=== PATIENT | male | born 1975 | race Hispanic/Latino ===

== ENCOUNTER 2018-02-18 18:05 | Emergency (ER) | payer OTHER ==
--- OUTSIDE RECORDS SUMMARY | 2018-02-18 18:07 | XMS REPORT ---
:1975 [facility] Address [address] [place] [address] Dr. Leon [address] [place] [id number] Care Team Providers Name Role Phone Unavailable Unavailable Unavailable Problems This patient has no known problems. Allergies, Adverse Reactions, Alerts This patient has no known allergies or adverse reactions. Medications This patient has no known medications.
--- OUTSIDE RECORDS SUMMARY | 2018-02-18 18:07 | XMS REPORT | Clinical Summary ---
:1975 Author Organization [facility] Address [address] [place] [address] Care Team Providers Name Role Phone Unavailable Primary Care Provider Unavailable Allergies Active Allergy Reactions Severity Noted Date Comments Promethazine 09/12/2017 Medications Not on file Active Problems Problem Noted Date ESRD (end stage renal disease) on dialysis 10/02/2017 Pre-transplant evaluation for chronic kidney disease 10/02/2017 Type 2 diabetes mellitus 10/02/2017 Hypertensive renal disease 10/02/2017 Encounters Date Type Specialty Care Team Description 11/21/2017 Marianne Walker 11/21/2017 Abstract Marianne Peralta 10/07/2017 Office Visit Transplant ESRD (end stage renal disease) on dialysis (HCC); Pre-transplant evaluation for chronic kidney disease; Type 2 diabetes mellitus with chronic kidney disease on chronic dialysis, 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 Chacon he will be here tomorrow for his appt on 10.07.17 but he will call back to get the address and directions he just left dialysis and he per patient he has not received the packet in the mail for the appt) 09/22/2017 Marianne Walker 09/12/2017 Abstract Transplant Marianne Frazier 09/12/2017 Abstract Transplant Marianne Frazier after 02/17/2017 Social History Tobacco Use Types Packs/Day Years Used Date Never Smoker Sex Assigned at Date Recorded Not on file Job Start Date Occupation Industry Not on file Not on file Not on file Travel History Travel Start Travel End No recent travel history available. Last Filed Vital Signs Vital Sign Reading Time Taken Blood Pressure - - Pulse - - Temperature - - Respiratory Rate - - Oxygen Saturation - - Inhaled Oxygen Concentration - - Weight 104.3 kg (230 lb) 09/12/2017 11:12 AM CDT Height 167.6 cm (5' 6") 09/12/2017 11:12 AM CDT Body Mass Index 37.12 09/12/2017 11:12 AM CDT Plan of Treatment Not on file Results Not on fileafter 02/17/2017 Insurance Payer Benefit Plan / Group Subscriber ID Type Phone Address MEDICARE MEDICARE A B xxxxxxxxxx Medicare [employer] xxxxxxxxxx Maps Contracted
[2018-02-18] MEDS ORDERED: ONDANSETRON 4 MG/2 ML VIAL ONE (19:12)
[2018-02-18] MEDS ORDERED: PANTOPRAZOLE 40 MG INJ ONE (19:12)
[2018-02-18 19:40] LABS: Absolute Lymphocytes (CBC) 0.8 K/uL (0.7-4.9); Absolute Monocytes 0.6 K/uL (0.1-1.3); Absolute Neutrophil 6.1 K/uL (1.8-8.0); Basophils % 0.4 % (0-1.3); Eosinophils % 4.2 % (0-4.4); Hematocrit 30.7 % (39.6-49.0); Lymphocytes % 9.9 % (15.3-44.8); MCH 26.1 pg (27.0-35.0); MCV 80.5 fL (80-100); MPV 8.4 fL (7.6-11.3); Monocytes % 7.1 % (3.3-12.3); RBC Red Blood Cell Count 3.82 M/uL (4.33-5.43)
[2018-02-18] MEDS ORDERED: LORazepam 2 MG/ML VIAL ONE (19:52)
[2018-02-18 20:04] LABS: Albumin 3.3 g/dL (3.4-5.0); Bilirubin Direct 0.2 mg/dL (0-0.2); Bilirubin Total 0.7 mg/dL (0.2-1.0); Magnesium 2.4 mg/dL (1.8-2.4); Potassium 4.6 mmol/L (3.5-5.1); Protein, Total 7.8 g/dL (6.4-8.2)
[2018-02-18 20:13] LABS: Anisocytosis 2+; Blood Morphology Comment NOTED (NOT SEEN); Platelet Estimate DECR; Polychromasia 1+; Urine White Blood Cell Casts OK
--- NOTE | 2018-02-18 20:14 | RAD REPORT ---
EXAM DESCRIPTION: Cecilia Single View02/18/2018 7:30 pm CLINICAL HISTORY: Chest pain COMPARISON: 2009 FINDINGS: Mild bilateral pulmonary opacities suspected. The heart is borderline enlarged. IMPRESSION: Mild bilateral pulmonary opacities may represent pulmonary edema or pneumonia
[2018-02-18] MEDS ORDERED: HYDRALAZINE HCL 20 MG/ML VIAL ONE (20:22)
[2018-02-18] MEDS ORDERED: cloNIDine HCl 0.1 MG TAB ONE (21:23)
--- NOTE | 2018-02-18 22:34 | ER ---
Nurse's Notes [facility] Name: Chase Chacon Jr Age: 42 yrs Sex: Male : 1975 Arrival Date: 02/18/2018 Time: 18:08 Bed 18 Private MD: Kyler Ogden Diagnosis: Nausea and vomiting;Hypertensive heart and chronic kidney disease Presentation: 02/18 18:13 Presenting complaint: Patient states: i have been throwing up since this morning, i tw2 throw up every morning with the gastroporesis i have, but today its just all day,i missed dialysis today. Transition of care: patient was not received from another setting of care. Onset of symptoms was February 18, 2018. Risk Assessment: Do you want to hurt yourself or someone else? Patient reports no desire to harm self or others. Initial Sepsis Screen: Does the patient meet any 2 criteria? No. Patient's initial sepsis screen is negative. Does the patient have a suspected source of infection? No. Patient's initial sepsis screen is negative. Care prior to arrival: None. 18:13 Method Of Arrival: Ambulatory tw2 18:13 Acuity: LEON 3 tw2 18:21 Note pt at 97% on 2L NC. tw2 Historical: - Allergies: 18:21 Phenergan; tw2 - Home Meds: 18:21 Novolog Sub-Q 10 10 UNITS AM, 15 UNITS LUNCH AND 10 UNITS AT NIGHT [Active]; tw2 - PMHx: 18:21 Diabetes - NIDDM; ESRD; Gastroparesis; Hypertension; kidney disease; tw2 - Immunization history:: Adult Immunizations. - Social history:: Smoking status: . - Ebola Screening: : Patient denies travel to an Ebola-affected area in the 21 days before illness onset. Screenin:05 Abuse screen: Denies threats or abuse. Denies injuries from another. Nutritional aa1 screening: No deficits noted. Tuberculosis screening: No symptoms or risk factors identified. Fall Risk None identified. Assessment: 19:05 General: Appears in no apparent distress. comfortable, Behavior is calm, cooperative, aa1 appropriate for age. Pain: Denies pain. Neuro: Level of Consciousness is awake, alert, obeys commands, Oriented to person, place, time, situation, Moves all extremities. Speech is normal. Cardiovascular: Denies chest pain, palpitations, shortness of breath, Heart tones S1 S2 present Rhythm is regular. Respiratory: Reports cough that is dry, Airway is patent Respiratory effort is even, unlabored, Respiratory pattern is regular, symmetrical, Breath sounds are clear bilaterally. GI: Abdomen is non-distended, Abd is soft and non tender X 4 quads. Reports nausea, vomiting. : No signs and/or symptoms were reported regarding the genitourinary system. EENT: No signs and/or symptoms were reported regarding the EENT system. Derm: Skin is intact, is healthy with good turgor, Skin is pink, warm \T\ dry. Musculoskeletal: Circulation, motion, and sensation intact. Capillary refill < 3 seconds. 19:40 Reassessment: Pt reports he is feeling anxious and would like something to help with aa1 his anxiety. States he takes Xanax at home; provider notifed. 20:10 Reassessment: Patient appears in no apparent distress at this time. Patient and/or aa1 family updated on plan of care and expected duration. Pain level reassessed. Patient is alert, oriented x 3, equal unlabored respirations, skin warm/dry/pink. BP 205/105, pt states he has not taken his BP medication today; provider notified and pt to be medicated with hydralazine IVP. 21:30 Reassessment: Patient appears in no apparent distress at this time. Patient and/or aa1 family updated on plan of care and expected duration. Pain level reassessed. Patient is alert, oriented x 3, equal unlabored respirations, skin warm/dry/pink. Pt BP remains elevated, will continue to monitor until BP at appropriate level for d/c. 22:53 Reassessment: Patient appears in no apparent distress at this time. Patient is alert, aa1 oriented x 3, equal unlabored respirations, skin warm/dry/pink. Discussed d.c \T\ f/u instructions with pt \T\ family; denies questions or concerns at this time Patient denies pain at this time. Patient states feeling better. Vital Signs: 18:19 BP 195 / 92; Pulse 96; Resp 18; Temp 98.8(O); Pulse Ox 90% on R/A; Pain 8/10; tw2 19:15 BP 199 / 99; Pulse 84; Resp 18; Pulse Ox 98% on R/A; Pain 0/10; aa1 20:10 BP 205 / 105; Pulse 85; Resp 18; Pulse Ox 96% on R/A; Pain 0/10; aa1 20:48 BP 200 / 92; Pulse 86; Resp 18; Pulse Ox 95% on R/A; Pain 0/10; aa1 21:05 BP 189 / 102; Pulse 90; Resp 16; Pulse Ox 95% on R/A; Pain 0/10; aa1 22:00 BP 169 / 90; Pulse 87; Resp 20; Pulse Ox 93% on R/A; Pain 0/10; aa1 18:19 pt placed in w/c and on o2 at this time via 2L tw2 ED Course: 18:08 Patient arrived in ED. sb2 18:08 Kyler Ogden MD is Private Physician. sb2 18:19 Triage completed. tw2 18:20 Arm band placed on Patient placed on oxygen, on pulse oximetry, Emesis basin given. tw2 18:26 Sunny Truong PA is PHCP. cp 18:26 Michael Mackey MD is Attending Physician. cp 19:01 Lisa Rosen, JENNIE is Primary Nurse. aa1 19:05 Patient has correct armband on for positive identification. Bed in low position. Call aa1 light in reach. Pulse ox on. NIBP on. Warm blanket given. 19:15 EKG done, by ED staff, reviewed by Yves Adam MD. aa1 19:20 Initial lab(s) drawn, by nh, sent to lab. Inserted saline lock: 20 gauge in right aa1 antecubital area, using aseptic technique. Blood collected. 22:31 Kyler Ogden MD is Referral Physician. cp 22:31 Referral Physician role handed off by Kyler Ogden MD cp 22:32 Rojas Mccoy DO is Referral Physician. cp 22:53 No provider procedures requiring assistance completed. IV discontinued, intact, aa1 bleeding controlled, No redness/swelling at site. Pressure dressing applied. Administered Medications: 19:20 Drug: ProTONIX 40 mg Route: IVP; Site: right antecubital; aa1 19:22 Drug: Zofran 4 mg Route: IVP; Site: right antecubital; aa1 19:45 Drug: Ativan 0.5 mg Route: IVP; Site: right antecubital; aa1 21:06 Follow up: Response: No adverse reaction; Anxiety decreased aa1 20:18 Drug: hydrALAZINE 10 mg Route: IV; Rate: bolus; Site: right antecubital; aa1 20:20 Follow up: IV Status: Completed infusion aa1 21:17 Drug: cloNIDine 0.2 mg Route: PO; aa1 22:53 Follow up: Response: No adverse reaction; Blood pressure is lowered aa1 Outcome: 22:32 Discharge ordered by . karli 22:53 Discharged to home ambulatory, with family. aa1 22:53 Condition: good 22:53 Discharge instructions given to patient, family, Instructed on discharge instructions, follow up and referral plans. medication usage, Demonstrated understanding of instructions, follow-up care, medications, Prescriptions given X 3. 22:55 Patient left the ED. aa1 Signatures: Lisa Rosen, RN RN aa1 Sunny Truong PA PA cp Wise, Tara, RN RN tw2 Marie Ortiz sb2
--- NOTE | 2018-02-18 22:34 | EDPHYS ---
Physician Documentation [facility] Name: Chase Chacon Jr Age: 42 yrs Sex: Male : 1975 Arrival Date: 02/18/2018 Time: 18:08 Bed 18 Private MD: Kyler Ogden ED Physician Michael Mackey HPI: 02/18 18:55 This 42 yrs old Male presents to ER via Ambulatory with complaints of Vomiting.cp 18:55 The patient presents to the emergency department with nausea, that is moderate, cp vomiting, that is continuous. 18:55 Onset: The symptoms/episode began/occurred this morning. Possible causes: flare up of cp bowel problem, gastroparesis. 18:55 Associated signs and symptoms: Pertinent positives: abdominal pain, nausea, vomiting, cp Pertinent negatives: constipation, diarrhea, fever, GI bleeding. Severity of symptoms: in the emergency department the symptoms are unchanged despite home interventions. The patient has experienced similar episodes in the past, multiple times. Historical: - Allergies: 18:21 Phenergan; tw2 - Home Meds: 18:21 Novolog Sub-Q 10 10 UNITS AM, 15 UNITS LUNCH AND 10 UNITS AT NIGHT [Active]; tw2 - PMHx: 18:21 Diabetes - NIDDM; ESRD; Gastroparesis; Hypertension; kidney disease; tw2 - Immunization history:: Adult Immunizations. - Social history:: Smoking status: . - Ebola Screening: : Patient denies travel to an Ebola-affected area in the 21 days before illness onset. ROS: 19:00 Constitutional: Positive for poor PO intake, Negative for body aches, chills, fever. cp 19:00 Eyes: Negative for injury, pain, redness, and discharge. cp 19:00 ENT: Negative for drainage from ear(s), ear pain, sore throat, difficulty swallowing, difficulty handling secretions. 19:00 Cardiovascular: Negative for chest pain, edema, palpitations. 19:00 Respiratory: Negative for cough, shortness of breath, wheezing. 19:00 Abdomen/GI: Positive for abdominal pain, nausea and vomiting, Negative for diarrhea, constipation, hematemesis, black/tarry stool, rectal bleeding. 19:00 Skin: Negative for cellulitis, rash. 19:00 Neuro: Negative for altered mental status, headache, syncope, weakness. 19:00 All other systems are negative. Exam: 19:10 Constitutional: The patient appears in no acute distress, alert, awake, cp non-diaphoretic, non-toxic, well developed, well nourished. 19:10 Head/Face: Normocephalic, atraumatic. cp 19:10 Eyes: Periorbital structures: appear normal, Pupils: equal, round, and reactive to light and accomodation, Extraocular movements: intact throughout, Conjunctiva: normal, no exudate, no injection, Sclera: no appreciated abnormality, Lids and lashes: appear normal, bilaterally. 19:10 ENT: External ear(s): are unremarkable, Ear canal(s): are normal, clear, TM's: dullness, bilaterally, Nose: is normal, Mouth: Lips: moist, Oral mucosa: pink and intact, moist, Posterior pharynx: is normal, airway is patent, no erythema, no exudate, Voice: is normal. 19:10 Neck: ROM/movement: is normal, is supple, without pain, no range of motions limitations, no meningismus, no nuchal rigidity. 19:10 Chest/axilla: Inspection: normal, Palpation: is normal, no crepitus, no tenderness. 19:10 Cardiovascular: Rate: normal, Rhythm: regular. 19:10 Respiratory: the patient does not display signs of respiratory distress, Respirations: normal, no use of accessory muscles, no retractions, no splinting, no tachypnea, labored breathing, is not present, Breath sounds: stridor, is not appreciated, wheezing: is not appreciated. 19:10 Abdomen/GI: Inspection: abdomen appears normal, Bowel sounds: active, all quadrants, Palpation: abdomen is soft and non-tender, in all quadrants. 19:10 Back: pain, is absent, ROM is normal. 19:10 Skin: cellulitis, is not appreciated, no rash present. 19:10 Neuro: Orientation: to person, place \T\ time. Mentation: is normal, Cerebellar function: is grossly normal, Motor: moves all fours, strength is normal, Sensation: is normal. 19:15 ECG was reviewed by the Attending Physician. cp Vital Signs: 18:19 BP 195 / 92; Pulse 96; Resp 18; Temp 98.8(O); Pulse Ox 90% on R/A; Pain 8/10; tw2 19:15 BP 199 / 99; Pulse 84; Resp 18; Pulse Ox 98% on R/A; Pain 0/10; aa1 20:10 BP 205 / 105; Pulse 85; Resp 18; Pulse Ox 96% on R/A; Pain 0/10; aa1 20:48 BP 200 / 92; Pulse 86; Resp 18; Pulse Ox 95% on R/A; Pain 0/10; aa1 21:05 BP 189 / 102; Pulse 90; Resp 16; Pulse Ox 95% on R/A; Pain 0/10; aa1 22:00 BP 169 / 90; Pulse 87; Resp 20; Pulse Ox 93% on R/A; Pain 0/10; aa1 18:19 pt placed in w/c and on o2 at this time via 2L tw2 MDM: 18:39 Patient medically screened. cp 20:00 Differential diagnosis: gastritis, pancreatitis, viral gastroenteritis, gastroenteritis.cp 22:30 Data reviewed: vital signs, nurses notes, lab test result(s). cp 22:30 Counseling: I had a detailed discussion with the patient and/or guardian regarding: the cp historical points, exam findings, and any diagnostic results supporting the discharge/admit diagnosis, lab results, to return to the emergency department if symptoms worsen or persist or if there are any questions or concerns that arise at home. Response to treatment: the patient's symptoms have markedly improved after treatment, VSS. Blood pressure improved. Vomiting resolved and patient tolerating po fluids. Will discharge to home for continued monitoring. 02/18 18:51 Order name: Basic Metabolic Panel cp 02/18 18:51 Order name: CBC with Diff cp 02/18 18:51 Order name: Creatinine for Radiology cp 02/18 18:51 Order name: Hepatic Function cp 02/18 18:51 Order name: Lipase cp 02/18 18:51 Order name: Magnesium cp 02/18 18:52 Order name: XRAY Chest (1 view) cp 02/18 19:45 Order name: CBC with Automated Diff; Complete Time: 20:24 EDMS 02/18 20:24 Interpretation: Normal except: RBC 3.82; HGB 10.0; HCT 30.7; MCV 80.5; MCH 26.1; PLT cp 132; RDW 22.4; RADHA% 78.4; LYM% 9.9. 02/18 20:06 Order name: Basic Metabolic Panel; Complete Time: 20:24 EDMS 02/18 20:25 Interpretation: Normal except: GLUC 212; BUN 52; CRE 11.40; GFR 5. cp 02/18 20:06 Order name: Liver (Hepatic) Function; Complete Time: 20:24 EDMS 02/18 20:25 Interpretation: Normal except: AST 8; ALB 3.3; GLOB 4.5; A/G 0.7. 02/18 20:06 Order name: Magnesium; Complete Time: 20:24 EDMS 02/18 20:06 Order name: Lipase; Complete Time: 20:24 EDMS 02/18 20:26 Interpretation: LIP 193; Reviewed. 02/18 20:07 Order name: Creatinine (Radiology Only); Complete Time: 20:24 EDMS 02/18 20:14 Order name: CBC Smear Scan; Complete Time: 20:24 EDMS 02/18 18:51 Order name: IV Saline Lock; Complete Time: 19:34 02/18 18:51 Order name: Labs collected and sent; Complete Time: 19:34 02/18 18:51 Order name: EKG; Complete Time: 18:52 cp 02/18 18:51 Order name: EKG - Nurse/Tech; Complete Time: 19:33 02/18 20:15 Order name: RAD; Complete Time: 20:24 EDMS EC:15 Rate is 83 beats/min. Rhythm is regular. [place] interval is normal. QRS interval is normal. cp QT interval is normal. T waves are Flattened in lead aVL. Interpreted by me. Reviewed by me. Administered Medications: 19:20 Drug: ProTONIX 40 mg Route: IVP; Site: right antecubital; aa1 19:22 Drug: Zofran 4 mg Route: IVP; Site: right antecubital; aa1 19:45 Drug: Ativan 0.5 mg Route: IVP; Site: right antecubital; aa1 21:06 Follow up: Response: No adverse reaction; Anxiety decreased aa1 20:18 Drug: hydrALAZINE 10 mg Route: IV; Rate: bolus; Site: right antecubital; aa1 20:20 Follow up: IV Status: Completed infusion aa1 21:17 Drug: cloNIDine 0.2 mg Route: PO; aa1 22:53 Follow up: Response: No adverse reaction; Blood pressure is lowered aa1 Disposition: 02/19 07:46 Co-signature as Attending Physician, Michael Mackey MD. rn Disposition: 02/18/18 22:32 Discharged to Home. Impression: Nausea and vomiting, Hypertensive heart and chronic kidney disease. - Condition is Stable. - Discharge Instructions: Hypertension, Nausea and Vomiting, Adult. - Prescriptions for Reglan 10 mg Oral Tablet - take 1 tablet by ORAL route every 6 hours take 30 minutes before meals and at bedtime; 20 tablet. Zofran 4 mg Oral Tablet - take 1 tablet by ORAL route every 12 hours As needed; 20 tablet. Protonix 40 mg Oral Tablet, Delayed Release (E.C.) - take 1 tablet by ORAL route once daily; 15 tablet. - Medication Reconciliation Form, Thank You Letter, Antibiotic Education, Prescription Opioid Use form. - Follow up: Private Physician; When: Tomorrow; Reason: Recheck today's complaints. Follow up: Kyler Ogden MD; When: Tomorrow; Reason: Recheck today's complaints. Follow up: Rojas Mccoy DO; When: Tomorrow; Reason: dialysis. - Problem is new. - Symptoms have improved. Signatures: Dispatcher [employer] EDLisa Flores RN RN aa1 Michael Mackey MD MD rn Page, Corey, PA PA cp Hafsa Hinojosa RN RN tw2 Corrections: (The following items were deleted from the chart) 02/18 22:55 22:32 02/18/2018 22:32 Discharged to Home. Impression: Nausea and vomiting; aa1 Hypertensive heart and chronic kidney disease. Condition is Stable. Forms are Medication Reconciliation Form, Thank You Letter, Antibiotic Education, Prescription Opioid Use. Follow up: Private Physician; When: Tomorrow; Reason: Recheck today's complaints. Follow up: Rojas Mccoy; When: Tomorrow; Reason: dialysis. Problem is new. Symptoms have improved. cp
--- NOTE | 2018-02-19 11:29 | EKG ---
Test Date: 2018-02-18 Test Time: 19:11:49 Load Dispatcher: TITUS MEASUREMENT RESULTS: Intervals: Rate: 83 OK: 168 QRSD: 86 QT: 398 QTc: 467 Rice: P: 17 OK: 168 QRS: -19 T: 60 INTERPRETIVE STATEMENTS: Normal sinus rhythm Normal ECG Compared to ECG 10/28/2016 13:10:52 No significant changes Electronically Signed On 02-19-18 11:27:51 MANAGER CARDIOLOGY by Jules Yadav
== END 2018-02-18 22:55 | disposition home or self-care (01) ==
LOC: ER 18:05
DX: R11.2 Nausea with vomiting, unspecified (principal); I13.11 Hypertensive heart and chronic kidney disease without heart failure, with stage 5 chronic kidney disease, or end stage renal disease; E11.22 Type 2 diabetes mellitus with diabetic chronic kidney disease; N18.6 End stage renal disease; E11.43 Type 2 diabetes mellitus with diabetic autonomic (poly)neuropathy; K31.84 Gastroparesis; Z79.4 Long term (current) use of insulin; Z99.2 Dependence on renal dialysis
CPT/HCPCS: 36415; 71045; 80048; 80076; 83690; 83735; 85025; 93005; 96374; 96375; 99284; C9113; J0360; J2405

== ENCOUNTER 2018-02-27 09:33 | Observation (INO) | payer OTHER ==
--- OUTSIDE RECORDS SUMMARY | 2018-02-27 09:38 | XMS REPORT | Clinical Summary ---
:1975 Author Organization [facility] Address [address] [place] [address] Care Team Providers Name Role Phone Unavailable [...] kidney disease on chronic dialysis, unspecified whether skilled nursing insulin use (HCC); Hypertensive renal disease 10/06/2017 [...] Frazier 09/12/2017 Abstract Transplant Marianne Frazier after 02/26/2017 Social History Tobacco Use Types Packs/Day Years [...] Not on file Results Not on fileafter 02/26/2017 Insurance Payer Benefit Plan / Group Subscriber ID Type Phone Address MEDICARE MEDICARE A B xxxxxxxxxx Medicare [employer] xxxxxxxxxx Maps Contracted
--- OUTSIDE RECORDS SUMMARY | 2018-02-27 09:49 | XMS REPORT | Continuity of Care Document ---
:1975 Author Organization Interface Problems Problem Status Onset Classification Date Comments Source Date Reported FOLLOW UP Active [address] ESRD, Active [facility] PRE-TRANSPLANT 016 Medical WORK UP Center LAB Active [address] Center UPDATE Active [address] Center F/U Active [address] BDDC/ K59.1 Active [facility] FUNCTIONAL [facility] Medical DIARRHEA; R11.2 Center BDDC-GASTRITIS; Active [facility] COLITIS [address] [place] [address] Center H/O NAUSEA AND Active [facility] VOMITING [address] [place] [address] DDC-NUTRITION Active [facility] INTIAL VISIT [address] [place] [address] Center PER TAWNYA Active [facility] C.PEPTIDE/CLAYTON [address] [place] [address] GASTROPARESIS/ PRE Active [facility] TRANSPLANT WORK UP 015 [facility] Center ESRD/ PRE Active [facility] TRANSPLANT WORK UP 015 [facility] Center Gastroparesis Active Problem 02/24/2016 Data [facility] syndrome<sup>6</rocha 015 migrated Medical p> from [facility], Centricity OPID on 09/21/14. [place] Impotence<sup>8</s Active Problem 02/24/2016 Data [place] up> 015 migrated Medical from [facility], Centricity OPID on 09/21/14. [place] Physical Active Problem 02/24/2016 Data [facility] examination 015 migrated Medical procedure<sup>10</ from [facility], sup> Centricity OPID on 09/21/14. [place] GASTROPARESIS Active Condition 09/07/2014 Medical 015 Group ERECTILE Active Condition 09/07/2014 Medical DYSFUNCTION 015 Group PHYSICAL Active Condition 09/07/2014 Medical EXAMINATION 015 Group ESRD/PRE-TRANSPLAN Active [facility] T WORKUP 015 Medical Center Discharge 08/22/2014 The Diagnosis: [address] [place] Gastroparesis Discharge 08/22/2014 The Diagnosis: Nausea [address]15 [place],M and vomiting H [facility] VOMITING Active The 015 [place],M H [facility] PHYSICAL EXAM Inactive Condition 09/07/2014 Medical 014 Group [employer] CHIEF, Active [facility] DIETARY, SW ON 014 Medical SEPTEMBER 07 Center Mixed Active Problem 02/24/2016 Data [facility] hyperlipidemia<sup 014 migrated Medical >9</sup> from [facility] Center, Centricity OPID on 08/13/14. [place] Mixed Active Problem 08/22/2014 7Data The hyperlipidemia<sup 014 migrated [place] >7</sup> from [facility] Centricity on 08/13/14. HYPERLIPIDEMIA - Active Condition 09/07/2014 [facility] MIXED 014 Group PRE-OP CV EXAM Active Condition 09/07/2014 Medical 014 Group UPDATE VISIT Active [address] 789.06 Active The 014 [place] ABD PAIN, VOMITING Active The 014 [place] Final: Unspecified 05/29/2013 [facility] Gastritis and [address] [place] [address] Gastroduodenitis, Center without Mention of Hemorrhage NAUSEA, VOMITING Active Greater 014 [facility] [place] ABDOMINAL PAIN, Active Greater INTRACTABLE 014 [facility] VOMITING WIT Discharge 05/13/2013 Greater Diagnosis: 014 [facility] [place] Gastroparesis VOMITTING Active Greater [place]14 [place] TRANSPLANT EVAL Active The 014 [place] LABS Active [address] RENAL TRANSPLANT Active [facility] WK UP [address] [place] [address] PRE CLINIC Active [address] CARDIAC CLEARANCE/ Active [facility] KIDNEY [place]/ [address] [place] [address] ADROGUR Center 414.00 - COR ATH Active OPID UNSP VS [address] [place] [address], OPID Sp OPID [place] V72.83 Active [facility] [address] [place] RENAL/DONOT USE Active [facility] FOR CHARGES F/C 013 Medical NOTES ON Center PRE TRANSPLANT Active [facility] EVAL 013 Medical Center Anemia of chronic Active Problem 02/24/2016 Data [facility] renal 013 migrated Medical failure<sup>1</sup from [facility], > Centricity OPID on 08/13/14. [facility] Chronic renal Active Problem 02/24/2016 Data [facility] failure 013 migrated Medical syndrome<sup>2</rocha from [facility], p> Centricity OPID on 08/13/14. [facility] RENAL FAILURE, Active Condition 09/07/2014 Medical CHRONIC 013 Group ANEMIA IN CHRONIC Active Condition 09/07/2014 [facility] KIDNEY DISEASE 013 Group Cough<sup>3</sup> Active Problem 02/24/2016 Data [facility] 013 migrated Medical from [facility], Centricity OPID on 08/13/14. [facility] Diabetic renal Active Problem 02/24/2016 Data [facility] disease<sup>4</sup 013 migrated Medical > from [facility], Centricity OPID on 08/13/14. [facility] Type 2 diabetes Active Problem 02/24/2016 Data [facility] mellitus<sup>11</s 013 migrated Medical up> from [facility], Centricity OPID on 08/13/14. [place] Type 2 diabetes Active Problem 08/22/2014 8Data The mellitus<sup>8</rocha 013 migrated [place] p> from [facility] on 08/13/14. DIAB W/O COMP TYPE Active Condition 09/07/2014 Medical II/UNS NOT STATED 013 Group UNCNTRL DIAB W/RENAL Active Condition 09/07/2014 Medical MANIFESTS TYPE 013 Group II/UNS NOT UNCNTRL COUGH Active Condition 09/07/2014 Medical 013 Group Diabetic Active Problem 02/24/2016 Data [facility] retinopathy<sup>5< 012 migrated Medical /sup> from [facility], Centricity OPID on 08/13/14. [place],[facility] Hypertensive Active Problem 02/24/2016 Data [facility] disorder<sup>7</rocha 012 migrated Medical p> from [facility], Centricity OPID on 08/13/14. [place] Hypertensive Active Problem 08/22/2014 6Data The disorder<sup>6</rocha 012 migrated [place] p> from [facility] Centricity on 08/13/14. DIABETIC Active Condition 09/07/2014 Medical RETINOPATHY 012 Group HYPERTENSION Active Condition 09/07/2014 Medical 012 Group [address]47, 585.9, Active 11229 012 [place] Diabetes mellitus Resolved Problem 10/31/2012 [facility], OPID [place],M H [place],M H [place] HTN - Hypertension Resolved Problem 10/31/2012 [facility], OPID [place],M H [place],M [facility] [place] Renal failure Resolved Problem 10/31/2012 [facility], OPID [place],M H [place],M H [place] Bladder wall Active Problem 03/31/2015 [facility], [place],[facility] OPID [place] Diabetes mellitus Active Problem 02/24/2016 [facility] type II [facility], [place], H OPID [place] Diverticulitis Active Problem 02/24/2016 [facility] Gastroparesis Active Problem 02/24/2016 [facility] GERD - Active Problem 02/24/2016 [facility] Gastro-esophageal [facility], reflux disease [facility] Hypertensive Active Problem 02/24/2016 [facility] nephrosclerosis [facility], [place],[facility] OPID [place] Kidney transplant Active Problem 02/24/[address] [facility], [place],[facility] OPID [place] Diverticulitis Active Problem 08/22/2014 [facility] Gastroparesis Active Problem 08/22/2014 [facility] GERD - Active Problem 08/22/2014 [facility] Gastro-esophageal [facility], reflux disease [place] Diabetes mellitus Active Problem 07/12/2013 [facility] Dialysis regime Active Problem 09/02/2013 [facility] ESRD - End stage Active Problem 09/02/2013 [facility] renal disease [facility] HTN - Hypertension Active Problem 07/12/2013 [facility] Renal failure Active Problem 09/02/2013 [facility] End stage renal Active Problem 02/24/2016 [facility], DIPAK [place],[facility] Final: 05/29/2013 [facility] GASTROPARESIS [facility] Final: Diabetes 05/29/2013 [facility] mellitus without Medical mention of Center complication, type II or unspecified type, not stated as uncontrolled Final: 05/29/2013 [facility] Center Disease, Unspecified, with Chronic Kidney Disease Stage V or End Stage Renal Disease Final: End Stage 05/29/2013 [facility] Renal Disease [facility] Final: Renal 05/29/2013 [facility] Dialysis Status Medical Center Final: 05/29/2013 [facility] Tachycardia, Medical Unspecified Center Diabetes mellitus Active Problem 05/29/2013 [facility] Dialysis regime Active Problem 05/29/2013 [facility] ESRD - End stage Active Problem 05/29/2013 [facility] renal disease [facility] HTN - Hypertension Active Problem 05/29/2013 [facility] Renal failure Active Problem 05/29/2013 [facility] Obesity Active Problem 02/24/2016 [facility], DIPAK [place] Diverticulitis Active Problem 05/07/2015 [facility] OPID [place] Gastroparesis Active Problem 05/07/2015 [facility] OPID [place] GERD - Active Problem 05/07/2015 [facility]-esophageal [facility] reflux disease OPID [place] Bladder wall Active Problem 02/24/2016 [facility], DIPAK [place] CHRONIC KIDNEY DIS Active [facility] [place] PRE-PROCEDURE LAB Active [facility] ABDMNAL PAIN Active [facility] EPIGASTRIC [place] END STAGE RENAL Active [facility] POSS TB Active [facility] MEDICAL SERVICES Active [facility] NOT AVAILABLE IN Medical HOME Center CHRONIC KIDNEY Active [facility] DISEASE, STAGE 5 Medical [place] END STAGE RENAL Active [facility] ENCNTR FOR GENERAL Active [facility] ADULT MEDICAL EXAM Medical W/ Center ENCOUNTER FOR Active [facility] PREPROCEDURAL Medical LABORATORY E Center Medications Medication Details Route Status Patient Ordering Order Source Instructions Provider Date rifaximin 550 MG 550 mg=1 tab, Active [place] Oral Tablet PO, TID, # 42 2014 Medical [XIFAXAN] tab, 0 Center Refill(s), Pharmacy: [facility] oral 240 mL, PO, Active [place] powder for Q15Min, jug for 2015 Medical reconstitution colonoscopy, # Center 1 ea, 0 Refill(s), Pharmacy: [facility] Ondansetron 4 MG 4 mg=1 tab, PO, Active [facility] Oral Tablet Q12H, X 30 day, 2014 Medical [Zofran] # 60 tab, 1 Center Refill(s), Pharmacy: [facility] omeprazole 20 mg 20 mg=1 cap, Active [facility] oral delayed PO, BID, # 60 2014 Medical release capsule cap, 1 Center Refill(s), Pharmacy: [facility] CALCIUM ACETATE one cap tid Active Medical 667 MG CAPS with meals 2014 Group Ondansetron 4 MG 4 mg=1 tab, PO, Active The Disintegrating BID, PRN Nausea 2014 [place] Tablet [Zofran] and Vomiting, Dissolve tab under tongue, X 5 day, # 10 tab, 0 Refill(s), Pharmacy: [facility] Instructions: Dissolve tab under tongue calcium acetate 2,001 mg=3 cap, Active The 667 MG Oral PO, TID, 0 2014 [place] Capsule [Phoslo] Refill(s) BD INSULIN use as directed Active 05/19[facility] Medical SYRINGE 2013 Group HALF-UNIT 31G X 16" 0.3 ML MISC BD PEN NEEDLE use as directed Active Medical SHORT U/F 31G X 2013 Group 8 MM MISC APIDRA 100 inject 10units No Longer Medical UNIT/ML SOLN in the am, Active 2013 Group 15units at lunch,and 10 units in the evening BD PEN NEEDLE use as directed Active Medical SHORT U/F 31G X 2013 Group 8 MM MISC heparin 1,000 unit, 1 Inactive 05/14[facility] Greater mL, Route: IV, 2013 Drug form: INJ, During Dialysis, PRN Dialysis, Start date: 05/14/13 14:41:00, Duration: 30 day, Stop date: 06/13/13 15:40:00 albumin human 25 gm, 100 mL, Inactive [facility] Route: IV, Drug 2013 form: INJ, During Dialysis, PRN Dialysis, Start date: 05/14/13 14:41:00, Duration: 30 day, Stop date: 06/13/13 15:40:00Lot #: Mfg: (Same as: Plasbumin-25) "blood product derivative" Procrit 10,000 unit, 1 Inactive Greater mL, Route: IV, 2013 Drug form: INJ, PRN, PRN Dialysis, Start date: 05/14/13 14:40:00, Duration: 30 day, Stop date: 06/13/13 15:39:00(Same as: Procrit) epoetin jasmeet 10,000 unit/1 ml VL Sodium Chloride 1,000 mL, Inactive Greater 0.9% IV Route: IV, 2013 Start date: 05/14/13 14:39:00, Duration: 30 day, Stop date: 06/13/13 15:38:00, PRN Dialysis Phenergan 12.5 mg, Route: Inactive [facility] IM, ONCE, 2013 Dosing Weight 88.636, kg, Start date: 05/14/13 9:45:00, Stop date: 05/14/13 9:45:00 Lipitor 20 mg, 1 tab, Inactive Route: PO, Drug 2013 form: TAB, Daily, Dosing Weight 88.636, kg, Start date: 05/14/13 9:00:00, Duration: 30 day, Stop date: 06/12/13 9:00:00(Same As: Lipitor) Lantus 18 unit, Route: Inactive Greater SUB-Q, Bedtime, 2013 Dosing Weight 88.636, kg, Start date: 05/13/13 21:00:00, Duration: 30 day, Stop date: 06/11/13 21:00:00 Levemir FlexPen 18 unit, 0.18 No Longer Greater mL, Route: Active 2013 SUB-Q, Drug form: INJ, Bedtime, Start date: 05/13/13 21:00:00, Duration: 30 day, Stop date: 06/11/13 21:00:00Same as Levemir "single patient use only" Lisinopril 30 mg, 3 tab, No Longer Greater Route: PO, Drug Active 2013 form: TAB, BID, Dosing Weight 88.636, kg, Start date: 05/13/13 17:00:00, Duration: 30 day, Stop date: 06/12/13 9:00:00(Same as: Prinivil, Zestril) Erythromycin 250 250 mg, 6.25 Inactive Greater MG Enteric mL, Route: PO, 2013 Coated Tablet Drug form: SUSP, Q12H, Dosing Weight 88.636, kg, Start date: 05/13/13 14:00:00, Duration: 30 day, Stop date: 06/12/13 9:00:00(Same as: E.E.S.-200) Eddie-Tab 250 mg, 1 tab, No Longer Greater Route: PO, Drug Active 2013 form: ECTAB, Q12H, Start date: 05/13/13 14:00:00, Duration: 30 day, Stop date: 06/12/13 9:00:00(Same as: Eddie-Tab) Give With Food "Do Not Crush" Metoclopramide 10 mg, 1 tab, No Longer Greater 10 MG Oral Route: PO, Drug Active 2013 Tablet [Reglan] form: TAB, QID, Dosing Weight 88.636, kg, Start date: 05/13/13 13:00:00, Duration: 30 day, Stop date: 06/12/13 9:00:00(Same as: Reglan) Take 30 min before meals calcium acetate 2,001 mg, 3 No Longer Greater 667 MG Oral cap, Route: PO, Active 2013 Capsule Drug form: CAP, TID-Meals, Dosing Weight 88.636, kg, Start date: 05/13/13 12:00:00, Duration: 30 day, Stop date: 06/12/13 8:00:00Same as Phoslo Gel Cap Phenergan 25 mg, 1 supp, No Longer Greater Route: MN, Drug Active 2013 form: SUPP, Q6H, Dosing Weight 88.636, kg, PRN as needed for nausea/vomiting , Start date: 05/13/13 10:07:00, Duration: 30 day, Stop date: 06/12/13 10:06:00(Same as: Phenergan) Zofran ODT 4 mg, 1 tab, No Longer Greater Route: PO, Drug Active 2013 form: TABDIS, BID, Dosing Weight 88.636, kg, PRN as needed for nausea/vomiting , Start date: 05/13/13 10:07:00, Duration: 30 day, Stop date: 06/12/13 10:06:00(Same as: Zofran ODT) Reglan 5 mg, 0.5 tab, No Longer Greater Route: PO, Drug Active 2013 form: TAB, QID-Before Meals, Dosing Weight 88.636, kg, PRN as needed for nausea/vomiting , Start date: 05/13/13 10:07:00, Duration: 30 day, Stop date: 06/12/13 10:06:00(Same as: Reglan) Take 30 min before meals Acetaminophen 2 tab, Route: No Longer Greater 325 MG / PO, Drug Form: Active 2013 Hydrocodone TAB, Dosing Bitartrate 5 MG Weight 88.636, Oral Tablet kg, Q4H, PRN as [[place] 5/325] needed for pain, Start date: 05/13/13 10:06:00, Duration: 30 day, Stop date: 06/12/13 10:05:00(Same as: [place] 325/5) Do not exceed 4gm/day of acetaminophen. NovoLog sliding scale, Active Greater 0 Refill(s) 2013 Glucagon 1 mg, Route: No Longer Greater IM, Drug form: Active 2013 PDR/INJ, PRN, Dosing Weight 88.636, kg, PRN Blood Glucose Results, Start date: 05/13/13 9:12:00, Duration: 30 day, Stop date: 06/12/13 10:11:00 Dextrose 50% 25 gm, 50 mL, No Longer Greater Syringe Route: IVP, 2013 Drug Form: INJ, Dosing Weight 88.636, kg, PRN, PRN Blood Glucose Results, Start date: 05/13/13 9:12:00, Duration: 30 day, Stop date: 06/12/13 10:11:00 Protonix 40 mg, Route: No Longer Greater IVP, Drug form: 2013 [facility] INJ, BID-Before Meals, Dosing Weight 79.545, kg, Priority: STAT, Start date: 05/12/13 22:58:00, Duration: 30 day, Stop date: 06/11/13 16:30:00For IV push reconstitute with 10 ml 0.9% sodium chloride and push over 2 minutes. (Same as: Protonix) Phenergan 25 mg, 1 mL, No Longer Greater Route: IVPB, 2013 Q6H, Dosing Weight 79.545, kg, PRN as needed for nausea/vomiting , Priority: STAT, Start date: 05/12/13 22:58:00, Duration: 30 day, Stop date: 06/11/13 22:57:00Do not give IV push. (Same as: Phenergan) Reglan 10 mg, 2 mL, No Longer Greater Route: IVP, 2013 Drug form: INJ, Q6H, Dosing Weight 79.545, kg, PRN as needed for nausea/vomiting , Priority: STAT, Start date: 05/12/13 22:58:00, Duration: 30 day, Stop date: 06/11/13 22:57:00(Same as: Reglan) Morphine 4 mg, 1 mL, No Longer Greater Route: IVP, 2013 Drug form: INJ, Q3H, Dosing Weight 79.545, kg, PRN Pain Score 4-6, Start date: 05/12/13 22:58:00, Duration: 30 day, Stop date: 06/11/13 22:57:00(Same as:MORPhine Sulfate) Ondansetron 4 mg, 2 mL, No Longer Greater Route: IVP, Active 2013 Drug form: INJ, Q8H, Dosing Weight 79.545, kg, PRN Nausea & Vomiting, Start date: 05/12/13 22:58:00, Duration: 30 day, Stop date: 06/11/13 22:57:00(Same as: Zofran) Phenergan 25 mg, Route: Inactive Greater IM, ONCE, 2013 Dosing Weight 79.545, kg, Priority: STAT, Start date: 05/12/13 19:51:00, Stop date: 05/12/13 19:51:00 Dilaudid 1 mg, Route: Inactive Greater IV, ONCE, 2013 Dosing Weight 79.545, kg, Start date: 05/12/13 19:51:00, Stop date: 05/12/13 19:51:00 Protonix 40 mg, Route: Inactive Greater IVP, ONCE, 2013 Dosing Weight 79.545, kg, Priority: STAT, Start date: 05/12/13 19:51:00, Stop date: 05/12/13 19:51:00 Saline Flush 5 mL, Route: No Longer Greater 0.9% IVP, Drug Form: Active 2013 INJ, Dosing Weight 79.545, kg, PRN, PRN Line Flush, Start date: 05/12/13 18:20:00, Duration: 24 hr, Stop date: 05/13/13 18:19:00(Same as: BD Posiflush) Morphine 4 mg, 1 mL, Inactive Greater Route: IVP, 2013 Drug form: INJ, ONCE, Dosing Weight 79.545, kg, Priority: STAT, Start date: 05/12/13 18:20:00, Stop date: 05/12/13 18:20:00(Same as:MORPhine Sulfate) Ondansetron 4 mg, 2 mL, Inactive Route: IVP, 2013 Drug form: INJ, ONCE, Dosing Weight 79.545, kg, Priority: STAT, Start date: 05/12/13 18:20:00, Stop date: 05/12/13 18:20:00(Same as: Zofran) Metoclopramide 10 mg, 2 mL, Inactive Greater Route: IVP, 2013 Drug form: INJ, ONCE, Dosing Weight 79.545, kg, Priority: STAT, Start date: 05/12/13 18:20:00, Stop date: 05/12/13 18:20:00(Same as: Reglan) NS (Bolus) IV 500 mL, Rate: Inactive Greater 500 mL 500 ml/hr, 2013 Infuse over: 1 hr, Route: IV, Dosing Weight 79.545 kg, Total Volume: 500, Priority: STAT, Start date: 05/12/13 18:20:00, Duration: 1 doses or times, Stop date: 05/12/13 19:19:00, Bolus DoseBolus Dose Promethazine =1 supp, MN, On Hold Greater Hydrochloride 25 Q6H, Nausea & 2013 MG Rectal Vomiting, # 15 Suppository supp, 0 [Phenergan] Refill(s) Acetaminophen 2 tab, PO, Q4H, On Hold Greater 325 MG / for pain, # 30 2013 Hydrocodone tab, 0 Bitartrate 5 MG Refill(s) Oral Tablet [[place] 5/325] Omnipaque 300 100 mL, 200 Inactive Greater ml/hr, Route: 2013 IV, Drug Form: SOLMya ONCYIN, Start date: 05/11/13 17:00:00, Duration: 30 day, Stop date: 06/10/13 17:59:00(Same as:Omnipaque 300). Reglan 10 mg, Route: Inactive Greater IVP, ONCE, 2013 Dosing Weight 8.636, kg, Start date: 05/11/13 16:43:00, Stop date: 05/11/13 16:43:00 Morphine 4 mg, Route: Inactive Greater IVP, Drug form: 2013 INJ, ONCE, Dosing Weight 8.636, kg, Priority: STAT, Start date: 05/11/13 16:43:00, Stop date: 05/11/13 16:43:00 Hydralazine 20 mg, 1 mL, Inactive MH Greater Route: IVP, 2013 Drug form: INJ, ONCE, Dosing Weight 8.636, kg, Priority: STAT, Start date: 05/11/13 15:27:00, Stop date: 05/11/13 15:27:00(Same as: Apresoline) Push over 5 minutes Zofran 4 mg, 2 mL, Inactive [facility] Route: IV, Drug 2013 [facility] form: INJ, ONCE, Dosing Weight 8.636, kg, PRN Nausea, Start date: 05/11/13 15:26:00(Same as: Zofran) Morphine 4 mg, 1 mL, Inactive [facility] Route: IVP2013 [facility] Drug form: INJ, ONCE, Dosing Weight 8.636, kg, Priority: STAT, Start date: 05/11/13 15:26:00, Stop date: 05/11/13 15:26:00(Same as:MORPhine Sulfate) Metoclopramide 10 mg=1 tab, Active [place] 10 MG Oral PO, QID, # 28 2013 Medical Tablet [Reglan] tab, 0 Center Refill(s) Morphine 4 mg, 1 mL, Inactive [facility] Route: IV, Drug 2013 Medical form: INJ, Center ONCE, Dosing Weight 88.636, kg, Priority: STAT, Start date: 05/08/13 17:10:00, Stop date: 05/08/13 17:10:00(Same as:MORPhine Sulfate) Reglan 10 mg, 2 mL, Inactive [facility] Route: IVP2013 Medical Drug form: INJ, Center ONCE, Dosing Weight 88.636, kg, Priority: STAT, Start date: 05/08/13 17:09:00, Stop date: 05/08/13 17:09:00(Same as: Reglan) Promethazine 25 mg=1 tab, Active [place] Hydrochloride 25 PO, Q4H, 2014 Medical MG Oral Tablet Nausea, # 20 Center [Phenergan] tab, 0 Refill(s) Ondansetron 4 MG 4 mg=1 tab, PO, Active [place] Disintegrating BID, Nausea and 2014 Medical Tablet [Zofran] Vomiting, Center Dissolve tab under tongue, # 20 tab, 0 Refill(s)Dissol ve tab under tongue Famotidine 40 MG 20 mg, 1 tab, Inactive [facility] Oral Tablet Route: PO, Drug 2013 Medical [Pepcid] form: TAB, Center ONCE, Dosing Weight 88.636, kg, Start date: 05/08/13 15:12:00, Stop date: 05/08/13 15:12:00(Same as: Pepcid) GI cocktail 30 mL, Route: Inactive [facility] PO, Drug Form: 2013 Medical SUSP, Dosing Center Weight 88.636, kg, ONCE, STAT, Start date: 05/08/13 15:12:00, Stop date: 05/08/13 15:12:00G.I. Cocktail=antaci d with simethicone 22.5 mL - lidocaine viscous 7.5 mL Morphine 4 mg, 1 mL, Inactive [facility] Route: IVP, 2013 Medical Drug form: INJ, Center ONCE, Dosing Weight 88.636, kg, Priority: STAT, Start date: 05/08/13 15:07:00, Stop date: 05/08/13 15:07:00(Same as:MORPhine Sulfate) Zofran ODT 4 mg, 1 tab, Inactive [facility] Route: PO, Drug 2013 Medical form: TABDIS, Center ONCE, Dosing Weight 88.636, kg, Priority: STAT, Start date: 05/08/13 15:06:00, Stop date: 05/08/13 15:06:00(Same as: Zofran ODT) Reglan 10 mg, 2 mL, Inactive [facility] Route: IVP2013 Medical Drug form: INJ, Center ONCE, Dosing Weight 88.636, kg, Priority: STAT, Start date: 05/08/13 13:59:00, Stop date: 05/08/13 13:59:00(Same as: Reglan) Morphine 4 mg, 1 mL, Inactive [facility] Route: IVP2013 Medical Drug form: INJ, Center ONCE, Dosing Weight 88.636, kg, Priority: STAT, Start date: 05/08/13 13:23:00, Stop date: 05/08/13 13:23:00(Same as:MORPhine Sulfate) NS (Bolus) IV 500 mL, Rate: Inactive [facility] 500 mL 500 ml/hr, 2013 Medical Infuse over: 1 Center hr, Route: IV, Dosing Weight 88.636 kg, Total Volume: 500, Priority: STAT, Start date: 05/08/13 13:19:00, Duration: 1 doses or times, Stop date: 05/08/13 14:18:00, Bolus DoseBolus Dose Phenergan 25 mg, Route: Inactive [facility] IVPB, ONCE, 2013 Medical Dosing Weight Center 88.636, kg, Priority: STAT, Start date: 05/08/13 13:19:00, Stop date: 05/08/13 13:19:00 Ondansetron 4 mg, Route: Inactive [facility] IVP, Drug form: 2013 Medical INJ, ONCE, Center Dosing Weight 88.636, kg, Priority: STAT, Start date: 05/08/13 13:15:00, Stop date: 05/08/13 13:15:00 NOVOLOG 100 inject Active Medical UNIT/ML SOLN 10-15units tid 2012 Group with meals sc NOVOLOG 100 inject Active Medical UNIT/ML SOLN 10-15units tid 2012 Group with meals sc hydrALAZINE 10 mg, Route: IV No Longer Chelsey Bobby IV, ONCE, Active 2012 Medical Dosing Weight Center 90.909, kg, Start date: 09/02/12 19:11:00, Stop date: 09/02/12 19:11:00 Saline Flush 5 ml, Route: IVP No Longer Chelsey [place] 0.9% IVP, Drug Form: Active 2012 Medical INJ, Dosing Center Weight 90.909, kg, Q12H, Start date: 09/02/12 9:00:00, Duration: 30 day, Stop date: 10/01/12 21:00:00 Saline Flush 5 ml, Route: IVP No Longer Chelsey [place] 0.9% IVP, Drug Form: Active 2012 Medical INJ, Dosing Center Weight 90.909, kg, PRN, PRN Line Flush, Start date: 09/02/12 6:18:00, Duration: 30 day, Stop date: 10/02/12 6:17:00 Apidra SoloStar 10 units, SUB-Q Active [place] Pen 100 units/mL SUB-Q, 2012 Medical subcutaneous TID-Before Center solution Meals, 10 unit in qam, 15 unit noon, 10 unit qpm, Substitution Allowed, INJ10 unit in qam, 15 unit noon, 10 unit qpm Lipitor 20 mg 20 mg, 1 tab, PO Active [place] oral tablet PO, Daily, 90 2012 Medical tab, Center Substitution Allowed, TAB calcium acetate PO, TID, with PO Active [place] 667 mg oral meals, 2012 Medical capsule Substitution Center Allowed, CAPwith meals Phenergan 25 mg 25 mg, 1 tab, PO Active Rinkle The oral tablet PO, Q4H, PRN, 2012 [place] 15 tab, Nausea, Substitution Allowed Apidra Substitution Active The Allowed 2012 [place] Lantus Substitution Active The Allowed 2012 [place] Sodium Chloride 1,000 mL, Rate: IV No Longer Rinkle The 0.9% (Bolus) IV 1,000 ml/hr, Active 2012 [place] 1,000 mL Infuse over: 1 hr, Route: IV, kg, Total Volume: 1,000, Priority: STAT, Start date: 06/23/12 7:08:00, Duration: 1 doses or times, Stop date: 06/23/12 8:07:00 Saline Flush 5 mL, Route: IVP No Longer [place] 0.9% IVP, Drug Form: Active 2012 [place] INJ, Dosing Weight 90.909, kg, PRN, PRN Line Flush, Start date: 06/23/12 7:08:00, Duration: 24 hr, Stop date: 06/24/12 7:07:00 promethazine 12.5 mg, 50 mL, IVPB No Longer [place] The Route: IVPB, Active 2012 [place] Drug form: SOLN, ONCE, Dosing Weight 90.909, kg, Priority: STAT, Start date: 06/23/12 7:08:00, Stop date: 06/23/12 7:08:00 ondansetron 4 mg, 2 mL, IVP No Longer [place] The Route: IVP, Active 2012 [place] Drug form: INJ, ONCE, Dosing Weight 90.909, kg, Priority: STAT, Start date: 06/23/12 7:08:00, Stop date: 06/23/12 7:08:00 ZITHROMAX Z-COLLEEN Take 2 tab po No Longer Medical 250 MG TABS qd for first Active 2012 Group day then 1 tab po qd thereafter clonidine 100 microgram, IVP No Longer Lewis 1 mL, Route: Active 2011 [facility] IVP, Drug form: INJ, ONCE, Start date: 03/03/12 9:30:00, Stop date: 03/03/12 9:30:00 Sodium Chloride 250 mL, Rate: IV No Longer George 0.9% IV 250 mL 100 ml/hr, Active 2011 [facility] Infuse over: 2.5 hr, Route: IV, kg, Total Volume: 250, Start date: 03/03/12 7:50:00, Duration: 30 day, Stop date: 04/02/12 7:49:00 lidocaine 0.1 mL, Route: IV No Longer Friend IV, Drug form: Active 2011 [facility] INJ, ONCALL, Start date: 03/03/12 5:00:00, Duration: 1 doses or times Lactated Ringers 1,000 mL, Rate: IV No Longer Friend Injection IV 100 ml/hr, Active 2011 [facility] 1,000 mL Infuse over: 10 hr, Route: IV, kg, Total Volume: 1,000, Start date: 03/03/12 5:00:00, Duration: 1 doses or times, Stop date: 03/03/12 14:59:00 cefazolin + 1 gm, Route: IVPB No Longer Lewis Sodium Chloride IVPB, PRE OP, Active 2011 [facility] 0.9% IV 100 mL Start date: 03/03/12 5:00:00, Duration: 1 doses or times REGLAN 10 MG 1 po qd prn No Longer Medical TABS Active 2011 Group ACCU-CHEK FERNANDA Test 3 times a Active Medical STRP day. 2011 Group LANTUS SOLOSTAR 18 units at Active Medical 100 UNIT/ML SOLN bedtime sc 2011 Group APIDRA 100 10 -15 units No Longer 12/05/ Medical UNIT/ML SOLN tid with meals Active 2011 Group REGLAN 10 MG prn No Longer Medical TABS Active 2011 Group LIPITOR 20 MG 1 po qd No Longer Medical TABS Active 2011 Group LISINOPRIL 30 MG 1 tablet orally Active Medical TABS twice a week on 2011 Group Friday and LANTUS SOLOSTAR 18 units at Active 12/05/ Medical 100 UNIT/ML SOLN bedtime sc 2011 Group LIPITOR 20 MG 1 po qd Active Medical TABS 2011 Group LISINOPRIL 30 MG 1 po qd Active Medical TABS 2011 Group Allergies, Adverse Reactions, Alerts Substance Category Reaction Severity Reaction Status Date Comments Source type Reported Immunizations Immunization Date Site Status Last Updated Comments Source Given Hx pneumococcal completed [facility] vaccine 3 [facility] [place],[facility] Hx pneumococcal completed [facility] vaccine 3 [facility] [place],[facility] Hx pneumococcal completed [facility] vaccine 3 [facility] [place], [facility] [place] Hx influenza completed [facility] vaccine-unspecifi [address] [place] [address],[facility] Hx influenza completed [facility] vaccine-unspecifi 3 [facility] [place],[facility] Hx influenza completed [facility] vaccine-unspecifi [address] [place] [address], ed [facility] [place] Results Order Name Results Value Reference Date Interpretation Comments Source Range Abdomen/Pe Abdomen/Pelv EXAM: CT ABDOMEN AND PELVIS WITHOUT CONTRAST - [facility] wo IV is wo IV /2015 - Medical contrast contrast CT This report was dictated by a Back Up Worker /Fellow. I have personally reviewed the images as Center CT well as the Resident's interpretation and agree with the findings. 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 Axial, coronal and sagittal reconstructions. IV contrast: None. Enteric contrast: None. DLP: 897 mGy-cm FINDINGS: Lines, tubes and hardware: None. Lower thorax: Clear. Liver: Normal. Biliary tree: No intra- or extrahepatic biliary ductal dilation. Gallbladder: Normal. No CT evidence of gallstones. Pancreas: Normal. Spleen: Normal. Adrenals: Normal. Kidneys and ureters: Both kidneys are atrophic. Bladder: The bladder is decompressed. Reproductive organs: No CT abnormality. Gastrointestinal tract: Normal caliber. A small hiatal hernia is present. Scattered diverticula present in the descending and sigmoid colon without evidence of diverticulitis. Appendix: Normal. Peritoneum, mesentery and retroperitoneum: Normal. No free air, ascites or loculated fluid. Lymph nodes: Normal. Vasculature: There is atherosclerotic calcification of the abdominal aorta , celiac trunk and branches, SMA, and SANJUANITA. There is extensive circumferential calcification of bilateral external iliac arteries. Bones: No acute abnormality. Soft tissues: Normal. IMPRESSION: Moderate to severe atheromatous calcification of bilateral external iliac arteries. Chest 2 Chest 2 EXAM: XR PA AND LATERAL CHEST 01/22 - [place] views DX views DX [facility] DATE: 01/22/2017 Read by: Amberly Brooks MD Dictated Date/time: 01/23/16 08:56 Electronically Signed by: Amberly Brooks MD 01/23/16 08:58 FINAL REPORT INDICATION: Renal transplant workup., Comparison is made with 09/20/2014 FINDINGS: The heart is not enlarged. Costophrenic sulci are sharp. No pleural effusion and no pneumothorax. The lungs are clear except for some platelike atelectasis at the left lung base. Lung volumes are low IMPRESSION: 1. The heart is not enlarged. 2. platelike atelectasis at the left lung bases accentuated by low lung volumes. 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 COMPARISON: CT abdomen pelvis 05/11/2013 and CXR 09/20/2014 TECHNIQUE: Frontal views of the abdomen were obtained. FINDINGS: Lines and tubes: None. Lower thorax: Unremarkable where visualized. Bowel: Nonobstructive bowel gas pattern. Large colonic stool burden. A linear radiopaque structure measuring approximately 1.9 cm projects over the left upper quadrant. This structure was not present on 09/2014. Solid organs: No abnormal mass or organomegaly seen. Calcifications: Pelvic phleboliths. Bones: Normal. IMPRESSION: 1. Nonobstructive bowel gas pattern. Large colonic stool burden. 2. A radiopaque linear structure projecting over the left upper quadrant. Please correlate with clinical history of swallowed objects vs possible camera pill. Stomach Stomach EXAM: Gastric Emptying Study. 12/22 - [place] emptying emptying - [facility] This report was dictated by a Back Up Worker/Fellow. I have personally reviewed the images as Center well as the Resident's interpretation and agree with the findings. DATE: 12/22/2014 at 08:58 hours. Read by: Sebastian Jiménez MD Resident: Sebastian Jiménez MD Dictated Date/time: 12/22/14 14:42 Electronically Signed by: Yoli Owusu MD 12/22/14 15:29 FINAL REPORT INDICATION: Diarrhea and nausea, evaluate for gastric emptying. TECHNIQUE: After oral administration of 1.9 mCi of Tc 99m DTPA in the 100 mL of lactulose, sequential static images were obtained through approximately 120 minutes. Additional delayed static image at 3 hours was obtained. FINDINGS: Tracer is seen in the stomach with gradual progress to the small bowel during the time of the study. The tracer is visualized in the cecum at approximately 67 minutes into the study (average normal friend sit time for lactulose is \\R\\56 min +/- 20 min). IMPRESSION: Good tracer progress throughout the small bowel with approximate small bowel transit time of 67 minutes. Upper GI Upper GI EXAM: FLUOROSCOPY UPPER GI SINGLE CONTRAST 11/[address] [facility] OPID series DX series - [place] INDICATION: See Clinic Indication . Read by: Stef Albert MD Dictated Date/time: 11/08/14 12:52 Electronically Signed by: Stef Albert MD 11/08/14 12:55 FINAL REPORT COMPARISON: None. TECHNIQUE Upper GI examination was performed by giving the patient barium contrast orally using single contrast technique. Multiple spot post contrast radiographs were obtained. FLUOROSCOPY TIME: 2.6 minutes. FINDINGS: The patient swallowed oral barium contrast without difficulties and exhibited mild esophageal dysmotility as evidenced by tertiary contractions and primary contractile wave delay. Contrast passes readil y through the gastroesophageal junction. There is a small hiatal hernia. Stomach appears normal and there is normal gastric contractility with prompt passage of contrast into a normal appearing duodenal bulb and c-loop. No mucosal irregularities, filling defects, obstruction, extrinsic compression or significant gastroesophageal reflux. IMPRESSION: 1. Small hiatal hernia. 2. Mild esophageal dysmotility. Retroperit Retroperiton EXAM: US RENAL 09/27 - [facility] eal Complete /2014 - Medical Complete US This report was dictated by a Back Up Worker/Fellow. I have personally reviewed the images as Center US well as the Resident's interpretation and agree with the findings. DATE: September 27, 2014 at 0734 hour. Read by: Pia Steen MD Resident: Pia Steen MD Dictated Date/time: 09/27/14 13:07 Electronically Signed by: Fidel Stewart MD 09/27/14 16:46 FINAL REPORT INDICATION: Endstage renal disease, pretransplant workup. ADDITIONAL INFORMATION: None. COMPARISON: Retroperitoneal ultrasound dated March 2008. TECHNIQUE: Multiplanar grayscale and color Doppler ultrasound images of the kidneys and urinary bladder were obtained. FINDINGS: Kidneys are normal in shape and position without masses, hydronephrosis or cortical thinning. There is increase echogenicity of the bilateral kidneys. Right kidney is 9.3 x 5.2 x 5.0 cm and left is 10.1 x 5.5 x 5.2 cm. No renal calculi or echogenic focus noted. Urinary bladder appears normal. IMPRESSION: 1. Echogenic bilateral kidneys consistent with medical renal disease. No evidence of obstructive uropathy. REFERENCE Test Name HLA TYPING 09/20 [place] LAB /2014 Medical RESULTS Center [place]FER[place] [facility] [place] 1 09/20 Result [facility] LAB Test /2014 Comment: Medical RESULTS (09/20/14 4:37 PM) Reference lab Center results scanned in [facility]. Results displayed in [id number] LAB-Outside Lab Documents (Imaged) under date/time results were scanned. Report sent for scanning on 10/12/2014. Chest 2 Chest 2 Chest pa and lateral September 20, 201409/20 - [facility] views DX views DX /2014 - [facility] HISTORY: Renal transplant workup. Comparison is made with August 19. Read by: Amberly Brooks MD Dictated Date/time: 09/20/14 10:42 Electronically Signed by: Amberly Brooks MD 09/20/14 11:30 FINAL REPORT FINDINGS: The heart is not enlarged. There is no pleural effusion and no pneumothorax. The lungs are clear. CONCLUSION: The lungs are clear. CARDIAC Troponin-I null 0.00 - 08/19 3Interpretive Data: Clinical studies have indicated that TROPONIN I at or above The ENZYMES 0.40 0.4 ng/ml is associated with a high probability of clinical [place] significance. CHEM PANEL Lipase Lvl 125 unit/L 73 - 393 08/19 [place] CHEM PANEL B/C Ratio 4 6 - 25 08/19 [place] CHEM PANEL AGAP 12.5 meq/L 10.0 - 08/19 The 20.0 [place] CHEM PANEL A/G Ratio 0.7 0.7 - 1.6 08/19 [place] CHEM PANEL Globulin 4.6 g/dL 2.0 - 4.0 08/19 [place] CHEM PANEL eGFR 14 08/19 1Result Comment: The eGFR is calculated using the CKD-EPI formula. In most young, healthy individuals the eGFR will be >90 mL/ min/1.73m2. The eGFR declines with age. An eGFR of 60-89 may be normal in The mL/min/1.7 /2014 some populations, particularly the elderly, for whom the CKD-EPI formula has not been extensively validated. Use of the eGFR is not recommended in the following populations: [place] 3m2 Individuals with unstable creatinine concentrations, including patients and those with serious co-morbid conditions. Patients with extremes in muscle mass or diet. The data above are obtained from the National Kidney Disease Education Program (NKDEP) which additionally recommends that when the eGFR is used in patients with extremes of body mass index for purposes of drug dosing, the eGFR should be multiplied by the estimated BMI. CHEM PANEL Potassium 3.5 meq/L 3.5 - 5.1 06/05 [facility] The Lvl [place] CHEM PANEL Chloride Lvl 100 meq/L 95 - 109 06/05 The [place] CHEM PANEL CO2 30 meq/L 24 - 32 06/ The [place] CHEM PANEL Albumin Lvl 3.1 g/dL 3.5 - 5.0 06/05 The [place] CHEM PANEL Calcium Lvl 8.0 mg/dL 8.5 - 10.5 06/ The [place] CHEM PANEL Creatinine 4.9 mg/dL 0.5 - 1.4 06/05 The Lvl [place] CHEM PANEL Sodium Lvl 139 meq/L 135 - 145 06/ The [place] CHEM PANEL BUN 21 mg/dL 7 - 22 08/19 The [place] CHEM PANEL Glucose Lvl 80 mg/dL 70 - 99 06/ 2Interpretive Data: Adult reference range values reflect the clinical guidelines MH The of the [place] [employer]. [place] CHEM PANEL ALT 13 unit/L 0 - 65 06/ The [place] CHEM PANEL Total 7.7 g/dL 6.4 - 8.4 / The Protein [place] CHEM PANEL Bili Total 0.5 mg/dL 0.2 - 1.3 / The [place] CHEM PANEL AST 8 unit/L 0 - 37 06/ The [place] CHEM PANEL Alk Phos 58 unit/L 39 - 136 06/ The [place] HEMATOLOGY Monocytes # 1.1 K/CMM 0.0 - 0.8 06/05 The [place] HEMATOLOGY Eosinophils 0.1 K/CMM 0.0 - 0.5 06/05 The # [place] HEMATOLOGY Monocytes 13.6 % 2.0 - 12.0 06/05 The [place] HEMATOLOGY Segs 74.1 % 45.0 - 06/05 The 75.0 [place] HEMATOLOGY Lymphocytes 11.5 % 20.0 - 06/05 The 40.0 [place] HEMATOLOGY Lymphocytes 1.0 K/CMM 1.0 - 5.5 06/05 The # [place] HEMATOLOGY Basophils 0.2 % 0.0 - 1.0 08/19 The [place] HEMATOLOGY Segs-Bands # 6.2 K/CMM 1.5 - 8.1 08/19 The [place] HEMATOLOGY Eosinophils 0.6 % 0.0 - 4.0 08/19 The [place] HEMATOLOGY Hgb 11.4 g/dL 14.0 - 08/19 The 18.0 [place] HEMATOLOGY Hct 34.0 % 42.0 - 08/19 The 54.0 [place] HEMATOLOGY WBC 8.4 K/CMM 3.7 - 10.4 08/19 The [place] HEMATOLOGY RBC 3.62 M/CMM 4.70 - 08/19 The 6.10 [place] HEMATOLOGY Platelet 179 K/CMM 133 - 450 08/19 The [place] HEMATOLOGY MCV 94.0 fL 80.0 - 08/19 The 94.0 [place] HEMATOLOGY MCH 31.4 pg 27.0 - 08/19 The 31.0 [place] HEMATOLOGY MCHC 33.4 g/dL 32.0 - 08/19 The 36.0 [place] HEMATOLOGY MPV 7.4 fL 7.4 - 10.4 08/19 The [place] HEMATOLOGY RDW 13.9 % 11.5 - 08/19 The 14. [place] URINE AND UA Protein >=300 Negative 08/19 The STOOL mg/dL mg/dL /2014 [place] URINE AND UA Amorph Few /HPF None Seen 08/19 The STOOL Gianna /HPF /2014 [place] URINE AND UA Mucus Few /LPF None Seen 08/19 The STOOL /LPF /2014 [place] URINE AND UA Bacteria None Seen None Seen 08/19 The STOOL /2014 [place] (08/19/14 4:19 PM) URINE AND UA RBC None Seen 0 - 2 08/19 The STOOL /2014 [place] (08/19/14 4:19 PM) URINE AND UA WBC None Seen None Seen 08/19 The STOOL /2014 [place] (08/19/14 4:19 PM) URINE AND UA Sq Epi None Seen Few 08/19 The STOOL /2014 [place] (08/19/14 4:19 PM) URINE AND Micro? Yes 08/19 The STOOL [place] (08/19/14 4:19 PM) URINE AND UA Leuk Est Negative Negative 08/19 The STOOL [place] (08/19/14 4:19 PM) URINE AND UA Nitrite Negative Negative 08/19 The STOOL [place] (08/19/14 4:19 PM) URINE AND UA 0.2 EU/dL 0.1 - 1.0 08/19 The STOOL Urobilinogen /2014 [place] URINE AND UA Blood Moderate Negative 08/19 The STOOL [place] *ABN* (08/19/14 4:19 PM) URINE AND UA Bili Small Negative 08/19 The STOOL [place] *ABN* (08/19/14 4:19 PM) URINE AND UA Ketones Negative Negative 08/19 The STOOL [place] *NA* (08/19/14 4:19 PM) URINE AND UA Glucose 250 mg/dL Negative 08/19 The STOOL mg/dL [place] URINE AND UA pH 6.0 5.0 - 8.0 08/19 The STOOL [place] URINE AND UA Spec Grav >=1.030 <=1.030 08/19 The [place] *ABN* (08/19/14 4:19 PM) URINE AND UA Turbidity Clear Clear 08/19 The STOOL [place] (08/19/14 4:19 PM) URINE AND UA Color STRAW 08/19 The [place] Chest 2 Chest 2 NAME: MARTY BASS 08/[address] [facility] The views DX views DX [facility] : 1975 SEX: M Ordering Physician: Taras Wheeler Read by: Alejandro Appiah MD Dictated Date/time: 08/19/14 16:45 Chest 2 views : Aug 19, 2014 04:42:00 PM. Electronically Signed by: Alejandro Appiah MD 08/19/14 16:45 FINAL REPORT CLINICAL INDICATION: Coughing / See Clinic Indication Comparison Examination: 09/10/2013. FINDINGS: PA and lateral views of the chest were performed. Heart size is within normal limits. No confluent infiltrate or mass. No pleural effusion or pneumothorax. No acute osseous abnormality. IMPRESSION: 1. No acute process identified in the chest. SL: 24 Chest 2 Chest 2 Name: MARTY BASS 09/10 - The views views /2013 [facility] : 1975 Read by: Jostin Lew MD Dictated Date/time: 09/10/13 17:16 Ordering Physician: Otis Robertson Electronically Signed by: Jostin Lew MD 09/10/13 17:19 FINAL REPORT Chest 2 views : Sep 10, 2013 05:14:00 PM. CLINICAL INDICATION: POSITIVE TB SKIN TEST REASON FOR EXAM: 105 Comparison Examination: Chest x-ray August 02, 2013. FINDINGS: PA and lateral chest radiographs show normal lung volumes without consolidation, edema, pleural effusions or pneumothorax. The cardiomediastinal contours are normal. There are no clinically significant osseous abnormalities noted. IMPRESSION: No active disease is seen. No change is seen from the chest x-ray August 02, 2013. SL:53 Abdomen Abdomen NAME: MARTY BASS 08/[address] [facility] The complete complete US /2013 [facility] US : 1975 SEX: M Ordering Physician: Mamadou Sy Read by: Alejandro Appiah MD Dictated Date/time: 08/24/13 11:26 Abdomen complete US : Aug 24, 2013 10:11:00 AM. Electronically Signed by: Alejandro Appiah MD 08/24/13 11:28 FINAL REPORT CLINICAL INDICATION: ESRD / See Clinic Indication Comparison Examination: 06/28/2013. FINDINGS: Liver demonstrates mildly increased echogenicity suggesting fatty infiltration. No focal hepatic masses. No intrahepatic biliary ductal dilatation. Gallbladder appears normal without stones or wall thickening. Common bile duct is normal measuring 3 mm. Right kidney measures 9.3 cm in length. Left kidney measures 10.1 cm in length. Mildly increased echogenicity of both kidneys. No solid renal masses or hydronephrosis. No echogenic foci to suggest renal calculi. The pancreas is not well-seen secondary to bowel gas. The spleen measures 10.1 cm in greatest dimension. The visualized abdominal aorta and IVC appear within normal limits. IMPRESSION: 1. Mildly increased echogenicity of both kidneys suggesting medical renal disease. No solid renal masses or hydronephrosis. 2. Mild fatty infiltration of the liver. SL: 24 ANEMIA Transferrin 172 mg/dL 212 - 360 08/02 The STUDY /2014 [place] ANEMIA Iron 109 ug/dl 45 - 160 08/02 The [place] CHEM PANEL eGFR 8 08/02 1Result Comment: The eGFR is calculated using the CKD-EPI formula. In most young, healthy individuals the eGFR will be >90 mL/ min/1.73m2. The eGFR declines with age. An eGFR of 60-89 may be normal in The mL/min/1.7 some populations, particularly the elderly, for whom the CKD-EPI formula has not been extensively validated. Use of the eGFR is not recommended in the following populations: [place] 3m2 Individuals with unstable creatinine concentrations, including patients and those with serious co-morbid conditions. Patients with extremes in muscle mass or diet. The data above are obtained from the National Kidney Disease Education Program (NKDEP) which additionally recommends that when the eGFR is used in patients with extremes of body mass index for purposes of drug dosing, the eGFR should be multiplied by the estimated BMI. CHEM PANEL Albumin Lvl 3.6 g/dL 3.5 - 5.0 08/02 [place] CHEM PANEL ALT 30 unit/L 0 - 65 08/02 [place] CHEM PANEL AST 21 unit/L 0 - 37 08/02 [place] CHEM PANEL Alk Phos 60 unit/L 39 - 136 08/02 The [place] CHEM PANEL Bili Total 0.4 mg/dL 0.2 - 1.3 08/02 The [place] CHEM PANEL Total 7.5 g/dL 6.4 - 8.4 08/02 The Protein [place] CHEM PANEL Calcium Lvl 8.6 mg/dL 8.5 - 10.5 08/02 The [place] CHEM PANEL Potassium 4.8 meq/L 3.5 - 5.1 08/02 The Lvl [place] CHEM PANEL Chloride Lvl 107 meq/L 95 - 109 08/02 The [place] CHEM PANEL CO2 24 meq/L 24 - 32 08/02 The [place] CHEM PANEL Sodium Lvl 140 meq/L 135 - 145 08/02 [place] CHEM PANEL Creatinine 7.7 mg/dL 0.5 - 1.4 08/02 The Lvl [place] CHEM PANEL Glucose Lvl 67 mg/dL 70 - 99 08/02 2Interpretive Data: Adult reference range values reflect the clinical guidelines of the [place] [employer]. [place] CHEM PANEL BUN 77 mg/dL 7 - 22 08/02 [place] CHEM PANEL AGAP 13.8 meq/L 10.0 - 08/02 The 20. [place] CHEM PANEL B/C Ratio 10 6 - 25 08/02 [place] CHEM PANEL A/G Ratio 0.9 0.7 - 1.6 08/02 [place] CHEM PANEL Globulin 3.9 g/dL 2.0 - 4.0 08/02 [place] CHEM PANEL Phosphorus 5.7 mg/dL 2.5 - 4.5 08/02 [place] CHEM PANEL LDH 180 unit/L 98 - 192 08/02 [place] CHEM PANEL HSV 1 IgM NEGATIVE 08/02 [place] CHEM PANEL HSV 2 IgM NEGATIVE 08/02 3Result Comment: REFERENCE RANGE: NEGATIVE [place] The IFA procedure for measuring IgM antibodies to HSV 1 and HSV 2 detects both type-common and type- specific HSV antibodies. Thus, IgM reactivity to both HSV 1 and HSV 2 may represent crossreactive HSV antibodies rather than exposure to both HSV 1 and HSV 2. This test was developed and its performance characteristics have been determined by [facility]. Performance characteristics refer to the analytical performance of the test. Test Performed at: [facility] [address] [place] [address] Elana Neumann MD CHEM PANEL Uric Acid 7.0 mg/dL 3.8 - 8.0 08/02 [place] DRUG Cutoff See Note 5, 6 08/02 6Interpretive Data: Cutoff (lowest detectable by EIA) values for Serum Drugscreen: The SCREEN THC and PCP: 1 ng/mL [place] (08/02/13 10:30 AM) All others: 20 ng/mL Cutoff (lowest detectable by GC/MS) value for confirmation: THC and PCP: 1 ng/mL Benzodiazepines: 5 ng/ml All others: 10 ng/ml Test performed by [facility] [address] [place] [id number] DRUG Propoxyphn Negative Negative 08/02 The SCREEN Scr [place] (08/02/13 10:30 AM) DRUG PCP Scr Negative Negative 08/02 MH The SCREEN /2013 [place] (08/02/13 10:30 AM) DRUG Methadone Negative Negative 08/02 MH The SCREEN Scr [place] (08/02/13 10:30 AM) DRUG Cocaine Scr Negative Negative 08/02 MH The [place] (08/02/13 10:30 AM) DRUG Cannab Scr Negative Negative 08/02 MH The SCREEN [place] (08/02/13 10:30 AM) DRUG Benzodiaz Negative Negative 08/02 MH The SCREEN Scr [place] (08/02/13 10:30 AM) DRUG Martine Scr Negative Negative 08/02 MH The [place] (08/02/13 10:30 AM) DRUG Amph Scr Negative Negative 08/02 MH The [place] (08/02/13 10:30 AM) DRUG Opiate Scr Negative Negative 08/02 MH The [place] (08/02/13 10:30 AM) HEMATOLOGY MPV 8.1 fL 7.4 - 10.4 08/02 The [place] HEMATOLOGY Platelet 186 K/CMM 133 - 450 08/02 [place] HEMATOLOGY MCV 92.9 fL 80.0 - 08/02 The 94.0 [place] HEMATOLOGY MCHC 34.2 g/dL 32.0 - 08/02 The 36.0 [place] HEMATOLOGY MCH 31.8 pg 27.0 - 08/02 The 31. [place] HEMATOLOGY RDW 14.2 % 11.5 - 08/02 The 14. [place] HEMATOLOGY RBC 3.45 M/CMM 4.70 - 08/02 The 6.10 [place] HEMATOLOGY Hct 32.1 % 42.0 - 08/02 The 54.0 [place] HEMATOLOGY Hgb 11.0 g/dL 14.0 - 08/02 The 18. [place] HEMATOLOGY WBC 9.3 K/CMM 3.7 - 10.4 08/02 [place] HEMATOLOGY PTT 28.9 s 22.9 - 08/02 20Interpretiv The 35.8 e Data: [place] Heparin Therapeutic Range: 57 - 92 Seconds HEMATOLOGY INR 0.87 0.85 - 05/19 19Interpretive Data: RECOMMENDED RANGES FOR PROTIME INR: [facility] 04.02 2.0-3.0 for most medical and surgical thromboembolic states. [place] 2.5-3.5 for artificial heart valves and recurrent embolism. INR SHOULD BE USED ONLY FOR PATIENTS ON STABLE ANTICOAGULANT THERAPY. HEMATOLOGY PT 11.8 s 12.0 - 08/02 The 14.7 [place] HEMATOLOGY Basophils # 0.0 K/CMM 0.0 - 0.2 08/02 [place] HEMATOLOGY Monocytes # 0.6 K/CMM 0.0 - 0.8 08/02 The [place] HEMATOLOGY Eosinophils 0.2 K/CMM 0.0 - 0.5 08/02 The [place] HEMATOLOGY Lymphocytes 2.3 K/CMM 1.0 - 5.5 08/02 The [place] HEMATOLOGY Basophils 0.3 % 0.0 - 1.0 08/02 The [place] HEMATOLOGY Segs-Bands # 6.2 K/CMM 1.5 - 8.1 08/02 [place] HEMATOLOGY Lymphocytes 24.2 % 20.0 - 08/02 The 40.0 [place] HEMATOLOGY Monocytes 6.9 % 2.0 - 12.0 08/02 [place] HEMATOLOGY Eosinophils 1.9 % 0.0 - 4.0 08/02 The [place] HEMATOLOGY Segs 66.7 % 45.0 - 08/02 The 75.0 [place] IMMUNOLOGY HSV 1 IgG null <=0.8 AI 08/02 14Interpretive Data: Antibody Index (AI) Results Interpretation ------- [place] 0.0-0.8 Negative No detectable IgG Antibody. 0.9-1.0 Equivocal Repeat testing suggested in 10-14 days. >=1.10 Positive Indicates presence of detectable IgG Antibody. IMMUNOLOGY HSV 2 IgG 3.8 AI <=0.8 AI 08/02 15Interpretive Data: Antibody Index (AI) Results Interpretation ------- [place] 0.0-0.8 Negative No detectable IgG Antibody. 0.9-1.0 Equivocal Repeat testing suggested in 10-14 days. >=1.10 Positive Indicates presence of detectable IgG Antibody. IMMUNOLOGY Varicella 0.49 08/02 13Result Comment: Reference range: < or =0.90 The IgM /2013 [place] Interpretive criteria: 0.00-0.90 Negative 0.91-1.09 Equivocal > or=1.10 Positive Results from any one IgM assay should not be used as a sole determinant of a current or recent infection. Because an IgM test can yield false positive results and low levels of IgM antibody may persist for more than 12 months post infection, reliance on a single test result could be misleading. If an acute infection is suspected, consider obtaining a new specimen and submit for both IgG and IgM testing in two or more weeks. Test Performed at: [facility] [address] [place] [address] Elana Neumann MD IMMUNOLOGY Varicella 2.4 AI <=0.8 AI 08/02 12Interpretive Data: Antibody Index (AI) Results Interpretation The IgG ------- [place] 0.0-0.8 Negative No detectable IgG Antibody. 0.9-1.0 Equivocal Repeat testing suggested in 10-14 days. >=1.10 Positive Indicates presence of detectable IgG Antibody. IMMUNOLOGY Quantiferon NEGATIVE NEGATIVE 08/02 16Result Comment: Negative test result. M. tuberculosis complex The - TB Gold infection unlikely. [place] IMMUNOLOGY NIL 0.02 08/02 The [iU]/mL [place] IMMUNOLOGY Mitogen - null 08/02 The NIL /2013 [place] IMMUNOLOGY TB - NIL 0.00 08/02 17Result Comment: The Nil tube value is used to determine if the patient MH The [iU]/mL has a preexisting immune response which could cause a [place] false-positive reading on the test. In order for a test to be valid, the Nil tube must have a value of less than or equal to 8.0 IU/mL. The mitogen control tube is used to assure the patient has a healthy immune status and also serves as a control for correct blood handling and incubation. It is used to detect false-negative readings. The mitogen tube must have a gamma interferon value of greater than or equal to 0.5 IU/mL higher than the value of the Nil tube. The TB antigen tube is coated with the M. tuberculosis specific antigens. For a test to be considered positive, the TB antigen tube value minus the Nil tube value must be greater than or equal to 0.35 IU/mL. For additional information, please refer to http://education.ZPower/faq/QFT (This link is being provided for informational/ educational purposes only.) Test Performed at: [facility] [address] [address] DAGO TORRES M.D. IMMUNOLOGY Hep Bs Ab null <=7.4 08/02 18Interpretive Data: <=7.4 mIU/mL- -------Negative for Anti-HBs. Not immune to HBV infection. [facility] mIU/mL [place] 7.5-12.4 mIU/mL--Borderline for Anti-HBs and immune status should be further assessed by considering other factors such as clinical status follow-up testing, associated risk factors, and the use of additional diagnostic information. >12.4 mIU/mL-------Positive for Anti-HBs. Immune to HBV infection IMMUNOLOGY RPR Non Reactive Non 08/02 The Reactive [place] (08/02/13 10:30 AM) IMMUNOLOGY CMV IgG Reactive Non 08/02 The Reactive [place] *ABN* (08/02/13 10:30 AM) IMMUNOLOGY EBV VCA IgM null <=0.8 AI 08/02 11Interpretive Data: Antibody Index (AI) Results Interpretation ------- [place] 0.0-0.8 Negative No detectable IgM Antibody. 0.9-1.0 Equivocal Repeat testing suggested in 10-14 days. >=1.10 Positive Significant level of detectable IgM Antibody, indicative of current or recent infection. IMMUNOLOGY Hep B Core Negative Negative 08/02 The Ab [place] *NA* (08/02/13 10:30 AM) IMMUNOLOGY HIV 1/2 Ab Negative Negative 08/02 [place] *NA* (08/02/13 10:30 AM) IMMUNOLOGY Hep Bs Ag Negative Negative 08/02 [place] *NA* (08/02/13 10:30 AM) IMMUNOLOGY EBV VCA IgG null <=0.8 AI 08/02 10Interpretive Data: Antibody Index (AI) Results Interpretation ------- [place] 0.0-0.8 Negative No detectable IgG Antibody. 0.9-1.0 Equivocal Repeat testing suggested in 10-14 days. >=1.10 Positive Indicates presence of detectable IgG Antibody. IMMUNOLOGY Hep C Ab Negative Negative 08/02 [place] *NA* (08/02/13 10:30 AM) IMMUNOLOGY CMV IgM 0.3 S/CO 08/02 9Interpretive Data: Reference Ranges : Non-reactive: <0.9 S/CO Ratio [place] Indeterminate: 0.9 - 1.0 S/CO Ratio Reactive: >=1.1 S/CO Ratio LIPIDS LDL 108 mg/dL <=99 mg/dL 08/02 The (Calculated) [place] LIPIDS Chol 178 mg/dL <=199 08/02 The mg/dL [place] LIPIDS Trig 58 mg/dL <=149 08/02 The mg/dL [place] LIPIDS HDL 58 mg/dL >=61 mg/dL 08/02 [place] LIPIDS VLDL 12 08/02 [place] LIPIDS CHD Risk 3.07 4.00 - 08/02 The 7. [place] LIPIDS LDL Direct 120 mg/dL <=99 mg/dL 08/02 [place] MOLECULAR BK Virus PCR Negative Negative 08/02 The DIAGNOSTIC Qnt [place] (08/02/13 10:30 AM) MOLECULAR Source BK Plasma 08/02 The DIAGNOSTIC Virus PCR [place] Qnt MOLECULAR BK Virus PCR null 08/02 21Interpretive Data: Analytic Quantification Range: 100-400,000,000 copies/mL (2.0-8.6 log) The DIAGNOSTIC Qnt (log) [place] BK DNA detected below 100 copies/mL will be resulted as "BK DNA detected, less than 100 copies/mL." No target BK DNA detected will be reported as "BK DNA not detected. " A negative result does not rule out the possibility of the presence of the BK virus. The specimen may contain BK below the detectable limits of the assay. The BK Virus is a DNA virus belonging to the polyomaviruses. The BK Virus assay targets a 274 base pair region of the BK virus genome. This assay utilizes analyte specific (ASR) reagents for Real-Time nucleic acid amplification (PCR). Results should not be used as the sole basis for clinical diagnosis, treatment or patient management. Performance characteristics have been verified by the [facility] within [facility]. The [facility] is authorized under the Clinical Laboratory Improve ment Amendments of 1988 (CLIA-88) to perform high complexity testing. PARASITOLO Strongyloide NEGATIVE 08/02 22Result Comment: REFERENCE RANGE: NEGATIVE The GY - s Antibodies [place] SEROLOGY Strongyloides stercoralis is a parasitic nematode found in tropical and subtropical regions. Because of low larval densities in feces, stool examination is a relatively insensitive diagnostic test; antibody detection offers increased sensitivity. Patients with latent infections who are immunosuppressed or receiving immunosuppressive therapy are at risk of life-threatening hyperinfection. Significant crossreactivity may be observed in other helminth infections. Test Performed at: [facility] [address] [place] [address] Elana Neumann MD PARATHYROI PTH Intact 260.8 11.1 - 08/02 The D PROFILE pg/mL 79.5 [place] SPECIAL PSA 0.60 ng/mL 0.00 - 08/02 4Interpretive Data: 0-4 ng/ml is clinically accepted reference range from the The CHEMISTRY 4. [place] [employer] in 1997 for Total PSA. [place] A PSA value in the range of 0.1 to 0.6 ng/mL is indeterminate if being used as an indicator of recurrent or residual disease. SPECIAL Hgb A1C 6.6 % <=5.6 % 08/02 The CHEMISTRY /2013 [place] TOXICOLOGY [employer] 367 ATP 08/02 8Interpretive Data: Reference Range: [facility] ng/mL /2013 Low Immune Cell Response <=225 ATP Level ng/mL [place] Moderate Immune Cell Response 226-524 ATP Level ng/mL Strong Immune Cell Response >=525 ATP Level ng/mL Note: This is a qualitative assay. Therefore the result does not directly quantify the level of immunosuppression. These results should be used in conjunction with clinical presentation, medical history, and other clinical indicators when establishing the immune status of a patient. This test has been cleared or vira roved for diagnostic use by the U.S. Food and Drug Administration. [employer] (R) is a trademark of [employer]. Chest 2 Chest 2 Name: MARTY BASS 08/[address] [facility] The views [facility] : 1975 Read by: Bill Bhagat MD Dictated Date/time: 08/02/13 14:22 SEX: M Electronically Signed by: Bill Bhagat MD 08/02/13 14:24 FINAL REPORT Ordering Physician: Pascale Merritt Chest 2 views : August 02, 2013 02:14:00 PM. CLINICAL INDICATION: End stage renal disease. Comparison Examination: None FINDINGS: PA and lateral chest radiographs show normal lung volumes without consolidation, edema, pleural effusions or pneumothorax. The cardiomediastinal contours are normal. No acute skeletal abnormality. IMPRESSION: No acute cardiopulmonary abnormality. SL: 24 [place] Gallbladder NAME: MARTY BASS 07/[address] [facility] The r scan scan HIDA w /2013 [place] HIDA w meds [place] : 1975 SEX: M [facility] Ordering Physician: Robbi Dwyer Read by: Gabriel Barrera MD Dictated Date/time: 07/10/13 11:49 Electronically Signed by: Gabriel Barrera MD 07/10/13 11:50 FINAL REPORT Gallbladder scan HIDA with meds (NM) : Jul 10, 2013 11:12:00 AM. CLINICAL INDICATION: Abdominal pain, acute. Comparison Examination: None. FINDINGS: Hepatobiliary scan is performed using 5 mCi of Tc-99m Choletec and 1800 nanograms of Cholecystokinin used for the pharmacokinetics portion of the exam. There is prompt hepatic uptake and excretion with progression of the radiotracer through a non dilated biliary tree and into small bowel. Gallbladder filling is first noted at 15 minutes past radiotracer injection. After Cholecystokinin infusion, the patient experienced no pain. The pharmacokinetics portion of the exam shows gallbladder ejection fraction of 94.5 %. (GB ejection fraction - normal greater than 50%, indeterminate 35-50%, abnormal <35%) OPINION: 1. Normal hepatobiliary scan and gallbladder ejection fraction. SL: 23 IMMUNOLOGY Hep B Core Negative Negative 05/14 [facility] *NA* (05/14/2013 14:05:00 [facility]) IMMUNOLOGY Hep Bs Ab null <=7.4 05/14 7Interpretive Data: <=7.4 mIU/mL-- ------Negative for Anti-HBs. Not immune to HBV infection. mIU/mL [facility] 7.5-12.4 mIU/mL--Borderline for Anti-HBs and immune status should be further assessed by considering other factors such as clinical status follow-up testing, associated risk factors, and the use of additional diagnostic information. >12.4 mIU/mL-------Positive for Anti-HBs. Immune to HBV infection IMMUNOLOGY Hep Bs Ag Negative Negative 05/14 [facility] *NA* (05/14/2013 14:05:00 [facility]) CHEM PANEL BUN 39 mg/dL 7 - 05/14 [facility] CHEM PANEL Glucose Lvl 121 mg/dL 70 - 99 05/14 4Interpretive Data: Adult reference range values reflect the clinical guidelines of the [place] [employer]. [facility] CHEM PANEL AGAP 13.9 meq/L 10.0 - 05/14 20.0 [facility] CHEM PANEL Potassium 3.9 meq/L 3.5 - 5.1 05/14 Lvl [facility] CHEM PANEL Chloride Lvl 98 meq/L 95 - 109 05/14 [facility] CHEM PANEL Calcium Lvl 8.3 mg/dL 8.5 - 10.5 05/14 [facility] CHEM PANEL CO2 30 meq/L 24 - 32 05/14 [facility] CHEM PANEL Sodium Lvl 138 meq/L 135 - 145 05/14 [facility] CHEM PANEL Creatinine 8.9 mg/dL 0.5 - 1.4 05/14 MH Greater Lvl [facility] CHEM PANEL eGFR 7 05/14 1Result Comment: The eGFR is calculated using the CKD-EPI formula. In most young, healthy individuals the eGFR will be >90 mL/ min/1.73m2. The eGFR declines with age. An eGFR of 60-89 may be normal in Greater mL/min/1.7 some populations, particularly the elderly, for whom the CKD-EPI formula has not been extensively validated. Use of the eGFR is not recommended in the following populations: [place] 3m2 Individuals with unstable creatinine concentrations, including patients and those with serious co-morbid conditions. Patients with extremes in muscle mass or diet. The data above are obtained from the National Kidney Disease Education Program (NKDEP) which additionally recommends that when the eGFR is used in patients with extremes of body mass index for purposes of drug dosing, the eGFR should be multiplied by the estimated BMI. CHEM PANEL eGFR 11 05/13 2Result Comment: The eGFR is calculated using the CKD-EPI formula. In most young, healthy individuals the eGFR will be >90 mL/ min/1.73m2. The eGFR declines with age. An eGFR of 60-89 may be normal in Greater mL/min/1.7 some populations, particularly the elderly, for whom the CKD-EPI formula has not been extensively validated. Use of the eGFR is not recommended in the following populations: [facility] 3m2 Individuals with unstable creatinine concentrations, including patients and those with serious co-morbid conditions. Patients with extremes in muscle mass or diet. The data above are obtained from the National Kidney Disease Education Program (NKDEP) which additionally recommends that when the eGFR is used in patients with extremes of body mass index for purposes of drug dosing, the eGFR should be multiplied by the estimated BMI. CHEM PANEL CO2 31 meq/L 24 - 32 05/13 MH [facility] CHEM PANEL AGAP 9.6 meq/L 10.0 - 05/13 Greater .0 [facility] CHEM PANEL Chloride Lvl 99 meq/L 95 - 109 05/13 [facility] CHEM PANEL Calcium Lvl 8.3 mg/dL 8.5 - 10.5 05/13 [facility] CHEM PANEL Glucose Lvl 109 mg/dL 70 - 99 05/13 5Interpretive Data: Adult reference range values reflect the clinical guidelines of the [place] [employer]. [facility] CHEM PANEL BUN 19 mg/dL 7 - 22 05/13 CHEM PANEL Potassium 3.6 meq/L 3.5 - 5.1 05/13 [facility] CHEM PANEL Sodium Lvl 136 meq/L 135 - 145 05/13 CHEM PANEL Creatinine 6.0 mg/dL 0.5 - 1.4 05/13 HEMATOLOGY Basophils 0.5 % 0.0 - 1.0 05/13 [facility] HEMATOLOGY Segs-Bands # 6.8 K/CMM 1.5 - 8.1 05/13 HEMATOLOGY Eosinophils 1.4 % 0.0 - 4.0 05/13 HEMATOLOGY Monocytes 6.6 % 2.0 - 12.0 05/13 HEMATOLOGY Lymphocytes 3.3 K/CMM 1.0 - 5.5 05/13 [facility] HEMATOLOGY Monocytes # 0.7 K/CMM 0.0 - 0.8 05/13 [facility] HEMATOLOGY Basophils # 0.1 K/CMM 0.0 - 0.2 05/13 HEMATOLOGY Eosinophils 0.2 K/CMM 0.0 - 0.5 05/13 [facility] HEMATOLOGY Segs 61.9 % 45.0 - 05/13 75.0 [facility] HEMATOLOGY Lymphocytes 29.6 % 20.0 - 05/13 40.0 [facility] HEMATOLOGY RDW 14.3 % 11.5 - 05/13 Greater 14. [facility] HEMATOLOGY Platelet 198 K/CMM 133 - 450 05/13 [facility] HEMATOLOGY MPV 7.5 fL 7.4 - 10.4 05/13 [facility] HEMATOLOGY MCHC 33.1 g/dL 32.0 - 05/13 36.0 HEMATOLOGY MCH 30.6 pg 27.0 - 05/13 31.0 [facility] HEMATOLOGY MCV 92.7 fL 80.0 - 05/13 Greater 94.0 [facility] HEMATOLOGY WBC X 10x3 11.0 K/CMM 3.7 - 10.4 05/13 [facility] HEMATOLOGY Hct 32.9 % 42.0 - 05/13 Greater 54.0 [facility] HEMATOLOGY Hgb 10.9 g/dL 14.0 - 05/13 18.0 [facility] HEMATOLOGY RBC X 10x6 3.54 M/CMM 4.70 - 05/13 Greater 6.10 [facility] CHEM PANEL A/G Ratio 0.9 0.7 - 1.6 05/13 [facility] CHEM PANEL AGAP 12.1 meq/L 10.0 - 05/13 Greater 20.0 [facility] CHEM PANEL B/C Ratio 3 6 - 25 05/13 [facility] CHEM PANEL Globulin 4.5 g/dL 2.0 - 4.0 05/13 [facility] CHEM PANEL eGFR 16 05/13 3Result Comment: The eGFR is calculated using the CKD-EPI formula. In most young, healthy individuals the eGFR will be >90 mL/ min/1.73m2. The eGFR declines with age. An eGFR of 60-89 may be normal in mL/min/1. some populations, particularly the elderly, for whom the CKD-EPI formula has not been extensively validated. Use of the eGFR is not recommended in the following populations: [facility] 3m2 Individuals with unstable creatinine concentrations, including patients and those with serious co-morbid conditions. Patients with extremes in muscle mass or diet. The data above are obtained from the National Kidney Disease Education Program (NKDEP) which additionally recommends that when the eGFR is used in patients with extremes of body mass index for purposes of drug dosing, the eGFR should be multiplied by the estimated BMI. CHEM PANEL Bili Total 0.8 mg/dL 0.2 - 1.3 05/13 [facility] CHEM PANEL ASPARTATE 12 unit/L 0 - 37 05/13 TRANSAMINASE [facility] CHEM PANEL ALANINE 21 unit/L 0 - 65 05/13 AMINOTRANSFE [facility] RASE CHEM PANEL Alk Phos 85 unit/L 39 - 136 05/13 [facility] CHEM PANEL Calcium Lvl 9.0 mg/dL 8.5 - 10.5 05/13 [facility] CHEM PANEL CO2 30 meq/L 24 - 32 05/13 [facility] CHEM PANEL Total 8.6 g/dL 6.4 - 8.4 05/13 [facility] CHEM PANEL Albumin Lvl 4.1 g/dL 3.5 - 5.0 05/13 [facility] CHEM PANEL Chloride Lvl 96 meq/L 95 - 109 05/13 [facility] CHEM PANEL Sodium Lvl 135 meq/L 135 - 145 05/13 [facility] CHEM PANEL Potassium 3.1 meq/L 3.5 - 5.1 05/13 [facility] CHEM PANEL Creatinine 4.3 mg/dL 0.5 - 1.4 05/13 [facility] CHEM PANEL Glucose Lvl 147 mg/dL 70 - 99 05/13 6Interpretive Data: Adult reference range values reflect the clinical guidelines of the [place] [employer]. [facility] CHEM PANEL BUN 14 mg/dL 7 - 22 05/13 [facility] CHEM PANEL Lipase Lvl 125 unit/L 73 - 393 05/13 [facility] HEMATOLOGY MCHC 33.2 g/dL 32.0 - 05/13 36.0 [facility] HEMATOLOGY RDW 14.4 % 11.5 - 05/13 Greater 14. [facility] HEMATOLOGY MCH 30.6 pg 27.0 - 05/13 31.0 [facility] HEMATOLOGY MCV 92.0 fL 80.0 - 05/13 Greater 94.0 [facility] HEMATOLOGY Platelet 228 K/CMM 133 - 450 05/13 [facility] HEMATOLOGY MPV 7.5 fL 7.4 - 10.4 05/13 [facility] HEMATOLOGY Hgb 12.4 g/dL 14.0 - 05/13 18.0 [facility] HEMATOLOGY Hct 37.4 % 42.0 - 05/13 Greater 54.0 [facility] HEMATOLOGY WBC X 10x3 12.2 K/CMM 3.7 - 10.4 05/13 [facility] HEMATOLOGY RBC X 10x6 4.06 M/CMM 4.70 - 05/13 Greater 6.10 [facility] HEMATOLOGY Eosinophils 0.1 K/CMM 0.0 - 0.5 05/13 [facility] HEMATOLOGY Basophils # 0.1 K/CMM 0.0 - 0.2 05/13 [facility] HEMATOLOGY Segs 81.2 % 45.0 - 05/13 Greater 75.0 [facility] HEMATOLOGY Eosinophils 0.8 % 0.0 - 4.0 05/13 [facility] HEMATOLOGY Lymphocytes 13.4 % 20.0 - 05/13 Greater 40.0 [facility] HEMATOLOGY Monocytes 4.2 % 2.0 - 12.0 05/13 [facility] HEMATOLOGY Basophils 0.4 % 0.0 - 1.0 05/13 [facility] HEMATOLOGY Segs-Bands # 9.9 K/CMM 1.5 - 8.1 05/13 [facility] HEMATOLOGY Lymphocytes 1.6 K/CMM 1.0 - 5.5 05/13 [facility] HEMATOLOGY Monocytes # 0.5 K/CMM 0.0 - 0.8 05/13 [facility] [facility] Chest Chest 1view PROCEDURE: Chest 1view 05/12 - - [facility] REASON FOR EXAM: See Clinic Indication CLINICAL INDICATION: Abnormal chest sounds Read by: Dino Jimenez Dictated Date/time: 05/12/13 18:52 Electronically Signed by: Dino Jimneez MD 05/12/13 18:53 FINAL REPORT COMPARISON: 05/08/2013. FINDINGS: No acute process. No focal consolidation, pleural effusion, or pneumothorax. Stable cardiac silhouette and mediastinum. SL: 12 CHEM PANEL Lipase Lvl 178 unit/L 73 - 393 05/11 [facility] CHEM PANEL eGFR 10 05/11 1Result Comment: The eGFR is calculated using the CKD-EPI formula. In most young, healthy individuals the eGFR will be >90 mL/ min/1.73m2. The eGFR declines with age. An eGFR of 60-89 may be normal in mL/min/1. some populations, particularly the elderly, for whom the CKD-EPI formula has not been extensively validated. Use of the eGFR is not recommended in the following populations: [facility] 3m2 Individuals with unstable creatinine concentrations, including patients and those with serious co-morbid conditions. Patients with extremes in muscle mass or diet. The data above are obtained from the National Kidney Disease Education Program (NKDEP) which additionally recommends that when the eGFR is used in patients with extremes of body mass index for purposes of drug dosing, the eGFR should be multiplied by the estimated BMI. CHEM PANEL ASPARTATE 12 unit/L 0 - 37 05/11 [facility] CHEM PANEL Alk Phos 88 unit/L 39 - 136 05/11 [facility] CHEM PANEL ALANINE 24 unit/L 0 - 65 05/11 AMINOTRANS [facility] RASE CHEM PANEL Albumin Lvl 4.3 g/dL 3.5 - 5.0 05/11 [facility] [place] CHEM PANEL Bili Total 0.6 mg/dL 0.2 - 1.3 05/11 [facility] CHEM PANEL Total 9.1 g/dL 6.4 - 8.4 05/11 [facility] [place] CHEM PANEL Calcium Lvl 9.6 mg/dL 8.5 - 10.5 05/11 [facility] CHEM PANEL CO2 27 meq/L 24 - 32 05/11 [facility] CHEM PANEL Chloride Lvl 100 meq/L 95 - 109 05/11 [facility] CHEM PANEL Sodium Lvl 138 meq/L 135 - 145 05/11 [facility] CHEM PANEL Potassium 3.9 meq/L 3.5 - 5.1 05/11 [facility] CHEM PANEL Creatinine 6.3 mg/dL 0.5 - 1.4 05/11 [facility] CHEM PANEL BUN 25 mg/dL 7 - 22 05/11 [facility] [place] CHEM PANEL Glucose Lvl 258 mg/dL 70 - 99 05/11 2Interpretive Data: Adult reference range values reflect the clinical guidelines of the [place] [employer]. [facility] CHEM PANEL Globulin 4.8 g/dL 2.0 - 4.0 05/11 [facility] CHEM PANEL A/G Ratio 0.9 0.7 - 1.6 05/11 [facility] CHEM PANEL AGAP 14.9 meq/L 10.0 - 02 Greater 20.0 [facility] CHEM PANEL B/C Ratio 4 6 - 25 05/11 [facility] HEMATOLOGY Basophils 0.2 % 0.0 - 1.0 05/11 [facility] [place] HEMATOLOGY Monocytes # 0.2 K/CMM 0.0 - 0.8 05/11 [facility] HEMATOLOGY Eosinophils 0.0 K/CMM 0.0 - 0.5 05/11 [facility] [place] HEMATOLOGY Segs-Bands # 8.2 K/CMM 1.5 - 8.1 05/11 [facility] [place] HEMATOLOGY Lymphocytes 1.1 K/CMM 1.0 - 5.5 05/11 Greater # HEMATOLOGY Basophils # 0.0 K/CMM 0.0 - 0.2 05/11 HEMATOLOGY Segs 85.3 % 45.0 - 05/11 Greater 75.0 HEMATOLOGY RBC Morph Normal 05/11 [facility] (05/11/2013 15:31:00 [facility]) HEMATOLOGY Plt Morph Normal 05/11 [facility] (05/11/2013 15:31:00 [place]) HEMATOLOGY Monocytes 2.4 % 2.0 - 12.0 05/11 HEMATOLOGY Eosinophils 0.1 % 0.0 - 4.0 05/11 [facility] HEMATOLOGY Lymphocytes 12.0 % 20.0 - 05/11 Greater 40.0 [facility] HEMATOLOGY Hgb 13.1 g/dL 14.0 - 05/11 Greater 18.0 [facility] HEMATOLOGY RBC X 10x6 4.31 M/CMM 4.70 - 05/11 Greater 6.10 [facility] HEMATOLOGY MPV 7.3 fL 7.4 - 10.4 05/11 [facility] HEMATOLOGY RDW 14.0 % 11.5 - 05/11 Greater 14.5 HEMATOLOGY Platelet 243 K/CMM 133 - 450 05/11 [facility] HEMATOLOGY MCHC 33.0 g/dL 32.0 - 05/11 Greater 36.0 HEMATOLOGY MCH 30.4 pg 27.0 - 05/11 Greater 31.0 [facility] [place] HEMATOLOGY WBC X 10x3 9.6 K/CMM 3.7 - 10.4 05/11 [facility] [place] HEMATOLOGY MCV 91.9 fL 80.0 - 05/11 Greater 94.0 [facility] [place] HEMATOLOGY Hct 39.6 % 42.0 - 05/11 Greater 54.0 [facility] Abdomen/Pe Abdomen/Pelv CT abdomen and pelvis with IV contrast, May 11, 2013 05:09:20 PM 05/11 - [facility] lvis w IV is w IV /2013 - [facility] contrast contrast CT CT CLINICAL HISTORY: Acute abdominal pain ; See Clinic Indication Read by: Sari Zuleta Dictated Date/time: 05/11/13 17:20 Electronically Signed by: Sari Zuleta MD 05/11/13 17:23 FINAL REPORT TECHNIQUE: Routine 5 mm thick axial images of the abdomen and pelvis are obtained with oral and IV contrast. Routine 5 minute delayed images were obtained. Coronal and sagittal reformations were created. COMPARISON: Abdominopelvic CT August 2012 FINDINGS: Visualized lung bases are clear. The liver, spleen, pancreas, adrenal glands, and kidneys are normal. The ureters are unremarkable. Partially distended bladder suggests mild circumferential mural thickening. Gallbladder is present. Small hiatal hernia is present. Mild left colonic diverticulosis is present. Otherwise, the stomach, small intestine, and colon are normal. Appendix is normal. No free air or free fluid is visualized within the abdominal cavity. No mesenteric or retroperitoneal lymphadenopathy is present. Small umbilical hernia with a 1 cm mouth contains simple fat only. Bones are unremarkable. IMPRESSION: 1. Mild left colonic diverticulosis. 2. Questionable mild chronic cystitis. 3. Small hiatal hernia. SL: 14 CHEM PANEL Lipase Lvl 172 unit/L 73 - 393 05/08 [facility] CHEM PANEL A/G Ratio 1.0 0.7 - 1.6 05/08 [facility] CHEM PANEL Globulin 4.1 g/dL 2.0 - 4.0 05/08 [facility] CHEM PANEL AGAP 11.2 meq/L 10.0 - 05/08 [facility] 20.0 [facility] CHEM PANEL B/C Ratio 4 6 - 25 05/[address] CHEM PANEL Total 8.0 g/dL 6.4 - 8.4 05/08 [facility] Protein [facility] CHEM PANEL ASPARTATE 14 unit/L 0 - 37 05/08 [facility] TRANSAMINASE [facility] CHEM PANEL Bili Total 0.6 mg/dL 0.2 - 1.3 05/08 [facility] CHEM PANEL Albumin Lvl 3.9 g/dL 3.5 - 5.0 05/08 [facility] CHEM PANEL Alk Phos 81 unit/L 39 - 136 05/08 [facility]2013 [facility] CHEM PANEL ALANINE 26 unit/L 0 - 65 05/08 [facility] AMINOTRANSFE [facility] CHEM PANEL eGFR 12 05/08 1Result Comment: The eGFR is calculated using the CKD-EPI formula. In most young, healthy individuals the eGFR will be >90 mL/ min/1.73m2. The eGFR declines with age. An eGFR of 60-89 may be normal in mL/min/1. some populations, particularly the elderly, for whom the CKD-EPI formula has not been extensively validated. Use of the eGFR is not recommended in the following populations: [facility] Individuals with unstable creatinine concentrations, including patients and those with serious co-morbid conditions. Patients with extremes in muscle mass or diet. The data above are obtained from the National Kidney Disease Education Program (NKDEP) which additionally recommends that when the eGFR is used in patients with extremes of body mass index for purposes of drug dosing, the eGFR should be multiplied by the estimated BMI. CHEM PANEL Glucose Lvl 201 mg/dL 70 - 99 05/08 2Interpretive Data: Adult reference range values reflect the clinical guidelines of the [place] [employer]. [facility] CHEM PANEL Calcium Lvl 9.4 mg/dL 8.5 - 10.5 05/08 [facility] CHEM PANEL Creatinine 5.6 mg/dL 0.5 - 1.4 05/08 [facility] CHEM PANEL BUN 24 mg/dL 7 - 22 05/08 [facility] CHEM PANEL Potassium 4.2 meq/L 3.5 - 5.1 05/08 [facility] CHEM PANEL Sodium Lvl 142 meq/L 135 - 145 05/08 [facility] CHEM PANEL Chloride Lvl 102 meq/L 95 - 109 05/08 [facility] CHEM PANEL CO2 33 meq/L 24 - 32 05/08 [facility] HEMATOLOGY Basophils # 0.0 K/CMM 0.0 - 0.2 05/08 [facility] HEMATOLOGY Monocytes # 0.5 K/CMM 0.0 - 0.8 05/08 [facility] HEMATOLOGY Eosinophils 0.1 K/CMM 0.0 - 0.5 05/08 [facility] HEMATOLOGY Segs-Bands # 4.9 K/CMM 1.5 - 8.1 05/08 [facility] HEMATOLOGY Lymphocytes 1.7 K/CMM 1.0 - 5.5 05/08 [facility] HEMATOLOGY Basophils 0.2 % 0.0 - 1.0 05/08 [facility] HEMATOLOGY Lymphocytes 23.3 % 20.0 - 05/08 40.0 /2013 [facility] HEMATOLOGY Segs 67.3 % 45.0 - 05/08 75.0 /2013 [facility] HEMATOLOGY Eosinophils 1.9 % 0.0 - 4.0 05/08 [facility] HEMATOLOGY Monocytes 7.3 % 2.0 - 12.0 05/08 [facility] HEMATOLOGY Platelet 239 K/CMM 133 - 450 05/08 [facility] HEMATOLOGY MPV 8.1 fL 7.4 - 10.4 05/08 [facility] HEMATOLOGY RDW 13.2 % 11.5 - 05/08 14.5 [facility] HEMATOLOGY MCHC 33.9 g/dL 32.0 - 05/08 36.0 [facility] HEMATOLOGY Hct 38.4 % 42.0 - 05/08 54.0 [facility] HEMATOLOGY MCH 30.9 pg 27.0 - 05/08 31.0 [facility] HEMATOLOGY MCV 91.2 fL 80.0 - 05/08 94.0 [facility] HEMATOLOGY Hgb 13.0 g/dL 14.0 - 05/08 18.0 [facility] HEMATOLOGY RBC X 10x6 4.21 M/CMM 4.70 - 05/08 6.10 /2013 [facility] HEMATOLOGY WBC X 10x3 7.2 K/CMM 3.7 - 10.4 05/08 [facility] Chest 2 Chest 2 EXAM: Chest 2 views 05/08 - [facility] views - [facility] DATE: May 08, 2013 01:22:00 PM Read by: Ryland Pappas Dictated Date/time: 05/08/13 14:01 Electronically Signed by: Ryland Pappas MD 05/08/13 14:04 FINAL REPORT INDICATION: Abnormal chest sounds COMPARISON: Chest x-ray July 20, 2012 TECHNIQUE: PA and lateral chest radiographs. FINDINGS: Lungs are clear bilaterally without effusion. Heart and mediastinum are normal in size and contour. Bones and peripheral soft tissues are unremarkable. IMPRESSION: No acute abnormality. Lungs are clear. Chemistry HGBA1C 7.3 % - 5.6 10/23 [facility] CHOLESTEROL 178 mg/dl - 199 10/23 [facility] TRIGLYCERIDE 129 mg/dl - 149 10/23 [facility] HDL 40 mg/dl >=61 10/23 [facility] LDL 112 mg/dl - 99 10/23 [facility] SODIUM 141 MEQ/L 135 - 145 10/23 [facility] mmolL Group Chemistry POTASSIUM 4.5 MEQ/L 3.5 - 5.1 10/23 [facility] mmol/L Group Chemistry CREATININE 6.4 mg/dL 0.5 - 1.4 10/23 [facility] BUN 57 mg/dL 7 - 22 10/23 [facility] BUN/CREAT 9 6 - 25 10/23 [facility] ALBUMIN 3.6 g/dL 3.5 - 5.0 10/23 [facility] CALCIUM 9.0 mg/dL 8.5 - 10.5 10/23 [facility] SGPT (ALT) 21 U/L 0 - 65 10/23 [facility] SGOT (AST) 9 U/L 0 - 37 10/23 [facility] ALK PHOS 67 U/L 39 - 136 10/23 [facility] HGB 13.2 g/dL 14.0 - 10/23 [facility] 18.0 [facility] HCT 41.5 % 42.0 - 10/23 54.0 [facility] PLATELETS 217 K/CMM 133 - 450 10/23 Group CHEMISTRY C-Peptide 1.30 ng/mL 0.48 - 09/30 Normal [place] 5.05 [facility] BLOOD BANK ABO/Rh O POS 09/02 Unknown [place] RESULTS /2012 [facility] BLOOD BANK Antibody Negative 09/02 Normal [facility] RESULTS [facility] (09/02/2012 06:25:00) Center CHEMISTRY AGAP 9.8 meq/L 10.0 - 09/02 LOW [place] 20.0 [facility] CHEMISTRY eGFR 16 09/02 NA 1Result Comment: The eGFR is calculated using the CKD-EPI formula. In most young, healthy individuals the eGFR will be > 90 mL/min/1.73m2. The eGFR declines with age. An eGFR of 60-89 may be normal in [facility] mL/min/1.7 some populations, particularly the elderly, for whom the CKD-EPI formula has not been extensively validated. Use of the eGFR is not recommended in the following populations: [facility] Individuals with unstable creatinine concentrations, including patients and those with serious co-morbid conditions. Patients with extremes in muscle mass or diet. The data above are obtained from the National Kidney Disease Education Program (NKDEP) which additionally recommends that when the eGFR is used in patients with extremes of body mass index for purposes of drug dosing, the eGFR should be multiplied by the estimated BMI. CHEMISTRY Glucose Lvl 147 mg/dL 70 - 99 09/02 [place] 2Interpretive Data: Adult reference range values reflect the clinical guidelines of the [place] [employer]. [facility] CHEMISTRY Potassium 5.8 meq/L 3.5 - 5.1 09/02 [facility] CHEMISTRY Sodium Lvl 141 meq/L 135 - 145 09/02 Normal [facility] CHEMISTRY BUN 31 mg/dL 7 - 22 09/02 [facility] CHEMISTRY Creatinine 4.4 mg/dL 0.5 - 1.4 09/02 [facility] CHEMISTRY CO2 30 meq/L 24 - 32 09/02 Normal [facility] CHEMISTRY Calcium Lvl 9.0 mg/dL 8.5 - 10.5 09/02 Normal [facility] CHEMISTRY Chloride Lvl 107 meq/L 95 - 109 09/02 Normal [facility] CHEMISTRY Magnesium 2.0 mg/dL 1.8 - 2.4 09/02 Normal [facility] HEMATOLOGY Eosinophils 0.3 K/CMM 0.0 - 0.5 09/02 Normal [facility] # [facility] HEMATOLOGY Monocytes # 0.9 K/CMM 0.0 - 0.8 09/02 [facility] HEMATOLOGY Eosinophils 3.5 % 0.0 - 4.0 09/02 Normal [facility] HEMATOLOGY Basophils 0.5 % 0.0 - 1.0 09/02 [facility] HEMATOLOGY Segs-Bands # 4.3 K/CMM 1.5 - 8.1 09/02 [facility] HEMATOLOGY Lymphocytes 1.7 K/CMM 1.0 - 5.5 09/02 Normal [place] # /2012 [facility] HEMATOLOGY Monocytes 12.3 % 2.0 - 12.0 09/02 HI /2012 [facility] HEMATOLOGY Segs 59.9 % 45.0 - 09/02 Normal [place] 75.0 /2012 [facility] HEMATOLOGY Lymphocytes 23.8 % 20.0 - 09/02 Normal [facility] 40.0 /2012 [facility] HEMATOLOGY MCHC 33.2 g/dL 32.0 - 09/02 Normal [facility] 36.0 /2012 [facility] HEMATOLOGY RDW 15.4 % 11.5 - 09/02 [facility] 14.5 /2012 [facility] HEMATOLOGY MPV 8.4 fL 7.4 - 10.4 09/02 Normal /2012 [facility] HEMATOLOGY Platelet 166 K/CMM 133 - 450 09/02 Normal [facility] HEMATOLOGY Hgb 13.7 g/dL 14.0 - 09/02 LOW [facility] 18.0 [facility] HEMATOLOGY MCV 91.0 fL 80.0 - 09/02 Normal [facility] 94.0 [facility] HEMATOLOGY Hct 41.3 % 42.0 - 09/02 LOW [facility] 54.0 /2012 [facility] HEMATOLOGY MCH 30.2 pg 27.0 - 09/02 Normal [facility] 31.0 /2012 [facility] HEMATOLOGY WBC 7.2 K/CMM 3.7 - 10.4 09/02 Normal /2012 [facility] HEMATOLOGY RBC 4.54 M/CMM 4.70 - 09/02 LOW [facility] 6.10 /2012 [facility] HEMATOLOGY PTT 30.1 s 22.9 - 09/02 Normal 4Interpretive [facility] 35.8 Data: Heparin [facility] Range: 57 - 92 Seconds HEMATOLOGY PT 12.7 s 12.0 - 09/02 Normal [facility] 14.7 /2012 [facility] HEMATOLOGY INR 0.93 0.85 - 09/02 Normal 3Interpretive Data: RECOMMENDED RANGES FOR PROTIME INR: [facility] 1. 2.0-3.0 for most medical and surgical thromboembolic states. Medical 2.5-3.5 for artificial heart valves and recurrent embolism. Center INR SHOULD BE USED ONLY FOR PATIENTS ON STABLE ANTICOAGULANT THERAPY. HVI VAS HVI VAS Indications: Carotid bruit; preoperative evaluation 08/18 - [facility] Arterial - Medical Extracrani Extracranial This report was dictated by a Back Up Worker/Fellow. I have personally reviewed the images as Center al Doppler Doppler Bi well as the Resident's interpretation and agree with the findings. Bi IMPRESSION: Read by: Natalie Cruz Resident: Natalie Cruz Dictated Date/time: 08/18/12 15:15 1. Mild atherosclerotic disease of bilateral carotid bulbs and internal carotid arteries consistent with less than 50% stenosis. Electronically Signed by: Adis Wilkins MD 08/20/12 16:49 FINAL REPORT COMMENT: No prior studies are available for comparison. Bilateral grayscale, color- flow, and Doppler examination of the extracranial carotid arterial system was performed here. On the right, the internal carotid to common carotid peak systolic velocity ratio is 1.08. The peak systolic velocity in the internal carotid artery is 120 cm/sec. This is consistent with less than 50% stenosis. On the left, the internal carotid to common carotid peak systolic velocity ratio is 0.87 . The peak systolic velocity in the internal carotid artery a 94.3 cm/sec. This is consistent with less than 50% stenosis. Bilateral external carotid arteries are patent. Bilateral antegrade flow was noted in the vertebral arteries. Abdomen/Pe Abdomen/Pelv Comparison: 07/14/201008/15 - [facility]ID lvis wo is - The contrast contrast CT Patient: MARTY BASS [place] Read by: Waqar Friend Dictated Date/time: 08/16/12 14:23 Clinical Indications: HTN, DM, pretransplant workup, ESRD, PVD Electronically Signed by: Waqar Friend MD 08/16/12 14 :38 FINAL REPORT History: Bosniak criteria for cyst Procedure: Abdomen/Pelvis wo contrast CT Technique: Contiguous noncontrast CT axial images of the abdomen and pelvis were performed. Contrast: None FINDINGS: ABDOMEN: The visualized lung bases are normal. The visualized liver, kidneys, adrenals, pancreas, and spleen are normal in appearance. The renal collecting systems and ureters are normal in appearance and course . The gallbladder is normal. The biliary tree and pancreatic ducts are normal in caliber and appearance. No ascites is present. The stomach and duodenum are unremarkable in appearance. The small bowel is normal in caliber and appearance. The visualized colon in the upper abdomen is unremarkable. The visualized aorta, renal arteries, and mesenteric arteries are normal in appearance. No retroperitoneal adenopathy is seen. The omentum and mesentery are unremarkable. The visualized axial skeleton is unremarkable. IMPRESSIONS: 1. Both kidneys are unremarkable in appearance but evaluation is limited without the use of intravenous contrast. PELVIS: Mild thickening of the bladder wall is noted without interval change. The gastrointestinal tract is unremarkable. The appendix is normal. No internal or external hernias are identified. No pelvic mass o r adenopathy is present. No ascites is seen. The visualized axial and appendicular skeleton are unremarkable. IMPRESSIONS: 1. Mild bladder wall thickening is noted without interval change and may be due to chronic cystitis or bladder outlet obstruction. SL: 23 BLOOD BANK ABO/Rh O POS / Unknown The RESULTS /2012 [place] [place] BLOOD BANK ABO/Rh O POS 07/20 Unknown The RESULTS [place] CHEMISTRY PTH Intact 321.2 11.1 - 07/20 HI The pg/mL 79.5 [place] CHEMISTRY LDL Direct 92 mg/dL 0 - 129 05/ Normal The [place] CHEMISTRY Transferrin 194 mg/dL 212 - 360 05/ LOW The [place] [facility] 77 - 140 05/ Normal The [place] IMMUNOLOGY TB - NIL 0.06 05/ NA 20Result Comment: The Nil tube value is used to determine if the patient MH The [iU]/mL /2012 has a preexisting immune response which could cause a [place] false-positive reading on the test. In order for a test to be valid, the Nil tube must have a value of less than or equal to 8.0 IU/mL. The mitogen control tube is used to assure the patient has a healthy immune status and also serves as a control for correct blood handling and incubation. It is used to detect false-negative readings. The mitogen tube must have a gamma interferon value of greater than or equal to 0.5 IU/mL higher than the value of the Nil tube. The TB antigen tube is coated with the M. tuberculosis specific antigens. For a test to be considered positive, the TB antigen tube value minus the Nil tube value must be greater than or equal to 0.35 IU/mL. For additional information, please refer to http://education.Collective IP.Actimagine/faq/QFT (This link is being provided for informational/ educational purposes only.) Test Performed at: [facility] [address] [address] DAGO TORRES M.D. IMMUNOLOGY Mitogen - 9.37 07/20 NA The NIL [iU]/mL [place] IMMUNOLOGY Quantiferon NEGATIVE NEGATIVE 07/20 NA 19Result Comment: Negative test result. M. tuberculosis complex The - TB Gold infection unlikely. [place] IMMUNOLOGY NIL 0.04 07/20 NA The [iU]/mL [place] IMMUNOLOGY Cardiolipin 1 IgA 07/20 NA 14Interpretive Data: Reference Ranges for IgA: [facility] IgA 0-11 APL Negative [place] id Units 12-20 APL Inconclusive 21-80 APL Low-Med Positive > 80 APL Strong Positive IMMUNOLOGY Cardiolipin 2 IgG 07/20 NA 15Interpretive Data: Reference Ranges for IgG: [facility] IgG 0-14 GPL Negative [place] id Units 15-20 GPL Inconclusive 21-80 GPL Low-Med Positive > 80 GPL Strong Positive IMMUNOLOGY Cardiolipin 6.0 IgM 07/20 NA 16Interpretive Data: Reference Ranges for IgM: The IgM 0-12.4 MPL Negative [place] id Units 12.5-20 MPL Inconclusive 21-80 MPL Low-Med Positive > 80 MPL Strong Positive IMMUNOLOGY HSV 1 IgG null <=0.8 07/20 ND 17Interpretive Data: Antibody Index (AI) Results Interpretation ------- [place] 0.0-0.8 Negative No detectable IgG Antibody. 0.9-1.0 Equivocal Repeat testing suggested in 10-14 days. >=1.10 Positive Indicates presence of detectable IgG Antibody. IMMUNOLOGY HSV 2 IgG null <=0.8 07/20 ND 18Interpretive Data: Antibody Index (AI) Results Interpretation ------- [place] 0.0-0.8 Negative No detectable IgG Antibody. 0.9-1.0 Equivocal Repeat testing suggested in 10-14 days. >=1.10 Positive Indicates presence of detectable IgG Antibody. IMMUNOLOGY Varicella 1.8 AI <=0.8 07/20 ND 13Interpretive Data: Antibody Index (AI) Results Interpretation [facility] IgG ------- [place] 0.0-0.8 Negative No detectable IgG Antibody. 0.9-1.0 Equivocal Repeat testing suggested in 10-14 days. >=1.10 Positive Indicates presence of detectable IgG Antibody. IMMUNOLOGY Hep B Core Negative Negative 07/20 [facility] Ab [place] *NA* (07/20/2012 14:00:00) IMMUNOLOGY Homocyst Tot 14.4 3.7 - 13.9 07/20 [facility] umol/L [place] IMMUNOLOGY C4 28 mg/dL 16 - 47 05/ Normal [facility] [place] IMMUNOLOGY C3 101 mg/dL 88 - 201 05/ Normal [facility] [place] CHEMISTRY Hgb A1C 5.0 % 05 NA 4Interpretive Data: HbA1C% eAG(mg /dL) Interpretation 6.0 126 Very good control [place] 6.5 140 Very good control 7.0 154 Good Control 7.5 169 Good Control 8.0 183 Marginal Control, take action to lower 8.5 197 Marginal Control, take action to lower 9.0 212 Poor Control, take action to lower 9.5 226 Poor Control, take action to lower 10.0 240 Poor Control, take action to lower CHEMISTRY eGFR 10 07/20 NA 1Result Comment: The eGFR is calculated using the CKD-EPI formula. In most young, healthy individuals the eGFR will be > 90 mL/min/1.73m2. The eGFR declines with age. An eGFR of 60-89 may be normal in The mL/min/1.7 some populations, particularly the elderly, for whom the CKD-EPI formula has not been extensively validated. Use of the eGFR is not recommended in the following populations: [place] 3m2 Individuals with unstable creatinine concentrations, including patients and those with serious co-morbid conditions. Patients with extremes in muscle mass or diet. The data above are obtained from the National Kidney Disease Education Program (NKDEP) which additionally recommends that when the eGFR is used in patients with extremes of body mass index for purposes of drug dosing, the eGFR should be multiplied by the estimated BMI. CHEMISTRY Bili Total 0.3 mg/dL 0.2 - 1.3 05/ Normal [place] CHEMISTRY Alk Phos 81 unit/L 39 - 136 05/ Normal [place] CHEMISTRY AST 12 unit/L 0 - 37 05/06 Normal [place] CHEMISTRY ALT 19 unit/L 0 - 65 05/06 Normal [place] CHEMISTRY Albumin Lvl 3.0 g/dL 3.5 - 5.0 05/06 LOW [place] CHEMISTRY Calcium Lvl 8.1 mg/dL 8.5 - 10.5 05/06 LOW [place] CHEMISTRY Sodium Lvl 141 meq/L 135 - 145 05/06 Normal [place] CHEMISTRY Potassium 5.2 meq/L 3.5 - 5.1 05/06 HI The Lvl /2012 [place] [place] CHEMISTRY Chloride Lvl 108 meq/L 95 - 109 05/06 Normal The [place] CHEMISTRY CO2 23 meq/L 24 - 32 05/06 LOW The [place] CHEMISTRY Creatinine 6.7 mg/dL 0.5 - 1.4 05/06 HI The Lvl [place] CHEMISTRY BUN 65 mg/dL 7 - 22 05/06 HI The [place] CHEMISTRY Glucose Lvl 110 mg/dL 70 - 99 05/06 HI 2Interpretive Data: Adult reference range values reflect the clinical guidelines The of the [place] [employer]. [place] CHEMISTRY Total 6.6 g/dL 6.4 - 8.4 05/06 Normal The Protein [facility] [place] CHEMISTRY AGAP 15.2 meq/L 10.0 - 05/06 Normal The 20.0 [place] CHEMISTRY B/C Ratio 10 6 - 25 05/06 Normal The [place] CHEMISTRY Globulin 3.6 g/dL 2.0 - 4.0 05/06 Normal The [place] CHEMISTRY A/G Ratio 0.8 0.7 - 1.6 05/06 Normal The [place] CHEMISTRY CHD Risk 3.36 4.00 - 05/06 LOW The 7.30 [place] CHEMISTRY LDL 79 mg/dL 0 - 129 05/06 Normal The [place] CHEMISTRY Trig 127 mg/dL 0 - 200 05/06 Normal The [place] CHEMISTRY Chol 148 mg/dL 120 - 200 05/06 Normal The [place] CHEMISTRY HDL 44 mg/dL >=35 05/06 Normal The [place] CHEMISTRY Phosphorus 4.6 mg/dL 2.5 - 4.5 05/06 HI The [place] CHEMISTRY LDH 207 unit/L 98 - 192 05/06 HI The [place] CHEMISTRY Iron 37 ug/dl 45 - 160 05/06 LOW The [place] CHEMISTRY Vitamin D, 16 ng/mL 30 - 100 05/06 LOW 3Interpretive Data: Reference range is based on recommendations in the Endocrine The 25-OH, Total /2012 Society Clinical Practice Guideline (J Clin Endocrinol Metab [place] 2011;96:[id number]) CHEMISTRY Immune Cell 474 07/20 NA 7Result Comment: Reference Range The < mt=[id number] Low immune cell response [place] 226-524 Moderate immune cell response > zt=238 High immune cell response Test Performed at: [facility] [address] [id number] DAGO TORRES M.D. CHEMISTRY Martine Scr Negative Negative 05/06 Normal [place] (07/20/2012 13:30:00) CHEMISTRY Benzodiaz Negative Negative 05/06 Normal The [place] (07/20/2012 13:30:00) CHEMISTRY Cannab Scr Negative Negative 05/06 Normal [place] (07/20/2012 13:30:00) CHEMISTRY Amph Scr Negative Negative 05/06 Normal [facility] (07/20/2012 13:30:00) CHEMISTRY Methadone Negative Negative 05/ Normal The [place] (07/20/2012 13:30:00) CHEMISTRY Opiate Scr Negative Negative 05/06 Normal [place] (07/20/2012 13:30:00) CHEMISTRY PCP Scr Negative Negative 05/ Normal [place] (07/20/2012 13:30:00) CHEMISTRY Propoxyphn Negative Negative 05/ Normal The [place] (07/20/2012 13:30:00) CHEMISTRY Cocaine Scr Negative Negative 05/06 Normal [place] (07/20/2012 13:30:00) CHEMISTRY Cutoff See Note 5, 6 07/20 Normal 6Interpretive Data: Cutoff ( lowest detectable by EIA) values for Serum Drugscreen: THC and PCP: 1 ng/mL [place] (07/20/2012 13:30:00) All others: 20 ng/mL Cutoff (lowest detectable by GC/MS) value for confirmation: THC and PCP: 1 ng/mL Benzodiazepines: 5 ng/ml All others: 10 ng/ml Test performed by [facility] [address] [place] [address] HEMATOLOGY WBC 8.8 K/CMM 3.7 - 10.4 05 Normal [place] HEMATOLOGY RBC 3.82 M/CMM 4.70 - 05 LOW MH The 6 [place] HEMATOLOGY MCH 30.6 pg 27.0 - 05/06 Normal The 31.0 /2012 [place] HEMATOLOGY Hct 36.3 % 42.0 - 05/06 LOW The 54.0 /2012 [place] HEMATOLOGY MCV 95.1 fL 80.0 - 05/06 HI The 94.0 /2012 [place] HEMATOLOGY MCHC 32.1 g/dL 32.0 - 05/06 Normal The 36.0 /2012 [place] HEMATOLOGY Hgb 11.7 g/dL 14.0 - 05/06 LOW The 18.0 [place] HEMATOLOGY RDW 16.8 % 11.5 - 05/06 HI The 14.5 [place] HEMATOLOGY MPV 7.3 fL 7.4 - 10.4 05/06 LOW The [place] HEMATOLOGY Platelet 258 K/CMM 133 - 450 05/06 Normal The [place] HEMATOLOGY Lymphocytes 27.5 % 20.0 - 05/06 Normal The 40.0 [place] HEMATOLOGY Segs 61.7 % 45.0 - 05/06 Normal The 75.0 [place] HEMATOLOGY Monocytes 7.6 % 2.0 - 12.0 05/06 Normal The [place] HEMATOLOGY Eosinophils 2.9 % 0.0 - 4.0 05/06 Normal The [place] HEMATOLOGY Basophils 0.3 % 0.0 - 1.0 05/06 Normal The [place] HEMATOLOGY Lymphocytes 2.4 K/CMM 1.0 - 5.5 05/06 Normal The # [place] HEMATOLOGY Monocytes # 0.7 K/CMM 0.0 - 0.8 05/06 Normal The [place] HEMATOLOGY Basophils # 0.0 K/CMM 0.0 - 0.2 05/06 Normal The [place] HEMATOLOGY Eosinophils 0.3 K/CMM 0.0 - 0.5 05/06 Normal The # [place] HEMATOLOGY Segs-Bands # 5.4 K/CMM 1.5 - 8.1 05/06 Normal The [place] HEMATOLOGY PT 12.9 s 12.0 - 05/06 Normal The 14.7 [place] HEMATOLOGY INR 0.95 0.85 - 05/06 Normal 8Interpretive Data: RECOMMENDED RANGES FOR PROTIME INR: The . 2.0-3.0 for most medical and surgical thromboembolic states. [place] 2.5-3.5 for artificial heart valves and recurrent embolism. INR SHOULD BE USED ONLY FOR PATIENTS ON STABLE ANTICOAGULANT THERAPY. HEMATOLOGY PTT 30.7 s 22.9 - 07/20 Normal 9Interpretive [facility] 35 Data: Heparin [place] Therapeutic Range: 57 - 92 Seconds IMMUNOLOGY Hep Bs Ag Negative Negative 07/20 NA [place] *NA* (07/20/2012 13:30:00) IMMUNOLOGY Hep Bs Ab 1.9 mIU/mL <=7.4 07/20 Normal 21Interpretive Data: < =7.4 mIU/mL--------Negative for Anti-HBs. Not immune to HBV infection. [place] 7.5-12.4 mIU/mL--Borderline for Anti-HBs and immune status should be further assessed by considering other factors such as clinical status follow-up testing, associated risk factors, and the use of additional diagnostic information. >12.4 mIU/mL-------Positive for Anti-HBs. Immune to HBV infection IMMUNOLOGY Hep C Ab Negative Negative 07/20 [facility] [place] *NA* (07/20/2012 13:30:00) IMMUNOLOGY EBV VCA IgG null <=0.8 07/20 ND 11Interpretive Data: Antibody Index (AI) Results Interpretation ------- [place] 0.0-0.8 Negative No detectable IgG Antibody. 0.9-1.0 Equivocal Repeat testing suggested in 10-14 days. >=1.10 Positive Indicates presence of detectable IgG Antibody. IMMUNOLOGY CMV IgM 0.2 S/CO 07/20 NA 10Interpretive Data: Reference Ranges: Non-reactive: <0.9 S/CO Ratio [place] Indeterminate: 0.9 - 1.0 S/CO Ratio Reactive: >=1.1 S/CO Ratio IMMUNOLOGY CMV IgG Reactive Non 07/20 ABN The Reactive [place] *ABN* (07/20/2012 13:30:00) IMMUNOLOGY HIV 1/2 Ab Negative Negative 07/20 NA [place] *NA* (07/20/2012 13:30:00) IMMUNOLOGY RPR Non Reactive Non 07/20 Normal The Reactive [place] (07/20/2012 13:30:00) IMMUNOLOGY EBV VCA IgM null <=0.8 07/20 Normal 12Interpretive Data: Antibody Index (AI) Results Interpretation ------- [place] 0.0-0.8 Negative No detectable IgM Antibody. 0.9-1.0 Equivocal Repeat testing suggested in 10-14 days. >=1.10 Positive Significant level of detectable IgM Antibody, indicative of current or recent infection. CHEMISTRY Lipase Lvl 193 unit/L 73 - 393 06/23 Normal The [place] CHEMISTRY Chloride Lvl 99 meq/L 95 - 109 06/23 Normal The [place] CHEMISTRY Total 5.8 g/dL 6.4 - 8.4 06/23 LOW The Protein [place] CHEMISTRY Calcium Lvl 8.1 mg/dL 8.5 - 10.5 06/23 LOW The [place] CHEMISTRY CO2 34 meq/L 24 - 32 06/23 HI The [place] CHEMISTRY Potassium 3.6 meq/L 3.5 - 5.1 06/23 Normal The Lvl [place] CHEMISTRY Sodium Lvl 139 meq/L 135 - 145 06/23 Normal The [place] CHEMISTRY Albumin Lvl 2.3 g/dL 3.5 - 5.0 06/23 LOW [place] CHEMISTRY AST 27 unit/L 0 - 37 06/23 Normal [place] CHEMISTRY Bili Total 0.4 mg/dL 0.2 - 1.3 06/23 Normal The [place] CHEMISTRY eGFR 16 06/23 NA 1Result Comment: The eGFR is calculated using the CKD-EPI formula. In most young, healthy individuals the eGFR will be > 90 mL/min/1.73m2. The eGFR declines with age. An eGFR of 60-89 may be normal in The mL/min/1.7 some populations, particularly the elderly, for whom the CKD-EPI formula has not been extensively validated. Use of the eGFR is not recommended in the following populations: [place] 3m2 Individuals with unstable creatinine concentrations, including patients and those with serious co-morbid conditions. Patients with extremes in muscle mass or diet. The data above are obtained from the National Kidney Disease Education Program (NKDEP) which additionally recommends that when the eGFR is used in patients with extremes of body mass index for purposes of drug dosing, the eGFR should be multiplied by the estimated BMI. CHEMISTRY ALT 21 unit/L 0 - 65 04/09 Normal [place] CHEMISTRY Alk Phos 84 unit/L 39 - 136 04/09 Normal The [place] CHEMISTRY BUN 23 mg/dL 7 - 22 04/ HI The [place] CHEMISTRY Glucose Lvl 142 mg/dL 70 - 99 04/ HI 2Interpretive Data: Adult reference range values reflect the clinical guidelines MH of the [place] [employer]. [place] CHEMISTRY Creatinine 4.5 mg/dL 0.5 - 1.4 / HI The Lvl [place] CHEMISTRY B/C Ratio 5 6 - 25 04/ LOW The [place] CHEMISTRY AGAP 9.6 meq/L 10.0 - 04/ LOW The 20.0 [place] CHEMISTRY A/G Ratio 0.7 0.7 - 1.6 04/09 Normal The [place] CHEMISTRY Globulin 3.5 g/dL 2.0 - 4.0 04/09 Normal The [place] HEMATOLOGY Eosinophils 0.2 K/CMM 0.0 - 0.5 04/ Normal MH The # [place] HEMATOLOGY Basophils # 0.0 K/CMM 0.0 - 0.2 04/09 Normal The [place] HEMATOLOGY Monocytes 9.4 % 2.0 - 12.0 04/09 Normal The [place] HEMATOLOGY Segs 69.7 % 45.0 - 04/09 Normal MH The 75.0 [place] HEMATOLOGY Lymphocytes 18.2 % 20.0 - 04/09 LOW MH The 40.0 [place] HEMATOLOGY Eosinophils 2.5 % 0.0 - 4.0 04/09 Normal The [place] HEMATOLOGY Monocytes # 0.9 K/CMM 0.0 - 0.8 04/09 HI [place] HEMATOLOGY Basophils 0.2 % 0.0 - 1.0 04/09 Normal The [place] HEMATOLOGY Lymphocytes 1.8 K/CMM 1.0 - 5.5 04/ Normal The # [place] HEMATOLOGY Segs-Bands # 6.7 K/CMM 1.5 - 8.1 06/23 Normal The [place] HEMATOLOGY RBC 3.16 M/CMM 4.70 - 06/23 LOW The 6.10 [place] HEMATOLOGY Hgb 9.4 g/dL 14.0 - 06/23 LOW The 18.0 [place] HEMATOLOGY Hct 30.1 % 42.0 - 06/23 LOW The 54.0 [place] HEMATOLOGY MCV 95.0 fL 80.0 - 06/23 HI The 94.0 [place] HEMATOLOGY MPV 7.7 fL 7.4 - 10.4 06/23 Normal The [place] HEMATOLOGY MCH 29.7 pg 27.0 - 06/23 Normal The 31.0 [place] HEMATOLOGY MCHC 31.3 g/dL 32.0 - 06/23 LOW The 36.0 [place] HEMATOLOGY RDW 16.7 % 11.5 - 06/23 HI The 14.5 [place] HEMATOLOGY Platelet 229 K/CMM 133 - 450 06/23 Normal The [place] HEMATOLOGY WBC 9.6 K/CMM 3.7 - 10.4 06/23 Normal [place] URINALYSIS UA <=1.0 0.1 - 1.0 06/23 NA The Urobilinogen mg/dL [place]
*NA*< br/>(06/23 07:32:00) <sup> </sup> URINALYSIS UA Hyal Cast 1 /LPF 0 - 2 06/23 Normal [place] URINALYSIS UA Mucus Few /LPF None Seen 06/23 NA [place] *NA* (06/23/2012 07:32:00) URINALYSIS UA Leuk Est Negative Negative 06/23 Normal [place] (06/23/2012 07:32:00) URINALYSIS UA Sq Epi Few /LPF Few 06/23 NA [place] *NA* (06/23/2012 07:32:00) URINALYSIS UA Ketones Negative mg/dL Negative 06/23 NA [place] *NA* (06/23/2012 07:32:00) URINALYSIS UA Nitrite Negative Negative 06/23 Normal [place] (06/23/2012 07:32:00) URINALYSIS UA Turbidity Clear Clear 06/23 Normal [place] (06/23/2012 07:32:00) URINALYSIS UA Color Yellow Yellow 06/23 NA [place] *NA* (06/23/2012 07:32:00) URINALYSIS UA WBC 2 /HPF 0 - 5 06/23 Normal [place] URINALYSIS UA Bili Negative Negative 06/23 NA [place] *NA* (06/23/2012 07:32:00) URINALYSIS UA Blood Negative Negative 06/23 Normal [place] (06/23/2012 07:32:00) URINALYSIS UA Glucose 200 mg/dL Negative 06/23 ABN [place] *ABN* (06/23/2012 07:32:00) URINALYSIS UA Protein >=300 mg/dL Negative 06/23 ABN [place] *ABN* (06/23/2012 07:32:00) URINALYSIS UA pH 8.0 5.0 - 8.0 06/23 Normal [place] URINALYSIS UA Spec Grav 1.013 <=1.030 06/23 Normal [place] URINALYSIS UA RBC 1 /HPF 0 - 2 06/23 Normal [place] Chemistry HGBA1C 5.1 % 06/04 Group Chemistry CHOLESTEROL 292 mg/dl 120 - 200 06/04 Group Chemistry TRIGLYCERIDE 200 mg/dl 0 - 200 06/04 Group Chemistry HDL 37 mg/dl >=35 06/04 Group Chemistry LDL 215 mg/dl 0 - 129 06/04 Group Chemistry SODIUM 139 MEQ/L 135 - 145 06/04 Medical mmol/L Group Chemistry POTASSIUM 4.6 MEQ/L 3.5 - 5.1 06/04 mmol/L Group Chemistry CREATININE 7.4 mg/dL 0.5 - 1.4 06/04 Group Chemistry BUN 53 mg/dL 7 - 22 06/04 Group Chemistry BUN/CREAT 7 6 - 25 06/04 Group Chemistry ALBUMIN 2.2 g/dL 3.5 - 5.0 06/04 Group Chemistry CALCIUM 7.2 mg/dL 8.5 - 10.5 06/04 Group Chemistry SGPT (ALT) 24 U/L 0 - 65 06/04 Group Chemistry SGOT (AST) 27 U/L 0 - 37 06/04 Group Chemistry ALK PHOS 66 U/L 39 - 136 06/04 Group Chemistry HGBA1C 5.1 % 06/04 Group Chemistry CHOLESTEROL 292 mg/dl 120 - 200 06/04 Group Chemistry TRIGLYCERIDE 200 mg/dl 0 - 200 06/04 Group Chemistry HDL 37 mg/dl >=35 06/04 Group Chemistry LDL 215 mg/dl 0 - 129 06/04 Group Chemistry SODIUM 139 MEQ/L 135 - 145 06/04 Medical mmolL Group Chemistry POTASSIUM 4.6 MEQ/L 3.5 - 5.1 06/04 mmolL Group Chemistry CREATININE 7.4 mg/dL 0.5 - 1.4 06/04 Group Chemistry BUN 53 mg/dL 7 - 06/04 Group Chemistry BUN/CREAT 7 6 - 25 06/04 Group Chemistry ALBUMIN 2.2 g/dL 3.5 - 5.0 06/04 Group Chemistry CALCIUM 7.2 mg/dL 8.5 - 10.5 06/04 Group Chemistry SGPT (ALT) 24 U/L 0 - 65 06/04 Group Chemistry SGOT (AST) 27 U/L 0 - 37 06/04 Group Chemistry ALK PHOS 66 U/L 39 - 136 06/04 Group Hematology HGB 7.9 g/dL 14.0 - 06/04 18.0 Group Hematology HCT 23.7 % 42.0 - 06/04 54.0 Group Hematology PLATELETS 289 K/CMM 133 - 450 06/04 Medical /mm3 /2013 [facility] H[facility] HGB 7.9 g/dL 14.0 - 06/04 Medical 18.0 /2012 Group Hematology HCT 23.7 % 42.0 - 06/04 Medical 54.0 /2012 Group Hematology PLATELETS 289 K/CMM 133 - 450 06/04 Medical /mm3 /2012 Group BEDSIDE Gluc POC 167 mg/dL 70 - 99 03/03 HI 1Interpretive GLUCOSE [facility] Data: [facility] TESTING Upper Reportable Limit: 200 mg/dL. BEDSIDE Comment1 Notify RN 03/03 NA GLUCOSE [facility] TESTING CHEMISTRY eGFR 12 03/03 NA 2Result Comment: The eGFR is calculated using the CKD-EPI formula. In most young, healthy individuals the eGFR will be > 90 mL/min/1.73m2. The eGFR declines with age. An eGFR of 60-89 may be normal in mL/min/1.7 some populations, particularly the elderly, for whom the CKD-EPI formula has not been extensively validated. Use of the eGFR is not recommended in the following populations: [address] Individuals with unstable creatinine concentrations, including patients and those with serious co-morbid conditions. Patients with extremes in muscle mass or diet. The data above are obtained from the National Kidney Disease Education Program (NKDEP) which additionally recommends that when the eGFR is used in patients with extremes of body mass index for purposes of drug dosing, the eGFR should be multiplied by the estimated BMI. CHEMISTRY Sodium Lvl 143 meq/L 135 - 145 03/03 Normal [facility] CHEMISTRY CO2 20 meq/L 24 - 32 03/03 LOW [facility] CHEMISTRY Calcium Lvl 7.6 mg/dL 8.5 - 10.5 03/03 LOW [facility] CHEMISTRY Chloride Lvl 114 meq/L 95 - 109 03/03 HI [facility] CHEMISTRY Potassium 5.1 meq/L 3.5 - 5.1 03/03 Normal Lvl [facility] CHEMISTRY Creatinine 5.8 mg/dL 0.5 - 1.4 03/03 HI Lvl [facility] CHEMISTRY Glucose Lvl 203 mg/dL 70 - 99 03/03 HI 4Interpretive Data: Adult reference range values reflect the clinical guidelines of the [place] [employer]. [facility] CHEMISTRY BUN 64 mg/dL 7 - 22 03/03 HI [facility] CHEMISTRY AGAP 14.1 meq/L 10.0 - 12/18 Normal MH 20.0 /2012 [facility] HEMATOLOGY Eosinophils 0.2 K/CMM 0.0 - 0.5 12/18 Normal MH # /2012 [facility] HEMATOLOGY Monocytes # 0.4 K/CMM 0.0 - 0.8 12/18 Normal MH /2011 [facility] HEMATOLOGY Basophils # 0.0 K/CMM 0.0 - 0.2 12/18 Normal MH /2011 [facility] HEMATOLOGY Lymphocytes 1.9 K/CMM 1.0 - 5.5 12/18 Normal MH # /2011 [facility] HEMATOLOGY Basophils 0.4 % 0.0 - 1.0 12/18 Normal MH /2011 [facility] HEMATOLOGY Segs-Bands # 5.1 K/CMM 1.5 - 8.1 / Normal MH /2011 [facility] HEMATOLOGY Lymphocytes 24.9 % 20.0 - 12/18 Normal MH 40.0 /2011 [facility] HEMATOLOGY Eosinophils 3.1 % 0.0 - 4.0 / Normal MH /2011 [facility] HEMATOLOGY Monocytes 5.7 % 2.0 - 12.0 /18 Normal MH /2011 [facility] HEMATOLOGY Segs 65.9 % 45.0 - 1218 Normal MH 75.0 /2011 [facility] HEMATOLOGY RBC 2.86 M/CMM 4.70 - 03/03 LOW MH 6.10 /2011 [facility] HEMATOLOGY Platelet 234 K/CMM 133 - 450 / Normal MH /2011 [facility] HEMATOLOGY MPV 8.1 fL 7.4 - 10.4 18 Normal MH /2011 [facility] HEMATOLOGY RDW 13.3 % 11.5 - 1218 Normal MH 14.5 /2011 [facility] HEMATOLOGY MCHC 33.8 g/dL 32.0 - 1218 Normal MH 36.0 /2011 [facility] HEMATOLOGY MCH 30.0 pg 27.0 - 1218 Normal MH 31.0 /2011 [facility] HEMATOLOGY MCV 88.8 fL 80.0 - 1218 Normal MH 94.0 /2011 [facility] HEMATOLOGY Hgb 8.6 g/dL 14.0 - 1218 LOW MH 18.0 /2011 [facility] HEMATOLOGY Hct 25.4 % 42.0 - 12/18 LOW MH 54.0 /2011 [facility] HEMATOLOGY WBC 7.8 K/CMM 3.7 - 10.4 03/03 Normal MH /2011 [facility] CHEMISTRY eGFR 12 02/27 NA 3Result Comment: The eGFR is calculated using the CKD-EPI formula. In most young, healthy individuals the eGFR will be > 90 mL/min/1.73m2. The eGFR declines with age. An eGFR of 60-89 may be normal in mL/min/1.7 /2012 some populations, particularly the elderly, for whom the CKD-EPI formula has not been extensively validated. Use of the eGFR is not recommended in the following populations: [facility] 3m2 Individuals with unstable creatinine concentrations, including patients and those with serious co-morbid conditions. Patients with extremes in muscle mass or diet. The data above are obtained from the National Kidney Disease Education Program (NKDEP) which additionally recommends that when the eGFR is used in patients with extremes of body mass index for purposes of drug dosing, the eGFR should be multiplied by the estimated BMI. CHEMISTRY Chloride Lvl 113 meq/L 95 - 109 02/27 HI MH [facility] CHEMISTRY Calcium Lvl 7.3 mg/dL 8.5 - 10.5 02/27 LOW /2011 [facility] CHEMISTRY Sodium Lvl 142 meq/L 135 - 145 02/27 Normal [facility] CHEMISTRY BUN 63 mg/dL 7 - 22 02/27 HI MH /2011 [facility] CHEMISTRY Creatinine 5.7 mg/dL 0.5 - 1.4 02/27 HI Lvl /2011 [facility] CHEMISTRY Glucose Lvl 45 mg/dL 70 - 99 02/27 LOW 5Interpretive Data: Adult reference range values reflect the clinical guidelines of the [place] [employer]. [facility] CHEMISTRY CO2 21 meq/L 24 - 32 02/27 LOW MH /2011 [facility] CHEMISTRY Potassium 4.4 meq/L 3.5 - 5.1 02/27 Normal Lvl /2011 [facility] CHEMISTRY AGAP 12.4 meq/L 10.0 - 02/27 Normal MH 20.0 [facility] HEMATOLOGY Eosinophils 0.2 K/CMM 0.0 - 0.5 / Normal MH # /2012 [facility] HEMATOLOGY Monocytes # 0.5 K/CMM 0.0 - 0.8 / Normal MH /2011 [facility] HEMATOLOGY Lymphocytes 2.6 K/CMM 1.0 - 5.5 / Normal MH # /2011 [facility] HEMATOLOGY Segs-Bands # 5.1 K/CMM 1.5 - 8.1 / Normal MH /2011 [facility] HEMATOLOGY Basophils 0.5 % 0.0 - 1.0 / Normal MH /2011 [facility] HEMATOLOGY Eosinophils 2.0 % 0.0 - 4.0 / Normal MH /2011 [facility] HEMATOLOGY Basophils # 0.0 K/CMM 0.0 - 0.2 02/27 Normal MH /2011 [facility] HEMATOLOGY Monocytes 6.1 % 2.0 - 12.0 / Normal MH /2011 [facility] HEMATOLOGY Lymphocytes 30.6 % 20.0 - 12 Normal MH 40.0 /2011 [facility] HEMATOLOGY Segs 60.8 % 45.0 - 02/27 Normal MH 75.0 /2011 [facility] HEMATOLOGY INR 0.99 0.85 - 02/27 Normal 6Interpretive Data: RECOMMENDED RANGES FOR PROTIME INR: 1. 2.0-3.0 for most medical and surgical thromboembolic states. [facility] 2.5-3.5 for artificial heart valves and recurrent embolism. INR SHOULD BE USED ONLY FOR PATIENTS ON STABLE ANTICOAGULANT THERAPY. HEMATOLOGY PT 13.3 s 12.0 - 02/27 Normal MH 14.7 [facility] HEMATOLOGY PTT 33.7 s 22.9 - 02/27 Normal 7Interpretive 35.8 Data: Heparin [facility] Therapeutic Range: 57 - 92 Seconds HEMATOLOGY WBC 8.5 K/CMM 3.7 - 10.4 02/27 Normal MH /2011 [facility] HEMATOLOGY RBC 2.59 M/CMM 4.70 - 02/27 LOW MH 6.10 [facility] HEMATOLOGY Hgb 7.8 g/dL 14.0 - 02/27 LOW 18.0 [facility] HEMATOLOGY MPV 8.2 fL 7.4 - 10.4 02/27 Normal /2011 [facility] HEMATOLOGY MCHC 34.1 g/dL 32.0 - 02/27 Normal 36.0 [facility] HEMATOLOGY Platelet 229 K/CMM 133 - 450 02/27 Normal /2011 [facility] HEMATOLOGY RDW 13.2 % 11.5 - 12 Normal MH 14. [facility] HEMATOLOGY MCV 88.2 fL 80.0 - 02/27 Normal MH 94.0 /2011 [facility] HEMATOLOGY Hct 22.9 % 42.0 - 02/27 LOW MH 54.0 /2011 [facility] HEMATOLOGY MCH 30.1 pg 27.0 - 02/27 Normal MH 31.0 [facility] URINALYSIS UA Color STRAW 02/27 NA /2011 [facility] URINALYSIS UA Spec Grav 1.020 <=1.030 02/27 Normal /2011 [facility] URINALYSIS UA Turbidity Clear Clear 02/27 Normal [facility] (02/28/2012 16:20:00) URINALYSIS UA 0.2 EU/dL 0.1 - 1.0 02/27 Normal Urobilinogen [facility] URINALYSIS UA Nitrite Negative Negative 02/27 Normal [facility] (02/28/2012 16:20:00) URINALYSIS UA Blood Moderate Negative 02/27 ABN [facility] *ABN* (02/28/2012 16:20:00) URINALYSIS UA Bili Negative Negative 02/27 NA [facility] *NA* (02/28/2012 16:20:00) URINALYSIS UA Glucose 100 mg/dL Negative 02/27 ABN [facility] *ABN* (02/28/2012 16:20:00) URINALYSIS UA Ketones Negative Negative 02/27 NA [facility] *NA* (02/28/2012 16:20:00) URINALYSIS UA Protein >=300 mg/dL Negative 02/27 [facility] *ABN* (02/28/2012 16:20:00) URINALYSIS UA pH 6.5 5.0 - 8.0 02/27 Normal [facility] URINALYSIS Micro? Performed 02/27 Normal [facility] (02/28/2012 16:20:00) URINALYSIS UA RBC 3-5 /HPF 0 - 2 02/27 [facility] *ABN* (02/28/2012 16:20:00) URINALYSIS UA Bacteria Occasional /HPF None Seen 02/27 Normal [facility] (02/28/2012 16:20:00) URINALYSIS UA Sq Epi Rare /LPF Few 02/27 Normal [facility] (02/28/2012 16:20:00) URINALYSIS UA WBC None Seen None Seen 02/27 Normal [facility] (02/28/2012 16:20:00) URINALYSIS UA Leuk Est Negative Negative 02/27 Normal [facility] (02/28/2012 16:20:00) Chemistry HGBA1C 6.9 % 11/11 Group Chemistry TSH 1.420 0.360 - 11/11 Medical uIU/mL 3.740 /2011 Group Chemistry CHOLESTEROL 327 mg/dl 120 - 200 11/11 Group Chemistry TRIGLYCERIDE 155 mg/dl 0 - 200 11/11 Group Chemistry HDL 54 mg/dl >=35 11/11 Group Chemistry LDL 242 mg/dl 0 - 129 11/11 Group Chemistry SODIUM 141 MEQ/L 135 - 145 11/11 Medical mmol/L Group Chemistry POTASSIUM 4.7 MEQ/L 3.5 - 5.1 11/11 [facility] mmolL Group Chemistry CREATININE 4.9 mg/dL 0.5 - 1.4 11/11 Group Chemistry BUN 63 mg/dL 7 - 22 11/11 Group Chemistry BUN/CREAT 13 6 - 25 11/11 Group Chemistry ALBUMIN 1.8 g/dL 3.5 - 5.0 11/11 Group Chemistry CALCIUM 7.6 mg/dL 8.5 - 10.5 11/11 Group Chemistry SGPT (ALT) 17 U/L 0 - 65 11/11 Group Chemistry SGOT (AST) 14 U/L 0 - 37 11/11 Group Chemistry ALK PHOS 68 U/L 39 - 136 11/11 Group Vital Signs Vital Sign Value Date Comments Source BMI Calculated 36.42 02/01/2016 [facility] Weight 102.358 02/01/2016 [facility] Respitory Rate 16 02/01/2016 [facility] Temperature Oral (F) 98.0 F 02/01/2016 [facility] Heart Rate 92 02/01/2016 [facility] Height 167.64 cm 02/01/2016 [facility] Systolic (mm Hg) 185 01/23/2016 [facility] Diastolic (mm Hg) 114 01/23/2016 [facility] Respitory Rate 20 01/23/2016 [facility] Heart Rate 92 01/23/2016 [facility] Height 167 cm 01/23/2016 [facility] BMI Calculated 36.54 01/23/2016 [facility] Weight 101.9 01/23/2016 [facility] BMI Calculated 34.94 02/23/2015 [facility] Weight 98.182 02/23/2015 [facility] Height 167.64 cm 02/23/2015 [facility] Heart Rate 83 02/23/2015 [facility] Systolic (mm Hg) 125 02/23/2015 [facility] Diastolic (mm Hg) 86 02/23/2015 [facility] Weight 97.898 02/08/2015 [facility] BMI Calculated 34.84 02/08/2015 [facility] Height 167.64 cm 02/08/2015 [facility] Systolic (mm Hg) 135 02/08/2015 [facility] Diastolic (mm Hg) 90 02/08/2015 [facility] Heart Rate 92 02/08/2015 [facility] Temperature Oral (F) 97.4 F 02/08/2015 [facility] Weight 90.455 11/02/2014 [facility] BMI Calculated 32.19 11/02/2014 [facility] Height 167.64 cm 11/02/2014 [facility] Heart Rate 90 11/02/2014 [facility] Temperature Oral (F) 97.4 F 11/02/2014 [facility] Systolic (mm Hg) 147 11/02/2014 [facility] Diastolic (mm Hg) 96 11/02/2014 [facility] Height 167.64 cm 10/18/2014 [facility] BMI Calculated 33.08 10/18/2014 [facility] Weight 92.955 10/18/2014 [facility] Temperature Oral (F) 98.1 F 10/18/2014 [facility] Respitory Rate 18 10/18/2014 [facility] Heart Rate 94 10/18/2014 [facility] Heart Rate 82 09/20/2014 [facility] Weight 94.7 09/20/2014 [facility] BMI Calculated 32.39 09/20/2014 [facility] Height 171 cm 09/20/2014 [facility] Respitory Rate 19 09/20/2014 [facility] Systolic (mm Hg) 167 09/20/2014 [facility] Diastolic (mm Hg) 109 09/20/2014 [facility] Systolic (mm Hg) 168 09/07/2014 [facility] Diastolic (mm Hg) 99 09/07/2014 [facility] Heart Rate 82 09/07/2014 [facility] Temperature Oral (F) 98.3 F 09/07/2014 [facility] Height 66 09/07/2014 [facility] Weight 210 09/07/2014 [facility] Respitory Rate 14 09/07/2014 [facility] Heart Rate 86 08/19/2014 [facility] [place] Systolic (mm Hg) 151 08/19/2014 [place] Diastolic (mm Hg) 88 08/19/2014 [place] Respitory Rate 18 08/19/2014 [place] Weight 96.364 08/19/2014 [place] BMI Calculated 34.29 08/19/2014 [place] Height 167.64 cm 08/19/2014 [place] Systolic (mm Hg) 151 08/19/2014 [place] Diastolic (mm Hg) 83 08/19/2014 [place] Heart Rate 88 08/19/2014 [place] Respitory Rate 18 08/19/2014 [place] Weight 204 09/08/2013 [facility] Temperature Oral (F) 98.0 F 09/08/2013 [facility] Heart Rate 77 09/08/2013 [facility] Systolic (mm Hg) 170 09/08/2013 [facility] Diastolic (mm Hg) 94 09/08/2013 [facility] Weight 91.8 09/07/2013 [facility] Diastolic (mm Hg) 95 09/07/2013 [facility] Systolic (mm Hg) 137 09/07/2013 [facility] Respitory Rate 18 09/07/2013 [facility] Heart Rate 85 09/07/2013 [facility] BMI Calculated 31.95 09/07/2013 [facility] Height 169.5 cm 09/07/2013 [facility] Systolic (mm Hg) 110 08/31/2013 [facility] Diastolic (mm Hg) 74 08/31/2013 [facility] Heart Rate 84 08/31/2013 [facility] Weight 198 08/31/2013 [facility] Height 170.18 cm 08/24/2013 [place] Weight 90 08/24/2013 [place] BMI Calculated 31.08 08/24/2013 [place] Weight 88 06/23/2013 [place] BMI Calculated 31.31 06/23/2013 [place] Height 167.64 cm 06/23/2013 [place] Respitory Rate 16 06/23/2013 [place] Systolic (mm Hg) 116 06/23/2013 [place] Heart Rate 99 06/23/2013 [place] Diastolic (mm Hg) 67 06/23/2013 [place] Temperature Oral (F) 97.9 F 05/14/2013 [facility] Systolic (mm Hg) 147 05/14/2013 [facility] Diastolic (mm Hg) 88 05/14/2013 [facility] Heart Rate 81 05/14/2013 [facility] Respitory Rate 20 05/14/2013 [facility] Systolic (mm Hg) 142 05/14/2013 [facility] Diastolic (mm Hg) 80 05/14/2013 [facility] Respitory Rate 15 05/14/2013 [facility] Diastolic (mm Hg) 86 05/14/2013 [facility] Systolic (mm Hg) 148 05/14/2013 [facility] Respitory Rate 10 05/14/2013 [facility] Heart Rate 80 05/14/2013 [facility] Temperature Oral (F) 98.3 F 05/14/2013 [facility] Heart Rate 82 05/14/2013 [facility] Temperature Oral (F) 97.9 F 05/14/2013 [facility] Weight 88.636 05/13/2013 [facility] Height 167.64 cm 05/13/2013 [facility] BMI Calculated 31.54 05/13/2013 [facility] Height 170.18 cm 05/13/2013 [facility] BMI Calculated 27.47 05/13/2013 [facility] Weight 79.545 05/13/2013 [facility] Temperature Oral (F) 98.0 F 05/12/2013 [facility] Diastolic (mm Hg) 82 05/12/2013 [facility] Heart Rate 87 05/12/2013 [facility] Respitory Rate 18 05/12/2013 [facility] Systolic (mm Hg) 144 05/12/2013 [facility] Diastolic (mm Hg) 90 05/11/2013 [facility] Temperature Oral (F) 98.1 F 05/11/2013 [facility] Heart Rate 88 05/11/2013 [facility] Systolic (mm Hg) 149 05/11/2013 [facility] Respitory Rate 18 05/11/2013 [facility] Temperature Oral (F) 98.2 F 05/11/2013 [facility] Diastolic (mm Hg) 95 05/11/2013 [facility] Heart Rate 91 05/11/2013 [facility] Respitory Rate 18 05/11/2013 [facility] Systolic (mm Hg) 163 05/11/2013 [facility] Height 167.64 cm 05/11/2013 [facility] Weight 8.636 05/11/2013 [facility] BMI Calculated 3.07 05/11/2013 [facility] Respitory Rate 16 05/09/2013 [facility] Diastolic (mm Hg) 75 05/09/2013 [facility] Systolic (mm Hg) 136 05/09/2013 [facility] Heart Rate 83 05/09/2013 [facility] Heart Rate 83 05/08/2013 [facility] Respitory Rate 18 05/08/2013 [facility] Systolic (mm Hg) 143 05/08/2013 [facility] Diastolic (mm Hg) 81 05/08/2013 [facility] Diastolic (mm Hg) 70 05/08/2013 [facility] Systolic (mm Hg) 126 05/08/2013 [facility] Respitory Rate 18 05/08/2013 [facility] Heart Rate 68 05/08/2013 [facility] Weight 88.636 05/08/2013 [facility] Height 167.64 cm 05/08/2013 [facility] BMI Calculated 31.54 05/08/2013 [facility] Temperature Oral (F) 98.2 F 05/08/2013 [facility] Systolic (mm Hg) 121 09/02/2012 [facility] Diastolic (mm Hg) 71 09/02/2012 [facility] Systolic (mm Hg) 123 09/02/2012 [facility] Diastolic (mm Hg) 73 09/02/2012 [facility] Systolic (mm Hg) 122 09/02/2012 [facility] Diastolic (mm Hg) 71 09/02/2012 [facility] Respitory Rate 16 09/02/2012 [facility] Temperature Oral (F) 97.8 F 09/02/2012 [facility] Height 167.64 cm 09/02/2012 [facility] Weight 90.909 09/02/2012 [facility] Height 167.64 cm 08/18/2012 [facility] Weight 81.818 08/18/2012 [facility] Weight 90.909 06/23/2012 [facility] Height 167.64 cm 06/23/2012 [facility] Weight 202 06/02/2012 [facility] Height 66 06/02/2012 [facility] Temperature Oral (F) 98.4 F 06/02/2012 [facility] Heart Rate 100 06/02/2012 [facility] Systolic (mm Hg) 131 06/02/2012 [facility] Diastolic (mm Hg) 78 06/02/2012 [facility] Diastolic (mm Hg) 84 03/03/2012 [facility] Systolic (mm Hg) 128 03/03/2012 [facility] Respitory Rate 16 03/03/2012 [facility] Heart Rate 63 03/03/2012 [facility] Diastolic (mm Hg) 71 03/03/2012 [facility] Systolic (mm Hg) 111 03/03/2012 [facility] Respitory Rate 5 03/03/2012 [facility] Diastolic (mm Hg) 85 03/03/2012 [facility] Systolic (mm Hg) 135 03/03/2012 [facility] Respitory Rate 16 03/03/2012 [facility] Heart Rate 68 03/03/2012 [facility] Heart Rate 82 03/03/2012 [facility] Height 167.64 cm 02/28/2012 [facility] Weight 98.636 02/28/2012 [facility] Encounters Location Location Encounter Encounter Reason Attending ADM DC Status Source Details Type Number For Provider Date Date Visit Not Sent DS [id number] ALEK 03/03 03/03 Active 1 LEWIS /2011 [facility] [id number] COLETTE 06/23 06/23 Active [facility] 2 RINKLE /2012 [facility] TB [id number] PRE AMMADOU 07/20 Active [facility] 1 TRANSPLA ADROG [facility] Outpatient [id number] V72.83 MAMADOU 07/20 Active [facility] 6 ADROG [facility] Outpatient [id number] CARDIAC BISWAJIT 08/18 Active [facility] 3 CLEARANC [facility] E/ Center KIDNEY [place]/DR. ARGUELLES [facility] BYRON [id number] BISWAJIT 09/02 09/02 Active [facility] 4 CHELSEY /2012 [facility] TB [id number] LABS MAMADOU 09/30 Active [facility] 3 ADROGUE [facility] Outpatient [id number] LAB KAMLESH AMS 11/23 11/23 Active [facility] Medical [facility] Outpatient [id number] LAB KAMLESH MAS 12/16 12/16 Active [facility] Medical [facility] Outpatient [id number] LAB KAMLESH MAS 01/20 01/20 Active [facility] 0 [facility] Outpatient [id number] LAB KAMLESH MAS 02/17 02/17 Active [facility] Medical [facility] Outpatient [id number] LAB KAMLESH KAYEPASCALE 03/26 03/26 Active [facility] Medical [facility] Emergency [id number] RANDAL OVIDIO 05/08 05/08 Active [facility] EC [id number] _MAPID:E Randal Mendoza 05/08 05/09 [facility] [place] [facility] 5 [id number] NCNTRR [facility] [id number] [facility] Emergency [id number] MARTHA 05/11 05/11 Active [facility] 6 [facility] EC [id number] _MAPID:E Martha 05/11 05/12 [facility] [facility] [id number] [facility] [id number] [facility] OU [id number] ABDOMINA PANCHO SENTHIL 05/12 Active [facility] 7 L PAIN, [facility] BLE VOMITING WITH FAILED OUTPT [facility] OBS [id number] _MAPID:E Pancho Senthil 05/13 05/15 [place] [facility] 7 [id number] [facility] Patient [id number] [facility] EC [id number] Aguilar 06/23 06/23 [facility] [place] [facility] 8 Jimenez /2013 [facility] Outpatient [id number] Edward 07/10 07/11 [facility] [place] 9 Reymundo /2013 [facility] OP [id number] Non 08/02 09/01 [facility] [place] Transplant 0 Physician /2013 [facility] Office [id number] Oralia Gao, 08/31 08/31 [place] Visit 72383 /2013 [facility] [place] [facility] [address] [facility] OP [id number] Mamadou 09/07 10/07 [place] Transplant 5 Adrogue /2013 [facility] [id number] Lyric 09/08 09/08 [place] Visit 57258 MD Javier /[address] [facility] 9305 [facility] Outpatient [id number] Otis 09/10 09/11 [facility] [place] 8 Robertson /2013 [facility] Lab Report [id number] Lyric 02/23 02/23 [place] 48897 MD Javier /2013 [facility] Outpatient [id number] Clarisa 04/18 04/19 [place] 4 [facility] EC [id number] Taras 08/19 08/19 [facility] [place] Emergency 1 Wheeler II /2014 [facility] Office [id number] Elmer 09/07 09/07 [place] Visit 87337 MD Lupillo /2014 [facility] OP [id number] Clarisa 09/20 10/20 [facility] [place] Transplant 6 [facility] Ctr [facility] OP [id number] Clarisa 10/18 11/17 [place] [facility]plant 7 [facility] Outpatient [id number] Biswaflowert 10/18 10/19 [place] 4 [facility] Advanced Heart Failure [facility] Outpatient [id number] Heather 11/02 11/03 [place] [facility] [id number] Heather 11/08 11/09 [facility] 5 [place] [facility] [place] [facility] Outpatient [id number] Heather 11/08 11/09 [place] 7 Be[facility] Outpatient [id number] Heather 12/22 12/23 [place] 0 [facility] Outpatient [id number] Heather 02/08 02/09 [place] 1 Beha [facility] Outpatient [id number] Arsenio Bruce 02/23 02/24 [place] 3 [facility] Bedded [id number] Arsenio Bruce 03/28 03/28 [facility] Outpatient [facility] Outpatient [id number] Clarisa 04/17 04/18 [facility] 3 De [facility] Outpt Diag [id number] Heather 05/04 05/05 [facility] Outpatient [facility] 6 Behazin [facility] [facility] OP [id number] Kamlesh Mas 01/22 02/21 [facility] Transplant [facility] Outpatient [id number] Alex 01/31 02/01 [facility] 8 [facility] Advanced [facility] Failure [facility] [id number] PRE MAMADOU Cancel [place] [address] TRANSPLA [facility] NT EVAL Center [facility] [id number] PRE MAMADOU Active [facility] [address] [facility] Preadmit [id number] RENAL/DO KAMLESH MAS Active [place] [address] NOT USE [facility] FOR Center CHARGES F/C NOTES ONLY OD [id number] 414.00 - MAMADOU Cancel [facility] 1 COR ATH ADROGUE [place] UNSP VS ook Procedures Procedure Code Date Perfomer Comments Source Emergency department [address] [facility] visit for the [address] [place] [address] evaluation and management of a patient, which requires these 3 soto components within the constraints imposed by the urgency of the patient's clinical condition and/or mental status: A comprehensive history; A comprehensi Injection or Infusion 99.29 [facility] of Other Therapeutic [address] [place] [address] Center or Prophylactic Substance Intravenous infusion, 95269 [facility] hydration; each [address] [place] [address] Center additional hour (List separately in addition to code for primary procedure) Therapeutic, [address]28 [facility] prophylactic, or [address] [place] [address] diagnostic injection (specify substance or drug); each additional sequential intravenous push of a new substance/drug (List separately in addition to code for primary procedure) Therapeutic, 77646 [facility] prophylactic, or [address] [place] [address] Center diagnostic injection (specify substance or drug); each additional sequential intravenous push of the same substance/drug provided in a facility (List separately in addition to code for primary procedure) Therapeutic, 93175 [facility] prophylactic, or [address] [place] [address] Center diagnostic injection (specify substance or drug); intravenous push, single or initial substance/drug Hemodialysis [id number] [address] Hemodialysis [id number] [address] Hemodialysis [id number] [facility] 3 [place] Cataract surgery [id number] [facility] Arteriovenous shunt [id number] [facility] renal dialysis [facility] Cardiac [id number] [facility] Cataract surgery [id number] [facility] Cardiac [id number] [facility] Arteriovenous [id number] 1left upper [facility] fistulization<sup>1</ [facility] [place] sup> Arteriovenous shunt [id number] [facility] for renal dialysis [place] [facility] [id number] [facility] catheterization [place] Cataract surgery [id number] [facility] [place] Arteriovenous shunt [id number] The for renal dialysis [place] Cataract surgery [id number] [facility]
--- OUTSIDE RECORDS SUMMARY | 2018-02-27 09:51 | XMS REPORT | CCD ---
:1975 Author Organization [facility] Care Team Providers Name Role Phone Kasi Wheat Referring Provider Allergies, Adverse Reactions, Alerts Substance Reaction Status NKDA Active Problem List Condition Effective Dates Status Diabetes mellitus Resolved HTN - Hypertension Resolved Renal failure syndrome Resolved Medications Medication Instructions Start Date End Date Status hydrALAZINE 10 mg, Route: IV, ONCE, 09/02/2012 09/02/2012 Completed Dosing Weight 90.909, kg, Start date: 09/02/12 19:11:00, Stop date: 09/02/12 19:11:00 Apidra SoloStar Pen 100 10 units, SUB-Q, TID-Before Meals, 10 unit in qam, 15 unit noon, 10 unit qpm, Substitution Allowed, INJ 09/02/2012 Ordered units/mL subcutaneous 10 unit in qam, 15 unit noon, 10 unit qpm solution Lipitor 20 mg oral tablet 20 mg, 1 tab, PO, Daily, 09/02/2012 Ordered 90 tab, Substitution Allowed, TAB calcium acetate 667 mg PO, TID, with meals, Substitution Allowed, CAP 2012 Ordered oral capsule with meals Saline Flush 0.9% 5 ml, Route: IVP, Drug 09/02/2012 09/03/2012 Discontinued Form: INJ, Dosing Weight 90.909, kg, Q12H, Start date: 09/02/12 9:00:00, Duration: 30 day, Stop date: 10/01/12 21:00:00 Saline Flush 0.9% 5 ml, Route: IVP, Drug 09/02/2012 09/03/2012 Discontinued Form: INJ, Dosing Weight 90.909, kg, PRN, PRN Line Flush, Start date: 09/02/12 6:18:00, Duration: 30 day, Stop date: 10/02/12 6:17:00 Vital Signs Most recent to oldest 1 2 3 [Reference Range]: Height 167.64 cm (09/02/2012 06:09:00) Temperature Oral [96.4-99.1 97.8 DegF DegF] (09/02/2012 06:36:00) Systolic Blood Pressure 121 mmHg 123 mmHg 122 mmHg [90-140 mmHg] (09/02/2012 14:06:00) (09/02/2012 13:45:00) (09/02/2012 13:30: 00) Diastolic Blood Pressure 71 mmHg 73 mmHg 71 mmHg [60-90 mmHg] (09/02/2012 14:06:00) (09/02/2012 13:45:00) (09/02/2012 13:30: 00) Respiratory Rate [14-20 16 BRMIN BRMIN] (09/02/2012 06:36:00) Weight 90.909 kg (09/02/2012 06:09:00) Results BLOOD BANK RESULTS Most recent to oldest [Reference Range]: 1 ABO/Rh O POS *Unknown* (09/02/2012 06:25:00) Antibody Scrn Negative (09/02/2012 06:25:00) CHEMISTRY Most recent to oldest [Reference Range]: 1 Sodium Lvl [135-145 mEq/L] 141 mEq/L (09/02/2012 06:20:00) Potassium Lvl [3.5-5.1 mEq/L] 5.8 mEq/L *HI* (09/02/2012 06:20:00) Chloride Lvl [95-109 mEq/L] 107 mEq/L (09/02/2012 06:20:00) CO2 [24-32 mEq/L] 30 mEq/L (09/02/2012 06:20:00) AGAP [10.0-20.0 mEq/L] 9.8 mEq/L *LOW* (09/02/2012 06:20:00) Creatinine Lvl [0.5-1.4 mg/dL] 4.4 mg/dL *HI* (09/02/2012 06:20:00) eGFR 16 mL/min/1.73m2 1 *NA* (09/02/2012 06:20:00) BUN [7-22 mg/dL] 31 mg/dL *HI* (09/02/2012 06:20:00) Glucose Lvl [70-99 mg/dL] 147 mg/dL 2 *HI* (09/02/2012 06:20:00) Calcium Lvl [8.5-10.5 mg/dL] 9.0 mg/dL (09/02/2012 06:20:00) Magnesium Lvl [1.8-2.4 mg/dL] 2.0 mg/dL (09/02/2012 06:20:00) 1Result Comment: The eGFR is calculated using the CKD-EPI formula. In most young , healthy individualsthe eGFR will be >90 mL/min/1.73m2. The eGFR declines with age. An eGFR of 60-89 may be normal in some populations, particularly the elderly, for whom the CKD-EPI formula has not been extensively validated. Use of the eGFR is not recommended in the following populations: Individuals with unstable creatinine concentrations, including patients and those with serious co-morbid conditions. Patients with extremes in muscle mass or diet. The data above are obtained from the National Kidney Disease Education Program ( NKDEP) which additionally recommends that when the eGFR is used in patients with extremes of body mass index for purposesof drug dosing, the eGFR should be multiplied by the estimated BMI.2Interpretive Data: Adult reference range values reflect the clinical guidelines of the [place] [employer].HEMATOLOGY Most recent to oldest [Reference Range]: 1 WBC [3.7-10.4 K/CMM] 7.2 K/CMM (09/02/2012 06:20:00) RBC [4.70-6.10 M/CMM] 4.54 M/CMM *LOW* (09/02/2012 06:20:00) Hgb [14.0-18.0 g/dL] 13.7 g/dL *LOW* (09/02/2012 06:20:00) Hct [42.0-54.0 %] 41.3 % *LOW* (09/02/2012 06:20:00) MCV [80.0-94.0 fL] 91.0 fL (09/02/2012 06:20:00) MCH [27.0-31.0 pg] 30.2 pg (09/02/2012 06:20:00) MCHC [32.0-36.0 g/dL] 33.2 g/dL (09/02/2012 06:20:00) RDW [11.5-14.5 %] 15.4 % *HI* (09/02/2012 06:20:00) Platelet [133-450 K/CMM] 166 K/CMM (09/02/2012 06:20:00) MPV [7.4-10.4 fL] 8.4 fL (09/02/2012 06:20:00) Segs [45.0-75.0 %] 59.9 % (09/02/2012 06:20:00) Lymphocytes [20.0-40.0 %] 23.8 % (09/02/2012 06:20:00) Monocytes [2.0-12.0 %] 12.3 % *HI* (09/02/2012 06:20:00) Eosinophils [0.0-4.0 %] 3.5 % (09/02/2012 06:20:00) Basophils [0.0-1.0 %] 0.5 % (09/02/2012 06:20:00) Segs-Bands # [1.5-8.1 K/CMM] 4.3 K/CMM (09/02/2012 06:20:00) Lymphocytes # [1.0-5.5 K/CMM] 1.7 K/CMM (09/02/2012 06:20:00) Monocytes # [0.0-0.8 K/CMM] 0.9 K/CMM *HI* (09/02/2012 06:20:00) Eosinophils # [0.0-0.5 K/CMM] 0.3 K/CMM (09/02/2012 06:20:00) PT [12.0-14.7 seconds] 12.7 seconds (09/02/2012 06:20:00) INR [0.85-1.17] 0.93 3 (09/02/2012 06:20:00) PTT [22.9-35.8 seconds] 30.1 seconds 4 (09/02/2012 06:20:00) 3Interpretive Data: RECOMMENDED RANGES FOR PROTIME INR: 2.0-3.0 for most medical and surgical thromboembolic states. 2.5-3.5 for artificial heart valves and recurrent embolism. INR SHOULD BE USED ONLY FOR PATIENTS ON STABLE ANTICOAGULANT THERAPY.4Interpretive Data: Heparin Therapeutic Range: 57 - 92 Seconds
--- OUTSIDE RECORDS SUMMARY | 2018-02-27 09:51 | XMS REPORT | CCD ---
:1975 Author Organization [facility] Care Team Providers Name Role Phone Mamadou Sy Referring Provider Allergies, Adverse Reactions, Alerts Substance Reaction Status NKDA Active Problem List Condition Effective Dates Status Diabetes mellitus Resolved HTN - Hypertension Resolved Renal failure syndrome Resolved Results CHEMISTRY Most recent to oldest [Reference Range]: 1 C-Peptide [0.48-5.05 ng/mL] 1.30 ng/mL (09/30/2012 08:10:00)
--- OUTSIDE RECORDS SUMMARY | 2018-02-27 09:51 | XMS REPORT | CCD ---
:1975 Author Organization [facility] Care Team Providers Name Role Phone Kasi Wheat Referring Provider Allergies, Adverse Reactions, Alerts Substance Reaction Status NKDA Active Problem List Condition Effective Dates Status Diabetes mellitus Resolved HTN - Hypertension Resolved Renal failure syndrome Resolved
--- OUTSIDE RECORDS SUMMARY | 2018-02-27 09:51 | XMS REPORT | CCD ---
:[address] [facility] [place] [place] Care Team Providers Name Role Phone Mamadou Sy Consulting Provider Allergies, Adverse Reactions, Alerts Substance Reaction Status NKDA Active Problem List Condition Effective Dates Status Diabetes mellitus Resolved HTN - Hypertension Resolved Renal failure syndrome Resolved Results BLOOD BANK RESULTS Most recent to oldest [Reference 1 2 Range]: ABO/Rh O POS O POS *Unknown* *Unknown* (07/20/2012 14:01:00) (07/20/2012 14:00:00) CHEMISTRY Most recent to oldest [Reference Range]: 1 2 Sodium Lvl [135-145 mEq/L] 141 mEq/L (07/20/2012 13:30:00) Potassium Lvl [3.5-5.1 mEq/L] 5.2 mEq/L *HI* (07/20/2012 13:30:00) Chloride Lvl [95-109 mEq/L] 108 mEq/L (07/20/2012 13:30:00) CO2 [24-32 mEq/L] 23 mEq/L *LOW* (07/20/2012 13:30:00) AGAP [10.0-20.0 mEq/L] 15.2 mEq/L (07/20/2012 13:30:00) Creatinine Lvl [0.5-1.4 mg/dL] 6.7 mg/dL *HI* (07/20/2012 13:30:00) eGFR 10 mL/min/1.73m2 1 *NA* (07/20/2012 13:30:00) BUN [7-22 mg/dL] 65 mg/dL *HI* (07/20/2012 13:30:00) B/C Ratio [6-25] 10 (07/20/2012 13:30:00) Glucose Lvl [70-99 mg/dL] 110 mg/dL 2 *HI* (07/20/2012:30:00) Total Protein [6.4-8.4 g/dL] 6.6 g/dL (07/20/2012:30:00) Albumin Lvl [3.5-5.0 g/dL] 3.0 g/dL *LOW* (07/20/2012:30:00) Globulin [2.0-4.0 g/dL] 3.6 g/dL (07/20/2012:00) A/G Ratio [0.7-1.6] 0.8 (07/20/2012:30:00) Calcium Lvl [8.5-10.5 mg/dL] 8.1 mg/dL *LOW* (07/20/2012) Phosphorus [2.5-4.5 mg/dL] 4.6 mg/dL *HI* (07/20/2012:30:00) ALT [0-65 unit/L] 19 unit/L (07/20/2012::00) AST [0-37 unit/L] 12 unit/L (07/20/2012:30:00) Alk Phos [39-136 unit/L] 81 unit/L (07/20/2012:30:00) LDH [98-192 unit/L] 207 unit/L *HI* (07/20/2012:30:00) Bili Total [0.2-1.3 mg/dL] 0.3 mg/dL (07/20/2012:30:00) Vitamin D, 25-OH, Total [30-100 ng/mL] 16 ng/mL 3 *LOW* (07/20/2012) CHD Risk [4.00-7.30] 3.36 *LOW* (07/20/2012:30:00) Chol [120-200 mg/dL] 148 mg/dL (07/20/2012:30:00) Trig [0-200 mg/dL] 127 mg/dL (07/20/2012:30:00) HDL [>=35 mg/dL] 44 mg/dL (07/20/2012:30:00) LDL [0-129 mg/dL] 79 mg/dL (07/20/2012 13:30:00) LDL Direct [0-129 mg/dL] 92 mg/dL (07/20/2012 14:00:00) Hgb A1C 5.0 % 4 *NA* (07/20/2012 13:30:00) Iron [45-160 ug/dl] 37 ug/dl *LOW* (07/20/2012 13:30:00) Transferrin [212-360 mg/dL] 194 mg/dL *LOW* (07/20/2012 14:00:00) PTH Intact [11.1-79.5 pg/mL] 321.2 pg/mL *HI* (07/20/2012 14:00:00) Opiate Scr [Negative] Negative (07/20/2012 13:30:00) Cannab Scr [Negative] Negative (07/20/2012 13:30:00) Amph Scr [Negative] Negative (07/20/2012 13:30:00) Cocaine Scr [Negative] Negative (07/20/2012 13:30:00) PCP Scr [Negative] Negative (07/20/2012 13:30:00) Martine Scr [Negative] Negative (07/20/2012 13:30:00) Benzodiaz Scr [Negative] Negative (07/20/2012 13:30:00) Propoxyphn Scr [Negative] Negative (07/20/2012 13:30:00) Methadone Scr [Negative] Negative (07/20/2012 13:30:00) Cutoff Values See Note 5, 6 (07/20/2012 13:30:00) Immune Cell Func 474 7 *NA* (07/20/2012 13:30:00) 1Result Comment: The eGFR is calculated using [...] values reflect the clinical guidelines of the [place] [employer].3Interpretive Data: Reference range is based on recommendations in the Endocrine Society Clinical Practice Guideline (J Clin Endocrinol Metab 2011;96:2423-1469)4Interpretive Data: HbA1C% eAG(mg/dL) Interpretation 6.0 126 Very good control 6.5 140 Very good control 7.0 154 Good Control 7.5 169 Good Control 8.0 183 Marginal Control, take action to lower 8.5 197 Marginal Control, take action to lower 9.0 212 Poor Control, take action to lower 9.5 226 Poor Control, take action to lower 10.0 240 Poor Control, take action to [id number] Comment: Testing perform by [id number] Data: Cutoff (lowest detectable by EIA ) values for Serum Drugscreen: THC and PCP: 1 ng/mL All others: 20 ng/mL Cutoff (lowest detectable by GC/MS) value for confirmation: THC and PCP: 1 ng/mL Benzodiazepines: 5 ng/ml All others: 10 ng/ml Test performed by [facility] [address] [place], [place] [id number] Comment: Reference Range < bf=610 Low immune cell response 226-524 Moderate immune cell response > gx=098 High immune cell response Test Performed at: [email or web address] [address] [id number] DAGO TORRES M.D.HEMATOLOGY Most recent to oldest [Reference Range]: 1 2 WBC [3.7-10.4 K/CMM] 8.8 K/CMM (07/20/2012 13:30:00) RBC [4.70-6.10 M/CMM] 3.82 M/CMM *LOW* (07/20/2012 13:30:00) Hgb [14.0-18.0 g/dL] 11.7 g/dL *LOW* (07/20/2012 13:30:00) Hct [42.0-54.0 %] 36.3 % *LOW* (07/20/2012 13:30:00) MCV [80.0-94.0 fL] 95.1 fL *HI* (07/20/2012) MCH [27.0-31.0 pg] 30.6 pg (07/20/20123000) MCHC [32.0-36.0 g/dL] 32.1 g/dL (07/20/201200) RDW [11.5-14.5 %] 16.8 % *HI* (07/20/2012) Platelet [133-450 K/CMM] 258 K/CMM (07/20/2012) MPV [7.4-10.4 fL] 7.3 fL *LOW* (07/20/2012) Segs [45.0-75.0 %] 61.7 % (07/20/2012) Lymphocytes [20.0-40.0 %] 27.5 % (07/20/2012) Monocytes [2.0-12.0 %] 7.6 % (07/20/2012) Eosinophils [0.0-4.0 %] 2.9 % (07/20/2012) Basophils [0.0-1.0 %] 0.3 % (07/20/2012) Segs-Bands # [1.5-8.1 K/CMM] 5.4 K/CMM (07/20/2012) Lymphocytes # [1.0-5.5 K/CMM] 2.4 K/CMM (07/20/2012) Monocytes # [0.0-0.8 K/CMM] 0.7 K/CMM (07/20/2012) Eosinophils # [0.0-0.5 K/CMM] 0.3 K/CMM (07/20/2012) Basophils # [0.0-0.2 K/CMM] 0.0 K/CMM (07/20/20123000) PT [12.0-14.7 seconds] 12.9 seconds (07/20/2012) INR [0.85-1.17] 0.95 8 (07/20/2012 13:30:00) AT III Func [77-140 %] 100 % (07/20/2012 14:00:00) PTT [22.9-35.8 seconds] 30.7 seconds 9 (07/20/2012 13:30:00) 8Interpretive Data: RECOMMENDED RANGES FOR PROTIME INR: 2.0-3.0 for most medical and surgical thromboembolic states. 2.5-3.5 for artificial heart valves and recurrent embolism. INR SHOULD BE USED ONLY FOR PATIENTS ON STABLE ANTICOAGULANT THERAPY.9Interpretive Data: Heparin Therapeutic Range: 57 - 92 SecondsIMMUNOLOGY Most recent to oldest [Reference Range]: 1 2 RPR [Non Reactive] Non Reactive (07/20/2012 13:30:00) C3 Complement [88-201 mg/dL] 101 mg/dL (07/20/2012 14:00:00) C4 Complement [16-47 mg/dL] 28 mg/dL (07/20/2012 14:00:00) CMV IgG [Non Reactive] Reactive *ABN* (07/20/2012 13:30:00) CMV IgM 0.2 S/CO Ratio 10 *NA* (07/20/2012 13:30:00) EBV VCA IgG [<=0.8 AI] >8.0 AI 11 *HI* (07/20/2012 13:30:00) EBV VCA IgM [<=0.8 AI] <0.2 AI 12 (07/20/2012 13:30:00) Varicella IgG [<=0.8 AI] 1.8 AI 13 *HI* (07/20/2012 14:00:00) HIV 1/2 Ab [Negative] Negative *NA* (07/20/2012 13:30:00) Cardiolipin IgA 1 IgA Phospholipid Units 14 *NA* (07/20/2012 14:00:00) Cardiolipin IgG 2 IgG Phospholipid Units 15 *NA* (07/20/2012 14:00:00) Cardiolipin IgM 6.0 IgM Phospholipid Units 16 *NA* (07/20/2012 14:00:00) HSV 1 IgG [<=0.8 AI] >8.0 AI 17 *HI* (07/20/2012 14:00:00) HSV 2 IgG [<=0.8 AI] >8.0 AI 18 *HI* (07/20/2012 14:00:00) Homocyst Tot [3.7-13.9 uMol/L] 14.4 uMol/L *HI* (07/20/2012 14:00:00) Quantiferon - TB Gold [NEGATIVE] NEGATIVE 19 *NA* (07/20/2012 14:00:00) NIL 0.04 IU/mL *NA* (07/20/2012 14:00:00) Mitogen - NIL 9.37 IU/mL *NA* (07/20/2012 14:00:00) TB - NIL 0.06 IU/mL 20 *NA* (07/20/2012 14:00:00) Hep Bs Ag [Negative] Negative *NA* (07/20/2012 13:30:00) Hep Bs Ab [<=7.4 mIU/mL] 1.9 mIU/mL 21 (07/20/2012 13:30:00) Hep B Core Ab [Negative] Negative *NA* (07/20/2012 14:00:00) Hep C Ab [Negative] Negative *NA* (07/20/2012 13:30:00) 10Interpretive Data: Reference Ranges: Non-reactive: <0.9 S/CO Ratio Indeterminate: 0.9 - 1.0 S/CO Ratio Reactive: >=1.1 S/CO [id number] Data: Antibody Index (AI) Results Interpretation ------- 0.0-0.8 Negative No detectable IgG Antibody. 0.9-1.0 Equivocal Repeat testing suggested in 10-14 days. >=1.10 Positive Indicates presence of detectable IgG Antibody.12Interpretive Data: Antibody Index (AI) Results Interpretation ------- 0.0-0.8 Negative No detectable IgM Antibody. 0.9-1.0 Equivocal Repeat testing suggested in 10-14 days. >=1.10 Positive Significant level of detectable IgM Antibody, indicative of current or recent infection.13Interpretive Data: Antibody Index (AI) Results Interpretation ------- 0.0-0.8 Negative No detectable IgG Antibody. 0.9-1.0 Equivocal Repeat testing suggested in 10-14 days. >=1.10 Positive Indicates presence of detectable IgG Antibody.14Interpretive Data: Reference Ranges for IgA: 0-11 APL Negative 12-20 APL Inconclusive 21-80 APL Low-Med Positive > 80 APL Strong [id number] Data: Reference Ranges for Ig-14 GPL Negative 15-20 GPL Inconclusive 21-80 GPL Low-Med Positive > 80 GPL Strong [id number] Data: Reference Ranges for IgM: 0-12.4 MPL Negative 12.5-20 MPL Inconclusive 21-80 MPL Low-Med Positive > 80 MPL Strong [id number] Data: Antibody Index (AI) Results Interpretation ------- 0.0-0.8 Negative No detectable IgG Antibody. 0.9-1.0 Equivocal Repeat testing suggested in 10-14 days. >=1.10 Positive Indicates presence of detectable IgG Antibody.18Interpretive Data: Antibody Index (AI) Results Interpretation ------- 0.0-0.8 Negative No detectable IgG Antibody. 0.9-1.0 Equivocal Repeat testing suggested in 10-14 days. >=1.10 Positive Indicates presence of detectable IgG Antibody.19Result Comment: Negative test result. M. tuberculosis complex infection unlikely.20Result Comment: The Nil tube value is used to determine if the patient has a preexisting immune response which could cause a false-positive reading on the test. In order [...] IU/mL. For additional information, please refer to [email or web address] (This link is being provided for informational/ educational purposes only.) Test Performed at: [facility] [address] [id number] DAGO TORRES M.D.21Interpretive Data: <=7.4 mIU/ mL--------Negative for Anti-HBs. Not immune to HBV infection. 7.5-12.4 mIU/mL--Borderline for Anti-HBs and immune status should be further assessed by considering other factors such as clinical status follow-up testing, associated risk factors, and the use of additional diagnostic information. >12.4 mIU/mL-------Positive for Anti-HBs. Immune to HBV infection
--- OUTSIDE RECORDS SUMMARY | 2018-02-27 09:51 | XMS REPORT | CCD ---
:1975 Author Organization [facility] Care Team Providers Name Role Phone Evelyn, Mikaela Antony Referring Provider Allergies, Adverse Reactions, Alerts Substance Reaction Status NKDA Active Problem List Condition Effective Dates Status Diabetes mellitus Resolved HTN - Hypertension Resolved Renal failure syndrome Resolved Medications Medication Instructions Start Date End Date Status Sodium Chloride 0.9% IV 250 mL, Rate: 100 ml/hr, 03/03/2012 03/04/2012 Discontinued 250 mL Infuse over: 2.5 hr, Route: IV, kg, Total Volume: 250, Start date: 03/03/12 7:50:00, Duration: 30 day, Stop date: 04/02/12 7:49:00 lidocaine 0.1 mL, Route: IV, Drug 03/03/2012 03/03/2012 Completed form: INJ, ONCALL, Start date: 03/03/12 5:00:00, Duration: 1 doses or times Lactated Ringers 1,000 mL, Rate: 100 ml/hr, 03/03/2012 03/03/2012 Completed Injection IV 1,000 mL Infuse over: 10 hr, Route: IV, kg, Total Volume: 1,000, Start date: 03/03/12 5:00:00, Duration: 1 doses or times, Stop date: 03/03/12 14:59:00 cefazolin + Sodium 1 gm, Route: IVPB, PRE OP, 03/03/2012 03/03/2012 Completed Chloride 0.9% IV 100 mL Start date: 03/03/12 5:00:00, Duration: 1 doses or times cefazolin + Sodium 1 gm, Route: IVPB, PRE OP, 03/03/2012 03/03/2012 Completed Chloride 0.9% IV 100 mL Start date: 03/03/12 5:00:00, Duration: 1 doses or times clonidine 100 microgram, 1 mL, 03/03/2012 03/03/2012 Completed Route: IVP, Drug form: INJ, ONCE, Start date: 03/03/12 9:30:00, Stop date: 03/03/12 9:30:00 Vital Signs Most recent to oldest 1 2 3 [Reference Range]: Height 167.64 cm (02/28/2012 17:04:00) Systolic Blood Pressure 128 mmHg 111 mmHg 135 mmHg [90-140 mmHg] (03/03/2012 12:30:00) (03/03/2012 12:18:00) (03/03/2012 12:05: 00) Diastolic Blood Pressure 84 mmHg 71 mmHg 85 mmHg [60-90 mmHg] (03/03/2012 12:30:00) (03/03/2012 12:18:00) (03/03/2012 12:05: 00) Respiratory Rate [14-20 16 BRMIN 5 BRMIN 16 BRMIN BRMIN] (03/03/2012 12:30:00) *LOW* (03/03/2012 12:05:00) (03/03/2012 12:18:00) Peripheral Pulse Rate 63 bpm 68 bpm 82 bpm [60-100 bpm] (03/03/2012 12:30:00) (03/03/2012 08:52:00) (03/03/2012 07:45: 00) Weight 98.636 kg (02/28/2012 17:04:00) Results BEDSIDE GLUCOSE TESTING Most recent to oldest [Reference Range]: 1 2 Gluc POC Lifscn [70-99 mg/dL] 167 mg/dL 1 *HI* (03/03/2012 11:47:00) Comment1 Notify RN *NA* (03/03/2012 11:47:00) 1Interpretive Data: Upper Reportable Limit: 200 mg/dL.URINALYSIS Most recent to oldest [Reference Range]: 1 2 UA Turbidity [Clear] Clear (02/28/2012 16:20:00) UA Color STRAW *NA* (02/28/2012 16:20:00) UA pH [5.0-8.0] 6.5 (02/28/2012 16:20:00) UA Spec Grav [<=1.030] 1.020 (02/28/2012 16:20:00) UA Glucose [Negative mg/dL] 100 mg/dL *ABN* (02/28/2012 16:20:00) UA Blood [Negative] Moderate *ABN* (02/28/2012 16:20:00) UA Ketones [Negative] Negative *NA* (02/28/2012 16:20:00) UA Protein [Negative mg/dL] >=300 mg/dL *ABN* (02/28/2012 16:20:00) UA Urobilinogen [0.1-1.0 EU/dL] 0.2 EU/dL (02/28/2012 16:20:00) UA Bili [Negative] Negative *NA* (02/28/2012 16:20:00) UA Leuk Est [Negative] Negative (02/28/2012 16:20:00) UA Nitrite [Negative] Negative (02/28/2012 16:20:00) UA WBC [None Seen] None Seen (02/28/2012 16:20:00) UA RBC [0-2 /HPF] 3-5 /HPF *ABN* (02/28/2012 16:20:00) UA Bacteria [None Seen /HPF] Occasional /HPF (02/28/2012 16:20:00) UA Sq Epi [Few /LPF] Rare /LPF (02/28/2012 16:20:00) Micro? Performed (02/28/2012 16:20:00) CHEMISTRY Most recent to oldest [Reference 1 2 Range]: Sodium Lvl [135-145 mEq/L] 143 mEq/L 142 mEq/L (03/03/2012 07:40:00) (02/28/2012 16:20:00) Potassium Lvl [3.5-5.1 mEq/L] 5.1 mEq/L 4.4 mEq/L (03/03/2012 07:40:00) (02/28/2012 16:20:00) Chloride Lvl [95-109 mEq/L] 114 mEq/L 113 mEq/L *HI* *HI* (03/03/2012 07:40:00) (02/28/2012 16:20:00) CO2 [24-32 mEq/L] 20 mEq/L 21 mEq/L *LOW* *LOW* (03/03/2012 07:40:00) (02/28/2012 16:20:00) AGAP [10.0-20.0 mEq/L] 14.1 mEq/L 12.4 mEq/L (03/03/2012 07:40:00) (02/28/2012 16:20:00) Creatinine Lvl [0.5-1.4 mg/dL] 5.8 mg/dL 5.7 mg/dL *HI* *HI* (03/03/2012 07:40:00) (02/28/2012 16:20:00) eGFR 12 mL/min/1.73m2 2 12 mL/min/1.73m2 3 *NA* *NA* (03/03/2012 07:40:00) (02/28/2012 16:20:00) BUN [7-22 mg/dL] 64 mg/dL 63 mg/dL *HI* *HI* (03/03/2012 07:40:00) (02/28/2012 16:20:00) Glucose Lvl [70-99 mg/dL] 203 mg/dL 4 45 mg/dL 5 *HI* *LOW* (03/03/2012 07:40:00) (02/28/2012 16:20:00) Calcium Lvl [8.5-10.5 mg/dL] 7.6 mg/dL 7.3 mg/dL *LOW* *LOW* (03/03/2012 07:40:00) (02/28/2012 16:20:00) 2Result Comment: The eGFR is calculated using [...] eGFR should be multiplied by the estimated BMI.3Result Comment: The eGFR is calculated using the CKD-EPI formula. In most young, healthy individualsthe eGFR will be >90 mL/ min/1.73m2. The [...] eGFR should be multiplied by the estimated BMI.4Interpretive Data: Adult reference range values reflect the clinical guidelines of the [place] [employer].5Interpretive Data: Adult reference range values reflect the clinical guidelines of the [place] [employer].HEMATOLOGY Most recent to oldest [Reference 1 2 Range]: WBC [3.7-10.4 K/CMM] 7.8 K/CMM 8.5 K/CMM (03/03/2012 07:40:00) (02/28/2012 16:20:00) RBC [4.70-6.10 M/CMM] 2.86 M/CMM 2.59 M/CMM *LOW* *LOW* (03/03/2012 07:40:00) (02/28/2012 16:20:00) Hgb [14.0-18.0 g/dL] 8.6 g/dL 7.8 g/dL *LOW* *LOW* (03/03/2012 07:40:00) (02/28/2012 16:20:00) Hct [42.0-54.0 %] 25.4 % 22.9 % *LOW* *LOW* (03/03/2012 07:40:00) (02/28/2012 16:20:00) MCV [80.0-94.0 fL] 88.8 fL 88.2 fL (03/03/2012 07:40:00) (02/28/2012 16:20:00) MCH [27.0-31.0 pg] 30.0 pg 30.1 pg (03/03/2012 07:40:00) (02/28/2012 16:20:00) MCHC [32.0-36.0 g/dL] 33.8 g/dL 34.1 g/dL (03/03/2012 07:40:00) (02/28/2012 16:20:00) RDW [11.5-14.5 %] 13.3 % 13.2 % (03/03/2012 07:40:00) (02/28/2012 16:20:00) Platelet [133-450 K/CMM] 234 K/CMM 229 K/CMM (03/03/2012 07:40:00) (02/28/2012 16:20:00) MPV [7.4-10.4 fL] 8.1 fL 8.2 fL (03/03/2012 07:40:00) (02/28/2012 16:20:00) Segs [45.0-75.0 %] 65.9 % 60.8 % (03/03/2012 07:40:00) (02/28/2012 16:20:00) Lymphocytes [20.0-40.0 %] 24.9 % 30.6 % (03/03/2012 07:40:00) (02/28/2012 16:20:00) Monocytes [2.0-12.0 %] 5.7 % 6.1 % (03/03/2012 07:40:00) (02/28/2012 16:20:00) Eosinophils [0.0-4.0 %] 3.1 % 2.0 % (03/03/2012 07:40:00) (02/28/2012 16:20:00) Basophils [0.0-1.0 %] 0.4 % 0.5 % (03/03/2012 07:40:00) (02/28/2012 16:20:00) Segs-Bands # [1.5-8.1 K/CMM] 5.1 K/CMM 5.1 K/CMM (03/03/2012 07:40:00) (02/28/2012 16:20:00) Lymphocytes # [1.0-5.5 K/CMM] 1.9 K/CMM 2.6 K/CMM (03/03/2012 07:40:00) (02/28/2012 16:20:00) Monocytes # [0.0-0.8 K/CMM] 0.4 K/CMM 0.5 K/CMM (03/03/2012 07:40:00) (02/28/2012 16:20:00) Eosinophils # [0.0-0.5 K/CMM] 0.2 K/CMM 0.2 K/CMM (03/03/2012 07:40:00) (02/28/2012 16:20:00) Basophils # [0.0-0.2 K/CMM] 0.0 K/CMM 0.0 K/CMM (03/03/2012 07:40:00) (02/28/2012 16:20:00) PT [12.0-14.7 seconds] 13.3 seconds (02/28/2012 16:20:00) INR [0.85-1.17] 0.99 6 (02/28/2012 16:20:00) PTT [22.9-35.8 seconds] 33.7 seconds 7 (02/28/2012 16:20:00) 6Interpretive Data: RECOMMENDED RANGES FOR PROTIME INR: 2.0-3.0 for most medical and surgical thromboembolic states. 2.5-3.5 for artificial heart valves and recurrent embolism. INR SHOULD BE USED ONLY FOR PATIENTS ON STABLE ANTICOAGULANT THERAPY.7Interpretive Data: Heparin Therapeutic Range: 57 - 92 Seconds Procedures Procedures Date Related Diagnosis Cataract surgery
--- OUTSIDE RECORDS SUMMARY | 2018-02-27 09:51 | XMS REPORT | CCD ---
:1975 Author Organization [facility] Outpatient Imaging [facility] Team Providers Name Role Phone Mamadou Sy Consulting Provider Allergies, Adverse Reactions, Alerts Substance Reaction Status NKDA Active Problem List Condition Effective Dates Status Diabetes mellitus Resolved HTN - Hypertension Resolved Renal failure syndrome Resolved
--- OUTSIDE RECORDS SUMMARY | 2018-02-27 09:51 | XMS REPORT | CCD ---
:[address] [facility] Care Team Providers Name Role Phone Jimmy Vasquez Miguelito Consulting Provider Allergies, Adverse Reactions, Alerts Substance Reaction Status NKDA Active Problem List Condition Effective Dates Status Diabetes mellitus Resolved HTN - Hypertension Resolved Renal failure syndrome Resolved Medications Medication Instructions Start Date End Date Status Apidra Substitution Allowed 06/23/2012 Ordered Phenergan 25 mg oral 25 mg, 1 tab, PO, Q4H, 06/23/2012 Ordered tablet PRN, 15 tab, Nausea, Substitution Allowed Lantus Substitution Allowed 06/23/2012 Ordered Sodium Chloride 0.9% 1,000 mL, Rate: 1,000 06/23/2012 06/23/2012 Completed (Bolus) IV 1,000 mL ml/hr, Infuse over: 1 hr, Route: IV, kg, Total Volume: 1,000, Priority: STAT, Start date: 06/23/12 7:08:00, Duration: 1 doses or times, Stop date: 06/23/12 8:07:00 Saline Flush 0.9% 5 mL, Route: IVP, Drug 06/23/2012 06/23/2012 Discontinued Form: INJ, Dosing Weight 90.909, kg, PRN, PRN Line Flush, Start date: 06/23/12 7:08:00, Duration: 24 hr, Stop date: 06/24/12 7:07:00 promethazine 12.5 mg, 50 mL, Route: 06/23/2012 06/23/2012 Completed IVPB, Drug form: SOLN, ONCE, Dosing Weight 90.909, kg, Priority: STAT, Start date: 06/23/12 7:08:00, Stop date: 06/23/12 7:08:00 ondansetron 4 mg, 2 mL, Route: IVP, 06/23/2012 06/23/2012 Completed Drug form: INJ, ONCE, Dosing Weight 90.909, kg, Priority: STAT, Start date: 06/23/12 7:08:00, Stop date: 06/23/12 7:08:00 Vital Signs Most recent to oldest [Reference Range]: 1 Height 167.64 cm (06/23/2012 06:58:00) Weight 90.909 kg (06/23/2012 06:58:00) Results URINALYSIS Most recent to oldest [Reference Range]: 1 UA Turbidity [Clear] Clear (06/23/2012 07:32:00) UA Color [Yellow] Yellow *NA* (06/23/2012 07:32:00) UA pH [5.0-8.0] 8.0 (06/23/2012 07:32:00) UA Spec Grav [<=1.030] 1.013 (06/23/2012 07:32:00) UA Glucose [Negative mg/dL] 200 mg/dL *ABN* (06/23/2012 07:32:00) UA Blood [Negative] Negative (06/23/2012 07:32:00) UA Ketones [Negative mg/dL] Negative mg/dL *NA* (06/23/2012 07:32:00) UA Protein [Negative mg/dL] >=300 mg/dL *ABN* (06/23/2012 07:32:00) UA Urobilinogen [0.1-1.0 mg/dL] <=1.0 mg/dL *NA* (06/23/2012 07:32:00) UA Bili [Negative] Negative *NA* (06/23/2012 07:32:00) UA Leuk Est [Negative] Negative (06/23/2012 07:32:00) UA Nitrite [Negative] Negative (06/23/2012 07:32:00) UA WBC [0-5 /HPF] 2 /HPF (06/23/2012 07:32:00) UA RBC [0-2 /HPF] 1 /HPF (06/23/2012 07:32:00) UA Sq Epi [Few /LPF] Few /LPF *NA* (06/23/2012 07:32:00) UA Hyal Cast [0-2 /LPF] 1 /LPF (06/23/2012 07:32:00) UA Mucus [None Seen /LPF] Few /LPF *NA* (06/23/2012 07:32:00) CHEMISTRY Most recent to oldest [Reference Range]: 1 Sodium Lvl [135-145 mEq/L] 139 mEq/L (06/23/2012 07:32:00) Potassium Lvl [3.5-5.1 mEq/L] 3.6 mEq/L (06/23/2012 07:32:00) Chloride Lvl [95-109 mEq/L] 99 mEq/L (06/23/2012 07:32:00) CO2 [24-32 mEq/L] 34 mEq/L *HI* (06/23/2012 07:32:00) AGAP [10.0-20.0 mEq/L] 9.6 mEq/L *LOW* (06/23/2012 07:32:00) Creatinine Lvl [0.5-1.4 mg/dL] 4.5 mg/dL *HI* (06/23/2012 07:32:00) eGFR 16 mL/min/1.73m2 1 *NA* (06/23/2012 07:32:00) BUN [7-22 mg/dL] 23 mg/dL *HI* (06/23/2012 07:32:00) B/C Ratio [6-25] 5 *LOW* (06/23/2012 07:32:00) Glucose Lvl [70-99 mg/dL] 142 mg/dL 2 *HI* (06/23/2012 07:32:00) Total Protein [6.4-8.4 g/dL] 5.8 g/dL *LOW* (06/23/2012 07:32:00) Albumin Lvl [3.5-5.0 g/dL] 2.3 g/dL *LOW* (06/23/2012 07:32:00) Globulin [2.0-4.0 g/dL] 3.5 g/dL (06/23/2012 07:32:00) A/G Ratio [0.7-1.6] 0.7 (06/23/2012 07:32:00) Calcium Lvl [8.5-10.5 mg/dL] 8.1 mg/dL *LOW* (06/23/2012 07:32:00) ALT [0-65 unit/L] 21 unit/L (06/23/2012:32:00) AST [0-37 unit/L] 27 unit/L (06/23/2012::00) Alk Phos [39-136 unit/L] 84 unit/L (06/23/2012:32:00) Bili Total [0.2-1.3 mg/dL] 0.4 mg/dL (06/23/2012:32:00) Lipase Lvl [73-393 unit/L] 193 unit/L (06/23/2012::00) 1Result Comment: The eGFR is calculated using [...] values reflect the clinical guidelines of the [place] [employer].HEMATOLOGY Most recent to oldest [Reference Range]: 1 WBC [3.7-10.4 K/CMM] 9.6 K/CMM (06/23/2012:32:) RBC [4.70-6.10 M/CMM] 3.16 M/CMM *LOW* (06/23/2012::) Hgb [14.0-18.0 g/dL] 9.4 g/dL *LOW* (06/23/2012:) Hct [42.0-54.0 %] 30.1 % *LOW* (06/23/2012::) MCV [80.0-94.0 fL] 95.0 fL *HI* (06/23/2012:) MCH [27.0-31.0 pg] 29.7 pg (06/23/2012 07:32:00) MCHC [32.0-36.0 g/dL] 31.3 g/dL *LOW* (06/23/2012:32:00) RDW [11.5-14.5 %] 16.7 % *HI* (06/23/2012 07:32:00) Platelet [133-450 K/CMM] 229 K/CMM (06/23/2012:32:00) MPV [7.4-10.4 fL] 7.7 fL (06/23/2012 07:32:00) Segs [45.0-75.0 %] 69.7 % (06/23/2012:32:00) Lymphocytes [20.0-40.0 %] 18.2 % *LOW* (06/23/2012:32:00) Monocytes [2.0-12.0 %] 9.4 % (06/23/2012:32:00) Eosinophils [0.0-4.0 %] 2.5 % (06/23/2012:32:00) Basophils [0.0-1.0 %] 0.2 % (06/23/2012:32:00) Segs-Bands # [1.5-8.1 K/CMM] 6.7 K/CMM (06/23/2012:32:00) Lymphocytes # [1.0-5.5 K/CMM] 1.8 K/CMM (06/23/2012 07:32:00) Monocytes # [0.0-0.8 K/CMM] 0.9 K/CMM *HI* (06/23/2012:32:00) Eosinophils # [0.0-0.5 K/CMM] 0.2 K/CMM (06/23/2012:32:00) Basophils # [0.0-0.2 K/CMM] 0.0 K/CMM (06/23/2012:32:00)
--- OUTSIDE RECORDS SUMMARY | 2018-02-27 09:51 | XMS REPORT | CCD ---
:1975 Author Organization [facility] Care Team Providers Name Role Phone Tal Ramos Referring Provider Mamadou Sy Consulting Provider Allergies, Adverse Reactions, Alerts Substance Reaction Status NKDA Active Problem List Condition Effective Dates Status Diabetes mellitus Resolved HTN - Hypertension Resolved Renal failure syndrome Resolved Vital Signs Most recent to oldest [Reference Range]: 1 Height 167.64 cm (08/18/2012 10:52:00) Weight 81.818 kg (08/18/2012 10:52:00)
--- OUTSIDE RECORDS SUMMARY | 2018-02-27 09:53 | XMS REPORT | Continuity of Care Document ---
:1975 Author Organization [facility] [employer] [facility] Care Team Providers Name Role Phone MD Javier, Lyric Unavailable Unavailable Insurance Providers Payer name Policy type / Policy ID Covered libertarian ID Policy Laws Coverage type MHEALTH - [facility]GE [employer] - [facility] MEDICARE B-[place]: [email or web address] - [facility]G [employer] - [facility] [employer] - [facility] [employer] - [facility] [employer] - [facility] [employer] - [facility] [employer] - [facility] [employer] - [facility] [employer] - [facility] [employer] - [facility] [employer] - [facility] [employer] - MHEALTH [employer] - [facility] [employer] - [facility] [employer] - [facility] [employer] - [facility] [employer] - [facility] Encounters Encounter Performer Location Date Office Visit Lyric Herrera MD [facility] Sep 08, 2013 [id number] Problems Problem Effective Dates Problem Status DIABETIC RETINOPATHY Mar 11, 2012 Active HYPERTENSION Mar 11, 2012 Active DIAB W/O COMP TYPE II/UNS NOT STATED UNCNTRL Jun 02, 2012 Active DIAB W/RENAL MANIFESTS TYPE II/UNS NOT UNCNTRL Jun 02, 2012 Active COUGH Jun 02, 2012 Active RENAL FAILURE, CHRONIC Jun 05, 2012 Active ANEMIA IN CHRONIC KIDNEY DISEASE Jun 05, 2012 Active HYPERLIPIDEMIA - MIXED Aug 31, 2013 Active PRE-OP CV EXAM Aug 31, 2013 Active PHYSICAL EXAM Sep 08, 2013 Active Procedures Date Description Comments Jun 02, 2012 smoking status never smoker Aug 31, 2013 smoking status Never smoker Sep 08, 2013 smoking status Never smoker Medications Medication Instructions Start Date Status LANTUS SOLOSTAR 100 UNIT/ML 18 units at bedtime ms Dec 06, 2011 Active SOLN LIPITOR 20 MG TABS 1 po qd Dec 06, 2011 Active ACCU-CHEK FERNANDA STRP Test 3 times a day. Dec 10, 2011 Active APIDRA 100 UNIT/ML SOLN 10 -15 units tid with meals Dec 06, 2011 Inactive NOVOLOG 100 UNIT/ML SOLN inject 10-15units tid with meals Feb 02, 2013 Active sc ZITHROMAX Z-COLLEEN 250 MG TABS Take 2 tab po qd for first day Jun 02, 2012 Inactive then 1 tab po qd thereafter BD PEN NEEDLE SHORT U/F 31G X 8 use as directed May 18, 2013 Active MM MISC BD INSULIN SYRINGE HALF-UNIT use as directed May 19, 2013 Active 31G X 5/16" 0.3 ML MISC REGLAN 10 MG TABS prn Dec 06, 2011 Inactive REGLAN 10 MG TABS 1 po qd prn Dec 13, 2011 Inactive APIDRA 100 UNIT/ML SOLN inject 10units in the am, May 18, 2013 Inactive 15units at lunch,and 10 units in the evening LISINOPRIL 30 MG TABS 1 po qd Dec 06, 2011 Active Vital Signs Date Description Test Result Jun 02, 2012 weight E&M WEIGHT 202 lb Jun 02, 2012 height E&M HEIGHT 66 in Jun 02, 2012 temperature E&M TEMPERATURE 98.4 deg f Jun 02, 2012 pulse rate E&M PULSE RATE 100 /min Jun 02, 2012 blood pressure, systolic BP SYSTOLIC 131 mm Hg Jun 02, 2012 blood pressure, diastolic BP DIASTOLIC 78 mm Hg Aug 31, 2013 blood pressure, systolic, sitting, right arm BP SYS SIT R 110 null Aug 31, 2013 blood pressure, diastolic, sitting, right arm BP MARIJA SIT R 74 mmHg Aug 31, 2013 pulse rate, sitting, right PULSE SIT R 84 /min Aug 31, 2013 weight E&M WEIGHT 198 lb Aug 31, 2013 blood pressure, systolic BP SYSTOLIC 110 mm Hg Aug 31, 2013 pulse rate E&M PULSE RATE 84 /min Aug 31, 2013 blood pressure, diastolic BP DIASTOLIC 74 mm Hg Sep 08, 2013 weight E&M WEIGHT 204 lb Sep 08, 2013 temperature E&M TEMPERATURE 98.0 deg f Sep 08, 2013 pulse rate E&M PULSE RATE 77 /min Sep 08, 2013 blood pressure, systolic BP SYSTOLIC 170 mm Hg Sep 08, 2013 blood pressure, diastolic BP DIASTOLIC 94 mm Hg Results Date Description Test Name Value Reference Interpretation Status Jun 04, hemoglobin, blood HGB 7.9 g/dL 14.0-18.0 Low 2012Jun 04, hematocrit, blood HCT 23.7 % 42.0-54.0 Low 2012Jun 04, platelet count PLATELETS 289 K/CMM 113-066 7791 /mm3 Jun 04, hemoglobin, blood HGB 7.9 g/dL 14.0-18.0 Low 2012Jun 04, hematocrit, blood HCT 23.7 % 42.0-54.0 Low 2012Jun 04, platelet count PLATELETS 289 K/CMM 356-048 2954 /mm3 Oct 23, hemoglobin, blood HGB 13.2 g/dL 14.0-18.0 Low 2012Oct 23, hematocrit, blood HCT 41.5 % 42.0-54.0 Low 2012Oct 23, platelet count PLATELETS 217 K/CMM 030-743 4066 /mm3 Jun 04, hemoglobin A1C, HGBA1C 5.1 % 2012 blood, as % of total hemoglobin Jun 04, cholesterol, serum CHOLESTEROL 292 mg/dl 120-200 High 2012Jun 04, triglyceride, serum, TRIGLYCERIDE 200 mg/dl 0-200 2012 fasting Jun 04, HDL cholesterol, HDL 37 mg/dl >=35 2012Jun 04, LDL cholesterol, LDL 215 mg/dl 0-129 High 2012Jun 04, sodium, serum SODIUM 139 MEQ/L 764-519 6428 mmol/L Jun 04, potassium, serum POTASSIUM 4.6 MEQ/L 3.5-5.1 2012 mmol/L Jun 04, creatinine, serum CREATININE 7.4 mg/dL 0.5-1.4 High 2012Jun 04, urea nitrogen, blood BUN 53 mg/dL 7-22 High 2012Jun 04, urea BUN/CREAT 7 null 6-25 2013 nitrogen/creatinine ratio, serum Jun 04, albumin, serum ALBUMIN 2.2 g/dL 3.5-5.0 Low 2012Jun 04, calcium, serum CALCIUM 7.2 mg/dL 8.5-10.5 Low 2012Jun 04, alanine SGPT (ALT) 24 U/L 0-65 2012 aminotransferase (SGPT), serum Jun 04, aspartate SGOT (AST) 27 U/L 0-37 2012 aminotransferase (SGOT), serum Jun 04, alkaline ALK PHOS 66 U/L 39-136 2012 phosphatase, serum Nov 11, hemoglobin A1C, HGBA1C 6.9 % 2011 blood, as % of total hemoglobin Nov 11, thyroid stimulating TSH 1.420 0.360-3.740 2011 hormone, serum uIU/mL Nov 11, cholesterol, serum CHOLESTEROL 327 mg/dl 120-200 High 2011Nov 11, triglyceride, serum, TRIGLYCERIDE 155 mg/dl 0-200 2011 fasting Nov 11, HDL cholesterol, HDL 54 mg/dl >=35 2011Nov 11, LDL cholesterol, LDL 242 mg/dl 0-129 High 2011Nov 11, sodium, serum SODIUM 141 MEQ/L 243-533 1488 mmol/L Nov 11, potassium, serum POTASSIUM 4.7 MEQ/L 3.5-5.1 2011 mmol/L Nov 11, creatinine, serum CREATININE 4.9 mg/dL 0.5-1.4 High 2011Nov 11, urea nitrogen, blood BUN 63 mg/dL 7-22 High 2011Nov 11, urea BUN/CREAT 13 null 6-25 2011 nitrogen/creatinine ratio, serum Nov 11, albumin, serum ALBUMIN 1.8 g/dL 3.5-5.0 Low 2011Nov 11, calcium, serum CALCIUM 7.6 mg/dL 8.5-10.5 Low 2011Nov 11, alanine SGPT (ALT) 17 U/L 0-65 2011 aminotransferase (SGPT), serum Nov 11, aspartate SGOT (AST) 14 U/L 0-37 2011 aminotransferase (SGOT), serum Nov 11, alkaline ALK PHOS 68 U/L 39-136 2011 phosphatase, serum Jun 04, hemoglobin A1C, HGBA1C 5.1 % 2012 blood, as % of total hemoglobin Jun 04, cholesterol, serum CHOLESTEROL 292 mg/dl 120-200 High 2012Jun 04, triglyceride, serum, TRIGLYCERIDE 200 mg/dl 0-200 2012 fasting Jun 04, HDL cholesterol, HDL 37 mg/dl >=35 2012 serum Jun 04, LDL cholesterol, LDL 215 mg/dl 0-129 High 2012Jun 04, sodium, serum SODIUM 139 MEQ/L 123-314 1180 mmol/L Jun 04, potassium, serum POTASSIUM 4.6 MEQ/L 3.5-5.1 2012 mmol/L Jun 04, creatinine, serum CREATININE 7.4 mg/dL 0.5-1.4 High 2012Jun 04, urea nitrogen, blood BUN 53 mg/dL 7-22 High 2012Jun 04, urea BUN/CREAT 7 null 6-25 2012 nitrogen/creatinine ratio, serum Jun 04, albumin, serum ALBUMIN 2.2 g/dL 3.5-5.0 Low 2012Jun 04, calcium, serum CALCIUM 7.2 mg/dL 8.5-10.5 Low 2012Jun 04, alanine SGPT (ALT) 24 U/L 0-65 2012 aminotransferase (SGPT), serum Jun 04, aspartate SGOT (AST) 27 U/L 0-37 2012 aminotransferase (SGOT), serum Jun 04, alkaline ALK PHOS 66 U/L 39-136 2012 phosphatase, serum Oct 23, hemoglobin A1C, HGBA1C 7.3 % <=5.6 High 2012 blood, as % of total hemoglobin Oct 23, cholesterol, serum CHOLESTEROL 178 mg/dl <=199 2012Oct 23, triglyceride, serum, TRIGLYCERIDE 129 mg/dl <=149 2012 fasting Oct 23, HDL cholesterol, HDL 40 mg/dl >=61 Low 2012Oct 23, LDL cholesterol, LDL 112 mg/dl <=99 High 2012 serum Oct 23, sodium, serum SODIUM 141 MEQ/L 945-052 0813 mmol/L Oct 23, potassium, serum POTASSIUM 4.5 MEQ/L 3.5-5.1 2012 mmol/L Oct 23, creatinine, serum CREATININE 6.4 mg/dL 0.5-1.4 High 2012Oct 23, urea nitrogen, blood BUN 57 mg/dL 7-22 High 2012Oct 23, urea BUN/CREAT 9 null 6-25 2013 nitrogen/creatinine ratio, serum Oct 23, albumin, serum ALBUMIN 3.6 g/dL 3.5-5.0 2012Oct 23, calcium, serum CALCIUM 9.0 mg/dL 8.5-10.5 2012Oct 23, alanine SGPT (ALT) 21 U/L 0-65 2012 aminotransferase (SGPT), serum Oct 23, aspartate SGOT (AST) 9 U/L 0-37 2012 aminotransferase (SGOT), serum Oct 23, alkaline ALK PHOS 67 U/L 39-136 2012 phosphatase, serum
--- OUTSIDE RECORDS SUMMARY | 2018-02-27 09:54 | XMS REPORT ---
:1975 Author Organization [facility] Address [address] [place] [address] Dr. Leon [address] [place] [id number] Care Team Providers Name Role Phone Unavailable Unavailable Unavailable Problems This patient has no known problems. Allergies, Adverse Reactions, Alerts This patient has no known allergies or adverse reactions. Medications This patient has no known medications.
--- OUTSIDE RECORDS SUMMARY | 2018-02-27 09:54 | XMS REPORT | Continuity of Care Document ---
:1975 Author Organization [facility] [employer] [facility] Care Team Providers Name Role Phone MD Murray, Oralia Unavailable Unavailable Insurance Providers Payer name Policy type / Policy ID Covered libertarian ID Policy Laws Coverage type MHEALTH - [facility] EDGE [employer] - [facility] EDG MEDICARE B-[place]: [employer] - KG FundingHS EDG itBit - KG FundingHS EDG itBit - KG FundingHS EDG itBit - HS EDG itBit - HS EDG itBit - HS EDG itBit - HS EDG [employer] - HS EDG Encounters Encounter Performer Location Date Office Visit Oralia Gao MD [facility] Aug 31, 2013 [address] Problems Problem Effective Dates Problem Status DIABETIC [...] PRE-OP CV EXAM Aug 31, 2013 Active Procedures Date Description Comments Jun 02, 2012 smoking status never smoker Aug 31, 2013 smoking status Never smoker Medications Medication Instructions Start Date Status LANTUS SOLOSTAR 100 UNIT/ML 18 units at bedtime sc Dec 06, 2011 Active SOLN LIPITOR 20 MG TABS 1 po qd Dec 06, 2011 Active LISINOPRIL 30 MG TABS 1 po bid Dec 06, 2011 Active ACCU-CHEK FERNANDA STRP [...] at lunch,and 10 units in the evening Vital Signs Date Description Test Result Jun [...] pressure, diastolic BP DIASTOLIC 74 mm Hg Results Date Description Test Name Value Reference Interpretation Status Jun 04, hemoglobin, blood HGB 7.9 g/dL 14.0-18.0 Low 2012Jun 04, hematocrit, blood HCT 23.7 % 42.0-54.0 Low 2012Jun 04, platelet count PLATELETS 289 K/CMM 601-175 6434 /mm3 Jun 04, hemoglobin, blood HGB 7.9 g/dL 14.0-18.0 Low 2012Jun 04, hematocrit, blood HCT 23.7 % 42.0-54.0 Low 2012Jun 04, platelet count PLATELETS 289 K/CMM 365-118 3602 /mm3 Oct 23, hemoglobin, blood HGB 13.2 g/dL 14.0-18.0 Low 2012Oct 23, hematocrit, blood HCT 41.5 % 42.0-54.0 Low 2012Oct 23, platelet count PLATELETS 217 K/CMM 505-185 5009 /mm3 Jun 04, hemoglobin A1C, HGBA1C 5.1 % 2012 blood, as % of total hemoglobin Jun 04, cholesterol, serum CHOLESTEROL 292 mg/dl 120-200 High 2012Jun 04, triglyceride, serum, TRIGLYCERIDE 200 mg/dl 0-200 2012 fasting Jun 04, HDL cholesterol, HDL 37 mg/dl >=35 2012Jun 04, LDL cholesterol, LDL 215 mg/dl 0-129 High 2012Jun 04, sodium, serum SODIUM 139 MEQ/L 789-003 6841 mmol/L Jun 04, potassium, serum POTASSIUM 4.6 MEQ/L 3.5-5.1 2012 mmol/L Jun 04, creatinine, serum CREATININE 7.4 mg/dL 0.5-1.4 High 2012Jun 04, urea nitrogen, blood BUN 53 mg/dL 7- High 2012Jun 04, urea BUN/CREAT 7 null [...] 11, HDL cholesterol, HDL 54 mg/dl >=35 2011 serum Nov 11, LDL cholesterol, LDL 242 mg/dl 0-129 High 2011Nov 11, sodium, serum SODIUM 141 MEQ/L 597-261 3612 mmol/L Nov 11, potassium, serum POTASSIUM 4.7 [...] 2012Jun 04, sodium, serum SODIUM 139 MEQ/L 576-151 2457 mmol/L Jun 04, potassium, serum POTASSIUM 4.6 [...] HDL cholesterol, HDL 40 mg/dl >=61 Low 2012 serum Oct 23, LDL cholesterol, LDL 112 mg/dl <=99 High 2012 serum Oct 23, sodium, serum SODIUM 141 MEQ/L 947-120 1698 mmol/L Oct 23, potassium, serum POTASSIUM 4.5 MEQ/L 3.5-5.1 2012 mmol/L Oct 23, creatinine, serum CREATININE 6.4 mg/dL 0.5-1.4 High 2012Oct 23, urea nitrogen, blood BUN 57 mg/dL 7-22 High 2012Oct 23, urea BUN/CREAT 9 null 6-25 2012 nitrogen/creatinine ratio, serum Oct 23, albumin, serum ALBUMIN 3.6 g/dL 3.5-5.0 2012Oct 23, calcium, serum CALCIUM 9.0 mg/dL 8.5-10.5 2012Oct 23, alanine SGPT (ALT) 21 U/L 0-65 2012 aminotransferase (SGPT), serum Oct 23, aspartate SGOT (AST) 9 U/L 0-37 2012 aminotransferase (SGOT), serum Oct 23, alkaline ALK PHOS 67 U/L 39-136 2012 phosphatase, serum
--- OUTSIDE RECORDS SUMMARY | 2018-02-27 09:54 | XMS REPORT | Continuity of Care Document ---
:1975 Author Organization [facility] [employer] [facility] Care Team Providers Name Role Phone MD Lupillo, Elmer Unavailable Unavailable Insurance Providers Payer name Policy type / Policy ID Covered green party ID Policy Laws Coverage type MHEALTH - [facility] EDGE [employer] - [facility] EDG MEDICARE B-[place]: NOVITAS for[MD] - [facility] EDG [employer] - [facility] EDG [employer] - [facility] EDG [employer] - [facility] EDG [employer] - [facility] EDG [employer] - [facility] EDG [employer] - [facility] EDG [employer] - [facility] EDG [employer] - [facility] EDG [employer] - [facility] EDG [employer] - [facility] EDG [employer] - MHEALTH [employer] - [facility] EDG A[employer] - [facility] EDG [employer] - [facility] EDG [employer] - [facility] EDG [employer] - [facility] EDG [employer] - MHEALTH [employer] - [facility] EDG [employer] - [facility] EDG [employer] - [facility]G Encounters Encounter Performer Location Date Office Visit Elmer Wesley MD [facility] [employer] [facility] Sep 07, 2014 Problems Problem Effective Dates Problem Status DIABETIC [...] 2013 Active PHYSICAL EXAM Sep 08, 2013 Inactive GASTROPARESIS Sep 07, 2014 Active ERECTILE DYSFUNCTION Sep 07, 2014 Active PHYSICAL EXAMINATION Sep 07, 2014 Active Procedures Date Description Comments Jun 02, 2012 smoking status never smoker Aug 31, 2013 smoking status Never smoker Sep 08, 2013 smoking status Never smoker Sep 07, 2014 smoking status Never smoker Medications Medication Instructions Start Date Status LANTUS SOLOSTAR 100 UNIT/ML 18 units at bedtime ok Dec 06, 2011 Active SOLN ACCU-CHEK FERNANDA STRP Test 3 times a [...] at lunch,and 10 units in the evening LIPITOR 20 MG TABS 1 po qd Dec 06, 2011 Inactive LISINOPRIL 30 MG TABS 1 tablet orally twice a week on Dec 06, 2011 Active Friday and CALCIUM ACETATE 667 MG CAPS one cap tid with meals Sep 07, 2014 Active Vital Signs Date Description Test Result Jun 02, 2012 weight E&M - 3141-9 WEIGHT 202 lb Jun 02, 2012 height E&M - 8302-2 HEIGHT 66 in Jun 02, 2012 temperature E&M TEMPERATURE 98.4 deg f Jun 02, 2012 pulse rate E&M - 8867-4 PULSE RATE 100 /min Jun 02, 2012 blood pressure, systolic - 8480-6 BP SYSTOLIC 131 mm Hg Jun 02, 2012 blood pressure, diastolic - 8462-4 BP DIASTOLIC 78 mm Hg Aug 31, 2013 blood pressure, systolic, sitting, right arm BP SYS SIT R 110 null Aug 31, 2013 blood pressure, diastolic, sitting, right arm BP MARIJA SIT R 74 mmHg Aug 31, 2013 pulse rate, sitting, right PULSE SIT R 84 /min Aug 31, 2013 weight E&M - 3141-9 WEIGHT 198 lb Aug 31, 2013 blood pressure, systolic - 8480-6 BP SYSTOLIC 110 mm Hg Aug 31, 2013 pulse rate E&M - 8867-4 PULSE RATE 84 /min Aug 31, 2013 blood pressure, diastolic - 8462-4 BP DIASTOLIC 74 mm Hg Sep 08, 2013 weight E&M - 3141-9 WEIGHT 204 lb Sep 08, 2013 temperature E&M TEMPERATURE 98.0 deg f Sep 08, 2013 pulse rate E&M - 8867-4 PULSE RATE 77 /min Sep 08, 2013 blood pressure, systolic - 8480-6 BP SYSTOLIC 170 mm Hg Sep 08, 2013 blood pressure, diastolic - 8462-4 BP DIASTOLIC 94 mm Hg Sep 07, 2014 blood pressure, systolic - 8480-6 BP SYSTOLIC 168 mm Hg Sep 07, 2014 blood pressure, diastolic - 8462-4 BP DIASTOLIC 99 mm Hg Sep 07, 2014 pulse rate E&M - 8867-4 PULSE RATE 82 /min Sep 07, 2014 temperature E&M TEMPERATURE 98.3 deg f Sep 07, 2014 height E&M - 8302-2 HEIGHT 66 in Sep 07, 2014 weight E&M - 3141-9 WEIGHT 210 lb Sep 07, 2014 respiratory rate E&M - 9279-1 RESP RATE 14 /min Results Date Description Test Name Value Reference Interpretation Status Jun 04, hemoglobin, blood HGB 7.9 g/dL 14.0-18.0 Low 2012Jun 04, hematocrit, blood HCT 23.7 % 42.0-54.0 Low 2012Jun 04, platelet count PLATELETS 289 K/CMM 954-816 3765 /mm3 Jun 04, hemoglobin, blood HGB 7.9 g/dL 14.0-18.0 Low 2012Jun 04, hematocrit, blood HCT 23.7 % 42.0-54.0 Low 2012Jun 04, platelet count PLATELETS 289 K/CMM 566-961 6330 /mm3 Oct 23, hemoglobin, blood HGB 13.2 g/dL 14.0-18.0 Low 2012Oct 23, hematocrit, blood HCT 41.5 % 42.0-54.0 Low 2012Oct 23, platelet count PLATELETS 217 K/CMM 146-315 3514 /mm3 Jun 04, hemoglobin A1C, HGBA1C 5.1 % 2012 blood, as % of total hemoglobin Jun 04, cholesterol, serum CHOLESTEROL 292 mg/dl 120-200 High 2012Jun 04, triglyceride, serum, TRIGLYCERIDE 200 mg/dl 0-200 2012 fasting Jun 04, HDL cholesterol, HDL 37 mg/dl >=35 2012 serum Jun 04, LDL cholesterol, LDL 215 mg/dl 0-129 High 2012 serum Jun 04, sodium, serum SODIUM 139 MEQ/L 044-267 7459 mmol/L Jun 04, potassium, serum POTASSIUM 4.6 [...] 2011Nov 11, sodium, serum SODIUM 141 MEQ/L 587-444 4718 mmol/L Nov 11, potassium, serum POTASSIUM 4.7 [...] 2012Jun 04, sodium, serum SODIUM 139 MEQ/L 798-837 5906 mmol/L Jun 04, potassium, serum POTASSIUM 4.6 [...] Oct 23, sodium, serum SODIUM 141 MEQ/L 839-486 1482 mmol/L Oct 23, potassium, serum POTASSIUM 4.5 [...]
--- OUTSIDE RECORDS SUMMARY | 2018-02-27 09:54 | XMS REPORT | Continuity of Care Document ---
:1975 [facility] Providers Name Role Phone MD Javier, Lyric Unavailable Unavailable Insurance Providers Payer name Policy type / Policy ID Covered republican ID Policy Laws Coverage type MHEALTH - [facility] EDGE [employer] - [facility] EDG MEDICARE B-[place]: NOVITAS [employer] - [facility] EDG [employer] - [facility] EDG [employer] - [facility] EDG [employer] - [facility] EDG [employer] - [facility] EDG [employer] - [facility] EDG [employer] - MHHS EDG [employer] - MHHS EDG [employer] - MHHS EDG [employer] - MHHS EDG [employer] - MHHS EDG [employer] - MHEALTH [employer] - MH[facility] EDG [employer] - [facility] EDG [employer] - [facility] EDG [employer] - [facility] EDG [employer] - [facility] EDG Encounters Encounter Performer Location Date Lab Report Lyric Herrera MD [facility] Feb 23, 2014 Problems Problem Effective Dates Problem Status [...] Active PHYSICAL EXAM Sep 08, 2013 Inactive Procedures Date Description Comments Jun 02, 2012 [...] - 8462-4 BP DIASTOLIC 94 mm Hg Results Date Description Test Name Value Reference Interpretation Status Jun 04, hemoglobin, blood HGB 7.9 g/dL 14.0-18.0 Low 2012Jun 04, hematocrit, blood HCT 23.7 % 42.0-54.0 Low 2012Jun 04, platelet count PLATELETS 289 K/CMM 561-373 4674 /mm3 Jun 04, hemoglobin, blood HGB 7.9 g/dL 14.0-18.0 Low 2012Jun 04, hematocrit, blood HCT 23.7 % 42.0-54.0 Low 2012Jun 04, platelet count PLATELETS 289 K/CMM 319-730 9289 /mm3 Oct 23, hemoglobin, blood HGB 13.2 g/dL 14.0-18.0 Low 2012Oct 23, hematocrit, blood HCT 41.5 % 42.0-54.0 Low 2012Oct 23, platelet count PLATELETS 217 K/CMM 002-115 8662 /mm3 Jun 04, hemoglobin A1C, HGBA1C 5.1 % 2012 blood, as % of total hemoglobin Jun 04, cholesterol, serum CHOLESTEROL 292 mg/dl 120-200 High 2012Jun 04, triglyceride, serum, TRIGLYCERIDE 200 mg/dl 0-200 2012 fasting Jun 04, HDL cholesterol, HDL 37 mg/dl >=35 2012 serum Jun 04, LDL cholesterol, LDL 215 mg/dl 0-129 High 2012 serum Jun 04, sodium, serum SODIUM 139 MEQ/L 675-161 8839 mmol/L Jun 04, potassium, serum POTASSIUM 4.6 [...] 04, alanine SGPT (ALT) 24 U/L 0-65 2013 aminotransferase (SGPT), serum Jun 04, aspartate SGOT [...] 2011Nov 11, sodium, serum SODIUM 141 MEQ/L 685-197 8489 mmol/L Nov 11, potassium, serum POTASSIUM 4.7 [...] Jun 04, sodium, serum SODIUM 139 MEQ/L 330-519 0091 mmol/L Jun 04, potassium, serum POTASSIUM 4.6 [...] Oct 23, sodium, serum SODIUM 141 MEQ/L 375-984 7101 mmol/L Oct 23, potassium, serum POTASSIUM 4.5 [...]
[2018-02-27] MEDS ORDERED: METOCLOPRAMIDE 10 MG/2mL INJ ONE (10:37)
[2018-02-27] MEDS ORDERED: ONDANSETRON 4 MG/2 ML VIAL ONE ×2 (10:37→13:00)
[2018-02-27] MEDS ORDERED: NA CHLORIDE 0.9% 1,000 ML ONE (10:37)
[2018-02-27 10:54] LABS: Absolute Lymphocytes (CBC) 0.7 K/uL (0.7-4.9); Absolute Monocytes 0.5 K/uL (0.1-1.3); Basophils % 0.6 % (0-1.3); Hematocrit 27.9 % (39.6-49.0); Lymphocytes % 6.6 % (15.3-44.8); MCH 26.4 pg (27.0-35.0); MCV 80.5 fL (80-100); MPV 6.9 fL (7.6-11.3); Monocytes % 4.6 % (3.3-12.3); RBC Red Blood Cell Count 3.47 M/uL (4.33-5.43)
[2018-02-27 10:59] LABS: Protime INR 1.03
--- NOTE | 2018-02-27 11:11 | RAD REPORT ---
EXAM DESCRIPTION: RAD - Abdomen Acute Series - 02/27/2018 11:00 am CLINICAL HISTORY: Abdominal pain, history of gastro paresis COMPARISON: Chest exam February 18, CT imaging September 2016, chest examination October 2016 FINDINGS: No peripheral mass or consolidation identifiable. Interstitial markings are prominent. Pat tern is less pronounced than seen on the February 18 comparison study. Pattern is similar to slightly worse than seen October 2016. Heart size and pulmonary vasculature are normal. No pleural effusion, pn eumothorax or other acute cardiopulmonary process seen. Bowel gas pattern is nonspecific. No bowel obstruction, free air or other acute findings. No suspicio us calcifications. Vascular calcifications are present. No other suspicious for significant findings. IMPRESSION: Lung parenchymal opacification has improved since February 18 imaging. Lung markings are slightly more pronounced than an October 2016 study that is baseline. A mild interst itial edema or infiltrate is suspected.
[2018-02-27 11:25] LABS: Albumin 3.3 g/dL (3.4-5.0); Bilirubin Direct 0.2 mg/dL (0-0.2); Bilirubin Total 0.5 mg/dL (0.2-1.0); Magnesium 2.4 mg/dL (1.8-2.4); Potassium 4.3 mmol/L (3.5-5.1); Protein, Total 7.9 g/dL (6.4-8.2); Troponin (Emerg Dept Use Only) 0.02 ng/mL (0.0-0.045)
--- NOTE | 2018-02-27 12:48 | EKG ---
Test Date: 2018-02-27 Test Time: 10:41:29 Press Tender Star Signal: KERRI MEASUREMENT RESULTS: Intervals: Rate: 96 OK: 168 QRSD: 80 QT: 374 QTc: 472 Blount: P: 60 OK: 168 QRS: -12 T: 58 INTERPRETIVE STATEMENTS: Normal sinus rhythm Normal ECG Compared to ECG 02/18/2018 19:11:49 No significant changes Electronically Signed On 02-27-18 12:47:31 RN SECURITY by Alonso Lopez
--- NOTE | 2018-02-27 12:57 | ER ---
Nurse's Notes [facility] Name: Chase Chacon Jr Age: 42 yrs Sex: Male : 1975 Arrival Date: 02/27/2018 Time: 09:38 Bed 18 Private MD: Kyler Ogden Diagnosis: Vomiting;End stage renal disease;Gastroparesis;Type 2 diabetes mellitus;Essential (primary) hypertension;Anemia, unspecified Presentation: 02/27 09:45 Presenting complaint: N/V/D and upper abdominal pain since last night. Not tolerating hb liquids. Actively vomiting in triage. Pt missed HD this morning, last HD was Friday. Transition of care: patient was not received from another setting of care. Onset of symptoms was February 26, 2018. Risk Assessment: Do you want to hurt yourself or someone else? Patient reports no desire to harm self or others. Initial Sepsis Screen: Does the patient meet any 2 criteria? No. Patient's initial sepsis screen is negative. Does the patient have a suspected source of infection? No. Patient's initial sepsis screen is negative. Care prior to arrival: None. 09:45 Method Of Arrival: Ambulatory hb 09:45 Acuity: LEON 3 hb Historical: - Allergies: 09:47 Phenergan; hb - Home Meds: 09:47 Novolog Sub-Q 10 10 UNITS AM, 15 UNITS LUNCH AND 10 UNITS AT NIGHT [Active]; hb - PMHx: 09:47 ESRD; Diabetes - NIDDM; Gastroparesis; Hypertension; kidney disease; hb - Immunization history:: Adult Immunizations up to date. - Social history:: Smoking status: Patient/guardian denies using tobacco. - Ebola Screening: : No symptoms or risks identified at this time. - Family history:: not pertinent. Screenin:48 Abuse screen: Denies threats or abuse. Denies injuries from another. Nutritional hb screening: No deficits noted. Tuberculosis screening: No symptoms or risk factors identified. Fall Risk None identified. Assessment: 09:55 General: Appears in no apparent distress. uncomfortable, Behavior is calm, cooperative, ca1 appropriate for age. Pain: Complains of pain in abdomen Pain does not radiate. Pain currently is 8 out of 10 on a pain scale. Quality of pain is described as crampy, Pain began last night. Is intermittent. Neuro: Level of Consciousness is awake, alert, obeys commands, Oriented to person, place, time, situation. Cardiovascular: Heart tones S1 S2 Capillary refill < 3 seconds. Respiratory: Airway is patent Trachea midline Respiratory effort is even, unlabored, Respiratory pattern is regular, symmetrical, Breath sounds are clear bilaterally. GI: Abdomen is round non-distended, Bowel sounds present X 4 quads. Abd is soft and non tender X 4 quads. Reports diarrhea, nausea, vomiting. : No signs and/or symptoms were reported regarding the genitourinary system. EENT: No signs and/or symptoms were reported regarding the EENT system. Derm: Skin is pink, warm \T\ dry. Musculoskeletal: No signs and/or symptoms reported regarding the musculoskeletal system. 10:45 Reassessment: Patient appears in no apparent distress at this time. Patient and/or hb family updated on plan of care and expected duration. Pain level reassessed. Patient is alert, oriented x 3, equal unlabored respirations, skin warm/dry/pink. 11:55 Reassessment: Patient appears in no apparent distress at this time. Patient and/or ca1 family updated on plan of care and expected duration. Pain level reassessed. Patient is alert, oriented x 3, equal unlabored respirations, skin warm/dry/pink. Patient asleep with family. . 13:01 Reassessment: Patient appears in no apparent distress at this time. Patient is alert, ca1 oriented x 3, equal unlabored respirations, skin warm/dry/pink. . Reassessment:. GI: Reports nausea. 13:58 Reassessment: Patient appears in no apparent distress at this time. Patient reports of ca1 diarrhea since in ED 2x. Informed Dr. Lake. Informed patient of hosipitalization. . 14:45 Reassessment: Patient appears in no apparent distress at this time. Patient and/or hb family updated on plan of care and expected duration. Pain level reassessed. Patient is alert, oriented x 3, equal unlabored respirations, skin warm/dry/pink. Vital Signs: 09:46 BP 172 / 93; Pulse 106; Resp 16; Temp 98.4; Pulse Ox 100% on R/A; Pain 4/10; hb 10:45 BP 194 / 100; Pulse 98; Resp 18; Pulse Ox 95% ; ca1 11:26 BP 176 / 95; Pulse 89; Resp 19; Pulse Ox 84% on R/A; hb 11:29 Pulse Ox 95% 2 lpm ; hb 12:00 BP 194 / 100; Pulse 86; Resp 17; Pulse Ox 91% on 2 lpm NC; ca1 13:00 BP 205 / 106; Pulse 86; Resp 21; Pulse Ox 96% on 4 lpm NC; hb 14:15 BP 185 / 93; Pulse 86; Resp 17; Pulse Ox 94% on 4 lpm NC; ca1 ED Course: 09:38 Patient arrived in ED. sb2 09:38 Kyler Ogden MD is Private Physician. sb2 09:45 Ilana Benjamin, JENNIE is Primary Nurse. hb 09:46 Triage completed. hb 09:48 Arm band placed on right wrist. hb 10:14 Sunny Lake MD is Attending Physician. ralph 10:43 Patient taken to ultrasound. via wheelchair. ca1 10:45 Initial lab(s) drawn, by me, sent to lab. Inserted saline lock: 20 gauge in right mh5 forearm, using aseptic technique. Blood collected. 10:46 Patient has correct armband on for positive identification. Placed in gown. Bed in low mh5 position. Call light in reach. Side rails up X 1. Adult w/ patient. Warm blanket given. Pulse ox on. NIBP on. 10:47 Basic Metabolic Panel Sent. mh5 10:47 CBC with Diff Sent. 5 10:47 LFT's Sent. 5 10:47 Magnesium Sent. 5 10:47 NT PRO-BNP Sent. 5 10:47 PT-INR Sent. 5 10:47 Troponin (emerg Dept Use Only) Sent. 5 10:49 Lipase Sent. 5 10:56 X-ray completed. Patient tolerated procedure well. ls3 11:03 Abdomen Acute Series XRAY In Process Unspecified. EDMS 11:35 Notified ED physician of a critical lab result(s). Crea 9.5. ca1 12:53 Cody Giles DO is Hospitalizing Provider. ralph 15:03 No provider procedures requiring assistance completed. Patient admitted, IV remains in ca1 place. Administered Medications: 10:27 Drug: NS 0.9% 1000 ml Route: IV; Rate: 75 ml/hr; Site: right antecubital; ca1 15:22 Follow up: IV Status: Infusion continued upon admission ca1 10:28 Drug: Zofran 4 mg Route: IVP; Site: right antecubital; ca1 11:10 Follow up: Response: No adverse reaction ca1 10:28 Drug: Reglan 10 mg Route: IVP; Site: right antecubital; ca1 11:09 Follow up: Response: No adverse reaction ca1 12:56 Drug: Zofran 4 mg Route: IVP; Site: right antecubital; ca1 14:00 Follow up: Response: No adverse reaction ca1 12:59 Drug: Trandate 20 mg Route: IVP; Site: right antecubital; ca1 14:00 Follow up: Response: No adverse reaction ca1 Outcome: 12:56 Decision to Hospitalize by Provider. ralph 14:55 Admitted to Tele accompanied by tech, via wheelchair, with oxygen, Report called to ca1 Chelle Gao RN 14:55 Condition: stable ca1 14:55 Instructed on the need for admit, Demonstrated understanding of instructions. 15:03 Patient left the ED. Signatures: Dispatcher [employer] EDSunny Stanford MD MD cha Baxter, Heather, RN RN Natalie Swan 5 Marie Ortiz 2 Romy Rivera 3 Vilma Gomez RN RN ca1 Corrections: (The following items were deleted from the chart) 13:03 13:01 Reassessment: ca1 ca1
--- NOTE | 2018-02-27 12:57 | EDPHYS ---
Physician Documentation [facility] Name: Chase Chacon Jr Age: 42 yrs Sex: Male : 1975 Arrival Date: 02/27/2018 Time: 09:38 Bed 18 Private MD: Kyler Ogden ED Physician Sunny Lake HPI: 02/27 10:19 This 42 yrs old Male presents to ER via Ambulatory with complaints of Vomiting.ralph 10:19 The patient presents to the emergency department with nausea, vomiting, that is ralph continuous. Onset: The symptoms/episode began/occurred 3 day(s) ago. Possible causes: unknown. The symptoms are aggravated by nothing. food , The symptoms are alleviated by remaining still. Associated signs and symptoms: The patient has no apparent associated signs or symptoms. Severity of symptoms: At their worst the symptoms were moderate in the emergency department the symptoms are unchanged. The patient has not experienced similar symptoms in the past. Historical: - Allergies: 09:47 Phenergan; hb - Home Meds: :47 Novolog Sub-Q 10 10 UNITS AM, 15 UNITS LUNCH AND 10 UNITS AT NIGHT [Active]; hb - PMHx: 09:47 ESRD; Diabetes - NIDDM; Gastroparesis; Hypertension; kidney disease; hb - Immunization history:: Adult Immunizations up to date. - Social history:: Smoking status: Patient/guardian denies using tobacco. - Ebola Screening: : No symptoms or risks identified at this time. - Family history:: not pertinent. ROS: 10:19 Constitutional: Negative for fever, chills, and weight loss, Eyes: Negative for injury, ralph pain, redness, and discharge, ENT: Negative for injury, pain, and discharge, Neck: Negative for injury, pain, and swelling, Cardiovascular: Negative for chest pain, palpitations, and edema, Respiratory: Negative for shortness of breath, cough, wheezing, and pleuritic chest pain, Back: Negative for injury and pain, : Negative for injury, bleeding, discharge, and swelling, MS/Extremity: Negative for injury and deformity, Skin: Negative for injury, rash, and discoloration, Neuro: Negative for headache, weakness, numbness, tingling, and seizure, Psych: Negative for depression, anxiety, suicide ideation, homicidal ideation, and hallucinations, Allergy/Immunology: Negative for hives, rash, and allergies, Endocrine: Negative for neck swelling, polydipsia, polyuria, polyphagia, and marked weight changes, Hematologic/Lymphatic: Negative for swollen nodes, abnormal bleeding, and unusual bruising. 10:19 Abdomen/GI: Positive for abdominal pain, nausea and vomiting. Exam: 10:19 Constitutional: This is a well developed, well nourished patient who is awake, alert, ralph and in no acute distress. Head/Face: Normocephalic, atraumatic. Eyes: Pupils equal round and reactive to light, extra-ocular motions intact. Lids and lashes normal. Conjunctiva and sclera are non-icteric and not injected. Cornea within normal limits. Periorbital areas with no swelling, redness, or edema. ENT: Nares patent. No nasal discharge, no septal abnormalities noted. Tympanic membranes are normal and external auditory canals are clear. Oropharynx with no redness, swelling, or masses, exudates, or evidence of obstruction, uvula midline. Mucous membranes moist. Neck: Trachea midline, no thyromegaly or masses palpated, and no cervical lymphadenopathy. Supple, full range of motion without nuchal rigidity, or vertebral point tenderness. No Meningismus. Chest/axilla: Normal chest wall appearance and motion. Nontender with no deformity. No lesions are appreciated. Respiratory: Lungs have equal breath sounds bilaterally, clear to auscultation and percussion. No rales, rhonchi or wheezes noted. No increased work of breathing, no retractions or nasal flaring. Abdomen/GI: Soft, non-tender, with normal bowel sounds. No distension or tympany. No guarding or rebound. No evidence of tenderness throughout. Back: No spinal tenderness. No costovertebral tenderness. Full range of motion. Male : Normal genitalia with no discharge or lesions. Skin: Warm, dry with normal turgor. Normal color with no rashes, no lesions, and no evidence of cellulitis. MS/ Extremity: Pulses equal, no cyanosis. Neurovascular intact. Full, normal range of motion. Neuro: Awake and alert, GCS 15, oriented to person, place, time, and situation. Cranial nerves II-XII grossly intact. Motor strength 5/5 in all extremities. Sensory grossly intact. Cerebellar exam normal. Normal gait. Psych: Awake, alert, with orientation to person, place and time. Behavior, mood, and affect are within normal limits. 10:19 Cardiovascular: Rate: tachycardic, Rhythm: regular, Pulses: no pulse deficits are appreciated, Edema: is not appreciated, JVD: is not appreciated. Vital Signs: 09:46 BP 172 / 93; Pulse 106; Resp 16; Temp 98.4; Pulse Ox 100% on R/A; Pain 4/10; hb 10:45 BP 194 / 100; Pulse 98; Resp 18; Pulse Ox 95% ; ca1 11:26 BP 176 / 95; Pulse 89; Resp 19; Pulse Ox 84% on R/A; hb 11:29 Pulse Ox 95% 2 lpm ; hb 12:00 BP 194 / 100; Pulse 86; Resp 17; Pulse Ox 91% on 2 lpm NC; ca1 13:00 BP 205 / 106; Pulse 86; Resp 21; Pulse Ox 96% on 4 lpm NC; hb 14:15 BP 185 / 93; Pulse 86; Resp 17; Pulse Ox 94% on 4 lpm NC; ca1 MDM: 10:14 Patient medically screened. [facility] 10:21 Data reviewed: vital signs, nurses notes, lab test result(s), EKG, radiologic studies, ralph plain films. 02/27 10:18 Order name: Basic Metabolic Panel; Complete Time: 11:35 [facility] 02/27 10:18 Order name: CBC with Diff [facility] 02/27 10:18 Order name: LFT's; Complete Time: 11:35 [facility] 02/27 10:18 Order name: Magnesium; Complete Time: 11:35 [facility] 02/27 10:18 Order name: NT PRO-BNP; Complete Time: 11:35 [facility] 02/27 10:18 Order name: PT-INR; Complete Time: 11:06 [facility] 02/27 10:18 Order name: Troponin (emerg Dept Use Only); Complete Time: 11:35 [facility] 02/27 10:18 Order name: Abdomen Acute Series XRAY; Complete Time: 11:35 [facility] 02/27 10:18 Order name: Lipase; Complete Time: 11:35 [facility] 02/27 13:21 Order name: Urine Dipstick--Ancillary (enter results); Complete Time: 14:21 02/27 10:18 Order name: EKG; Complete Time: 10:19 [facility] 02/27 10:18 Order name: Cardiac monitoring; Complete Time: 10:47 [facility] 02/27 10:18 Order name: EKG - Nurse/Tech; Complete Time: 10:47 [facility] 02/27 10:18 Order name: IV Saline Lock; Complete Time: 10:47 [facility] 02/27 10:18 Order name: Labs collected and sent; Complete Time: 10:47 [facility] 02/27 10:18 Order name: O2 Per Protocol; Complete Time: 10:47 [facility] 02/27 10:18 Order name: O2 Sat Monitoring; Complete Time: 10:47 [facility] 02/27 10:18 Order name: Urine Dipstick-Ancillary (obtain specimen); Complete Time: 13:25 [facility] Administered Medications: 10:27 Drug: NS 0.9% 1000 ml Route: IV; Rate: 75 ml/hr; Site: right antecubital; ca1 15:22 Follow up: IV Status: Infusion continued upon admission ca1 10:28 Drug: Zofran 4 mg Route: IVP; Site: right antecubital; ca1 11:10 Follow up: Response: No adverse reaction ca1 10:28 Drug: Reglan 10 mg Route: IVP; Site: right antecubital; ca1 11:09 Follow up: Response: No adverse reaction ca1 12:56 Drug: Zofran 4 mg Route: IVP; Site: right antecubital; ca1 14:00 Follow up: Response: No adverse reaction ca1 12:59 Drug: Trandate 20 mg Route: IVP; Site: right antecubital; ca1 14:00 Follow up: Response: No adverse reaction ca1 Disposition: 02/27/18 12:56 Hospitalization ordered by Cody Giles for Observation. Preliminary diagnosis are Vomiting, End stage renal disease, Gastroparesis, Type 2 diabetes mellitus, Essential (primary) hypertension, Anemia, unspecified. - Bed requested for Telemetry/MedSurg (observation). - Status is Observation. hb - Condition is Fair. - Problem is new. - Symptoms have improved. UTI on Admission? No Signatures: Dispatcher [employer] EDSravani Timmons Corey, MD MD cha Baxter, Heather, RN RN hb Vilma Gomez RN RN ca1 Corrections: (The following items were deleted from the chart) 14:03 12:56 Hospitalization Ordered by Cody Giles DO for Observation. Preliminary bd diagnosis is Vomiting; End stage renal disease; Gastroparesis; Type 2 diabetes mellitus; Essential (primary) hypertension. Bed requested for Telemetry/MedSurg (observation). Status is Observation. Condition is Fair. Problem is new. Symptoms have improved. UTI on Admission? No. ralph 14:22 14:03 02/27/2018 12:56 Hospitalization Ordered by Cody Giles DO for Observation. ralph Preliminary diagnosis is Vomiting; End stage renal disease; Gastroparesis; Type 2 diabetes mellitus; Essential (primary) hypertension. Bed requested for Telemetry/MedSurg (observation). Status is Observation. Condition is Fair. Problem is new. Symptoms have improved. UTI on Admission? No. bd 15:03 14:22 02/27/2018 12:56 Hospitalization Ordered by Cody Giles DO for Observation. hb Preliminary diagnosis is Vomiting; End stage renal disease; Gastroparesis; Type 2 diabetes mellitus; Essential (primary) hypertension; Anemia, unspecified. Bed requested for Telemetry/MedSurg (observation). Status is Observation. Condition is Fair. Problem is new. Symptoms have improved. UTI on Admission? No. rlaph
[2018-02-27] MEDS ORDERED: LABETALOL HCL 100 MG/20 ML ONE (13:00)
[2018-02-27 13:29] LABS: Urine Blood TRACE (NEG); Urine Glucose 1+ (NEG); Urine Protein 3+ (NEG); Urine pH 8.5 (5.0-7.0)
--- NOTE | 2018-02-27 13:53 | P.HP ---
Certification for Inpatient Patient admitted to: Observation With expected LOS: <2 Midnights Patient will require the following post-hospital care: None Practitioner: I am a practitioner with admitting privileges, knowledge of patient current condition, hospital course, and medical plan of care. Services: Services provided to patient in accordance with Admission requirements found in Title 42 Section 412.3 of the Code of Federal Regulations Patient History Date of Service: 02/27/18 Primary Care Provider: Dr. Murrieta; Nephrology-Dr. Mccoy; GI-Dr. Pérez/Dr. Bailey Reason for admission: Nausea, vomiting History of Present Illness: 42-year-old male presented to the emergency room with increasing nausea and vomiting. Patient reports increased nausea and vomiting since yesterday. He also reports some diarrhea. Patient has history of increased nausea and vomiting with suspected diabetic gastroparesis. Patient reports that he had any EGD and colonoscopy last year and this year with local GI. He was told that both endoscopies were within normal range. No medication has been prescribed for him. He has been told in the past that he has gastroparesis but that there was no specific medication for this. He came to the ER with increasing nausea. He has not been able to go to dialysis today due to increased nausea. He was not able to take his blood pressure medication as well. His last hemodialysis was on Friday. In the ER patient evaluated. Patient required multiple medications for nausea. White count 10.1, hemoglobin 9.1. Sodium 137, potassium 4.3, BUN of 42, creatinine 9.5 with a GFR 6 glucose 153. Lipase unremarkable. Abdominal series unremarkable. BNP elevated. Blood pressure elevated as well patient stabilize in the emergency room and admitted for further evaluation. When I saw the patient in the ER nausea was improved. Patient appears stable. at bedside. Patient with history of diabetes insulin dependent, end-stage renal disease on dialysis, hypertension, diabetic gastroparesis. Allergies promethazine [From Phenergan] Allergy (Intermediate, Unverified 10/28/16 12:44) "makes me antsy" Home medications list reviewed: Yes Home Medications: Calcium Acetate [Phoslo] 1 cap PO TIDWM 10/28/16 Insulin Aspart [Novolog] 10 unit SQ DAILY AT SUPPER 10/28/16 Insulin Aspart [Novolog] 10 unit SQ DAILY WITH BREAKFAST 10/28/16 Insulin Aspart [Novolog] 15 unit SQ LUNCH 10/28/16 Ciprofloxacin HCl [Cipro 500 MG Tablet] 500 mg PO BID #12 tab 10/29/16 Codeine/APAP [Tylenol W/Codeine #3 tab] 1 tab PO Q4HP PRN #30 tab 10/29/16 - Past Medical/Surgical History Diabetic: Yes -: Diabetes mellitus type 2, insulin dependent -: Hypertension -: GERD -: Diabetic gastroparesis -: End stage renal disease on hemodialysis -: Cataract surgery Psychosocial/ Personal History: Patient is . He has no children. - Family History Father -: Diabetes, Kidney disease - Social History Smoking Status: Never smoker Alcohol use: No CD- Drugs: No Caffeine use: Yes Place of Residence: Home Review of Systems General: As per HPI Eyes: Unremarkable ENT: Unremarkable Respiratory: Unremarkable Cardiovascular: Unremarkable Gastrointestinal: Nausea, Vomiting, Diarrhea, As per HPI Genitourinary: Unremarkable Musculoskeletal: Unremarkable Integumentary: Unremarkable Neurological: Unremarkable Lymphatics: Unremarkable Physical Examination - Physical Exam General: Alert, In no apparent distress, Oriented x3, Cooperative HEENT: Atraumatic, Normocephalic, PERRLA, Mucous membr. moist/pink Neck: Supple, No Thyromegaly Respiratory: Clear to auscultation bilaterally, Normal air movement Cardiovascular: Normal pulses, Regular rate/rhythm Gastrointestinal: Normal bowel sounds, Soft and benign, Non-distended, No ascites, No tenderness, No masses, No rebound, No guarding Musculoskeletal: No erythema, No tenderness, No warmth Integumentary: No tenderness/swelling, No erythema, No warmth, No cyanosis Neurological: Normal speech, Normal strength at 5/5 x4 extr, Normal tone, Normal affect Lymphatics: No axilla or inguinal lymphadenopathy - Studies Laboratory Data (last 24 hrs) 02/27/18 10:30: PT 12.2, INR 1.03 02/27/18 10:30: WBC 10.1 D, Hgb 9.1 L, Hct 27.9 L, Plt Count 212 D 02/27/18 10:30: Sodium 137, Potassium 4.3, BUN 42 H, Creatinine 9.50 H* D, Glucose 153 H, Magnesium 2.4, Total Bilirubin 0.5, AST 10 L, ALT 20, Alkaline Phosphatase 69, Lipase 137 Assessment and Plan - Plan Impression: Intractable nausea and vomiting suspicious for diabetic gastroparesis End-stage renal disease on hemodialysis Diabetes mellitus type 2, insulin-dependent Hypertension GERD Plan: Intractable nausea and vomiting suspicious for diabetic gastroparesis: Patient will be admitted for further evaluation. Will continue to provide medication for nausea. Will try to obtain records from GI locally as the patient had a recent EGD and colonoscopy. Will check A1c to determine if diabetes well controlled. Will provide Reglan IV. Will continue to monitor and adjust appropriately. Will advance diet as tolerated. Anticipate discharge in the next 24 hr. Patient will receive dialysis. End-stage renal disease on hemodialysis: Nephrology consulted. Patient will require dialysis today. Diabetes mellitus type 2, insulin-dependent: Will check A1c. Will start basal insulin. Will continue with sliding scale. Hypertension: Will provide medication IV for elevated blood pressure. Patient will require dialysis. Will obtain and restart home medication. GERD: Will start PPI. Will obtain information from GI. Discharge Plan: Home Plan to discharge in: 24 Hours - Advance Directives Does patient have a Living Will: No Does patient have a Durable POA for Healthcare: No - Code Status/Comfort Care Code Status Assessed: Yes (Patient full code ) Time Spent Managing Pts Care (In Minutes): 55
[2018-02-27] MEDS ORDERED: ACETAMINOPHEN 500 MG TAB PO PRN (14:58)
[2018-02-27] MEDS ORDERED: SODIUM CHLORIDE 0.9% 10ML INJ IV PRN (14:58)
[2018-02-27] MEDS ORDERED: D50W 25 GM/50 ML SYRINGE IV PRN (14:58)
[2018-02-27] MEDS ORDERED: GLUCAGON 1 MG/VIAL IM PRN (14:58)
[2018-02-27] MEDS: HYDRALAZINE HCL 20 MG/ML VIAL IV PRN ×2 (16:02→23:30)
[2018-02-27 16:28] LABS: Thyroid Stimulating Hormone 1.1 uIU/mL (0.360-3.740)
[2018-02-27] MEDS: INSULIN -REGULAR HUMAN 50 UNIT/0.5 ML ML SQ SCH ×2 (16:30→21:46)
[2018-02-27] MEDS: CA ACETATE 667 MG CAP PO SCH (18:00)
[2018-02-27] MEDS: LOSARTAN POTASSIUM 50 MG TABLET PO SCH (18:51)
[2018-02-27] MEDS: ONDANSETRON 4 MG/2 ML VIAL IV PRN (20:34)
[2018-02-27] MEDS ORDERED: EPOETIN ALFA 10,000 UNIT/ML VIAL SQ ONE (20:50)
[2018-02-27] MEDS ORDERED: NA CHLORIDE 0.9% 1,000 ML IV PRN (20:51)
[2018-02-27] MEDS ORDERED: MANNITOL 25% 12.5 GM/50 ML VIAL IV PRN (20:51)
[2018-02-27] MEDS: NIFEDIPINE 90 MG PO SCH (21:00)
[2018-02-27] MEDS ORDERED: EPOETIN ALFA 10,000 UNIT/ML VIAL IV SCH (21:00)
[2018-02-27] MEDS ORDERED: ALBUMIN HUMAN 25% 50 ML IV SCH (21:00)
[2018-02-27] MEDS: ATORVASTATIN 20 MG TAB PO SCH (21:47)
[2018-02-27] MEDS: INSULIN GLARGINE 100 UNITS/ML SQ SCH (21:47)
[2018-02-27] MEDS: ROPINIROLE HCL 1 MG TAB PO SCH (21:48)
[2018-02-27] MEDS: TRAZODONE 50 MG TABLET PO PRN (21:52)
[2018-02-28] MEDS: ONDANSETRON 4 MG/2 ML VIAL IV PRN ×3 (01:39→18:17)
[2018-02-28 06:12] LABS: Absolute Monocytes 0.6 K/uL (0.1-1.3); Absolute Neutrophil 8.2 K/uL (1.8-8.0); Basophils % 1.3 % (0-1.3); Eosinophils % 9.6 % (0-4.4); Hematocrit 27.6 % (39.6-49.0); Lymphocytes % 8.7 % (15.3-44.8); MCH 26.1 pg (27.0-35.0); MCV 80.5 fL (80-100); MPV 7.7 fL (7.6-11.3); Monocytes % 5.5 % (3.3-12.3); RBC Red Blood Cell Count 3.43 M/uL (4.33-5.43)
[2018-02-28 06:44] LABS: Magnesium 2.4 mg/dL (1.8-2.4); Potassium 5.1 mmol/L (3.5-5.1)
[2018-02-28] MEDS: INSULIN -REGULAR HUMAN 50 UNIT/0.5 ML ML SQ SCH ×4 (08:14→20:26)
[2018-02-28] MEDS: ENOXAPARIN 30 MG/0.3 ML SQ SCH (08:15)
[2018-02-28] MEDS: CA ACETATE 667 MG CAP PO SCH ×3 (08:15→17:12)
[2018-02-28] MEDS: PANTOPRAZOLE 40 MG INJ IVP SCH (08:16)
[2018-02-28] MEDS: VITAMIN D 5,000 UNIT CAP PO SCH (08:16)
[2018-02-28] MEDS: LOSARTAN POTASSIUM 50 MG TABLET PO SCH ×2 (08:16→21:35)
[2018-02-28] MEDS: NIFEDIPINE 90 MG PO SCH (08:16)
--- NOTE | 2018-02-28 11:16 | P.PN ---
Date of Service: 02/28/18 patient seen/examined on dialysis. bp on higher side: uf about 2.5 litres. patient on hydralazine and as per RN got nifidipine just this am. continue to monitor bp on dialysis. seen on dialysis treatment. reviewed with shoe turner. changed k to 2 k bath as patient has k level of 5.1 today. clinically looks well. alert. denies pain. breathing ok. answers questions appropriately.
--- NOTE | 2018-02-28 11:31 | P.PN ---
Subjective Date of Service: 02/28/18 Primary Care Provider: Dr. Murrieta; Nephrology-Dr. Mccoy; GI-Dr. Pérez/Dr. Bailey Chief Complaint: Nausea, vomiting Subjective: Improving (No nausea this morning. Blood pressure is elevated. Patient to have dialysis.) Physical Examination - Vital Signs Temperature: 99.4 F Blood Pressure: 197/98 Pulse: 91 Respirations: 18 Pulse Ox (%): 95 - Physical Exam General: Alert, In no apparent distress, Oriented x3, Cooperative HEENT: Atraumatic Neck: Supple Respiratory: Clear to auscultation bilaterally, Normal air movement Cardiovascular: Normal pulses, Regular rate/rhythm Gastrointestinal: Normal bowel sounds, Soft and benign, Non-distended, No tenderness, No masses, No rebound, No guarding Musculoskeletal: No erythema, No tenderness, No warmth Integumentary: No tenderness/swelling, No erythema, No warmth, No cyanosis Neurological: Normal speech, Normal strength at 5/5 x4 extr, Normal tone, Normal affect - Studies Laboratory Data (last 24 hrs) 02/27/18 10:30: Sodium 137, Potassium 4.3, BUN 42 H, Creatinine 9.50 H* D, Glucose 153 H, Magnesium 2.4, Total Bilirubin 0.5, AST 10 L, ALT 20, Alkaline Phosphatase 69, Lipase 137 Medications List Reviewed: Yes Assessment & Plan Discharge Plan: Home Plan to discharge in: 24 Hours Physician Review Additional Text: Impression: Intractable nausea and vomiting complicated with history of chronic diabetic gastroparesis End-stage renal disease on hemodialysis Diabetes mellitus type 2, insulin-dependent Hypertension GERD Plan: Intractable nausea and vomiting complicated with history of chronic diabetic gastroparesis: Patient doing better today. Will advance diet as tolerated. Patient seen by GI locally. Will try to obtain records from his GI specialist. Nausea may be related to need for dialysis. Will reassess this afternoon and discuss with nephrology. If stable will consider discharge later today. End-stage renal disease on hemodialysis: Nephrology consulted. Patient to have dialysis. Diabetes mellitus type 2, insulin-dependent: A1c 6.5. Will continue with basal insulin. Will continue to adjust appropriately.. Hypertension: Medication added for better blood pressure control. I have asked the patient to have his family member to bring all medications from home to review and adjust appropriately. GERD: Will continue with PPI. Will obtain information from GI. Time Spent Managing Pts Care (In Minutes): 55
[2018-02-28] MEDS: HYDRALAZINE HCL 20 MG/ML VIAL IV PRN ×2 (11:46→17:10)
[2018-02-28] MEDS: ATORVASTATIN 20 MG TAB PO SCH (21:34)
[2018-02-28] MEDS: DOXAZOSIN 2 MG TAB PO SCH (21:34)
[2018-02-28] MEDS: METOCLOPRAMIDE 10 MG/2mL INJ IV PRN (21:34)
[2018-02-28] MEDS: ROPINIROLE HCL 1 MG TAB PO SCH (21:34)
[2018-02-28] MEDS: INSULIN GLARGINE 100 UNITS/ML SQ SCH (21:35)
[2018-02-28] MEDS: TRAZODONE 50 MG TABLET PO PRN (21:45)
[2018-03-01] MEDS: HYDRALAZINE HCL 20 MG/ML VIAL IV PRN ×2 (00:22→07:55)
[2018-03-01] MEDS: INSULIN -REGULAR HUMAN 50 UNIT/0.5 ML ML SQ SCH ×2 (07:30→12:06)
[2018-03-01] MEDS: METOCLOPRAMIDE 10 MG/2mL INJ IV PRN (07:54)
[2018-03-01] MEDS: CA ACETATE 667 MG CAP PO SCH ×2 (07:55→12:02)
[2018-03-01] MEDS: VITAMIN D 5,000 UNIT CAP PO SCH (07:55)
[2018-03-01] MEDS: DOXAZOSIN 2 MG TAB PO SCH (07:56)
[2018-03-01] MEDS: ENOXAPARIN 30 MG/0.3 ML SQ SCH (07:56)
[2018-03-01] MEDS: LOSARTAN POTASSIUM 50 MG TABLET PO SCH (07:56)
[2018-03-01] MEDS: PANTOPRAZOLE 40 MG INJ IVP SCH (07:57)
--- NOTE | 2018-03-01 10:34 | P.DS ---
Admission Date: 02/27/18 Discharge Date: 03/01/18 Primary Care Provider: Dr. Murrieta; Nephrology-Dr. Mccoy; GI-Dr. Pérez/Dr. Bailey Disposition: ROUTINE DISCHARGE Discharge Condition: GOOD Reason for Admission: Nausea, vomiting Consultations: Nephrology-Dr. Mccoy/Dr. Roper Procedures: Dialysis done. Medical problem list: Intractable nausea and vomiting complicated with history of chronic diabetic gastroparesis End-stage renal disease on hemodialysis Diabetes mellitus type 2, insulin-dependent Hypertension GERD Depression with anxiety Restless leg syndrome Hyperlipidemia Obesity, BMI 31.6 Brief History of Present Illness: 42-year-old male presented to the emergency room with increasing nausea and vomiting. Patient reports increased nausea and vomiting since yesterday. He also reports some diarrhea. Patient has history of increased nausea and vomiting with suspected diabetic gastroparesis. Patient reports that he had any EGD and colonoscopy last year and this year with local GI. He was told that both endoscopies were within normal range. No medication has been prescribed for him. He has been told in the past that he has gastroparesis but that there was no specific medication for this. He came to the ER with increasing nausea. He has not been able to go to dialysis today due to increased nausea. He was not able to take his blood pressure medication as well. His last hemodialysis was on Friday. In the ER patient evaluated. Patient required multiple medications for nausea. White count 10.1, hemoglobin 9.1. Sodium 137, potassium 4.3, BUN of 42, creatinine 9.5 with a GFR 6 glucose 153. Lipase unremarkable. Abdominal series unremarkable. BNP elevated. Blood pressure elevated as well patient stabilize in the emergency room and admitted for further evaluation. When I saw the patient in the ER nausea was improved. Patient appears stable. at bedside. Patient with history of diabetes insulin dependent, end-stage renal disease on dialysis, hypertension, diabetic gastroparesis. Hospital Course: Patient presented with intractable nausea and vomiting secondary to chronic diabetic gastroparesis. Patient received medication during his stay. This may have been exacerbated by elevated blood pressure and patient missing dialysis. This improved. Patient has seen GI specialty it in the area. Patient has had workup in the past. Patient will continue with GI soft diet. At discharge patient will continue with Reglan 10 mg 3 times a day as needed. Recommendation is for the patient follow up with GI to further monitor and address. Patient has end-stage renal disease on hemodialysis. Prior to admission patient had missed dialysis due to nausea. Patient received dialysis during his stay. At discharge he will continue with dialysis as directed. At discharge patient will continue with his medication PhosLo 667 mg 1 pill twice daily along with vitamin-D. Patient has diabetes mellitus type 2. He is insulin-dependent. A1c 6.5. Patient will continue with his insulin regimen of Humalog sliding scale. Recommendation is to maintain blood sugars less than 140 fasting and less than 200 after meals. Further adjustment can be done by his PCP. Patient would benefit with endocrinology evaluation as an outpatient. Patient has hypertension. This is not well controlled. Medication adjusted and added during his stay. At discharge carvedilol and ramipril discontinued. At discharge patient will continue with Doxazosin 2 mg 1 pill twice daily, Losartan 50 mg 1 pill twice daily, and Nifedipine ER 90 mg twice daily. Recommendation is to maintain blood pressures less 150/80. Further adjustment can be done by nephrology or his PCP. Patient has GERD. Prilosec has been discontinued. Patient will continue with Protonix 40 mg 1 pill once daily. Further evaluation can be done by GI as an outpatient. Patient has depression with anxiety. Patient will continue with trazodone 100 mg at bedtime as needed for insomnia and Xanax 0.25 mg 1 pill twice daily as needed for anxiety. Patient with restless leg syndrome. Patient will continue with Requip 1 mg at bedtime. Patient with hyperlipidemia. Patient will continue with Lipitor 20 mg daily. Patient with obesity, BMI 31.6. Lifestyle modification education provided. Vital Signs/Physical Exam: Temp Pulse Resp BP Pulse Ox 97.3 F 93 H 18 177/73 H 95 03/01/18 08:00 03/01/18 09:56 03/01/18 08:00 03/01/18 09:56 03/01/18 08:00 General: Alert, In no apparent distress, Oriented x3, Cooperative HEENT: Atraumatic Neck: Supple Respiratory: Clear to auscultation bilaterally, Normal air movement Cardiovascular: Normal pulses, Regular rate/rhythm Gastrointestinal: Normal bowel sounds, Soft and benign, Non-distended, No tenderness, No masses, No rebound, No guarding Musculoskeletal: No erythema, No tenderness, No warmth Integumentary: No tenderness/swelling, No erythema, No warmth, No cyanosis Neurological: Normal speech, Normal strength at 5/5 x4 extr, Normal tone, Normal affect Lymphatics: No axilla or inguinal lymphadenopathy Laboratory Data at Discharge: WBC 10.9 K/uL (4.3-10.9) 02/28/18 05:56 Hgb 8.9 g/dL (13.6-17.9) L 02/28/18 05:56 Hct 27.6 % (39.6-49.0) L 02/28/18 05:56 Plt Count 182 K/uL (152-406) 02/28/18 05:56 PT 12.2 SECONDS (9.5-12.5) 02/27/18 10:30 INR 1.03 02/27/18 10:30 Sodium 139 mmol/L (136-145) 02/28/18 05:56 Potassium 5.1 mmol/L (3.5-5.1) 02/28/18 05:56 BUN 50 mg/dL (7-18) H 02/28/18 05:56 Creatinine 11.40 mg/dL (0.55-1.3) H* D 02/28/18 05:56 Glucose 206 mg/dL (74-106) H 02/28/18 05:56 Magnesium 2.4 mg/dL (1.8-2.4) 02/28/18 05:56 Total Bilirubin 0.5 mg/dL (0.2-1.0) 02/27/18 10:30 AST 10 U/L (15-37) L 02/27/18 10:30 ALT 20 U/L (12-78) 02/27/18 10:30 Alkaline Phosphatase 69 U/L (45-117) 02/27/18 10:30 Lipase 137 U/L (73-393) 02/27/18 10:30 Home Medications: Calcium Acetate [Phoslo*] 1 cap PO TIDWM 10/28/16 Atorvastatin Calcium [Lipitor*] 20 mg PO BEDTIME 02/27/18 Insulin Lispro [Humalog*] 1 unit SQ AC 02/27/18 Nifedipine [Nifedipine ER] 90 mg PO BID 02/27/18 Ropinirole HCl [Requip*] 1 mg PO BEDTIME 02/27/18 Trazodone HCl 100 mg PO BEDTIME PRN PRN 02/27/18 ALPRAZolam [Xanax*] 0.25 mg PO BID PRN 02/28/18 Calcium Acetate [Phoslo] 667 mg PO BID 02/28/18 Doxazosin [Cardura*] 2 mg PO BID #60 tab 03/01/18 Losartan Potassium [Cozaar*] 50 mg PO BID #60 tablet 03/01/18 Metoclopramide HCl [Reglan] 10 mg PO TID PRN #15 tablet 03/01/18 Pantoprazole [Protonix Tab] 40 mg PO DAILY #30 tab 03/01/18 New Medications: Doxazosin [Cardura*] 2 mg PO BID #60 tab Losartan Potassium [Cozaar*] 50 mg PO BID #60 tablet Metoclopramide HCl [Reglan] 10 mg PO TID PRN #15 tablet PRN Reason: Nausea Pantoprazole [Protonix Tab] 40 mg PO DAILY #30 tab Patient Discharge Instructions: 1. Patient will follow up with his PCP in 1 week to follow up this hospitalization. 2. Patient presented with intractable nausea and vomiting secondary to chronic diabetic gastroparesis. Patient received medication during his stay. This may have been exacerbated by elevated blood pressure and patient missing dialysis. This improved. Patient has seen GI specialty it in the area. Patient has had workup in the past. Patient will continue with GI soft diet. At discharge patient will continue with Reglan 10 mg 3 times a day as needed. Recommendation is for the patient follow up with GI to further monitor and address. 3. Patient has end-stage renal disease on hemodialysis. Prior to admission patient had missed dialysis due to nausea. Patient received dialysis during his stay. At discharge he will continue with dialysis as directed. At discharge patient will continue with his medication PhosLo 667 mg 1 pill twice daily along with vitamin-D. 4. Patient has diabetes mellitus type 2. He is insulin-dependent. A1c 6.5. Patient will continue with his insulin regimen of Humalog sliding scale. Recommendation is to maintain blood sugars less than 140 fasting and less than 200 after meals. Further adjustment can be done by his PCP. Patient would benefit with endocrinology evaluation as an outpatient. 5. Patient has hypertension. This is not well controlled. Medication adjusted and added during his stay. At discharge carvedilol and ramipril discontinued. At discharge patient will continue with Doxazosin 2 mg 1 pill twice daily, Losartan 50 mg 1 pill twice daily, and Nifedipine ER 90 mg twice daily. Recommendation is to maintain blood pressures less 150/80. Further adjustment can be done by nephrology or his PCP. 6. Patient has GERD. Prilosec has been discontinued. Patient will continue with Protonix 40 mg 1 pill once daily. Further evaluation can be done by GI as an outpatient. 7. Patient has depression with anxiety. Patient will continue with trazodone 100 mg at bedtime as needed for insomnia and Xanax 0.25 mg 1 pill twice daily as needed for anxiety. 8. Patient with restless leg syndrome. Patient will continue with Requip 1 mg at bedtime. 9. Patient with hyperlipidemia. Patient will continue with Lipitor 20 mg daily. 10. Patient with obesity, BMI 31.6. Lifestyle modification education provided. Diet: GI soft diet Activity: Ad chandrika Time spent managing pt's care (in minutes): 55
[2018-03-01] MEDS: NIFEDIPINE 90 MG PO SCH (10:42)
[2018-03-01] MEDS ORDERED: METOCLOPRAMIDE 5 MG TAB PO SCH (11:30)
[2018-03-01] MEDS ORDERED: DOXAZOSIN 2 MG TAB PO SCH (21:00)
== END 2018-03-01 14:08 | disposition home or self-care (01) ==
LOC: ER 09:33 → ERHOLD 13:40 → 4TH 14:52
PROVIDERS: ADMIT Family Medicine; ATTEND Family Medicine
DX: E11.43 Type 2 diabetes mellitus with diabetic autonomic (poly)neuropathy (principal); K31.84 Gastroparesis; I12.0 Hypertensive chronic kidney disease with stage 5 chronic kidney disease or end stage renal disease; E11.22 Type 2 diabetes mellitus with diabetic chronic kidney disease; N18.6 End stage renal disease; K21.9 Gastro-esophageal reflux disease without esophagitis; E66.9 Obesity, unspecified; Z68.31 Body mass index [BMI] 31.0-31.9, adult; F41.8 Other specified anxiety disorders; G25.81 Restless legs syndrome; Z99.2 Dependence on renal dialysis
CPT/HCPCS: 36415; 74022; 80048 ×2; 80076; 81003; 82962 ×8; 83036; 83690; 83735 ×2; 83880; 84439; 84443; 84484; 85025 ×2; 85610; 87045; 87046; 87177; 87209; 87493; 90935; 93005; 96361; 96374; 96375; 99285; C9113 ×2; G0257; G0378 ×2; J0360 ×6; J1650 ×2; J2405 ×6; J2765 ×3; J7030; Q4081

== ENCOUNTER 2018-04-14 11:38 | Emergency (ER) | payer OTHER ==
--- OUTSIDE RECORDS SUMMARY | 2018-04-14 11:43 | XMS REPORT | Clinical Summary ---
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
--- OUTSIDE RECORDS SUMMARY | 2018-04-14 11:54 | XMS REPORT | Continuity of Care Document ---
:1975 Author Organization Interface Problems Problem Status Onset Classification Date Comments Source Date Reported FOLLOW UP Active [address] ESRD, Active [facility] PRE-TRANSPLANT 016 Medical WORK UP Center LAB Active [address] Center UPDATE Active [address] Center F/U Active [address] BDDC/ K59.1 Active [facility] FUNCTIONAL [facility] Medical DIARRHEA; R11.2 Center BDDC-GASTRITIS; Active [facility] COLITIS [address] [place] [address] Center H/O NAUSEA AND Active [facility] VOMITING [address] [place] [address] DDC-NUTRITION Active [facility] INTIAL VISIT [address] [place] [address] Center PER TAWNYA Active [facility] C.PEPTIDE/CLAYTON [address] [place] [address] GASTROPARESIS/ PRE Active [facility] TRANSPLANT WORK UP 015 [facility] Center ESRD/ PRE Active [facility] TRANSPLANT WORK UP 015 [facility] Center Gastroparesis Active Problem 02/24/2016 Data [facility] syndrome<sup>6</rocha 015 migrated Medical p> from [facility], Centricity OPID on 09/21/14. [place] Impotence<sup>8</s Active Problem 02/24/2016 Data [place] up> 015 migrated Medical from [facility], Centricity OPID on 09/21/14. [place] Physical Active Problem 02/24/2016 Data [facility] examination 015 migrated Medical procedure<sup>10</ from [facility], sup> Centricity OPID on 09/21/14. 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 [place] Mixed Active Problem 08/22/2014 7Data The hyperlipidemia<sup 014 migrated [place] >7</sup> from [facility] Centricity on 08/13/14. HYPERLIPIDEMIA - Active Condition 09/07/2014 [facility] MIXED 014 Group PRE-OP CV EXAM Active Condition 09/07/2014 Medical 014 Group UPDATE VISIT Active [address] 789.06 Active The 014 [place] ABD PAIN, VOMITING Active The 014 [place] Final: Unspecified 05/29/2013 [facility] Gastritis and [address] [place] [address] Gastroduodenitis, Center without Mention of Hemorrhage NAUSEA, VOMITING Active Greater 014 [facility] ABDOMINAL PAIN, Active Greater INTRACTABLE 014 [facility] VOMITING WIT Discharge 05/13/2013 Greater Diagnosis: 014 [facility] Gastroparesis VOMITTING Active Greater [place]14 [place] TRANSPLANT EVAL Active The 014 [place] LABS Active [address] RENAL TRANSPLANT Active [facility] WK UP [address] [place] [address] PRE CLINIC Active [address] CARDIAC CLEARANCE/ Active [facility] KIDNEY TX/ [address] [place] [address] ADROGUR Center 414.00 - COR ATH Active [place] UNSP VS [address] [place] [address], OPID Sp OPID [place] V72.83 Active [facility] 013 [place] RENAL/DONOT USE Active [facility] FOR CHARGES F/C 013 Medical NOTES ON Center PRE TRANSPLANT Active [facility] EVAL 013 Medical Center Anemia of chronic Active Problem 02/24/2016 Data [facility] renal 013 migrated Medical failure<sup>1</sup from [facility], > Centricity OPID on 08/13/14. [facility] renal Active Problem 02/24/2016 Data [facility] failure 013 migrated Medical syndrome<sup>2</rocha from [facility], p> Centricity OPID on 08/13/14. [facility] RENAL FAILURE, Active Condition 09/07/2014 Medical CHRONIC 013 Group ANEMIA IN CHRONIC Active Condition 09/07/2014 [facility] KIDNEY DISEASE 013 Group Cough<sup>3</sup> Active Problem 02/24/2016 Data [facility] 013 migrated Medical from [facility], Centricity OPID on 08/13/14. [facility] Diabetic renal Active Problem 02/24/2016 Data [facility] disease<sup>4</sup 013 migrated Medical > from [facility], Centricity OPID on 08/13/14. [facility] Type 2 diabetes Active Problem 02/24/2016 Data [facility] mellitus<sup>11</s 013 migrated Medical up> from [facility], Centricity OPID on 08/13/14. [place] Type 2 diabetes Active Problem 08/22/2014 8Data The mellitus<sup>8</rocha 013 migrated [place] p> from [facility] on 08/13/14. DIAB W/O COMP TYPE Active Condition 09/07/2014 Medical II/UNS NOT STATED 013 Group UNCNTRL DIAB W/RENAL Active Condition 09/07/2014 Medical MANIFESTS TYPE 013 Group II/UNS NOT UNCNTRL COUGH Active Condition 09/07/2014 Medical 013 Group Diabetic Active Problem 02/24/2016 Data [facility] retinopathy<sup>5< 012 migrated Medical /sup> from [facility], Centricity OPID on 08/13/14. [place], [place] Hypertensive Active Problem 02/24/2016 Data [facility] disorder<sup>7</rocha 012 migrated Medical p> from [facility], Centricity OPID on 08/13/14. [place] Hypertensive Active Problem 08/22/2014 6Data The disorder<sup>6</rocha 012 migrated [place] p> from Centricity on 08/13/14. DIABETIC Active Condition 09/07/2014 Medical RETINOPATHY 012 Group HYPERTENSION Active Condition 09/07/2014 Medical 012 Group [id number], 585.9, Active [address] 012 [place] Diabetes mellitus Resolved Problem 10/31/2012 [facility], OPID [place],M [facility] [place],[facility] [place] HTN - Hypertension Resolved Problem 10/31/2012 [facility], OPID [place], H [place],[facility] [place] Renal failure Resolved Problem 10/31/2012 [facility], OPID [place], H [place],[facility] [place] Diabetes mellitus Active Problem 07/12/2013 [facility], [place] Dialysis regime Active Problem 09/02/2013 [place], [place] Diverticulitis Active Problem 08/22/2014 [facility] ESRD - End stage Active Problem 09/02/2013 Greater renal disease [place], [place] Gastroparesis Active Problem 08/22/2014 [place], [place] GERD - Active Problem 08/22/2014 [facility] Gastro-esophageal [place], reflux disease [place] HTN - Hypertension Active Problem 07/12/2013 [facility] [place], [place] Renal failure Active Problem 09/02/2013 Greater syndrome [facility], [place] Bladder wall Active Problem 03/31/2015 The thickening [place],[facility] Diabetes mellitus Active Problem 02/24/2016 The type II [place], [facility] Diverticulitis Active Problem 02/24/2016 [place] [facility] Gastroparesis Active Problem 02/24/2016 [place],[facility] GERD - Active Problem 02/24/2016 [facility] Gastro-esophageal [facility] reflux disease [facility] Hypertensive Active Problem 02/24/[address] [facility] Kidney transplant Active Problem 02/24/[address] [facility] End stage renal Active Problem 02/24/2016 [facility], DIPAK [place], [place] Final: 05/29/2013 [facility] GASTROPARESIS [facility] Final: Diabetes 05/29/2013 [facility] mellitus without Medical mention of Center complication, type II or unspecified type, not stated as uncontrolled Final: 05/29/2013 [facility] Chronic Kidney Center Disease, Unspecified, with Chronic Kidney Disease Stage V or End Stage Renal Disease Final: End Stage 05/29/2013 [facility] Renal Disease [facility] Center Final: Renal 05/29/2013 [facility] Dialysis Status [facility] Center Final: 05/29/2013 [facility] Tachycardia, Medical Unspecified Center Diabetes mellitus Active Problem 05/29/2013 [facility] Dialysis regime Active Problem 05/29/2013 [facility] ESRD - End stage Active Problem 05/29/2013 [facility] renal disease [facility] HTN - Hypertension Active Problem 05/29/2013 [facility] Renal failure Active Problem 05/29/2013 [facility] Obesity Active Problem 02/24/2016 [facility] OPID [place] Bladder wall Active Problem 11/11/2014 The thickening [place],[facility] OPID [place] Diabetes mellitus Active Problem 05/07/2015 [facility] type [facility] [place] Diverticulitis Active Problem 05/07/2015 [facility] OPID [place] Gastroparesis Active Problem 05/07/2015 [facility] OPID [place] GERD - Active Problem 05/07/2015 [facility] Gastro-esophageal [facility] reflux disease OP[place] Hypertensive Active Problem 05/07/2015 [facility]ros[facility] [place] Kidney transplant Active Problem 05/07/2015 [facility] [place] Bladder wall Active Problem 02/24/2016 [facility], OPID [place] CHRONIC KIDNEY DIS Active [facility] [place] PRE-PROCEDURE LAB Active [facility] ABDMNAL PAIN Active The EPIGASTRIC [place] END STAGE RENAL Active [facility] POSS TB Active [facility] MEDICAL SERVICES Active [facility] NOT AVAILABLE IN Medical HOME Center CHRONIC KIDNEY Active [facility] DISEASE, STAGE 5 Medical [place] END STAGE RENAL Active [facility] ENCNTR FOR GENERAL Active [facility] ADULT MEDICAL EXAM Medical W/ Center ENCOUNTER FOR Active [facility] PREPROCEDURAL Medical LABORATORY E Center Medications Medication Details Route Status Patient Ordering Order Source Instructions Provider Date rifaximin 550 MG 550 mg=1 tab, Active [place] Oral Tablet PO, TID, # 42 2014 Medical [XIFAXAN] tab, 0 Center Refill(s), Pharmacy: [facility] oral 240 mL, PO, Active [facility] powder for Q15Min, jug for 2015 Medical reconstitution colonoscopy, # Center 1 ea, 0 Refill(s), Pharmacy: [facility] Ondansetron 4 MG 4 mg=1 tab, PO, Active [facility] Oral Tablet Q12H, X 30 day, 2014 Medical [Zofran] # 60 tab, 1 Center Refill(s), Pharmacy: [facility] omeprazole 20 mg 20 mg=1 cap, Active [facility] oral delayed PO, BID, # 60 2014 Medical release capsule cap, 1 Center Refill(s), Pharmacy: [facility] CALCIUM ACETATE one cap tid Active Medical 667 MG CAPS with meals 2015 Group Ondansetron 4 MG 4 mg=1 tab, PO, Active The Disintegrating BID, PRN Nausea 2014 [place] Tablet [Zofran] and Vomiting, Dissolve tab under tongue, X 5 day, # 10 tab, 0 Refill(s), Pharmacy: [facility] Instructions: Dissolve tab under tongue calcium acetate 2,001 mg=3 cap, Active The 667 MG Oral PO, TID, 0 2014 [place] Capsule [Phoslo] Refill(s) BD INSULIN use as directed Active 05/19[facility] Medical SYRINGE 2013 Group HALF-UNIT 31G X 5/16" 0.3 ML MISC BD PEN NEEDLE use as directed Active 05/18[facility] Medical SHORT U/F 31G X 2013 Group 8 MM MISC APIDRA 100 inject 10units No Longer 05/18[facility] Medical UNIT/ML SOLN in the am, Active 2013 Group 15units at lunch,and 10 units in the evening BD PEN NEEDLE use as directed Active Medical SHORT U/F 31G X 2013 Group 8 MM MISC heparin 1,000 unit, 1 Inactive Greater mL, Route: IV, 2013 Drug form: INJ, During Dialysis, PRN Dialysis, Start date: 05/14/13 14:41:00, Duration: 30 day, Stop date: 06/13/13 15:40:00 albumin human 25 gm, 100 mL, Inactive Route: IV, Drug 2013 form: INJ, During [...] PRN Dialysis Phenergan 12.5 mg, Route: Inactive IM, ONCE, 2013 Dosing Weight 88.636, kg, [...] mg, 1 supp, No Longer [place] Route: [place], Drug Active 2013 form: SUPP, Q6H, Dosing [...] Longer Greater Route: PO, Drug Active 2013 [facility] form: TAB, QID-Before Meals, Dosing Weight 88.636, kg, PRN as needed for nausea/vomiting , Start date: 05/13/13 10:07:00, Duration: 30 day, Stop date: 06/12/13 10:06:00(Same as: Reglan) Take 30 min before meals Acetaminophen 2 tab, Route: No Longer Greater 325 MG / PO, Drug Form: Active 2013 [facility] Hydrocodone TAB, Dosing Bitartrate 5 MG Weight 88.636, Oral Tablet kg, Q4H, PRN as [Rewey 5/325] needed for pain, Start date: 05/13/13 10:06:00, Duration: 30 day, Stop date: 06/12/13 10:05:00(Same as: Rewey 325/5) Do not exceed 4gm/day of acetaminophen. NovoLog sliding scale, Active Greater 0 Refill(s) 2013 Glucagon 1 mg, Route: No Longer Greater IM, Drug form: Active 2013 PDR/INJ, PRN, Dosing Weight 88.636, kg, PRN Blood Glucose Results, Start date: 05/13/13 9:12:00, Duration: 30 day, Stop date: 06/12/13 10:11:00 Dextrose 50% 25 gm, 50 mL, No Longer Greater Syringe Route: IVP, Active 2013 Drug Form: INJ, Dosing Weight 88.636, kg, PRN, PRN Blood Glucose Results, Start date: 05/13/13 9:12:00, Duration: 30 day, Stop date: 06/12/13 10:11:00 Protonix 40 mg, Route: No Longer Greater IVP, Drug form: Active 2013 INJ, BID-Before Meals, Dosing Weight 79.545, kg, [...] Route: IVP, Active 2013 Drug form: INJ, Q6H, Dosing Weight 79.545, kg, PRN as needed for nausea/vomiting , Priority: STAT, Start date: 05/12/13 22:58:00, Duration: 30 day, Stop date: 06/11/13 22:57:00(Same as: Reglan) Morphine 4 mg, 1 mL, No Longer Greater Route: IVP, Active 2013 Drug form: INJ, Q3H, Dosing Weight [...] Greater 0.9% IVP, Drug Form: Active 2013 [facility] INJ, Dosing Weight 79.545, kg, PRN, PRN Line Flush, Start date: 05/12/13 18:20:00, Duration: 24 hr, Stop date: 05/13/13 18:19:00(Same as: BD Posiflush) Morphine 4 mg, 1 mL, Inactive Route: IVP, 2013 Drug form: INJ, ONCE, Dosing Weight 79.545, kg, Priority: STAT, Start date: 05/12/13 18:20:00, Stop date: 05/12/13 18:20:00(Same as:MORPhine Sulfate) Ondansetron 4 mg, 2 mL, Inactive [facility] Route: IVP, [...] 19:19:00, Bolus DoseBolus Dose Promethazine =1 supp, [place], On Hold [place] Hydrochloride 25 Q6H, Nausea & 2013 MG Rectal Vomiting, # 15 Suppository supp, 0 [Phenergan] Refill(s) Acetaminophen 2 tab, PO, Q4H, On Hold Greater 325 MG / for pain, # 30 2013 Hydrocodone tab, 0 Bitartrate 5 MG Refill(s) Oral Tablet [Rewey 5/325] Omnipaque 300 100 mL, 200 Inactive Greater ml/hr, Route: 2013 IV, Drug Form: SOLMya ONCALL, Start date: 05/11/13 17:00:00, Duration: 30 day, [...] 16:43:00 Hydralazine 20 mg, 1 mL, Inactive [facility] Route: IVP2013 [facility] Drug form: INJ, ONCE, Dosing Weight 8.636, kg, Priority: STAT, Start date: 05/11/13 15:27:00, Stop date: 05/11/13 15:27:00(Same as: Apresoline) Push over 5 minutes Zofran 4 mg, 2 mL, Inactive [facility] Route: IV, Drug 2013 [facility] form: INJ, ONCE, Dosing Weight 8.636, kg, PRN Nausea, Start date: 05/11/13 15:26:00(Same as: Zofran) Morphine 4 mg, 1 mL, Inactive [facility] Route: IVP2013 [facility] Drug form: INJ, ONCE, Dosing Weight 8.636, kg, Priority: STAT, Start date: 05/11/13 15:26:00, Stop date: 05/11/13 15:26:00(Same as:MORPhine Sulfate) Metoclopramide 10 mg=1 tab, Active [place] 10 MG Oral PO, QID, # 28 2013 Medical Tablet [Reglan] tab, 0 Center Refill(s) Morphine 4 mg, 1 mL, Inactive [facility] Route: IV, Drug 2013 Medical form: INJ, Center ONCE, Dosing Weight 88.636, kg, Priority: STAT, Start date: 05/08/13 17:10:00, Stop date: 05/08/13 17:10:00(Same as:MORPhine Sulfate) Reglan 10 mg, 2 mL, Inactive [facility] Route: IVP2013 Medical Drug form: INJ, Center ONCE, Dosing Weight 88.636, kg, Priority: STAT, Start date: 05/08/13 17:09:00, Stop date: 05/08/13 17:09:00(Same as: Reglan) Promethazine 25 mg=1 tab, Active [place] Hydrochloride 25 PO, Q4H, 2014 Medical MG Oral Tablet Nausea, # 20 Center [Phenergan] tab, 0 Refill(s) Ondansetron 4 MG 4 mg=1 tab, PO, Active [place] Disintegrating BID, Nausea and 2013 Medical Tablet [Zofran] Vomiting, Center Dissolve tab under tongue, # 20 tab, 0 Refill(s)Dissol ve tab under tongue Famotidine 40 MG 20 mg, 1 tab, Inactive [facility] Oral Tablet Route: PO, Drug 2013 Medical [Pepcid] form: TAB, Center ONCE, Dosing Weight 88.636, kg, Start date: 05/08/13 15:12:00, Stop date: 05/08/13 15:12:00(Same as: Pepcid) GI cocktail 30 mL, Route: Inactive [facility] PO, Drug Form: 2013 Medical SUSP, Dosing Center Weight 88.636, kg, ONCE, STAT, Start date: 05/08/13 15:12:00, Stop date: 05/08/13 15:12:00G.I. Cocktail=antaci d with simethicone 22.5 mL - lidocaine viscous 7.5 mL Morphine 4 mg, 1 mL, Inactive [facility] Route: IVP2013 Medical Drug form: INJ, Center ONCE, Dosing Weight 88.636, kg, Priority: STAT, Start date: 05/08/13 15:07:00, Stop date: 05/08/13 15:07:00(Same as:MORPhine Sulfate) Zofran ODT 4 mg, 1 tab, Inactive [facility] Route: PO, Drug 2013 Medical form: TABDIS, Center ONCE, Dosing Weight 88.636, kg, Priority: STAT, Start date: 05/08/13 15:06:00, Stop date: 05/08/13 15:06:00(Same as: Zofran ODT) Reglan 10 mg, 2 mL, Inactive [facility] Route: IVP2013 Medical Drug form: INJ, Center ONCE, Dosing Weight 88.636, kg, Priority: STAT, Start date: 05/08/13 13:59:00, Stop date: 05/08/13 13:59:00(Same as: Reglan) Morphine 4 mg, 1 mL, Inactive [facility] Route: IVP2013 Medical Drug form: INJ, Center ONCE, Dosing Weight 88.636, kg, Priority: STAT, Start date: 05/08/13 13:23:00, Stop date: 05/08/13 13:23:00(Same as:MORPhine Sulfate) NS (Bolus) IV 500 mL, Rate: Inactive [facility] 500 mL 500 ml/hr, 2013 Medical Infuse over: 1 Center hr, Route: IV, Dosing Weight 88.636 kg, Total Volume: 500, Priority: STAT, Start date: 05/08/13 13:19:00, Duration: 1 doses or times, Stop date: 05/08/13 14:18:00, Bolus DoseBolus Dose Phenergan 25 mg, Route: Inactive [facility] IVPB, ONCE, 2013 Medical Dosing Weight Center 88.636, kg, Priority: STAT, Start date: 05/08/13 13:19:00, Stop date: 05/08/13 13:19:00 Ondansetron 4 mg, Route: Inactive [facility] IVP, Drug form: 2013 Medical INJ, ONCE, Center Dosing Weight 88.636, kg, Priority: STAT, Start date: 05/08/13 13:15:00, Stop date: 05/08/13 13:15:00 NOVOLOG 100 inject Active Medical UNIT/ML SOLN 10-15units tid 2012 Group with meals sc NOVOLOG 100 inject Active Medical UNIT/ML SOLN 10-15units tid 2012 Group with meals sc hydrALAZINE 10 mg, Route: IV No Longer [place]sey 09/03/ Bobby IV, ONCE, Active 2012 Medical Dosing Weight Center 90.909, kg, Start date: 09/02/12 19:11:00, Stop date: 09/02/12 19:11:00 Saline Flush 5 ml, Route: IVP No Longer [place] 09/02/ [place] 0.9% IVP, Drug Form: Active 2012 [...] mg 25 mg, 1 tab, PO Active [facility] The oral tablet PO, Q4H, PRN, 2012 [place] 15 tab, Nausea, Substitution Allowed Apidra Substitution Active The Allowed 2012 [place] Lantus Substitution Active The Allowed 2012 [place] Sodium Chloride 1,000 mL, Rate: IV No Longer Rinkle The 0.9% (Bolus) IV 1,000 ml/hr, Active 2012 [place] 1,000 mL Infuse over: 1 hr, Route: IV, kg, Total Volume: 1,000, Priority: STAT, Start date: 06/23/12 7:08:00, Duration: 1 doses or times, Stop date: 06/23/12 8:07:00 Saline Flush 5 mL, Route: IVP No Longer Rinkle The 0.9% IVP, Drug Form: Active 2012 [place] INJ, Dosing Weight 90.909, kg, PRN, PRN Line Flush, Start date: 06/23/12 7:08:00, Duration: 24 hr, Stop date: 06/24/12 7:07:00 promethazine 12.5 mg, 50 mL, IVPB No Longer Rinkle The Route: IVPB, Active 2012 [place] Drug form: SOLN, ONCE, Dosing Weight 90.909, kg, Priority: STAT, Start date: 06/23/12 7:08:00, Stop date: 06/23/12 7:08:00 ondansetron 4 mg, 2 mL, IVP No Longer [place]inkle The Route: IVP, Active 2012 [place] Drug form: INJ, ONCE, Dosing Weight 90.909, kg, Priority: STAT, Start date: 06/23/12 7:08:00, Stop date: 06/23/12 7:08:00 ZITHROMAX Z-COLLEEN Take 2 tab po No Longer Medical 250 MG TABS qd for first Active 2012 day then 1 tab po qd thereafter clonidine 100 microgram, IVP No Longer [place] 1 mL, Route: Active 2011 [facility] IVP, Drug form: INJ, ONCE, Start date: 03/03/12 9:30:00, Stop date: 03/03/12 9:30:00 Sodium Chloride 250 mL, Rate: IV No Longer [place] 0.9% IV 250 mL 100 ml/hr, Active 2011 [place] Infuse over: 2.5 hr, Route: IV, kg, Total Volume: 250, Start date: 03/03/12 7:50:00, Duration: 30 day, Stop date: 04/02/12 7:49:00 lidocaine 0.1 mL, Route: IV No Longer Friend IV, Drug form: Active 2011 [place] INJ, ONCALL, Start date: 03/03/12 5:00:00, Duration: 1 doses or times Lactated Ringers 1,000 mL, Rate: IV No Longer Friend Injection IV 100 ml/hr, Active 2011 [facility] 1,000 mL Infuse over: 10 hr, Route: IV, kg, Total Volume: 1,000, Start date: 03/03/12 5:00:00, Duration: 1 doses or times, Stop date: 03/03/12 14:59:00 cefazolin + 1 gm, Route: IVPB No Longer [place] Sodium Chloride IVPB, PRE OP, Active 2011 [facility] 0.9% IV 100 mL Start date: 03/03/12 5:00:00, Duration: 1 doses or times REGLAN 10 MG 1 po qd prn No Longer 12/12/ Medical TABS Active 2011 Group ACCU-CHEK FERNANDA Test 3 times a Active 12/09/ Medical STRP . 2011 Group LANTUS SOLOSTAR 18 units at Active 12/05/ [...] LISINOPRIL 30 MG 1 po qd Active 12/05[facility] Medical TABS 2011 Group Allergies, Adverse Reactions, Alerts Substance Category Reaction Severity Reaction Status Date Comments Source type Reported Immunizations Immunization Date Site Status Last Updated Comments Source Given Hx pneumococcal completed [facility] vaccine [address] [place] [address] Hx pneumococcal completed [facility] vaccine [address] [place] [address],[facility] Hx pneumococcal completed [facility] vaccine [address] [place] [address] OPID [place] Hx influenza completed [facility] vaccine-unspecifi [address] [place] [address] Hx influenza completed [facility] vaccine-unspecifi [address] [place] [address] ed [facility] Hx influenza completed [facility] vaccine-unspecifi [address] [place] [address] ed OPID [place] Results Order Name Results Value Reference Date Interpretation Comments Source Range Abdomen/Pe Abdomen/Pelv EXAM: CT ABDOMEN AND PELVIS WITHOUT CONTRAST - [facility] wo IV is wo IV /2015 - Medical contrast contrast CT This report was dictated by a Optimization Analyst /Fellow. I have personally reviewed the images as Center CT well as the Resident's interpretation and agree with the findings. DATE: 02/01/2016 12:45 PM RADIOLOGY ADMINISTRATOR Read by: Chance Maki MD Resident: Chance [...] EXAM: XR PA AND LATERAL CHEST 01/22 [facility] views DX views DX /2016 [facility] DATE: 01/22/2017 Read by: Amberly Brooks MD [...] EXAM: XR ABDOMEN 3 FRONTAL VIEWS 05/04 [facility] OPID DX DX /2015 - [place] DATE: 05/04/2015 7:55 AM RADIOLOGY ADMINISTRATOR Read by: Houston Bonner MD Dictated Date/time: [...] Emptying Study. 12/22 - [place] emptying emptying [place] /2014 - [facility] This report was dictated by a Optimization Analyst/Fellow. I have personally reviewed the images as [...] EXAM: FLUOROSCOPY UPPER GI SINGLE CONTRAST 11/08 [facility] OPID series DX series - [place] INDICATION: See Clinic Indication . Read by: [...] Retroperit Retroperiton EXAM: US RENAL 09/27 - [facility] Complete /2014 - Medical Complete US This report was dictated by a Optimization Analyst/Fellow. I have personally reviewed the images as [...] LAB /2014 Medical RESULTS Center REFERENCE HLA Misc See Report 1 09/20 Result [facility] LAB Test /2014 Comment: Medical RESULTS (09/20/14 4:37 PM) Reference lab Center results scanned in Care[employer]. Results displayed in [id number]-Outside Lab Documents (Imaged) under date/time results were scanned. Report sent for scanning on 10/12/2014. Chest 2 Chest 2 Chest pa and lateral September 20, 201409/20 - [facility] views DX views DX /2014 - [facility] Center HISTORY: Renal transplant workup. Comparison is [...] I at or above The ENZYMES 0.40 /2014 0.4 ng/ml is associated with a high probability of clinical [facility] significance. CHEM PANEL Lipase Lvl 125 unit/L 73 - 393 08/19 [facility] CHEM PANEL B/C Ratio 4 6 - 25 08/19 [facility] CHEM PANEL AGAP 12.5 meq/L 10.0 - 06/ The 20.0 [facility] [place] CHEM PANEL A/G Ratio 0.7 0.7 - 1.6 08/19 [facility] CHEM PANEL Globulin 4.6 g/dL 2.0 - 4.0 08/19 [facility] CHEM PANEL eGFR 14 08/19 1Result Comment: [...] is not recommended in the following populations: [place] 3m2 Individuals with unstable creatinine concentrations, including [...] PANEL Potassium 3.5 meq/L 3.5 - 5.1 / The Lvl [facility] CHEM PANEL Chloride Lvl 100 meq/L 95 - 109 06/05 The [place] CHEM PANEL CO2 30 meq/L 24 - 32 06/ The [place] CHEM PANEL Albumin Lvl 3.1 g/dL 3.5 - 5.0 / The [place] CHEM PANEL Calcium Lvl 8.0 mg/dL 8.5 - 10.5 / The [place] CHEM PANEL Creatinine 4.9 mg/dL 0.5 - 1.4 08/19 The Lvl [place] CHEM PANEL Sodium Lvl 139 meq/L 135 - 145 / The [place] CHEM PANEL BUN 21 mg/dL 7 - 22 / The [place] CHEM PANEL Glucose Lvl 80 mg/dL 70 - 99 06/ 2Interpretive Data: Adult reference range values reflect the clinical guidelines MH of the [place] [employer]. [place] CHEM PANEL ALT 13 unit/L 0 - 65 / The [place] CHEM PANEL Total 7.7 g/dL 6.4 - 8.4 08/19 The Protein [place] CHEM PANEL Bili Total 0.5 mg/dL 0.2 - 1.3 /05 The [place] CHEM PANEL AST 8 unit/L 0 - 37 06/05 The [place] CHEM PANEL Alk Phos 58 unit/L 39 - 136 06/05 The [facility] HEMATOLOGY Monocytes # 1.1 K/CMM 0.0 - 0.8 06/05 The [place] HEMATOLOGY Eosinophils 0.1 K/CMM 0.0 - 0.5 06/05 The # [place] HEMATOLOGY Monocytes 13.6 % 2.0 - 12.0 06/05 The [place] HEMATOLOGY Segs 74.1 % 45.0 - 08/19 The 75.0 /2014 [place] HEMATOLOGY Lymphocytes 11.5 % 20.0 - 08/19 The 40.0 /2014 [place] HEMATOLOGY Lymphocytes 1.0 K/CMM 1.0 - 5.5 06/ The # /2014 [place] [facility] HEMATOLOGY Basophils 0.2 % 0.0 - 1.0 06/ The [place] HEMATOLOGY Segs-Bands # 6.2 K/CMM 1.5 - 8.1 08/19 The [place] HEMATOLOGY Eosinophils 0.6 % 0.0 - 4.0 06/ The [place] HEMATOLOGY Hgb 11.4 g/dL 14.0 - 08/19 The 18.0 [place] HEMATOLOGY Hct 34.0 % 42.0 - 08/19 The 54.0 [place] HEMATOLOGY WBC 8.4 K/CMM 3.7 - 10.4 08/19 The [place] HEMATOLOGY RBC 3.62 M/CMM 4.70 - 08/19 The 6.10 [place] HEMATOLOGY Platelet 179 K/CMM 133 - 450 08/19 The [place] HEMATOLOGY MCV 94.0 fL 80.0 - 08/19 The 94.0 [place] HEMATOLOGY MCH 31.4 pg 27.0 - 08/19 The 31.0 [place] HEMATOLOGY MCHC 33.4 g/dL 32.0 - 08/19 The 36.0 [place] HEMATOLOGY MPV 7.4 fL 7.4 - 10.4 08/19 The [place] HEMATOLOGY RDW 13.9 % 11.5 - 08/19 The 14.5 [place] URINE AND UA Protein >=300 Negative 08/19 The STOOL mg/dL mg/dL /2014 [place] URINE AND UA Amorph Few /HPF None Seen 08/19 The STOOL Gianna /HPF /2014 [place] URINE AND UA Mucus Few /LPF None Seen 08/19 The STOOL /LPF /2014 [place] URINE AND UA Bacteria None Seen None Seen 08/19 The STOOL /2014 [place] (08/19/14 4:19 PM) URINE AND UA RBC None Seen 0 - 2 08/19 The STOOL /2014 [place] [facility] (08/19/14 4:19 PM) URINE AND UA WBC None Seen None Seen 08/19 The STOOL [place] (08/19/14 4:19 PM) URINE AND UA Sq Epi None Seen Few 08/19 The [place] (08/19/14 4:19 PM) URINE AND Micro? Yes 08/19 The STOOL [place] (08/19/14 4:19 PM) URINE AND UA Leuk Est Negative Negative 08/19 The STOOL [place] (08/19/14 4:19 PM) URINE AND UA Nitrite Negative Negative 08/19 The STOOL [place] (08/19/14 4:19 PM) URINE AND UA 0.2 EU/dL 0.1 - 1.0 08/19 The [facility] Urobilinogen [place] URINE AND UA Blood Moderate Negative 08/19 The [facility] *ABN* (08/19/14 4:19 PM) URINE AND UA Bili Small Negative 08/19 The [place] *ABN* (08/19/14 4:19 PM) URINE AND UA Ketones Negative Negative 08/19 The [place] *NA* (08/19/14 4:19 PM) URINE AND UA Glucose 250 mg/dL Negative 08/19 The [facility] mg/dL [place] URINE AND UA pH 6.0 5.0 - 8.0 08/19 The [place] URINE AND UA Spec Grav >=1.030 <=1.030 08/19 The [place] [facility] *ABN* (08/19/14 4:19 PM) URINE AND UA Turbidity Clear Clear 08/19 The [place] (08/19/14 4:19 PM) URINE AND UA Color STRAW 08/19 The [place] [facility] Chest 2 Chest 2 NAME: MARTY BASS 08/19 [facility] The views DX views DX [facility] : 1975 SEX: M Ordering Physician: Taras [...] 2 Chest 2 Name: MARTY BASS 09/10 [facility] The views views /2013 [facility] : 1975 Read by: Jostin Lew MD [...] SL:[id number] Abdomen Abdomen NAME: MARTY BASS 08/24 [facility] The complete complete US /2013 [facility] US : 1975 SEX: M Ordering Physician: [...] 172 mg/dL 212 - 360 08/02 The [facility] ANEMIA Iron 109 ug/dl 45 - 160 08/02 The [place] CHEM PANEL eGFR 8 08/02 1Result Comment: [...] is not recommended in the following populations: [place] 3m2 Individuals with unstable creatinine concentrations, including [...] Lvl 3.6 g/dL 3.5 - 5.0 08/02 [facility] CHEM PANEL ALT 30 unit/L 0 - 65 08/02 [facility] CHEM PANEL AST 21 unit/L 0 - 37 08/02 The [place] CHEM PANEL Alk Phos 60 unit/L 39 - 136 08/02 The [place] CHEM PANEL Bili Total 0.4 mg/dL 0.2 - 1.3 08/02 [facility] CHEM PANEL Total 7.5 g/dL 6.4 - 8.4 08/02 The Protein [place] CHEM PANEL Calcium Lvl 8.6 mg/dL 8.5 - 10.5 08/02 [facility] CHEM PANEL Potassium 4.8 meq/L 3.5 - 5.1 08/02 The Lvl [place] CHEM PANEL Chloride Lvl 107 meq/L 95 - 109 08/02 [facility] CHEM PANEL CO2 24 meq/L 24 - 32 08/02 [facility] CHEM PANEL Sodium Lvl 140 meq/L 135 - 145 08/02 The [place] CHEM PANEL Creatinine 7.7 mg/dL 0.5 - 1.4 08/02 The Lvl [place] CHEM PANEL Glucose Lvl 67 mg/dL 70 - 99 08/02 2Interpretive Data: Adult reference range values reflect the clinical guidelines of the [place] [employer]. [place] CHEM PANEL BUN 77 mg/dL 7 - 22 08/02 [facility] CHEM PANEL AGAP 13.8 meq/L 10.0 - 08/02 The 20.0 [place] CHEM PANEL B/C Ratio 10 6 - 25 08/02 [facility] CHEM PANEL A/G Ratio 0.9 0.7 - 1.6 08/02 [facility] CHEM PANEL Globulin 3.9 g/dL 2.0 - 4.0 08/02 The [place] CHEM PANEL Phosphorus 5.7 mg/dL 2.5 - 4.5 08/02 The [place] CHEM PANEL LDH 180 unit/L 98 - 192 08/02 The [place] CHEM PANEL HSV 1 IgM NEGATIVE 08/02 The [place] CHEM PANEL HSV 2 IgM NEGATIVE 08/02 3Result Comment: REFERENCE RANGE: NEGATIVE [place] The IFA procedure for measuring IgM antibodies to HSV 1 and HSV 2 detects both type-common and type- specific HSV antibodies. Thus, IgM reactivity to both HSV 1 and HSV 2 may represent crossreactive HSV antibodies rather than exposure to both HSV 1 and HSV 2. This test was developed and its performance characteristics have been determined by [facility]. Performance characteristics refer to the analytical performance of the test. Test Performed at: [facility] [employer] [address] [place] [address] Elana Neumann MD CHEM PANEL Uric Acid 7.0 mg/dL 3.8 - 8.0 08/02 [facility] DRUG Cutoff See Note 5, 6 08/02 6Interpretive Data: Cutoff (lowest detectable by EIA) values for Serum Drugscreen: The THC and PCP: 1 ng/mL [place] [facility] (08/02/13 10:30 AM) All others: 20 ng/mL Cutoff (lowest detectable by GC/MS) value for confirmation: THC and PCP: 1 ng/mL Benzodiazepines: 5 ng/ml All others: 10 ng/ml Test performed by [facility] [address] [place] [address] DRUG Propoxyphn Negative Negative 08/02 MH The SCREEN Scr [place] (08/02/13 10:30 AM) DRUG PCP Scr Negative Negative 08/02 MH The [place] [facility] (08/02/13 10:30 AM) DRUG Methadone Negative Negative 08/02 MH The SCREEN Scr [place] (08/02/13 10:30 AM) DRUG Cocaine Scr Negative Negative 08/02 MH The [place] [facility] (08/02/13 10:30 AM) DRUG Cannab Scr Negative Negative 08/02 MH The [place] (08/02/13 10:30 AM) DRUG Benzodiaz Negative Negative 08/02 MH The SCREEN Scr [place] (08/02/13 10:30 AM) DRUG Martine Scr Negative Negative 08/02 MH The [place] (08/02/13 10:30 AM) DRUG Amph Scr Negative Negative 08/02 MH The [place] (08/02/13 10:30 AM) DRUG Opiate Scr Negative Negative 08/02 MH The [place] [facility] (08/02/13 10:30 AM) HEMATOLOGY MPV 8.1 fL 7.4 - 10.4 08/02 [facility] HEMATOLOGY Platelet 186 K/CMM 133 - 450 08/02 [facility] HEMATOLOGY MCV 92.9 fL 80.0 - 08/02 The 94. [place] HEMATOLOGY MCHC 34.2 g/dL 32.0 - 08/02 The 36.0 [place] HEMATOLOGY MCH 31.8 pg 27.0 - 08/02 The 31. [place] HEMATOLOGY RDW 14.2 % 11.5 - 08/02 The 14. [place] HEMATOLOGY RBC 3.45 M/CMM 4.70 - 08/02 The 6. [place] HEMATOLOGY Hct 32.1 % 42.0 - 08/02 The 54.0 [place] HEMATOLOGY Hgb 11.0 g/dL 14.0 - 08/02 The 18. [place] HEMATOLOGY WBC 9.3 K/CMM 3.7 - 10.4 08/02 The [place] HEMATOLOGY PTT 28.9 s 22.9 - 08/02 20Interpretiv The 35.8 e Data: [place] [facility] Heparin Therapeutic Range: 57 - 92 Seconds HEMATOLOGY INR 0.87 0.85 - 08/02 18Interpretive Data: RECOMMENDED RANGES FOR PROTIME INR: [facility] 04.02 2.0-3.0 for most medical and surgical thromboembolic states. [place] 2.5-3.5 for artificial heart valves and recurrent embolism. INR SHOULD BE USED ONLY FOR PATIENTS ON STABLE ANTICOAGULANT THERAPY. HEMATOLOGY PT 11.8 s 12.0 - 08/02 The 14.7 [place] HEMATOLOGY Basophils # 0.0 K/CMM 0.0 - 0.2 08/02 [place] [facility] HEMATOLOGY Monocytes # 0.6 K/CMM 0.0 - 0.8 08/02 The [place] HEMATOLOGY Eosinophils 0.2 K/CMM 0.0 - 0.5 08/02 The [place] HEMATOLOGY Lymphocytes 2.3 K/CMM 1.0 - 5.5 08/02 The [place] HEMATOLOGY Basophils 0.3 % 0.0 - 1.0 08/02 The [place] HEMATOLOGY Segs-Bands # 6.2 K/CMM 1.5 - 8.1 08/02 The [place] HEMATOLOGY Lymphocytes 24.2 % 20.0 - 08/02 The 40.0 [place] HEMATOLOGY Monocytes 6.9 % 2.0 - 12.0 08/02 [facility] HEMATOLOGY Eosinophils 1.9 % 0.0 - 4.0 08/02 The [place] HEMATOLOGY Segs 66.7 % 45.0 - 08/02 The 75.0 [place] IMMUNOLOGY HSV 1 IgG null <=0.8 AI 08/02 13Interpretive Data: Antibody Index (AI) Results Interpretation ------- [place] 0.0-0.8 Negative No detectable IgG Antibody. 0.9-1.0 Equivocal Repeat testing suggested in 10-14 days. >=1.10 Positive Indicates presence of detectable IgG Antibody. IMMUNOLOGY HSV 2 IgG 3.8 AI <=0.8 AI 08/02 15Interpretive Data: Antibody Index (AI) Results Interpretation ------- [place] 0.0-0.8 Negative No detectable IgG Antibody. 0.9-1.0 Equivocal Repeat testing suggested in 10-14 days. >=1.10 Positive Indicates presence of detectable IgG Antibody. IMMUNOLOGY Varicella 0.49 08/02 13Result Comment: Reference range: < or =0.90 The IgM [place] Interpretive criteria: 0.00-0.90 Negative 0.91-1.09 Equivocal > [...] two or more weeks. Test Performed at: [facility] [address] [place] [address] Elana Neumann MD IMMUNOLOGY Varicella 2.4 AI <=0.8 AI 08/02 12Interpretive Data: Antibody Index (AI) Results Interpretation The ------- [place] 0.0-0.8 Negative No detectable IgG Antibody. 0.9-1.0 Equivocal Repeat testing suggested in 10-14 days. >=1.10 Positive Indicates presence of detectable IgG Antibody. IMMUNOLOGY Quantiferon NEGATIVE NEGATIVE 08/02 16Result Comment: Negative test result. M. tuberculosis complex The - TB Gold infection unlikely. [facility] IMMUNOLOGY NIL 0.02 08/02 The [iU]/mL [place] IMMUNOLOGY Mitogen - null 08/02 The NIL [place] IMMUNOLOGY TB - NIL 0.00 08/02 17Result Comment: The Nil tube value is used to determine if the patient The [iU]/mL has a preexisting immune response which could cause a [place] [facility] false-positive reading on the test. In order [...] IU/mL. For additional information, please refer to http://education.Dinetouch/faq/QFT (This link is being provided for informational/ educational purposes only.) Test Performed at: [facility] [address] [address] DAGO TORRES M.D. IMMUNOLOGY Hep Bs Ab null <=7.4 08/02 18Interpretive Data: <=7.4 mIU/mL- -------Negative for Anti-HBs. Not immune to HBV infection. The mIU/mL [place] 7.5-12.4 mIU/mL--Borderline for Anti-HBs and immune status should be further assessed by considering other factors such as clinical status follow-up testing, associated risk factors, and the use of additional diagnostic information. >12.4 mIU/mL-------Positive for Anti-HBs. Immune to HBV infection IMMUNOLOGY RPR Non Reactive Non 08/02 The Reactive [place] (08/02/13 10:30 AM) IMMUNOLOGY CMV IgG Reactive Non 08/02 The Reactive [place] *ABN* (08/02/13 10:30 AM) IMMUNOLOGY EBV VCA IgM null <=0.8 AI 08/02 11Interpretive Data: Antibody Index (AI) Results Interpretation ------- [place] 0.0-0.8 Negative No detectable IgM Antibody. 0.9-1.0 Equivocal Repeat testing suggested in 10-14 days. >=1.10 Positive Significant level of detectable IgM Antibody, indicative of current or recent infection. IMMUNOLOGY Hep B Core Negative Negative 08/02 The Ab [place] *NA* (08/02/13 10:30 AM) IMMUNOLOGY HIV 1/2 Ab Negative Negative 08/02 [facility] *NA* (08/02/13 10:30 AM) IMMUNOLOGY Hep Bs Ag Negative Negative 08/02 [facility] *NA* (08/02/13 10:30 AM) IMMUNOLOGY EBV VCA IgG null <=0.8 AI 08/02 10Interpretive Data: Antibody Index (AI) Results Interpretation ------- [place] 0.0-0.8 Negative No detectable IgG Antibody. 0.9-1.0 Equivocal Repeat testing suggested in 10-14 days. >=1.10 Positive Indicates presence of detectable IgG Antibody. IMMUNOLOGY Hep C Ab Negative Negative 08/02 [facility] *NA* (08/02/13 10:30 AM) IMMUNOLOGY CMV IgM 0.3 S/CO 08/02 9Interpretive Data: Reference Ranges : Non-reactive: <0.9 S/CO Ratio [place] Indeterminate: 0.9 - 1.0 S/CO Ratio Reactive: >=1.1 S/CO Ratio LIPIDS LDL 108 mg/dL <=99 mg/dL 08/02 The (Calculated) [place] LIPIDS Chol 178 mg/dL <=199 08/02 The mg/dL [place] LIPIDS Trig 58 mg/dL <=149 08/02 The mg/dL [place] LIPIDS HDL 58 mg/dL >=61 mg/dL 08/02 [facility] LIPIDS VLDL 12 08/02 [facility] LIPIDS CHD Risk 3.07 4.00 - 08/02 The 7. [place] LIPIDS LDL Direct 120 mg/dL <=99 mg/dL 08/02 [facility] MOLECULAR BK Virus PCR Negative Negative 08/02 The DIAGNOSTIC Qnt /2013 [facility] (08/02/13 10:30 AM) MOLECULAR Source BK Plasma 08/02 The DIAGNOSTIC Virus PCR /2013 [place] Qnt MOLECULAR BK Virus PCR null 08/02 21Interpretive Data: Analytic Quantification Range: 100-400,000,000 copies/mL (2.0-8.6 log) The DIAGNOSTIC Qnt (log) [place] BK DNA detected below 100 copies/mL will [...] verified by the Molecular Diagnostic Laboratory within [facility]. The Molecular Diagnostic Laboratory is authorized under the Clinical Laboratory Improve ment Amendments of 1988 (CLIA-88) to perform high complexity testing. PARASITOLO Strongyloide NEGATIVE 08/02 21Result Comment: REFERENCE RANGE: NEGATIVE The GY - s Antibodies [place] SEROLOGY Strongyloides stercoralis is a parasitic nematode found in tropical and subtropical regions. Because of low larval densities in feces, stool examination is a relatively insensitive diagnostic test; antibody detection offers increased sensitivity. Patients with latent infections who are immunosuppressed or receiving immunosuppressive therapy are at risk of life-threatening hyperinfection. Significant crossreactivity may be observed in other helminth infections. Test Performed at: [facility] [employer] [address] [place] [address] Elana Neumann MD PARATHYROI PTH Intact 260.8 11.1 - 08/02 The D PROFILE pg/mL 79.5 [facility] [place] SPECIAL PSA 0.60 ng/mL 0.00 - 08/02 4Interpretive Data: 0-4 ng/ml is clinically accepted reference range from the The CHEMISTRY 4. [place] [employer] in 1997 for Total PSA. [place] A PSA value in the range of 0.1 to 0.6 ng/mL is indeterminate if being used as an indicator of recurrent or residual disease. SPECIAL Hgb A1C 6.6 % <=5.6 % 08/02 The CHEMISTRY /2013 [place] TOXICOLOGY [employer] 367 ATP 08/02 8Interpretive Data: Reference Range: [facility] ng/mL Low Immune Cell Response <=225 ATP Level ng/mL [place] Moderate Immune Cell Response 226-524 ATP Level [...] Administration. [employer] (R) is a trademark of [employer]. Chest 2 Chest 2 Name: MARTY BASS 08/02 [facility] The views views [facility] : 1975 Read by: Bill Bhagat MD [...] 24 [place] Gallbladder NAME: MARTY BASS 07/10 [facility] The r scan scan HIDA w /2013 [facility] HIDA w meds [place] : 1975 SEX: M meds NM Ordering Physician: Robbi Dwyer Read by: Gabriel [...] IMMUNOLOGY Hep B Core Negative Negative 05/14 [facility] *NA* (05/14/2013 14:05:00 [facility]) IMMUNOLOGY Hep Bs Ab null <=7.4 05/14 7Interpretive Data: <=7.4 mIU/mL-- ------Negative for Anti-HBs. Not immune to HBV infection. mIU/mL [facility] 7.5-12.4 mIU/mL--Borderline for Anti-HBs and immune status should be further assessed by considering other factors such as clinical status follow-up testing, associated risk factors, and the use of additional diagnostic information. >12.4 mIU/mL-------Positive for Anti-HBs. Immune to HBV infection IMMUNOLOGY Hep Bs Ag Negative Negative 05/14 [facility] *NA* (05/14/2013 14:05:00 [facility]) CHEM PANEL BUN 39 mg/dL 7 - 05/14 [facility] CHEM PANEL Glucose Lvl 121 mg/dL 70 - 99 05/14 4Interpretive Data: Adult reference range values reflect the clinical guidelines of the [place] [employer]. [facility] CHEM PANEL AGAP 13.9 meq/L 10.0 - 05/14 20.0 [facility] CHEM PANEL Potassium 3.9 meq/L 3.5 - 5.1 05/14 Lvl [facility] CHEM PANEL Chloride Lvl 98 meq/L 95 - 109 05/14 [facility] CHEM PANEL Calcium Lvl 8.3 mg/dL 8.5 - 10.5 05/14 [facility] CHEM PANEL CO2 30 meq/L - 05/14 [facility] CHEM PANEL Sodium Lvl 138 meq/L 135 - 145 05/14 [facility] CHEM PANEL Creatinine 8.9 mg/dL 0.5 - 1.4 05/14 Greater Lvl [facility] CHEM PANEL eGFR 7 05/14 1Result Comment: The eGFR is calculated using the CKD-EPI formula. In most young, healthy individuals the eGFR will be >90 mL/ min/1.73m2. The eGFR declines with age. An eGFR of 60-89 may be normal in Greater mL/min/1. some populations, particularly the elderly, for whom the CKD-EPI formula has not been extensively validated. Use of the eGFR is not recommended in the following populations: [facility] 3m2 Individuals with unstable creatinine concentrations, including [...] of 60-89 may be normal in [facility] mL/min/1. some populations, particularly the elderly, for whom the CKD-EPI formula has not been extensively validated. Use of the eGFR is not recommended in the following populations: [facility] 3m2 Individuals with unstable creatinine concentrations, including [...] estimated BMI. CHEM PANEL CO2 31 meq/L - 05/13 [facility] CHEM PANEL AGAP 9.6 meq/L 10.0 - 05/13 Greater 20.0 [facility] CHEM PANEL Chloride Lvl 99 meq/L 95 - 109 05/13 [facility] CHEM PANEL Calcium Lvl 8.3 mg/dL 8.5 - 10.5 05/13 [facility] CHEM PANEL Glucose Lvl 109 mg/dL 70 - 99 05/13 5Interpretive Data: Adult reference range values reflect the clinical guidelines of the [place] [employer]. [facility] CHEM PANEL BUN 19 mg/dL 7 - 22 05/13 [facility] CHEM PANEL Potassium 3.6 meq/L 3.5 - 5.1 05/13 [facility] CHEM PANEL Sodium Lvl 136 meq/L 135 - 145 05/13 [facility] CHEM PANEL Creatinine 6.0 mg/dL 0.5 - 1.4 05/13 [facility] HEMATOLOGY Basophils 0.5 % 0.0 - 1.0 05/13 [facility] HEMATOLOGY Segs-Bands # 6.8 K/CMM 1.5 - 8.1 05/13 [facility] HEMATOLOGY Eosinophils 1.4 % 0.0 - 4.0 05/13 [facility] HEMATOLOGY Monocytes 6.6 % 2.0 - 12.0 05/13 [facility] HEMATOLOGY Lymphocytes 3.3 K/CMM 1.0 - 5.5 05/13 [facility] HEMATOLOGY Monocytes # 0.7 K/CMM 0.0 - 0.8 05/13 [facility] HEMATOLOGY Basophils # 0.1 K/CMM 0.0 - 0.2 05/13 [facility] HEMATOLOGY Eosinophils 0.2 K/CMM 0.0 - 0.5 05/13 [facility] HEMATOLOGY Segs 61.9 % 45.0 - 05/13 75.0 [facility] HEMATOLOGY Lymphocytes 29.6 % 20.0 - 05/13 40.0 [facility] HEMATOLOGY RDW 14.3 % 11.5 - 05/13 14. [facility] HEMATOLOGY Platelet 198 K/CMM 133 - 450 05/13 [facility] HEMATOLOGY MPV 7.5 fL 7.4 - 10.4 05/13 [facility] HEMATOLOGY MCHC 33.1 g/dL 32.0 - 05/13 36.0 [facility] HEMATOLOGY MCH 30.6 pg 27.0 - 05/13 Greater 31.0 [facility] HEMATOLOGY MCV 92.7 fL 80.0 - 05/13 Greater 94.0 [facility] HEMATOLOGY WBC X 10x3 11.0 K/CMM 3.7 - 10.4 05/13 [facility] HEMATOLOGY Hct 32.9 % 42.0 - 05/13 Greater 54.0 [facility] HEMATOLOGY Hgb 10.9 g/dL 14.0 - 05/13 Greater 18.0 [facility] HEMATOLOGY RBC X 10x6 3.54 M/CMM 4.70 - 05/13 Greater 6.10 [facility] CHEM PANEL A/G Ratio 0.9 0.7 - 1.6 05/13 [facility] CHEM PANEL AGAP 12.1 meq/L 10.0 - 05/13 Greater 20. [facility] CHEM PANEL B/C Ratio 3 6 - 25 05/13 [facility] CHEM PANEL Globulin 4.5 g/dL 2.0 - 4.0 05/13 [facility] CHEM PANEL eGFR 16 05/13 3Result Comment: [...] is not recommended in the following populations: [facility] 3m2 Individuals with unstable creatinine concentrations, including [...] Total 0.8 mg/dL 0.2 - 1.3 05/13 [facility] CHEM PANEL ASPARTATE 12 unit/L 0 - 37 05/13 Greater TRANSAMINASE [facility] CHEM PANEL ALANINE 21 unit/L 0 - 65 05/13 Greater AMINOTRANS [facility] RASE CHEM PANEL Alk Phos 85 unit/L 39 - 136 05/13 [facility] CHEM PANEL Calcium Lvl 9.0 mg/dL 8.5 - 10.5 05/13 [facility] CHEM PANEL CO2 30 meq/L 24 - 32 05/13 [facility] CHEM PANEL Total 8.6 g/dL 6.4 - 8.4 05/13 [facility] CHEM PANEL Albumin Lvl 4.1 g/dL 3.5 - 5.0 05/13 [facility] CHEM PANEL Chloride Lvl 96 meq/L 95 - 109 05/13 [facility] CHEM PANEL Sodium Lvl 135 meq/L 135 - 145 05/13 [facility] CHEM PANEL Potassium 3.1 meq/L 3.5 - 5.1 05/13 [facility] CHEM PANEL Creatinine 4.3 mg/dL 0.5 - 1.4 05/13 [facility] CHEM PANEL Glucose Lvl 147 mg/dL 70 - 99 05/13 6Interpretive Data: Adult reference range values reflect the clinical guidelines of the [place] [employer]. [facility] CHEM PANEL BUN 14 mg/dL 7 - 22 05/13 [facility] CHEM PANEL Lipase Lvl 125 unit/L 73 - 393 05/13 [facility] HEMATOLOGY MCHC 33.2 g/dL 32.0 - 05/13 36.0 [facility] HEMATOLOGY RDW 14.4 % 11.5 - 05/13 Greater 14. [facility] HEMATOLOGY MCH 30.6 pg 27.0 - 05/13 31.0 [facility] HEMATOLOGY MCV 92.0 fL 80.0 - 05/13 94.0 [facility] HEMATOLOGY Platelet 228 K/CMM 133 - 450 05/13 [facility] HEMATOLOGY MPV 7.5 fL 7.4 - 10.4 05/13 [facility] HEMATOLOGY Hgb 12.4 g/dL 14.0 - 05/13 18.0 [facility] HEMATOLOGY Hct 37.4 % 42.0 - 05/13 Greater 54.0 [facility] HEMATOLOGY WBC X 10x3 12.2 K/CMM 3.7 - 10.4 05/13 [facility] HEMATOLOGY RBC X 10x6 4.06 M/CMM 4.70 - 05/13 Greater 6.10 [facility] HEMATOLOGY Eosinophils 0.1 K/CMM 0.0 - 0.5 05/13 HEMATOLOGY Basophils # 0.1 K/CMM 0.0 - 0.2 05/13 HEMATOLOGY Segs 81.2 % 45.0 - 05/13 Greater 75.0 HEMATOLOGY Eosinophils 0.8 % 0.0 - 4.0 05/13 HEMATOLOGY Lymphocytes 13.4 % 20.0 - 05/13 Greater 40.0 HEMATOLOGY Monocytes 4.2 % 2.0 - 12.0 05/13 HEMATOLOGY Basophils 0.4 % 0.0 - 1.0 05/13 HEMATOLOGY Segs-Bands # 9.9 K/CMM 1.5 - 8.1 05/13 HEMATOLOGY Lymphocytes 1.6 K/CMM 1.0 - 5.5 05/13 HEMATOLOGY Monocytes # 0.5 K/CMM 0.0 - 0.8 05/13 [facility] Chest Chest 1view PROCEDURE: Chest 1view 05/12 - - [facility] REASON FOR EXAM: See Clinic Indication CLINICAL INDICATION: Abnormal chest sounds Read by: Dino Jimenez Dictated Date/time: 05/12/13 18:52 Electronically Signed by: Dino Jimenez MD 05/12/13 18:53 FINAL REPORT COMPARISON: 05/08/2013. FINDINGS: No acute process. No focal consolidation, pleural effusion, or pneumothorax. Stable cardiac silhouette and mediastinum. SL: 12 CHEM PANEL Lipase Lvl 178 unit/L 73 - 393 05/11 [facility] CHEM PANEL eGFR 10 05/11 1Result Comment: [...] is not recommended in the following populations: [facility] 3m2 Individuals with unstable creatinine concentrations, including [...] PANEL ASPARTATE 12 unit/L 0 - 37 02 [facility] CHEM PANEL Alk Phos 88 unit/L 39 - 136 05/11 [facility] CHEM PANEL ALANINE 24 unit/L 0 - 65 05/11 AMINOTRANS [facility] RASE CHEM PANEL Albumin Lvl 4.3 g/dL 3.5 - 5.0 05/11 [facility] CHEM PANEL Bili Total 0.6 mg/dL 0.2 - 1.3 05/11 [facility] CHEM PANEL Total 9.1 g/dL 6.4 - 8.4 05/11 Protein [facility] CHEM PANEL Calcium Lvl 9.6 mg/dL 8.5 - 10.5 05/11 [facility] CHEM PANEL CO2 27 meq/L 24 - 32 05/11 [facility] CHEM PANEL Chloride Lvl 100 meq/L 95 - 109 05/11 [facility] CHEM PANEL Sodium Lvl 138 meq/L 135 - 145 05/11 [facility] CHEM PANEL Potassium 3.9 meq/L 3.5 - 5.1 05/11 [facility] CHEM PANEL Creatinine 6.3 mg/dL 0.5 - 1.4 05/11 [facility] CHEM PANEL BUN 25 mg/dL 7 - 22 05/11 [facility] CHEM PANEL Glucose Lvl 258 mg/dL 70 - 99 05/11 2Interpretive Data: Adult reference range values reflect the clinical guidelines of the [place] [employer]. [facility] CHEM PANEL Globulin 4.8 g/dL 2.0 - 4.0 05/11 [facility] CHEM PANEL A/G Ratio 0.9 0.7 - 1.6 05/11 [facility] CHEM PANEL AGAP 14.9 meq/L 10.0 - 02 20. [facility] CHEM PANEL B/C Ratio 4 6 - 25 02 [facility] HEMATOLOGY Basophils 0.2 % 0.0 - 1.0 05/11 [facility] HEMATOLOGY Monocytes # 0.2 K/CMM 0.0 - 0.8 05/11 HEMATOLOGY Eosinophils 0.0 K/CMM 0.0 - 0.5 05/11 Greater HEMATOLOGY Segs-Bands # 8.2 K/CMM 1.5 - 8.1 05/11 HEMATOLOGY Lymphocytes 1.1 K/CMM 1.0 - 5.5 05/11 HEMATOLOGY Basophils # 0.0 K/CMM 0.0 - 0.2 05/11 HEMATOLOGY Segs 85.3 % 45.0 - 05/11 Greater 75.0 HEMATOLOGY RBC Morph Normal 05/11 (05/11/2013 15:31:00 [facility]) HEMATOLOGY Plt Morph Normal 05/11 (05/11/2013 15:31:00 [facility] HEMATOLOGY Monocytes 2.4 % 2.0 - 12.0 05/11 HEMATOLOGY Eosinophils 0.1 % 0.0 - 4.0 05/11 HEMATOLOGY Lymphocytes 12.0 % 20.0 - 05/11 Greater 40.0 HEMATOLOGY Hgb 13.1 g/dL 14.0 - 05/11 Greater 18.0 HEMATOLOGY RBC X 10x6 4.31 M/CMM 4.70 - 05/11 Greater 6.10 [facility] HEMATOLOGY MPV 7.3 fL 7.4 - 10.4 05/11 HEMATOLOGY RDW 14.0 % 11.5 - 05/11 Greater 14.5 HEMATOLOGY Platelet 243 K/CMM 133 - 450 05/11 HEMATOLOGY MCHC 33.0 g/dL 32.0 - 05/11 Greater 36.0 HEMATOLOGY MCH 30.4 pg 27.0 - 05/11 Greater 31.0 HEMATOLOGY WBC X 10x3 9.6 K/CMM 3.7 - 10.4 05/11 HEMATOLOGY MCV 91.9 fL 80.0 - 05/11 Greater 94.0 HEMATOLOGY Hct 39.6 % 42.0 - 05/11 Greater 54.0 [facility] Abdomen/Pe Abdomen/Pelv CT abdomen and pelvis with IV contrast, May 11, 2013 05:09:20 PM 02/25 - Greater lvis w IV is w IV /2013 - [facility] contrast contrast CT CT CLINICAL HISTORY: Acute [...] Lvl 172 unit/L 73 - 393 05/08 [facility] CHEM PANEL A/G Ratio 1.0 0.7 - 1.6 05/08 [facility] CHEM PANEL Globulin 4.1 g/dL 2.0 - 4.0 05/08 [facility] CHEM PANEL AGAP 11.2 meq/L 10.0 - 05/08 20.0 [facility] CHEM PANEL B/C Ratio 4 6 - 25 05/08 [facility] CHEM PANEL Total 8.0 g/dL 6.4 - 8.4 05/08 Protein [facility] CHEM PANEL ASPARTATE 14 unit/L 0 - 37 05/08 TRANSAMINASE [facility] CHEM PANEL Bili Total 0.6 mg/dL 0.2 - 1.3 05/08 [facility] CHEM PANEL Albumin Lvl 3.9 g/dL 3.5 - 5.0 05/08 [facility] CHEM PANEL Alk Phos 81 unit/L 39 - 136 05/08 [facility] CHEM PANEL ALANINE 26 unit/L 0 - 65 05/08 [facility] AMINOTRANS [facility] CHEM PANEL eGFR 12 05/08 1Result Comment: The eGFR is calculated using the CKD-EPI formula. In most young, healthy individuals the eGFR will be >90 mL/ min/1.73m2. The eGFR declines with age. An eGFR of 60-89 may be normal in [facility] mL/min/1.7 some populations, particularly the elderly, for whom the CKD-EPI formula has not been extensively validated. Use of the eGFR is not recommended in the following populations: [address] Individuals with unstable creatinine concentrations, including patients [...] values reflect the clinical guidelines of the [place] [employer]. [facility] CHEM PANEL Calcium Lvl 9.4 mg/dL 8.5 - 10.5 05/08 [facility] CHEM PANEL Creatinine 5.6 mg/dL 0.5 - 1.4 05/08 [facility] CHEM PANEL BUN 24 mg/dL 7 - 22 05/08 [facility] CHEM PANEL Potassium 4.2 meq/L 3.5 - 5.1 05/08 [facility] CHEM PANEL Sodium Lvl 142 meq/L 135 - 145 05/08 [facility] CHEM PANEL Chloride Lvl 102 meq/L 95 - 109 05/08 [facility] CHEM PANEL CO2 33 meq/L 24 - 32 05/08 [facility] HEMATOLOGY Basophils # 0.0 K/CMM 0.0 - 0.2 05/08 [facility] HEMATOLOGY Monocytes # 0.5 K/CMM 0.0 - 0.8 05/08 [facility] HEMATOLOGY Eosinophils 0.1 K/CMM 0.0 - 0.5 05/08 [facility] HEMATOLOGY Segs-Bands # 4.9 K/CMM 1.5 - 8.1 05/08 [facility] HEMATOLOGY Lymphocytes 1.7 K/CMM 1.0 - 5.5 05/08 /2013 [facility] HEMATOLOGY Basophils 0.2 % 0.0 - 1.0 05/08 [facility] HEMATOLOGY Lymphocytes 23.3 % 20.0 - 05/08 40.0 /2013 [facility] HEMATOLOGY Segs 67.3 % 45.0 - 05/08 75.0 [facility] HEMATOLOGY Eosinophils 1.9 % 0.0 - 4.0 05/08 [facility] HEMATOLOGY Monocytes 7.3 % 2.0 - 12.0 05/08 [facility] HEMATOLOGY Platelet 239 K/CMM 133 - 450 05/08 [facility] HEMATOLOGY MPV 8.1 fL 7.4 - 10.4 05/08 [facility] HEMATOLOGY RDW 13.2 % 11.5 - 05/08 14.5 [facility] HEMATOLOGY MCHC 33.9 g/dL 32.0 - 05/08 36.0 [facility] HEMATOLOGY Hct 38.4 % 42.0 - 05/08 54.0 [facility] HEMATOLOGY MCH 30.9 pg 27.0 - 05/08 31.0 [facility] HEMATOLOGY MCV 91.2 fL 80.0 - 05/08 94.0 [facility] HEMATOLOGY Hgb 13.0 g/dL 14.0 - 05/08 18.0 [facility] HEMATOLOGY RBC X 10x6 4.21 M/CMM 4.70 - 05/08 6.10 [facility] HEMATOLOGY WBC X 10x3 7.2 K/CMM 3.7 - 10.4 05/08 [facility] Chest 2 Chest 2 EXAM: Chest 2 views 05/08 - [facility] views - [facility] DATE: May 08, 2013 01:22:00 PM Read [...] SODIUM 141 MEQ/L 135 - 145 10/23 [facility] mmol/L Group Chemistry POTASSIUM 4.5 MEQ/L 3.5 - 5.1 10/23 [facility] mmolL Group Chemistry CREATININE 6.4 mg/dL 0.5 - [...] Hematology HGB 13.2 g/dL 14.0 - 10/23 Medical 18.0 Group Hematology HCT 41.5 % 42.0 - 10/23 54.0 /2012 Group Hematology PLATELETS 217 K/CMM 133 - 450 10/23 Group CHEMISTRY C-Peptide 1.30 ng/mL 0.48 - 09/30 Normal [place] 5.05 [facility] BLOOD BANK ABO/Rh O POS 09/02 Unknown [place] RESULTS /2012 [facility] BLOOD BANK Antibody Negative 09/02 Normal [place] RESULTS [facility] (09/02/2012 06:25:00) Center CHEMISTRY AGAP 9.8 meq/L 10.0 - 09/02 LOW [facility] [place] 20.0 [facility] CHEMISTRY eGFR 16 09/02 NA 1Result Comment: The eGFR is calculated using the CKD-EPI formula. In most young, healthy individuals the eGFR will be > 90 mL/min/1.73m2. The eGFR declines with age. An eGFR of 60-89 may be normal in [facility] mL/min/1.7 some populations, particularly the elderly, for whom the CKD-EPI formula has not been extensively validated. Use of the eGFR is not recommended in the following populations: Medical [facility] Individuals with unstable creatinine concentrations, including [...] Lvl 147 mg/dL 70 - 99 09/02 [place] 2Interpretive Data: Adult reference range values reflect the clinical guidelines of the [place] [employer]. [facility] CHEMISTRY Potassium 5.8 meq/L 3.5 - 5.1 09/02 [facility] CHEMISTRY Sodium Lvl 141 meq/L 135 - 145 09/02 Normal [facility] CHEMISTRY BUN 31 mg/dL 7 - 22 09/02 [facility] CHEMISTRY Creatinine 4.4 mg/dL 0.5 - 1.4 09/02 [facility] CHEMISTRY CO2 30 meq/L 24 - 32 09/02 Normal [facility] CHEMISTRY Calcium Lvl 9.0 mg/dL 8.5 - 10.5 09/02 Normal [facility] CHEMISTRY Chloride Lvl 107 meq/L 95 - 109 09/02 Normal [facility] CHEMISTRY Magnesium 2.0 mg/dL 1.8 - 2.4 09/02 Normal [facility] HEMATOLOGY Eosinophils 0.3 K/CMM 0.0 - 0.5 09/02 Normal [facility] # [facility] HEMATOLOGY Monocytes # 0.9 K/CMM 0.0 - 0.8 09/02 [facility] HEMATOLOGY Eosinophils 3.5 % 0.0 - 4.0 09/02 [facility] HEMATOLOGY Basophils 0.5 % 0.0 - 1.0 09/02 Normal /2012 [facility] HEMATOLOGY Segs-Bands # 4.3 K/CMM 1.5 - 8.1 09/02 Normal /2012 [facility] HEMATOLOGY Lymphocytes 1.7 K/CMM 1.0 - 5.5 09/02 Normal [place] # /2012 [facility] HEMATOLOGY Monocytes 12.3 % 2.0 - 12.0 09/02 [place] /2012 [facility] HEMATOLOGY Segs 59.9 % 45.0 - 09/02 Normal [place] 75.0 /2012 [facility] HEMATOLOGY Lymphocytes 23.8 % 20.0 - 09/02 Normal [place] 40.0 /2012 [facility] [place] HEMATOLOGY MCHC 33.2 g/dL 32.0 - 09/02 Normal [place] 36.0 /2012 [facility] HEMATOLOGY RDW 15.4 % 11.5 - 06 HI [place] 14.5 /2012 [facility] HEMATOLOGY MPV 8.4 fL 7.4 - 10.4 09/02 Normal /2012 [facility] HEMATOLOGY Platelet 166 K/CMM 133 - 450 09/02 Normal /2012 [facility] HEMATOLOGY Hgb 13.7 g/dL 14.0 - 09/02 LOW [facility] 18.0 /2012 [facility] HEMATOLOGY MCV 91.0 fL 80.0 - 09/02 Normal [facility] 94.0 /2012 [facility] HEMATOLOGY Hct 41.3 % 42.0 - 09/02 LOW [place] 54.0 /2012 [facility] HEMATOLOGY MCH 30.2 pg 27.0 - 09/02 Normal [facility] 31.0 /2012 [facility] HEMATOLOGY WBC 7.2 K/CMM 3.7 - 10.4 09/02 Normal /2012 [facility] HEMATOLOGY RBC 4.54 M/CMM 4.70 - 09/02 LOW [facility] 6.10 /2012 [facility] [place] HEMATOLOGY PTT 30.1 s 22.9 - 09/02 Normal 4Interpretive [facility] 35.8 /2012 Data: [facility] Range: 57 - 92 Second[facility] HEMATOLOGY PT 12.7 s 12.0 - 09/02 Normal [facility] 14.7 /2012 [facility] HEMATOLOGY INR 0.93 0.85 - 09/02 Normal 3Interpretive Data: RECOMMENDED RANGES FOR PROTIME INR: [facility] 1.17 2.0-3.0 for most medical and surgical thromboembolic states. Medical 2.5-3.5 for artificial heart valves and recurrent embolism. Center INR SHOULD BE USED ONLY FOR PATIENTS ON STABLE ANTICOAGULANT THERAPY. HVI VAS HVI VAS Indications: Carotid bruit; preoperative evaluation 08/18 - [facility] Arterial Arterial /2012 - Medical [facility]rani Extracranial This report was dictated by a Optimization Analyst/Fellow. I have personally reviewed the images as [...] vertebral arteries. Abdomen/Pe Abdomen/Pelv Comparison: 07/14/201008/15 - OPID lvis wo is - The contrast contrast CT Patient: MARTY BASS [facility] Read by: Waqar Friend Dictated Date/time: [...] SL: 23 BLOOD BANK ABO/Rh O POS 07/20 Unknown The RESULTS /2012 [facility] BLOOD BANK ABO/Rh O POS 07/20 Unknown The RESULTS [facility] CHEMISTRY PTH Intact 321.2 11.1 - 07/20 HI The pg/mL 79.5 [facility] CHEMISTRY LDL Direct 92 mg/dL 0 - 129 05/ Normal The [facility] CHEMISTRY Transferrin 194 mg/dL 212 - 360 05/ LOW The [facility]ATOLOGY [facility] % 77 - 140 05 Normal The [place] [facility] IMMUNOLOGY TB - NIL 0.06 05 NA 20Result Comment: The Nil tube value is used to determine if the patient MH The [iU]/mL /2012 has a preexisting immune response which could cause a [facility] false-positive reading on the test. In order [...] IU/mL. For additional information, please refer to http://education.Dinetouch/faq/QFT (This link is being provided for informational/ educational purposes only.) Test Performed at: [facility] [address] [address] DAGO TORRES M.D. IMMUNOLOGY Mitogen - 9.37 07/20 NA The NIL [iU]/mL [facility] IMMUNOLOGY Quantiferon NEGATIVE NEGATIVE 07/20 NA 19Result Comment: Negative test result. M. tuberculosis complex The - TB Gold infection unlikely. [facility] IMMUNOLOGY NIL 0.04 07/20 NA The [iU]/mL [facility] IMMUNOLOGY Cardiolipin 1 IgA 07/20 NA 14Interpretive Data: Reference Ranges for IgA: [facility] IgA 0-11 APL Negative [facility] id Units 12-20 APL Inconclusive 21-80 APL Low-Med Positive > 80 APL Strong Positive IMMUNOLOGY Cardiolipin 2 IgG 07/20 NA 15Interpretive Data: Reference Ranges for IgG: [facility] IgG 0-14 GPL Negative [facility] id Units 15-20 GPL Inconclusive 21-80 GPL Low-Med Positive > 80 GPL Strong Positive IMMUNOLOGY Cardiolipin 6.0 IgM 07/20 NA 16Interpretive Data: Reference Ranges for IgM: [facility] IgM [facility] 0-12.4 MPL Negative [facility] id Units 12.5-20 MPL Inconclusive 21-80 MPL Low-Med Positive > 80 MPL Strong Positive IMMUNOLOGY HSV 1 IgG null <=0.8 07/20 [place] 17Interpretive Data: Antibody Index (AI) Results Interpretation ------- [facility] 0.0-0.8 Negative No detectable IgG Antibody. 0.9-1.0 Equivocal Repeat testing suggested in 10-14 days. >=1.10 Positive Indicates presence of detectable IgG Antibody. IMMUNOLOGY HSV 2 IgG null <=0.8 07/20 [place] 18Interpretive Data: Antibody Index (AI) Results Interpretation ------- [facility] 0.0-0.8 Negative No detectable IgG Antibody. 0.9-1.0 Equivocal Repeat testing suggested in 10-14 days. >=1.10 Positive Indicates presence of detectable IgG Antibody. IMMUNOLOGY Varicella 1.8 AI <=0.8 07/20 [place] 13Interpretive Data: Antibody Index (AI) Results Interpretation The IgG ------- [facility] 0.0-0.8 Negative No detectable IgG Antibody. 0.9-1.0 Equivocal Repeat testing suggested in 10-14 days. >=1.10 Positive Indicates presence of detectable IgG Antibody. IMMUNOLOGY Hep B Core Negative Negative 07/20 NA The Ab [facility] *NA* (07/20/2012 14:00:00) IMMUNOLOGY Homocyst Tot 14.4 3.7 - 13.9 07/20 HI The umol/L [facility] IMMUNOLOGY C4 28 mg/dL 16 - 47 05 Normal The Complement [facility] IMMUNOLOGY C3 101 mg/dL 88 - 201 05 Normal The [facility] CHEMISTRY Hgb A1C 5.0 % 07/20 NA 4Interpretive Data: HbA1C% eAG(mg /dL) Interpretation 6.0 126 Very good control [facility] 6.5 140 Very good control 7.0 154 [...] is not recommended in the following populations: [facility] 3m2 Individuals with unstable creatinine concentrations, including [...] 0.3 mg/dL 0.2 - 1.3 05/ Normal [facility] CHEMISTRY Alk Phos 81 unit/L 39 - 136 05/06 Normal [facility] CHEMISTRY AST 12 unit/L 0 - 37 05/06 Normal [facility] CHEMISTRY ALT 19 unit/L 0 - 65 05/06 Normal [facility] CHEMISTRY Albumin Lvl 3.0 g/dL 3.5 - 5.0 05/06 LOW The [facility] CHEMISTRY Calcium Lvl 8.1 mg/dL 8.5 - 10.5 05/06 LOW The [facility] CHEMISTRY Sodium Lvl 141 meq/L 135 - 145 05/06 Normal The [facility] CHEMISTRY Potassium 5.2 meq/L 3.5 - 5.1 05/06 HI The Lvl /2012 [facility] CHEMISTRY Chloride Lvl 108 meq/L 95 - 109 05/06 Normal The [facility] CHEMISTRY CO2 23 meq/L 24 - 32 05/06 LOW The [facility] CHEMISTRY Creatinine 6.7 mg/dL 0.5 - 1.4 05/06 HI The Lvl /2012 [facility] CHEMISTRY BUN 65 mg/dL 7 - 22 05/06 HI The [facility] CHEMISTRY Glucose Lvl 110 mg/dL 70 - 99 05/06 HI 2Interpretive Data: Adult reference range values reflect the clinical guidelines The of the [place] [employer]. [facility] CHEMISTRY Total 6.6 g/dL 6.4 - 8.4 05/06 Normal The Protein [facility] CHEMISTRY AGAP 15.2 meq/L 10.0 - 05/06 Normal The 20.0 [facility] CHEMISTRY B/C Ratio 10 6 - 25 05/06 Normal The [facility] CHEMISTRY Globulin 3.6 g/dL 2.0 - 4.0 05/06 Normal The [facility] CHEMISTRY A/G Ratio 0.8 0.7 - 1.6 05/06 Normal The [facility] CHEMISTRY CHD Risk 3.36 4.00 - 05/06 LOW The 7.30 [facility] CHEMISTRY LDL 79 mg/dL 0 - 129 05/06 Normal The [facility] CHEMISTRY Trig 127 mg/dL 0 - 200 05/06 Normal The [facility] CHEMISTRY Chol 148 mg/dL 120 - 200 05/06 Normal The [facility] CHEMISTRY HDL 44 mg/dL >=35 05/06 Normal The [facility] CHEMISTRY Phosphorus 4.6 mg/dL 2.5 - 4.5 05/06 HI The [facility] CHEMISTRY LDH 207 unit/L 98 - 192 05/06 HI The [facility] CHEMISTRY Iron 37 ug/dl 45 - 160 05/06 LOW [facility] CHEMISTRY Vitamin D, 16 ng/mL 30 - 100 05/ LOW 3Interpretive Data: Reference range is based on recommendations in the Endocrine The 25-OH, Total Society Clinical Practice Guideline (J Clin Endocrinol Metab [facility] 2011;96:0502-4096) CHEMISTRY Immune Cell 474 05 NA 7Result Comment: Reference Range The < kt=313 Low immune cell response [facility] 226-524 Moderate immune cell response > vl=381 High immune cell response Test Performed at: [facility] [address] [address] DAGO TORRES M.D. CHEMISTRY Martine Scr Negative Negative 05/06 Normal [facility] (07/20/2012 13:30:00) CHEMISTRY Benzodiaz Negative Negative 05/ Normal The [facility] (07/20/2012 13:30:00) CHEMISTRY Cannab Scr Negative Negative 05/06 Normal [facility] (07/20/2012 13:30:00) CHEMISTRY Amph Scr Negative Negative 05/06 Normal [facility] (07/20/2012 13:30:00) CHEMISTRY Methadone Negative Negative 05/06 Normal The [facility] (07/20/2012 13:30:00) CHEMISTRY Opiate Scr Negative Negative 05/06 Normal [facility] (07/20/2012 13:30:00) CHEMISTRY PCP Scr Negative Negative 05/06 Normal [facility] (07/20/2012 13:30:00) CHEMISTRY Propoxyphn Negative Negative 05/06 Normal The [facility] (07/20/2012 13:30:00) CHEMISTRY Cocaine Scr Negative Negative 05/06 Normal [facility] (07/20/2012 13:30:00) CHEMISTRY Cutoff See Note 5, 6 05 Normal 6Interpretive Data: Cutoff ( lowest detectable by EIA) values for Serum Drugscreen: THC and PCP: 1 ng/mL [facility] (07/20/2012 13:30:00) All others: 20 ng/mL Cutoff (lowest detectable by GC/MS) value for confirmation: THC and PCP: 1 ng/mL Benzodiazepines: 5 ng/ml All others: 10 ng/ml Test performed by [id number] [address] [place] [address] HEMATOLOGY WBC 8.8 K/CMM 3.7 - 10.4 05/06 Normal The [facility] HEMATOLOGY RBC 3.82 M/CMM 4.70 - 05/06 LOW The 6.10 [facility] HEMATOLOGY MCH 30.6 pg 27.0 - 05/06 Normal The 31.0 [facility] HEMATOLOGY Hct 36.3 % 42.0 - 05/06 LOW The 54.0 [facility] HEMATOLOGY MCV 95.1 fL 80.0 - 05/06 HI The 94.0 [facility] HEMATOLOGY MCHC 32.1 g/dL 32.0 - 05/06 Normal The 36.0 [facility] HEMATOLOGY Hgb 11.7 g/dL 14.0 - 05/06 LOW The 18.0 [facility] HEMATOLOGY RDW 16.8 % 11.5 - 05/06 HI The 14.5 [facility] HEMATOLOGY MPV 7.3 fL 7.4 - 10.4 05/06 LOW The [facility] HEMATOLOGY Platelet 258 K/CMM 133 - 450 05/06 Normal The [facility] HEMATOLOGY Lymphocytes 27.5 % 20.0 - 05/06 Normal The 40.0 [facility] HEMATOLOGY Segs 61.7 % 45.0 - 05/06 Normal The 75.0 [facility] HEMATOLOGY Monocytes 7.6 % 2.0 - 12.0 05/06 Normal The [facility] HEMATOLOGY Eosinophils 2.9 % 0.0 - 4.0 05/06 Normal The [facility] HEMATOLOGY Basophils 0.3 % 0.0 - 1.0 05/06 Normal MH The [facility] HEMATOLOGY Lymphocytes 2.4 K/CMM 1.0 - 5.5 05/06 Normal MH The # [facility] HEMATOLOGY Monocytes # 0.7 K/CMM 0.0 - 0.8 05/06 Normal MH The [facility] HEMATOLOGY Basophils # 0.0 K/CMM 0.0 - 0.2 05/06 Normal MH The [facility] HEMATOLOGY Eosinophils 0.3 K/CMM 0.0 - 0.5 05/06 Normal MH The # [facility] HEMATOLOGY Segs-Bands # 5.4 K/CMM 1.5 - 8.1 05/06 Normal [facility] HEMATOLOGY PT 12.9 s 12.0 - 07/20 Normal [facility] 14 [facility] HEMATOLOGY INR 0.95 0.85 - 07/20 Normal 8Interpretive Data: RECOMMENDED RANGES FOR PROTIME INR: [facility] 04.02 2.0-3.0 for most medical and surgical thromboembolic states. [facility] 2.5-3.5 for artificial heart valves and recurrent embolism. INR SHOULD BE USED ONLY FOR PATIENTS ON STABLE ANTICOAGULANT THERAPY. HEMATOLOGY PTT 30.7 s 22.9 - 07/20 Normal 9Interpretive [facility] 35 Data: Heparin [facility] Therapeutic Range: 57 - 92 Seconds IMMUNOLOGY Hep Bs Ag Negative Negative 07/20 NA [facility] *NA* (07/20/2012 13:30:00) IMMUNOLOGY Hep Bs Ab 1.9 mIU/mL <=7.4 07/20 Normal 21Interpretive Data: < =7.4 mIU/mL--------Negative for Anti-HBs. Not immune to HBV infection. [facility] 7.5-12.4 mIU/mL--Borderline for Anti-HBs and immune status should be further assessed by considering other factors such as clinical status follow-up testing, associated risk factors, and the use of additional diagnostic information. >12.4 mIU/mL-------Positive for Anti-HBs. Immune to HBV infection IMMUNOLOGY Hep C Ab Negative Negative 07/20 [facility] *NA* (07/20/2012 13:30:00) IMMUNOLOGY EBV VCA IgG null <=0.8 07/20 [place] 11Interpretive Data: Antibody Index (AI) Results Interpretation ------- [facility] 0.0-0.8 Negative No detectable IgG Antibody. 0.9-1.0 Equivocal Repeat testing suggested in 10-14 days. >=1.10 Positive Indicates presence of detectable IgG Antibody. IMMUNOLOGY CMV IgM 0.2 S/CO 07/20 NA 10Interpretive Data: Reference Ranges: Non-reactive: <0.9 S/CO Ratio [facility] Indeterminate: 0.9 - 1.0 S/CO Ratio Reactive: >=1.1 S/CO Ratio IMMUNOLOGY CMV IgG Reactive Non 07/20 ABN The Reactive [place] *ABN* (07/20/2012 13:30:00) IMMUNOLOGY HIV 1/2 Ab Negative Negative 07/20 NA The [place] *NA* (07/20/2012 13:30:00) IMMUNOLOGY RPR Non Reactive Non 07/20 Normal The Reactive [place] (07/20/2012 13:30:00) IMMUNOLOGY EBV VCA IgM null <=0.8 07/20 Normal 12Interpretive Data: Antibody Index (AI) Results Interpretation ------- [place] 0.0-0.8 Negative No detectable IgM Antibody. 0.9-1.0 Equivocal Repeat testing suggested in 10-14 days. >=1.10 Positive Significant level of detectable IgM Antibody, indicative of current or recent infection. CHEMISTRY Lipase Lvl 193 unit/L 73 - 393 06/23 Normal [facility] CHEMISTRY Chloride Lvl 99 meq/L 95 - 109 06/23 Normal The [facility] CHEMISTRY Total 5.8 g/dL 6.4 - 8.4 06/23 LOW The Protein [facility] CHEMISTRY Calcium Lvl 8.1 mg/dL 8.5 - 10.5 06/23 LOW The [facility] CHEMISTRY CO2 34 meq/L 24 - 32 06/23 HI The [facility] CHEMISTRY Potassium 3.6 meq/L 3.5 - 5.1 06/23 Normal The Lvl [facility] CHEMISTRY Sodium Lvl 139 meq/L 135 - 145 / Normal The [facility] CHEMISTRY Albumin Lvl 2.3 g/dL 3.5 - 5.0 06/23 LOW [facility] CHEMI[facility] AST 27 unit/L 0 - 37 06/23 Normal The [facility] CHEMISTRY Bili Total 0.4 mg/dL 0.2 - 1.3 06/23 Normal The [facility] CHEMISTRY eGFR 16 06/23 NA 1Result Comment: The eGFR is calculated using the CKD-EPI formula. In most young, healthy individuals the eGFR will be > 90 mL/min/1.73m2. The eGFR declines with age. An eGFR of 60-89 may be normal in The mL/min/1.7 /2012 some populations, particularly the elderly, for whom the CKD-EPI formula has not been extensively validated. Use of the eGFR is not recommended in the following populations: [facility] 3m2 Individuals with unstable creatinine concentrations, including [...] CHEMISTRY ALT 21 unit/L 0 - 65 04 Normal [facility] CHEMISTRY Alk Phos 84 unit/L 39 - 136 04 Normal [facility] CHEMI[facility] BUN 23 mg/dL 7 - 22 06/23 HI [facility] CHEMISTRY Glucose Lvl 142 mg/dL 70 - 99 06/23 [place] 2Interpretive Data: Adult reference range values reflect the clinical guidelines of the [place] [employer]. [facility] CHEMI[facility]Y Creatinine 4.5 mg/dL 0.5 - 1.4 06/23 [facility] The Lvl [facility] CHEMISTRY B/C Ratio 5 6 - 25 06/23 LOW [facility] CHEMISTRY AGAP 9.6 meq/L 10.0 - 04 LOW The 20.0 [facility] CHEMI[facility] A/G Ratio 0.7 0.7 - 1.6 04 Normal [facility] CHEMISTRY Globulin 3.5 g/dL 2.0 - 4.0 04 Normal [facility] HEMATOLOGY Eosinophils 0.2 K/CMM 0.0 - 0.5 04 Normal The # [facility] HEMATOLOGY Basophils # 0.0 K/CMM 0.0 - 0.2 06/23 Normal [facility] HEMATOLOGY Monocytes 9.4 % 2.0 - 12.0 04 Normal [facility] HEMATOLOGY Segs 69.7 % 45.0 - 04/09 Normal The 75.0 [facility] HEMATOLOGY Lymphocytes 18.2 % 20.0 - 04/ LOW The 40.0 [facility] HEMATOLOG[facility] Eosinophils 2.5 % 0.0 - 4.0 04/ Normal The [facility] HEMATOLOGY Monocytes # 0.9 K/CMM 0.0 - 0.8 04/ HI The [facility] HEMATOLOGY Basophils 0.2 % 0.0 - 1.0 / Normal The [facility] HEMATOLOGY Lymphocytes 1.8 K/CMM 1.0 - 5.5 04/ Normal The # /2012 [facility] HEMATOLOGY Segs-Bands # 6.7 K/CMM 1.5 - 8.1 04/ Normal The [facility] HEMATOLOGY RBC 3.16 M/CMM 4.70 - 06/23 LOW The 6.10 [facility] HEMATOLOG[facility] Hgb 9.4 g/dL 14.0 - 06/23 LOW The 18.0 [facility] HEMATOLOGY Hct 30.1 % 42.0 - 06/23 LOW The 54.0 [facility] HEMATOLOGY MCV 95.0 fL 80.0 - 06/23 HI The 94.0 [facility] HEMATOLOGY MPV 7.7 fL 7.4 - 10.4 06/23 Normal The [facility] HEMATOLOGY MCH 29.7 pg 27.0 - 06/23 Normal The 31.0 [facility] HEMATOLOG[facility] MCHC 31.3 g/dL 32.0 - 06/23 LOW The 36.0 [facility] HEMATOLOGY RDW 16.7 % 11.5 - 06/23 HI The 14.5 [facility] HEMATOLOGY Platelet 229 K/CMM 133 - 450 06/23 Normal The [facility] HEMATOLOGY WBC 9.6 K/CMM 3.7 - 10.4 06/23 Normal The [facility] URINALYSIS UA <=1.0 0.1 - 1.0 06/23 NA The Urobilinogen mg/dL [facility]
*NA*< br/>(06/23 07:32:00) <sup> </sup> URINALYSIS UA Hyal Cast 1 /LPF 0 - 2 06/23 Normal [facility] URINALYSIS UA Mucus Few /LPF None Seen 06/23 NA [facility] *NA* (06/23/2012 07:32:00) URINALYSIS UA Leuk Est Negative Negative 06/23 Normal [facility] (06/23/2012 07:32:00) URINALYSIS UA Sq Epi Few /LPF Few 06/23 NA [facility] *NA* (06/23/2012 07:32:00) URINALYSIS UA Ketones Negative mg/dL Negative 06/23 NA [facility] *NA* (06/23/2012 07:32:00) URINALYSIS UA Nitrite Negative Negative 06/23 Normal [facility] (06/23/2012 07:32:00) URINALYSIS UA Turbidity Clear Clear 06/23 Normal [facility] (06/23/2012 07:32:00) URINALYSIS UA Color Yellow Yellow 06/23 NA [facility] *NA* (06/23/2012 07:32:00) URINALYSIS UA WBC 2 /HPF 0 - 5 06/23 Normal [facility] URINALYSIS UA Bili Negative Negative 06/23 NA [facility] *NA* (06/23/2012 07:32:00) URINALYSIS UA Blood Negative Negative 06/23 Normal [facility] (06/23/2012 07:32:00) URINALYSIS UA Glucose 200 mg/dL Negative 06/23 ABN [facility] *ABN* (06/23/2012 07:32:00) URINALYSIS UA Protein >=300 mg/dL Negative 06/23 ABN [facility] *ABN* (06/23/2012 07:32:00) URINALYSIS UA pH 8.0 5.0 - 8.0 06/23 Normal [facility] URINALYSIS UA Spec Grav 1.013 <=1.030 06/23 Normal [facility] URINALYSIS UA RBC 1 /HPF 0 - 2 06/23 Normal [facility] Chemistry HGBA1C 5.1 % 06/04 [facility] CHOLESTEROL 292 mg/dl 120 - 200 06/04 [facility] TRIGLYCERIDE 200 mg/dl 0 - 200 06/04 [facility] HDL 37 mg/dl >=35 06/04 [facility] LDL 215 mg/dl 0 - 129 06/04 [facility] SODIUM 139 MEQ/L 135 - 145 06/04 Medical mmol/L [facility] Chemistry POTASSIUM 4.6 MEQ/L 3.5 - 5.1 06/04 [facility] mmol/L [facility] CREATININE 7.4 mg/dL 0.5 [...] PHOS 66 U/L 39 - 136 06/04 Medical /2013 [facility] HGB 7.9 g/dL 14.0 [...] 200 mg/dL. BEDSIDE Comment1 Notify RN 03/03 [facility] GLUCOSE [facility] TESTING CHEMISTRY eGFR 12 03/03 NA 2Result [...] is not recommended in the following populations: [facility] 3m2 Individuals with unstable creatinine concentrations, including [...] 143 meq/L 135 - 145 03/03 Normal [facility] CHEMISTRY CO2 20 meq/L 24 - 32 03/03 LOW [facility] CHEMISTRY Calcium Lvl 7.6 mg/dL 8.5 - 10.5 03/03 LOW [facility] CHEMISTRY Chloride Lvl 114 meq/L 95 - 109 03/03 HI [facility] CHEMISTRY Potassium 5.1 meq/L 3.5 - 5.1 03/03 Normal Lvl [facility] CHEMISTRY Creatinine 5.8 mg/dL 0.5 - 1.4 03/03 HI Lvl /2012 [facility] CHEMISTRY Glucose Lvl 203 mg/dL 70 - 99 12/ HI 4Interpretive Data: Adult reference range values reflect the clinical guidelines /2011 of the [place] [employer]. [facility] CHEMISTRY BUN 64 mg/dL 7 - 22 /18 HI MH /2011 [facility] CHEMISTRY AGAP 14.1 meq/L 10.0 - 12/18 Normal MH 20.0 /2011 [facility] HEMATOLOGY Eosinophils 0.2 K/CMM 0.0 - 0.5 12/18 Normal MH # /2012 [facility] HEMATOLOG[facility] Monocytes # 0.4 K/CMM 0.0 - 0.8 12/18 Normal [facility] /2011 [facility] HEMATOLOGY Basophils # 0.0 K/CMM 0.0 - 0.2 12/ Normal MH /2011 [facility] HEMATOLOGY Lymphocytes 1.9 K/CMM 1.0 - 5.5 12/ Normal MH # /2011 [facility] HEMATOLOGY Basophils 0.4 % 0.0 - 1.0 / Normal MH /2011 [facility] HEMATOLOGY Segs-Bands # 5.1 K/CMM 1.5 - 8.1 / Normal MH /2011 [facility] HEMATOLOGY Lymphocytes 24.9 % 20.0 - 1218 Normal MH 40.0 /2011 [facility] HEMATOLOGY Eosinophils 3.1 % 0.0 - 4.0 /18 Normal MH /2011 [facility] HEMATOLOGY Monocytes 5.7 % 2.0 - 12.0 /18 Normal MH /2011 [facility] HEMATOLOGY Segs 65.9 % 45.0 - 12/18 Normal MH 75.0 /2011 [facility] HEMATOLOGY RBC 2.86 M/CMM 4.70 - 12/18 LOW MH 6.10 /2011 [facility] HEMATOLOGY Platelet 234 K/CMM 133 - 450 /18 Normal MH /2011 [facility] HEMATOLOGY MPV 8.1 fL 7.4 - 10.4 12/18 Normal MH /2011 [facility] HEMATOLOGY RDW 13.3 % 11.5 - 12/18 Normal MH 14.5 /2011 [facility] HEMATOLOGY MCHC 33.8 g/dL 32.0 - 12/18 Normal MH 36.0 /2011 [facility] HEMATOLOGY MCH 30.0 pg 27.0 - 12/18 Normal MH 31.0 /2011 [facility] HEMATOLOGY MCV 88.8 fL 80.0 - 12/18 Normal MH 94.0 /2011 [facility] HEMATOLOGY Hgb 8.6 g/dL 14.0 - 12/18 LOW MH 18.0 /2011 [facility] HEMATOLOGY Hct 25.4 % 42.0 - 12/18 LOW MH 54.0 [facility] HEMATOLOGY WBC 7.8 K/CMM 3.7 - 10.4 03/03 Normal [facility] CHEMISTRY eGFR 12 02/27 NA 3Result Comment: The eGFR is calculated using the CKD-EPI formula. In most young, healthy individuals the eGFR will be > 90 mL/min/1.73m2. The eGFR declines with age. An eGFR of 60-89 may be normal in mL/min/1.7 /2011 some populations, particularly the elderly, for whom the CKD-EPI formula has not been extensively validated. Use of the eGFR is not recommended in the following populations: [facility] 3m2 Individuals with unstable creatinine concentrations, including [...] 113 meq/L 95 - 109 02/27 HI [facility] CHEMISTRY Calcium Lvl 7.3 mg/dL 8.5 - 10.5 02/27 LOW [facility] CHEMISTRY Sodium Lvl 142 meq/L 135 - 145 02/27 Normal [facility] CHEMISTRY BUN 63 mg/dL 7 - 22 02/27 NH [facility] CHEMISTRY Creatinine 5.7 mg/dL 0.5 - 1.4 02/27 [facility] Lvl [facility] CHEMISTRY Glucose Lvl 45 mg/dL 70 - 99 02/27 LOW 5Interpretive Data: Adult reference range values reflect the clinical guidelines of the [place] [employer]. [facility] CHEMISTRY CO2 21 meq/L 24 - 32 02/27 LOW MH /2011 [facility] CHEMISTRY Potassium 4.4 meq/L 3.5 - 5.1 02/27 Normal Lvl /2011 [facility] CHEMISTRY AGAP 12.4 meq/L 10.0 - 02/27 Normal 20.0 [facility] HEMATOLOGY Eosinophils 0.2 K/CMM 0.0 - 0.5 02/27 Normal MH # /2011 [facility] HEMATOLOGY Monocytes # 0.5 K/CMM 0.0 - 0.8 02/27 Normal /2011 [facility] HEMATOLOGY Lymphocytes 2.6 K/CMM 1.0 - 5.5 12/14 Normal MH # /2012 [facility] HEMATOLOGY Segs-Bands # 5.1 K/CMM 1.5 - 8.1 02/27 Normal MH /2011 [facility] HEMATOLOGY Basophils 0.5 % 0.0 - 1.0 02/27 Normal MH /2011 [facility] HEMATOLOGY Eosinophils 2.0 % 0.0 - 4.0 02/27 Normal MH /2011 [facility] HEMATOLOGY Basophils # 0.0 K/CMM 0.0 - 0.2 02/27 Normal [facility] HEMATOLOGY Monocytes 6.1 % 2.0 - 12.0 02/27 Normal MH /2011 [facility] HEMATOLOGY Lymphocytes 30.6 % 20.0 - 02/27 Normal MH 40.0 /2011 [facility] HEMATOLOGY Segs 60.8 % 45.0 - 02/27 Normal MH 75.0 [facility] HEMATOLOGY INR 0.99 0.85 - 02/27 Normal 6Interpretive Data: RECOMMENDED RANGES FOR PROTIME INR: . 2.0-3.0 for most medical and surgical thromboembolic states. [facility] 2.5-3.5 for artificial heart valves and recurrent embolism. INR SHOULD BE USED ONLY FOR PATIENTS ON STABLE ANTICOAGULANT THERAPY. HEMATOLOGY PT 13.3 s 12.0 - 02/27 Normal 14. [facility] HEMATOLOGY PTT 33.7 s 22.9 - 02/27 Normal 7Interpretive MH 35.8 Data: Heparin [facility] Therapeutic Range: 57 - 92 [facility] HEMATOLOGY WBC 8.5 K/CMM 3.7 - 10.4 02/27 Normal /2011 [facility] HEMATOLOGY RBC 2.59 M/CMM 4.70 - 02/27 LOW MH 6.10 [facility] HEMATOLOGY Hgb 7.8 g/dL 14.0 - 02/27 LOW 18.0 [facility] HEMATOLOGY MPV 8.2 fL 7.4 - 10.4 / Normal /2011 [facility] HEMATOLOGY MCHC 34.1 g/dL 32.0 - 02/27 Normal MH 36.0 [facility] HEMATOLOGY Platelet 229 K/CMM 133 - 450 02/27 Normal MH /2011 [facility] HEMATOLOGY RDW 13.2 % 11.5 - 1214 Normal MH 14. [facility] HEMATOLOGY MCV 88.2 fL 80.0 - 02/27 Normal MH 94.0 [facility] HEMATOLOGY Hct 22.9 % 42.0 - 12 LOW 54.0 [facility] HEMATOLOGY MCH 30.1 pg 27.0 - 12/ Normal MH 31.0 [facility] URINALYSIS UA Color STRAW 02/27 NA [facility] URINALYSIS UA Spec Grav 1.020 <=1.030 02/27 Normal [facility] URINALYSIS UA Turbidity Clear Clear 02/27 Normal [facility] (02/28/2012 16:20:00) URINALYSIS UA 0.2 EU/dL 0.1 - 1.0 02/27 Normal Urobilinogen [facility] URINALYSIS UA Nitrite Negative Negative 02/27 Normal [facility] (02/28/2012 16:20:00) URINALYSIS UA Blood Moderate Negative 02/27 [facility] *ABN* (02/28/2012 16:20:00) URINALYSIS UA Bili Negative Negative 02/27 [facility] *NA* (02/28/2012 16:20:00) URINALYSIS UA Glucose 100 mg/dL Negative 02/27 [facility] *ABN* (02/28/2012 16:20:00) URINALYSIS UA Ketones Negative Negative 02/27 NA [facility] *NA* (02/28/2012 16:20:00) URINALYSIS UA Protein >=300 mg/dL Negative 02/27 ABN [facility] *ABN* (02/28/2012 16:20:00) URINALYSIS UA pH 6.5 5.0 - 8.0 02/27 Normal [facility] URINALYSIS Micro? Performed 02/27 Normal [facility] (02/28/2012 16:20:00) URINALYSIS UA RBC 3-5 /HPF 0 - 2 02/27 ABN [facility] *ABN* (02/28/2012 16:20:00) URINALYSIS UA Bacteria Occasional /HPF None Seen 02/27 Normal [facility] (02/28/2012 16:20:00) URINALYSIS UA Sq Epi Rare /LPF Few 02/27 Normal [facility] (02/28/2012 16:20:00) URINALYSIS UA WBC None Seen None Seen 02/27 Normal [facility] (02/28/2012 16:20:00) URINALYSIS UA Leuk Est Negative Negative 02/27 Normal [facility] (02/28/2012 16:20:00) Chemistry HGBA1C 6.9 % 11/11 [facility] TSH 1.420 0.360 - 11/11 [facility] uIU/mL 3.740 /2011 [facility] Chemistry CHOLESTEROL 327 mg/dl 120 - 200 11/11 [facility] TRIGLYCERIDE 155 mg/dl 0 - 200 11/11 [facility] HDL 54 mg/dl >=35 11/11 [facility] LDL 242 mg/dl 0 - 129 11/11 [facility] SODIUM 141 MEQ/L 135 - 145 11/11 [facility] mmol/L Group Chemistry POTASSIUM 4.7 MEQ/L 3.5 - 5.1 11/11 [facility] mmol/L Group Chemistry CREATININE 4.9 mg/dL 0.5 - [...] Date Comments Source BMI Calculated 36.42 02/01/2016 [facility] Weight 102.358 02/01/2016 [facility] Respitory Rate 16 02/01/2016 [facility] Temperature Oral (F) 98.0 F 02/01/2016 [facility] Heart Rate 92 02/01/2016 [facility] Height 167.64 cm 02/01/2016 [facility] Systolic (mm Hg) 185 01/23/2016 [facility] Diastolic (mm Hg) 114 01/23/2016 [facility] Respitory Rate 20 01/23/2016 [facility] Heart Rate 92 01/23/2016 [facility] Height 167 cm 01/23/2016 [facility] BMI Calculated 36.54 01/23/2016 [facility] Weight 101.9 01/23/2016 [facility] BMI Calculated 34.94 02/23/2015 [facility] Weight 98.182 02/23/2015 [facility] Height 167.64 cm 02/23/2015 [facility] Heart Rate 83 02/23/2015 [facility] Systolic (mm Hg) 125 02/23/2015 [facility] Diastolic (mm Hg) 86 02/23/2015 [facility] Weight 97.898 02/08/2015 [facility] BMI Calculated 34.84 02/08/2015 [facility] Height 167.64 cm 02/08/2015 [facility] Systolic (mm Hg) 135 02/08/2015 [facility] Diastolic (mm Hg) 90 02/08/2015 [facility] Heart Rate 92 02/08/2015 [facility] Temperature Oral (F) 97.4 F 02/08/2015 [facility] Weight 90.455 11/02/2014 [facility] BMI Calculated 32.19 11/02/2014 [facility] Height 167.64 cm 11/02/2014 [facility] Heart Rate 90 11/02/2014 [facility] Temperature Oral (F) 97.4 F 11/02/2014 [facility] Systolic (mm Hg) 147 11/02/2014 [facility] Diastolic (mm Hg) 96 11/02/2014 [facility] Height 167.64 cm 10/18/2014 [facility] BMI Calculated 33.08 10/18/2014 [facility] Weight 92.955 10/18/2014 [facility] Temperature Oral (F) 98.1 F 10/18/2014 [facility] Respitory Rate 18 10/18/2014 [facility] Heart Rate 94 10/18/2014 [facility] Heart Rate 82 09/20/2014 [facility] Weight 94.7 09/20/2014 [facility] BMI Calculated 32.39 09/20/2014 [facility] Height 171 cm 09/20/2014 [facility] Respitory Rate 19 09/20/2014 [facility] Systolic (mm Hg) 167 09/20/2014 [facility] Diastolic (mm Hg) 109 09/20/2014 [facility] Systolic (mm Hg) 168 09/07/2014 [facility] Diastolic (mm Hg) 99 09/07/2014 [facility] Heart Rate 82 09/07/2014 [facility] Temperature Oral (F) 98.3 F 09/07/2014 [facility] Height 66 09/07/2014 [facility] Weight 210 09/07/2014 [facility] Respitory Rate 14 09/07/2014 [facility] Heart Rate 86 08/19/2014 [place] Systolic (mm Hg) 151 08/19/2014 [place] Diastolic (mm Hg) 88 08/19/2014 [facility] [place] Respitory Rate 18 08/19/2014 [facility] [place] Weight 96.364 08/19/2014 [place] BMI Calculated 34.29 08/19/2014 [facility] [place] Height 167.64 cm 08/19/2014 [place] Systolic (mm Hg) 151 08/19/2014 [place] Diastolic (mm Hg) 83 08/19/2014 [place] Heart Rate 88 08/19/2014 [place] Respitory Rate 18 08/19/2014 [place] Weight 204 09/08/2013 [facility] Temperature Oral (F) 98.0 F 09/08/2013 [facility] Heart Rate 77 09/08/2013 [facility] Systolic (mm Hg) 170 09/08/2013 [facility] Diastolic (mm Hg) 94 09/08/2013 [facility] Weight 91.8 09/07/2013 [facility] Diastolic (mm Hg) 95 09/07/2013 [facility] Systolic (mm Hg) 137 09/07/2013 [facility] Respitory Rate 18 09/07/2013 [facility] Heart Rate 85 09/07/2013 [facility] BMI Calculated 31.95 09/07/2013 [facility] Height 169.5 cm 09/07/2013 [facility] Systolic (mm Hg) 110 08/31/2013 [facility] Diastolic (mm Hg) 74 08/31/2013 [facility] Heart Rate 84 08/31/2013 [facility] Weight 198 08/31/2013 [facility] Height 170.18 cm 08/24/2013 [place] Weight 90 08/24/2013 [place] BMI Calculated 31.08 08/24/2013 [facility] [place] Weight 88 06/23/2013 [place] BMI Calculated 31.31 06/23/2013 [place] Height 167.64 cm 06/23/2013 [place] Respitory Rate 16 06/23/2013 [facility] [place] Systolic (mm Hg) 116 06/23/2013 [facility] Heart Rate 99 06/23/2013 [facility] Diastolic (mm Hg) 67 06/23/2013 [facility] Temperature Oral (F) 97.9 F 05/14/2013 [place] Systolic (mm Hg) 147 05/14/2013 [...] 05/11/2013 [place] Heart Rate 91 05/11/2013 [facility] Respitory Rate 18 05/11/2013 [facility] Systolic (mm Hg) 163 05/11/2013 [facility] Height 167.64 cm 05/11/2013 [facility] Weight 8.636 05/11/2013 [facility] BMI Calculated 3.07 05/11/2013 [facility] Respitory Rate 16 05/09/2013 [facility] Diastolic (mm Hg) 75 05/09/2013 [facility] Systolic (mm Hg) 136 05/09/2013 [facility] Heart Rate 83 05/09/2013 [facility] Heart Rate 83 05/08/2013 [facility] Respitory Rate 18 05/08/2013 [facility] Systolic (mm Hg) 143 05/08/2013 [facility] Diastolic (mm Hg) 81 05/08/2013 [facility] Diastolic (mm Hg) 70 05/08/2013 [facility] Systolic (mm Hg) 126 05/08/2013 [facility] Respitory Rate 18 05/08/2013 [facility] Heart Rate 68 05/08/2013 [facility] Weight 88.636 05/08/2013 [facility] Height 167.64 cm 05/08/2013 [facility] BMI Calculated 31.54 05/08/2013 [facility] Temperature Oral (F) 98.2 F 05/08/2013 [facility] Systolic (mm Hg) 121 09/02/2012 [facility] Diastolic (mm Hg) 71 09/02/2012 [facility] Systolic (mm Hg) 123 09/02/2012 [facility] Diastolic (mm Hg) 73 09/02/2012 [facility] Systolic (mm Hg) 122 09/02/2012 [facility] Diastolic (mm Hg) 71 09/02/2012 [facility] Respitory Rate 16 09/02/2012 [facility] Temperature Oral (F) 97.8 F 09/02/2012 [facility] Height 167.64 cm 09/02/2012 [facility] Weight 90.909 09/02/2012 [facility] Height 167.64 cm 08/18/2012 [facility] Weight 81.818 08/18/2012 [facility] Weight 90.909 06/23/2012 [facility] Height 167.64 cm 06/23/2012 [facility] Weight 202 06/02/2012 [facility] Height 66 06/02/2012 [facility] Temperature Oral (F) 98.4 F 06/02/2012 [facility] Heart Rate 100 06/02/2012 [facility] Systolic (mm Hg) 131 06/02/2012 [facility] Diastolic (mm Hg) 78 06/02/2012 [facility] Diastolic (mm Hg) 84 03/03/2012 [facility] Systolic (mm Hg) 128 03/03/2012 [facility] Respitory Rate 16 03/03/2012 [facility] Heart Rate 63 03/03/2012 [facility] Diastolic (mm Hg) 71 03/03/2012 [facility] Systolic (mm Hg) 111 03/03/2012 [facility] Respitory Rate 5 03/03/2012 [facility] Diastolic (mm Hg) 85 03/03/2012 [facility] Systolic (mm Hg) 135 03/03/2012 [facility] Respitory Rate 16 03/03/2012 [facility] Heart Rate 68 03/03/2012 [facility] Heart Rate 82 03/03/2012 [facility] Height 167.64 cm 02/28/2012 [facility] Weight 98.636 02/28/2012 [facility] Encounters Location Location Encounter Encounter Reason Attending ADM DC Status Source Details Type Number For Provider Date Date Visit Not Sent DS [id number] ALEK 03/03 03/03 Active 1 LEWIS /2011 [facility] [id number] COLETTE 06/23 06/23 Active [facility] 2 RINKLE /2012 [facility] TB [id number] PRE MAMADOU 07/20 Active [facility] 1 TRANSPLA ADROGUE [facility] [id number] [id number] M[facility] 07/20 [place] [facility] 6 ADROGUE [facility] Outpatient [id number] CARDIAC BISWAJIT 08/18 Active [facility] 3 [facility] E/ Center KIDNEY [place]/DR. ARGUELLES [facility] BYRON [id number] BISWAJIT 09/02 09/02 Active [facility] 4 CHELSEY /2012 [facility] TB [id number] LABS MAMADOU 09/30 Active [facility] 3 ADROGUE [facility] Outpatient [id number] LAB KAMLESH MAS 11/23 11/23 Active [facility] Outpatient [id number] LAB KAMLESH TG 12/16 12/16 Active [facility] Medical [facility] Outpatient [id number] LAB KAMLESH TG 01/20 01/20 Active [facility] Medical [facility] Outpatient [id number] LAB KAMLESH TG 02/17 02/17 Active [facility] Medical [facility] Outpatient [id number] LAB KAMLESH TG 03/26 03/26 Active [facility] Medical [facility] Emergency [id number] RANDAL NOLAN 05/08 05/08 Active [facility] EC [id number] _MAPID:E Randal Nolan 05/08 05/09 [facility] [place] [facility] 5 [id number] NCNTRR [facility] [id number] [facility] Emergency [id number] MARTHA 05/11 05/11 Active [facility] 6 [facility] EC [id number] _MAPID:E Martha 05/11 05/12 [place] [facility] 6 [id number] NCNTRRFV [facility] [id number] [facility] OU [id number] [facility]/12 Active [facility] 7 L PAIN [facility] BLE VOMITING WITH FAILED OUTPT [facility] OBS [id number] _MAPID:E Pancho Rose 05/13 05/15 [place] [facility] 7 [id number] NCNTRRFV [facility] Patient [id number] [facility] EC [id number] Aguilar 06/23 06/23 [facility] [place] [facility] 8 Jimenez /2013 [facility] Outpatient [id number] Edward 07/10 07/11 [facility] [place] 9 Reymundo /2013 [facility] OP [id number] Non 08/02 09/01 [facility] [place] Transplant 0 Physician /2013 [facility] Office [id number] Oralia Gao, 08/31 08/31 [place] 28965 /2013 [facility] [address] [facility] OP [id number] Mamadou 09/07 10/07 [place] Transplant 5 Adrogue /2013 [facility] Office [id number] Lyric 09/08 09/08 [place] Visit 49438 MD Javier /2013 [facility] 9305 [facility] Outpatient [id number] Otis 09/10 09/11 [facility] [place] 8 Robertson /2013 [facility] Lab Report [id number] Lyric 02/23 02/23 [place] [address]52 MD Javier /2013 [facility] Outpatient [id number] Clarisa 04/18 04/19 [place] 4 De [facility] EC [id number] Taras 08/19 08/19 [facility] [place] [facility] 1 Wheeler II /2014 [facility] Office [id number] Elmer 09/07 09/07 [place] Visit 99411 MD Lupillo /2014 [facility] OP [id number] Clarisa 09/20 10/20 [place] Transplant 6 De [facility] C[facility] OP [id number] Clarisa 10/18 11/17 [place] Transplant 7 De [facility] Outpatient [id number] Kasi 10/18 10/19 [place] 4 Chelsey /2014 [facility] Advanced Heart Failure [facility] Outpatient [id number] Heather 11/02 11/03 [place] [facility] [id number] Heather 11/08 11/09 [facility] [place] [facility] [id number] Heather 11/08 11/09 [place] 7 Beha [facility] Outpatient [id number] Heather 12/22 12/23 [place] 0 Behazi [facility] Outpatient [id number] Heather 02/08 02/09 [facility] [place] 1 Behazin [facility] Outpatient [id number] Hani Zamil 02/23 02/24 [facility] Bedded [id number] Jourdani Zamil 03/28 03/28 [facility] Outpatient [facility] Outpatient [id number] Clarisa 04/17 04/18 [facility] 3 De Golovi [facility] Outpt Diag [id number] Heather 05/04 05/05 [facility] Outpatient Services 6 [place] [facility] OP [id number] Kamlesh Mas 01/22 02/21 [facility] Transplant [facility] Pre [facility] Outpatient [id number] Alex 01/31 02/01 [facility] 8 [facility] Advanced Heart Failure [facility] [id number] PRE MAMADOU Cancel [place] [address] TRANSPLA [facility] EVAL Center [facility] [id number] PRE MAMADOU Active [facility] 2 CLINIC [facility] Preadmit [id number] RENAL/DO KAMLESH MAS Active [place] [address] NOT USE [facility] FOR Center CHARGES F/C NOTES ONLY OD [id number] 414.00 - MAMADOU Cancel [facility] 1 COR ATH ADROGUE [place] UNSP VS ook Procedures Procedure Code Date Perfomer Comments Source Emergency department [address] [facility] visit for the [address] [place] [address] evaluation and management of a patient, which requires these 3 soto components within the constraints imposed by the urgency of the patient's clinical condition and/or mental status: A comprehensive history; A comprehensi Injection or Infusion 99.29 [facility] of Other Therapeutic [address] [place] [address] Center or Prophylactic Substance Intravenous infusion, 60406 [facility] hydration; each [address] [place] [address] Center additional hour (List separately in addition to code for primary procedure) Therapeutic, [address]12[address] [facility] prophylactic, or [address] [place] [address] diagnostic injection (specify substance or drug); each additional sequential intravenous push of a new substance/drug (List separately in addition to code for primary procedure) Therapeutic, 37137 [facility] prophylactic, or [address] [place] [address] Center diagnostic injection (specify substance or drug); each additional sequential intravenous push of the same substance/drug provided in a facility (List separately in addition to code for primary procedure) Therapeutic, 07602 [facility] prophylactic, or [address] [place] [address] Center diagnostic injection (specify substance or drug); intravenous push, single or initial substance/drug Hemodialysis [id number] [address] Hemodialysis [id number] [address] Hemodialysis [id number] [facility] 3 [place] Cataract surgery [id number] [facility] Arteriovenous shunt [id number] [facility] renal dialysis [facility] Cardiac [id number] [facility] Cataract surgery [id number] [facility] Arteriovenous [id number] 1left upper Greater fistulization<sup>1</ arm [place] sup> Cardiac [id number] [facility] Arteriovenous shunt [id number] [facility] for renal dialysis [place] [facility] [id number] [facility] catheterization [place] Cataract surgery [id number] [facility] [place] Arteriovenous shunt [id number] The for renal dialysis [place] Cataract surgery [id number] [facility]
--- OUTSIDE RECORDS SUMMARY | 2018-04-14 11:56 | XMS REPORT | CCD ---
:1975 Author Organization [facility] Care Team Providers Name Role Phone Evelyn, [...] values reflect the clinical guidelines of the [place] [employer].5Interpretive Data: Adult reference range values reflect the clinical guidelines of the [place] [employer].HEMATOLOGY Most recent to oldest [Reference [...]
--- OUTSIDE RECORDS SUMMARY | 2018-04-14 11:56 | XMS REPORT | CCD ---
:1975 Author Organization [facility] Care Team Providers Name Role Phone Jimmy [...] values reflect the clinical guidelines of the [place] Diabetes Association.HEMATOLOGY Most recent to oldest [Reference [...]
--- OUTSIDE RECORDS SUMMARY | 2018-04-14 11:56 | XMS REPORT | CCD ---
:1975 Author Organization [facility] Outpatient Imaging [facility] Team Providers Name Role Phone Mamadou Sy Consulting Provider Allergies, Adverse Reactions, Alerts Substance Reaction Status NKDA Active Problem List Condition Effective Dates Status Diabetes mellitus Resolved HTN - Hypertension Resolved Renal failure syndrome Resolved
--- OUTSIDE RECORDS SUMMARY | 2018-04-14 11:56 | XMS REPORT | CCD ---
:1975 Author Organization [facility] Care Team Providers Name Role Phone Tal [...]
--- OUTSIDE RECORDS SUMMARY | 2018-04-14 11:56 | XMS REPORT | CCD ---
:1975 Author Organization [facility] Care Team Providers Name Role Phone Kasi [...] values reflect the clinical guidelines of the [place] Diabetes Association.HEMATOLOGY Most recent to oldest [Reference [...]
--- OUTSIDE RECORDS SUMMARY | 2018-04-14 11:56 | XMS REPORT | CCD ---
:1975 Author Organization [facility] Care Team Providers Name Role [...] values reflect the clinical guidelines of the [place] Diabetes Association.3Interpretive Data: Reference range is based on recommendations in the Endocrine Society Clinical Practice Guideline (J Clin Endocrinol Metab 2011;96:8796-4432)4Interpretive Data: HbA1C% eAG(mg/dL) Interpretation 6.0 126 Very good control 6.5 140 Very good control 7.0 154 Good Control 7.5 169 Good Control 8.0 183 Marginal Control, take action to lower 8.5 197 Marginal Control, take action to lower 9.0 212 Poor Control, take action to lower 9.5 226 Poor Control, take action to lower 10.0 240 Poor Control, take action to [id number] Comment: Testing perform by Pvx[facility]qwe0Amulnrnbvhcg Data: Cutoff (lowest detectable by EIA ) values for Serum Drugscreen: THC and PCP: 1 ng/mL All others: 20 ng/mL Cutoff (lowest detectable by GC/MS) value for confirmation: THC and PCP: 1 ng/mL Benzodiazepines: 5 ng/ml All others: 10 ng/ml Test performed by [facility] [address] [place], [place] [address]Lrsucl Comment: Reference Range < xs=800 Low immune cell response 226-524 Moderate immune cell response > tm=071 High immune cell response Test Performed at: [facility] [address] [address] DAGO TORRES M.D.HEMATOLOGY Most recent to oldest [...] - 1.0 S/CO Ratio Reactive: >=1.1 S/CO [id number] Data: Antibody Index (AI) Results Interpretation ------- [...] APL Low-Med Positive > 80 APL Strong Abjybolr01Paskoqrkxfvd Data: Reference Ranges for Ig-14 GPL Negative 15-20 GPL Inconclusive 21-80 GPL Low-Med Positive > 80 GPL Strong [id number] Data: Reference Ranges for IgM: 0-12.4 MPL Negative 12.5-20 MPL Inconclusive 21-80 MPL Low-Med Positive > 80 MPL Strong Htljtvju35Rainyurnxees Data: Antibody Index (AI) Results Interpretation ------- [...] IU/mL. For additional information, please refer to [email or web address] (This link is being provided for informational/ educational purposes only.) Test Performed at: [facility] [address] [address] DAGO TORRES M.D.21Interpretive Data: <=7.4 mIU/ mL--------Negative for Anti-HBs. Not immune to HBV infection. 7.5-12.4 mIU/mL--Borderline for Anti-HBs and immune status should be further assessed by considering other factors such as clinical status follow-up testing, associated risk factors, and the use of additional diagnostic information. >12.4 mIU/mL-------Positive for Anti-HBs. Immune to HBV infection
--- OUTSIDE RECORDS SUMMARY | 2018-04-14 11:56 | XMS REPORT | CCD ---
:1975 Author Organization [facility] Care Team Providers Name Role Phone Mamadou Sy Referring Provider Allergies, Adverse Reactions, Alerts Substance Reaction Status NKDA Active Problem List Condition Effective Dates Status Diabetes mellitus Resolved HTN - Hypertension Resolved Renal failure syndrome Resolved Results CHEMISTRY Most recent to oldest [Reference Range]: 1 C-Peptide [0.48-5.05 ng/mL] 1.30 ng/mL (09/30/2012 08:10:00)
--- OUTSIDE RECORDS SUMMARY | 2018-04-14 11:56 | XMS REPORT | CCD ---
:1975 Author Organization [facility] Care Team Providers Name Role Phone Kasi Wheat Referring Provider Allergies, Adverse Reactions, Alerts Substance Reaction Status NKDA Active Problem List Condition Effective Dates Status Diabetes mellitus Resolved HTN - Hypertension Resolved Renal failure syndrome Resolved
--- OUTSIDE RECORDS SUMMARY | 2018-04-14 11:58 | XMS REPORT | Continuity of Care Document ---
:1975 Author Organization [facility] Care Team Providers Name Role Phone MD Javier, Lyric Unavailable Unavailable Insurance Providers Payer name Policy type / Policy ID Covered democrat ID Policy Laws Coverage type MHEALTH - [facility] EDGE [employer] - [facility] MEDICARE [place]: [employer] - [facility] EDG [employer] - [facility] EDG [employer] - MH[facility] EDG [employer]haus - MHHS EDG [employer]haus - MHHS EDG [employer] - MHHS EDG [employer] - MHHS EDG [employer] - MHHS EDG [employer] - [facility] EDG [employer] - [facility] EDG [employer] - [facility] EDG [employer] - MHEALTH [employer] - [facility] EDG [employer] - [facility] EDG [employer] - [facility] EDG [employer] - [facility] EDG [employer] - [facility] Encounters Encounter Performer Location Date Office Visit Lyric Herrera MD [facility] Sep 08, 2013 9305 Problems Problem [...] SOLOSTAR 100 UNIT/ML 18 units at bedtime nc Dec 06, 2011 Active SOLN LIPITOR 20 [...] 2012Jun 04, platelet count PLATELETS 289 K/CMM 481-437 4052 /mm3 Jun 04, hemoglobin, blood HGB 7.9 g/dL 14.0-18.0 Low 2012Jun 04, hematocrit, blood HCT 23.7 % 42.0-54.0 Low 2012Jun 04, platelet count PLATELETS 289 K/CMM 512-176 6021 /mm3 Oct 23, hemoglobin, blood HGB 13.2 g/dL 14.0-18.0 Low 2012Oct 23, hematocrit, blood HCT 41.5 % 42.0-54.0 Low 2012Oct 23, platelet count PLATELETS 217 K/CMM 753-374 6575 /mm3 Jun 04, hemoglobin A1C, HGBA1C 5.1 % 2012 blood, as % of total hemoglobin Jun 04, cholesterol, serum CHOLESTEROL 292 mg/dl 120-200 High 2012Jun 04, triglyceride, serum, TRIGLYCERIDE 200 mg/dl 0-200 2012 fasting Jun 04, HDL cholesterol, HDL 37 mg/dl >=35 2012Jun 04, LDL cholesterol, LDL 215 mg/dl 0-129 High 2012Jun 04, sodium, serum SODIUM 139 MEQ/L [phone] mmol/L Jun 04, potassium, serum POTASSIUM 4.6 [...] 2011Nov 11, sodium, serum SODIUM 141 MEQ/L [phone] mmol/L Nov 11, potassium, serum POTASSIUM 4.7 [...] 2012Jun 04, sodium, serum SODIUM 139 MEQ/L [phone] mmol/L Jun 04, potassium, serum POTASSIUM 4.6 [...] Oct 23, sodium, serum SODIUM 141 MEQ/L 477-519 1186 mmol/L Oct 23, potassium, serum POTASSIUM 4.5 [...]
--- OUTSIDE RECORDS SUMMARY | 2018-04-14 11:59 | XMS REPORT | Continuity of Care Document ---
:1975 Author Organization [facility] Care Team Providers Name Role Phone MD Murray, Oralia Unavailable Unavailable Insurance Providers Payer name Policy type / Policy ID Covered republican ID Policy Laws Coverage type MHEALTH - [facility] EDGE [employer] - [facility] EDG MEDICARE B-[place]: [employer] - [employer] EDG [employer] - [employer] EDG [employer] - [employer] EDG You[employer] - HS EDG YouT[employer] - HS EDG YouTern - HS EDG YouTern - HS EDG [employer] - HS EDG Encounters Encounter Performer Location Date Office Visit Oralia Gao MD [facility] Aug 31, 2013 [address]iology [address] Problems [...] 2012Jun 04, platelet count PLATELETS 289 K/CMM 434-102 1867 /mm3 Jun 04, hemoglobin, blood HGB 7.9 g/dL 14.0-18.0 Low 2012Jun 04, hematocrit, blood HCT 23.7 % 42.0-54.0 Low 2012Jun 04, platelet count PLATELETS 289 K/CMM 572-610 1984 /mm3 Oct 23, hemoglobin, blood HGB 13.2 g/dL 14.0-18.0 Low 2012Oct 23, hematocrit, blood HCT 41.5 % 42.0-54.0 Low 2012Oct 23, platelet count PLATELETS 217 K/CMM 070-604 6458 /mm3 Jun 04, hemoglobin A1C, HGBA1C 5.1 % 2012 blood, as % of total hemoglobin Jun 04, cholesterol, serum CHOLESTEROL 292 mg/dl 120-200 High 2012Jun 04, triglyceride, serum, TRIGLYCERIDE 200 mg/dl 0-200 2012 fasting Jun 04, HDL cholesterol, HDL 37 mg/dl >=35 2012Jun 04, LDL cholesterol, LDL 215 mg/dl 0-129 High 2012Jun 04, sodium, serum SODIUM 139 MEQ/L 859-954 1210 mmol/L Jun 04, potassium, serum POTASSIUM 4.6 [...] 2011Nov 11, sodium, serum SODIUM 141 MEQ/L 352-759 4647 mmol/L Nov 11, potassium, serum POTASSIUM 4.7 [...] 2012Jun 04, sodium, serum SODIUM 139 MEQ/L 582-538 1976 mmol/L Jun 04, potassium, serum POTASSIUM 4.6 [...] Oct 23, sodium, serum SODIUM 141 MEQ/L [phone] mmol/L Oct 23, potassium, serum POTASSIUM 4.5 [...]
--- OUTSIDE RECORDS SUMMARY | 2018-04-14 11:59 | XMS REPORT | Continuity of Care Document ---
:1975 [facility] Team Providers Name Role Phone MD Javier, Lyric Unavailable Unavailable Insurance Providers Payer name Policy type / Policy ID Covered republican ID Policy Laws Coverage type MHEALTH - [facility] EDGE [employer] - [facility] MEDICARE [place]: NOVITAS [employer] - [facility] [employer] - [facility] [employer] - [facility] EDG [employer] - [facility] EDG [employer] - [facility] EDG [employer] - [facility] EDG [employer] - [facility] EDG [employer] - MHHS EDG [employer] - MHHS EDG [employer] - [facility] EDG [employer] - [facility] EDG [employer] - MHEALTH [employer] - [facility] EDG [employer] - [facility] EDG [employer] - [facility] EDG [employer] - [facility] EDG [employer] - [facility]G Encounters Encounter Performer Location Date Lab Report Lyric Herrera MD [facility] [place] Feb 23, 2014 Problems Problem Effective Dates [...] 2012Jun 04, platelet count PLATELETS 289 K/CMM 575-269 9297 /mm3 Jun 04, hemoglobin, blood HGB 7.9 g/dL 14.0-18.0 Low 2012Jun 04, hematocrit, blood HCT 23.7 % 42.0-54.0 Low 2012Jun 04, platelet count PLATELETS 289 K/CMM 341-256 8027 /mm3 Oct 23, hemoglobin, blood HGB 13.2 g/dL 14.0-18.0 Low 2012Oct 23, hematocrit, blood HCT 41.5 % 42.0-54.0 Low 2012Oct 23, platelet count PLATELETS 217 K/CMM 232-355 0819 /mm3 Jun 04, hemoglobin A1C, HGBA1C 5.1 % 2012 blood, as % of total hemoglobin Jun 04, cholesterol, serum CHOLESTEROL 292 mg/dl 120-200 High 2012Jun 04, triglyceride, serum, TRIGLYCERIDE 200 mg/dl 0-200 2012 fasting Jun 04, HDL cholesterol, HDL 37 mg/dl >=35 2012 serum Jun 04, LDL cholesterol, LDL 215 mg/dl 0-129 High 2012 serum Jun 04, sodium, serum SODIUM 139 MEQ/L 212-308 8244 mmol/L Jun 04, potassium, serum POTASSIUM 4.6 [...] 2011Nov 11, sodium, serum SODIUM 141 MEQ/L 462-980 5657 mmol/L Nov 11, potassium, serum POTASSIUM 4.7 [...] Jun 04, sodium, serum SODIUM 139 MEQ/L 061-498 0909 mmol/L Jun 04, potassium, serum POTASSIUM 4.6 [...] Oct 23, sodium, serum SODIUM 141 MEQ/L 146-697 8322 mmol/L Oct 23, potassium, serum POTASSIUM 4.5 [...]
--- OUTSIDE RECORDS SUMMARY | 2018-04-14 11:59 | XMS REPORT | Continuity of Care Document ---
:1975 Author Organization [facility] Care Team Providers Name Role Phone MD Lupillo, Elmer Unavailable Unavailable Insurance Providers Payer name Policy type / Policy ID Covered alliance party ID Policy Laws Coverage type MHEALTH - [facility] EDGE [employer] - [facility] EDG MEDICARE B-[place]: NOVITAS [employer] - [facility] EDG [employer] - [facility] EDG [employer] - [facility] EDG [employer] - [facility] EDG [employer] - [facility] EDG [employer] - [facility] EDG [employer] - MHHS EDG [employer] - MHHS EDG [employer] - MHHS EDG [employer] - MHHS EDG [employer] - MHHS EDG [employer] - MHEALTH [employer] - MHHS EDG [employer] - MHHS EDG [employer] - MHHS EDG [employer] - [facility] EDG [employer] - [facility] EDG [employer] - MHEALTH [employer] - [facility] EDG [employer] - [facility] EDG [employer] - [facility]G Encounters Encounter Performer Location Date Office Visit Elmer Wesley MD [facility] Sep 07, 2014 Problems Problem Effective Dates [...] SOLOSTAR 100 UNIT/ML 18 units at bedtime me Dec 06, 2011 Active SOLN ACCU-CHEK FERNANDA [...] 2012Jun 04, platelet count PLATELETS 289 K/CMM 668-239 0708 /mm3 Jun 04, hemoglobin, blood HGB 7.9 g/dL 14.0-18.0 Low 2012Jun 04, hematocrit, blood HCT 23.7 % 42.0-54.0 Low 2012Jun 04, platelet count PLATELETS 289 K/CMM 387-615 5456 /mm3 Oct 23, hemoglobin, blood HGB 13.2 g/dL 14.0-18.0 Low 2012Oct 23, hematocrit, blood HCT 41.5 % 42.0-54.0 Low 2012Oct 23, platelet count PLATELETS 217 K/CMM 624-289 4473 /mm3 Jun 04, hemoglobin A1C, HGBA1C 5.1 % 2012 blood, as % of total hemoglobin Jun 04, cholesterol, serum CHOLESTEROL 292 mg/dl 120-200 High 2012Jun 04, triglyceride, serum, TRIGLYCERIDE 200 mg/dl 0-200 2012 fasting Jun 04, HDL cholesterol, HDL 37 mg/dl >=35 2012 serum Jun 04, LDL cholesterol, LDL 215 mg/dl 0-129 High 2012 serum Jun 04, sodium, serum SODIUM 139 MEQ/L 874-037 8527 mmol/L Jun 04, potassium, serum POTASSIUM 4.6 [...] 2011Nov 11, sodium, serum SODIUM 141 MEQ/L [phone] mmol/L Nov 11, potassium, serum POTASSIUM 4.7 [...] 2012Jun 04, sodium, serum SODIUM 139 MEQ/L 361-708 8254 mmol/L Jun 04, potassium, serum POTASSIUM 4.6 [...] Oct 23, sodium, serum SODIUM 141 MEQ/L 349-621 5356 mmol/L Oct 23, potassium, serum POTASSIUM 4.5 [...]
--- OUTSIDE RECORDS SUMMARY | 2018-04-14 11:59 | XMS REPORT ---
:1975 [facility] [address] [place] [address] Dr. Leon [address] [place] [address] Care Team Providers Name Role Phone Unavailable Unavailable Unavailable Problems This patient has no known problems. Allergies, Adverse Reactions, Alerts This patient has no known allergies or adverse reactions. Medications This patient has no known medications.
[2018-04-14] MEDS ORDERED: MAGNE/ALUM HYDROXD 30 ML UCUP ONE (12:26)
[2018-04-14] MEDS ORDERED: NA CHLORIDE 0.9% 1,000 ML ONE (12:27)
[2018-04-14] MEDS ORDERED: MORPHINE 4 MG/ML SYR ONE (12:27)
[2018-04-14] MEDS ORDERED: ONDANSETRON 4 MG/2 ML VIAL ONE (12:27)
[2018-04-14] MEDS ORDERED: LIDOCAINE VISCOUS 2% SOLN 15 ML UDC ONE (12:27)
[2018-04-14] MEDS ORDERED: FAMOTIDINE 20 MG/2 ML VIAL IV ONE (12:27)
[2018-04-14 12:28] LABS: Absolute Lymphocytes (CBC) 0.5 K/uL (0.7-4.9); Absolute Monocytes 0.5 K/uL (0.1-1.3); Absolute Neutrophil 6.3 K/uL (1.8-8.0); Basophils % 0.6 % (0-1.3); Eosinophils % 3.3 % (0-4.4); Hematocrit 28.2 % (39.6-49.0); Lymphocytes % 6.8 % (15.3-44.8); MPV 6.8 fL (7.6-11.3); RBC Red Blood Cell Count 3.35 M/uL (4.33-5.43)
[2018-04-14 13:06] LABS: Albumin 3.1 g/dL (3.4-5.0); Bilirubin Direct 0.3 mg/dL (0-0.2); Bilirubin Total 0.7 mg/dL (0.2-1.0); Potassium 4.1 mmol/L (3.5-5.1)
--- NOTE | 2018-04-14 13:33 | EDPHYS ---
Physician Documentation [facility] Name: Chase Chacon Jr Age: 42 yrs Sex: Male : 1975 Arrival Date: 04/14/2018 Time: 11:39 Bed 7 Private MD: Kyler Ogden ED Physician Yue Cortes HPI: 04/14 12:09 This 42 yrs old Male presents to ER via Ambulatory with complaints of ma2 Abdominal Pain, Vomiting. 12:09 The patient presents to the emergency department with nausea, abdominal pain, of the ma2 epigastric area. Onset: The symptoms/episode began/occurred gradually, 2 day(s) ago. Possible causes: unknown. Associated signs and symptoms: Pertinent positives: abdominal pain, Pertinent negatives: constipation, fever, flatulence, hematuria, nausea. Severity of symptoms: At their worst the symptoms were moderate in the emergency department the symptoms are unchanged. The patient has experienced similar episodes in the past. Historical: - Allergies: 11:50 No Known Allergies; ss - PMHx: 11:50 Diabetes - NIDDM; ESRD; Gastroparesis; Hypertension; kidney disease; ss - PSHx: 11:50 cataracts; ss - Immunization history:: Adult Immunizations up to date. - Social history:: Smoking status: Patient/guardian denies using tobacco, Patient/guardian denies using alcohol, street drugs, The patient lives with family. - Ebola Screening: : Patient denies exposure to infectious person Patient denies travel to an Ebola-affected area in the 21 days before illness onset. - Family history:: not pertinent. - Hospitalizations: : No recent hospitalization is reported. ROS: 12:09 Constitutional: Negative for fever, chills, and weight loss, Eyes: Negative for injury, ma2 pain, redness, and discharge, Cardiovascular: Negative for chest pain, palpitations, and edema, Respiratory: Negative for shortness of breath, cough, wheezing, and pleuritic chest pain, Abdomen/GI: Negative for abdominal pain, nausea, diarrhea, and constipation. 12:09 Abdomen/GI: Positive for abdominal pain, nausea, vomiting, Negative for diarrhea, abdominal cramps, abdominal distension, anorexia, black/tarry stool, rectal pain. 12:09 All other systems are negative. Exam: 12:09 Constitutional: This is a well developed, well nourished patient who is awake, alert, ma2 and in no acute distress. Chest/axilla: Normal chest wall appearance and motion. Nontender with no deformity. No lesions are appreciated. Cardiovascular: Regular rate and rhythm with a normal S1 and S2. No gallops, murmurs, or rubs. Normal PMI, no JVD. No pulse deficits. Respiratory: Lungs have equal breath sounds bilaterally, clear to auscultation and percussion. No rales, rhonchi or wheezes noted. No increased work of breathing, no retractions or nasal flaring. Abdomen/GI: Soft, non-tender, with normal bowel sounds. No distension or tympany. No guarding or rebound. No evidence of tenderness throughout. MS/ Extremity: Pulses equal, no cyanosis. Neurovascular intact. Full, normal range of motion. Vital Signs: 11:50 BP 204 / 103; Pulse 94; Resp 18; Temp 98.0(TE); Pulse Ox 74% on R/A; Weight 92.99 kg; ss Height 5 ft. 6 in. (167.64 cm); Pain 8/10; 12:01 BP 214 / 104; Pulse 92; Resp 29; Pulse Ox 100% on 15% Non-rebreather mask; aj 12:52 BP 205 / 104; Pulse 78; Resp 20; Pulse Ox 100% on 15% Non-rebreather mask; aj 13:46 BP 202 / 105; Pulse 91; Resp 27; Pulse Ox 85% on R/A; aj 11:50 Body Mass Index 33.09 (92.99 kg, 167.64 cm) MDM: 11:53 Patient medically screened. ma2 12:09 Differential diagnosis: gastritis, pancreatitis, viral gastroenteritis, gastroenteritis.ma2 13:26 Data reviewed: vital signs, nurses notes, lab test result(s), EKG, radiologic studies. ma2 Counseling: I had a detailed discussion with the patient and/or guardian regarding: the historical points, exam findings, and any diagnostic results supporting the discharge/admit diagnosis, the presence of at least one elevated blood pressure reading (>120/80) during this emergency department visit, the need for outpatient follow up. Response to treatment: the patient's symptoms have resolved after treatment. 04/14 12:00 Order name: Basic Metabolic Panel; Complete Time: 13:21 ma2 04/14 12:00 Order name: CBC with Diff [facility] 04/14 12:00 Order name: Creatinine for Radiology; Complete Time: 13:21 [facility] 04/14 12:00 Order name: Hepatic Function; Complete Time: 13:21 [facility] 04/14 12:00 Order name: Lipase; Complete Time: 13:21 [facility] 04/14 12:40 Order name: CBC Smear Scan [facility] 04/14 12:00 Order name: IV Saline Lock; Complete Time: 12:27 [facility] 04/14 12:00 Order name: Labs collected and sent; Complete Time: 12: ri2 Administered Medications: 12:24 Drug: GI Cocktail without - (Maalox Suspension 30 ml, Lidocaine Liquid 2 % 15 aj ml) Route: PO; 12:57 Follow up: Response: Pain is decreased aj 12:25 Drug: Pepcid 20 mg Route: IVP; Site: right wrist; aj 12:58 Follow up: Response: Pain is decreased aj 12:25 Drug: morphine 4 mg Route: IVP; Site: right wrist; aj 12:57 Follow up: Response: Pain is decreased aj 12:26 Drug: Zofran 4 mg Route: IVP; Site: right wrist; aj 12:58 Follow up: Response: Pain is decreased aj 12:26 Drug: NS 0.9% 1000 ml Route: IV; Rate: 1 bolus; Site: right wrist; aj Disposition: 04/14/18 13:32 Discharged to Home. Impression: Generalized abdominal pain. - Condition is Stable. - Discharge Instructions: Abdominal Pain, Adult. - Prescriptions for Zofran 4 mg Oral Tablet - take 1 tablet by ORAL route every 12 hours As needed; 20 tablet. Zofran 4 mg/5 mL Oral Solution - take 2.5 milliliter by ORAL route every 6 hours As needed; 40 milliliter. Pepcid 20 mg Oral Tablet - take 1 tablet by ORAL route once daily for 10 days; 10 tablet. - Medication Reconciliation Form, Thank You Letter, Antibiotic Education, Prescription Opioid Use form. - Follow up: Private Physician; When: Tomorrow; Reason: Continuance of care. Signatures: Dispatcher [employer] Alicia Liao RN RN aj Smirch, Shelby, RN RN ss Alzahri, Mohammad, MD MD ri2 Corrections: (The following items were deleted from the chart) 13:48 13:32 04/14/2018 13:32 Discharged to Home. Impression: Generalized abdominal pain. aj Condition is Stable. Forms are Medication Reconciliation Form, Thank You Letter, Antibiotic Education, Prescription Opioid Use. Follow up: Private Physician; When: Tomorrow; Reason: Continuance of care. ma2
--- NOTE | 2018-04-14 13:33 | ER ---
Nurse's Notes [facility] Name: Chase Chacon Jr Age: 42 yrs Sex: Male : 1975 Arrival Date: 04/14/2018 Time: 11:39 Bed 7 Private MD: Kyler Ogden Diagnosis: Generalized abdominal pain Presentation: 04/14 11:48 Presenting complaint: Patient states: N/V/D and abd pain that began 2 weeks ago. Pt is ss unable to hold down daily medications. Transition of care: patient was not received from another setting of care. Onset of symptoms was March 31, 2018. Risk Assessment: Do you want to hurt yourself or someone else? Patient reports no desire to harm self or others. Initial Sepsis Screen: Does the patient meet any 2 criteria? HR > 90 bpm. Does the patient have a suspected source of infection? No. Patient's initial sepsis screen is negative. Care prior to arrival: None. 11:48 Method Of Arrival: Ambulatory ss 11:48 Acuity: LEON 2 ss Historical: - Allergies: 11:50 No Known Allergies; ss - PMHx: 11:50 Diabetes - NIDDM; ESRD; Gastroparesis; Hypertension; kidney disease; ss - PSHx: 11:50 cataracts; ss - Immunization history:: Adult Immunizations up to date. - Social history:: Smoking status: Patient/guardian denies using tobacco, Patient/guardian denies using alcohol, street drugs, The patient lives with family. - Ebola Screening: : Patient denies exposure to infectious person Patient denies travel to an Ebola-affected area in the 21 days before illness onset. - Family history:: not pertinent. - Hospitalizations: : No recent hospitalization is reported. Screenin:01 Abuse screen: Denies threats or abuse. Denies injuries from another. Nutritional aj screening: No deficits noted. Tuberculosis screening: No symptoms or risk factors identified. Fall Risk None identified. Assessment: 12:01 General: Appears distressed, uncomfortable, Behavior is cooperative, anxious. Pain: aj Complains of pain in abdomen. Cardiovascular: Reports nausea, shortness of breath, Capillary refill < 3 seconds in bilateral fingers Patient's skin is warm and dry. Cardiovascular: Dialysis shunt: in the left bicep. Respiratory: Airway is patent Respiratory effort is even, labored, Respiratory pattern is tachypnea. GI: Abdomen is non-distended, obese, Bowel sounds present X 4 quads. Abd is soft and non tender X 4 quads. Reports upper abdominal pain, nausea, vomiting. Derm: Skin is intact, is healthy with good turgor, Skin is pink, warm \T\ dry. normal. Vital Signs: 11:50 BP 204 / 103; Pulse 94; Resp 18; Temp 98.0(TE); Pulse Ox 74% on R/A; Weight 92.99 kg; ss Height 5 ft. 6 in. (167.64 cm); Pain 8/10; 12:01 BP 214 / 104; Pulse 92; Resp 29; Pulse Ox 100% on 15% Non-rebreather mask; aj 12:52 BP 205 / 104; Pulse 78; Resp 20; Pulse Ox 100% on 15% Non-rebreather mask; aj 13:46 BP 202 / 105; Pulse 91; Resp 27; Pulse Ox 85% on R/A; aj 11:50 Body Mass Index 33.09 (92.99 kg, 167.64 cm) ED Course: 11:39 Patient arrived in ED. rg4 11:39 Kyler Ogden MD is Private Physician. rg4 11:48 Triage completed. ss 11:50 Arm band placed on right wrist. ss 11:54 Yue Cortes MD is Attending Physician. ma2 12:00 Alicia Win, JENNIE is Primary Nurse. aj 12:01 Patient has correct armband on for positive identification. floral department specialist on. Pulse aj ox on. NIBP on. 12:01 Oxygen administration via non-rebreather mask \T\ 15L/min. aj 12:13 Missed attempt(s): 20 gauge in right forearm. 22 gauge in right forearm. Bleeding aj controlled, band aid applied, catheter tip intact. 12:26 Initial lab(s) drawn, by ms, sent to lab. Inserted saline lock: 22 gauge in right jl7 wrist, using aseptic technique. Blood collected. 13:30 Notified ED physician of vital signs. aj 13:40 Notified ED physician of other concerns regarding discharging patient with low SP02 sat.aj 13:46 No provider procedures requiring assistance completed. IV discontinued, intact, aj bleeding controlled, No redness/swelling at site. Pressure dressing applied. Administered Medications: 12:24 Drug: GI Cocktail without - (Maalox Suspension 30 ml, Lidocaine Liquid 2 % 15 aj ml) Route: PO; 12:57 Follow up: Response: Pain is decreased aj 12: Drug: Pepcid 20 mg Route: IVP; Site: right wrist; aj 12:58 Follow up: Response: Pain is decreased aj 12: Drug: morphine 4 mg Route: IVP; Site: right wrist; aj 12:57 Follow up: Response: Pain is decreased aj 12: Drug: Zofran 4 mg Route: IVP; Site: right wrist; aj 12:58 Follow up: Response: Pain is decreased aj 12: Drug: NS 0.9% 1000 ml Route: IV; Rate: 1 bolus; Site: right wrist; aj Outcome: 13:32 Discharge ordered by MD. boogie 13:46 Discharged to home ambulatory, with family. aj 13:46 Condition: good 13:46 Discharge instructions given to patient, family, Instructed on discharge instructions, follow up and referral plans. medication usage, Demonstrated understanding of instructions, follow-up care, medications, Prescriptions given X 3. 13:48 Patient left the ED. aj Signatures: Alicia Win RN RN Leanne Cotter, RN RN Lizzie Zuniga rg4 Jj Saba RN RN jl7 Yue Cortes MD MD ma2 Corrections: (The following items were deleted from the chart) 12: 12:25 NS 0.9% 1000 ml IV at 1 bolus in right hand aj aj 12:27 12:01 BP 214 / 104; Pulse 92bpm; Resp 15bpm; Pulse Ox 100% 02 15% Non-rebreather mask; aj aj 12:54 12:52 BP 205 / 104; Pulse 78bpm; Resp 20bpm; Pulse Ox 100% RA; aj aj
[2018-04-14 14:34] LABS: Anisocytosis 3+; Blood Morphology Comment NOTED (NOT SEEN); Hypochromasia 2+; Platelet Estimate ADEQ; Poikilocytosis 1+; Polychromasia 1+; Urine White Blood Cell Casts OK
== END 2018-04-14 13:48 | disposition home or self-care (01) ==
LOC: ER 11:38
DX: R10.13 Epigastric pain (principal); R11.0 Nausea; E11.9 Type 2 diabetes mellitus without complications; I10 Essential (primary) hypertension; N28.9 Disorder of kidney and ureter, unspecified
CPT/HCPCS: 36415; 80048; 80076; 83690; 85025; 96374; 96375; 99285; J2405; J7030

== ENCOUNTER 2018-06-25 13:42 | Emergency (ER) | payer OTHER ==
--- OUTSIDE RECORDS SUMMARY | 2018-06-25 13:46 | XMS REPORT | Clinical Summary ---
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
--- OUTSIDE RECORDS SUMMARY | 2018-06-25 13:47 | XMS REPORT | Continuity of Care Document ---
:1975 Author Organization [facility] Care Team Providers Name Role Phone MD Javier, Lyric Unavailable Unavailable Insurance Providers Payer name Policy type / Policy ID Covered democrat ID Policy Laws Coverage type [employer] - [facility] [employer] - [facility] MEDICARE B-[place]: [id number] - [facility] [employer] - [facility] [employer] - [facility] [employer] - [facility] [employer] - [facility] [employer] [facility] [employer] [facility] [employer] [facility] [employer] [facility] [employer] [facility] [employer] [facility] [employer] - [facility] [employer] - [facility] [employer] - [facility] [employer] - [facility] [employer] - [facility] [employer] - [facility] Encounters Encounter Performer Location Date Office Visit Lyric Herrera MD [facility] Sep 08, 2013 9305 Problems Problem Effective [...] SOLOSTAR 100 UNIT/ML 18 units at bedtime ne Dec 06, 2011 Active SOLN LIPITOR 20 [...] 2012Jun 04, platelet count PLATELETS 289 K/CMM [phone] /mm3 Jun 04, hemoglobin, blood HGB 7.9 g/dL 14.0-18.0 Low 2012Jun 04, hematocrit, blood HCT 23.7 % 42.0-54.0 Low 2012Jun 04, platelet count PLATELETS 289 K/CMM 231-415 5312 /mm3 Oct 23, hemoglobin, blood HGB 13.2 g/dL 14.0-18.0 Low 2012Oct 23, hematocrit, blood HCT 41.5 % 42.0-54.0 Low 2012Oct 23, platelet count PLATELETS 217 K/CMM [phone] /mm3 Jun 04, hemoglobin A1C, HGBA1C 5.1 % 2012 blood, as % of total hemoglobin Jun 04, cholesterol, serum CHOLESTEROL 292 mg/dl 120-200 High 2012Jun 04, triglyceride, serum, TRIGLYCERIDE 200 mg/dl 0-200 2012 fasting Jun 04, HDL cholesterol, HDL 37 mg/dl >=35 2012Jun 04, LDL cholesterol, LDL 215 mg/dl 0-129 High 2012Jun 04, sodium, serum SODIUM 139 MEQ/L [phone] mmol/L Jun 04, potassium, serum POTASSIUM 4.6 [...] 2011Nov 11, sodium, serum SODIUM 141 MEQ/L [phone] mmol/L Nov 11, potassium, serum POTASSIUM 4.7 [...] 2012Jun 04, sodium, serum SODIUM 139 MEQ/L 111-614 1716 mmol/L Jun 04, potassium, serum POTASSIUM 4.6 [...] Oct 23, sodium, serum SODIUM 141 MEQ/L 418-032 5791 mmol/L Oct 23, potassium, serum POTASSIUM 4.5 [...]
--- OUTSIDE RECORDS SUMMARY | 2018-06-25 13:47 | XMS REPORT | Continuity of Care Document ---
:1975 Author Organization Interface Problems Problem Status Onset Classification Date Comments Source Date Reported GASTROPARESIS Active 09/08/19 Condition 09/07/2014 Medical 15 Group ERECTILE Active 09/08/19 Condition 09/07/2014 Medical DYSFUNCTION 15 Group PHYSICAL Active 09/08/19 Condition 09/07/2014 Medical EXAMINATION 15 Group PHYSICAL EXAM Inactive 09/09/19 Condition 09/07/2014 Medical 14 Group HYPERLIPIDEMIA - Active 09/01/19 Condition 09/07/2014 Medical MIXED 14 Group PRE-OP CV EXAM Active 09/01/19 Condition 09/07/2014 Medical 14 Group RENAL FAILURE, Active 06/06/19 Condition 09/07/2014 Medical CHRONIC 13 Group ANEMIA IN CHRONIC Active 06/06/19 Condition 09/07/2014 Medical KIDNEY DISEASE 13 Group DIAB W/O COMP Active 06/03/19 Condition 09/07/2014 Medical TYPE II/UNS NOT 13 Group 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 06/03/19 Condition 09/07/2014 Medical MANIFESTS TYPE 13 Group II/UNS NOT UNCNTRL COUGH Active 06/03/19 Condition 09/07/2014 Medical 13 Group DIABETIC Active 03/11/20 Condition 09/07/2014 Medical RETINOPATHY 12 Group HYPERTENSION Active 03/11/20 Condition 09/07/2014 Medical 12 Group Medications Medication Details Route Status Patient Ordering Order Source Instructions Provider Date CALCIUM one cap tid Active ACETATE 667 with meals 015 Medical MG CAPS Group BD INSULIN use as Active SYRINGE directed 014 Medical HALF-UNIT 31G Group X 5/16" 0.3 ML MISC BD PEN NEEDLE use as Active SHORT U/F 31G directed 014 Medical X 8 MM MISC Group APIDRA 100 inject No Longer UNIT/ML SOLN 10units in Active 014 Medical the am, Group 15units at lunch,and 10 units in the evening BD PEN NEEDLE use as Active MH SHORT U/F 31G directed 014 Medical X 8 MM MISC Group NOVOLOG 100 inject Active MH UNIT/ML SOLN 10-15units 013 Medical tid with Group meals sc NOVOLOG 100 inject Active MH UNIT/ML SOLN 10-15units 013 Medical tid with Group meals sc ZITHROMAX Take 2 tab po No Longer MH Z-COLLEEN 250 MG qd for first Active 013 Medical TABS day then 1 Group tab po qd thereafter REGLAN 10 MG 1 po qd prn No Longer MH TABS Active 012 Medical Group ACCU-CHEK Test 3 times Active MH FERNANDA STRP a day. 012 Medical Group LANTUS 18 units at Active MH SOLOSTAR 100 bedtime sc 012 Medical UNIT/ML SOLN Group APIDRA 100 10 -15 units No Longer MH UNIT/ML SOLN tid with Active 012 Medical meals Group REGLAN 10 MG prn No Longer MH TABS Active 012 Medical Group LIPITOR 20 MG 1 po qd No Longer MH TABS Active 012 Medical Group LISINOPRIL 30 1 tablet Active MH MG TABS orally twice 012 Medical a week on Group Friday and LANTUS 18 units at Active SOLOSTAR 100 bedtime sc 012 Medical UNIT/ML SOLN Group LIPITOR 20 MG 1 po qd Active MH TABS 012 Medical Group LISINOPRIL 30 1 po qd Active MH MG TABS 012 Medical Group Allergies, Adverse Reactions, Alerts Substance Category Reaction Severity Reaction Status Date Comments Source type Reported Immunizations Immunization Date Given Site Status Last Updated Comments Source Results Order Name Results Value Reference Date Interpretation Comments Source Range Chemistry HGBA1C 7.3 % - 5.6 2012 Medical Group Chemistry CHOLESTEROL 178 - 199 mg/dl 2012 Medical Group Chemistry TRIGLYCERIDE 129 - 149 mg/dl 2012 Medical Group Chemistry HDL 40 >=61 mg/dl 2012 Medical Group Chemistry LDL 112 - 99 mg/dl 2012 Medical Group Chemistry SODIUM 141 135 - 145 MEQ/L 2013 Medical mmol/L Group Chemistry POTASSIUM 4.5 3.5 - 5.1 MEQ/L 2012 Medical mmol/L Group Chemistry CREATININE 6.4 0.5 - 1.4 mg/dL 2012 Medical Group Chemistry BUN 57 7 - 22 mg/dL 2012 Medical Group Chemistry BUN/CREAT 9 6 - 25 2012 Medical Group Chemistry ALBUMIN 3.6 3.5 - 5.0 g/dL 2012 Medical Group Chemistry CALCIUM 9.0 8.5 - 10.5 mg/dL 2012 Medical Group Chemistry SGPT (ALT) 21 U/L 0 - 65 2012 Medical Group Chemistry SGOT (AST) 9 U/L 0 - 37 2012 Medical Group Chemistry ALK PHOS 67 U/L 39 - 136 2012 Medical Group Hematology HGB 13.2 14.0 - 18.0 g/dL 2012 Medical Group Hematology HCT 41.5 % 42.0 - 54.0 2012 Medical Group Hematology PLATELETS 217 133 - 450 K/CMM 2012 Medical /mm3 Group Chemistry HGBA1C 5.1 % 2012 Medical Group Chemistry CHOLESTEROL 292 120 - 200 mg/dl 2012 Medical Group Chemistry TRIGLYCERIDE 200 0 - 200 mg/dl 2012 Medical Group Chemistry HDL 37 >=35 mg/dl 2012 Medical Group Chemistry LDL 215 0 - 129 mg/dl 2012 Medical Group Chemistry SODIUM 139 135 - 145 MEQ/L 2012 Medical mmol/L Group Chemistry POTASSIUM 4.6 3.5 - 5.1 MEQ/L 2012 Medical mmol/L Group Chemistry CREATININE 7.4 0.5 - 1.4 mg/dL 2012 Medical Group Chemistry BUN 53 7 - 22 mg/dL 2012 Medical Group Chemistry BUN/CREAT 7 6 - 25 2012 Medical Group Chemistry ALBUMIN 2.2 3.5 - 5.0 g/dL 2012 Medical Group Chemistry CALCIUM 7.2 8.5 - 10.5 mg/dL 2012 Medical Group Chemistry SGPT (ALT) 24 U/L 0 - 65 2012 Medical Group Chemistry SGOT (AST) 27 U/L 0 - 37 2012 Medical Group Chemistry ALK PHOS 66 U/L 39 - 136 2012 Medical Group Chemistry HGBA1C 5.1 % 2012 Medical Group Chemistry CHOLESTEROL 292 120 - 200 mg/dl 2012 Medical Group Chemistry TRIGLYCERIDE 200 0 - 200 mg/dl 2012 Medical Group Chemistry HDL 37 >=35 mg/dl 2012 Medical Group Chemistry LDL 215 0 - 129 mg/dl 2012 Medical Group Chemistry SODIUM 139 135 - 145 MEQ/L 2012 Medical mmol/L Group Chemistry POTASSIUM 4.6 3.5 - 5.1 MEQ/L 2012 Medical mmol/L Group Chemistry CREATININE 7.4 0.5 - 1.4 mg/dL 2012 Medical Group Chemistry BUN 53 7 - 22 mg/dL 2012 Medical Group Chemistry BUN/CREAT 7 6 - 25 2012 Medical Group Chemistry ALBUMIN 2.2 3.5 - 5.0 g/dL 2012 Medical Group Chemistry CALCIUM 7.2 8.5 - 10.5 mg/dL 2012 Medical Group Chemistry SGPT (ALT) 24 U/L 0 - 65 2012 Medical Group Chemistry SGOT (AST) 27 U/L 0 - 37 2012 Medical Group Chemistry ALK PHOS 66 U/L 39 - 136 2012 Medical Group Hematology HGB 7.9 14.0 - 18.0 g/dL 2012 Medical Group Hematology HCT 23.7 % 42.0 - 54.0 2012 Medical Group Hematology PLATELETS 289 133 - 450 K/CMM 2012 Medical /mm3 Group Hematology HGB 7.9 14.0 - 18.0 g/dL 2012 Medical Group Hematology HCT 23.7 % 42.0 - 54.0 2012 Medical Group Hematology PLATELETS 289 133 - 450 K/CMM 2012 Medical /mm3 Group Chemistry HGBA1C 6.9 % 2012 Medical Group Chemistry TSH 1.420 0.360 - uIU/mL 3.740 2011 Medical Group Chemistry CHOLESTEROL 327 120 - 200 mg/dl 2011 Medical Group Chemistry TRIGLYCERIDE 155 0 - 200 mg/dl 2011 Medical Group Chemistry HDL 54 >=35 mg/dl 2011 Medical Group Chemistry LDL 242 0 - 129 mg/dl 2011 Medical Group Chemistry SODIUM 141 135 - 145 MEQ/L 2011 Medical mmol/L Group Chemistry POTASSIUM 4.7 3.5 - 5.1 MEQ/L 2011 Medical mmol/L Group Chemistry CREATININE 4.9 0.5 - 1.4 mg/dL 2011 Medical Group Chemistry BUN 63 7 - 22 mg/dL 2011 Medical Group Chemistry BUN/CREAT 13 6 - 25 2011 Medical Group Chemistry ALBUMIN 1.8 3.5 - 5.0 g/dL 2011 Medical Group Chemistry CALCIUM 7.6 8.5 - 10.5 mg/dL 2011 Medical Group Chemistry SGPT (ALT) 17 U/L 0 - 65 2011 Medical Group Chemistry SGOT (AST) 14 U/L 0 - 37 2011 Medical Group Chemistry ALK PHOS 68 U/L 39 - 136 2011 Medical Group Vital Signs Vital Sign Value Date Comments Source Systolic (mm Hg) 168 09/07/2014 Medical Group Diastolic (mm Hg) 99 09/07/2014 Medical Group Heart Rate 82 09/07/2014 Medical Group Temperature Oral (F) 98.3 F 09/07/2014 Medical Group Height 66 09/07/2014 Medical Group Weight 210 09/07/2014 Medical Group Respitory Rate 14 09/07/2014 Medical Group Weight 204 09/08/2013 Medical Group Temperature Oral (F) 98.0 F 09/08/2013 Medical Group Heart Rate 77 09/08/2013 Medical Group Systolic (mm Hg) 170 09/08/2013 Medical Group Diastolic (mm Hg) 94 09/08/2013 Medical Group Systolic (mm Hg) 110 08/31/2013 Medical Group Diastolic (mm Hg) 74 08/31/2013 Medical Group Heart Rate 84 08/31/2013 Medical Group Weight 198 08/31/2013 Medical Group Weight 202 06/02/2012 Medical [facility] Height 66 06/02/2012 Medical Group Temperature Oral (F) 98.4 F 06/02/2012 Medical [facility] Heart Rate 100 06/02/2012 Medical Group Systolic (mm Hg) 131 06/02/2012 Medical [facility] Diastolic (mm Hg) 78 06/02/2012 Medical [facility] Encounters Location Location Encounter Encounter Reason Attending ADM DC Status Source Details Type Number For Provider Date Date Visit [facility] Office [id number] Oralia Gao, 08/31 08/31 [place] Visit 320 /2013 [facility] [address] [facility] Office [id number] Lyric 09/08 09/08 [place] Visit 420 MD Javier /2013 [facility] 9305 [facility] Lab Report [id number] Lyric 02/23 02/23 JACKIE Peoples 570 MD Javier [facility] Office [id number] Elmer 09/07 09/07 [place] Visit 320 MD Lupillo /2014 [facility] Procedures Procedure Code Date Perfomer Comments Source
--- OUTSIDE RECORDS SUMMARY | 2018-06-25 13:48 | XMS REPORT | Continuity of Care Document ---
:1975 Author Organization [facility] Care Team Providers Name Role Phone MD Lupillo, Elmer Unavailable Unavailable Insurance Providers Payer name Policy type / Policy ID Covered green party ID Policy Laws Coverage type MHEALTH - [facility] [employer] - [facility] MEDICARE B-[place]: NOVITAS [employer] - [facility] [employer] - [facility] [employer] - [facility] Event[employer] - [facility] Event[employer] - [facility] [employer] - [facility] [employer] - [facility] [employer] - [facility] [employer] - [facility] [employer] - [facility] Event[employer] - [facility] Eventup - MHEALTH Event[employer] - [facility] [employer] - [facility] [employer] - [facility] [employer] - [facility] Event[employer] - [facility] Eventup - MHEALTH Event[employer] - [facility] Eventup - [facility] Eventup - [facility] Encounters Encounter Performer Location Date Office Visit Elmer Wesley MD [facility] Sep 07, 2014 Problems Problem Effective [...] SOLOSTAR 100 UNIT/ML 18 units at bedtime [place] Dec 06, 2011 Active SOLN ACCU-CHEK FERNANDA [...] 2012Jun 04, platelet count PLATELETS 289 K/CMM 834-017 4245 /mm3 Jun 04, hemoglobin, blood HGB 7.9 g/dL 14.0-18.0 Low 2012Jun 04, hematocrit, blood HCT 23.7 % 42.0-54.0 Low 2012Jun 04, platelet count PLATELETS 289 K/CMM 842-529 4876 /mm3 Oct 23, hemoglobin, blood HGB 13.2 g/dL 14.0-18.0 Low 2012Oct 23, hematocrit, blood HCT 41.5 % 42.0-54.0 Low 2012Oct 23, platelet count PLATELETS 217 K/CMM 176-673 6930 /mm3 Jun 04, hemoglobin A1C, HGBA1C 5.1 % 2012 blood, as % of total hemoglobin Jun 04, cholesterol, serum CHOLESTEROL 292 mg/dl 120-200 High 2012Jun 04, triglyceride, serum, TRIGLYCERIDE 200 mg/dl 0-200 2012 fasting Jun 04, HDL cholesterol, HDL 37 mg/dl >=35 2012 serum Jun 04, LDL cholesterol, LDL 215 mg/dl 0-129 High 2012 serum Jun 04, sodium, serum SODIUM 139 MEQ/L [phone] mmol/L Jun 04, potassium, serum POTASSIUM 4.6 [...] 2011Nov 11, sodium, serum SODIUM 141 MEQ/L 033-357 9511 mmol/L Nov 11, potassium, serum POTASSIUM 4.7 [...] 2012Jun 04, sodium, serum SODIUM 139 MEQ/L 783-218 8176 mmol/L Jun 04, potassium, serum POTASSIUM 4.6 [...] Oct 23, sodium, serum SODIUM 141 MEQ/L 393-279 3682 mmol/L Oct 23, potassium, serum POTASSIUM 4.5 [...]
--- OUTSIDE RECORDS SUMMARY | 2018-06-25 13:48 | XMS REPORT | Continuity of Care Document ---
:1975 [facility] Team Providers Name Role Phone MD Javier, Lyric Unavailable Unavailable Insurance Providers Payer name Policy type / Policy ID Covered alliance party ID Policy Laws Coverage type MHEALTH - [facility]GE [employer] - [facility] MEDICARE B-[place]: NOVITAS [employer] - [facility] World [employer] - [facility] [employer] - [facility] World [employer] - [facility] World [employer] - [facility] World [employer] - [facility] World [employer] - [facility] World [employer] - [facility] EDG World Blender - [facility]G World Blender - [facility] World Blender - [facility] World Blender - MHEALTH World [employer]ender - [facility] World [employer]ender - [facility] World [employer]ender - [facility] World [employer]ender - [facility] World [employer] - [facility] Encounters Encounter Performer Location Date Lab Report Lyric Herrera MD [facility] Feb 23, 2014 Problems Problem Effective Dates [...] 2012Jun 04, platelet count PLATELETS 289 K/CMM 825-876 8369 /mm3 Jun 04, hemoglobin, blood HGB 7.9 g/dL 14.0-18.0 Low 2012Jun 04, hematocrit, blood HCT 23.7 % 42.0-54.0 Low 2012Jun 04, platelet count PLATELETS 289 K/CMM 348-213 9181 /mm3 Oct 23, hemoglobin, blood HGB 13.2 g/dL 14.0-18.0 Low 2012Oct 23, hematocrit, blood HCT 41.5 % 42.0-54.0 Low 2012Oct 23, platelet count PLATELETS 217 K/CMM 346-335 2588 /mm3 Jun 04, hemoglobin A1C, HGBA1C 5.1 % 2012 blood, as % of total hemoglobin Jun 04, cholesterol, serum CHOLESTEROL 292 mg/dl 120-200 High 2012Jun 04, triglyceride, serum, TRIGLYCERIDE 200 mg/dl 0-200 2012 fasting Jun 04, HDL cholesterol, HDL 37 mg/dl >=35 2012 serum Jun 04, LDL cholesterol, LDL 215 mg/dl 0-129 High 2012 serum Jun 04, sodium, serum SODIUM 139 MEQ/L 881-987 0878 mmol/L Jun 04, potassium, serum POTASSIUM 4.6 [...] 2011Nov 11, sodium, serum SODIUM 141 MEQ/L 375-184 5861 mmol/L Nov 11, potassium, serum POTASSIUM 4.7 [...] Jun 04, sodium, serum SODIUM 139 MEQ/L 054-106 2058 mmol/L Jun 04, potassium, serum POTASSIUM 4.6 [...] Oct 23, sodium, serum SODIUM 141 MEQ/L 304-507 3096 mmol/L Oct 23, potassium, serum POTASSIUM 4.5 [...]
--- OUTSIDE RECORDS SUMMARY | 2018-06-25 13:48 | XMS REPORT ---
:1975 [facility] [address] [place] [address] Dr. Leon [address] [place] [address] Care Team Providers Name Role Phone Unavailable Unavailable Unavailable Problems This patient has no known problems. Allergies, Adverse Reactions, Alerts This patient has no known allergies or adverse reactions. Medications This patient has no known medications. Encounters Start End Encounter Admission Attending Care Care Encounter Date/Time Date/Time Type Type Clinicians Facility Department ID 2018-06-22 Inpatient [facility] [id number] 07:53:49 2018-06-22 Outpatient [facility] [id number] 07:53:48
--- OUTSIDE RECORDS SUMMARY | 2018-06-25 13:48 | XMS REPORT | Continuity of Care Document ---
:1975 Author Organization [facility] [facility] Care Team Providers Name Role Phone MD Murray, Oralia Unavailable Unavailable Insurance Providers Payer name Policy type / Policy ID Covered democrat ID Policy Laws Coverage type MHEALTH - [facility] EDGE [employer] - [facility] EDG MEDICARE B-[place]: [employer] - In[facility]ative[facility] EDG [employer] - [facility] EDG [employer] - [facility] EDG [facility] - HS EDG [employer] - HS EDG [employer] - HS EDG [employer] - HS EDG [facility] - HS EDG Encounters Encounter Performer Location Date Office Visit Oralia Gao MD [facility] Aug 31, 2013 Cardiology [address] [...] 2012Jun 04, platelet count PLATELETS 289 K/CMM 880-217 1529 /mm3 Jun 04, hemoglobin, blood HGB 7.9 g/dL 14.0-18.0 Low 2012Jun 04, hematocrit, blood HCT 23.7 % 42.0-54.0 Low 2012Jun 04, platelet count PLATELETS 289 K/CMM 133-549 3018 /mm3 Oct 23, hemoglobin, blood HGB 13.2 g/dL 14.0-18.0 Low 2012Oct 23, hematocrit, blood HCT 41.5 % 42.0-54.0 Low 2012Oct 23, platelet count PLATELETS 217 K/CMM 116-031 5707 /mm3 Jun 04, hemoglobin A1C, HGBA1C 5.1 % 2012 blood, as % of total hemoglobin Jun 04, cholesterol, serum CHOLESTEROL 292 mg/dl 120-200 High 2012Jun 04, triglyceride, serum, TRIGLYCERIDE 200 mg/dl 0-200 2012 fasting Jun 04, HDL cholesterol, HDL 37 mg/dl >=35 2012Jun 04, LDL cholesterol, LDL 215 mg/dl 0-129 High 2012Jun 04, sodium, serum SODIUM 139 MEQ/L 008-165 4629 mmol/L Jun 04, potassium, serum POTASSIUM 4.6 [...] 2011Nov 11, sodium, serum SODIUM 141 MEQ/L 841-203 9582 mmol/L Nov 11, potassium, serum POTASSIUM 4.7 [...] 2012Jun 04, sodium, serum SODIUM 139 MEQ/L 445-893 7690 mmol/L Jun 04, potassium, serum POTASSIUM 4.6 [...] Oct 23, sodium, serum SODIUM 141 MEQ/L 681-425 9713 mmol/L Oct 23, potassium, serum POTASSIUM 4.5 [...]
--- NOTE | 2018-06-25 14:52 | RAD REPORT ---
EXAM DESCRIPTION: RAD - Chest Single View - 06/25/2018 2:45 pm CLINICAL HISTORY: ESRD, hypoxemia Chest pain. COMPARISON: Abdomen Acute Series dated 02/27/2018; Chest Single View dated 02/18/2018; CHEST PA AND L AT 2 VIEW dated 04/20/2009 FINDINGS: Portable technique limits examination quality. Mild to moderate bilateral pulmonary opacities are present likely representing pulmonary edema. The h eart is mildly enlarged in size. No displaced fractures. IMPRESSION: Mild to moderate CHF versus volume overload pattern.
--- NOTE | 2018-06-25 15:40 | ER ---
Nurse's Notes [facility] Name: Chase Chacon Jr Age: 43 yrs Sex: Male : 1975 Arrival Date: 06/25/2018 Time: 13:43 Bed 8 Private MD: Diagnosis: End stage renal disease Presentation: 06/25 13:54 Presenting complaint: Patient states: Went to get an EGD done and they sent him here sv because his O2 sat was 86% on RA. Denies SOB. Transition of care: patient was not received from another setting of care. Onset of symptoms was June 25, 2018. Care prior to arrival: None. 13:54 Method Of Arrival: Ambulatory sv 13:54 Acuity: LEON 3 sv 14:00 Risk Assessment: Do you want to hurt yourself or someone else? Patient reports no iw desire to harm self or others. Initial Sepsis Screen: Does the patient meet any 2 criteria? No. Patient's initial sepsis screen is negative. Does the patient have a suspected source of infection? No. Patient's initial sepsis screen is negative. Historical: - Allergies: 13:55 No Known Allergies; sv - Home Meds: 14:05 Nifedipine Oral once daily [Active]; ropinirole oral oral once daily [Active]; iw 14:06 Novolog Sub-Q 10 10 UNITS AM, 15 UNITS LUNCH AND 10 UNITS AT NIGHT [Active]; iw - PMHx: 13:55 Diabetes - NIDDM; ESRD; Gastroparesis; Hypertension; kidney disease; sv - PSHx: 13:55 cataracts; sv - Immunization history:: Adult Immunizations unknown. - Social history:: Smoking status: unknown. - Family history:: not pertinent. - Ebola Screening: : Patient negative for fever greater than or equal to 101.5 degrees Fahrenheit, and additional compatible Ebola Virus Disease symptoms Patient denies exposure to infectious person Patient denies travel to an Ebola-affected area in the 21 days before illness onset No symptoms or risks identified at this time. - Hospitalizations: : No recent hospitalization is reported. Screenin:25 Abuse screen: Denies threats or abuse. Denies injuries from another. Nutritional iw screening: No deficits noted. Tuberculosis screening: No symptoms or risk factors identified. Fall Risk None identified. Assessment: 14:24 General: Appears in no apparent distress. Behavior is calm, cooperative. Pain: Denies iw pain. Neuro: Level of Consciousness is awake, alert, obeys commands, Moves all extremities. Cardiovascular: Patient's skin is warm and dry. 14:31 Reassessment: Patient appears in no apparent distress at this time. Patient and/or iw family updated on plan of care and expected duration. Pain level reassessed. Patient is alert, oriented x 3, equal unlabored respirations, skin warm/dry/pink. pt 95% on RA, denies chest pain or SOB. Vital Signs: 13:53 BP 155 / 78; Pulse 91; Resp 18; Pulse Ox 90% on R/A; Weight 90.72 kg; Height 5 ft. 6 sv in. (167.64 cm); 14:11 BP 158 / 82; Pulse 89; Resp 17 S; Pulse Ox 94% on R/A; sg 14:31 BP 158 / 82; Pulse 68; Resp 16 S; Pulse Ox 95% on R/A; Pain 0/10; iw 14:46 Resp 18 S; Pulse Ox 98% on R/A; iw 13:53 Body Mass Index 32.28 (90.72 kg, 167.64 cm) sv 13:53 Placed on O2 \T\ 1L per NC. O2 sat up to 97%. sv ED Course: 13:43 Patient arrived in ED. tw3 13:54 Triage completed. sv 13:55 Arm band placed on. sv 13:56 Keiry Olea, RN is Primary Nurse. iw 13:56 Michael Mackey MD is Attending Physician. rn 14:00 Patient has correct armband on for positive identification. iw 14:45 XRAY Chest (1 view) In Process Unspecified. EDMS 14:47 No provider procedures requiring assistance completed. Patient did not have IV access iw during this emergency room visit. Administered Medications: No medications were administered Outcome: 15:40 Discharge ordered by MD. rn 15:48 Discharged to home ambulatory, with family. iw 15:48 Condition: good 15:48 Discharge instructions given to patient, family, Instructed on discharge instructions, follow up and referral plans. Demonstrated understanding of instructions, follow-up care. 15:49 Patient left the ED. iw Signatures: Dispatcher [employer] EDMS Lexi Zhou RN RN Houston Gill RN RN Keiry Olea RN RN Michael Mackey MD MD rn Wade, Monica tw3
--- NOTE | 2018-06-25 15:40 | EDPHYS ---
Physician Documentation [facility] Name: Chase Chacon Jr Age: 43 yrs Sex: Male : 1975 Arrival Date: 06/25/2018 Time: 13:43 Bed 8 Private MD: ED Physician Michael Mackey HPI: 06/25 15:35 This 43 yrs old Male presents to ER via Ambulatory with complaints of LOW O2. rn 15:35 REports was at center for EGD, when doing his vitals noticed his oxygen was low, he rn tried to tell them that he is not short of breath and that he has had low oxygen several times in past, hasn't missed dialysis, no cough, no fever, and no pain, sent him here for eval and did not perform EGD. Onset: The symptoms/episode began/occurred just prior to arrival. Severity of symptoms: At their worst the symptoms were moderate in the emergency department the symptoms have improved. The patient has experienced similar episodes in the past. Historical: - Allergies: 13:55 No Known Allergies; sv - Home Meds: 14:05 Nifedipine Oral once daily [Active]; ropinirole oral oral once daily [Active]; iw 14:06 Novolog Sub-Q 10 10 UNITS AM, 15 UNITS LUNCH AND 10 UNITS AT NIGHT [Active]; iw - PMHx: 13:55 Diabetes - NIDDM; ESRD; Gastroparesis; Hypertension; kidney disease; sv - PSHx: 13:55 cataracts; sv - Immunization history:: Adult Immunizations unknown. - Social history:: Smoking status: unknown. - Family history:: not pertinent. - Ebola Screening: : Patient negative for fever greater than or equal to 101.5 degrees Fahrenheit, and additional compatible Ebola Virus Disease symptoms Patient denies exposure to infectious person Patient denies travel to an Ebola-affected area in the 21 days before illness onset No symptoms or risks identified at this time. - Hospitalizations: : No recent hospitalization is reported. ROS: 15:35 Constitutional: Negative for fever, chills, and weight loss, Eyes: Negative for injury, rn pain, redness, and discharge, Neck: Negative for injury, pain, and swelling, Cardiovascular: Negative for chest pain, palpitations, and edema, Respiratory: Negative for shortness of breath, cough, wheezing, and pleuritic chest pain, Abdomen/GI: + nausea and vomiting (ongoing from gastroparesis) MS/Extremity: Negative for injury and deformity, Skin: Negative for injury, rash, and discoloration, Neuro: Negative for headache, weakness, numbness, tingling, and seizure. Exam: 15:35 Constitutional: This is a well developed, well nourished patient who is awake, alert, rn and in no acute distress. Ambulatory to room without difficulty or dyspnea. Head/Face: Normocephalic, atraumatic. Cardiovascular: Regular rate and rhythm. No pulse deficits. Respiratory: Lungs have equal breath sounds bilaterally, clear to auscultation and percussion. No rales, rhonchi or wheezes noted. No increased work of breathing, no retractions or nasal flaring. Abdomen/GI: soft, non-tender Vital Signs: 13:53 BP 155 / 78; Pulse 91; Resp 18; Pulse Ox 90% on R/A; Weight 90.72 kg; Height 5 ft. 6 sv in. (167.64 cm); 14:11 BP 158 / 82; Pulse 89; Resp 17 S; Pulse Ox 94% on R/A; sg 14:31 BP 158 / 82; Pulse 68; Resp 16 S; Pulse Ox 95% on R/A; Pain 0/10; iw 14:46 Resp 18 S; Pulse Ox 98% on R/A; iw 13:53 Body Mass Index 32.28 (90.72 kg, 167.64 cm) sv 13:53 Placed on O2 \T\ 1L per NC. O2 sat up to 97%. sv MDM: 13:56 Patient medically screened. rn 15:35 Differential Diagnosis pulmonary edema, ESRD. Data reviewed: vital signs, nurses notes, rn radiologic studies, plain films, and as a result, I will discharge patient. Counseling: I had a detailed discussion with the patient and/or guardian regarding: the historical points, exam findings, and any diagnostic results supporting the discharge/admit diagnosis, radiology results, the need for outpatient follow up, to return to the emergency department if symptoms worsen or persist or if there are any questions or concerns that arise at home. Special discussion: I discussed with the patient/guardian in detail that at this point there is no indication for admission to the hospital. It is understood, however, that if the symptoms persist or worsen the patient needs to return immediately for re-evaluation. ED course: Pt with chronic pulmonary edema from ESRD, asymptomatic, taken off of oxygen here and 96%, will dc home as no acute findings and feels fine.. 06/25 14:12 Order name: XRAY Chest (1 view); Complete Time: 14:56 rn Administered Medications: No medications were administered Disposition: 06/25/18 15:40 Discharged to Home. Impression: End stage renal disease. - Condition is Stable. - Discharge Instructions: Pulmonary Edema, End-Stage Kidney Disease. - Medication Reconciliation Form, Thank You Letter, Antibiotic Education, Prescription Opioid Use form. - Follow up: Private Physician; When: As needed; Reason: Recheck today's complaints, Re-evaluation by your physician. - Problem is an ongoing problem. - Symptoms are unchanged. Signatures: Dispatcher [employer] EDLexi Degroot RN RN sv Williams, Irene, RN RN iw Michael Mackey MD MD rn Corrections: (The following items were deleted from the chart) 15:38 15:35 Constitutional: Negative for fever, chills, and weight loss, Eyes: Negative for rn injury, pain, redness, and discharge, Neck: Negative for injury, pain, and swelling, Cardiovascular: Negative for chest pain, palpitations, and edema, Respiratory: Negative for shortness of breath, cough, wheezing, and pleuritic chest pain, Abdomen/GI: Negative for abdominal pain, nausea, vomiting, diarrhea, and constipation, MS/Extremity: Negative for injury and deformity, Skin: Negative for injury, rash, and discoloration, Neuro: Negative for headache, weakness, numbness, tingling, and seizure, rn 15:49 15:40 06/25/2018 15:40 Discharged to Home. Impression: End stage renal disease. iw Condition is Stable. Forms are Medication Reconciliation Form, Thank You Letter, Antibiotic Education, Prescription Opioid Use. Follow up: Private Physician; When: As needed; Reason: Recheck today's complaints, Re-evaluation by your physician. Problem is an ongoing problem. Symptoms are unchanged. rn
== END 2018-06-25 15:49 | disposition home or self-care (01) ==
LOC: ER 13:42
DX: N18.6 End stage renal disease (principal); E11.22 Type 2 diabetes mellitus with diabetic chronic kidney disease; I12.0 Hypertensive chronic kidney disease with stage 5 chronic kidney disease or end stage renal disease; K31.84 Gastroparesis; Z79.4 Long term (current) use of insulin; Z99.2 Dependence on renal dialysis
CPT/HCPCS: 71045; 99283

== ENCOUNTER 2018-07-02 14:20 | Emergency (ER) | payer OTHER ==
--- OUTSIDE RECORDS SUMMARY | 2018-07-02 14:22 | XMS REPORT | Clinical Summary ---
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
--- OUTSIDE RECORDS SUMMARY | 2018-07-02 14:23 | XMS REPORT | Continuity of Care Document ---
:1975 Author Organization [facility] [employer] [facility] Care Team Providers Name Role Phone MD Javier, Lyric Unavailable Unavailable Insurance Providers Payer name Policy type / Policy ID Covered republican ID Policy Laws Coverage type MHEALTH - [facility] EDGE [employer] - [facility]G MEDICARE B-[place]: NOVIT[email or web address] - [facility] EDG ethology - [facility] ethology - [facility] EDG ethology - [facility] EDG ethology - [facility] EDG ethology - [facility] EDG ethology - [facility] EDG ethology - [facility] EDG ethology - [facility] ethology - [facility] ethology - [facility] EDG ethology - MHEALTH ethology - [facility] EDG ethology - [facility] EDG ethology - [facility] EDG ethology - [facility] EDG ethology - [facility]G Encounters Encounter Performer Location Date Office Visit Lyric Herrera MD [facility] Sep 08, 2013 9305 Problems Problem Effective [...] SOLOSTAR 100 UNIT/ML 18 units at bedtime [place]n Dec 06, 2011 Active SOLN LIPITOR 20 [...] 2012Jun 04, platelet count PLATELETS 289 K/CMM 888-254 5419 /mm3 Jun 04, hemoglobin, blood HGB 7.9 g/dL 14.0-18.0 Low 2012Jun 04, hematocrit, blood HCT 23.7 % 42.0-54.0 Low 2012Jun 04, platelet count PLATELETS 289 K/CMM 428-371 4557 /mm3 Oct 23, hemoglobin, blood HGB 13.2 g/dL 14.0-18.0 Low 2012Oct 23, hematocrit, blood HCT 41.5 % 42.0-54.0 Low 2012Oct 23, platelet count PLATELETS 217 K/CMM 688-339 2205 /mm3 Jun 04, hemoglobin A1C, HGBA1C 5.1 % 2012 blood, as % of total hemoglobin Jun 04, cholesterol, serum CHOLESTEROL 292 mg/dl 120-200 High 2012Jun 04, triglyceride, serum, TRIGLYCERIDE 200 mg/dl 0-200 2012 fasting Jun 04, HDL cholesterol, HDL 37 mg/dl >=35 2012Jun 04, LDL cholesterol, LDL 215 mg/dl 0-129 High 2012Jun 04, sodium, serum SODIUM 139 MEQ/L 992-163 0474 mmol/L Jun 04, potassium, serum POTASSIUM 4.6 [...] 2011Nov 11, sodium, serum SODIUM 141 MEQ/L 122-487 4856 mmol/L Nov 11, potassium, serum POTASSIUM 4.7 [...] 2012Jun 04, sodium, serum SODIUM 139 MEQ/L 419-458 1684 mmol/L Jun 04, potassium, serum POTASSIUM 4.6 [...] Oct 23, sodium, serum SODIUM 141 MEQ/L 507-529 8739 mmol/L Oct 23, potassium, serum POTASSIUM 4.5 [...]
--- OUTSIDE RECORDS SUMMARY | 2018-07-02 14:23 | XMS REPORT | Continuity of Care Document ---
[...] 08/31/2013 [facility] Weight 202 06/02/2012 [facility] Height 66 06/02/2012 [facility] Temperature Oral (F) 98.4 F 06/02/2012 [facility] Heart Rate 100 06/02/2012 [facility] Systolic (mm Hg) 131 06/02/2012 [facility] Diastolic (mm Hg) 78 06/02/2012 [facility] Encounters Location Location Encounter Encounter Reason Attending ADM DC Status Source Details Type Number For Provider Date Date Visit [facility] [id number] Oralia Gao, 08/31 08/31 [place] Visit 320 /2013 [facility] Cardiology [address] [facility] [id number] Lyric 09/08 09/08 [place] Visit 420 MD Javier /2013 [facility] 9305 [facility] Lab Report [id number] Lyric 02/23 02/23 JACKIE Peoples 570 MD [facility] [id number] Elmer 09/07 09/07 [place] Visit 320 MD Lupillo /2014 [facility] Procedures Procedure Code Date Perfomer Comments Source
--- OUTSIDE RECORDS SUMMARY | 2018-07-02 14:24 | XMS REPORT ---
:1975 [facility] Address [address] [place] [address] Dr. Leon [address] [place] [address] Care Team Providers Name Role Phone Unavailable Unavailable Unavailable Problems This patient has no known problems. Allergies, Adverse Reactions, Alerts This patient has no known allergies or adverse reactions. Medications This patient has no known medications. Encounters Start End Encounter Admission Attending Care Care Encounter Date/Time Date/Time Type Type Clinicians Facility Department ID 2018-06-22 Inpatient [facility] [id number] 07:53:49 2018-06-22 Outpatient [facility] [id number] 07:53:48
--- OUTSIDE RECORDS SUMMARY | 2018-07-02 14:24 | XMS REPORT | Continuity of Care Document ---
:1975 Author Organization [facility] [employer] [facility] Care Team Providers Name Role Phone MD Murray, Oralia Unavailable Unavailable Insurance Providers Payer name Policy type / Policy ID Covered democrat ID Policy Laws Coverage type MHEALTH - MHHS EDGE [employer] - [facility] EDG MEDICARE B-[place]: [employer] - [place] [employer] [employer] - [place] [employer] [employer] - [employer] [employer] [employer] - HS EDG [employer] - HS EDG [employer] - HS EDG [employer] - HS EDG [employer] - HS EDG Encounters Encounter Performer Location Date Office Visit Oralia Gao MD [facility] Aug 31, 2013 Cardiology [address] Problems [...] 2012Jun 04, platelet count PLATELETS 289 K/CMM [phone] /mm3 Jun 04, hemoglobin, blood HGB 7.9 g/dL 14.0-18.0 Low 2012Jun 04, hematocrit, blood HCT 23.7 % 42.0-54.0 Low 2012Jun 04, platelet count PLATELETS 289 K/CMM 907-157 7142 /mm3 Oct 23, hemoglobin, blood HGB 13.2 g/dL 14.0-18.0 Low 2012Oct 23, hematocrit, blood HCT 41.5 % 42.0-54.0 Low 2012Oct 23, platelet count PLATELETS 217 K/CMM [phone] /mm3 Jun 04, hemoglobin A1C, HGBA1C 5.1 % 2012 blood, as % of total hemoglobin Jun 04, cholesterol, serum CHOLESTEROL 292 mg/dl 120-200 High 2012Jun 04, triglyceride, serum, TRIGLYCERIDE 200 mg/dl 0-200 2012 fasting Jun 04, HDL cholesterol, HDL 37 mg/dl >=35 2012Jun 04, LDL cholesterol, LDL 215 mg/dl 0-129 High 2012Jun 04, sodium, serum SODIUM 139 MEQ/L [phone] mmol/L Jun 04, potassium, serum POTASSIUM 4.6 [...] 2011Nov 11, sodium, serum SODIUM 141 MEQ/L 277-606 5793 mmol/L Nov 11, potassium, serum POTASSIUM 4.7 [...] 2012Jun 04, sodium, serum SODIUM 139 MEQ/L [phone] mmol/L Jun 04, potassium, serum POTASSIUM 4.6 [...] Oct 23, sodium, serum SODIUM 141 MEQ/L [phone] mmol/L Oct 23, potassium, serum POTASSIUM 4.5 [...]
--- OUTSIDE RECORDS SUMMARY | 2018-07-02 14:24 | XMS REPORT | Continuity of Care Document ---
:1975 [facility] Team Providers Name Role Phone MD Javier, Lyric Unavailable Unavailable Insurance Providers Payer name Policy type / Policy ID Covered republican ID Policy Laws Coverage type MHEALTH - MHHS EDGE [employer] - MHHS EDG MEDICARE B-[place]: [employer] - MHHS EDG [employer] - MHHS EDG [employer] - MHHS EDG [employer] - MHHS EDG [employer] - MHHS EDG [employer] - MHHS EDG [employer] - MHHS EDG [employer] - MHHS EDG [employer] - MHHS EDG [employer] - MHHS EDG [employer] - MHHS EDG [employer] - [facility] [employer] - MHHS EDG [employer] - MHHS EDG [employer] - MHHS EDG [employer] - MHHS EDG [employer] - MHHS EDG Encounters Encounter Performer Location Date Lab Report Lyric Herrera MD [facility] Feb 23, 2014 Problems Problem Effective Dates [...] 2012Jun 04, platelet count PLATELETS 289 K/CMM [phone] /mm3 Jun 04, hemoglobin, blood HGB 7.9 g/dL 14.0-18.0 Low 2012Jun 04, hematocrit, blood HCT 23.7 % 42.0-54.0 Low 2012Jun 04, platelet count PLATELETS 289 K/CMM 059-917 2603 /mm3 Oct 23, hemoglobin, blood HGB 13.2 g/dL 14.0-18.0 Low 2012Oct 23, hematocrit, blood HCT 41.5 % 42.0-54.0 Low 2012Oct 23, platelet count PLATELETS 217 K/CMM 485-852 7332 /mm3 Jun 04, hemoglobin A1C, HGBA1C 5.1 % 2012 blood, as % of total hemoglobin Jun 04, cholesterol, serum CHOLESTEROL 292 mg/dl 120-200 High 2012Jun 04, triglyceride, serum, TRIGLYCERIDE 200 mg/dl 0-200 2012 fasting Jun 04, HDL cholesterol, HDL 37 mg/dl >=35 2012 serum Jun 04, LDL cholesterol, LDL 215 mg/dl 0-129 High 2012 serum Jun 04, sodium, serum SODIUM 139 MEQ/L 247-549 4311 mmol/L Jun 04, potassium, serum POTASSIUM 4.6 [...] 2011Nov 11, sodium, serum SODIUM 141 MEQ/L 655-373 8129 mmol/L Nov 11, potassium, serum POTASSIUM 4.7 [...] Jun 04, sodium, serum SODIUM 139 MEQ/L 950-364 0510 mmol/L Jun 04, potassium, serum POTASSIUM 4.6 [...] Oct 23, sodium, serum SODIUM 141 MEQ/L [phone] mmol/L Oct 23, potassium, serum POTASSIUM 4.5 [...]
--- OUTSIDE RECORDS SUMMARY | 2018-07-02 14:24 | XMS REPORT | Continuity of Care Document ---
:1975 Author Organization [facility] [employer] [facility] Care Team Providers Name Role Phone MD Lupillo, Elmer Unavailable Unavailable Insurance Providers Payer name Policy type / Policy ID Covered alliance party ID Policy Laws Coverage type MHEALTH - MHHS EDGE [employer] - MHHS EDG MEDICARE B-[place]: NOVITAS [employer] - MHHS EDG [employer] - MHHS EDG [employer] - MHHS EDG [employer] - MHHS EDG [employer] - MHHS EDG [employer] - MHHS EDG [employer] - MHHS EDG [employer] - MHHS EDG [employer] - MHHS EDG [employer] - MHHS EDG [employer] - MHHS EDG [employer] - [facility] [employer] - MHHS EDG [employer] - MHHS EDG [employer] - MHHS EDG [employer] - MHHS EDG [employer] - MHHS EDG [employer] - [facility]ALTH [employer] - MHHS EDG [employer] - MHHS EDG [employer] - MHHS EDG Encounters Encounter Performer Location Date Office Visit Elmer Wesley MD [facility] [employer] [facility] Sep 07, 2014 Problems Problem Effective [...] SOLOSTAR 100 UNIT/ML 18 units at bedtime md Dec 06, 2011 Active SOLN ACCU-CHEK FERNANDA [...] 2012Jun 04, platelet count PLATELETS 289 K/CMM 714-135 3085 /mm3 Jun 04, hemoglobin, blood HGB 7.9 g/dL 14.0-18.0 Low 2012Jun 04, hematocrit, blood HCT 23.7 % 42.0-54.0 Low 2012Jun 04, platelet count PLATELETS 289 K/CMM 268-873 2221 /mm3 Oct 23, hemoglobin, blood HGB 13.2 g/dL 14.0-18.0 Low 2012Oct 23, hematocrit, blood HCT 41.5 % 42.0-54.0 Low 2012Oct 23, platelet count PLATELETS 217 K/CMM 585-976 2048 /mm3 Jun 04, hemoglobin A1C, HGBA1C 5.1 % 2012 blood, as % of total hemoglobin Jun 04, cholesterol, serum CHOLESTEROL 292 mg/dl 120-200 High 2012Jun 04, triglyceride, serum, TRIGLYCERIDE 200 mg/dl 0-200 2012 fasting Jun 04, HDL cholesterol, HDL 37 mg/dl >=35 2012 serum Jun 04, LDL cholesterol, LDL 215 mg/dl 0-129 High 2012 serum Jun 04, sodium, serum SODIUM 139 MEQ/L [phone] mmol/L Jun 04, potassium, serum POTASSIUM 4.6 [...] 2011Nov 11, sodium, serum SODIUM 141 MEQ/L 595-139 1781 mmol/L Nov 11, potassium, serum POTASSIUM 4.7 [...] 2012Jun 04, sodium, serum SODIUM 139 MEQ/L [phone] mmol/L Jun 04, potassium, serum POTASSIUM 4.6 [...] Oct 23, sodium, serum SODIUM 141 MEQ/L 780-714 6450 mmol/L Oct 23, potassium, serum POTASSIUM 4.5 [...]
[2018-07-02] MEDS ORDERED: DIPHENHYDRAMINE 50 MG/ML VIAL ONE (15:30)
[2018-07-02] MEDS ORDERED: METOCLOPRAMIDE 10 MG/2mL INJ ONE (15:30)
[2018-07-02] MEDS ORDERED: NA CHLORIDE 0.9% 50 ML IV ONE (15:30)
[2018-07-02 16:04] LABS: Absolute Monocytes 0.5 K/uL (0.1-1.3); Absolute Neutrophil 5.9 K/uL (1.8-8.0); Eosinophils % 1.2 % (0-4.4); Hematocrit 28.9 % (39.6-49.0); Lymphocytes % 12.9 % (15.3-44.8); Monocytes % 7.1 % (3.3-12.3); RBC Red Blood Cell Count 3.45 M/uL (4.33-5.43)
[2018-07-02 16:28] LABS: Albumin 3.3 g/dL (3.4-5.0); Anisocytosis 1+; Bilirubin Direct 0.3 mg/dL (0-0.2); Bilirubin Total 0.7 mg/dL (0.2-1.0); Blood Morphology Comment NOTED (NOT SEEN); Platelet Estimate ADEQ; Polychromasia 1+; Protein, Total 7.9 g/dL (6.4-8.2); Urine White Blood Cell Casts OK
--- NOTE | 2018-07-02 16:42 | ER ---
Nurse's Notes [facility] Name: Chase Chacon Jr Age: 43 yrs Sex: Male : 1975 Arrival Date: 07/02/2018 Time: 14:24 Bed 26 Private MD: Diagnosis: Vomiting, unspecified;Abdominal and pelvic pain;Diarrhea, unspecified Presentation: 07/02 14:31 Presenting complaint: Patient states: N/V since yesterday during dialysis, denies pain sg but reports abdominal muscles are sore from vomiting, denies Fever. Transition of care: patient was not received from another setting of care. Onset of symptoms was July 02, 2018. Risk Assessment: Do you want to hurt yourself or someone else? Patient reports no desire to harm self or others. Initial Sepsis Screen: Does the patient meet any 2 criteria? No. Patient's initial sepsis screen is negative. Does the patient have a suspected source of infection? No. Patient's initial sepsis screen is negative. Care prior to arrival: None. 14:31 Method Of Arrival: Ambulatory sg 14:31 Acuity: LEON 3 sg Historical: - Allergies: 14:30 Promethazine; sg 14:34 promethazine; tw2 - Home Meds: 14:34 Nifedipine Oral once daily [Active]; Novolog Sub-Q 10 10 UNITS AM, 15 UNITS LUNCH AND tw2 10 UNITS AT NIGHT [Active]; ropinirole Oral once daily [Active]; - PMHx: 14:30 Diabetes - NIDDM; ESRD; Gastroparesis; Hypertension; kidney disease; sg 14:34 Diabetes - NIDDM; ESRD; Gastroparesis; Hypertension; kidney disease; tw2 - PSHx: 14:30 cataracts; sg 14:34 cataracts; tw2 - Immunization history:: Adult Immunizations up to date, Adult Immunizations. - Social history:: Smoking status: Patient/guardian denies using tobacco, Smoking status: . - Ebola Screening: : Patient negative for fever greater than or equal to 101.5 degrees Fahrenheit, and additional compatible Ebola Virus Disease symptoms Patient denies exposure to infectious person Patient denies travel to an Ebola-affected area in the 21 days before illness onset No symptoms or risks identified at this time Patient denies travel to an Ebola-affected area in the 21 days before illness onset. Screenin:28 Abuse screen: Denies threats or abuse. Nutritional screening: No deficits noted. tw2 Tuberculosis screening: No symptoms or risk factors identified. Fall Risk None identified. Assessment: 14:35 General: Appears in no apparent distress. Behavior is calm, cooperative, appropriate tw2 for age. Pain: Complains of pain in abdomen. Neuro: Level of Consciousness is awake, alert, obeys commands, Oriented to person, place, time, situation. Cardiovascular: Heart tones S1 S2 Capillary refill < 3 seconds Patient's skin is warm and dry. Respiratory: Airway is patent Respiratory effort is even, unlabored, Respiratory pattern is regular, symmetrical, Breath sounds are clear bilaterally. GI: Bowel sounds present X 4 quads. Reports nausea, vomiting. : No signs and/or symptoms were reported regarding the genitourinary system. EENT: No signs and/or symptoms were reported regarding the EENT system. Derm: No signs and/or symptoms reported regarding the dermatologic system. Musculoskeletal: Range of motion: intact in all extremities. 17:02 Reassessment: Patient appears in no apparent distress at this time. Patient denies pain mg2 at this time. Patient states feeling better. Vital Signs: 14:24 Temp 98.7; sg 14:30 BP 98 / 52; Pulse 87; Resp 16; Pulse Ox 92% on R/A; sg 15:50 BP 194 / 101; Pulse 85; Resp 18; Pulse Ox 95% on 3 lpm NC; mg2 16:22 BP 186 / 99; Pulse 79; Resp 18; Pulse Ox 96% on 3 lpm NC; mg2 17:02 BP 177 / 99; Pulse 85; Resp 18; Pulse Ox 100% on R/A; Pain 0/10; mg2 ED Course: 14:24 Patient arrived in ED. mr 14:25 Bed in low position. Call light in reach. Pulse ox on. NIBP on. tw2 14:28 Hafsa Hinojosa RN is Primary Nurse. tw2 14:29 Nils South PA is PHCP. jr8 14:29 Yves Aadm MD is Attending Physician. jr8 14:31 Arm band placed on. sg 14:32 Triage completed. sg 15:00 Report given to JENNIE Umanzor. tw2 15:50 No provider procedures requiring assistance completed. Inserted saline lock: 20 gauge mg2 in right forearm, using aseptic technique. Blood collected. 17:02 IV discontinued, intact, bleeding controlled, No redness/swelling at site. Pressure mg2 dressing applied. Administered Medications: 15:47 Drug: Reglan 10 mg Route: IVP; Site: right forearm; mg2 17:04 Follow up: Response: No adverse reaction; Marked relief of symptoms mg2 15:47 Drug: Benadryl 25 mg Route: IVP; Site: right forearm; mg2 17:04 Follow up: Response: No adverse reaction; Marked relief of symptoms mg2 Outcome: 16:41 Discharge ordered by MD. ngo 17:02 Discharged to home ambulatory, with family. mg2 17:02 Condition: stable 17:02 Discharge instructions given to patient, family, Instructed on discharge instructions, follow up and referral plans. Demonstrated understanding of instructions, follow-up care. 17:03 Patient left the ED. mg2 Signatures: Houston Gill, RN RN Rachel Dailey mr ChristinaNils perez, PA BELINDA jr8 Hafsa Hinojosa RN RN tw2 Noé Gurrola RN RN mg2 Corrections: (The following items were deleted from the chart) 16:50 16:22 BP 186 / 99; Pulse 79bpm; Resp 18bpm; Pulse Ox 96% RA; mg2 mg2
--- NOTE | 2018-07-02 16:42 | EDPHYS ---
Physician Documentation [facility] Name: Chase Chacon Jr Age: 43 yrs Sex: Male : 1975 Arrival Date: 07/02/2018 Time: 14:24 Bed 26 Private MD: ED Physician Yves Adam HPI: 07/02 14:45 This 43 yrs old Male presents to ER via Ambulatory with complaints of jr8 Vomiting, Nausea. 14:45 The patient presents to the emergency department with nausea, that is moderate, jr8 vomiting, that is intermittent, described as undigested food, diarrhea, that is intermittent, abdominal pain, of the epigastric area, described as crampy, and does not radiate. Onset: The symptoms/episode began/occurred gradually, 4 day(s) ago. Possible causes: flare up of bowel problem, gastroparesis. The symptoms are alleviated by prescription meds. Associated signs and symptoms: Pertinent positives: abdominal pain, diarrhea, nausea, vomiting, Pertinent negatives: anorexia, dysuria, GI bleeding, hematuria. Severity of symptoms: Pain is currently a 5 / 10. The patient has experienced similar episodes in the past. The patient has been recently seen by a physician: the patient's primary care provider, with similar presenting complaints, was given a prescription for an antiemetic. Patient reports a hx of gastroparesis. He reports he has had similar symptoms since Friday, with nausea and vomiting. Also reports intermittent diarrhea. States he has been given a Phenergan shot twice since Friday, which helped, but this morning he woke up with increased vomiting. Historical: - Allergies: 14:30 Promethazine; sg 14:34 promethazine; tw2 - Home Meds: 14:34 Nifedipine Oral once daily [Active]; Novolog Sub-Q 10 10 UNITS AM, 15 UNITS LUNCH AND tw2 10 UNITS AT NIGHT [Active]; ropinirole Oral once daily [Active]; - PMHx: 14:30 Diabetes - NIDDM; ESRD; Gastroparesis; Hypertension; kidney disease; sg 14:34 Diabetes - NIDDM; ESRD; Gastroparesis; Hypertension; kidney disease; tw2 - PSHx: 14:30 cataracts; sg 14:34 cataracts; tw2 - Immunization history:: Adult Immunizations up to date, Adult Immunizations. - Social history:: Smoking status: Patient/guardian denies using tobacco, Smoking status: . - Ebola Screening: : Patient negative for fever greater than or equal to 101.5 degrees Fahrenheit, and additional compatible Ebola Virus Disease symptoms Patient denies exposure to infectious person Patient denies travel to an Ebola-affected area in the 21 days before illness onset No symptoms or risks identified at this time Patient denies travel to an Ebola-affected area in the 21 days before illness onset. ROS: 14:45 Constitutional: Negative for fever, chills, and weight loss, Cardiovascular: Negative jr8 for chest pain, palpitations, and edema, Respiratory: Negative for shortness of breath, cough, wheezing, and pleuritic chest pain, MS/Extremity: Negative for injury and deformity, Skin: Negative for injury, rash, and discoloration, Neuro: Negative for headache, weakness, numbness, tingling, and seizure. 14:45 Abdomen/GI: Positive for abdominal pain, nausea, vomiting, and diarrhea, abdominal cramps, Negative for constipation, abdominal distension, anorexia, black/tarry stool. Exam: 15:22 Constitutional: This is a well developed, well nourished patient who is awake, alert, jr8 and in no acute distress. ENT: Nares patent. No nasal discharge, no septal abnormalities noted. Tympanic membranes are normal and external auditory canals are clear. Oropharynx with no redness, swelling, or masses, exudates, or evidence of obstruction, uvula midline. Mucous membranes moist. Cardiovascular: Regular rate and rhythm with a normal S1 and S2. No gallops, murmurs, or rubs. Normal PMI, no JVD. No pulse deficits. Respiratory: Lungs have equal breath sounds bilaterally, clear to auscultation and percussion. No rales, rhonchi or wheezes noted. No increased work of breathing, no retractions or nasal flaring. Abdomen/GI: Soft, non-tender, with normal bowel sounds. No distension or tympany. No guarding or rebound. No evidence of tenderness throughout. Skin: Warm, dry with normal turgor. Normal color with no rashes, no lesions, and no evidence of cellulitis. MS/ Extremity: Pulses equal, no cyanosis. Neurovascular intact. Full, normal range of motion. Neuro: Awake and alert, GCS 15, oriented to person, place, time, and situation. Cranial nerves II-XII grossly intact. Motor strength 5/5 in all extremities. Sensory grossly intact. Cerebellar exam normal. Normal gait. Vital Signs: 14:24 Temp 98.7; sg 14:30 BP 98 / 52; Pulse 87; Resp 16; Pulse Ox 92% on R/A; sg 15:50 BP 194 / 101; Pulse 85; Resp 18; Pulse Ox 95% on 3 lpm NC; mg2 16:22 BP 186 / 99; Pulse 79; Resp 18; Pulse Ox 96% on 3 lpm NC; mg2 17:02 BP 177 / 99; Pulse 85; Resp 18; Pulse Ox 100% on R/A; Pain 0/10; mg2 MDM: 14:29 Patient medically screened. jr8 16:33 Awaiting: labs results, Patient resting comfortably in room. jr8 16:37 Differential diagnosis: gastritis, viral gastroenteritis, Gastroparesis. Data reviewed: [facility] vital signs, nurses notes, lab test result(s), CBC, electrolytes. Counseling: I had a detailed discussion with the patient and/or guardian regarding: the historical points, exam findings, and any diagnostic results supporting the discharge/admit diagnosis, lab results, the need for outpatient follow up, a family practitioner, to return to the emergency department if symptoms worsen or persist or if there are any questions or concerns that arise at home. Medication response: Reglan; patient reports improved pain and nausea. Response to treatment: the patient's symptoms have markedly improved after treatment. ED course: Patient is resting comfortably and reports improvement in his nausea. Patient has had no episodes of vomiting while in the ED. Informed patient that his lab work does not show any indication that patient needs further evaluation and that patient can be discharged home if he feels comfortable. Patient agrees to plan of care to be discharged home. 07/02 15:12 Order name: Basic Metabolic Panel; Complete Time: 16:35 8 07/02 15:12 Order name: CBC with Diff; Complete Time: 16:35 8 07/02 15:12 Order name: Hepatic Function; Complete Time: 16:35 jr8 07/02 15:12 Order name: Lipase; Complete Time: 16:35 8 07/02 16:05 Order name: CBC Smear Scan; Complete Time: 16:35 EDMS 07/02 15:12 Order name: IV Saline Lock; Complete Time: 15:46 jr8 07/02 15:12 Order name: Labs collected and sent; Complete Time: 15:46 jr8 07/02 15:41 Order name: Labs - recollect needed; Complete Time: 15:47 eb Administered Medications: 15:47 Drug: Reglan 10 mg Route: IVP; Site: right forearm; mg2 17:04 Follow up: Response: No adverse reaction; Marked relief of symptoms mg2 15:47 Drug: Benadryl 25 mg Route: IVP; Site: right forearm; mg2 17:04 Follow up: Response: No adverse reaction; Marked relief of symptoms mg2 Disposition: 07/02/18 16:41 Discharged to Home. Impression: Vomiting, unspecified, Abdominal and pelvic pain, Diarrhea, unspecified. - Condition is Stable. - Discharge Instructions: Abdominal Pain, Adult, Nausea and Vomiting, Adult, [id number], Gastroparesis. - Medication Reconciliation Form, Thank You Letter, Antibiotic Education, Prescription Opioid Use form. - Follow up: Private Physician; When: 2 - 3 days; Reason: If symptoms return, Recheck today's complaints, Re-evaluation by your physician. - Problem is an acute exacerbation. - Symptoms have improved. Addendum: 07/05/2018 00:13 Co-signature as Attending Physician, Yves Adam MD. g s Signatures: Dispatcher [employer] EDMS Houston Gill, RN RN Nils South PA PA jr8 Hafsa Hinojosa RN RN tw2 Yves Adam MD MD gs Botello, Elizabeth eb Gardose, Michele RN RN mg2 Corrections: (The following items were deleted from the chart) 07/02 17:03 16:41 07/02/2018 16:41 Discharged to Home. Impression: Vomiting, unspecified; Abdominal mg2 and pelvic pain; Diarrhea, unspecified. Condition is Stable. Forms are Medication Reconciliation Form, Thank You Letter, Antibiotic Education, Prescription Opioid Use. Follow up: Private Physician; When: 2 - 3 days; Reason: If symptoms return, Recheck today's complaints, Re-evaluation by your physician. Problem is an acute exacerbation. Symptoms have improved. jr8
== END 2018-07-02 17:03 | disposition home or self-care (01) ==
LOC: ER 14:20
DX: R10.2 Pelvic and perineal pain (principal); R19.7 Diarrhea, unspecified; I12.0 Hypertensive chronic kidney disease with stage 5 chronic kidney disease or end stage renal disease; E11.22 Type 2 diabetes mellitus with diabetic chronic kidney disease; N18.6 End stage renal disease; Z79.4 Long term (current) use of insulin; Z88.8 Allergy status to other drugs, medicaments and biological substances
CPT/HCPCS: 85025; 80048; 36415; 80076; 83690; 96375; 96374; 99284; J2765

== ENCOUNTER 2018-07-24 08:51 | Emergency (ER) | payer OTHER ==
--- OUTSIDE RECORDS SUMMARY | 2018-07-24 08:53 | XMS REPORT | Clinical Summary ---
:1975 Author Organization [facility] Address [address] [place] [address] Care Team Providers Name Role Phone Unavailable [...] kidney disease on chronic dialysis, unspecified whether long term care phlebotomist insulin use (HCC); Hypertensive renal disease 10/06/2017 [...] Frazier 09/12/2017 Abstract Transplant Marianne Frazier after 07/23/2017 Social History Tobacco Use Types Packs/Day Years [...] Not on file Results Not on fileafter 07/23/2017 Insurance Payer Benefit Plan / Group Subscriber ID Type Phone Address MEDICARE MEDICARE A B xxxxxxxxxx Medicare [employer] ALL xxxxxxxxxx [facility] Contracted
--- OUTSIDE RECORDS SUMMARY | 2018-07-24 08:54 | XMS REPORT | Continuity of Care Document ---
[...] 08/31/2013 [facility] Weight 202 06/02/2012 [facility] Height 66 06/02/2012 [facility] Temperature Oral (F) 98.4 F 06/02/2012 [facility] Heart Rate 100 06/02/2012 [facility] Systolic (mm Hg) 131 06/02/2012 [facility] Diastolic (mm Hg) 78 06/02/2012 [facility] Encounters Location Location Encounter Encounter Reason Attending ADM DC Status Source Details Type Number For Provider Date Date [facility] [id number] Oralia Gao, 08/31 08/31 [place] Visit 320 /2013 [facility] Cardiology [address] [facility] [id number] Lyric 09/08 09/08 [place] Visit 420 MD Javier /2013 [facility] Report [id number] Lyric 02/23 02/23 JACKIE Peoples 570 [facility] [id number] Elmer 09/07 09/07 [place] Visit 320 MD Lupillo /2014 [facility] Procedures Procedure Code Date Perfomer Comments Source
--- OUTSIDE RECORDS SUMMARY | 2018-07-24 08:55 | XMS REPORT | Continuity of Care Document ---
:1975 Author Organization [facility] Care Team Providers Name Role Phone MD Murray, Oralia Unavailable Unavailable Insurance Providers Payer name Policy type / Policy ID Covered constitution party ID Policy Laws Coverage type MHEALTH - MHHS EDGE [employer] - [facility] EDG MEDICARE B-[place]: [employer] - [employer] - [employer] EDG [employer] - [employer] EDG [employer] - HS EDG [employer] creations - HS EDG [employer]3 creations - HS EDG c3 creations - HS EDG [employer]3 creations - HS EDG Encounters Encounter Performer Location Date Office Visit Oralia Gao MD [facility] Aug 31, 2013 [address]iology [address] Problems [...] 2012Jun 04, platelet count PLATELETS 289 K/CMM 007-009 2407 /mm3 Jun 04, hemoglobin, blood HGB 7.9 g/dL 14.0-18.0 Low 2012Jun 04, hematocrit, blood HCT 23.7 % 42.0-54.0 Low 2012Jun 04, platelet count PLATELETS 289 K/CMM 807-602 3906 /mm3 Oct 23, hemoglobin, blood HGB 13.2 g/dL 14.0-18.0 Low 2012Oct 23, hematocrit, blood HCT 41.5 % 42.0-54.0 Low 2012Oct 23, platelet count PLATELETS 217 K/CMM 249-951 6793 /mm3 Jun 04, hemoglobin A1C, HGBA1C 5.1 % 2012 blood, as % of total hemoglobin Jun 04, cholesterol, serum CHOLESTEROL 292 mg/dl 120-200 High 2012Jun 04, triglyceride, serum, TRIGLYCERIDE 200 mg/dl 0-200 2012 fasting Jun 04, HDL cholesterol, HDL 37 mg/dl >=35 2012Jun 04, LDL cholesterol, LDL 215 mg/dl 0-129 High 2012Jun 04, sodium, serum SODIUM 139 MEQ/L [phone] mmol/L Jun 04, potassium, serum POTASSIUM 4.6 [...] 2011Nov 11, sodium, serum SODIUM 141 MEQ/L 173-281 1814 mmol/L Nov 11, potassium, serum POTASSIUM 4.7 [...] 2012Jun 04, sodium, serum SODIUM 139 MEQ/L 516-871 5828 mmol/L Jun 04, potassium, serum POTASSIUM 4.6 [...] Oct 23, sodium, serum SODIUM 141 MEQ/L 201-041 5942 mmol/L Oct 23, potassium, serum POTASSIUM 4.5 [...]
--- OUTSIDE RECORDS SUMMARY | 2018-07-24 08:55 | XMS REPORT | Continuity of Care Document ---
:1975 Author Organization [facility] [employer] [facility] Care Team Providers Name Role Phone MD Lupillo, Elmer Unavailable Unavailable Insurance Providers Payer name Policy type / Policy ID Covered democrat ID Policy Laws Coverage type [facility]HEALTH - [facility] [employer] - [facility] MEDICARE [place]: NOVIT[employer] - [facility] [employer] - [facility] [employer] - [facility] [employer] - [facility] [employer] - [facility] [employer] - [facility] [employer] - [facility] [employer] - [facility] [employer] - [facility] [employer] - [facility] [employer] - [facility] [employer] [facility] [employer] - [facility] [employer] - [facility] [employer] - [facility] [employer] - [facility] [employer] - [facility] [employer] - [facility] [employer] - [facility] [employer] - [facility] [employer] - [facility] Encounters Encounter Performer Location Date Office Visit Elmer Wesley MD [facility] [employer] [facility] Sep 07, 2014 Problems Problem Effective [...] SOLOSTAR 100 UNIT/ML 18 units at bedtime nm Dec 06, 2011 Active SOLN ACCU-CHEK FERNANDA [...] 2012Jun 04, platelet count PLATELETS 289 K/CMM 602-718 0536 /mm3 Jun 04, hemoglobin, blood HGB 7.9 g/dL 14.0-18.0 Low 2012Jun 04, hematocrit, blood HCT 23.7 % 42.0-54.0 Low 2012Jun 04, platelet count PLATELETS 289 K/CMM 621-875 8708 /mm3 Oct 23, hemoglobin, blood HGB 13.2 g/dL 14.0-18.0 Low 2012Oct 23, hematocrit, blood HCT 41.5 % 42.0-54.0 Low 2012Oct 23, platelet count PLATELETS 217 K/CMM 117-169 1816 /mm3 Jun 04, hemoglobin A1C, HGBA1C 5.1 % 2012 blood, as % of total hemoglobin Jun 04, cholesterol, serum CHOLESTEROL 292 mg/dl 120-200 High 2012Jun 04, triglyceride, serum, TRIGLYCERIDE 200 mg/dl 0-200 2012 fasting Jun 04, HDL cholesterol, HDL 37 mg/dl >=35 2012 serum Jun 04, LDL cholesterol, LDL 215 mg/dl 0-129 High 2012 serum Jun 04, sodium, serum SODIUM 139 MEQ/L 847-357 7703 mmol/L Jun 04, potassium, serum POTASSIUM 4.6 [...] 2011Nov 11, sodium, serum SODIUM 141 MEQ/L 147-115 2948 mmol/L Nov 11, potassium, serum POTASSIUM 4.7 [...] 2012Jun 04, sodium, serum SODIUM 139 MEQ/L 478-565 7252 mmol/L Jun 04, potassium, serum POTASSIUM 4.6 [...] Oct 23, sodium, serum SODIUM 141 MEQ/L 999-383 7776 mmol/L Oct 23, potassium, serum POTASSIUM 4.5 [...]
--- OUTSIDE RECORDS SUMMARY | 2018-07-24 08:55 | XMS REPORT | Continuity of Care Document ---
:1975 Author Organization [facility] [employer] Care Team Providers Name Role Phone MD Javier, Lyric Unavailable Unavailable Insurance Providers Payer name Policy type / Policy ID Covered republican ID Policy Laws Coverage type MHEALTH - [facility] - [facility] MEDICARE B-[place]: [employer] - [facility] [employer] - [facility] [employer] - [facility] [employer] - [facility] [employer] - [facility] [employer] - [facility] [employer] - [facility] [employer] - [facility] - [facility] [employer] - [facility] [employer] [facility] [employer] - [facility] [employer] - [facility] [employer] [facility] [employer] - [facility] [employer] - [facility] [employer] - [facility] [employer] [facility] [employer] - [facility] Encounters Encounter Performer Location Date Office Visit Lyric Herrera MD [facility] Sep 08, 2013 [id number] Problems Problem [...] SOLOSTAR 100 UNIT/ML 18 units at bedtime mo Dec 06, 2011 Active SOLN LIPITOR 20 [...] 2012Jun 04, platelet count PLATELETS 289 K/CMM 640-086 1442 /mm3 Jun 04, hemoglobin, blood HGB 7.9 g/dL 14.0-18.0 Low 2012Jun 04, hematocrit, blood HCT 23.7 % 42.0-54.0 Low 2012Jun 04, platelet count PLATELETS 289 K/CMM 023-099 8572 /mm3 Oct 23, hemoglobin, blood HGB 13.2 g/dL 14.0-18.0 Low 2012Oct 23, hematocrit, blood HCT 41.5 % 42.0-54.0 Low 2012Oct 23, platelet count PLATELETS 217 K/CMM 718-156 8002 /mm3 Jun 04, hemoglobin A1C, HGBA1C 5.1 % 2012 blood, as % of total hemoglobin Jun 04, cholesterol, serum CHOLESTEROL 292 mg/dl 120-200 High 2012Jun 04, triglyceride, serum, TRIGLYCERIDE 200 mg/dl 0-200 2012 fasting Jun 04, HDL cholesterol, HDL 37 mg/dl >=35 2012Jun 04, LDL cholesterol, LDL 215 mg/dl 0-129 High 2012Jun 04, sodium, serum SODIUM 139 MEQ/L 030-134 3823 mmol/L Jun 04, potassium, serum POTASSIUM 4.6 [...] 2011Nov 11, sodium, serum SODIUM 141 MEQ/L 398-008 3552 mmol/L Nov 11, potassium, serum POTASSIUM 4.7 [...] 2012Jun 04, sodium, serum SODIUM 139 MEQ/L 497-502 3210 mmol/L Jun 04, potassium, serum POTASSIUM 4.6 [...] Oct 23, sodium, serum SODIUM 141 MEQ/L 190-222 1239 mmol/L Oct 23, potassium, serum POTASSIUM 4.5 [...]
--- OUTSIDE RECORDS SUMMARY | 2018-07-24 08:56 | XMS REPORT ---
:1975 [facility] [address] [place] [address] Dr. Leon [address] [place] [id number] Care Team Providers Name Role Phone Unavailable Unavailable Unavailable Problems This patient has no known problems. Allergies, Adverse Reactions, Alerts This patient has no known allergies or adverse reactions. Medications This patient has no known medications. Encounters Start End Encounter Admission Attending Care Care Encounter Date/Time Date/Time Type Type Clinicians Facility Department ID 2018-06-22 Inpatient [facility] [id number] 07:53:49 2018-06-22 Outpatient [facility] [id number] 07:53:48
--- OUTSIDE RECORDS SUMMARY | 2018-07-24 08:56 | XMS REPORT | Continuity of Care Document ---
:1975 [facility] Providers Name Role Phone MD Javier, Lyric Unavailable Unavailable Insurance Providers Payer name Policy type / Policy ID Covered libertarian ID Policy Laws Coverage type MHEALTH - [facility] [employer] - [facility] MEDICARE B-[place]: NOVITAS [employer] - [facility] [employer] - [facility] [employer] - [facility] [employer] - [facility] [employer] - [facility] [employer] - [facility] [employer] - [facility] [employer] - [facility] [employer] [facility] [employer] - [facility] [employer] - [facility] [employer] [facility] [employer] - [facility] [employer] - [facility] [employer] - [facility] [employer] - [facility] [employer] [facility] Encounters Encounter Performer Location Date Lab Report Lyric Herrera MD [facility] Feb 23, 2014 Problems Problem Effective Dates [...] 2012Jun 04, platelet count PLATELETS 289 K/CMM 751-364 7391 /mm3 Jun 04, hemoglobin, blood HGB 7.9 g/dL 14.0-18.0 Low 2012Jun 04, hematocrit, blood HCT 23.7 % 42.0-54.0 Low 2012Jun 04, platelet count PLATELETS 289 K/CMM 534-402 2945 /mm3 Oct 23, hemoglobin, blood HGB 13.2 g/dL 14.0-18.0 Low 2012Oct 23, hematocrit, blood HCT 41.5 % 42.0-54.0 Low 2012Oct 23, platelet count PLATELETS 217 K/CMM 965-285 7092 /mm3 Jun 04, hemoglobin A1C, HGBA1C 5.1 % 2012 blood, as % of total hemoglobin Jun 04, cholesterol, serum CHOLESTEROL 292 mg/dl 120-200 High 2012Jun 04, triglyceride, serum, TRIGLYCERIDE 200 mg/dl 0-200 2012 fasting Jun 04, HDL cholesterol, HDL 37 mg/dl >=35 2012 serum Jun 04, LDL cholesterol, LDL 215 mg/dl 0-129 High 2012 serum Jun 04, sodium, serum SODIUM 139 MEQ/L 353-486 5700 mmol/L Jun 04, potassium, serum POTASSIUM 4.6 [...] 2011Nov 11, sodium, serum SODIUM 141 MEQ/L 587-037 0621 mmol/L Nov 11, potassium, serum POTASSIUM 4.7 [...] Jun 04, sodium, serum SODIUM 139 MEQ/L 155-423 6740 mmol/L Jun 04, potassium, serum POTASSIUM 4.6 [...] Oct 23, sodium, serum SODIUM 141 MEQ/L 033-058 1380 mmol/L Oct 23, potassium, serum POTASSIUM 4.5 [...]
--- NOTE | 2018-07-24 10:58 | RAD REPORT ---
EXAM DESCRIPTION: CT - Abdomen Pelvis Wo Contrast - 07/24/2018 10:44 am CLINICAL HISTORY: Abdominal pain, vomiting, recent cardiac catheterization, patient pending renal tr ansplant COMPARISON: Chest film June 25, CT chest September 2016 TECHNIQUE: Axial [address] imaging of the abdomen and pelvis was performed without IV contrast. No IV contrast was given because of allergy, abnormal renal function, patient refusal or physician re quest. No oral contrast was given. All CT scans are performed using dose optimization technique as appropriate and may include automated exposure control or mA/KV adjustment according to patient size. FINDINGS: Mild right-sided moderate left-side airspace opacification present. Cardiomegaly is presen t without pericardial effusion. The liver, spleen and pancreas show no suspicious findings on non-contrast imaging. Contrast is prese nt within the lumen of the gallbladder from prior catheterization. No biliary tree dilatation. No hydronephrosis or suspicious renal mass. Multiple renal cysts are present. Dense renal vascular ca lcifications are present. Mild perinephric stranding present. No significant adrenal finding. Isodens e renal masses and pyelonephritis cannot be excluded in the absence of IV contrast. Urinary bladder i s fully contracted. Fluid is present in the stomach. No gastric dilatation or abnormal wall thickening. No small bowel di latation. There is moderate stool volume in the colon. Moderate diverticulosis of the left-side: Pres ent. No free air or pneumatosis. No focal inflammatory stranding. Trace amounts of free fluid are pre sent in the peritoneal cavity. No mass or bulky lymphadenopathy. No omental thickening. A small 2.5 c entimeter umbilical hernia is present. There is small amount of fluid present but no bowel involvemen t. Dense arterial tree calcifications are present. Iliac stenting is evident. Fluid retention is present in the subcutaneous fatty tissues. Bony degenerative changes are present. No pathologic bone process seen. IMPRESSION: No bowel obstruction, free air or surgically emergent finding. Left-sided diverticulosis is present without diverticulitis or acute GI process identifiable. Small right pleural effusion is present. Airspace opacities are present in each lung base. Fluid rete ntion is present in the subcutaneous fatty tissues. These findings are believed to be related to fail ure/ volume overload. Lung base pneumonia is not excluded but lesser in likelihood. Full assessment is limited is the absence of IV contrast.
[2018-07-24] MEDS ORDERED: MORPHINE 2 MG/ML SYR ONE (11:02)
[2018-07-24] MEDS ORDERED: ONDANSETRON 4 MG/2 ML VIAL ONE (11:03)
[2018-07-24 11:13] LABS: Absolute Lymphocytes (CBC) 0.7 K/uL (0.7-4.9); Absolute Monocytes 0.5 K/uL (0.1-1.3); Basophils % 0.7 % (0-1.3); Eosinophils % 1.6 % (0-4.4); Hematocrit 28.1 % (39.6-49.0); Lymphocytes % 11.1 % (15.3-44.8); MPV 7.1 fL (7.6-11.3); Monocytes % 7.1 % (3.3-12.3); RBC Red Blood Cell Count 3.31 M/uL (4.33-5.43)
[2018-07-24 11:31] LABS: Albumin 3.3 g/dL (3.4-5.0); Bilirubin Direct 0.2 mg/dL (0-0.2); Bilirubin Total 0.6 mg/dL (0.2-1.0); Potassium 4.5 mmol/L (3.5-5.1); Protein, Total 7.9 g/dL (6.4-8.2)
[2018-07-24 13:04] LABS: Anisocytosis 2+; Blood Morphology Comment NOTED (NOT SEEN); Platelet Estimate DECR; Urine White Blood Cell Casts OK
--- NOTE | 2018-07-24 13:46 | ER ---
Nurse's Notes [facility] Name: Chase Chacon Jr Age: 43 yrs Sex: Male : 1975 Arrival Date: 07/24/2018 Time: 09:00 Bed 7 Private MD: Kyler Ogden Diagnosis: Nausea and vomiting;Hypoxemia Presentation: 07/24 09:13 Presenting complaint: Patient states: yesterday was at [facility], had a heart cath iw because he's on list for kidney transplant, was d/c in evening, around midnight started vomiting, has had multiple episodes of vomiting, can;t tolerate water. Transition of care: patient was not received from another setting of care. Onset of symptoms was July 24, 2018. Risk Assessment: Do you want to hurt yourself or someone else? Patient reports no desire to harm self or others. Initial Sepsis Screen: Does the patient meet any 2 criteria? No. Patient's initial sepsis screen is negative. Does the patient have a suspected source of infection? No. Patient's initial sepsis screen is negative. Care prior to arrival: None. 09:13 Method Of Arrival: Ambulatory iw 09:13 Acuity: LEON 2 iw Historical: - Allergies: 09:18 Promethazine; iw - Home Meds: 09:18 tizanidine 2 mg oral tab twice a day [Active]; ropinirole 1 mg oral tab nightly iw [Active]; trazodone 100 mg Oral tab nightly [Active]; ramipril 10 mg Oral cap nightly [Active]; alprazolam 0.5 mg Oral Tb24 1 tab once daily [Active]; nifedipine 90 mg oral tr24 twice a day [Active]; - PMHx: 09:18 Diabetes - NIDDM; ESRD; Gastroparesis; Hypertension; kidney disease; Dialysis; iw - PSHx: 09:18 cataracts; iw - Immunization history:: Adult Immunizations up to date. - Social history:: Smoking status: Patient/guardian denies using tobacco. - Ebola Screening: : Patient negative for fever greater than or equal to 101.5 degrees Fahrenheit, and additional compatible Ebola Virus Disease symptoms Patient denies exposure to infectious person Patient denies travel to an Ebola-affected area in the 21 days before illness onset No symptoms or risks identified at this time. Screenin:30 Abuse screen: Denies threats or abuse. Nutritional screening: No deficits noted. [facility] Tuberculosis screening: No symptoms or risk factors identified. Fall Risk None identified. Assessment: 10:30 General: Appears comfortable, Behavior is calm, cooperative. Pain: Complains of pain in [facility] epigastric area Pain does not radiate. Pain currently is 4 out of 10 on a pain scale. Quality of pain is described as pt states "It's just discomfort" Is intermittent. Neuro: Level of Consciousness is awake, alert, obeys commands, Oriented to person, place, time, situation. Cardiovascular: Heart tones S1 S2 present Rhythm is regular Dialysis shunt: in the left forearm, with palpable thrill, with auscultated bruit, with no erythema, with no edema, no bleeding noted. Respiratory: Airway is patent Respiratory effort is even, unlabored, Respiratory pattern is regular, symmetrical, Breath sounds are clear bilaterally. GI: Abdomen is round non-distended, Bowel sounds present X 4 quads. Abd is soft and non tender X 4 quads. Reports nausea, vomiting, Patient currently denies diarrhea. : Reports only makes a small amount of urine. EENT: No signs and/or symptoms were reported regarding the EENT system. Derm: Skin is pink, warm \\T\\ dry. Musculoskeletal: Range of motion: intact in all extremities. 10:30 General: Reports last dialysis was Friday. Pt denies SOB. Pt states "Yesterday in [address] told me that my oxygen was low but I don't feel short of breath or have trouble breathing" . 11:05 Reassessment: Patient is alert, oriented x 3, equal unlabored respirations, skin aa5 warm/dry/pink. Pt refused morphine at this time. . Pain: Pain currently is 4 out of 10 on a pain scale. 12:00 Reassessment: Patient is alert, oriented x 3, equal unlabored respirations, skin aa5 warm/dry/pink. Patient denies pain at this time. 13:25 Reassessment: Patient is alert, oriented x 3, equal unlabored respirations, skin aa5 warm/dry/pink. Pt given cup of water for PO challenge per MD . 13:25 GI: Patient currently denies nausea. [facility] 13:55 Reassessment: Patient is alert, oriented x 3, equal unlabored respirations, skin aa5 warm/dry/pink. Patient denies pain at this time. Patient states feeling better. Denies nausea, pt tolerated PO challenge well, denies vomiting. Awaiting chest x-ray results, pt notified of wait time. . 15:45 Reassessment: Patient is alert, oriented x 3, equal unlabored respirations, skin aa5 warm/dry/pink. Patient denies pain at this time. Patient states feeling better. Vital Signs: 09:18 BP 150 / 81; Pulse 85; Resp 16; Temp 98.5(TE); Pulse Ox 94% on R/A; Weight 90.72 kg; iw Height 5 ft. 6 in. (167.64 cm); Pain 0/10; 11:05 aa5 11:05 BP 167 / 90; Pulse 81; Resp 18 S; Pulse Ox 91% on R/A; Pain 4/10; aa5 12:00 BP 170 / 90; Pulse 83; Resp 18 S; Pulse Ox 92% on R/A; Pain 0/10; aa5 13:00 BP 168 / 87; Pulse 83; Resp 16 S; Pulse Ox 92% on R/A; aa5 14:00 BP 178 / 86; Pulse 79; Resp 16 S; Pulse Ox 91% on R/A; aa5 15:00 BP 170 / 88; Pulse 84; Resp 18 S; Temp 98.2(O); Pulse Ox 93% on R/A; Pain 0/10; aa5 09:18 Body Mass Index 32.28 (90.72 kg, 167.64 cm) iw 11:05 Pt's O2 sat fluctuating between 83% to 93% RA, currently 91%. aa5 ED Course: 09:00 Patient arrived in ED. mr 09:00 Kyler Ogden MD is Private Physician. mr 09:16 Triage completed. iw 09:18 Arm band placed on. iw 10:07 Babak Henriquez MD is Attending Physician. kdr 10:28 Gwendolyn Foster, JENNIE is Primary Nurse. aa5 10:30 Patient has correct armband on for positive identification. Placed in gown. Bed in low aa5 position. Call light in reach. Side rails up X2. 10:43 CT completed. Patient tolerated procedure well. Patient moved to CT via stretcher. sj Patient moved back from CT. 10:44 CT Abd/Pelvis - Without Cont In Process Unspecified. EDMS 10:56 Initial lab(s) drawn, by me, sent to lab. Inserted saline lock: 22 gauge in right jb1 forearm, using aseptic technique. Blood collected. 11:14 No provider procedures requiring assistance completed. aa5 13:42 Kyler Ogden MD is Referral Physician. kdr 14:03 X-ray completed. Portable x-ray completed in exam room. Patient tolerated procedure mh1 well. 14:04 CXR XRAY In Process Unspecified. EDMS 15:45 IV discontinued, intact, bleeding controlled, No redness/swelling at site. Pressure aa5 dressing applied. Administered Medications: 11:05 Drug: Zofran 4 mg Route: IVP; Site: right femoral; aa5 11:15 Follow up: Response: No adverse reaction aa5 14:52 Not Given (Patient Refused): morphine 2 mg IVP once aa5 Outcome: 13:45 Discharge ordered by MD. kdr 15:48 Discharged to home ambulatory, with family. aa5 15:48 Condition: improved 15:48 Discharge instructions given to patient, Instructed on discharge instructions, follow up and referral plans. medication usage, Demonstrated understanding of instructions, follow-up care, medications, Prescriptions given X 2. 15:52 Patient left the ED. aa5 Signatures: Dispatcher [employer] EDMS Tal Velasquez jb1 Babak Henriquez MD MD [facility] Dailey, Rachel Powell, Blanca 1 Donny, Ching Keiry Olea RN RN iw Calderon, Audri, RN RN aa5 Corrections: (The following items were deleted from the chart) 19:34 15:45 Reassessment: Patient is alert, oriented x 3, equal unlabored respirations, skin aa5 warm/dry/pink. Patient denies pain at this time. Denies nausea, awaiting X-ray results. . aa5
--- NOTE | 2018-07-24 13:46 | EDPHYS ---
Physician Documentation [facility] Name: Chase Chacon Jr Age: 43 yrs Sex: Male : 1975 Arrival Date: 07/24/2018 Time: 09:00 Bed 7 Private MD: Kyler Ogden ED Physician Babak Henriquez HPI: 07/24 10:34 This 43 yrs old Male presents to ER via Ambulatory with complaints of kdr Nausea/Vomiting. 10:34 The patient presents to the emergency department with nausea, that is mild, vomiting, kdr that is intermittent, abdominal pain, of the epigastric area. Onset: The symptoms/episode began/occurred gradually, last night. Possible causes: unknown. The symptoms are aggravated by nothing. The symptoms are alleviated by nothing. Associated signs and symptoms: Pertinent positives: abdominal pain. Severity of symptoms: At their worst the symptoms were mild in the emergency department the symptoms are unchanged. The patient has experienced similar episodes in the past, a few times. The patient has not recently seen a physician. Historical: - Allergies: 09:18 Promethazine; iw - Home Meds: 09:18 tizanidine 2 mg oral tab twice a day [Active]; ropinirole 1 mg oral tab nightly iw [Active]; trazodone 100 mg Oral tab nightly [Active]; ramipril 10 mg Oral cap nightly [Active]; alprazolam 0.5 mg Oral Tb24 1 tab once daily [Active]; nifedipine 90 mg oral tr24 twice a day [Active]; - PMHx: 09:18 Diabetes - NIDDM; ESRD; Gastroparesis; Hypertension; kidney disease; Dialysis; iw - PSHx: 09:18 cataracts; iw - Immunization history:: Adult Immunizations up to date. - Social history:: Smoking status: Patient/guardian denies using tobacco. - Ebola Screening: : Patient negative for fever greater than or equal to 101.5 degrees Fahrenheit, and additional compatible Ebola Virus Disease symptoms Patient denies exposure to infectious person Patient denies travel to an Ebola-affected area in the 21 days before illness onset No symptoms or risks identified at this time. ROS: 10:34 Constitutional: Negative for fever, chills, and weight loss, Eyes: Negative for injury, kdr pain, redness, and discharge, Neck: Negative for injury, pain, and swelling, Cardiovascular: Negative for chest pain, palpitations, and edema, Respiratory: Negative for shortness of breath, cough, wheezing, and pleuritic chest pain, Back: Negative for injury and pain, : Negative for injury, bleeding, discharge, and swelling, MS/Extremity: Negative for injury and deformity, Skin: Negative for injury, rash, and discoloration, Neuro: Negative for headache, weakness, numbness, tingling, and seizure activity. Psych: Negative for depression, anxiety, suicide ideation, homicidal ideation, and hallucinations, Allergy/Immunology: Negative for hives, rash, and allergies, Endocrine: Negative for neck swelling, polydipsia, polyuria, polyphagia, and marked weight changes, Hematologic/Lymphatic: Negative for swollen nodes, abnormal bleeding, and unusual bruising. 10:34 Abdomen/GI: Positive for abdominal pain, nausea and vomiting, Negative for constipation, abdominal cramps, abdominal distension, anorexia, dysphagia, hematemesis, black/tarry stool, rectal pain, rectal bleeding, bowel incontinence. Exam: 10:34 Constitutional: This is a well developed, well nourished patient who is awake, alert, kdr and in no acute distress. Head/Face: Normocephalic, atraumatic. Eyes: Pupils equal round and reactive to light, extra-ocular motions intact. Lids and lashes normal. Conjunctiva and sclera are non-icteric and not injected. Cornea within normal limits. Periorbital areas with no swelling, redness, or edema. Neck: Trachea midline, no thyromegaly or masses palpated, and no cervical lymphadenopathy. Supple, full range of motion without nuchal rigidity, or vertebral point tenderness. No Meningismus. Chest/axilla: Normal chest wall appearance and motion. Nontender with no deformity. No lesions are appreciated. Cardiovascular: Regular rate and rhythm with a normal S1 and S2. No gallops, murmurs, or rubs. Normal PMI, no JVD. No pulse deficits. Respiratory: Lungs have equal breath sounds bilaterally, clear to auscultation and percussion. No rales, rhonchi or wheezes noted. No increased work of breathing, no retractions or nasal flaring. Back: No spinal tenderness. No costovertebral tenderness. Full range of motion. Skin: Warm, dry with normal turgor. Normal color with no rashes, no lesions, and no evidence of cellulitis. MS/ Extremity: Pulses equal, no cyanosis. Neurovascular intact. Full, normal range of motion. Neuro: Awake and alert, GCS 15, oriented to person, place, time, and situation. Cranial nerves II-XII grossly intact. Motor strength 5/5 in all extremities. Sensory grossly intact. Cerebellar exam normal. Normal gait. Psych: Awake, alert, with orientation to person, place and time. Behavior, mood, and affect are within normal limits. 10:34 Abdomen/GI: Inspection: abdomen appears normal, Bowel sounds: diminished, Palpation: soft, mild abdominal tenderness, in the epigastric area, rebound tenderness, is not appreciated, voluntary guarding, is not appreciated. Vital Signs: 09:18 BP 150 / 81; Pulse 85; Resp 16; Temp 98.5(TE); Pulse Ox 94% on R/A; Weight 90.72 kg; iw Height 5 ft. 6 in. (167.64 cm); Pain 0/10; 11:05 aa5 11:05 BP 167 / 90; Pulse 81; Resp 18 S; Pulse Ox 91% on R/A; Pain 4/10; aa5 12:00 BP 170 / 90; Pulse 83; Resp 18 S; Pulse Ox 92% on R/A; Pain 0/10; aa5 13:00 BP 168 / 87; Pulse 83; Resp 16 S; Pulse Ox 92% on R/A; aa5 14:00 BP 178 / 86; Pulse 79; Resp 16 S; Pulse Ox 91% on R/A; aa5 15:00 BP 170 / 88; Pulse 84; Resp 18 S; Temp 98.2(O); Pulse Ox 93% on R/A; Pain 0/10; aa5 09:18 Body Mass Index 32.28 (90.72 kg, 167.64 cm) iw 11:05 Pt's O2 sat fluctuating between 83% to 93% RA, currently 91%. aa5 MDM: 10:34 Data reviewed: vital signs, nurses notes, lab test result(s). Counseling: I had a kdr detailed discussion with the patient and/or guardian regarding: the historical points, exam findings, and any diagnostic results supporting the discharge/admit diagnosis, lab results, radiology results, the need for outpatient follow up. 13:39 ED course: The patient continues to have oxygen saturation around 90% +/- 2 - 3%. He is kdr standing at bedside completely asymptomatic. He is feeling better and taking PO without problem now. He has no other c/o and feels that he is at his baseline. 13:45 Patient medically screened. [facility] 07/24 10:28 Order name: Basic Metabolic Panel; Complete Time: 12:58 kdr 07/24 10:28 Order name: CBC with Diff; Complete Time: 13:13 kdr 07/24 10:28 Order name: Creatinine for Radiology; Complete Time: 12:58 kdr 07/24 10:28 Order name: Hepatic Function; Complete Time: 12:58 kdr 07/24 10:28 Order name: Lipase; Complete Time: 12:58 [facility] 07/24 13:04 Order name: CBC Smear Scan; Complete Time: 13:13 EDMS 07/24 10:28 Order name: IV Saline Lock; Complete Time: 10:57 [facility] 07/24 10:28 Order name: Labs collected and sent; Complete Time: 10:57 [facility] 07/24 10:28 Order name: CT Abd/Pelvis - Without Cont; Complete Time: 12:58 [facility] 07/24 13:29 Order name: PO challenge; Complete Time: 13:56 aa5 07/24 13:33 Order name: CXR XRAY; Complete Time: 15:23 kdr Administered Medications: 11:05 Drug: Zofran 4 mg Route: IVP; Site: right femoral; aa5 11:15 Follow up: Response: No adverse reaction aa5 14:52 Not Given (Patient Refused): morphine 2 mg IVP once aa5 Disposition: 07/24/18 13:45 Discharged to Home. Impression: Nausea and vomiting, Hypoxemia. - Condition is Stable. - Discharge Instructions: Nausea and Vomiting, Adult, Bodv-or-Wvpe, Hypoxemia. - Prescriptions for Zofran 4 mg Oral Tablet - take 1 tablet by ORAL route every 4-6 hours As needed; 10 tablet. Pepcid 20 mg Oral Tablet - take 1 tablet by ORAL route every 12 hours for 5 days; 10 tablet. - Medication Reconciliation Form, Thank You Letter form. - Follow up: Kyler Ogden MD; When: 2 - 3 days; Reason: If symptoms return, Further diagnostic work-up, Recheck today's complaints, Continuance of care, Re-evaluation by your physician. - Problem is new. - Symptoms have improved. - Notes: Follow-up with Dr. Ogden at your earliest convenience Signatures: Dispatcher [employer] EDBabak Mederos MD MD kdr Keiry Olea RN RN iw Gwendolyn Foster RN RN aa5 Corrections: (The following items were deleted from the chart) 13:45 13:45 07/24/2018 13:45 Discharged to Home. Impression: Nausea and vomiting; Hypoxemia. kdr Condition is Stable. Forms are Medication Reconciliation Form, Thank You Letter, Antibiotic Education, Prescription Opioid Use. Follow up: Kyler Ogden; When: 2 - 3 days; Reason: If symptoms return, Further diagnostic work-up, Recheck today's complaints, Continuance of care, Re-evaluation by your physician. kdr 15:52 13:45 07/24/2018 13:45 Discharged to Home. Impression: Nausea and vomiting; Hypoxemia. aa5 Condition is Stable. Forms are Medication Reconciliation Form, Thank You Letter, Antibiotic Education, Prescription Opioid Use. Follow up: Kyler Ogden; When: 2 - 3 days; Reason: If symptoms return, Further diagnostic work-up, Recheck today's complaints, Continuance of care, Re-evaluation by your physician. Problem is new. Symptoms have improved. kdr
--- NOTE | 2018-07-24 14:19 | RAD REPORT ---
EXAM DESCRIPTION: RAD - Chest Single View - 07/24/2018 2:04 pm CLINICAL HISTORY: Hypoxia, history of heart catheterization recently performed, vomiting, shortness of breath COMPARISON: June 25 TECHNIQUE: AP portable chest image was obtained 1355 hours . FINDINGS: No dense consolidation or mass. Heart size is upper normal, similar to comparison. Vascula r engorgement is present. Interstitial markings are prominent. Trachea is midline. No measurable pleu ral effusion and no pneumothorax. No acute bony abnormality seen. No acute aortic findings suspected. IMPRESSION: Mild CHF/volume overload pattern is present slightly less severe than seen June 25.
== END 2018-07-24 15:52 | disposition home or self-care (01) ==
LOC: ER 08:51
DX: R11.2 Nausea with vomiting, unspecified (principal); R09.02 Hypoxemia; E11.22 Type 2 diabetes mellitus with diabetic chronic kidney disease; I12.0 Hypertensive chronic kidney disease with stage 5 chronic kidney disease or end stage renal disease; N18.6 End stage renal disease; Z99.2 Dependence on renal dialysis; Z88.8 Allergy status to other drugs, medicaments and biological substances
CPT/HCPCS: 85025; 80048; 36415; 80076; 83690; 74176; 71045; 96374; 99284; J2405; J2270

== ENCOUNTER 2018-08-02 18:41 | Inpatient (IN) | payer OTHER ==
--- OUTSIDE RECORDS SUMMARY | 2018-08-02 18:43 | XMS REPORT | Clinical Summary ---
:1975 Author Organization [facility] Address [address] [place] [address] Care Team Providers Name Role Phone Unavailable [...] kidney disease on chronic dialysis, unspecified whether roasterman insulin use (HCC); Hypertensive renal disease 10/06/2017 [...] Frazier 09/12/2017 Abstract Transplant Marianne Frazier after 08/01/2017 Social History Tobacco Use Types Packs/Day Years [...] Not on file Results Not on fileafter 08/01/2017 Insurance Payer Benefit Plan / Group Subscriber ID Type Phone Address MEDICARE MEDICARE A B xxxxxxxxxx Medicare [employer] C[employer] ALL xxxxxxxxxx [facility] Contracted
--- OUTSIDE RECORDS SUMMARY | 2018-08-02 18:44 | XMS REPORT | Continuity of Care Document ---
[...] 08/31/2013 Medical Group Weight 202 06/02/2012 Medical [facility] Height 66 06/02/2012 [facility] Temperature Oral (F) 98.4 F 06/02/2012 Medical [facility] Heart Rate 100 06/02/2012 [facility] Systolic (mm Hg) 131 06/02/2012 Medical [facility] Diastolic (mm Hg) 78 06/02/2012 Medical [facility] Encounters Location Location Encounter Encounter Reason Attending ADM DC Status Source Details Type Number For Provider Date Date Visit [facility] Office [id number] Oralia Gao, 08/31 08/31 [place] Visit 320 /2013 [facility] Cardiology [address] [facility] Office [id number] Lyric 09/08 09/08 [place] Visit 420 MD Javier /2013 [facility] 9305 [facility] Lab Report [id number] Lyric 02/23 02/23 JACKIE Peoples 570 [facility] Office [id number] Elmer 09/07 09/07 [place] Visit 320 MD Lupillo /2014 [facility] Procedures Procedure Code Date Perfomer Comments Source
--- OUTSIDE RECORDS SUMMARY | 2018-08-02 18:45 | XMS REPORT | Continuity of Care Document ---
:1975 Author Organization [facility] Care Team Providers Name Role Phone MD Javier, Lyric Unavailable Unavailable Insurance Providers Payer name Policy type / Policy ID Covered libertarian ID Policy Laws Coverage type MHEALTH - [facility] EDGE [employer] - [facility] MEDICARE [place]: [email or web address] - [facility] EDG [employer] - [facility] EDG Phybridge - MHHS EDG Phybridge - MHHS EDG Phybridge - MHHS EDG Phybridge - MHHS EDG Phybridge - MHHS EDG Phybridge - MHHS EDG Phybridge - MHHS EDG Ph[employer] - [facility] EDG [employer] - [facility] EDG [employer] - MHEALTH [employer] - [facility] EDG [employer] - [facility] EDG [employer] - [facility] EDG [employer] - [facility] EDG [employer] - [facility] EDG Encounters Encounter Performer Location Date Office Visit Lyric Herrera MD [facility] Sep 08, 2013 9305 Problems Problem Effective [...] 2012Jun 04, platelet count PLATELETS 289 K/CMM 801-446 1739 /mm3 Jun 04, hemoglobin, blood HGB 7.9 g/dL 14.0-18.0 Low 2012Jun 04, hematocrit, blood HCT 23.7 % 42.0-54.0 Low 2012Jun 04, platelet count PLATELETS 289 K/CMM 123-629 5726 /mm3 Oct 23, hemoglobin, blood HGB 13.2 g/dL 14.0-18.0 Low 2012Oct 23, hematocrit, blood HCT 41.5 % 42.0-54.0 Low 2012Oct 23, platelet count PLATELETS 217 K/CMM 318-545 2205 /mm3 Jun 04, hemoglobin A1C, HGBA1C 5.1 % 2012 blood, as % of total hemoglobin Jun 04, cholesterol, serum CHOLESTEROL 292 mg/dl 120-200 High 2012Jun 04, triglyceride, serum, TRIGLYCERIDE 200 mg/dl 0-200 2012 fasting Jun 04, HDL cholesterol, HDL 37 mg/dl >=35 2012Jun 04, LDL cholesterol, LDL 215 mg/dl 0-129 High 2012Jun 04, sodium, serum SODIUM 139 MEQ/L 975-175 5302 mmol/L Jun 04, potassium, serum POTASSIUM 4.6 [...] 2011Nov 11, sodium, serum SODIUM 141 MEQ/L 994-205 3676 mmol/L Nov 11, potassium, serum POTASSIUM 4.7 [...] 2012Jun 04, sodium, serum SODIUM 139 MEQ/L 766-370 3014 mmol/L Jun 04, potassium, serum POTASSIUM 4.6 [...] Oct 23, sodium, serum SODIUM 141 MEQ/L 312-695 0533 mmol/L Oct 23, potassium, serum POTASSIUM 4.5 [...]
--- OUTSIDE RECORDS SUMMARY | 2018-08-02 18:45 | XMS REPORT | Continuity of Care Document ---
:1975 Author Organization [facility] [employer] [facility] Care Team Providers Name Role Phone MD Murray, Oralia Unavailable Unavailable Insurance Providers Payer name Policy type / Policy ID Covered constitution party ID Policy Laws Coverage type MHEALTH - [facility] EDGE [employer] - [facility] MEDICARE [place]: [employer] - [employer] EDG Xeros - [employer]HS EDG Xeros - [employer]HS EDG Xeros - HS EDG Xeros - HS EDG Xeros - HS EDG Xeros - HS EDG Xeros - HS EDG Encounters Encounter Performer Location Date Office Visit Oralia Gao MD [facility] Aug 31, 2013 Cardiology [...] 2012Jun 04, platelet count PLATELETS 289 K/CMM 628-883 5019 /mm3 Jun 04, hemoglobin, blood HGB 7.9 g/dL 14.0-18.0 Low 2012Jun 04, hematocrit, blood HCT 23.7 % 42.0-54.0 Low 2012Jun 04, platelet count PLATELETS 289 K/CMM 064-393 5948 /mm3 Oct 23, hemoglobin, blood HGB 13.2 g/dL 14.0-18.0 Low 2012Oct 23, hematocrit, blood HCT 41.5 % 42.0-54.0 Low 2012Oct 23, platelet count PLATELETS 217 K/CMM 630-849 4605 /mm3 Jun 04, hemoglobin A1C, HGBA1C 5.1 % 2012 blood, as % of total hemoglobin Jun 04, cholesterol, serum CHOLESTEROL 292 mg/dl 120-200 High 2012Jun 04, triglyceride, serum, TRIGLYCERIDE 200 mg/dl 0-200 2012 fasting Jun 04, HDL cholesterol, HDL 37 mg/dl >=35 2012Jun 04, LDL cholesterol, LDL 215 mg/dl 0-129 High 2012Jun 04, sodium, serum SODIUM 139 MEQ/L 513-729 9633 mmol/L Jun 04, potassium, serum POTASSIUM 4.6 [...] 2011Nov 11, sodium, serum SODIUM 141 MEQ/L 706-350 3297 mmol/L Nov 11, potassium, serum POTASSIUM 4.7 [...] 2012Jun 04, sodium, serum SODIUM 139 MEQ/L 693-085 4508 mmol/L Jun 04, potassium, serum POTASSIUM 4.6 [...] Oct 23, sodium, serum SODIUM 141 MEQ/L 969-763 3297 mmol/L Oct 23, potassium, serum POTASSIUM 4.5 [...]
--- OUTSIDE RECORDS SUMMARY | 2018-08-02 18:45 | XMS REPORT | Continuity of Care Document ---
:1975 Author Organization [facility] [employer] [facility] Care Team Providers Name Role Phone MD Lupillo, Elmer Unavailable Unavailable Insurance Providers Payer name Policy type / Policy ID Covered green party ID Policy Laws Coverage type MHEALTH - [facility] EDGE [employer] - [facility] EDG MEDICARE [place]: [employer]OV[employer] - [facility] EDG Treatful - [facility] EDG Treatful - [facility] EDG Treatful - MH[facility] EDG Treatful - MHHS EDG Treatful - MHHS EDG Treatful - MHHS EDG Treatful - MHHS EDG Treatful - MHHS EDG Treatful - MHHS EDG Treatful - MHHS EDG Treatful - MHEALTH Treatful - [facility] EDG Treatful - [facility] EDG Treatful - [facility] EDG Treat[employer] - [facility] EDG Treatful - [facility] EDG Treatful - MHEALTH [employer] - [facility] EDG Treatful - [facility] EDG Treatful - [facility] EDG Encounters Encounter Performer Location Date Office Visit Elmer Wesley MD [facility] [employer] [facility] Sep 07, 2014 Problems Problem Effective [...] SOLOSTAR 100 UNIT/ML 18 units at bedtime oh Dec 06, 2011 Active SOLN ACCU-CHEK FERNANDA [...] 2012Jun 04, platelet count PLATELETS 289 K/CMM 429-430 0411 /mm3 Jun 04, hemoglobin, blood HGB 7.9 g/dL 14.0-18.0 Low 2012Jun 04, hematocrit, blood HCT 23.7 % 42.0-54.0 Low 2012Jun 04, platelet count PLATELETS 289 K/CMM 398-069 3165 /mm3 Oct 23, hemoglobin, blood HGB 13.2 g/dL 14.0-18.0 Low 2012Oct 23, hematocrit, blood HCT 41.5 % 42.0-54.0 Low 2012Oct 23, platelet count PLATELETS 217 K/CMM 547-604 7284 /mm3 Jun 04, hemoglobin A1C, HGBA1C 5.1 % 2012 blood, as % of total hemoglobin Jun 04, cholesterol, serum CHOLESTEROL 292 mg/dl 120-200 High 2012Jun 04, triglyceride, serum, TRIGLYCERIDE 200 mg/dl 0-200 2012 fasting Jun 04, HDL cholesterol, HDL 37 mg/dl >=35 2012 serum Jun 04, LDL cholesterol, LDL 215 mg/dl 0-129 High 2012 serum Jun 04, sodium, serum SODIUM 139 MEQ/L 274-397 4898 mmol/L Jun 04, potassium, serum POTASSIUM 4.6 [...] 2011Nov 11, sodium, serum SODIUM 141 MEQ/L 948-247 0250 mmol/L Nov 11, potassium, serum POTASSIUM 4.7 [...] 2012Jun 04, sodium, serum SODIUM 139 MEQ/L 062-251 4125 mmol/L Jun 04, potassium, serum POTASSIUM 4.6 [...] Oct 23, sodium, serum SODIUM 141 MEQ/L 699-158 1019 mmol/L Oct 23, potassium, serum POTASSIUM 4.5 [...]
--- OUTSIDE RECORDS SUMMARY | 2018-08-02 18:46 | XMS REPORT ---
:1975 [facility] [address] [place] [address] Dr. Leon [address] [place] [id number] Care Team Providers Name Role Phone Unavailable Unavailable Unavailable Problems This patient has no known problems. Allergies, Adverse Reactions, Alerts This patient has no known allergies or adverse reactions. Medications This patient has no known medications. Encounters Start End Encounter Admission Attending Care Care Encounter Date/Time Date/Time Type Type Clinicians Facility Department ID 2018-06-22 Inpatient [facility] 3214 07:53:49 2018-06-22 Outpatient [facility] [id number] 07:53:48
--- OUTSIDE RECORDS SUMMARY | 2018-08-02 18:46 | XMS REPORT | Continuity of Care Document ---
:1975 [facility] Team Providers Name Role Phone MD Javier, Lyric Unavailable Unavailable Insurance Providers Payer name Policy type / Policy ID Covered republican ID Policy Laws Coverage type MHEALTH - [facility] EDGE [place] - [facility]G MEDICARE [place]: NOVITAS [employer] - [facility] EDG [place] - [facility] EDG [place] - [facility] EDG [place] - [facility] EDG [place] - [facility] EDG [place] - [facility] EDG [place] - MH[facility] EDG [place] - MHHS EDG [place] - MHHS EDG [place] - MHHS EDG [place] - [facility] EDG [place] - [facility]ALTH [place] - [facility] EDG [place] - [facility] EDG [place] - [facility] EDG [place] - [facility] EDG [place] - [facility]G Encounters Encounter Performer Location Date Lab Report Lyric Herrera MD [facility] Feb 23, 2014 Problems Problem Effective Dates [...] 2012Jun 04, platelet count PLATELETS 289 K/CMM [phone] /mm3 Jun 04, hemoglobin, blood HGB 7.9 g/dL 14.0-18.0 Low 2012Jun 04, hematocrit, blood HCT 23.7 % 42.0-54.0 Low 2012Jun 04, platelet count PLATELETS 289 K/CMM 074-235 2966 /mm3 Oct 23, hemoglobin, blood HGB 13.2 g/dL 14.0-18.0 Low 2012Oct 23, hematocrit, blood HCT 41.5 % 42.0-54.0 Low 2012Oct 23, platelet count PLATELETS 217 K/CMM 455-278 3560 /mm3 Jun 04, hemoglobin A1C, HGBA1C 5.1 % 2012 blood, as % of total hemoglobin Jun 04, cholesterol, serum CHOLESTEROL 292 mg/dl 120-200 High 2012Jun 04, triglyceride, serum, TRIGLYCERIDE 200 mg/dl 0-200 2012 fasting Jun 04, HDL cholesterol, HDL 37 mg/dl >=35 2012 serum Jun 04, LDL cholesterol, LDL 215 mg/dl 0-129 High 2012 serum Jun 04, sodium, serum SODIUM 139 MEQ/L 597-015 1010 mmol/L Jun 04, potassium, serum POTASSIUM 4.6 [...] 2011Nov 11, sodium, serum SODIUM 141 MEQ/L 242-264 2600 mmol/L Nov 11, potassium, serum POTASSIUM 4.7 [...] Jun 04, sodium, serum SODIUM 139 MEQ/L 426-686 1050 mmol/L Jun 04, potassium, serum POTASSIUM 4.6 [...] Oct 23, sodium, serum SODIUM 141 MEQ/L 534-150 9477 mmol/L Oct 23, potassium, serum POTASSIUM 4.5 [...]
--- NOTE | 2018-08-02 19:59 | RAD REPORT ---
EXAM DESCRIPTION: RAD - Chest Single View - 08/02/2018 7:48 pm CLINICAL HISTORY: SOB Chest pain. COMPARISON: Chest Single View dated 07/24/2018; Chest Single View dated 06/25/2018; Abdomen Acute Seri es dated 02/27/2018; Chest Single View dated 02/18/2018 FINDINGS: Portable technique limits examination quality. Moderate bilateral pulmonary opacities are noted, greater on the left, which may represent pulmonary edema or pneumonia. The heart is mildly to moderately enlarged in size. No displaced fractures.
[2018-08-02 20:04] LABS: Absolute Lymphocytes (CBC) 0.5 K/uL (0.7-4.9); RBC Red Blood Cell Count 3.27 M/uL (4.33-5.43)
[2018-08-02 20:09] LABS: Absolute Monocytes 0.5 K/uL (0.1-1.3); Absolute Neutrophil 7.2 K/uL (1.8-8.0); Basophils % 0.6 % (0-1.3); Eosinophils % 2.5 % (0-4.4); Lymphocytes % 5.8 % (15.3-44.8); MPV 7.6 fL (7.6-11.3); Monocytes % 6.4 % (3.3-12.3)
[2018-08-02 20:11] LABS: Protime INR 1.11
[2018-08-02] MEDS ORDERED: HYDRALAZINE HCL 20 MG/ML VIAL ONE (20:40)
[2018-08-02 20:41] LABS: ALT/SGPT 30 U/L (12-78); AST/SGOT 10 U/L (15-37); Albumin 3.4 g/dL (3.4-5.0); Alkaline Phosphatase 126 U/L (45-117); BUN Blood Urea Nitrogen 55 mg/dL (7-18); Bicarbonate 26 mmol/L (21-32); Bilirubin Direct 0.3 mg/dL (0-0.2); Bilirubin Total 0.7 mg/dL (0.2-1.0); CKMB Creatine Kinase MB 1.5 ng/mL (0.3-3.6); Creatine Phosphokinase 72 U/L (39-308); Glucose Level 104 mg/dL (74-106); Lipase 207 U/L (73-393); Magnesium 2.4 mg/dL (1.8-2.4); NT PRO-BNP 29082 pg/mL (<125); Platelet Estimate ADEQ; Potassium 4.6 mmol/L (3.5-5.1); Protein, Total 8.3 g/dL (6.4-8.2); Sodium Level 140 mmol/L (136-145); Troponin (Emerg Dept Use Only) < 0.02 ng/mL (0.0-0.045); Urine White Blood Cell Casts OK
[2018-08-02 20:42] LABS: Anisocytosis 1+; Blood Morphology Comment NOTED (NOT SEEN)
[2018-08-02] MEDS ORDERED: ONDANSETRON 4 MG/2 ML VIAL ONE (20:51)
[2018-08-02] MEDS ORDERED: BENZONATATE 100 MG CAP PO ONE (20:51)
--- NOTE | 2018-08-02 21:12 | ER ---
Nurse's Notes [facility] Name: Chase Chacon Jr Age: 43 yrs Sex: Male : 1975 Arrival Date: 08/02/2018 Time: 18:43 Bed 19 [facility] MD: Diagnosis: Acute pulmonary edema;Hypertensive heart and chronic kidney disease Presentation: 08/02 19:02 Presenting complaint: Patient states: Persistent cough since Fri, also reports N/V ph after coughing spells and 1 episode of diarrhea. Transition of care: patient was not received from another setting of care. Onset of symptoms was August 02, 2018. Risk Assessment: Do you want to hurt yourself or someone else? Patient reports no desire to harm self or others. Initial Sepsis Screen: Does the patient meet any 2 criteria? No. Patient's initial sepsis screen is negative. Does the patient have a suspected source of infection? Yes: Productive cough/pneumonia. Care prior to arrival: None. 19:02 Method Of Arrival: Ambulatory 19:02 Acuity: LEON 3 ph Historical: - Allergies: 19:05 Promethazine; ph - Home Meds: 22:36 alprazolam 0.5 mg Oral Tb24 1 tab once daily [Active]; nifedipine 90 mg Oral tr24 twice lp1 a day [Active]; Novolog Sub-Q 10 10 UNITS AM, 15 UNITS LUNCH AND 10 UNITS AT NIGHT [Active]; ramipril 10 mg Oral cap nightly [Active]; ropinirole Oral once daily [Active]; ropinirole 1 mg Oral tab nightly [Active]; tizanidine 2 mg Oral tab twice a day [Active]; trazodone 100 mg Oral tab nightly [Active]; - PMHx: 19:05 Diabetes - NIDDM; Dialysis; ESRD; Gastroparesis; Hypertension; kidney disease; ph - PSHx: 19:05 cataracts; ph - Immunization history:: Adult Immunizations up to date. - Ebola Screening: : No symptoms or risks identified at this time. - Social history:: Smoking status: Patient/guardian denies using tobacco. Screenin:31 Abuse screen: Denies threats or abuse. Denies injuries from another. Nutritional lp1 screening: No deficits noted. Tuberculosis screening: No symptoms or risk factors identified. Fall Risk None identified. Assessment: 19:28 General: Appears uncomfortable, Behavior is calm, cooperative, appropriate for age. lp1 Pain: Denies pain. Neuro: Level of Consciousness is awake, alert, obeys commands, Oriented to person, place, time, situation. Cardiovascular: Patient's skin is warm and dry. Dialysis shunt: in the dorsal aspect of left forearm. Respiratory: Reports cough that is non-productive, Airway is patent Respiratory effort is even, labored, Breath sounds are clear bilaterally. Onset: The symptoms/episode began/occurred gradually, the patient has mild shortness of breath. GI: Abdomen is non-distended, Reports Vomiting after coughing episodes. : No signs and/or symptoms were reported regarding the genitourinary system. EENT: No signs and/or symptoms were reported regarding the EENT system. Derm: Skin is intact, Skin is dry, Skin is normal. Musculoskeletal: No deficits noted. 20:16 Reassessment: Patient appears in no apparent distress at this time. CRITICAL LAB ca1 RESULT: D-DIMER 903, call received by JENNIE Swift. Provider notified. 20:30 Reassessment: Patient appears in no apparent distress at this time. Patient is alert, ca1 oriented x 3, equal unlabored respirations, skin warm/dry/pink. 20:38 Reassessment: Pt coughing and vomiting. Notified provider. Orders given. Medications ca1 administered. 20:41 Reassessment: Wheeled pt to restroom via wheelchair with O2 on. Pt defecated and ca1 reported scant loose stool. 21:34 Reassessment: Patient appears in no apparent distress at this time. Patient and/or ca1 family updated on plan of care and expected duration. Pain level reassessed. Patient is alert, oriented x 3, equal unlabored respirations, skin warm/dry/pink. at bedside. 22:35 Reassessment: Patient appears in no apparent distress at this time. Patient and/or ca1 family updated on plan of care and expected duration. Pain level reassessed. Patient is alert, oriented x 3, equal unlabored respirations, skin warm/dry/pink. Vital Signs: 19:04 BP 135 / 119; Pulse 113; Resp 22; Temp 98.0; Pulse Ox 98% on R/A; Weight 88.2 kg; ph 19:20 Pulse Ox 90% on R/A; lp1 19:30 BP 209 / 101; Pulse 93; Resp 22; Temp 99.7(O); Pulse Ox 96% on 2 lpm NC; lp1 20:30 BP 194 / 94; Pulse 100; Resp 24; Pulse Ox 94% on 2 lpm NC; lp1 21:00 BP 189 / 88; Pulse 99; Resp 19; Pulse Ox 92% on 2 lpm NC; lp1 22:00 BP 189 / 92; Pulse 97; Resp 21; Pulse Ox 92% on 2 lpm NC; lp1 22:30 BP 180 / 89; Pulse 96; Resp 21; Pulse Ox 96% on 3 lpm NC; lp1 ED Course: 18:43 Patient arrived in ED. tw3 19:04 Triage completed. ph 19:05 Arm band placed on Patient placed in an exam room, on pulse oximetry. ph 19:07 Sahara Mondragon RN is Primary Nurse. lp1 19:13 Missed attempt(s): 20 gauge wrist. 5 19:17 Chandan Becerril MD is Attending Physician. tw4 19:20 Inserted saline lock: 22 gauge in right forearm, using aseptic technique. Blood lp1 collected. 19:31 Patient has correct armband on for positive identification. Placed in gown. Bed in low lp1 position. Call light in reach. 19:48 XRAY CXR (1 view) In Process Unspecified. EDMS 20:05 Notified ED physician of a critical lab result(s). D-Dimer 903 Notified primary nurse jb4 of Critical lab D-dimer 903. 20:30 Report given to JENNIE Esparza. lp1 21:08 Laura Purdy MD is Hospitalizing Provider. tw4 22:35 No provider procedures requiring assistance completed. Patient admitted, IV remains in lp1 place. Administered Medications: 20:26 Drug: hydrALAZINE 20 mg Route: IV; Rate: bolus; Site: right forearm; ca1 22:44 Follow up: Response: Blood pressure is lowered lp1 22:51 Follow up: Response: No adverse reaction; Blood pressure is lowered; IV Status: ca1 Completed infusion 20:38 Drug: Zofran 4 mg Route: IVP; Site: right forearm; ca1 22:46 Follow up: Response: Marked relief of symptoms lp1 20:55 Drug: Tessalon Perle 200 mg Route: PO; ca1 22:45 Follow up: Response: Marked relief of symptoms lp1 Outcome: 21:11 Decision to Hospitalize by Provider. tw4 22:35 Condition: stable lp1 22:35 Instructed on the need for admit. 22:52 Admitted to Tele accompanied by tech, room 426, with oxygen, with chart, Report called lp1 to JENNIE Dorado 22:54 Patient left the ED. lp1 Signatures: Dispatcher [employer] EDSahara Leo RN RN lp1 Essie Canales RN RN Jimmy Martinez, JENNIE RN jb4 Natalie Swan 5 Monica Travis tw3 Chandan Becerril MD MD tw4 Vilma Gomez RN RN ca1 Corrections: (The following items were deleted from the chart) 22:36 22:35 Social history: Smoking status: lp1 lp1 22:42 22:30 BP 180 / 89; Pulse 96bpm; Resp 21bpm; Pulse Ox 93% 2 lpm Nasal Cannula; lp1 lp1 23:03 21:34 Reassessment: Patient appears in no apparent distress at this time. Patient ca1 and/or family updated on plan of care and expected duration. Pain level reassessed. Patient is alert, oriented x 3, equal unlabored respirations, skin warm/dry/pink. ca1
--- NOTE | 2018-08-02 21:12 | EDPHYS ---
Physician Documentation [facility] Name: Chase Chacon Jr Age: 43 yrs Sex: Male : 1975 Arrival Date: 08/02/2018 Time: 18:43 Bed 19 Private MD: ED Physician Chandan Becerril HPI: 08/03 06:18 This 43 yrs old Male presents to ER via Ambulatory with complaints of tw4 Breathing Difficulty. 06:18 The patient has shortness of breath at rest. Onset: The symptoms/episode began/occurred tw4 1 week(s) ago. Duration: The symptoms are continuous, and are unchanged since they started. The patient's shortness of breath has no apparent modifying factors. Severity of symptoms: At their worst the symptoms were moderate in the emergency department the symptoms are unchanged. Historical: - Allergies: 08/02 19:05 Promethazine; ph - Home Meds: 22:36 alprazolam 0.5 mg Oral Tb24 1 tab once daily [Active]; nifedipine 90 mg Oral tr24 twice lp1 a day [Active]; Novolog Sub-Q 10 10 UNITS AM, 15 UNITS LUNCH AND 10 UNITS AT NIGHT [Active]; ramipril 10 mg Oral cap nightly [Active]; ropinirole Oral once daily [Active]; ropinirole 1 mg Oral tab nightly [Active]; tizanidine 2 mg Oral tab twice a day [Active]; trazodone 100 mg Oral tab nightly [Active]; - PMHx: 19:05 Diabetes - NIDDM; Dialysis; ESRD; Gastroparesis; Hypertension; kidney disease; ph - PSHx: 19:05 cataracts; ph - Immunization history:: Adult Immunizations up to date. - Ebola Screening: : No symptoms or risks identified at this time. - Social history:: Smoking status: Patient/guardian denies using tobacco. ROS: 08/03 06:18 Constitutional: Negative for fever, chills, and weight loss, Eyes: Negative for injury, tw4 pain, redness, and discharge, Cardiovascular: Negative for chest pain, palpitations, and edema. Abdomen/GI: Negative for abdominal pain, nausea, vomiting, diarrhea, and constipation, Back: Negative for injury and pain, MS/Extremity: Negative for injury and deformity, Skin: Negative for injury, rash, and discoloration. Respiratory: Positive for cough, shortness of breath, Negative for dyspnea on exertion, hemoptysis, orthopnea, pleurisy. Exam: 06:18 Constitutional: This is a well developed, well nourished patient who is awake, alert, tw4 and in no acute distress. Head/Face: Normocephalic, atraumatic. Chest/axilla: Normal chest wall appearance and motion. Nontender with no deformity. No lesions are appreciated. Cardiovascular: Regular rate and rhythm with a normal S1 and S2. No gallops, murmurs, or rubs. Normal PMI, no JVD. No pulse deficits. 06:18 Respiratory: mild respiratory distress is noted, Respirations: no acute changes, Breath sounds: rales, that are moderate, are heard in the left posterior lower lobe and right posterior lower lobe. Vital Signs: 08/02 19:04 BP 135 / 119; Pulse 113; Resp 22; Temp 98.0; Pulse Ox 98% on R/A; Weight 88.2 kg; ph 19:20 Pulse Ox 90% on R/A; lp1 19:30 BP 209 / 101; Pulse 93; Resp 22; Temp 99.7(O); Pulse Ox 96% on 2 lpm NC; lp1 20:30 BP 194 / 94; Pulse 100; Resp 24; Pulse Ox 94% on 2 lpm NC; lp1 21:00 BP 189 / 88; Pulse 99; Resp 19; Pulse Ox 92% on 2 lpm NC; lp1 22:00 BP 189 / 92; Pulse 97; Resp 21; Pulse Ox 92% on 2 lpm NC; lp1 22:30 BP 180 / 89; Pulse 96; Resp 21; Pulse Ox 96% on 3 lpm NC; lp1 MDM: 19:17 Patient medically screened. tw4 08/03 06:20 Differential diagnosis: pneumonia, Pneumothorax reactive airway disease, Sepsis. tw4 Antibiotic administration: Not indicated. Data reviewed: vital signs, nurses notes. Data interpreted: Pulse oximetry: Interpretation: normal. Counseling: I had a detailed discussion with the patient and/or guardian regarding: the historical points, exam findings, and any diagnostic results supporting the discharge/admit diagnosis. Physician consultation: Laura Purdy MD regarding admission, patient's condition, need to come to ED to see patient, and will see patient in ED, would like consultation with Nephrology consulted for emergent dialysis . 08/02 19:38 Order name: Blood Culture Adult (2) tw 08/02 19:38 Order name: BMP tw 08/02 19:38 Order name: CBC with Diff tw 08/02 19:38 Order name: Ckmb [facility] 08/02 19:38 Order name: CPK [facility] 08/02 19:38 Order name: D-Dimer [facility] 08/02 19:38 Order name: Hepatic Function [facility] 08/02 19:38 Order name: Lipase [facility] 08/02 19:38 Order name: Magnesium [facility] 08/02 19:38 Order name: NT PRO-BNP [facility] 08/02 19:38 Order name: PT-INR [facility] 08/02 19:38 Order name: Ptt, Activated 08/02 19:38 Order name: Troponin (emerg Dept Use Only) [facility] 08/02 19:39 Order name: Blood Culture [facility] 08/02 19:38 Order name: XRAY CXR (1 view); Complete Time: 20:22 [facility] 08/02 19:38 Order name: EKG; Complete Time: 19:40 08/02 19:38 Order name: Cardiac monitoring; Complete Time: 20:15 [facility] 08/02 19:38 Order name: EKG - Nurse/Tech; Complete Time: 20:16 08/02 19:38 Order name: IV Saline Lock; Complete Time: 19:47 [facility] 08/02 19:38 Order name: Labs collected and sent; Complete Time: 19:47 [facility] 08/02 19:38 Order name: O2 Per Protocol; Complete Time: 19:47 [facility] 08/02 19:38 Order name: O2 Sat Monitoring; Complete Time: 19:47 [facility] 08/02 19:39 Order name: Basic Metabolic Panel [facility] 08/02 20:12 Order name: CBC Smear Scan [facility] 08/02 21:15 Order name: Lactate [facility] 08/02 21:15 Order name: Procalcitonin [facility] Administered Medications: 08/02 20:26 Drug: hydrALAZINE 20 mg Route: IV; Rate: bolus; Site: right forearm; ca1 22:44 Follow up: Response: Blood pressure is lowered lp1 22:51 Follow up: Response: No adverse reaction; Blood pressure is lowered; IV Status: ca1 Completed infusion 20:38 Drug: Zofran 4 mg Route: IVP; Site: right forearm; ca1 22:46 Follow up: Response: Marked relief of symptoms lp1 20:55 Drug: Tessalon Perle 200 mg Route: PO; ca1 22:45 Follow up: Response: Marked relief of symptoms lp1 Disposition: 08/02/18 21:11 Hospitalization ordered by Laura Purdy for Inpatient Admission. Preliminary diagnosis are Acute pulmonary edema, Hypertensive heart and chronic kidney disease. - Bed requested for Telemetry/MedSurg (Inpatient). - Status is Inpatient Admission. lp1 - Condition is Fair. - Problem is new. - Symptoms are unchanged. UTI on Admission? No Signatures: Dispatcher [employer] EDMS Sahara Mondragon RN RN lp1 Essie Canales RN RN Lina Lawrence RN RN Chandan Becerril MD MD tw4 Vilma Gomez RN RN ca1 Corrections: (The following items were deleted from the chart) 21:42 21:11 Hospitalization Ordered by Laura Purdy MD for Inpatient Admission. Preliminary cg diagnosis is Acute pulmonary edema; Hypertensive heart and chronic kidney disease. Bed requested for Telemetry/MedSurg (Inpatient). Status is Inpatient Admission. Condition is Fair. Problem is new. Symptoms are unchanged. UTI on Admission? No. tw4 22:36 22:35 Social history: Smoking status: lp1 lp1 22:54 21:42 08/02/2018 21:11 Hospitalization Ordered by Laura Purdy MD for Inpatient lp1 Admission. Preliminary diagnosis is Acute pulmonary edema; Hypertensive heart and chronic kidney disease. Bed requested for Telemetry/MedSurg (Inpatient). Status is Inpatient Admission. Condition is Fair. Problem is new. Symptoms are unchanged. UTI on Admission? No. cg
[2018-08-02] MEDS ORDERED: MANNITOL 25% 12.5 GM/50 ML VIAL IV PRN (21:39)
[2018-08-02] MEDS ORDERED: NA CHLORIDE 0.9% 1,000 ML IV PRN (21:39)
[2018-08-02] MEDS ORDERED: EPOETIN ALFA 10,000 UNIT/ML VIAL IV SCH (21:45)
[2018-08-02] MEDS ORDERED: ALBUMIN HUMAN 25% 50 ML IV SCH (22:00)
[2018-08-02] MEDS ORDERED: ONDANSETRON 4 MG/2 ML VIAL IV PRN (23:10)
[2018-08-03] MEDS: PROMETHAZINE 25 MG/ML VIAL IV PRN ×2 (00:20→13:52)
[2018-08-03] MEDS ORDERED: LORazepam 2 MG/ML VIAL IV ONE (01:39)
--- NOTE | 2018-08-03 04:33 | P.HP ---
Certification for Inpatient Patient admitted to: Inpatient With expected LOS: >2 Midnights Practitioner: I am a practitioner with admitting privileges, knowledge of patient current condition, hospital course, and medical plan of care. Services: Services provided to patient in accordance with Admission requirements found in Title 42 Section 412.3 of the Code of Federal Regulations Patient History Date of Service: 08/02/18 Reason for admission: acute on chronic CHF History of Present Illness: Mr Chacon is a 43 years old male with history of HTN, DM II, ESRD on HD, last time he dialyzed was 4 days ago. Since so, he has had dry cough, which was progressively worse. Today, the patient start with SOB. He denied fever or chills. His cough lead with nausea and vomiting. Lab work shows normal WBC count , normal lactate and procalcitonin. CXR remarkable for bilateral infiltrate, consistent with CHF. BP 189/100, HR 105 bpm. Allergies No Known Allergies Allergy (Unverified 08/02/18 23:57) Home medications list reviewed: Yes Home Medications: Atorvastatin Calcium [Lipitor*] 20 mg PO BEDTIME 02/27/18 Nifedipine [Nifedipine ER] 90 mg PO BID 02/27/18 Ropinirole HCl [Requip*] 1 mg PO BEDTIME 02/27/18 Trazodone HCl 100 mg PO BEDTIME PRN PRN 02/27/18 ALPRAZolam [Xanax*] 0.25 mg PO BID PRN 02/28/18 Doxazosin [Cardura*] 2 mg PO BID #60 tab 03/01/18 Losartan Potassium [Cozaar*] 50 mg PO BID #60 tablet 03/01/18 Pantoprazole [Protonix Tab] 40 mg PO DAILY #30 tab 03/01/18 Insulin Aspart [Novolog] 10 unit SQ BIDWM 08/03/18 Insulin Aspart [Novolog] 15 units SQ LUNCH 08/03/18 - Past Medical/Surgical History Has patient received pneumonia vaccine in the past: Yes Diabetic: Yes -: Diabetes mellitus type 2, insulin dependent -: Hypertension -: GERD -: Diabetic gastroparesis -: End stage renal disease on hemodialysis -: Cataract surgery -: Laser for Retinal Detachment Psychosocial/ Personal History: Patient is . He has no children. - Family History Father -: Diabetes, Kidney disease - Social History Smoking Status: Never smoker Alcohol use: No CD- Drugs: No Caffeine use: Yes Place of Residence: Home Review of Systems 10-point ROS is otherwise unremarkable Physical Examination - Vital Signs Temperature: 99.2 F Blood Pressure: 189/88 Pulse: 99 Respirations: 19 Pulse Ox (%): 93 - Physical Exam General: Alert, In no apparent distress HEENT: Atraumatic, PERRLA, Mucous membr. moist/pink, EOMI, Sclerae nonicteric Neck: Supple, 2+ carotid pulse no bruit, No LAD, Without JVD or thyroid abnormality Respiratory: Diminished, Crackles/rales (bibasilar rales) Cardiovascular: Regular rate/rhythm, Normal S1 S2 Gastrointestinal: Normal bowel sounds, No tenderness Musculoskeletal: No tenderness Integumentary: No rashes Neurological: Normal speech, Normal strength at 5/5 x4 extr, Normal tone, Normal affect Lymphatics: No axilla or inguinal lymphadenopathy - Studies Laboratory Data (last 24 hrs) 08/02/18 19:20: PT 13.1 H, INR 1.11, APTT 34.0 08/02/18 19:20: WBC 8.5 D, Hgb 8.9 L, Hct 28.0 L, Plt Count 197 D 08/02/18 19:20: Sodium 140, Potassium 4.6, BUN 55 H, Creatinine 8.89 H*, Glucose 104, Magnesium 2.4, Total Bilirubin 0.7, AST 10 L, ALT 30, Alkaline Phosphatase 126 H, Lipase 207 Assessment and Plan - Problems (Diagnosis) (1) ESRD (end stage renal disease) on dialysis Current Visit: Yes Status: Acute (2) Diabetes mellitus Current Visit: Yes Status: Acute Qualifiers: Diabetes mellitus type: type 2 Diabetes mellitus longterm insulin use: with longterm use Diabetes mellitus complication status: with kidney complications Diabetes mellitus complication detail: with chronic kidney disease Chronic kidney disease stage: on chronic dialysis Qualified Code(s) : E11.22 - Type 2 diabetes mellitus with diabetic chronic kidney disease; N18.6 - End stage renal disease; Z79.4 - team guide (current) use of insulin; Z99.2 - Dependence on renal dialysis (3) HTN (hypertension) Current Visit: Yes Status: Acute Qualifiers: Hypertension type: essential hypertension Qualified Code(s): I10 - Essential (primary) hypertension (4) CHF (congestive heart failure) Current Visit: Yes Status: Acute Qualifiers: Heart failure type: unspecified Heart failure chronicity: acute on chronic Qualified Code(s): I50.9 - Heart failure, unspecified - Plan Will admit the patient due to CHF exacerbation. Dr Mccoy was already contacted , and he will do HD in AM. Will order ECHO to evaluate cardiac function. SSI for BS control. - Advance Directives Does patient have a Living Will: No Does patient have a Durable POA for Healthcare: No - Code Status/Comfort Care Code Status Assessed: Yes Code Status: Full Code
[2018-08-03] MEDS: HYDRALAZINE HCL 20 MG/ML VIAL IV PRN ×3 (04:54→23:57)
[2018-08-03 06:57] LABS: Absolute Lymphocytes (CBC) 0.6 K/uL (0.7-4.9); Absolute Monocytes 0.6 K/uL (0.1-1.3); Absolute Neutrophil 9.6 K/uL (1.8-8.0); Basophils % 0.8 % (0-1.3); Eosinophils % 0.8 % (0-4.4); Lymphocytes % 5.1 % (15.3-44.8); MPV 7.9 fL (7.6-11.3); Monocytes % 5.5 % (3.3-12.3); RBC Red Blood Cell Count 3.25 M/uL (4.33-5.43)
[2018-08-03 07:29] LABS: Potassium 5.3 mmol/L (3.5-5.1)
[2018-08-03] MEDS: INSULIN -REGULAR HUMAN 50 UNIT/0.5 ML ML SQ SCH ×4 (07:30→21:00)
[2018-08-03 09:28] LABS: Anisocytosis 2+; Blood Morphology Comment NOTED (NOT SEEN); Platelet Estimate ADEQ; Urine White Blood Cell Casts OK
[2018-08-03] MEDS ORDERED: TRAZODONE 50 MG TABLET PO PRN (10:25)
--- NOTE | 2018-08-03 10:46 | P.PN ---
Subjective Date of Service: 08/03/18 Chief Complaint: acute on chronic CHF Patient seen and examined at bedside with RN. Chart reviewed. Case discussed with nephrology at this time. Patient scheduled for dialysis right now. Denies having any shortness of breath or chest pain at this time Review of Systems 10-point ROS is otherwise unremarkable Physical Examination - Vital Signs Temperature: 99.2 F Blood Pressure: 193/88 Pulse: 100 Respirations: 20 Pulse Ox (%): 91 - Physical Exam General: Alert, Oriented x3, Mild distress Neck: JVD distended Respiratory: Normal air movement, Crackles/rales Cardiovascular: Regular rate/rhythm, Normal S1 S2 Gastrointestinal: Normal bowel sounds, No tenderness Musculoskeletal: No tenderness, Swelling (2+ bilateral lower extremity edema) Integumentary: No rashes Neurological: Normal speech, Normal tone, Normal affect Lymphatics: No axilla or inguinal lymphadenopathy - Studies Laboratory Data (last 24 hrs) 08/02/18 19:20: PT 13.1 H, INR 1.11, APTT 34.0 08/02/18 19:20: WBC 8.5 D, Hgb 8.9 L, Hct 28.0 L, Plt Count 197 D 08/02/18 19:20: Sodium 140, Potassium 4.6, BUN 55 H, Creatinine 8.89 H*, Glucose 104, Magnesium 2.4, Total Bilirubin 0.7, AST 10 L, ALT 30, Alkaline Phosphatase 126 H, Lipase 207 Medications List Reviewed: Yes Assessment And Plan - Current Problems (Diagnosis) (1) Fluid overload Current Visit: Yes Status: Acute Plan: Fluid overload most likely secondary to missed hemodialysis -patient scheduled for hemodialysis today. -nephrology consulted. Appreciated recommendations at this time -patient currently with bilateral 2+ pedal edema -will monitor patient closely -strict I&O's along with low-sodium diet Qualifiers: Hypervolemia type: other Qualified Code(s): E87.79 - Other fluid overload (2) CHF (congestive heart failure) Current Visit: Yes Status: Acute Plan: Acute exacerbation of chronic CHF secondary to fluid overload secondary to missed hemodialysis -patient receiving hemodialysis today for volume overload -will restart patient also on home medication of losartan and nifedipine -daily weights along with low-sodium diet Qualifiers: Heart failure type: combined systolic and diastolic Heart failure chronicity: acute on chronic Qualified Code(s): I50.43 - Acute on chronic combined systolic (congestive) and diastolic (congestive) heart failure (3) ESRD (end stage renal disease) on dialysis Current Visit: Yes Status: Chronic Plan: End-stage renal disease now with missed hemodialysis -nephrology consulted. Appreciated recommendations at this time -patient so far schedule for hemodialysis today. Will followup post hemodialysis (4) Diabetes mellitus Current Visit: Yes Status: Chronic Plan: Insulin sliding scale and Accu-Cheks Qualifiers: Diabetes mellitus type: type 2 Diabetes mellitus shelter insulin use: with intermodal customer service use Diabetes mellitus complication status: with kidney complications Diabetes mellitus complication detail: with chronic kidney disease Chronic kidney disease stage: on chronic dialysis Qualified Code(s) : E11.22 - Type 2 diabetes mellitus with diabetic chronic kidney disease; N18.6 - End stage renal disease; Z79.4 - MCC (current) use of insulin; Z99.2 - Dependence on renal dialysis (5) HTN (hypertension) Current Visit: Yes Status: Chronic Qualifiers: Hypertension type: essential hypertension Qualified Code(s): I10 - Essential (primary) hypertension - Plan Pending clinical improvement at this time. Will follow up patient post hemodialysis today. Will monitor for next 24-48 hr here in the hospital. Discharge Plan: Home Plan to discharge in: 48 Hours - Code Status/Comfort Care Code Status Assessed: Yes Critical Care: No
--- NOTE | 2018-08-03 12:52 | EKG ---
Test Date: 2018-08-02 Test Time: 20:12:48 Sexual Assault Counselor: JAVY MEASUREMENT RESULTS: Intervals: Rate: 88 CO: 180 QRSD: 80 QT: 368 QTc: 445 [place]: P: 47 CO: 180 QRS: -1 T: 51 INTERPRETIVE STATEMENTS: Normal sinus rhythm Normal ECG Compared to ECG 02/27/2018 10:41:29 No significant changes Electronically Signed On 08-03-18 12:50:34 CDT by Alonso Lopez
[2018-08-03] MEDS: BENZONATATE 100 MG CAP PO PRN (13:52)
--- NOTE | 2018-08-03 15:38 | ECHO ---
HEIGHT: 5 ft 10 in WEIGHT: 201 lb 1.6 oz DATE OF STUDY: 08/03/[address]: Laura Silva MD 2-DIMENSIONAL: YES M.MODE: YES DOPPLER: YES COLOR FLOW: YES TDS: PORTABLE: DEFINITY: BUBBLE STUDY: DIAGNOSIS: CONGESTIVE HEART FAILURE CARDIAC HISTORY: CATHERIZATION: NO SURGERY: NO PROSTHETIC VALVE: NO PACEMAKER: NO MEASUREMENTS (cm) DIASTOLIC (NORMALS) SYSTOLIC (NORMALS) IVSd 1.3 (0.6-1.2) LA Diam 4.6 (1.9-4.0) LVEF 61% LVIDd 4.9 (3.5-5.7) LVIDs 3.3 (2.0-3.5) %FS 32% LVPWd 1.5 (0.6-1.2) Ao Diam 2.4 (2.0-3.7) 2 DIMENSIONAL ASSESSMENT: RIGHT ATRIUM: NORMAL LEFT ATRIUM: DILATED RIGHT VENTRICLE: NORMAL LEFT VENTRICLE: LEFT VENTRICULAR HYPERTROPHY TRICUSPID VALVE: NORMAL MITRAL VALVE: NORMAL PULMONIC VALVE: NORMAL AORTIC VALVE: NORMAL PERICARDIAL EFFUSION: NONE AORTIC ROOT: NORMAL LEFT VENTRICULAR WALL MOTION: NORMAL DOPPLER/COLOR FLOW: MILD TRICUSPID REGURGITATION. TRACE MITRAL REGURGITATION. MODERATE TO SEVERE PULMONARY HYPERTENSION. ESTIMATED RIGHT VENTRICULAR SYSTOLIC PRESSURE 60 mmHg. COMMENTS: NORMAL LEFT VENTRICULAR EJECTION FRACTION. LEFT VENTRICULAR HYPERTROPHY. DILATED LEFT ATRIUM. MILD TRICUSPID REGURGITATION. TRACE MITRAL REGURGITATION. MODERATE TO SEVERE PULMONARY HYPERTENSION. TECHNOLOGIST: JUDIE WAGGONER
--- NOTE | 2018-08-03 16:11 | P.CNS ---
Date of Consult: 08/03/18 Reason for Consult: ESRD Requesting Physician: Cecilia Chavez Chief Complaint: acute on chronic CHF History of Present Illness: 43 yo HM DM, HTN presented to the ER with moderate, progressive cough with associated N/V complicated by fatigue, weakness and malaise. No alleviating fx. Seen and examined on HD. Mr Chacon is a 43 years old male with history of HTN, DM II, ESRD on HD, last time he dialyzed was 4 days ago. Since so, he has had dry cough, which was progressively worse. Today, the patient start with SOB. He denied fever or chills. His cough lead with nausea and vomiting. Lab work shows normal WBC count , normal lactate and procalcitonin. CXR remarkable for bilateral infiltrate, consistent with CHF. BP 189/100, HR 105 bpm. Allergies No Known Allergies Allergy (Unverified 08/02/18 23:57) Home medications list reviewed: Yes Home Medications: Atorvastatin Calcium [Lipitor*] 20 mg PO BEDTIME 02/27/18 Nifedipine [Nifedipine ER] 90 mg PO BID 02/27/18 Ropinirole HCl [Requip*] 1 mg PO BEDTIME 02/27/18 Trazodone HCl 100 mg PO BEDTIME PRN PRN 02/27/18 ALPRAZolam [Xanax*] 0.25 mg PO BID PRN 02/28/18 Doxazosin [Cardura*] 2 mg PO BID #60 tab 03/01/18 Losartan Potassium [Cozaar*] 50 mg PO BID #60 tablet 03/01/18 Pantoprazole [Protonix Tab] 40 mg PO DAILY #30 tab 03/01/18 Insulin Aspart [Novolog] 10 unit SQ BIDWM 08/03/18 Insulin Aspart [Novolog] 15 units SQ LUNCH 08/03/18 - Past Medical/Surgical History Diabetic: Yes -: Diabetes mellitus type 2, insulin dependent -: Hypertension -: GERD -: Diabetic gastroparesis -: End stage renal disease on hemodialysis -: Cataract surgery -: Laser for Retinal Detachment Psychosocial/ Personal History: Patient is . He has no children. - Family History Father Medical History: Diabetes, Kidney disease - Social History Smoking Status: Unknown if ever smoked Alcohol use: No CD- Drugs: No Caffeine use: Yes Place of Residence: Home Review of Systems 10-point ROS is otherwise unremarkable General: Weakness, Malaise Respiratory: SOB with Excertion Cardiovascular: Edema Gastrointestinal: Nausea Neurological: Weakness Physical Examination Temp Pulse Resp BP Pulse Ox 99.7 F 100 H 22 H 204/92 H 97 08/03/18 12:30 08/03/18 12:30 08/03/18 12:30 08/03/18 12:30 08/03/18 12:30 General: Alert, Oriented x3, Cooperative, Mild distress HEENT: Atraumatic, Mucous membr. moist/pink Neck: Supple Respiratory: Clear to auscultation bilaterally Cardiovascular: Regular rate/rhythm, No rubs, Edema Gastrointestinal: Soft and benign, Non-distended, No guarding Musculoskeletal: No clubbing, No contractures Integumentary: No rashes, No cyanosis Neurological: Normal speech Laboratory Data (last 24 hrs) 08/02/18 19:20: PT 13.1 H, INR 1.11, APTT 34.0 08/02/18 19:20: WBC 8.5 D, Hgb 8.9 L, Hct 28.0 L, Plt Count 197 D 08/02/18 19:20: Sodium 140, Potassium 4.6, BUN 55 H, Creatinine 8.89 H*, Glucose 104, Magnesium 2.4, Total Bilirubin 0.7, AST 10 L, ALT 30, Alkaline Phosphatase 126 H, Lipase 207 Imagings Data: EXAM DESCRIPTION: RAD - Chest Single View - 08/02/2018 7:48 pm CLINICAL HISTORY: SOB Chest pain. COMPARISON: Chest Single View dated 07/24/2018; Chest Single View dated 2018; Abdomen Acute Series dated 02/27/2018; Chest Single View dated 02/18/2018 FINDINGS: Portable technique limits examination quality. Moderate bilateral pulmonary opacities are noted, greater on the left, which may represent pulmonary edema or pneumonia. The heart is mildly to moderately enlarged in size. No displaced fractures. Conclusions/Impression: A/ ESRD on HD. Hyperkalemia. HTN with CKD/ CHF. Diastolic CHF, A/C. Anemia in CKD. DM II with CKD & Gastroparesis. KEVIN/ Secondary HyperPTH. Acute bronchitis. P/ Continue current POC and Medications. Acute HD as ordered. UF as tolerated. Restart home medications as indicated. Give Epo. Add Tussionex for cough prn. Restart Alprazolam prn for anxiety. No NSAIDs. AM labs. Daily weight. Thank you kindly for the consultation.
[2018-08-03] MEDS ORDERED: ALPRAZOLAM 0.25 MG TABLET PO PRN (16:18)
[2018-08-03] MEDS: HYDROCODONE/CHLORPHEN 5 ML/OSYR PO PRN (17:34)
[2018-08-03] MEDS: SEVELAMER CARBONATE 800 MG TABLET PO SCH (17:34)
[2018-08-03] MEDS ORDERED: ATORVASTATIN 20 MG TAB PO SCH (21:00)
[2018-08-03] MEDS ORDERED: ROPINIROLE HCL 1 MG TAB PO SCH (21:00)
[2018-08-03] MEDS: LOSARTAN POTASSIUM 50 MG TABLET PO SCH (22:05)
[2018-08-03] MEDS: DOXAZOSIN 2 MG TAB PO SCH (22:05)
[2018-08-03] MEDS: NIFEDIPINE XL 90 MG TABLET PO SCH (22:06)
[2018-08-04] MEDS: BENZONATATE 100 MG CAP PO PRN (00:16)
[2018-08-04 06:27] VITALS: BMI 27.9
[2018-08-04] MEDS: INSULIN -REGULAR HUMAN 50 UNIT/0.5 ML ML SQ SCH ×2 (08:49→11:31)
[2018-08-04] MEDS: DOXAZOSIN 2 MG TAB PO SCH (08:49)
[2018-08-04] MEDS: NIFEDIPINE XL 90 MG TABLET PO SCH (08:49)
[2018-08-04] MEDS: SEVELAMER CARBONATE 800 MG TABLET PO SCH ×2 (08:50→11:31)
[2018-08-04] MEDS: LOSARTAN POTASSIUM 50 MG TABLET PO SCH (08:50)
[2018-08-04] MEDS ORDERED: CALCITROL 0.25 MCG CAP PO SCH (09:00)
[2018-08-04] MEDS ORDERED: VITAMIN D 5,000 UNIT CAP PO SCH (09:00)
[2018-08-04] MEDS ORDERED: PANTOPRAZOLE 40MG TABLET PO SCH (09:00)
[2018-08-04] MEDS: HYDROCODONE/CHLORPHEN 5 ML/OSYR PO PRN (09:25)
--- NOTE | 2018-08-04 10:22 | RAD REPORT ---
EXAM DESCRIPTION: RAD - Chest Pa And Lat (2 Views) - 08/04/2018 10:11 am CLINICAL HISTORY: Fluid Overload Chest pain. COMPARISON: Chest Single View dated 08/02/2018; Chest Single View dated 07/24/2018; Chest Single View dated 06/25/2018; Abdomen Acute Series dated 02/27/2018 FINDINGS: Mild improvement in lung aeration is seen since the comparative study. The heart is upper limit of normal in size. No displaced fractures. IMPRESSION: Mild improvement in lung aeration noted since comparative study.
[2018-08-04 10:26] LABS: Potassium 4.8 mmol/L (3.5-5.1)
--- NOTE | 2018-08-04 11:36 | P.DS ---
Admission Date: 08/02/18 Discharge Date: 08/04/18 Disposition: ROUTINE DISCHARGE Discharge Condition: FAIR Reason for Admission: acute on chronic CHF Consultations: Nephrology - Problems (1) Fluid overload Current Visit: Yes Status: Acute Qualifiers: Hypervolemia type: other Qualified Code(s): E87.79 - Other fluid overload (2) CHF (congestive heart failure) Current Visit: Yes Status: Acute Qualifiers: Heart failure type: combined systolic and diastolic Heart failure chronicity: acute on chronic Qualified Code(s): I50.43 - Acute on chronic combined systolic (congestive) and diastolic (congestive) heart failure (3) ESRD (end stage renal disease) on dialysis Current Visit: Yes Status: Chronic (4) Diabetes mellitus Current Visit: Yes Status: Chronic Qualifiers: Diabetes mellitus type: type 2 Diabetes mellitus transformation coach insulin use: with retirement use Diabetes mellitus complication status: with kidney complications Diabetes mellitus complication detail: with chronic kidney disease Chronic kidney disease stage: on chronic dialysis Qualified Code(s) : E11.22 - Type 2 diabetes mellitus with diabetic chronic kidney disease; N18.6 - End stage renal disease; Z79.4 - manufacturing supervisor (current) use of insulin; Z99.2 - Dependence on renal dialysis (5) HTN (hypertension) Current Visit: Yes Status: Chronic Qualifiers: Hypertension type: essential hypertension Qualified Code(s): I10 - Essential (primary) hypertension Brief History of Present Illness: Mr Chacon is a 43 years old male with history of HTN, DM II, ESRD on HD, last time he dialyzed was 4 days ago. Since so, he has had dry cough, which was progressively worse. Today, the patient start with SOB. He denied fever or chills. His cough lead with nausea and vomiting. Lab work shows normal WBC count , normal lactate and procalcitonin. CXR remarkable for bilateral infiltrate, consistent with CHF. BP 189/100, HR 105 bpm. Hospital Course: Overall during the hospital stay patient remained stable Patient was initially admitted to the hospital for volume overload most likely secondary to missed hemodialysis. Patient had nephrology consulted who started patient on hemodialysis for fluid overload and electrolyte abnormality. Patient had marked improvement in his symptoms. Was successfully weaned off of oxygen and was diuresed adequately. At that time patient was restarted back on his original dialysis schedule. Patient had marked improvement in his symptoms and at that time was discharged home under stable condition. While the hospital and also had an echocardiogram to assess for congestive heart failure. Patient was found to have severe pulmonary hypertension along with normal ejection fraction. Patient's volume overload could back injury to multifactorial reasons secondary to severe pulmonary hypertension, cardiorenal syndrome as well. Patient was asked to follow up with cardiology to address this further. Patient was also asked to follow up with pulmonology to address severe pulmonary hypertension. Patient demonstrate understanding and thus was discharged home under stable condition. No new medications were prescribed. Patient was educated on continuing with hemodialysis and monitoring his symptoms closely. Patient demonstrate understanding Vital Signs/Physical Exam: Temp Pulse Resp BP Pulse Ox 98.9 F 95 H 20 132/67 97 08/04/18 08:00 08/04/18 08:49 08/04/18 08:00 08/04/18 08:49 08/04/18 08:00 General: Alert, In no apparent distress HEENT: Atraumatic, PERRLA, EOMI Neck: Supple, JVD not distended Respiratory: Clear to auscultation bilaterally, Normal air movement Cardiovascular: Regular rate/rhythm, Normal S1 S2 Gastrointestinal: Normal bowel sounds, No tenderness Musculoskeletal: No tenderness Integumentary: No rashes Neurological: Normal speech, Normal tone, Normal affect Lymphatics: No axilla or inguinal lymphadenopathy Laboratory Data at Discharge: WBC 11.0 K/uL (4.3-10.9) H D 08/03/18 06:37 Hgb 9.3 g/dL (13.6-17.9) L 08/03/18 06:37 Hct 28.0 % (39.6-49.0) L 08/03/18 06:37 Plt Count 196 K/uL (152-406) 08/03/18 06:37 PT 13.1 SECONDS (9.5-12.5) H 08/02/18 19:20 INR 1.11 08/02/18 19:20 APTT 34.0 SECONDS (24.3-36.9) 08/02/18 19:20 Sodium 137 mmol/L (136-145) 08/04/18 09:32 Potassium 4.8 mmol/L (3.5-5.1) 08/04/18 09:32 BUN 55 mg/dL (7-18) H 08/04/18 09:32 Creatinine 8.44 mg/dL (0.55-1.3) H* D 08/04/18 09:32 Glucose 222 mg/dL (74-106) H 08/04/18 09:32 Magnesium 2.4 mg/dL (1.8-2.4) 08/02/18 19:20 Total Bilirubin 0.7 mg/dL (0.2-1.0) 08/02/18 19:20 AST 10 U/L (15-37) L 08/02/18 19:20 ALT 30 U/L (12-78) 08/02/18 19:20 Alkaline Phosphatase 126 U/L (45-117) H 08/02/18 19:20 Lipase 207 U/L (73-393) 08/02/18 19:20 Home Medications: Atorvastatin Calcium [Lipitor*] 20 mg PO BEDTIME 02/27/18 Nifedipine [Nifedipine ER] 90 mg PO BID 02/27/18 Ropinirole HCl [Requip*] 1 mg PO BEDTIME 02/27/18 Trazodone HCl 100 mg PO BEDTIME PRN PRN 02/27/18 ALPRAZolam [Xanax*] 0.25 mg PO BID PRN 02/28/18 Doxazosin [Cardura*] 2 mg PO BID #60 tab 03/01/18 Losartan Potassium [Cozaar*] 50 mg PO BID #60 tablet 03/01/18 Pantoprazole [Protonix Tab*] 40 mg PO DAILY #30 tab 03/01/18 Insulin Aspart [Novolog] 10 unit SQ BIDWM 08/03/18 Insulin Aspart [Novolog] 15 units SQ LUNCH 08/03/18 Patient Discharge Instructions: Please followup with PCP and per nephrology in about 1-2 weeks discharge. No new medication Diet: Regular Activity: Ad chandrika Followup: Rojas Mccoy DO [ACTIVE - CAN ADMIT] -
[2018-08-04 12:39] VITALS: BP 86/41; TEMP 98.4
[2018-08-04 13:10] VITALS: O2SAT 92
--- NOTE | 2018-08-04 21:56 | P.PN ---
Date of Service: 08/04/18 Vital Signs Temp Pulse Resp BP Pulse Ox 98.4 F 64 24 H 86/41 L 91 08/04/18 12:00 08/04/18 12:00 08/04/18 12:00 08/04/18 12:00 08/04/18 12:00 Microbiology Results 08/02/18 20:22 Blood - Blood Aerobic Blood Culture - Preliminary No growth in 24 hours. 08/02/18 20:22 Blood - Blood Anaerobic Blood Culture - Preliminary No growth in 24 hours. 08/02/18 19:20 Blood - Blood Aerobic Blood Culture - Preliminary No growth in 24 hours. 08/02/18 19:20 Blood - Blood Anaerobic Blood Culture - Preliminary No growth in 24 hours. Assessment/ Plan: Nephrology. Feeling better but with a persistent cough. CPS improved without CP or SOB. +SHORT No acute events overnight. Vitals, medications, blood work and imaging reviewed in the chart. General: Alert, Oriented x3, Cooperative, Mild distress HEENT: Atraumatic, Mucous membr. moist/pink Neck: Supple Respiratory: Clear to auscultation bilaterally Cardiovascular: Regular rate/rhythm, No rubs, Edema Gastrointestinal: Soft and benign, Non-distended, No guarding Musculoskeletal: No clubbing, No contractures Integumentary: No rashes, No cyanosis Neurological: Normal speech Laboratory Data (last 24 hrs) 08/02/18 19:20: PT 13.1 H, INR 1.11, APTT 34.0 08/02/18 19:20: WBC 8.5 D, Hgb 8.9 L, Hct 28.0 L, Plt Count 197 D 08/02/18 19:20: Sodium 140, Potassium 4.6, BUN 55 H, Creatinine 8.89 H*, Glucose 104, Magnesium 2.4, Total Bilirubin 0.7, AST 10 L, ALT 30, Alkaline Phosphatase 126 H, Lipase 207 Imagings Data: EXAM DESCRIPTION: RAD - Chest Single View - 08/02/2018 7:48 pm CLINICAL HISTORY: SOB Chest pain. COMPARISON: Chest Single View dated 07/24/2018; Chest Single View dated 2018; Abdomen Acute Series dated 02/27/2018; Chest Single View dated 02/18/2018 FINDINGS: Portable technique limits examination quality. Moderate bilateral pulmonary opacities are noted, greater on the left, which may represent pulmonary edema or pneumonia. The heart is mildly to moderately enlarged in size. No displaced fractures. Conclusions/Impression: A/ ESRD on HD. Hyperkalemia. HTN with CKD/ CHF. Diastolic CHF, A/C. Anemia in CKD. DM II with CKD & Gastroparesis. KEVIN/ Secondary HyperPTH. Acute bronchitis. P/ Continue current POC and Medications. Next HD tomorrow. Counseled regarding acute bronchitis. No NSAIDs. AM labs. Daily weight. Case discussed with Dr. Chavez
== END 2018-08-04 14:34 | disposition home or self-care (01) | DRG 291 ==
LOC: ER 18:41 → ERHOLD 21:27 → 4TH 22:48
PROVIDERS: ADMIT Internal Medicine; ATTEND Internal Medicine
PROC: 5A1D70Z Performance of Urinary Filtration, Intermittent, Less than 6 Hours Per Day (ICD-10-PCS; principal; 2018-08-03)
DX: I13.2 Hypertensive heart and chronic kidney disease with heart failure and with stage 5 chronic kidney disease, or end stage renal disease (principal); I50.43 Acute on chronic combined systolic (congestive) and diastolic (congestive) heart failure; N18.6 End stage renal disease; E11.22 Type 2 diabetes mellitus with diabetic chronic kidney disease; Z99.2 Dependence on renal dialysis; Z79.4 Long term (current) use of insulin; I27.20 Pulmonary hypertension, unspecified; E87.5 Hyperkalemia; E11.43 Type 2 diabetes mellitus with diabetic autonomic (poly)neuropathy; K31.84 Gastroparesis; J20.9 Acute bronchitis, unspecified
CPT/HCPCS: 36415; 71045; 71046; 80048; 80076; 82550; 82553; 82962; 83605; 83690; 83735; 83880; 84145; 84484; 85025; 85379; 85610; 85730; 87040; 90935; 93005; 93306; 96365; 96366; 96375; 99285; J0360; J2405; J2550

== ENCOUNTER 2018-09-17 10:12 | Emergency (ER) | payer OTHER ==
--- OUTSIDE RECORDS SUMMARY | 2018-09-17 10:14 | XMS REPORT | Clinical Summary ---
:1975 Author Organization [facility] Address [address] [place] [address] Care Team Providers Name Role Phone Unavailable Primary Care Provider Unavailable Allergies Active Allergy Reactions Severity Noted Date Comments Promethazine 09/12/2017 Medications Not on file Active Problems Problem Noted Date ESRD (end stage renal disease) on dialysis 10/02/2017 Pre-transplant evaluation for chronic kidney disease 10/02/2017 Type 2 diabetes mellitus 10/02/2017 Hypertensive renal disease 10/02/2017 Encounters Date Type Specialty Care Team Description 11/21/2017 Abstract Marianne Peralta 11/21/2017 Abstract Marianne Peralta 10/07/2017 Office Visit Transplant ESRD (end stage renal disease) on dialysis ([facility]); Pre-transplant evaluation for chronic kidney disease; Type 2 diabetes mellitus with chronic kidney disease on chronic dialysis, unspecified whether ecological risk assessor insulin use ([facility]); Hypertensive renal disease 10/06/2017 Telephone Transplant Kristina Ya Appointment (Per Mr. Chacon he will be here tomorrow for his appt on 10.07.17 but he will call back to get the address and directions he just left dialysis and he per patient he has not received the packet in the mail for the appt) 09/22/2017 Abstract Transplant Marianne Frazier after 09/16/2017 Social History Tobacco Use Types Packs/Day Years Used Date Never Smoker Sex Assigned at Date Recorded Not on file Job Start Date Occupation Industry Not on file Not on file Not on file Travel History Travel Start Travel End No recent travel history available. Last Filed Vital Signs Not on file Plan of Treatment Not on file Results Not on fileafter 09/16/2017 Insurance Payer Benefit Plan / Group Subscriber ID Type Phone Address MEDICARE MEDICARE A B xxxxxxxxxx Medicare [employer] ALL xxxxxxxxxx Maps Contracted
--- OUTSIDE RECORDS SUMMARY | 2018-09-17 10:15 | XMS REPORT | Continuity of Care Document ---
:1975 Author Organization [facility] Care Team Providers Name Role Phone [facility] Unavailable Unavailable Problems Problem Status Onset Classification Date Comments [...] Friday and LANTUS 18 units at Active MH SOLOSTAR 100 bedtime sc 012 Medical UNIT/ML [facility] LIPITOR 20 MG 1 po qd Active MH TABS 012 [facility] LISINOPRIL 30 1 po qd Active MH MG TABS 012 [facility] Allergies, Adverse Reactions, Alerts No Known Medication Allergies Immunizations No Data Provided for This Section Results Order Name Results Value Reference Date Interpretation Comments Source Range Chemistry HGBA1C 7.3 - 5.6 2012 [facility] Chemistry CHOLESTEROL 178 - 199 2012 [facility] Chemistry TRIGLYCERIDE 129 - 149 2012 [facility] Chemistry HDL 40 >=61 2012 [facility] Chemistry LDL 112 - 99 2012 [facility] Chemistry SODIUM 141 135 - 145 MEQ/L 2012 [facility] Chemistry POTASSIUM 4.5 3.5 - 5.1 MEQ/L 2012 [facility] Chemistry CREATININE 6.4 0.5 - 1.4 2012 [facility] Chemistry BUN 57 7 - 22 2012 [facility] Chemistry BUN/CREAT 9 6 - 25 2012 [facility] Chemistry ALBUMIN 3.6 3.5 - 5.0 2012 [facility] Chemistry CALCIUM 9.0 8.5 - 10.5 2012 [facility] Chemistry SGPT (ALT) 21 0 - 65 2012 [facility] Chemistry SGOT (AST) 9 0 - 37 2012 [facility] Chemistry ALK PHOS 67 39 - 136 2012 [facility] Hematology HGB 13.2 14.0 - 18.0 2012 [facility] Hematology HCT 41.5 42.0 - 54.0 2012 [facility] Hematology PLATELETS 217 133 - 450 K/CMM 2012 [facility] Chemistry HGBA1C 5.1 2012 [facility] Chemistry CHOLESTEROL 292 120 - 200 2012 [facility] Chemistry TRIGLYCERIDE 200 0 - 200 2012 [facility] Chemistry HDL 37 >=35 2012 [facility] Chemistry LDL 215 0 - 129 2012 [facility] Chemistry SODIUM 139 135 - 145 MEQ/L 2012 [facility] Chemistry POTASSIUM 4.6 3.5 - 5.1 MEQ/L 2012 [facility] Chemistry CREATININE 7.4 0.5 - 1.4 2012 [facility] Chemistry BUN 53 7 - 22 2012 [facility] Chemistry BUN/CREAT 7 6 - 25 2012 [facility] Chemistry ALBUMIN 2.2 3.5 - 5.0 2012 [facility] Chemistry CALCIUM 7.2 8.5 - 10.5 2012 [facility] Chemistry SGPT (ALT) 24 0 - 65 2012 [facility] Chemistry SGOT (AST) 27 0 - 37 2012 [facility] Chemistry ALK PHOS 66 39 - 136 2012 [facility] Chemistry HGBA1C 5.1 2012 [facility] Chemistry CHOLESTEROL 292 120 - 200 2012 [facility] Chemistry TRIGLYCERIDE 200 0 - 200 2012 [facility] Chemistry HDL 37 >=35 2012 [facility] Chemistry LDL 215 0 - 129 2012 [facility] Chemistry SODIUM 139 135 - 145 MEQ/L 2012 [facility] Chemistry POTASSIUM 4.6 3.5 - 5.1 MEQ/L 2012 [facility] Chemistry CREATININE 7.4 0.5 - 1.4 2012 [facility] Chemistry BUN 53 7 - 22 2012 [facility] Chemistry BUN/CREAT 7 6 - 25 2012 [facility] Chemistry ALBUMIN 2.2 3.5 - 5.0 2012 [facility] Chemistry CALCIUM 7.2 8.5 - 10.5 2012 [facility] Chemistry SGPT (ALT) 24 0 - 65 2012 [facility] Chemistry SGOT (AST) 27 0 - 37 2012 [facility] Chemistry ALK PHOS 66 39 - 136 2012 [facility] Hematology HGB 7.9 14.0 - 18.0 2012 [facility] Hematology HCT 23.7 42.0 - 54.0 2012 [facility] Hematology PLATELETS 289 133 - 450 K/CM 2012 [facility] Hematology HGB 7.9 14.0 - 18.0 2012 [facility] Hematology HCT 23.7 42.0 - 54.0 2012 [facility] Hematology PLATELETS 289 133 - 450 K/CMM 2012 [facility] Chemistry HGBA1C 6.9 2011 [facility] Chemistry TSH 1.420 0.360 - 3.740 2011 [facility] Chemistry CHOLESTEROL 327 120 - 200 2011 [facility] Chemistry TRIGLYCERIDE 155 0 - 200 2011 [facility] Chemistry HDL 54 >=35 2011 [facility] Chemistry LDL 242 0 - 129 2011 [facility] Chemistry SODIUM 141 135 - 145 MEQ/L 2011 [facility] Chemistry POTASSIUM 4.7 3.5 - 5.1 MEQ/L 2011 [facility] Chemistry CREATININE 4.9 0.5 - 1.4 2011 [facility] Chemistry BUN 63 7 - 22 2011 [facility] Chemistry BUN/CREAT 13 6 - 25 2011 [facility] Chemistry ALBUMIN 1.8 3.5 - 5.0 2011 [facility] Chemistry CALCIUM 7.6 8.5 - 10.5 2011 [facility] Chemistry SGPT (ALT) 17 0 - 65 2011 [facility] Chemistry SGOT (AST) 14 0 - 37 2011 [facility] Chemistry ALK PHOS 68 39 - 136 2011 [facility] Pathology Reports No Data Provided for This Section Diagnostic Reports No Data Provided for This Section Consultation Notes No Data Provided for This Section Discharge Summaries No Data Provided for This Section History and Physicals No Data Provided for This Section Vital Signs Vital Sign Value Date Comments [...] 08/31/2013 [facility] Group Weight 202 06/02/2012 [facility] Height 66 06/02/2012 [facility] Temperature Oral (F) 98.4 F 06/02/2012 [facility] Group Heart Rate 100 06/02/2012 [facility] Group Systolic (mm Hg) 131 06/02/2012 Medical Group Diastolic (mm Hg) 78 06/02/2012 [facility] Encounters Location Location Encounter Encounter Reason Attending ADM DC Status Source Details Type Number For Provider Date Date Visit [facility] Office [id number] Oralia Gao, 08/31 08/31 [place] [facility] [address] [facility] Office [id number] Lyric 09/08 09/08 [place] Visit 420 MD Javier /2013 [facility] [address] [facility] Lab Report [id number] Lyric 02/23 02/23 [place] 570 MD Javier /2013 [facility] Office [id number] Elmer 09/07 [facility] Lup[facility] [place] Procedures No Data Provided for This Section Assessment and Plan No Data Provided for This Section Plan of Care No Data Provided for This Section Social History No Data Provided for This Section Family History No Data Provided for This Section Advance Directives No Data Provided for This Section Functional Status No Data Provided for This Section
--- OUTSIDE RECORDS SUMMARY | 2018-09-17 10:16 | XMS REPORT | Continuity of Care Document ---
:1975 Author Organization [facility] [employer] [facility] Care Team Providers Name Role Phone MD Lupillo, Elmer Unavailable Unavailable Insurance Providers Payer name Policy type / Policy ID Covered constitution party ID Policy Laws Coverage type MHEALTH - [facility] ED[facility] [employer] - [facility] MEDICARE [place]: NOVITAS [employer] - [facility] EDG [employer] - [facility] EDG [employer] - [facility] EDG [employer] - [facility] EDG [employer] - [facility] EDG [employer] - [facility] EDG [employer] - [facility] EDG [employer] - [facility] EDG [employer] - [facility] EDG [employer] - [facility] EDG [employer] - [facility] EDG [employer] - [facility] [employer] - [facility] EDG [employer] - [facility] EDG [employer] - [facility] EDG [employer] - [facility] EDG [employer] - [facility] EDG [employer] - [facility] [employer] - [facility] EDG [employer] - [facility] EDG [employer] - [facility]G Encounters Encounter Performer Location Date Office Visit Elmer Wesley MD [facility] [facility] Sep 07, 2014 Problems Problem Effective [...] SOLOSTAR 100 UNIT/ML 18 units at bedtime ca Dec 06, 2011 Active SOLN ACCU-CHEK FERNANDA [...] 2012Jun 04, platelet count PLATELETS 289 K/CMM 702-122 2200 /mm3 Jun 04, hemoglobin, blood HGB 7.9 g/dL 14.0-18.0 Low 2012Jun 04, hematocrit, blood HCT 23.7 % 42.0-54.0 Low 2012Jun 04, platelet count PLATELETS 289 K/CMM [phone] /mm3 Oct 23, hemoglobin, blood HGB 13.2 g/dL 14.0-18.0 Low 2012Oct 23, hematocrit, blood HCT 41.5 % 42.0-54.0 Low 2012Oct 23, platelet count PLATELETS 217 K/CMM [phone] /mm3 Jun 04, hemoglobin A1C, HGBA1C 5.1 % 2012 blood, as % of total hemoglobin Jun 04, cholesterol, serum CHOLESTEROL 292 mg/dl 120-200 High 2012Jun 04, triglyceride, serum, TRIGLYCERIDE 200 mg/dl 0-200 2012 fasting Jun 04, HDL cholesterol, HDL 37 mg/dl >=35 2012 serum Jun 04, LDL cholesterol, LDL 215 mg/dl 0-129 High 2012 serum Jun 04, sodium, serum SODIUM 139 MEQ/L [phone] mmol/L Jun 04, potassium, serum POTASSIUM 4.6 [...] 2011Nov 11, sodium, serum SODIUM 141 MEQ/L 234-335 7881 mmol/L Nov 11, potassium, serum POTASSIUM 4.7 [...] 2012Jun 04, sodium, serum SODIUM 139 MEQ/L 654-275 7445 mmol/L Jun 04, potassium, serum POTASSIUM 4.6 [...] Oct 23, sodium, serum SODIUM 141 MEQ/L 100-330 3652 mmol/L Oct 23, potassium, serum POTASSIUM 4.5 [...]
--- OUTSIDE RECORDS SUMMARY | 2018-09-17 10:16 | XMS REPORT | Continuity of Care Document ---
:1975 Author Organization [facility] [employer] [facility] Care Team Providers Name Role Phone MD Murray, Oralia Unavailable Unavailable Insurance Providers Payer name Policy type / Policy ID Covered constitution party ID Policy Laws Coverage type MHEALTH - [facility] EDGE [facility] EDG MEDICARE B-[place]: [facility] HS EDG [facility] - HS EDG [facility] - HS EDG [facility] - HS EDG [facility] - HS [facility]G Encounters Encounter Performer Location Date Office Visit Oralia Gao MD [facility] Aug 31, 2013 [address]iology [address] Problems [...] 2012Jun 04, platelet count PLATELETS 289 K/CMM [phone] /mm3 Jun 04, hemoglobin, blood HGB 7.9 g/dL 14.0-18.0 Low 2012Jun 04, hematocrit, blood HCT 23.7 % 42.0-54.0 Low 2012Jun 04, platelet count PLATELETS 289 K/CMM 137-256 2037 /mm3 Oct 23, hemoglobin, blood HGB 13.2 g/dL 14.0-18.0 Low 2012Oct 23, hematocrit, blood HCT 41.5 % 42.0-54.0 Low 2012Oct 23, platelet count PLATELETS 217 K/CMM 582-681 8911 /mm3 Jun 04, hemoglobin A1C, HGBA1C 5.1 % 2012 blood, as % of total hemoglobin Jun 04, cholesterol, serum CHOLESTEROL 292 mg/dl 120-200 High 2012Jun 04, triglyceride, serum, TRIGLYCERIDE 200 mg/dl 0-200 2012 fasting Jun 04, HDL cholesterol, HDL 37 mg/dl >=35 2012Jun 04, LDL cholesterol, LDL 215 mg/dl 0-129 High 2012Jun 04, sodium, serum SODIUM 139 MEQ/L 268-754 1178 mmol/L Jun 04, potassium, serum POTASSIUM 4.6 [...] 2011Nov 11, sodium, serum SODIUM 141 MEQ/L 601-912 6100 mmol/L Nov 11, potassium, serum POTASSIUM 4.7 [...] 2012Jun 04, sodium, serum SODIUM 139 MEQ/L 569-189 1605 mmol/L Jun 04, potassium, serum POTASSIUM 4.6 [...] Oct 23, sodium, serum SODIUM 141 MEQ/L 301-179 9699 mmol/L Oct 23, potassium, serum POTASSIUM 4.5 [...]
--- OUTSIDE RECORDS SUMMARY | 2018-09-17 10:16 | XMS REPORT | Continuity of Care Document ---
:[address] [facility] [employer] [facility] Care Team Providers Name Role Phone MD Javier, Lyric Unavailable Unavailable Insurance Providers Payer name Policy type / Policy ID Covered libertarian ID Policy Laws Coverage type MHEALTH - [facility] EDGE [employer] - [facility] EDG MEDICARE B-[place]: [employer] - [facility] EDG [employer] - [facility] EDG [employer] - [facility] EDG [employer] - [facility] EDG [employer] - [facility] EDG [employer] - [facility]G [employer] - [facility]G [employer] - [facility] [employer] - [facility] [employer] - [facility] [employer] - [facility]G [employer] - [facility] [employer] - [facility]G [employer] - [facility] [employer] - [facility] [employer] - [facility] [employer] - [facility] Encounters Encounter Performer Location Date Office Visit Lyric Herrera MD [facility] Sep 08, 2013 9305 Problems Problem [...] 2012Jun 04, platelet count PLATELETS 289 K/CMM [phone] /mm3 Jun 04, hemoglobin, blood HGB 7.9 g/dL 14.0-18.0 Low 2012Jun 04, hematocrit, blood HCT 23.7 % 42.0-54.0 Low 2012Jun 04, platelet count PLATELETS 289 K/CMM [phone] /mm3 Oct 23, hemoglobin, blood HGB 13.2 g/dL 14.0-18.0 Low 2012Oct 23, hematocrit, blood HCT 41.5 % 42.0-54.0 Low 2012Oct 23, platelet count PLATELETS 217 K/CMM 659-026 0272 /mm3 Jun 04, hemoglobin A1C, HGBA1C 5.1 % 2012 blood, as % of total hemoglobin Jun 04, cholesterol, serum CHOLESTEROL 292 mg/dl 120-200 High 2012Jun 04, triglyceride, serum, TRIGLYCERIDE 200 mg/dl 0-200 2012 fasting Jun 04, HDL cholesterol, HDL 37 mg/dl >=35 2012Jun 04, LDL cholesterol, LDL 215 mg/dl 0-129 High 2012Jun 04, sodium, serum SODIUM 139 MEQ/L 522-023 8129 mmol/L Jun 04, potassium, serum POTASSIUM 4.6 [...] 2011Nov 11, sodium, serum SODIUM 141 MEQ/L 369-143 0083 mmol/L Nov 11, potassium, serum POTASSIUM 4.7 [...] 2012Jun 04, sodium, serum SODIUM 139 MEQ/L 640-662 4183 mmol/L Jun 04, potassium, serum POTASSIUM 4.6 [...] Oct 23, sodium, serum SODIUM 141 MEQ/L 958-646 2151 mmol/L Oct 23, potassium, serum POTASSIUM 4.5 [...]
--- OUTSIDE RECORDS SUMMARY | 2018-09-17 10:17 | XMS REPORT ---
:1975 [facility] [address] [place] [address] Dr. Leon [address] [place] [id number] Care Team Providers Name Role Phone Unavailable [...]
--- OUTSIDE RECORDS SUMMARY | 2018-09-17 10:17 | XMS REPORT | Continuity of Care Document ---
:1975 [facility] Team Providers Name Role Phone MD Javier, Lyric Unavailable Unavailable Insurance Providers Payer name Policy type / Policy ID Covered constitution party ID Policy Laws Coverage type MHEALTH - [facility] EDGE [employer] - [facility] MEDICARE B-[place]: [employer] - [facility]G [employer] - [facility] [employer] - [facility] [employer] - [facility] [employer] - [facility] [employer] - [facility] [employer] - [facility] [employer] - [facility] [employer] - [facility] [employer] - [facility] [employer] - [facility] [employer] - [facility] [employer] - [facility] [employer] - [facility] [employer] - [facility] [employer] - [facility] [employer] - [facility] Encounters Encounter Performer Location Date Lab Report Lyric Herrera MD [facility] Feb 23, 2014 Problems Problem Effective Dates [...] 2012Jun 04, platelet count PLATELETS 289 K/CMM [phone] /mm3 Jun 04, hemoglobin, blood HGB 7.9 g/dL 14.0-18.0 Low 2012Jun 04, hematocrit, blood HCT 23.7 % 42.0-54.0 Low 2012Jun 04, platelet count PLATELETS 289 K/CMM 510-419 0690 /mm3 Oct 23, hemoglobin, blood HGB 13.2 g/dL 14.0-18.0 Low 2012Oct 23, hematocrit, blood HCT 41.5 % 42.0-54.0 Low 2012Oct 23, platelet count PLATELETS 217 K/CMM [phone] /mm3 Jun 04, hemoglobin A1C, HGBA1C 5.1 % 2012 blood, as % of total hemoglobin Jun 04, cholesterol, serum CHOLESTEROL 292 mg/dl 120-200 High 2012Jun 04, triglyceride, serum, TRIGLYCERIDE 200 mg/dl 0-200 2012 fasting Jun 04, HDL cholesterol, HDL 37 mg/dl >=35 2012 serum Jun 04, LDL cholesterol, LDL 215 mg/dl 0-129 High 2012 serum Jun 04, sodium, serum SODIUM 139 MEQ/L 345-554 1375 mmol/L Jun 04, potassium, serum POTASSIUM 4.6 [...] 2011Nov 11, sodium, serum SODIUM 141 MEQ/L 767-997 6916 mmol/L Nov 11, potassium, serum POTASSIUM 4.7 [...] Jun 04, sodium, serum SODIUM 139 MEQ/L 779-737 8396 mmol/L Jun 04, potassium, serum POTASSIUM 4.6 [...] Oct 23, sodium, serum SODIUM 141 MEQ/L [phone] mmol/L Oct 23, potassium, serum POTASSIUM 4.5 [...]
[2018-09-17 10:52] LABS: Absolute Lymphocytes (CBC) 0.6 K/uL (0.7-4.9); Basophils % 0.2 % (0-1.3); Eosinophils % 2.2 % (0-4.4); Hematocrit 29.1 % (39.6-49.0); Lymphocytes % 9.1 % (15.3-44.8); MPV 7.2 fL (7.6-11.3); Monocytes % 6.3 % (3.3-12.3); RBC Red Blood Cell Count 3.35 M/uL (4.33-5.43)
[2018-09-17] MEDS ORDERED: ONDANSETRON 4 MG/2 ML VIAL ONE ×2 (10:55→11:16)
[2018-09-17 11:04] LABS: Albumin 3.4 g/dL (3.4-5.0); Bilirubin Direct 0.3 mg/dL (0-0.2); Bilirubin Total 0.8 mg/dL (0.2-1.0); Potassium 5.1 mmol/L (3.5-5.1); Protein, Total 7.9 g/dL (6.4-8.2)
[2018-09-17 11:36] LABS: Anisocytosis 1+; Blood Morphology Comment NOTED (NOT SEEN); Platelet Estimate ADEQ
--- NOTE | 2018-09-17 11:44 | RAD REPORT ---
EXAM DESCRIPTION: CT - Abdomen Pelvis Wo Contrast - 09/17/2018 11:10 am CLINICAL HISTORY: Abdominal pain vomiting COMPARISON: July 2018 TECHNIQUE: Computed axial tomography of the abdomen and pelvis was obtained. IV and oral contrast we re not requested. All CT scans are performed using dose optimization technique as appropriate and may include automated exposure control or mA/KV adjustment according to patient size. FINDINGS: The evaluation of solid organs, vessels and bowel is limited secondary to the lack of con trast administration. The liver, spleen, pancreas, and adrenals appear grossly normal. Small bilateral renal cysts. Atherosclerosis. Edema within the subcutaneous tissues The appendix is normal. There is no evidence of diverticulitis. Small umbilical hernia contains fat Very small right pleural effusion decreased in size from prior exam IMPRESSION: No acute abnormality is displayed.
[2018-09-17] MEDS ORDERED: PROMETHAZINE 25 MG/ML VIAL ONE (12:14)
[2018-09-17] MEDS ORDERED: cloNIDine HCl 0.1 MG TAB ONE (12:14)
--- NOTE | 2018-09-17 12:15 | EDPHYS ---
Physician Documentation [facility] Name: Chase Chacon Jr Age: 43 yrs Sex: Male : 1975 Arrival Date: 09/17/2018 Time: 10:18 Bed 19 [facility] MD: Kyler Ogden ED Physician [place] HPI: 09/17 11:50 This 43 yrs old Male presents to ER via Ambulatory with complaints of Vomiting.kb 11:50 The patient presents to the emergency department with nausea, vomiting. Onset: The kb symptoms/episode began/occurred yesterday. Possible causes: unknown. The symptoms are aggravated by nothing. The symptoms are alleviated by nothing. Associated signs and symptoms: Pertinent positives: nausea, vomiting, Pertinent negatives: abdominal pain, anorexia, belching, constipation, diarrhea, dysuria, fever, flatulence, GI bleeding, hematuria. Severity of symptoms: At their worst the symptoms were moderate in the emergency department the symptoms are unchanged. The patient has not experienced similar symptoms in the past. The patient has not recently seen a physician. Historical: - Allergies: 10:21 No Known Allergies; aa5 - Home Meds: 11:50 calcium acetate 667 mg oral cap 3 caps 3 times per day [Active]; alprazolam 0.5 mg Oral aa5 Tb24 1 tab once daily [Active]; ropinirole 1 mg oral tab at bedtime as needed for Restless Legs Syndrome [Active]; tizanidine 2 mg oral tab twice a day [Active]; ramipril 10 mg Oral cap at bedtime [Active]; trazodone 100 mg Oral tab nightly [Active]; nifedipine 90 mg Oral tr24 twice a day [Active]; Novolog Sub-Q 10 10 UNITS AM, 15 UNITS LUNCH AND 10 UNITS AT NIGHT [Active]; - PMHx: 10:21 Diabetes - NIDDM; Dialysis; ESRD; Gastroparesis; Hypertension; kidney disease; aa5 - PSHx: 10:21 cataracts; Dialysis fistula to left arm; aa5 - Immunization history:: Adult Immunizations up to date. - Ebola Screening: : No symptoms or risks identified at this time. - Social history:: Smoking status: Patient/guardian denies using tobacco. ROS: 11:49 Constitutional: Negative for fever, chills, and weight loss, ENT: Negative for injury, kb pain, and discharge, Neck: Negative for injury, pain, and swelling, Cardiovascular: Negative for chest pain, palpitations, and edema, Respiratory: Negative for shortness of breath, cough, wheezing, and pleuritic chest pain, Back: Negative for injury and pain, : Negative for injury, bleeding, discharge, and swelling, MS/Extremity: Negative for injury and deformity, Skin: Negative for injury, rash, and discoloration, Neuro: Negative for headache, weakness, numbness, tingling, and seizure. 11:49 Abdomen/GI: Positive for nausea and vomiting, Negative for abdominal pain, diarrhea, constipation, abdominal cramps, abdominal distension, anorexia. Exam: 11:49 Constitutional: This is a well developed, well nourished patient who is awake, alert, kb and in no acute distress. Head/Face: Normocephalic, atraumatic. Chest/axilla: Normal chest wall appearance and motion. Nontender with no deformity. No lesions are appreciated. Cardiovascular: Regular rate and rhythm with a normal S1 and S2. No gallops, murmurs, or rubs. Normal PMI, no JVD. No pulse deficits. Respiratory: Lungs have equal breath sounds bilaterally, clear to auscultation and percussion. No rales, rhonchi or wheezes noted. No increased work of breathing, no retractions or nasal flaring. Back: No spinal tenderness. No costovertebral tenderness. Full range of motion. Skin: Warm, dry with normal turgor. Normal color with no rashes, no lesions, and no evidence of cellulitis. MS/ Extremity: Pulses equal, no cyanosis. Neurovascular intact. Full, normal range of motion. Neuro: Awake and alert, GCS 15, oriented to person, place, time, and situation. Cranial nerves II-XII grossly intact. Motor strength 5/5 in all extremities. Sensory grossly intact. Cerebellar exam normal. Normal gait. 11:49 Abdomen/GI: Inspection: abdomen appears normal, Bowel sounds: normal, in all quadrants, Palpation: soft, in all quadrants, mild abdominal tenderness, in the right upper quadrant, left upper quadrant and left lower quadrant. Vital Signs: 10:21 BP 205 / 101; Pulse 91; Resp 16 S; Temp 98.5(TE); Pulse Ox 96% on R/A; Weight 86.18 kg aa5 (R); Height 5 ft. 6 in. (167.64 cm) (R); Pain 6/10; 11:00 BP 215 / 104; Pulse 100; Resp 18 S; Pulse Ox 97% on R/A; aa5 12:00 BP 193 / 95; Pulse 90; Resp 16 S; Pulse Ox 97% on R/A; aa5 10:21 Body Mass Index 30.67 (86.18 kg, 167.64 cm) aa5 MDM: 10:23 Patient medically screened. kb 11:49 Data reviewed: vital signs, nurses notes. Data interpreted: Pulse oximetry: on room air kb is 96 %. Interpretation: normal. 12:14 Counseling: I had a detailed discussion with the patient and/or guardian regarding: the kb historical points, exam findings, and any diagnostic results supporting the discharge/admit diagnosis, lab results, radiology results, the need for outpatient follow up, a family practitioner, to return to the emergency department if symptoms worsen or persist or if there are any questions or concerns that arise at home. 09/17 10:27 Order name: Basic Metabolic Panel; Complete Time: 11:13 kb 09/17 10:27 Order name: CBC with Diff; Complete Time: 11:38 kb 09/17 10:27 Order name: Hepatic Function; Complete Time: 11:13 kb 09/17 10:27 Order name: Lipase; Complete Time: 11:13 kb 09/17 11:00 Order name: CT Abd/Pelvis - Without Contrast; Complete Time: 11:48 kb 09/17 11:36 Order name: Manual Differential; Complete Time: 11:38 EDMS 09/17 10:27 Order name: IV Saline Lock; Complete Time: 10:36 kb 09/17 10:27 Order name: Labs collected and sent; Complete Time: 10:36 kb Administered Medications: 10:40 Drug: Zofran 4 mg Route: IVP; Site: right forearm; aa5 10:50 Follow up: Response: No adverse reaction aa5 11:00 Drug: Zofran 4 mg Route: IVP; Site: right forearm; aa5 12:22 Follow up: Response: Nausea is decreased bp 12:00 Drug: Phenergan 12.5 mg Route: IVP; Site: right antecubital; bp 12:23 Follow up: Response: Nausea is decreased bp 12:00 Drug: cloNIDine 0.1 mg Route: PO; bp 12:23 Follow up: Response: Marked relief of symptoms bp Disposition: 09/17/18 12:15 Discharged to Home. Impression: Nausea and vomiting. - Condition is Stable. - Discharge Instructions: Nausea and Vomiting, Adult, [id number]. - Prescriptions for promethazine 25 mg Oral Tablet - take 1 tablet by ORAL route every 8 hours As needed; 20 tablet. - Medication Reconciliation Form, Thank You Letter, Antibiotic Education, Prescription Opioid Use form. - Follow up: Emergency Department; When: As needed; Reason: Worsening of condition. Follow up: Private Physician; When: 2 - 3 days; Reason: Recheck today's complaints, Continuance of care, Re-evaluation by your physician. Addendum: 09/23/2018 16:41 Co-signature as Attending Physician, [place] MD I agree with the assessment and c andrade plan of care. Signatures: Dispatcher [employer] EDSD Meghna Ferrer, BAGGAGE AGENT SUPERVISOR-C BAGGAGE AGENT SUPERVISOR-Ckb [place] MD MD cha Calderon, Audri, RN RN Surinder Moulton, RN RN bp Corrections: (The following items were deleted from the chart) 09/17 11:20 10:21 Allergies: Promethazine; yohan almanzar 12:30 12:15 09/17/2018 12:15 Discharged to Home. Impression: Nausea and vomiting. Condition bp is Stable. Forms are Medication Reconciliation Form, Thank You Letter, Antibiotic Education, Prescription Opioid Use. Follow up: Emergency Department; When: As needed; Reason: Worsening of condition. Follow up: Private Physician; When: 2 - 3 days; Reason: Recheck today's complaints, Continuance of care, Re-evaluation by your physician. kb
--- NOTE | 2018-09-17 12:15 | ER ---
Nurse's Notes [facility] Name: Chase Chacon Jr Age: 43 yrs Sex: Male : 1975 Arrival Date: 09/17/2018 Time: 10:18 Bed 19 [facility] MD: Kyler Ogden Diagnosis: Nausea and vomiting Presentation: 09/17 10:21 Presenting complaint: Presenting complaint: Patient states: nausea and vomiting since aa5 yesterday. Pt reports last dialysis was yesterday. 10:21 Transition of care: patient was not received from another setting of care. Onset of aa5 symptoms was September 2018. Risk Assessment: Do you want to hurt yourself or someone else? Patient reports no desire to harm self or others. Care prior to arrival: None. 10:21 Acuity: LEON 2 aa5 10:21 Method Of Arrival: Ambulatory aa5 10:21 Initial Sepsis Screen: Does the patient meet any 2 criteria? No. Patient's initial aa5 sepsis screen is negative. Does the patient have a suspected source of infection? No. Patient's initial sepsis screen is negative. Historical: - Allergies: 10:21 No Known Allergies; aa5 - Home Meds: 11:50 calcium acetate 667 mg oral cap 3 caps 3 times per day [Active]; alprazolam 0.5 mg Oral aa5 Tb24 1 tab once daily [Active]; ropinirole 1 mg oral tab at bedtime as needed for Restless Legs Syndrome [Active]; tizanidine 2 mg oral tab twice a day [Active]; ramipril 10 mg Oral cap at bedtime [Active]; trazodone 100 mg Oral tab nightly [Active]; nifedipine 90 mg Oral tr24 twice a day [Active]; Novolog Sub-Q 10 10 UNITS AM, 15 UNITS LUNCH AND 10 UNITS AT NIGHT [Active]; - PMHx: 10:21 Diabetes - NIDDM; Dialysis; ESRD; Gastroparesis; Hypertension; kidney disease; aa5 - PSHx: 10:21 cataracts; Dialysis fistula to left arm; aa5 - Immunization history:: Adult Immunizations up to date. - Ebola Screening: : No symptoms or risks identified at this time. - Social history:: Smoking status: Patient/guardian denies using tobacco. Screenin:30 Abuse screen: Denies threats or abuse. Nutritional screening: No deficits noted. aa5 Tuberculosis screening: No symptoms or risk factors identified. Fall Risk None identified. Assessment: 10:25 General: Appears comfortable, Behavior is calm, cooperative. Pain: Complains of pain in aa5 right upper quadrant, left upper quadrant, right lower quadrant and left lower quadrant Pain does not radiate. Pain currently is 6 out of 10 on a pain scale. Quality of pain is described as Pt states "It just feels sore all over" Pain began this morning Is continuous. Neuro: Level of Consciousness is awake, alert, obeys commands, Oriented to person, place, time, situation. Cardiovascular: Heart tones S1 S2 present Rhythm is regular Dialysis shunt: in the left arm, with palpable thrill, with auscultated bruit, with no erythema, with no edema, no bleeding noted. Respiratory: Airway is patent Respiratory effort is even, unlabored, Respiratory pattern is regular, symmetrical. GI: Abdomen is round Bowel sounds present X 4 quads. Abd is soft and non tender X 4 quads. Reports nausea, vomiting, Patient currently denies diarrhea. : No signs and/or symptoms were reported regarding the genitourinary system. EENT: No signs and/or symptoms were reported regarding the EENT system. Derm: Skin is pink, warm \\T\\ dry. Musculoskeletal: Range of motion: intact in all extremities. 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 aa5 11:00 Reassessment: Patient is alert, oriented x 3, equal unlabored respirations, skin aa5 warm/dry/pink. 11:10 Reassessment: Pt taken to CT via wheelchair . aa5 11:50 Reassessment: Patient is alert, oriented x 3, equal unlabored respirations, skin aa5 warm/dry/pink. Pt states "I took my nifedipine this morning but I threw it back up that's why my blood pressure is so high". Pt reports nausea has improved. . 12:28 Reassessment: PT D/C HOME AMBULATORY WITH FAMILY, DX WITH NAUSEA AND VOMITING. bp Vital Signs: 10:21 BP 205 / 101; Pulse 91; Resp 16 S; Temp 98.5(TE); Pulse Ox 96% on R/A; Weight 86.18 kg aa5 (R); Height 5 ft. 6 in. (167.64 cm) (R); Pain 6/10; 11:00 BP 215 / 104; Pulse 100; Resp 18 S; Pulse Ox 97% on R/A; aa5 12:00 BP 193 / 95; Pulse 90; Resp 16 S; Pulse Ox 97% on R/A; aa5 10:21 Body Mass Index 30.67 (86.18 kg, 167.64 cm) aa5 ED Course: 10:18 Patient arrived in ED. as 10:18 Kyler Ogden MD is Private Physician. as 10:21 Arm band placed on Patient placed in an exam room, on a stretcher. aa5 10:21 Patient has correct armband on for positive identification. Bed in low position. Call aa5 light in reach. Side rails up X 1. 10:22 Meghna Ferrer FNP-C is [facility]. kb 10:22 Sunny Lake MD is Attending Physician. kb 10:26 Gwendolyn Foster, RN is Primary Nurse. aa5 10:27 Triage completed. aa5 10:34 Initial lab(s) drawn, by ca, sent to lab. Inserted saline lock: 20 gauge in right aa5 forearm, using aseptic technique. Blood collected. 11:10 CT Abd/Pelvis - Without Contrast In Process Unspecified. EDMS 12:10 Primary Nurse role handed off by Gwendolyn Foster, JENNIE bp 12:10 Surinder Gagnon, JENNIE is Primary Nurse. bp 12:29 No provider procedures requiring assistance completed. IV discontinued, intact, bp bleeding controlled, No redness/swelling at site. Pressure dressing applied. Administered Medications: 10:40 Drug: Zofran 4 mg Route: IVP; Site: right forearm; aa5 10:50 Follow up: Response: No adverse reaction aa5 11:00 Drug: Zofran 4 mg Route: IVP; Site: right forearm; aa5 12:22 Follow up: Response: Nausea is decreased bp 12:00 Drug: Phenergan 12.5 mg Route: IVP; Site: right antecubital; bp 12:23 Follow up: Response: Nausea is decreased bp 12:00 Drug: cloNIDine 0.1 mg Route: PO; bp 12:23 Follow up: Response: Marked relief of symptoms bp Outcome: 12:15 Discharge ordered by . kb 12:29 Discharged to home ambulatory, with family. bp 12:29 Condition: stable 12:29 Discharge instructions given to patient, Instructed on discharge instructions, follow up and referral plans. medication usage, Demonstrated understanding of instructions, follow-up care, medications, Prescriptions given X 1. 12:30 Patient left the ED. bp Signatures: Dispatcher [employer] EDMS Meghna Ferrer, SCUHYLER RAMÍREZ-Enedina Jaimes Audri RN RN aa5 Surinder Gagnon RN RN bp Corrections: (The following items were deleted from the chart) 11:20 10:21 Allergies: Promethazine; aa5 aa5 12:15 11:30 BP 215 / 104; Pulse 100bpm; Resp 18bpm; Spontaneous; Pulse Ox 97% RA; aa5 aa5 12:16 11:50 Reassessment: Patient is alert, oriented x 3, equal unlabored respirations, skin aa5 warm/dry/pink. Pt states "I took my nifedipine this morning but I threw it back up that's why my blood pressure is so high" . aa5
[2018-09-17 12:35] VITALS: TEMP 98.5
[2018-09-17 12:37] VITALS: O2SAT 97
[2018-09-17 12:38] VITALS: BP 193/95
== END 2018-09-17 12:30 | disposition home or self-care (01) ==
LOC: ER 10:12
DX: R11.2 Nausea with vomiting, unspecified (principal); E11.22 Type 2 diabetes mellitus with diabetic chronic kidney disease; I12.0 Hypertensive chronic kidney disease with stage 5 chronic kidney disease or end stage renal disease; N18.6 End stage renal disease; Z79.4 Long term (current) use of insulin; Z99.2 Dependence on renal dialysis
CPT/HCPCS: 85025; 80048; 36415; 80076; 83690; 74176; 99284; J2550; J2405 ×2

== ENCOUNTER 2019-01-22 18:02 | Emergency (ER) | payer OTHER ==
[2019-01-22 19:52] LABS: Absolute Lymphocytes (CBC) 0.6 K/uL (0.7-4.9); Basophils % 0.5 % (0-1.3); Hematocrit 39.3 % (39.6-49.0); Lymphocytes % 12.7 % (15.3-44.8); MPV 7.2 fL (7.6-11.3); RBC Red Blood Cell Count 4.45 M/uL (4.33-5.43)
[2019-01-22 19:53] LABS: Protime INR 1.1
[2019-01-22 20:02] LABS: ALT/SGPT 25 U/L (12-78); AST/SGOT 15 U/L (15-37); Albumin 3.4 g/dL (3.4-5.0); Alkaline Phosphatase 119 U/L (45-117); BUN Blood Urea Nitrogen 33 mg/dL (7-18); Bicarbonate 31 mmol/L (21-32); Bilirubin Direct 0.2 mg/dL (0-0.2); Bilirubin Total 0.6 mg/dL (0.2-1.0); Glucose Level 170 mg/dL (74-106); Magnesium 2.2 mg/dL (1.8-2.4); NT PRO-BNP 16845 pg/mL (<125); Potassium 4.5 mmol/L (3.5-5.1); Protein, Total 8.3 g/dL (6.4-8.2); Sodium Level 139 mmol/L (136-145); Troponin (Emerg Dept Use Only) < 0.02 ng/mL (0.0-0.045)
--- NOTE | 2019-01-22 20:07 | RAD REPORT ---
EXAM DESCRIPTION: RAD - Chest Single View - 01/22/2019 7:53 pm CLINICAL HISTORY: CHEST PAIN Chest pain. COMPARISON: Chest Pa And Lat (2 Views) dated 08/04/2018; Chest Single View dated 08/02/2018; Chest Sin gle View dated 07/24/2018; Chest Single View dated 06/25/2018 FINDINGS: Portable technique limits examination quality. The lungs are grossly clear. The heart is upper limit normal in size. No displaced fractures. IMPRESSION: No acute intrathoracic process suspected.
[2019-01-22] MEDS ORDERED: cloNIDine HCl 0.1 MG TAB ONE (22:54)
[2019-01-22] MEDS ORDERED: ASPIRIN 81 MG CHEWABLE TABLET ONE (22:54)
--- NOTE | 2019-01-23 00:16 | ER ---
Nurse's Notes [facility] Name: Chase Chacon Jr Age: 43 yrs Sex: Male : 1975 Arrival Date: 01/22/2019 Time: 18:04 Bed 17 Private MD: Diagnosis: Chest pain, unspecified;Hypertensive heart and chronic kidney disease Presentation: 01/22 18:45 Presenting complaint: Patient states: Left sided chest pain that has been intermittent aj1 since 1500 today. Denies palpitations, shortness of breath. Denies cough, congestion, fever. Transition of care: patient was not received from another setting of care. Onset of symptoms was January 22, 2019 at 15:00. Risk Assessment: Do you want to hurt yourself or someone else? Patient reports no desire to harm self or others. Initial Sepsis Screen: Does the patient meet any 2 criteria? No. Patient's initial sepsis screen is negative. Does the patient have a suspected source of infection? No. Patient's initial sepsis screen is negative. Care prior to arrival: None. 18:45 Method Of Arrival: Ambulatory aj1 18:45 Acuity: LEON 3 aj1 Triage Assessment: 18:48 General: Appears in no apparent distress. comfortable, Behavior is calm, cooperative, aj1 appropriate for age. Pain: Complains of pain in left breast Pain currently is 2 out of 10 on a pain scale. Neuro: Level of Consciousness is awake, alert, obeys commands. Cardiovascular: Patient's skin is warm and dry. Respiratory: Airway is patent Respiratory effort is even, unlabored, Respiratory pattern is regular, symmetrical. Historical: - Allergies: 18:48 No Known Allergies; aj1 - Home Meds: 18:48 alprazolam 0.5 mg Oral Tb24 1 tab once daily [Active]; calcium acetate 667 mg Oral cap aj1 3 caps 3 times per day [Active]; nifedipine 90 mg Oral tr24 twice a day [Active]; Novolog Sub-Q 10 10 UNITS AM, 15 UNITS LUNCH AND 10 UNITS AT NIGHT [Active]; ramipril 10 mg Oral cap at bedtime [Active]; ropinirole 1 mg Oral tab at bedtime as needed for Restless Legs Syndrome [Active]; ropinirole 1 mg Oral tab nightly [Active]; tizanidine 2 mg Oral tab twice a day [Active]; tizanidine 2 mg Oral tab twice a day [Active]; trazodone 100 mg Oral tab nightly [Active]; - PMHx: 18:48 Diabetes - NIDDM; Dialysis; ESRD; Gastroparesis; Hypertension; kidney disease; aj1 - Immunization history:: Flu vaccine is up to date. - Social history:: Smoking status: Patient/guardian denies using tobacco. - Ebola Screening: : Patient denies travel to an Ebola-affected area in the 21 days before illness onset. Screenin:15 Abuse screen: Denies threats or abuse. Denies injuries from another. Nutritional cc3 screening: No deficits noted. Tuberculosis screening: No symptoms or risk factors identified. Fall Risk Ambulatory Aid- None/Bed Rest/Nurse Assist (0 pts). Gait- Normal/Bed Rest/Wheelchair (0 pts) Mental Status- Oriented to own ability (0 pts). Assessment: 19:15 Pain: Pain does not radiate. Pain radiates to intermittent left sided chest pain Pain cc3 began at 1500H today afternoon. 19:30 Reassessment: Patient appears in no apparent distress at this time. Patient and/or cc3 family updated on plan of care and expected duration. Pain level reassessed. Patient is alert, oriented x 3, equal unlabored respirations, skin warm/dry/pink. Received this male patient from morning shift [facility] as a case of chest tightness but currently patient denies chest pain. Patient denies pain at this time. General: Appears in no apparent distress. comfortable, Behavior is calm, cooperative, appropriate for age. Pain: Denies pain. Neuro: Level of Consciousness is awake, alert, obeys commands, Oriented to person, place, time, situation, Appropriate for age. Cardiovascular: Denies chest pain, Heart tones S1 S2 present Capillary refill < 3 seconds in bilateral fingers Patient's skin is warm and dry. Dialysis shunt: in the left arm fistula, with palpable thrill, with auscultated bruit, with no erythema, with no edema, no bleeding noted. Respiratory: Airway is patent Respiratory effort is even, unlabored, Respiratory pattern is regular, symmetrical, Breath sounds are clear bilaterally. GI: Abdomen is round non-distended, Bowel sounds present X 4 quads. Abd is soft and non tender X 4 quads. : No signs and/or symptoms were reported regarding the genitourinary system. EENT: No signs and/or symptoms were reported regarding the EENT system. Derm: Skin is intact, is healthy with good turgor, Skin is pink, warm \T\ dry. normal. Musculoskeletal: Circulation, motion, and sensation intact. Range of motion: intact in all extremities. 20:18 Reassessment: Patient appears in no apparent distress at this time. Patient and/or cc3 family updated on plan of care and expected duration. Pain level reassessed. Patient is alert, oriented x 3, equal unlabored respirations, skin warm/dry/pink. Patient denies pain at this time. 21:25 Reassessment: Patient appears in no apparent distress at this time. Patient and/or cc3 family updated on plan of care and expected duration. Pain level reassessed. Patient is alert, oriented x 3, equal unlabored respirations, skin warm/dry/pink. Patient denies pain at this time. 22:05 Reassessment: Patient appears in no apparent distress at this time. Patient and/or cc3 family updated on plan of care and expected duration. Pain level reassessed. Patient is alert, oriented x 3, equal unlabored respirations, skin warm/dry/pink. Patient denies pain at this time. 23:19 Reassessment: Patient appears in no apparent distress at this time. Patient and/or cc3 family updated on plan of care and expected duration. Pain level reassessed. Patient is alert, oriented x 3, equal unlabored respirations, skin warm/dry/pink. Patient denies pain at this time. 01/23 00:30 Reassessment: Patient appears in no apparent distress at this time. Patient and/or cc3 family updated on plan of care and expected duration. Pain level reassessed. Patient is alert, oriented x 3, equal unlabored respirations, skin warm/dry/pink. PA Page informed of the latest blood pressure as charted and discharged the patient home, no prescription given. IV cannula removed and patient left ER vitally stable and ambulatory with his family, denies chest pain nor headache nor dizziness. No valuables left in the patient's room. Patient denies pain at this time. Patient states feeling better. Patient states symptoms have improved. Vital Signs: 01/22 18:48 BP 141 / 87; Pulse 68; Resp 16; Temp 97.9; Pulse Ox 97% on R/A; Weight 90.72 kg (R); aj1 Height 5 ft. 6 in. (167.64 cm) (R); Pain 2/10; 19:29 BP 170 / 86; Pulse 69; Resp 15 S; Temp 98.3(O); Pulse Ox 98% on R/A; Pain 0/10; cc3 20:15 BP 168 / 82; Pulse 67; Resp 18 S; Pulse Ox 97% on R/A; cc3 21:30 BP 182 / 91; Pulse 67; Resp 21 S; Pulse Ox 98% on R/A; cc3 22:00 BP 193 / 82; Pulse 74; Resp 21 S; Pulse Ox 98% on R/A; cc3 22:15 BP 203 / 98; Pulse 68; Resp 20 S; Pulse Ox 98% on R/A; Pain 0/10; cc3 22:30 BP 192 / 91; Pulse 65; Resp 18 S; Pulse Ox 95% on R/A; cc3 22:45 BP 178 / 90; Pulse 64; Resp 15 S; Pulse Ox 96% on R/A; cc3 23:20 BP 182 / 89; Pulse 66; Resp 18 S; Pulse Ox 98% on R/A; cc3 01/23 00:23 BP 186 / 99; Pulse 69; Resp 19 S; Pulse Ox 100% on R/A; Pain 0/10; cc3 01/22 18:48 Body Mass Index 32.28 (90.72 kg, 167.64 cm) aj ED Course: 01/22 18:04 Patient arrived in ED. cf2 18:47 Triage completed. aj1 18:48 Arm band placed on Patient placed in an exam room. aj1 18:52 Sunny Truong PA is PHCP. cp 18:52 Sunny Lake MD is Attending Physician. cp 18:56 Leland West LVN is Primary Nurse. em 19:15 Patient has correct armband on for positive identification. Placed in gown. Bed in low cc3 position. Call light in reach. Side rails up X2. library monitor on. Pulse ox on. NIBP on. 19:15 Patient maintains SpO2 saturation greater than 95% on room air. cc3 19:26 Initial lab(s) drawn, by me, sent to lab. Inserted saline lock: 22 gauge in right lt1 wrist, using aseptic technique. 19:54 XRAY Chest (1 view) In Process Unspecified. EDMS 20:07 Notified Nurse Practitioner and/or Physician Supervisor [employer] of a critical lab result(s), an[place] Creatinine 6.61. Sunny TREVINO notified. 01/23 00:30 No provider procedures requiring assistance completed. IV discontinued, intact, cc3 bleeding controlled, No redness/swelling at site. Pressure dressing applied. Administered Medications: 01/22 22:50 Drug: cloNIDine 0.2 mg Route: PO; cc3 23:15 Follow up: Response: No adverse reaction; Blood pressure is lowered cc3 22:50 Drug: Aspirin Chewable Tablet 324 mg Route: PO; cc3 23:36 Follow up: Response: No adverse reaction cc3 Outcome: 01/23 00:14 Discharge ordered by MD. cp 00:30 Discharged to home ambulatory, with family. cc3 00:30 Condition: stable 00:30 Discharge instructions given to patient, family, Instructed on discharge instructions, follow up and referral plans. Demonstrated understanding of instructions, follow-up care. 00:31 Patient left the ED. cc3 Signatures: Dispatcher [employer] EDMS Terra Jiménez RN RN aj1 Leland West, FELLER SEAM OPERATOR FELLER SEAM OPERATOR Marce Parikh RN RN Sunny Glynn PA PA cp Cordel, Charlene cc3 Nurys Friend lt1 Damaso Lechuga cf2 Corrections: (The following items were deleted from the chart) 01/22 22:06 22:05 Reassessment: Patient appears in no apparent distress at this time. Patient cc3 and/or family updated on plan of care and expected duration. Pain level reassessed. Patient is alert, oriented x 3, equal unlabored respirations, skin warm/dry/pink. cc3
--- NOTE | 2019-01-23 00:17 | EDPHYS ---
Physician Documentation [facility] Name: Chase Chacon Jr Age: 43 yrs Sex: Male : 1975 Arrival Date: 01/22/2019 Time: 18:04 Bed 17 Private MD: ED Physician Sunny Lake HPI: 01/22 19:05 This 43 yrs old Male presents to ER via Ambulatory with complaints of Chest cp Tightness. 19:05 The patient or guardian reports chest pain that is located primarily in the anterior cp chest wall, left. 19:05 Onset: today. cp 19:05 The pain does not radiate. The chest pain is described as sharp. Duration: The patient cp or guardian reports multiple episodes, that are intermittent, with no pattern. Modifying factors: the symptoms are aggravated by nothing. Severity of pain: in the emergency department the pain has resolved and did so just prior to arrival. Patient reports having cardiac cath that was normal in July or August of 2018. 19:05 Associated signs and symptoms: Pertinent negatives: abdominal pain, cough, diaphoresis, cp headache, lower extremity pain, lower extremity swelling, lightheadedness, shortness of breath, syncope. Historical: - Allergies: 18:48 No Known Allergies; aj1 - Home Meds: 18:48 alprazolam 0.5 mg Oral Tb24 1 tab once daily [Active]; calcium acetate 667 mg Oral cap aj1 3 caps 3 times per day [Active]; nifedipine 90 mg Oral tr24 twice a day [Active]; Novolog Sub-Q 10 10 UNITS AM, 15 UNITS LUNCH AND 10 UNITS AT NIGHT [Active]; ramipril 10 mg Oral cap at bedtime [Active]; ropinirole 1 mg Oral tab at bedtime as needed for Restless Legs Syndrome [Active]; ropinirole 1 mg Oral tab nightly [Active]; tizanidine 2 mg Oral tab twice a day [Active]; tizanidine 2 mg Oral tab twice a day [Active]; trazodone 100 mg Oral tab nightly [Active]; - PMHx: 18:48 Diabetes - NIDDM; Dialysis; ESRD; Gastroparesis; Hypertension; kidney disease; aj1 - Immunization history:: Flu vaccine is up to date. - Social history:: Smoking status: Patient/guardian denies using tobacco. - Ebola Screening: : Patient denies travel to an Ebola-affected area in the 21 days before illness onset. ROS: 19:12 Constitutional: Negative for body aches, chills, fever, poor PO intake. cp 19:12 Eyes: Negative for injury, pain, redness, and discharge. cp 19:12 ENT: Negative for drainage from ear(s), ear pain, sore throat, difficulty swallowing, difficulty handling secretions. 19:12 Cardiovascular: Positive for chest pain, Negative for edema, palpitations. 19:12 Respiratory: Negative for cough, shortness of breath, wheezing. 19:12 Abdomen/GI: Negative for abdominal pain, nausea, vomiting, and diarrhea. 19:12 Back: Negative for pain at rest, pain with movement, radiated pain. 19:12 Neuro: Negative for altered mental status, headache, syncope, weakness. 19:12 All other systems are negative. Exam: 19:10 ECG was reviewed by the Attending Physician. cp 19:17 Constitutional: The patient appears in no acute distress, alert, awake, cp non-diaphoretic, non-toxic, well developed, well nourished. 19:17 Head/Face: Normocephalic, atraumatic. cp 19:17 Eyes: Periorbital structures: appear normal, Pupils: equal, round, and reactive to light and accomodation, Extraocular movements: intact throughout, Conjunctiva: normal, no exudate, no injection, Sclera: no appreciated abnormality, Lids and lashes: appear normal, bilaterally. 19:17 ENT: External ear(s): are unremarkable, Nose: is normal, Mouth: Lips: moist, Oral mucosa: pink and intact, moist, Posterior pharynx: is normal, airway is patent, no erythema, no exudate. 19:17 Neck: ROM/movement: is normal, is supple, without pain, no range of motions limitations, no nuchal rigidity. 19:17 Chest/axilla: Inspection: normal, Palpation: is normal, no crepitus, no tenderness. 19:17 Cardiovascular: Rate: normal, Rhythm: regular, Pulses: Pulses are 2+ in right radial artery and left radial artery. Edema: is not appreciated, JVD: is not appreciated. 19:17 Respiratory: the patient does not display signs of respiratory distress, Respirations: labored breathing, is not present, intercostal retractions, are absent, shallow respirations, are not present, tachypnea, is not appreciated, Breath sounds: are clear throughout, no decreased breath sounds, no stridor, no wheezing. 19:17 Abdomen/GI: Inspection: abdomen appears normal, Palpation: abdomen is soft and non-tender, in all quadrants. 19:17 Back: pain, is absent, ROM is normal. 19:17 Skin: cellulitis, is not appreciated, no rash present. 19:17 Neuro: Orientation: to person, place \T\ time. Mentation: is normal, Cerebellar function: is grossly normal, Motor: moves all fours, strength is normal, Sensation: no obvious gross deficits. 23:35 ECG was reviewed by the Attending Physician. cp Vital Signs: 18:48 BP 141 / 87; Pulse 68; Resp 16; Temp 97.9; Pulse Ox 97% on R/A; Weight 90.72 kg (R); aj1 Height 5 ft. 6 in. (167.64 cm) (R); Pain 2/10; 19:29 BP 170 / 86; Pulse 69; Resp 15 S; Temp 98.3(O); Pulse Ox 98% on R/A; Pain 0/10; cc3 20:15 BP 168 / 82; Pulse 67; Resp 18 S; Pulse Ox 97% on R/A; cc3 21:30 BP 182 / 91; Pulse 67; Resp 21 S; Pulse Ox 98% on R/A; cc3 22:00 BP 193 / 82; Pulse 74; Resp 21 S; Pulse Ox 98% on R/A; cc3 22:15 BP 203 / 98; Pulse 68; Resp 20 S; Pulse Ox 98% on R/A; Pain 0/10; cc3 22:30 BP 192 / 91; Pulse 65; Resp 18 S; Pulse Ox 95% on R/A; cc3 22:45 BP 178 / 90; Pulse 64; Resp 15 S; Pulse Ox 96% on R/A; cc3 23:20 BP 182 / 89; Pulse 66; Resp 18 S; Pulse Ox 98% on R/A; cc3 01/23 00:23 BP 186 / 99; Pulse 69; Resp 19 S; Pulse Ox 100% on R/A; Pain 0/10; cc3 01/22 18:48 Body Mass Index 32.28 (90.72 kg, 167.64 cm) aj1 MDM: 01/22 18:53 Patient medically screened. ralph 01/23 00:13 The patient was given aspirin in the Emergency Department. cp 00:13 Differential diagnosis: abnormal EKG, acute myocardial infarction, chest wall pain, cp costochondritis, pleurisy, pneumonia, pneumothorax, pulmonary embolus, stable angina, unstable angina. Data reviewed: vital signs, nurses notes, lab test result(s), EKG, radiologic studies, plain films. Test interpretation: by ED physician or midlevel provider: ECG, plain radiologic studies. 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 Special discussion: Based on the patient's history, exam, and Dx evaluation, there is no indication for emergent intervention or inpatient Tx. It is understood by the patient/guardian that if the Sx's persist or worsen they need to return immediately for re-evaluation. 01/22 18:55 Order name: Basic Metabolic Panel; Complete Time: 20:51 cp 01/22 20:51 Interpretation: Normal except: GLUC 170; BUN 33; CRE 6.61; GFR 9. cp 01/22 18:55 Order name: CBC with Diff; Complete Time: 20:51 cp 01/22 20:51 Interpretation: Normal except: HGB 12.6; HCT 39.3; PLT 107; RDW 22.9; MPV 7.2; LYM% cp 12.7; LYMA 0.6. 01/22 18:55 Order name: LFT's; Complete Time: 20:51 cp 01/22 18:55 Order name: Magnesium; Complete Time: 20:51 cp 01/22 18:55 Order name: NT PRO-BNP; Complete Time: 20:51 cp 01/22 18:55 Order name: PT-INR; Complete Time: 20:51 cp 01/22 18:55 Order name: Troponin (emerg Dept Use Only); Complete Time: 20:51 cp 01/22 20:51 Interpretation: Within normal limits: TROPED < 0.02. cp 01/22 18:55 Order name: XRAY Chest (1 view); Complete Time: 20:51 01/22 18:55 Order name: EKG; Complete Time: 18:56 01/22 18:55 Order name: Cardiac monitoring; Complete Time: 19:13 cp 01/22 23:17 Order name: EKG; Complete Time: 23:17 cp 01/22 23:17 Order name: Troponin I 01/22 18:55 Order name: EKG - Nurse/Tech; Complete Time: 19:13 01/22 18:55 Order name: IV Saline Lock; Complete Time: 19:27 cp 01/22 18:55 Order name: Labs collected and sent; Complete Time: 19:27 01/22 18:55 Order name: O2 Per Protocol; Complete Time: 19:14 01/22 18:55 Order name: O2 Sat Monitoring; Complete Time: 19:14 01/22 23:17 Order name: EKG - Nurse/Tech; Complete Time: 23:36 cp EC/08 19:10 Rate is 69 beats/min. Rhythm is regular. VT interval is normal. QRS interval is normal. cp QT interval is normal. T waves are Flattened in lead aVL. Interpreted by me. Reviewed by me. 23:35 Rate is 66 beats/min. Rhythm is regular. VT interval is normal. QRS interval is normal. cp QT interval is normal. T waves are Flattened in lead aVL. Interpreted by me. Reviewed by me. Administered Medications: 22:50 Drug: cloNIDine 0.2 mg Route: PO; cc3 23:15 Follow up: Response: No adverse reaction; Blood pressure is lowered cc3 22:50 Drug: Aspirin Chewable Tablet 324 mg Route: PO; cc3 23:36 Follow up: Response: No adverse reaction cc3 Disposition: 01/23/19 00:14 Discharged to Home. Impression: Chest pain, unspecified, Hypertensive heart and chronic kidney disease. - Condition is Stable. - Discharge Instructions: Nonspecific Chest Pain, Aspirin and Your Heart, Managing Your Hypertension. - Medication Reconciliation Form, Thank You Letter, Antibiotic Education, Prescription Opioid Use form. - Follow up: Private Physician; When: 2 - 3 days; Reason: Recheck today's complaints. - Problem is new. - Symptoms have improved. Addendum: 01/24/2019 13:20 Co-signature as Attending Physician, Sunny Lake MD I agree with the assessment and c andrade plan of care. Signatures: Dispatcher [employer] EDMS Terra Jiménez, RN RN aj1 Sunny Lake MD MD cha Page, Corey, PA PA Judi Orellana cc3 Corrections: (The following items were deleted from the chart) 01/23 00:31 00:14 01/23/2019 00:14 Discharged to Home. Impression: Chest pain, unspecified; cc3 Hypertensive heart and chronic kidney disease. Condition is Stable. Forms are Medication Reconciliation Form, Thank You Letter, Antibiotic Education, Prescription Opioid Use. Follow up: Private Physician; When: 2 - 3 days; Reason: Recheck today's complaints. Problem is new. Symptoms have improved. cp :01/22 00:13 The patient was given aspirin in the Emergency Department. [facility] 01/23 22:01/22 00:13 Data reviewed: vital signs, nurses notes, lab test result(s), EKG, cp radiologic studies, plain films, and as a result, I will discharge patient, 01/23 22:01/22 00:13 Test interpretation: by ED physician or midlevel provider: ECG, plain cp radiologic studies, cp
[2019-01-23 00:50] VITALS: TEMP 98.3
[2019-01-23 01:02] VITALS: BP 186/99; O2SAT 100
--- NOTE | 2019-01-24 12:48 | EKG ---
Test Date: 2019-01-22 Test Time: 23:28:09 Trim Line Worker: MARION MEASUREMENT RESULTS: Intervals: Rate: 66 NH: 182 QRSD: 80 QT: 454 QTc: 475 [place]: P: 22 NH: 182 QRS: -22 T: 76 INTERPRETIVE STATEMENTS: Normal sinus rhythm Normal ECG Compared to ECG 01/22/2019 19:04:40 Prolonged QT interval no longer present Electronically Signed On 01-24-19 12:45:23 [place] by Jules Yadav
--- NOTE | 2019-01-24 12:49 | EKG ---
Test Date: 2019-01-22 Test Time: 19:04:40 Merchandise Coordinator: KAREN MEASUREMENT RESULTS: Intervals: Rate: 69 IN: 166 QRSD: 84 QT: 452 QTc: 484 [place]: P: 21 IN: 166 QRS: -1 T: 82 INTERPRETIVE STATEMENTS: Normal sinus rhythm Prolonged QT Abnormal ECG Compared to ECG 08/02/2018 20:12:48 Prolonged QT interval now present Electronically Signed On 01-24-19 12:45:30 DRIER BELT CONVEYOR by Jules Yadav
--- OUTSIDE RECORDS SUMMARY | 2019-01-25 06:00 | XMS REPORT ---
:1975 [facility] Address [address] [place] [address] Dr. Leon [address] [place] [id number] Care Team Providers Name Role Phone Unavailable Unavailable Unavailable Problems This patient has no known problems. Allergies, Adverse Reactions, Alerts This patient has no known allergies or adverse reactions. Medications This patient has no known medications. Encounters Start End Encounter Admission Attending Care Care Encounter Date/Time Date/Time Type Type Clinicians Facility Department ID 2018-06-22 Inpatient [facility] 3214 07:53:49 2018-06-22 Outpatient [facility] 9609 07:53:48
== END 2019-01-23 00:31 | disposition home or self-care (01) ==
LOC: ER 18:02
DX: I13.11 Hypertensive heart and chronic kidney disease without heart failure, with stage 5 chronic kidney disease, or end stage renal disease (principal); E11.22 Type 2 diabetes mellitus with diabetic chronic kidney disease; N18.6 End stage renal disease; Z99.2 Dependence on renal dialysis; Z79.4 Long term (current) use of insulin
CPT/HCPCS: 36415; 71045; 80048; 80076; 83735; 83880; 84484; 85025; 85610; 93005; 99285

== ENCOUNTER 2019-03-07 12:34 | Emergency (ER) | payer OTHER ==
--- OUTSIDE RECORDS SUMMARY | 2019-03-07 12:36 | XMS REPORT ---
:1975 [facility] Address [address] [place] [address] Dr. Leon [address] [place] [id number] Care Team Providers Name Role Phone Unavailable Unavailable Unavailable Problems This patient has no known problems. Allergies, Adverse Reactions, Alerts This patient has no known allergies or adverse reactions. Medications This patient has no known medications. Encounters Start End Encounter Admission Attending Care Care Encounter Date/Time Date/Time Type Type Clinicians Facility Department ID 2018-06-22 Inpatient [facility] [id number] 07:53:49 2018-06-22 Outpatient [facility] [id number] 07:53:48
[2019-03-07] MEDS ORDERED: ONDANSETRON 4 MG/2 ML VIAL ONE ×2 (13:32→15:17)
[2019-03-07] MEDS ORDERED: D5 0.45 NS 0 ML IV ONE (13:32)
[2019-03-07 13:39] LABS: Absolute Lymphocytes (CBC) 0.7 K/uL (0.7-4.9); Basophils % 0.3 % (0-1.3); Hematocrit 37.3 % (39.6-49.0); RBC Red Blood Cell Count 4.29 M/uL (4.33-5.43)
[2019-03-07] MEDS ORDERED: FAMOTIDINE 20 MG/2 ML VIAL IV ONE ×2 (13:39→15:17)
[2019-03-07] MEDS ORDERED: D5 0.45 NS 1,000 ML IV ONE (13:39)
[2019-03-07 14:06] LABS: Albumin 3.4 g/dL (3.4-5.0); Bilirubin Direct 0.2 mg/dL (0-0.2); Bilirubin Total 0.5 mg/dL (0.2-1.0); Protein, Total 7.9 g/dL (6.4-8.2)
[2019-03-07] MEDS ORDERED: METOCLOPRAMIDE 10 MG/2mL INJ ONE (16:33)
[2019-03-07] MEDS ORDERED: PROMETHAZINE 25 MG/ML VIAL ONE (16:34)
--- NOTE | 2019-03-07 17:30 | ER ---
Nurse's Notes [facility] Name: Chase Chacon Jr Age: 43 yrs Sex: Male : 1975 Arrival Date: 03/07/2019 Time: 12:38 Bed 14 Private MD: Diagnosis: Vomiting;Hypoglycemia, unspecified Presentation: 03/07 12:52 Presenting complaint: Patient states: Throwing up every hour since 0200 this morning. ca1 After throwing up I feel better but I also feel tired and sleepy. Pt on Dialysis MWF. Last Dialysis was Friday. C/O epigastric pain from vomiting. Denies fever. Transition of care: patient was not received from another setting of care. Onset of symptoms was March 07, 2019. Risk Assessment: Do you want to hurt yourself or someone else? Patient reports no desire to harm self or others. Initial Sepsis Screen: Does the patient meet any 2 criteria? No. Patient's initial sepsis screen is negative. Does the patient have a suspected source of infection? No. Patient's initial sepsis screen is negative. Care prior to arrival: None. 12:52 Method Of Arrival: Ambulatory ca1 12:52 Acuity: LEON 3 ca1 Historical: - Allergies: 12:56 Phenergan; ca1 - PMHx: 12:56 Diabetes - NIDDM; Dialysis; ESRD; Gastroparesis; Hypertension; kidney disease; ca1 - Immunization history:: Adult Immunizations up to date, Pneumococcal vaccine is up to date, Flu vaccine is up to date. - Social history:: Smoking status: Patient/guardian denies using tobacco. - Ebola Screening: : Patient negative for fever greater than or equal to 101.5 degrees Fahrenheit, and additional compatible Ebola Virus Disease symptoms Patient denies exposure to infectious person Patient denies travel to an Ebola-affected area in the 21 days before illness onset No symptoms or risks identified at this time. Screenin:02 Abuse screen: Denies threats or abuse. Denies injuries from another. Nutritional jl7 screening: No deficits noted. Tuberculosis screening: No symptoms or risk factors identified. Fall Risk IV access (20 points). Assessment: 13:10 General: Appears in no apparent distress. uncomfortable, ill, Behavior is calm, jl7 cooperative, appropriate for age. Pain: Complains of pain in epigastric area Pain currently is 5 out of 10 on a pain scale. Quality of pain is described as "Sore from throwing up so much.". Neuro: Level of Consciousness is awake, alert, obeys commands, Oriented to person, place, time, situation. Cardiovascular: Patient's skin is warm and dry. Respiratory: Airway is patent Respiratory effort is even, unlabored, Respiratory pattern is regular, symmetrical. GI: Abdomen is non-distended, Reports nausea, vomiting. Derm: Skin is dry, Skin is pale, Skin temperature is warm. 14:10 Reassessment: Patient appears in no apparent distress at this time. Patient and/or jl7 family updated on plan of care and expected duration. Pain level reassessed. Patient is alert, oriented x 3, equal unlabored respirations, skin warm/dry/pink. 14:53 Reassessment: Pt provided with water at this time. jl7 14:57 Reassessment: FSBS 118. jl7 16:30 Reassessment: Pt actively vomiting, ERD notified, see MAR for orders. jl7 17:26 Reassessment: Pt able to keep water down at this time, ERD notified. jl7 Vital Signs: 12:56 BP 176 / 93; Pulse 89; Resp 17 S; Temp 97.6(TE); Pulse Ox 97% on R/A; Weight 86.18 kg ca1 (R); Height 5 ft. 6 in. (167.64 cm) (R); Pain 5/10; 14:02 BP 186 / 91; Pulse 79; Resp 16 S; Pulse Ox 95% on R/A; jl7 16:30 BP 173 / 89; Pulse 89; Resp 19 S; Pulse Ox 93% on R/A; jl7 17:30 BP 174 / 85; Pulse 84; Resp 16 S; Pulse Ox 95% on R/A; jl7 12:56 Body Mass Index 30.67 (86.18 kg, 167.64 cm) ca1 ED Course: 12:38 Patient arrived in ED. mr 12:55 Triage completed. ca1 12:56 Arm band placed on right wrist. ca1 13:02 Babak Henriquez MD is Attending Physician. kdr 13:08 Jj Saba RN is Primary Nurse. jl7 13:30 Initial lab(s) drawn, by me, sent to lab. Inserted saline lock: 22 gauge in right hand, jl7 using aseptic technique. Blood collected. 14:02 Patient has correct armband on for positive identification. Placed in gown. Bed in low jl7 position. Call light in reach. Side rails up X 1. substation supervisor on. Pulse ox on. NIBP on. 17:36 No provider procedures requiring assistance completed. IV discontinued, intact, jl7 bleeding controlled, No redness/swelling at site. Pressure dressing applied. Administered Medications: 13:45 Drug: D5-1/2 NS 500 ml Route: IV; Rate: bolus; Site: right hand; jl7 14:15 Follow up: IV Intake: 500ml jl7 17:38 Follow up: Response: No adverse reaction; IV Status: Completed infusion; IV Intake: jl7 250ml 13:45 Drug: Zofran 4 mg Route: IVP; Site: right hand; jl7 14:15 Follow up: Response: No adverse reaction; Nausea is decreased jl7 13:45 Drug: Pepcid 20 mg Route: IVP; Site: right hand; jl7 14:52 Follow up: Response: No adverse reaction jl7 15:20 Drug: Zofran 4 mg Route: IVP; Site: right hand; jl7 16:30 Follow up: Response: No adverse reaction; Nausea unchanged jl7 15:20 Drug: Pepcid 20 mg Route: IVP; Site: right hand; jl7 16:30 Follow up: Response: No adverse reaction; Nausea unchanged jl7 16:38 Not Given (Other Intervention Used): Reglan 10 mg IVP once; over 1 to 2 minutes jl7 16:39 Not Given (Duplicate Order): Phenergan 12.5 mg IVP once jl7 16:39 Drug: Phenergan 12.5 mg Route: IVP; Site: right hand; jl7 17:30 Follow up: Response: No adverse reaction; Nausea is decreased jl7 Point of Care Testing: Blood Glucose: 13:15 Blood Glucose: 52 mg/dL; jl7 Ranges: Intake: 14:15 IV: 500ml; Total: 500ml. jl7 17:38 IV: 250ml; Total: 750ml. jl7 Outcome: 17:29 Discharge ordered by . kdr 17:36 Discharged to home ambulatory. jl7 17:36 Condition: stable 17:36 Discharge instructions given to patient, family, Instructed on discharge instructions, follow up and referral plans. medication usage, Demonstrated understanding of instructions, follow-up care, medications, Prescriptions given X 2. 17:39 Patient left the ED. jl7 Signatures: Babak Henriquez MD MD kdr Rivera, Mary mr Leal, Jahala, RN RN jl7 Vilma Gomez RN RN ca1
--- NOTE | 2019-03-07 17:30 | EDPHYS ---
Physician Documentation [facility] Name: Chase Chacon Jr Age: 43 yrs Sex: Male : 1975 Arrival Date: 03/07/2019 Time: 12:38 Bed 14 Private MD: ED Physician Babak Henriquez HPI: 03/07 16:05 This 43 yrs old Male presents to ER via Ambulatory with complaints of Nausea. kdr 16:05 Onset: The symptoms/episode began/occurred acutely, this morning, at 02:00. Possible kdr causes: unknown. The symptoms are aggravated by nothing. The symptoms are alleviated by food . Associated signs and symptoms: Pertinent positives: abdominal pain, nausea, vomiting. Severity of symptoms: At their worst the symptoms were mild moderate just prior to arrival, in the emergency department the symptoms have improved mildly. The patient has not experienced similar symptoms in the past. The patient has not recently seen a physician. The patient has dialysis MWF and starting to feel poorly at 02:00 AM today. Historical: - Allergies: 12:56 Phenergan; ca1 - PMHx: 12:56 Diabetes - NIDDM; Dialysis; ESRD; Gastroparesis; Hypertension; kidney disease; ca1 - Immunization history:: Adult Immunizations up to date, Pneumococcal vaccine is up to date, Flu vaccine is up to date. - Social history:: Smoking status: Patient/guardian denies using tobacco. - Ebola Screening: : Patient negative for fever greater than or equal to 101.5 degrees Fahrenheit, and additional compatible Ebola Virus Disease symptoms Patient denies exposure to infectious person Patient denies travel to an Ebola-affected area in the 21 days before illness onset No symptoms or risks identified at this time. ROS: 16:05 Constitutional: Negative for fever, chills, and weight loss, Eyes: Negative for injury, kdr pain, redness, and discharge, ENT: Negative for injury, pain, and discharge, Neck: Negative for injury, pain, and swelling, Cardiovascular: Negative for chest pain, palpitations, and edema, Respiratory: Negative for shortness of breath, cough, wheezing, and pleuritic chest pain, Back: Negative for injury and pain, : Negative for injury, bleeding, discharge, and swelling, MS/Extremity: Negative for injury and deformity, Skin: Negative for injury, rash, and discoloration, Neuro: Negative for headache, weakness, numbness, tingling, and seizure activity. Psych: Negative for depression, anxiety, suicide ideation, homicidal ideation, and hallucinations, Allergy/Immunology: Negative for hives, rash, and allergies, Endocrine: Negative for neck swelling, polydipsia, polyuria, polyphagia, and marked weight changes, Hematologic/Lymphatic: Negative for swollen nodes, abnormal bleeding, and unusual bruising. 16:05 Abdomen/GI: Positive for nausea and vomiting, Negative for diarrhea, constipation, abdominal cramps, abdominal distension, anorexia, dysphagia, hematemesis, black/tarry stool, rectal pain, rectal bleeding, bowel incontinence. Exam: 16:05 Constitutional: This is a well developed, well nourished patient who is awake, alert, kdr and in no acute distress. Head/Face: Normocephalic, atraumatic. Eyes: Pupils equal round and reactive to light, extra-ocular motions intact. Lids and lashes normal. Conjunctiva and sclera are non-icteric and not injected. Cornea within normal limits. Periorbital areas with no swelling, redness, or edema. Neck: Trachea midline, no thyromegaly or masses palpated, and no cervical lymphadenopathy. Supple, full range of motion without nuchal rigidity, or vertebral point tenderness. No Meningismus. Chest/axilla: Normal chest wall appearance and motion. Nontender with no deformity. No lesions are appreciated. Cardiovascular: Regular rate and rhythm with a normal S1 and S2. No gallops, murmurs, or rubs. Normal PMI, no JVD. No pulse deficits. Respiratory: Lungs have equal breath sounds bilaterally, clear to auscultation and percussion. No rales, rhonchi or wheezes noted. No increased work of breathing, no retractions or nasal flaring. Abdomen/GI: Soft, non-tender, with normal bowel sounds. No distension or tympany. No guarding or rebound. No evidence of tenderness throughout. Back: No spinal tenderness. No costovertebral tenderness. Full range of motion. Skin: Warm, dry with normal turgor. Normal color with no rashes, no lesions, and no evidence of cellulitis. MS/ Extremity: Pulses equal, no cyanosis. Neurovascular intact. Full, normal range of motion. Neuro: Awake and alert, GCS 15, oriented to person, place, time, and situation. Cranial nerves II-XII grossly intact. Motor strength 5/5 in all extremities. Sensory grossly intact. Cerebellar exam normal. Normal gait. Psych: Awake, alert, with orientation to person, place and time. Behavior, mood, and affect are within normal limits. 16:05 Abdomen/GI: Very minor epigastric pain/discomfort. kdr Vital Signs: 12:56 BP 176 / 93; Pulse 89; Resp 17 S; Temp 97.6(TE); Pulse Ox 97% on R/A; Weight 86.18 kg ca1 (R); Height 5 ft. 6 in. (167.64 cm) (R); Pain 5/10; 14:02 BP 186 / 91; Pulse 79; Resp 16 S; Pulse Ox 95% on R/A; jl7 16:30 BP 173 / 89; Pulse 89; Resp 19 S; Pulse Ox 93% on R/A; jl7 17:30 BP 174 / 85; Pulse 84; Resp 16 S; Pulse Ox 95% on R/A; jl7 12:56 Body Mass Index 30.67 (86.18 kg, 167.64 cm) ca1 MDM: 16:05 Data reviewed: vital signs, nurses notes, lab test result(s), radiologic studies. kdr Counseling: I had a detailed discussion with the patient and/or guardian regarding: the historical points, exam findings, and any diagnostic results supporting the discharge/admit diagnosis, lab results, radiology results. 17:29 Patient medically screened. [facility] 03/07 13:20 Order name: Basic Metabolic Panel; Complete Time: 14:36 [facility] 03/07 13:20 Order name: CBC with Diff; Complete Time: 14:36 [facility] 03/07 13:20 Order name: Creatinine for Radiology; Complete Time: 14:36 [facility] 03/07 13:20 Order name: Hepatic Function; Complete Time: 14:36 [facility] 03/07 13:20 Order name: Lipase; Complete Time: 14:36 [facility] 03/07 13:36 Order name: Glucose, Ancillary Testing; Complete Time: 14:36 EDMS 03/07 15:02 Order name: Glucose, Ancillary Testing; Complete Time: 15:40 EDIN 03/07 13:20 Order name: IV Saline Lock; Complete Time: 13:28 [facility] 03/07 13:20 Order name: Labs collected and sent; Complete Time: 13:28 [facility] 03/07 14:36 Order name: FSBS; Complete Time: 14:51 kdr 03/07 14:36 Order name: PO challenge; Complete Time: 14:51 kdr Administered Medications: 13:45 Drug: D5-1/2 NS 500 ml Route: IV; Rate: bolus; Site: right hand; jl7 14:15 Follow up: IV Intake: 500ml jl7 17:38 Follow up: Response: No adverse reaction; IV Status: Completed infusion; IV Intake: jl7 250ml 13:45 Drug: Zofran 4 mg Route: IVP; Site: right hand; jl7 14:15 Follow up: Response: No adverse reaction; Nausea is decreased jl7 13:45 Drug: Pepcid 20 mg Route: IVP; Site: right hand; jl7 14:52 Follow up: Response: No adverse reaction jl7 15:20 Drug: Zofran 4 mg Route: IVP; Site: right hand; jl7 16:30 Follow up: Response: No adverse reaction; Nausea unchanged jl7 15:20 Drug: Pepcid 20 mg Route: IVP; Site: right hand; jl7 16:30 Follow up: Response: No adverse reaction; Nausea unchanged jl7 16:38 Not Given (Other Intervention Used): Reglan 10 mg IVP once; over 1 to 2 minutes jl7 16:39 Not Given (Duplicate Order): Phenergan 12.5 mg IVP once jl7 16:39 Drug: Phenergan 12.5 mg Route: IVP; Site: right hand; jl7 17:30 Follow up: Response: No adverse reaction; Nausea is decreased jl7 Point of Care Testing: Blood Glucose: 13:15 Blood Glucose: 52 mg/dL; jl7 Ranges: Critical Glucose Levels:Adult <50 mg/dl or >400 mg/dl <40 mg/dl or >180 mg/dl Disposition: 03/07/19 17:29 Discharged to Home. Impression: Vomiting, Hypoglycemia, unspecified. - Condition is Stable. - Discharge Instructions: Nausea and Vomiting, Adult, [id number], Hypoglycemia, [id number]. - Prescriptions for promethazine 25 mg Oral Tablet - take 1 tablet by ORAL route every 6 hours As needed; 20 tablet. Pepcid 20 mg Oral Tablet - take 1 tablet by ORAL route once daily; 20 tablet. - Medication Reconciliation Form, Thank You Letter form. - Follow up: Private Physician; When: 2 - 3 days; Reason: If symptoms return, Further diagnostic work-up, Recheck today's complaints, Continuance of care, Re-evaluation by your physician. - Problem is new. - Symptoms have improved. Signatures: Dispatcher [employer] EDMS Babak Henriquez MD MD kdr Jj Saba RN RN jl7 Vilma Gomez RN RN ca1 Corrections: (The following items were deleted from the chart) 17:39 17:29 03/07/2019 17:29 Discharged to Home. Impression: Vomiting; Hypoglycemia, jl7 unspecified. Condition is Stable. Forms are Medication Reconciliation Form, Thank You Letter, Antibiotic Education, Prescription Opioid Use. Follow up: Private Physician; When: 2 - 3 days; Reason: If symptoms return, Further diagnostic work-up, Recheck today's complaints, Continuance of care, Re-evaluation by your physician. Problem is new. Symptoms have improved. kdr
[2019-03-07 17:52] VITALS: TEMP 97.6
[2019-03-07 17:54] VITALS: BP 173/89; O2SAT 93
== END 2019-03-07 17:39 | disposition home or self-care (01) ==
LOC: ER 12:34
DX: E11.22 Type 2 diabetes mellitus with diabetic chronic kidney disease (principal); I12.0 Hypertensive chronic kidney disease with stage 5 chronic kidney disease or end stage renal disease; N18.6 End stage renal disease; Z88.8 Allergy status to other drugs, medicaments and biological substances; Z99.2 Dependence on renal dialysis
CPT/HCPCS: 96361; 85025; 80048; 36415; 82947 ×2; 80076; 83690; 96375; 96374; 99284; J2550; J7799; J2405 ×2; J2765

== ENCOUNTER 2019-03-24 13:33 | Inpatient (IN) | payer OTHER ==
--- OUTSIDE RECORDS SUMMARY | 2019-03-24 13:35 | XMS REPORT ---
:1975 [facility] Address [address] [place] [address] Dr. Leon [address] [place] [id number] Care Team Providers Name Role Phone Unavailable Unavailable Unavailable Problems This patient has no known problems. Allergies, Adverse Reactions, Alerts This patient has no known allergies or adverse reactions. Medications This patient has no known medications. Encounters Start End Encounter Admission Attending Care Care Encounter Date/Time Date/Time Type Type Clinicians Facility Department ID 2018-06-22 Inpatient [facility] [id number] 07:53:49 2018-06-22 Outpatient [facility] [id number] 07:53:48
[2019-03-24 14:21] LABS: Basophils % 0.5 % (0-1.3); Hematocrit 31.8 % (39.6-49.0); Lymphocytes % 14.1 % (15.3-44.8); MPV 7.7 fL (7.6-11.3); RBC Red Blood Cell Count 3.69 M/uL (4.33-5.43)
[2019-03-24] MEDS ORDERED: MORPHINE 2 MG/ML SYR ONE (14:30)
[2019-03-24] MEDS ORDERED: ONDANSETRON 4 MG/2 ML VIAL ONE (14:30)
[2019-03-24 14:47] LABS: Albumin 3.5 g/dL (3.4-5.0); Bilirubin Direct 0.2 mg/dL (0-0.2); Bilirubin Total 0.7 mg/dL (0.2-1.0); Protein, Total 7.6 g/dL (6.4-8.2)
[2019-03-24 14:49] LABS: Potassium 6.7 mmol/L (3.5-5.1)
--- NOTE | 2019-03-24 14:53 | RAD REPORT ---
EXAM DESCRIPTION: CT - Abdomen Pelvis Wo Contrast - 03/24/2019 2:43 pm CLINICAL HISTORY: Abdominal pain. LUQ abdomen pain COMPARISON: Abdomen Pelvis W Contrast dated 12/31/2018 TECHNIQUE: CT imaging of the abdomen and pelvis was performed without contrast. Solid organ, bowel a nd vascular assessment is limited due to lack of IV and oral contrast. All CT scans are performed using dose optimization technique as appropriate and may include automated exposure control or mA/KV adjustment according to patient size. FINDINGS: The lower lung lynch are clear. The liver, spleen, pancreas, adrenal glands are within normal limits for a limited non-contrast exami nation.Multiple bilateral renal cysts are present without hydronephrosis. Moderate atherosclerosis no mannie. No bowel obstruction, free air, free fluid or abscess. Colonic diverticulosis is seen without diverti culitis. The appendix is normal. The osseous structures are within normal limits. IMPRESSION: Prominent colonic diverticulosis without diverticulitis. Bilateral benign-appearing renal cysts without hydronephrosis. A limited non-contrast examination was performed as detailed.
[2019-03-24] MEDS ORDERED: INSULIN -REGULAR HUMAN 50 UNIT/0.5 ML ML ONE (15:19)
[2019-03-24] MEDS ORDERED: ALBUTEROL 2.5 MG/3 ML NEB SOL ONE (15:19)
[2019-03-24] MEDS ORDERED: SOD POLYSTYREN SUL 15 GM/60 ML UCUP ONE (15:20)
[2019-03-24] MEDS ORDERED: D50W 25 GM/50 ML SYRINGE/VIAL IV ONE (15:20)
[2019-03-24 15:47] LABS: Potassium 6.8 mmol/L (3.5-5.1)
--- NOTE | 2019-03-24 16:22 | ER ---
Nurse's Notes [facility] Name: Chase Chacon Jr Age: 43 yrs Sex: Male : 1975 Arrival Date: 03/24/2019 Time: 13:35 Bed 6 Private MD: Diagnosis: Hyperkalemia;Upper abdominal pain, unspecified Presentation: 03/24 13:45 Presenting complaint: Patient states: LUQ abdominal pain started at 1300 this morning, jl7 was suppose to have dialysis today but the pain is too bad. Report N/V, denies diarrhea. Transition of care: patient was not received from another setting of care. Onset of symptoms was March 24, 2019 at 01:00. Risk Assessment: Do you want to hurt yourself or someone else? Patient reports no desire to harm self or others. Initial Sepsis Screen: Does the patient meet any 2 criteria? No. Patient's initial sepsis screen is negative. Does the patient have a suspected source of infection? No. Patient's initial sepsis screen is negative. Care prior to arrival: None. 13:45 Method Of Arrival: Ambulatory [facility] 13:45 Acuity: LEON 3 jl7 Triage Assessment: 13:48 General: Appears in no apparent distress. uncomfortable, Behavior is cooperative. Pain: jl7 Complains of pain in left upper quadrant Pain currently is 8 out of 10 on a pain scale. GI: Abdomen is non-distended, Reports nausea, vomiting, Patient currently denies diarrhea. Historical: - Allergies: 13:48 Phenergan; jl7 - Home Meds: 13:48 alprazolam 0.5 mg Oral Tb24 1 tab once daily [Active]; calcium acetate 667 mg Oral cap jl7 3 caps 3 times per day [Active]; nifedipine 90 mg Oral tr24 twice a day [Active]; Novolog Sub-Q 10 10 UNITS AM, 15 UNITS LUNCH AND 10 UNITS AT NIGHT [Active]; ramipril 10 mg Oral cap at bedtime [Active]; ropinirole 1 mg Oral tab at bedtime as needed for Restless Legs Syndrome [Active]; ropinirole 1 mg Oral tab nightly [Active]; tizanidine 2 mg Oral tab twice a day [Active]; tizanidine 2 mg Oral tab twice a day [Active]; trazodone 100 mg Oral tab nightly [Active]; - PMHx: 13:48 Diabetes - NIDDM; ESRD; Gastroparesis; Hypertension; kidney disease; Dialysis; jl7 - PSHx: 13:48 left lower arm fistula; jl7 - Immunization history:: Adult Immunizations up to date. - Social history:: Smoking status: Patient/guardian denies using tobacco. - Ebola Screening: : No symptoms or risks identified at this time. Screenin:16 Abuse screen: Denies threats or abuse. Denies injuries from another. Nutritional bp screening: No deficits noted. Tuberculosis screening: No symptoms or risk factors identified. Fall Risk None identified. Assessment: 13:50 General: SEE TRIAGE NOTE. bp 14:00 GI: Bowel sounds present X 4 quads. Abd is soft X 4 quads. bp 15:00 Reassessment: PT RETURNED FROM CT. bp 16:30 Reassessment: ALL CURRENT ORDERS COMPLETED. ADMIT IN PROCESS. bp 17:57 Reassessment: ADMIT COMPLETE. PT VERONICA. bp Vital Signs: 13:48 BP 185 / 93; Pulse 90; Resp 16 S; Temp 98.1(O); Pulse Ox 92% on R/A; Weight 88.45 kg jl7 (R); Height 5 ft. 6 in. (167.64 cm) (R); Pain 8/10; 15:43 BP 189 / 89; Pulse 85; Resp 16; Temp 98.5; Pulse Ox 100% ; bp 16:00 BP 177 / 88; Pulse 96; Resp 16; Pulse Ox 100% ; bp 16:30 BP 162 / 89; Pulse 97; Resp 16; Pulse Ox 95% ; bp 16:59 BP 162 / 89; Pulse 100; Resp 15; Pulse Ox 96% ; bp 17:56 BP 147 / 80; Pulse 93; Resp 16; Temp 98; Pulse Ox 95% ; bp 13:48 Body Mass Index 31.47 (88.45 kg, 167.64 cm) jl7 ED Course: 13:35 Patient arrived in ED. rg4 13:47 Triage completed. jl7 13:48 Arm band placed on right wrist. jl7 13:55 Sunny Truong PA is PHCP. cp 13:55 Babak Henriquez MD is Attending Physician. cp 14:00 Surinder Gagnon, JENNIE is Primary Nurse. bp 14:15 Inserted saline lock: 22 gauge in right antecubital area, using aseptic technique. bp Blood collected. 14:16 Patient has correct armband on for positive identification. Bed in low position. Call bp light in reach. Side rails up X2. Adult w/ patient. 14:25 Hepatic Function Sent. bp 14:25 Basic Metabolic Panel Sent. bp 14:43 CT Abd/Pelvis - Without Contrast In Process Unspecified. EDMS 15:14 EKG done, by robotic technician. reviewed by Sunny TREVINO. at1 16:21 Dyana Pittman MD is Hospitalizing Provider. cp 17:57 No provider procedures requiring assistance completed. Patient admitted, IV remains in bp place. Administered Medications: 14:30 Drug: Zofran 4 mg Route: IVP; Site: right antecubital; bp 14:54 Follow up: Response: Nausea is decreased bp 14:30 Drug: morphine 2 mg Route: IVP; Site: right antecubital; bp 14:54 Follow up: Response: Pain is decreased bp 15:00 Drug: Albuterol 2.5 mg Route: Inhalation; bp 15:15 Drug: D50W 50 ml Route: IVP; Site: right antecubital; bp 16:09 Follow up: Response: No adverse reaction bp 15:20 Drug: Albuterol 2.5 mg Route: Inhalation; bp 15:20 Drug: Insulin Regular Human 5 units {Co-Signature: ph (Essie Canales RN).} Route: IVP; bp Site: right antecubital; 16:09 Follow up: Response: No adverse reaction bp 15:33 Drug: Kayexalate 30 grams Route: PO; bp 16:10 Follow up: Response: No adverse reaction bp 15:40 Drug: Albuterol 2.5 mg Route: Inhalation; bp 16:10 Follow up: Response: No adverse reaction bp 16:10 Drug: Lasix 40 mg Route: IVP; Site: right antecubital; bp 16:38 Follow up: Response: No adverse reaction bp 16:10 Drug: hydrALAZINE 10 mg Route: IV; Rate: calculated rate; Site: right forearm; bp 16:39 Follow up: IV Status: Completed infusion bp Outcome: 16:21 Decision to Hospitalize by Provider. cp 17:57 Admitted to Tele accompanied by tech, family with patient, via wheelchair, room 427, bp with chart, Report called to JOSTIN SCHNEIDER 17:57 Condition: stable 17:57 Instructed on the need for admit. 18:13 Patient left the ED. bp Signatures: Dispatcher [employer] EDAlicia Almaraz, hosiery looper EKG Tat1 Sunny Truong PA PA cp Garcia, Rubi rg4 Jj Saba, RN RN jl7 Surinder Gagnon RN RN bp Essie Canales RN ph Corrections: (The following items were deleted from the chart) 17:58 17:56 BP 178 / 0; Pulse 93bpm; Resp 16bpm; Pulse Ox 95%; Temp 98F; bp bp
--- NOTE | 2019-03-24 16:22 | EDPHYS ---
Physician Documentation [facility] Name: Chase Chacon Jr Age: 43 yrs Sex: Male : 1975 Arrival Date: 03/24/2019 Time: 13:35 Bed 6 Private MD: ED Physician Babak Henriquez HPI: 03/24 14:13 This 43 yrs old Male presents to ER via Ambulatory with complaints of cp Abdominal Pain. 14:13 The patient presents with abdominal pain in the left upper quadrant. Onset: The cp symptoms/episode began/occurred this morning, at 01:00, started after getting out of bed to use restroom. The symptoms do not radiate. Associated signs and symptoms: Pertinent negatives: nausea and vomiting, chest pain, constipation, diarrhea, fever, shortness of breath. The symptoms are described as sharp, stabbing. Modifying factors: The symptoms are alleviated by lying on back. the symptoms are aggravated by walking. 14:14 Severity of pain: in the emergency department the pain is a 8 / 10. cp Historical: - Allergies: 13:48 Phenergan; jl7 - Home Meds: 13:48 alprazolam 0.5 mg Oral Tb24 1 tab once daily [Active]; calcium acetate 667 mg Oral cap jl7 3 caps 3 times per day [Active]; nifedipine 90 mg Oral tr24 twice a day [Active]; Novolog Sub-Q 10 10 UNITS AM, 15 UNITS LUNCH AND 10 UNITS AT NIGHT [Active]; ramipril 10 mg Oral cap at bedtime [Active]; ropinirole 1 mg Oral tab at bedtime as needed for Restless Legs Syndrome [Active]; ropinirole 1 mg Oral tab nightly [Active]; tizanidine 2 mg Oral tab twice a day [Active]; tizanidine 2 mg Oral tab twice a day [Active]; trazodone 100 mg Oral tab nightly [Active]; - PMHx: 13:48 Diabetes - NIDDM; ESRD; Gastroparesis; Hypertension; kidney disease; Dialysis; jl7 - PSHx: 13:48 left lower arm fistula; jl7 - Immunization history:: Adult Immunizations up to date. - Social history:: Smoking status: Patient/guardian denies using tobacco. - Ebola Screening: : No symptoms or risks identified at this time. ROS: 14:15 Eyes: Negative for injury, pain, redness, and discharge. cp 14:15 Constitutional: Negative for body aches, chills, fever, poor PO intake. 14:15 ENT: Negative for drainage from ear(s), ear pain, sore throat, difficulty swallowing, difficulty handling secretions. 14:15 Cardiovascular: Negative for chest pain. 14:15 Respiratory: Negative for cough, shortness of breath, wheezing. 14:15 Abdomen/GI: Positive for abdominal pain, Negative for vomiting, diarrhea, constipation. 14:15 Back: Negative for pain at rest, pain with movement, radiated pain. 14:15 Skin: Negative for rash. 14:15 Neuro: Negative for altered mental status, headache, weakness. 14:15 All other systems are negative. Exam: 14:16 Head/Face: Normocephalic, atraumatic. cp 14:16 Constitutional: The patient appears in no acute distress, alert, awake, non-diaphoretic, non-toxic, well developed, well nourished. 14:16 Eyes: Periorbital structures: appear normal, Conjunctiva: normal, no exudate, no injection, Sclera: no appreciated abnormality, Lids and lashes: appear normal, bilaterally. 14:16 ENT: External ear(s): are unremarkable, Nose: is normal, Mouth: Lips: moist, Oral mucosa: moist, Posterior pharynx: is normal, airway is patent, no erythema, no exudate. 14:16 Chest/axilla: Inspection: normal, Palpation: is normal, no crepitus, no tenderness. 14:16 Cardiovascular: Rate: normal, Rhythm: regular. 14:16 Respiratory: the patient does not display signs of respiratory distress, Respirations: normal, no use of accessory muscles, no retractions, labored breathing, is not present, Breath sounds: are clear throughout, no decreased breath sounds, no stridor, no wheezing. 14:16 Abdomen/GI: Inspection: abdomen appears normal, Bowel sounds: active, all quadrants, Palpation: soft, in all quadrants, moderate abdominal tenderness, in the left upper quadrant, rebound tenderness, is not appreciated, voluntary guarding, is not appreciated, involuntary guarding, is not appreciated. 14:16 Back: pain, is absent, ROM is normal. 14:16 Skin: no rash present. 15:25 ECG was reviewed by the Attending Physician. Vital Signs: 13:48 BP 185 / 93; Pulse 90; Resp 16 S; Temp 98.1(O); Pulse Ox 92% on R/A; Weight 88.45 kg jl7 (R); Height 5 ft. 6 in. (167.64 cm) (R); Pain 8/10; 15:43 BP 189 / 89; Pulse 85; Resp 16; Temp 98.5; Pulse Ox 100% ; bp 16:00 BP 177 / 88; Pulse 96; Resp 16; Pulse Ox 100% ; bp 16:30 BP 162 / 89; Pulse 97; Resp 16; Pulse Ox 95% ; bp 16:59 BP 162 / 89; Pulse 100; Resp 15; Pulse Ox 96% ; bp 17:56 BP 147 / 80; Pulse 93; Resp 16; Temp 98; Pulse Ox 95% ; bp 13:48 Body Mass Index 31.47 (88.45 kg, 167.64 cm) jl7 MDM: 13:56 Patient medically screened. 16:08 Physician consultation: Rojas Mccoy DO was called at 16:08, was contacted at 16:08, regarding patient's condition, would like admission per Dr. Dyana Pittman MD. 16:20 Data reviewed: vital signs, nurses notes, lab test result(s), radiologic studies, CT cp scan. 16:20 Counseling: I had a detailed discussion with the patient and/or guardian regarding: the historical points, exam findings, and any diagnostic results supporting the discharge/admit diagnosis, lab results, radiology results, the need for further work-up and treatment in the hospital. 03/24 13:57 Order name: Basic Metabolic Panel 03/24 13:57 Order name: CBC with Diff; Complete Time: 14:50 03/24 14:58 Interpretation: Normal except: RBC 3.69; HGB 10.6; HCT 31.8; PLT 137; RDW 17.9; RADHA% cp 74.6; LYM% 14.1. 03/24 13:57 Order name: Creatinine for Radiology; Complete Time: 14:50 03/24 13:57 Order name: Hepatic Function 03/24 13:57 Order name: Lipase; Complete Time: 14:54 03/24 13:58 Order name: Basic Metabolic Panel; Complete Time: 14:54 EDMS 03/24 14:54 Interpretation: Normal except: K 6.7; GLUC 140; BUN 87; CRE 12.20; GFR 5. cp 03/24 13:58 Order name: Liver (Hepatic) Function; Complete Time: 14:54 EDMS 03/24 15:42 Interpretation: Normal except: ALK 134; GLOB 4.1; A/G 0.9. cp 03/24 14:22 Order name: CT Abd/Pelvis - Without Contrast; Complete Time: 14:57 cp 03/24 14:54 Order name: BMP; Complete Time: 16:00 bp 03/24 13:57 Order name: IV Saline Lock; Complete Time: 14:15 cp 03/24 13:57 Order name: Labs collected and sent; Complete Time: 14:15 cp 03/24 14:50 Order name: EKG; Complete Time: 14:51 cp 03/24 14:50 Order name: EKG - Nurse/Tech; Complete Time: 15:34 cp EC:25 Rate is 86 beats/min. Rhythm is regular. NM interval is normal. QRS interval is cp prolonged at 102 msec. QT interval is normal. Interpreted by me. Reviewed by me. Administered Medications: 14:30 Drug: Zofran 4 mg Route: IVP; Site: right antecubital; bp 14:54 Follow up: Response: Nausea is decreased bp 14:30 Drug: morphine 2 mg Route: IVP; Site: right antecubital; bp 14:54 Follow up: Response: Pain is decreased bp 15:00 Drug: Albuterol 2.5 mg Route: Inhalation; bp 15:15 Drug: D50W 50 ml Route: IVP; Site: right antecubital; bp 16:09 Follow up: Response: No adverse reaction bp 15:20 Drug: Albuterol 2.5 mg Route: Inhalation; bp 15:20 Drug: Insulin Regular Human 5 units {Co-Signature: ph (Essie Canales RN).} Route: IVP; bp Site: right antecubital; 16:09 Follow up: Response: No adverse reaction bp 15:33 Drug: Kayexalate 30 grams Route: PO; bp 16:10 Follow up: Response: No adverse reaction bp 15:40 Drug: Albuterol 2.5 mg Route: Inhalation; bp 16:10 Follow up: Response: No adverse reaction bp 16:10 Drug: Lasix 40 mg Route: IVP; Site: right antecubital; bp 16:38 Follow up: Response: No adverse reaction bp 16:10 Drug: hydrALAZINE 10 mg Route: IV; Rate: calculated rate; Site: right forearm; bp 16:39 Follow up: IV Status: Completed infusion bp Disposition: 19:17 Co-signature as Attending Physician, Babak Henriquez MD I agree with the assessment and kdr plan of care. Disposition: 03/24/19 16:21 Hospitalization ordered by Dyana Pittman for Observation. Preliminary diagnosis are Hyperkalemia, Upper abdominal pain, unspecified. - Bed requested for Telemetry/MedSurg (observation). - Status is Observation. bp - Condition is Stable. - Problem is new. - Symptoms have improved. UTI on Admission? No Signatures: Dispatcher [employer] EDMS Sravani Galaviz Kevin, MD MD [facility] Sunny Truong PA PA cp Leal, Jahala RN RN jl7 Surinder Gagnon RN RN bp Essie Canales RN ph Corrections: (The following items were deleted from the chart) 16:57 16:21 Hospitalization Ordered by Dyana Pittman MD for Observation. Preliminary diagnosis bd is Hyperkalemia; Upper abdominal pain, unspecified. Bed requested for Telemetry/MedSurg (observation). Status is Observation. Condition is Stable. Problem is new. Symptoms have improved. UTI on Admission? No. cp 18:13 16:57 03/24/2019 16:21 Hospitalization Ordered by Dyana Pittman MD for Observation. bp Preliminary diagnosis is Hyperkalemia; Upper abdominal pain, unspecified. Bed requested for Telemetry/MedSurg (observation). Status is Observation. Condition is Stable. Problem is new. Symptoms have improved. UTI on Admission? No. bd
[2019-03-24] MEDS ORDERED: HYDRALAZINE HCL 20 MG/ML VIAL ONE (16:31)
[2019-03-24] MEDS ORDERED: FUROSEMIDE 40 MG/4 ML VIAL ONE (16:32)
[2019-03-24] MEDS ORDERED: ACETAMINOPHEN 500 MG TAB PO PRN (19:34)
[2019-03-24] MEDS ORDERED: MORPHINE 2 MG/ML SYR IV PRN (19:34)
[2019-03-24] MEDS ORDERED: ONDANSETRON 4 MG/2 ML VIAL IV PRN (19:34)
[2019-03-24] MEDS: INSULIN -REGULAR HUMAN 50 UNIT/0.5 ML ML SQ SCH (21:00)
[2019-03-24] MEDS: HEPARIN 5000 UNIT/ML 1 ML VIAL SQ SCH (22:28)
[2019-03-24 23:11] VITALS: BMI 31.4
[2019-03-24] MEDS: HYDRALAZINE HCL 20 MG/ML VIAL IV PRN (23:41)
[2019-03-24] MEDS: PROMETHAZINE 25 MG TABLET PO PRN (23:41)
--- NOTE | 2019-03-25 01:05 | HP ---
Date of Admission: 03/24/2019 Consultants: Rojas Mccoy D.O. Primary Care Physician: Kyler Ogden M.D. Chief Complaint: Abdominal pain, nausea, vomiting. History Of Present Illness: Patient is a 43-year-old male with past medical history of diabetes, end -stage renal disease on hemodialysis Friday, Friday, Friday, last dialysis was on Friday, jazmine marrero, who was in his usual state of health until the day prior to admission when the patient had sudd en onset of abdominal pain, which is in the left upper quadrant. Patient also reports some associate d nausea and vomiting. No fever, chills. Does report some loose stools, but not outright diarrhea. Denies any ill contacts. No travel outside the country or unusual foods. The patient's symptoms ar e constant, moderate, progressively worsening. He took some tkeu-juj-[id number] medications for pain, d id not have any improvement. Patient was unable to make it to his dialysis session today due to the abdominal pain. He was told to go to the ER for further evaluation. When the patient came in, his v ital signs were stable. He was afebrile. His workup revealed a potassium level of 6.8, white blood cell count was normal. CT scan of the abdomen showed prominent colonic diverticulosis without divert iculitis, renal cysts, but no surgically emergent finding. No free air, fluid, or abscess. Patient was then referred for admission. He was given cocktail for hyperkalemia including D50, albuterol, in sulin, Lasix, and Kayexalate. When seen in the ER, he was awake, alert, and oriented x3, in some mil d distress. Past Medical History: End-stage renal disease, on dialysis Friday, Friday, Friday; diabetes lorenzo penaloza type 2, insulin requiring; hypertension; GERD; diabetic gastroparesis. Surgical History: Cataract surgery and laser for retinal detachment. Allergies: NO KNOWN DRUG ALLERGIES. Medications: List reviewed. Social History: Patient denies any tobacco use or alcohol use. No illicit drug use. Family History: Father has diabetes and kidney disease. Review of Systems: Ten-point system reviewed, negative except as per HPI. Physical Examination: Vital Signs: Blood pressure 185/93, pulse 90, respirations 16, temperature 98.1, O2 92% on room air. BMI 31. General: Awake, alert, and oriented x3, in some mild distress, ill-appearing male. HEENT: Normocephalic, atraumatic. PERRLA. EOMI. Moist mucous membranes. Oropharynx is clear. Po or dentition. Conjunctivae anicteric. Neck: Supple. No JVD. Trachea midline. CV: S1, S2. Regular rate and rhythm. Peripheral pulses present. Respiratory: Diminished breath sounds. No wheezing or stridor. No use of accessory muscles. Gastrointestinal: Abdomen is soft, nondistended, tenderness to palpation in the left upper quadrant. Bowel sounds are positive. No guarding or rigidity. Extremities: No clubbing, cyanosis, or peripheral edema. Neuro: Cranial nerves 2 through 12 intact grossly. No focal neurological deficit. Speech is normal . Skin: No rashes, normal skin turgor. Psych: Mood is somewhat anxious. Affect is congruent with mood. Insight and judgment are fair. Laboratory Data: WBC 6.9, H and H 10.6 and 31.8, platelets 137, neutrophils 74%. Sodium 139, potass ium 6.8, chloride 102, CO2 of 26, BUN 84, creatinine 12.1, glucose 152, calcium 9.3, lipase 285, dire ct bilirubin 0.2, total bilirubin 0.7, AST 15, ALT 33. Imaging Studies: CT scan of the abdomen shows prominent colonic diverticulosis without diverticuliti s, bilateral benign-appearing renal cysts without hydronephrosis. Assessment: A 43-year-old male with, 1.Acute left upper quadrant abdominal pain, unclear etiology. CT scan does not show any acute dia es, has significant diverticulosis with no diverticulitis and multiple renal cysts. Patient does hav e some nausea, vomiting, may be a viral gastroenteritis. We will keep on clear liquid diet for now a nd advance as tolerated. IV analgesia with morphine, antiemetics, may also be related to diabetic ga stroparesis. 2.Hyperkalemia. Patient has received multiple agents to lower the potassium. Is also going to be d ialyzed today per Dr. Mccoy. He missed his dialysis today due to his illness. We will monitor yarely eduard. 3.End-stage renal disease, on hemodialysis Friday, Friday, Friday. Hopefully will get dialyzed i n next couple of hours in the hospital. We will continue to monitor electrolytes and kidney function . 4.Essential hypertension. We will resume home medications as appropriate. 5.Mixed hyperlipidemia. Continue statin. 6.Diabetes mellitus type 2, on insulin with end-stage renal disease. Continue with sliding scale in sulin. Monitor blood glucose levels. Resume home dose of insulin once medications have been reconci led. 7.Gastroesophageal reflux disease without esophagitis. We will continue PPI. 8.Diabetic gastroparesis. Patient is not on Reglan. May need to give trial of Reglan if not improv ing. 9.Non-intractable nausea, vomiting likely related to abdominal pain, possible viral gastroenteritis versus bacterial gastroenteritis. Continue with antiemetics. 10.Deep vein thrombosis prophylaxis, heparin. Plan: Admit patient to Med-Surg, place as inpatient. Length of stay greater than [address] w ill place on cardiac telemetry. REBECCA Voice ID: [id number]
[2019-03-25 04:32] LABS: Absolute Lymphocytes (CBC) 0.3 K/uL (0.7-4.9); Basophils % 0.2 % (0-1.3); Hematocrit 30.3 % (39.6-49.0); Lymphocytes % 2.3 % (15.3-44.8); MPV 8.7 fL (7.6-11.3); RBC Red Blood Cell Count 3.51 M/uL (4.33-5.43)
[2019-03-25 05:04] LABS: Albumin 3.3 g/dL (3.4-5.0); Bilirubin Total 0.6 mg/dL (0.2-1.0); Potassium 5.3 mmol/L (3.5-5.1); Protein, Total 7.4 g/dL (6.4-8.2)
--- NOTE | 2019-03-25 06:47 | EKG ---
Test Date: 2019-03-24 Test Time: 15:09:57 [employer]: KERRI MEASUREMENT RESULTS: Intervals: Rate: 86 ID: [id number] QRSD: 102 QT: 396 QTc: 473 [place]: P: 15 ID: [id number] QRS: -34 T: 54 INTERPRETIVE STATEMENTS: Normal sinus rhythm Left axis deviation Abnormal ECG Compared to ECG 01/22/2019 23:28:09 Left-axis deviation now present Electronically Signed On 03-25-19 06:45:10 HOME ADMINISTRATOR by Jules Yadav
[2019-03-25] MEDS ORDERED: HYDRALAZINE HCL 20 MG/ML VIAL ONE (08:14)
[2019-03-25] MEDS ORDERED: HEPARIN 5000 UNIT/ML 1 ML VIAL ONE (08:14)
[2019-03-25] MEDS ORDERED: INSULIN -REGULAR HUMAN 50 UNIT/0.5 ML ML ONE (08:15)
[2019-03-25] MEDS ORDERED: PROMETHAZINE 25 MG TABLET ONE (08:22)
[2019-03-25] MEDS: HYDRALAZINE HCL 20 MG/ML VIAL IV PRN (08:23)
[2019-03-25] MEDS: INSULIN -REGULAR HUMAN 50 UNIT/0.5 ML ML SQ SCH ×5 (08:23→23:08)
[2019-03-25] MEDS: HEPARIN 5000 UNIT/ML 1 ML VIAL SQ SCH ×2 (08:24→22:46)
[2019-03-25] MEDS: PROMETHAZINE 25 MG TABLET PO PRN (08:28)
[2019-03-25 09:37] LABS: Blood Morphology Comment NOT SEEN (NOT SEEN); Platelet Estimate DECR
[2019-03-25] MEDS ORDERED: TIZANIDINE HCL PO PRN (14:34)
[2019-03-25] MEDS ORDERED: TIZANIDINE 4 MG TABLET PO PRN (14:51)
[2019-03-25] MEDS: METOCLOPRAMIDE 5 MG TAB PO SCH ×2 (17:01→22:46)
--- NOTE | 2019-03-25 18:47 | PN ---
Date of Progress Note: 03/25/2019 Subjective: Patient seen and examined. Chart reviewed and case discussed with RN and Dr. Braun. P fiorella continues to complain of nausea and vomiting, was given Phenergan. Medications: List reviewed. Physical Examination: Vital Signs: Temperature 98.2, heart rate 94, blood pressure 199/88, respirations 18, O2 of 93% on r oom air. General: Awake, alert, oriented x3, in some mild distress. CV: S1, S2. Regular rate and rhythm. Peripheral pulses present. Respiratory: Moving air well bilaterally. No wheezing or stridor. No use of accessory muscles. Gastrointestinal: Abdomen is soft. Mild tenderness to palpation. No guarding or rigidity. Positiv e bowel sounds. Nondistended. Extremities: No clubbing, cyanosis, or edema. Neurologic: Cranial nerves 2 through 12 intact grossly. No focal neurological deficit. Laboratory Data: Sodium 137, potassium 5.3, chloride 102, CO2 of 26, BUN 42, creatinine 7.94, glucos e 243, calcium 8.9. AST 12, ALT 28, albumin 3.3. WBC 13.7, hemoglobin and hematocrit 10.1/30.3, carrie telets 100, neutrophils 90.4%. Assessment And Plan: A 43-year-old male with: 1.Acute left upper quadrant abdominal pain and now with epigastric pain likely due to diabetic gastr oparesis. We will start on Reglan. Appreciate Dr. Braun's input. May need to be started on erythr omycin if fails treatment with Reglan. 2.Hyperkalemia, improved, now 5.3 after dialysis. We will continue to monitor. 3.End-stage renal disease, on hemodialysis Friday, Friday, Friday. Appreciate Dr. Mccoy's inpu t. We will continue to monitor electrolytes and kidney function. Avoid NSAIDs. 4.Essential hypertension, not well controlled. Continue with p.r.n. medications. Resume home medic ations as appropriate. 5.Mixed hyperlipidemia. Continue statin. 6.Non-intractable nausea and vomiting, likely related to diabetic gastroparesis. Doubt any infectio us etiology. 7.Diabetes mellitus type 2, on insulin with end-stage renal disease. Continue sliding scale insulin . I have asked the nurse to reconcile his home dose of insulin. 8.Gastroesophageal reflux disease without esophagitis. We will continue PPI. 9.Diabetic gastroparesis. Patient will be added on Reglan and may need erythromycin. 10.Deep venous thrombosis prophylaxis with heparin. Disposition: Likely discharge in the next 24 to 48 hours depending on clinical response. /KYLE Voice ID: [id number] Report ID: [id number]
--- NOTE | 2019-03-25 20:51 | P.CNS ---
Date of Consult: 03/25/19 Reason for Consult: Hyperkalemia Requesting Physician: Dyana Pittman Chief Complaint: Abdominal Pain History of Present Illness: Patient is a 43-year-old male with past medical history of diabetes, end-stage renal disease on hemodialysis Friday, Friday, Friday, last dialysis was on Friday, hypertension, who was in his usual state of health until the day prior to admission when the patient had sudden onset of abdominal pain, which is in the left upper quadrant. Patient also reports some associated nausea and vomiting. No fever, chills. Does report some loose stools, but not outright diarrhea. Denies any ill contacts. No travel outside the country or unusual foods. The patient's symptoms are constant, moderate, progressively worsening. He took some [id number] medications for pain, did not have any improvement. Patient was unable to make it to his dialysis session today due to the abdominal pain. He was told to go to the ER for further evaluation. When the patient came in, his vital signs were stable. He was afebrile. His workup revealed a potassium level of 6.8, white blood cell count was normal. CT scan of the abdomen showed prominent colonic diverticulosis without diverticulitis, renal cysts, but no surgically emergent finding. No free air, fluid, or abscess. Patient was then referred for admission. He was given cocktail for hyperkalemia including D50, albuterol, insulin, Lasix, and Kayexalate. This 43 yrs old Male presents to ER via Ambulatory with complaints of Abdominal Pain. 14:13 The patient presents with abdominal pain in the left upper quadrant. Onset : The symptoms/episode began/occurred this morning, at 01:00, started after getting out of bed to use restroom. The symptoms do not radiate. Associated signs and symptoms: Pertinent negatives: nausea and vomiting, chest pain, constipation, diarrhea, fever, shortness of breath. The symptoms are described as sharp, stabbing. Modifying factors: The symptoms are alleviated by lying on back. the symptoms are aggravated by walking. Severity of pain: in the emergency department the pain is a 8 / 10. Allergies No Known Allergies Allergy (Unverified 08/02/18 23:57) Home medications list reviewed: Yes Home Medications: Doxazosin [Cardura*] 2 mg PO BID #60 tab 03/01/18 ALPRAZolam [Xanax*] 1 tab PO DAILY 03/25/19 Amitriptyline [Elavil*] 1 tab PO BEDTIME 03/25/19 Amlodipine [Norvasc*] 1 tab PO DAILY 03/25/19 Atorvastatin Calcium 1 tab PO BEDTIME 03/25/19 Omeprazole [Prilosec] 1 cap PO DAILY 03/25/19 Promethazine HCl 1 tab PO Q6H PRN 03/25/19 Sertraline [Zoloft*] 1 tab PO DAILY 03/25/19 Tizanidine HCl 1 tab PO BID PRN 03/25/19 - Past Medical/Surgical History Diabetic: Yes -: Diabetes mellitus type 2, insulin dependent -: Hypertension -: GERD -: Diabetic gastroparesis -: End stage renal disease on hemodialysis -: Cataract surgery -: Laser for Retinal Detachment -: HD fistula surgery Psychosocial/ Personal History: Patient is . He has no children. - Family History Father Medical History: Diabetes, Kidney disease - Social History Smoking Status: Unknown if ever smoked Alcohol use: No CD- Drugs: No Caffeine use: Yes Place of Residence: Home Review of Systems 10-point ROS is otherwise unremarkable General: Malaise Respiratory: SOB with Excertion Gastrointestinal: Abdominal Pain Physical Examination Temp Pulse Resp BP Pulse Ox 98.1 F 104 H 18 170/84 H 96 03/25/19 16:00 03/25/19 16:00 03/25/19 16:00 03/25/19 16:00 03/25/19 16:00 General: Alert, Oriented x3, Cooperative HEENT: Atraumatic Neck: Supple Respiratory: Clear to auscultation bilaterally Cardiovascular: No edema, Regular rate/rhythm Gastrointestinal: Soft and benign, Non-distended, Tenderness Musculoskeletal: No clubbing, No contractures Integumentary: No rashes, No cyanosis Neurological: Normal speech Blood work reviewed in the chart. Hyperkalemia. Imagings Data: EXAM DESCRIPTION: CT - Abdomen Pelvis Wo Contrast - 03/24/2019 2:43 pm CLINICAL HISTORY: Abdominal pain. LUQ abdomen pain COMPARISON: Abdomen Pelvis W Contrast dated 12/31/2018 TECHNIQUE: CT imaging of the abdomen and pelvis was performed without contrast. Solid organ, bowel and vascular assessment is limited due to lack of IV and oral contrast. All CT scans are performed using dose optimization technique as appropriate and may include automated exposure control or mA/KV adjustment according to patient size. FINDINGS: The lower lung lynch are clear. The liver, spleen, pancreas, adrenal glands are within normal limits for a limited non-contrast examination.Multiple bilateral renal cysts are present without hydronephrosis. Moderate atherosclerosis noted. No bowel obstruction, free air, free fluid or abscess. Colonic diverticulosis is seen without diverticulitis. The appendix is normal. The osseous structures are within normal limits. IMPRESSION: Prominent colonic diverticulosis without diverticulitis. Bilateral benign-appearing renal cysts without hydronephrosis. A limited non-contrast examination was performed as detailed. Conclusions/Impression: A/ ESRD on HD. Hyperkalemia. DM II with CKD. DM II with Polyneuropathy and Gastroparesis. HTN with CKD/ CHF. Diastolic CHF, chronic. Anemia in CKD. Thrombocytopenia. KEVIN/ Secondary HyperPTH. P/ Continue current POC and Medications. Acute HD for hyperkalemia. Restart home medications as indicated. Give Retacrit. No NSAIDs. AM labs. Daily weight. Thank you kindly for the consultation. Case reviewed with Dr. Pittman.
[2019-03-25] MEDS ORDERED: ATORVASTATIN 40 MG TAB PO SCH (21:00)
[2019-03-25] MEDS ORDERED: AMITRIPTYLINE 50 MG TAB PO SCH (21:00)
[2019-03-25] MEDS ORDERED: EPOETIN ALFA-EPBX 10,000 UNIT/ML VIAL SQ SCH (21:00)
[2019-03-25] MEDS: DOXAZOSIN 2 MG TAB PO SCH (22:46)
[2019-03-25] MEDS: EPOETIN ALFA 10,000 UNIT/ML VIAL SQ ONE (23:00)
[2019-03-25] MEDS ORDERED: EPOETIN ALFA 10,000 UNIT/ML VIAL ONE (23:45)
[2019-03-26 06:00] LABS: Absolute Lymphocytes (CBC) 0.6 K/uL (0.7-4.9); Basophils % 0.5 % (0-1.3); Hematocrit 31.7 % (39.6-49.0); Lymphocytes % 11.3 % (15.3-44.8); MPV 8.7 fL (7.6-11.3); RBC Red Blood Cell Count 3.67 M/uL (4.33-5.43)
[2019-03-26 06:22] LABS: Albumin 3.1 g/dL (3.4-5.0); Bilirubin Total 0.8 mg/dL (0.2-1.0); Potassium 4.6 mmol/L (3.5-5.1); Protein, Total 7.6 g/dL (6.4-8.2)
[2019-03-26] MEDS: INSULIN -REGULAR HUMAN 50 UNIT/0.5 ML ML SQ SCH ×4 (07:30→18:22)
[2019-03-26] MEDS ORDERED: PANTOPRAZOLE 40MG TABLET PO SCH (07:30)
[2019-03-26] MEDS: [UNRECOGNIZED DRUG - OTHER] PO SCH ×3 (08:10→18:22)
[2019-03-26] MEDS: METOCLOPRAMIDE 5 MG TAB PO SCH ×4 (08:10→18:22)
[2019-03-26] MEDS: DOXAZOSIN 2 MG TAB PO SCH (08:10)
[2019-03-26] MEDS: HEPARIN 5000 UNIT/ML 1 ML VIAL SQ SCH (08:11)
[2019-03-26] MEDS ORDERED: HOME MED 1 EA UNK (Omeprazole [Prilosec] 1 CAP) PO SCH (09:00)
[2019-03-26] MEDS ORDERED: NEPRO SHAKE 237 ML CAN PO SCH (09:00)
[2019-03-26] MEDS ORDERED: SERTRALINE HCL 50 MG TAB PO SCH (09:00)
[2019-03-26] MEDS ORDERED: ALPRAZOLAM 1 MG TABLET PO SCH (09:00)
[2019-03-26] MEDS ORDERED: AMLODIPINE 10 MG TAB PO SCH (09:00)
[2019-03-26] MEDS: EPOETIN ALFA 10,000 UNIT/ML VIAL SQ ONE (09:47)
--- NOTE | 2019-03-26 10:02 | P.PN ---
Date of Service: 03/26/19 Vital Signs Temp Pulse Resp BP Pulse Ox 98.3 F 91 H 16 168/72 H 95 03/26/19 04:00 03/26/19 08:11 03/26/19 04:00 03/26/19 08:11 03/26/19 04:00 Medications Acetaminophen (Tylenol -Extra Strength) 500 mg PO Q4HP PRN PRN Reason: Pain scale 2-4 (Mild) Stop: 04/23/19 19:35 Alprazolam (Xanax) 1 mg PO DAILY [place] Stop: 04/25/19 09:01 Last Admin: 03/26/19 08:11 Dose: 1 mg Amitriptyline HCl (Elavil) 50 mg PO BEDTIME [place] Stop: 04/24/19 21:01 Last Admin: 03/25/19 22:47 Dose: 50 mg Amlodipine Besylate (Norvasc) 10 mg PO DAILY [place] Stop: 04/25/19 09:01 Last Admin: 03/26/19 08:11 Dose: 10 mg Atorvastatin Calcium (Lipitor) 40 mg PO BEDTIME [place] Stop: 04/24/19 21:01 Last Admin: 03/25/19 22:47 Dose: 40 mg Doxazosin Mesylate (Cardura) 2 mg PO BID [place] Stop: 04/24/19 21:01 Last Admin: 03/26/19 08:10 Dose: 2 mg Enteral Nutritional Formula (Nepro Shake) 237 ml PO DAILY [place] Stop: 04/25/19 09:01 Last Admin: 03/26/19 08:12 Dose: 237 ml Heparin Sodium (Porcine) (Heparin 5,000 Units/Ml) 5,000 unit SQ Q12HR [place] Stop: 04/23/19 21:01 Last Admin: 03/26/19 08:11 Dose: 5,000 unit Heparin Sodium (Porcine) (Heparin 1,000 Units/Ml) 2,000 unit IV EVERY HD [place] Stop: 03/29/19 20:01 Hydralazine HCl (Apresoline) 20 mg IV Q6HP PRN PRN Reason: sbp > 180 Stop: 04/23/19 23:33 Last Admin: 03/25/19 08:23 Dose: 20 mg Insulin Human Regular (Novolin -R) 0 unit SQ ACHS [place]; Protocol Stop: 04/24/19 21:01 Last Admin: 03/26/19 07:30 Dose: Not Given Metoclopramide HCl (Reglan) 5 mg PO ACHS [facility] Stop: 04/24/19 16:31 Last Admin: 03/26/19 08:10 Dose: 5 mg Special Order Med [ Erythromycin 250 Mg Tabs] 1 ea PO BIDAC [place] Stop: 04/25/19 07:31 Last Admin: 03/26/19 08:10 Dose: 1 ea Ondansetron HCl (Zofran) 4 mg IV Q4H PRN PRN Reason: NAUSEA / VOMITING Stop: 04/23/19 19:35 Last Admin: 03/24/19 23:21 Dose: 4 mg Pantoprazole Sodium (Protonix Tab) 40 mg PO ACB [facility] Stop: 04/25/19 07:31 Last Admin: 03/26/19 08:10 Dose: 40 mg Promethazine HCl (Phenergan) 25 mg PO Q6H PRN PRN Reason: NAUSEA / VOMITING Stop: 04/23/19 23:32 Last Admin: 03/25/19 08:28 Dose: 25 mg Sertraline HCl (Zoloft) 50 mg PO DAILY [place] Stop: 04/25/19 09:01 Last Admin: 03/26/19 08:10 Dose: 50 mg Sodium Chloride (Normal Saline Flush) 10 ml IV BID [place] Stop: 04/23/19 21:01 Last Admin: 03/26/19 08:12 Dose: 10 ml Tizanidine HCl (Zanaflex) 2 mg PO BIDP PRN PRN Reason: MUSCLE SPASMS Stop: 04/24/19 14:52 Assessment/ Plan: Nephrology Feeling better. +PO intake CPS stable without CP or SOB. No acute events overnight. Vitals, medications, blood work and imaging reviewed in the chart. General: Alert, Oriented x3, Cooperative HEENT: Atraumatic Neck: Supple Respiratory: Clear to auscultation bilaterally Cardiovascular: No edema, Regular rate/rhythm Gastrointestinal: Soft and benign, Non-distended, Tenderness Musculoskeletal: No clubbing, No contractures Integumentary: No rashes, No cyanosis Neurological: Normal speech Blood work reviewed in the chart. Hyperkalemia. Imagings Data: EXAM DESCRIPTION: CT - Abdomen Pelvis Wo Contrast - 03/24/2019 2:43 pm CLINICAL HISTORY: Abdominal pain. LUQ abdomen pain COMPARISON: Abdomen Pelvis W Contrast dated 12/31/2018 TECHNIQUE: CT imaging of the abdomen and pelvis was performed without contrast. Solid organ, bowel and vascular assessment is limited due to lack of IV and oral contrast. All CT scans are performed using dose optimization technique as appropriate and may include automated exposure control or mA/KV adjustment according to patient size. FINDINGS: The lower lung lynch are clear. The liver, spleen, pancreas, adrenal glands are within normal limits for a limited non-contrast examination.Multiple bilateral renal cysts are present without hydronephrosis. Moderate atherosclerosis noted. No bowel obstruction, free air, free fluid or abscess. Colonic diverticulosis is seen without diverticulitis. The appendix is normal. The osseous structures are within normal limits. IMPRESSION: Prominent colonic diverticulosis without diverticulitis. Bilateral benign-appearing renal cysts without hydronephrosis. A limited non-contrast examination was performed as detailed. Conclusions/Impression: A/ ESRD on HD. Hyperkalemia. DM II with CKD. DM II with Polyneuropathy and Gastroparesis. HTN with CKD/ CHF. Diastolic CHF, chronic. Anemia in CKD. Thrombocytopenia. KEVIN/ Secondary HyperPTH. P/ Continue current POC and Medications. Acute HD today. Advance diet as tolerated. No NSAIDs. AM labs. Daily weight.
[2019-03-26 12:57] VITALS: O2SAT 93
[2019-03-26 19:35] VITALS: BP 135/64; TEMP 97.5
--- NOTE | 2019-03-27 02:17 | DS ---
Date of Discharge: 03/26/2019 Consultants: 1.Dr. Mccoy with Nephrology. 2.Dr. Braun with GI. Admitting Diagnoses: 1.Acute left upper quadrant abdominal pain. 2.Hyperkalemia. 3.End-stage renal disease, on hemodialysis. 4.Essential hypertension. 5.Non-intractable nausea, vomiting. 6.Diabetes mellitus type 2, on insulin with end-stage renal disease. 7.Gastroesophageal reflux disease without esophagitis. 8.Diabetic gastroparesis. Discharge Diagnoses: 1.Acute left upper quadrant abdominal pain, improved, likely secondary to gastroparesis. 2.Hyperkalemia, corrected. 3.End-stage renal disease, on hemodialysis. We will continue with dialysis as scheduled. 4.Non-intractable nausea, vomiting, related to gastroparesis, improving with antiemetics and erythro mycin. 5.Essential hypertension, not well controlled. 6.Mixed hyperlipidemia, continue with statin. 7.Diabetes mellitus type 2 insulin-requiring with end-stage renal disease and hyperglycemia, stable. 8.Gastroesophageal reflux disease without esophagitis, continue PPI. 9.Diabetic gastroparesis, started on Reglan and erythromycin. Hospital Course: Patient is a 43-year-old male with past medical history of diabetes, end-stage alex l disease, on dialysis, hypertension, comes in with abdominal pain, nausea, vomiting, thought to be i nitially possible gastroenteritis; however, with noninfectious etiology considered was likely seconda ry to his diabetic gastroparesis. Patient did not have any diarrhea. No elevated white blood cell c ount. He did have multiple electrolyte abnormalities from missing his dialysis. He was dialyzed marina rgently on the night of admission. His potassium improved, however still elevated. He was then dial yzed for second time on the day of discharge. He was seen by his skidder runner, Dr. Mccoy. Due to his nausea and vomiting, thought to be due to gastroparesis, he was started on Reglan, did not have any improvement. Dr. Braun with GI was consulted. He recommended erythromycin for the patien t. Patient did have improvement in his condition and he was able to tolerate his diet. He was then cleared for discharge and was sent home in a stable condition. He was counseled extensively regardin g his uncontrolled diabetes. He needs to have better hyperglycemic control and should follow up with Endocrinology to help manage his diabetes. Patient also encouraged to follow up with diabetes educa tion. Medications: As per medication reconciliation list. Diet: Renal. Activity: As tolerated. Followup: Follow up with PCP in 2-3 days. Follow up with skidder runner, Dr. Mccoy, in 2 weeks. Fo llow up with GI, Dr. Braun, in 2 weeks. Return to ER for worsening condition. Physical Examination: General: Awake, alert, and oriented x3, not in any acute distress. CV: S1, S2. No murmurs. Respiratory: Moving air well bilaterally. Abdomen: Abdomen is soft, nontender, nondistended. Positive bowel sounds. Extremities: No clubbing, cyanosis, or edema. Neurologic: Nonfocal. Total time spent discharging the patient was 35 minutes. SA/MODL Voice ID: [id number] Report ID: [id number]
== END 2019-03-26 19:55 | disposition home or self-care (01) | DRG 73 ==
LOC: ER 13:33 → ERHOLD 16:29 → 4TH 17:57
PROVIDERS: ADMIT Family Medicine; ATTEND Family Medicine
DX: E11.43 Type 2 diabetes mellitus with diabetic autonomic (poly)neuropathy (principal); N18.6 End stage renal disease; I12.0 Hypertensive chronic kidney disease with stage 5 chronic kidney disease or end stage renal disease; N25.81 Secondary hyperparathyroidism of renal origin; K31.84 Gastroparesis; E87.5 Hyperkalemia; E11.22 Type 2 diabetes mellitus with diabetic chronic kidney disease; K57.30 Diverticulosis of large intestine without perforation or abscess without bleeding; K21.9 Gastro-esophageal reflux disease without esophagitis; D63.1 Anemia in chronic kidney disease; A08.4 Viral intestinal infection, unspecified; E78.2 Mixed hyperlipidemia; D69.6 Thrombocytopenia, unspecified; Z99.2 Dependence on renal dialysis; Z79.4 Long term (current) use of insulin
CPT/HCPCS: 36415; 74176; 80048; 80053; 80076; 82947; 83036; 83690; 85025; 90935; 93005; 94760; 96365; 96375; 99285; J0360; J0583; J1644; J1940; J2250; J2270; J2405; Q0169

== ENCOUNTER 2019-04-21 10:14 | Emergency (ER) | payer OTHER ==
--- OUTSIDE RECORDS SUMMARY | 2019-04-21 10:21 | XMS REPORT ---
:1975 Author Organization [facility] Address [address] [place] [address] Dr. Leon [address] [place] [id number] Care Team Providers Name Role Phone Unavailable Unavailable Unavailable Problems This patient has no known problems. Allergies, Adverse Reactions, Alerts This patient has no known allergies or adverse reactions. Medications This patient has no known medications. Encounters Start End Encounter Admission Attending Care Care Encounter Date/Time Date/Time Type Type Clinicians Facility Department ID 2018-06-22 Inpatient [facility] [id number] 07:53:49 2018-06-22 Outpatient [facility] [id number] 07:53:48
--- NOTE | 2019-04-21 13:22 | EDPHYS ---
Physician Documentation [facility] Name: Chase Chacon Jr Age: 43 yrs Sex: Male : 1975 Arrival Date: 04/21/2019 Time: 10:20 Bed 3 Private MD: ED Physician Michael Mackey HPI: 04/21 11:42 This 43 yrs old Male presents to ER via EMS with complaints of Low Blood Sugar.rn 11:42 The patient or guardian reports hypoglycemia. Onset: The symptoms/episode rn began/occurred this morning. Associated signs and symptoms:. Current symptoms: In the emergency department the patient's symptoms have improved. The patient has experienced similar episodes in the past. Pt reports low blood sugar today, gave himself 20u novolog insulin this AM, like normally does, but then didn't eat anything, felt like blood sugar was low. Otherwise felt ok. Reports has trouble with low blood sugar often. 911 called, glucose in 30s, given sugar and now > 100. Patient feels fine now. Has not had anything to eat yet. Scheduled for dialysis today and has not missed dialysis recently. . Historical: - Allergies: 10:24 Phenergan; tw2 - Home Meds: 10:24 alprazolam 0.5 mg Oral Tb24 1 tab once daily [Active]; calcium acetate 667 mg Oral cap tw2 3 caps 3 times per day [Active]; nifedipine 90 mg Oral tr24 twice a day [Active]; Novolog Sub-Q 10 10 UNITS AM, 15 UNITS LUNCH AND 10 UNITS AT NIGHT [Active]; ramipril 10 mg Oral cap at bedtime [Active]; ropinirole 1 mg Oral tab at bedtime as needed for Restless Legs Syndrome [Active]; ropinirole 1 mg Oral tab nightly [Active]; tizanidine 2 mg Oral tab twice a day [Active]; tizanidine 2 mg Oral tab twice a day [Active]; trazodone 100 mg Oral tab nightly [Active]; - PMHx: 10:24 kidney disease; Hypertension; Gastroparesis; ESRD; Dialysis; Diabetes - NIDDM; tw2 - PSHx: 10:24 left lower arm fistula; tw2 - Immunization history:: Adult Immunizations. - Coronavirus screen:: The patient has NOT traveled to [place], [place], or [place] in the past 14 days. - Social history:: Smoking status: . - Family history:: not pertinent. - Ebola Screening: : Patient denies travel to an Ebola-affected area in the 21 days before illness onset. - Hospitalizations: : No recent hospitalization is reported. ROS: 11:42 Constitutional: Negative for fever, chills, and weight loss, Eyes: Negative for injury, rn pain, redness, and discharge, Neck: Negative for injury, pain, and swelling, Cardiovascular: Negative for chest pain, palpitations, and edema, Respiratory: Negative for shortness of breath, cough, wheezing, and pleuritic chest pain, Abdomen/GI: Negative for abdominal pain, nausea, vomiting, diarrhea, and constipation, MS/Extremity: Negative for injury and deformity, Skin: Negative for injury, rash, and discoloration, Neuro: Negative for headache, weakness, numbness, tingling, and seizure. Exam: 11:42 Constitutional: This is a well developed, well nourished patient who is awake, alert, rn and in no acute distress. Head/Face: Normocephalic, atraumatic. ENT: MMM Cardiovascular: Regular rate and rhythm. No pulse deficits. Respiratory: No increased work of breathing, no retractions or nasal flaring. Abdomen/GI: Soft, non-tender MS/ Extremity: Pulses equal, no cyanosis. Neurovascular intact. Full, normal range of motion. Equal circumference. Neuro: Awake and alert, GCS 15, oriented to person, place, time, and situation. Vital Signs: 10:19 BP 169 / 88; Pulse 65; Resp 14; Pulse Ox 100% on R/A; Weight 65.77 kg (R); Height 5 ft. tw2 6 in. (167.64 cm); Pain 0/10; 10:22 Temp 97.2(TE); tw2 11:11 BP 140 / 72; Pulse 61; Resp 17; Pulse Ox 96% on R/A; tw2 12:00 BP 147 / 78; Pulse 63; Resp 17; Pulse Ox 96% on R/A; tw2 12:46 BP 151 / 82; Pulse 67; Resp 17; Pulse Ox 98% on R/A; tw2 13:30 BP 135 / 62; Pulse 68; Resp 19 S; Pulse Ox 98% on R/A; jl7 10:19 Body Mass Index 23.40 (65.77 kg, 167.64 cm) tw2 MDM: 10:23 Patient medically screened. rn 12:49 ED course: Pt awake, sitting upright, ate, glucose remaining steady, talked to him rn about dialysis/renal function and insulin, likely taking too much given his report of frequent hypoglycemic episodes. . 13:14 Differential diagnosis: hypoglycemic episode. Data reviewed: vital signs, nurses notes, churn driller test result(s), finger stick glucose, and as a result, I will discharge patient. Counseling: I had a detailed discussion with the patient and/or guardian regarding: the historical points, exam findings, and any diagnostic results supporting the discharge/admit diagnosis, lab results, the need for outpatient follow up, to return to the emergency department if symptoms worsen or persist or if there are any questions or concerns that arise at home. Response to treatment: the patient's symptoms have markedly improved after treatment, the patient's condition has returned to base line, the patient is now symptom free, and as a result, I will discharge patient. Special discussion: I discussed with the patient/guardian in detail that at this point there is no indication for admission to the hospital. It is understood, however, that if the symptoms persist or worsen the patient needs to return immediately for re-evaluation. ED course: Glucose steady and slowly increasing, had long talk about dosing of insulin and renal failure, will talk to his doctor, and will be more careful not to skip meals in future.. 04/21 10:32 Order name: Glucose, Ancillary Testing; Complete Time: 10:33 EDMS 04/21 11:19 Order name: Glucose, Ancillary Testing; Complete Time: 11:42 EDMS 04/21 10:31 Order name: Diet Renal; Complete Time: 10:31 tw2 04/21 12:16 Order name: Glucose, Ancillary Testing; Complete Time: 12:24 EDMS 04/21 12:57 Order name: Glucose, Ancillary Testing EDMS 04/21 13:29 Order name: Glucose, Ancillary Testing EDMS Administered Medications: No medications were administered Point of Care Testing: Blood Glucose: 10:19 Blood Glucose: 116 mg/dL; tw2 11:07 Blood Glucose: 115 mg/dL; tw2 12:02 Blood Glucose: 91 mg/dL; tw2 12:43 Blood Glucose: 83 mg/dL; tw2 13:14 Blood Glucose: 145 mg/dL; tw2 12:43 provider notified. tw2 Ranges: Critical Glucose Levels:Adult <50 mg/dl or >400 mg/dl <40 mg/dl or >180 mg/dl Disposition: 04/21/19 13:19 Discharged to Home. Impression: Hypoglycemia, unspecified. - Condition is Stable. - Discharge Instructions: Hypoglycemia, Blood Glucose Monitoring, Adult. - Medication Reconciliation Form, Thank You Letter, Antibiotic Education, Prescription Opioid Use form. - Follow up: Private Physician; When: As needed; Reason: Recheck today's complaints, Re-evaluation by your physician. - Problem is new. - Symptoms have improved. Signatures: Michael Mackey MD MD rn Wise, Tara, RN RN tw2 Jj Saba RN RN jl7 Corrections: (The following items were deleted from the chart) 13:34 13:19 04/21/2019 13:19 Discharged to Home. Impression: Hypoglycemia, unspecified. jl7 Condition is Stable. Forms are Medication Reconciliation Form, Thank You Letter, Antibiotic Education, Prescription Opioid Use. Follow up: Private Physician; When: As needed; Reason: Recheck today's complaints, Re-evaluation by your physician. Problem is new. Symptoms have improved. rn
--- NOTE | 2019-04-21 13:22 | ER ---
Nurse's Notes [facility] Name: Chase Chacon Jr Age: 43 yrs Sex: Male : 1975 Arrival Date: 04/21/2019 Time: 10:20 Bed 3 Private MD: Diagnosis: Hypoglycemia, unspecified Presentation: 04/21 10:15 Method Of Arrival: EMS: [facility] tw2 10:15 Presenting complaint: EMS states: pt was found unconscious by family, BGL was 23 when tw2 we arrived, he is a diabetic and dialysis pt, last dialysis on Friday, we gave 250 ml of Dextrose 10% iv, pt was 130 bgl in ambulance bay upon arrival. Transition of care: patient was not received from another setting of care. Onset of symptoms was April 21, 2019. Risk Assessment: Do you want to hurt yourself or someone else? Patient reports no desire to harm self or others. Initial Sepsis Screen: Does the patient meet any 2 criteria? No. Patient's initial sepsis screen is negative. Does the patient have a suspected source of infection? No. Patient's initial sepsis screen is negative. Care prior to arrival: None. 10:15 Acuity: LEON 2 tw2 Triage Assessment: 10:24 General: Appears in no apparent distress. Behavior is cooperative, appropriate for age. tw2 Pain: Denies pain. Historical: - Allergies: 10:24 Phenergan; tw2 - Home Meds: 10:24 alprazolam 0.5 mg Oral Tb24 1 tab once daily [Active]; calcium acetate 667 mg Oral cap tw2 3 caps 3 times per day [Active]; nifedipine 90 mg Oral tr24 twice a day [Active]; Novolog Sub-Q 10 10 UNITS AM, 15 UNITS LUNCH AND 10 UNITS AT NIGHT [Active]; ramipril 10 mg Oral cap at bedtime [Active]; ropinirole 1 mg Oral tab at bedtime as needed for Restless Legs Syndrome [Active]; ropinirole 1 mg Oral tab nightly [Active]; tizanidine 2 mg Oral tab twice a day [Active]; tizanidine 2 mg Oral tab twice a day [Active]; trazodone 100 mg Oral tab nightly [Active]; - PMHx: 10:24 kidney disease; Hypertension; Gastroparesis; ESRD; Dialysis; Diabetes - NIDDM; tw2 - PSHx: 10:24 left lower arm fistula; tw2 - Immunization history:: Adult Immunizations. - Coronavirus screen:: The patient has NOT traveled to [place], [place], or [place] in the past 14 days. - Social history:: Smoking status: . - Family history:: not pertinent. - Ebola Screening: : Patient denies travel to an Ebola-affected area in the 21 days before illness onset. - Hospitalizations: : No recent hospitalization is reported. Screenin:26 Abuse screen: Denies threats or abuse. Nutritional screening: No deficits noted. tw2 Tuberculosis screening: No symptoms or risk factors identified. Fall Risk None identified. Assessment: 10:20 General: Appears in no apparent distress. Behavior is calm, cooperative, appropriate tw2 for age. Pain: Denies pain. Neuro: Level of Consciousness is alert, obeys commands, pt is drowsy and chooses to keep eyes closed. can keep them open. Oriented to person, place, situation. Cardiovascular: Cardiovascular: Heart tones S1 S2 Capillary refill < 3 seconds. Respiratory: Airway is patent Respiratory effort is even, unlabored, Respiratory pattern is regular, symmetrical. GI: No signs and/or symptoms were reported involving the gastrointestinal system. Abdomen is flat, Bowel sounds present X 4 quads. : No signs and/or symptoms were reported regarding the genitourinary system. EENT: No signs and/or symptoms were reported regarding the EENT system. Derm: Skin is clammy, Skin is normal, Skin temperature is cool. Musculoskeletal: Range of motion: intact in all extremities. 10:22 Reassessment: pt given orange juice at this time. tw2 11:09 Reassessment: No changes from previously documented assessment. Patient and/or family tw2 updated on plan of care and expected duration. Pain level reassessed. Patient is alert, oriented x 3, equal unlabored respirations, skin warm/dry/pink. pt states "i need to go to the restroom at this time, number 2", w/c provided and Tiffany Bautista escorted pt to restroom at this time. 11:21 Reassessment: no renal tray available or delivered, per Dr. Mackey give sandwich and tw2 baked chips at this time, pt sitting upright eating sandwich at this time. pt requested ice chips, ice chips given. 11:25 Reassessment: renal tray given at this time. tw2 12:02 Reassessment: pt ate half of meat and some vegetables and about half of turkey sandwich tw2 at this time. 12:03 Reassessment: Patient appears in no apparent distress at this time. Patient and/or tw2 family updated on plan of care and expected duration. Pain level reassessed. Patient is alert, oriented x 3, equal unlabored respirations, skin warm/dry/pink. pt alert sitting upright upon entry into exam room, pt requesting to go to restroom at this time, pt steady on his feet ambulates to restroom. provider notified. 12:29 Reassessment: pt back from restroom at this time, pt encouraged to eat a little more of tw2 his lunch, pt agreeable at this time, nad. 12:45 Reassessment: provider at bedside at this time, pt sitting upright talking with family, tw2 states "i just at some of that peach cobbler on the tray". Vital Signs: 10:19 BP 169 / 88; Pulse 65; Resp 14; Pulse Ox 100% on R/A; Weight 65.77 kg (R); Height 5 ft. tw2 6 in. (167.64 cm); Pain 0/10; 10:22 Temp 97.2(TE); tw2 11:11 BP 140 / 72; Pulse 61; Resp 17; Pulse Ox 96% on R/A; tw2 12:00 BP 147 / 78; Pulse 63; Resp 17; Pulse Ox 96% on R/A; tw2 12:46 BP 151 / 82; Pulse 67; Resp 17; Pulse Ox 98% on R/A; tw2 13:30 BP 135 / 62; Pulse 68; Resp 19 S; Pulse Ox 98% on R/A; jl7 10:19 Body Mass Index 23.40 (65.77 kg, 167.64 cm) tw2 ED Course: 10:15 Bed in low position. Call light in reach. Side rails up X2. color television console monitor on. Pulse tw2 ox on. NIBP on. Warm blanket given. 10:20 Patient arrived in ED. tw2 10:20 Maintain EMS IV. Dressing intact. Good blood return noted. Site clean \\T\\ dry. Gauge \\T\\ jl 7 site: 20 right wrist. 10:21 EKG done, by vehicle operator technician. reviewed by Michael Mackey MD. at1 10:23 Triage completed. tw2 10:23 Michael Mackey MD is Attending Physician. rn 10:24 Arm band placed on. tw2 11:06 Hafsa Hinojosa, RN is Primary Nurse. tw2 13:32 No provider procedures requiring assistance completed. IV discontinued, intact, jl7 bleeding controlled, No redness/swelling at site. Pressure dressing applied. Administered Medications: No medications were administered Point of Care Testing: Blood Glucose: 10:19 Blood Glucose: 116 mg/dL; tw2 11:07 Blood Glucose: 115 mg/dL; tw2 12:02 Blood Glucose: 91 mg/dL; tw2 12:43 Blood Glucose: 83 mg/dL; tw2 13:14 Blood Glucose: 145 mg/dL; tw2 12:43 provider notified. tw2 Ranges: Outcome: 13:19 Discharge ordered by MD. rn 13:33 Discharged to home ambulatory, with family. jl7 13:33 Condition: stable 13:33 Discharge instructions given to patient, family, Instructed on discharge instructions, follow up and referral plans. Demonstrated understanding of instructions, follow-up care. 13:34 Patient left the ED. jl7 Signatures: Michael Mackey MD MD rn Alicia Conteh, last putter away EKG Tat1 Hafsa Hinojosa, RN RN tw2 Jj Saba RN RN jl7 Corrections: (The following items were deleted from the chart) 08:15 Presenting complaint: EMS states: pt was found unconscious by family, BGL was 23 tw2 when we arrived, he is a diabetic and dialysis pt, last dialysis on Friday, we gave 250 ml of Dextrose 10% iv, pt was 130 bgl in ambulance bay upon arrival. tw2 08:15 Transition of care: patient was not received from another setting of care. tw2 tw2 08:15 Onset of symptoms was April 21, 2019 tw2 tw2 08:15 Risk Assessment: Do you want to hurt yourself or someone else? Patient reports no tw2 desire to harm self or others. tw2 08:15 Initial Sepsis Screen: Does the patient meet any 2 criteria? No. Patient's tw2 initial sepsis screen is negative. Does the patient have a suspected source of infection? No. Patient's initial sepsis screen is negative. tw2 08:15 Care prior to arrival: None. tw2 08:15 Method Of Arrival: EMS: [facility] 08:15 Acuity: LEON 2 12: 12:03 Reassessment: Patient appears in no apparent distress at this time. Patient tw2 and/or family updated on plan of care and expected duration. Pain level reassessed. Patient is alert, oriented x 3, equal unlabored respirations, skin warm/dry/pink. pt requesting to go to restroom at this time, pt steady on his feet ambulates to restroom. provider notified.
[2019-04-21 13:57] VITALS: TEMP 97.2
[2019-04-21 14:01] VITALS: O2SAT 98
[2019-04-21 14:02] VITALS: BP 135/62
--- NOTE | 2019-04-22 10:26 | EKG ---
Test Date: 2019-04-21 Test Time: 10:17:56 Corporate Accountant: KERRI MEASUREMENT RESULTS: Intervals: Rate: 66 MO: 164 QRSD: 88 QT: 456 QTc: 478 [place]: P: 33 MO: 164 QRS: 3 T: 69 INTERPRETIVE STATEMENTS: Normal sinus rhythm Normal ECG Compared to ECG 03/24/2019 15:09:57 Left-axis deviation no longer present Electronically Signed On 04-22-19 10:25:33 RETURNS SUPERVISOR by Alosno Lopez
== END 2019-04-21 13:34 | disposition home or self-care (01) ==
LOC: ER 10:14
DX: E11.649 Type 2 diabetes mellitus with hypoglycemia without coma (principal); E11.22 Type 2 diabetes mellitus with diabetic chronic kidney disease; I12.0 Hypertensive chronic kidney disease with stage 5 chronic kidney disease or end stage renal disease; N18.6 End stage renal disease; Z99.2 Dependence on renal dialysis; Z88.8 Allergy status to other drugs, medicaments and biological substances
CPT/HCPCS: 82947; 93005; 99284

== ENCOUNTER 2019-06-14 03:33 | Emergency (ER) | payer OTHER ==
--- OUTSIDE RECORDS SUMMARY | 2019-06-14 03:35 | XMS REPORT ---
:1975 [facility] Address [address] [place] [address] Dr. Leon [address] [place] [address] Care Team Providers Name Role Phone Unavailable Unavailable Unavailable Problems This patient has no known problems. Allergies, Adverse Reactions, Alerts This patient has no known allergies or adverse reactions. Medications This patient has no known medications. Encounters Start End Encounter Admission Attending Care Care Encounter Date/Time Date/Time Type Type Clinicians Facility Department ID 2018-06-22 Inpatient [facility] [id number] 07:53:49 2018-06-22 Outpatient [facility] [id number] 07:53:48
--- OUTSIDE RECORDS SUMMARY | 2019-06-14 03:37 | XMS REPORT | Summary of Care ---
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 ALPRAZolam (XANAX) 0.25 Take 0.25 mg by 0 Active mg tablet mouth 2 (two) times daily. Insulin Lispro, Human, inject under the 0 Active (HUMALOG) 100 unit/mL skin. 10 units in cartridge am and 15 units in pm NIFEdipine CC 90 mg SR Take 90 mg by 0 Active tablet mouth 2 (two) times daily. Insulin Glargine inject 24 Units 0 Active (BASAGLAR KWIKPEN U-100 under the skin. INSULIN) 100 unit/mL (3 mL) injection tiZANidine 2 mg tablet 1 07/10/2018 Active carvedilol 25 mg tablet Take 25 mg by 0 Active mouth 2 (two) times daily with meals. ramipril 10 mg capsule Take 10 mg by 0 Active mouth daily. amLODIPine 10 mg tablet Take 10 mg by 0 Active mouth daily. aspirin 81 mg EC tablet Take 81 mg by 0 Active mouth daily. atorvastatin 40 mg Take 1 tablet by 90 tablet 3 02/02/2019 Active tabletIndications: mouth at bedtime. Essential hypertension documented as of this encounter (statuses as of 06/01/2019) Active Problems Problem Noted Date Obesity (BMI 30-39.9) 07/23/2018 documented as of this encounter (statuses as of 06/01/2019) Immunizations Name Administration Dates Next Due Hep B, Adol or Pedi Dosage 12/28/2012, 08/26/2012, 07/27/2012, 06/19/2012 Influenza Virus Vaccine 11/27/2016, 12/05/2014, 11/15/2013, 11/20/2012, 07/08/2012 PPD (TB) 04/03/2015, 04/13/2014, 09/08/2013, 05/30/2012 Pneumococcal 13 Conjugate, PCV13 05/12/2015, 06/19/2012 (Prevnar 13) documented as of this encounter Social History Tobacco Use Types Packs/Day Years Used Date Never Smoker Smokeless Tobacco: Never Used Alcohol Use Drinks/Week oz/Week Comments Yes quit 4-5 years ago Sex Assigned at Date Recorded Not on file Job Start Date Occupation Industry Not on file Not on file Not on file Travel History Travel Start Travel End No recent travel history available. documented as of this encounter Last Filed Vital Signs Not on filedocumented in this encounter Plan of Treatment Date Type Specialty Care Team Description 12/30/2019 Laboratory Only Cardiology 1, [facility], [facility] Echo Room 1 - 01/14/2020 Office Visit Cardiology Mariposa Crawford MD [address] [address] Health Maintenance Due Date Last Done Comments DTaP,Tdap,and Td Vaccines 1987 (1 - Tdap) INFLUENZA VACCINE (#1) 2018 11/27/2016, 12/05/2014, 11/15/2013, Additional history exists PNEUMOCOCCAL 0-64 YEARS Aged Out 05/12/2015, 06/19/2012 No longer eligible COMBINED SERIES based on patient's age to complete this topic documented as of this encounter Results Not on filedocumented in this encounter Insurance Payer Benefit Plan / Subscriber ID Effective Phone Address Type Group Dates MEDICARE MEDICARE PART xxxxxxxxxxx 2012-Pres [phone] Medicare A & B ent [id number] [place] [address] COMMERCIAL COMMERCIAL [id number] 2016-Pre HMO/PPO/POS NON-CONTRACT NON-CONTRACT sent GENERIC GENERIC documented as of this encounter
--- NOTE | 2019-06-14 04:23 | ER ---
Nurse's Notes [facility] Name: Chase Chacon Jr Age: 44 yrs Sex: Male : 1975 Arrival Date: 06/14/2019 Time: 03:34 Bed 5 Private MD: Diagnosis: Hypoglycemia, unspecified Presentation: 06/13 03:36 Chief complaint: EMS states: they were called out because patients blood glucose was ah 20. Family gave him 2 oral glucose tabs and some juice and it came up to 58 but went back down to 30. EMS checked it enroute and it was 58. They gave 2 more glucose tabs. Coronavirus screen: Patient denies fever greater than 100.4F, cough, shortness of breath, or difficulty breathing. Proceed with normal triage process. Ebola Screen: No symptoms or risks identified at this time. Initial Sepsis Screen: Does the patient meet any 2 criteria? No. Patient's initial sepsis screen is negative. Does the patient have a suspected source of infection? No. Patient's initial sepsis screen is negative. Risk Assessment: Do you want to hurt yourself or someone else? Patient reports no desire to harm self or others. 03:36 Method Of Arrival: EMS: [facility] 03:36 Acuity: LEON 3 04:30 Onset of symptoms was June 14, 2019. Triage Assessment: 03:36 General: Appears in no apparent distress. Behavior is cooperative, drowsy, Reports low blood sugar. Neuro: Level of Consciousness is awake, obeys commands, Oriented to person, place, time. Historical: - Allergies: 03:42 Phenergan; - Home Meds: 03:42 alprazolam 0.5 mg Oral Tb24 1 tab once daily [Active]; calcium acetate 667 mg Oral cap ah 3 caps 3 times per day [Active]; nifedipine 90 mg Oral tr24 twice a day [Active]; Novolog Sub-Q 10 10 UNITS AM, 15 UNITS LUNCH AND 10 UNITS AT NIGHT [Active]; ramipril 10 mg Oral cap at bedtime [Active]; ropinirole 1 mg Oral tab at bedtime as needed for Restless Legs Syndrome [Active]; tizanidine 2 mg Oral tab twice a day [Active]; trazodone 100 mg Oral tab nightly [Active]; - PMHx: 03:43 Diabetes - NIDDM; Dialysis; ESRD; Gastroparesis; Hypertension; kidney disease; ah Cataracts; - Immunization history:: Adult Immunizations up to date, Flu vaccine is up to date. - Social history:: Smoking status: Patient denies any tobacco usage or history of. Patient uses alcohol, occasionally. - Family history:: not pertinent. - Hospitalizations: : No recent hospitalization is reported. Screenin:41 Abuse screen: Denies threats or abuse. Nutritional screening: No deficits noted. jd3 Tuberculosis screening: No symptoms or risk factors identified. Fall Risk Ambulatory Aid- None/Bed Rest/Nurse Assist (0 pts). Gait- Normal/Bed Rest/Wheelchair (0 pts) Mental Status- Oriented to own ability (0 pts). Total Cerda Fall Scale indicates No Risk (0-24 pts). Assessment: 03:40 General: Appears in no apparent distress. comfortable, Behavior is calm, cooperative, jd3 appropriate for age, drowsy. Pain: Denies pain. Neuro: Level of Consciousness is awake, alert, obeys commands, Oriented to person, place, time, situation. Cardiovascular: Denies chest pain, Capillary refill < 3 seconds Patient's skin is warm and dry. Respiratory: Airway is patent Respiratory effort is even, unlabored, Respiratory pattern is regular, Denies cough, shortness of breath. GI: No signs and/or symptoms were reported involving the gastrointestinal system. Patient currently denies constipation, diarrhea, nausea, vomiting. : No signs and/or symptoms were reported regarding the genitourinary system. EENT:. Derm: Skin is intact, Skin is dry, Skin is normal, Skin temperature is warm. Musculoskeletal: Circulation, motion, and sensation intact. Range of motion: intact in all extremities. 03:46 Reassessment: Blood sugar rechecked, 77. Pt is alert and oriented x3 and eating a ah sandwich at this time. Vital Signs: 03:36 BP 187 / 86; Pulse 74; Resp 15; Temp 96.9; Pulse Ox 98% on R/A; Weight 90.72 kg; Height ah 5 ft. 6 in. (167.64 cm); 04:04 BP 161 / 83; Pulse 62; Resp 17; Pulse Ox 95% ; ah 03:36 Body Mass Index 32.28 (90.72 kg, 167.64 cm) ED Course: 03:34 Patient arrived in ED. rn 03:34 Michael Mackey MD is Attending Physician. rn 03:36 Grace Lopez, RN is Primary Nurse. 03:39 Triage completed. 03:41 Patient has correct armband on for positive identification. Placed in gown. Bed in low jd3 position. Call light in reach. Side rails up X2. Pulse ox on. NIBP on. 03:41 Arm band placed on. jd3 04:30 No provider procedures requiring assistance completed. Patient did not have IV access during this emergency room visit. Administered Medications: No medications were administered Outcome: 04:22 Discharge ordered by . rn 04:37 Discharged to home via wheelchair. 04:37 Condition: stable 04:37 Discharge instructions given to patient, Instructed on discharge instructions, follow up and referral plans. Demonstrated understanding of instructions, follow-up care. 04:39 Patient left the ED. Signatures: Michael Mackey MD MD rn Davies, Jonathon, RN RN [facility] Grace Lopez RN RN
--- NOTE | 2019-06-14 04:24 | EDPHYS ---
Physician Documentation [facility] Name: Chase Chacon Jr Age: 44 yrs Sex: Male : 1975 Arrival Date: 06/14/2019 Time: 03:34 Bed 5 Private MD: ED Physician Michael Mackey HPI: 06/13 03:35 This 44 yrs old Male presents to ER via Unassigned with complaints of low rn glucose. 03:35 The patient or guardian reports hypoglycemia. Onset: The symptoms/episode rn began/occurred just prior to arrival. Associated signs and symptoms: Pertinent negatives: seizure activity, Current symptoms: In the emergency department the patient's symptoms have improved. The patient has experienced similar episodes in the past. Patient with episode of low blood glucose, family gave 2 oral glucose doses with some improvement, given more oral glucose by EMS, per report initial blood glucose 20, now awake and talking, no seizure activity, "happens a lot", and usually at nighttime. Otherwise denies any other symptoms, no recent illness or pain. Took his insulin last night, is not sure what time. . Historical: - Allergies: 03:42 Phenergan; ah - Home Meds: 03:42 alprazolam 0.5 mg Oral Tb24 1 tab once daily [Active]; calcium acetate 667 mg Oral cap ah 3 caps 3 times per day [Active]; nifedipine 90 mg Oral tr24 twice a day [Active]; Novolog Sub-Q 10 10 UNITS AM, 15 UNITS LUNCH AND 10 UNITS AT NIGHT [Active]; ramipril 10 mg Oral cap at bedtime [Active]; ropinirole 1 mg Oral tab at bedtime as needed for Restless Legs Syndrome [Active]; tizanidine 2 mg Oral tab twice a day [Active]; trazodone 100 mg Oral tab nightly [Active]; - PMHx: 03:43 Diabetes - NIDDM; Dialysis; ESRD; Gastroparesis; Hypertension; kidney disease; Cataracts; - Immunization history:: Adult Immunizations up to date, Flu vaccine is up to date. - Social history:: Smoking status: Patient denies any tobacco usage or history of. Patient uses alcohol, occasionally. - Family history:: not pertinent. - Hospitalizations: : No recent hospitalization is reported. ROS: 03:35 Constitutional: Negative for fever, chills, and weight loss, Eyes: Negative for injury, rn pain, redness, and discharge, Neck: Negative for injury, pain, and swelling, Cardiovascular: Negative for chest pain, palpitations, and edema, Respiratory: Negative for shortness of breath, cough, wheezing, and pleuritic chest pain, Abdomen/GI: Negative for abdominal pain, nausea, vomiting, diarrhea, and constipation, MS/Extremity: Negative for injury and deformity, Skin: Negative for injury, rash, and discoloration, Neuro: Negative for headache, weakness, numbness, tingling, and seizure. Exam: 03:35 Constitutional: This is a well developed, well nourished patient who is awake, alert, rn and in no acute distress. Head/Face: Normocephalic, atraumatic. ENT: MMM Cardiovascular: Regular rate and rhythm. No pulse deficits. Respiratory: No increased work of breathing, no retractions or nasal flaring. Abdomen/GI: soft, non-tender Skin: Warm, dry MS/ Extremity: Pulses equal, no cyanosis. Neuro: Awake and alert, GCS 15, oriented to person, place, time, and situation. Vital Signs: 03:36 BP 187 / 86; Pulse 74; Resp 15; Temp 96.9; Pulse Ox 98% on R/A; Weight 90.72 kg; Height ah 5 ft. 6 in. (167.64 cm); 04:04 BP 161 / 83; Pulse 62; Resp 17; Pulse Ox 95% ; ah 03:36 Body Mass Index 32.28 (90.72 kg, 167.64 cm) MDM: 03:34 Patient medically screened. rn 03:39 Differential diagnosis: hypoglycemic episode. Data reviewed: vital signs, nurses notes. rn Counseling: I had a detailed discussion with the patient and/or guardian regarding: the historical points, exam findings, and any diagnostic results supporting the discharge/admit diagnosis. ED course: Pt awake and at baseline, will get glucose level, PO challenge, repeat blood glucose, and if stable and continues to deny symptoms, will discharge in care of family. . 04:23 ED course: Pt back to baseline, glucose normal, family here to pick him up, ate entire rn tray. . 06/13 03:52 Order name: Glucose, Ancillary Testing EDMS 06/13 04:33 Order name: Glucose, Ancillary Testing EDMS 06/13 03:35 Order name: Glucose Level; Complete Time: 03:40 rn 06/13 03:35 Order name: PO challenge; Complete Time: 03:44 rn 06/13 04:23 Order name: Glucose Level rn Administered Medications: No medications were administered Disposition: 06/14/19 04:22 Discharged to Home. Impression: Hypoglycemia, unspecified. - Condition is Stable. - Discharge Instructions: Hypoglycemia, Blood Glucose Monitoring, Adult. - Medication Reconciliation Form, Thank You Letter, Antibiotic Education, Prescription Opioid Use form. - Family Work Release (06/14/19 05:04). sg - Follow up: Private Physician; When: As needed; Reason: Recheck today's complaints, Re-evaluation by your physician. - Problem is new. - Symptoms have improved. Signatures: Dispatcher [employer] [facility] Michael Mackey MD MD rn Harris, Amy, RN RN ah Gay, Steven RN sg Corrections: (The following items were deleted from the chart) 04:39 04:22 06/14/2019 04:22 Discharged to Home. Impression: Hypoglycemia, unspecified. Condition is Stable. Discharge Instructions: Hypoglycemia, Blood Glucose Monitoring, Adult. Forms are Medication Reconciliation Form, Thank You Letter, Antibiotic Education, Prescription Opioid Use. Follow up: Private Physician; When: As needed; Reason: Recheck today's complaints, Re-evaluation by your physician. Problem is new. Symptoms have improved. rn
[2019-06-14 04:48] VITALS: TEMP 96.9
[2019-06-14 04:50] VITALS: BP 161/83; O2SAT 95
== END 2019-06-14 04:39 | disposition home or self-care (01) ==
LOC: ER 03:33
DX: E11.649 Type 2 diabetes mellitus with hypoglycemia without coma (principal); E11.22 Type 2 diabetes mellitus with diabetic chronic kidney disease; I12.0 Hypertensive chronic kidney disease with stage 5 chronic kidney disease or end stage renal disease; N18.6 End stage renal disease; Z99.2 Dependence on renal dialysis; Z79.4 Long term (current) use of insulin; Z88.8 Allergy status to other drugs, medicaments and biological substances
CPT/HCPCS: 82947; 99283

== ENCOUNTER 2019-09-03 19:09 | Emergency (ER) | payer OTHER ==
--- OUTSIDE RECORDS SUMMARY | 2019-09-03 19:11 | XMS REPORT | Clinical Summary ---
:1975 Author Organization [facility] Address [address] [place] [id number] Care Team Providers Name Role Phone Unavailable Primary Care Provider Unavailable Allergies Active Allergy Reactions Severity Noted Date Comments Promethazine 09/12/2017 Medications Not on file Active Problems Problem Noted Date ESRD (end stage renal disease) on dialysis 10/02/2017 Pre-transplant evaluation for chronic kidney disease 0 10/02/2017 Type 2 diabetes mellitus 10/02/2017 Hypertensive renal disease 10/02/2017 Social History Tobacco Use Types Packs/Day Years Used Date Never Smoker Sex Assigned at Date Recorded Not on file Job Start Date Occupation Industry Not on file Not on file Not on file Travel History Travel Start Travel End No recent travel history available. Last Filed Vital Signs Not on file Plan of Treatment Not on file Results Not on fileafter 09/02/2018 Insurance Payer Benefit Plan / Group Subscriber ID Type Phone A ddress MEDICARE MEDICARE A B xxxxxxxxxx Medicare [employer] ALL xxxxxxxxxx Maps Contracted
--- OUTSIDE RECORDS SUMMARY | 2019-09-03 19:13 | XMS REPORT | Continuity of Care Document ---
:1975 Author Organization [employer] Care Team Providers Name Role Phone [employer] Unavailable Un available Problems Problem Status Onset Classification Date Comments Sourc e Date Reported Obesity (BMI Active 07/24/19 11/11/2018 [facility] ealth 30-39.9) 19 GASTROPARESIS Active 09/08/19 Condition 09/07/2014 [facility] dical 15 Group ERECTILE Active 09/08/19 Condition 09/07/2014 [facility] DYSFUNCTION 15 Group PHYSICAL Active 09/08/19 Condition 09/07/2014 Medica l EXAMINATION 15 Group PHYSICAL EXAM Inactive 09/09/19 Condition 09/07/2014 [facility] dical 14 Group HYPERLIPIDEMIA - Active 09/01/19 Condition 09/07/2014 Medical MIXED 14 Group PRE-OP CV EXAM Active 09/01/19 Condition 09/07/2014 [facility] edical 14 Group RENAL FAILURE, Active 06/06/19 Condition 09/07/2014 [facility] edical CHRONIC 13 Group ANEMIA IN CHRONIC Active 06/06/19 Condition 09/07/2014 [facility] Medical KIDNEY DISEASE 13 Group DIAB W/O COMP Active 06/03/19 Condition 09/07/2014 [facility] dical TYPE II/UNS NOT 13 Grou p 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 06/03/19 Condition 09/07/2014 Med ical MANIFESTS TYPE 13 Group II/UNS NOT UNCNTRL COUGH Active 06/03/19 Condition 09/07/2014 Medica l 13 Group DIABETIC Active 03/11/20 Condition 09/07/2014 Medica l RETINOPATHY 12 Group HYPERTENSION Active 03/11/20 Condition 09/07/2014 Med ical 12 Group Chronic Kidney Active 04/07/2012 [facility] Disease, Stage 4 Phy sicians End Stage Renal Active 04/07/2012 [place] Disease Physicians End stage renal Active 11/11/2018 [facility] B Health disease Pre-transplant Active 11/11/2018 [facility] Health evaluation for kidney transplant Medications Medication Details Route Status Patient Ordering Order Source Instructions Provider Date tiZALauradine 2 Active 07/10/ [facility] Health mg tablet 2019 CALCIUM one cap tid Active Medical ACETATE 667 MG with meals 2014 Group CAPS BD INSULIN use as Active Medical SYRINGE directed 2013 Group HALF-UNIT 31G X 5/16" 0.3 ML MISC BD PEN NEEDLE use as Active Medical SHORT U/F 31G directed 2013 Group X 8 MM MISC APIDRA 100 inject No Medical UNIT/ML SOLN 10units in Longer 2013 Group the am, Active 15units at lunch,and 10 units in the evening BD PEN NEEDLE use as Active Medical SHORT U/F 31G directed 2013 Group X 8 MM MISC NOVOLOG 100 inject Active Medical UNIT/ML SOLN 10-15units 2012 Group tid with meals sc NOVOLOG 100 inject Active Medical UNIT/ML SOLN 10-15units 2012 Group tid with meals sc ZITHROMAX Take 2 tab No Medical Z-COLLEEN 250 MG po qd for Longer 2012 Group TABS first day Active then 1 tab po qd thereafter REGLAN 10 MG 1 po qd prn No 12/12/ Medi siva TABS Longer 2011 Group Active ACCU-CHEK Test 3 times Active Medica l FERNANDA STRP a day. 2011 Group LANTUS 18 units at Active Medical SOLOSTAR 100 bedtime fl 2011 Group UNIT/ML SOLN LIPITOR 20 MG 1 po qd Active 12/05/ Medical TABS 2011 Group APIDRA 100 10 -15 units No Medic al UNIT/ML SOLN tid with Longer 2011 Group meals Active REGLAN 10 MG prn No Medical TABS Longer 2011 Group Active LISINOPRIL 30 1 po qd Active 12/05/ Medical MG TABS 2011 Group LANTUS 18 units at Active Medical SOLOSTAR 100 bedtime fl 2011 Group UNIT/ML SOLN LIPITOR 20 MG 1 po qd No Medical TABS Longer 2011 Group Active LISINOPRIL 30 1 tablet Active 12/05/ Medica l MG TABS orally twice 2011 Group a week on Friday and Thursday Lipitor 10 MG (Active) Active [facility] Oral Tablet Physicians Lisinopril 30 (Active) Active [facility] MG Oral Tablet Physician s Apidra 100 (Active) Active [facility] UNIT/ML Physicians Injection Solution Lantus 100 (Active) Active [facility] UNIT/ML Physicians Subcutaneous Solution Lasix 20 MG (Active) Active [facility] Oral Tablet Physicians Reglan 10 MG (Active) Active [facility] Oral Tablet Physicians No Active No Active Active [facility] Medications Medications Physicia ns calcium Take 667 mg Oral Active [facility] Health acetate 667 mg by mouth 3 Tab (three) times daily with meals. ALPRAZolam Take 0.25 mg Oral Active [facility] Hea lth (XANAX) 0.25 by mouth 2 mg tablet (two) times daily. Insulin inject Subcutaneous Active [facility] Health Lispro, Human, under the (HUMALOG) 100 skin. 10 unit/mL units in am cartridge and 15 units in pm NIFEdipine CC Take 90 mg Oral Active [facility] He alth 90 mg SR by mouth 2 tablet (two) times daily. Insulin inject 24 Subcutaneous Active [facility] Heal th Glargine Units under (BASAGLAR the skin. KWIKPEN U-100 INSULIN) 100 unit/mL (3 mL) injection Allergies, Adverse Reactions, Alerts Substance Category Reaction Severity Reaction Status Date Comments S ource type Reported Promethazine Anxiety Propensity Active [facility] Hcl to adverse 7 Healt h reactions No Known Drug drug drug Active [facility] Allergies allergy allergy Physic shay s Not Known [facility] Physicia n s Immunizations Immunization Date Given Site Status Last Updated Comments Ashwini rce Influenza Virus 11/27/2016 completed [facility] B Vaccine Health Pneumococcal 13 05/12/2015 completed [facility] B Conjugate, PCV13 a lt (Prevnar 13) PPD (TB) 04/03/2015 completed [facility] Health Influenza Virus 12/05/2014 completed [facility] B Vaccine Health PPD (TB) 04/13/2014 completed [facility] Health Influenza Virus 11/15/2013 completed [facility] B Vaccine Health PPD (TB) 09/08/2013 completed [facility] Health Hep B, Adol or 12/28/2012 completed [facility] Pedi Dosage Health Influenza Virus 11/20/2012 completed [facility] B Vaccine Health Hep B, Adol or 08/26/2012 completed [facility] Pedi Dosage Health Hep B, Adol or 07/27/2012 completed [facility] Pedi Dosage Health Influenza Virus 07/08/2012 completed [facility] B Vaccine Health Hep B, Adol or 06/19/2012 completed [facility] Pedi Dosage Health Pneumococcal 13 06/19/2012 completed [facility] B Conjugate, PCV13 Hea lth (Prevnar 13) PPD (TB) 05/30/2012 completed [facility] Health Results Order Name Results Value Reference Date Interpretation Comments Ashwini rce Range CHEST 2 <p> Upper normal 11/10 [facility] VIEWS </p><p>Upper cardiac size /2018 Health normal cardiac with minimal size with congestion in minimal the central congestion in and the central lowerlungs, and slightly less lower</p><p>santiago than in ngs, slightly 12/04/2017 less than in study. I, 12/04/2017 Chris study.</p><p> MD Enio., </p><p>I, have reviewed ChrisD this study MD adam., and agree [facility] and report. agree with the</p><p>abov e report.</p> CHEST 2 <p> </p><p>XR XR CHEST 2 11/10 [facility] VIEWS CHEST 2 VW HISTORY: Health VW</p><p> 43 years-old; </p><p>HISTORY Male; : 43 transplant years-old; evaluation Male; COMPARISON: transplant Chest x-ray evaluation 12/04/2017 </p><p> FINDINGS: </p><p>COMPARI The lungs are SON: Chest minimally x-ray congested in 12/04/2017</p&a the central mp;gt;<p> lower regions </p><p>FINDING without S:</p><p> anyfocal </p><p> The consolidation lungs are . There is no minimally pleural congested in effusion or the central pneumothorax. lower regions Cardiac size without is upper any</p><p>foca normal. No l acute osseous consolidation. structure There is no abnormality. pleural Old fracture effusion or deformity in pneumothorax.< theposterior /p><p> axillary </p><p>Cardiac segment of size is upper the right normal.</p><p> ninth rib </p><p>No noted. acute osseous structure abnormality. Old fracture deformity in the</p><p>post erior axillary segment of the right ninth rib noted.</p><p> </p><p> </p> CHEST 2 <p [facility], Radiant Results Inft User - 11/10/2018 10:01 AM CD T 11/10 [facility] VIEWS styleCode="hea XR CHEST 2 VW /2018 [facility]">[facility], HISTORY: 43 years-old; Male; transplant evaluation Radiant COMPARISON: Chest x-ray 12/04/2017 Results Inft FINDINGS: User - The lungs are minim ally congested in the central lower regions without any 11/10/2018 focal consolidation. There is no pleural effusion or pneumothorax. 10:01 AM Cardiac size is upper normal. CDT</p><p><br/ No acute osseous str ucture abnormality. Old fracture deformity in the ><span>XR posterior axillary segment of the right ninth rib note d. CHEST 2 VW</spa IMPRESSION n>

<s Upper normal cardiac size with minimal congestion in the central and lower hawkins>HISTORY: lungs, slightly less than in 12/04/2017 study. 43 years-old; I, Chris Lomeli MD., have reviewed this study and agree with the Male; above report. transplant evaluation </span>
<b r/><span>CO MPARISON: Chest x-ray 12/04/2017</spa n>

&l t;span>FINDING S:</span>

<span> The lungs are minimally congested in the central lower regions without </span><spa n>any</span><b r/><span>focal consolidation. There is no pleural effusion or pneumothorax.< /span>

<span >Cardiac size is upper normal.</span>
<br/& gt;<span>No acute osseous structure abnormality. Old fracture deformity in the</span>< br/><span>post erior axillary segment of the right ninth rib noted.</span>< br/>

<span>I MPRESSION</spa n>

<s hawkins>Upper normal cardiac size with minimal congestion in the central and </span><span&g t;lower</span>
<span>concepcion gs, slightly less than in 12/04/2017 study.</span>< br/>
<span >IChris MD., have reviewed this study and agree with </span><span>t he</span>
<span>above report.</span> </p> Chemistry HGBA1C 7.3 - 5.6 10/23 [facility] Group Chemistry CHOLESTEROL 178 - 199 10/23 Medical Group Chemistry TRIGLYCERIDE 129 - 149 10/23 Medical Group Chemistry HDL 40 >=61 10/23 [facility] Group Chemistry LDL 112 - 99 10/23 Medical Group Chemistry SODIUM 141 MEQ/L 135 - 145 10/23 Medical Group Chemistry POTASSIUM 4.5 MEQ/L 3.5 - 5.1 10/23 [facility] Group Chemistry CREATININE 6.4 0.5 - 1.4 10/23 [facility] Group Chemistry BUN 57 7 - 22 10/23 Medical Group Chemistry BUN/CREAT 9 6 - 25 10/23 [facility] Group Chemistry ALBUMIN 3.6 3.5 - 5.0 10/23 [facility] Group Chemistry CALCIUM 9.0 8.5 - 10.5 10/23 Medical Group Chemistry SGPT (ALT) 21 0 - 65 10/23 [facility] Group Chemistry SGOT (AST) 9 0 - 37 10/23 [facility] Group Chemistry ALK PHOS 67 39 - 136 10/23 Medical Group Hematology HGB 13.2 14.0 - 10/23 18.0 Medical Group Hematology HCT 41.5 42.0 - 10/23 54.0 Medical Group Hematology PLATELETS 217 K/CMM 133 - 450 10/23 Medical Group Chemistry HGBA1C 5.1 06/04 Medical Group Chemistry CHOLESTEROL 292 120 - 200 06/04 [facility] Group Chemistry TRIGLYCERIDE 200 0 - 200 06/04 Medical Group Chemistry HDL 37 >=35 06/04 Medical Group Chemistry LDL 215 0 - 129 06/04 Medical Group Chemistry SODIUM 139 MEQ/L 135 - 145 06/04 Medical Group Chemistry POTASSIUM 4.6 MEQ/L 3.5 - 5.1 06/04 Medical Group Chemistry CREATININE 7.4 0.5 - 1.4 06/04 Medical Group Chemistry BUN 53 7 - 22 06/04 Medical Group Chemistry BUN/CREAT 7 6 - 25 06/04 Medical Group Chemistry ALBUMIN 2.2 3.5 - 5.0 06/04 Medical Group Chemistry CALCIUM 7.2 8.5 - 10.5 06/04 Medical Group Chemistry SGPT (ALT) 24 0 - 65 06/04 Medical Group Chemistry SGOT (AST) 27 0 - 37 06/04 Medical Group Chemistry ALK PHOS 66 39 - 136 06/04 Medical Group Chemistry HGBA1C 5.1 06/04 Medical Group Chemistry CHOLESTEROL 292 120 - 200 06/04 Medical Group Chemistry TRIGLYCERIDE 200 0 - 200 06/04 Medical Group Chemistry HDL 37 >=35 06/04 Medical Group Chemistry LDL 215 0 - 129 06/04 Medical Group Chemistry SODIUM 139 MEQ/L 135 - 145 06/04 Medical Group Chemistry POTASSIUM 4.6 MEQ/L 3.5 - 5.1 06/04 Medical Group Chemistry CREATININE 7.4 0.5 - 1.4 06/04 Medical Group Chemistry BUN 53 7 - 22 06/04 Medical Group Chemistry BUN/CREAT 7 6 - 25 06/04 Medical Group Chemistry ALBUMIN 2.2 3.5 - 5.0 06/04 Medical Group Chemistry CALCIUM 7.2 8.5 - 10.5 06/04 Medical Group Chemistry SGPT (ALT) 24 0 - 65 06/04 Medical Group Chemistry SGOT (AST) 27 0 - 37 06/04 Medical Group Chemistry ALK PHOS 66 39 - 136 06/04 Medical Group Hematology HGB 7.9 14.0 - 06/04 MH 18.0 Medical Group Hematology HCT 23.7 42.0 - 06/04 MH 54.0 Medical Group Hematology PLATELETS 289 K/CMM 133 - 450 06/04 Medical Group Hematology HGB 7.9 14.0 - 06/04 MH 18.0 Medical Group Hematology HCT 23.7 42.0 - 06/04 MH 54.0 /2012 Medical Group Hematology PLATELETS 289 K/CMM 133 - 450 06/04 Medical Group Chemistry HGBA1C 6.9 11/11 Medical Group Chemistry TSH 1.420 0.360 - 11/11 3.740 /2011 Medical Group Chemistry CHOLESTEROL 327 120 - 200 11/11 Medical Group Chemistry TRIGLYCERIDE 155 0 - 200 11/11 Medical Group Chemistry HDL 54 >=35 11/11 Medical Group Chemistry LDL 242 0 - 129 11/11 Medical Group Chemistry SODIUM 141 MEQ/L 135 - 145 11/11 Medical Group Chemistry POTASSIUM 4.7 MEQ/L 3.5 - 5.1 11/11 Medical Group Chemistry CREATININE 4.9 0.5 - 1.4 11/11 Medical Group Chemistry BUN 63 7 - 22 11/11 Medical Group Chemistry BUN/CREAT 13 6 - 25 11/11 Medical Group Chemistry ALBUMIN 1.8 3.5 - 5.0 11/11 Medical Group Chemistry CALCIUM 7.6 8.5 - 10.5 11/11 Medical Group Chemistry SGPT (ALT) 17 0 - 65 11/11 Medical Group Chemistry SGOT (AST) 14 0 - 37 11/11 Medical Group Chemistry ALK PHOS 68 39 - 136 11/11 Medical Group Pathology Reports No Data Provided [...] Medical Group Heart Rate 82 09/07/2014 Medical Gr[facility] p Temperature Oral (F) 98.3 F 09/07/2014 [facility] Group Height 66 09/07/2014 Medical Grou p Weight 210 09/07/2014 Medical Grou p Respitory Rate 14 09/07/2014 Medical Gr oup Weight 204 09/08/2013 Medical Grou p Temperature Oral (F) 98.0 F 09/08/2013 Medi siva Group Heart Rate 77 09/08/2013 Medical Grou p Systolic (mm Hg) 170 09/08/2013 Medical Group Diastolic (mm Hg) 94 09/08/2013 Medical Group Systolic (mm Hg) 110 08/31/2013 Medical Group Diastolic (mm Hg) 74 08/31/2013 Medical Group Heart Rate 84 08/31/2013 Medical Grou p Weight 198 08/31/2013 Medical Grou p Weight 202 06/02/2012 Medical Grou p Height 66 06/02/2012 Medical Grou p Temperature Oral (F) 98.4 F 06/02/2012 Medi siva Group Heart Rate 100 06/02/2012 Medical Grou p Systolic (mm Hg) 131 06/02/2012 Medical Group Diastolic (mm Hg) 78 06/02/2012 Medical Group Encounters Location Location Encounter Encounter Reason Attending ADM DC Stat us Source Details Type Number For Provider Date Date Visit AUDIT [id number] 01/30 Physicia ns AUDIT [id number] 01/30 Physicia ns AUDIT [id number] 01/30 Physicia ns AUDIT [id number] 02/03 Physicia ns AUDIT [id number] 03/08 Physicia ns AUDIT [id number] 04/07 [facility] [id number] Oralia Murray, 08/31 08/[facility] [address] [facility] [id number] Lyric 09/08 09/08 [place] Visit [id number] MD Javier /2013 [facility] [address] [facility] Lab Report [id number] Lyric 02/23 02/23 [place] [id number] MD Javier /2013 [facility] [id number] Elmer 09/07 09/07 [facility] Visit [id number] MD Lupillo /2014 [facility] [place] [facility] Health Telephone [id number] Aguilar 10/28 [facility] Transplant- Oscar SAINI /2018 [facility] Health Telephone [id number] Aguilar 10/28 [facility] Oscar SAINI /2018 Health Transplant Center [facility] Health Abstract [id number] Aguilar 11/02 [facility] Oscar SAINI /2018 Health Transplant Center [facility] Health Committee [id number] Aguilar 11/02 [facility] Transplant- Review Oscar SAINI [facility] Health Abstract [id number] Aguilar 11/02 [facility] Oscar SAINI /2018 Health Transplant Center [facility] Health Case [id number] Aguilar 11/02 [facility] Management Oscar SAINI [facility] Transplant Center [facility] Health Telephone [id number] Aguilar 11/03 [facility] Oscar SAINI /2018 Health Transplant Center [facility] Orders Only [id number] No Doctor 11/10 [facility] Unassigned Health [facility] [id number] Aguilar 11/10 11/11 [facility] [place] Encounter Oscar SAINI /2018 [facility] Procedures Procedure Code Date Perfomer Comments Source XR CHEST 2 VW [id number] 11/10/2018 Oscar [facility] [place] [id number] 11/10/2018 Doctor Unassigned [facility] Health BENEFITS Assessment and Plan No Data Provided for This Section Plan of Care Plan of Care Date Source Glycosylated Henoglobin (A1C) 2019 [facility] Healt h LAB AKIL End stage renal diseasePre-transplant evaluation for kidney transplant 1 Occurrences starting 11/02/2018 until 2019 Hepatitis B Surface Antigen 2019 [facility] Health LAB AKIL End stage renal diseasePre-transplant evaluation for kidney transplant 1 Occurrences starting 11/02/2018 until 2019 Hepatitis B Surface Antibody 2019 [facility] Health LAB AKIL End stage renal diseasePre-transplant evaluation for kidney transplant 1 Occurrences starting 11/02/2018 until 2019 HBC Antibody (IGM and IGG) [facility] End stage renal diseasePre-transplant evaluation for kidney transplant 1 Occurrences starting 11/02/2018 until 2019 HCV Antibody 2019 [facility] End stage renal diseasePre-transplant evaluation for kidney transplant 1 Occurrences starting 11/02/2018 until 2019 HAV Antibody (IGG and IGM) 2019 [facility] End stage renal diseasePre-transplant evaluation for kidney transplant 1 Occurrences starting 11/02/2018 until 2019 HIV 1/2 AG-AB WITH REFLEX 2019 [facility] End stage renal diseasePre-transplant evaluation for kidney transplant 1 Occurrences starting 11/02/2018 until 2019 Toxoplasma IGG Antibody 2019 [facility] End stage renal diseasePre-transplant evaluation for kidney transplant 1 Occurrences starting 11/02/2018 until 2019 GALV ONLY - SYPHILIS IGG/IGM 2019 [facility] End stage renal diseasePre-transplant evaluation for kidney transplant 1 Occurrences starting 11/02/2018 until 2019 EKG-12 LEAD ROUTINE 2019 [facility] STATION [facility] End stage renal diseasePre-transplant evaluation for kidney transplant 1 Occurrences starting 11/02/2018 until 2019 INFLUENZA VACCINE (#1) 2018 [facility] Upcoming EncountersDateTypeSpecialtyCare TeamDescription [facility] 12/01/2018 Appointment Echocardiograph Sarah Lewis MD[address] [place] [address] [place] [address] [phone] (Fax) Tech, [facility] 12/01/2018 Appointment Radiology Lauren Moore MD[address], [place] [phone] (Fax) 12/01/2018 Appointment Radiology Lauren Moore MD[address], [place] [phone] (Fax) 12/01/2018 Appointment Radiology Lauren Moore MD[address], [place] [phone] (Fax) 12/01/2018 Appointment Radiology Lauren Moore MD[address], [place] [phone] (Fax) 12/24/2018 Office Visit Cardiology Mariposa Crawford MD[address] [phone] (Fax) Health MaintenanceDue DateLast DoneComments DTaP,Tdap,and Td Vaccines (1 - Tdap) 1995 INFLUENZA VACCINE (#1) 2018 11/27/2016, 12/05/2014, 11/15/2013, Additional history exist s PNEUMOCOCCAL 0-64 YEARS COMBINED SERIES Aged Out 05/12/2015, 06/19/2012 No longer eligible based on patient's age to complete this t opic documented as of this encounter Upcoming EncountersDateTypeSpecialtyCare TeamDescription [facility] 11/10/2018 Appointment Radiology Lauren Moore MD[address] [place] [address] [phone] (Fax) 12/01/2018 Appointment Echocardiograph Sarah Lewis MD[address] [facility] [address] [place] [address] [phone] (Fax) Tech, [facility] 12/01/2018 Appointment Radiology Lauren Moore MD[address], [place] [phone] (Fax) 12/01/2018 Appointment Radiology Lauren Moore MD[address], [place] [phone] (Fax) 12/01/2018 Appointment Radiology Lauren Moore MD[address], [place] [phone] (Fax) 12/01/2018 Appointment Radiology Lauren Moore MD[address], [place] [phone] (Fax) 12/24/2018 [facility] [facility] [address] [phone] (Fax) Health MaintenanceDue DateLast DoneComments DTaP,Tdap,and Td Vaccines (1 - Tdap) 1995 INFLUENZA VACCINE (#1) 2018 11/27/2016, 12/05/2014, 11/15/2013, Additional history exist s PNEUMOCOCCAL 0-64 YEARS COMBINED SERIES Aged Out 05/12/2015, 06/19/2012 No longer eligible based on patient's age to complete this t opic documented as of this encounter Upcoming EncountersDateTypeSpecialtyCare TeamDescription [facility] 12/24/2018 Office Visit Cardiology Mariposa Crawford [facility] [facility] [address] [place] [phone] (Fax) Health MaintenanceDue DateLast DoneComments DTaP,Tdap,and Td Vaccines (1 - Tdap) 1995 INFLUENZA VACCINE (#1) 2018 11/27/2016, 12/05/2014, 11/15/2013, Additional history exist s PNEUMOCOCCAL 0-64 YEARS COMBINED SERIES Aged Out 05/12/2015, 06/19/2012 No longer eligible based on patient's age to complete this t opic documented as of this encounter Upcoming EncountersDateTypeSpecialtyCare TeamDescription [facility] 12/24/2018 Office Visit Cardiology Mariposa Crawford MD[address] [place] [phone] (Fax) Health MaintenanceDue DateLast DoneComments DTaP,Tdap,and Td Vaccines (1 - Tdap) 1995 INFLUENZA VACCINE (#1) 2018 11/27/2016, 12/05/2014, 11/15/2013, Additional history exist s PNEUMOCOCCAL 0-64 YEARS COMBINED SERIES Aged Out 05/12/2015, 06/19/2012 No longer eligible based on patient's age to complete this t opic documented as of this encounter Upcoming EncountersDateTypeSpecialtyCare TeamDescription [facility] 12/24/2018 Office Visit Cardiology Mariposa Crawford MD[address] [place] [phone] (Fax) Health MaintenanceDue DateLast DoneComments DTaP,Tdap,and Td Vaccines (1 - Tdap) 1995 INFLUENZA VACCINE (#1) 2018 11/27/2016, 12/05/2014, 11/15/2013, Additional history exist s PNEUMOCOCCAL 0-64 YEARS COMBINED SERIES Aged Out 05/12/2015, 06/19/2012 No longer eligible based on patient's age to complete this t opic documented as of this encounter Upcoming EncountersDateTypeSpecialtyCare TeamDescription [facility] 12/24/2018 Office Visit Cardiology Mariposa Crawford MD[address] [place] [phone] (Fax) Scheduled OrdersNameTypePriorityAssociated DiagnosesOrder Sc hedule Glycosylated Henoglobin (A1C) LAB AKIL End stage renal diseasePre-transplant evaluation for kidney transplant 1 Occurrences starting 11/02/2018 until 2019 Hepatitis B Surface Antigen LAB AKIL End stage renal diseasePre-transplant evaluation for kidney transplant 1 Occurrences starting 11/02/2018 until 2019 Hepatitis B Surface Antibody LAB AIKL End stage renal diseasePre-transplant evaluation for kidney transplant 1 Occurrences starting 11/02/2018 until 2019 HBC Antibody (IGM and IGG) LAB AKIL End stage renal diseasePre-transplant evaluation for kidney transplant 1 Occurrences starting 11/02/2018 until 2019 HCV Antibody LAB AKIL End stage renal diseasePre-transplant evaluation for kidney transplant 1 Occurrences starting 11/02/2018 until 2019 HAV Antibody (IGG and IGM) LAB AKIL End stage renal diseasePre-transplant evaluation for kidney transplant 1 Occurrences starting 11/02/2018 until 2019 HIV 1/2 AG-AB WITH REFLEX LAB AKIL End stage renal diseasePre-transplant evaluation for kidney transplant 1 Occurrences starting 11/02/2018 until 2019 Toxoplasma IGG Antibody LAB AKIL End stage renal diseasePre-transplant evaluation for kidney transplant 1 Occurrences starting 11/02/2018 until 2019 GALV ONLY - SYPHILIS IGG/IGM LAB AKIL End stage renal diseasePre-transplant evaluation for kidney transplant 1 Occurrences starting 11/02/2018 until 2019 CHEST 2 VIEWS IMAGING AKIL End stage renal diseasePre-transplant evaluation for kidney transplant Expected: 11/02/2018, Expires: 2019 EKG-12 LEAD ROUTINE HEART STATION AKIL End stage renal diseasePre-transplant evaluation for kidney transplant 1 Occurrences starting 11/02/2018 until 2019 NM MYOCARDIUM PERFUSION STRESS AND REST IMAGING AKIL End stage renal diseasePre-transplant evaluation for kidney transplant Expected: 11/02/2018, Expires: 2019 Health MaintenanceDue DateLast DoneComments DTaP,Tdap,and Td Vaccines (1 - Tdap) 1995 INFLUENZA VACCINE (#1) 2018 11/27/2016, 12/05/2014, 11/15/2013, Additional history exist s PNEUMOCOCCAL 0-64 YEARS COMBINED SERIES Aged Out 05/12/2015, 06/19/2012 No longer eligible based on patient's age to complete this t opic documented as of this encounter Upcoming EncountersDateTypeSpecialtyCare TeamDescription [facility] 12/[facility]/2018 Office Visit Cardiology Mariposa Crawford MD[address] [phone] (Fax) Health MaintenanceDue DateLast DoneComments DTaP,Tdap,and Td Vaccines (1 - Tdap) 1995 INFLUENZA VACCINE (#1) 2018 11/27/2016, 12/05/2014, 11/15/2013, Additional history exist s PNEUMOCOCCAL 0-64 YEARS COMBINED SERIES Aged Out 05/12/2015, 06/19/2012 No longer eligible based on patient's age to complete this t opic documented as of this encounter CHEST 2 VIEWS 11/02/2018 [facility] End stage renal diseasePre-transplant evaluation for kidney transplant Expected: 11/02/2018, Expires: 2019 NM MYOCARDIUM PERFUSION STRESS AND REST 11/02/2018 [facility] End stage renal diseasePre-transplant evaluation for kidney transplant Expected: 11/02/2018, Expires: 2019 Upcoming EncountersDateTypeSpecialtyCare TeamDescription [facility] 12/24/2018 Office Visit Cardiology Mariposa Crawford MD[address], [place] [phone] (Fax) Health MaintenanceDue DateLast DoneComments DTaP,Tdap,and Td Vaccines (1 - Tdap) 1995 INFLUENZA VACCINE 11/15/2018 11/27/2016, 12/05/2014, 11/15/2013, Additional history exist s PNEUMOCOCCAL 0-64 YEARS COMBINED SERIES Aged Out 05/12/2015, 06/19/2012 No longer eligible based on patient's age to complete this t opic documented as of this encounter Upcoming EncountersDateTypeSpecialtyCare TeamDescription [facility] 12/24/2018 Office Visit Cardiology Mariposa Crawford [address] [place] [address], [place] [phone] (Fax) Health MaintenanceDue DateLast DoneComments DTaP,Tdap,and Td Vaccines (1 - Tdap) 1995 INFLUENZA VACCINE 11/15/2018 11/27/2016, 12/05/2014, 11/15/2013, Additional history exist s PNEUMOCOCCAL 0-64 YEARS COMBINED SERIES Aged Out 05/12/2015, 06/19/2012 No longer eligible based on patient's age to complete this t opic documented as of this encounter DTaP,Tdap,and Td Vaccines (1 - Tdap) 1995 [facility] Social History Social History Date Source Tobacco UseTypesPacks/DayYears UsedDate 08/20/2018 [facility] Health Never Smoker Smokeless Tobacco: Never Used Alcohol UseDrinks/Weekoz/WeekComments Yes quit 4-5 years ago Sex Assigned at BirthDate Recorded Not on file Job Start DateOccupationIndustry Not on file Not on file Not on file Travel HistoryTravel StartTravel End No recent travel history available. documented as of this encounter Never A Smoker (Active) 04/07/2012 [facility] Never Drank Alcohol (Active) Family History No Data Provided for This Section Advance Directives Order Name Results Value Date Source Advance Directives Advance Directives No Advance 04/07/2012 [facility] Directives available. Advance Directives Advance Directives No Advance 03/08/2012 [facility] Directives available. Advance Directives Advance Directives No Advance 02/04/2012 [facility] Directives available. Advance Directives Advance Directives No Advance 02/01/2012 [facility] Directives available. Advance Directives Advance Directives No Advance 01/31/2012 [facility] Directives available. Advance Directives Advance Directives No Advance 01/31/2012 [facility] Directives available. Functional Status No Data Provided for This Section
--- OUTSIDE RECORDS SUMMARY | 2019-09-03 19:14 | XMS REPORT | Continuity of Care Document ---
:1975 Author Organization [facility] t Address [address] [place] [address] Care Team Providers Name Role Phone Oscar SAINI, Lauren Bobo Attending Clinician Doctor Unassigned, Name Attending Clinician Unavailable Problems Condition Condition Condition Status Onset Resolution Last Treating Co mments Source Name Details Category Date Date Treatment Clinician Date Obesity Condition Active 2018-11-11 Me moria (BMI 5-09 07:05:30 l 30-39.9) Obesity 00:00: [place] chan (BMI 00 30-39.9) Active 07/23/2018 11/11/2018 [facility] (end ESRD (end Disease [facility] renal 00:00: Medical disease) disease) 00 Center on on dialysis dialysis Pre-transp Pre-transp Disease Active [facility] evaluation evaluation 00:00: Me dical for for 00 Center chronic chronic kidney kidney disease disease Type 2 Type [address] [facility] diabetes diabetes 10-02 [facility] mellitus mellitus 00:00: Medica l 00 Center Hypertensi Hypertensi Disease Active [facility] renal [facility] disease disease 00:00: Medical 00 Center GASTROPARE Condition Active 2014-09-07 Memoria SIS 09-07 10:20:15 l 00:00: [place] GASTROPARE 00 SIS Active 09/07/2014 [facility] ERECTILE Condition Active 2014-09-07 M emoria DYSFUNCTIO 09-07 10:20:15 l N ERECTILE 00:00: Simon n DYSFUNCTIO 00 N Active 09/07/2014 [facility] PHYSICAL Condition Active 2014-09-07 M emoria EXAMINATIO 09-07 10:20:15 l N PHYSICAL 00:00: Simon n EXAMINATIO 00 N Active 09/07/2014 [facility] HYPERLIPID [facility] - - 10:20:15 l MIXED 00:00: [place] HYPERLIPID 00 EMIA - MIXED Active 08/31/2013 [facility] PRE-OP CV Condition Active 2014-09-07 Memoria EXAM - 10:20:15 l PRE-OP 00:00: [place] CV EXAM 00 Active 08/31/2013 [facility] RENAL Condition Active 2014-09-07 Mem oria FAILURE, 06-05 10:20:15 l CHRONIC RENAL 00:00: [place] FAILURE, 00 CHRONIC Active 06/05/2012 [facility] ANEMIA IN Condition Active 2014-09-07 Memoria CHRONIC 06-05 10:20:15 l KIDNEY ANEMIA 00:00: [place] DISEASE IN CHRONIC 00 KIDNEY DISEASE Active 06/05/2012 [facility] DIAB W/O Condition Active 2014-09-07 M emoria COMP TYPE 06-02 10:20:15 l II/UNS NOT DIAB W/O 00:00: Kimani key STATED COMP TYPE 00 UNCNTRL II/UNS NOT STATED UNCNTRL Active 06/02/2012 [facility] DIAB Condition Active 2014-09-07 Mem oria W/RENAL - 10:20:15 l MANIFESTS DIAB 00:00: [place] TYPE W/RENAL 00 II/UNS NOT MANIFESTS UNCNTRL TYPE II/UNS NOT UNCNTRL Active 06/02/2012 [facility] COUGH Condition Active 2014-09-07 Mem oria 3- 10:20:15 l COUGH 00:00: [place] 00 Active 06/02/2012 [facility] DIABETIC Condition Active 2011-032014-09-07 M emoria RETINOPATH 05-12 10:20:15 l Y DIABETIC 00:00: Simon chapman RETINOPAT 00 HY Active 2 Condition 09/07/2014 [facility] Group HYPERTENSI Condition Active 2011-032014-09-07 Memoria ON 05-12 10:20:15 l 00:00: [place] HYPERTENSI 00 ON Active 2 Condition 09/07/2014 [facility] Chronic Problem Active 2012-04-07 Mariano steven Kidney 21:40:14 l Disease, Chronic [place] nn Stage 4 Kidney Disease, Stage 4 Active [facility] End Stage Problem Active 2012-04-07 Me moria Renal 21:40:14 l Disease End [place] Stage Renal Disease Active 3 [facility] End stage Diagnosis Active 2018-11-11 Memoria renal 07:05:30 l disease End [place] stage renal disease Active 9 [facility] Pre-transp Diagnosis Active 2018-11-11 Memoria lant 07:05:30 l evaluation Simon n for kidney Pre-transp transplant lant evaluation for kidney transplant Active 11/11/2018 [facility] Allergies, Adverse Reactions, Alerts Allergy Allergy Status Severity Reaction(s) Onset Inactive Treating Comm ents Source Name Type Date Date Clinician Klaus Juarez Active [facility] adverse 00:[facility]: Medical reaction 00 Center s Promsunitha Prometha Active Anxiety Memor ia zine Hcl zine Hcl 7-25 l 00:00: [place] 00 No Known No Known Active Memori a Drug Drug l Allergie Allergie Simon n s s Not Not Active Memoria Known Known l [place] Social History Social Habit Start Date Stop Date Quantity Comments Source Sex Assigned At [facility] Social History 2012-04-07 2012-04-07 Fermin knightarnol 21:40:14 21:40:14 Smoking Status Start Date Stop Date Source Tobacco smoking status NHIS Mariano Peoples Medications Ordered Filled Start Stop Current Ordering Indication Dosage Frequency Signature Comments Components Source Medication Medication Date Date Medication? Clinician (SIG) Name Name calcium Yes Take 667 Memori a acetate 667 8-28 mg by l mg Tab 07:05: mouth 3 [place] 30 (three) times daily with meals. ALPRAZolam Yes Take 0.25 Me moria (XANAX) 8-28 mg by l 0.25 mg 07:05: mouth 2 [place] tablet 30 (two) times daily. Insulin Yes inject Memoria Lispro, 8-28 under the l Human, 07:05: skin. 10 [place] (HUMALOG) 30 units in 100 unit/mL am and 15 cartridge units in pm NIFEdipine Yes Take 90 mg M emoria CC 90 mg SR 8-28 by mouth 2 l tablet 07:05: (two) [place] 30 times daily. Insulin Yes inject 24 Memor ia Glargine 8-28 Units l (BASAGLAR 07:05: under the Her laurent KWIKPEN 30 skin. U-100 INSULIN) 100 unit/mL (3 mL) injection tiZANidine Yes Memoria 2 mg tablet 4-26 l 00:00: [place] 00 CALCIUM Yes one cap Memoria ACETATE 667 6-24 tid with l MG CAPS 00:00: meals [place] 00 BD INSULIN Yes use as Memor ia SYRINGE 3-05 directed l HALF-UNIT 00:00: [place] 31G X 5/16" 00 0.3 ML MISC BD PEN Yes use as Memoria NEEDLE 3-04 directed l SHORT U/F 00:00: [place] 31G X 8 MM 00 MISC APIDRA 100 No inject Memor ia UNIT/ML 3-04 10units in l SOLN 00:00: the am, [place] 00 15units at lunch,and 10 units in the evening BD PEN Yes use as Memoria NEEDLE 3-04 directed l SHORT U/F 00:00: [place] 31G X 8 MM 00 MISC NOVOLOG 100 2012-03 Yes inject Mariano steven UNIT/ML -19 10-15units l SOLN 00:00: tid with [place] 00 meals pr NOVOLOG 100 2012-03 Yes inject Mariano steven UNIT/ML -19 10-15units l SOLN 00:00: tid with [place] 00 meals pr ZITHROMAX No Take 2 tab Me moria Z-COLLEEN 250 3-19 po qd for l MG TABS 00:00: first day [place] nn 00 then 1 tab po qd thereafter Lipitor 10 Yes (Active) Me moria MG Oral 1-22 l Tablet 21:40: [place] 14 Lisinopril Yes (Active) Me moria 30 MG Oral 1-22 l Tablet 21:40: [place] 14 Apidra 100 Yes (Active) Me moria UNIT/ML 1-22 l Injection 21:40: [place] Edward 14 Lantus 100 Yes (Active) Me moria UNIT/ML 1-22 l Subcutaneou 21:40: Simon lima Solution 14 Lasix 20 MG Yes (Active) M emoria Oral Tablet 1-22 l 21:40: [place] 14 Reglan 10 Yes (Active) Mem oria MG Oral 1-22 l Tablet 21:40: [place] P[place] No Active 2011-03 Yes No Active Mem oria Medications 1-17 Medication l 01:30: s [place] 26 REGLAN 10 No 1 po qd Memor ia MG TABS 9-28 prn l 00:00: ACCU-CHEK Yes Test 3 Memori a FERNANDA STRP 9-25 times a l 00:00: day. LANTUS Yes 18 units Memoria SOLOSTAR 9-21 at bedtime l 100 UNIT/ML 00:00: sc Simon n SOLN 00 LIPITOR 20 Yes 1 po qd Mariano steven MG TABS 9-21 l 00:00: APIDRA 100 No 10 -15 Memor ia UNIT/ML 9-21 units tid l SOLN 00:00: with meals REGLAN 10 No prn Memoria MG TABS 9-21 l 00:00: [place] LISINOPRIL Yes 1 po qd Mariano steven 30 MG TABS 9-21 l 00:00: [place] LANTUS Yes 18 units Memoria SOLOSTAR 9-21 at bedtime l 100 UNIT/ML 00:00: sc Simon n SOLN 00 LIPITOR 20 No 1 po qd Mariano steven MG TABS 9-21 l 00:00: [place] LISINOPRIL Yes 1 tablet Mem oria 30 MG TABS 9-21 orally l 00:00: twice a [place] week on Friday and Vital Signs Vital Name Observation Time Observation Value Comments Source Systolic (mm Hg) 2014-09-07 15:20:15 Mariano rial [place] Diastolic (mm Hg) 2014-09-07 15:20:15 Mem orial [place] Heart Rate 2014-09-07 15:20:15 [facility] [place] Temperature Oral (F) 2014-09-07 15:20:15 98.3 F [facility] [place] Height 2014-09-07 15:20:15 [facility] [place] Weight 2014-09-07 15:20:15 [facility] [place] Respitory Rate 2014-09-07 15:20:15 Memori al [place] Weight 2013-09-08 14:22:12 [facility] [place] Temperature Oral (F) 2013-09-08 14:22:12 98.0 F [facility] [place] Heart Rate 2013-09-08 14:22:12 [facility] [place] Systolic (mm Hg) 2013-09-08 14:22:12 Mariano rial [place] Diastolic (mm Hg) 2013-09-08 14:22:12 Mem orial [place] Systolic (mm Hg) 2013-08-31 15:43:31 Mariano rial [place] Diastolic (mm Hg) 2013-08-31 15:43:31 Mem orial [place] Heart Rate 2013-08-31 15:43:31 [facility] [place] Weight 2013-08-31 15:43:31 [facility] [place] Weight 2012-06-02 15:36:10 [facility] [place] Height 2012-06-02 15:36:10 [facility] [place] Temperature Oral (F) 2012-06-02 15:36:10 98.4 F [facility] [place] Heart Rate 2012-06-02 15:36:10 [facility] [place] Systolic (mm Hg) 2012-06-02 15:36:10 Mariano rial [place] Diastolic (mm Hg) 2012-06-02 15:36:10 Mem orial [place] Procedures Procedure Date / Time Performed Performing Clinician Blayne e XR CHEST 2 VW 2018-11-10 19:48:46 Lauren Moore [facility] [place] ASSIGNMENT OF BENEFITS 2018-11-10 19:28:38 Doctor Unassigned, No [facility] [place] Name Plan of Care Planned Activity Planned Date Details Comments Source Future Scheduled 2019 Glycosylated [facility] Test 00:00:00 Henoglobin (A1C) [code = 89890-5] Future Scheduled 2019 Hepatitis B Surface Mariano rial [place] Test 00:00:00 Antigen [code = 01688-9] Future Scheduled 2019 Hepatitis B Surface Mariano rial [place] Test 00:00:00 Antibody [code = 92824-7] Future Scheduled 2019 HBC Antibody (IGM & Mariano rial [place] Test 00:00:00 IGG) [code = 2939] Future Scheduled 2019 HCV Antibody [code = Mem orial [place] Test 00:00:00 79743-9] Future Scheduled 2019 HAV Antibody (IGG & Mariano rial [place] Test 00:00:00 IGM) [code = 84797] Future Scheduled 2019 HIV 1/2 AG-AB WITH Memor ial [place] Test 00:00:00 REFLEX [code = 44951-2] Future Scheduled 2019 Toxoplasma IGG [facility] [place] Test 00:00:00 Antibody [code = 2897] Future Scheduled 2019 GALV ONLY - SYPHILIS Mem orial [place] Test 00:00:00 IGG/IGM [code = 33539-6] Future Scheduled 2019 EKG-12 LEAD ROUTINE Mariano rial [place] Test 00:00:00 [code = 4135] Future Scheduled 2018-11-15 Plan of Care [code = Mem orial [place] Test 00:00:00 16950-1] Future Scheduled 2018-11-11 Plan of Care [code = Mem orial [place] Test 04:59:00 41791-5] Future Scheduled 2018-11-10 Plan of Care [code = Mem orial [place] Test 14:28:41 51337-3] Future Scheduled 2018-11-03 Plan of Care [code = Mem orial [place] Test 18:28:06 25524-2] Future Scheduled 2018-11-03 Plan of Care [code = Mem orial [place] Test 18:21:37 05866-5] Future Scheduled 2018-11-02 Plan of Care [code = Mem orial [place] Test 20:35:38 68378-8] Future Scheduled 2018-11-02 Plan of Care [code = Mem orial [place] Test 18:19:05 92842-3] Future Scheduled 2018-11-02 Plan of Care [code = Mem orial [place] Test 15:45:09 39947-6] Future Scheduled 2018-11-02 CHEST 2 VIEWS [code = Me morial [place] Test 00:00:00 237] Future Scheduled 2018-11-02 NM MYOCARDIUM [facility] Test 00:00:00 PERFUSION STRESS AND REST [code = 75619] Future Scheduled 2018-10-28 Plan of Care [code = Mem orial [place] Test 17:28:34 68041-9] Future Scheduled 2018-10-28 Plan of Care [code = Mem orial [place] Test 15:15:15 85099-1] Future Scheduled 1995 Plan of Care [code = Mem orial [place] Test 00:00:00 86239-6] Encounters Start End Encounter Admission Attending Care Care Encounter Source Date/Time Date/Time Type Type Clinicians Facility Department ID 2018-06-22 Inpatient [id number] [facility] 07:53:49 2018-06-22 Outpatient [id number] 07:53:48 2019-08-20 2019-08-20 Telephone LEELA Moore [id number] 00:00:00 00:00:00 Lauren Bobo MULTISPEC 350.1.13.10 IALTY 4.2.7.2.686 [place] [id number] [facility] 2019-06-01 2019-06-01 Letter LEELA Moore [id number] 00:00:00 00:00:00 (Out) Lauren Bobo MULTISPEC 350.1.13.10 IALTY 4.2.7.2.686 [place] [id number] [facility] 2018-11-10 2018-11-10 [facility] [id number] 09:30:00 23:59:00 Encounter Aguilar A [place] 350.1.13.10 [place] 4.2.7.2.686 [place] [id number] 2018-11-10 2018-11-10 [facility] [id number] 09:30:00 23:59:00 Encounter Aguilar A [place] 350.1.13.10 [place] 4.2.7.2.686 [place] [id number] 2018-11-10 2018-11-10 Orders Doctor KAMLESH [id number] 00:00:00 00:00:00 Only Unassigned, JACQUE 350.1.13.10 [place] [facility] 4.2.7.2.686 [id number] 2018-11-10 2018-11-10 Orders Doctor KAMLESH 1.2.840.114 [id number] 00:00:00 00:00:00 Only Unassigned, JACQUE 350.1.13.10 [place] [facility] 4.2.7.2.686 [id number] 009 2018-11-03 2018-11-03 Telephone [facility] 1.2.840.114 [id number] 00:00:00 00:00:00 Aguilar A [facility] 350.1.13.10 [place] 4.2.7.2.686 [facility] [id number] t [place] 189 2018-11-03 2018-11-03 Telephone [facility] 1.2.840.114 [id number] 00:00:00 00:00:00 [facility]ilar A [facility] 350.1.13.10 [place] 4.2.7.2.686 [facility] [id number] t [place] 189 2018-11-02 2018-11-02 Abstract [facility] [id number] 00:00:00 00:00:00 Aguilar A [facility] 350.1.13.10 [place] 4.2.7.2.686 [facility] [id number] t [place] 189 2018-11-02 2018-11-02 Case [facility] 1.2.840.114 [id number] 00:00:00 00:00:00 Management [facility] 350.1.13.10 [place] 4.2.7.2.686 [facility] [id number] t [place] 189 2018-11-02 2018-11-02 Committee [facility] 1.2.840.114 [id number] 00:00:00 00:00:00 Review Aguilar A MULTISPEC 350.1.13.10 [place] 4.2.7.2.686 CENTER [id number] [facility] 2018-11-02 2018-11-02 Abstract [facility] [id number] 00:00:00 00:00:00 Aguilar A [facility] 350.1.13.10 [place] 4.2.7.2.686 [facility] [id number] t [place] 189 2018-11-02 2018-11-02 Committee [facility] 1.2.840.114 [id number] 00:00:00 00:00:00 Review Aguilar A MULTISPEC 350.1.13.10 IAL[place] 4.2.7.2.686 CENTER [id number] [facility] 2018-11-02 2018-11-02 Abstract [facility] [id number] 00:00:00 00:00:00 Aguilar A Health 350.1.13.10 [place] 4.2.7.2.686 [facility] [id number] t [place] 189 2018-11-02 2018-11-02 Abstract [facility] [id number] 00:00:00 00:00:00 Aguilar A Health 350.1.13.10 [place] 4.2.7.2.686 [facility] [id number] [facility] 189 2018-11-02 2018-11-02 Case [facility] 1.2.840.114 [id number] 00:00:00 00:00:00 Management Agu[facility] A [facility] 350.1.13.10 [place] 4.2.7.2.686 [facility] [id number] [facility] 189 2018-10-28 2018-10-28 Telephone [facility] 1.2.840.114 [id number] 00:00:00 00:00:00 Aguilar A Health 350.1.13.10 [place] 4.2.7.2.686 [facility] [id number] [facility] 189 2018-10-28 2018-10-28 [facility] 1.2.840.114 [id number] 00:00:00 00:00:00 Aguilar A MULTISPEC 350.1.13.10 [place] 4.2.7.2.686 [place] [id number] [facility] [place] [facility] 2018-10-28 2018-10-28 Telephone [facility] 1.2.840.114 [id number] 00:00:00 00:00:00 Aguilar A Health 350.1.13.10 [place] 4.2.7.2.686 [facility] [id number] [facility] 189 2018-10-28 2018-10-28 [facility] 1.2.840.114 [id number] 00:00:00 00:00:00 Aguilar A MULTISPEC 350.1.13.10 IAL[place] 4.2.7.2.686 [place] [id number] [facility] [place] [facility] 2012-04-07 2012-04-07 Outpatient [facility]IE MHIE [id number] 15:40:31 15:40:14 2012-03-08 2012-03-08 Outpatient [facility] [id number] 13:29:27 13:29:12 2012-02-04 2012-02-04 Outpatient MHIE MHIE [id number] 11:20:09 11:19:53 2012-01-31 2012-01-31 Outpatient MHIE MHIE [id number] 19:30:42 19:30:26 2012-01-31 2012-01-31 Outpatient IE IE [id number] 16:34:08 16:33:53 2012-01-31 2012-01-31 Outpatient IE IE [id number] 14:49:27 14:49:11 Results Test Description Test Time Test Comments Results Result Comments Source Chemistry 2012-10-23 7.3 [facility] [place] nn 14:45:00 Chemistry 2012-10-23 178 [facility] [place] nn 14:45:00 Chemistry 2012-10-23 129 [facility] [place] nn 14:45:00 Chemistry 2012-10-23 40 [facility] [place] nn 14:45:00 Chemistry 2012-10-23 112 [facility] [place] nn 14:45:00 Chemistry 2012-10-23 141 MEQ/L [facility] [place] nn 14:45:00 Chemistry 2012-10-23 4.5 MEQ/L [facility] [place] nn 14:45:00 Chemistry 2012-10-23 6.4 [facility] [place] nn 14:45:00 Chemistry 2012-10-23 57 [facility] [place] nn 14:45:00 Chemistry 2012-10-23 14:45:00 Test Item Value Reference Range Interpretation Comme nts BUN/CREAT (test code = BUN/CREAT) 9 1 6-25 [facility] XgedtrdQdfflrbug7287-49-86 14:45:003.6[facility] 2012-10-23 14:45:009.0[facility] YixwknrVyykrczms0010-96-68 14:45:0021[facility] PgycdybDmmhpklsh2294-65-49 14:45:009[facility] InboznoLiqmulpmr9961-61-40 14:45:00 67[facility] FjxrojcLpsjorqomc5221-50-76 14:45:0013.2[facility]ann[facility] 2012-10-23 14:45:0041.5[facility] XqwyloqVzzxfjmfmm4011-33-61 14:45:42583 K/CMM Memorial KzmocgcIjsuqpigy5511-86-00 21:12:005.1[facility] 2012-06-04 21:12:95310Yaqedqlp CjcucucIwxaluuut1293-36-38 21:12:19186Judzbbax FpbgexuWvuylthbj2528-04-15 21:12:0037[facility] DwxhyehDjbdapjde7695-67-13 21:12:50251Epzqvtds QoynvknJgeqqtcln5749-95-81 21:12:40571 MEQ/LMemorial [place] Ltpiwstzv9819-61-28 21:12:004.6 MEQ/LMemorial AlbodmqSnclwgcqs8655-14-73 21:12:007.4[facility] SdohejtCcwwqcuiw1867-26-22 21:12:0053[facility] [place] Iabzvhklq7475-99-12 21:12:00 Test Item Value Reference Range Interpretation Comments BUN/CREAT (test code = BUN/CREAT) 7 09-08 Memorial WjfksmlCzdkqvkrx3985-69-98 21:12:002.2[facility] 2012-06-04 21:12:007.2[facility] QibdfchQlqpbhbjl6999-11-32 21:12:0024[facility] MzxwmzsZgvapvnfc2894-21-15 21:12:0027[facility] QasmtpkRskacwgyf8831-61-28 21:12:0066[facility] AtxyxngRlureszoc0229-78-51 21:12:005.1[facility] [place] Ybaronunu1141-10-70 21:12:03258Plpmnyue DyodwjdVdlrqoidc1106-56-57 21:12:52578 [facility] QwokilvThklbpivn9141-71-81 21:12:0037[facility] 2012-06-04 21:12:51027Dlpqhhjq AhyrfqoFcxbfumob2757-99-64 21:12:81011 MEQ/L Memorial ApizvckIhgorejpd1595-18-69 21:12:004.6 MEQ/L[facility] HermannChemistry 2012-06-04 21:12:007.4[facility] MteqiqtLxngovbqd2392-81-72 21:12:0053[facility] PbsjraxVdtkhhufd9244-59-17 21:12:00 Test Item Value Reference Range Interpretation Comments BUN/CREAT (test code = BUN/CREAT) 7 09-08 Memorial AovcikjBkautamar4301-29-75 21:12:002.2[facility] 2012-06-04 21:12:007.2[facility] SmusstkCxiujkpzu1926-04-99 21:12:0024[facility] SchahrmEjyuzommv6082-06-42 21:12:0027[facility] UninclpSflauiknm9505-47-57 21:12:0066[facility] MbwwzfdUmjkkubwyb5860-43-34 21:12:007.9[facility] [place] Aakfsqewvr2698-76-35 21:12:0023.7[facility] VkfzuopEqpodldcpy0088-12-46 21:12:00 289 K/CMMMemorial UaszuboWzqptmgcoa7862-21-23 21:12:007.9[facility] [place] Hpgrpzvrso9550-75-40 21:12:0023.7[facility]orial CwqqxttXxkwjdkcjt5081-59-63 21:12:00 289 K/CMMMemorial MdienyhAdnnrcdpd2350-65-61 20:28:006.9[facility] [place] Ffeztzapq8377-15-26 20:28:001.420[facility] OubvtutGenidsijo3007-57-90 20:28:07092 Memorial XagapmyJwquojuqm9821-59-43 20:28:39353Iywgadcw HermannChemistry 2011-11-12 20:28:0054[facility] XhggmngCklfvdmye0053-10-91 20:28:60647Bgbbonzt HwpqssvVawmmhhtb3829-95-43 20:28:63411 MEQ/LMemorial AopkeqeBjghwyrts6470-34-90 20:28:004.7 MEQ/LMemorial PncwbgfIissrdihj8696-79-78 20:28:004.9[facility] [place] Wpniwtywp4394-91-82 20:28:0063Memorial XticucgHwvjzemgq1410-57-53 20:28:00 Test Item Value Reference Range Interpretation Comments BUN/CREAT (test code = BUN/CREAT) 13 09-08 [facility] DwionjlVnnuvypft2118-15-54 20:28:001.8[facility]ann[facility] 2011-11-12 20:28:007.6[facility] ShjmadiQftvnfqpl3992-48-63 20:28:0017[facility] MxyfbktWloczagek4478-45-33 20:28:0014Mejasbir PeoplesHrbdkwiInatmvkty8595-20-96 20:28:0068Fermin Peoples
--- OUTSIDE RECORDS SUMMARY | 2019-09-03 19:14 | XMS REPORT | Summary of Care ---
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 Reason for Visit Reason Comments Evaluation Encounter Details Date Type Department Care Team Description 08/20/2019 Telephone [facility] Transplant- Lauren Moore MD Evaluation [facility] [address] [place], [place] [phone] [facility], [phone] Entr[place], [place] [phone] Allergies Active Allergy Reactions Severity Noted Date Comments Promethazine Hcl Anxiety 10/08/2016 "jumpy" documented as of this encounter (statuses as of 08/20/2019) Medications Medication Sig Dispensed Refills Start Date [...] as of this encounter (statuses as of 08/20/2019) Active Problems Problem Noted Date Obesity (BMI 30-39.9) 07/23/2018 documented as of this encounter (statuses as of 08/20/2019) Immunizations Name Administration Dates Next Due Hep B, Adol or Pedi Dosage 12/28/2012, 08/26/2012, 3, 06/19/2012 Influenza Virus Vaccine 11/27/2016, 12/05/2014, 11/15/2013, 11/20/2012, 07/08/2012 PPD (TB) 04/03/2015, 04/13/2014, 09/08/2013, 05/30/2012 Pneumococcal 13 Conjugate, PCV13 05/12/2015, 06/19/2012 (Prevnar 13) documented as of this encounter Social History Tobacco Use Types Packs/Day Years Used Date Never Smoker Smokeless Tobacco: Never Used Alcohol Use Drinks/Week oz/Week Comments Yes quit 4-5 years a go Sex Assigned at Date Recorded Not on [...] Cardiology Mariposa Crawford MD [address] [place] [phone] Health Maintenance Due Date Last Done Comments DTaP,Tdap,and Td Vaccines 1987 (1 - Tdap) INFLUENZA VACCINE (Season 11/16/2019 11/27/2016, 12/05/2014 , Ended) 11/15/2013, Additional history exists Depression Screening 02/03/2020 02/02/2019 PNEUMOCOCCAL 0-64 YEARS Aged Out 05/12/2015, 06/19/2012 N o longer eligible COMBINED SERIES based on patient 's age to complete this topic documented as of this encounter Results Not on filedocumented in this encounter Insurance Payer Benefit Plan / Subscriber ID Effective Phone Address T ype Group Dates MEDICARE MEDICARE PART xxxxxxxxxxx 2012-Pres [phone] Medicare A & B ent [id number] [place]DA SELF [phone] COMMERCIAL COMMERCIAL [id number] 2016-Pre HMO /PPO/POS NON-CONTRACT NON-CONTRACT sent GENERIC GENERIC documented as of this encounter
[2019-09-03] MEDS ORDERED: NA CHLORIDE 0.9% 500 ML ONE (20:45)
[2019-09-03 20:50] LABS: Absolute Lymphocytes (CBC) 1.4 K/uL (0.7-4.9); Basophils % 0.6 % (0-1.3); Hematocrit 42.1 % (39.6-49.0); MPV 8.2 fL (7.6-11.3); RBC Red Blood Cell Count 4.42 M/uL (4.33-5.43)
[2019-09-03 21:11] LABS: Potassium 4.6 mmol/L (3.5-5.1)
[2019-09-03] MEDS ORDERED: NA CHLORIDE 0.9% 250 ML ONE (21:27)
--- NOTE | 2019-09-03 22:24 | EDPHYS ---
Physician Documentation [facility] Name: Chase Chacon Jr Age: 44 yrs Sex: Male : 1975 Arrival Date: 09/03/2019 Time: 19:12 Bed 5 Private MD: ED Physician Chandan Becerril HPI: 09/03 06:32 This 44 yrs old Male presents to ER via Wheelchair with complaints of tw4 Dizziness. 06:32 The patient presents with generalized weakness, lightheadedness. Onset: The tw4 symptoms/episode began/occurred today. Context: occurred dialysis " I think they took too much fluid off". Modifying factors: The symptoms are alleviated by lying down, the symptoms are aggravated by movement of head, standing up. Associated signs and symptoms: The patient has no apparent associated signs or symptoms. Severity of symptoms: At their worst the symptoms were moderate in the emergency department the symptoms are unchanged. The patient has experienced a previous episode. Historical: - Allergies: 09/02 19:23 Phenergan; ll1 - PMHx: 19:23 Diabetes - NIDDM; Gastroparesis; Hypertension; Cataracts; Dialysis; ESRD; kidney ll1 disease; - Social history:: Patient/guardian denies using alcohol, street drugs, tobacco products. ROS: 09/03 06:32 Constitutional: Negative for fever, chills, and weight loss, Eyes: Negative for injury, tw4 pain, redness, and discharge, Cardiovascular: Negative for chest pain, palpitations, and edema, Respiratory: Negative for shortness of breath, cough, wheezing, and pleuritic chest pain, Abdomen/GI: Negative for abdominal pain, nausea, vomiting, diarrhea, and constipation, Back: Negative for injury and pain, MS/Extremity: Negative for injury and deformity, Skin: Negative for injury, rash, and discoloration. Neuro: Positive for dizziness, weakness, Negative for altered mental status, gait disturbance, headache, hearing loss, loss of consciousness, numbness, seizure activity, syncope, near syncope. Exam: 06:32 Constitutional: This is a well developed, well nourished patient who is awake, alert, tw4 and in no acute distress. Head/Face: Normocephalic, atraumatic. Chest/axilla: Normal chest wall appearance and motion. Nontender with no deformity. No lesions are appreciated. Cardiovascular: Regular rate and rhythm with a normal S1 and S2. No gallops, murmurs, or rubs. Normal PMI, no JVD. No pulse deficits. Respiratory: Lungs have equal breath sounds bilaterally, clear to auscultation and percussion. No rales, rhonchi or wheezes noted. No increased work of breathing, no retractions or nasal flaring. Abdomen/GI: Soft, non-tender, with normal bowel sounds. No distension or tympany. No guarding or rebound. No evidence of tenderness throughout. Back: No spinal tenderness. No costovertebral tenderness. Full range of motion. Skin: Warm, dry with normal turgor. Normal color with no rashes, no lesions, and no evidence of cellulitis. MS/ Extremity: Pulses equal, no cyanosis. Neurovascular intact. Full, normal range of motion. Neuro: Awake and alert, GCS 15, oriented to person, place, time, and situation. Cranial nerves II-XII grossly intact. Motor strength 5/5 in all extremities. Sensory grossly intact. Cerebellar exam normal. Normal gait. Vital Signs: 09/02 19:21 BP 75 / 42; Pulse 74; Resp 17; Temp 97.5; Pulse Ox 94% ; Pain 5/10; ll1 20:00 BP 100 / 75; Pulse 75; Resp 19; Temp 99(O); Pulse Ox 99% ; rr5 20:11 BP 110 / 73 RA Supine; Pulse 92; oe 20:13 BP 90 / 69 RA Sitting; Pulse 94; oe 20:15 BP 82 / 58 RA Standing; Pulse 108; oe 21:30 BP 130 / 81 Supine; Pulse 82; Resp 17; Pulse Ox 100% ; rr5 21:31 BP 111 / 76 RA Sitting; Pulse 81; Resp 17; Pulse Ox 98% ; rr5 21:32 BP 91 / 61 Standing; Pulse 87; Resp 15; Pulse Ox 99% ; rr5 22:20 BP 117 / 79; Pulse 85; Resp 19; Pulse Ox 99% ; rr5 22:40 BP 115 / 85; Pulse 80; Resp 17; Temp 98.7; Pulse Ox 99% ; rr5 MDM: 20:10 Patient medically screened. tw4 09/03 06:32 Differential diagnosis: cardiac arrhythmia, CVA, generalized weakness, hypovolemia, tw4 idiopathic dizziness, vertigo. Data reviewed: vital signs, nurses notes. Data reviewed: lab test result(s), CBC, electrolytes. Data interpreted: Pulse oximetry: Interpretation:. Test interpretation: by ED physician or midlevel provider: not applicable. Counseling: I had a detailed discussion with the patient and/or guardian regarding: the historical points, exam findings, and any diagnostic results supporting the discharge/admit diagnosis, lab results. Special discussion: I discussed with the patient/guardian in detail that at this point there is no indication for admission to the hospital. It is understood, however, that if the symptoms persist or worsen the patient needs to return immediately for re-evaluation. 09/02 20:33 Order name: CBC with Diff; Complete Time: 21:25 rv 09/02 21:25 Interpretation: Normal except: MCV 95.4; MN% 12.4; RDW 15.3. tw4 09/02 20:33 Order name: BMP; Complete Time: 21:25 rv 09/02 21:25 Interpretation: Normal except: GLUC 68; BUN 38; CRE 8.43; GFR 7. tw4 09/02 20:33 Order name: IV Saline Lock; Complete Time: 20:33 rv 09/02 20:47 Order name: Orthostatics; Complete Time: 20:47 rr5 Administered Medications: 09/02 20:46 Drug: NS 0.9% 500 ml Route: IV; Rate: bolus; Site: right forearm; rr5 21:15 Follow up: Response: No adverse reaction; IV Status: Completed infusion; IV Intake: rr5 500ml 21:36 Drug: NS 0.9% 250 ml Route: IV; Rate: bolus; Site: right forearm; rr5 22:23 Follow up: Response: No adverse reaction; IV Status: Completed infusion; IV Intake: rr5 250ml Disposition: 09/03/19 22:24 Discharged to Home. Impression: Orthostatic hypotension, Dehydration. - Condition is Stable. - Discharge Instructions: Dehydration, Adult, Hypotension, Orthostatic Hypotension. - Medication Reconciliation Form, Thank You Letter, Antibiotic Education, Prescription Opioid Use form. - Follow up: Private Physician; When: Upon discharge from the Emergency Department; Reason: Recheck today's complaints, Continuance of care, Re-evaluation by your physician. - Problem is new. - Symptoms have improved. Signatures: Dispatcher [employer] Chandan Cade MD MD tw4 Cullen Cagle RN RN rv Gregory Andrade RN RN rr5 Jacquelyn Milton RN RN ll1 Corrections: (The following items were deleted from the chart) 22:41 22:24 09/03/2019 22:24 Discharged to Home. Impression: Orthostatic hypotension; rr5 Dehydration. Condition is Stable. Forms are Medication Reconciliation Form, Thank You Letter, Antibiotic Education, Prescription Opioid Use. Follow up: Private Physician; When: Upon discharge from the Emergency Department; Reason: Recheck today's complaints, Continuance of care, Re-evaluation by your physician. Problem is new. Symptoms have improved. tw4
--- NOTE | 2019-09-03 22:24 | ER ---
Nurse's Notes [facility] Name: Chase Chacon Jr Age: 44 yrs Sex: Male : 1975 Arrival Date: 09/03/2019 Time: 19:12 Bed 5 Private MD: Diagnosis: Orthostatic hypotension;Dehydration Presentation: 09/02 19:21 Chief complaint: Patient states: Low BP past two weeks after dialysis. Near syncope ll1 events. States dialysis doctor is aware, but no adjustments have been made. Patient stated he stopped taking his BP meds due to this. Coronavirus screen: Proceed with normal triage. Patient denies a cough. Patient denies shortness of breath or difficulty breathing. Patient denies measured and/or subjective temperature greater than 100.4F prior to today's visit. Patient denies travel on a cruise ship or to a country the [facility] currently lists as an affected area. Patient denies contact with known and/or suspected case of COVID-19. Ebola Screen: Patient denies travel to an Ebola-affected area in the 21 days before illness onset. Initial Sepsis Screen: Does the patient meet any 2 criteria? Systolic BP < 90 mmHg. Risk Assessment: Do you want to hurt yourself or someone else? Patient reports no desire to harm self or others. Onset of symptoms was August 20, 2019. 19:21 Method Of Arrival: Wheelchair ll1 19:21 Acuity: LEON 2 ll1 Historical: - Allergies: 19:23 Phenergan; ll1 - PMHx: 19:23 Diabetes - NIDDM; Gastroparesis; Hypertension; Cataracts; Dialysis; ESRD; kidney ll1 disease; - Social history:: Patient/guardian denies using alcohol, street drugs, tobacco products. Screenin:59 Abuse screen: Denies threats or abuse. Denies injuries from another. Nutritional rr5 screening: No deficits noted. Tuberculosis screening: No symptoms or risk factors identified. Fall Risk Secondary diagnosis (15 points) dizziness. Total Cerda Fall Scale indicates No Risk (0-24 pts). Assessment: 20:01 General: Appears in no apparent distress. comfortable, Behavior is calm, cooperative, rr5 appropriate for age. Pain: Denies pain. Neuro: Level of Consciousness is awake, alert, obeys commands, Oriented to person, place, time, situation, Reports dizziness. Cardiovascular: Capillary refill < 3 seconds Patient's skin is warm and dry. Dialysis shunt: in the left arm, with palpable thrill, with auscultated bruit, with no erythema, with no edema, no bleeding noted. Respiratory: Airway is patent Respiratory effort is even, unlabored, Respiratory pattern is regular, symmetrical. GI: No signs and/or symptoms were reported involving the gastrointestinal system. : No signs and/or symptoms were reported regarding the genitourinary system. EENT: No signs and/or symptoms were reported regarding the EENT system. Derm: Skin is intact, is healthy with good turgor, Skin temperature is warm. Musculoskeletal: Circulation, motion, and sensation intact. Capillary refill < 3 seconds. 20:30 Reassessment: Patient appears in no apparent distress at this time. positive for rr5 orthostatic hypotension. ED provider aware with order made and carried out. 21:30 Reassessment: ED provider aware for the latest orthostatic V/S with order made and rr5 carried out. 22:22 Reassessment: Patient appears in no apparent distress at this time. Patient is alert, rr5 oriented x 3, equal unlabored respirations, skin warm/dry/pink. patient reported no dizziness when he stand up for 5 minutes. Patient states feeling better. Patient states symptoms have improved. 22:40 Reassessment: discharge instruction given and explained without complaints made. rr5 Vital Signs: 19:21 BP 75 / 42; Pulse 74; Resp 17; Temp 97.5; Pulse Ox 94% ; Pain 5/10; ll1 20:00 BP 100 / 75; Pulse 75; Resp 19; Temp 99(O); Pulse Ox 99% ; rr5 20:11 BP 110 / 73 RA Supine; Pulse 92; oe 20:13 BP 90 / 69 RA Sitting; Pulse 94; oe 20:15 BP 82 / 58 RA Standing; Pulse 108; oe 21:30 BP 130 / 81 Supine; Pulse 82; Resp 17; Pulse Ox 100% ; rr5 21:31 BP 111 / 76 RA Sitting; Pulse 81; Resp 17; Pulse Ox 98% ; rr5 21:32 BP 91 / 61 Standing; Pulse 87; Resp 15; Pulse Ox 99% ; rr5 22:20 BP 117 / 79; Pulse 85; Resp 19; Pulse Ox 99% ; rr5 22:40 BP 115 / 85; Pulse 80; Resp 17; Temp 98.7; Pulse Ox 99% ; rr5 ED Course: 19:12 Patient arrived in ED. es 19:23 Triage completed. ll1 19:23 Arm band placed on Patient placed in an exam room, on a stretcher. ll1 19:26 Chandan Becerril MD is Attending Physician. tw4 19:44 Gregory Andrade, RN is Primary Nurse. rr5 20:00 Patient has correct armband on for positive identification. Bed in low position. Call rr5 light in reach. Side rails up X2. Pulse ox on. NIBP on. 20:33 Inserted saline lock: 20 gauge in right forearm, using aseptic technique. Blood rv collected. 22:40 No provider procedures requiring assistance completed. IV discontinued, intact, rr5 bleeding controlled, No redness/swelling at site. Pressure dressing applied. Administered Medications: 20:46 Drug: NS 0.9% 500 ml Route: IV; Rate: bolus; Site: right forearm; rr5 21:15 Follow up: Response: No adverse reaction; IV Status: Completed infusion; IV Intake: rr5 500ml 21:36 Drug: NS 0.9% 250 ml Route: IV; Rate: bolus; Site: right forearm; rr5 22:23 Follow up: Response: No adverse reaction; IV Status: Completed infusion; IV Intake: rr5 250ml Intake: 21:15 IV: 500ml; Total: 500ml. rr5 22:23 IV: 250ml; Total: 750ml. rr5 Outcome: 22:24 Discharge ordered by MD. tw4 22:40 Discharged to home ambulatory. rr5 22:40 Condition: stable 22:40 Discharge instructions given to patient, Instructed on discharge instructions, follow up and referral plans. Demonstrated understanding of instructions, follow-up care. 22:41 Patient left the ED. rr5 Signatures: Lydia Ochoa Orlando oe Wadley, Terrence, MD MD tw4 Cullen Cagle RN RN rv Gregory Andrade, RN RN rr5 Jacquelyn Milton, JENNIE RN ll1 Corrections: (The following items were deleted from the chart) 19:33 19:21 Chief complaint: Patient states: Low BP past two weeks after dialysis. Near ll1 syncope events. ll1 20:23 20:11 BP 110 / 73 Supine; Pulse 92bpm; oe oe
[2019-09-03 23:11] VITALS: O2SAT 99
[2019-09-03 23:15] VITALS: BP 115/85; TEMP 98.7
== END 2019-09-03 22:41 | disposition home or self-care (01) ==
LOC: ER 19:09
DX: I95.1 Orthostatic hypotension (principal); E86.0 Dehydration; Z88.8 Allergy status to other drugs, medicaments and biological substances
CPT/HCPCS: 96365; 85025; 80048; 36415; 99284; J7030; J7040

== ENCOUNTER 2019-09-29 00:26 | Observation (INO) | payer OTHER ==
--- OUTSIDE RECORDS SUMMARY | 2019-09-29 00:29 | XMS REPORT | Clinical Summary ---
:1975 Author Organization [facility] Address [address] [place] [id number] Care Team Providers Name Role Phone Unavailable [...] Not on file Results Not on fileafter 09/28/2018 Insurance Payer Benefit Plan / Group Subscriber ID Type Phone A ddress MEDICARE MEDICARE A B xxxxxxxxxx Medicare [employer] xxxxxxxxxx Maps Contracted
--- OUTSIDE RECORDS SUMMARY | 2019-09-29 00:31 | XMS REPORT | Continuity of Care Document ---
:1975 Author Organization [employer] Care Team Providers Name Role Phone [employer] Unavailable Un available Problems Problem Status Onset Classification Date Comments Sourc e Date Reported GASTROPARESIS Active 09/08/19 Condition 09/07/2014 [facility] dical 15 Group ERECTILE Active 09/08/19 Condition 09/07/2014 [facility] D[facility]FUNCTION 15 Group PHYSICAL Active 09/08/19 Condition 09/07/2014 [facility] EXAMINATION 15 Group PHYSICAL EXAM Inactive 09/09/19 Condition 09/07/2014 [facility] dical 14 Group HYPERLIPIDEMIA - Active 09/01/19 Condition 09/07/2014 [facility] MIXED 14 Group PRE-OP CV EXAM Active 09/01/19 Condition 09/07/2014 [facility] [address] edical 14 Group RENAL FAILURE, Active 06/06/19 Condition 09/07/2014 [facility] [address] edical CHRONIC 13 Group ANEMIA IN CHRONIC Active 06/06/19 Condition 09/07/2014 [facility] KIDNEY DISEASE 13 Group DIAB W/O COMP Active 06/03/19 Condition 09/07/2014 [facility] dical TYPE II/UNS NOT 13 Grou p [...] Phy sicians End Stage Renal Active 04/07/2012 [facility] Medications Medication Details Route Status Patient Ordering Order Source Instructions Provider Date CALCIUM one cap tid Active Medical ACETATE 667 MG with meals 015 Group CAPS BD INSULIN use as Active [facility] SYRINGE directed 014 Group HALF-UNIT 31G X 5/16" 0.3 ML MISC BD PEN NEEDLE use as Active [facility] SHORT U/F 31G directed 014 Group X 8 MM MISC APIDRA 100 inject No [facility] UNIT/ML SOLN 10units in Longer 014 Group the am, Active 15units at lunch,and 10 units in the evening BD PEN NEEDLE use as Active [facility] SHORT U/F 31G directed 014 Group X 8 MM MISC NOVOLOG 100 inject Active [facility] UNIT/ML SOLN 10-15units 013 Group tid with meals sc NOVOLOG 100 inject Active [facility] UNIT/ML SOLN 10-15units 013 Group tid with meals sc ZITHROMAX Take 2 tab po No [facility] al Z-COLLEEN 250 MG qd for first Longer 013 Group TABS day then 1 Active tab po qd thereafter REGLAN 10 MG 1 po qd prn No [facility] siva TABS Longer 012 Group Active ACCU-CHEK Test 3 times Active [facility] FERNANDA STRP a day. 012 Group LANTUS 18 units at Active Medical SOLOSTAR 100 bedtime sc 012 Group UNIT/ML SOLN LIPITOR 20 MG 1 po qd Active Medical TABS 012 Group APIDRA 100 10 -15 units No [facility] UNIT/ML SOLN tid with Longer 012 Group meals Active REGLAN 10 MG prn No Medical TABS Longer 012 Group Active LISINOPRIL 30 1 po qd Active Medical MG TABS 012 Group LANTUS 18 units at Active Medical SOLOSTAR 100 bedtime sc 012 Group UNIT/ML SOLN LIPITOR 20 MG 1 po qd No Medical TABS Longer 012 Group Active LISINOPRIL 30 1 tablet Active [facility] l MG TABS orally twice 012 Group a week on Friday and Lipitor 10 MG (Active) Active [facility] Oral [...] Active Active [facility] Medications Medications Physicia ns Allergies, Adverse Reactions, Alerts Substance Category Reaction Severity Reaction Status Date Comments S ource type Reported No Known drug drug Active [facility] Drug allergy allergy Physicia ns Allergies Not Known [facility] Immunizations No Data Provided for This Section Results Order Name Results Value Reference Date Interpretation Comments Ashwini rce Range Chemistry HGBA1C 7.3 - 5.6 2012 [...] 133 - 450 K/CMM 2012 [facility] Hematology HGB 7.9 14.0 [...] p Temperature Oral (F) 98.3 F 09/07/2014 [facility] Height 66 09/07/2014 [facility] Gr[facility] p Weight 210 09/07/2014 [facility] p Respitory Rate 14 09/07/2014 [facility] Gr oup Weight 204 09/08/2013 [facility] Temperature Oral (F) 98.0 F 09/08/2013 [facility] Heart Rate 77 09/08/2013 Medical [...] Location Location Encounter Encounter Reason Attending ADM [facility] Stat us Source Details Type Number For Provider Date Date Visit AUDIT [id number] 01/30 Physician s AUDIT [id number] 01/30 Physician s AUDIT [id number] 01/30 Physician s AUDIT [id number] 02/03 Physician s AUDIT [id number] 03/08 Physician s AUDIT [id number] 04/07 [facility] [id number] Oralia Murray, 08/31 08/31 [facility] Visit [facility] [facility] [address] [facility] Office [id number] Lyric 09/08 09/08 [facility] [place] Visit 0420 MD Javier /2013 [facility] [address] [facility] Lab Report [id number] [facility] 02/23 02/23 [place] 0570 MD Javier /2013 [facility] [place] [facility] Office [id number] [place] 09/07 09/07 [facility] [place] Visit 1320 MD Lupillo /2014 [facility] [place] Procedures No Data Provided for This Section Assessment and Plan No Data Provided for This Section Plan of Care No Data Provided for This Section Social History Social History Date Source Never A Smoker 04/07/2012 [facility] (Active) Never Drank Alcohol (Active) Family History No Data Provided for This Section Advance Directives Order Name Results Value Date Source Advance Directives Advance Directives No Advance 04/07/2012 [facility] Directives available. Advance Directives Advance Directives No Advance 03/08/2012 [facility] Directives available. Advance Directives Advance Directives No Advance 02/04/2012 [facility] Directives available. Advance Directives Advance Directives No Advance 02/01/2012 [facility] Directives available. Advance Directives Advance Directives No Advance 01/31/2012 [facility] Directives available. Advance Directives Advance Directives No Advance 01/31/2012 [facility] Directives available. Functional Status No Data Provided for This Section
--- OUTSIDE RECORDS SUMMARY | 2019-09-29 00:33 | XMS REPORT | Continuity of Care Document ---
:1975 Author Organization [facility] t Address [address] [place] [address] Care Team Providers Name Role Phone Oscar SAINI, Lauren Bobo Attending Clinician Doctor Unassigned, Name Attending Clinician Unavailable Problems Condition Condition Condition Status Onset Resolution Last Treating Co mments Source Name Details Category Date Date Treatment Clinician Date ESRD (end ESRD (end Disease Active [facility] [...] 2014-09-07 Memoria SIS 09-07 10:20:15 l 00:00: [place] GASTROPARE 00 SIS Active 09/07/2014 [facility] ERECTILE Condition Active 2014-09-07 M emoria DYSFUNCTIO 09-07 10:20:15 l N ERECTILE 00:00: Simon n DYSFUNCTIO 00 N Active 09/07/2014 [facility] PHYSICAL Condition Active 2014-09-07 M emoria EXAMINATIO 09-07 10:20:15 l N PHYSICAL 00:00: Simon n EXAMINATIO 00 N Active 09/07/2014 [facility] HYPERLIPID Condition Active 2014-09-07 Memoria EMIA - 08-31 10:20:15 l MIXED 00:00: [place] HYPERLIPID 00 EMIA - MIXED Active 08/31/2013 [facility] PRE-OP CV Condition Active 2014-09-07 Memoria EXAM 08-31 10:20:15 l PRE-OP 00:00: [place] CV EXAM 00 Active 08/31/2013 [facility] RENAL Condition Active 2014-09-07 Mem oria FAILURE, 06-05 10:20:15 l CHRONIC RENAL 00:00: [place] FAILURE, 00 CHRONIC Active 06/05/2012 [facility] ANEMIA IN Condition Active 2014-09-07 Memoria CHRONIC 06-05 10:20:15 l KIDNEY ANEMIA 00:00: [place] DISEASE IN CHRONIC 00 KIDNEY DISEASE Active 06/05/2012 [facility] DIAB W/O Condition Active 2014-09-07 M emoria COMP TYPE 06-02 10:20:15 l II/UNS NOT DIAB W/O 00:00: Kimani key STATED COMP TYPE 00 UNCNTRL II/UNS NOT STATED UNCNTRL Active 06/02/2012 [facility] DIAB Condition Active 2014-09-07 Mem oria W/RENAL 06-02 10:20:15 l MANIFESTS DIAB 00:00: [place] TYPE W/RENAL 00 II/UNS NOT MANIFESTS UNCNTRL TYPE II/UNS NOT UNCNTRL Active 06/02/2012 [facility] COUGH Condition Active 2014-09-07 Mem oria 3- 10:20:15 l COUGH 00:00: [place] 00 Active 06/02/2012 [facility] [...] 4 Kidney Disease, Stage 4 Active 3 [facility] End Stage Problem Active 2012-04-07 Me moria Renal 21:40:14 l Disease End [place] Stage Renal Disease Active 3 [facility] History of Past Illness Condition Condition Condition Status Onset Resolution Last Treating Co mments Source Name Details Category Date Date Treatment Clinician Date PHYSICAL Condition Inactiv 2014-09-07 2014-09-07 Memoria EXAM e 09-08 10:20:15 10:20:15 l PHYSICAL 00:00: Simon n EXAM 00 Inactive 09/08/2013 [facility] Allergies, Adverse Reactions, Alerts Allergy Allergy Status Severity Reaction(s) Onset Inactive Treating Comm ents Source Name Type Date Date Clinician Klaus Juarez Active [facility] ty to 09-12 [facility] - adverse 00:00: Medical reaction 00 Center s No Known No Known Active Memori a Drug Drug l Allergie Allergie Simon n s s Not Not Active Memoria Known Known l [place] Social History Social Habit Start Date Stop Date Quantity Comments Source Sex Assigned At [facility] Social History 2012-04-07 2012-04-07 [facility] Shamika ayala 21:40:14 21:40:14 Smoking Status Start Date Stop Date Source Never smoker [facility] Medications Ordered Filled Start Stop Current Ordering Indication Dosage Frequency Signature Comments Components Source Medication Medication Date Date Medication? Clinician (SIG) Name Name CALCIUM Yes one cap Memoria ACETATE 667 6-24 tid with l MG CAPS 00:00: meals [place] 00 BD INSULIN Yes use as Memor ia SYRINGE 3-05 directed l HALF-UNIT 00:00: [place] 31G X 5/16" 00 0.3 ML MISC BD PEN Yes use as Memoria NEEDLE 3-04 directed l SHORT U/F 00:00: [place] 31G X 8 MM 00 MISC APIDRA 100 No inject Memor ia UNIT/ML 3-04 10units in l SOLN 00:00: the am, [place] 00 15units at lunch,and 10 units in the evening BD PEN Yes use as Memoria NEEDLE 3-04 directed l SHORT U/F 00:00: [place] 31G X 8 MM 00 MISC NOVOLOG 100 2012-03 Yes inject Mariano steven UNIT/ML 1-19 10-15units l SOLN 00:00: tid with [place] 00 meals sc NOVOLOG 100 2012-03 Yes inject Mariano steven UNIT/ML 1-19 10-15units l SOLN 00:00: tid with [place] 00 meals sc ZITHROMAX No Take 2 tab Me moria Z-COLLEEN 250 3-19 po qd for l MG TABS 00:00: first day [place] nn 00 then 1 tab po qd thereafter Lipitor 10 Yes (Active) Me moria MG Oral 1-22 l Tablet 21:40: [place] Lisinopril Yes (Active) Me moria 30 MG Oral 1-22 l Tablet 21:40: [place] Apidra 100 Yes (Active) Me moria UNIT/ML 1-22 l Injection 21:40: [place] Edward 14 Lantus 100 Yes (Active) Me moria UNIT/ML 1-22 l Subcutaneou 21:40: Simon lima Solution 14 Lasix 20 MG Yes (Active) M emoria Oral Tablet 1-22 l 21:40: She[place] Pinto Reglan 10 Yes (Active) Mem oria MG Oral 1-22 l Tablet 21:40: [place] No Active 2011-03 Yes No Active Mem oria Medications 1-17 Medication l 01:30: s [place] 26 REGLAN 10 No 1 po qd [...] prn Memoria MG TABS 9-21 l 00:00: LISINOPRIL Yes 1 po qd Mariano steven 30 MG TABS 9-21 l 00:00: LANTUS Yes 18 units Memoria SOLOSTAR 9-21 at bedtime l 100 UNIT/ML 00:00: sc Simon n SOLN 00 LIPITOR 20 No 1 po qd Mariano steven MG TABS 9-21 l 00:00: LISINOPRIL Yes 1 tablet Mem oria 30 [...] F [facility] [place] Height 2014-09-07 15:20:15 [facility] [place] Weight 2014-09-07 15:20:15 [facility] [place] Respitory Rate 2014-09-07 15:20:15 Memori al [place] Weight 2013-09-08 14:22:12 [facility] [place] Temperature Oral (F) 2013-09-08 14:22:12 98.0 F [facility] [place] Heart Rate 2013-09-08 14:22:12 [facility] [place] Systolic (mm Hg) 2013-09-08 14:22:12 Mariano rial [place] Diastolic (mm Hg) 2013-09-08 14:22:12 Mem orial [place] Systolic (mm Hg) 2013-08-31 15:43:31 Mariano rial [place] Diastolic (mm Hg) 2013-08-31 15:43:31 Mem orial [place] Heart Rate 2013-08-31 15:43:31 [facility] [place] Weight 2013-08-31 15:43:31 [facility] [place] Weight 2012-06-02 15:36:10 [facility] [place] Height 2012-06-02 15:36:10 [facility] [place] Temperature Oral (F) 2012-06-02 15:36:10 98.4 F [facility] [place] Heart Rate 2012-06-02 15:36:10 [facility] [place] Systolic (mm Hg) 2012-06-02 15:36:10 Mariano rial [place] Diastolic (mm Hg) 2012-06-02 15:36:10 Mem orial [place] Procedures This patient has no known procedures. Encounters Start End Encounter Admission Attending Care Care Encounter Source Date/Time Date/Time Type Type Clinicians Facility Department ID 2018-06-22 Inpatient [facility] [address] [facility] 07:53:49 2018-06-22 Outpatient [facility] [id number] [facility] 07:53:48 2019-08-20 2019-08-20 [address]2.840.114 [id number] 00:00:00 00:00:00 Lauren A MULTISPEC 350.1.13.10 [place]AL[place] 4.2.7.2.686 [place] [id number] [facility] 2019-06-01 2019-06-01 Letter [address].840.114 [id number] 00:00:00 00:00:00 (Out) Aguilar A MULTISPEC [id number] IAL[place] 4.2.7.2.686 [place] [id number] [facility] 2018-11-10 2018-11-[address]210.905 [id number] 09:30:00 23:59:00 Encounter Lauren Bobo [place] [id number] [place] 4.2.7.2.686 [place] [id number] 2018-11-10 2018-11-10 Orders Doctor KAMLESH [id number] 00:00:00 00:00:00 Only Unassigned, JACQUE 350.1.13.10 Juana Diaz [facility] 4.2.7.2.686 [id number] 2018-11-03 2018-11-03 Telephone [facility] 1.2.840.114 [id number] 00:00:00 00:00:00 Aguilar A Health [id number] [place] 4.2.7.2.686 [facility] [id number] t [place] 189 2018-11-02 2018-11-02 Abstract [facility] [id number] 00:00:00 00:00:00 Aguilar A Health 350.1.13.10 [place] 4.2.7.2.686 [facility] [id number] [facility] 189 2018-11-02 2018-11-02 Case [facility] 1.2.840.114 [id number] 00:00:00 00:00:00 Management Aguilar A [facility] 350.1.13.10 [place] 4.2.7.2.686 [employer] [id number] [facility] 189 2018-11-02 2018-11-02 Committee [facility] 1.2.840.114 [id number] 00:00:00 00:00:00 Review Aguilar A MULTISPEC 350.1.13.10 [place]AL[place] 4.2.7.2.686 [place] [id number] AND DIAZ [facility] 2018-11-02 2018-11-02 Abstract [facility] [id number] 00:00:00 00:00:00 Aguilar A Health 350.1.13.10 [place] 4.2.7.2.686 [employer] [id number] t [place] 189 2018-10-28 2018-10-28 Telephone [facility] 1.2.840.114 [id number] 00:00:00 00:00:00 Lauren Bobo Health 350.1.13.10 [place] [address].2.7.2.686 [facility] [phone] t Center 189 2018-10-28 2018-10-28 Telephone [facility] 1.2.840.114 [id number] 00:00:00 00:00:00 Lauren A MULTISPEC 350.1.13.10 [place]AL[place] 4.2.7.2.686 [place] [id number] [facility] 2012-04-07 2012-04-07 Outpatient [facility] [id number] 15:40:31 15:40:14 2012-03-08 2012-03-08 Outpatient [facility]IE [facility] [id number] 13:29:27 13:29:12 2012-02-04 2012-02-04 Outpatient [facility]IE [facility]IE [id number] 11:20:09 11:19:53 2012-01-31 2012-01-31 Outpatient MHIE MHIE [id number] 19:30:42 19:30:26 2012-01-31 2012-01-31 Outpatient MHIE MHIE [id number] 16:34:08 16:33:53 2012-01-31 2012-01-31 Outpatient MHIE MHIE [id number] 14:49:27 14:49:11 Results Test Description Test Time [...] code = BUN/CREAT) 9 1 6-25 [facility] PaypzdkXuypictad5646-52-21 14:45:003.6[facility] 2012-10-23 14:45:009.0[facility] DgvrbnzAvxqsvdbh1056-48-97 14:45:0021[facility] UeiraopNvibukgvg4533-23-24 14:45:009[facility] QqawrroYrnwywrtw7844-80-74 14:45:00 67[facility] LobakgpRpostzzbfv0868-66-99 14:45:0013.2[facility] 2012-10-23 14:45:0041.5[facility] JicmcyoFlaxloeftt7343-50-40 14:45:75990 /[facility] Memorial ZpslczqXegmfughy8139-48-93 21:12:005.1[facility] 2012-06-04 21:12:63843Wqiikapm PbxncoxYisbcetvy9930-03-27 21:12:78212Teztbdjt JorjffcNiqgsghum8907-34-62 21:12:0037[facility] TldiaiqVhoxnbeka4986-72-99 21:12:61406Wgiqcclk WnjjtprZpdwfbcfv1209-51-70 21:12:67992 MEQ/L[facility] [place] Qjbrhksll6525-12-69 21:12:004.6 MEQ/LMemorial HwzuaegSrodwkupg5566-19-94 21:12:007.4[facility] YjkcdghPjcyhornr4674-12-51 21:12:0053[facility] [place] Arbtmadgs0762-30-87 21:12:00 Test Item Value Reference Range Interpretation Comments BUN/CREAT (test code = BUN/CREAT) 7 1 - [facility] UaftflwHcvgcnnpq1510-02-88 21:12:002.2[facility] 2012-06-04 21:12:007.2[facility] YwudxfxUoyfhmeof6209-75-69 21:12:0024[facility] UpwvwfdDiyjokssf0077-01-44 21:12:0027[facility] XvlfwjbVqgqursxw6902-23-55 21:12:0066[facility] UstinyaOzfyjagab6971-34-89 21:12:005.1[facility] [place] Zkcqauvls2581-77-02 21:12:58367Qtwghejc UxapudsMxsgkyxnw3103-49-29 21:12:82021 [facility] FipnfseRcoihfsny5979-62-31 21:12:0037[facility] 2012-06-04 21:12:50804Jtethyrd FdpbkacTklrfgiaa9628-53-92 21:12:04645 MEQ/L Memorial TmpennuRvzkfihll2070-15-88 21:12:004.6 ME[facility]/L[facility] 2012-06-04 21:12:007.4[facility] LzoslozXdetdnxnv7682-31-88 21:12:0053[facility] ErhtagfXylwabegk1465-99-10 21:12:00 Test Item Value Reference Range Interpretation Comments BUN/CREAT (test code = BUN/CREAT) 7 1 09-08 Memorial JlxnedcKmihvofbe3916-46-07 21:12:002.2[facility] 2012-06-04 21:12:007.2[facility] EtlpujxFcarwsphw1725-23-27 21:12:0024[facility] VnlngbgVecpnzsnf4963-25-23 21:12:0027[facility] TeuserqYewbvffqk0113-87-98 21:12:0066[facility] EteeuwbAyzhbepejp6503-13-59 21:12:007.9[facility] [place] Zattqtmaap4276-94-64 21:12:0023.7[facility] MysraiyFlvpgiillb9787-09-14 21:12:00 289 K/CMMMemorial FqtuwpyEwwapvhppa7735-71-23 21:12:007.9[facility] [place] Jnhalitlpz4265-26-89 21:12:0023.7[facility] XjwxlfmFchrhhhwhe1703-62-06 21:12:00 289 K/CMMMemorial LazzhyqXxcvtdvnk6419-16-54 20:28:006.9[facility] [place] Kireqymoc6212-24-86 20:28:001.420[facility] HshmwnsGqpyxodbo6189-08-12 20:28:10780 Memorial FmrbpklWcanmsjnd6458-17-34 20:28:60499Fqqcwezi [facility]Chem[facility] 2011-11-12 20:28:0054[facility] AkvbxcoHpvsbyoxk6247-72-61 20:28:94963Hsufwrmh VnaqjhhQqxzgtebi7208-77-15 20:28:46006 MEQ/LMemorial YvtunjbEcolxsmxb1052-80-88 20:28:004.7 MEQ/LMemorial GqikhibAsqvkngzw0013-27-07 20:28:004.9[facility] [place] Reveiwzur3668-46-70 20:28:0063[facility] GmvuugmGcnnoygrt6930-19-61 20:28:00 Test Item Value Reference Range Interpretation Comments BUN/CREAT (test code = BUN/CREAT) 13 1 09-08 [facility] WthyrhtPwubizvrj0305-82-71 20:28:001.8[facility] 2011-11-12 20:28:007.6[facility] SwauymsYrcdevprn8304-36-77 20:28:0017[facility] KmclrmmSiwjqdwzv5126-82-75 20:28:0014Mem[facility] QxrcvgcTxtqcggdv7305-66-57 20:28:0068[facility] [place]
[2019-09-29] MEDS ORDERED: MORPHINE 4 MG/ML SYR ONE (00:52)
[2019-09-29] MEDS ORDERED: ONDANSETRON 4 MG/2 ML VIAL ONE ×2 (00:52→01:15)
[2019-09-29 00:59] LABS: Protime INR 0.97
[2019-09-29 01:00] LABS: Basophils % 0.5 % (0-1.3); Hematocrit 32.1 % (39.6-49.0); Lymphocytes % 15.9 % (15.3-44.8); MPV 8.7 fL (7.6-11.3); RBC Red Blood Cell Count 3.48 M/uL (4.33-5.43)
[2019-09-29] MEDS ORDERED: ASPIRIN 81 MG CHEWABLE TABLET ONE (01:01)
[2019-09-29 01:34] LABS: ALT/SGPT 23 U/L (12-78); AST/SGOT 14 U/L (15-37); Albumin 3.3 g/dL (3.4-5.0); Alkaline Phosphatase 113 U/L (45-117); BUN Blood Urea Nitrogen 81 mg/dL (7-18); Bicarbonate 27 mmol/L (21-32); Bilirubin Direct 0.1 mg/dL (0-0.2); Bilirubin Total 0.4 mg/dL (0.2-1.0); Glucose Level 193 mg/dL (74-106); Magnesium 2.1 mg/dL (1.8-2.4); NT PRO-BNP 14271 pg/mL (<125); Potassium 4.7 mmol/L (3.5-5.1); Sodium Level 140 mmol/L (136-145); Troponin (Emerg Dept Use Only) < 0.02 ng/mL (0.0-0.045)
[2019-09-29] MEDS ORDERED: ACETAMINOPHEN 500 MG TAB PO PRN (02:20)
--- NOTE | 2019-09-29 02:22 | ER ---
Nurse's Notes [facility] Name: Chase Chacon Jr Age: 44 yrs Sex: Male : 1975 Arrival Date: 09/29/2019 Time: 00:27 Bed 14 Private MD: Diagnosis: Chest pain, unspecified Presentation: 09/28 00:30 Chief complaint: Patient states: Chest pain that began an hour ago; holding mid lp1 anterior left upper chest; patient grunting in pain during triage. 00:30 Coronavirus screen: Patient denies a cough. Patient denies shortness of breath or lp1 difficulty breathing. Patient denies measured and/or subjective temperature greater than 100.4F prior to today's visit. Patient denies travel on a cruise ship or to a country the [facility] currently lists as an affected area. Patient denies contact with known and/or suspected case of COVID-19. Ebola Screen: No symptoms or risks identified at this time. Initial Sepsis Screen: Does the patient meet any 2 criteria? No. Patient's initial sepsis screen is negative. Does the patient have a suspected source of infection? No. Patient's initial sepsis screen is negative. Risk Assessment: Do you want to hurt yourself or someone else? Patient reports no desire to harm self or others. Onset of symptoms was September 28, 2019 at 23:30. 00:30 Method Of Arrival: Wheelchair lp1 00:30 Acuity: LEON 3 lp1 Historical: - Allergies: 00:53 Phenergan; lp1 - Home Meds: 00:53 alprazolam 0.5 mg Oral Tb24 1 tab once daily [Active]; calcium acetate 667 mg Oral cap lp1 3 caps 3 times per day [Active]; nifedipine 90 mg Oral tr24 twice a day [Active]; Novolog Sub-Q 10 10 UNITS AM, 15 UNITS LUNCH AND 10 UNITS AT NIGHT [Active]; ramipril 10 mg Oral cap at bedtime [Active]; ropinirole 1 mg Oral tab at bedtime as needed for Restless Legs Syndrome [Active]; ropinirole 1 mg Oral tab nightly [Active]; tizanidine 2 mg Oral tab twice a day [Active]; tizanidine 2 mg Oral tab twice a day [Active]; trazodone 100 mg Oral tab nightly [Active]; - PMHx: 00:53 Cataracts; Diabetes - NIDDM; Dialysis; M/W/F; ESRD; Gastroparesis; Hypertension; kidney lp1 disease; - PSHx: 00:53 Left arm fistula; lp1 - Immunization history:: Adult Immunizations up to date. - Social history:: Smoking status: Patient denies any tobacco usage or history of. Screenin:30 Fall Risk None identified. jb4 00:53 Abuse screen: Denies threats or abuse. Denies injuries from another. Nutritional lp1 screening: No deficits noted. Tuberculosis screening: No symptoms or risk factors identified. Assessment: 00:30 General: Appears in no apparent distress. uncomfortable, Behavior is calm, cooperative, jb4 appropriate for age. Pain: Complains of pain in anterior aspect of left upper chest Pain does not radiate. Pain currently is 10 out of 10 on a pain scale. Quality of pain is described as crushing, pressure, Pain began 1 hour ago. Is continuous. Neuro: Level of Consciousness is awake, alert, obeys commands, Oriented to person, place, time, situation. Cardiovascular: Patient's skin is warm and dry. Rhythm is sinus rhythm. Respiratory: Airway is patent Respiratory effort is even, unlabored, Respiratory pattern is regular, symmetrical. GI: Reports nausea. : No signs and/or symptoms were reported regarding the genitourinary system. EENT: No signs and/or symptoms were reported regarding the EENT system. Derm: Skin is intact, Skin is pink, warm \T\ dry. Musculoskeletal: Circulation, motion, and sensation intact. Range of motion: intact in all extremities. 01:15 Reassessment: Patient appears in no apparent distress at this time. Patient and/or jb4 family updated on plan of care and expected duration. Pain level reassessed. Patient is alert, oriented x 3, equal unlabored respirations, skin warm/dry/pink. PT vomited, provider notified, see MAR for orders. PT reports pain is now at 3/10 reports that the pain was more of a throbbing sensation that would come and go. Patient states feeling better. Patient states symptoms have improved. 02:44 Reassessment: Patient appears in no apparent distress at this time. Patient and/or jb4 family updated on plan of care and expected duration. Pain level reassessed. Patient is alert, oriented x 3, equal unlabored respirations, skin warm/dry/pink. Patient states feeling better. 03:03 Reassessment: PT transferred to ICU bed 2. jb4 Vital Signs: 00:30 BP 204 / 91; Pulse 93; Resp 18; Pulse Ox 96% on R/A; Weight 90.72 kg; Height 5 ft. 6 lp1 in. (167.64 cm); Pain 8/10; 00:30 Temp 99.1(TE); jb4 01:30 BP 183 / 97; Pulse 89; Resp 16; Pulse Ox 95% on R/A; Pain 3/10; jb4 02:30 BP 178 / 94; Pulse 81; Resp 16; Pulse Ox 92% on R/A; jb4 00:30 Body Mass Index 32.28 (90.72 kg, 167.64 cm) lp1 ED Course: 00:27 Patient arrived in ED. cf2 00:32 Refugio Bobby NP is PHCP. pm1 00:32 Nader Aponte MD is Attending Physician. pm1 00:45 Inserted saline lock: 20 gauge in right forearm, using aseptic technique. Blood lp1 collected. 00:50 Jimmy Guzman, JENNIE is Primary Nurse. jb4 00:51 Triage completed. lp1 00:51 Arm band placed on. lp1 00:53 Patient maintains SpO2 saturation greater than 95% on room air. lp1 00:53 Patient has correct armband on for positive identification. surveillance monitor on. Pulse lp1 ox on. NIBP on. 01:29 XRAY Chest (1 view) In Process Unspecified. EDMS 02:21 Yue Barrera MD is Hospitalizing Provider. pm1 03:04 No provider procedures requiring assistance completed. Patient admitted, IV remains in jb4 place. Administered Medications: 00:45 Drug: Zofran (Ondansetron) 4 mg Route: IVP; Site: right antecubital; jb4 01:15 Follow up: Response: No adverse reaction; Nausea unchanged jb4 00:48 Drug: morphine 4 mg {Note: Rass score 0.} Route: IVP; Site: right antecubital; jb4 01:20 Follow up: Response: No adverse reaction; Pain is decreased; RASS: Alert and Calm (0) jb4 00:56 Drug: Aspirin Chewable Tablet 324 mg Route: PO; jb4 01:37 Follow up: Response: No adverse reaction jb4 01:20 Drug: Zofran (Ondansetron) 4 mg Route: IVP; Site: right antecubital; jb4 01:37 Follow up: Response: No adverse reaction; Nausea is decreased; Vomiting decreased jb4 Outcome: 02:22 Decision to Hospitalize by Provider. pm1 03:04 Admitted to ICU accompanied by nurse, via wheelchair, room ICU 2, with chart, Report jb4 called to JENNIE Padilla 03:04 Condition: stable 03:04 Discharge instructions given to patient, Instructed on the need for admit, Demonstrated understanding of instructions. 03:04 Patient left the ED. jb4 Signatures: Dispatcher [employer] EDMS Sahara Mondragon RN RN lp1 Refugio Bobby, [employer] MANAG[employer]OCIATE pm1 Jimmy Guzman RN RN jb4 Damaso Lechuga cf2
--- NOTE | 2019-09-29 02:22 | EDPHYS ---
Physician Documentation [facility] Name: Chase Chacon Jr Age: 44 yrs Sex: Male : 1975 Arrival Date: 09/29/2019 Time: 00:27 Bed 14 Private MD: ED Physician Naedr Aponte HPI: 09/28 00:39 This 44 yrs old Male presents to ER via Unassigned with complaints of Chest pm1 Pain. 00:39 The patient or guardian reports chest pain that is located primarily in the mid-sternal pm1 area. Onset: at 23:00. The pain does not radiate. Associated signs and symptoms: Pertinent positives: nausea, vomiting, Pertinent negatives: abdominal pain, cough, diaphoresis, dizziness, headache, shortness of breath. The chest pain is described as burning. Duration: The patient or guardian reports a single episode, that is still ongoing. Modifying factors: The symptoms are alleviated by nothing. the symptoms are aggravated by nothing. Severity of pain: in the emergency department the pain is unchanged. The patient has not experienced similar symptoms in the past. Historical: - Allergies: 00:53 Phenergan; lp1 - Home Meds: 00:53 alprazolam 0.5 mg Oral Tb24 1 tab once daily [Active]; calcium acetate 667 mg Oral cap lp1 3 caps 3 times per day [Active]; nifedipine 90 mg Oral tr24 twice a day [Active]; Novolog Sub-Q 10 10 UNITS AM, 15 UNITS LUNCH AND 10 UNITS AT NIGHT [Active]; ramipril 10 mg Oral cap at bedtime [Active]; ropinirole 1 mg Oral tab at bedtime as needed for Restless Legs Syndrome [Active]; ropinirole 1 mg Oral tab nightly [Active]; tizanidine 2 mg Oral tab twice a day [Active]; tizanidine 2 mg Oral tab twice a day [Active]; trazodone 100 mg Oral tab nightly [Active]; - PMHx: 00:53 Cataracts; Diabetes - NIDDM; Dialysis; M/W/F; ESRD; Gastroparesis; Hypertension; kidney lp1 disease; - PSHx: 00:53 Left arm fistula; lp1 - Immunization history:: Adult Immunizations up to date. - Social history:: Smoking status: Patient denies any tobacco usage or history of. ROS: 00:41 Constitutional: Negative for fever, chills, and weight loss, Eyes: Negative for injury, pm1 pain, redness, and discharge, ENT: Negative for injury, pain, and discharge, Neck: Negative for injury, pain, and swelling. 00:41 Respiratory: Negative for shortness of breath, cough, wheezing, and pleuritic chest pain. 00:41 Back: Negative for injury and pain, : Negative for injury, bleeding, discharge, and swelling, MS/Extremity: Negative for injury and deformity, Skin: Negative for injury, rash, and discoloration, Neuro: Negative for headache, weakness, numbness, tingling, and seizure. 00:41 Cardiovascular: Positive for chest pain, Negative for edema, palpitations. 00:41 Abdomen/GI: Positive for nausea and vomiting, Negative for abdominal pain, diarrhea, constipation. Exam: 00:45 Constitutional: This is a well developed, well nourished patient who is awake, alert, pm1 and in no acute distress. Head/Face: Normocephalic, atraumatic. Chest/axilla: Normal chest wall appearance and motion. Nontender with no deformity. No lesions are appreciated. 00:45 Back: No spinal tenderness. No costovertebral tenderness. Full range of motion. Skin: Warm, dry with normal turgor. Normal color with no rashes, no lesions, and no evidence of cellulitis. MS/ Extremity: Pulses equal, no cyanosis. Neurovascular intact. Full, normal range of motion. 00:45 Cardiovascular: Exam negative for acute changes, Rate: normal, Rhythm: regular, Pulses: no pulse deficits are appreciated. 00:45 Respiratory: Exam negative for acute changes, respiratory distress, shortness of breath. 00:45 Abdomen/GI: Exam negative for acute changes, Inspection: abdomen appears normal, Palpation: abdomen is soft and non-tender, in all quadrants, mass, is not appreciated, rebound tenderness, is not appreciated. 00:45 Neuro: Exam negative for acute changes, Orientation: is normal, Mentation: is normal, Motor: is normal, moves all fours, Sensation: is normal, no obvious gross deficits. Vital Signs: 00:30 BP 204 / 91; Pulse 93; Resp 18; Pulse Ox 96% on R/A; Weight 90.72 kg; Height 5 ft. 6 lp1 in. (167.64 cm); Pain 8/10; 00:30 Temp 99.1(TE); jb4 01:30 BP 183 / 97; Pulse 89; Resp 16; Pulse Ox 95% on R/A; Pain 3/10; jb4 02:30 BP 178 / 94; Pulse 81; Resp 16; Pulse Ox 92% on R/A; jb4 00:30 Body Mass Index 32.28 (90.72 kg, 167.64 cm) lp1 MDM: 00:32 Patient medically screened. pm1 02:21 Data reviewed: vital signs. pm1 02:21 Physician consultation: Yue Barrera MD was called at 02:21, was contacted at 02:21, pm1 regarding admission, patient's condition, and will see patient. 09/28 00:34 Order name: Basic Metabolic Panel pm1 09/28 00:34 Order name: CBC with Diff; Complete Time: 01:06 pm1 09/28 00:34 Order name: LFT's; Complete Time: 01:53 pm09/28 00:34 Order name: Magnesium; Complete Time: 01:53 pm09/28 00:34 Order name: NT PRO-BNP; Complete Time: 01:53 pm09/28 00:34 Order name: PT-INR; Complete Time: 01:06 pm09/28 00:34 Order name: Troponin (emerg Dept Use Only); Complete Time: 01:53 pm1 09/28 00:34 Order name: XRAY Chest (1 view) pm1 09/28 00:35 Order name: Basic Metabolic Panel; Complete Time: 01:53 EDMS 09/28 02:24 Order name: Lipid Profile EDUT 09/28 02:24 Order name: Lipid Profile EDUT 09/28 02:24 Order name: Troponin I EDUT 09/28 02:24 Order name: Troponin I EDUT 09/28 02:24 Order name: Troponin I EDUT 09/28 00:34 Order name: EKG; Complete Time: 00:36 pm09/28 00:34 Order name: Cardiac monitoring; Complete Time: 00:54 pm1 09/28 00:34 Order name: EKG - Nurse/Tech; Complete Time: 00:53 pm09/28 00:34 Order name: IV Saline Lock; Complete Time: 00:53 pm1 09/28 00:34 Order name: Labs collected and sent; Complete Time: 00:53 pm1 09/28 00:34 Order name: O2 Per Protocol; Complete Time: 00:53 pm1 09/28 00:34 Order name: O2 Sat Monitoring; Complete Time: 00:53 pm1 09/28 02:24 Order name: CONS Physician Consult EDMS 09/28 02:24 Order name: CONS Physician Consult EDMS 09/28 02:24 Order name: Renal EDMS 09/28 02:24 Order name: Echo with Doppler EDMS 09/28 02:24 Order name: EKG Electrocardiogram EDMS Administered Medications: 00:45 Drug: Zofran (Ondansetron) 4 mg Route: IVP; Site: right antecubital; jb4 01:15 Follow up: Response: No adverse reaction; Nausea unchanged jb4 00:48 Drug: morphine 4 mg {Note: Rass score 0.} Route: IVP; Site: right antecubital; jb4 01:20 Follow up: Response: No adverse reaction; Pain is decreased; RASS: Alert and Calm (0) jb4 00:56 Drug: Aspirin Chewable Tablet 324 mg Route: PO; jb4 01:37 Follow up: Response: No adverse reaction jb4 01:20 Drug: Zofran (Ondansetron) 4 mg Route: IVP; Site: right antecubital; jb4 01:37 Follow up: Response: No adverse reaction; Nausea is decreased; Vomiting decreased jb4 Disposition: 07:01 Co-signature as Attending Physician, Nader Aponte MD. [email or web address] Disposition: 09/29/19 02:22 Hospitalization ordered by Yue Barrera for Observation. Preliminary diagnosis is Chest pain, unspecified. - Bed requested for Intensive Care Unit. - Status is Observation. jb4 - Condition is Stable. - Problem is new. - Symptoms have improved. Signatures: Dispatcher [employer] EDUT Sahara Mondragon RN RN lp1 Lina Lawrence RN RN cg Marinas, Patrick, MAYE ORGAN BUILDER pm1 Jimmy Guzman RN RN jb4 Nader Aponte MD MD [email or web address] Corrections: (The following items were deleted from the chart) 00:54 00:39 Onset: 1 hour(s) ago, pm1 pm1 02:45 02:22 Hospitalization Ordered by Yue Barrera MD for Observation. Preliminary cg diagnosis is Chest pain, unspecified. Bed requested for Telemetry/MedSurg (observation). Status is Observation. Condition is Stable. Problem is new. Symptoms have improved. pm1 03:04 02:45 09/29/2019 02:22 Hospitalization Ordered by Yue Barrera MD for Observation. jb4 Preliminary diagnosis is Chest pain, unspecified. Bed requested for Intensive Care Unit. Status is Observation. Condition is Stable. Problem is new. Symptoms have improved. cg
[2019-09-29] MEDS: METOPROLOL TAR 50 MG TAB PO SCH ×3 (03:26→21:00)
[2019-09-29 04:35] VITALS: BMI 32.9
[2019-09-29] MEDS: MORPHINE 4 MG/ML SYR IV PRN ×2 (06:32→07:55)
[2019-09-29 06:55] LABS: HDL Cholesterol 46 mg/dL (40-60); LDL Cholesterol, Calculated 78 (<130); Troponin I < 0.02 ng/mL (0.0-0.045)
--- NOTE | 2019-09-29 07:45 | EKG ---
Test Date: 2019-09-29 Test Time: 00:39:52 Senior Project Controls Specialist: HARRIETT MEASUREMENT RESULTS: Intervals: Rate: 93 ID: [id number] QRSD: 80 QT: 398 QTc: 494 [place]: P: 24 ID: [id number] QRS: -11 T: 67 INTERPRETIVE STATEMENTS: Normal sinus rhythm Prolonged QT Abnormal ECG Compared to ECG 04/21/2019 10:17:56 Prolonged QT interval now present Electronically Signed On 09-29-19 07:44:22 CDT by Jules Yadav
--- NOTE | 2019-09-29 08:11 | P.HP ---
Certification for Inpatient Patient admitted to: Observation With expected LOS: <2 Midnights Patient will require the following post-hospital care: None Practitioner: I am a practitioner with admitting privileges, knowledge of patient current condition, hospital course, and medical plan of care. Services: Services provided to patient in accordance with Admission requirements found in Title 42 Section 412.3 of the Code of Federal Regulations Patient History Date of Service: 09/29/19 Reason for admission: Chest pain rule out acute coronary syndrome History of Present Illness: Patient is a 44-year-old gentleman who came to the hospital with chest discomfort. Pain was mainly in the sternal region. Patient says is deepened not reproducible. He has seen a rubber block layer-Dr. Crawford-in the past and he states he thinks he has had a stress test. He came to the hospital because his chest pain was not improving. He has a history of end-stage renal disease and is on hemodialysis. He has been compliant with his dialysis. He came into the emergency room for further evaluation and in the ER his troponins and EKG were unremarkable. At this time, he will be admitted to the hospital for observation. Will do serial troponins, and we will also do EKGs. Will admit the patient for observation at this time with Cardiology and Nephrology consultation. Allergies No Known Allergies Allergy (Verified 09/29/19 04:11) Home Medications: ALPRAZolam [Alprazolam] 1 mg PO DAILY 09/29/19 Amitriptyline [Elavil] 50 mg PO BEDTIME 09/29/19 Amlodipine Besylate [Norvasc] 10 mg PO DAILY 09/29/19 Atorvastatin Calcium 40 mg PO BEDTIME 09/29/19 Doxazosin [Cardura] 4 mg PO BID 09/29/19 Erythromycin Base [Erythromycin] 250 mg PO BID 09/29/19 Insulin Aspart [Novolog] 20 unit SQ TID 09/29/19 Insulin Glargine,Hum.rec.anlog [Basaglar Kwikpen U-100] 20 unit SQ BEDTIME 09/29/19 Ondansetron HCl [Zofran] 4 mg PO Q8H PRN 09/29/19 Sevelamer Carbonate [Renvela] 3 tab PO TIDWM 09/29/19 Sildenafil Citrate 50 mg PO PRN PRN 09/29/19 - Past Medical/Surgical History Has patient received pneumonia vaccine in the past: Yes Diabetic: Yes -: Diabetes mellitus type 2, insulin dependent -: Hypertension -: GERD -: Diabetic gastroparesis -: End stage renal disease on hemodialysis -: Cataract surgery -: Laser for Retinal Detachment -: HD fistula surgery Psychosocial/ Personal History: Patient is . He has no children. - Family History Father Medical History: Diabetes, Kidney disease - Social History Smoking Status: Never smoker Alcohol use: Yes CD- Drugs: No Caffeine use: No Place of Residence: Home Review of Systems 10-point ROS is otherwise unremarkable Physical Examination - Vital Signs Temperature: 97.8 F Blood Pressure: 189/89 Pulse: 83 Respirations: 16 Pulse Ox (%): 96 - Physical Exam General: Alert, In no apparent distress, Oriented x3 HEENT: Atraumatic, PERRLA, Mucous membr. moist/pink, EOMI, Sclerae nonicteric Neck: Supple, 2+ carotid pulse no bruit, No LAD, Without JVD or thyroid abnormality Respiratory: Clear to auscultation bilaterally, Normal air movement Cardiovascular: Regular rate/rhythm, Normal S1 S2, Systolic murmur Gastrointestinal: Normal bowel sounds, Soft and benign, Non-distended, No tenderness Musculoskeletal: No clubbing, No swelling, No tenderness Integumentary: No rashes Neurological: Normal gait, Normal speech, Normal strength at 5/5 x4 extr, Normal tone, Sensation intact, Cranial nerves 3-12 intact, Normal affect Lymphatics: No axilla or inguinal lymphadenopathy - Studies Laboratory Data (last 24 hrs) 09/29/19 00:45: PT 11.4, INR 0.97 09/29/19 00:45: WBC 6.4, Hgb 11.1 L, Hct 32.1 L, Plt Count 163 09/29/19 00:45: Sodium 140, Potassium 4.7, BUN 81 H, Creatinine 12.80 H*, Glucose 193 H, Magnesium 2.1, Total Bilirubin 0.4, AST 14 L, ALT 23, Alkaline Phosphatase 113 Assessment & Plan - Problems (Diagnosis) (1) Chest pain, rule out acute myocardial infarction Current Visit: Yes Status: Acute (2) CHF (congestive heart failure) Current Visit: No Status: Acute Qualifiers: (3) Diabetes mellitus Current Visit: No Status: Chronic Qualifiers: (4) ESRD (end stage renal disease) on dialysis Current Visit: No Status: Chronic (5) HTN (hypertension) Current Visit: No Status: Chronic Qualifiers: - Plan 1. Serial troponins and EKG 2. Cardiology consultation 3. Echocardiogram and stress test if cardiology is agreeable 4. Anti-platelet therapy, anti coagulation, beta-christian, statin, and O2 as needed 5. IV morphine for pain 6. Nitro p.r.n. 7. Nephrology consultation for hemodialysis 8. GI and DVT prophylaxis - Advance Directives Does patient have a Living Will: No Does patient have a Durable POA for Healthcare: No - Code Status/Comfort Care Code Status Assessed: Yes Code Status: Full Code Critical Care: No Time Spent Managing PTS Care (In Minutes): 45
--- NOTE | 2019-09-29 08:31 | RAD REPORT ---
EXAM DESCRIPTION: Cecilia Single View09/29/2019 1:29 am CLINICAL HISTORY: Chest pain COMPARISON: 2019 FINDINGS: The lungs appear clear of acute infiltrate. The heart is normal size IMPRESSION: No acute abnormalities displayed
[2019-09-29] MEDS ORDERED: REGADENOSON 0.4 MG/5 ML SYR IV ONE (08:55)
[2019-09-29] MEDS ORDERED: AMLODIPINE 10 MG TAB PO SCH (09:00)
[2019-09-29] MEDS: DOXAZOSIN 4 MG TAB PO SCH ×2 (09:00→21:00)
[2019-09-29] MEDS: ERYTHROMYCIN BASE 250 MG PO SCH ×2 (09:00→21:00)
[2019-09-29] MEDS ORDERED: ASPIRIN EC 81 MG TAB PO SCH (09:00)
[2019-09-29] MEDS ORDERED: CLOPIDOGREL 75 MG TABLET PO SCH (09:00)
[2019-09-29] MEDS ORDERED: ALPRAZOLAM 1 MG TABLET PO SCH (09:00)
[2019-09-29] MEDS: INSULIN LISPRO 100 UNIT/1 ML SQ SCH ×3 (09:00→21:00)
[2019-09-29] MEDS: ONDANSETRON 4 MG (ODT) TAB PO PRN ×2 (09:43→16:31)
[2019-09-29] MEDS: HEPARIN 5000 UNIT/ML 1 ML VIAL SQ SCH ×2 (09:43→23:18)
--- NOTE | 2019-09-29 10:56 | P.PN ---
Subjective Date of Service: 09/29/19 Chief Complaint: Chest pain rule out acute coronary syndrome Subjective: Improving, Doing well Review of Systems General: Other (Hungry), Unremarkable Eyes: Unremarkable ENT: Unremarkable Respiratory: Unremarkable Cardiovascular: Unremarkable Gastrointestinal: Unremarkable Genitourinary: Dysuria Musculoskeletal: Unremarkable Integumentary: Unremarkable Neurological: Unremarkable Physical Examination - Vital Signs Temperature: 97.8 F Blood Pressure: 108/91 Pulse: 78 Respirations: 16 Pulse Ox (%): 96 - Physical Exam General: Alert, In no apparent distress, Oriented x3 HEENT: Atraumatic, Normocephalic, PERRLA Neck: Supple, Other (Trachea midline) Respiratory: Clear to auscultation bilaterally, Normal air movement Cardiovascular: No edema, Normal pulses, Regular rate/rhythm Capillary refill: <2 Seconds Gastrointestinal: Normal bowel sounds, Soft and benign, Non-distended Musculoskeletal: No swelling, No erythema, No tenderness Integumentary: No rashes, No breakdown, No significant lesion Neurological: Normal speech, Normal strength at 5/5 x4 extr, Normal tone - Studies Laboratory Data (last 24 hrs) 09/29/19 00:45: PT 11.4, INR 0.97 09/29/19 00:45: WBC 6.4, Hgb 11.1 L, Hct 32.1 L, Plt Count 163 09/29/19 00:45: Sodium 140, Potassium 4.7, BUN 81 H, Creatinine 12.80 H*, Glucose 193 H, Magnesium 2.1, Total Bilirubin 0.4, AST 14 L, ALT 23, Alkaline Phosphatase 113 Assessment And Plan Discharge Plan: Residential Plan to discharge in: 48 Hours - Code Status/Comfort Care Code Status Assessed: Yes (Full code)
[2019-09-29] MEDS: SEVELAMER CARBONATE 800 MG TABLET PO SCH ×2 (12:18→17:00)
--- NOTE | 2019-09-29 12:42 | RAD REPORT ---
EXAM DESCRIPTION: NM - Rest Stress Cardiac Imaging - 09/29/2019 11:43 am CLINICAL HISTORY: Chest pain COMPARISON: None. TECHNIQUE: The patient was administered 10.9 mCi of Tc 99m Sestamibi prior to resting SPECT imaging of the heart. The patient was then administered 30.4 mCi of Tc 99m Sestamibi following exercise or ph armacologic stress. Multiplanar SPECT images were reviewed. FINDINGS: The end diastolic volume is 171 ml, the end systolic volume is 75 ml, and the ejection fra ction is 56 %. Physiologic distribution of the radiopharmaceutical through the myocardium is noted. No stress induce d ischemic defect is seen to suggest stress induced ischemia. No fixed defect is seen to suggest hibe rnating myocardium or scarred myocardium. Slight decrease in activity along the inferior wall does n ot change between stress and rest imaging. This is believed to be diaphragm attenuation artifact. IMPRESSION: No stress induced ischemia or other suspicious findings. End-diastolic volume is enlarged at 171 milliliters. Ejection fraction is normal range at 56%.
--- NOTE | 2019-09-29 12:43 | ECHO ---
HEIGHT: 5 ft 6 in WEIGHT: 204 lb 0 oz DATE OF STUDY: 09/29/[address]: Yue Barrera MD 2-DIMENSIONAL: YES M.MODE: YES DOPPLER: YES COLOR FLOW: YES TDS: NO PORTABLE: YES DEFINITY: NO BUBBLE STUDY: NO DIAGNOSIS: CHEST PAIN CARDIAC HISTORY: CATHERIZATION: NO SURGERY: NO PROSTHETIC VALVE: NO PACEMAKER: NO MEASUREMENTS (cm) DIASTOLIC (NORMALS) SYSTOLIC (NORMALS) IVSd 1.5 (0.6-1.2) LA Diam 4.5 (1.9-4.0) LVEF 64% LVIDd 3.9 (3.5-5.7) LVIDs 2.6 (2.0-3.5) %FS 35% LVPWd 1.4 (0.6-1.2) Ao Diam 2.9 (2.0-3.7) 2 DIMENSIONAL ASSESSMENT: RIGHT ATRIUM: NORMAL LEFT ATRIUM: DILATED RIGHT VENTRICLE: NORMAL LEFT VENTRICLE: LEFT VENTRICULAR HYPERTROPHY TRICUSPID VALVE: NORMAL MITRAL VALVE: MITRAL ANNULAR CALCIFICATION PULMONIC VALVE: NORMAL AORTIC VALVE: NORMAL PERICARDIAL EFFUSION: NONE AORTIC ROOT: NORMAL LEFT VENTRICULAR WALL MOTION: NORMAL. DOPPLER/COLOR FLOW: MILD TRICUSPID REGURGITATION - NORMAL RIGHT VENTRICULAR SYSTOLIC PRESSURE. COMMENTS: MILD TRICUSPID REGURGITATION - NORMAL RIGHT VENTRICULAR SYSTOLIC PRESSURE. LEFT VENTRICULAR HYPERTROPHY. LEFT ATRIAL ENLARGEMENT. NORMAL WALL MOTION. MITRAL ANNULAR CALCIFICATION. TECHNOLOGIST: JUDIE CALVO
--- NOTE | 2019-09-29 13:12 | TREADPHA ---
DX: CHEST PAIN Date of Study: 09/29/2019 Ht: 5' 6 " Wt: 204 lb 0 oz Consulting Physician: GOOD MEDICATIONS: TYLENOL, ASPIRIN, PLAVIX, LOPRESSOR, HEPARIN HISTORY: 44 YEAR OLD MALE WITH HISTORY OF HYPERTENSION, INSULIN DEPENDENT DIABETES MELLITUS AND END STAGE RENAL DISEASE. ADMITTED FOR CHEST PAIN. PHYSICIAL EXAMINATION: RESTING B.P.: 194/93 RESTING H.R.: 66 RESTING EKG: NORMAL PROTOCOL: LEXISCAN EXERCISE TIME: 3:30 B.P. AT [place] STRESS: 134/81 IMPRESSION: LEXISCAN STRESS TEST PERFORMED. CARDIOLITE INJECTED PER PROTOCOL. NO SUPRAVENTRICULAR TACHYCARDIA, VENTRICULAR TACHYCARDIA OR ARRYTHMIAS NOTED. PATIENT DENIED CHEST PAIN. PATIENT DID HAVE NAUSEA AND VOMITING, SYMPTOMS SYBSIDED. RESPIRATORY EVEN AND NON LABORED. SEE NUCLEAR MEDICINE REPORT.
[2019-09-29] MEDS ORDERED: MANNITOL 25% 12.5 GM/50 ML VIAL IV PRN (13:25)
[2019-09-29] MEDS ORDERED: NA CHLORIDE 0.9% 1,000 ML IV PRN (13:25)
[2019-09-29] MEDS ORDERED: ALBUMIN HUMAN 25% 50 ML IV SCH (14:00)
[2019-09-29] MEDS ORDERED: PROMETHAZINE INJ 25 MG/ML AMP IV PRN (17:39)
[2019-09-29] MEDS ORDERED: ATORVASTATIN 20 MG TAB PO SCH (21:00)
[2019-09-29] MEDS ORDERED: AMITRIPTYLINE 50 MG TAB PO SCH (21:00)
[2019-09-29] MEDS ORDERED: ATORVASTATIN 40 MG TAB PO SCH (21:00)
[2019-09-29] MEDS ORDERED: INSULIN GLARGINE 100 UNITS/ML SQ SCH (21:00)
--- NOTE | 2019-09-29 23:31 | P.PN ---
Date of Service: 09/29/19 Patient's stress test and echocardiogram were unremarkable. At this time, patient is stable for discharge home. Patient just finished dialysis around 11:30 p.m.. He does not have a ride to get home. Will go ahead and make him a hold and discharge in the morning.
[2019-09-30 00:42] VITALS: O2SAT 98
--- NOTE | 2019-09-30 02:34 | CON ---
Date of Consultation: 09/29/2019 Reason For Consultation: Admitted to the ICU on 09/29/[address] Garcia for chest pain. I saw the patient on 09/29/2019. History Of Present Illness: The patient is a 44-year-old male. He has a history of end-stage renal disease. He is on the transplant list. He has diabetes, hypertension, dyslipidemia. He came in wit h left-sided to mid-epigastric chest pain that is sharp, stabbing, radiating to the back without any nausea, vomiting, diaphoresis, PND, orthopnea, pedal edema, palpitations, or syncope. His creatinine was 12.8. His BNP is 14,000 and he was hypertensive at 189/89. He is pain-free now. Allergies: NONE. Review of Systems: Negative. Social History: Negative. Family History: Noncontributory. Medications: At home include insulin, Norvasc, Lipitor, Cardura, and Renvela. Physical Examination: General: He appeared his stated age. He was in no acute distress. Vital Signs: Stable. He was afebrile. He was in a sinus rhythm. HEENT: Negative. Neck: Supple with no bruit. Chest: Clear to auscultation and percussion. cardiac Exam: Revealed a regular rhythm and rate with an S4 gallop. No murmurs or rubs. Abdomen: Benign. Extremities: Revealed no clubbing, cyanosis, or edema. Diagnostic Data: As stated earlier. EKG showed LVH. Impression And Plan: Atypical chest pain. The patient has many risk factors for heart disease inclu ding diabetes, hypertension, dyslipidemia. He did have a normal heart catheterization about a year a go as part of his cardiac workup for kidney transplant. The catheterization was done at [facility] on by Dr. Crawford. Echocardiogram and Lexiscan have been ordered for today and we will see what these show. His diabetes and dyslipidemia are well controlled. His blood pressure is poorly controlled. We may have to go up on the dose of the Norvasc or the Cardura. We will see how he does with his pr esent regimen. We will make a decision regarding his discharge after the echocardiogram and Lexiscan are done. NB/MODL Voice ID: [id number] Report ID: [id number]
--- NOTE | 2019-09-30 07:26 | EKG ---
Test Date: 2019-09-29 Test Time: 09:03:39 Social Service Director: ILSA MEASUREMENT RESULTS: Intervals: Rate: 80 VT: 182 QRSD: 82 QT: 430 QTc: 495 [place]: P: 39 VT: 182 QRS: 22 T: 78 INTERPRETIVE STATEMENTS: Normal sinus rhythm Prolonged QT Abnormal ECG Compared to ECG 09/29/2019 00:39:52 No significant changes Electronically Signed On 09-30-19 07:23:36 CDT by Jules Yadav
[2019-09-30 08:17] VITALS: BP 181/91; TEMP 98.5
--- NOTE | 2019-09-30 13:17 | P.DS ---
Discharge Date: 09/30/19 Disposition: ROUTINE DISCHARGE Discharge Condition: GOOD Reason for Admission: Chest pain rule out acute coronary syndrome Consultations: NEPHROLOGY;CARDIOLOGY - Problems (1) Chest pain, rule out acute myocardial infarction Status: Acute (2) CHF (congestive heart failure) Status: Acute Qualifiers: (3) Diabetes mellitus Status: Chronic Qualifiers: (4) ESRD (end stage renal disease) on dialysis Status: Chronic (5) HTN (hypertension) Status: Chronic Qualifiers: Brief History of Present Illness: Patient is a 44-year-old gentleman who came to the hospital with chest discomfort. Pain was mainly in the sternal region. Patient says is deepened not reproducible. He has seen a public address announcer-Dr. Crawford-in the past and he states he thinks he has had a stress test. He came to the hospital because his chest pain was not improving. He has a history of end-stage renal disease and is on hemodialysis. He has been compliant with his dialysis. He came into the emergency room for further evaluation and in the ER his troponins and EKG were unremarkable. At this time, he will be admitted to the hospital for observation. Will do serial troponins, and we will also do EKGs. Will admit the patient for observation at this time with Cardiology and Nephrology consultation. Hospital Course: Patient was worked up for his chest pain. Troponins were negative. Echocardiogram and stress test were negative. Patient was dialyzed & decision was made to discharge home. Patient will follow with Nephrology and PCP as an outpatient. Vital Signs/Physical Exam: Temp Pulse Resp BP Pulse Ox 98.5 F 79 15 181/91 H 100 09/30/19 07:00 09/30/19 07:00 09/30/19 07:00 09/30/19 07:00 09/30/19 04:00 General: Alert, In no apparent distress, Oriented x3 Laboratory Data at Discharge: WBC 6.4 K/uL (4.3-10.9) 09/29/19 00:45 Hgb 11.1 g/dL (13.6-17.9) L 09/29/19 00:45 Hct 32.1 % (39.6-49.0) L 09/29/19 00:45 Plt Count 163 K/uL (152-406) 09/29/19 00:45 PT 11.4 SECONDS (9.5-12.5) 09/29/19 00:45 INR 0.97 09/29/19 00:45 Sodium 140 mmol/L (136-145) 09/29/19 00:45 Potassium 4.7 mmol/L (3.5-5.1) 09/29/19 00:45 BUN 81 mg/dL (7-18) H 09/29/19 00:45 Creatinine 12.80 mg/dL (0.55-1.3) H* 09/29/19 00:45 Glucose 193 mg/dL (74-106) H 09/29/19 00:45 Magnesium 2.1 mg/dL (1.8-2.4) 09/29/19 00:45 Total Bilirubin 0.4 mg/dL (0.2-1.0) 09/29/19 00:45 AST 14 U/L (15-37) L 09/29/19 00:45 ALT 23 U/L (12-78) 09/29/19 00:45 Alkaline Phosphatase 113 U/L (45-117) 09/29/19 00:45 Troponin I < 0.02 ng/mL (0.0-0.045) 09/29/19 13:58 Triglycerides 142 mg/dL (<150) 09/29/19 06:20 Cholesterol 152 mg/dL (<200) 09/29/19 06:20 HDL Cholesterol 46 mg/dL (40-60) 09/29/19 06:20 Cholesterol/HDL Ratio 3.30 09/29/19 06:20 Home Medications: ALPRAZolam [Alprazolam] 1 mg PO DAILY 09/29/19 Amitriptyline [Elavil*] 50 mg PO BEDTIME 09/29/19 Amlodipine Besylate [Norvasc] 10 mg PO DAILY 09/29/19 Atorvastatin Calcium 40 mg PO BEDTIME 09/29/19 Doxazosin [Cardura*] 4 mg PO BID 09/29/19 Erythromycin Base [Erythromycin] 250 mg PO BID 09/29/19 Insulin Aspart [Novolog] 20 unit SQ TID 09/29/19 Insulin Glargine,Hum.rec.anlog [Basaglar Kwikpen U-100] 20 unit SQ BEDTIME 09/29/19 Metoprolol Tartrate [Lopressor*] 25 mg PO BID #30 tab 09/29/19 Ondansetron HCl [Zofran] 4 mg PO Q8H PRN 09/29/19 Sevelamer Carbonate [Renvela*] 3 tab PO TIDWM 09/29/19 Sildenafil Citrate 50 mg PO PRN PRN 09/29/19 New Medications: Metoprolol Tartrate [Lopressor*] 25 mg PO BID #30 tab Patient Discharge Instructions: OK TO DC IV AND DC HOME. FOLLOW-UP WITH PRIMARY CARE PROVIDER IN 1-2 WEEKS. FOLLOW-UP WITH CARDIOLOGY IN 1-2 WEEKS. RETURN TO THE ER IF symptoms worsen. CALL or TEXT DR. PAYAN AT [phone] IF ANY QUESTIONS REGARDING HOSPITAL STAY. PLEASE CALL THE FLOOR AT [phone] IF ANY MEDICATION OR NURSING QUESTIONS. Diet: Renal Activity: Fall precautions Time spent managing pt's care (in minutes): 25
--- NOTE | 2019-09-30 15:49 | PN ---
Date of Progress Note: 09/30/2019 Subjective: Mr. Chacon came in yesterday with chest pain that is atypical. He has had a normal heart catheterization about a year ago. He is an end-stage renal dialysis patient. He is on the transpla nt list for a kidney. Echocardiogram which was done yesterday showed left ventricular hypertrophy wi th normal ejection fraction and no wall motion abnormalities. Lexiscan was normal without any eviden ce of ischemia. He will be going home today. He will follow up with Dr. Crawford and his hydraulic technician in the near future. DONG/KYLE Voice ID: [id number] Report ID: [id number]
== END 2019-09-30 07:35 | disposition home or self-care (01) ==
LOC: ER 00:26 → ERHOLD 02:26 → 3RD-ICU 02:55
PROVIDERS: ADMIT Hospitalist; ATTEND Hospitalist
DX: R07.89 Other chest pain (principal); I13.2 Hypertensive heart and chronic kidney disease with heart failure and with stage 5 chronic kidney disease, or end stage renal disease; E11.22 Type 2 diabetes mellitus with diabetic chronic kidney disease; N18.6 End stage renal disease; I50.9 Heart failure, unspecified; Z99.2 Dependence on renal dialysis; I07.1 Rheumatic tricuspid insufficiency; R94.31 Abnormal electrocardiogram [ECG] [EKG]; Z11.59 Encounter for screening for other viral diseases; K21.9 Gastro-esophageal reflux disease without esophagitis; E11.43 Type 2 diabetes mellitus with diabetic autonomic (poly)neuropathy; K31.84 Gastroparesis; E78.5 Hyperlipidemia, unspecified; Z79.4 Long term (current) use of insulin; Z79.899 Other long term (current) drug therapy; Z76.82 Awaiting organ transplant status
CPT/HCPCS: 93005 ×2; 93017; 93306; 85025; 80048; 36415; 83735; 85610; 80061; 82947 ×4; 80076; 84484 ×3; 83880; 71045; 90935; 78452; 96375; 96374; 99285; U0002; J2550; J1644 ×3; J2785; J2405 ×2; A9500; G0378 ×3; J1815

== ENCOUNTER 2020-02-27 14:11 | Emergency (ER) | payer OTHER ==
--- OUTSIDE RECORDS SUMMARY | 2020-02-27 14:13 | XMS REPORT | Clinical Summary ---
:1975 Author Organization [facility] Address [address] [place] [address] Care Team Providers Name Role Phone Unavailable [...] Assigned at Date Recorded Not on file Last Filed Vital Signs Not on file Plan of Treatment Not on file Results Not on fileafter 02/26/2019 Insurance Payer Benefit Plan / Subscriber ID Effective Phone Address T ype Group Dates MEDICARE MEDICARE A B [id number] 2012-Pre Med icare sent CIGNA CIGNA [id number] 2017-Pre [facility] sent Contracted
--- OUTSIDE RECORDS SUMMARY | 2020-02-27 14:14 | XMS REPORT | Continuity of Care Document ---
:1975 Author Organization [facility] Care Team Providers Name Role Phone [facility] Unavailable Un available Problems Problem Status Onset Classification Date Comments Sourc e Date Reported GASTROPARESIS Active 09/08/19 Condition 09/07/2014 [facility] dical 15 Group ERECTILE Active 09/08/19 Condition 09/07/2014 [facility] DYSFUNCTION 15 Group PHYSICAL Active 09/08/19 Condition 09/07/2014 [facility] EXAMINATION 15 Group PHYSICAL EXAM Inactive 09/09/19 Condition 09/07/2014 [facility] dical 14 Group HYPERLIPIDEMIA - Active 09/01/19 Condition 09/07/2014 Medical MIXED 14 Group PRE-OP CV EXAM Active 09/01/19 Condition 09/07/2014 [facility] edical 14 Group RENAL FAILURE, Active 06/06/19 Condition 09/07/2014 [facility] edical CHRONIC 13 Group ANEMIA IN CHRONIC Active 06/06/19 Condition 09/07/2014 [facility] Medical KIDNEY DISEASE 13 Group DIAB W/O COMP Active 06/03/19 Condition 09/07/2014 [facility] dical TYPE II/UNS NOT 13 Grou p [...] Group CAPS BD INSULIN use as Active [facility] SYRINGE directed 014 Group HALF-UNIT 31G X [...] p Temperature Oral (F) 98.3 F 09/07/2014 [facility]iva Group Height 66 09/07/2014 [facility] p Weight 210 09/07/2014 [facility] Gr[facility] p Respitory Rate 14 09/07/2014 Medical Gr oup Weight 204 09/08/2013 [facility] Temperature Oral (F) 98.0 F 09/08/2013 [facility] Heart Rate 77 09/08/2013 Medical [...] Location Location Encounter Encounter Reason Attending ADM MD Stat us Source Details Type Number For Provider Date Date Visit AUDIT [id number] 01/30 Physician s AUDIT [id number] 01/30 Physician s AUDIT [id number] 01/30 Physician s AUDIT [id number] 02/03 Physician s AUDIT [id number] 03/08 Physician s AUDIT [id number] 04/07 [facility] [id number] Oralia Murray, 08/31 08/31 [facility] Visit [address] [facility] [place] [facility] [address] [facility] Office [id number] Lyric 09/08 09/08 [facility] [place] Visit 0420 MD Javier /2013 [facility] [address] [facility] Lab Report [id number] [facility] 02/23 02/23 [place] 0570 MD Javier /2013 [facility] [place] [facility] Office [id number] El[place] 09/07 09/07 [facility] [place] Visit 1320 MD Lupillo /2014 [facility] [place] Procedures No Data Provided for This Section Assessment and Plan No Data Provided for This Section Plan of Care No Data Provided for This Section Social History Social History Date Source Never A Smoker 04/07/2012 [facility] (Active) Never Drank Alcohol (Active) Family History No Data Provided for This Section Advance Directives Order Name Results Value Date Source Advance Directives Advance Directives No Advance 04/07/2012 [facility] Directives available. Advance Directives Advance Directives No Advance 03/08/2012 [facility] Directives available. Advance Directives Advance Directives No Advance 02/04/2012 [facility] Directives available. Advance Directives Advance Directives No Advance 02/01/2012 [facility] Directives available. Advance Directives Advance Directives No Advance 01/31/2012 [facility] Directives available. Advance Directives Advance Directives No Advance 01/31/2012 [facility] Directives available. Functional Status No Data Provided for This Section
--- OUTSIDE RECORDS SUMMARY | 2020-02-27 14:15 | XMS REPORT | Summary of Care ---
:1975 Author Organization [facility] Address [address] [place] [address] Care Team Providers Name Role Phone Kyler Ogden Primary Care Provider Awilda Mccoy DO Paper Coating Supervisor Reason for Referral (AKIL) Status Reason Specialty Diagnoses / Referred By Referred To Procedures Contact Contact New Request Cardiology Diagnoses Pre-transplant evaluation for kidney transplant Izzy Mcelroy Procedures DOBUTAMINE STRESS ECHO Alex Roque MD [address] [address] MRI/CAT Scan (AKIL) Status Reason Specialty Diagnoses / Referred By Referred To Procedures Contact Contact Authorized Diagnostic Diagnoses Pre-transplant evaluation for kidney transplant Navi Radiology Procedures CT ABDOMEN PELVIS W WO CONTRAST Izzy Roque MD 301 [facility] [id number] [place] [address] Reason for Visit Reason Comments Pre-Transplant Follow-up Encounter Details Date Type Department Care Team Description 11/16/2019 Office Visit [facility] Luan Moore MD [address] [place] [address] Pre-transplant Transplant-[place] Izzy Mcelroy MD [id number] [facility] [place] [id number] evaluation for [facility] C[facility] kidney transplant 2660 [facility], (Pr imary Dx) [place] [address] Allergies Active Allergy Reactions Severity Noted Date Comments Promethazine Hcl Anxiety Low 10/08/2016 "jumpy" documented as of this encounter (statuses as of 12/09/2019) Medications Medication Sig Dispensed Refills Start Date End Date Status calcium acetate 667 mg Take 667 mg by 0 Active Tab mouth 3 (three) times daily with meals. ALPRAZolam (XANAX) 0.25 Take 0.25 mg by 0 Active mg tablet mouth 2 (two) times daily. Insulin Lispro, Human, inject 20 Units 0 Active (HUMALOG) 100 unit/mL under the skin 2 cartridge (two) times daily. NIFEdipine CC 90 mg SR Take 90 mg by 0 Active tablet mouth 2 (two) times daily. Insulin Glargine inject 25 Units 0 Active (BASAGLAR KWIKPEN U-100 under [...] Active tabletIndications: mouth at bedtime. Essential hypertension sevelamer 800 mg tablet Take 2,400 mg by 0 Active mouth 3 (three) times daily with meals. documented as of this encounter (statuses as of 12/09/2019) Active Problems Problem Noted Date Obesity (BMI 30-39.9) 07/23/2018 Hypertension 03/17/2014 Cataract 03/17/2010 Overview: fixed bilaterally DM (diabetes mellitus) 03/17/1992 Nephropathy IBS (irritable bowel syndrome) Gastroparesis ESRD (end stage renal disease) on dialysis Secondary hyperparathyroidism of renal origin Retinopathy documented as of this encounter (statuses as of 12/09/2019) Immunizations Name Administration Dates Next Due Hep B, Adol or Pedi Dosage 12/28/2012, 08/26/2012, 3, 06/19/2012 Influenza Virus Vaccine 11/27/2016, 12/05/2014, 11/15/2013, 11/20/2012, 07/08/2012 PPD (TB) 04/03/2015, 04/13/2014, 09/08/2013, 05/30/2012 Pneumococcal 13 Conjugate, PCV13 05/12/2015, 06/19/2012 (Prevnar 13) documented as of this encounter Social History Tobacco Use Types Packs/Day Years Used Date Never Smoker Smokeless Tobacco: Never Used Alcohol Use Drinks/Week oz/Week Comments Not Currently quit 4-5 years a go Sex Assigned at Date Recorded Not on file COVID-19 Exposure Response Date Recorded In the last month, have you been in contact with No / Unsure 11/16/2019 11:35 AM CDT someone who was confirmed or suspected to have Coronavirus / COVID-19? documented as of this encounter Last Filed Vital Signs Vital Sign Reading Time Taken Comments Blood Pressure 170/92 11/16/2019 11:10 AM CDT Pulse 76 11/16/2019 11:10 AM CDT Temperature 36.4 C (97.6 F) 11/16/2019 11:09 AM CDT Respiratory Rate - - Oxygen Saturation 97% 11/16/2019 11:10 AM CDT Inhaled Oxygen Concentration - - Weight 91.2 kg (201 lb 1.6 oz) 11/16/2019 11:09 AM CDT no shoes Height 168.1 cm (5' 6.18") 11/16/2019 11:09 AM CDT no s hoes Body Mass Index 32.28 11/16/2019 11:09 AM CDT documented in this encounter Patient Instructions Patient InstructionsSofía Penn RN - 11/16/2019 11:00 AM CDTThank you for participating in clinic today to talk to our transplant team. You are currently inactive on the Kidney transplant wait list with 7+ years of accumulated time. In order to get you active again on the list we will need to update your cardiac stress test and get a CT abdomen and pelvis forreview. Please contact our office if you have any testing done elsewhere. Remember, our calls are usually blocked, so you either need to make sure your phone will accept blocked calls or check your voice mail immediately after getting a call that is blocked. You could be getting a call for a kidney offer. If not transplanted first, we will see you again next year in our transplant clinic with the following required testing: -cardiac stress test -chest xray -lab work -EKG -other testing per physician orders Please contact me for any changes in your health status, i.e. Infections,hospitalizations. Sofía Penn RN campaign coordinator ---OR--- campaign coordinator costumer assistant [phone] In an effort to improve communication with our patients, we asking all transplant candidates to signup for [employer]'s online patient portal. By doing so, you will have safe direct communication access to your transplant team. This portal will be used throughout your transplant experience to improve our communication with you for such things as appointment scheduling and treatment recommendations. [employer] gives you direct and confidential online access to portions of your electronic medical record (EMR) where your doctor stores your health information. Connect to your care by sending secure, non-urgent electronic messages to your provider and clinical care team from the convenience of your computer or mobile device. Your lab results, appointment information, medications, immunizations and more are all securely stored for quick retrieval. And, prescription refill requests can be completed with a click of a button! Participation is free and completely optional. We encourage you to activate your account and begin taking advantage of the many benefits [employer] has to offer. Steps for [employer] Account Activation 1. Connect to [email or web address] in your web browser 2. Click the Get [employer] Access Here button and follow the instructions under the I want access to [employer] section *This access code is for the sole use of the patient and should not be activated and / or used by any other individual on behalf of the patient. Please visit [email or web address] for information on [employer] proxy access. We hope you will connect to your care! documented in this encounter Progress Notes Izzy Mcelroy MD - 11/16/2019 11:00 AM CDT Transplant Clinic Visit Type: OTEC (Outpatient Transplant Evaluation Clinic) Note / History and Physical PCP: UNKNOWN Referring Physician: Rojas Figueroa Date of Service: 11/16/2019 Chief Complaint: Transplant Evaluation Kidney (Annual) History of Present Illness: Chase Chacon Jr. is a 44 year old male who presents ESRD secondary to DM, is here for his yearly evaluation to remain active on the list. The patient is listed with [facility]. Patient has been on Hemodialysis since 2013, per patient had an angiogram at the time of listing. He is compliant with dialysis. He makes little urine. His body mass index is 32.28 kg/m..No history of stroke, seizure, DVT, PE, per patient he was worked up for pancreas and found not to be a candidate. He had a recent cath in 2019 which showed mild proximal LAD disease but negative by FFR. He had moderate to severe pulmonary venous HTN with elevated right and left filling pressures but preserved CO. Recommendation was aggressive UF. No UOP. Review of Systems: I agree with the nurse coordinator's ROS with the following changes: none Karnofsky score: 80% The medications have been reviewed and entered into the EMR. I have reviewed the list. Allergies: reviewed No Known Allergies Past Medical History: Diagnosis Date Anemia Anxiety Cataract 2010 fixed bilaterally Dialysis patient DM (diabetes mellitus) 1992 ESRD (end stage renal disease) on dialysis Gastroparesis GERD (gastroesophageal reflux disease) Hypertension 2014 IBS (irritable bowel syndrome) Nephropathy Retinopathy Secondary hyperparathyroidism of renal origin Past Surgical History: Procedure Laterality Date ARTERIOVENOUS FISTULA CREATION 2012 EYE SURGERY Family History Problem Relation Age of Onset Diabetes Mother Hypertension Mother Diabetes Father Hypertension Father dialysis Diabetes Sister No Significant Medical Problems Brother No Significant Medical Problems Brother Social History Socioeconomic History Marital status: Single Spouse name: Not on file Number of children: Not on file Years of education: Not on file Highest education level: Not on file Occupational History Not on file Social Needs Financial resource strain: Not on file Food insecurity Worry: Not on file Inability: Not on file Transportation needs Medical: Not on file Non-medical: Not on file Tobacco Use Smoking status: Never Smoker Smokeless tobacco: Never Used Substance and Sexual Activity Alcohol use: Not Currently Comment: quit 4-5 years ago Drug use: No Sexual activity: Not Currently Lifestyle Physical activity Days per week: Not on file Minutes per session: Not on file Stress: Not on file Relationships Social connections Talks on phone: Not on file Gets together: Not on file Attends jehovah's witness service: Not on file Active member of club or organization: Not on file Attends meetings of clubs or organizations: Not on file Relationship status: Not on file Intimate partner violence Fear of current or ex partner: Not on file Emotionally abused: Not on file Physically abused: Not on file Forced sexual activity: Not on file Other Topics Concern Not on file Social History Narrative Not on file Immunization History Administered Date(s) Administered Hep B, Adol or Pedi Dosage 06/19/2012, 07/27/2012, 08/26/2012, 12/28/2012 Influenza Virus Vaccine 07/08/2012, 11/20/2012, 11/15/2013, 12/05/2014, 11/27/2016 PPD (TB) 05/30/2012, 09/08/2013, 04/13/2014, 04/03/2015 Pneumococcal 13 Conjugate, PCV13 (Prevnar 13) 06/19/2012, 05/12/2015 Other Topics Concern Not on file The patient's history has been reviewed by me.. I have not needed to update the information. Physical Exam: BP (!) 170/92 (BP Location: Right arm, Patient Position: Standing, BP CUFF SIZE: Adult Medium) | Pulse 76 | Temp 36.4 C (97.6 F) (Tympanic) | Ht 5' 6.18" (1.681 m) | Wt 201 lb 1.6 oz (91.2 kg)| SpO2 97% | BMI 32.28 kg/m Constitutional: alert, healthy, no acute distress, well nourished; pain score is 0/10 Eyes: no icterus, redness or discharge ENT: moist mucous membranes, no discharge from nose Neck: full range of motion without pain Cardiovasular : Heart with regular rate and rhythm, blood pressure wnl Pulmonary: breathing is clear and easy, no wheezing; Abdomen/GI: soft, non distended, not tender; incisions - protuberant MS/Extremities: no clubbing, cyanosis; -edema Dialysis access: Left arm AVF Pulses: Femoral: Right++ Left++ Skin: no rashes, ecchymosis or infections Neurologic: alert and oriented x 3, no focal defects Psychiatric: stable, no concerns Heme/lymph/Immune: no lymphadenopathy Laboratory/Radiology/ Pathology Will obtain the current results from the LMD or transplant unit ESRD DM-II Obesity Plan Transplant Eligibility: Inactive for now. He will need an updated stress test and other routine cardiac testing. He will also need CT A/P to assess vasculature. Needs continued UF challenge with HD. BMI a problem? Patient has lost weight and is now acceptable. Cardiac work up: as per protocol Vascular work up: None Bladder work up: N/A Routine labs testing: as per protocol Diagnostic studies: We should be able to obtain reports from work-ups completed by other health care facilities if the work ups have been completed within the last year. After reviewing these results, we will decide on any other testing that may be needed. The results of the labs and other reports will be discussed with the multidisciplinary transplant team, and the plan will be formulated and implemented for the patient's continued evaluation. I had the opportunity to talk to Chase Chacon Jr. about the followin. Reasons to perform a kidney and/or pancreas transplant including longevity of life and improved quality of life. 2. Allocations of organs > related to life-years outcomes and the age of the donor and the recipient 3. Types of donors including living and . >Types of donors including: Standard donor criteria - KDPI < 85 Expanded Criteria - KDPI > 85 Donation after Cardiac CDC high risk Donors with previous exposure to Hepatitis B (if vaccinated for HBV) 4. The average wait times to receive each type of kidney and the importance of ABO and blood transfusions 5. The average time of survival of each organ according to type of donor 6. The operative procedure and the inpatient hospitalization including the discussion of possible complications 7. The care of the patient after the hospitalization for the transplant 8. The complications of immunosuppression that includes but is not limited to infections, cancers, post transplant diabetes and or worsening of preexisting diabetes mellitus. 9. Living donation discussed and encouraged. 10. As always I appreciate the opportunity to participate in the care of your patient. I discussed the results of the labs and other reports with the multidisciplinary transplant team, and formulated and implemented the plans for the patient's care. This visit involved counseling and coordination of care that comprised more than 50% of the visit time. TOTAL TIME SPENT WITH PATIENT: 70 MINS HISTORY AND PHYSICAL EXAM: 30 MINS COUNSELIN MINS risks and benefits of medical treatment options of ESRD risks and benefits of surgical and medical treatment options of transplantation risks and benefits of immunosuppression treatment options and prevention of rejection Risks and benefits of treatment of other medical conditions Need to keep healthy, exercise, and maintain weight below BMI of, at most, 35 and preferably <30. COORDINATION OF CARE AND MEDICAL DECISION MAKIN MINS with the transcription coordinator and the career advisor with review of the medical records and medical documentationavailable under the External Providedtab of the Chart Review.. FUTURE LABS: Per delegation orders Izzy Mcelroy MD Fili, Sofía Ogden RN - 11/16/2019 11:00 AM CDTSummary: he rosanne Chacon Jr. is a 44 year old male, with a h/o ESKD 2/2 DM/HTN, alert/oriented x 3, ambulatory,on HD dialysis since 05/30/2012 on MWF schedule @ [facility] under the care of Dr. Mccoy. Patient is accompanied by his brother. The following is a summary of the topics discussed: ? The pre-transplant evaluation process: o Test and procedures required o Presentation to the Multidisciplinary Selection Committee o Listing ? The indications and selection criteria for Kidney and/or Pancreas transplant ? The benefits and potential risks/complications of kidney and/or pancreas transplantation ? Kidney Allocation, Types of Donors and donor related risk factors ? Living donation ? Multi-listing including wait time transfer. ? How to stay healthy while on the list and waiting for the transplant. ? The organ offer: Procedure and Expectations ? How to obtain more transplant related information on-line at www.unos.org or at www.srtr.org and other sites. Patient was given opportunities to ask questions. He showed interest to learn. He demonstrated acceptable knowledge and comprehension about the evaluation and transplant processes. A consent to receive or not receive a donor with Kidney Donor Profile Index (KDPI) >85% was alsoobtained. Hep C positive donor consent was discussed and he will consider it. He was seen in transplant clinic today by the Transplant Team for annual review Medical history, allergies, medications and ROS were updated and reviewed. Patient has no potential living donors. Patient appears to be an acceptable candidate Review of Systems General:insomnia Skin: within normal limits Eyes: retinopathy- Dr. Jiménez/ Dr. Hayward Ears/Nose/Throat: hearing loss in left ear Cardiovascular: chest pain a month ago Respiratory: within normal limits Upper Gastrointestinal: nausea and gastroporesis Lower Gastrointestinal: diarrhea and colonoscopy 2015 Genitourinary: urinary output: 0 cc/day (estimate) no prostate problems Musculoskeletal: right knee pain on/off Extremities: within normal limits and LUE AVF Neuro: within normal limits Dental:left lower molar pain Blood transfusions:0 Karnofsky Performance Status 80% Normal activity with effort; some signs and symptoms of disease Grace Graham MA - 11/16/2019 11:00 AM Julio Cesar Chacon Jr. came into clinic with no complaints and no distress noted. documented in this encounter Plan of Treatment Date Type Specialty Care Team Description 12/30/2019 Appointment Radiology Jihan Mcelroy MD [address] [place], [place] [address] 12/30/2019 Laboratory Only Cardiology 1, Adc Cardio Fac Room Pc, Adc Echo Room 1 - 01/14/2020 Office Visit Cardiology Mariposa Crawford MD [address] [place], [place] [address] Name Type Priority Associated Diagnoses Order S chedule CT ABDOMEN PELVIS W WO IMAGING AKIL Pre-transplant Exp ected: 11/16/2019, CONTRAST evaluation for kidney s: 11/15/2020 transplant Health Maintenance Due Date Last Done Comments EYE EXAM 1986 FOOT EXAM 1994 DTaP,Tdap,and Td Vaccines 1995 (1 - Tdap) LDL-C 10/08/2017 10/08/2016 CREATININE (SERUM) 07/22/2019 07/21/2018, 10/08/2016 INFLUENZA VACCINE (#1) 2019 11/27/2016, 12/05/2014, 11/15/2013, Additional history exists Depression Screening 02/03/2020 02/02/2019 HgA1C 05/15/2020 11/16/2019, 12/04/2017, 10/08/2016 PNEUMOCOCCAL 0-64 YEARS Aged Out 05/12/2015, 06/19/2012 N o longer eligible COMBINED SERIES based on patient 's age to complete this topic documented as of this encounter Results Not on filedocumented in this encounter Visit Diagnoses Diagnosis Pre-transplant evaluation for kidney tra nsplant - Primary documented in this encounter Insurance Payer Benefit Plan / Subscriber ID Effective Phone Address T ype Group Dates MEDICARE MEDICARE PART [id number] 2012-Pres [phone] Medicare A & B ent [phone] [place] [phone] COMMERCIAL COMMERCIAL [id number] 2016-Pre HMO /PPO/POS NON-CONTRACT NON-CONTRACT sent GENERIC GENERIC documented as of this encounter
--- OUTSIDE RECORDS SUMMARY | 2020-02-27 14:15 | XMS REPORT | Summary of Care ---
:1975 Author Organization [facility] Address [address] [place] [address] Care Team Providers Name Role Phone Kyler Ogden Primary Care Provider Awilda Mccoy DO Hand Etcher Reason for Referral (AKIL) Status Reason Specialty Diagnoses / Referred By Referred To Procedures Contact Contact New Request Cardiology Diagnoses Pre-transplant evaluation for kidney transplant Izzy Mcelroy Procedures DOBUTAMINE STRESS ECHO Alex Roque MD [address] [address] MRI/CAT Scan (AKIL) Status Reason Specialty Diagnoses / Referred By Referred To Procedures Contact Contact Authorized Diagnostic Diagnoses Pre-transplant evaluation for kidney transplant Navi Radiology Procedures CT ABDOMEN PELVIS W WO CONTRAST Izzy Roque MD 301 [facility] [id number] [place] [address] Reason for Visit Reason Comments Pre-Transplant Follow-up Encounter Details Date Type Department Care Team Description 11/16/2019 Office Visit [facility] Luan Moore MD [address] [place] [address] Pre-transplant Transplant-[place] Izzy Mcelroy MD [id number] [facility] [place] [address] evaluation for Mult[facility]ialty Ctr kidney transplant 2660 [facility], (Pr imary Dx) [place] [address] Allergies Active Allergy Reactions Severity Noted [...] health status, i.e. Infections,hospitalizations. Sofía Penn RN ocean export coordinator ---OR--- ocean export coordinator hair assistant [phone] In an effort to improve communication with our patients, we asking all transplant candidates to signup for [employer]'s online patient portal. By doing so, you will have safe direct communication access to your transplant team. This portal will be used throughout your transplant experience to improve our communication with you for such things as appointment scheduling and treatment recommendations. [employer] gives you direct and confidential online access [...] begin taking advantage of the many benefits [employer] has to offer. Steps for [employer] Account Activation 1. Connect to [email or web address] in your web browser 2. Click the Get [employer] Access Here button and follow the instructions under the I want access to [employer] section *This access code is for the sole use of the patient and should not be activated and / or used by any other individual on behalf of the patient. Please visit [email or web address] for information on [employer] proxy access. We hope you will connect [...] the list. The patient is listed with [facility]. Patient has been on Hemodialysis since 2013, [...] file Gets together: Not on file Attends episcopal service: Not on file Active member of [...] AND MEDICAL DECISION MAKIN MINS with the talent coordinator and the hearing care professional with review of the medical records and medical documentationavailable under the External Providedtab of the Chart Review.. FUTURE LABS: Per delegation orders Izzy Mcelroy MD Fili, Sofía Ogden RN - 11/16/2019 11:00 AM CDTSummary: he rosanne Chacon Jr. is a 44 year old male, with a h/o ESKD 2/2 DM/HTN, alert/oriented x 3, ambulatory,on HD dialysis since 05/30/2012 on MWF schedule @ [facility] under the care of Dr. Mccoy. Patient [...] Mcelroy MD [address] [place], [place] [address] 12/30/2019 Laboratory Only Cardiology 1, Adc Cardio Fac Room Pc, Adc Echo Room 1 - 01/14/2020 Office Visit Cardiology Mariposa Crawford MD [address] [place], [place] [address] Name Type Priority Associated [...] T ype Group Dates MEDICARE MEDICARE PART [id number] 2012-Pres [phone] Medicare A & B ent [id number] [place] [phone] COMMERCIAL COMMERCIAL [id number] 2016-Pre HMO /PPO/POS NON-CONTRACT NON-CONTRACT sent GENERIC GENERIC documented as of this encounter
--- OUTSIDE RECORDS SUMMARY | 2020-02-27 14:15 | XMS REPORT | Continuity of Care Document ---
:1975 Author Organization [facility] t Address [address] [place] [address] Care Team Providers Name Role Phone Navi SAINI, Izzy Roque Attending Clinician [phone], Cardio Fac Room Attending Clinician Unavailable Pc, Echo Room 1 - Attending Clinician Unavailable Problems Condition Condition Condition Status Onset Resolution Last Treating Co mments Source Name Details Category Date Date Treatment Clinician Date ESRD (end ESRD (end Disease Active [facility] 10-02 [facility] - renal renal 00:00: Medical disease) disease) 00 Center on on dialysis dialysis Pre-transp Pre-transp Disease Active [facility] 10-02 [facility] - evaluation evaluation 00:00: Me dical for [...] 2014-09-07 Memoria SIS 09-07 10:20:15 l 00:00: [place] GASTROPARE 00 SIS Active 09/07/2014 Condition 5 [...] EMIA - 08-31 10:20:15 l MIXED 00:00: [place] HYPERLIPID 00 EMIA - MIXED Active 08/31/2013 Condition [facility] PRE-OP CV Condition Active 2014-09-07 Memoria EXAM 08-31 10:20:15 l PRE-OP 00:00: [place] CV EXAM 00 Active 08/31/2013 Condition [facility] RENAL Condition Active 2014-09-07 Mem oria FAILURE, 06-05 10:20:15 l CHRONIC RENAL 00:00: [place] FAILURE, 00 CHRONIC Active 06/05/2012 Condition [facility] 10:20:15 l KIDNEY ANEMIA 00:00: [place] DISEASE IN CHRONIC 00 KIDNEY DISEASE Active 06/05/2012 Condition [facility] DIAB W/O Condition Active 2014-09-07 M emoria COMP TYPE 06-02 10:20:15 l II/UNS NOT DIAB W/O 00:00: Kimani key STATED COMP TYPE 00 UNCNTRL II/UNS NOT STATED UNCNTRL Active 06/02/2012 Condition [facility] DIAB Condition Active 2014-09-07 Mem oria W/RENAL 06-02 10:20:15 l MANIFESTS DIAB 00:00: [place] TYPE W/RENAL 00 II/UNS NOT MANIFESTS UNCNTRL TYPE II/UNS NOT UNCNTRL Active 06/02/2012 Condition [facility] COUGH Condition Active 2014-09-07 Mem oria 06-02 10:20:15 l COUGH 00:00: [place] 00 Active 06/02/2012 Condition [facility] DIABETIC Condition Active 2011-032014-09-07 M emoria RETINOPATH 05-12 10:20:15 l Y DIABETIC 00:00: Simon n RETINOPAT 00 HY Active 2 Condition 09/07/2014 [facility] Group HYPERTENSI Condition Active 2011-032014-09-07 Memoria ON 05-12 10:20:15 l 00:00: [place] HYPERTENSI 00 ON Active 2 Condition 09/07/2014 [facility] Chronic Problem Active 2012-04-07 Mariano steven Kidney 21:40:14 l Disease, Chronic [place] nn Stage 4 Kidney Disease, Stage 4 Active [facility] End Stage Problem Active 2012-04-07 Me moria Renal 21:40:14 l Disease End [place] Stage Renal Disease Active [facility] History of Past Illness Condition Condition Condition Status Onset Resolution Last Treating Co mments Source Name Details Category Date Date Treatment Clinician Date PHYSICAL Condition Inactiv 2014-09-07 2014-09-07 Memoria EXAM e 09-08 10:20:15 10:20:15 l PHYSICAL 00:00: Simon n EXAM 00 Inactive 09/08/2013 Condition 5 [facility] Allergies, Adverse Reactions, Alerts Allergy Allergy Status Severity Reaction(s) Onset Inactive Treating Comm ents Source Name Type Date Date Clinician [facility] - adverse 00:00: Medical reaction 00 Center s No Known No Known Active Memori a Drug Drug l Allergie Allergie Simon n s s Not Not Active Memoria Known Known l [place] Social History Social Habit Start Date Stop Date Quantity Comments Source Sex Assigned At [facility] Social History 2012-04-07 2012-04-07 [facility] lucy 21:40:14 21:40:14 Smoking Status Start Date Stop Date Source Never smoker [facility] Medications Ordered Filled Start Stop Current Ordering Indication Dosage Frequency Signature Comments Components Source Medication Medication Date Date Medication? Clinician (SIG) Name Name CALCIUM Yes one cap Memoria ACETATE 667 6-24 tid with l MG CAPS 00:00: meals [place] 00 BD INSULIN Yes use as Memor ia SYRINGE 3-05 directed l HALF-UNIT 00:00: [place] 31G X 5/16" 00 0.3 ML MISC [...] 1-19 10-15units l SOLN 00:00: tid with [place] 00 meals sc ZITHROMAX No Take 2 [...] emoria Oral Tablet 1-22 l 21:40: [place] Pinto Reglan 10 Yes (Active) Mem oria MG Oral 1-22 l Tablet 21:40: [place] 14 No Active 2011-03 Yes No Active Mem oria Medications 1-17 Medication l 01:30: s [place] 26 REGLAN 10 No 1 po qd [...] TABS 9-21 orally l 00:00: twice a [place] week on Friday and Vital Signs Vital Name Observation Time Observation Value Comments Source Systolic (mm Hg) 2014-09-07 15:20:15 Mariano rial [place] Diastolic (mm Hg) 2014-09-07 15:20:15 Mem orial [place] Heart Rate 2014-09-07 15:20:15 [facility] [place] Temperature Oral (F) 2014-09-07 15:20:15 98.3 F [facility] [place] Height 2014-09-07 15:20:15 [facility] [place] Weight 2014-09-07 15:20:15 [facility] [place] Respitory Rate 2014-09-07 15:20:15 Memori al [place] Weight 2013-09-08 14:22:12 [facility] [place] Temperature Oral (F) 2013-09-08 14:22:12 98.0 F [facility] [place] Heart Rate 2013-09-08 14:22:12 [facility] [place] Systolic (mm Hg) 2013-09-08 14:22:12 Mariano rial [place] Diastolic (mm Hg) 2013-09-08 14:22:12 Mem orial [place] Systolic (mm Hg) 2013-08-31 15:43:31 Mariano rial [place] Diastolic (mm Hg) 2013-08-31 15:43:31 Mem orial [place] Heart Rate 2013-08-31 15:43:31 [facility] [place] Weight 2013-08-31 15:43:31 [facility] [place] Weight 2012-06-02 15:36:10 [facility] [place] Height 2012-06-02 15:36:10 [facility] [place] Temperature Oral (F) 2012-06-02 15:36:10 98.4 F [facility] [place] Heart Rate 2012-06-02 15:36:10 [facility] [place] Systolic (mm Hg) 2012-06-02 15:36:10 Mariano rial [place] Diastolic (mm Hg) 2012-06-02 15:36:10 Mem orial [place] Procedures This patient has no known procedures. Encounters Start End Encounter Admission Attending Care Care Encounter Source Date/Time Date/Time Type Type Clinicians Facility Department ID 2018-06-22 Inpatient [facility] [id number] [facility] 07:53:49 2018-06-22 Outpatient [facility] [id number] [facility] 07:53:48 2019-12-30 2019-12-30 [facility] [place] [id number] 08:00:00 23:59:00 Encounter Izzy santana [id number] [place] [id number] [place] [id number] 2019-12-30 2019-12-30 Laboratory 1, Adc Cardio Fac Room [facility] [id number] 08:46:43 09:34:19 Only Pc, Adc Echo Room 1 - [place] 350.1.1 3.10 [place] [id number] [facility] [id number] [facility] 2019-11-16 2019-11-16 Office [facility] [id number] 10:48:20 11:08:20 Visit Izzy [facility] [id number] [facility] [id number] [place] [id number] [facility] 2012-04-07 2012-04-07 Outpatient [facility] IE [id number] 15:40:31 15:40:14 2012-03-08 2012-03-08 Outpatient [facility] MHIE [id number] 13:29:27 13:29:12 2012-02-04 2012-02-04 Outpatient [facility]IE MHIE [id number] 11:20:09 11:19:53 2012-01-31 2012-01-31 Outpatient [facility]IE MHIE [id number] 19:30:42 19:30:26 2012-01-31 2012-01-31 Outpatient [facility] MHIE [id number] 16:34:08 16:33:53 2012-01-31 2012-01-31 Outpatient [facility]IE MHIE [id number] 14:49:27 14:49:11 Results Test Description Test Time [...] code = BUN/CREAT) 9 1 6-25 [facility] PisahrwOwhcpynll9346-56-36 14:45:003.6[facility] 2012-10-23 14:45:009.0[facility] LxumeszTfgeqeizx9649-82-73 14:45:0021[facility] TgjegcdOnpgobpdb4768-23-53 14:45:009[facility] OzvpbsfXwukcpqok4728-56-02 14:45:00 67[facility] NaeetinKzczrthmdd5614-63-49 14:45:0013.2[facility] 2012-10-23 14:45:0041.5[facility] ItwajnpIesdabgycz1637-15-95 14:45:40973 K/CMM [facility] QbhnqnbVhwlvuqst1777-83-87 21:12:005.1[facility] 2012-06-04 21:12:35053Kcfzxhoa NmpigwbUpjranuin4090-09-18 21:12:78036Xvlhdzkt NmuyhirLlrdbbfbg7088-42-23 21:12:0037[facility] ZklupsmKwxmchafu8460-85-41 21:12:58110Eaehxgin SuaggorMhlcgttsj0003-57-53 21:12:59286 MEQ/L[facility] [place] Krihrjmhm7733-31-26 21:12:004.6 MEQ/LMemorial DpxatjiNxtcktdte8670-42-00 21:12:007.4[facility] XyhwbptSlvnhojbu5199-26-18 21:12:0053[facility] [place] Xpddtmzhd0132-82-56 21:12:00 Test Item Value Reference Range Interpretation Comments BUN/CREAT (test code = BUN/CREAT) 7 1 6-25 [facility] HsjcqlsXmdnhjyxe7839-16-20 21:12:002.2[facility] 2012-06-04 21:12:007.2[facility] NjhukliWuqjamdaz2921-64-68 21:12:0024[facility] DdauvddXggzgcvci9507-90-94 21:12:0027[facility] CczqzinOoqornvhb8224-83-54 21:12:0066[facility] ZpkpcahGxtknoacq5588-59-65 21:12:005.1[facility] [place] Cvzlbrxal5943-85-76 21:12:56069Mapfwpay PblrlwvIjztegnse2900-77-87 21:12:49338 [facility] YbawsmoZrevlbwls7418-37-18 21:12:0037[facility] 2012-06-04 21:12:48408Auhvkhtt BtdkddxVpuzxfoip3437-84-00 21:12:02638 MEQ/L Memorial TijwsqeZefcmgtyd4676-01-70 21:12:004.6 [facility] 2012-06-04 21:12:007.4[facility] RaoijvxMpjirbexa8479-97-79 21:12:0053[facility] ByzguxjNiiqiosfc3626-99-52 21:12:00 Test Item Value Reference Range Interpretation Comments BUN/CREAT (test code = BUN/CREAT) 7 1 09-08 [facility] SjbuqwqGhrxyhqtg9487-60-56 21:12:002.2[facility] 2012-06-04 21:12:007.2[facility] GymytspWpcrfimpx2528-29-50 21:12:0024[facility] GigadcvLunlyyraq2069-70-92 21:12:0027[facility] ZoxrrgoEbrniywac2976-38-24 21:12:0066[facility] EhyurafHsdbpglapr2431-52-52 21:12:007.9[facility] [place] Turxtyiavw3426-86-14 21:12:0023.7[facility] KntoqcnSjdintarvh7987-88-38 21:12:00 289 K/CMMMemorial YkycrrhKbhisvekel4419-12-46 21:12:007.9[facility] [place] Eqizysqnae6736-07-24 21:12:0023.7[facility] BsiztkgFinsyukkqh1697-94-86 21:12:00 289 K/CMMMemorial LpzxehmDojgeyquf9528-11-58 20:28:006.9[facility] [place] Hxxlpzraf2665-42-74 20:28:001.420[facility] UacoamzCvupcmagp5115-54-23 20:28:61254 Memorial AbwyzjwIqphqnpvn1457-48-16 20:28:79081Umslbqko HermannChemistry 2011-11-12 20:28:0054Mem[facility] LyxwafnVbvjrzner2973-01-35 20:28:88339Ymkzialu IwxrsjuSsspngmvq9945-73-47 20:28:95175 MEQ/LMemorial TnuuspaYytzyfxbr8459-47-99 20:28:004.7 MEQ/LMemorial GaebvrlFtinvgjxe2717-95-25 20:28:004.9[facility] [place] Qeiufxvmy7147-15-84 20:28:0063[facility] OharbbtDdubkvpjn4043-35-78 20:28:00 Test Item Value Reference Range Interpretation Comments BUN/CREAT (test code = BUN/CREAT) 13 1 09-08 Memorial VzrmledCdiirwiiy3365-75-92 20:28:001.8[facility] 2011-11-12 20:28:007.6[facility] TdfipgkSjccxdzfy9707-33-30 20:28:0017[facility] FudwyupXghvfgial1318-14-33 20:28:0014Mem[facility] FqeybceHjjhuzhkz0568-82-22 20:28:0068[facility] [place]
--- OUTSIDE RECORDS SUMMARY | 2020-02-27 14:16 | XMS REPORT | Summary of Care ---
:1975 Author Organization [facility] Address [address] [place] [id number] Care Team Providers Name Role Phone Rojas Mccoy DO Hall Clerk Erika Primary Care Provider Reason for Referral MRI/CAT Scan (AKIL) Status Reason Specialty Diagnoses / Referred By Referred To Procedures Contact Contact Closed Diagnostic Diagnoses Pre-transplant evaluation for kidney transplant Hakeem-Hong, Radiology Procedures CT ABDOMEN PELVIS W WO CONTRAST Izzy Roque MD [address] [address] Reason for Visit MRI/CAT Scan (AKIL) Status Reason Specialty Diagnoses / Referred By Referred To Procedures Contact Contact Closed Diagnostic Diagnoses Pre-transplant evaluation for kidney transplant Hakeem-Kevino, Radiology Procedures CT ABDOMEN PELVIS W WO CONTRAST Izzy Roque MD 301 [facility] [id number] [place] [address] Encounter Details Date Type Department Care Team Description 12/30/2019 Hospital Encounter [facility]ly [facility] Izzy Mcelroy MD Tomography [address] carmona [id number] [place] [address] [place], [place] [phone] [address] [phone] Allergies Active Allergy Reactions Severity Noted Date Comments Promethazine Hcl Anxiety Low 10/08/2016 "jumpy" documented as of this encounter (statuses as of 12/31/2019) Medications Medication Sig Dispensed Refills Start Date [...] as of this encounter (statuses as of 12/31/2019) Active Problems Problem Noted Date Obesity (BMI 30-39.9) 07/23/2018 Hypertension 03/17/2014 Cataract 03/17/2010 Overview: fixed bilaterally DM (diabetes mellitus) 03/17/1992 Nephropathy IBS (irritable bowel syndrome) Gastroparesis ESRD (end stage renal disease) on dialysis Secondary hyperparathyroidism of renal origin Retinopathy documented as of this encounter (statuses as of 12/31/2019) Immunizations Name Administration Dates Next Due Hep [...] Assigned at Date Recorded Not on file documented as of this encounter Last Filed Vital Signs Not on filedocumented in this encounter Plan of Treatment Date Type Specialty Care Team Description 01/14/2020 Office Visit Cardiology Mariposa Crawford MD [address] [place] [phone] Health Maintenance Due Date Last Done Comments EYE EXAM 1986 FOOT EXAM 1994 DTaP,Tdap,and Td Vaccines (1 - 1995 Tdap) PNEUMOCOCCAL 0-64 YEARS COMBINED 07/07/2015 05/12/2015, 07/2012 SERIES (2 of 3 - PPSV23) LDL-C 10/08/2017 10/08/2016 CREATININE (SERUM) 07/22/2019 07/21/2018, 10/08/2016 INFLUENZA VACCINE (#1) 2019 11/27/2016, 12/05/2014, 11/15/2013, Additional history exists Depression Screening 02/03/2020 02/02/2019 HgA1C 05/15/2020 11/16/2019, 12/04/2017, 10/08/2016 documented as of this encounter Procedures Procedure Name Priority Date/Time Associated Comments Diagnosis CT ABDOMEN PELVIS W AKIL 12/30/2019 8:41 AM Pre-transplant Results for this WO CONTRAST CDT evaluation for procedure are in kidney transplant the result s section. HB CREATININE BLOOD Routine 12/30/2019 8:23 AM R esults for this CDT procedure are i n the results section. CONSENT/REFUSAL FOR Routine 12/30/2019 8:02 AM DIAGNOSIS AND CDT TREATMENT ASSIGNMENT OF Routine 12/30/2019 8:02 AM BENEFITS CDT documented in this encounter Results CT ABDOMEN PELVIS W WO CONTRAST (12/30/2019 8:41 AM CDT) Specimen Narrative Performed At HISTORY: Pretransplant evaluation PACS/VR/DOSE TECHNIQUE: Initially noncontrast enhance d CT scan of the abdomen, pelvis and upper legs up to the knees were obta ined. Subsequently Contrast-enhanced 64-Multidetector CT an giogram studies of abdomen/pelvis/lower extremities up to t he knees were performed. Subsequently multiple 3-D reformations using MIP proce ssing technique have been generated from the 3-D volume data set. FINDINGS: ABDOMINAL ARTERIOGRAM: Extensive arteriosclerosis is n oted throughout the aorta, renal arteries and its branches a nd other major intra-abdominal arteries. No high-grade strictures detected at the marcelina gin of celiac, SMA or SANJUANITA arteries. Diffuse moderate disease noted in the le ft renal artery, less in the right renal artery. Multiple cyst ic lesions are seen in both kidneys. No gross pathology in the liver , spleen, pancreas. Bilateral adrenal gland hypertrophy and short slid ing hiatal hernia noted. Mild cardiomegaly, dense mitral annular calcification and faint calcification in the visualized coronary arteries note d. Normal appendix is visualized. Moderate diverticulosis of t he sigmoid and descending colon noted without any acute changes of diver ticulitis. Irregular shaped 4 cm size umbilical hernia noted cont aining fat and some additional fibrosis nonspecific tissue w ithout any complications. PELVIC ARTERIOGRAM: Metallic stents noted in both exte rnal iliac arteries. Moderate atherosclerosis noted in international guest coordinator al iliac arteries and their branches, mild diffuse atherosclerosis i s noted in the common iliac arteries.. RIGHT UPPER LEG ARTERIOGRAM: Extensive atherosclerosis noted with multiple calcified plaques in the common femoral, superficial f emoral, deep femoral, or small and visualized medium arteries in the thigh, popliteal artery and proximal runoff arteries. Multiple stric tures are seen in the distal superficial femoral arteries, none appea r to be high-grade. LEFT UPPER LEG ARTERIOGRAM: Stented atherosclerosis is noted with calcified common femoral, superficial femoral, norbert p femoral, popliteal, major arterial branches in the thigh and runoff circulation. Several strictures of moderate severity are detected in mid dle and distal SFA. Incidental note made of prominent Schmor l's nodes in the vertebral endplates of L3, L4, L2, L1 and shallow Schmorl's nodes in some of the other vertebral bodies with mild diffuse sclerosis of the bones, likely secondary to renal osteodystrophy. CONCLUSIONS: 1. Extensive arteriosclerosis in the abdominal aorta, pelvic and bilateral upper leg arteries with calcifications in the large, m edium and small size arteries. 2. Moderate grade strictures are seen in the middle segment of left SFA, slightly less severe strictures are seen in the distal right and left SFA arteries. Procedure Note [facility], Radiant Results Inft User - 2019 8:58 AM CDT HISTORY: Pretransplant evaluation TECHNIQUE: Initially noncontrast enhance d CT scan of the abdomen, pelvis and upper legs up to the knees were obta ined. Subsequently Contrast-enhanced 64-Multidetector CT an giogram studies of abdomen/pelvis/lower extremities up to t he knees were performed. Subsequently multiple 3-D reformations u sing MIP processing technique have been generated from the 3-D volume data set. FINDINGS: ABDOMINAL ARTERIOGRAM: Extensive arterio sclerosis is noted throughout the aorta, renal arteries and its branches a nd other major intra-abdominal arteries. No high-grade strictures detec mannie at the origin of celiac, SMA or SANJUANITA arteries. Diffuse moderate disease n oted in the left renal artery, less in the right renal artery. Multiple cyst ic lesions are seen in both kidneys. No gross pathology in the liver , spleen, pancreas. Bilateral adrenal gland hypertrophy and short slid ing hiatal hernia noted. Mild cardiomegaly, dense mitral annular calcification and faint calcification in the visualized coronary arteries noted. Normal appendix is visualized. Moderate diverticulosis of t he sigmoid and descending colon noted without any acute changes of diver ticulitis. Irregular shaped 4 cm size umbilical her lisy noted containing fat and some additional fibrosis nonspecific tissue w ithout any complications. PELVIC ARTERIOGRAM: Metallic stents note d in both external iliac arteries. Moderate atherosclerosis noted in international guest coordinator al iliac arteries and their branches, mild diffuse atherosclerosis i s noted in the common iliac arteries.. RIGHT UPPER LEG ARTERIOGRAM: Extensive a therosclerosis noted with multiple calcified plaques in the common femoral, superficial femoral, deep femoral, or small and visualized medium arteries in the thigh, popliteal artery and proximal runoff arteries. Multiple stric tures are seen in the distal superficial femoral arteries, none appea r to be high-grade. LEFT UPPER LEG ARTERIOGRAM: Stented athe rosclerosis is noted with calcified common femoral, superficial femoral, norbert p femoral, popliteal, major arterial branches in the thigh and runof f circulation. Several strictures of moderate severity are detected in mid dle and distal SFA. Incidental note made of prominent Schmor l's nodes in the vertebral endplates of L3, L4, L2, L1 and shallow Schmorl's nodes in some of the other vertebral bodies with mild diffuse sclerosis of the bones, likely secondary to renal osteodystrophy. CONCLUSIONS: 1. Extensive arteriosclerosis in the abd ominal aorta, pelvic and bilateral upper leg arteries with calcifications i n the large, medium and small size arteries. 2. Moderate grade strictures are seen in the middle segment of left SFA, slightly less severe strictures are seen in the distal right and left SFA arteries. Performing Organization Address City/State/Zipcode Phone Number PACS/VR/DOSE POCT CREATININE (12/30/2019 8:23 AM CDT) [facility] POCT Creatinine 8.4 (H) 0.6 - 1.3 mg/dL [facility] Specimen Blood - VENOUS Performing Organization Address City/State/Zipcode Phone Number [facility] CLIA: [id number] [place] [address] documented in this encounter Visit Diagnoses Diagnosis Pre-transplant evaluation for kidney tra nsplant documented in this encounter Administered Medications Medication Order MAR Action Action Date Dose Rate Site iohexol (OMNIPAQUE 350 BULK-150 Given 12/30/2019 8:31 AM CDT 15 0 mL mL) injection 150 mL 150 mL, Intravenous, ONCE, 1 dose, Cora 12/30/19 at 0845, Routine documented in this encounter Insurance Payer Benefit Plan / Subscriber ID Effective Phone Address T ype Group Dates MEDICARE MEDICARE PART [id number] 2012-Pres [phone] Medicare A & B ent [phone] [place] [id number] COMMERCIAL COMMERCIAL [id number] 2016-Pre HMO /PPO/POS NON-CONTRACT NON-CONTRACT sent GENERIC GENERIC documented as of this encounter
--- OUTSIDE RECORDS SUMMARY | 2020-02-27 14:16 | XMS REPORT | Summary of Care ---
:1975 Author Organization [facility] Address [address] [place] [id number] Care Team Providers Name Role Phone Rojas Mccoy DO Heating Fixture Tender Erika Primary Care Provider Reason for Visit (Routine) Status Reason Specialty Diagnoses / Procedures Referred By Elana suherred To Contact Contact Closed Cardiology Diagnoses Essential hypertension Pulmonary hypertension Nonobstructive atherosclerosis of coronary artery ESRD (end stage renal disease) on dialysis Atypical chest pain Crawford, Sendil Procedures ECHO ROUTINE W/DOPPLER COLOR Preferred Location: [facility] MD Ene [address] [place] [address] Encounter Details Date Type Department Care Team Description 12/30/2019 Laboratory Only [facility] Sarah Lewis M D [address] [place] [address] Essential hypertension; Cardiology- 1, Adc Cardio Fac Room Pulmonary hypertension; [facility], Adc Echo Room 1 - Nonobstructive atherosclerosis of rodrigues ry artery; [facility]D (end st age renal disease) on dialysis; Drive, [address] [place] [address] Allergies Active Allergy Reactions Severity Noted Date Comments Promethazine Hcl Anxiety Low 10/08/2016 "jumpy" documented as of this encounter (statuses as of 12/30/2019) Medications Medication Sig Dispensed Refills Start Date [...] as of this encounter (statuses as of 12/30/2019) Active Problems Problem Noted Date Obesity (BMI 30-39.9) 07/23/2018 Hypertension 03/17/2014 Cataract 03/17/2010 Overview: fixed bilaterally DM (diabetes mellitus) 03/17/1992 Nephropathy IBS (irritable bowel syndrome) Gastroparesis ESRD (end stage renal disease) on dialysis Secondary hyperparathyroidism of renal origin Retinopathy documented as of this encounter (statuses as of 12/30/2019) Immunizations Name Administration Dates Next Due Hep [...] Sign Reading Time Taken Comments Blood Pressure 179/94 12/30/2019 8:59 AM CDT Pulse 58 12/30/2019 8:59 AM CDT Temperature - - Respiratory Rate - - Oxygen Saturation - - Inhaled Oxygen Concentration - - Weight 93 kg (205 lb) 12/30/2019 8:59 AM CDT Height 167.6 cm (5' 6") 12/30/2019 8:59 AM CDT Body Mass Index 33.09 12/30/2019 8:59 AM CDT documented in this encounter Plan of Treatment Date Type Specialty Care Team Description 01/14/2020 Office Visit Cardiology Mariposa Crawford MD [address] [place] [address] [place] [phone] Health Maintenance Due Date Last Done [...] 12/04/2017, 10/08/2016 documented as of this encounter Results Not on filedocumented in this encounter Visit Diagnoses Diagnosis Essential hypertension Unspecified essential hypertension Pulmonary hypertension Other chronic pulmonary heart diseases Nonobstructive atherosclerosis of rodrigues ry artery ESRD (end stage renal disease) on dialys is End stage renal disease Atypical chest pain Other chest pain documented in this encounter Insurance Payer Benefit Plan / Subscriber ID Effective Phone Address T ype Group Dates MEDICARE MEDICARE PART [id number] 2012-Pres [phone] Medicare A & B ent [id number] [place] [id number] COMMERCIAL COMMERCIAL [id number] 2016-Pre HMO /PPO/POS NON-CONTRACT NON-CONTRACT sent GENERIC GENERIC documented as of this encounter
[2020-02-27 15:19] LABS: Absolute Lymphocytes (CBC) 1.4 K/uL (0.7-4.9); Basophils % 0.7 % (0-1.3); Hematocrit 28.6 % (39.6-49.0); Lymphocytes % 17.8 % (15.3-44.8); MPV 8.3 fL (7.6-11.3); RBC Red Blood Cell Count 3.18 M/uL (4.33-5.43)
[2020-02-27] MEDS ORDERED: FAMOTIDINE 20 MG/2 ML VIAL IV ONE (15:26)
[2020-02-27 15:47] LABS: Albumin 2.9 g/dL (3.4-5.0); Bilirubin Direct 0.2 mg/dL (0-0.2); Bilirubin Total 0.4 mg/dL (0.2-1.0); Magnesium 2.5 mg/dL (1.8-2.4); Protein, Total 7.7 g/dL (6.4-8.2)
[2020-02-27 15:50] LABS: Potassium 5.7 mmol/L (3.5-5.1)
[2020-02-27] MEDS ORDERED: D50W 50 ML IV ONE (16:26)
[2020-02-27] MEDS ORDERED: SOD POLYSTYREN SUL 15 GM/60 ML UCUP ONE (16:26)
[2020-02-27] MEDS ORDERED: INSULIN -REGULAR HUMAN 50 UNIT/0.5 ML ML ONE (16:26)
[2020-02-27] MEDS ORDERED: NA CHLORIDE 0.9% 250 ML ONE (16:27)
[2020-02-27 18:03] LABS: Potassium 5.1 mmol/L (3.5-5.1)
--- NOTE | 2020-02-27 18:13 | ER ---
Nurse's Notes [facility] Name: Chase Chacon Jr Age: 44 yrs Sex: Male : 1975 Arrival Date: 02/27/2020 Time: 14:12 Bed 7 Private MD: Diagnosis: Hyperkalemia;Chronic kidney disease (CKD);Nausea and vomiting Presentation: 02/26 14:25 Chief complaint: Patient states: N/V x 2 weeks. I told my PCP, was prescribed meds for ca1 my restless leg, but was not prescribed Phenergan. Had 6 episodes yesterday and 4 - 5 episodes of vomiting today. Denies pain at this time. Coronavirus screen: Client denies travel out of the [place] in the last 14 days. nausea, vomiting. Client presents with at least one sign or symptom that may indicate coronavirus-19. Standard/surgical mask placed on the client. Provider contacted for isolation considerations. The client reports previous COVID testing was negative. Date of collection: January 2020. Ebola Screen: Patient negative for fever greater than or equal to 101.5 degrees Fahrenheit, and additional compatible Ebola Virus Disease symptoms Patient denies exposure to infectious person. Patient denies travel to an Ebola-affected area in the 21 days before illness onset. No symptoms or risks identified at this time. Initial Sepsis Screen: Does the patient meet any 2 criteria? No. Patient's initial sepsis screen is negative. Does the patient have a suspected source of infection? No. Patient's initial sepsis screen is negative. Risk Assessment: Do you want to hurt yourself or someone else? Patient reports no desire to harm self or others. Onset of symptoms was February 27, 2020. 14:25 Method Of Arrival: Ambulatory ca1 14:25 Acuity: LEON 3 ca1 Historical: - Allergies: 14:28 Phenergan; ca1 - PMHx: 14:28 Cataracts; Diabetes - NIDDM; Dialysis; M/W/F; ESRD; Gastroparesis; Hypertension; kidney ca1 disease; - PSHx: 14:28 Left arm fistula; ca1 - Immunization history:: Adult Immunizations up to date, Flu vaccine is up to date. - Social history:: Smoking status: Patient denies any tobacco usage or history of. Screenin:16 Abuse screen: Denies threats or abuse. Denies injuries from another. Nutritional jl7 screening: No deficits noted. Tuberculosis screening: No symptoms or risk factors identified. Fall Risk IV access (20 points). Mental Status- Oriented to own ability (0 pts). Total Cerda Fall Scale indicates No Risk (0-24 pts). Assessment: 15:00 General: Appears in no apparent distress. uncomfortable, Behavior is cooperative, jl7 appropriate for age, anxious. Pain: Denies pain. Neuro: Level of Consciousness is awake, alert, obeys commands, Oriented to person, place, time, situation. Cardiovascular: Patient's skin is warm and dry. Respiratory: Airway is patent Respiratory effort is even, unlabored, Respiratory pattern is regular, symmetrical. GI: Abdomen is non-distended, Reports intermittent nausea/vomiting since yesterday. Derm: Skin is pink, warm \T\ dry. Vital Signs: 14:25 BP 186 / 74; Pulse 82; Resp 16 S; Temp 97.2(TE); Pulse Ox 96% on R/A; Weight 90.72 kg ca1 (R); Height 5 ft. 6 in. (167.64 cm) (R); Pain 0/10; 14:30 BP 170 / 87; Pulse 75; Resp 17; Pulse Ox 99% ; Pain 0/10; jl7 15:31 BP 152 / 88; Pulse 78; Resp 17; Pulse Ox 97% ; jl7 17:35 BP 168 / 76; Pulse 72; Resp 17; Pulse Ox 99% ; jl7 14:25 Body Mass Index 32.28 (90.72 kg, 167.64 cm) ca1 ED Course: 14:12 Patient arrived in ED. ag5 14:20 Sunny Truong PA is PHCP. cp 14:20 Sunny Lake MD is Attending Physician. cp 14:27 Triage completed. ca1 14:28 Arm band placed on right wrist. ca1 14:56 Jj Saba, JENNIE is Primary Nurse. jl7 15:00 Initial lab(s) drawn, by me, sent to lab. Inserted saline lock: 20 gauge in right jl7 wrist, using aseptic technique. Blood collected. 15:16 Patient has correct armband on for positive identification. Bed in low position. Call jl7 light in reach. Side rails up X 1. Pulse ox on. NIBP on. Administered Medications: 15:14 Not Given (Patient Refused): Zofran (Ondansetron) 4 mg IVP once; over 2 minutes jl7 15:14 Drug: Pepcid 20 mg Route: IVP; Site: right wrist; jl7 17:30 Follow up: Response: No adverse reaction jl7 16:17 Drug: NS 0.9% 250 ml Route: IV; Rate: calculated rate; Site: right wrist; jl7 17:00 Follow up: Response: No adverse reaction; IV Status: Completed infusion; IV Intake: jl7 250ml 16:18 Drug: D50W 50 ml Route: IVP; Site: right wrist; jl7 17:29 Follow up: Response: No adverse reaction jl7 16:20 Drug: Insulin Regular Human 5 units {Co-Signature: iw (Keiry Olea RN).} Route: IVP; jl7 Site: right wrist; 17:29 Follow up: Response: No adverse reaction jl7 16:24 Drug: Kayexalate 45 grams Route: PO; jl7 17:29 Follow up: Response: No adverse reaction jl7 Intake: 17:00 IV: 250ml; Total: 250ml. jl7 Outcome: 18:12 Discharge ordered by MD. calvillo 18:35 Patient left the ED. em1 Signatures: Michele Swan em1 Sunny Truong PA PA cp Leal, Jahala, RN RN jl7 Vilma Gomez RN RN ca1 Ramy Lugo 5 Keiry juarez
--- NOTE | 2020-02-27 18:13 | EDPHYS ---
Physician Documentation [facility] Name: Chase Chacon Jr Age: 44 yrs Sex: Male : 1975 Arrival Date: 02/27/2020 Time: 14:12 Bed 7 Private MD: ED Physician Sunny Lake HPI: 02/26 14:42 This 44 yrs old Male presents to ER via Ambulatory with complaints of cp Nausea/Vomiting. 14:42 The patient presents to the emergency department with vomiting, that is intermittent. cp 14:42 Onset: The symptoms/episode began/occurred 2 week(s) ago. cp 14:42 Possible causes: unknown. Associated signs and symptoms: Pertinent positives: nausea, cp Pertinent negatives: abdominal pain, constipation, diarrhea, fever, GI bleeding, active vomiting. Historical: - Allergies: 14:28 Phenergan; ca1 - PMHx: 14:28 Cataracts; Diabetes - NIDDM; Dialysis; M/W/F; ESRD; Gastroparesis; Hypertension; kidney ca1 disease; - PSHx: 14:28 Left arm fistula; ca1 - Immunization history:: Adult Immunizations up to date, Flu vaccine is up to date. - Social history:: Smoking status: Patient denies any tobacco usage or history of. ROS: 14:50 Constitutional: Negative for body aches, chills, fever, poor PO intake. cp 14:50 Eyes: Negative for injury, pain, redness, and discharge. cp 14:50 ENT: Negative for ear pain, sore throat, difficulty swallowing, difficulty handling secretions. 14:50 Cardiovascular: Negative for chest pain. 14:50 Respiratory: Negative for cough, shortness of breath, wheezing. 14:50 Abdomen/GI: Positive for nausea and vomiting, Negative for abdominal pain, constipation. 14:50 Back: Negative for radiated pain. 14:50 Neuro: Negative for altered mental status, headache, weakness. 14:50 All other systems are negative. Exam: 14:55 Constitutional: The patient appears in no acute distress, alert, awake, comfortable, cp non-diaphoretic, non-toxic, well developed, well nourished. 14:55 Head/Face: Normocephalic, atraumatic. cp 14:55 Eyes: Periorbital structures: appear normal, Conjunctiva: normal, no exudate, no injection, Sclera: no appreciated abnormality, Lids and lashes: appear normal, bilaterally. 14:55 ENT: External ear(s): are unremarkable, Nose: is normal, Posterior pharynx: Airway: no evidence of obstruction, patent. 14:55 Chest/axilla: Inspection: normal, Palpation: is normal, no crepitus, no tenderness. 14:55 Cardiovascular: Rate: normal. 14:55 Respiratory: the patient does not display signs of respiratory distress, Respirations: normal, no use of accessory muscles, labored breathing, is not present, Breath sounds: are clear throughout, no decreased breath sounds. 14:55 Abdomen/GI: Inspection: abdomen appears normal, Bowel sounds: active, all quadrants, Palpation: abdomen is soft and non-tender, in all quadrants. 14:55 Back: pain, is absent, ROM is normal. 14:55 Neuro: Orientation: to person, place \T\ time. Mentation: is normal. Vital Signs: 14:25 BP 186 / 74; Pulse 82; Resp 16 S; Temp 97.2(TE); Pulse Ox 96% on R/A; Weight 90.72 kg ca1 (R); Height 5 ft. 6 in. (167.64 cm) (R); Pain 0/10; 14:30 BP 170 / 87; Pulse 75; Resp 17; Pulse Ox 99% ; Pain 0/10; jl7 15:31 BP 152 / 88; Pulse 78; Resp 17; Pulse Ox 97% ; jl7 17:35 BP 168 / 76; Pulse 72; Resp 17; Pulse Ox 99% ; jl7 14:25 Body Mass Index 32.28 (90.72 kg, 167.64 cm) ca1 MDM: 14:22 Patient medically screened. cp 18:11 Data reviewed: vital signs, nurses notes, lab test result(s), and as a result, I will cp discharge patient. 18:11 Counseling: I had a detailed discussion with the patient and/or guardian regarding: the cp historical points, exam findings, and any diagnostic results supporting the discharge/admit diagnosis, lab results, to return to the emergency department if symptoms worsen or persist or if there are any questions or concerns that arise at home. Response to treatment: the patient's symptoms have markedly improved after treatment, Nausea improved. No vomiting observed while monitoring patient in ED. 02/26 14:36 Order name: Basic Metabolic Panel; Complete Time: 15:51 cp 02/26 15:51 Interpretation: Normal except: CL 97; GLUC 154; BUN 73; K 5.7; CRE 11.20; GFR 5. cp 02/26 14:36 Order name: CBC with Diff; Complete Time: 15:50 cp 02/26 15:50 Interpretation: Normal except: RBC 3.18; HGB 9.9; HCT 28.6. cp 02/26 14:36 Order name: Hepatic Function; Complete Time: 15:51 cp 02/26 14:36 Order name: Lipase; Complete Time: 15:51 cp 02/26 14:36 Order name: Magnesium; Complete Time: 15:51 cp 02/26 17:34 Order name: Basic Metabolic Panel; Complete Time: 18:10 jl7 02/26 14:36 Order name: IV Saline Lock; Complete Time: 15:09 cp 02/26 14:36 Order name: Labs collected and sent; Complete Time: 15:09 cp Administered Medications: 15:14 Not Given (Patient Refused): Zofran (Ondansetron) 4 mg IVP once; over 2 minutes jl7 15:14 Drug: Pepcid 20 mg Route: IVP; Site: right wrist; jl7 17:30 Follow up: Response: No adverse reaction jl7 16:17 Drug: NS 0.9% 250 ml Route: IV; Rate: calculated rate; Site: right wrist; jl7 17:00 Follow up: Response: No adverse reaction; IV Status: Completed infusion; IV Intake: jl7 250ml 16:18 Drug: D50W 50 ml Route: IVP; Site: right wrist; jl7 17:29 Follow up: Response: No adverse reaction jl7 16:20 Drug: Insulin Regular Human 5 units {Co-Signature: iw (Keiry Olea RN).} Route: IVP; jl7 Site: right wrist; 17:29 Follow up: Response: No adverse reaction jl7 16:24 Drug: Kayexalate 45 grams Route: PO; jl7 17:29 Follow up: Response: No adverse reaction jl7 Disposition: 02/27 10:53 Co-signature as Attending Physician, Sunny Lake MD I agree with the assessment and ralph plan of care. Disposition: 02/27/20 18:12 Discharged to Home. Impression: Hyperkalemia, Chronic kidney disease (CKD), Nausea and vomiting. - Condition is Stable. - Discharge Instructions: Hyperkalemia, Nausea and Vomiting, Adult, Dialysis Diet. - Prescriptions for promethazine 25 mg Oral Tablet - take 1 tablet by ORAL route every 6 hours As needed; 20 tablet. - Medication Reconciliation Form, Thank You Letter, Antibiotic Education, Prescription Opioid Use form. - Follow up: Private Physician; When: 1 - 2 days; Reason: Recheck today's complaints. - Problem is new. - Symptoms have improved. Signatures: Dispatcher [employer] EDSunny Stanford MD MD cha Martinez, Michele em1 Sunny Truong PA PA cp Leal, Jahala, RN RN jl7 Vilma Gomez RN RN ca1 Irene Williams RN iw Corrections: (The following items were deleted from the chart) 02/26 18:35 18:12 02/27/2020 18:12 Discharged to Home. Impression: Hyperkalemia; Chronic kidney em1 disease (CKD); Nausea and vomiting. Condition is Stable. Forms are Medication Reconciliation Form, Thank You Letter, Antibiotic Education, Prescription Opioid Use. Follow up: Private Physician; When: 1 - 2 days; Reason: Recheck today's complaints. Problem is new. Symptoms have improved. cp
[2020-03-02 02:18] VITALS: TEMP 97.2
[2020-03-02 02:22] VITALS: BP 168/76; O2SAT 99
== END 2020-02-27 18:35 | disposition home or self-care (01) ==
LOC: ER 14:11
DX: E87.5 Hyperkalemia (principal); E11.22 Type 2 diabetes mellitus with diabetic chronic kidney disease; I12.0 Hypertensive chronic kidney disease with stage 5 chronic kidney disease or end stage renal disease; N18.6 End stage renal disease; Z99.2 Dependence on renal dialysis; Z88.8 Allergy status to other drugs, medicaments and biological substances
CPT/HCPCS: 85025; 80048 ×2; 36415; 83735; 80076; 83690; J7050; 96365; 96375; 99284

== ENCOUNTER 2020-03-29 03:56 | Observation (INO) | payer OTHER ==
--- NOTE | 2020-03-29 05:33 | ER ---
Nurse's Notes [facility] Name: Chase Chacon Jr Age: 44 yrs Sex: Male : 1975 Arrival Date: 03/29/2020 Time: 04:14 Bed 2 Private MD: Diagnosis: Altered mental status. Hypoglycemia. Chronic renal disease. Volume overload. On dialysis Presentation: 03/29 04:18 Chief complaint: EMS states: Toned out for low blood glucose, EMS noted pt to be cold ea clammy and unresponsive. Coronavirus screen: At this time, the client does not indicate any symptoms associated with coronavirus-19. Ebola Screen: No symptoms or risks identified at this time. Initial Sepsis Screen: Does the patient meet any 2 criteria? Temp <36.0*C (96.8*F)) or > 38.3*C (100.9*F). Does the patient have a suspected source of infection? No. Patient's initial sepsis screen is negative. Risk Assessment: Do you want to hurt yourself or someone else? Patient reports no desire to harm self or others. Onset of symptoms was March 29, 2020. 04:18 Acuity: LEON 3 ea 04:18 Method Of Arrival: EMS: [facility] ea Historical: - Allergies: 04:23 No Known Allergies; ea - PSHx: 04:23 Left arm fistula; ea - Immunization history:: Adult Immunizations unknown. - Social history:: Smoking status: unknown. Screenin:17 Abuse screen: Denies threats or abuse. Nutritional screening: No deficits noted. ea Tuberculosis screening: No symptoms or risk factors identified. Fall Risk IV access (20 points). Assessment: 04:20 General: Appears obese, Behavior is unresponsive. Pain: Unable to use pain scale. FLACC ea scale score is 0 out of 10. Neuro: Level of Consciousness is lethargic, pt responds to painful stimulus is unable to follow commands . Oriented to none. Cardiovascular: Patient's skin is warm and dry. Respiratory: Airway is patent Respiratory effort is even, unlabored, Respiratory pattern is regular, symmetrical. Derm: Skin is clammy, Skin is pale, Skin temperature is cool. 11:39 Reassessment: PT D/C HOME FROM [facility]. bp Vital Signs: 04:16 BP 158 / 132; Pulse 69; Resp 22; Temp 96.7; Pulse Ox 92% on R/A; ea 05:51 BP 138 / 66; Pulse 70; Resp 18; Pulse Ox 99% ; ea 05:51 Temp 97.4; ea 04:16 placed on O2 at 2L ea ED Course: 04:14 Patient arrived in ED. sg 04:16 Karuna Malik, RN is Primary Nurse. ea 04:17 Akhil Coleman MD is Attending Physician. pkl 04:17 Patient has correct armband on for positive identification. Placed in gown. Bed in low ea position. Call light in reach. Side rails up X2. cook italian style food on. Pulse ox on. NIBP on. 04:20 Triage completed. ea 04:20 Arm band placed on right wrist. Patient placed in an exam room, on a stretcher, on ea lpn, on pulse oximetry. EKG completed in triage. Results shown to MD. 05:02 Larry Bolivar MD is Hospitalizing Provider. pkl 05:49 No provider procedures requiring assistance completed. Patient admitted, IV remains in ea place. 07:17 Primary Nurse role handed off by Karuna Malik RN 07:26 Surinder Gagnon, JENNIE is Primary Nurse. bp Administered Medications: 04:00 Drug: D50W 50 ml Route: IVP; Site: right forearm; sg 05:02 Follow up: Response: No adverse reaction ea 04:10 Drug: D5W 250 ml Route: IVPB; Site: right forearm; rr5 05:32 Drug: D50W 50 ml Route: IVP; Site: right antecubital; ea 05:40 Drug: D50W 50 ml Route: IVP; Site: right antecubital; ea 05:40 Drug: D10 in Water [2 mL/kg] 50 ml Route: IVP; Site: right forearm; ea 05:48 CANCELLED (Other Intervention Used): D10 in Water [2 mL/kg] 50 ml IVP See ea Administration Instructions; 50 mls/hr Outcome: 05:05 Decision to Hospitalize by Provider. pkl 05:49 Admitted to ER Hold. Please see [employer] for further documentation. ea 05:49 Condition: stable 05:49 Instructed on the need for admit, Demonstrated understanding of instructions. 11:40 Patient left the ED. bp Signatures: Sravani Galaviz Steven, RN RN sg Akhil Coleman MD MD pkKaruna Jack, RN RN Surinder Argueta, RN RN Gregory Ortiz RN RN [id number]
--- NOTE | 2020-03-29 05:33 | EDPHYS ---
Physician Documentation [facility] Name: Chase Chacon Jr Age: 44 yrs Sex: Male : 1975 Arrival Date: 03/29/2020 Time: 04:14 Bed 2 Private MD: ED Physician Akhil Coleman HPI: 03/29 04:28 This 44 yrs old Male presents to ER via EMS with complaints of Low Blood Sugar.pkl 04:28 The patient presents with decreased mental status. Onset: The symptoms/episode pkl began/occurred just prior to arrival. Possible causes: low blood sugar. H/O ESRD. Has appt. for dialysis at 0530 this morning. Historical: - Allergies: 04:23 No Known Allergies; ea - PSHx: 04:23 Left arm fistula; ea - Immunization history:: Adult Immunizations unknown. - Social history:: Smoking status: unknown. ROS: 04:28 Eyes: Negative for injury, pain, redness, and discharge, ENT: Negative for injury, pkl pain, and discharge, Neck: Negative for injury, pain, and swelling, Cardiovascular: Negative for chest pain, palpitations, and edema. 04:28 Respiratory: Positive for shortness of breath. 04:28 Abdomen/GI: Negative for abdominal pain, nausea, vomiting, and diarrhea. 04:28 Back: Negative for pain at rest. 04:28 : Negative for urinary symptoms. 04:28 MS/extremity: Negative for acute changes. 04:28 Skin: Negative for rash. 04:28 Neuro: Positive for altered mental status. Exam: 04:28 Head/Face: Normocephalic, atraumatic. Eyes: Pupils equal round and reactive to light, pkl extra-ocular motions intact. Lids and lashes normal. Conjunctiva and sclera are non-icteric and not injected. Cornea within normal limits. Periorbital areas with no swelling, redness, or edema. ENT: Nares patent. No nasal discharge, no septal abnormalities noted. Tympanic membranes are normal and external auditory canals are clear. Oropharynx with no redness, swelling, or masses, exudates, or evidence of obstruction, uvula midline. Mucous membranes moist. Neck: Trachea midline, no thyromegaly or masses palpated, and no cervical lymphadenopathy. Supple, full range of motion without nuchal rigidity, or vertebral point tenderness. No Meningismus. Chest/axilla: Normal chest wall appearance and motion. Nontender with no deformity. No lesions are appreciated. Cardiovascular: Regular rate and rhythm with a normal S1 and S2. No gallops, murmurs, or rubs. Normal PMI, no JVD. No pulse deficits. 04:28 Respiratory: mild respiratory distress is noted, Respirations: labored breathing, that is mild, Breath sounds: rales, that are mild, are scattered. 04:28 Abdomen/GI: Bowel sounds: normal, Palpation: abdomen is soft and non-tender, in all quadrants. 04:28 Back: Exam negative for acute changes. 04:28 : Exam negative for acute changes. 04:28 Musculoskeletal/extremity: Exam is negative for acute changes. 04:28 Skin: Exam negative for rash. 04:28 Neuro: Orientation: unable to test, the patient is comatose, Mentation: unable to follow commands, unable to test, the patient is comatose. Vital Signs: 04:16 BP 158 / 132; Pulse 69; Resp 22; Temp 96.7; Pulse Ox 92% on R/A; ea 05:51 BP 138 / 66; Pulse 70; Resp 18; Pulse Ox 99% ; ea 05:51 Temp 97.4; ea 04:16 placed on O2 at 2L ea MDM: 04:17 Patient medically screened. pkl 05:00 Data reviewed: vital signs, nurses notes, lab test result(s), EKG, radiologic studies, pkl plain films. ED course: Talked to Dr. Bolivar, admit. 03/29 04:15 Order name: FSBG - FOR PT WITH NO ID sg 03/29 04:15 Order name: Glucose sg 03/29 04:20 Order name: Basic Metabolic Panel pkl 03/29 04:20 Order name: CBC with Diff pkl 03/29 04:20 Order name: LFT's pkl 03/29 04:20 Order name: Magnesium pkl 03/29 04:20 Order name: NT PRO-BNP pkl 03/29 04:20 Order name: PT-INR pk 03/29 04:20 Order name: Troponin (emerg Dept Use Only) pk 03/29 04:20 Order name: Hemoglobin A1c pk 03/29 04:20 Order name: ABG pkl 03/29 04:20 Order name: COVID-19 pkl 03/29 04:20 Order name: Flu pkl 03/29 04:20 Order name: Blood Culture Adult (2) pkl 03/29 04:20 Order name: Procalcitonin pkl 03/29 04:20 Order name: Lactate pkl 03/29 05:39 Order name: Lactate; Complete Time: 05:39 EDMS 03/29 05:40 Order name: CBC with Automated Diff; Complete Time: 05:40 EDMS 03/29 05:56 Order name: glucometer results - FOR PT WITH NO ID: [id number] ea 03/29 05:56 Order name: glucometer results - FOR PT WITH NO ID: 0433 ea 03/29 05:56 Order name: glucometer results - FOR PT WITH NO ID: [id number] 03/29 06:00 Order name: Basic Metabolic Panel; Complete Time: 06:01 EDMS 03/29 06:00 Order name: Liver (Hepatic) Function; Complete Time: 06:01 EDMS 03/29 06:00 Order name: Troponin (Emerg Dept Use Only); Complete Time: 06:01 EDMS 03/29 06:00 Order name: NT PRO-BNP; Complete Time: 06:01 EDMS 03/29 06:00 Order name: Magnesium; Complete Time: 06:01 EDMS 03/29 06:18 Order name: Protime (+INR); Complete Time: 06:31 EDMS 03/29 06:36 Order name: Procalcitonin EDMS 03/29 06:42 Order name: ABG Arterial Blood Gas EDMS 03/29 06:59 Order name: COVID-19/FLU A+B EDMS 03/29 04:20 Order name: XRAY Chest (1 view) pk 03/29 04:20 Order name: EKG; Complete Time: 06:12 pkl 03/29 04:20 Order name: Cardiac monitoring; Complete Time: 04:28 pk 03/29 04:20 Order name: EKG - Nurse/Tech; Complete Time: 04:28 pkl 03/29 04:20 Order name: IV Saline Lock; Complete Time: 04:28 pkl 03/29 04:20 Order name: Labs collected and sent; Complete Time: 04:28 pk 03/29 04:20 Order name: O2 Per Protocol; Complete Time: 04:28 pk 03/29 04:20 Order name: O2 Sat Monitoring; Complete Time: 04:29 pkl 03/29 04:22 Order name: Accucheck: q hourly; Complete Time: 05:01 pk 03/29 07:03 Order name: Glucose, Ancillary(No Armband) EDMS 03/29 07:27 Order name: Blood Culture EDMS 03/29 07:38 Order name: Glucose, Ancillary Testing EDMS 03/29 08:55 Order name: RAD EDMS 03/29 08:58 Order name: Glucose, Ancillary Testing EDMS 03/29 10:24 Order name: Glucose, Ancillary Testing EDMS 03/29 11:12 Order name: Glucose, Ancillary Testing EDMS Administered Medications: 04:00 Drug: D50W 50 ml Route: IVP; Site: right forearm; sg 05:02 Follow up: Response: No adverse reaction ea 04:10 Drug: D5W 250 ml Route: IVPB; Site: right forearm; rr5 05:32 Drug: D50W 50 ml Route: IVP; Site: right antecubital; ea 05:40 Drug: D50W 50 ml Route: IVP; Site: right antecubital; ea 05:40 Drug: D10 in Water [2 mL/kg] 50 ml Route: IVP; Site: right forearm; ea 05:48 CANCELLED (Other Intervention Used): D10 in Water [2 mL/kg] 50 ml IVP See ea Administration Instructions; 50 mls/hr Disposition: 03/29/20 05:05 Hospitalization ordered by Larry Bolivar for Inpatient Admission. Preliminary diagnosis is Altered mental status. Hypoglycemia. Chronic renal disease. Volume overload. On dialysis. - Bed requested for [facility] ER HOLD. - Status is Inpatient Admission. bp - Condition is Stable. - Problem is new. - Symptoms have improved. Signatures: Dispatcher [employer] EDIA [place] Gill, RN Akhil Salas MD MD pkl Lasagna, Tonya RN RN tl1 Karuna Malik RN Surinder Daniels ea RN RN Gregory Ortiz RN RN rr5 Corrections: (The following items were deleted from the chart) 05:42 05:05 Hospitalization Ordered by Larry Bolivar MD for Inpatient Admission. Preliminary tl1 diagnosis is Altered mental status. Hypoglycemia. Chronic renal disease. Volume overload. On dialysis. Bed requested for Telemetry/MedSurg (Inpatient). Status is Inpatient Admission. Condition is Stable. Problem is new. Symptoms have improved. pkl 05:48 05:47 D10 in Water [2 mL/kg] 50 ml IVP See Administration Instructions; 50 mls/hr ea ordered. ea 11:40 05:42 03/29/2020 05:05 Hospitalization Ordered by Larry Boliavr MD for Inpatient bp Admission. Preliminary diagnosis is Altered mental status. Hypoglycemia. Chronic renal disease. Volume overload. On dialysis. Bed requested for [facility] ER HOLD. Status is Inpatient Admission. Condition is Stable. Problem is new. Symptoms have improved. tl1
--- OUTSIDE RECORDS SUMMARY | 2020-03-29 05:34 | XMS REPORT | Clinical Summary ---
:1975 Author Organization [facility] Address [address] [place] [address] Care Team Providers Name Role Phone Unavailable [...] Not on file Results Not on fileafter 03/29/2019 Insurance Payer Benefit Plan / Subscriber ID Effective Phone Address T ype Group Dates MEDICARE MEDICARE A B [id number] 2012-Pre Med icare sent CIGNA CIGNA [id number] 2017-Pre [facility] sent Contracted
--- OUTSIDE RECORDS SUMMARY | 2020-03-29 05:35 | XMS REPORT | Continuity of Care Document ---
:1975 Author Organization [facility] Care Team Providers Name Role Phone [facility] Unavailable Un available Problems Problem Status Onset Classification Date Comments Sourc e Date Reported GASTROPARESIS Active 09/08/19 Condition 09/07/2014 [facility] dical 15 Group ERECTILE Active 09/08/19 Condition 09/07/2014 [facility] l DYSFUNCTION 15 Group PHYSICAL Active 09/08/19 Condition 09/07/2014 Medica l EXAMINATION 15 Group PHYSICAL EXAM Inactive 09/09/19 Condition 09/07/2014 [facility] dical 14 Group HYPERLIPIDEMIA - Active 09/01/19 Condition 09/07/2014 Medical MIXED 14 Group PRE-OP CV EXAM Active 09/01/19 Condition 09/07/2014 [facility] edical 14 Group RENAL FAILURE, Active 06/06/19 Condition 09/07/2014 [facility] edical CHRONIC 13 Group ANEMIA IN CHRONIC Active 06/06/19 Condition 09/07/2014 [facility] Medical KIDNEY DISEASE 13 Group DIAB W/O COMP Active 06/03/19 Condition 09/07/2014 [facility] dical TYPE II/UNS NOT 13 Grou [...] INSULIN use as Active Medical SYRINGE directed 014 Group HALF-UNIT 31G X [...] 10 MG 1 po qd prn No Medi siva TABS Longer 012 Group Active ACCU-CHEK Test 3 times Active Medica l FERNANDA STRP a day. 012 [...] p Temperature Oral (F) 98.3 F 09/07/2014 [facility] Group Height 66 09/07/2014 Medical Grou p Weight 210 09/07/2014 Medical Grou p Respitory Rate 14 09/07/2014 Medical Gr oup Weight 204 09/08/2013 Medical Grou p Temperature Oral (F) 98.0 F 09/08/2013 [facility] Group Heart Rate 77 09/08/2013 Medical Grou [...] Number For Provider Date Date Visit AUDIT [id number] 01/30 Physician s AUDIT [id number] 01/30 Physician s AUDIT [id number] 01/30 Physician s AUDIT [id number] 02/03 Physician s AUDIT [id number] 03/08 Physician s AUDIT [id number] 04/07 [facility] [phone] Oralia Gao, 08/31 08/31 [facility] Visit [facility] [address] [facility] Office [phone] Lyric 09/08 09/08 [facility] Visit 0420 MD Javier /2013 [facility] [address] [facility] Lab Report [id number] [place] 02/23 02/23 [place] 0570 MD Javier /2013 [facility] [place] [facility] Office [phone] [place] 09/07 09/07 [facility] [place] Visit 1320 MD Lupillo /2014 [facility] [place] Procedures No Data Provided for This Section Assessment and Plan No Data Provided for This Section Plan of Care No Data Provided for This Section Social History Social History Date Source Never A Smoker 04/07/2012 [facility] (Active) Never Drank Alcohol (Active) Family History No Data Provided for This Section Advance Directives Order Name Results Value Date Source Advance Directives Advance Directives No Advance 04/07/2012 [facility] Directives available. Advance Directives Advance Directives No Advance 03/08/2012 [facility] Directives available. Advance Directives Advance Directives No Advance 02/04/2012 [facility] Directives available. Advance Directives Advance Directives No Advance 02/01/2012 [facility] Directives available. Advance Directives Advance Directives No Advance 01/31/2012 [facility] Directives available. Advance Directives Advance Directives No Advance 01/31/2012 [facility] Directives available. Functional Status No Data Provided for This Section
[2020-03-29] MEDS ORDERED: ONDANSETRON 4 MG/2 ML VIAL IV PRN (05:36)
[2020-03-29] MEDS ORDERED: MORPHINE 2 MG/ML SYR IV PRN (05:36)
--- OUTSIDE RECORDS SUMMARY | 2020-03-29 05:36 | XMS REPORT | Continuity of Care Document ---
:1975 Author Organization [facility] t Address [address] [place] [address] Care Team Providers Name Role Phone Oscar SAINI, Lauren Bobo Attending Clinician Ty SAINI, K.H. Attending Clinician Problems Condition Condition Condition Status Onset Resolution [...] Medical Group PRE-OP CV Condition [facility] 08-31 10:20:15 l PRE-OP 00:00: [place] CV EXAM 00 Active 08/31/2013 Condition 5 Medical Group RENAL Condition Active 2014-09-07 Mem oria FAILURE, 06-05 10:20:15 l CHRONIC RENAL 00:00: [place] FAILURE, 00 CHRONIC Active 06/05/2012 Condition 5 Medical Group ANEMIA IN Condition Active 2014-09-07 Memoria CHRONIC 06-05 10:20:15 l KIDNEY ANEMIA 00:00: [place] DISEASE IN CHRONIC 00 KIDNEY DISEASE Active [...] Mem oria 06-02 10:20:15 l COUGH 00:00: [place] 00 Active 06/02/2012 Condition 5 Medical Group DIABETIC Condition Active 2011-032014-09-07 M emoria RETINOPATH 05-12 10:20:15 l Y DIABETIC 00:00: Simon n RETINOPAT 00 HY Active 2 Condition 09/07/2014 Medical Group HYPERTENSI Condition Active 2011-032014-09-07 Memoria ON 05-12 10:20:15 l 00:00: [place] HYPERTENSI 00 ON Active 2 Condition 09/07/2014 Medical Group Chronic Problem Active 2012-04-07 Mariano steven Kidney 21:40:14 l Disease, Chronic [place] nn Stage 4 Kidney Disease, Stage 4 Active 3 [facility] End Stage Problem Active 2012-04-07 Me moria Renal 21:40:14 l Disease End [place] Stage Renal Disease Active 3 [facility] History of Past Illness Condition Condition Condition Status Onset Resolution Last Treating Co mments Source Name Details Category Date Date Treatment Clinician Date PHYSICAL Condition Inactiv 2014-09-07 2014-09-07 Memoria EXAM e 09-08 10:20:15 10:20:15 l PHYSICAL 00:00: Simon n EXAM 00 Inactive 09/08/2013 Condition 5 [facility] Allergies, Adverse Reactions, Alerts Allergy Allergy Status Severity Reaction(s) Onset Inactive Treating Comm ents Source Name Type Date Date Clinician [facility] Medical reaction 00 Center s No Known No Known Active Memori a Drug Drug l Allergie Allergie Simon n s s Not Not Active Memoria Known Known l [place] Social History Social Habit Start Date Stop Date Quantity Comments Source Sex Assigned At [facility] Social History 2012-04-07 2012-04-07 [facility] lucy 21:40:14 21:40:14 Smoking Status Start Date Stop Date Source Never smoker [facility] Medications Ordered Filled Start Stop Current Ordering Indication Dosage Frequency Signature Comments Components Source Medication Medication Date Date Medication? Clinician (SIG) Name Name CALCIUM Yes one cap Memoria ACETATE 667 6-24 tid with l MG CAPS 00:00: meals [place] 00 BD INSULIN Yes use as Memor ia SYRINGE 3-05 directed l HALF-UNIT 00:00: [place] 31G X 5/16" 00 0.3 ML MISC BD PEN Yes use as Memoria NEEDLE 3-04 directed l SHORT U/F 00:00: [place] 31G X 8 MM 00 MISC APIDRA 100 No inject Memor ia UNIT/ML 3-04 10units in l SOLN 00:00: the am, [place] 00 15units at lunch,and 10 units in the evening BD PEN Yes use as Memoria NEEDLE 3-04 directed l SHORT U/F 00:00: [place] 31G X 8 MM 00 MISC NOVOLOG 100 2012-03 Yes inject Mariano steven UNIT/ML 1-19 10-15units l SOLN 00:00: tid with [place] 00 meals sc NOVOLOG 100 2012-03 Yes inject Mariano steven UNIT/ML 1-19 10-15units l SOLN 00:00: tid with [place] 00 meals sc ZITHROMAX No Take 2 [...] moria UNIT/ML 1-22 l Injection 21:40: [place] Solution 14 Lantus 100 Yes (Active) Me moria UNIT/ML 1-22 l Subcutaneou 21:40: Simon chapman s Solution 14 Lasix 20 MG Yes (Active) M emoria Oral Tablet 1-22 l 21:40: [place] Reglan 10 Yes (Active) Mem oria MG Oral 1-22 l Tablet 21:40: [place] No Active 2011-03 Yes No Active Mem oria Medications 1-17 Medication l 01:30: s [place] 26 REGLAN 10 No 1 po qd Memor ia MG TABS 9-28 prn l 00:00: [place] 00 ACCU-CHEK Yes Test 3 Memori a FERNANDA [...] steven 30 MG TABS 9-21 l 00:00: [place] LANTUS Yes 18 units Memoria SOLOSTAR 9-21 at bedtime l 100 UNIT/ML 00:00: sc Simon n SOLN 00 LIPITOR 20 No 1 po qd Mariano steven MG TABS 9-21 l 00:00: LISINOPRIL Yes 1 tablet Mem oria 30 MG TABS 9-21 orally l 00:00: twice a [place] week on Friday and Vital Signs Vital Name Observation Time Observation Value Comments Source Systolic (mm Hg) 2014-09-07 15:20:15 Mariano rial [place] Diastolic (mm Hg) 2014-09-07 15:20:15 Mem orial [place] Heart Rate 2014-09-07 15:20:15 [facility] Temperature Oral (F) 2014-09-07 15:20:15 98.3 F [facility] [place] Height 2014-09-07 15:20:15 [facility] [place] Weight 2014-09-07 15:20:15 [facility] [place] Respitory Rate 2014-09-07 15:20:15 Memori al [place] Weight 2013-09-08 14:22:12 [facility] Temperature Oral (F) 2013-09-08 14:22:12 98.0 F [facility] [place] Heart Rate 2013-09-08 14:22:12 [facility] [place] Systolic (mm Hg) 2013-09-08 14:22:12 Mariano rial [place] Diastolic (mm Hg) 2013-09-08 14:22:12 Mem orial [place] Systolic (mm Hg) 2013-08-31 15:43:31 Mariano rial [place] Diastolic (mm Hg) 2013-08-31 15:43:31 Mem orial [place] Heart Rate 2013-08-31 15:43:31 [facility] [place] Weight 2013-08-31 15:43:31 [facility] [place] Weight 2012-06-02 15:36:10 [facility] [place] Height 2012-06-02 15:36:10 [facility] [place] Temperature Oral (F) 2012-06-02 15:36:10 98.4 F [facility] [place] Heart Rate 2012-06-02 15:36:10 [facility] [place] Systolic (mm Hg) 2012-06-02 15:36:10 Mariano rial [place] Diastolic (mm Hg) 2012-06-02 15:36:10 Mem orial [place] Procedures This patient has no known procedures. Encounters Start End Encounter Admission Attending Care Care Encounter Source Date/Time Date/Time Type Type Clinicians Facility Department ID 2018-06-22 Inpatient [facility] [id number] [facility] 07:53:49 2018-06-22 Outpatient [facility] [id number] [facility] 07:53:48 2020-03-28 2020-03-28 [facility] [id number] 00:00:00 00:00:00 Lauren Bobo [facility] [id number] [facility] [id number] [place] [id number] [facility] 2020-03-14 2020-03-14 [facility] [id number] 09:14:33 23:59:00 Encounter Mariposa Crespo [id number] [place] 4.2.7.2.686 [place] [id number] 2020-03-14 2020-03-14 [facility] [id number] 09:14:13 23:59:00 Encounter Mariposa Crespo [id number] [place] 4.2.7.2.686 [place] [id number] 2020-03-14 2020-03-14 [facility] [id number] 09:13:41 09:13:41 Encounter Mariposa Crespo [id number] [place] 4.2.7.2.686 [place] [id number] 2020-03-14 2020-03-14 [facility] [id number] 09:12:26 09:12:26 Encounter Mariposa Crespo [id number] [place] 4.2.7.2.686 [place] [id number] 2020-02-28 2020-02-28 [facility] [id number] 12:46:09 13:47:51 Visit Mariposa Crespo [id number] [place] 4.2.7.2.686 [facility] [id number] nal 059 [facility] 2012-04-07 2012-04-07 Outpatient [facility] MH[facility] [id number] 15:40:31 15:40:14 2012-03-08 2012-03-08 Outpatient [facility] [id number] 13:29:27 13:29:12 2012-02-04 2012-02-04 Outpatient [facility]IE [facility]IE [id number] 11:20:09 11:19:53 2012-01-31 2012-01-31 Outpatient [facility]IE [facility]IE [id number] 19:30:42 19:30:26 2012-01-31 2012-01-31 Outpatient [facility]IE MHIE [id number] 16:34:08 16:33:53 2012-01-31 2012-01-31 Outpatient MHIE MHIE [id number] 14:49:27 14:49:11 Results Test Description Test Time Test Comments Results Result Comments Source Chemistry 2012-10-23 7.3 [facility] nn 14:45:00 Chemistry 2012-10-23 178 [facility] nn 14:45:00 Chemistry 2012-10-23 129 [facility] [place] [...] BUN/CREAT (test code = BUN/CREAT) 9 1 625 [facility] VbjykafJzfmpzmir5655-43-73 14:45:003.6[facility] 2012-10-23 14:45:009.0[facility] EfwozwfSzajuswdc0582-97-31 14:45:0021[facility] BeauoifHgvzjqdnv2396-93-66 14:45:009[facility] ShpinucQzfhizibi3622-91-65 14:45:00 67[facility] XohpuvbFqgztadvlv5357-75-73 14:45:0013.2[facility]ann[facility] 2012-10-23 14:45:0041.5[facility] JniharqBcxmlwcoto6787-51-30 14:45:40456 K/CMM [facility] KsvsrkkYwfqsexvn0810-46-53 21:12:005.1[facility] 2012-06-04 21:12:41020Dstablmi QbacokzZezquymmb1036-34-39 21:12:18924Cuufvwou QybnaqwPtbbazpoz8451-79-98 21:12:0037[facility] ZbgnspsSppkrldtg1940-11-52 21:12:60758Znsduiuq KcbjyyaEkrdlzfiv7470-23-76 21:12:15954 MEQ/LMemorial [place] Kaxixujmy0597-06-45 21:12:004.6 MEQ/LMemorial DblbymrYyersyjmg6607-11-56 21:12:007.4[facility] NglachqWlqqoroaj7356-78-18 21:12:0053[facility] [place] Oksstwcic4436-22-87 21:12:00 Test Item Value Reference Range Interpretation Comments BUN/CREAT (test code = BUN/CREAT) 7 09-08 [facility] SudrypnMyllqwukp0434-53-51 21:12:002.2[facility] 2012-06-04 21:12:007.2[facility] XsevrkyLozqxvnej8051-30-17 21:12:0024[facility] NbezrsfEnhvdzosn4113-40-46 21:12:0027[facility] JixgwwePcivlcozo6961-44-77 21:12:0066[facility] EdnttxzJxzxtrmtu3864-42-86 21:12:005.1[facility] [place] Ptbsleszl0473-81-50 21:12:30135Eejycjyj QlhdhxuHmzvqkqqr9302-44-10 21:12:09156 [facility] EggedubTehopuecw1861-47-45 21:12:0037[facility] 2012-06-04 21:12:44714Lobvunpw MwwlliuSsujjzyak9152-62-14 21:12:26757 MEQ/L Memorial ZnidumlUpxetrwxd3113-86-62 21:12:004.6 MEQ/L[facility] HermannChemistry 2012-06-04 21:12:007.4[facility] MjuszubQhzjpehlf3326-81-20 21:12:0053[facility] ZqmeetmNutronnqc3425-71-46 21:12:00 Test Item Value Reference Range Interpretation Comments BUN/CREAT (test code = BUN/CREAT) 7 09-08 [facility] UciubvsZeznetxen9020-79-45 21:12:002.2[facility]ann[facility] 2012-06-04 21:12:007.2[facility] HjqwuvdMuwspygpi0786-35-56 21:12:0024[facility] ZohfartUihdvqtst2236-99-11 21:12:0027[facility] UhnwyrhLwaxwhxkv0058-79-77 21:12:0066[facility] DgyaqsgMsfobskzjk1970-97-35 21:12:007.9[facility] [place] Dykbtqvafc2114-96-75 21:12:0023.7[facility] OkrntouOkmspyixkr0265-38-25 21:12:00 289 K/CMMMemorial HefinwfGodgwtipfh0718-68-39 21:12:007.9[facility] [place] Jzyboikjkh0166-92-32 21:12:0023.7[facility] VxsuhgnOyszpxhjfe3990-56-81 21:12:00 289 K/CMMMemorial EgwqjfuQvmlahsog8773-52-24 20:28:006.9[facility] [place] Azyogpcxg1925-97-41 20:28:001.420[facility] FfcajceXqirhnphf2001-29-49 20:28:37176 [facility] MwfdkxzJaldpngbu0600-60-78 20:28:85696Lulhrnuf HermannChemistry 2011-11-12 20:28:0054[facility] ZlxgihuFcslvdhbn3182-82-37 20:28:52644Tycodiju MusopcmBwrallxpb7076-17-58 20:28:39113 MEQ/LMemorial RgufkofGvvncinfj6280-07-66 20:28:004.7 MEQ/LMemorial LlovcqdOolaoqsbr1296-04-98 20:28:004.9[facility] [place] Taqttttfk3949-21-92 20:28:0063[facility] MotqdkmTjncsmckd3671-78-61 20:28:00 Test Item Value Reference Range Interpretation Comments BUN/CREAT (test code = BUN/CREAT) 13 1 6- Memorial GueqqxqYzikhddae9911-60-01 20:28:001.8[facility]ann[facility] 2011-11-12 20:28:007.6[facility] DbbhahyMhuevvzny8066-54-32 20:28:0017[facility] PjpfmboQnphnqmuk8767-56-37 20:28:0014Mem[facility] ZfbxracHnbqavfvu4641-35-89 20:28:0068[facility] [place]
--- OUTSIDE RECORDS SUMMARY | 2020-03-29 05:36 | XMS REPORT | Summary of Care ---
:1975 Author Organization [facility] Address [address] [place] [id number] Care Team Providers Name Role Phone Rojas Mccoy DO Contract Negotiation Specialist Erika Primary Care Provider Reason for Referral (Routine) Status Reason Specialty Diagnoses / Procedures Referred By Elana suherred To Contact Contact New Request Cardiology Diagnoses SHORT (dyspnea on exertion) Essential hypertension Pulmonary hypertension Nonobstructive atherosclerosis of coronary artery ESRD (end stage renal disease) on dialysis Atypical chest pain Uncontrolled hypertension Crawford, Sendil Encounter for pre-operative cardiovascular clearance MD Ene Procedures ECHO ROUTINE W/DOPPLER COLOR Preferred Location: [facility] [address] [place] [id number] Radiology Services (Routine) Status Reason Specialty Diagnoses / Referred By Referred To Procedures Contact Contact New Request Diagnostic Diagnoses SHORT (dyspnea on exertion) Essential hypertension Pulmonary hypertension Nonobstructive atherosclerosis of coronary artery ESRD (end stage renal disease) on dialysis Atypical chest pain Uncontrolled hypertension Crawford, Sendil Radiology Encounter for pre-operative cardiovascular clearance MD Ene Procedures NM MYOCARDIUM PERFUSION STRESS AND REST [address] [place] [address] Reason for Visit Reason Comments Follow-up Ekg Encounter Details Date Type Department Care Team Description 02/28/2020 Office Visit [facility] [place] Mariposa Crawford (dyspnea on exertion) (Primary Dx); Cardiology- Cherie Luque MD Essential hypertension; [address] Nonobstructive atherosclerosis of [address]drigues ry artery; [place] ESRD (end stage renal disease) on dialysis; [id number] Atypical chest pain; [phone] Uncontrolled hypertension; [phone] Encounter for p re-operative cardiovascular clearance (Fax) Allergies Active Allergy Reactions Severity Noted Date Comments Promethazine Hcl Anxiety Low 10/08/2016 "jumpy" documented as of this encounter (statuses as of 03/01/2020) Medications Medication Sig Dispensed Refills Start Date End Date Status ALPRAZolam (XANAX) Take 0.25 mg 0 Active 0.25 mg tablet by mouth 2 (two) times daily. Insulin Lispro, inject 20 0 Acti ve Human, (HUMALOG) Units under 100 unit/mL the skin 2 cartridge (two) times daily. NIFEdipine CC 90 Take 90 mg 0 Ac tive mg SR tablet by mouth 2 (two) times daily. Insulin Glargine inject 25 0 Act rkistine (BASAGLAR KWIKPEN Units under U-100 INSULIN) 100 the skin. unit/mL (3 mL) injection tiZANidine 2 mg 1 07/10/2018 Act kristine tablet amLODIPine 10 mg Take 10 mg 0 Ac tive tablet by mouth daily. aspirin 81 mg EC Take 81 mg 0 Ac tive tablet by mouth daily. atorvastatin 40 mg Take 1 90 tablet 3 02/02/2019 Active tabletIndications: tablet by Essential mouth at hypertension bedtime. sevelamer 800 mg Take 2,400 0 Ac tive tablet mg by mouth 3 (three) times daily with meals. sevelamer Take 800 mg 0 Active (RENVELA) 800 mg by mouth 3 tablet (three) times daily with meals. calcium acetate Take 667 mg 0 Di scontinued 667 mg Tab by mouth 3 0 (Alterna te (three) therapy) times daily with meals. carvedilol 25 mg Take 25 mg 0 Di scontinued tablet by mouth 2 0 (Therapy (two) times complete d) daily with meals. ramipril 10 mg Take 10 mg 0 Disc ontinued capsule by mouth 0 (Therapy daily. completed) documented as of this encounter (statuses as of 03/01/2020) Active Problems Problem Noted Date Obesity (BMI 30-39.9) 07/23/2018 Hypertension 03/17/2014 Cataract 03/17/2010 Overview: fixed bilaterally DM (diabetes mellitus) 03/17/1992 Nephropathy IBS (irritable bowel syndrome) Gastroparesis ESRD (end stage renal disease) on dialysis Secondary hyperparathyroidism of renal origin Retinopathy documented as of this encounter (statuses as of 03/01/2020) Immunizations Name Administration Dates Next Due Hep B, Adol or Pedi Dosage 12/28/2012, 08/26/2012, 3, 06/19/2012 Influenza Virus Vaccine 01/16/2020, 11/27/2016, 12/05/2014, 11/15/2013, 11/20/2012, 07/08/2012 PPD (TB) [...] been in contact with No / Unsure 02/28/2020 12:45 PM PARAMEDIC INSTRUCTOR someone who was confirmed or suspected to have Coronavirus / COVID-19? documented as of this encounter Last Filed Vital Signs Vital Sign Reading Time Taken Comments Blood Pressure 162/95 02/28/2020 1:18 PM PARAMEDIC INSTRUCTOR Pulse 72 02/28/2020 1:18 PM PARAMEDIC INSTRUCTOR Temperature - - Respiratory Rate 18 02/28/2020 1:06 PM PARAMEDIC INSTRUCTOR Oxygen Saturation 98% 02/28/2020 1:06 PM PARAMEDIC INSTRUCTOR Inhaled Oxygen Concentration - - Weight 91.7 kg (202 lb 1.6 oz) 02/28/2020 1:06 PM PARAMEDIC INSTRUCTOR Height 167.6 cm (5' 6") 02/28/2020 1:06 PM PARAMEDIC INSTRUCTOR Body Mass Index 32.62 02/28/2020 1:06 PM PARAMEDIC INSTRUCTOR documented in this encounter Progress Notes Mariposa Crawford MD - 02/28/2020 1:00 PM CST [facility] Cardiology Consult Note Patient: Chase Chacon Jr. Date of : 1975 Primary Care Physician: Jennifer James CHIEF COMPLAINT: Chief Complaint Patient presents with Follow-up Ekg History of Present Illness: Chase Chacon Jr. is a 44 year old male presents to clinic for follow up for CV stratification for undergoing renal transplant. History was obtained talking to patient. Since the last office visit, patient reported having chest discomfort going to the [facility] last month. He was seen in the ER overnight his work-up and EKG/CT/labs were all unremarkable and he was discharged home. Still having occasional atypical chest pain that happens at random with no specific aggravating or relieving factors. No typical exertional chest discomfort noted. SHORT NYHA Class II stable. No history of exertional chest pain. No PND or orthopnea. No pedal edema. No exertional palpitationsor palpitations at rest. No syncopal attacks. Risk factors: Long terms DM and HTN, ESRD on HD for last 4-5 yrs. Previous Cardiac Studies: IMAGING - I personally reviewed, pertinent results as below: Echo 08/2017 Interpretation Summary The study was technically limited. There is no comparison study available. There is mild concentric left ventricular hypertrophy. Left ventricular systolic function is normal. Ejection Fraction = 55-60%. The left ventricular wall motion is normal. Diastolic function is pseudonormal. Left ventricular filling presure is elevated. The left atrium is mildly dilated. Estimated RA pressure is 0-5 mmHg. RVSP is at least 40-45 mmHg. Therer is a trivial pericardial effusion. NM Stress 10/2017 IMPRESSION Impression: Normal myocardial perfusion scan with preserved ejection fraction and normal wall thickening. ECG 12/23/2017 SR with narrow QRS complex. Nonspecific ST changes. Echo 02/2018 Interpretation Summary The study was technically limited. Compared to prior study, there is no significant change. There ismild concentric left ventricular hypertrophy. Left ventricular systolic function is normal. Ejection Fraction = 55-60%. The left ventricular wall motion is normal. Diastolic function is pseudonormal. Left ventricular filling presure is elevated. Therer is a trivial pericardial effusion. The left atrium is moderately dilated. Estimated RA pressure is 5-10 mmHg. Right ventricular systolic pressure is elevated at 45-50 mmHg. Addendum 08/09/2018 Cath 07/2018 LEFT CORONARYARTERY: Left Main Artery: large, long, distal 10% disease LAD: large, wraps around apex, ostial to proximal long calcified 40-50% disease, followed by a small aneurysmal proximal segment, then mid to distal diffuse mild LI. D1: medium size, has 2 branches at proxima level with diffuse mild LI. D2: small, LI S1: 1 mm with LI Ramus: medium size, 2 ostial branches with diffuse mild LI. Circumflex: large, proximal LI, mid LI, distal diffuse 10-30% disease OM1: 1 mm with mild proximal disease OM2: large, minimal LI OM3: 2 mm with diffuse mild disease RIGHT CORONARYARTERY: RCA: large, dominant, proximal to mid minimal LI, distal 10-20% disease. RPDA: 2 mm vessel with diffuse minimal disease RPL: large, proximal LI RPL: large, proximal LI LV FINDINGS: LVElevated EDP : 24 mmHg AIR REST ECG 08:27:47 AO 147/76 (103) SA 09:38:51 LV 140/-14, 24 09:48:51 LVp 140/-10, 28 09:49:03 AOp 139/63 (91) 09:49:11 RA 26/23 (17) SV 10:00:18 RV 61/1, 22 10:01:08 RV 63/1, 19 10:01:26 PW 32/52 (31) PV 10:05:39 PA 59/22 (40) PA DIAGNOSTIC IMPRESSION: - Borderline ostial-proximal LAD, FFR done and was negative - Moderate to severe pulmonary venous HTN, elevated R and L filling pressure, preserved CO. PLANS: l - FFR LAD (Done and was negative). l - HD with removal of extra fluid since patient is overloaded with O2 desaturation requiring O2 supplement. INTERVENTION IMPRESSION: Mild proximal LAD disease, negative by FFR. Echo 12/2019 Interpretation Summary The study was technically limited. A two-dimensional transthoracic echocardiogram with M-mode and Doppler was performed. There is mild concentric left ventricular hypertrophy. Left ventricular systolic function is normal.Ejection Fraction = 55-60%. The left ventricular wall motion is normal. Diastolic function is pseudonormal. The left atrium is mildly dilated. Estimated RA pressure is 0-5 mmHg. Insufficient Tricuspid regurgitation jet to estimate RVSP. RVSP is at least 30- 35 mmHg. ECG 02/28/2020 SR with narrow QRS complex. Nonspecific ST changes. PAST MEDICAL HISTORY Past Medical History: Diagnosis Date Anemia Anxiety [...] Problems Brother No Significant Medical Problems Brother SOCIAL HISTORY Social History Socioeconomic History Marital status: Single [...] file Gets together: Not on file Attends latter-day service: Not on file Active member of [...] file Social History Narrative Not on file ALLERGIES Allergies Allergen Reactions Phenergan [Promethazine Hcl] Anxiety "jumpy" MEDICATIONS Patient's Medications START taking these medications No medications on file CONTINUE taking these medications which have NOT CHANGED ALPRAZOLAM (XANAX) 0.25 MG TABLET Take 0.25 mg by mouth 2 (two) times daily. AMLODIPINE 10 MG TABLET Take 10 mg by mouth daily. ASPIRIN 81 MG EC TABLET Take 81 mg by mouth daily. ATORVASTATIN 40 MG TABLET Take 1 tablet by mouth at bedtime. INSULIN GLARGINE (BASAGLAR KWIKPEN U-100 INSULIN) 100 UNIT/ML (3 ML) INJECTION inject 25 Units under the skin. INSULIN LISPRO, HUMAN, (HUMALOG) 100 UNIT/ML CARTRIDGE inject 20 Units under the skin 2 (two) times daily. NIFEDIPINE CC 90 MG SR TABLET Take 90 mg by mouth 2 (two) times daily. SEVELAMER (RENVELA) 800 MG TABLET Take 800 mg by mouth 3 (three) times daily with meals. SEVELAMER 800 MG TABLET Take 2,400 mg by mouth 3 (three) times daily with meals. TIZANIDINE 2 MG TABLET START taking Modified Medications as Prescribed No medications on file STOP taking these medications CALCIUM ACETATE 667 MG TAB Take 667 mg by mouth 3 (three) times daily with meals. CARVEDILOL 25 MG TABLET Take 25 mg by mouth 2 (two) times daily with meals. RAMIPRIL 10 MG CAPSULE Take 10 mg by mouth daily. REVIEW OF SYSTEMS: Comprehensive 10-system review was conducted and were negative except for what's noted in the HPI. The following systems were reviewed: Constitutional, cardiovascular, respiratory, gastrointestinal, genitourinary, musculoskeletal, neurologic, psychiatric, endocrinological, and hematological. PHYSICAL EXAMINATION: Vitals: 02/28/20 1306 02/28/20 1318 BP: (!) 155/87 (!) 162/95 BP Location: Right arm Right arm Patient Position: Sitting Sitting BP CUFF SIZE: Adult Large Adult Large Pulse: 69 72 Resp: 18 SpO2: 98% Weight: 202 lb 1.6 oz (91.7 kg) Height: 5' 6" (1.676 m) General: no apparent distress HEENT: normocephalic atraumatic Neck: supple, no lymphadenopathy, no bruits, no JVD Lungs: clear to auscultation bilaterally. No wheezes or rhonchi. No increased work of breathing. Cardio: Regular rate and rhythm, S1&S2 normal, no murmurs, rubs or gallops Abdomen: soft; non-tender; non-distended; normoactive bowel sounds. : not examined Rectal: not examined Extremities: no clubbing, cyanosis, or edema. Skin: no rashes, no visible lesions. Neuro: no gross focal deficits LABS - Reviewed pertinent labs as below: CBC BMP PT/INR WBC (10*3/L) Date Value 07/21/2018 6.16 NA (mmol/L) Date Value 07/21/2018 145 No results found for: PT PLT (10*3/L) Date Value 07/21/2018 169 K (mmol/L) Date Value 07/21/2018 4.4 INR (no units) Date Value 07/21/2018 1.2 HGB (g/dL) Date Value 07/21/2018 8.8 (L) BUN (mg/dL) Date Value 07/21/2018 40 (H) HCT (%) Date Value 07/21/2018 29.2 (L) CREATININE (mg/dL) Date Value 07/21/2018 7.90 (H) LIPID PROFILE GLUCOSE (mg/dL) Date Value 07/21/2018 90 CHOL (mg/dL) Date Value 10/08/2016 189 TSH LDL CHOL (mg/dL) Date Value 10/08/2016 102 TSH (mIU/L) Date Value 10/08/2016 0.90 CARDIAC ENZYMES HDL (mg/dL) Date Value 10/08/2016 40 (L) No results found for: CK TRIG (mg/dL) Date Value 10/08/2016 237 (H) LFTs No results found for: CKMB AST(SGOT) (U/L) Date Value 07/21/2018 18 No results found for: TROPNI ALT(SGPT) (U/L) Date Value 07/21/2018 24 No results found for: BNP LDL CHOL (mg/dL) Date Value 10/08/2016 102 There are no current results on file for these tests and/or test for 1 year. There are no current results on file for these tests and/or test for 1 year. Labs 11/2018 CMP Normal Cr: elevated LDL 59 TG 37 HDL 42 ASSESSMENT/PLAN 1. SHORT (dyspnea on exertion) NM MYOCARDIUM PERFUSION STRESS AND REST EKG-12 LEAD ROUTINE ECHO ROUTINE W/DOPPLER COLOR Preferred Location: [facility] 2. Essential hypertension NM MYOCARDIUM PERFUSION STRESS AND REST EKG-12 LEAD ROUTINE ECHO ROUTINE W/DOPPLER COLOR Preferred Location: [facility] 3. Pulmonary hypertension NM MYOCARDIUM PERFUSION STRESS AND REST EKG-12 LEAD ROUTINE ECHO ROUTINE W/DOPPLER COLOR Preferred Location: [facility] 4. Nonobstructive atherosclerosis of coronary artery NM MYOCARDIUM PERFUSION STRESS AND REST EKG-12 LEAD ROUTINE ECHO ROUTINE W/DOPPLER COLOR Preferred Location: [facility] 5. ESRD (end stage renal disease) on dialysis NM MYOCARDIUM PERFUSION STRESS AND REST EKG-12 LEAD ROUTINE ECHO ROUTINE W/DOPPLER COLOR Preferred Location: [facility] 6. Atypical chest pain NM MYOCARDIUM PERFUSION STRESS AND REST EKG-12 LEAD ROUTINE ECHO ROUTINE W/DOPPLER COLOR Preferred Location: [facility] 7. Uncontrolled hypertension NM MYOCARDIUM PERFUSION STRESS AND REST EKG-12 LEAD ROUTINE ECHO ROUTINE W/DOPPLER COLOR Preferred Location: [facility] 8. Encounter for pre-operative cardiovascular clearance NM MYOCARDIUM PERFUSION STRESS AND REST EKG-12 LEAD ROUTINE ECHO ROUTINE W/DOPPLER COLOR Preferred Location: [facility] Atypical chest pain: EKG done in the office today was reviewed with him. No significant changes noted. Since he keeps on having atypical chest pain/planning to undergo renal transplant status. Recommended yearly NM stress test Lexiscan for further assessment/echocardiogram. The recent echocardiogram done on 12/2019 was reviewed with him. Copies given. Pulmonary hypertension: Resolved by echo 12/2019: Elevated PA pressures likely secondary to diastolic dysfunction/increased fluid. Will monitor. Plan for echo prior to the next office visit. Non obs CAD: Recommended ASA 81 mg daily. Recommended lipitor 40 mg daily. Recommended goal LDL << 70. Uncontrolled HTN: Follows [facility]. Currently on Norvasc 10 mg daily, Coreg 25 BiD and Rampril 10 mg daily and Procardiac XL 90 mg daily. T2DM: Follows PCP. Follow up in 12 months. Orders Placed This Encounter Procedures NM MYOCARDIUM PERFUSION STRESS AND REST ECHO ROUTINE W/DOPPLER COLOR Preferred Location: [facility] Requested Prescriptions No prescriptions requested or ordered in this encounter Recommended goal BP < 130/80 consistently, LDL << 70, HbA1c < 6.5. Recommended, explained and stressed the importance of healthy eating habits and exercises and lifestyle modifications Patient's diease process and its evaluation and treatment were discussed. We discussed each of for cardio vascular-related problems and discussed long-term goals and expectations for the each problem.I reviewed each of the cardiac medications in detail. Reviewed the medication with patient in detail recommended to continue taking the current medications without further changes. Follow up as planned is predicated on symptoms stability and/or acceptable test results. Patient is urged to call in sooner should problems arise or if there is no improvement in cardiac symptoms. ER warning signs and symptoms explained and patient verbalized understanding. My diagnostic impression and treatment plans were discussed at length with the patient. All side effects as well as drug-drug interactions and risks discussed at length. Ample opportunity was offered and encouraged to ask questions during this visit and patient verbzalised statisfcation in the answersgiven. Thank you for allowing us to participate in the care of Chase Chacon Jr.. If you have any questions or concerns please feel free to call our office at [phone]. I would be happy to be of further assistance for Chase Chacon JrMena wellbeing. Bill Crawford MD Surgery Tech, Division of Cardiology [facility] MEDIC INSTRUCTOR documented in this encounter Plan of Treatment Date Type Specialty Care Team Description 02/22/2021 Laboratory Only Cardiology Pc, Adc Echo Room 1 - 03/01/2021 Office Visit Cardiology Mariposa Crawford MD [address] [place] [address] [phone] Name Type Priority Associated Diagnoses Order S chedule NM MYOCARDIUM IMAGING Routine SHORT (dyspnea on Expected: PERFUSION STRESS exertion) 03/02/2020 AND REST Essential hypert ension (Approximate), Pulmonary hypert ension Expires: 02/27/2021 Nonobstructive atherosclerosis of coronary artery ESRD (end stage renal disease) on dial ysis Atypical chest p ain Uncontrolled hypertension Encounter for pre-operative cardiovascular clearance EKG-12 LEAD ROUTINE HEART STATION Routine SHORT (dyspnea on 1 Oc currences exertion) starting 03/01/2020 Essential hypert ension until 02/28/2021 Pulmonary hypert ension Nonobstructive atherosclerosis of coronary artery ESRD (end stage renal disease) on dial ysis Atypical chest p ain Uncontrolled hypertension Encounter for pre-operative cardiovascular clearance Health Maintenance Due Date Last Done Comments EYE EXAM 1986 Depression Screening 1988 FOOT EXAM 1994 DTaP,Tdap,and Td Vaccines (1 - 1995 Tdap) PNEUMOCOCCAL 0-64 YEARS COMBINED 07/07/2015 05/12/2015, 07/2012 SERIES (2 of 3 - PPSV23) LDL-C 10/08/2017 10/08/2016 CREATININE (SERUM) 07/22/2019 07/21/2018, 10/08/2016 HgA1C 05/15/2020 11/16/2019, 12/04/2017, 10/08/2016 INFLUENZA VACCINE Completed 01/16/2020, 11/27/2016, 12/05/2014, Additional history exists documented as of this encounter Procedures Procedure Name Priority Date/Time Associated Diagnosis Comme nts EKG-12 LEAD Routine 02/28/2020 1:27 PM PARAMEDIC INSTRUCTOR documented in this encounter Results Not on filedocumented in this encounter Visit Diagnoses Diagnosis SHORT (dyspnea on exertion) - Primary Other dyspnea and respiratory abnormalit y Essential hypertension Unspecified essential hypertension Pulmonary hypertension Other chronic pulmonary heart diseases Nonobstructive atherosclerosis of rodrigues ry artery ESRD (end stage renal disease) on dialys is End stage renal disease Atypical chest pain Other chest pain Uncontrolled hypertension Unspecified essential hypertension Encounter for pre-operative cardiovascul ar clearance Pre-operative cardiovascular examination documented in this encounter Insurance Payer Benefit Plan / Subscriber ID Effective Phone Address T ype Group Dates MEDICARE MEDICARE PART [id number] 2012-Pres [phone] Medicare A & B ent [id number] [place] [id number] COMMERCIAL COMMERCIAL [id number] 2016-Pre HMO /PPO/POS NON-CONTRACT NON-CONTRACT sent GENERIC GENERIC documented as of this encounter
--- OUTSIDE RECORDS SUMMARY | 2020-03-29 05:36 | XMS REPORT | Summary of Care ---
:1975 Author Organization [facility] Address [address] [place] [address] Care Team Providers Name Role Phone Rojas Mccoy DO Film Casting Operator Erika Primary Care Provider Reason for Referral [...] Procedures ECHO ROUTINE W/DOPPLER COLOR Preferred Location: [facility] [address] RAVI [address] [place] [phone] Radiology Services (Routine) Status Reason Specialty Diagnoses [...] REST [address] [place] [address] Reason for Visit Reason Comments Follow-up Ekg Encounter Details Date Type Department Care Team Description 02/28/2020 Office Visit [facility] Mariposa Crawford (dyspnea on exertion) (Primary Dx); Cardiology- Cherie Luque MD Essential hypertension; [address] Pulmonary hypertension; Drive[address] Nonobstructive atherosclerosis of rodrigues ry artery; [place] ESRD (end stage renal disease) on dialysis; [phone] Atypical chest pain; [phone] Uncontrolled hypertension; [phone] Encounter for p re-operative cardiovascular clearance (Fax) [...] daily. Insulin Glargine inject 25 0 Act kristine (BASAGLAR KWIKPEN Units under U-100 INSULIN) 100 [...] with No / Unsure 02/28/2020 12:45 PM MARKETING ANALYTICS MANAGER someone who was confirmed or suspected to have Coronavirus / COVID-19? documented as of this encounter Last Filed Vital Signs Vital Sign Reading Time Taken Comments Blood Pressure 162/95 02/28/2020 1:18 PM MARKETING ANALYTICS MANAGER Pulse 72 02/28/2020 1:18 PM MARKETING ANALYTICS MANAGER Temperature - - Respiratory Rate 18 02/28/2020 1:06 PM MARKETING ANALYTICS MANAGER Oxygen Saturation 98% 02/28/2020 1:06 PM MARKETING ANALYTICS MANAGER Inhaled Oxygen Concentration - - Weight 91.7 kg (202 lb 1.6 oz) 02/28/2020 1:06 PM MARKETING ANALYTICS MANAGER Height 167.6 cm (5' 6") 02/28/2020 1:06 PM MARKETING ANALYTICS MANAGER Body Mass Index 32.62 02/28/2020 1:06 PM MARKETING ANALYTICS MANAGER documented in this encounter Progress Notes Mariposa Crawford MD - 02/28/2020 1:00 PM CST [facility] Cardiology Consult Note Patient: Chase Chacon Jr. [...] reported having chest discomfort going to the [facility] last month. He was seen in the [...] file Gets together: Not on file Attends sikh service: Not on file Active member of [...] ROUTINE ECHO ROUTINE W/DOPPLER COLOR Preferred Location: [facility] 2. Essential hypertension NM MYOCARDIUM PERFUSION STRESS AND REST EKG-12 LEAD ROUTINE ECHO ROUTINE W/DOPPLER COLOR Preferred Location: [facility] 3. Pulmonary hypertension NM MYOCARDIUM PERFUSION STRESS AND REST EKG-12 LEAD ROUTINE ECHO ROUTINE W/DOPPLER COLOR Preferred Location: [facility] 4. Nonobstructive atherosclerosis of coronary artery NM MYOCARDIUM PERFUSION STRESS AND REST EKG-12 LEAD ROUTINE ECHO ROUTINE W/DOPPLER COLOR Preferred Location: [facility] 5. ESRD (end stage renal disease) on dialysis NM MYOCARDIUM PERFUSION STRESS AND REST EKG-12 LEAD ROUTINE ECHO ROUTINE W/DOPPLER COLOR Preferred Location: [facility] 6. Atypical chest pain NM MYOCARDIUM PERFUSION STRESS AND REST EKG-12 LEAD ROUTINE ECHO ROUTINE W/DOPPLER COLOR Preferred Location: [facility] 7. Uncontrolled hypertension NM MYOCARDIUM PERFUSION STRESS AND REST EKG-12 LEAD ROUTINE ECHO ROUTINE W/DOPPLER COLOR Preferred Location: [facility] 8. Encounter for pre-operative cardiovascular clearance NM MYOCARDIUM PERFUSION STRESS AND REST EKG-12 LEAD ROUTINE ECHO ROUTINE W/DOPPLER COLOR Preferred Location: [facility] Atypical chest pain: EKG done in [...] REST ECHO ROUTINE W/DOPPLER COLOR Preferred Location: [facility] Requested Prescriptions No prescriptions requested or [...] feel free to call our office at [phone]. I would be happy to be of further assistance for Chase Chacon JrMena wellbeing. Bill Crawford MD Video Production Coordinator, Division of Cardiology [facility] ETING ANALYTICS MANAGER documented in this encounter Plan of Treatment Date Type Specialty Care Team Description 02/22/2021 Laboratory Only Cardiology Pc, Adc Echo Room 1 - 03/01/2021 Office Visit Cardiology Mariposa Crawford MD [address] RAVI [address] [place] [phone] Name Type Priority Associated Diagnoses Order [...] nts EKG-12 LEAD Routine 02/28/2020 1:27 PM MARKETING ANALYTICS MANAGER documented in this encounter Results Not on [...] T ype Group Dates MEDICARE MEDICARE PART [id number] 2012-Pres [phone] Medicare A & B ent [phone] [id number] [place] SELF [id number] COMMERCIAL COMMERCIAL [id number] 2016-Pre HMO /PPO/POS NON-CONTRACT NON-CONTRACT sent GENERIC GENERIC documented as of this encounter
--- OUTSIDE RECORDS SUMMARY | 2020-03-29 05:37 | XMS REPORT | Summary of Care ---
:1975 Author Organization [facility] Address [address] [place] [address] Care Team Providers Name Role Phone Rojas Mccoy DO Physical Damage Appraiser Erika Primary Care Provider Reason for Visit Auth/Cert Status Reason Specialty Diagnoses / Procedures Referred By C ontact Referred To Contact Radiology Procedures Adc Nuclear [place] CV STRS TST Medicine XERS&/OR RX CONT ECG [address] [place] [address] W/O [address]R [address] [place] CARDIAC STRESS [place], [place] TST,TRACING ONLY [phone] [place] CARDIAC STRESS TST,INTERP/REPT ONLY Encounter Details Date Type Department Care Team Description 03/14/2020 Hospital Encounter [facility] Mariposa Schmidt, Devin Saleh Nuclear Medicine [address] [facility] [address] kristine [address] [place] [address] [place], [place] [phone] Allergies Active Allergy Reactions Severity Noted Date Comments Promethazine Hcl Anxiety Low 10/08/2016 "jumpy" documented as of this encounter (statuses as of 03/15/2020) Medications Medication Sig Dispensed Refills Start Date End Date Status ALPRAZolam (XANAX) 0.25 Take 0.25 mg by [...] tiZANidine 2 mg tablet 1 07/10/2018 Active amLODIPine 10 mg tablet Take 10 mg by 0 Active mouth daily. aspirin 81 mg EC tablet Take 81 mg by 0 Active mouth daily. atorvastatin 40 mg Take 1 tablet by 90 tablet 3 02/02/2019 Active tabletIndications: mouth at bedtime. Essential hypertension sevelamer 800 mg tablet Take 2,400 mg by 0 Active mouth 3 (three) times daily with meals. sevelamer (RENVELA) 800 Take 800 mg by 0 Active mg tablet mouth 3 (three) times daily with meals. documented as of this encounter (statuses as of 03/15/2020) Active Problems Problem Noted Date Obesity (BMI 30-39.9) 07/23/2018 Hypertension 03/17/2014 Cataract 03/17/2010 Overview: fixed bilaterally DM (diabetes mellitus) 03/17/1992 Nephropathy IBS (irritable bowel syndrome) Gastroparesis ESRD (end stage renal disease) on dialysis Secondary hyperparathyroidism of renal origin Retinopathy documented as of this encounter (statuses as of 03/15/2020) Immunizations Name Administration Dates Next Due Hep [...] been in contact with No / Unsure 03/14/2020 9:12 AM SPECIMEN COLLECTOR someone who was confirmed or suspected to have Coronavirus / COVID-19? documented as of this encounter Last Filed Vital Signs Not on filedocumented in this encounter Plan of Treatment Date Type Specialty Care Team Description 02/22/2021 Laboratory Only Cardiology Pc, Adc Echo Room 1 - 03/01/2021 Office Visit Cardiology Mariposa Crawford MD [address]AVI [address] [place] [address] [phone] Health Maintenance Due Date Last Done [...] Name Priority Date/Time Associated Diagnosis Comme nts NM MYOCARDIUM Routine 03/14/2020 1:09 SHORT (dyspnea on Results for this PERFUSION STRESS PM SPECIMEN COLLECTOR exertion) procedure are in AND REST Essential hypert ension the results Pulmonary hypert ension section. Nonobstructive atherosclerosis of coronary artery ESRD (end stage renal disease) on dial ysis Atypical chest p ain Uncontrolled hypertension Encounter for pre-operative cardiovascular clearance documented in this encounter Results NM MYOCARDIUM PERFUSION STRESS AND REST (03/14/2020 1:09 PM SPECIMEN COLLECTOR) Specimen Impressions Performed At Impression: PACS/VR/DOSE No reversible perfusion defect. Preserved ejection fra ction and normal wall thickening. I was present for the stress procedure. Narrative Performed At This result has an attachment that is no t available. Pharmacological stress myocardial perfusion imaging report PACS/VR/DOSE Type: Technetium 99 labeled Myoview rest/stress single isotope SPECT imaging with Ragadenoson pharmacological stress and ga mannie SPECT imaging. Indication: dyspnea Clinical history: hypertension, ESRD on dialysis Procedure: Pharmacological stress test was performed with a bolus dose of 0.4 mg of Ragadenoson. Gated myocardial perfusion imaging was pe rformed at rest following the injection of 14.9 millicuries of technet ium labeled Myoview and post stress following the injection of 41.2 millic uries of technetium labeled tetrofosmin. Findings: The overall quality of the study was good. Stress EKG revealed no inducible ischemia, reported se parately. SPECT images demonstrate a small and mild basal infero lateral segment fixed perfusion defect. Gated SPECT images demonstrate normal wall motion and myocardial thickening. Stress Values: EDV = 133 mL; ESV = 53 mL; EF = 60%. Rest Values: EDV = 144 mL; ESV = 65 mL; EF = 55%. Procedure Note [facility], Radiant Results Inft User - 2019 5:18 PM SPECIMEN COLLECTOR Pharmacological stress myocardial perfusion imaging report Type: Technetium 99 labeled Myoview rest /stress single isotope SPECT imaging with Ragadenoson pharmacological stress and gated SPECT imaging. Indication: dyspnea Clinical history: hypertension, ESRD on dialysis Procedure: Pharmacological stress test was performe d with a bolus dose of 0.4 mg of Ragadenoson. Gated myocardial perfusion imaging was performed at rest following the injection of 14.9 millicur ies of technetium labeled Myoview and post stress following the injection of 41.2 millicuries of technetium labeled tetrofosmin. Findings: The overall quality of the study was goo d. Stress EKG revealed no inducible ischemi a, reported separately. SPECT images demonstrate a small and mil d basal inferolateral segment fixed perfusion defect. Gated SPECT images demonstrate normal wa ll motion and myocardial thickening. Stress Values: EDV = 133 mL; ESV = 53 m L; EF = 60%. Rest Values: EDV = 144 mL; ESV = 65 mL; EF = 55%. IMPRESSION Impression: No reversible perfusion defect. Preserve d ejection fraction and normal wall thickening. I was present for the stress procedure. Performing Organization Address City/State/Zipcode Phone Number PACS/VR/DOSE documented in this encounter Insurance Payer Benefit Plan / Subscriber ID Effective Phone Address T ype Group Dates MEDICARE MEDICARE PART [id number] 2012-Pres [phone] Medicare A & B ent [phone] [id number] [place] [phone] COMMERCIAL Tipzu [id number] 2016-Pre HMO /PPO/POS NON-CONTRACT NON-CONTRACT sent GENERIC GENERIC documented as of this encounter
--- OUTSIDE RECORDS SUMMARY | 2020-03-29 05:37 | XMS REPORT | Summary of Care ---
:1975 Author Organization [facility] Address [address] [place] [address] Care Team Providers Name Role Phone Rojas Mccoy DO Transmission System Operator Erika Primary Care Provider Reason for Visit Auth/Cert Status Reason Specialty Diagnoses / Procedures Referred By C ontact Referred To Contact Radiology Procedures Adc Nuclear [place] CV STRS TST Medicine XERS&/OR RX CONT ECG [address] [place] [address] [address]R [address] [place] CARD[place], [place] TST,TRACING ONLY [phone] [place] CARDIAC STRESS TST,INTERP/REPT ONLY Encounter Details Date Type Department Care Team Description 03/14/2020 Hospital Encounter [facility] Mariposa Schmidt, Devin Saleh Nuclear Medicine [address] [employer] [facility] [employer] [facility] [address] kristine [address] [place] [address] [place], [place] [phone] Allergies Active Allergy Reactions Severity Noted [...] with No / Unsure 03/14/2020 9:12 AM SKEIN STRAIGHTENER someone who was confirmed or suspected to have Coronavirus / COVID-19? documented as of this encounter Last Filed Vital Signs Not on filedocumented in this encounter Plan of Treatment Date Type Specialty Care Team Description 02/22/2021 Laboratory Only Cardiology Pc, Adc Echo Room 1 - 03/01/2021 Office Visit Cardiology Mariposa Crawford MD [address]AVI [address] [place] [phone] Health Maintenance Due Date Last Done [...] on Results for this PERFUSION STRESS PM SKEIN STRAIGHTENER exertion) procedure are in AND REST Essential hypert ension the results Pulmonary hypert ension section. Nonobstructive atherosclerosis of coronary artery ESRD (end stage renal disease) on dial ysis Atypical chest p ain Uncontrolled hypertension Encounter for pre-operative cardiovascular clearance documented in this encounter Results NM MYOCARDIUM PERFUSION STRESS AND REST (03/14/2020 1:09 PM SKEIN STRAIGHTENER) Specimen Impressions Performed At Impression: PACS/VR/DOSE No [...] Results Inft User - 2019 5:18 PM SKEIN STRAIGHTENER Pharmacological stress myocardial perfusion imaging report Type: [...] T ype Group Dates MEDICARE MEDICARE PART [id number] 2012-Pres [phone] [address] Medicare A & B ent [id number] [place] SELF [phone] COMMERCIAL [id number] 2016-Pre HMO /PPO/POS NON-CONTRACT NON-CONTRACT sent GENERIC GENERIC documented as of this encounter
--- OUTSIDE RECORDS SUMMARY | 2020-03-29 05:37 | XMS REPORT | Summary of Care ---
:1975 Author Organization [facility] Address [address] [place] [address] Care Team Providers Name Role Phone Rojas Mccoy DO Electricians Top Helper Erika Primary Care Provider Reason for Visit Auth/Cert Status Reason Specialty Diagnoses / Procedures Referred By C ontact Referred To Contact Radiology Procedures Adc Nuclear [place] CV STRS TST Medicine XERS&/OR RX CONT ECG [address] [place] [address] W/O [address]R [address] [place] CARDIAC [place], [place] TST,TRACING ONLY [phone] [place] CARDIAC STRESS TST,INTERP/REPT ONLY Encounter Details Date Type Department Care Team Description 03/14/2020 Hospital Encounter [facility] Mariposa Schmidt, Devin Saleh Nuclear Medicine [address] [facility] [address] kristine [address]AV[address] [place] [address] [place], [place] [phone] Allergies Active Allergy Reactions Severity Noted [...] with No / Unsure 03/14/2020 9:12 AM NURSE LIAISON someone who was confirmed or suspected to have Coronavirus / COVID-19? documented as of this encounter Last Filed Vital Signs Not on filedocumented in this encounter Plan of Treatment Date Type Specialty Care Team Description 02/22/2021 Laboratory Only Cardiology Pc, Adc Echo Room 1 - 03/01/2021 Office Visit Cardiology Mariposa Crawford MD [address] [place] [phone] Health Maintenance Due Date Last Done [...] on Results for this PERFUSION STRESS PM NURSE LIAISON exertion) procedure are in AND REST Essential hypert ension the results Pulmonary hypert ension section. Nonobstructive atherosclerosis of coronary artery ESRD (end stage renal disease) on dial ysis Atypical chest p ain Uncontrolled hypertension Encounter for pre-operative cardiovascular clearance documented in this encounter Results Not on filedocumented in this encounter Administered Medications Medication Order MAR Action Action Date Dose Rate Site tc 99m-tetrofosmin Given 03/14/2020 9:45 AM 14.9 millicuries (MYOVIEW) injection 14.9 NURSE LIAISON millicurie 14.9 millicurie, Intravenous, ONCE, 1 dose, 03/14/20 at 0945, Routine documented in this encounter Insurance Payer Benefit Plan / Subscriber ID Effective Phone Address T ype Group Dates MEDICARE MEDICARE PART [id number] 2012-Pres [phone] [address] Medicare A & B ent [phone] [id number] [place] SEL[place] [phone] COMMERCIAL COMMERCIAL [id number] 2016-Pre HMO /PPO/POS NON-CONTRACT NON-CONTRACT sent GENERIC GENERIC documented as of this encounter
[2020-03-29] MEDS ORDERED: HYDRALAZINE HCL 20 MG/ML VIAL IV PRN (05:38)
--- OUTSIDE RECORDS SUMMARY | 2020-03-29 05:38 | XMS REPORT | Summary of Care ---
:1975 Author Organization [facility] [[email or web address] Address [address] [place] [address] Care Team Providers Name Role Phone Rojas Mccoy DO Mirror Framer Erika Primary Care Provider Reason for Visit Reason Comments Evaluation Encounter Details Date Type Department Care Team Description 03/28/2020 Telephone [facility] Transplant- Lauren Moore MD Evaluation [facility] [address] [place], [place] [phone] [facility], Entr[place], [place] [phone] Allergies Active Allergy Reactions Severity Noted Date Comments Promethazine Hcl Anxiety Low 10/08/2016 "jumpy" documented as of this encounter (statuses as of 03/28/2020) Medications Medication Sig Dispensed Refills Start Date [...] as of this encounter (statuses as of 03/28/2020) Active Problems Problem Noted Date Obesity (BMI 30-39.9) 07/23/2018 Hypertension 03/17/2014 Cataract 03/17/2010 Overview: fixed bilaterally DM (diabetes mellitus) 03/17/1992 Nephropathy IBS (irritable bowel syndrome) Gastroparesis ESRD (end stage renal disease) on dialysis Secondary hyperparathyroidism of renal origin Retinopathy documented as of this encounter (statuses as of 03/28/2020) Immunizations Name Administration Dates Next Due Hep [...] with No / Unsure 03/14/2020 9:12 AM TRANSLITERATOR someone who was confirmed or suspected to have Coronavirus / COVID-19? documented as of this encounter Last Filed Vital Signs Not on filedocumented in this encounter Miscellaneous Notes Telephone Encounter - Sofía Penn RN - 03/28/2020 2:53 PM CSTLeft message for call back documented in this encounter Plan of Treatment Date Type Specialty Care Team Description 02/22/2021 Laboratory Only Cardiology Pc, Adc Echo Room 1 - 03/01/2021 Office Visit Cardiology Mariposa Crawford MD [address] [place] [phone] Health Maintenance Due Date Last Done [...] history exists documented as of this encounter Results Not on filedocumented in this encounter Insurance Payer Benefit Plan / Subscriber ID Effective Phone Address T ype Group Dates MEDICARE MEDICARE PART [id number] 2012-Pres [phone] [address] Medicare A & B ent [id number] [place]EL[place] [phone] COMMERCIAL COMMERCIAL [id number] 2016-Pre HMO /PPO/POS NON-CONTRACT NON-CONTRACT sent GENERIC GENERIC documented as of this encounter
--- OUTSIDE RECORDS SUMMARY | 2020-03-29 05:38 | XMS REPORT | Summary of Care ---
:1975 Author Organization [facility] Address [address] [place] [address] Care Team Providers Name Role Phone Rojas Mccoy DO Chief Jailer Erika Primary Care Provider Reason for Referral Radiology Services (Routine) Status Reason Specialty Diagnoses / Procedures Referred By Elana eferred To Contact Contact Closed Diagnostic Diagnoses SHORT (dyspnea on exertion) Essential hypertension Pulmonary hypertension Nonobstructive atherosclerosis of coronary artery ESRD (end stage renal disease) on dialysis Atypical chest pain Uncontrolled hypertension Mariposa Crawford Radiology Encounter for pre-operative cardiovascular clearance MD Ene Procedures NM MYOCARDIUM PERFUSION STRESS AND REST [address] [place] [address] Reason for Visit Auth/Cert Status Reason Specialty Diagnoses / Procedures Referred By C ontact Referred To Contact Radiology Procedures Adc Nuclear [place] CV STRS TST Medicine XERS&/OR RX CONT ECG [address] [place] [address] W/O [address]&R [address] [place] CARDIAC STRESS [facility] CORBIN chapman TST,TRACING ONLY [phone] [place] CARDIAC STRESS TST,INTERP/REPT ONLY Encounter Details Date Type Department Care Team Description 03/14/2020 Hospital Encounter [facility] Mariposa Crawford Arrived [place] Nuclear MD Medicine [address] [facility] [address] kristine [address] [place] [address] [place], [place] [phone] Allergies Active Allergy Reactions Severity Noted Date [...] with No / Unsure 03/14/2020 9:12 AM AGRONOMY LOCATION MANAGER someone who was confirmed or suspected to have Coronavirus / COVID-19? documented as of this encounter Last Filed Vital Signs Not on filedocumented in this encounter Nursing Notes Roz Heard RN - 03/14/2020 10:47 AM CSTAndnba Chacon Jr. is a 44 year old male received to Nuclear Medicine for Stress Test. Pt is AAOx4 andis in NAD. Pt identified using Name & . Pt endorses being NPO since 03/13/2020. Indication for this Stress Test is preop. Last caffeine intake @ 03/13/2020 NM Tech monitoring is ADCampus Supervising physician Joshua obtained consent at 1103 Time out completed 1105 Lexiscan 0.4mg/5mL injected at 1105, followed by 5mL NS flush. Pre Stress Test vitals are: BP 168/62 HR 60 Resp 18 O2 sat 95 Injection vitals are: BP 115/67 HR 73 Resp O2 sat 100 Recovery vitals are: BP 115/67 HR 73 Resp O2 sat 93 documented in this encounter Miscellaneous Notes Result QuickNote - Mariposa Crawford MD - 03/14/2020 9:30 AM CSTNegative stress test NM Stress 02/2020 Impression: No reversible perfusion defect. Preserved ejection fraction and normal wall thickening. documented in this encounter Plan of Treatment Date Type Specialty Care Team Description 02/22/2021 Laboratory Only Cardiology Pc, Adc Echo Room 1 - 03/01/2021 Office Visit Cardiology Mariposa Crawford MD [address] RAVI [address] [place] [address], [place] [phone] Health Maintenance Due Date Last Done [...] on Results for this PERFUSION STRESS PM AGRONOMY LOCATION MANAGER exertion) procedure are in AND REST Essential hypert ension the results Pulmonary hypert ension section. Nonobstructive atherosclerosis of coronary artery ESRD (end stage renal disease) on dial ysis Atypical chest p ain Uncontrolled hypertension Encounter for pre-operative cardiovascular clearance documented in this encounter Results NM MYOCARDIUM PERFUSION STRESS AND REST (03/14/2020 1:09 PM AGRONOMY LOCATION MANAGER) Specimen Impressions Performed At Impression: PACS/VR/DOSE No [...] Results Inft User - 2019 5:18 PM AGRONOMY LOCATION MANAGER Pharmacological stress myocardial perfusion imaging report Type: [...] Phone Number PACS/VR/DOSE documented in this encounter Visit Diagnoses Diagnosis SHORT (dyspnea on exertion) Other dyspnea and respiratory abnormalit y Essential hypertension Unspecified essential hypertension Pulmonary hypertension Other chronic pulmonary heart diseases Nonobstructive atherosclerosis of rodrigues ry artery ESRD (end stage renal disease) on dialys is End stage renal disease Atypical chest pain Other chest pain Uncontrolled hypertension Unspecified essential hypertension Encounter for pre-operative cardiovascul ar clearance Pre-operative cardiovascular examination documented in this encounter Administered Medications Medication Order MAR Action Action Date Dose Rate Site Regadenoson (LEXISCAN) injection Given 03/14/2020 11:05 AM AGRONOMY LOCATION MANAGER 0.4 mg PRN, Starting 03/14/20 at 1105, Until Tu03/14/20 at 1105, Routine tc 99m-tetrofosmin (MYOVIEW) Given 03/14/2020 11:00 AM AGRONOMY LOCATION MANAGER 41.2 millicuries injection 41.2 millicurie 41.2 millicurie, Intravenous, ONCE, 1 dose, 03/14/20 at 1115, Routine documented in this encounter Insurance Payer Benefit Plan / Subscriber ID Effective Phone Address T ype Group Dates MEDICARE MEDICARE PART [id number] 2012-Pres [phone] [address] Medicare A & B ent [phone] [id number] [place] [id number] COMMERCIAL COMMERCIAL [id number] 2016-Pre HMO /PPO/POS NON-CONTRACT NON-CONTRACT sent GENERIC GENERIC documented as of this encounter
[2020-03-29 05:40] LABS: Absolute Lymphocytes (CBC) 2.6 K/uL (0.7-4.9); Basophils % 0.3 % (0-1.3); Hematocrit 27.5 % (39.6-49.0); Lymphocytes % 21.8 % (15.3-44.8); MPV 8.8 fL (7.6-11.3); RBC Red Blood Cell Count 2.99 M/uL (4.33-5.43)
[2020-03-29 05:44] LABS: Protime INR 0.92
[2020-03-29] MEDS: DEXTROSE 10%-WATER 500 ML IV SCH ×2 (05:45→10:45)
--- NOTE | 2020-03-29 05:46 | P.HP ---
Certification for Inpatient Patient admitted to: Inpatient With expected LOS: >2 Midnights Patient will require the following post-hospital care: None Practitioner: I am a practitioner with admitting privileges, knowledge of patient current condition, hospital course, and medical plan of care. Services: Services provided to patient in accordance with Admission requirements found in Title 42 Section 412.3 of the Code of Federal Regulations Patient History Date of Service: 03/29/20 Reason for admission: ams History of Present Illness: 44 YR OLD MALE WITH htn , esrd ON hd mwf -admitted after being tyshawn by brother for AMS - noted with low glucose to 17 -s/p D50 and glucose improved to 66 with arousal of patient - at time of interview , patient drowsy but able to hold conversation , report taking lantus by himself but think he may have taken too much dose -states transient diarrhea but unable to describe further, repeat glucose down to 23 Allergies No Known Allergies Allergy (Verified 09/29/19 04:11) Home Medications: ALPRAZolam [Alprazolam] 1 mg PO DAILY 09/29/19 Amitriptyline [Elavil*] 50 mg PO BEDTIME 09/29/19 Amlodipine Besylate [Norvasc] 10 mg PO DAILY 09/29/19 Atorvastatin Calcium 40 mg PO BEDTIME 09/29/19 Doxazosin [Cardura*] 4 mg PO BID 09/29/19 Erythromycin Base [Erythromycin] 250 mg PO BID 09/29/19 Insulin Aspart [Novolog] 20 unit SQ TID 09/29/19 Insulin Glargine,Hum.rec.anlog [Basaglar Kwikpen U-100] 20 unit SQ BEDTIME 09/29/19 Metoprolol Tartrate [Lopressor*] 25 mg PO BID #30 tab 09/29/19 Ondansetron HCl [Zofran] 4 mg PO Q8H PRN 09/29/19 Sevelamer Carbonate [Renvela*] 3 tab PO TIDWM 09/29/19 Sildenafil Citrate 50 mg PO PRN PRN 09/29/19 - Past Medical/Surgical History Diabetic: Yes -: Diabetes mellitus type 2, insulin dependent -: Hypertension -: GERD -: Diabetic gastroparesis -: End stage renal disease on hemodialysis -: Cataract surgery -: Laser for Retinal Detachment -: HD fistula surgery Psychosocial/ Personal History: Patient is . He has no children. - Family History Father -: Diabetes, Kidney disease - Social History Alcohol use: Yes CD- Drugs: No Caffeine use: No Review of Systems is unable to be obtained Physical Examination - Physical Exam General: Oriented x2, Delirious, Obese HEENT: Atraumatic, Normocephalic, PERRLA Neck: Supple, 2+ carotid pulse no bruit, JVD not distended Respiratory: Diminished, Crackles/rales Cardiovascular: No edema, Normal pulses, Regular rate/rhythm, Normal S1 S2, Other (left AVF in situ ) Gastrointestinal: Normal bowel sounds, Soft and benign, Non-distended, No tenderness Musculoskeletal: No clubbing, No swelling Neurological: Normal gait, Normal speech, Normal strength at 5/5 x4 extr, Normal tone - Studies labs reveiwed and pending Imagings Data: CXR -mild pul edema Assessment and Plan - Problems (Diagnosis) (1) Hypoglycemic coma Current Visit: Yes Status: Acute (2) Fluid overload Current Visit: No Status: Acute Qualifiers: (3) Diabetes mellitus Current Visit: No Status: Chronic Qualifiers: (4) ESRD (end stage renal disease) on dialysis Current Visit: No Status: Chronic (5) HTN (hypertension) Current Visit: No Status: Chronic Qualifiers: - Advance Directives Does patient have a Living Will: No Does patient have a Durable POA for Healthcare: No Physician Review: Patient Assessed, Agree with Above Assessment and Plan Physician Review Additional Text: Hypoglycemic Coma - switch from D5W to D50 - will bolus 2 amp of D50 again now -increase IVF rate to 100 cc/hr - follow glucose q1hr - admit to ICU for now - will rule out sepsis - Hold DM meds and insulin for now # ESRD- will consult renal for cont of dialysis today # HTN - resume home emds # DVT - heparin sc
[2020-03-29] MEDS ORDERED: D50W 25 GM/50 ML SYRINGE IV ONE (05:52)
[2020-03-29] MEDS ORDERED: D10W 250 ML IV ONE (05:53)
[2020-03-29 05:59] LABS: ALT/SGPT 12 U/L (12-78); AST/SGOT 13 U/L (15-37); Albumin 3.3 g/dL (3.4-5.0); Alkaline Phosphatase 75 U/L (45-117); BUN Blood Urea Nitrogen 68 mg/dL (7-18); Bicarbonate 25 mmol/L (21-32); Bilirubin Direct 0.1 mg/dL (0-0.2); Bilirubin Total 0.3 mg/dL (0.2-1.0); Glucose Level 16 mg/dL (74-106); Magnesium 2.8 mg/dL (1.8-2.4); NT PRO-BNP 20489 pg/mL (<125); Potassium 3.7 mmol/L (3.5-5.1); Protein, Total 8.3 g/dL (6.4-8.2); Sodium Level 143 mmol/L (136-145); Troponin (Emerg Dept Use Only) < 0.02 ng/mL (0.0-0.045)
[2020-03-29 06:41] LABS: Arterial Blood Carboxyhemoglob 1.5 % (0-1.5); Blood Gas Oxyhemoglobin 92.4 % (94-97)
[2020-03-29 06:59] LABS: SARS-COV-2 RT PCR NEGATIVE (NEGATIVE)
[2020-03-29 07:28] VITALS: BMI 30.7
--- NOTE | 2020-03-29 08:54 | RAD REPORT ---
EXAM DESCRIPTION: RAD - Chest Single View - 03/29/2020 6:43 am CLINICAL HISTORY: DYSPNEA Chest pain. COMPARISON: Chest Single View dated 09/29/2019; Chest Single View dated 01/22/2019; Chest Pa And Lat ( 2 Views) dated 08/04/2018; Chest Single View dated 08/02/2018 FINDINGS: Portable technique limits examination quality. The lungs are grossly clear. The heart is normal in size. No displaced fractures. IMPRESSION: No acute intrathoracic process suspected.
[2020-03-29 08:56] VITALS: BP 208/116
[2020-03-29] MEDS ORDERED: HEPARIN 5000 UNIT/ML 1 ML VIAL SQ SCH (09:00)
--- NOTE | 2020-03-29 09:54 | P.DS ---
Admission Date: 03/29/20 Discharge Date: 03/29/20 Disposition: DC HOME/HOME HEALTH CARE Discharge Condition: FAIR Reason for Admission: ams - Problems (1) Hypoglycemic coma Status: Acute (2) Diabetes mellitus Status: Chronic Qualifiers: (3) ESRD (end stage renal disease) on dialysis Status: Chronic (4) HTN (hypertension) Status: Chronic Qualifiers: Brief History of Present Illness: 44-year-old gentleman with a history of end-stage renal disease on hemodialysis and insulin-dependent diabetes was brought to the emergency department with mental status. Per report his blood sugar was down to 17. Patient was given D50 which brought it up to 66. His blood sugar dropped again to 23. Patient was started on D10 infusion and admitted for further management. Hospital Course: Patient admitted to the medical floor and continued on D10 IV infusion and frequent glucose monitoring. Patient became more awake, ate breakfast. He apparently disconnected the D10 infusion from his IV line. His blood sugar remained stable without the D10 Infusion over a period of 3 hrs. Patient requested to go home and to outpatient dialysis. Patient was told he could have dialysis as inpatient and wait for monitoring but he declined and wanted to go home as soon as possible. His blood sugar has stabilized over a period of 3 hrs. He is eating well. Patient has been instructed not to administer himself any insulin until his blood sugar is greater than 250 which he voiced understanding. Patient is discharged per his request. Vital Signs/Physical Exam: Temp Pulse Resp BP Pulse Ox 97.6 F 58 16 208/116 H 98 03/29/20 05:39 03/29/20 08:00 03/29/20 08:00 03/29/20 08:00 03/29/20 08:00 General: Alert, In no apparent distress, Oriented x3 Respiratory: Clear to auscultation bilaterally, Normal air movement Cardiovascular: No edema, Regular rate/rhythm, Normal S1 S2 Gastrointestinal: Soft and benign, Non-distended, No tenderness Musculoskeletal: No swelling Integumentary: No rashes Neurological: Normal strength at 5/5 x4 extr Laboratory Data at Discharge: WBC 12.1 K/uL (4.3-10.9) H 03/29/20 Unknown Hgb 9.1 g/dL (13.6-17.9) L 03/29/20 Unknown Hct 27.5 % (39.6-49.0) L 03/29/20 Unknown Plt Count 217 K/uL (152-406) 03/29/20 Unknown PT 10.9 SECONDS (9.5-12.5) 03/29/20 Unknown INR 0.92 03/29/20 Unknown Sodium 143 mmol/L (136-145) 03/29/20 Unknown Potassium 3.7 mmol/L (3.5-5.1) 03/29/20 Unknown BUN 68 mg/dL (7-18) H 03/29/20 Unknown Creatinine 9.96 mg/dL (0.55-1.3) H* 03/29/20 Unknown Glucose 16 mg/dL (74-106) L* 03/29/20 Unknown Magnesium 2.8 mg/dL (1.8-2.4) H 03/29/20 Unknown Total Bilirubin 0.3 mg/dL (0.2-1.0) 03/29/20 Unknown AST 13 U/L (15-37) L 03/29/20 Unknown ALT 12 U/L (12-78) 03/29/20 Unknown Alkaline Phosphatase 75 U/L (45-117) 03/29/20 Unknown Home Medications: ALPRAZolam [Alprazolam] 1 mg PO DAILY 09/29/19 Amitriptyline [Elavil*] 50 mg PO BEDTIME 09/29/19 Amlodipine Besylate [Norvasc] 10 mg PO DAILY 09/29/19 Atorvastatin Calcium 40 mg PO BEDTIME 09/29/19 Doxazosin [Cardura*] 4 mg PO BID 09/29/19 Erythromycin Base [Erythromycin] 250 mg PO BID 09/29/19 Insulin Aspart [Novolog] 20 unit SQ TID 09/29/19 Metoprolol Tartrate [Lopressor*] 25 mg PO BID #30 tab 09/29/19 Ondansetron HCl [Zofran] 4 mg PO Q8H PRN 09/29/19 Sevelamer Carbonate [Renvela*] 3 tab PO TIDWM 09/29/19 Sildenafil Citrate 50 mg PO PRN PRN 09/29/19 Dextrose [Glucose] 4 gm PO PRN PRN #30 tab.chew 03/29/20 Insulin Glargine,Hum.rec.anlog [Basaglar Kwikpen U-100] 10 unit SQ BEDTIME #10 ml 03/29/20 New Medications: Insulin Glargine,Hum.rec.anlog [Basaglar Kwikpen U-100] 10 unit SQ BEDTIME #10 ml Dextrose [Glucose] 4 gm PO PRN PRN #30 tab.chew PRN Reason: Low blood sugar Patient Discharge Instructions: Continue routine dialysis. Diet: ADA Activity: Ad chandrika Followup: Rojas Mccoy DO [ACTIVE - CAN ADMIT] - 1-2 Weeks Unknown,U [Primary Care Provider] - 1-2 Weeks
[2020-03-29 11:47] VITALS: TEMP 97.4; O2SAT 99
--- NOTE | 2020-03-29 16:10 | EKG ---
Test Date: 2020-03-29 Test Time: 04:00:48 Longwall Shearer Operator: RR MEASUREMENT RESULTS: Intervals: Rate: 87 FL: 186 QRSD: 94 QT: 406 QTc: 488 [place]: P: 43 FL: 186 QRS: -12 T: 83 INTERPRETIVE STATEMENTS: Normal sinus rhythm Nonspecific ST and T wave abnormality Prolonged QT Abnormal ECG Compared to ECG 09/29/2019 09:03:39 ST (T wave) deviation now present Electronically Signed On 03-29-20 16:08:36 [employer] by Jules Yadav
== END 2020-03-29 11:39 | disposition home health service (06) ==
LOC: ER 03:56 → ERHOLD 05:43 → INTOOBSV 05:43
PROVIDERS: ADMIT Internal Medicine; ATTEND Internal Medicine
DX: E11.641 Type 2 diabetes mellitus with hypoglycemia with coma (principal); E11.22 Type 2 diabetes mellitus with diabetic chronic kidney disease; I12.0 Hypertensive chronic kidney disease with stage 5 chronic kidney disease or end stage renal disease; N18.6 End stage renal disease; Z99.2 Dependence on renal dialysis; E87.70 Fluid overload, unspecified; Z20.822 Contact with and (suspected) exposure to COVID-19; Z79.4 Long term (current) use of insulin; R94.31 Abnormal electrocardiogram [ECG] [EKG]; E11.43 Type 2 diabetes mellitus with diabetic autonomic (poly)neuropathy; K31.84 Gastroparesis; K21.9 Gastro-esophageal reflux disease without esophagitis
CPT/HCPCS: 0240U; 36415; 71045; 80048; 80076; 82805; 82947; 83036; 83605; 83735; 83880; 84145; 84484; 85025; 85610; 87040; 93005; 99285; G0378

== ENCOUNTER 2020-04-10 05:08 | Emergency (ER) | payer OTHER ==
--- OUTSIDE RECORDS SUMMARY | 2020-04-10 05:10 | XMS REPORT | Clinical Summary ---
:1975 Author Organization [facility] Address [address] [place] [address] Care Team Providers Name Role Phone Unavailable [...] Not on file Results Not on fileafter 04/10/2019 Insurance Payer Benefit Plan / Subscriber ID Effective Phone Address T ype Group Dates MEDICARE MEDICARE A B [id number] 2012-Pre Med icare sent CIGNA CIGNA [id number] 2017-Pre [facility] sent Contracted
--- OUTSIDE RECORDS SUMMARY | 2020-04-10 05:11 | XMS REPORT | Continuity of Care Document ---
:1975 Author Organization [facility] Care Team Providers Name Role Phone [facility] Unavailable Un available Problems Problem Status Onset Classification Date Comments Sourc e Date Reported GASTROPARESIS Active 09/08/19 Condition 09/07/2014 [facility] dical 15 Group ERECTILE Active 09/08/19 Condition 09/07/2014 Medica l DYSFUNCTION 15 Group PHYSICAL Active 09/08/19 Condition 09/07/2014 Medica l EXAMINATION 15 Group PHYSICAL EXAM Inactive 09/09/19 Condition 09/07/2014 [facility] dical 14 Group HYPERLIPIDEMIA - Active 09/01/19 Condition 09/07/2014 Medical MIXED 14 Group PRE-OP CV EXAM Active 09/01/19 Condition 09/07/2014 [facility] edical 14 Group RENAL FAILURE, Active 06/06/19 Condition 09/07/2014 [facility] edical CHRONIC 13 Group ANEMIA IN CHRONIC Active 06/06/19 Condition 09/07/2014 [facility] Medical KIDNEY DISEASE 13 Group DIAB W/O COMP Active 06/03/19 Condition 09/07/2014 [facility] dical TYPE II/UNS NOT 13 [...] p Temperature Oral (F) 98.3 F 09/07/2014 [facility] Group Height 66 09/07/2014 Medical Grou p Weight 210 09/07/2014 Medical Grou p Respitory Rate 14 09/07/2014 Medical Gr oup Weight 204 09/08/2013 Medical Grou p Temperature Oral (F) 98.0 F 09/08/2013 [facility] Group Heart Rate 77 09/08/2013 Medical [...] Number For Provider Date Date Visit AUDIT [id number] 01/30 Physician s AUDIT [id number] 01/30 Physician s AUDIT [id number] 01/30 Physician s AUDIT [id number] 02/03 Physician s AUDIT [id number] 03/08 Physician s AUDIT [id number] 04/07 [facility] [phone] Oralia Gao, 08/31 08/31 [facility] Visit [facility] [place] [facility] [address] [facility] Office [phone] Lyric 09/08 09/08 M [facility] Visit 0420 MD Javier /2013 [facility] 9305 [facility] Lab Report [phone] [facility] 02/23 02/23 [place] 0570 MD Javier /2013 [facility] [place] [facility] Office [phone] Elmer 09/07 09/07 M [facility] [place] Visit 1320 MD Lupillo /2014 [facility] [place] Procedures No Data Provided for This Section Assessment and Plan No Data Provided for This Section Plan of Care No Data Provided for This Section Social History Social History Date Source Never A Smoker 04/07/2012 [facility] (Active) Never Drank Alcohol (Active) Family History No Data Provided for This Section Advance Directives Order Name Results Value Date Source Advance Directives Advance Directives No Advance 04/07/2012 [facility] Directives available. Advance Directives Advance Directives No Advance 03/08/2012 [facility] Directives available. Advance Directives Advance Directives No Advance 02/04/2012 [facility] Directives available. Advance Directives Advance Directives No Advance 02/01/2012 [facility] Directives available. Advance Directives Advance Directives No Advance 01/31/2012 [facility] Directives available. Advance Directives Advance Directives No Advance 01/31/2012 [facility] Directives available. Functional Status No Data Provided for This Section
--- OUTSIDE RECORDS SUMMARY | 2020-04-10 05:12 | XMS REPORT | Continuity of Care Document ---
:1975 Author Organization [facility] t Address [address] [place] [address] [address] [place] [address] Care Team Providers Name Role Phone Oscar [...] Medical Group [facility] 10:20:15 l PRE-OP 00:00: [place] CV EXAM 00 Active 08/31/2013 Condition 5 Medical Group RENAL Condition Active 2014-09-07 Mem oria FAILURE, 06-05 10:20:15 l CHRONIC RENAL 00:00: [place] FAILURE, 00 CHRONIC Active 06/05/2012 Condition 5 [...] Mem oria 06-02 10:20:15 l COUGH 00:00: [place] 00 Active 06/02/2012 Condition 5 Medical Group DIABETIC Condition Active 2011-032014-09-07 M emoria RETINOPATH 05-12 10:20:15 l Y DIABETIC 00:00: Simon n RETINOPAT 00 HY Active 2 Condition 09/07/2014 Medical Group HYPERTENSI Condition Active 2011-032014-09-07 Memoria ON 05-12 10:20:15 l 00:00: [place] HYPERTENSI 00 ON Active 2 Condition 09/07/2014 Medical Group Chronic Problem Active 2012-04-07 Mariano steven Kidney 21:40:14 l Disease, Chronic [place] nn Stage 4 Kidney Disease, Stage 4 Active 3 [facility] End Stage Problem Active 2012-04-07 Me moria Renal 21:40:14 l Disease End [place] Stage Renal Disease Active 3 [facility] History of Past Illness Condition Condition Condition Status Onset Resolution Last Treating Co mments Source Name Details Category Date Date Treatment Clinician Date PHYSICAL Condition Inactiv 2014-09-07 2014-09-07 Memoria EXAM e 09-08 10:20:15 10:20:15 l PHYSICAL 00:00: Simon n EXAM 00 Inactive 09/08/2013 Condition 5 [facility] Allergies, Adverse Reactions, Alerts Allergy Allergy Status Severity Reaction(s) Onset Inactive Treating Comm ents Source Name Type Date Date Clinician Prom[facility]itha [facility]: Medical reaction 00 Center s No Known No Known Active Memori a Drug Drug l Allergie Allergie Simon n s s Not Not Active Memoria Known Known l [place] Social History Social Habit Start Date Stop Date Quantity Comments Source Sex Assigned At [facility] Social History 2012-04-07 2012-04-07 [facility] lucy 21:40:14 21:40:14 Smoking Status Start Date Stop Date Source Never smoker [facility] Medications Ordered Filled Start Stop Current Ordering Indication Dosage Frequency Signature Comments Components Source Medication Medication Date Date Medication? Clinician (SIG) Name Name CALCIUM Yes one cap Memoria ACETATE 667 6-24 tid with l MG CAPS 00:00: meals [place] 00 BD INSULIN Yes use as Memor ia SYRINGE 3-05 directed l HALF-UNIT 00:00: [place] 31G X 5/16" 00 0.3 ML MISC BD PEN Yes use as Memoria NEEDLE 3-04 directed l SHORT U/F 00:00: [place] 31G X 8 MM 00 MISC APIDRA 100 No inject Memor ia UNIT/ML 3-04 10units in l SOLN 00:00: the am, [place] 00 15units at lunch,and 10 units in the evening BD PEN Yes use as Memoria NEEDLE 3-04 directed l SHORT U/F 00:00: [place] 31G X 8 MM 00 MISC NOVOLOG 100 2012-03 Yes inject Mariano steven UNIT/ML 1-19 10-15units l SOLN 00:00: tid with [place] 00 meals sc NOVOLOG 100 2012-03 Yes inject Mariano steven UNIT/ML 1-19 10-15units l SOLN 00:00: tid with [place] 00 meals sc ZITHROMAX No Take 2 [...] oria Medications 1-17 Medication l 01:30: s [place] 26 REGLAN 10 No 1 po qd Memor ia MG TABS 9-28 prn l 00:00: [place] 00 ACCU-CHEK Yes Test 3 Memori a [...] steven 30 MG TABS 9-21 l 00:00: [place] LANTUS Yes 18 units Memoria SOLOSTAR 9-21 at bedtime l 100 UNIT/ML 00:00: sc Simon n SOLN 00 LIPITOR 20 No 1 po qd Mariano steven MG TABS 9-21 l 00:00: LISINOPRIL Yes 1 tablet Mem oria 30 MG TABS 9-21 orally l 00:00: twice a [place] week on Friday and Vital Signs Vital Name Observation Time Observation Value Comments Source Systolic (mm Hg) 2014-09-07 15:20:15 Mariano rial [place] Diastolic (mm Hg) 2014-09-07 15:20:15 Mem orial [place] Heart Rate 2014-09-07 [facility] Oral (F) 2014-09-07 15:20:15 98.3 F [facility] [place] Height 2014-09-07 15:20:15 [facility] [place] Weight 2014-09-07 15:20:15 [facility] [place] Respitory Rate 2014-09-07 15:20:15 Memori al [place] Weight 2013-09-08 14:22:12 [facility] Temperature Oral (F) 2013-09-08 14:22:12 98.0 F [facility] [place] Heart Rate 2013-09-08 14:22:12 [facility] [place] Systolic (mm Hg) 2013-09-08 14:22:12 Mariano rial [place] Diastolic (mm Hg) 2013-09-08 14:22:12 Mem orial [place] Systolic (mm Hg) 2013-08-31 15:43:31 Mariano rial [place] Diastolic (mm Hg) 2013-08-31 15:43:31 Mem orial [place] Heart Rate 2013-08-31 15:43:31 [facility] [place] Weight 2013-08-31 15:43:31 [facility] [place] Weight 2012-06-02 15:36:10 [facility] [place] Height 2012-06-02 15:36:10 [facility] [place] Temperature Oral (F) 2012-06-02 15:36:10 98.4 F [facility] [place] Heart Rate 2012-06-02 15:36:10 [facility] [place] Systolic (mm Hg) 2012-06-02 15:36:10 Mariano rial [place] Diastolic (mm Hg) 2012-06-02 15:36:10 Mem orial [place] Procedures This patient has no known procedures. Encounters Start End Encounter Admission Attending Care Care Encounter Source Date/Time Date/Time Type Type Clinicians Facility Department ID 2018-06-22 Inpatient [facility] [id number] [facility] 07:53:49 2018-06-22 Outpatient [facility] [id number] [facility] 07:53:48 2020-03-28 2020-03-28 [facility] [id number] 00:00:00 00:00:00 Lauren Bobo [place] [id number] [facility] [id number] [place] [id number] AND [facility] 2020-03-14 2020-03-14 [facility] [id number] 09:14:33 23:59:00 Encounter Mariposa Crespo [id number] [place] 4.2.7.2.686 [place] [id number] 2020-03-14 2020-03-14 [facility] [id number] 09:14:13 23:59:00 Encounter Mariposa Crespo [id number] [place] 4.2.7.2.686 [place] [id number] 2020-03-14 2020-03-14 [facility] [id number] 09:13:41 09:13:41 Encounter Mariposa Crespo [id number] [place] 4.2.7.2.686 [place] [id number] 2020-03-14 2020-03-14 [facility] [id number] 09:12:26 09:12:26 Encounter Mariposa Crespo [id number] [place] 4.2.7.2.686 [place] [id number] 2020-02-28 2020-02-28 [facility] [id number] 12:46:09 13:47:51 Visit Mariposa Crespo [id number] [place] 4.2.7.2.686 [facility] [id number] nal 059 [facility] 2012-04-07 2012-04-07 Outpatient [facility] [id number] 15:40:31 15:40:14 2012-03-08 2012-03-08 Outpatient [facility] [id number] 13:29:27 13:29:12 2012-02-04 2012-02-04 Outpatient [facility]IE [id number] 11:20:09 11:19:53 2012-01-31 2012-01-31 Outpatient MHIE MHIE [id number] 19:30:42 19:30:26 2012-01-31 2012-01-31 Outpatient [facility]IE MHIE [id number] 16:34:08 16:33:53 2012-01-31 2012-01-31 Outpatient MHIE MHIE [id number] 14:49:27 14:49:11 Results Test Description Test Time Test Comments Results Result Comments Source Chemistry 2012-10-[address] [facility] nn 14:45:00 Chemistry 2012-10-[address] [facility] nn 14:45:00 Chemistry 2012-10-23 129 [facility] [place] [...] code = BUN/CREAT) 9 1 625 [facility] FjgaiwkJyrohqftv7036-84-08 14:45:003.6[facility] 2012-10-23 14:45:009.0[facility] FsnwddxIkzusjens6118-00-37 14:45:0021[facility] LnknmxtMblkxrnil5698-66-87 14:45:009[facility] EzabqrbYhehqicgb5122-89-26 14:45:00 67[facility] ZautmllSvhqbstdmq8251-40-69 14:45:0013.2[facility] 2012-10-23 14:45:0041.5[facility] SvmlnmwLdjamxqgbi0309-58-62 14:45:11553 K/CMM [facility] XxekhyrXebapxpsf8120-93-17 21:12:005.1[facility] 2012-06-04 21:12:85720Lqocwtii LkzunjhHnxtmkzlz9563-78-22 21:12:59874Vwcjogbp ImcsllkCqhkfalbh4249-08-66 21:12:0037[facility] RtmbqsuVrctabvgq1718-23-58 21:12:01412Eudgbezs OxaymlrBzfffxdfe3754-17-66 21:12:36008 MEQ/LMemorial [place] Ytoksgifm1598-72-62 21:12:004.6 MEQ/LMemorial FgrznruMgzuogxnl4746-55-34 21:12:007.4[facility] RkdjkahQentosqcj0298-79-38 21:12:0053[facility] [place] Smqjuxlxz6059-29-51 21:12:00 Test Item Value Reference Range Interpretation Comments BUN/CREAT (test code = BUN/CREAT) 7 09-08 Memorial BbrjxwvEmuinbcsc4576-25-31 21:12:002.2[facility] 2012-06-04 21:12:007.2[facility] CwisphaDoimjztdy2990-60-43 21:12:0024[facility] OdxyfvtKrusylpmi2907-01-20 21:12:0027[facility] OlbtppdFyviwenbe7856-32-67 21:12:0066[facility] RkxcrmyXiqxejjkf6743-18-47 21:12:005.1[facility] [place] Zfxbazabp8707-32-53 21:12:47540Vfbecqdf GqjzzzzEztajlwrn5059-28-15 21:12:69152 [facility] DsygiwkPwmwjkvcu6246-62-47 21:12:0037[facility] 2012-06-04 21:12:33634Xniezhlh PaoozaaEgrjmxmyd4494-96-43 21:12:22569 MEQ/L Memorial NrojqpaDlsrvcpiw2454-05-50 21:12:004.6 MEQ/LMemorial HermannChemistry 2012-06-04 21:12:007.4[facility] DnhwlfwSgjteergk4121-49-60 21:12:0053[facility]orial EeocfvvLotexpfqz1253-24-25 21:12:00 Test Item Value Reference Range Interpretation Comments BUN/CREAT (test code = BUN/CREAT) 7 09-08 Memorial HydyhtlHeqiudbyl3983-69-32 21:12:002.2[facility] 2012-06-04 21:12:007.2[facility] RkgdqivSlwtdzpfm4783-15-05 21:12:0024Mem[facility] LfuduieXvbgfpztj5110-28-37 21:12:0027[facility] FgcnqfkBctnogyvh2419-26-26 21:12:0066[facility] RhgjwkvPsnhopyqzg4044-17-98 21:12:007.9[facility] [place] Vftkszyikq3506-72-70 21:12:0023.7[facility] KzsschiPrdssyyshd3225-05-21 21:12:00 289 K/CMMMemorial MzfsbykAbkziixush1120-79-22 21:12:007.9[facility] [place] Okxpuyojsp6818-63-79 21:12:0023.7[facility] LwqbrmtNdnfkttqae9974-25-59 21:12:00 289 K/CMMMemorial SlhunqpOtudjsqav9619-06-10 20:28:006.9[facility] [place] Caiqwxvhe1463-45-11 20:28:001.420[facility] LcufjpjEarvguddg1022-63-99 20:28:35913 Memorial HrzowkbIjcfxxfos3920-39-00 20:28:58910Zmypcgdt HermannChemistry 2011-11-12 20:28:0054Mem[facility] VntswebMixqlaurx7810-07-81 20:28:96757Nvfzwxql QmaaplzGswizkyca3084-25-22 20:28:17228 MEQ/LMemorial DyhfilmHghnvtenu8051-58-30 20:28:004.7 MEQ/LMemorial HjuyawjUdnyulkfb5135-43-43 20:28:004.9[facility] [place] Ledfuaxie7098-46-82 20:28:0063Mem[facility] OhrgajiNjdzdqdvg5982-61-63 20:28:00 Test Item Value Reference Range Interpretation Comments BUN/CREAT (test code = BUN/CREAT) 13 1 6- Memorial RerqnifUspsgtkwo3626-52-14 20:28:001.8[facility] 2011-11-12 20:28:007.6[facility] PuhopjcCfuevkcsf0260-54-53 20:28:0017[facility] GknjdxgAmkwizjep6048-58-61 20:28:0014Memorial GxflfxvQslhguark5816-68-85 20:28:0068[facility] [place]
[2020-04-10 06:37] LABS: SARS-COV-2 RT PCR NEGATIVE (NEGATIVE)
--- NOTE | 2020-04-10 06:45 | ER ---
Nurse's Notes [facility] Name: Chase Chacon Jr Age: 44 yrs Sex: Male : 1975 Arrival Date: 04/10/2020 Time: 05:09 Bed 8 Private MD: RANDI MILLARD Diagnosis: Vomiting-Resolved;Diarrhea-Resolved Presentation: 04/10 05:21 Chief complaint: Patient states: Reports being at dialysis this morning for chair time lp1 and reported to staff intermittent vomiting and sob while laying flat; Patient states dialysis clinic recommended to rule out COVID prior to being dialyzed; patient denies any abdominal pain, fever; states "I have gastroparesis so I throw up sometimes". Coronavirus screen: Client denies travel out of the [place] in the last 14 days. vomiting. Ebola Screen: No symptoms or risks identified at this time. Initial Sepsis Screen: Does the patient meet any 2 criteria? No. Patient's initial sepsis screen is negative. Does the patient have a suspected source of infection? No. Patient's initial sepsis screen is negative. Risk Assessment: Do you want to hurt yourself or someone else? Patient reports no desire to harm self or others. Onset of symptoms was April 10, 2020. 05:21 Method Of Arrival: Ambulatory lp1 05:21 Acuity: LEON 3 lp1 Historical: - Allergies: 05:25 Phenergan; lp1 - Home Meds: 05:25 alprazolam 0.5 mg Oral Tb24 1 tab once daily [Active]; calcium acetate 667 mg Oral cap lp1 3 caps 3 times per day [Active]; nifedipine 90 mg Oral tr24 twice a day [Active]; Novolog Sub-Q 10 10 UNITS AM, 15 UNITS LUNCH AND 10 UNITS AT NIGHT [Active]; ramipril 10 mg Oral cap at bedtime [Active]; ropinirole 1 mg Oral tab at bedtime as needed for Restless Legs Syndrome [Active]; ropinirole 1 mg Oral tab nightly [Active]; tizanidine 2 mg Oral tab twice a day [Active]; tizanidine 2 mg Oral tab twice a day [Active]; trazodone 100 mg Oral tab nightly [Active]; - PMHx: 05:25 Cataracts; Diabetes - NIDDM; Dialysis; M/W/F; ESRD; Gastroparesis; Hypertension; kidney lp1 disease; - PSHx: 05:25 Catarcts; lp1 - Immunization history:: Adult Immunizations up to date. - Social history:: Smoking status: Patient denies any tobacco usage or history of. Screenin:25 Abuse screen: Denies threats or abuse. Denies injuries from another. Nutritional lp1 screening: No deficits noted. Tuberculosis screening: No symptoms or risk factors identified. Fall Risk None identified. Assessment: 05:40 General: Appears in no apparent distress. comfortable, Behavior is calm, cooperative, rr5 appropriate for age. Pain: Denies pain. Neuro: Level of Consciousness is awake, alert, obeys commands, Oriented to person, place, time, situation. Cardiovascular: Capillary refill < 3 seconds Patient's skin is warm and dry. Dialysis shunt: in the left arm, with palpable thrill, with no erythema, with no edema, no bleeding noted. Respiratory: Reports shortness of breath Airway is patent Respiratory effort is even, unlabored, Respiratory pattern is regular, symmetrical. GI: Abdomen is round Reports nausea. : No signs and/or symptoms were reported regarding the genitourinary system. EENT: No signs and/or symptoms were reported regarding the EENT system. Derm: Skin is intact, is healthy with good turgor, Skin temperature is warm. Musculoskeletal: Capillary refill < 3 seconds. 05:51 Reassessment: patient opted to do only the covid test, refused for the work up. rr5 06:40 Reassessment: Patient appears in no apparent distress at this time. Patient is alert, rr5 oriented x 3, equal unlabored respirations, skin warm/dry/pink. discharge instruction given and explained without complaints made. Vital Signs: 05:21 BP 154 / 94; Pulse 77; Resp 18; Temp 99.6(O); Pulse Ox 98% on R/A; Weight 95.25 kg; lp1 Height 5 ft. 6 in. (167.64 cm); Pain 0/10; 06:40 BP 159 / 65; Pulse 75; Resp 17; Pulse Ox 98% ; rr5 05:21 Body Mass Index 33.89 (95.25 kg, 167.64 cm) lp1 ED Course: 05:09 Patient arrived in ED. am2 05:09 RANDI MILLARD is Private Physician. am2 05:12 Nader Aponte MD is Attending Physician. mh7 05:16 Gregory Andrade, RN is Primary Nurse. rr5 05:24 Triage completed. lp1 05:24 Arm band placed on. lp1 05:51 Patient has correct armband on for positive identification. Bed in low position. Call rr5 light in reach. 05:51 No provider procedures requiring assistance completed. COVID swab sent to lab. Flu rr5 and/or RSV swab sent to lab. Patient did not have IV access during this emergency room visit. Administered Medications: No medications were administered Outcome: 06:44 Discharge ordered by . [facility] 06:49 Discharged to home ambulatory. rv 06:49 Condition: good 06:49 Discharge instructions given to patient, Instructed on discharge instructions, follow up and referral plans. Demonstrated understanding of instructions, follow-up care. 06:49 Patient left the ED. rv Signatures: Sahara Mondragon RN RN lp1 Alicia Daniel am2 Cullen Cagle RN RN rv Gregory Andrade, RN RN rr5 Nader Aponte MD MD [facility]
--- NOTE | 2020-04-10 06:45 | EDPHYS ---
Physician Documentation [facility] Name: Chase Chacon Jr Age: 44 yrs Sex: Male : 1975 Arrival Date: 04/10/2020 Time: 05:09 Bed 8 Private MD: RANDI MILLARD ED Physician Nader Aponte HPI: 04/10 06:12 This 44 yrs old Male presents to ER via Ambulatory with complaints of Vomiting.mh7 06:13 The patient presents to the emergency department with vomiting, that is intermittent, 1 mh7 times since the onset of symptoms, diarrhea, that is intermittent, 3 times since the onset of symptoms. Onset: The symptoms/episode began/occurred yesterday. Possible causes: bad food exposure, enchiladas. The symptoms are aggravated by nothing. The symptoms are alleviated by nothing. Associated signs and symptoms: Pertinent negatives: abdominal pain, anorexia, belching, constipation, dysuria, fever, flatulence, GI bleeding, hematuria. Severity of symptoms: At their worst the symptoms were mild yesterday, in the emergency department the symptoms have resolved and did so earlier today. Patient states that he was sent to ED by dialysis center to get COVID test due to having an episode of vomiting and diarrhea yesterday. He also reported having some SOB when laying flat last night which he states is usual when he is due for dialysis.. Historical: - Allergies: 05:25 Phenergan; lp1 - Home Meds: 05:25 alprazolam 0.5 mg Oral Tb24 1 tab once daily [Active]; calcium acetate 667 mg Oral cap lp1 3 caps 3 times per day [Active]; nifedipine 90 mg Oral tr24 twice a day [Active]; Novolog Sub-Q 10 10 UNITS AM, 15 UNITS LUNCH AND 10 UNITS AT NIGHT [Active]; ramipril 10 mg Oral cap at bedtime [Active]; ropinirole 1 mg Oral tab at bedtime as needed for Restless Legs Syndrome [Active]; ropinirole 1 mg Oral tab nightly [Active]; tizanidine 2 mg Oral tab twice a day [Active]; tizanidine 2 mg Oral tab twice a day [Active]; trazodone 100 mg Oral tab nightly [Active]; - PMHx: 05:25 Cataracts; Diabetes - NIDDM; Dialysis; M/W/F; ESRD; Gastroparesis; Hypertension; kidney lp1 disease; - PSHx: 05:25 Catarcts; lp1 - Immunization history:: Adult Immunizations up to date. - Social history:: Smoking status: Patient denies any tobacco usage or history of. ROS: 06:13 Constitutional: Negative for fever, chills, and weight loss, Eyes: Negative for injury, mh7 pain, redness, and discharge, ENT: Negative for injury, pain, and discharge, Neck: Negative for injury, pain, and swelling, Cardiovascular: Negative for chest pain, palpitations, and edema. 06:13 Back: Negative for injury and pain, : Negative for injury, bleeding, discharge, and swelling, MS/Extremity: Negative for injury and deformity, Skin: Negative for injury, rash, and discoloration, Neuro: Negative for headache, weakness, numbness, tingling, and seizure, Psych: Negative for depression, anxiety, suicide ideation, homicidal ideation, and hallucinations, Allergy/Immunology: Negative for hives, rash, and allergies, Endocrine: Negative for neck swelling, polydipsia, polyuria, polyphagia, and marked weight changes, Hematologic/Lymphatic: Negative for swollen nodes, abnormal bleeding, and unusual bruising. 06:13 Abdomen/GI: Negative for abdominal pain, constipation, abdominal cramps, abdominal distension, anorexia, dysphagia, hematemesis. Exam: 06:13 Constitutional: This is a well developed, well nourished patient who is awake, alert, mh7 and in no acute distress. Head/Face: Normocephalic, atraumatic. Eyes: Pupils equal round and reactive to light, extra-ocular motions intact. Lids and lashes normal. Conjunctiva and sclera are non-icteric and not injected. Cornea within normal limits. Periorbital areas with no swelling, redness, or edema. Neck: Trachea midline, no thyromegaly or masses palpated, and no cervical lymphadenopathy. Supple, full range of motion without nuchal rigidity, or vertebral point tenderness. No Meningismus. Chest/axilla: Normal chest wall appearance and motion. Nontender with no deformity. No lesions are appreciated. Cardiovascular: Regular rate and rhythm with a normal S1 and S2. No gallops, murmurs, or rubs. Normal PMI, no JVD. No pulse deficits. Respiratory: Lungs have equal breath sounds bilaterally, clear to auscultation and percussion. No rales, rhonchi or wheezes noted. No increased work of breathing, no retractions or nasal flaring. Abdomen/GI: Soft, non-tender, with normal bowel sounds. No distension or tympany. No guarding or rebound. No evidence of tenderness throughout. Back: No spinal tenderness. No costovertebral tenderness. Full range of motion. Skin: Warm, dry with normal turgor. Normal color with no rashes, no lesions, and no evidence of cellulitis. MS/ Extremity: Pulses equal, no cyanosis. Neurovascular intact. Full, normal range of motion. Neuro: Awake and alert, GCS 15, oriented to person, place, time, and situation. Cranial nerves II-XII grossly intact. Motor strength 5/5 in all extremities. Sensory grossly intact. Cerebellar exam normal. Normal gait. Psych: Awake, alert, with orientation to person, place and time. Behavior, mood, and affect are within normal limits. Vital Signs: 05:21 BP 154 / 94; Pulse 77; Resp 18; Temp 99.6(O); Pulse Ox 98% on R/A; Weight 95.25 kg; lp1 Height 5 ft. 6 in. (167.64 cm); Pain 0/10; 06:40 BP 159 / 65; Pulse 75; Resp 17; Pulse Ox 98% ; rr5 05:21 Body Mass Index 33.89 (95.25 kg, 167.64 cm) lp1 MDM: 06:41 Differential diagnosis: gastritis, viral gastroenteritis, gastroenteritis. Data [facility] reviewed: vital signs, nurses notes, lab test result(s), COVID. Data interpreted: Pulse oximetry: on room air is 98 %. Interpretation: normal. Counseling: I had a detailed discussion with the patient and/or guardian regarding: the historical points, exam findings, and any diagnostic results supporting the discharge/admit diagnosis, the presence of at least one elevated blood pressure reading (>120/80) during this emergency department visit, lab results, to return to the emergency department if symptoms worsen or persist or if there are any questions or concerns that arise at home. Response to treatment: the patient's symptoms have resolved after treatment, the patient's blood pressure is in an acceptable range, mental status has returned to baseline, the patient no longer shows bradycardia, the patient is not short of breath, the patient is not tachycardic, the patient's pain is gone, the patient's temperature has normalized. Refusal of service: The patient/guardian displays adequate decision making capability and despite a detailed discussion of alternatives, benefits, risks, and consequences refuses: all lab tests, all X-rays. 06:44 Patient medically screened. [facility] 04/10 05:36 Order name: Flu rr5 04/10 05:36 Order name: COVID-19 rr5 04/10 05:48 Order name: Influenza Screen (A EDDE 04/10 05:48 Order name: CORONAVIRUS EDDE 04/10 06:37 Order name: COVID-19/FLU A+B; Complete Time: 06:40 EDMS Administered Medications: No medications were administered Disposition: 04/10/20 06:44 Discharged to Home. Impression: Vomiting-Resolved, Diarrhea-Resolved. - Condition is Stable. - Discharge Instructions: Nausea and Vomiting, Adult, [id number], Diarrhea, Adult, [id number]. - Medication Reconciliation Form, Thank You Letter, Antibiotic Education, Prescription Opioid Use form. - Follow up: Private Physician; When: 1 - 2 days; Reason: Worsening of condition, Recheck today's complaints, Continuance of care, Re-evaluation by your physician. - Problem is new. - Symptoms are resolved. Signatures: Dispatcher [employer] [facility] Sahara Mondragon RN RN lp1 Cullen Cagle RN RN rv Nader Aponte MD MD mh7 Corrections: (The following items were deleted from the chart) 06:49 06:44 04/10/2020 06:44 Discharged to Home. Impression: Vomiting-Resolved; rv Diarrhea-Resolved. Condition is Stable. Forms are Medication Reconciliation Form, Thank You Letter, Antibiotic Education, Prescription Opioid Use. Follow up: Private Physician; When: 1 - 2 days; Reason: Worsening of condition, Recheck today's complaints, Continuance of care, Re-evaluation by your physician. Problem is new. Symptoms are resolved. mh7
[2020-04-10 07:05] VITALS: BP 154/94; TEMP 99.6; O2SAT 98
== END 2020-04-10 06:49 | disposition home or self-care (01) ==
LOC: ER 05:08
DX: R11.10 Vomiting, unspecified (principal); R19.7 Diarrhea, unspecified; Z20.822 Contact with and (suspected) exposure to COVID-19; E11.22 Type 2 diabetes mellitus with diabetic chronic kidney disease; I12.0 Hypertensive chronic kidney disease with stage 5 chronic kidney disease or end stage renal disease; N18.6 End stage renal disease; Z99.2 Dependence on renal dialysis; E11.43 Type 2 diabetes mellitus with diabetic autonomic (poly)neuropathy; K31.84 Gastroparesis; Z79.4 Long term (current) use of insulin
CPT/HCPCS: 0240U; 99283

== ENCOUNTER 2020-04-13 22:27 | Emergency (ER) | payer OTHER ==
--- OUTSIDE RECORDS SUMMARY | 2020-04-13 22:29 | XMS REPORT | Clinical Summary ---
:1975 [address] [facility] Address [address] [place] [address] Care Team Providers Name Role Phone Unavailable [...] Not on file Results Not on fileafter 04/13/2019 Insurance Payer Benefit Plan / Subscriber ID Effective Phone Address T ype Group Dates MEDICARE MEDICARE A B [id number] 2012-Pre Med icare sent CIGNA CIGNA [id number] 2017-Pre [facility] [employer] [employer] sent Contracted
--- OUTSIDE RECORDS SUMMARY | 2020-04-13 22:30 | XMS REPORT | Continuity of Care Document ---
:1975 Author Organization [employer] Care Team Providers Name Role Phone [employer] Unavailable Un available Problems Problem Status Onset Classification Date Comments Sourc e Date Reported GASTROPARESIS Active 09/08/19 Condition 09/07/2014 [facility] dical 15 Group ERECTILE Active 09/08/19 Condition 09/07/2014 [facility] DYSFUNCTION 15 Group PHYSICAL Active 09/08/19 Condition 09/07/2014 [facility] EXAMINATION 15 Group PHYSICAL EXAM Inactive 09/09/19 Condition 09/07/2014 [facility] dical 14 Group HYPERLIPIDEMIA - Active 09/01/19 Condition 09/07/2014 [facility] MIXED 14 Group PRE-OP CV EXAM Active 09/01/19 Condition 09/07/2014 [facility] edical 14 Group RENAL FAILURE, Active 06/06/19 Condition 09/07/2014 [facility] edical CHRONIC 13 Group ANEMIA IN CHRONIC Active 06/06/19 Condition 09/07/2014 [facility] Medical KIDNEY DISEASE 13 Group DIAB W/O COMP Active 06/03/19 Condition 09/07/2014 [facility] dical TYPE II/UNS NOT 13 Grou [...] p Temperature Oral (F) 98.3 F 09/07/2014 [facility] Height 66 09/07/2014 [facility] Gr[facility] p Weight 210 09/07/2014 [facility] Respitory Rate 14 09/07/2014 [facility] Gr oup Weight 204 09/08/2013 [facility] Temperature Oral (F) 98.0 F 09/08/2013 [facility] Heart Rate 77 09/08/2013 [...] Number For Provider Date Date Visit AUDIT [id number] 01/30 Physician s AUDIT [id number] 01/30 Physician s AUDIT [id number] 01/30 Physician s AUDIT [id number] 02/03 Physician s AUDIT [id number] 03/08 Physician s AUDIT [id number] 04/07 [facility] [phone] Oralia Gao, 08/31 08/31 [facility] Visit [facility] [address] [facility] Office [phone] Lyric 09/08 09/08 [facility] Visit 0420 MD Javier /2013 [facility] [address] [facility] Lab Report [id number] [facility] 02/23 02/23 Nunnelly 0570 MD Javier /2013 [facility] [place] [facility] Office [phone] Elmer 09/07 09/07 [facility] Visit 1320 MD Lupillo /2014 [facility] Alexis Procedures No Data Provided for This Section Assessment and Plan No Data Provided for This Section Plan of Care No Data Provided for This Section Social History Social History Date Source Never A Smoker 04/07/2012 [facility] (Active) Never Drank Alcohol (Active) Family History No Data Provided for This Section Advance Directives Order Name Results Value Date Source Advance Directives Advance Directives No Advance 04/07/2012 [facility] Directives available. Advance Directives Advance Directives No Advance 03/08/2012 [facility] Directives available. Advance Directives Advance Directives No Advance 02/04/2012 [facility] Directives available. Advance Directives Advance Directives No Advance 02/01/2012 [facility] Directives available. Advance Directives Advance Directives No Advance 01/31/2012 [facility] Directives available. Advance Directives Advance Directives No Advance 01/31/2012 [facility] Directives available. Functional Status No Data Provided for This Section
--- OUTSIDE RECORDS SUMMARY | 2020-04-13 22:31 | XMS REPORT | Continuity of Care Document ---
:1975 Author Organization [facility] t Address [address] [place] [address] Dr. [address]. [address] [place] [address] Care Team Providers Name Role Phone Oscar [...] [facility] 10:20:15 l PRE-OP 00:00: [place] CV EXAM 00 Active 08/31/2013 Condition 5 [facility] Group RENAL Condition Active 2014-09-07 Mem oria FAILURE, 06-05 10:20:15 l CHRONIC RENAL 00:00: [place] FAILURE, 00 CHRONIC Active 06/05/2012 Condition 5 [...] Mem oria 06-02 10:20:15 l COUGH 00:00: [place] 00 Active 06/02/2012 Condition 5 [facility] Group DIABETIC Condition Active 2011-032014-09-07 M emoria RETINOPATH 05-12 10:20:15 l Y DIABETIC 00:00: Simon n RETINOPAT 00 HY Active 2 Condition 09/07/2014 Medical Group HYPERTENSI Condition Active 2011-032014-09-07 Memoria ON 05-12 10:20:15 l 00:00: [place] HYPERTENSI 00 ON Active 2 Condition 09/07/2014 Medical Group Chronic Problem Active 2012-04-07 Mariano steven Kidney 21:40:14 l Disease, Chronic [place] nn Stage 4 Kidney Disease, Stage 4 Active 3 [place] [facility] End Stage Problem Active 2012-04-07 Me moria Renal 21:40:14 l Disease End [place] Stage Renal Disease Active 3 [place] [facility] History of Past Illness Condition Condition Condition Status Onset Resolution Last Treating Co mments Source Name Details Category Date Date Treatment Clinician Date PHYSICAL Condition Inactiv 2014-09-07 2014-09-07 Memoria EXAM e 09-08 10:20:15 10:20:15 l PHYSICAL 00:00: Siomn n EXAM 00 Inactive 09/08/2013 Condition 5 [facility] Allergies, Adverse Reactions, Alerts Allergy Allergy Status Severity Reaction(s) Onset Inactive Treating Comm ents Source Name Type Date Date Clinician [facility]: Medical reaction 00 Center s No Known No Known Active Memori a Drug Drug l Allergie Allergie Simon n s s Not Not Active Memoria Known Known l [place] Social History Social Habit Start Date Stop Date Quantity Comments Source Sex Assigned At [facility] Social History 2012-04-07 2012-04-07 [facility] lucy 21:40:14 21:40:14 Smoking Status Start Date Stop Date Source Never smoker [facility] Medications Ordered Filled Start Stop Current Ordering Indication Dosage Frequency Signature Comments Components Source Medication Medication Date Date Medication? Clinician (SIG) Name Name CALCIUM Yes one cap Memoria ACETATE 667 6-24 tid with l MG CAPS 00:00: meals [place] 00 BD INSULIN Yes use as Memor ia SYRINGE 3-05 directed l HALF-UNIT 00:00: [place] 31G X 5/16" 00 0.3 ML MISC BD PEN Yes use as Memoria NEEDLE 3-04 directed l SHORT U/F 00:00: [place] 31G X 8 MM 00 MISC APIDRA 100 No inject Memor ia UNIT/ML 3-04 10units in l SOLN 00:00: the am, [place] 00 15units at lunch,and 10 units in the evening BD PEN Yes use as Memoria NEEDLE 3-04 directed l SHORT U/F 00:00: [place] 31G X 8 MM 00 MISC NOVOLOG 100 2012-03 Yes inject Mariano steven UNIT/ML 1-19 10-15units l SOLN 00:00: tid with [place] 00 meals sc NOVOLOG 100 2012-03 Yes inject Mariano steven UNIT/ML 1-19 10-15units l SOLN 00:00: tid with [place] 00 meals sc ZITHROMAX No Take 2 [...] oria Medications 1-17 Medication l 01:30: s [place] 26 REGLAN 10 No 1 po qd Memor ia MG TABS 9-28 prn l 00:00: [place] 00 ACCU-CHEK Yes Test 3 Memori a [...] steven 30 MG TABS 9-21 l 00:00: [place] LANTUS Yes 18 units Memoria SOLOSTAR 9-21 at bedtime l 100 UNIT/ML 00:00: sc Simon n SOLN 00 LIPITOR 20 No 1 po qd Mariano steven MG TABS 9-21 l 00:00: LISINOPRIL Yes 1 tablet Mem oria 30 MG TABS 9-21 orally l 00:00: twice a [place] week on Friday and Vital Signs Vital Name Observation Time Observation Value Comments Source Systolic (mm Hg) 2014-09-07 15:20:15 Mraiano rial [place] Diastolic (mm Hg) 2014-09-07 15:20:15 Mem orial [place] Heart Rate 2014-09-07 [facility] Temperature Oral (F) 2014-09-07 15:20:15 98.3 F [facility] [place] Height 2014-09-07 15:20:15 [facility] [place] Weight 2014-09-07 15:20:15 [facility] [place] Respitory Rate 2014-09-07 15:20:15 Memori al [place] Weight 2013-09-08 14:22:12 [facility] Temperature Oral (F) 2013-09-08 14:22:12 98.0 F [facility] [place] Heart Rate 2013-09-08 14:22:12 [facility] [place] Systolic (mm Hg) 2013-09-08 14:22:12 Mariano rial [place] Diastolic (mm Hg) 2013-09-08 14:22:12 Mem orial [place] Systolic (mm Hg) 2013-08-31 15:43:31 Mariano rial [place] Diastolic (mm Hg) 2013-08-31 15:43:31 Mem orial [place] Heart Rate 2013-08-31 15:43:31 [facility] [place] Weight 2013-08-31 15:43:31 [facility] [place] Weight 2012-06-02 15:36:10 [facility] [place] Height 2012-06-02 15:36:10 [facility] [place] Temperature Oral (F) 2012-06-02 15:36:10 98.4 F [facility] [place] Heart Rate 2012-06-02 15:36:10 [facility] [place] Systolic (mm Hg) 2012-06-02 15:36:10 Mariano rial [place] Diastolic (mm Hg) 2012-06-02 15:36:10 Mem orial [place] Procedures This patient has no known procedures. Encounters Start End Encounter Admission Attending Care Care Encounter Source Date/Time Date/Time Type Type Clinicians Facility Department ID 2018-06-22 Inpatient [facility] [id number] [facility] 07:53:49 2018-06-22 Outpatient [facility] [address] [facility] 07:53:48 2020-03-28 2020-03-28 [id number] 00:00:00 00:00:00 Lauren Bobo [place] [id number] [facility] [id number] [place] [id number] [facility] 2020-03-14 2020-03-[address] [facility] [id number] 09:14:33 23:59:00 Encounter Mariposa Crespo [id number] [place] 4.2.7.2.686 [facility] [id number] 2020-03-14 2020-03-[address] [facility] [id number] 09:14:13 23:59:00 Encounter Mariposa Crespo [id number] [place] 4.2.7.2.686 [facility] [id number] 2020-03-14 2020-03-[address] [facility] [id number] 09:13:41 09:13:41 Encounter Mariposa Crespo [id number] [place] 4.2.7.2.686 [facility] [id number] 2020-03-14 2020-03-[address] [facility] [id number] 09:12:26 09:12:26 Encounter Mariposa Crespo 350.1.13.10 [place] 4.2.7.2.686 [facility] [id number] 2020-02-28 2020-02-28 [facility] [id number] 12:46:09 13:47:51 Visit Mariposa Crespo 350.1.13.10 [place] 4.2.7.2.686 [facility] [id number] nal 059 [facility] 2012-04-07 2012-04-07 Outpatient [facility] [id number] 15:40:31 15:40:14 2012-03-08 2012-03-08 Outpatient [facility] [id number] 13:29:27 13:29:12 2012-02-04 2012-02-04 Outpatient [facility]IE [facility]IE [id number] 11:20:09 11:19:53 2012-01-31 2012-01-31 Outpatient MHIE MHIE [id number] 19:30:42 19:30:26 2012-01-31 2012-01-31 Outpatient MHIE MHIE [id number] 16:34:08 16:33:53 2012-01-31 2012-01-31 Outpatient MHIE MHIE [id number] 14:49:27 14:49:11 Results Test Description Test Time Test Comments Results Result Comments Source Chemistry 2012-10-23 7.3 [facility] nn 14:45:00 Chemistry 2012-10-23 178 [facility] nn 14:45:00 Chemistry 2012-10-23 129 [facility] [place] [...] code = BUN/CREAT) 9 1 625 [facility] GhlvpfoGryvbrfvm4375-87-76 14:45:003.6[facility]ann[facility] 2012-10-23 14:45:009.0[facility] ZoajlubDdnywwsxx2875-13-36 14:45:0021[facility] CpsuwhfNlhrgppxn3784-77-72 14:45:009[facility] HkeeegsQksottute1660-59-53 14:45:00 67[facility] MeaxtmhWieseynerl3693-63-65 14:45:0013.2[facility] HermannHematology 2012-10-23 14:45:0041.5[facility] AmmarhsNjwsimqcnp1963-47-76 14:45:78097 K/CMM [facility] SnjnhgyCczwtxrpn3473-81-68 21:12:005.1[facility]ann[facility] 2012-06-04 21:12:89003Yuzomaef TuemeldWyrviajtt1219-30-14 21:12:35300Peoiftlc HyjehfrGdwgnzjie3925-36-97 21:12:0037[facility] MurtfnjUtwsibxdd4805-75-90 21:12:52254Rslmelyz OfohkqsDlgzanoyn6287-17-13 21:12:11540 MEQ/LMemorial [place] Eurmtyrhz3095-05-76 21:12:004.6 MEQ/LMemorial NyvtjwrIlicvhgtb8216-78-99 21:12:007.4[facility] WhmboelNyzqnswst8681-17-96 21:12:0053[facility] [place] Jgljamkby3196-89-92 21:12:00 Test Item Value Reference Range Interpretation Comments BUN/CREAT (test code = BUN/CREAT) 7 09-08 [facility] EybotffDgqdswpfa2903-65-32 21:12:002.2[facility]ann[facility] 2012-06-04 21:12:007.2[facility] ImwlnurIgpqkizdm4456-88-25 21:12:0024[facility] HouyqqmRaiqqliwh5991-65-05 21:12:0027[facility] HumglxmJbqanfzvt5018-05-08 21:12:0066[facility] RxxljycZbhhlferz9622-15-76 21:12:005.1[facility] [place] Twwceoivx4422-27-41 21:12:35594Wmeevtjq RyrydkvVfeaimllh4062-38-00 21:12:01884 [facility] TmbmhelJzthnfylu0155-15-92 21:12:0037[facility]ann[facility] 2012-06-04 21:12:93769Wxajcbqy JwsaytlDkpnlntzi6047-61-66 21:12:06928 MEQ/L Memorial JwoextdLxomqbsxj5941-50-23 21:12:004.6 MEQ/LMem[facility] HermannChemistry 2012-06-04 21:12:007.4[facility] JvfbvrzYoceehfvc5469-73-20 21:12:0053[facility] MegogybLefigggtx5629-63-94 21:12:00 Test Item Value Reference Range Interpretation Comments BUN/CREAT (test code = BUN/CREAT) 7 09-08 [facility] CnweojxBumijwcnw7966-88-22 21:12:002.2[facility]ann[facility] 2012-06-04 21:12:007.2[facility] WlrhkboUeghivhzi1744-50-49 21:12:0024[facility] YljebucDvburtbin0492-69-00 21:12:0027[facility] QowfxfzEpubgdhlz3549-97-58 21:12:0066[facility] YbiyrhoVmzwpwbazy3765-79-67 21:12:007.9[facility] [place] Pgasyjinyo7732-88-01 21:12:0023.7[facility] WeorowgKnuwkhhkfy6027-90-28 21:12:00 289 K/CMMMemorial QzzmfblAcjjcanqze4942-82-68 21:12:007.9[facility] [place] Hykymcnxrg5337-66-50 21:12:0023.7[facility] UuwkfimGarrqvljad7752-17-55 21:12:00 289 K/CMMMemorial XhhdrcnEddptfupt8486-19-25 20:28:006.9[facility] [place] Kehsfbkvh5580-75-29 20:28:001.420[facility] OviskenTawuzgufv2212-57-76 20:28:80661 [facility] KgdjrqnPyfxcgllb5151-07-28 20:28:84399Pvjlggia HermannChemistry 2011-11-12 20:28:0054Memorial WswqscgKggfwvzbl1508-89-11 20:28:06340Eesubjia TmcdmrwWtdkgezjp0574-82-44 20:28:99154 MEQ/LMemorial AhojsqnKvgbglkkw9602-83-08 20:28:004.7 MEQ/LMemorial YppjfiyLvmzqxixl9538-85-40 20:28:004.9[facility] [place] Vcabnjdil2625-87-83 20:28:0063[facility] MddqildXdojchysu9468-97-39 20:28:00 Test Item Value Reference Range Interpretation Comments BUN/CREAT (test code = BUN/CREAT) 13 1 6- Memorial TrcsqyuAtpfvfeib7407-40-00 20:28:001.8[facility] HermannChemistry 2011-11-12 20:28:007.6[facility] VgujygyVmmsmvyce3937-93-71 20:28:0017Mem[facility] UrqgtrgDtkkcynjc6894-35-39 20:28:0014Memorial VhmurgcRjwanpdjs0761-13-61 20:28:0068[facility] [place]
[2020-04-14] MEDS ORDERED: LORazepam 2 MG/ML VIAL ONE (00:16)
[2020-04-14] MEDS ORDERED: METOCLOPRAMIDE 10 MG/2mL INJ ONE (00:16)
[2020-04-14 00:17] LABS: Absolute Lymphocytes (CBC) 1.2 K/uL (0.7-4.9); Basophils % 0.6 % (0-1.3); Lymphocytes % 16.9 % (15.3-44.8); MPV 8.3 fL (7.6-11.3); RBC Red Blood Cell Count 2.68 M/uL (4.33-5.43)
[2020-04-14] MEDS ORDERED: DIPHENHYDRAMINE 50 MG/ML VIAL ONE (00:17)
[2020-04-14 00:41] LABS: Albumin 3.4 g/dL (3.4-5.0); Bilirubin Direct 0.1 mg/dL (0-0.2); Bilirubin Total 0.5 mg/dL (0.2-1.0); Potassium 4.2 mmol/L (3.5-5.1); Protein, Total 8.4 g/dL (6.4-8.2)
--- NOTE | 2020-04-14 01:48 | EDPHYS ---
Physician Documentation [facility] Name: Chase Chacon Jr Age: 44 yrs Sex: Male : 1975 Arrival Date: 04/13/2020 Time: 22:36 Bed 7 Private MD: Beverly James ED Physician Michael Mackey HPI: 04/13 23:53 This 44 yrs old Male presents to ER via Ambulatory with complaints of jmm Nausea/Vomiting. 23:53 The patient presents to the emergency department with nausea, vomiting, diarrhea, jmm abdominal pain. Onset: The symptoms/episode began/occurred gradually, 4 day(s) ago. Possible causes: flare up of bowel problem, gastroparesis. The symptoms are aggravated by nothing. The symptoms are alleviated by nothing. Associated signs and symptoms: Pertinent positives: diarrhea, nausea, vomiting. The patient has experienced similar episodes in the past, several times. The patient has been recently seen by a physician: The patient has been recently seen at the [facility] Emergency Department. Historical: - Allergies: 23:02 Phenergan; dm5 - PMHx: 23:35 Cataracts; Diabetes - NIDDM; Dialysis; M/W/F; ESRD; Gastroparesis; Hypertension; kidney rr5 disease; - Immunization history:: Adult Immunizations up to date. - Social history:: Smoking status: unknown. ROS: 23:53 Constitutional: Negative for fever, chills, and weight loss, Cardiovascular: Negative jmm for chest pain, palpitations, and edema, Respiratory: Negative for shortness of breath, cough, wheezing, and pleuritic chest pain. 23:53 Abdomen/GI: Positive for abdominal pain, nausea and vomiting, diarrhea. 23:53 All other systems are negative. Exam: 23:53 Head/Face: atraumatic. Eyes: EOMI, no conjunctival erythema appreciated ENT: Moist jmm Mucus Membranes Neck: Trachea midline, Supple Chest/axilla: Normal chest wall appearance and motion. Cardiovascular: Regular rate and rhythm. No edema appreciated Respiratory: Normal respirations, no respiratory distress appreciated 23:53 Back: Normal ROM Skin: General appearance color normal MS/ Extremity: Moves all extremities, no obvious deformities appreciated, no edema noted to the lower extremities Neuro: Awake and alert, normal gait Psych: Behavior is normal, Mood is normal, Patient is cooperative and pleasant 23:53 Constitutional: The patient appears alert, awake, uncomfortable. 23:53 Abdomen/GI: Inspection: abdomen appears normal, Bowel sounds: normal, Palpation: soft, mild abdominal tenderness, in all quadrants. Vital Signs: 22:59 BP 214 / 92; Pulse 85; Resp 22; Temp 98.3; Pulse Ox 98% on R/A; Weight 90.72 kg (R); dm5 Height 5 ft. 6 in. (167.64 cm); Pain 9/10; 04/14 01:25 BP 202 / 95; Pulse 80; Resp 20; Pulse Ox 98% ; rr5 01:35 BP 190 / 85; Pulse 85; Resp 19; Pulse Ox 97% ; rr5 04/13 22:59 Body Mass Index 32.28 (90.72 kg, 167.64 cm) dm5 MDM: 04/13 23:50 Patient medically screened. [facility] 04/14 00:35 Transition of care: After a detail discussion of the patient's case, care is [facility] transferred to Michael Mackey MD. 01:20 Differential diagnosis: Nonspecific abd pain, gastritis, viral gastroenteritis, rn gastroenteritis, gastroparesis. Data reviewed: vital signs, nurses notes. Counseling: I had a detailed discussion with the patient and/or guardian regarding: the historical points, exam findings, and any diagnostic results supporting the discharge/admit diagnosis, lab results, radiology results, the need for outpatient follow up, to return to the emergency department if symptoms worsen or persist or if there are any questions or concerns that arise at home. Response to treatment: the patient's symptoms have markedly improved after treatment, the patient's condition has returned to base line, the patient is now symptom free, sleeping comfortably, no further emesis since arrival. . Special discussion: Based on the patient's Hx, exam, and Dx evaluation, there is no indication for emergent surgery or inpatient Tx. It is understood by the patient/guardian that if the Sx's persist or worsen they need to return immediately for re-evaluation. I discussed with the patient/guardian in detail that at this point there is no indication for admission to the hospital. It is understood, however, that if the symptoms persist or worsen the patient needs to return immediately for re-evaluation. Based on the history and exam findings, there is no indication for further emergent testing or inpatient evaluation. I discussed with the patient/guardian the need to see the oceanographer assistant for further evaluation of the symptoms. ED course: Improved, ct abdomen no acute findings, nonspecific skin thickening from subcutaneous shots he gives himself, no sign of infectious cellulitis. Will dc home as feels much better. . 04/13 23:47 Order name: Basic Metabolic Panel rn 04/13 23:47 Order name: CBC with Diff rn 04/13 23:47 Order name: Hepatic Function rn 04/13 23:47 Order name: Lipase rn 04/13 23:47 Order name: CT Abd/Pelvis - Without Contrast rn 04/13 23:48 Order name: Basic Metabolic Panel EDMS 04/13 23:47 Order name: IV Saline Lock; Complete Time: 00:05 rn 04/13 23:47 Order name: Labs collected and sent; Complete Time: 00:05 rn Administered Medications: 00:02 Drug: Reglan 10 mg Route: IVP; Site: right forearm; rr5 01:00 Follow up: Response: No adverse reaction; Marked relief of symptoms rr5 01:50 Follow up: Response: No adverse reaction ea 00:05 Drug: diphenhydrAMINE 12.5 mg Route: IVP; Site: right forearm; rr5 01:00 Follow up: Response: No adverse reaction; Pain is decreased rr5 01:50 Follow up: Response: No adverse reaction ea 00:08 Drug: Ativan 1 mg Route: IVP; Site: right forearm; rr5 01:00 Follow up: Response: No adverse reaction; Pain is decreased rr5 01:50 Follow up: Response: No adverse reaction ea Disposition: 02:42 Co-signature as Attending Physician, Michael Mackey MD. rn Disposition: 04/14/20 01:47 Discharged to Home. Impression: Gastroparesis. - Condition is Stable. - Discharge Instructions: Gastroparesis. - Medication Reconciliation Form, Thank You Letter, Antibiotic Education, Prescription Opioid Use form. - Follow up: Private Physician; When: As needed; Reason: Recheck today's complaints, Re-evaluation by your physician. - Problem is an acute exacerbation. - Symptoms have improved. Signatures: Dispatcher [employer] EDAL Brandee Pepper, JENNIE RN Adolfo Gross PA PA jmm Nieto, Roman, MD MD rn Antunez, Elena, RN Gregory Juarez ea RN RN rr5 Corrections: (The following items were deleted from the chart) 01:59 01:47 04/14/2020 01:47 Discharged to Home. Impression: Gastroparesis. Condition is ea Stable. Forms are Medication Reconciliation Form, Thank You Letter, Antibiotic Education, Prescription Opioid Use. Follow up: Private Physician; When: As needed; Reason: Recheck today's complaints, Re-evaluation by your physician. Problem is an acute exacerbation. Symptoms have improved. rn
--- NOTE | 2020-04-14 01:48 | ER ---
Nurse's Notes [facility] Name: Chase Chacon Jr Age: 44 yrs Sex: Male : 1975 Arrival Date: 04/13/2020 Time: 22:36 Bed 7 Private MD: Beverly James Diagnosis: Gastroparesis Presentation: 04/13 22:59 Chief complaint: Patient states: vomiting since Friday. Pt was seen here on Friday and dm5 D/C. pt states it is worse today that he cannot keep anything down. Pt did not take his medication this evening because he cannot keep anything down. Coronavirus screen: Client denies travel out of the [place] in the last 14 days. nausea, vomiting. The client reports previous COVID testing was negative. results are located within the EHR/EMR. Ebola Screen: Patient negative for fever greater than or equal to 101.5 degrees Fahrenheit, and additional compatible Ebola Virus Disease symptoms Patient denies exposure to infectious person. Patient denies travel to an Ebola-affected area in the 21 days before illness onset. No symptoms or risks identified at this time. Initial Sepsis Screen: Does the patient meet any 2 criteria? RR > 20 per min. No. Patient's initial sepsis screen is negative. Does the patient have a suspected source of infection? Yes: Acute abdominal pain. Risk Assessment: Do you want to hurt yourself or someone else? Patient reports no desire to harm self or others. Onset of symptoms was April 07, 2020. 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 - Social history:: Smoking status: unknown. Screenin:37 Abuse screen: Denies threats or abuse. Nutritional screening: No deficits noted. ea Tuberculosis screening: No symptoms or risk factors identified. Fall Risk None identified. Assessment: 23:47 General: Appears uncomfortable, Behavior is appropriate for age. Pain: Complains of ea pain in epigastric area. Neuro: Level of Consciousness is awake, alert, obeys commands, Oriented to person, place, time. Cardiovascular: Patient's skin is warm and dry. Respiratory: Airway is patent Respiratory effort is even, unlabored, Respiratory pattern is regular, symmetrical. GI: Abdomen is round Reports nausea, vomiting. Derm: Skin is dry, Skin is pale, Skin temperature is warm. 04/14 00:40 Reassessment: Patient appears in no apparent distress at this time. Patient is alert, rr5 oriented x 3, equal unlabored respirations, skin warm/dry/pink. awaiting for results. resting eyes closed arouse easily to verbal stimuli. 00:43 Reassessment: creatinine 9.27 candy from laboratory department called, ED provider rr5 aware. 01:35 Reassessment: Patient appears in no apparent distress at this time. Patient is alert, rr5 oriented x 3, equal unlabored respirations, skin warm/dry/pink. Patient states symptoms have improved. 01:57 Reassessment: Patient and/or family updated on plan of care and expected duration. Pain ea level reassessed. Patient is alert, oriented x 3, equal unlabored respirations, skin warm/dry/pink. Discharge instruction given to patient verbalized the understanding of instruction. Pt left ED via wheelchair, family in parking lot for transport home Patient states feeling better. Vital Signs: 04/13 22:59 BP 214 / 92; Pulse 85; Resp 22; Temp 98.3; Pulse Ox 98% on R/A; Weight 90.72 kg (R); dm5 Height 5 ft. 6 in. (167.64 cm); Pain 9/10; 04/14 01:25 BP 202 / 95; Pulse 80; Resp 20; Pulse Ox 98% ; rr5 01:35 BP 190 / 85; Pulse 85; Resp 19; Pulse Ox 97% ; rr5 04/13 22:59 Body Mass Index 32.28 (90.72 kg, 167.64 cm) dm5 ED Course: 04/13 22:36 Patient arrived in ED. am2 22:36 Beverly James is Private Physician. am2 23:02 Triage completed. dm5 23:35 Adolfo Savage PA is PHCP. jmm 23:35 Michael Mackey MD is Attending Physician. jmm 23:37 Karuna Malik RN is Primary Nurse. ea 23:37 Patient has correct armband on for positive identification. Bed in low position. Call ea light in reach. Side rails up X2. 23:37 Arm band placed on right wrist. Patient placed in an exam room, on a stretcher, on ea pulse oximetry. 04/14 00:04 Inserted saline lock: 20 gauge in right forearm, using aseptic technique. ea 00:40 CT Abd/Pelvis - Without Contrast In Process Unspecified. EDMS 01:36 No provider procedures requiring assistance completed. rr5 01:40 IV discontinued, intact, bleeding controlled, No redness/swelling at site. Pressure ea dressing applied. Administered Medications: 00:02 Drug: Reglan 10 mg Route: IVP; Site: right forearm; rr5 01:00 Follow up: Response: No adverse reaction; Marked relief of symptoms rr5 01:50 Follow up: Response: No adverse reaction ea 00:05 Drug: diphenhydrAMINE 12.5 mg Route: IVP; Site: right forearm; rr5 01:00 Follow up: Response: No adverse reaction; Pain is decreased rr5 01:50 Follow up: Response: No adverse reaction ea 00:08 Drug: Ativan 1 mg Route: IVP; Site: right forearm; rr5 01:00 Follow up: Response: No adverse reaction; Pain is decreased rr5 01:50 Follow up: Response: No adverse reaction ea Outcome: 01:47 Discharge ordered by . rn 01:59 Discharged to home ambulatory, with family. ea 01:59 Condition: stable 01:59 Discharge instructions given to patient, Instructed on discharge instructions, follow up and referral plans. Demonstrated understanding of instructions, follow-up care. 01:59 Patient left the ED. ea Signatures: Dispatcher [employer] Brandee Lewis RN RN dm5 Adolfo Savage PA PA jmm Nieto, Roman, MD MD rn Moreno, Amanda am2 Antunez, Elena, RN RN ea Roque, Raymond RN RN rr5
[2020-04-14 02:06] VITALS: TEMP 98.3
[2020-04-14 02:09] VITALS: BP 190/85; O2SAT 97
--- NOTE | 2020-04-14 11:05 | RAD REPORT ---
EXAM DESCRIPTION: CT - Abdomen Pelvis Wo Contrast - 04/14/2020 6:50 am CLINICAL HISTORY: The patient is 44 years old and is Male; NAUSEA / VOMITING TECHNIQUE: Axial computed tomography images of the abdomen and pelvis without intravenous contrast. Sagittal and coronal reformatted images were created and reviewed. This CT exam was performed usi ng one or more of the following dose reduction techniques: automated exposure control, adjustment o f the mA and/or kV according to patient size, and/or use of iterative reconstruction technique. COMPARISON: CT of the abdomen and pelvis March 24, 2019 FINDINGS: LUNG BASES: Unremarkable. No mass. No consolidation. ABDOMEN: LIVER: Homogeneous without focal mass. GALLBLADDER AND BILE DUCTS: No calcified stones. No ductal dilation. PANCREAS: Unremarkable. No ductal dilation. SPLEEN: Unremarkable. ADRENALS: Unremarkable. No mass. KIDNEYS AND URETERS: Innumerable bilateral renal cysts are present. The kidneys are atrophic. Th ere is no hydronephrosis or hydroureter of either kidney. STOMACH AND BOWEL: The stomach is decompressed. The small bowel is normal in caliber. Stool is p resent throughout the colon. No evidence of bowel obstruction. No significant bowel wall thickening. Colonic diverticulosis is noted, without associated inflammatory changes to suggest diverticulitis. PELVIS: APPENDIX: The appendix is normal in caliber without surrounding inflammation. BLADDER: The bladder is nearly empty. No stones. REPRODUCTIVE: Unremarkable as visualized. ABDOMEN and PELVIS: INTRAPERITONEAL SPACE: Unremarkable. No free air. No significant fluid collection. BONES/JOINTS: Degenerative change of the spine is present. The bones are slightly sclerotic whic h can be seen with renal osteodystrophy. Schmorl's nodes are noted at several levels. SOFT TISSUES: A small fat and fluid containing umbilical hernia is present. Focal skin thicken ing with underlying inflammatory stranding along the left lower anterior abdominal wall is present. VASCULATURE: Extensive atherosclerosis of the vasculature is present. Multiple calcified phleb oliths are present within the pelvis. No abdominal aortic aneurysm. LYMPH NODES: Unremarkable. No enlarged lymph nodes. IMPRESSION: 1. Colonic diverticulosis without evidence of diverticulitis. 2. Focal skin thickening and inflammatory stranding at the left lower abdominal wall. Findings may be related to an infectious process. Electronically signed by: Suzi Monge MD 04/14/2020 12:56 AM ROLLER PRINTER Due to temporary technical issues with the PACS/Fluency reporting system, reports are being signed by the in house radiologist without review as a courtesy to ensure prompt reporting. The interpreting r adiologist is fully responsible for the content of the report.
== END 2020-04-14 01:59 | disposition home or self-care (01) ==
LOC: ER 22:27
DX: E11.43 Type 2 diabetes mellitus with diabetic autonomic (poly)neuropathy (principal); K31.84 Gastroparesis; E11.22 Type 2 diabetes mellitus with diabetic chronic kidney disease; I12.0 Hypertensive chronic kidney disease with stage 5 chronic kidney disease or end stage renal disease; N18.6 End stage renal disease; Z99.2 Dependence on renal dialysis
CPT/HCPCS: 85025; 80048; 36415; 80076; 83690; 74176; 96375; 96374; 99284; J1200

== ENCOUNTER 2020-06-09 13:02 | Emergency (ER) | payer OTHER ==
--- OUTSIDE RECORDS SUMMARY | 2020-06-09 13:06 | XMS REPORT | Continuity of Care Document ---
:1975 Author Organization [facility] t Address [address] [place] [address] [place] [address] Care Team Providers Name Role Phone Lauren Moore MD Attending Clinician Navi SAINI, K N Attending Clinician Doctor Unassigned, Name Attending Clinician Unavailable Ty SAINI, K.H. Attending Clinician Problems Condition [...] 09-07 10:20:15 l N ERECTILE 00:00: Simon chapman DYSFUNCTIO 00 N Active 09/07/2014 [facility] PHYSICAL Condition Active 2014-09-07 M emoria EXAMINATIO 09-07 10:20:15 l N PHYSICAL 00:00: Simon chapman EXAMINATIO 00 N Active 09/07/2014 [facility] HYPERLIPID Condition Active 2014-09-07 Memoria EMIA - 08-31 10:20:15 l MIXED 00:00: [place] HYPERLIPID 00 EMIA - MIXED Active 08/31/2013 [facility] PRE-OP CV Condition Active 2014-09-07 Memoria EXAM 08-31 10:20:15 l PRE-OP 00:00: [place] CV EXAM 00 Active 08/31/2013 [facility] RENAL Condition Active 2014-09-07 Mem oria FAILURE, 06-05 10:20:15 l CHRONIC RENAL 00:00: [place] FAILURE, 00 CHRONIC Active 06/05/2012 [facility] ANEMIA IN Condition Active 2014-09-07 Memoria CHRONIC 06-05 10:20:15 l KIDNEY ANEMIA 00:00: [place] DISEASE IN CHRONIC 00 KIDNEY DISEASE Active [...] Mem oria 3- 10:20:15 l COUGH 00:00: [place] 00 Active 06/02/2012 [facility] DIABETIC Condition Active 2011-032014-09-07 M emoria RETINOPATH 05-12 10:20:15 l Y DIABETIC 00:00: Simon n RETINOPAT 00 HY Active 2 Condition 09/07/2014 [facility] HYPERTENSI Condition Active 2011-032014-09-07 Memoria ON 05-12 10:20:15 l 00:00: [place] HYPERTENSI 00 ON Active 2 Condition 09/07/2014 [facility] Chronic Problem Active 2012-04-07 Mariano steven Kidney 21:40:14 l Disease, Chronic [place] nn Stage 4 Kidney Disease, Stage 4 Active 3 [facility] End Stage Problem Active 2012-04-07 Me moria Renal 21:40:14 l Disease End [place] Stage Renal Disease Active 3 [facility] History of Past Illness Condition Condition [...] Date Quantity Comments Source Sex Assigned At [facility] Social History 2012-04-07 2012-04-07 [facility]cy 21:40:14 21:40:14 Smoking Status Start Date Stop Date Source Never smoker [facility] Medications Ordered Filled Start Stop Current Ordering Indication Dosage Frequency Signature Comments Components Source Medication Medication Date Date Medication? Clinician (SIG) Name Name CALCIUM Yes one cap Memoria ACETATE 667 6-24 tid with l MG CAPS 00:00: meals [place] 00 BD INSULIN Yes use as Memor ia SYRINGE 3-05 directed l HALF-UNIT 00:00: [place] 31G X 5/16" 00 0.3 ML MISC BD PEN Yes use as Memoria NEEDLE 3-04 directed l SHORT U/F 00:00: [place] 31G X 8 MM 00 MISC APIDRA 100 No inject Memor ia UNIT/ML 3-04 10units in l SOLN 00:00: the am, [place] 00 15units at lunch,and 10 units in the evening BD PEN Yes use as Memoria NEEDLE 3-04 directed l SHORT U/F 00:00: [place] 31G X 8 MM 00 MISC NOVOLOG 100 2012-03 Yes inject Mariano steven UNIT/ML 1-19 10-15units l SOLN 00:00: tid with [place] 00 meals sc NOVOLOG 100 2012-03 Yes inject Mariano steven UNIT/ML 1-19 10-15units l SOLN 00:00: tid with [place] 00 meals sc ZITHROMAX No Take 2 [...] oria Medications 1-17 Medication l 01:30: s [place] 26 REGLAN 10 No 1 po qd [...] TABS 9-21 orally l 00:00: twice a [place] week on Friday and Vital Signs Vital Name Observation Time Observation Value Comments Source Systolic (mm Hg) 2014-09-07 15:20:15 Mariano rial [place] Diastolic (mm Hg) 2014-09-07 15:20:15 Mem orial [place] Heart Rate 2014-09-07 15:20:15 [facility] [place] Temperature Oral (F) 2014-09-07 15:20:15 98.3 F [facility] [place] Height 2014-09-07 15:20:15 [facility] [place] Weight 2014-09-07 15:20:15 [facility] [place] Respitory Rate 2014-09-07 15:20:15 Memori al [place] Weight 2013-09-08 14:22:12 [facility] [place] Temperature Oral (F) 2013-09-08 14:22:12 98.0 F [facility] [place] Heart Rate 2013-09-08 14:22:12 [facility] [place] Systolic (mm Hg) 2013-09-08 14:22:12 Mariano rial [place] Diastolic (mm Hg) 2013-09-08 14:22:12 Mem orial [place] Systolic (mm Hg) 2013-08-31 15:43:31 Mariano rial [place] Diastolic (mm Hg) 2013-08-31 15:43:31 Mem orial [place] Heart Rate 2013-08-31 15:43:31 [facility] [place] Weight 2013-08-31 15:43:31 [facility] [place] Weight 2012-06-02 15:36:10 [facility] [place] Height 2012-06-02 15:36:10 [facility] [place] Temperature Oral (F) 2012-06-02 15:36:10 98.4 F [facility] [place] Heart Rate 2012-06-02 15:36:10 [facility] [place] Systolic (mm Hg) 2012-06-02 15:36:10 Mariano rial [place] Diastolic (mm Hg) 2012-06-02 15:36:10 Mem orial [place] Procedures This patient has no known procedures. Encounters Start End Encounter Admission Attending Care Care Encounter Source Date/Time Date/Time Type Type Clinicians Facility Department ID 2018-06-22 Inpatient [facility] [address] [facility] 07:53:49 2018-06-22 Outpatient [facility] [id number] [facility] 07:53:48 2020-05-16 2020-05-16 [facility] [id number] 00:00:00 00:00:00 Aguilar A MULTISPEC 350.1.13.10 [place]AL[place] [id number] [place] [id number] [facility] 2020-05-16 2020-05-16 Telephone [facility] [id number] 00:00:00 00:00:00 Aguilar A MULTISPEC 350.1.13.10 IAL[place] 4.2.7.2.686 [place] [id number] [facility] 2020-05-15 2020-05-15 Telephone Perla [facility] [id number] 00:00:00 00:00:00 Izzy santana MULTISPEC 350.1.13.10 IALTY 4.2.7.2.686 [place] [id number] [facility] 2020-05-15 2020-05-15 Abstract Perla [facility] [id number] 00:00:00 00:00:00 Izzy santana MULTISPEC 350.1.13.10 IAL[place] 4.2.7.2.686 [place] [id number] [facility] 2020-05-12 2020-05-12 Abstract [facility] [id number] 00:00:00 00:00:00 Lauren Bobo MULTISPEC 350.1.13.10 IAL[place] 4.2.7.2.686 [place] [id number] [facility] 2020-05-12 2020-05-12 Committee [facility] [id number] 00:00:00 00:00:00 Review Aguilar A MULTISPEC 350.1.13.10 IAL[place] 4.2.7.2.686 [place] [id number] [facility] 2020-04-18 2020-04-18 Orders Doctor WHITLOCK [id number] 00:00:00 00:00:00 Only Unassigned, JACQUE 350.1.13.10 [employer] [facility] 4.2.7.2.686 [id number] 2020-02-28 2020-02-28 Office [facility] [id number] 12:46:09 13:47:51 Visit Mariposa Crespo 350.1.13.10 Therese 4.2.7.2.686 Christin [id number] nal 059 [facility] 2012-04-07 2012-04-07 Outpatient 3 3 [id number] 15:40:31 15:40:14 2012-03-08 2012-03-08 Outpatient 3 3 [id number] 13:29:27 13:29:12 2012-02-04 2012-02-04 Outpatient 3 3 [id number] 11:20:09 11:19:53 2012-01-31 2012-01-31 Outpatient 3 3 [id number] 19:30:42 19:30:26 2012-01-31 2012-01-31 Outpatient 3 3 [id number] 16:34:08 16:33:53 2012-01-31 2012-01-31 Outpatient 3 3 [id number] 14:49:27 14:49:11 Results Test Description Test Time [...] code = BUN/CREAT) 9 1 6-25 [facility] YwjeoxnEkjorbgjw6725-07-24 14[facility]45[facility] 2012-10-23 14:45:009.0[facility] XkftltrVtkeqjlcm7254-97-93 14:45:0021[facility] XpzdlobKxbbjgjtc2726-11-85 14:45:009[facility] XntyhqtWqbxnumhm3256-71-81 14:45:00 67[facility] VzonfkqAoyalspbjk3063-22-06 14:45:0013.2[facility] 2012-10-23 14:45:0041.5[facility] VdkvcmxNjkbjkccgy2725-75-90 14:45:02964 K/CMM [facility] FoyqtcvGeviibnps5070-66-23 21:12:004.6 MEQ/L[facility] 2012-06-04 21:12:007.4[facility] YeemfsgLpowktasj3977-95-90 21:12:0053[facility] EehcpweJedmdtzub6858-91-81 21:12:00 Test Item Value Reference Range Interpretation Comments BUN/CREAT (test code = BUN/CREAT) 7 09-08 [facility] UhcsjmqOvpcopyaz3020-52-93 21:12:002.2[facility] 2012-06-04 21:12:007.2[facility] BvwqxkyDgjvnvpjy4255-46-82 21:12:0024[facility] VzdqsdcTcyovmltg8349-90-24 21:12:0027[facility] SkcaefbRkmenhykk5199-15-10 21:12:0066[facility] EwxskyrLgjsrmrqbf9740-69-70 21:12:007.9[facility] [place] Caahrysjry8864-34-00 21:12:0023.7[facility] WbxrvejAehtwsblzm9926-90-84 21:12:00 289 K/CMMMemorial MpqnyysYfdbzywong5793-61-58 21:12:007.9[facility] [place] Iemgbmqssx8941-63-76 21:12:0023.7[facility] WrwrrzoLxntgukghw6794-54-87 21:12:00 289 K/CMMMemorial JhrhyvgRrtlxjexp8082-44-49 21:12:005.1[facility] [place] Hfyvlwrib0647-76-42 21:12:86677Amidntut QtepnriKnwnxdhmc5810-88-52 21:12:22183 [facility] NhhaapjRzmagdzhx1008-98-97 21:12:0037[facility] 2012-06-04 21:12:10492Bhvarouz IqyfsezMywlakvwg3869-59-37 21:12:36409 MEQ/L [facility] NbdqrheSwzqnsfah2664-68-56 21:12:004.6 [facility] 2012-06-04 21:12:007.4[facility] XuksgmlLcdhxpnmz5353-96-86 21:12:0053[facility] WcmchsdOtnsywhje4063-54-60 21:12:00 Test Item Value Reference Range Interpretation Comments BUN/CREAT (test code = BUN/CREAT) 7 09-08 [facility] WmczorkTkqmgiugk3566-88-91 21:12:002.2[facility] 2012-06-04 21:12:007.2[facility] RrxhntvJysguslrn5723-22-26 21:12:0024[facility] NvxmyalZxqytzsnr5124-56-46 21:12:0027[facility] LluemkbSegmfvlhq0082-05-85 21:12:0066[facility] EkloujeRnvlkuvvb7019-22-91 21:12:005.1[facility] [place] Ckifyuost0743-22-75 21:12:17253Jqltpwdg LsozsidQbnligexm5304-50-81 21:12:48745 [facility] BpeaucdRkovrtvsu0734-93-83 21:12:0037[facility] 2012-06-04 21:12:41680Idgwctpv XlidoksYuqiseegm0219-08-66 21:12:37703 MEQ/L [facility] YylobcwVjhrfzxzx8504-03-97 20:28:006.9[facility] 2011-11-12 20:28:001.420[facility] ThjlstqQfrliwdfm3947-23-54 20:28:68098Qrgkbjnb YazyavwPlwhwjnlb9022-89-68 20:28:00013Jqcpztls RzbykuyAduzavihq2823-78-98 20:28:0054[facility] SrtzfhuNyejvjtks5445-46-42 20:28:44253Qqsczpiz [place] Gtvpohizx6083-87-84 20:28:65446 MEQ/LMemorial YfitdkwRbwlqustl0718-95-31 20:28:004.7 MEQ/LMemorial MuprvczKiziseyvh6941-52-22 20:28:004.9[facility] [place] Pafmkzgdw1400-61-15 20:28:0063[facility] CfhtliwMysuzwogp2295-27-34 20:28:00 Test Item Value Reference Range Interpretation Comments BUN/CREAT (test code = BUN/CREAT) 13 09-08 [facility] JvjxkuhXmkefwlxh7929-46-58 20:28:001.8[facility] 2011-11-12 20:28:007.6[facility] IwrnkmuMgwuyrjpj4801-33-17 20:28:0017[facility] AzoorwuObkruvctl3096-31-48 20:28:0014[facility] RddqpzsOxanpntwe4399-52-95 20:28:0068[facility] [place]
[2020-06-09 14:47] LABS: Absolute Lymphocytes (CBC) 0.9 K/uL (0.7-4.9); Basophils % 0.6 % (0-1.3); Hematocrit 26.9 % (39.6-49.0); Lymphocytes % 14.8 % (15.3-44.8); MPV 8.2 fL (7.6-11.3)
[2020-06-09 14:49] LABS: Protime INR 1.06
[2020-06-09] MEDS ORDERED: METOCLOPRAMIDE 10 MG/2mL INJ ONE (14:59)
[2020-06-09] MEDS ORDERED: PANTOPRAZOLE 40 MG INJ ONE (15:00)
[2020-06-09 15:15] LABS: ALT/SGPT 13 U/L (12-78); AST/SGOT 6 U/L (15-37); Albumin 3.2 g/dL (3.4-5.0); Alkaline Phosphatase 70 U/L (45-117); BUN Blood Urea Nitrogen 45 mg/dL (7-18); Bicarbonate 30 mmol/L (21-32); Bilirubin Direct 0.1 mg/dL (0-0.2); Bilirubin Total 0.4 mg/dL (0.2-1.0); Glucose Level 163 mg/dL (74-106); Lipase 105 U/L (73-393); Magnesium 2.1 mg/dL (1.8-2.4); Protein, Total 8.6 g/dL (6.4-8.2); Sodium Level 138 mmol/L (136-145); Troponin I < 0.02 ng/mL (0.0-0.045)
--- NOTE | 2020-06-09 15:48 | RAD REPORT ---
EXAM DESCRIPTION: CT - Abdomen Pelvis Wo Contrast - 06/09/2020 3:37 pm CLINICAL HISTORY: Abdominal pain COMPARISON: March 2020 TECHNIQUE: Computed axial tomography of the abdomen and pelvis was obtained. IV and oral contrast we re not requested. All CT scans are performed using dose optimization technique as appropriate and may include automated exposure control or mA/KV adjustment according to patient size. FINDINGS: The evaluation of solid organs, vessels and bowel is limited secondary to the lack of con trast administration. The liver, spleen, pancreas, and adrenals appear grossly normal. Multiple, bilateral cysts are without change. No evidence of hemorrhage within the cyst. No hydroneph rosis. Diverticula stem from the colon without evidence of diverticulitis. A small to moderate umbilical hernia is present. The neck measures 1 centimeter. IMPRESSION: No acute abnormality is displayed.
[2020-06-09] MEDS ORDERED: HYDRALAZINE HCL 20 MG/ML VIAL ONE (16:36)
[2020-06-09] MEDS ORDERED: cloNIDine HCL 0.1 MG TAB ONE (17:17)
--- NOTE | 2020-06-09 17:34 | ER ---
Nurse's Notes [facility] Name: Chase Chacon Jr Age: 45 yrs Sex: Male : 1975 Arrival Date: 06/09/2020 Time: 13:04 Bed 20 Private MD: Diagnosis: Nausea and vomiting Presentation: 06/09 13:19 Chief complaint: Patient states: N/V/D for 2 days with abdominal pain. Noticed his L ll1 chest felt tight yesterday and today. Coronavirus screen: Client denies travel out of the [place] in the last 14 days. diarrhea, nausea, vomiting. Client presents with at least one sign or symptom that may indicate coronavirus-19. Standard/surgical mask placed on the client. Ebola Screen: Patient denies travel to an Ebola-affected area in the 21 days before illness onset. Initial Sepsis Screen: Does the patient meet any 2 criteria? No. Patient's initial sepsis screen is negative. Does the patient have a suspected source of infection? Yes: Acute abdominal pain. Risk Assessment: Do you want to hurt yourself or someone else? Patient reports no desire to harm self or others. Onset of symptoms was June 08, 2020. 13:19 Method Of Arrival: Ambulatory ll1 13:19 Acuity: LEON 3 ll1 Triage Assessment: 17:57 General: Appears Behavior is calm, cooperative, appropriate for age. GI: Reports bw nausea, vomiting. Historical: - Allergies: 13:23 Phenergan; ll1 - PMHx: 13:23 Cataracts; Diabetes - NIDDM; Dialysis; M/W/F; ESRD; Gastroparesis; Hypertension; kidney ll1 disease; - PSHx: 13:23 dialysis ports; ll1 - Immunization history:: Flu vaccine is not up to date. - Social history:: Smoking status: Patient denies any tobacco usage or history of. Screenin:30 Abuse screen: Denies threats or abuse. Nutritional screening: No deficits noted. bw Tuberculosis screening: No symptoms or risk factors identified. Fall Risk None identified. Assessment: 14:00 Pain: Complains of pain in abdomen. Neuro: No deficits noted. Cardiovascular: No bw deficits noted. Respiratory: No deficits noted. GI: Abdomen is non-distended, Bowel sounds present X 4 quads. Abd is soft Abdomen is tender to palpation. : No signs and/or symptoms were reported regarding the genitourinary system. 15:00 Reassessment: Patient appears in no apparent distress at this time. Patient and/or bw family updated on plan of care and expected duration. Pain level reassessed. Patient is alert, oriented x 3, equal unlabored respirations, skin warm/dry/pink. 16:00 Reassessment: pt hypertensive at this time. MD aware. Will continue to monitor. Orders bw received. 17:00 Reassessment: pt continues to be hypertensive at this time. MD aware. Orders received bw for clonidine 0.2 mg PO. Will continue to monitor. 17:55 Reassessment: Patient appears in no apparent distress at this time. Patient and/or bw family updated on plan of care and expected duration. Pain level reassessed. Patient is alert, oriented x 3, equal unlabored respirations, skin warm/dry/pink. Pt blood pressure has lowered. MD aware. PT to be DC. Vital Signs: 13:19 BP 189 / 99; Pulse 84; Resp 18; Temp 98.4; Pulse Ox 97% on R/A; Weight 90.72 kg; Height ll1 5 ft. 6 in. (167.64 cm); Pain 6/10; 14:00 BP 184 / 90; Pulse 81; Resp 18; Pulse Ox 97% on R/A; bw 15:30 BP 188 / 97; Pulse 82; Resp 18; Pulse Ox 97% on R/A; bw 16:55 BP 204 / 98; Pulse 90; Pulse Ox 100% ; bw 17:56 BP 175 / 87; Pulse 84; Resp 18; Pulse Ox 97% on R/A; bw 13:19 Body Mass Index 32.28 (90.72 kg, 167.64 cm) ll1 ED Course: 13:04 Patient arrived in ED. mr 13:22 Triage completed. ll1 13:22 Arm band placed on. ll1 13:34 EKG completed in triage. Results shown to MD. ss 13:52 Sunny Truong PA is PHCP. cp 13:52 Babak Henriquez MD is Attending Physician. cp 14:20 Nan Galicia, JENNIE is Primary Nurse. bw 14:47 Basic Metabolic Panel Sent. bw 15:30 Patient has correct armband on for positive identification. Call light in reach. Side bw rails up X2. Pulse ox on. NIBP on. Warm blanket given. 15:30 No provider procedures requiring assistance completed. Inserted saline lock: 20 gauge bw in right hand, using aseptic technique. Blood collected. 15:37 CT Abd/Pelvis - Without Contrast In Process Unspecified. EDMS 17:56 IV discontinued, intact, No redness/swelling at site. Pressure dressing applied. bw Administered Medications: 14:47 Drug: ProTONIX 40 mg Route: IVP; Site: right hand; bw 16:03 Follow up: Response: No adverse reaction bw 14:47 Drug: Reglan 10 mg Route: IVP; Site: right hand; bw 16:02 Follow up: Response: No adverse reaction bw 16:23 Drug: hydrALAZINE 10 mg Route: IV; Rate: per protocol; Site: right hand; bw 17:58 Follow up: Response: No adverse reaction; IV Status: Completed infusion bw 17:06 Drug: cloNIDine 0.2 mg Route: PO; bw 17:54 Follow up: Response: No adverse reaction; Blood pressure is lowered bw Outcome: 17:33 Discharge ordered by . karli 17:56 Discharged to home ambulatory. 17:56 Condition: stable 17:56 Discharge instructions given to patient, Instructed on discharge instructions, follow up and referral plans. medication usage, Demonstrated understanding of instructions, medications, Prescriptions given X 2. 18:02 Patient left the ED. Signatures: Dispatcher [employer] [facility] AsimRachel mr ClementLeanne, RN RN Sunny Dominguez PA PA cp Lewis, Lynsay, RN RN llNan Landry RN RN
--- NOTE | 2020-06-09 17:34 | EDPHYS ---
Physician Documentation [facility] Name: Chase Chacon Jr Age: 45 yrs Sex: Male : 1975 Arrival Date: 06/09/2020 Time: 13:04 Bed 20 Private MD: ED Physician Babak Henriquez HPI: 06/09 14:08 This 45 yrs old Male presents to ER via Ambulatory with complaints of cp Nausea/Vomiting. 14:08 The patient presents to the emergency department with nausea, that is moderate, cp vomiting, that is intermittent, diarrhea, that is continuous. Onset: The symptoms/episode began/occurred 2 day(s) ago. Possible causes: flare up of bowel problem, gastroparesis. Associated signs and symptoms: Pertinent positives: abdominal pain, Pertinent negatives: constipation, fever, GI bleeding. Severity of symptoms: in the emergency department the symptoms are unchanged despite home interventions. Historical: - Allergies: 13:23 Phenergan; ll1 - PMHx: 13:23 Cataracts; Diabetes - NIDDM; Dialysis; M/W/F; ESRD; Gastroparesis; Hypertension; kidney ll1 disease; - PSHx: 13:23 dialysis ports; ll1 - Immunization history:: Flu vaccine is not up to date. - Social history:: Smoking status: Patient denies any tobacco usage or history of. ROS: 14:12 Constitutional: Negative for body aches, chills, fever. cp 14:12 Cardiovascular: Positive for chest pain yesterday. 14:12 Abdomen/GI: Positive for nausea and vomiting, diarrhea, Negative for constipation, hematemesis, black/tarry stool, rectal bleeding. 14:12 Eyes: Negative for injury, pain, redness, and discharge. cp 14:12 Respiratory: Negative for cough, shortness of breath, wheezing. 14:12 Neuro: Negative for altered mental status, dizziness, headache, weakness. 14:12 All other systems are negative. cp Exam: 14:15 Constitutional: The patient appears in no acute distress, alert, awake, cp non-diaphoretic, non-toxic, well developed, well nourished, obese. 14:15 Head/Face: Normocephalic, atraumatic. cp 14:15 Eyes: Periorbital structures: appear normal, Conjunctiva: normal, no exudate, no injection, Sclera: no appreciated abnormality, Lids and lashes: appear normal, bilaterally. 14:15 ENT: External ear(s): are unremarkable, Nose: is normal, Mouth: Lips: moist, Oral mucosa: moist, Posterior pharynx: Airway: no evidence of obstruction, patent. 14:15 Chest/axilla: Inspection: normal, Palpation: is normal, no crepitus, no tenderness. 14:15 Cardiovascular: Rate: normal, Rhythm: regular. 14:15 Respiratory: the patient does not display signs of respiratory distress, Respirations: normal, no use of accessory muscles, no retractions, labored breathing, is not present, Breath sounds: are clear throughout, no decreased breath sounds. 14:15 Abdomen/GI: Inspection: abdomen appears normal, Bowel sounds: active, all quadrants, Palpation: soft, in all quadrants, mild abdominal tenderness, in the epigastric area, rebound tenderness, is not appreciated, voluntary guarding, is not appreciated, involuntary guarding, is not appreciated. 14:15 Back: CVA tenderness, is absent. 14:15 Neuro: Orientation: to person, place \T\ time. Mentation: is normal, Motor: moves all fours, strength is normal. 14:20 ECG was reviewed by the Attending Physician. Vital Signs: 13:19 BP 189 / 99; Pulse 84; Resp 18; Temp 98.4; Pulse Ox 97% on R/A; Weight 90.72 kg; Height ll1 5 ft. 6 in. (167.64 cm); Pain 6/10; 14:00 BP 184 / 90; Pulse 81; Resp 18; Pulse Ox 97% on R/A; bw 15:30 BP 188 / 97; Pulse 82; Resp 18; Pulse Ox 97% on R/A; bw 16:55 BP 204 / 98; Pulse 90; Pulse Ox 100% ; bw 17:56 BP 175 / 87; Pulse 84; Resp 18; Pulse Ox 97% on R/A; bw 13:19 Body Mass Index 32.28 (90.72 kg, 167.64 cm) ll1 MDM: 13:59 Patient medically screened. cp 17:32 Data reviewed: vital signs, nurses notes, lab test result(s), EKG, radiologic studies, cp CT scan. 17:32 Test interpretation: by ED physician or midlevel provider: ECG. Counseling: I had a cp detailed discussion with the patient and/or guardian regarding: the historical points, exam findings, and any diagnostic results supporting the discharge/admit diagnosis, lab results, radiology results, to return to the emergency department if symptoms worsen or persist or if there are any questions or concerns that arise at home. Response to treatment: the patient's symptoms have markedly improved after treatment, VSS. Nausea markedly improved and vomiting resolved, and as a result, I will discharge patient. 06/09 14:11 Order name: Basic Metabolic Panel 06/09 14:11 Order name: CBC with Diff; Complete Time: 15:00 06/09 15:00 Interpretation: Normal except: RBC 2.90; HGB 9.2; HCT 26.9; RDW 15.3; LYM% 14.8. 06/09 14:11 Order name: Hepatic Function; Complete Time: 15:18 06/09 15:18 Interpretation: Normal except: AST 6; TP 8.6; ALB 3.2; GLOB 5.4; A/G 0.6. 06/09 14:11 Order name: Lipase; Complete Time: 15:18 06/09 14:11 Order name: Magnesium; Complete Time: 15:18 06/09 14:12 Order name: Basic Metabolic Panel; Complete Time: 15:18 EDMS 06/09 15:18 Interpretation: Normal except: CL 97; GLUC 163; BUN 45; CRE 11.30; GFR 5. 06/09 13:34 Order name: EKG; Complete Time: 13:35 ss 06/09 14:12 Order name: Troponin I; Complete Time: 15:18 06/09 14:12 Order name: PT-INR; Complete Time: 15:00 06/09 15:20 Order name: CT Abd/Pelvis - Without Contrast; Complete Time: 15:50 06/09 14:11 Order name: IV Saline Lock; Complete Time: 14:47 06/09 14:11 Order name: Labs collected and sent; Complete Time: 14:47 06/09 15:51 Order name: PO challenge; Complete Time: 16:11 cp EC:20 Rate is 81 beats/min. Rhythm is regular. SC interval is normal. QRS interval is normal. cp QT interval is prolonged at 420 msec. T waves are Inverted in lead aVR. Interpreted by me. Reviewed by me. Administered Medications: 14:47 Drug: ProTONIX 40 mg Route: IVP; Site: right hand; bw 16:03 Follow up: Response: No adverse reaction bw 14:47 Drug: Reglan 10 mg Route: IVP; Site: right hand; bw 16:02 Follow up: Response: No adverse reaction bw 16:23 Drug: hydrALAZINE 10 mg Route: IV; Rate: per protocol; Site: right hand; bw 17:58 Follow up: Response: No adverse reaction; IV Status: Completed infusion bw 17:06 Drug: cloNIDine 0.2 mg Route: PO; bw 17:54 Follow up: Response: No adverse reaction; Blood pressure is lowered bw Disposition: 18:05 Chart complete. cp 18:19 Co-signature as Attending Physician, Babak Henriquez MD I agree with the assessment and kdr plan of care. Disposition: 06/09/20 17:33 Discharged to Home. Impression: Nausea and vomiting. - Condition is Stable. - Discharge Instructions: Nausea and Vomiting, Adult. - Prescriptions for Reglan 10 mg Oral Tablet - take 1 tablet by ORAL route every 6 hours take 30 minutes before meals and at bedtime; 30 tablet. Protonix 40 mg Oral Tablet - take 1 tablet by ORAL route once daily; 30 tablet. - Medication Reconciliation Form, Thank You Letter, Antibiotic Education, Prescription Opioid Use form. - Follow up: Private Physician; When: 1 - 2 days; Reason: Recheck today's complaints. - Problem is an ongoing problem. - Symptoms have improved. Signatures: Dispatcher [employer] EDMS Babak Henriquez MD MD [facility] Sunny Truong PA PA cp Jacquelyn Milton RN RN [facility] Nan Galicia RN RN Corrections: (The following items were deleted from the chart) 18:02 17:33 06/09/2020 17:33 Discharged to Home. Impression: Nausea and vomiting. Condition bw is Stable. Discharge Instructions: Nausea and Vomiting, Adult. Prescriptions for Reglan 10 mg Oral Tablet - take 1 tablet by ORAL route every 6 hours take 30 minutes before meals and at bedtime; 30 tablet. and Forms are Medication Reconciliation Form, Thank You Letter, Antibiotic Education, Prescription Opioid Use. Follow up: Private Physician; When: 1 - 2 days; Reason: Recheck today's complaints. Problem is an ongoing problem. Symptoms have improved. cp
--- NOTE | 2020-06-10 11:14 | EKG ---
Test Date: 2020-06-09 Test Time: 13:31:22 Cafeteria Helper: [place] MEASUREMENT RESULTS: Intervals: Rate: 81 MN: 160 QRSD: 84 QT: 420 QTc: 487 [place]: P: 16 MN: 160 QRS: -50 T: 38 INTERPRETIVE STATEMENTS: Normal sinus rhythm Left axis deviation Prolonged QT Abnormal ECG Compared to ECG 03/29/2020 04:00:48 Left-axis deviation now present ST (T wave) deviation no longer present Electronically Signed On 06-10-20 11:11:24 CDT by Juels Yadav
[2020-06-10 13:34] VITALS: TEMP 98.4
[2020-06-10 13:40] VITALS: BP 175/87; O2SAT 97
== END 2020-06-09 18:02 | disposition home or self-care (01) ==
LOC: ER 13:02
DX: R11.2 Nausea with vomiting, unspecified (principal); R19.7 Diarrhea, unspecified; E11.43 Type 2 diabetes mellitus with diabetic autonomic (poly)neuropathy; K31.84 Gastroparesis; E11.22 Type 2 diabetes mellitus with diabetic chronic kidney disease; I12.0 Hypertensive chronic kidney disease with stage 5 chronic kidney disease or end stage renal disease; N18.6 End stage renal disease; Z99.2 Dependence on renal dialysis
CPT/HCPCS: 96365; 93005; 85025; 80048; 36415; 83735; 85610; 80076; 84484; 83690; 74176; 96375; 99284; 96366; J0360; J2765; C9113

== ENCOUNTER 2020-09-03 14:47 | Emergency (ER) | payer OTHER ==
--- OUTSIDE RECORDS SUMMARY | 2020-09-03 14:50 | XMS REPORT | Continuity of Care Document ---
:1975 Author Organization [facility] t Address [address] [place] [place] [address] Care Team Providers Name Role Phone Lauren Moore MD Attending Clinician Navi SAINI, K N Attending Clinician Doctor Unassigned, Name Attending Clinician Unavailable Ty ASINI, K.H. Attending Clinician Problems Condition Condition Condition [...] 2014-09-07 Memoria SIS 09-07 10:20:15 l 00:00: [place] GASTROPARE 00 SIS Active 09/07/2014 Condition 5 [...] EMIA - 08-31 10:20:15 l MIXED 00:00: [place] HYPERLIPID 00 EMIA - MIXED Active 08/31/2013 [facility] PRE-OP CV Condition Active 2014-09-07 Memoria EXAM 08-31 10:20:15 l PRE-OP 00:00: [place] CV EXAM 00 Active 08/31/2013 [facility] RENAL Condition Active 2014-09-07 Mem oria FAILURE, 06-05 10:20:15 l CHRONIC RENAL 00:00: [place] FAILURE, 00 CHRONIC Active 06/05/2012 Condition [facility] ANEMIA IN Condition Active 2014-09-07 Memoria CHRONIC 06-05 10:20:15 l KIDNEY ANEMIA 00:00: [place] DISEASE IN CHRONIC 00 KIDNEY DISEASE Active 06/05/2012 [facility] DIAB W/O Condition Active 2014-09-07 M emoria COMP TYPE 06-02 10:20:15 l II/UNS NOT DIAB W/O 00:00: Kimani key STATED COMP TYPE 00 UNCNTRL II/UNS NOT STATED UNCNTRL Active 06/02/2012 Condition [facility] DIAB Condition Active 2014-09-07 Mem oria W/RENAL 06-02 10:20:15 l MANIFESTS DIAB 00:00: [place] TYPE W/RENAL 00 II/UNS NOT MANIFESTS UNCNTRL [...] 2011-032014-09-07 Memoria ON 05-12 10:20:15 l 00:00: [place] HYPERTENSI 00 ON Active 2 Condition 09/07/2014 [facility] Chronic Problem Active 2012-04-07 Mariano steven Kidney 21:40:14 l Disease, Chronic [place] nn Stage 4 Kidney Disease, Stage 4 Active 3 [facility] End Stage Problem Active 2012-04-07 Me moria Renal 21:40:14 l Disease End [place] Stage Renal Disease Active 3 [facility] [facility] History of Past Illness Condition Condition [...] Type Date Date Clinician Klaus Juarez Active [facility] ty to 09-12 [facility] - adverse 00:00: [facility] reaction 00 Center s Not Not Active Memoria Known Known l [place] No Known No Known Active Memori a Drug Drug l Allergie Allergie Simon lima Social History Social Habit Start Date Stop Date Quantity Comments Source Sex Assigned At [facility] Social History 2012-04-07 2012-04-07 [facility] lucy 21:40:14 21:40:14 Smoking Status Start Date Stop Date Source Never smoker [facility] Medications Ordered Filled Start Stop [...] 1-19 10-15units l SOLN 00:00: tid with [place] 00 meals sc ZITHROMAX No Take 2 [...] STRP 9-25 times a l 00:00: day. TUS Yes 18 units Memoria SOLOSTAR 9-21 at [...] steven 30 MG TABS 9-21 l 00:00: LISINOPRIL Yes 1 tablet Mem oria 30 MG TABS 9-21 orally l 00:00: twice a [place] week on Friday and Yes 18 units Memoria SOLOSTAR 9-21 at bedtime l 100 UNIT/ML 00:00: sc Simon n SOLN 00 LIPITOR 20 No 1 po qd Mariano steven MG TABS 9-21 l 00:00: Vital Signs Vital Name Observation Time Observation Value Comments Source Systolic (mm Hg) 2014-09-07 15:20:15 Mariano rial [place] Diastolic (mm Hg) 2014-09-07 15:20:15 Mem orial [place] Heart Rate 2014-09-07 15:20:15 [facility] [place] Temperature Oral (F) 2014-09-07 15:20:15 98.3 F [facility] [place] Height 2014-09-07 15:20:15 [facility] [place] Weight 2014-09-07 15:20:15 [facility] [place] Respitory Rate 2014-09-07 15:20:15 Memori al [place] Weight 2013-09-08 14:22:12 [facility] [place] Temperature Oral (F) 2013-09-08 14:22:12 98.0 F [facility] [place] Heart Rate 2013-09-08 14:22:12 [facility] [place] Systolic (mm Hg) 2013-09-08 14:22:12 Mariano rial [place] Diastolic (mm Hg) 2013-09-08 14:22:12 Mem orial [place] Systolic (mm Hg) 2013-08-31 15:43:31 Mariano rial [place] Diastolic (mm Hg) 2013-08-31 15:43:31 Mem orial [place] Heart Rate 2013-08-31 15:43:31 [facility] [place] Weight 2013-08-31 15:43:31 [facility] [place] Weight 2012-06-02 15:36:10 [facility] [place] Height 2012-06-02 15:36:10 [facility] [place] Temperature Oral (F) 2012-06-02 15:36:10 98.4 F [facility] [place] Heart Rate 2012-06-02 15:36:10 [facility] [place] Systolic (mm Hg) 2012-06-02 15:36:10 Mariano rial [place] Diastolic (mm Hg) 2012-06-02 15:36:10 Mem orial [place] Procedures This patient has no known procedures. Encounters Start End Encounter Admission Attending Care Care Encounter Source Date/Time Date/Time Type Type Clinicians Facility Department ID 2018-06-22 Inpatient [facility] [id number] [facility] 07:53:49 2018-06-22 Outpatient [facility] [id number] [facility] 07:53:48 2020-05-16 2020-05-16 [facility] [id number] 00:00:00 00:00:00 Aguilar A MULTISPEC 350.1.13.10 IALTY 4.2.7.2.686 [place] [id number] [facility] 2020-05-16 2020-05-16 Telephone [facility] [id number] 00:00:00 00:00:00 Aguilar A MULTISPEC 350.1.13.10 IALTY 4.2.7.2.686 [place] [id number] [facility] 2020-05-15 2020-05-15 Telephone Perla [facility] [id number] 00:00:00 00:00:00 Izzy santana MULTISPEC 350.1.13.10 IALTY 4.2.7.2.686 [place] [id number] [facility] 2020-05-15 2020-05-15 Abstract Perla [facility] [id number] 00:00:00 00:00:00 Izzy santana MULTISPEC 350.1.13.10 IALTY 4.2.7.2.686 [place] [id number] [facility] 2020-05-12 2020-05-12 Abstract [facility] [id number] 00:00:00 00:00:00 Lauren Bobo MULTISPEC 350.1.13.10 IALTY 4.2.7.2.686 [place] [id number] [facility] 2020-05-12 2020-05-12 Committee [facility] 1.2.840.114 [id number] 00:00:00 00:00:00 Review Aguilar A MULTISPEC 350.1.13.10 IALTY 4.2.7.2.686 [place] [id number] [facility] 2020-04-18 2020-04-18 Orders Doctor WH[place]LOCK 1.2.840.114 [id number] 00:00:00 00:00:00 Only Unassigned, JACQUE 350.1.13.10 La Sal [facility] 4.2.7.2.686 [id number] 2020-02-28 2020-02-28 Office [facility] 1.2.840.114 [id number] 12:46:09 13:47:51 Visit Mariposa Crespo 350.1.13.10 Therese 4.2.7.2.686 Christin [id number] nal 059 [facility] 2012-04-07 2012-04-07 Outpatient 3 3 [id number] 15:40:31 15:40:14 2012-03-08 2012-03-08 Outpatient 3 3 [id number] 13:29:27 13:29:12 2012-02-04 2012-02-04 Outpatient 3 3 [id number] 11:20:09 11:19:53 2012-01-31 2012-01-31 Outpatient 3 3 [id number] 19:30:42 19:30:26 2012-01-31 2012-01-31 Outpatient 3 3 [id number] 16:34:08 16:33:53 2012-01-31 2012-01-31 Outpatient 3 3 [id number] 14:49:27 14:49:11 Results Test Description Test Time [...] code = BUN/CREAT) 9 1 6-25 [facility] QupeaqeKxvvfuwrr1231-22-16 14:45:[facility] 2012-10-23 14:45:009.0[facility] RdxjtqwBindnvxpr5401-00-50 14:45:0021[facility] SiuldnqVzcewzieu4586-36-65 14:45:009[facility] AefusegFmjslilhc5863-45-79 14:45:00 67[facility] MzmyxbeEkqwjoqfpv8745-23-94 14:45:0013.2[facility] 2012-10-23 14:45:0041.5[facility] RiekqohDfwupeigll1285-17-07 14:45:75720 K/CMM [facility] IbapcbzYxplkpzpd1175-77-15 21:12:004.6 MEQ/L[facility] 2012-06-04 21:12:007.4[facility] RhunrglXwibfuwlk6492-37-03 21:12:0053[facility] XqhpbqtGubfpxbib2342-40-45 21:12:00 Test Item Value Reference Range Interpretation Comments BUN/CREAT (test code = BUN/CREAT) 7 09-08 [facility] HqavmuaDqehqadtj7530-53-05 21:12:002.2[facility] 2012-06-04 21:12:007.2[facility] BcpufwjDquiwjmyn6482-93-27 21:12:0024[facility] PwcfluiQymmtqtxh7882-00-34 21:12:0027[facility] MtgsiezQhrmvnpws5011-86-98 21:12:0066[facility] MwjplsxIyxyxvrxqn2723-08-05 21:12:007.9[facility] [place] Lqlavtzgbl9977-14-01 21:12:0023.7[facility] EmwdqsaXphjlrsive1561-08-88 21:12:00 289 K/CMMMemorial TldiwzuDzdlvnxeop5953-03-41 21:12:007.9[facility] [place] Laadkwevug5916-72-97 21:12:0023.7[facility] NomrgohAdayckbuux2852-97-97 21:12:00 289 K/CMMMemorial OfqbwysWwzneprwb5060-69-89 21:12:005.1[facility] [place] Gdvgbbbcf4240-75-77 21:12:70944Dtllecsn NrdtjdlVpqxjcqwb1571-44-91 21:12:98819 [facility] JgwwwdlYiqddhnae8413-69-62 21:12:0037[facility] 2012-06-04 21:12:20300Dwixerva EfjmlfiPqrncdrns0850-05-37 21:12:61801 MEQ/L [facility] IpegwvvVjhxlqdmo3174-70-21 21:12:004.6 ME[facility]/L[facility] 2012-06-04 21:12:007.4[facility] HxqmygpWwgcbnexy0117-78-10 21:12:0053[facility] VrnmbdrRzlypqnav1025-73-44 21:12:00 Test Item Value Reference Range Interpretation Comments BUN/CREAT (test code = BUN/CREAT) 7 09-08 [facility] LvkjjuoOeabbhtbr3267-63-32 21:12:002.2[facility] 2012-06-04 21:12:007.2[facility] IabtlhyEnptspqyg9586-32-01 21:12:0024[facility] VcrwyxdEmyxcvbjw7837-14-84 21:12:0027[facility] ToddchcPywegtxkc7815-23-34 21:12:0066[facility] WeckkfbUaqdnqcyk2904-39-75 21:12:005.1[facility] [place] Jvmmlngvo0670-55-17 21:12:47441Xyfdmirc InwojbmMsdcebmcf3722-44-64 21:12:69337 [facility] EprubwjHyamrdlih6534-74-50 21:12:0037[facility] 2012-06-04 21:12:49097Ezxkfnca ErqlkggVirzudrkf0291-38-31 21:12:85266 MEQ/L [facility] QkbawoyNehiszncm0668-54-41 20:28:006.9[facility] 2011-11-12 20:28:001.420[facility] QopwfwkAgapkczss5558-39-06 20:28:07919Tfiwebcz NaswohmXoxnomtbv7976-68-83 20:28:84255Xqxvtmcd ObqzludFguiixkjq9936-54-21 20:28:0054[facility] TujraepTvursqzfl4143-72-29 20:28:40409Wepfplot [place] Zrgftzvhp5980-62-03 20:28:25989 MEQ/LMemorial KqkygdnFicpbfwvz4752-05-40 20:28:004.7 MEQ/LMemorial GegmzwoFwcagyuga2298-81-18 20:28:004.9[facility] [place] Uxzsfhake8278-79-36 20:28:0063[facility] UyqhprmLosfnjuxh0599-39-31 20:28:00 Test Item Value Reference Range Interpretation Comments BUN/CREAT (test code = BUN/CREAT) 13 09-08 [facility] OgqsgcwYlzqcdsjr5767-25-24 20:28:001.8[facility] 2011-11-12 20:28:007.6[facility] AcbealbVplpakpet5316-55-73 20:28:0017[facility] RjpacwdErvqdyyhq4412-76-44 20:28:0014[facility] VbdsoasUeomcxxcf7836-49-78 20:28:0068[facility] [place]
[2020-09-03 15:56] LABS: Absolute Lymphocytes (CBC) 0.9 K/uL (0.7-4.9); Basophils % 0.5 % (0-1.3); Hematocrit 33.9 % (39.6-49.0); Lymphocytes % 13.9 % (15.3-44.8); MPV 7.9 fL (7.6-11.3); RBC Red Blood Cell Count 3.78 M/uL (4.33-5.43)
[2020-09-03] MEDS ORDERED: ONDANSETRON 4 MG/2 ML VIAL ONE (16:12)
[2020-09-03] MEDS ORDERED: NA CHLORIDE 0.9% 500 ML ONE (16:12)
[2020-09-03 16:18] LABS: Albumin 3.7 g/dL (3.4-5.0); Bilirubin Direct 0.2 mg/dL (0-0.2); Bilirubin Total 0.7 mg/dL (0.2-1.0); Potassium 5.2 mmol/L (3.5-5.1); Protein, Total 8.4 g/dL (6.4-8.2)
[2020-09-03] MEDS ORDERED: PROMETHAZINE INJ 25 MG/ML AMP ONE (17:05)
[2020-09-03] MEDS ORDERED: HYDRALAZINE HCL 20 MG/ML VIAL ONE (18:25)
[2020-09-03] MEDS ORDERED: METOPROLOL TARTRATE 5 MG/5 ML INJ IV ONE (19:27)
[2020-09-03] MEDS ORDERED: DIAZEPAM 5 MG TABLET ONE (20:18)
[2020-09-03] MEDS ORDERED: cloNIDine HCL 0.1 MG TAB ONE (21:16)
--- NOTE | 2020-09-03 21:35 | EDPHYS ---
Physician Documentation [facility] Name: Chase Chacon Jr Age: 45 yrs Sex: Male : 1975 Arrival Date: 09/03/2020 Time: 14:50 Bed 17 Private MD: ED Physician Yue Cortes HPI: 09/03 15:42 This 45 yrs old Male presents to ER via Ambulatory with complaints of Vomiting.ma2 15:42 The patient presents to the emergency department with nausea, vomiting. Onset: The ma2 symptoms/episode began/occurred gradually, 2 day(s) ago. Associated signs and symptoms: Pertinent negatives: belching, diarrhea, fever. Severity of symptoms: At their worst the symptoms were mild in the emergency department the symptoms are unchanged. The patient has not experienced similar symptoms in the past. Historical: - Allergies: 14:55 Phenergan; jd3 - Home Meds: 14:55 alprazolam 0.5 mg Oral Tb24 1 tab once daily [Active]; calcium acetate 667 mg Oral cap jd3 3 caps 3 times per day [Active]; nifedipine 90 mg Oral tr24 twice a day [Active]; Novolog Sub-Q 10 10 UNITS AM, 15 UNITS LUNCH AND 10 UNITS AT NIGHT [Active]; ramipril 10 mg Oral cap at bedtime [Active]; ropinirole 1 mg Oral tab at bedtime as needed for Restless Legs Syndrome [Active]; ropinirole 1 mg Oral tab nightly [Active]; tizanidine 2 mg Oral tab twice a day [Active]; trazodone 100 mg Oral tab nightly [Active]; - PMHx: 14:55 Gastroparesis; Hypertension; kidney disease; Dialysis; M/W/F; Diabetes - NIDDM; ESRD; jd3 Cataracts; - PSHx: 14:55 dialysis ports; jd3 - Immunization history:: Adult Immunizations up to date. - Social history:: Smoking status: Patient denies any tobacco usage or history of. ROS: 15:42 Constitutional: Negative for fever, chills, and weight loss. ma2 15:42 All other systems are negative. Exam: 15:42 Constitutional: This is a well developed, well nourished patient who is awake, alert, ma2 and in no acute distress. Chest/axilla: Normal chest wall appearance and motion. Nontender with no deformity. No lesions are appreciated. Cardiovascular: Regular rate and rhythm with a normal S1 and S2. No gallops, murmurs, or rubs. Normal PMI, no JVD. No pulse deficits. Respiratory: Lungs have equal breath sounds bilaterally, clear to auscultation and percussion. No rales, rhonchi or wheezes noted. No increased work of breathing, no retractions or nasal flaring. Abdomen/GI: Soft, non-tender, with normal bowel sounds. No distension or tympany. No guarding or rebound. No evidence of tenderness throughout. MS/ Extremity: Pulses equal, no cyanosis. Neurovascular intact. Full, normal range of motion. Neuro: Awake and alert, GCS 15, oriented to person, place, time, and situation. Cranial nerves II-XII grossly intact. Motor strength 5/5 in all extremities. Sensory grossly intact. Cerebellar exam normal. Normal gait. Vital Signs: 14:55 BP 215 / 122; Pulse 90; Resp 17 S; Temp 97.4(TE); Pulse Ox 95% on R/A; Weight 90.72 kg jd3 (R); Height 5 ft. 6 in. (167.64 cm) (R); Pain 8/10; 16:00 BP 211 / 102; Pulse 75; Resp 16; Pulse Ox 91% on R/A; zb 18:00 BP 220 / 100; Pulse 81; Resp 18; Pulse Ox 92% on R/A; zb 18:06 BP 209 / 97; Pulse 87; Resp 18; Pulse Ox 95% on R/A; zb 19:28 BP 222 / 98; Pulse 70; Resp 16; Pulse Ox 93% on R/A; zb 20:10 BP 203 / 104; Pulse 74; Resp 18; Pulse Ox 94% on R/A; zb 21:26 BP 202 / 103; Pulse 68; Resp 18; Pulse Ox 95% on R/A; zb 21:59 BP 195 / 106; Pulse 81; Resp 18; Pulse Ox 94% ; zb 14:55 Body Mass Index 32.28 (90.72 kg, 167.64 cm) jd3 MDM: 15:31 Patient medically screened. ma2 15:42 Differential diagnosis: Nonspecific abd pain, gastritis, pancreatitis, viral ma2 gastroenteritis, gastroenteritis. Data reviewed: vital signs, nurses notes. Counseling: I had a detailed discussion with the patient and/or guardian regarding: the historical points, exam findings, and any diagnostic results supporting the discharge/admit diagnosis, the presence of at least one elevated blood pressure reading (>120/80) during this emergency department visit, the need for outpatient follow up. 21:32 ED course: Blood pressure with slight improvement with medications given in the ER. pm1 Patient's prior ER visit with blood pressures ranging from 175/87 to 204/98. Patient is at his baseline hypertension. Will discharge the patient to follow up with his PCP for further hypertension management. 09/03 15:42 Order name: Basic Metabolic Panel; Complete Time: 17:49 ma2 09/03 15:42 Order name: CBC with Diff; Complete Time: 17:49 ma2 09/03 15:42 Order name: Hepatic Function; Complete Time: 17:49 ma2 09/03 15:42 Order name: Lipase; Complete Time: 17:49 ma2 09/03 15:42 Order name: IV Saline Lock; Complete Time: 15:49 ma2 09/03 15:42 Order name: Labs collected and sent; Complete Time: 15:49 ma2 Administered Medications: 15:57 Drug: NS 0.9% 500 ml Volume: 500 ml; Route: IV; Rate: 1 bolus; Site: right forearm; zb 16:38 Follow up: Response: No adverse reaction; Marked relief of symptoms; IV Status: zb Completed infusion; IV Intake: 1000ml 15:57 Drug: Zofran (Ondansetron) 4 mg Route: IVP; Site: right forearm; zb 16:46 Follow up: Response: No change in condition; Nausea unchanged zb 16:59 Drug: Phenergan (promethazine) 25 mg {Note: Given 25 per nursing discetion, okay with zb ECP .} Route: IVP; Site: right forearm; 18:06 Follow up: Response: No adverse reaction; Marked relief of symptoms; Nausea is decreasedzb 18:06 Drug: hydrALAZINE 10 mg Route: IVP; Site: right forearm; zb 18:54 Follow up: Response: No adverse reaction; Blood pressure is unchanged zb 19:09 Drug: Metoprolol 5 mg Route: IVP; Site: right forearm; zb 19:28 Follow up: Response: No adverse reaction; Blood pressure is unchanged zb 20:00 Drug: Valium (diazepam) 5 mg Route: PO; zb 20:42 Follow up: Response: No adverse reaction zb 20:50 Drug: cloNIDine 0.2 mg Route: PO; zb 21:58 Follow up: Response: No adverse reaction; Marked relief of symptoms zb Disposition: 09/03/20 21:34 Discharged to Home. Impression: Gastroparesis. - Condition is Stable. - Discharge Instructions: Gastroparesis. - Prescriptions for promethazine 25 mg Oral Tablet - take 1 tablet by ORAL route every 6 hours As needed; 20 tablet. - Medication Reconciliation Form, Thank You Letter, Antibiotic Education, Prescription Opioid Use form. - Follow up: Private Physician; When: Tomorrow; Reason: If symptoms return, Continuance of care. - Problem is new. - Symptoms have improved. Signatures: Dispatcher [employer] Refugio Bobby NP PATIENT PARTNER pm1 Bart Saha RN RN jd3 Yue Cortes MD MD ma2 Erika Mosley RN RN zb Corrections: (The following items were deleted from the chart) 21:59 21:34 09/03/2020 21:34 Discharged to Home. Impression: Gastroparesis. Condition is zb Stable. Discharge Instructions: Gastroparesis. Prescriptions for promethazine 25 mg Oral Tablet - take 1 tablet by ORAL route every 6 hours As needed; 20 tablet. and Forms are Medication Reconciliation Form, Thank You Letter, Antibiotic Education, Prescription Opioid Use. Follow up: Private Physician; When: Tomorrow; Reason: If symptoms return, Continuance of care. Problem is new. Symptoms have improved. pm1
--- NOTE | 2020-09-03 21:35 | ER ---
Nurse's Notes [facility] Name: Chase Chacon Jr Age: 45 yrs Sex: Male : 1975 Arrival Date: 09/03/2020 Time: 14:50 Bed 17 [facility] MD: Diagnosis: Gastroparesis Presentation: 09/03 14:53 Chief complaint: Patient states: "I am having vomiting for 2 days now.". Coronavirus jd3 screen: At this time, the client does not indicate any symptoms associated with coronavirus-19. Ebola Screen: Patient negative for fever greater than or equal to 101.5 degrees Fahrenheit, and additional compatible Ebola Virus Disease symptoms. Initial Sepsis Screen: Does the patient meet any 2 criteria? No. Patient's initial sepsis screen is negative. Does the patient have a suspected source of infection? No. Patient's initial sepsis screen is negative. Risk Assessment: Do you want to hurt yourself or someone else? Patient reports no desire to harm self or others. Onset of symptoms was September 01, 2020. 14:53 Method Of Arrival: Ambulatory jd3 14:53 Acuity: LEON 2 jd3 Triage Assessment: 16:33 General: Behavior is calm. zb Historical: - Allergies: 14:55 Phenergan; jd3 - Home Meds: 14:55 alprazolam 0.5 mg Oral Tb24 1 tab once daily [Active]; calcium acetate 667 mg Oral cap jd3 3 caps 3 times per day [Active]; nifedipine 90 mg Oral tr24 twice a day [Active]; Novolog Sub-Q 10 10 UNITS AM, 15 UNITS LUNCH AND 10 UNITS AT NIGHT [Active]; ramipril 10 mg Oral cap at bedtime [Active]; ropinirole 1 mg Oral tab at bedtime as needed for Restless Legs Syndrome [Active]; ropinirole 1 mg Oral tab nightly [Active]; tizanidine 2 mg Oral tab twice a day [Active]; trazodone 100 mg Oral tab nightly [Active]; - PMHx: 14:55 Gastroparesis; Hypertension; kidney disease; Dialysis; M/W/F; Diabetes - NIDDM; ESRD; jd3 Cataracts; - PSHx: 14:55 dialysis ports; jd3 - Immunization history:: Adult Immunizations up to date. - Social history:: Smoking status: Patient denies any tobacco usage or history of. Screenin:00 Abuse screen: Denies threats or abuse. Denies injuries from another. Nutritional zb screening: No deficits noted. Tuberculosis screening: No symptoms or risk factors identified. Fall Risk None identified. Assessment: 15:00 General: Appears in no apparent distress. Pain: Denies pain. Neuro: Level of zb Consciousness is awake, alert, obeys commands, Oriented to person, place, time, situation. Cardiovascular: Heart tones S1 S2 present Capillary refill < 3 seconds Patient's skin is warm and dry. Respiratory: Airway is patent Respiratory effort is even, unlabored, Respiratory pattern is regular, symmetrical. GI: Abdomen is round Bowel sounds present X 4 quads. Abd is soft and non tender X 4 quads. Reports diarrhea, nausea, vomiting. Derm: Skin is intact, is healthy with good turgor, Skin is dry, Skin is normal, Skin temperature is warm. Musculoskeletal: Range of motion: intact in all extremities. 16:00 Reassessment: Patient appears in no apparent distress at this time. Patient and/or zb family updated on plan of care and expected duration. Pain level reassessed. Patient is alert, oriented x 3, equal unlabored respirations, skin warm/dry/pink. 16:32 Reassessment: Patient appears in no apparent distress at this time. Patient and/or zb family updated on plan of care and expected duration. Pain level reassessed. Patient is alert, oriented x 3, equal unlabored respirations, skin warm/dry/pink. 16:39 Reassessment: pt states that zofran isn't working. nausea remains the same. notified zb ECP. 18:07 Reassessment: notified ecp of blood pressure. medication ordered. zb 19:29 Reassessment: Patient appears in no apparent distress at this time. Patient and/or zb family updated on plan of care and expected duration. Pain level reassessed. Patient is alert, oriented x 3, equal unlabored respirations, skin warm/dry/pink. nausea absent. blood pressure remains high. notified ecp. 20:10 Reassessment: Patient appears in no apparent distress at this time. No changes from zb previously documented assessment. Patient and/or family updated on plan of care and expected duration. Pain level reassessed. Patient is alert, oriented x 3, equal unlabored respirations, skin warm/dry/pink. 21:26 Reassessment: Patient appears in no apparent distress at this time. Patient and/or zb family updated on plan of care and expected duration. Pain level reassessed. Patient is alert, oriented x 3, equal unlabored respirations, skin warm/dry/pink. pt resting at bedside. remains asymptomatic. blood pressure remains high. notified ECP. Vital Signs: 14:55 BP 215 / 122; Pulse 90; Resp 17 S; Temp 97.4(TE); Pulse Ox 95% on R/A; Weight 90.72 kg jd3 (R); Height 5 ft. 6 in. (167.64 cm) (R); Pain 8/10; 16:00 BP 211 / 102; Pulse 75; Resp 16; Pulse Ox 91% on R/A; zb 18:00 BP 220 / 100; Pulse 81; Resp 18; Pulse Ox 92% on R/A; zb 18:06 BP 209 / 97; Pulse 87; Resp 18; Pulse Ox 95% on R/A; zb 19:28 BP 222 / 98; Pulse 70; Resp 16; Pulse Ox 93% on R/A; zb 20:10 BP 203 / 104; Pulse 74; Resp 18; Pulse Ox 94% on R/A; zb 21:26 BP 202 / 103; Pulse 68; Resp 18; Pulse Ox 95% on R/A; zb 21:59 BP 195 / 106; Pulse 81; Resp 18; Pulse Ox 94% ; zb 14:55 Body Mass Index 32.28 (90.72 kg, 167.64 cm) jd3 ED Course: 14:50 Patient arrived in ED. ds1 14:53 Triage completed. jd3 14:56 Arm band placed on. jd3 15:10 Inserted saline lock: 20 gauge in right forearm, using aseptic technique. Blood zb collected. 15:26 Erika Mosley RN is Primary Nurse. zb 15:31 Yue Cortes MD is Attending Physician. ma2 16:33 Patient has correct armband on for positive identification. bus driver/monitor on. Pulse zb ox on. NIBP on. Door closed. Noise minimized. 18:59 Refugio Bobby NP is PHCP. pm1 21:59 No provider procedures requiring assistance completed. IV discontinued, intact, zb bleeding controlled, No redness/swelling at site. Pressure dressing applied. Administered Medications: 15:57 Drug: NS 0.9% 500 ml Volume: 500 ml; Route: IV; Rate: 1 bolus; Site: right forearm; zb 16:38 Follow up: Response: No adverse reaction; Marked relief of symptoms; IV Status: zb Completed infusion; IV Intake: 1000ml 15:57 Drug: Zofran (Ondansetron) 4 mg Route: IVP; Site: right forearm; zb 16:46 Follow up: Response: No change in condition; Nausea unchanged zb 16:59 Drug: Phenergan (promethazine) 25 mg {Note: Given 25 per nursing discetion, okay with zb ECP .} Route: IVP; Site: right forearm; 18:06 Follow up: Response: No adverse reaction; Marked relief of symptoms; Nausea is decreasedzb 18:06 Drug: hydrALAZINE 10 mg Route: IVP; Site: right forearm; zb 18:54 Follow up: Response: No adverse reaction; Blood pressure is unchanged zb 19:09 Drug: Metoprolol 5 mg Route: IVP; Site: right forearm; zb 19:28 Follow up: Response: No adverse reaction; Blood pressure is unchanged zb 20:00 Drug: Valium (diazepam) 5 mg Route: PO; zb 20:42 Follow up: Response: No adverse reaction zb 20:50 Drug: cloNIDine 0.2 mg Route: PO; zb 21:58 Follow up: Response: No adverse reaction; Marked relief of symptoms zb Intake: 16:38 IV: 1000ml; Total: 1000ml. zb Outcome: 21:34 Discharge ordered by . pm1 21:59 Discharged to home ambulatory. zb 21:59 Condition: stable 21:59 Discharge instructions given to patient, Instructed on discharge instructions, follow up and referral plans. medication usage, Demonstrated understanding of instructions, follow-up care, medications, Prescriptions given X 1. 21:59 Patient left the ED. zb Signatures: Blanca Jackson ds1 Refugio Bobby NP RESIDENTIAL PEST CONTROL TECHNICIAN pm1 Bart Saha RN RN jd3 Yue Cortes MD MD ma2 Brown, Erika, RN RN zb
[2020-09-03 22:30] VITALS: TEMP 97.4
[2020-09-03 22:44] VITALS: BP 195/106; O2SAT 94
== END 2020-09-03 21:59 | disposition home or self-care (01) ==
LOC: ER 14:47
DX: K31.84 Gastroparesis (principal); E11.22 Type 2 diabetes mellitus with diabetic chronic kidney disease; I12.0 Hypertensive chronic kidney disease with stage 5 chronic kidney disease or end stage renal disease; N18.6 End stage renal disease; Z99.2 Dependence on renal dialysis; Z79.4 Long term (current) use of insulin; Z88.8 Allergy status to other drugs, medicaments and biological substances
CPT/HCPCS: 85025; 80048; 36415; 80076; 83690; J0360; J2550; J7040; J2405; 96361; 96374; 96375; 99284

== ENCOUNTER 2020-12-17 17:52 | Emergency (ER) | payer OTHER ==
[2020-12-17 19:27] LABS: Absolute Lymphocytes (CBC) 0.7 K/uL (0.7-4.9); Basophils % 0.6 % (0-1.3); Hematocrit 31.3 % (39.6-49.0); Lymphocytes % 11.4 % (15.3-44.8); MPV 7.8 fL (7.6-11.3); RBC Red Blood Cell Count 3.49 M/uL (4.33-5.43)
[2020-12-17 19:41] LABS: Protime INR 1.08
[2020-12-17 20:06] LABS: Albumin 3.5 g/dL (3.4-5.0); Bilirubin Direct 0.3 mg/dL (0-0.2); Bilirubin Total 0.8 mg/dL (0.2-1.0); Magnesium 2.5 mg/dL (1.8-2.4); Potassium 4.8 mmol/L (3.5-5.1); Troponin (Emerg Dept Use Only) 0.02 ng/mL (0.0-0.045)
--- NOTE | 2020-12-17 20:18 | RAD REPORT ---
EXAM DESCRIPTION: [facility] Protocol - 12/17/2020 7:55 pm CLINICAL HISTORY: . Flank pain;Hematuria COMPARISON: Abdomen Pelvis Wo Contrast dated 06/09/2020; Abdomen Pelvis Wo Contrast dated 04/14/19 21; Abdomen Pelvis Wo Contrast dated 03/24/2019; Abdomen Pelvis W Contrast dated 12/31/2018 TECHNIQUE: Biphasic CT imaging of the abdomen and pelvis was performed with 100 ml non-ionic IV cont rast. All CT scans are performed using dose optimization technique as appropriate and may include automated exposure control or mA/KV adjustment according to patient size. FINDINGS: Lower chest: Cardiomegaly. Mitral annular calcifications. Coronary artery calcifications. Mild circumferential thickened distal esophagus. Mild interlobular septal thickening in lung bases . Liver: No acute abnormality or suspicious lesions. Biliary: Gallbladder wall thickening noted. Stomach: No significant focal abnormality. Duodenum: No significant focal abnormality. Pancreas: No significant abnormality. Spleen: No significant abnormality. Adrenal: No suspicious lesions. Kidney/ureter: No hydronephrosis. No renal calculi. Numerous bilateral renal lesions which are incomp letely characterize without contrast and/or too small to characterize. Statistically these are benign . Retroperitoneum: No retroperitoneal adenopathy. Vascular: Severe atherosclerosis. Bowel: No significant focal abnormality. Diverticulosis. Normal appendix . Peritoneum: Small volume of ascites. Small fat and fluid containing umbilical hernia. Bladder: The bladder wall appears thickened though under distended. Reproductive: No adnexal masses. Bones: No acute fracture. Multiple Schmorl's nodes. Remote left-sided rib fractures . Other: n/a IMPRESSION: No acute intra-abdominal or pelvic finding. Specifically, no hydronephrosis or ureteral calculi. Anasarca. Gallbladder wall thickening which is nonspecific and may be related underlying flu id status/liver disease.
[2020-12-17 20:24] LABS: Platelet Estimate ADEQ; White Blood Cell Scan OK (OK)
[2020-12-17 20:26] LABS: Blood Morphology Comment NOT SEEN (NOT SEEN)
--- NOTE | 2020-12-17 20:32 | RAD REPORT ---
EXAM DESCRIPTION: RAD - Chest Single View - 12/17/2020 7:33 pm CLINICAL HISTORY: blood in stool, dialysis pt COMPARISON: Chest Single View dated 03/29/2020; Chest Single View dated 09/29/2019; Chest Single View dated 01/22/2019; Chest Pa And Lat (2 Views) dated 08/04/2018 FINDINGS: Lines: None. Lungs: Mild diffuse prominence of the pulmonary interstitium. Pleural: No significant pleural effusions or pneumothorax. Cardiac: Cardiomegaly . Bones: No acute fractures. Other: IMPRESSION: Mild edema suspected. No consolidative airspace disease.
[2020-12-17 21:25] LABS: Arterial Blood Carboxyhemoglob 2.1 % (0-1.5); Blood Gas Oxyhemoglobin 92.3 % (94-97); Blood O2 Saturation 95.2 % (92-98.5)
[2020-12-17 22:25] LABS: Urine Amorphous Sediment 2+ /HPF (NONE SEEN); Urine Bacteria >50 /HPF (NONE SEEN); Urine Mucus 2+ /HPF (NONE SEEN); Urine RBC TNTC /HPF (NONE SEEN)
[2020-12-17] MEDS ORDERED: INSULIN -REGULAR HUMAN 50 UNIT/0.5 ML ML ONE (22:32)
--- NOTE | 2020-12-17 23:26 | EDPHYS ---
Physician Documentation [facility] Name: Chase Chacon Jr Age: 45 yrs Sex: Male : 1975 Arrival Date: 12/17/2020 Time: 17:59 Bed 30 Private MD: ED Physician Nader Aponte HPI: 12/17 19:05 This 45 yrs old Male presents to ER via Ambulatory with complaints of mh7 transfusion. 19:05 The patient presents with flank pain, described as intermittent, sharp, waxing/waning, mh7 of the left flank, that does not radiate, urinary symptoms, Blood in urine. 19:05 Onset: The symptoms/episode began/occurred today. Modifying factors: The symptoms are mh7 alleviated by nothing, the symptoms are aggravated by nothing. Associated signs and symptoms: Pertinent positives: dysuria, hematuria, Pertinent negatives: abdominal pain, constipation, diarrhea, fever, nausea, vomiting. Severity of symptoms: At their worst the symptoms were moderate, earlier today, in the emergency department the symptoms have resolved, and did so just prior to arrival. Patient states that he had blood in his urine today for 3 episodes. He initially was not sure if it was blood in his stool but actually saw blood in his urine. He only makes a small amount of urine. He reports having left flank area pain that started 1 week ago and was intermittent and resolved 3 days ago. He denies any fever, chest pain, abdominal pain, shortness of breath, nausea, vomiting, diarrhea, dizziness, numbness/tingling, or weakness.. Historical: - Immunization history:: Adult Immunizations up to date. - Social history:: Smoking status: Patient denies any tobacco usage or history of. ROS: 19:05 Constitutional: Negative for fever, chills, and weight loss, Eyes: Negative for injury, mh7 pain, redness, and discharge, ENT: Negative for injury, pain, and discharge, Neck: Negative for injury, pain, and swelling, Cardiovascular: Negative for chest pain, palpitations, and edema, Respiratory: Negative for shortness of breath, cough, wheezing, and pleuritic chest pain, Abdomen/GI: Negative for abdominal pain, nausea, vomiting, diarrhea, and constipation, MS/Extremity: Negative for injury and deformity, Skin: Negative for injury, rash, and discoloration, Neuro: Negative for headache, weakness, numbness, tingling, and seizure, Psych: Negative for depression, anxiety, suicide ideation, homicidal ideation, and hallucinations, Allergy/Immunology: Negative for hives, rash, and allergies, Endocrine: Negative for neck swelling, polydipsia, polyuria, polyphagia, and marked weight changes, Hematologic/Lymphatic: Negative for swollen nodes, abnormal bleeding, and unusual bruising. Exam: 19:05 Constitutional: This is a well developed, well nourished patient who is awake, alert, mh7 and in no acute distress. Head/Face: Normocephalic, atraumatic. Eyes: Pupils equal round and reactive to light, extra-ocular motions intact. Lids and lashes normal. Conjunctiva and sclera are non-icteric and not injected. Cornea within normal limits. Periorbital areas with no swelling, redness, or edema. Neck: Trachea midline, no thyromegaly or masses palpated, and no cervical lymphadenopathy. Supple, full range of motion without nuchal rigidity, or vertebral point tenderness. No Meningismus. Chest/axilla: Normal chest wall appearance and motion. Nontender with no deformity. No lesions are appreciated. Cardiovascular: Regular rate and rhythm with a normal S1 and S2. No gallops, murmurs, or rubs. Normal PMI, no JVD. No pulse deficits. Respiratory: Lungs have equal breath sounds bilaterally, clear to auscultation and percussion. No rales, rhonchi or wheezes noted. No increased work of breathing, no retractions or nasal flaring. Abdomen/GI: Soft, non-tender, with normal bowel sounds. No distension or tympany. No guarding or rebound. No evidence of tenderness throughout. Back: No spinal tenderness. No costovertebral tenderness. Full range of motion. Skin: Warm, dry with normal turgor. Normal color with no rashes, no lesions, and no evidence of cellulitis. MS/ Extremity: Pulses equal, no cyanosis. Neurovascular intact. Full, normal range of motion. Neuro: Awake and alert, GCS 15, oriented to person, place, time, and situation. Cranial nerves II-XII grossly intact. Motor strength 5/5 in all extremities. Sensory grossly intact. Cerebellar exam normal. Normal gait. Psych: Awake, alert, with orientation to person, place and time. Behavior, mood, and affect are within normal limits. 19:05 Abdomen/GI: Rectal exam: is unremarkable, Prostate: normal, rectal tone normal, Stool: mh7 brown, guaiac negative, hemorrhoid(s), are not appreciated, mass, is not appreciated, swelling, is not appreciated, tenderness, is not appreciated, fecal impaction, is not appreciated, the exam is chaperoned by the nurse. Vital Signs: 18:02 BP 220 / 106; Pulse 85; Resp 20; Temp 98.7(TE); Pulse Ox 97% ; Weight 90.72 kg; Height ch5 5 ft. 6 in. (167.64 cm); Pain 0/10; 19:30 BP 208 / 105; Pulse 77; Resp 20; Temp 98.5(O); Pulse Ox 97% on R/A; cc4 20:00 BP 209 / 108; Pulse 82; Resp 20; Pulse Ox 97% on R/A; cc4 20:30 BP 199 / 105; Pulse 77; Resp 18; Pulse Ox 97% on R/A; cc4 21:00 BP 197 / 97; Pulse 76; Resp 18; Pulse Ox 96% on R/A; cc4 21:46 BP 199 / 102; Pulse 75; Resp 22; Pulse Ox 97% on R/A; cc4 22:00 BP 190 / 100; Pulse 73; Resp 20; Pulse Ox 97% on R/A; cc4 22:30 BP 200 / 102; Pulse 76; Resp 18; Pulse Ox 98% on R/A; cc4 23:00 BP 176 / 93; Pulse 72; Resp 18; Pulse Ox 97% on R/A; cc4 23:38 BP 189 / 97; Pulse 74; Resp 20; Temp 98.5; Pulse Ox 97% on R/A; cc4 12/18 00:10 BP 162 / 88; Pulse 75; Resp 20; Temp 98.5(O); Pulse Ox 97% on R/A; cc4 12/17 18:02 Body Mass Index 32.28 (90.72 kg, 167.64 cm) 5 MDM: 12/17 23:24 Differential diagnosis: UTI, urethritis, Ureterolithiasis, hematuria. Data reviewed: [facility] vital signs, nurses notes, lab test result(s), cardiac enzymes, CBC, electrolytes, urinalysis, EKG, radiologic studies, CT scan, plain films. Data interpreted: Pulse oximetry: on room air is 97 %. Interpretation: normal. Counseling: I had a detailed discussion with the patient and/or guardian regarding: the historical points, exam findings, and any diagnostic results supporting the discharge/admit diagnosis, the presence of at least one elevated blood pressure reading (>120/80) during this emergency department visit, lab results, radiology results, to return to the emergency department if symptoms worsen or persist or if there are any questions or concerns that arise at home. Response to treatment: the patient's symptoms have markedly improved after treatment. 23:26 Patient medically screened. [facility] 12/17 18:55 Order name: Basic Metabolic Panel; Complete Time: 20:27 12/17 18:55 Order name: CBC with Diff; Complete Time: 20:27 12/17 18:55 Order name: LFT's; Complete Time: 20:27 12/17 18:55 Order name: Magnesium; Complete Time: 20:27 12/17 18:55 Order name: NT PRO-BNP; Complete Time: 20:27 12/17 18:55 Order name: PT-INR; Complete Time: 20:09 12/17 18:55 Order name: Troponin (emerg Dept Use Only); Complete Time: 20:27 12/17 20:12 Order name: Type And Screen [facility] 12/17 20:13 Order name: Type and Screen [facility] 12/17 20:24 Order name: CBC Smear Scan; Complete Time: 20:27 [facility] 12/17 20:25 Order name: Ketone, Serum; Complete Time: 23:03 [facility] 12/17 20:25 Order name: Arterial Blood Gas; Complete Time: 21:28 [facility] 12/17 22:02 Order name: Urine Microscopic Only [facility] 12/17 22:03 Order name: Urine Microscopic Only; Complete Time: 22:32 [facility] 12/17 18:55 Order name: XRAY Chest (1 view); Complete Time: 20:38 12/17 18:55 Order name: EKG; Complete Time: 18:56 12/17 18:55 Order name: Cardiac monitoring; Complete Time: 20:33 12/17 18:55 Order name: EKG - Nurse/Tech; Complete Time: 20:33 12/17 18:55 Order name: IV Saline Lock; Complete Time: 19:05 iw 12/17 18:55 Order name: Labs collected and sent; Complete Time: 20:33 iw 12/17 18:55 Order name: O2 Per Protocol; Complete Time: 20:33 iw 12/17 18:55 Order name: O2 Sat Monitoring; Complete Time: 23:44 iw 12/17 19:20 Order name: CT Stone Protocol; Complete Time: 20:23 mh7 12/17 22:25 Order name: Urine Culture EDMS 12/17 23:25 Order name: Glucose, Ancillary Testing EDMS 12/18 00:32 Order name: Glucose, Ancillary Testing EDMS Administered Medications: 22:10 Drug: Insulin Regular Human 5 units {Co-Signature: lh3 (Marsha Avilez RN).} Route: cc4 IVP; Site: right forearm; 12/18 00:10 Follow up: Response: Blood sugar is lowered 4 12/17 23:20 Drug: Rocephin (cefTRIAXone) 1 grams Route: IV; Rate: per protocol; Site: right forearm;4 12/18 00:10 Follow up: Response: No adverse reaction 4 12/17 23:20 Drug: hydrALAZINE 10 mg Route: IVP; Site: right forearm; 4 12/18 00:10 Follow up: Response: No adverse reaction; Blood pressure is lowered cc4 Disposition Summary: 12/17/20 23:26 Discharge Ordered Location: Home 7 Problem: new 7 Symptoms: have improved 7 Condition: Stable 7 Diagnosis - UTI/ Urinary tract infection, site not specified mh7 - Hematuria, unspecified mh7 - Other specified diabetes mellitus with hyperglycemia mh7 - Essential (primary) hypertension 7 Followup: 7 - With: Private Physician - When: 1 - 2 days - Reason: Worsening of condition, Recheck today's complaints, Continuance of care, Re-evaluation by your physician Followup: 7 - With: Norman Worley MD - When: 1 - 2 days - Reason: Worsening of condition, Recheck today's complaints Discharge Instructions: - Discharge Summary Sheet 7 - Hyperglycemia mh7 - Urinary Tract Infection, Adult, [id number] mh7 - Hypertension, Adult 7 Forms: - Medication Reconciliation Form 7 - Thank You Letter 7 - Antibiotic Education mh7 - Prescription Opioid Use mh7 Prescriptions: - Cephalexin 500 mg Oral Capsule - take 1 capsule by ORAL route every 24 hours for 7 days; 7 capsule; Refills: 0, mh7 Product Selection Permitted Signatures: Dispatcher [employer] Keiry Gu, RN RN iw Karthik Bruner, CUSTOMER ENGINEER-C CUSTOMER ENGINEER-Cla1 Nader Aponte MD MD 7 Star Velasco RN RN ch5 Estela Lynne RN RN cc4 Marsha Avilez RN 3 Corrections: (The following items were deleted from the chart) 12/17 18:08 18:08 PMHx: ESRD; ch5 ch5 18:08 18:08 PMHx: Diabetes - NIDDM; ch5 ch5 18:08 18:08 PMHx: Hypertension; ch5 ch5 18:08 18:08 PMHx: Gastroparesis; ch5 ch5 18:08 18:08 PMHx: kidney disease; ch5 ch5 18:08 18:08 PMHx: Dialysis; M/W/F; ch5 ch5 18:08 18:08 PMHx: Cataracts; ch5 ch5
--- NOTE | 2020-12-17 23:26 | ER ---
Nurse's Notes [facility] Name: Chase Chacon Jr Age: 45 yrs Sex: Male : 1975 Arrival Date: 12/17/2020 Time: 17:59 Bed 30 Private MD: Diagnosis: UTI/ Urinary tract infection, site not specified;Hematuria, unspecified;Other specified diabetes mellitus with hyperglycemia;Essential (primary) hypertension Presentation: 12/17 18:02 Chief complaint: Patient states: This AM pt thought he saw blood in stool. He waited to [facility] check again. Pt on dialysis, produces little urine, but today was blood in urine. Coronavirus screen: Vaccine status: Patient reports being unvaccinated. Ebola Screen: Patient negative for fever greater than or equal to 101.5 degrees Fahrenheit, and additional compatible Ebola Virus Disease symptoms Patient denies exposure to infectious person. Patient denies travel to an Ebola-affected area in the 21 days before illness onset. Initial Sepsis Screen: Does the patient meet any 2 criteria? No. Patient's initial sepsis screen is negative. Does the patient have a suspected source of infection? No. Patient's initial sepsis screen is negative. Risk Assessment: Do you want to hurt yourself or someone else? Patient reports no desire to harm self or others. 18:02 Method Of Arrival: Ambulatory [facility] 18:02 Acuity: LEON 3 5 19:30 Onset of symptoms was December 17, 2020. cc4 Historical: - Immunization history:: Adult Immunizations up to date. - Social history:: Smoking status: Patient denies any tobacco usage or history of. Screenin:08 Abuse screen: Denies threats or abuse. Denies injuries from another. Nutritional 5 screening: No deficits noted. Tuberculosis screening: No symptoms or risk factors identified. Fall Risk None identified. Assessment: 18:08 General: Appears uncomfortable. Pain: Complains of pain in Slight pain with urination. 5 19:30 Reassessment: Patient appears in no apparent distress at this time. Reports passing cc4 blood from penis when urinating; reports h/o hypertension \T\ IDDM. General: Appears in no apparent distress. Hypertensive; Dr. Aponte in to see with rectal exam done, marianne. well.. Behavior is calm, cooperative. 22:10 Reassessment: Patient appears in no apparent distress at this time. Awake/alert; cc4 smiling; standing \T\ bedside \T\ watching TV; denies any discomfort; glucose 448 mg/dl of prior lab draw; Humulin regular insulin 5 units given IVP as ordered. 23:11 Reassessment: Patient appears in no apparent distress at this time. Accucheck glucose cc4 70 mg/dl; Dr. Aponte notified with no new order rec'd; no orange juice available; gatoraide offered \T\ drinking freely with no n/v; denies any complaints; NADN. 23:30 Reassessment: Vomiting approx 100ml bile colored emesis; Dr. Aponte notified with new cc4 order rec'd; Zofran 4 mg given IVP. 12/18 00:10 Reassessment: Patient appears in no apparent distress at this time. Accucheck glucose cc4 77mg/dl; BP decreased to 162/88; denies any nausea; NADN. Vital Signs: 12/17 18:02 BP 220 / 106; Pulse 85; Resp 20; Temp 98.7(TE); Pulse Ox 97% ; Weight 90.72 kg; Height ch5 5 ft. 6 in. (167.64 cm); Pain 0/10; 19:30 BP 208 / 105; Pulse 77; Resp 20; Temp 98.5(O); Pulse Ox 97% on R/A; cc4 20:00 BP 209 / 108; Pulse 82; Resp 20; Pulse Ox 97% on R/A; cc4 20:30 BP 199 / 105; Pulse 77; Resp 18; Pulse Ox 97% on R/A; cc4 21:00 BP 197 / 97; Pulse 76; Resp 18; Pulse Ox 96% on R/A; cc4 21:46 BP 199 / 102; Pulse 75; Resp 22; Pulse Ox 97% on R/A; cc4 22:00 BP 190 / 100; Pulse 73; Resp 20; Pulse Ox 97% on R/A; cc4 22:30 BP 200 / 102; Pulse 76; Resp 18; Pulse Ox 98% on R/A; cc4 23:00 BP 176 / 93; Pulse 72; Resp 18; Pulse Ox 97% on R/A; cc4 23:38 BP 189 / 97; Pulse 74; Resp 20; Temp 98.5; Pulse Ox 97% on R/A; cc4 12/18 00:10 BP 162 / 88; Pulse 75; Resp 20; Temp 98.5(O); Pulse Ox 97% on R/A; cc4 12/17 18:02 Body Mass Index 32.28 (90.72 kg, 167.64 cm) [facility] ED Course: 12/17 17:59 Patient arrived in ED. am2 18:08 Triage completed. [facility] 18:08 Patient has correct armband on for positive identification. Bed in low position. Call [facility] light in reach. 19:01 Nader Aponte MD is Attending Physician. [facility] 19:05 Inserted saline lock: 20 gauge in right forearm, using aseptic technique. Blood es2 collected. 19:30 EKG completed in triage. Results shown to MD. EKG done per protocol. Performed by ED cc4 Staff. Urine obtained. Labs ordered per protocol. Drawn by ED staff. X-ray ordered. 19:30 Served as a growth media mixer mushroom during rectal exam. [facility] 19:34 XRAY Chest (1 view) In Process Unspecified. EDMS 19:42 Estela Lynne, JENNIE is Primary Nurse. cc4 19:55 CT Stone Protocol In Process Unspecified. EDAK 23:26 Norman Worley MD is Referral Physician. [facility] 23:43 Type And Screen Sent. cc4 12/18 00:10 IV discontinued, intact, bleeding controlled, No redness/swelling at site. Pressure cc4 dressing applied. Administered Medications: 12/17 22:10 Drug: Insulin Regular Human 5 units {Co-Signature: lh3 (Marsha Avilez RN).} Route: cc4 IVP; Site: right forearm; 12/18 00:10 Follow up: Response: Blood sugar is lowered cc4 12/17 23:20 Drug: Rocephin (cefTRIAXone) 1 grams Route: IV; Rate: per protocol; Site: right forearm;cc4 12/18 00:10 Follow up: Response: No adverse reaction cc4 12/17 23:20 Drug: hydrALAZINE 10 mg Route: IVP; Site: right forearm; cc4 12/18 00:10 Follow up: Response: No adverse reaction; Blood pressure is lowered [facility] Outcome: 12/17 23:26 Discharge ordered by . [facility] 12/18 00:10 Discharged to home ambulatory. cc4 Condition: improved Discharge instructions given to patient, Instructed on discharge instructions, follow up and referral plans. medication usage, Demonstrated understanding of instructions, follow-up care, medications, Prescriptions given X 1. 00:39 Patient left the ED. cc4 Signatures: Dispatcher [employer] EDMS Alicia Daniel am2 Nader Aponte MD MD 7 Star Velasco RN RN ch5 Estela Lynne RN RN cc4 Joanna Frazier RN RN es2 Marsha Avilez RN lh3 Corrections: (The following items were deleted from the chart) 12/17 18:08 18:08 PMHx: ESRD; ch5 ch5 18:08 18:08 PMHx: Diabetes - NIDDM; ch5 ch5 18:08 18:08 PMHx: Hypertension; ch5 ch5 18:08 18:08 PMHx: Gastroparesis; ch5 ch5 18:08 18:08 PMHx: kidney disease; ch5 ch5 18:08 18:08 PMHx: Dialysis; M/W/F; ch5 ch5 18:08 18:08 PMHx: Cataracts; ch5 ch5
[2020-12-17] MEDS ORDERED: HYDRALAZINE HCL 20 MG/ML VIAL ONE (23:51)
[2020-12-17] MEDS ORDERED: CEFTRIAXONE 1000 MG/VIAL ONE (23:52)
[2020-12-18] MEDS ORDERED: ONDANSETRON 4 MG/2 ML VIAL ONE (00:01)
[2020-12-18 00:48] VITALS: TEMP 98.5
[2020-12-18 00:57] VITALS: O2SAT 97
[2020-12-18 01:01] VITALS: BP 162/88
--- NOTE | 2020-12-19 18:14 | EKG ---
Test Date: 2020-12-17 Test Time: 20:16:36 Claim Examiner: MEASUREMENT RESULTS: Intervals: Rate: 76 AR: 190 QRSD: 88 QT: 430 QTc: 483 [place]: P: 17 AR: 190 QRS: -22 T: 62 INTERPRETIVE STATEMENTS: Normal sinus rhythm Prolonged QT Abnormal ECG Compared to ECG 06/09/2020 13:31:22 Left-axis deviation no longer present Electronically Signed On 12-19-20 18:06:24 CDT by Jules Yadav
== END 2020-12-18 00:39 | disposition home or self-care (01) ==
LOC: ER 17:52
DX: N39.0 Urinary tract infection, site not specified (principal); E13.65 Other specified diabetes mellitus with hyperglycemia; I10 Essential (primary) hypertension
CPT/HCPCS: 93005; 87088; 85025; 87086; 80048; 36415; 82010; 86900; 83735; 86850; 85610; 86901; 82947 ×2; 80076; 87077; 87186; 81015; 84484; 83880; 76377; 74176; 71045; 82805; 96375; 96374; 99284; J0360

== ENCOUNTER 2021-01-17 06:29 | Day surgery (SDC) | payer OTHER ==
[2021-01-17] MEDS ORDERED: NA CHLORIDE 0.9% 1,000 ML ONE (06:50)
[2021-01-17] MEDS ORDERED: propofoL 200 MG/20 ML VIAL IV ONE ×4 (07:45)
[2021-01-17] MEDS ORDERED: LIDOCAINE 1% MPF 2 ML AMPULE ONE (07:46)
[2021-01-17] MEDS ORDERED: GLYCOPYRROLATE 0.2 MG/ML SYR ONE (07:46)
[2021-01-17] MEDS ORDERED: EPHEDRINE SULF 50 MG/ML VIAL ONE (07:46)
--- NOTE | 2021-01-17 08:24 | ENDO RPT ---
[address], [address] EGD PROCEDURE REPORT EXAM DATE: 01/17/2021 PATIENT NAME: Chase Chacon MR#: [id number] BIRTHDATE: 1975 ATTENDING: Adal Braun Dr STATUS: outpatient POWER STATION OPERATOR: Sharon Montaño RN and Alla Fernandez CST INDICATIONS: The patient is a 45 yr old Male here for an EGD due to mid epigastric abdominal pain, nausea, GERD, heartburn, and chronic unexplained diarrhea PROCEDURE PERFORMED: EGD with biopsy MEDICATIONS: Per Anesthesia. TOPICAL ANESTHETIC: none CONSENT: The patient understands the risks and benefits of the procedure and understands that these risks include, but are not limited to: sedation, allergic reaction, infection, perforation and/or bleeding. Alternative means of evaluation and treatment include, among others: physical exam, x-rays, and/or surgical intervention. The patient elects to proceed with this endoscopic procedure. DESCRIPTION OF PROCEDURE: During intra-op preparation period all mechanical medical equipment was checked for proper function. Hand hygiene and appropriate measures for infection prevention was taken. Procedure, possible complications, and alternatives including but not limited to the possibility of bleeding, perforation, tear, infection, sepsis, need for surgery, need for blood transfusion, and anesthesia related complications were explained to the patient. After the risks, benefits and alternatives of the procedure were thoroughly explained, Informed consent was verified, confirmed and timeout was successfully executed by the treatment team. The patient was placed in the left lateral position. The patient was anesthetized with topical anesthesia. Through the anesthetized oropharyngeal area, the scope was passed without any difficulty. The EC-3890Li ([id number]) and [id number] ([id number]) endoscope was introduced through the mouth and advanced to the second portion of the duodenum. Retroflexed views revealed varices. The gastroscope was then slowly withdrawn and removed. A pedunculated polyp was found in the mid esophagus. With jumbo forceps, a biopsy was obtained and sent to pathology. Grade I varices were found in the cardia. Retained food was present in the body of the stomach. Moderate gastritis was found in the total stomach. Multiple biopsies were obtained and sent to pathology. A sessile polyp was found in the body of the stomach. With jumbo forceps, a biopsy was obtained and sent to pathology. ADVERSE EVENTS: There were no complications. IMPRESSIONS: 1. 7 mm pedunculated polyp in the mid esophagus, s/p biopsy 2. Possible Grade I gastric varices at the cardia 3. Moderate amount of retained bile fluid >> food in the body of the stomach - most suctioned out with endoscope 4. Moderate gastritis in the total stomach, s/p biopsies 5. Multiple ( 7) 2-9 mm sessile polyps in the body of the stomach, s/p biopsy 6. Small bowel biopsies obtained with history of chronic unexplained diarrhea RECOMMENDATIONS: 1. await biopsy results 2. acid suppression therapy REPEAT EXAM: Return in 1 month(s) for EGD. Adal Braun Dr eSigned: Adal Braun Dr 01/17/2021 8:24 AM cc: CPT CODES: ICD9 CODES: PATIENT NAME: Chase Chacon MR#: [id number]
--- NOTE | 2021-01-17 08:51 | ENDO RPT ---
[address], [address] COLONOSCOPY PROCEDURE REPORT EXAM DATE: 01/17/2021 PATIENT NAME: Chase hCacon MR #: [id number] BIRTHDATE: 1975 ATTENDING: Adal Braun Dr STATUS: outpatient GRADER PATROL: Sharon Montaño RN and Alla Fernandez CST INDICATIONS: The patient is a 45 yr old Male here for a colonoscopy due to anemia and change in bowel habits PROCEDURE PERFORMED: Colonoscopy MEDICATIONS: Per Anesthesia. ESTIMATED BLOOD LOSS: None CONSENT: The patient understands the risks and benefits of the procedure and understands that these risks include, but are not limited to: sedation, allergic reaction, infection, perforation and/or bleeding. Alternative means of evaluation and treatment include, among others: physical exam, x-rays, and/or surgical intervention. The patient elects to proceed with this endoscopic procedure. DESCRIPTION OF PROCEDURE: During intra-op preparation period all mechanical medical equipment was checked for proper function. Hand hygiene and appropriate measures for infection prevention was taken. Procedure, possible complications, alternatives including, but not limited to possibility of bleeding, perforation, tear, infection, sepsis, need for surgery, need for blood transfusion, were explained to the patient. After the risks, benefits and alternatives of the procedure were thoroughly explained, Informed consent was verified, confirmed and timeout was successfully executed by the treatment team. The patient was placed in the left lateral position. A digital rectal exam was performed and revealed an enlarged prostate. After appropriate level of anesthesia, the scope was passed. The EC-3890Li ([id number]) endoscope was introduced through the anus and advanced to the terminal ileum which was intubated for a short distance. The quality of the prep was good. The instrument was then slowly withdrawn as the colon was fully examined. Scope withdrawal time was 8 minutes. COLON FINDINGS: Mild diverticulosis was noted throughout the entire examined colon. No bleeding was noted from the diverticulosis. Moderate sized internal hemorrhoids were found. Retroflexed views revealed medium hemorrhoids. The scope was then completely withdrawn from the patient and the procedure terminated. ADVERSE EVENTS: There were no complications. IMPRESSIONS: 1. Mild diverticulosis throughout the entire examined colon 2. Moderate sized internal hemorrhoids 3. Intubation to terminal ileum RECOMMENDATIONS: 1. yearly hemoccult starting in 4 years 2. fiber rich diet 3. hemorrhoidal hygiene RECALL: Return in 10 year(s) for Colonoscopy. Adal Braun Dr eSigned: Adal Braun Dr 01/17/2021 8:50 AM cc: CPT CODES: ICD9 CODES: 600.0 Hypertrophy (benign) of prostate PATIENT NAME: Chase Chacon MR#: [id number]
--- NOTE | 2021-01-17 09:04 | ENDO RPT ---
[address], [address] EGD PROCEDURE REPORT EXAM DATE: 01/17/2021 PATIENT NAME: Chase Chacon MR#: [id number] BIRTHDATE: 1975 ATTENDING: Adal Braun Dr STATUS: outpatient FINANCIAL PROJECT MANAGER: Sharon Montaño RN and Alla Fernandez CST INDICATIONS: The patient is a 45 yr old Male here for an EGD due to mid epigastric abdominal pain, anemia, hematemesis, nausea / vomiting, GERD, heartburn, and chronic unexplained diarrhea PROCEDURE PERFORMED: EGD with biopsy MEDICATIONS: Per Anesthesia. TOPICAL ANESTHETIC: none CONSENT: The patient understands the risks and benefits of the procedure and understands that these risks include, but are not limited to: sedation, allergic reaction, infection, perforation and/or bleeding. Alternative means of evaluation and treatment include, among others: physical exam, x-rays, and/or surgical intervention. The patient elects to proceed with this endoscopic procedure. DESCRIPTION OF PROCEDURE: During intra-op preparation period all mechanical medical equipment was checked for proper function. Hand hygiene and appropriate measures for infection prevention was taken. Procedure, possible complications, and alternatives including but not limited to the possibility of bleeding, perforation, tear, infection, sepsis, need for surgery, need for blood transfusion, and anesthesia related complications were explained to the patient. After the risks, benefits and alternatives of the procedure were thoroughly explained, Informed consent was verified, confirmed and timeout was successfully executed by the treatment team. The patient was placed in the left lateral position. The patient was anesthetized with topical anesthesia. Through the anesthetized oropharyngeal area, the scope was passed without any difficulty. The EC-[id number] ([id number]) and [id number] ([id number]) endoscope was introduced through the mouth and advanced to the second portion of the duodenum. Retroflexed views revealed varices. The gastroscope was then slowly withdrawn and removed. A 7 mm pedunculated polyp was found in the mid esophagus. With jumbo forceps, a biopsy was obtained and sent to pathology. Possible Grade I gastric varices were found in the cardia. Retained bile fluid >> food was present in the body of the stomach - suctioned out with endoscope. Moderate gastritis was found in the total stomach. Multiple biopsies were obtained and sent to pathology. Multiple ( 7) 2-9 mm sessile polyps were found in the body of the stomach. With jumbo forceps, a biopsy was obtained and sent to pathology. Small bowel biopsies obtained with history of chronic unexplained diarrhea. ADVERSE EVENTS: There were no complications. IMPRESSIONS: 1. 7 mm pedunculated polyp in the mid esophagus, s/p biopsy 2. Possible Grade I gastric varices at the cardia 3. Moderate amount of retained bile fluid >> food in the body of the stomach - most suctioned out with endoscope 4. Moderate gastritis in the total stomach, s/p biopsies 5. Multiple ( 7) 2-9 mm sessile polyps in the body of the stomach, s/p biopsy 6. Small bowel biopsies obtained with history of chronic unexplained diarrhea RECOMMENDATIONS: 1. await biopsy results 2. acid suppression therapy REPEAT EXAM: Return in 1 month(s) for EGD. Adal Braun Dr eSigned: Adal Braun Dr 01/17/2021 9:04 AM Revised: 01/17/2021 9:04 AM cc: CPT CODES: ICD9 CODES: PATIENT NAME: Chase Chacon MR#: [id number]
[2021-01-17 09:25] VITALS: O2SAT 100
[2021-01-17 09:26] VITALS: TEMP 97.6
[2021-01-17 09:27] VITALS: BP 157/71
== END 2021-01-17 09:34 | disposition home or self-care (01) ==
LOC: OR 06:29
PROVIDERS: ATTEND Internal Medicine Gastroenterology
PROC: 0DJD8ZZ Inspection of Lower Intestinal Tract, Via Natural or Artificial Opening Endoscopic (ICD-10-PCS; 2021-01-17)
PROC: 0DB58ZX Excision of Esophagus, Via Natural or Artificial Opening Endoscopic, Diagnostic (ICD-10-PCS; principal; 2021-01-17 07:30)
PROC: 0DB68ZX Excision of Stomach, Via Natural or Artificial Opening Endoscopic, Diagnostic (ICD-10-PCS; 2021-01-17 07:30)
DX: R19.4 Change in bowel habit (principal); R19.7 Diarrhea, unspecified; K92.0 Hematemesis; K21.9 Gastro-esophageal reflux disease without esophagitis; R10.13 Epigastric pain; D64.9 Anemia, unspecified; E11.9 Type 2 diabetes mellitus without complications; N40.0 Benign prostatic hyperplasia without lower urinary tract symptoms; K57.30 Diverticulosis of large intestine without perforation or abscess without bleeding; K64.8 Other hemorrhoids; K31.7 Polyp of stomach and duodenum; K22.81 Esophageal polyp; K29.50 Unspecified chronic gastritis without bleeding; K21.00 Gastro-esophageal reflux disease with esophagitis, without bleeding; Z20.822 Contact with and (suspected) exposure to COVID-19
CPT/HCPCS: 88312; 82947; 88305; 43239; 45378; U0003; J2704 ×3; J7030

== ENCOUNTER 2021-02-27 19:59 | Emergency (ER) | payer OTHER ==
--- OUTSIDE RECORDS SUMMARY | 2021-02-27 20:08 | XMS REPORT | Continuity of Care Document ---
:1975 Author Organization [facility] t Address [address] [place] [address] Dr. Leon [address] [place] [address] Care Team Providers Name Role Phone FREEMAN TORI Primary Care Physician Unavailable GUS TEAGUE.HMena Attending Clinician Unavailable Jihan Zelaya MD Attending Clinician Navi SAINI, Alex N Attending Clinician Doctor Unassigned, Name Attending Clinician Unavailable Ho SAINI, K.H. Attending Clinician 1, Cardio Fac Room Attending Clinician Unavailable Pc, Echo Room 1 - Attending Clinician Unavailable Joshua SAINI Attending Clinician Alex FUNEZ N Attending Clinician Unavailable Vtc-Lab Attending Clinician Unavailable Jihan ZELAYA Attending Clinician Unavailable Payers Payer Name Policy Type Policy Number Effective Date Expiration Date S [facility] MEDICARE PART A \\T\\ [id number] 2012 B 00:00:00 COMMERCIAL [id number] 2016 NON-CONTRACT 00:00:00 GENERIC Problems Condition Condition Condition Status Onset Resolution Last Treating Co mments Source Name Details Category Date Date Treatment Clinician Date Obesity Obesity Disease Active Univers (BMI (BMI 5-09 ity of 30-39.9) 30-39.9) 00:00: [address] Hypertensi Hypertensi Disease Active U nivers on on 03-17 ity of 00:00: [place] 00 Medical Branch Cataract Cataract Disease Active Overview: Un gregg - fixed ity of 00:00: bilateral [place] ly Medical Branch DM DM Disease Active Univers (diabetes (diabetes 03-17 [place]y of mellitus[place] mellitus[place] Nephropath Nephropath Disease Active U nivers y y ity of [facility] IBS IBS Disease Active Univers (irritable (irritable it y of bowel bowel [place] syndrome) syndrome) Medi siva Branch 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 ity of [facility] ESRD (end ESRD (end Disease Active Uni vers stage stage ity of renal renal [place] disease) disease) Medica l on on Branch dialysis dialysis 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 hy[place] renal of renal Medica l origin origin Branch Retinopath Retinopath Disease Active U nivers y y ity of [facility] Allergies, Adverse Reactions, Alerts Allergy Allergy Status Severity Reaction(s) Onset Inactive Treating Comm ents Source Name Type Date Date Clinician PROMETHA DRUG Active Low Anxiety Univers ZINE HCL INGREDI 7-25 ity of 00:00: [place] 00 [facility] Branch Prometha Propensi Active Anxiety "jumpy" Univ ers zine Hcl ty to 7-25 ity of adverse 00:00: [place] reaction 00 Medical s Branch Social History Social Habit Start Date Stop Date Quantity Comments Source Exposure to Not sure [facility] SARS-CoV-2 [facility] (event) Branch Sex Assigned At [facility]it y of [facility] Tobacco use and 2020-02-28 2020-02-28 Never used Universit y of exposure 00:00:00 00:00:00 [facility] Alcohol intake 2020-02-28 2020-02-28 Ex-drinker University 00:00:00 00:00:00 (finding) [facility] Alcohol Comment 2016-10-08 2016-10-08 quit 4-5 years Unive rsity of 00:00:00 00:00:00 ago [facility] Smoking Status Start Date Stop Date Source Never smoker [facility] Medications Ordered Filled Start Stop Current Ordering Indication Dosage Frequency Signature Comments Components Source Medication Medication Date Date Medication? Clinician (SIG) Name Name Regadenoson 2019-03 2020- No PRN, Unive rs (LEXISCAN) 03-14 Starting ity of injection 17:05: 17:05 [facility] 00 :00 03/14/20 Medical at 1105, Branch Until Fri03/14/20 at 1105, Routine tc 2019-03 2020- No 41.2mCi 41.2 Univers 99m-tetrofo 03-14 [facility] 17:00: 17:00 , [place] ([facility]) 00 :00 Intravenou Medi siva injection s, ONCE, 1 Bran ch 41.2 dose, [facility] 03/14/20 at 1115, Routine tc 2019-03 2020- No 14.9mCi 14.9 Univers 99m-tetrofo 03-14 [facility] 15:45: 15:45 , [place] ([facility]) 00 :00 Intravenou Medi svia injection s, ONCE, 1 Bran ch 14.9 dose, [facility] 03/14/20 at 0945, Routine sevelamer 2019-03 Yes 800mg Take 800 Uni vers (RENVELA) 2-14 mg by ity of 800 mg 19:11: mouth 3 [place] tablet 09 (three) Medical times Branch daily with meals. sevelamer 2019-03 Yes 800mg Take 800 Uni vers (RENVELA) 2-14 mg by ity of 800 mg 19:11: mouth 3 [place] tablet 09 (three) Medical times Branch daily with meals. sevelamer 2019-03 Yes 800mg Take 800 Uni vers (RENVELA) 2-14 mg by ity of 800 mg 19:11: mouth 3 [place] tablet 09 (three) Medical times Branch daily with meals. sevelamer 2019- Yes 800mg Take 800 Uni vers (RENVELA) 2-14 mg by ity of 800 mg 19:11: mouth 3 [place] tablet 09 (three) Medical times Branch daily with meals. sevelamer 2019- Yes 800mg Take 800 Uni vers (RENVELA) 2-14 mg by ity of 800 mg 19:11: mouth 3 [place] tablet 09 (three) Medical times Branch daily with meals. sevelamer 2019- Yes 800mg Take 800 Uni vers (RENVELA) 2-14 mg by ity of 800 mg 19:11: mouth 3 [place] tablet 09 (three) Medical times Branch daily with meals. sevelamer 2020-1 Yes 800mg Take 800 Uni vers (RENVELA) 2-14 mg by ity of 800 mg 19:11: mouth 3 [place] tablet 09 (three) Medical times Branch daily with meals. sevelamer 2020-1 Yes 800mg Take 800 Uni vers (RENVELA) 2-14 mg by ity of 800 mg 19:11: mouth 3 [place] tablet 09 (three) Medical times Branch daily with meals. sevelamer 2020-1 Yes 800mg Take 800 Uni vers (RENVELA) 2-14 mg by ity of 800 mg 19:11: mouth 3 [place] tablet 09 (three) Medical times Branch daily with meals. sevelamer 2020-1 Yes 800mg Take 800 Uni vers (RENVELA) 2-14 mg by ity of 800 mg 19:11: mouth 3 [place] tablet 09 (three) Medical times Branch daily with meals. sevelamer 2020- Yes 800mg Take 800 Uni vers (RENVELA) 2-14 mg by ity of 800 mg 19:11: mouth 3 [place] tablet 09 (three) Medical times Branch daily with meals. sevelamer 2019-1 Yes 800mg Take 800 Uni vers (RENVELA) 2-14 mg by ity of 800 mg 19:11: mouth 3 [place] tablet 09 (three) Medical times Branch daily with meals. sevelamer 2020-1 Yes 800mg Take 800 Uni vers (RENVELA) 2-14 mg by ity of 800 mg 19:11: mouth 3 [place] tablet 09 (three) Medical times Branch daily with meals. sevelamer 2020-1 Yes 800mg Take 800 Uni vers (RENVELA) 2-14 mg by ity of 800 mg 19:11: mouth 3 [place] tablet 09 (three) Medical times Branch daily with meals. sevelamer 2020-1 Yes 800mg Take 800 Uni vers (RENVELA) 2-14 mg by ity of 800 mg 19:11: mouth 3 [place] tablet 09 (three) Medical times Branch daily with meals. sevelamer 2020-1 Yes 800mg Take 800 Uni vers (RENVELA) 2-14 mg by ity of 800 mg 19:11: mouth 3 [place] tablet 09 (three) Medical times Branch daily with meals. sevelamer 2020-1 Yes 800mg Take 800 Uni vers (RENVELA) 2-14 mg by ity of 800 mg 19:11: mouth 3 [place] tablet 09 (three) Medical times Branch daily with meals. sevelamer 2019- Yes 800mg Take 800 Uni vers (RENVELA) 2-14 mg by ity of 800 mg 19:11: mouth 3 [place] tablet 09 (three) Medical times Branch daily with meals. sevelamer 2019- Yes 800mg Take 800 Uni vers (RENVELA) 2-14 mg by ity of 800 mg 19:11: mouth 3 [place] tablet 09 (three) Medical times Branch daily with meals. carvedilol 2019-03 2020- No 25mg Take 25 mg Univers 25 mg 2-14 12-14 by mouth 2 ity of tablet 19:11: 00:00 (two) [place] 09 :00 times Medical daily with Branch meals. carvedilol 2019- 2020- No 25mg Take 25 mg Univers 25 mg 2-14 12-14 by mouth 2 ity of tablet 19:11: 00:00 (two) [place] 09 :00 times Medical daily with Branch meals. carvedilol 2019-03- No 25mg Take 25 mg Univers 25 mg 2-14 12-14 by mouth 2 ity of tablet 19:11: 00:00 (two) [place] 09 :00 times Medical daily with Branch meals. ALPRAZolam 2019- Yes .25mg Take 0.25 U nivers (XANAX) 2-14 mg by ity of 0.25 mg 19:11: mouth 2 [place] tablet 02 (two) Medical times Branch daily. ALPRAZolam 2019- Yes .25mg Take 0.25 U nivers (XANAX) 2-14 mg by ity of 0.25 mg 19:11: mouth 2 [place] tablet 02 (two) Medical times Branch daily. ALPRAZolam 2019- Yes .25mg Take 0.25 U nivers (XANAX) 2-14 mg by ity of 0.25 mg 19:11: mouth 2 [place] tablet 02 (two) Medical times Branch daily. ALPRAZolam 2019- Yes .25mg Take 0.25 U nivers (XANAX) 2-14 mg by ity of 0.25 mg 19:11: mouth 2 [place] tablet 02 (two) Medical times Branch daily. ALPRAZolam 2019- Yes .25mg Take 0.25 U nivers (XANAX) 2-14 mg by ity of 0.25 mg 19:11: mouth 2 [place] tablet 02 (two) Medical times Branch daily. ALPRAZolam 2019- Yes .25mg Take 0.25 U nivers (XANAX) 2-14 mg by ity of 0.25 mg 19:11: mouth 2 [place] tablet 02 (two) Medical times Branch daily. ALPRAZolam 2019- Yes .25mg Take 0.25 U nivers (XANAX) 2-14 mg by ity of 0.25 mg 19:11: mouth 2 [place] tablet 02 (two) Medical times Branch daily. ALPRAZolam 2019- Yes .25mg Take 0.25 U nivers (XANAX) 2-14 mg by ity of 0.25 mg 19:11: mouth 2 [place] tablet 02 (two) Medical times Branch daily. ALPRAZolam 2019- Yes .25mg Take 0.25 U nivers (XANAX) 2-14 mg by ity of 0.25 mg 19:11: mouth 2 [place] tablet 02 (two) Medical times Branch daily. ALPRAZolam 2019- Yes .25mg Take 0.25 U nivers (XANAX) 2-14 mg by ity of 0.25 mg 19:11: mouth 2 [place] tablet 02 (two) Medical times Branch daily. ALPRAZolam 2019- Yes .25mg Take 0.25 U nivers (XANAX) 2-14 mg by ity of 0.25 mg 19:11: mouth 2 [place] tablet 02 (two) Medical times Branch daily. ALPRAZolam 2019- Yes .25mg Take 0.25 U nivers (XANAX) 2-14 mg by ity of 0.25 mg 19:11: mouth 2 [place] tablet 02 (two) Medical times Branch daily. ALPRAZolam 2019- Yes .25mg Take 0.25 U nivers (XANAX) 2-14 mg by ity of 0.25 mg 19:11: mouth 2 [place] tablet 02 (two) Medical times Branch daily. ALPRAZolam 2019- Yes .25mg Take 0.25 U nivers (XANAX) 2-14 mg by ity of 0.25 mg 19:11: mouth 2 [place] tablet 02 (two) Medical times Branch daily. ALPRAZolam 2019- Yes .25mg Take 0.25 U nivers (XANAX) 2-14 mg by ity of 0.25 mg 19:11: mouth 2 [place] tablet 02 (two) Medical times Branch daily. ALPRAZolam 2019- Yes .25mg Take 0.25 U nivers (XANAX) 2-14 mg by ity of 0.25 mg 19:11: mouth 2 [place] tablet 02 (two) Medical times Branch daily. ALPRAZolam 2019-03 Yes .25mg Take 0.25 U nivers (XANAX) 2-14 mg by ity of 0.25 mg 19:11: mouth 2 [place] tablet 02 (two) Medical times Branch daily. ALPRAZolam 2019- Yes .25mg Take 0.25 U nivers (XANAX) 2-14 mg by ity of 0.25 mg 19:11: mouth 2 [place] tablet 02 (two) Medical times Branch daily. ALPRAZolam 2019-03 Yes .25mg Take 0.25 U nivers (XANAX) 2-14 mg by ity of 0.25 mg 19:11: mouth 2 [place] tablet 02 (two) Medical times Branch daily. ramipril 10 2019-03 2020- No 10mg Take 10 mg Univers mg capsule 2-14 12-14 by mouth ity of 19:10: 00:00 daily. [place] 26 :00 [facility] Branch ramipril 10 2019-03 2020- No 10mg Take 10 mg Univers mg capsule 2-14 12-14 by mouth ity of 19:10: 00:00 daily. [place] 26 :00 [facility] Branch ramipril 10 2019-03 2020- No 10mg Take 10 mg Univers mg capsule 2-14 12-14 by mouth ity of 19:10: 00:00 daily. [place] 26 :00 [facility] Branch calcium 2019-03 2020- No 667mg Take 667 Univ ers acetate 667 2-14 12-14 mg by ity of mg Tab 19:09: 00:00 mouth 3 [place] 21 :00 (three) Medical times Branch daily with meals. calcium 2019-03 2020- No 667mg Take 667 Univ ers acetate 667 2-14 12-14 mg by ity of mg Tab 19:09: 00:00 mouth 3 [place] 21 :00 (three) Medical times Branch daily with meals. calcium 2019-03 2020- No 667mg Take 667 Univ ers acetate 667 2-14 12-14 mg by ity of mg Tab 19:09: 00:00 mouth 3 [place] 21 :00 (three) Medical times Branch daily with meals. iohexol 2019-1 2020- No 150mL 150 mL, Unive rs (OMNIPAQUE 0-15 10-15 Intravenou it y of 350 13:31: 13:31 s, ONCE, 1 [place] BULK-150 00 :00 dose, [place] [facility] l mL) 12/30/19 Branch injection at 0845, 150 mL Routine Insulin 2020-0 Yes 20U inject 20 Unive rs Lispro, 9-01 Units ity of Human, 16:40: under the [place] (HUMALOG) 27 skin 2 Medical 100 unit/mL (two) Branch cartridge times daily. NIFEdipine 2020-0 Yes 90mg Take 90 mg U nivers CC 90 mg SR 9-01 by mouth 2 it y of tablet 16:40: (two) [place] [address] times Medical daily. Branch Insulin 2020-0 Yes 25U inject 25 Unive rs Glargine 9-01 Units ity of (BASAGLAR 16:40: under the [place] as [place] 27 skin. Medical U-100 Branch INSULIN) 100 unit/mL (3 mL) injection amLODIPine 2020-0 Yes 10mg Take 10 mg U nivers 10 mg 9-01 by mouth ity of tablet 16:40: daily. [address] Branch aspirin 81 2020-0 Yes 81mg Take 81 mg U nivers mg EC 9-01 by mouth ity of tablet 16:40: daily. [address] Branch sevelamer 2020-0 Yes 2400mg Take 2,400 Univers 800 mg 9-01 mg by ity of tablet 16:40: mouth 3 [place] [address] (three) Medical times [place] daily with meals. Insulin 2020-0 Yes 20U inject 20 Unive rs Lispro, 9-01 Units ity of Human, 16:40: under the [place] (HUMALOG) 27 skin 2 Medical 100 unit/mL (two) Branch cartridge times daily. NIFEdipine 2020-0 Yes 90mg Take 90 mg U nivers CC 90 mg SR 9-01 by mouth 2 it y of tablet 16:40: (two) [place] [address] times Medical daily. Branch Insulin 2020-0 Yes 25U inject 25 Unive rs Glargine 9-01 Units ity of (BASAGLAR 16:40: under the [place] as [place] 27 skin. Medical U-100 Branch INSULIN) 100 unit/mL (3 mL) injection amLODIPine 2020-0 Yes 10mg Take 10 mg U nivers 10 mg 9-01 by mouth ity of tablet 16:40: daily. [address] Branch aspirin 81 2020-0 Yes 81mg Take 81 mg U nivers mg EC 9-01 by mouth ity of tablet 16:40: daily. [address] Branch sevelamer 2020-0 Yes 2400mg Take 2,400 Univers 800 mg 9-01 mg by ity of tablet 16:40: mouth 3 [place] [address] (three) Medical times Branch daily with meals. Insulin 2020-0 Yes 20U inject 20 Unive rs Lispro, 9-01 Units ity of Human, 16:40: under the [place] (HUMALOG) 27 skin 2 Medical 100 unit/mL (two) Branch cartridge times daily. NIFEdipine 2020-0 Yes 90mg Take 90 mg U nivers CC 90 mg SR 9-01 by mouth 2 it y of tablet 16:40: (two) [place] [address] times Medical daily. Branch Insulin 2020-0 Yes 25U inject 25 Unive rs Glargine 9-01 Units ity of (BASAGLAR 16:40: under the [place] as [place] 27 skin. Medical U-100 Branch INSULIN) 100 unit/mL (3 mL) injection amLODIPine 2020-0 Yes 10mg Take 10 mg U nivers 10 mg 9-01 by mouth ity of tablet 16:40: daily. [address] aspirin 81 2020-0 Yes 81mg Take 81 mg U nivers mg EC 9-01 by mouth ity of tablet 16:40: daily. [address] Branch sevelamer 2020-0 Yes 2400mg Take 2,400 Univers 800 mg 9-01 mg by ity of tablet 16:40: mouth 3 [place] [address] (three) Medical times Branch daily with meals. calcium 2020-0 Yes 667mg Take 667 Unive rs acetate 667 9-01 mg by ity of mg Tab 16:40: mouth 3 [place] [address] (three) Medical times Branch daily with meals. ALPRAZolam 2020-0 Yes .25mg Take 0.25 U nivers (XANAX) 9-01 mg by ity of 0.25 mg 16:40: mouth 2 [place] tablet 27 (two) Medical times Branch daily. Insulin 2020-0 Yes 20U inject 20 Unive rs Lispro, 9-01 Units ity of Human, 16:40: under the [place] (HUMALOG) 27 skin 2 Medical 100 unit/mL (two) Branch cartridge times daily. NIFEdipine 2020-0 Yes 90mg Take 90 mg U nivers CC 90 mg SR 9- by mouth 2 it y of tablet 16:40: (two) [place] [address] times Medical daily. Branch Insulin 2020-0 Yes 25U inject 25 Unive rs Glargine 9-01 Units ity of (BASAGLAR 16:40: under the [place] as [place] 27 skin. Medical U-100 Branch INSULIN) 100 unit/mL (3 mL) injection carvedilol 2020-0 Yes 25mg Take 25 mg U nivers 25 mg 9-01 by mouth 2 ity of tablet 16:40: (two) [place] [address] times Medical daily with Branch meals. ramipril 10 2020-0 Yes 10mg Take 10 mg Univers mg capsule 9- by mouth ity o f 16:40: daily. [address] Branch amLODIPine 2020-0 Yes 10mg Take 10 mg U nivers 10 mg 9-01 by mouth ity of tablet 16:40: daily. [address] Branch aspirin 81 2020-0 Yes 81mg Take 81 mg U nivers mg EC 9- by mouth ity of tablet 16:40: daily. [address] Branch sevelamer 2020-0 Yes 2400mg Take 2,400 Univers 800 mg 9-01 mg by ity of tablet 16:40: mouth 3 [place] [address] (three) Medical times Branch daily with meals. calcium 2020-0 Yes 667mg Take 667 Unive rs acetate 667 9-01 mg by ity of mg Tab 16:40: mouth 3 [place] [address] (three) Medical times Branch daily with meals. ALPRAZolam 2020-0 Yes .25mg Take 0.25 U nivers (XANAX) 9-01 mg by ity of 0.25 mg 16:40: mouth 2 [place] tablet 27 (two) Medical times Branch daily. Insulin 2020-0 Yes 20U inject 20 Unive rs Lispro, 9-01 Units ity of Human, 16:40: under the [place] (HUMALOG) 27 skin 2 Medical 100 unit/mL (two) Branch cartridge times daily. NIFEdipine 2020-0 Yes 90mg Take 90 mg U nivers CC 90 mg SR 9- by mouth 2 it y of tablet 16:40: (two) [place] [address] times Medical daily. Branch Insulin 2020-0 Yes 25U inject 25 Unive rs Glargine 9-01 Units ity of (BASAGLAR 16:40: under the [place] as [place] 27 skin. Medical U-100 Branch INSULIN) 100 unit/mL (3 mL) injection carvedilol 2020-0 Yes 25mg Take 25 mg U nivers 25 mg 9-01 by mouth 2 ity of tablet 16:40: (two) [place] [address] times Medical daily with Branch meals. ramipril 10 2020-0 Yes 10mg Take 10 mg Univers mg capsule 9-01 by mouth ity o f 16:40: daily. [address] Branch amLODIPine 2020-0 Yes 10mg Take 10 mg U nivers 10 mg - by mouth ity of tablet 16:40: daily. [address] Branch aspirin 81 2020-0 Yes 81mg Take 81 mg U nivers mg EC 9- by mouth ity of tablet 16:40: daily. [address] Branch sevelamer 2020-0 Yes 2400mg Take 2,400 Univers 800 mg 9-01 mg by ity of tablet 16:40: mouth 3 [place] [address] (three) Medical times [place] daily with meals. calcium 2020-0 Yes 667mg Take 667 Unive rs acetate 667 9-01 mg by ity of mg Tab 16:40: mouth 3 [place] [address] (three) Medical times [place] daily with meals. ALPRAZolam 2020-0 Yes .25mg Take 0.25 U nivers (XANAX) 9-01 mg by ity of 0.25 mg 16:40: mouth 2 [place] tablet 27 (two) Medical times Branch daily. Insulin 2020-0 Yes 20U inject 20 Unive rs Lispro, 9-01 Units ity of Human, 16:40: under the [place] (HUMALOG) 27 skin 2 Medical 100 unit/mL (two) Branch cartridge times daily. NIFEdipine 2020-0 Yes 90mg Take 90 mg U nivers CC 90 mg SR 9- by mouth 2 it y of tablet 16:40: (two) [place] [address] times Medical daily. Branch Insulin 2020-0 Yes 25U inject 25 Unive rs Glargine 9-01 Units ity of (BASAGLAR 16:40: under the [place] as [place] 27 skin. Medical U-100 Branch INSULIN) 100 unit/mL (3 mL) injection carvedilol 2020-0 Yes 25mg Take 25 mg U nivers 25 mg 9-01 by mouth 2 ity of tablet 16:40: (two) [place] [address] times Medical daily with Branch meals. ramipril 10 2020-0 Yes 10mg Take 10 mg Univers mg capsule 9-01 by mouth ity o f 16:40: daily. [place] [address] Medical Branch amLODIPine 2020-0 Yes 10mg Take 10 mg U nivers 10 mg 9-01 by mouth ity of tablet 16:40: daily. [address] Branch aspirin 81 2020-0 Yes 81mg Take 81 mg U nivers mg EC 9- by mouth ity of tablet 16:40: daily. [address] Branch sevelamer 2020-0 Yes 2400mg Take 2,400 Univers 800 mg 9-01 mg by ity of tablet 16:40: mouth 3 [place] [address] (three) Medical times Branch daily with meals. calcium 2020-0 Yes 667mg Take 667 Unive rs acetate 667 9-01 mg by ity of mg Tab 16:40: mouth 3 [place] [address] (three) Medical times [place] daily with meals. ALPRAZolam 2020-0 Yes .25mg Take 0.25 U nivers (XANAX) 9-01 mg by ity of 0.25 mg 16:40: mouth 2 [place] tablet 27 (two) Medical times Branch daily. Insulin 2020-0 Yes 20U inject 20 Unive rs Lispro, 9-01 Units ity of Human, 16:40: under the [place] (HUMALOG) 27 skin 2 Medical 100 unit/mL (two) Branch cartridge times daily. NIFEdipine 2020-0 Yes 90mg Take 90 mg U nivers CC 90 mg SR 9- by mouth 2 it y of tablet 16:40: (two) [place] [address] times Medical daily. Branch Insulin 2020-0 Yes 25U inject 25 Unive rs Glargine 9-01 Units ity of (BASAGLAR 16:40: under the [place] as [place] 27 skin. Medical U-100 Branch INSULIN) 100 unit/mL (3 mL) injection carvedilol 2020-0 Yes 25mg Take 25 mg U nivers 25 mg 9-01 by mouth 2 ity of tablet 16:40: (two) [place] [address] times Medical daily with Branch meals. ramipril 10 2020-0 Yes 10mg Take 10 mg Univers mg capsule 9-01 by mouth ity o f 16:40: daily. [address] Branch amLODIPine 2020-0 Yes 10mg Take 10 mg U nivers 10 mg 9-01 by mouth ity of tablet 16:40: daily. [address] Branch aspirin 81 2020-0 Yes 81mg Take 81 mg U nivers mg EC 9-01 by mouth ity of tablet 16:40: daily. [address] Branch sevelamer 2020-0 Yes 2400mg Take 2,400 Univers 800 mg 9-01 mg by ity of tablet 16:40: mouth 3 [place] [address] (three) Medical times Branch daily with meals. calcium 2020-0 Yes 667mg Take 667 Unive rs acetate 667 9-01 mg by ity of mg Tab 16:40: mouth 3 [place] [address] (three) Medical times [place] daily with meals. ALPRAZolam 2020-0 Yes .25mg Take 0.25 U nivers (XANAX) 9-01 mg by ity of 0.25 mg 16:40: mouth 2 [place] tablet 27 (two) Medical times Branch daily. Insulin 2020-0 Yes 20U inject 20 Unive rs Lispro, 9-01 Units ity of Human, 16:40: under the [place] (HUMALOG) 27 skin 2 Medical 100 unit/mL (two) Branch cartridge times daily. NIFEdipine 2020-0 Yes 90mg Take 90 mg U nivers CC 90 mg SR 11-15 by mouth 2 it y of tablet 16:40: (two) [place] [address] times Medical daily. Branch Insulin 2020-0 Yes 25U inject 25 Unive rs Glargine 9- Units ity of (BASAGLAR 16:40: under the [facility] as [place] 27 skin. Medical U-100 Branch INSULIN) 100 unit/mL (3 mL) injection carvedilol 2020-0 Yes 25mg Take 25 mg U nivers 25 mg - by mouth 2 ity of tablet 16:40: (two) [place] [address] times Medical daily with Branch meals. ramipril 10 2020-0 Yes 10mg Take 10 mg Univers mg capsule - by mouth ity o f 16:40: daily. [place] 27 Medical Branch amLODIPine 2020-0 Yes 10mg Take 10 mg U nivers 10 mg 9-01 by mouth ity of tablet 16:40: daily. [address] Branch aspirin 81 2020-0 Yes 81mg Take 81 mg U nivers mg EC 9-01 by mouth ity of tablet 16:40: daily. [address] Branch sevelamer 2020-0 Yes 2400mg Take 2,400 Univers 800 mg 9-01 mg by ity of tablet 16:40: mouth 3 [place] [address] (three) Medical times Branch daily with meals. calcium 2020-0 Yes 667mg Take 667 Unive rs acetate 667 9-01 mg by ity of mg Tab 16:40: mouth 3 [place] [address] (three) Medical times [place] daily with meals. ALPRAZolam 2020-0 Yes .25mg Take 0.25 U nivers (XANAX) 9-01 mg by ity of 0.25 mg 16:40: mouth 2 [place] tablet 27 (two) Medical times Branch daily. Insulin 2020-0 Yes 20U inject 20 Unive rs Lispro, 9- Units ity of Human, 16:40: under the [place] (HUMALOG) 27 skin 2 Medical 100 unit/mL (two) Branch cartridge times daily. NIFEdipine 2020-0 Yes 90mg Take 90 mg U nivers CC 90 mg SR 9 by mouth 2 it y of tablet 16:40: (two) [place] [address] times Medical daily. Branch Insulin 2020-0 Yes 25U inject 25 Unive rs Glargine 9- Units ity of (BASAGLAR 16:40: under the [facility] as KWIKPEN 27 skin. Medical U-100 Branch INSULIN) 100 unit/mL (3 mL) injection carvedilol 2020-0 Yes 25mg Take 25 mg U nivers 25 mg 9-01 by mouth 2 ity of tablet 16:40: (two) [place] [address] times Medical daily with Branch meals. ramipril 10 2020-0 Yes 10mg Take 10 mg Univers mg capsule 9-01 by mouth ity o f 16:40: daily. [address] amLODIPine 2020-0 Yes 10mg Take 10 mg U nivers 10 mg 9-01 by mouth ity of tablet 16:40: daily. [address] aspirin 81 2020-0 Yes 81mg Take 81 mg U nivers mg EC 9-01 by mouth ity of tablet 16:40: daily. [address] sevelamer 2020-0 Yes 2400mg Take 2,400 Univers 800 mg 9-01 mg by ity of tablet 16:40: mouth 3 [place] [address] (three) Medical times [place] daily with meals. Insulin 2020-0 Yes 20U inject 20 Unive rs Lispro, 9-01 Units ity of Human, 16:40: under the [place] (HUMALOG) 27 skin 2 Medical 100 unit/mL (two) Branch cartridge times daily. NIFEdipine 2020-0 Yes 90mg Take 90 mg U nivers CC 90 mg SR 9-01 by mouth 2 it y of tablet 16:40: (two) [place] [address] times Medical daily. Branch Insulin 2020-0 Yes 25U inject 25 Unive rs Glargine 9-01 Units ity of ([place]AR 16:40: under the [place] as [place] 27 skin. Medical U-100 Branch INSULIN) 100 unit/mL (3 mL) injection amLODIPine 2020-0 Yes 10mg Take 10 mg U nivers 10 mg 9-01 by mouth ity of tablet 16:40: daily. [address] aspirin 81 2020-0 Yes 81mg Take 81 mg U nivers mg EC 9-01 by mouth ity of tablet 16:40: daily. [address] sevelamer 2020-0 Yes 2400mg Take 2,400 [facility] 800 mg 9-01 mg by ity of tablet 16:40: mouth 3 [place] [address] (three) Medical times [place] daily with meals. Insulin 2020-0 Yes 20U inject 20 Unive rs Lispro, 9-01 Units ity of Human, 16:40: under the [place] (HUMALOG) 27 skin 2 Medical 100 unit/mL (two) Branch cartridge times daily. NIFEdipine 2020-0 Yes 90mg Take 90 mg U nivers CC 90 mg SR 9-01 by mouth 2 it y of tablet 16:40: (two) [place] [address] times [facility] daily. Branch Insulin 2020-0 Yes 25U inject 25 Unive rs Glargine 9-01 Units ity of ([place] 16:40: under the [place] 27 skin. Medical U-100 Branch INSULIN) 100 unit/mL (3 mL) injection amLODIPine 2020-0 Yes 10mg Take 10 mg U nivers 10 mg 9-01 by mouth ity of tablet 16:40: daily. [address] aspirin 81 2020-0 Yes 81mg Take 81 mg U nivers mg EC 9-01 by mouth ity of tablet 16:40: daily. [address] Branch sevelamer 2020-0 Yes 2400mg Take 2,400 [facility] 800 mg 9-01 mg by ity of tablet 16:40: mouth 3 [place] [address] (three) Medical times [place] daily with meals. Insulin 2020-0 Yes 20U inject 20 Unive rs Lispro, 9-01 Units ity of Human, 16:40: under the [place] (HUMALOG) 27 skin 2 Medical 100 unit/mL (two) Branch cartridge times daily. NIFEdipine 2020-0 Yes 90mg Take 90 mg U nivers CC 90 mg SR 9-01 by mouth 2 it y of tablet 16:40: (two) [place] [address] times [facility] daily. Branch Insulin 2020-0 Yes 25U inject 25 Unive rs Glargine 9-01 Units ity of ([place] 16:40: under the [place] 27 skin. Medical U-100 Branch INSULIN) 100 unit/mL (3 mL) injection amLODIPine 2020-0 Yes 10mg Take 10 mg U nivers 10 mg 9-01 by mouth ity of tablet 16:40: daily. [address] aspirin 81 2020-0 Yes 81mg Take 81 mg U nivers mg EC 9-01 by mouth ity of tablet 16:40: daily. [address] sevelamer 2020-0 Yes 2400mg Take 2,400 [facility] 800 mg 9-01 mg by ity of tablet 16:40: mouth 3 [place] [address] (three) Medical times [place] daily with meals. Insulin 2020-0 Yes 20U inject 20 Unive rs Lispro, 9-01 Units ity of Human, 16:40: under the [place] (HUMALOG) 27 skin 2 Medical 100 unit/mL (two) Branch cartridge times daily. NIFEdipine 2020-0 Yes 90mg Take 90 mg U nivers CC 90 mg SR 9-01 by mouth 2 it y of tablet 16:40: (two) [place] [address] times Medical daily. Branch Insulin 2020-0 Yes 25U inject 25 Unive rs Glargine 9-01 Units ity of ([place] 16:40: under the [place] 27 skin. Medical U-100 Branch INSULIN) 100 unit/mL (3 mL) injection amLODIPine 2020-0 Yes 10mg Take 10 mg U nivers 10 mg 9-01 by mouth ity of tablet 16:40: daily. [address] Branch aspirin 81 2020-0 Yes 81mg Take 81 mg U nivers mg EC 9-01 by mouth ity of tablet 16:40: daily. [address] Branch sevelamer 2020-0 Yes 2400mg Take 2,400 [facility] 800 mg 9-01 mg by ity of tablet 16:40: mouth 3 [place] [address] (three) Medical times [place] daily with meals. Insulin 2020-0 Yes 20U inject 20 Unive rs Lispro, 9-01 Units ity of Human, 16:40: under the [place] (HUMALOG) 27 skin 2 Medical 100 unit/mL (two) Branch cartridge times daily. NIFEdipine 2020-0 Yes 90mg Take 90 mg U nivers CC 90 mg SR 9-01 by mouth 2 it y of tablet 16:40: (two) [place] [address] times Medical daily. Branch Insulin 2020-0 Yes 25U inject 25 Unive rs Glargine 9-01 Units ity of ([place] 16:40: under the [place] 27 skin. Medical U-100 Branch INSULIN) 100 unit/mL (3 mL) injection amLODIPine 2020-0 Yes 10mg Take 10 mg U nivers 10 mg 9-01 by mouth ity of tablet 16:40: daily. [address] aspirin 81 2020-0 Yes 81mg Take 81 mg U nivers mg EC 9-01 by mouth ity of tablet 16:40: daily. [address] Branch sevelamer 2020-0 Yes 2400mg Take 2,400 [facility] 800 mg 9-01 mg by ity of tablet 16:40: mouth 3 [place] [address] (three) Medical times [place] daily with meals. Insulin 2020-0 Yes 20U inject 20 Unive rs Lispro, 9-01 Units ity of Human, 16:40: under the [place] (HUMALOG) 27 skin 2 Medical 100 unit/mL (two) Branch cartridge times daily. NIFEdipine 2020-0 Yes 90mg Take 90 mg U nivers CC 90 mg SR 9-01 by mouth 2 it y of tablet 16:40: (two) [place] [address] times Medical daily. Branch Insulin 2020-0 Yes 25U inject 25 Unive rs Glargine 9-01 Units ity of ([place] 16:40: under the [place] 27 skin. Medical U-100 Branch INSULIN) 100 unit/mL (3 mL) injection amLODIPine 2020-0 Yes 10mg Take 10 mg U nivers 10 mg 9-01 by mouth ity of tablet 16:40: daily. [address] aspirin 81 2020-0 Yes 81mg Take 81 mg U nivers mg EC 9-01 by mouth ity of tablet 16:40: daily. [address] sevelamer 2020-0 Yes 2400mg Take 2,400 [facility] 800 mg 9-01 mg by ity of tablet 16:40: mouth 3 [place] [address] (three) Medical times [place] daily with meals. Insulin 2020-0 Yes 20U inject 20 Unive rs Lispro, 9-01 Units ity of Human, 16:40: under the [place] (HUMALOG) 27 skin 2 Medical 100 unit/mL (two) Branch cartridge times daily. NIFEdipine 2020-0 Yes 90mg Take 90 mg U nivers CC 90 mg SR 9-01 by mouth 2 it y of tablet 16:40: (two) [place] [address] times [facility] daily. Branch Insulin 2020-0 Yes 25U inject 25 Unive rs Glargine 9-01 Units ity of ([place] 16:40: under the [place] 27 skin. Medical U-100 Branch INSULIN) 100 unit/mL (3 mL) injection amLODIPine 2020-0 Yes 10mg Take 10 mg U nivers 10 mg 9-01 by mouth ity of tablet 16:40: daily. [address] aspirin 81 2020-0 Yes 81mg Take 81 mg U nivers mg EC 9-01 by mouth ity of tablet 16:40: daily. [address] sevelamer 2020-0 Yes 2400mg Take 2,400 [facility] 800 mg 9-01 mg by ity of tablet 16:40: mouth 3 [place] [address] (three) Medical times [place] daily with meals. Insulin 2020-0 Yes 20U inject 20 Unive rs Lispro, 9-01 Units ity of Human, 16:40: under the [place] (HUMALOG) 27 skin 2 Medical 100 unit/mL (two) Branch cartridge times daily. NIFEdipine 2020-0 Yes 90mg Take 90 mg U nivers CC 90 mg SR 9-01 by mouth 2 it y of tablet 16:40: (two) [place] [address] times [facility] daily. Branch Insulin 2020-0 Yes 25U inject 25 Unive rs Glargine 9-01 Units ity of ([place] 16:40: under the [place] 27 skin. Medical U-100 Branch INSULIN) 100 unit/mL (3 mL) injection amLODIPine 2020-0 Yes 10mg Take 10 mg U nivers 10 mg 9-01 by mouth ity of tablet 16:40: daily. [address] Branch aspirin 81 2020-0 Yes 81mg Take 81 mg U nivers mg EC 9-01 by mouth ity of tablet 16:40: daily. [address] Branch sevelamer 2020-0 Yes 2400mg Take 2,400 [facility] 800 mg 9-01 mg by ity of tablet 16:40: mouth 3 [place] [address] (three) Medical times [place] daily with meals. Insulin 2020-0 Yes 20U inject 20 Unive rs Lispro, 9-01 Units ity of Human, 16:40: under the [place] (HUMALOG) skin 2 Medical 100 unit/mL (two) Branch cartridge times daily. NIFEdipine 2020-0 Yes 90mg Take 90 mg U nivers CC 90 mg SR 9-01 by mouth 2 it y of tablet 16:40: (two) [place] [address] times Medical daily. Branch Insulin 2020-0 Yes 25U inject 25 Unive rs Glargine 9-01 Units ity of ([place] 16:40: under the [place] 27 skin. Medical U-100 Branch INSULIN) 100 unit/mL (3 mL) injection amLODIPine 2020-0 Yes 10mg Take 10 mg U nivers 10 mg 9-01 by mouth ity of tablet 16:40: daily. [address] aspirin 81 2020-0 Yes 81mg Take 81 mg U nivers mg EC 9-01 by mouth ity of tablet 16:40: daily. [address] Branch sevelamer 2020-0 Yes 2400mg Take 2,400 [facility] 800 mg 9-01 mg by ity of tablet 16:40: mouth 3 [place] [address] (three) Medical times [place] daily with meals. Insulin 2020-0 Yes 20U inject 20 Unive rs Lispro, 9-01 Units ity of Human, 16:40: under the [place] (HUMALOG) 27 skin 2 Medical 100 unit/mL (two) Branch cartridge times daily. NIFEdipine 2020-0 Yes 90mg Take 90 mg U nivers CC 90 mg SR 9-01 by mouth 2 it y of tablet 16:40: (two) [place] [address] times Medical daily. Branch Insulin 2020-0 Yes 25U inject 25 Unive rs Glargine 9-01 Units ity of ([place] 16:40: under the [place] 27 skin. Medical U-100 Branch INSULIN) 100 unit/mL (3 mL) injection amLODIPine 2020-0 Yes 10mg Take 10 mg U nivers 10 mg 9-01 by mouth ity of tablet 16:40: daily. [address] Branch aspirin 81 2020-0 Yes 81mg Take 81 mg U nivers mg EC 9-01 by mouth ity of tablet 16:40: daily. [address] Branch sevelamer 2020-0 Yes 2400mg Take 2,400 [facility] 800 mg 9-01 mg by ity of tablet 16:40: mouth 3 [place] [address] (three) Medical times [place] daily with meals. Insulin 2020-0 Yes 20U inject 20 Unive rs Lispro, 9-01 Units ity of Human, 16:40: under the [place] (HUMALOG) 27 skin 2 Medical 100 unit/mL (two) Branch cartridge times daily. NIFEdipine 2020-0 Yes 90mg Take 90 mg U nivers CC 90 mg SR 9-01 by mouth 2 it y of tablet 16:40: (two) [place] [address] times [facility] daily. Branch Insulin 2020-0 Yes 25U inject 25 Unive rs Glargine 9-01 Units ity of ([place] 16:40: under the [place] 27 skin. Medical U-100 Branch INSULIN) 100 unit/mL (3 mL) injection amLODIPine 2020-0 Yes 10mg Take 10 mg U nivers 10 mg 9-01 by mouth ity of tablet 16:40: daily. [address] aspirin 81 2020-0 Yes 81mg Take 81 mg U nivers mg EC 9-01 by mouth ity of tablet 16:40: daily. [address] Branch sevelamer 2020-0 Yes 2400mg Take 2,400 [facility] 800 mg 9-01 mg by ity of tablet 16:40: mouth 3 [place] [address] (three) Medical times Branch daily with meals. Insulin 2020-0 Yes 20U inject 20 Unive rs Lispro, 9-01 Units ity of Human, 16:40: under the [place] (HUMALOG) 27 skin 2 Medical 100 unit/mL (two) Branch cartridge times daily. NIFEdipine 2020-0 Yes 90mg Take 90 mg U nivers CC 90 mg SR 9-01 by mouth 2 it y of tablet 16:40: (two) [place] [address] times Medical daily. Branch Insulin 2020-0 Yes 25U inject 25 Unive rs Glargine 9-01 Units ity of ([place] 16:40: under the [place] 27 skin. Medical U-100 Branch INSULIN) 100 unit/mL (3 mL) injection amLODIPine 2020-0 Yes 10mg Take 10 mg U nivers 10 mg 9-01 by mouth ity of tablet 16:40: daily. [address] Branch aspirin 81 2020-0 Yes 81mg Take 81 mg U nivers mg EC 9-01 by mouth ity of tablet 16:40: daily. [address] Branch sevelamer 2020-0 Yes 2400mg Take 2,400 [facility] 800 mg 9-01 mg by ity of tablet 16:40: mouth 3 [place] [address] (three) Medical times [place] daily with meals. Insulin 2020-0 Yes 20U inject 20 Unive rs Lispro, 9-01 Units ity of Human, 16:40: under the [place] (HUMALOG) 27 skin 2 Medical 100 unit/mL (two) Branch cartridge times daily. NIFEdipine 2020-0 Yes 90mg Take 90 mg U nivers CC 90 mg SR 9-01 by mouth 2 it y of tablet 16:40: (two) [place] [address] times Medical daily. Branch Insulin 2020-0 Yes 25U inject 25 Unive rs Glargine 9-01 Units ity of ([place] 16:40: under the [place] 27 skin. Medical U-100 Branch INSULIN) 100 unit/mL (3 mL) injection amLODIPine 2020-0 Yes 10mg Take 10 mg U nivers 10 mg 9-01 by mouth ity of tablet 16:40: daily. [address] aspirin 81 2020-0 Yes 81mg Take 81 mg U nivers mg EC 9-01 by mouth ity of tablet 16:40: daily. [address] sevelamer 2020-0 Yes 2400mg Take 2,400 [facility] 800 mg 9-01 mg by ity of tablet 16:40: mouth 3 [place] [address] (three) Medical times [place] daily with meals. Insulin 2020-0 Yes 20U inject 20 Unive rs Lispro, 9-01 Units ity of Human, 16:40: under the [place] (HUMALOG) 27 skin 2 Medical 100 unit/mL (two) Branch cartridge times daily. NIFEdipine 2020-0 Yes 90mg Take 90 mg U nivers CC 90 mg SR 9-01 by mouth 2 it y of tablet 16:40: (two) [place] [address] times Medical daily. Branch Insulin 2020-0 Yes 25U inject 25 Unive rs Glargine 9-01 Units ity of ([place] 16:40: under the [place] 27 skin. Medical U-100 Branch INSULIN) 100 unit/mL (3 mL) injection amLODIPine 2020-0 Yes 10mg Take 10 mg U nivers 10 mg 9-01 by mouth ity of tablet 16:40: daily. [address] Branch aspirin 81 2020-0 Yes 81mg Take 81 mg U nivers mg EC 9-01 by mouth ity of tablet 16:40: daily. [address] Branch sevelamer 2020-0 Yes 2400mg Take 2,400 [facility] 800 mg 9-01 mg by ity of tablet 16:40: mouth 3 [place] [address] (three) Medical times [place] daily with meals. Insulin 2020-0 Yes 20U inject 20 Unive rs Lispro, 9-01 Units ity of Human, 16:40: under the [place] (HUMALOG) 27 skin 2 Medical 100 unit/mL (two) Branch cartridge times daily. NIFEdipine 2020-0 Yes 90mg Take 90 mg U nivers CC 90 mg SR 9-01 by mouth 2 it y of tablet 16:40: (two) [place] [address] times Medical daily. Branch Insulin 2020-0 Yes 25U inject 25 Unive rs Glargine 9-01 Units ity of ([place] 16:40: under the [place] 27 skin. Medical U-100 Branch INSULIN) 100 unit/mL (3 mL) injection amLODIPine 2020-0 Yes 10mg Take 10 mg U nivers 10 mg 9-01 by mouth ity of tablet 16:40: daily. [address] Branch aspirin 81 2020-0 Yes 81mg Take 81 mg U nivers mg EC 9-01 by mouth ity of tablet 16:40: daily. [address] Branch sevelamer 2020-0 Yes 2400mg Take 2,400 [facility] 800 mg 9-01 mg by ity of tablet 16:40: mouth 3 [place] [address] (three) Medical times [place] daily with meals. Insulin 2020-0 Yes 20U inject 20 Unive rs Lispro, 9- Units ity of Human, 16:40: under the [place] (HUMALOG) 27 skin 2 Medical 100 unit/mL (two) Branch cartridge times daily. NIFEdipine 2020-0 Yes 90mg Take 90 mg U nivers CC 90 mg SR 11-15 by mouth 2 it y of tablet 16:40: (two) [place] 27 times Medical daily. Branch Insulin 2020-0 Yes 25U inject 25 Unive rs Glargine - Units ity of ([place] 16:40: under the [place] as [place] 27 skin. Medical U-100 Branch INSULIN) 100 unit/mL (3 mL) injection amLODIPine 2020-0 Yes 10mg Take 10 mg U nivers 10 mg 9-01 by mouth ity of tablet 16:40: daily. [address] Branch aspirin 81 2020-0 Yes 81mg Take 81 mg U nivers mg EC 9-01 by mouth ity of tablet 16:40: daily. [address] Branch sevelamer 2020-0 Yes 2400mg Take 2,400 [facility] 800 mg 9- mg by ity of tablet 16:40: mouth 3 [place] [address] (three) Medical times Branch daily with meals. aspirin 81 2018-03 Yes 81mg Take 81 mg U nivers mg EC 1-19 by mouth ity of tablet 20:34: daily. [address] aspirin 81 2018-03 Yes 81mg Take 81 mg U nivers mg EC 1-19 by mouth ity of tablet 20:34: daily. [address] aspirin 81 2018-03 Yes 81mg Take 81 mg U nivers mg EC 1-19 by mouth ity of tablet 20:34: daily. [address] Branch atorvastati 2018-03 Yes [id number] 40mg Take 1 Univers n 40 mg 1-19 tablet by ity of tablet 00:00: mouth at [place] [address] bedtime. [facility] Branch atorvastati 2018-03 Yes [id number] 40mg Take 1 Univers n 40 mg 1-19 tablet by ity of tablet 00:00: mouth at [place] [address] bedtime. [facility] Branch atorvastati 2018-03 Yes [id number] 40mg Take 1 Univers n 40 mg 1-19 tablet by ity of tablet 00:00: mouth at [place] [address] bedtime. Medical Branch atorvastati 2018-03 Yes [id number] 40mg Take 1 Univers n 40 mg 1-19 tablet by ity of tablet 00:00: mouth at [place] 00 bedtime. Medical Branch atorvasta 2018-03 Yes [id number] 40mg Take 1 Univers n 40 mg 1-19 tablet by ity of tablet 00:00: mouth at [place] 00 bedtime. Medical Branch atorvasta 2018-03 Yes [id number] 40mg Take 1 Univers n 40 mg 1-19 tablet by ity of tablet 00:00: mouth at [place] 00 bedtime. Medical Branch atorvasta 2018-03 Yes [id number] 40mg Take 1 Univers n 40 mg 1-19 tablet by ity of tablet 00:00: mouth at [place] 00 bedtime. Medical Branch atorvasta 2018-03 Yes [id number] 40mg Take 1 Univers n 40 mg 1-19 tablet by ity of tablet 00:00: mouth at [place] bedtime. Medical Branch atorvasta 2018-03 Yes [id number] 40mg Take 1 Univers n 40 mg 1-19 tablet by ity of tablet 00:00: mouth at [place] bedtime. Medical Branch atorvasta 2018-03 Yes [id number] 40mg Take 1 Univers n 40 mg 1-19 tablet by ity of tablet 00:00: mouth at [place] bedtime. Medical Branch atorvasta 2018-03 Yes [id number] 40mg Take 1 Univers n 40 mg 1-19 tablet by ity of tablet 00:00: mouth at [place] [address] bedtime. Medical Branch atorvasta 2018-03 Yes [id number] 40mg Take 1 Univers n 40 mg 1-19 tablet by ity of tablet 00:00: mouth at [place] [address] bedtime. Medical Branch atorvasta 2018-03 Yes [id number] 40mg Take 1 Univers n 40 mg 1-19 tablet by ity of tablet 00:00: mouth at [place] 00 bedtime. Medical Branch atorvasta 2018-03 Yes [id number] 40mg Take 1 Univers n 40 mg 1-19 tablet by ity of tablet 00:00: mouth at [place] 00 bedtime. Medical Branch atorvasta 2018-03 Yes [id number] 40mg Take 1 Univers n 40 mg 1-19 tablet by ity of tablet 00:00: mouth at [place] 00 bedtime. Medical Branch atorvasta 2018-03 Yes [id number] 40mg Take 1 Univers n 40 mg 1-19 tablet by ity of tablet 00:00: mouth at [place] [address] bedtime. Medical Branch atorvasta 2018-03 Yes [id number] 40mg Take 1 Univers n 40 mg 1-19 tablet by ity of tablet 00:00: mouth at [place] [address] bedtime. Medical Branch atorvasta 2018-03 Yes [id number] 40mg Take 1 Univers n 40 mg 1-19 tablet by ity of tablet 00:00: mouth at [place] [address] bedtime. Medical Branch atorvasta 2018-03 Yes [id number] 40mg Take 1 Univers n 40 mg 1-19 tablet by ity of tablet 00:00: mouth at [place] [address] bedtime. Medical Branch atorvasta 2018-03 Yes [id number] 40mg Take 1 Univers n 40 mg 1-19 tablet by ity of tablet 00:00: mouth at [place] [address] bedtime. Medical Branch atorvasta 2018-03 Yes [id number] 40mg Take 1 Univers n 40 mg 1-19 tablet by ity of tablet 00:00: mouth at [place] [address] bedtime. Medical Branch atorvasta 2018-03 Yes [id number] 40mg Take 1 Univers n 40 mg 1-19 tablet by ity of tablet 00:00: mouth at [place] [address] bedtime. Medical Branch atorvasta 2018-03 Yes [id number] 40mg Take 1 Univers n 40 mg 1-19 tablet by ity of tablet 00:00: mouth at [place] [address] bedtime. Medical Branch atorvasta 2018-03 Yes [id number] 40mg Take 1 Univers n 40 mg 1-19 tablet by ity of tablet 00:00: mouth at [place] [address] bedtime. Medical Branch atorvasta 2018-03 Yes [id number] 40mg Take 1 Univers n 40 mg 1-19 tablet by ity of tablet 00:00: mouth at [place] [address] bedtime. Medical Branch atorvasta 2018-03 Yes [id number] 40mg Take 1 Univers n 40 mg 1-19 tablet by ity of tablet 00:00: mouth at [place] [address] bedtime. Medical Branch atorvasta 2018-03 Yes [id number] 40mg Take 1 Univers n 40 mg 1-19 tablet by ity of tablet 00:00: mouth at [place] [address] bedtime. Medical Branch atorvasta 2018-03 Yes [id number] 40mg Take 1 Univers n 40 mg 1-19 tablet by ity of tablet 00:00: mouth at [place] 00 bedtime. [facility] amLODIPine 2018-03 Yes 10mg Take 10 mg U nivers 10 mg 0-31 by mouth ity of tablet 18:16: daily. [address] amLODIPine 2018-03 Yes 10mg Take 10 mg U nivers 10 mg 0-31 by mouth ity of tablet 18:16: daily. [address] amLODIPine 2018-03 Yes 10mg Take 10 mg U nivers 10 mg 0-31 by mouth ity of tablet 18:16: daily. [address] ramipril 10 2018-03 Yes 10mg Take 10 mg Univers mg capsule 0-31 by mouth ity o f 18:16: daily. [address] ramipril 10 2018-03 Yes 10mg Take 10 mg Univers mg capsule 0-31 by mouth ity o f 18:16: daily. [address] ramipril 10 2018-03 Yes 10mg Take 10 mg Univers mg capsule 0-31 by mouth ity o f 18:16: daily. [address] carvedilol 2018-03 Yes 25mg Take 25 mg U nivers 25 mg 0-31 by mouth 2 ity of tablet 18:15: (two) [place] 43 times Medical daily with Branch meals. carvedilol 2018-03 Yes 25mg Take 25 mg U nivers 25 mg 0-31 by mouth 2 ity of tablet 18:15: (two) [place] 43 times Medical daily with Branch meals. carvedilol 2018-03 Yes 25mg Take 25 mg U nivers 25 mg 0-31 by mouth 2 ity of tablet 18:15: (two) [place] 43 times Medical daily with Branch meals. NIFEdipine 2018-03 Yes 90mg Take 90 mg U nivers CC 90 mg SR 0-29 by mouth 2 it y of tablet 16:08: (two) [place] 21 times Medical daily. Branch NIFEdipine 2018-03 Yes 90mg Take 90 mg U nivers CC 90 mg SR 0-29 by mouth 2 it y of tablet 16:08: (two) [place] 21 times Medical daily. Branch NIFEdipine 2018-03 Yes 90mg Take 90 mg U nivers CC 90 mg SR 0-29 by mouth 2 it y of tablet 16:08: (two) [place] 21 times Medical daily. Branch calcium 2018-03 Yes 667mg Take 667 Unive rs acetate 667 0-29 mg by ity of mg Tab 15:48: mouth 3 [place] 17 (three) Medical times Branch daily with meals. ALPRAZolam 2018-03 Yes .25mg Take 0.25 U nivers (XANAX) 0-29 mg by ity of 0.25 mg 15:48: mouth 2 [place] tablet 17 (two) Medical times Branch daily. Insulin 2018-03 Yes inject Univers Lispro, 0-29 under the ity of Human, 15:48: skin. 10 [place] (HUMALOG) 17 units in Medica l 100 unit/mL am and 15 Bra nch cartridge units in pm Insulin 2018-03 Yes 24U inject 24 Unive rs Glargine 0-29 Units ity of ([place] 15:48: under the [place] 17 skin. Medical U-100 Branch INSULIN) 100 unit/mL (3 mL) injection calcium 2018-03 Yes 667mg Take 667 Unive rs acetate 667 0-29 mg by ity of mg Tab 15:48: mouth 3 [place] 17 (three) Medical times Branch daily with meals. ALPRAZolam 2018-03 Yes .25mg Take 0.25 U nivers (XANAX) 0-29 mg by ity of 0.25 mg 15:48: mouth 2 [place] tablet 17 (two) Medical times Branch daily. Insulin 2018-03 Yes inject Univers Lispro, 0-29 under the ity of Human, 15:48: skin. 10 [place] (HUMALOG) 17 units in Medica l 100 unit/mL am and 15 Bra nch cartridge units in pm Insulin 2018-03 Yes 24U inject 24 Unive rs Glargine 0-29 Units ity of ([place] 15:48: under the [place] 17 skin. Medical U-100 Branch INSULIN) 100 unit/mL (3 mL) injection calcium 2018-03 Yes 667mg Take 667 Unive rs acetate 667 0-29 mg by ity of mg Tab 15:48: mouth 3 [place] 17 (three) Medical times Branch daily with meals. ALPRAZolam 2018-03 Yes .25mg Take 0.25 U nivers (XANAX) 0-29 mg by ity of 0.25 mg 15:48: mouth 2 [place] tablet 17 (two) Medical times Branch daily. Insulin 2018-03 Yes inject Univers Lispro, 0-29 under the ity of Human, 15:48: skin. 10 [place] (HUMALOG) 17 units in Medica l 100 unit/mL am and 15 Bra nch cartridge units in pm Insulin 2019- Yes 24U inject 24 Unive rs Glargine 0-29 Units ity of ([place] 15:48: under the [place] 17 skin. Medical U-100 Branch INSULIN) 100 unit/mL (3 mL) injection tiZANidine Yes Univers 2 mg tablet 4-26 ity of 00:00: [place] [facility] tiZANidine 0 Yes Univers 2 mg tablet 4-26 ity of 00:00: [place] [facility] tiZANidine 0 Yes Univers 2 mg tablet 4-26 ity of 00:00: [place] [facility] tiZANidine 0 Yes Univers 2 mg tablet 4-26 ity of 00:00: [address] tiZANidine 0 Yes Univers 2 mg tablet 4-26 ity of 00:00: [address] tiZANidine 0 Yes Univers 2 mg tablet 4-26 ity of 00:00: [address] tiZANidine 0 Yes Univers 2 mg tablet 4-26 ity of 00:00: [address] tiZANidine 0 Yes Univers 2 mg tablet 4-26 ity of 00:00: [address] tiZANidine 0 Yes Univers 2 mg tablet 4-26 ity of 00:00: [address] tiZANidine 0 Yes Univers 2 mg tablet 4-26 ity of 00:00: [place] [facility] tiZANidine 0 Yes Univers 2 mg tablet 4-26 ity of 00:00: [address] tiZANidine 0 Yes Univers 2 mg tablet 4-26 ity of 00:00: [address] tiZANidine 0 Yes Univers 2 mg tablet 4-26 ity of 00:00: [address] tiZANidine 0 Yes Univers 2 mg tablet 4-26 ity of 00:00: [address] tiZANidine 0 Yes Univers 2 mg tablet 4-26 ity of 00:00: [address] tiZANidine 0 Yes Univers 2 mg tablet 4-26 ity of 00:00: [place] [address] Medical Branch tiZANidine 2019-0 Yes Univers 2 mg tablet 4-26 ity of 00:00: [place] [address] Medical Branch tiZANidine 2019-0 Yes Univers 2 mg tablet 4-26 ity of 00:00: [place] [address] Medical Branch tiZANidine 2019-0 Yes Univers 2 mg tablet 4-26 ity of 00:00: [place] [address] Medical Branch tiZANidine 2019-0 Yes Univers 2 mg tablet 4-26 ity of 00:00: [place] [address] Medical Branch tiZANidine 2019-0 Yes Univers 2 mg tablet 4-26 ity of 00:00: [place] [address] [facility] tiZANidine 2019-0 Yes [facility] 2 mg tablet 4-26 ity of 00:00: [place] [address] [facility] tiZANidine 2019-0 Yes Univers 2 mg tablet 4-26 ity of 00:00: [place] [address] [facility] tiZANidine 2019-0 Yes [facility] 2 mg tablet 4-26 ity of 00:00: [place] [address] [facility] tiZANidine 2019-0 Yes Univers 2 mg tablet 4-26 ity of 00:00: [place] [address] [facility] tiZANidine 2019-0 Yes Univers 2 mg tablet 4-26 ity of 00:00: [place] [address] [facility] tiZANidine 2019-0 Yes [facility] 2 mg tablet 4-26 ity of 00:00: [place] [address] [facility] tiZANidine 2019-0 Yes [facility] 2 mg tablet 4-26 ity of 00:00: [place] [address] [facility] tiZANidine 2019-0 Yes [facility] 2 mg tablet 4-26 ity of 00:00: [place] [address] [facility] tiZANidine 2019-0 Yes [facility] 2 mg tablet 4-26 ity of 00:00: [place] [address] [facility] tiZANidine 2019-0 Yes [facility] 2 mg tablet 4-26 ity of 00:00: [place] [address] [facility] tiZANidine 2019-0 Yes [facility] 2 mg tablet 4-26 ity of 00:00: [place] [address] [facility] tiZANidine 2019-0 Yes [facility] 2 mg tablet 4-26 ity of 00:00: [place] [address] [facility] tiZANidine 2019-0 Yes [facility] 2 mg tablet 4-26 ity of 00:00: [place] [address] [facility] tiZANidine 2019-0 Yes [facility] 2 mg tablet 4-26 ity of 00:00: [place] [facility] tiZANidine 2019-0 Yes [facility] 2 mg tablet 4-26 ity of 00:00: [place] [facility] tiZANidine 2019-0 Yes [facility] 2 mg tablet 4-26 ity of 00:00: [place] [facility] Insulin 2017-03 Yes 24U inject 24 Unive rs Glargine 0-10 Units ity of (BASAGLAR 02:35: under the [place] as KWIKPEN 48 skin. Medical U-100 Branch INSULIN) 100 unit/mL (3 mL) injection Insulin 2017-03 Yes 24U inject 24 Unive rs Glargine 0-10 Units ity of (BASAGLAR 02:35: under the [place] KWIKPEN 48 skin. Medical U-100 Branch INSULIN) 100 unit/mL (3 mL) injection Insulin 2017-03 Yes 24U inject 24 Unive rs Glargine 0-10 Units ity of (BASAGLAR 02:35: under the [place] as KWIKPEN 48 skin. Medical U-100 Branch INSULIN) 100 unit/mL (3 mL) injection Insulin 2017-03 Yes 24U inject 24 Unive rs Glargine 0-10 Units ity of (BASAGLAR 02:35: under the [place] as KWIKPEN 48 skin. Medical U-100 Branch INSULIN) 100 unit/mL (3 mL) injection Insulin 2017-03 Yes 24U inject 24 Unive rs Glargine 0-10 Units ity of (BASAGLAR 02:35: under the [place] as KWIKPEN 48 skin. Medical U-100 Branch INSULIN) 100 unit/mL (3 mL) injection Insulin 2017-03 Yes 24U inject 24 Unive rs Glargine 0-10 Units ity of (BASAGLAR 02:35: under the [place] as KWIKPEN 48 skin. Medical U-100 Branch INSULIN) 100 unit/mL (3 mL) injection Insulin 2017-03 Yes 24U inject 24 Unive rs Glargine 0-10 Units ity of (BASAGLAR 02:35: under the [place] as KWIKPEN 48 skin. Medical U-100 Branch INSULIN) 100 unit/mL (3 mL) injection Insulin 2017-03 Yes 24U inject 24 Unive rs Glargine 0-10 Units ity of (BASAGLAR 02:35: under the [place] as KWIKPEN 48 skin. Medical U-100 Branch INSULIN) 100 unit/mL (3 mL) injection Insulin 2017-03 Yes 24U inject 24 Unive rs Glargine 0-10 Units ity of (BASAGLAR 02:35: under the [place] as KWIKPEN 48 skin. Medical U-100 Branch INSULIN) 100 unit/mL (3 mL) injection calcium 2017-03 Yes 667mg Take 667 Unive rs acetate 667 0-09 mg by ity of mg Tab 20:45: mouth 3 [place] 13 (three) Medical times Branch daily with meals. ALPRAZolam 2017-03 Yes .25mg Take 0.25 U nivers (XANAX) 0-09 mg by ity of 0.25 mg 20:45: mouth 2 [place] tablet 13 (two) Medical times Branch daily. Insulin 2017-03 Yes inject Univers Lispro, 0-09 under the ity of Human, 20:45: skin. 10 [place] (HUMALOG) 13 units in Medica l 100 unit/mL am and 15 Bra nch cartridge units in pm NIFEdipine 2017-03 Yes 90mg Take 90 mg U nivers CC 90 mg SR 0-09 by mouth 2 it y of tablet 20:45: (two) [place] 13 times Medical daily. Branch calcium 2017-03 Yes 667mg Take 667 Unive rs acetate 667 0-09 mg by ity of mg Tab 20:45: mouth 3 [place] 13 (three) Medical times Branch daily with meals. ALPRAZolam 2017-03 Yes .25mg Take 0.25 U nivers (XANAX) 0-09 mg by ity of 0.25 mg 20:45: mouth 2 [place] tablet 13 (two) Medical times Branch daily. calcium 2017-03 Yes 667mg Take 667 Unive rs acetate 667 0-09 mg by ity of mg Tab 20:45: mouth 3 [place] 13 (three) Medical times Branch daily with meals. ALPRAZolam 2017-03 Yes .25mg Take 0.25 U nivers (XANAX) 0-09 mg by ity of 0.25 mg 20:45: mouth 2 [place] tablet 13 (two) Medical times Branch daily. Insulin 2017-03 Yes inject Univers Lispro, 0-09 under the ity of Human, 20:45: skin. 10 [place] (HUMALOG) 13 units in Medica l 100 unit/mL am and 15 Bra nch cartridge units in pm Insulin 2017-03 Yes inject Univers Lispro, 0-09 under the ity of Human, 20:45: skin. 10 [place] (HUMALOG) 13 units in Medica l 100 unit/mL am and 15 Bra nch cartridge units in pm NIFEdipine 2017-03 Yes 90mg Take 90 mg U nivers CC 90 mg SR 0-09 by mouth 2 it y of tablet 20:45: (two) [place] 13 times Medical daily. Branch NIFEdipine 2017-03 Yes 90mg Take 90 mg U nivers CC 90 mg SR 0-09 by mouth 2 it y of tablet 20:45: (two) [place] 13 times Medical daily. Branch calcium 2017-03 Yes 667mg Take 667 Unive rs acetate 667 0-09 mg by ity of mg Tab 20:45: mouth 3 [place] 13 (three) Medical times Branch daily with meals. ALPRAZolam 2017-03 Yes .25mg Take 0.25 U nivers (XANAX) 0-09 mg by ity of 0.25 mg 20:45: mouth 2 [place] tablet 13 (two) Medical times Branch daily. Insulin 2017-03 Yes inject Univers Lispro, 0-09 under the ity of Human, 20:45: skin. 10 [place] (HUMALOG) 13 units in Medica l 100 unit/mL am and 15 Bra nch cartridge units in pm NIFEdipine 2017-03 Yes 90mg Take 90 mg U nivers CC 90 mg SR 0-09 by mouth 2 it y of tablet 20:45: (two) [place] 13 times Medical daily. Branch calcium 2017-03 Yes 667mg Take 667 Unive rs acetate 667 0-09 mg by ity of mg Tab 20:45: mouth 3 [place] 13 (three) Medical times Branch daily with meals. ALPRAZolam 2017-03 Yes .25mg Take 0.25 U nivers (XANAX) 0-09 mg by ity of 0.25 mg 20:45: mouth 2 [place] tablet 13 (two) Medical times Branch daily. Insulin 2017-03 Yes inject Univers Lispro, 0-09 under the ity of Human, 20:45: skin. 10 [place] (HUMALOG) 13 units in Medica l 100 unit/mL am and 15 Bra nch cartridge units in pm NIFEdipine 2017-03 Yes 90mg Take 90 mg U nivers CC 90 mg SR 0-09 by mouth 2 it y of tablet 20:45: (two) [place] 13 times Medical daily. Branch calcium 2017-03 Yes 667mg Take 667 Unive rs acetate 667 0-09 mg by ity of mg Tab 20:45: mouth 3 [place] 13 (three) Medical times Branch daily with meals. ALPRAZolam 2017-03 Yes .25mg Take 0.25 U nivers (XANAX) 0-09 mg by ity of 0.25 mg 20:45: mouth 2 [place] tablet 13 (two) Medical times Branch daily. Insulin 2017-03 Yes inject Univers Lispro, 0-09 under the ity of Human, 20:45: skin. 10 [place] (HUMALOG) 13 units in Medica l 100 unit/mL am and 15 Bra nch cartridge units in pm NIFEdipine 2017-03 Yes 90mg Take 90 mg U nivers CC 90 mg SR 0-09 by mouth 2 it y of tablet 20:45: (two) [place] 13 times Medical daily. Branch calcium 2017-03 Yes 667mg Take 667 Unive rs acetate 667 0-09 mg by ity of mg Tab 20:45: mouth 3 [place] [address] (three) Medical times Branch daily with meals. ALPRAZolam 2017-03 Yes .25mg Take 0.25 U nivers (XANAX) 0-09 mg by ity of 0.25 mg 20:45: mouth 2 [place] tablet 13 (two) Medical times Branch daily. Insulin 2017-03 Yes inject Univers Lispro, 0-09 under the ity of Human, 20:45: skin. 10 [place] (HUMALOG) 13 units in Medica l 100 unit/mL am and 15 Bra nch cartridge units in pm NIFEdipine 2017-03 Yes 90mg Take 90 mg U nivers CC 90 mg SR 0-09 by mouth 2 it y of tablet 20:45: (two) [place] 13 times Medical daily. Branch calcium 2017-03 Yes 667mg Take 667 Unive rs acetate 667 0-09 mg by ity of mg Tab 20:45: mouth 3 [place] 13 (three) Medical times Branch daily with meals. ALPRAZolam 2017-03 Yes .25mg Take 0.25 U nivers (XANAX) 0-09 mg by ity of 0.25 mg 20:45: mouth 2 [place] tablet 13 (two) Medical times Branch daily. Insulin 2017-03 Yes inject Univers Lispro, 0-09 under the ity of Human, 20:45: skin. 10 [place] (HUMALOG) 13 units in Medica l 100 unit/mL am and 15 Bra nch cartridge units in pm NIFEdipine 2017-03 Yes 90mg Take 90 mg U nivers CC 90 mg SR 0-09 by mouth 2 it y of tablet 20:45: (two) [place] 13 times Medical daily. Branch calcium 2017-03 Yes 667mg Take 667 Unive rs acetate 667 0-09 mg by ity of mg Tab 20:45: mouth 3 [place] 13 (three) Medical times Branch daily with meals. ALPRAZolam 2017-03 Yes .25mg Take 0.25 U nivers (XANAX) 0-09 mg by ity of 0.25 mg 20:45: mouth 2 [place] tablet 13 (two) Medical times Branch daily. Insulin 2017-03 Yes inject Univers Lispro, 0-09 under the ity of Human, 20:45: skin. 10 [place] (HUMALOG) 13 units in Medica l 100 unit/mL am and 15 Bra nch cartridge units in pm NIFEdipine 2017-03 Yes 90mg Take 90 mg U nivers CC 90 mg SR 0-09 by mouth 2 it y of tablet 20:45: (two) [place] 13 times Medical daily. [place] Immunizations Ordered Filled Immunization Date Status Comments [facility] e Immunization Name Name Influenza Virus 2020-01-16 Completed Universit y of Vaccine 00:00:00 [facility] Influenza Virus 2020-01-16 Completed Universit y of Vaccine 00:00:00 [facility] Influenza Virus 2020-01-16 Completed Universit y of Vaccine 00:00:00 [facility] Influenza Virus 2020-01-16 Completed Universit y of Vaccine 00:00:00 [facility] Influenza Virus 2020-01-16 Completed Universit y of Vaccine 00:00:00 [facility] Influenza Virus 2020-01-16 Completed Universit y of Vaccine 00:00:00 [facility] Influenza Virus 2020-01-16 Completed Universit y of Vaccine 00:00:00 [facility] Influenza Virus 2020-01-16 Completed Universit y of Vaccine 00:00:00 [facility] Influenza Virus 2020-01-16 Completed Universit y of Vaccine 00:00:00 [facility] Influenza Virus 2020-01-16 Completed Universit y of Vaccine 00:00:00 [facility] Influenza Virus 2020-01-16 Completed Universit y of Vaccine 00:00:00 [facility] Influenza Virus 2020-01-16 Completed Universit y of Vaccine 00:00:00 [facility] Influenza Virus 2020-01-16 Completed Universit y of Vaccine 00:00:00 [facility] Influenza Virus 2020-01-16 Completed Universit y of Vaccine 00:00:00 [facility] Influenza Virus 2020-01-16 Completed Universit y of Vaccine 00:00:00 [facility] Influenza Virus 2020-01-16 Completed Universit y of Vaccine 00:00:00 [facility] Influenza Virus 2020-01-16 Completed Universit y of Vaccine 00:00:00 [facility] Influenza Virus 2020-01-16 Completed Universit y of Vaccine 00:00:00 [facility] Influenza Virus 2020-01-16 Completed Universit y of Vaccine 00:00:00 [facility] Influenza Virus 2016-11-27 Completed Universit y of Vaccine 00:00:00 [facility] Influenza Virus 2016-11-27 Completed Universit y of Vaccine 00:00:00 [facility] Influenza Virus 2016-11-27 Completed Universit y of Vaccine 00:00:00 [facility] Influenza Virus 2016-11-27 Completed Universit y of Vaccine 00:00:00 [facility] Influenza Virus 2016-11-27 Completed Universit y of Vaccine 00:00:00 [facility] Influenza Virus 2016-11-27 Completed Universit y of Vaccine 00:00:00 [facility] Influenza Virus 2016-11-27 Completed Universit y of Vaccine 00:00:00 [facility] Influenza Virus 2016-11-27 Completed Universit y of Vaccine 00:00:00 [facility] Influenza Virus 2016-11-27 Completed Universit y of Vaccine 00:00:00 [facility] Influenza Virus 2016-11-27 Completed Universit y of Vaccine 00:00:00 [facility] Influenza Virus 2016-11-27 Completed Universit y of Vaccine 00:00:00 [facility] Influenza Virus 2016-11-27 Completed Universit y of Vaccine 00:00:00 [facility] Influenza Virus 2016-11-27 Completed Universit y of Vaccine 00:00:00 [facility] Influenza Virus 2016-11-27 Completed Universit y of Vaccine 00:00:00 [facility] Influenza Virus 2016-11-27 Completed Universit y of Vaccine 00:00:00 [facility] Influenza Virus 2016-11-27 Completed Universit y of Vaccine 00:00:00 [facility] Influenza Virus 2016-11-27 Completed Universit y of Vaccine 00:00:00 [facility] Influenza Virus 2016-11-27 Completed Universit y of Vaccine 00:00:00 [facility] Influenza Virus 2016-11-27 Completed Universit y of Vaccine 00:00:00 [facility] Influenza Virus 2016-11-27 Completed Universit y of Vaccine 00:00:00 [facility] Influenza Virus 2016-11-27 Completed Universit y of Vaccine 00:00:00 [facility] Influenza Virus 2016-11-27 Completed Universit y of Vaccine 00:00:00 [facility] Influenza Virus 2016-11-27 Completed Universit y of Vaccine 00:00:00 [facility] Influenza Virus 2016-11-27 Completed Universit y of Vaccine 00:00:00 [facility] Influenza Virus 2016-11-27 Completed Universit y of Vaccine 00:00:00 [facility] Influenza Virus 2016-11-27 Completed Universit y of Vaccine 00:00:00 [facility] Influenza Virus 2016-11-27 Completed Universit y of Vaccine 00:00:00 [facility] Influenza Virus 2016-11-27 Completed Universit y of Vaccine 00:00:00 [facility] Influenza Virus 2016-11-27 Completed Universit y of Vaccine 00:00:00 [facility] Influenza Virus 2016-11-27 Completed Universit y of Vaccine 00:00:00 [facility] Influenza Virus 2016-11-27 Completed Universit y of Vaccine 00:00:00 [facility] Influenza Virus 2016-11-27 Completed Universit y of Vaccine 00:00:00 [facility] Influenza Virus 2016-11-27 Completed Universit y of Vaccine 00:00:00 [facility] Influenza Virus 2016-11-27 Completed Universit y of Vaccine 00:00:00 [facility] Influenza Virus 2016-11-27 Completed Universit y of Vaccine 00:00:00 [facility] Influenza Virus 2016-11-27 Completed Universit y of Vaccine 00:00:00 [facility] Influenza Virus 2016-11-27 Completed Universit y of Vaccine 00:00:00 [facility] Pneumococcal 13 2015-05-12 Completed Universit y of Conjugate, PCV13 00:00:00 [place] [facility] (Prevnar 13) Branch Pneumococcal 13 2015-05-12 Completed Universit y of Conjugate, PCV13 00:00:00 [place] [facility] (Prevnar 13) Branch Pneumococcal 13 2015-05-12 Completed Universit y of Conjugate, PCV13 00:00:00 [place] [facility] (Prevnar 13) Branch Pneumococcal 13 2015-05-12 Completed Universit y of Conjugate, PCV13 00:00:00 [place] [facility] (Prevnar 13) Branch Pneumococcal 13 2015-05-12 Completed Universit y of Conjugate, PCV13 00:00:00 [place] [facility] (Prevnar 13) Branch Pneumococcal 13 2015-05-12 Completed Universit y of Conjugate, PCV13 00:00:00 [place] [facility] (Prevnar 13) Branch Pneumococcal 13 2015-05-12 Completed Universit y of Conjugate, PCV13 00:00:00 [place] [facility] (Prevnar 13) Branch Pneumococcal 13 2015-05-12 Completed Universit y of Conjugate, PCV13 00:00:00 [place] [facility] (Prevnar 13) Branch Pneumococcal 13 2015-05-12 Completed Universit y of Conjugate, PCV13 00:00:00 [place] [facility] (Prevnar 13) Branch Pneumococcal 13 2015-05-12 Completed Universit y of Conjugate, PCV13 00:00:00 [place] [facility] (Prevnar 13) Branch Pneumococcal 13 2015-05-12 Completed Universit y of Conjugate, PCV13 00:00:00 [place] [facility] (Prevnar 13) Branch Pneumococcal 13 2015-05-12 Completed Universit y of Conjugate, PCV13 00:00:00 [place] [facility] (Prevnar 13) Branch Pneumococcal 13 2015-05-12 Completed Universit y of Conjugate, PCV13 00:00:00 [place] [facility] (Prevnar 13) Branch Pneumococcal 13 2015-05-12 Completed Universit y of Conjugate, PCV13 00:00:00 [place] [facility] (Prevnar 13) Branch Pneumococcal 13 2015-05-12 Completed Universit y of Conjugate, PCV13 00:00:00 [place] [facility] (Prevnar 13) Branch Pneumococcal 13 2015-05-12 Completed Universit y of Conjugate, PCV13 00:00:00 [place] [facility] (Prevnar 13) Branch Pneumococcal 13 2015-05-12 Completed Universit y of Conjugate, PCV13 00:00:00 [place] [facility] (Prevnar 13) Branch Pneumococcal 13 2015-05-12 Completed Universit y of Conjugate, PCV13 00:00:00 [place] [facility] (Prevnar 13) Branch Pneumococcal 13 2015-05-12 Completed Universit y of Conjugate, PCV13 00:00:00 [place] [facility] (Prevnar 13) Branch Pneumococcal 13 2015-05-12 Completed Universit y of Conjugate, PCV13 00:00:00 [place] [facility] (Prevnar 13) Branch Pneumococcal 13 2015-05-12 Completed Universit y of Conjugate, PCV13 00:00:00 [place] [facility] (Prevnar 13) Branch Pneumococcal 13 2015-05-12 Completed Universit y of Conjugate, PCV13 00:00:00 [place] [facility] (Prevnar 13) Branch Pneumococcal 13 2015-05-12 Completed Universit y of Conjugate, PCV13 00:00:00 [place] [facility] (Prevnar 13) Branch Pneumococcal 13 2015-05-12 Completed Universit y of Conjugate, PCV13 00:00:00 [place] [facility] (Prevnar 13) Branch Pneumococcal 13 2015-05-12 Completed Universit y of Conjugate, PCV13 00:00:00 [place] [facility] (Prevnar 13) Branch Pneumococcal 13 2015-05-12 Completed Universit y of Conjugate, PCV13 00:00:00 [place] [facility] (Prevnar 13) Branch Pneumococcal 13 2015-05-12 Completed Universit y of Conjugate, PCV13 00:00:00 [place] [facility] (Prevnar 13) Branch Pneumococcal 13 2015-05-12 Completed Universit y of Conjugate, PCV13 00:00:00 [place] [facility] (Prevnar 13) Branch Pneumococcal 13 2015-05-12 Completed Universit y of Conjugate, PCV13 00:00:00 [place] [facility] (Prevnar 13) Branch Pneumococcal 13 2015-05-12 Completed Universit y of Conjugate, PCV13 00:00:00 [place] [facility] (Prevnar 13) Branch Pneumococcal 13 2015-05-12 Completed Universit y of Conjugate, PCV13 00:00:00 [place] [facility] (Prevnar 13) Branch Pneumococcal 13 2015-05-12 Completed Universit y of Conjugate, PCV13 00:00:00 [place] [facility] (Prevnar 13) Branch Pneumococcal 13 2015-05-12 Completed Universit y of Conjugate, PCV13 00:00:00 [place] [facility] (Prevnar 13) Branch Pneumococcal 13 2015-05-12 Completed Universit y of Conjugate, PCV13 00:00:00 [place] [facility] (Prevnar 13) Branch Pneumococcal 13 2015-05-12 Completed Universit y of Conjugate, PCV13 00:00:00 [place] [facility] (Prevnar 13) Branch Pneumococcal 13 2015-05-12 Completed Universit y of Conjugate, PCV13 00:00:00 [facility] dical (Prevnar 13) Branch Pneumococcal 13 2015-05-12 Completed Universit y of Conjugate, PCV13 00:00:00 [facility] dical (Prevnar 13) Branch PPD (TB) 2015-04-03 Completed University of 00:00:00 [facility] PPD (TB) 2015-04-03 Completed University of 00:00:00 [facility] PPD (TB) 2015-04-03 Completed University of 00:00:00 [facility] PPD (TB) 2015-04-03 Completed University of 00:00:00 [facility] PPD (TB) 2015-04-03 Completed University of 00:00:00 [facility] PPD (TB) 2015-04-03 Completed University of 00:00:00 [facility] PPD (TB) 2015-04-03 Completed University of 00:00:00 [facility] PPD (TB) 2015-04-03 Completed University of 00:00:00 [facility] PPD (TB) 2015-04-03 Completed University of 00:00:00 [facility] PPD (TB) 2015-04-03 Completed University of 00:00:00 [facility] PPD (TB) 2015-04-03 Completed University of 00:00:00 [facility] PPD (TB) 2015-04-03 Completed University of 00:00:00 [facility] PPD (TB) 2015-04-03 Completed University of 00:00:00 [facility] PPD (TB) 2015-04-03 Completed University of 00:00:00 [facility] PPD (TB) 2015-04-03 Completed University of 00:00:00 [facility] PPD (TB) 2015-04-03 Completed University of 00:00:00 [facility] PPD (TB) 2015-04-03 Completed University of 00:00:00 [facility] PPD (TB) 2015-04-03 Completed University of 00:00:00 [facility] PPD (TB) 2015-04-03 Completed University of 00:00:00 [facility] PPD (TB) 2015-04-03 Completed University of 00:00:00 [facility] PPD (TB) 2015-04-03 Completed University of 00:00:00 [facility] PPD (TB) 2015-04-03 Completed University of 00:00:00 [facility] PPD (TB) 2015-04-03 Completed University of 00:00:00 [facility] PPD (TB) 2015-04-03 Completed University of 00:00:00 [facility] [place] PPD (TB) 2015-04-03 Completed University of 00:00:00 [facility] [place] PPD (TB) 2015-04-03 Completed University of 00:00:00 [facility] [place] PPD (TB) 2015-04-03 Completed University of 00:00:00 [facility] PPD (TB) 2015-04-03 Completed University of 00:00:00 [facility] PPD (TB) 2015-04-03 Completed University of 00:00:00 [facility] PPD (TB) 2015-04-03 Completed University of 00:00:00 [facility] PPD (TB) 2015-04-03 Completed University of 00:00:00 [facility] PPD (TB) 2015-04-03 Completed University of 00:00:00 [facility] PPD (TB) 2015-04-03 Completed University of 00:00:00 [facility] PPD (TB) 2015-04-03 Completed University of 00:00:00 [facility] PPD (TB) 2015-04-03 Completed University of 00:00:00 [facility] PPD (TB) 2015-04-03 Completed University of 00:00:00 [facility] PPD (TB) 2015-04-03 Completed University of 00:00:00 [facility] Influenza Virus 2014-12-05 Completed Universit y of Vaccine 00:00:00 [facility] Influenza Virus 2014-12-05 Completed Universit y of Vaccine 00:00:00 [facility] Influenza Virus 2014-12-05 Completed Universit y of Vaccine 00:00:00 [facility] Influenza Virus 2014-12-05 Completed Universit y of Vaccine 00:00:00 [facility] Influenza Virus 2014-12-05 Completed Universit y of Vaccine 00:00:00 [facility] Influenza Virus 2014-12-05 Completed Universit y of Vaccine 00:00:00 [facility] Influenza Virus 2014-12-05 Completed Universit y of Vaccine 00:00:00 [facility] Influenza Virus 2014-12-05 Completed Universit y of Vaccine 00:00:00 [facility] Influenza Virus 2014-12-05 Completed Universit y of Vaccine 00:00:00 [facility] Influenza Virus 2014-12-05 Completed Universit y of Vaccine 00:00:00 [facility] Influenza Virus 2014-12-05 Completed Universit y of Vaccine 00:00:00 [facility] Influenza Virus 2014-12-05 Completed Universit y of Vaccine 00:00:00 [facility] Influenza Virus 2014-12-05 Completed Universit y of Vaccine 00:00:00 [facility] Influenza Virus 2014-12-05 Completed Universit y of Vaccine 00:00:00 [facility] Influenza Virus 2014-12-05 Completed Universit y of Vaccine 00:00:00 [facility] Influenza Virus 2014-12-05 Completed Universit y of Vaccine 00:00:00 [facility] Influenza Virus 2014-12-05 Completed Universit y of Vaccine 00:00:00 [facility] Influenza Virus 2014-12-05 Completed Universit y of Vaccine 00:00:00 [facility] Influenza Virus 2014-12-05 Completed Universit y of Vaccine 00:00:00 [facility] Influenza Virus 2014-12-05 Completed Universit y of Vaccine 00:00:00 [facility] Influenza Virus 2014-12-05 Completed Universit y of Vaccine 00:00:00 [facility] Influenza Virus 2014-12-05 Completed Universit y of Vaccine 00:00:00 [facility] Influenza Virus 2014-12-05 Completed Universit y of Vaccine 00:00:00 [facility] Influenza Virus 2014-12-05 Completed Universit y of Vaccine 00:00:00 [facility] Influenza Virus 2014-12-05 Completed Universit y of Vaccine 00:00:00 [facility] Influenza Virus 2014-12-05 Completed Universit y of Vaccine 00:00:00 [facility] Influenza Virus 2014-12-05 Completed Universit y of Vaccine 00:00:00 [facility] Influenza Virus 2014-12-05 Completed Universit y of Vaccine 00:00:00 [facility] Influenza Virus 2014-12-05 Completed Universit y of Vaccine 00:00:00 [facility] Influenza Virus 2014-12-05 Completed Universit y of Vaccine 00:00:00 [facility] Influenza Virus 2014-12-05 Completed Universit y of Vaccine 00:00:00 [facility] Influenza Virus 2014-12-05 Com[facility]00 [facility] Influenza Virus 2014-12-05 Completed [facility] 00:00:00 [facility] Influenza Virus 2014-12-05 Completed [facility] 00:00:00 [facility] Influenza Virus 2014-12-05 Completed [facility] Vaccine 00:00:00 [facility] Influenza Virus 2014-12-05 Completed [facility] Vaccine 00:00:00 [facility] Influenza Virus 2014-12-05 Completed [facility]ine 00:00:00 [facility] PPD (TB) 2014-04-13 Completed [facility] 00:00:00 [facility] PPD (TB) 2014-04-13 Completed [facility] 00:00:00 [facility] PPD (TB) 2014-04-13 Completed [facility] 00:00:00 [facility] PPD (TB) 2014-04-13 Completed [facility] 00:00:00 [facility] PPD (TB) 2014-04-13 Completed [facility] 00:00:00 [facility] PPD (TB) 2014-04-13 Completed [facility] 00:00:00 [facility] PPD (TB) 2014-04-13 Completed [facility] 00:00:00 [facility] PPD (TB) 2014-04-13 Completed [facility] 00:00:00 [facility] PPD (TB) 2014-04-13 Completed [facility] 00:00:00 [facility] PPD (TB) 2014-04-13 Completed [facility] 00:00:00 [facility] PPD (TB) 2014-04-13 Completed [facility] 00:00:00 [facility] PPD (TB) 2014-04-13 Completed [facility] 00:00:00 [facility] PPD (TB) 2014-04-13 Completed [facility] 00:00:00 [facility] PPD (TB) 2014-04-13 Completed [facility] 00:00:00 [facility] PPD (TB) 2014-04-13 Completed [facility] 00:00:00 [facility] PPD (TB) 2014-04-13 Completed [facility] 00:00:00 [facility] PPD (TB) 2014-04-13 Completed [facility] 00:00:00 [facility] PPD (TB) 2014-04-13 Completed [facility] 00:00:00 [facility] PPD (TB) 2014-04-13 Completed [facility] 00:00:00 [facility] PPD (TB) 2014-04-13 Completed [facility] 00:00:00 [facility] PPD (TB) 2014-04-13 Completed [facility] 00:00:00 [facility] PPD (TB) 2014-04-13 Completed [facility] 00:00:00 [facility] PPD (TB) 2014-04-13 Completed [facility] 00:00:00 [facility] PPD (TB) 2014-04-13 Completed [facility] 00:00:00 [facility] PPD (TB) 2014-04-13 Completed [facility] 00:00:00 [facility] PPD (TB) 2014-04-13 Completed [facility] 00:00:00 [facility] PPD (TB) 2014-04-13 Completed [facility] 00:00:00 [facility] PPD (TB) 2014-04-13 Completed [facility] 00:00:00 [facility] PPD (TB) 2014-04-13 Completed [facility] 00:00:00 [facility] PPD (TB) 2014-04-13 Completed [facility] 00:00:00 [facility] PPD (TB) 2014-04-13 Completed [facility] 00:00:00 [facility] PPD (TB) 2014-04-13 Completed [facility] 00:00:00 [facility] PPD (TB) 2014-04-13 Completed [facility] 00:00:00 [facility] PPD (TB) 2014-04-13 Completed [facility] 00:00:00 [facility] PPD (TB) 2014-04-13 Completed [facility] 00:00:00 [facility] PPD (TB) 2014-04-13 Completed [facility] 00:00:00 [facility] PPD (TB) 2014-04-13 Completed [facility] 00:00:00 [facility] Influenza Virus 2013-11-15 Completed [facility] Vaccine 00:00:00 [facility] Influenza Virus 2013-11-15 Completed [facility] Vaccine 00:00:00 [facility] Influenza Virus 2013-11-15 Completed [facility] Vaccine 00:00:00 [facility] Influenza Virus 2013-11-15 Completed [facility] Vaccine 00:00:00 [facility] Influenza Virus 2013-11-15 Completed [facility] Vaccine 00:00:00 [facility] Influenza Virus 2013-11-15 Completed [facility] Vaccine 00:00:00 [facility] Influenza Virus 2013-11-15 Completed [facility] Vaccine 00:00:00 [facility] Influenza Virus 2013-11-15 Completed [facility] Vaccine 00:00:00 [facility] Influenza Virus 2013-11-15 Completed [facility] Vaccine 00:00:00 [facility] Influenza Virus 2013-11-15 Completed [facility] Vaccine 00:00:00 [facility] Influenza Virus 2013-11-15 Completed [facility] Vaccine 00:00:00 [facility] Influenza Virus 2013-11-15 Completed [facility] Vaccine 00:00:00 [facility] Influenza Virus 2013-11-15 Completed [facility] Vaccine 00:00:00 [facility] Influenza Virus 2013-11-15 Completed [facility] Vaccine 00:00:00 [facility] Influenza Virus 2013-11-15 Completed [facility] Vaccine 00:00:00 [facility] Influenza Virus 2013-11-15 Completed [facility] Vaccine 00:00:00 [facility] Influenza Virus 2013-11-15 Completed [facility] Vaccine 00:00:00 [facility] Influenza Virus 2013-11-15 Completed [facility] Vaccine 00:00:00 [facility] Influenza Virus 2013-11-15 Completed [facility] Vaccine 00:00:00 [facility] Influenza Virus 2013-11-15 Completed [facility] Vaccine 00:00:00 [facility] Influenza Virus 2013-11-15 Completed [facility] Vaccine 00:00:00 [facility] Influenza Virus 2013-11-15 Completed [facility] Vaccine 00:00:00 [facility] Influenza Virus 2013-11-15 Completed [facility] Vaccine 00:00:00 [facility] Influenza Virus 2013-11-15 Completed [facility] Vaccine 00:00:00 [facility] Influenza Virus 2013-11-15 Completed [facility] Vaccine 00:00:00 [facility] Influenza Virus 2013-11-15 Completed [facility] Vaccine 00:00:00 [facility] Influenza Virus 2013-11-15 Completed [facility] Vaccine 00:00:00 [facility] Influenza Virus 2013-11-15 Completed [facility] Vaccine 00:00:00 [facility] Influenza Virus 2013-11-15 Completed [facility] Vaccine 00:00:00 [facility] Influenza Virus 2013-11-15 Completed [facility] Vaccine 00:00:00 [facility] Influenza Virus 2013-11-15 Completed [facility] Vaccine 00:00:00 [facility] Influenza Virus 2013-11-15 Completed [facility] Vaccine 00:00:00 [facility] Influenza Virus 2013-11-15 Completed [facility] Vaccine 00:00:00 [facility] Influenza Virus 2013-11-15 Completed [facility] Vaccine 00:00:00 [facility] Influenza Virus 2013-11-15 Completed [facility] Vaccine 00:00:00 [facility] Influenza Virus 2013-11-15 Completed [facility] Vaccine 00:00:00 [facility] Influenza Virus 2013-11-15 Completed [facility]ine 00:00:00 [facility] PPD (TB) 2013-09-08 Completed [facility] 00:00:00 [facility] PPD (TB) 2013-09-08 Completed [facility] 00:00:00 [facility] PPD (TB) 2013-09-08 Completed [facility] 00:00:00 [facility] PPD (TB) 2013-09-08 Completed [facility] 00:00:00 [facility] PPD (TB) 2013-09-08 Completed [facility] 00:00:00 [facility] PPD (TB) 2013-09-08 Completed [facility] 00:00:00 [facility] PPD (TB) 2013-09-08 Completed [facility] 00:00:00 [facility] PPD (TB) 2013-09-08 Completed [facility] 00:00:00 [facility] PPD (TB) 2013-09-08 Completed [facility] 00:00:00 [facility] PPD (TB) 2013-09-08 Completed [facility] 00:00:00 [facility] PPD (TB) 2013-09-08 Completed [facility] 00:00:00 [facility] PPD (TB) 2013-09-08 Completed [facility] 00:00:00 [facility] PPD (TB) 2013-09-08 Completed [facility] 00:00:00 [facility] PPD (TB) 2013-09-08 Completed [facility] 00:00:00 [facility] PPD (TB) 2013-09-08 Completed [facility] 00:00:00 [facility] PPD (TB) 2013-09-08 Completed [facility] 00:00:00 [facility] PPD (TB) 2013-09-08 Completed [facility] 00:00:00 [facility] PPD (TB) 2013-09-08 Completed [facility] 00:00:00 [facility] PPD (TB) 2013-09-08 Completed [facility] 00:00:00 [facility] PPD (TB) 2013-09-08 Completed [facility] 00:00:00 [facility] PPD (TB) 2013-09-08 Completed [facility] 00:00:00 [facility] PPD (TB) 2013-09-08 Completed [facility] 00:00:00 [facility] PPD (TB) 2013-09-08 Completed [facility] 00:00:00 [facility] PPD (TB) 2013-09-08 Completed [facility] 00:00:00 [facility] PPD (TB) 2013-09-08 Completed [facility] 00:00:00 [facility] PPD (TB) 2013-09-08 Completed [facility] 00:00:00 [facility] PPD (TB) 2013-09-08 Completed [facility] 00:00:00 [facility] PPD (TB) 2013-09-08 Completed [facility] 00:00:00 [facility] PPD (TB) 2013-09-08 Completed [facility] 00:00:00 [facility] PPD (TB) 2013-09-08 Completed [facility] 00:00:00 [facility] PPD (TB) 2013-09-08 Completed [facility] 00:00:00 [facility] PPD (TB) 2013-09-08 Completed [facility] 00:00:00 [facility] PPD (TB) 2013-09-08 Completed [facility] 00:00:00 [facility] PPD (TB) 2013-09-08 Completed [facility] 00:00:00 [facility] PPD (TB) 2013-09-08 Completed [facility] 00:00:00 [facility] PPD (TB) 2013-09-08 Completed [facility] 00:00:00 [facility] PPD (TB) 2013-09-08 Completed [facility] 00:00:00 [facility] Hep B, Adol or Pedi 2012-12-28 Completed [facility] Dosage 00:00:00 [facility] Hep B, Adol or Pedi 2012-12-28 Completed [facility] Dosage 00:00:00 [facility] Hep B, Adol or Pedi 2012-12-28 Completed [facility] Dosage 00:00:00 [facility] Hep B, Adol or Pedi 2012-12-28 Completed [facility] Dosage 00:00:00 [facility] Hep B, Adol or Pedi 2012-12-28 Completed [facility] Dosage 00:00:00 [facility] Hep B, Adol or Pedi 2012-12-28 Completed [facility] Dosage 00:00:00 [facility] Hep B, Adol or Pedi 2012-12-28 Completed [facility] Dosage 00:00:00 [facility] Hep B, Adol or Pedi 2012-12-28 Completed [facility] Dosage 00:00:00 [facility] Hep B, Adol or Pedi 2012-12-28 Completed [facility] Dosage 00:00:00 [facility] Hep B, Adol or Pedi 2012-12-28 Completed [facility] Dosage 00:00:00 [facility] Hep B, Adol or Pedi 2012-12-28 Completed [facility] Dosage 00:00:00 [facility] Hep B, Adol or Pedi 2012-12-28 Completed [facility] Dosage 00:00:00 [facility] Hep B, Adol or Pedi 2012-12-28 Completed [facility] Dosage 00:00:00 [facility] Hep B, Adol or Pedi 2012-12-28 Completed [facility] Dosage 00:00:00 [facility] Hep B, Adol or Pedi 2012-12-28 Completed [facility] Dosage 00:00:00 [facility] Hep B, Adol or Pedi 2012-12-28 Completed [facility] Dosage 00:00:00 [facility] Hep B, Adol or Pedi 2012-12-28 Completed [facility] of Dosage 00:00:00 [facility] Hep B, Adol or Pedi 2012-12-28 Completed [facility] Dosage 00:00:00 [facility] Hep B, Adol or Pedi 2012-12-28 Completed [facility] of Dosage 00:00:00 [facility] Hep B, Adol or Pedi 2012-12-28 Completed [facility] of Dosage 00:00:00 [facility] Hep B, Adol or Pedi 2012-12-28 Completed [facility] of Dosage 00:00:00 [facility] Hep B, Adol or Pedi 2012-12-28 Completed [facility] Dosage 00:00:00 [facility] Hep B, Adol or Pedi 2012-12-28 Completed [facility] Dosage 00:00:00 [facility] Hep B, Adol or Pedi 2012-12-28 Completed [facility] Dosage 00:00:00 [facility] Hep B, Adol or Pedi 2012-12-28 Completed [facility] of Dosage 00:00:00 [facility] Hep B, Adol or Pedi 2012-12-28 Completed [facility] Dosage 00:00:00 [facility] Hep B, Adol or Pedi 2012-12-28 Completed [facility] Dosage 00:00:00 [facility] Hep B, Adol or Pedi 2012-12-28 Completed [facility] of Dosage 00:00:00 [facility] Hep B, Adol or Pedi 2012-12-28 Completed [facility] Dosage 00:00:00 [facility] Hep B, Adol or Pedi 2012-12-28 Completed [facility] of Dosage 00:00:00 [facility] Hep B, Adol or Pedi 2012-12-28 Completed [facility] Dosage 00:00:00 [facility] Hep B, Adol or Pedi 2012-12-28 Completed [facility] Dosage 00:00:00 [facility] Hep B, Adol or Pedi 2012-12-28 Completed [facility] of Dosage 00:00:00 [facility] Hep B, Adol or Pedi 2012-12-28 Completed [facility] Dosage 00:00:00 [facility] Hep B, Adol or Pedi 2012-12-28 Completed [facility] Dosage 00:00:00 [facility] Hep B, Adol or Pedi 2012-12-28 Completed [facility] of Dosage 00:00:00 [facility] Hep B, Adol or Pedi 2012-12-28 Completed [facility] Dosage 00:00:00 [facility] Influenza Virus 2012-11-20 Completed [facility]ine 00:00:00 [facility] Influenza Virus 2012-11-20 Completed [facility] Vaccine 00:00:00 [facility] Influenza Virus 2012-11-20 Completed [facility] Vaccine 00:00:00 [facility] Influenza Virus 2012-11-20 Completed [facility] Vaccine 00:00:00 [facility] Influenza Virus 2012-11-20 Completed [facility]ine 00:00:00 [facility] Influenza Virus 2012-11-20 Completed [facility] Vaccine 00:00:00 [facility] Influenza Virus 2012-11-20 Completed [facility] Vaccine 00:00:00 [facility] Influenza Virus 2012-11-20 Completed [facility] Vaccine 00:00:00 [facility] Influenza Virus 2012-11-20 Completed [facility] Vaccine 00:00:00 [facility] Influenza Virus 2012-11-20 Completed [facility] Vaccine 00:00:00 [facility] Influenza Virus 2012-11-20 Completed [facility] Vaccine 00:00:00 [facility] Influenza Virus 2012-11-20 Completed [facility] Vaccine 00:00:00 [facility] Influenza Virus 2012-11-20 Completed [facility] Vaccine 00:00:00 [facility] Influenza Virus 2012-11-20 Completed [facility] Vaccine 00:00:00 [facility] Influenza Virus 2012-11-20 Completed [facility] Vaccine 00:00:00 [facility] Influenza Virus 2012-11-20 Completed [facility] Vaccine 00:00:00 [facility] Influenza Virus 2012-11-20 Completed [facility] Vaccine 00:00:00 [facility] Influenza Virus 2012-11-20 Completed [facility] Vaccine 00:00:00 [facility] Influenza Virus 2012-11-20 Completed [facility] Vaccine 00:00:00 [facility] Influenza Virus 2012-11-20 Completed [facility] Vaccine 00:00:00 [facility] Influenza Virus 2012-11-20 Completed [facility] Vaccine 00:00:00 [facility] Influenza Virus 2012-11-20 Completed [facility] Vaccine 00:00:00 [facility] Influenza Virus 2012-11-20 Completed [facility] Vaccine 00:00:00 [facility] Influenza Virus 2012-11-20 Completed [facility] Vaccine 00:00:00 [facility] Influenza Virus 2012-11-20 Completed [facility] Vaccine 00:00:00 [facility] Influenza Virus 2012-11-20 Completed [facility] Vaccine 00:00:00 [facility] Influenza Virus 2012-11-20 Completed [facility] Vaccine 00:00:00 [facility] Influenza Virus 2012-11-20 Completed [facility] Vaccine 00:00:00 [facility] Influenza Virus 2012-11-20 Completed [facility] Vaccine 00:00:00 [facility] Influenza Virus 2012-11-20 Completed [facility] Vaccine 00:00:00 [facility] Influenza Virus 2012-11-20 Completed [facility] Vaccine 00:00:00 [facility] Influenza Virus 2012-11-20 Completed [facility] Vaccine 00:00:00 [facility] Influenza Virus 2012-11-20 Completed [facility] Vaccine 00:00:00 [facility] Influenza Virus 2012-11-20 Completed [facility] Vaccine 00:00:00 [facility] Influenza Virus 2012-11-20 Completed [facility] Vaccine 00:00:00 [facility] Influenza Virus 2012-11-20 Completed [facility] Vaccine 00:00:00 [facility] Influenza Virus 2012-11-20 Completed [facility] Vaccine 00:00:00 [facility] Hep B, Adol or Pedi 2012-08-26 Completed [facility] of Dosage 00:00:00 [facility] Hep B, Adol or Pedi 2012-08-26 Completed [facility] of Dosage 00:00:00 [facility] Hep B, Adol or Pedi 2012-08-26 Completed [facility] of Dosage 00:00:00 [facility] Hep B, Adol or Pedi 2012-08-26 Completed [facility] of Dosage 00:00:00 [facility] Hep B, Adol or Pedi 2012-08-26 Completed [facility] Dosage 00:00:00 [facility] Hep B, Adol or Pedi 2012-08-26 Completed [facility] of Dosage 00:00:00 [facility] Hep B, Adol or Pedi 2012-08-26 Completed [facility] Dosage 00:00:00 [facility] Hep B, Adol or Pedi 2012-08-26 Completed [facility] of Dosage 00:00:00 [facility] Hep B, Adol or Pedi 2012-08-26 Completed [facility] of Dosage 00:00:00 [facility] Hep B, Adol or Pedi 2012-08-26 Completed [facility] of Dosage 00:00:00 [facility] Hep B, Adol or Pedi 2012-08-26 Completed [facility] Dosage 00:00:00 [facility] Hep B, Adol or Pedi 2012-08-26 Completed [facility] of Dosage 00:00:00 [facility] Hep B, Adol or Pedi 2012-08-26 Completed [facility] Dosage 00:00:00 [facility] Hep B, Adol or Pedi 2012-08-26 Completed [facility] of Dosage 00:00:00 [facility] Hep B, Adol or Pedi 2012-08-26 Completed [facility] Dosage 00:00:00 [facility] Hep B, Adol or Pedi 2012-08-26 Completed [facility] Dosage 00:00:00 [facility] Hep B, Adol or Pedi 2012-08-26 Completed [facility] of Dosage 00:00:00 [facility] Hep B, Adol or Pedi 2012-08-26 Completed [facility] Dosage 00:00:00 [facility] Hep B, Adol or Pedi 2012-08-26 Completed [facility] Dosage 00:00:00 [facility] Hep B, Adol or Pedi 2012-08-26 Completed [facility] Dosage 00:00:00 [facility] Hep B, Adol or Pedi 2012-08-26 Completed [facility] Dosage 00:00:00 [facility] Hep B, Adol or Pedi 2012-08-26 Completed [facility] Dosage 00:00:00 [facility] Hep B, Adol or Pedi 2012-08-26 Completed [facility] Dosage 00:00:00 [facility] Hep B, Adol or Pedi 2012-08-26 Completed [facility] Dosage 00:00:00 [facility] Hep B, Adol or Pedi 2012-08-26 Completed [facility] Dosage 00:00:00 [facility] Hep B, Adol or Pedi 2012-08-26 Completed [facility] Dosage 00:00:00 [facility] Hep B, Adol or Pedi 2012-08-26 Completed [facility] Dosage 00:00:00 [facility] Hep B, Adol or Pedi 2012-08-26 Completed [facility] Dosage 00:00:00 [facility] Hep B, Adol or Pedi 2012-08-26 Completed [facility] of Dosage 00:00:00 [facility] Hep B, Adol or Pedi 2012-08-26 Completed [facility] Dosage 00:00:00 [facility] Hep B, Adol or Pedi 2012-08-26 Completed [facility] Dosage 00:00:00 [facility] Hep B, Adol or Pedi 2012-08-26 Completed [facility] Dosage 00:00:00 [facility] Hep B, Adol or Pedi 2012-08-26 Completed [facility] Dosage 00:00:00 [facility] Hep B, Adol or Pedi 2012-08-26 Completed [facility] Dosage 00:00:00 [facility] Hep B, Adol or Pedi 2012-08-26 Completed [facility] Dosage 00:00:00 [facility] Hep B, Adol or Pedi 2012-08-26 Completed [facility] Dosage 00:00:00 [facility] Hep B, Adol or Pedi 2012-08-26 Completed [facility] Dosage 00:00:00 [facility] Hep B, Adol or Pedi 2012-07-27 Completed [facility] Dosage 00:00:00 [facility] Hep B, Adol or Pedi 2012-07-27 Completed [facility] Dosage 00:00:00 [facility] Hep B, Adol or Pedi 2012-07-27 Completed [facility] Dosage 00:00:00 [facility] Hep B, Adol or Pedi 2012-07-27 Completed [facility] Dosage 00:00:00 [facility] Hep B, Adol or Pedi 2012-07-27 Completed [facility] Dosage 00:00:00 [facility] Hep B, Adol or Pedi 2012-07-27 Completed [facility] Dosage 00:00:00 [facility] Hep B, Adol or Pedi 2012-07-27 Completed [facility] Dosage 00:00:00 [facility] Hep B, Adol or Pedi 2012-07-27 Completed [facility] Dosage 00:00:00 [facility] Hep B, Adol or Pedi 2012-07-27 Completed [facility] Dosage 00:00:00 [facility] Hep B, Adol or Pedi 2012-07-27 Completed [facility] Dosage 00:00:00 [facility] Hep B, Adol or Pedi 2012-07-27 Completed [facility] Dosage 00:00:00 [facility] Hep B, Adol or Pedi 2012-07-27 Completed [facility] Dosage 00:00:00 [facility] Hep B, Adol or Pedi 2012-07-27 Completed [facility] Dosage 00:00:00 [facility] Hep B, Adol or Pedi 2012-07-27 Completed [facility] Dosage 00:00:00 [facility] Hep B, Adol or Pedi 2012-07-27 Completed [facility] Dosage 00:00:00 [facility] Hep B, Adol or Pedi 2012-07-27 Completed [facility] Dosage 00:00:00 [facility] Hep B, Adol or Pedi 2012-07-27 Completed [facility] Dosage 00:00:00 [facility] Hep B, Adol or Pedi 2012-07-27 Completed [facility] Dosage 00:00:00 [facility] Hep B, Adol or Pedi 2012-07-27 Completed [facility] Dosage 00:00:00 [facility] Hep B, Adol or Pedi 2012-07-27 Completed [facility] Dosage 00:00:00 [facility] Hep B, Adol or Pedi 2012-07-27 Completed [facility] Dosage 00:00:00 [facility] Hep B, Adol or Pedi 2012-07-27 Completed [facility] Dosage 00:00:00 [facility] Hep B, Adol or Pedi 2012-07-27 Completed [facility] Dosage 00:00:00 [facility] Hep B, Adol or Pedi 2012-07-27 Completed [facility] Dosage 00:00:00 [facility] Hep B, Adol or Pedi 2012-07-27 Completed [facility] Dosage 00:00:00 [facility] Hep B, Adol or Pedi 2012-07-27 Completed [facility] Dosage 00:00:00 [facility] Hep B, Adol or Pedi 2012-07-27 Completed [facility] Dosage 00:00:00 [facility] Hep B, Adol or Pedi 2012-07-27 Completed [facility] Dosage 00:00:00 [facility] Hep B, Adol or Pedi 2012-07-27 Completed [facility] Dosage 00:00:00 [facility] Hep B, Adol or Pedi 2012-07-27 Completed [facility] Dosage 00:00:00 [facility] Hep B, Adol or Pedi 2012-07-27 Completed [facility] Dosage 00:00:00 [facility] Hep B, Adol or Pedi 2012-07-27 Completed [facility] Dosage 00:00:00 [facility] Hep B, Adol or Pedi 2012-07-27 Completed [facility] Dosage 00:00:00 [facility] Hep B, Adol or Pedi 2012-07-27 Completed [facility] Dosage 00:00:00 [facility] Hep B, Adol or Pedi 2012-07-27 Completed [facility] Dosage 00:00:00 [facility] Hep B, Adol or Pedi 2012-07-27 Completed [facility] Dosage 00:00:00 [facility] Hep B, Adol or Pedi 2012-07-27 Completed [facility]00 [facility] [facility] Influenza Virus 2012-07-08 Completed Universit y of Vaccine 00:00:00 [facility] Influenza Virus 2012-07-08 Completed Universit y of Vaccine 00:00:00 [facility] Influenza Virus 2012-07-08 Completed Universit y of Vaccine 00:00:00 [facility] Influenza Virus 2012-07-08 Completed Universit y of Vaccine 00:00:00 [facility] Influenza Virus 2012-07-08 Completed Universit y of Vaccine 00:00:00 [facility] Influenza Virus 2012-07-08 Completed Universit y of Vaccine 00:00:00 [facility] Influenza Virus 2012-07-08 Completed Universit y of Vaccine 00:00:00 [facility] Influenza Virus 2012-07-08 Completed Universit y of Vaccine 00:00:00 [facility] Influenza Virus 2012-07-08 Completed Universit y of Vaccine 00:00:00 [facility] Influenza Virus 2012-07-08 Completed Universit y of Vaccine 00:00:00 [facility] Influenza Virus 2012-07-08 Completed Universit y of Vaccine 00:00:00 [facility] Influenza Virus 2012-07-08 Completed Universit y of Vaccine 00:00:00 [facility] Influenza Virus 2012-07-08 Completed Universit y of Vaccine 00:00:00 [facility] Influenza Virus 2012-07-08 Completed Universit y of Vaccine 00:00:00 [facility] Influenza Virus 2012-07-08 Completed Universit y of Vaccine 00:00:00 [facility] Influenza Virus 2012-07-08 Completed Universit y of Vaccine 00:00:00 [facility] Influenza Virus 2012-07-08 Completed Universit y of Vaccine 00:00:00 [facility] Influenza Virus 2012-07-08 Completed Universit y of Vaccine 00:00:00 [facility] Influenza Virus 2012-07-08 Completed Universit y of Vaccine 00:00:00 [facility] Influenza Virus 2012-07-08 Completed Universit y of Vaccine 00:00:00 [facility] Influenza Virus 2012-07-08 Completed Universit y of Vaccine 00:00:00 [facility] Influenza Virus 2012-07-08 Completed Universit y of Vaccine 00:00:00 [facility] Influenza Virus 2012-07-08 Completed Universit y of Vaccine 00:00:00 [facility] Influenza Virus 2012-07-08 Completed Universit y of Vaccine 00:00:00 [facility] Influenza Virus 2012-07-08 Completed Universit y of Vaccine 00:00:00 [facility] Influenza Virus 2012-07-08 Completed Universit y of Vaccine 00:00:00 [facility] Influenza Virus 2012-07-08 Completed Universit y of Vaccine 00:00:00 [facility] Influenza Virus 2012-07-08 Completed Universit y of Vaccine 00:00:00 [facility] Influenza Virus 2012-07-08 Completed Universit y of Vaccine 00:00:00 [facility] Influenza Virus 2012-07-08 Completed Universit y of Vaccine 00:00:00 [facility] Influenza Virus 2012-07-08 Completed Universit y of Vaccine 00:00:00 [facility] Influenza Virus 2012-07-08 Completed [facility]it y of Vaccine 00:00:00 [facility] Influenza Virus 2012-07-08 Completed Universit y of Vaccine 00:00:00 [facility] Influenza Virus 2012-07-08 Completed Universit y of Vaccine 00:00:00 [facility] Influenza Virus 2012-07-08 Completed Universit y of Vaccine 00:00:00 [facility] Influenza Virus 2012-07-08 Completed Universit y of Vaccine 00:00:00 [facility] Influenza Virus 2012-07-08 Completed Universit y of Vaccine 00:00:00 [facility] Pneumococcal 13 2012-06-19 Completed Universit y of Conjugate, PCV13 00:00:00 [facility] dical (Prevnar 13) Branch Hep B, Adol or Pedi 2012-06-19 Completed Unive rsity of Dosage 00:00:00 [facility] Pneumococcal 13 2012-06-19 Completed Universit y of Conjugate, PCV13 00:00:00 [place] [facility] (Prevnar 13) Branch Hep B, Adol or Pedi 2012-06-19 Completed Unive rsity of Dosage 00:00:00 [facility] Pneumococcal 13 2012-06-19 Completed Universit y of Conjugate, PCV13 00:00:00 [facility] dical (Prevnar 13) Branch Hep B, Adol or Pedi 2012-06-19 Completed Unive rsity of Dosage 00:00:00 [facility] Pneumococcal 13 2012-06-19 Completed Universit y of Conjugate, PCV13 00:00:00 [facility] dical (Prevnar 13) Branch Hep B, Adol or Pedi 2012-06-19 Completed Unive rsity of Dosage 00:00:00 [facility] Pneumococcal 13 2012-06-19 Completed Universit y of Conjugate, PCV13 00:00:00 [facility] dical (Prevnar 13) Branch Hep B, Adol or Pedi 2012-06-19 Completed Unive rsity of Dosage 00:00:00 [facility] Pneumococcal 13 2012-06-19 Completed Universit y of Conjugate, PCV13 00:00:00 [place] [facility] (Prevnar 13) Branch Hep B, Adol or Pedi 2012-06-19 Completed Unive rsity of Dosage 00:00:00 [facility] Pneumococcal 13 2012-06-19 Completed Universit y of Conjugate, PCV13 00:00:00 [place] [facility] (Prevnar 13) Branch Hep B, Adol or Pedi 2012-06-19 Completed Unive rsity of Dosage 00:00:00 [facility] Hep B, Adol or Pedi 2012-06-19 Completed Unive rsity of Dosage 00:00:00 [facility] Pneumococcal 13 2012-06-19 Completed Universit y of Conjugate, PCV13 00:00:00 [place] [facility] (Prevnar 13) Branch Hep B, Adol or Pedi 2012-06-19 Completed Unive rsity of Dosage 00:00:00 [facility] Pneumococcal 13 2012-06-19 Completed Universit y of Conjugate, PCV13 00:00:00 [place] [facility] (Prevnar 13) Branch Hep B, Adol or Pedi 2012-06-19 Completed Unive rsity of Dosage 00:00:00 [facility] Pneumococcal 13 2012-06-19 Completed Universit y of Conjugate, PCV13 00:00:00 [place] [facility] (Prevnar 13) Branch Pneumococcal 13 2012-06-19 Completed Universit y of Conjugate, PCV13 00:00:00 [place] [facility] (Prevnar 13) Branch Hep B, Adol or Pedi 2012-06-19 Completed Unive rsity of Dosage 00:00:00 [facility] Pneumococcal 13 2012-06-19 Completed Universit y of Conjugate, PCV13 00:00:00 [facility] dical (Prevnar 13) Branch Hep B, Adol or Pedi 2012-06-19 Completed Unive rsity of Dosage 00:00:00 [facility] Pneumococcal 13 2012-06-19 Completed Universit y of Conjugate, PCV13 00:00:00 [facility] dical (Prevnar 13) Branch Hep B, Adol or Pedi 2012-06-19 Completed Unive rsity of Dosage 00:00:00 [facility] Pneumococcal 13 2012-06-19 Completed Universit y of Conjugate, PCV13 00:00:00 [place] [facility] (Prevnar 13) Branch Hep B, Adol or Pedi 2012-06-19 Completed Unive rsity of Dosage 00:00:00 [facility] Pneumococcal 13 2012-06-19 Completed Universit y of Conjugate, PCV13 00:00:00 [place] [facility] (Prevnar 13) Branch Hep B, Adol or Pedi 2012-06-19 Completed Unive rsity of Dosage 00:00:00 [facility] Hep B, Adol or Pedi 2012-06-19 Completed Unive rsity of Dosage 00:00:00 [facility] Pneumococcal 13 2012-06-19 Completed Universit y of Conjugate, PCV13 00:00:00 [place] [facility] (Prevnar 13) Branch Hep B, Adol or Pedi 2012-06-19 Completed Unive rsity of Dosage 00:00:00 [facility] Pneumococcal 13 2012-06-19 Completed Universit y of Conjugate, PCV13 00:00:00 [place] [facility] (Prevnar 13) Branch Hep B, Adol or Pedi 2012-06-19 Completed Unive rsity of Dosage 00:00:00 [facility] Pneumococcal 13 2012-06-19 Completed Universit y of Conjugate, PCV13 00:00:00 [place] [facility] (Prevnar 13) Branch Pneumococcal 13 2012-06-19 Completed Universit y of Conjugate, PCV13 00:00:00 [place] [facility] (Prevnar 13) Branch Hep B, Adol or Pedi 2012-06-19 Completed Unive rsity of Dosage 00:00:00 [facility] Pneumococcal 13 2012-06-19 Completed Universit y of Conjugate, PCV13 00:00:00 [place] [facility] (Prevnar 13) Branch Hep B, Adol or Pedi 2012-06-19 Completed Unive rsity of Dosage 00:00:00 [facility] Pneumococcal 13 2012-06-19 Completed Universit y of Conjugate, PCV13 00:00:00 [facility] dical (Prevnar 13) Branch Hep B, Adol or Pedi 2012-06-19 Completed Unive rsity of Dosage 00:00:00 [facility] Pneumococcal 13 2012-06-19 Completed Universit y of Conjugate, PCV13 00:00:00 [facility] dical (Prevnar 13) Branch Hep B, Adol or Pedi 2012-06-19 Completed Unive rsity of Dosage 00:00:00 [facility] Pneumococcal 13 2012-06-19 Completed Universit y of Conjugate, PCV13 00:00:00 [place] [facility] (Prevnar 13) Branch Hep B, Adol or Pedi 2012-06-19 Completed Unive rsity of Dosage 00:00:00 [facility] Hep B, Adol or Pedi 2012-06-19 Completed Unive rsity of Dosage 00:00:00 [facility] Pneumococcal 13 2012-06-19 Completed Universit y of Conjugate, PCV13 00:00:00 [place] [facility] (Prevnar 13) Branch Hep B, Adol or Pedi 2012-06-19 Completed Unive rsity of Dosage 00:00:00 [facility] Pneumococcal 13 2012-06-19 Completed Universit y of Conjugate, PCV13 00:00:00 [place] [facility] (Prevnar 13) Branch Pneumococcal 13 2012-06-19 Completed Universit y of Conjugate, PCV13 00:00:00 [facility] dical (Prevnar 13) Branch Hep B, Adol or Pedi 2012-06-19 Completed Unive rsity of Dosage 00:00:00 [facility] Pneumococcal 13 2012-06-19 Completed Universit y of Conjugate, PCV13 00:00:00 [facility] dical (Prevnar 13) Branch Hep B, Adol or Pedi 2012-06-19 Completed Unive rsity of Dosage 00:00:00 [facility] Pneumococcal 13 2012-06-19 Completed Universit y of Conjugate, PCV13 00:00:00 [facility] dical (Prevnar 13) Branch Hep B, Adol or Pedi 2012-06-19 Completed Unive rsity of Dosage 00:00:00 [facility] Pneumococcal 13 2012-06-19 Completed Universit y of Conjugate, PCV13 00:00:00 [facility] dical (Prevnar 13) Branch Hep B, Adol or Pedi 2012-06-19 Completed Unive rsity of Dosage 00:00:00 [facility] Pneumococcal 13 2012-06-19 Completed Universit y of Conjugate, PCV13 00:00:00 [facility] dical (Prevnar 13) Branch Hep B, Adol or Pedi 2012-06-19 Completed Unive rsity of Dosage 00:00:00 [facility] Pneumococcal 13 2012-06-19 Completed Universit y of Conjugate, PCV13 00:00:00 [facility] dical (Prevnar 13) Branch Hep B, Adol or Pedi 2012-06-19 Completed Unive rsity of Dosage 00:00:00 [facility] Pneumococcal 13 2012-06-19 Completed Universit y of Conjugate, PCV13 00:00:00 [facility] dical (Prevnar 13) Branch Hep B, Adol or Pedi 2012-06-19 Completed Unive rsity of Dosage 00:00:00 [facility] Hep B, Adol or Pedi 2012-06-19 Completed Unive rsity of Dosage 00:00:00 [facility] Pneumococcal 13 2012-06-19 Completed Universit y of Conjugate, PCV13 00:00:00 [facility] dical (Prevnar 13) Branch Hep B, Adol or Pedi 2012-06-19 Completed Unive rsity of Dosage 00:00:00 [facility] Pneumococcal 13 2012-06-19 Completed Universit y of Conjugate, PCV13 00:00:00 [place] [facility] (Prevnar 13) Branch Hep B, Adol or Pedi 2012-06-19 Completed Unive rsity of Dosage 00:00:00 [facility] Pneumococcal 13 2012-06-19 Completed Universit y of Conjugate, PCV13 00:00:00 [place] [facility] (Prevnar 13) Branch Pneumococcal 13 2012-06-19 Completed Universit y of Conjugate, PCV13 00:00:00 [facility] dical (Prevnar 13) Branch Hep B, Adol or Pedi 2012-06-19 Completed Unive rsity of Dosage 00:00:00 [facility] Pneumococcal 13 2012-06-19 Completed Universit y of Conjugate, PCV13 00:00:00 [facility] dical (Prevnar 13) Branch Hep B, Adol or Pedi 2012-06-19 Completed Unive rsity of Dosage 00:00:00 [facility] PPD (TB) 2012-05-30 Completed University of 00:00:00 [facility] PPD (TB) 2012-05-30 Completed University of 00:00:00 [facility] PPD (TB) 2012-05-30 Completed University of 00:00:00 [facility] PPD (TB) 2012-05-30 Completed University of 00:00:00 [facility] PPD (TB) 2012-05-30 Completed University of 00:00:00 [facility] PPD (TB) 2012-05-30 Completed University of 00:00:00 [facility] PPD (TB) 2012-05-30 Completed University of 00:00:00 [facility] PPD (TB) 2012-05-30 Completed University of 00:00:00 [facility] PPD (TB) 2012-05-30 Completed University of 00:00:00 [facility] PPD (TB) 2012-05-30 Completed University of 00:00:00 [facility] PPD (TB) 2012-05-30 Completed University of 00:00:00 [facility] PPD (TB) 2012-05-30 Completed University of 00:00:00 [facility] PPD (TB) 2012-05-30 Completed University of 00:00:00 [facility] PPD (TB) 2012-05-30 Completed University of 00:00:00 [facility] PPD (TB) 2012-05-30 Completed University of 00:00:00 [facility] PPD (TB) 2012-05-30 Completed University of 00:00:00 [facility] PPD (TB) 2012-05-30 Completed University of 00:00:00 [facility] PPD (TB) 2012-05-30 Completed University of 00:00:00 [facility] PPD (TB) 2012-05-30 Completed University of 00:00:00 [facility] PPD (TB) 2012-05-30 Completed University of 00:00:00 [facility] PPD (TB) 2012-05-30 Completed University of 00:00:00 [facility] PPD (TB) 2012-05-30 Completed University of 00:00:00 [facility] PPD (TB) 2012-05-30 Completed University of 00:00:00 [facility] PPD (TB) 2012-05-30 Completed University of 00:00:00 [facility] PPD (TB) 2012-05-30 Completed University of 00:00:00 [facility] PPD (TB) 2012-05-30 Completed University of 00:00:00 [facility] PPD (TB) 2012-05-30 Completed University of 00:00:00 [facility] PPD (TB) 2012-05-30 Completed University of 00:00:00 [facility] PPD (TB) 2012-05-30 Completed University of 00:00:00 [facility] PPD (TB) 2012-05-30 Completed University of 00:00:00 [facility] PPD (TB) 2012-05-30 Completed University of 00:00:00 [facility] PPD (TB) 2012-05-30 Completed University of 00:00:00 [facility] PPD (TB) 2012-05-30 Completed University of 00:00:00 [facility] PPD (TB) 2012-05-30 Completed University of 00:00:00 [facility] PPD (TB) 2012-05-30 Completed University of 00:00:00 [facility] PPD (TB) 2012-05-30 Completed University of 00:00:00 [facility] PPD (TB) 2012-05-30 Completed University of 00:00:00 [facility] Vital Signs Vital Name Observation Time Observation Value Comments Source Systolic blood 2020-02-28 19:18:00 162 mm[Hg] Univer sity of pressure [facility] Diastolic blood 2020-02-28 19:18:00 95 mm[Hg] Unive rsity of pressure [facility] Heart rate 2020-02-28 19:18:00 72 /min [facility] Respiratory rate 2020-02-28 19:06:00 18 /min Univ ersity of [facility] Body height 2020-02-28 19:06:00 167.6 cm [facility] Body weight 2020-02-28 19:06:00 91.672 kg [facility] BMI 2020-02-28 19:06:00 32.62 kg/m2 [facility] Oxygen saturation in 2020-02-28 19:06:00 98 /min University of Arterial blood by [facility] siva Pulse oximetry Branch Systolic blood 2020-02-28 19:18:00 162 mm[Hg] Univer sity of pressure [facility] Diastolic blood 2020-02-28 19:18:00 95 mm[Hg] Unive rsity of pressure [facility] Heart rate 2020-02-28 19:18:00 72 /min [facility] Respiratory rate 2020-02-28 19:06:00 18 /min Univ ersity [facility] Body height 2020-02-28 19:06:00 167.6 cm [facility] Body weight 2020-02-28 19:06:00 91.672 kg [facility] BMI 2020-02-28 19:06:00 32.62 kg/m2 [facility] Oxygen saturation in 2020-02-28 19:06:00 98 /min University of Arterial blood by [facility] siva Pulse oximetry Branch Systolic blood 2019-12-30 13:59:00 179 mm[Hg] Univer sity of pressure [facility] Diastolic blood 2019-12-30 13:59:00 94 mm[Hg] Unive rsity of pressure [facility] Heart rate 2019-12-30 13:59:00 58 /min [facility] Body height 2019-12-30 13:59:00 167.6 cm [facility] Body weight 2019-12-30 13:59:00 92.987 kg [facility] BMI 2019-12-30 13:59:00 33.09 kg/m2 Universi ty [facility] Systolic blood 2019-11-16 16:10:00 170 mm[Hg] Univer sity of pressure [facility] Diastolic blood 2019-11-16 16:10:00 92 mm[Hg] Unive rsity of pressure [facility] Heart rate 2019-11-16 16:10:00 76 /[facility] 2019-11-16 16:10:00 97 /min [facility] Arterial blood by [facility] Pulse oximetry Branch Body temperature 2019-11-16 16:09:00 36.44 Radha [facility] 2019-11-16 16:09:00 168.1 cm no shoes [facility] Body weight 2019-11-16 16:09:00 91.218 kg no shoes [facility] BMI 2019-11-16 16:09:00 32.28 kg/m2 [facility] Procedures Procedure Date / Time Performed Performing Clinician Thomas amira MEDICAL 2020-04-18 06:01:00 Doctor Unassigned, No [facility] RELEASE/CLEARANCE Name Medical Branch FORMS NM MYOCARDIUM 2020-03-14 19:09:00 Gus Teague [facility] PERFUSION STRESS AND Medical Bra nch REST NM MYOCARDIUM 2020-03-14 19:09:00 Gus Teague [facility] PERFUSION STRESS AND Medical Bra nch REST NM MYOCARDIUM 2020-03-14 19:09:00 Gus Teague [facility] PERFUSION STRESS AND Medical Bra nch REST NM MYOCARDIUM 2020-03-14 19:09:00 Gus Teague [facility] PERFUSION STRESS AND Medical Bra nch REST EKG-12 LEAD 2020-02-28 19:27:26 Gus Teague [facility] CT ABDOMEN PELVIS W WO 2019-12-30 13:41:01 Eduardo Funez [facility] CONTRAST [facility] HB CREATININE BLOOD 2019-12-30 13:23:00 Eduardo Funez [facility] CONSENT/REFUSAL FOR 2019-12-30 13:02:51 Doctor Unassigned, No Un [facility] DIAGNOSIS AND Name Medical Branch TREATMENT ASSIGNMENT OF BENEFITS 2019-12-30 13:02:30 Doctor Unassigned, No [facility] CONSENT FOR TRANSPLANT 2019-11-16 05:01:00 Doctor Unassigned, No [facility] EVALUATION [facility] XR CHEST 2 VW 2018-11-10 14:48:46 Lauren Zelaya [facility] ASSIGNMENT OF BENEFITS 2018-11-10 14:28:38 Doctor Unassigned, No [facility] Encounters Start End Encounter Admission Attending Care Care Encounter Source Date/Time Date/Time Type Type Clinicians Facility Department ID 2018-06-22 Inpatient [facility] [id number] [facility] H 07:53:49 2018-06-22 Outpatient [facility] [id number] MH HH 07:53:48 2021-03-01 2021-03-01 [id number] Univers 13:00:00 13:00:00 SENDIL [id number] ity [facility] 2021-03-01 2021-03-01 [facility] [id number] Univers 13:00:00 [facility]00[facility] 2021-02-22 Outpatient [facility] [id number] Univers 13:00:00 13:00:00 [id number] ity [facility] 2020-05-16 2020-05-16 Telephone [facility] 1..840.114 [id number] Univers 00:00:00 00:00:00 Lauren Bobo MULTISPEC 350.1.13.10 ity of IALTY [id number] [facility] s CENTER [id number] [place] [address] DI[facility] 2020-05-16 2020-05-16 Telephone [facility] 12.840.114 [id number] Univers 00:00:00 00:00:00 Lauren Bobo MULTISPEC 350.1.13.10 ity of IALTY [id number] [facility] Districta s CENTER [id number] [facility] AND [address] DIABETES [facility] 2020-05-16 2020-05-16 Telephone Garcia, [facility] 1.2.840.114 [id number] 00:00:00 00:00:00 Aguilar A MULTISPEC 350.1.13.10 IALTY [id number] CENTER [id number] [place] [address] [facility] 2020-05-16 2020-05-16 Telephone [facility] [id number] 00:00:00 00:00:00 Aguilar A MULTISPEC 350.1.13.10 IALTY [id number] CENTER [id number] [place] [address] [facility] 2020-05-15 2020-05-15 Telephone Gamilla-Cru [facility] [id number] [facility] 00:00:00 00:00:00 Eduardo santana MULTISPEC 350.1.13.10 ity of IALTY [id number] [facility] Dist[facility]ta s CENTER [id number] [facility] AND [address] DIABETES [facility]IC 2020-05-15 2020-05-15 Abstract Gamilla-Cru [facility] [id number] [facility] 00:00:00 00:00:00 Eduardo santana MULTISPEC 350.1.13.10 ity of IALTY 4.2.7.2.686 [facility] s [place] [id number] [facility] AND [address] [facility] 2020-05-15 2020-05-15 Telephone Gamilla-Cru [facility] 1.2.840.114 [id number] 00:00:00 00:00:00 doEduardo MULTISPEC 350.1.13.10 IALTY [id number] CENTER [id number] [place] [address] [facility] 2020-05-15 2020-05-15 Abstract Gamilla-Cru [facility] 1.2.840.114 [id number] 00:00:00 00:00:00 Eduardo santana MULTISPEC 350.1.13.10 IALTY 4.2.7.2.686 [place] [id number] [place] [address] [facility] 2020-05-12 2020-05-12 Committee [facility] 1.2.840.114 [id number] Univers 00:00:00 00:00:00 Review Aguilar A MULTISPEC 350.1.13.10 ity of IALTY 4.2.7.2.686 [facility] [id number] [address] DIABETES CLINIC 2020-05-12 2020-05-12 Abstract [facility] [id number] Univers 00:00:00 00:00:00 Aguilar A MULTISPEC 350.1.13.10 ity of IALTY 4.2.7.2.686 [facility] [id number] [address] DI[facility]ES [facility]IC 2020-05-12 2020-05-12 Abstract [facility] [id number] 00:00:00 00:00:00 Aguilar A MULTISPEC 350.1.13.10 IALTY 4.2.7.2.686 [place] [id number] [place] [address] [facility] 2020-05-12 2020-05-12 Committee [facility] 1.2.840.114 [id number] 00:00:00 00:00:00 Review Aguilar A MULTISPEC 350.1.13.10 IALTY 4.2.7.2.686 [place] [id number] [place] [address] [facility] 2020-04-18 2020-04-18 Orders Doctor WHITLOCK 1.2.840.114 [id number] 00:00:00 00:00:00 Only Unassigned, JACQUE 350.1.13.10 [place] [facility] 4.2.7.2.686 [id number] 009 2020-04-18 2020-04-18 Telephone [facility] 1.2.840.114 [id number] Univers 00:00:00 00:00:00 Aguilar A MULTISPEC 350.1.13.10 [place] [id number] [facility] AND [address] [facility] 2020-04-18 2020-04-18 Committee [facility] 1.2.840.114 [id number] Univers 00:00:00 00:00:00 Review Aguilar A MULTISPEC 350.1.13.10 [place]2.7.2.686 [place] [id number] [facility] AND [address] [facility] 2020-04-18 2020-04-18 Orders Doctor KAMLESH 1.2.840.114 [id number] Univers 00:00:00 00:00:00 Only Unassigned, JACQUE 350.1.13.10 ity of [place] [facility] 4.2.7.2.686 [place] as [id number] [place] [address] Branch 2020-04-17 2020-04-17 Abstract [facility] [id number] Univers 00:00:00 00:00:00 Aguilar A MULTISPEC 350.1.13.10 ity of IALTY 4.2.7.2.686 [facility] CENTER [id number] [address] DI[facility]ES [facility] 2020-04-17 2020-04-17 Abstract [facility] [id number] Univers 00:00:00 00:00:00 Aguilar A MULTISPEC 350.1.13.10 [place]2.[place] [id number] [address] [facility] 2020-03-28 2020-03-28 Telephone [facility] [id number] [id number] Univers 00:00:00 00:00:00 Aguilar A MULTISPEC 350.1.13.10 [place]7.2.686 [place] [id number] [address] [facility] 2020-03-14 2020-03-[address] [facility] 1.2.840.114 [id number] Univers 09:14:33 23:59:00 Encounter Gus Crespo 350.1.13.10 ity of [place] 4.2.7.2.686 [facility] [id number] [address] 2020-03-14 2020-03-[address] [facility] 1.2.840.114 [id number] Univers 09:14:13 23:59:00 Encounter Gus Crespo 350.1.13.10 ity of [place] [id number] [place] [phone] 2020-03-14 2020-03-14 Outpatient R [facility] [id number] Univers 12:45:00 12:45:00 [id number] ity of [facility] 2020-03-14 2020-03-14 Outpatient [facility] [id number] Univers 09:30:00 09:30:00 SENDIL ity [facility] 2020-03-14 2020-03-[address] [facility] 1.2.840.114 [id number] Univers 09:13:41 09:13:41 Encounter Gus Crespo 350.1.13.10 ity of [place] [address] [place] [phone] 2020-03-14 2020-03-[address] [facility] 1.2.840.114 [id number] Univers 09:12:26 09:12:26 Encounter Gus Crespo 350.1.13.10 ity of [place] 4.2.7.2.686 [facility] [phone] [address] 2020-02-28 2020-02-28 Office [facility] 1.2.840.114 [id number] 12:46:09 13:47:51 Visit Gus Crespo 350.1.13.10 [place] 4.2.7.2.686 Professio [phone] nal 059 [facility] 2020-02-28 2020-02-28 Office [facility] 1.2.840.114 [id number] Univers 12:46:09 13:47:51 Visit Sendil Ene Crespo 350.1.13.10 ity of [place]2.[place] [facility] [phone] Ny dical nal 059 [facility] 2020-02-28 2020-02-28 Outpatient R HO [facility] [id number] Univers 13:00:00 13:00:00 SENDIL [id number] ity of [facility] 2020-02-28 2020-02-28 Outpatient R HO [facility] [id number] Univers 13:00:00 13:00:00 SENDIL ity of [facility] 2020-02-08 2020-02-08 Outpatient R HO [facility] [id number] Univers 08:00:00 08:00:00 SENDIL [id number] ity of [facility] 2020-02-08 2020-02-08 Outpatient R HO [facility] [id number] Univers 08:00:00 08:00:00 SENDIL ity of [facility] 2020-01-14 2020-01-14 Outpatient R HO [facility] [id number] Univers 09:00:00 09:00:00 SENDIL ity of [facility] 2020-01-14 2020-01-14 Outpatient R HO [facility] [id number] Univers 09:00:00 09:00:00 SENDIL ity of [facility] 2019-12-30 2019-12-30 [facility] 1.2.840.114 [id number] Univers 08:00:00 23:59:00 Encounter Eduardo santana 350.1.13.10 ity of [place] 4.2.7.2.686 [facility] [place] [phone] [address] 2019-12-30 2019-12-30 Laboratory 1, Adc Cardio Fac Room [facility] 1.2.840.114 [id number] Univers 08:46:43 09:34:19 Only Pc, Adc Echo Room 1 - [place] 350.1.1 3.10 ity of [place] 4.2.7.2.686 [facility] [phone] Ny dical nal 059 [facility] 2019-12-30 2019-12-30 Outpatient R [facility] [id number] Univers 09:00:00 09:00:00 ity of [facility] 2019-12-30 2019-12-30 Outpatient R TINY [facility] [id number] Univers 08:00:00 08:00:00 EDUARDO SANTANA [id number] ity of [facility] 2019-11-16 2019-11-16 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-Lab [facility] 1.2.840.114 [id number] Univers 12:37:53 12:52:53 Visit Eduardo Funez MULTISPEC 350.1 .13.10 ity of [place] 4.2.7.2.686 [facility] [place] [phone] [facility] [address] [facility] 2019-11-16 2019-11-16 Office Eduardo Funez [facility] 1.2 .840.114 [id number] Univers 10:48:20 11:08:20 Visit Lauren ZelayaPEC 350.1.13 .10 ity of [place] 4.2.7.2.686 [facility] [place] [phone] [facility] [address] [facility] 2019-11-16 2019-11-16 Outpatient R [facility] [id number] Univers 11:00:00 11:00:00 ity of [facility] 2019-11-16 2019-11-16 Outpatient R GARCIA [facility] [id number] Univers 11:00:00 11:00:00 LAUREN castañeday o f [facility] 2019-11-16 2019-11-16 Orders Doctor WHITLOCK 1.2.840.114 [id number] Univers 00:00:00 00:00:00 Only Unassigned, JACQUE 350.1.13.10 ity of [place] [facility] 4.2.7.2.686 Paulie [phone] [address] 2019-11-15 2019-11-15 Abstract Garcia [facility] [id number] Univers 00:00:00 00:00:00 Lauren Bobo MULTISPEC 350.1.13.10 [place] [phone] [address] [facility] 2019-08-20 2019-08-20 Telephone [facility] 1.2.840.114 [id number] Univers 00:00:00 00:00:00 Lauren Bobo MULTISPEC 350.1.13.10 ity of [place] 4.2.7.2.686 [facility] [place] [phone] [address] [facility] 2019-06-01 2019-06-01 Letter [facility] 1.2.840.114 [id number] Univers 00:00:00 00:00:00 (Out) Lauren Bobo MULTISPEC 350.1.13.10 ity of [place] 4.2.7.2.686 [facility] [place] [phone] [address] [facility] 2018-11-10 2018-11-10 Hospital [facility] [id number] Univers 09:30:00 23:59:00 Encounter Aguilar A [place] 350.1.13.10 ity of [place] [phone] [facility] [address] 2018-11-10 2018-11-10 Orders Doctor KAMLESH 1.2.840.114 [id number] Univers 00:00:00 00:00:00 Only Unassigned, JACQUE 350.1.13.10 ity of [place] [facility] 4.2.7.2.686 Paulie as [phone] [facility] [address] 2018-11-03 2018-11-03 Telephone [facility] 1.2.840.114 [id number] Univers 00:00:00 00:00:00 Lauren Bobo Health 350.1.13.10 [place] [facility] [phone] Ny dical t [place] [address] 2018-11-02 2018-11-02 Committee [facility] 1.2.840.114 [id number] Univers 00:00:00 00:00:00 Review Aguilar A MULTISPEC 350.1.13.10 [place] [phone] [address] [facility] 2018-11-02 2018-11-02 [facility] [id number] Univers 00:00:00 00:00:00 Aguilar A Health 350.1.13.10 [place] of [place]2.[place] [facility] [phone] Ny dical t Center [address] 2018-11-02 2018-11-02 Abstract [facility] [id number] Univers 00:00:00 00:00:00 Aguilar A Health 350.1.13.10 [place]2.[place] [facility] [phone] Ny dical t Center [address] 2018-11-02 2018-11-02 Case [facility] 1.2.840.114 [id number] Univers 00:00:00 00:00:00 Management Aguilar A Health 350.1.13.10 [place]2.[place] [employer] [phone] Ny dical t Center [address] 2018-10-28 2018-10-28 Telephone [facility] 1.2.840.114 [id number] Univers 00:00:00 00:00:00 Aguilar A MULTISPEC 350.1.13.10 [place] [phone] [address] [facility] 2018-10-28 2018-10-28 Telephone [facility] 1.2.840.114 [id number] Univers 00:00:00 00:00:00 Aguilar A Health 350.1.13.10 [place]2.[place] [employer] [phone] Ny dical t Center [address] Results Test Description Test Time Test Results Result Source Comments Comments NM MYOCARDIUM 2020-02-16 Impression: No Univers ity of PERFUSION STRESS 9 reversible perfusion [facility] AND REST 23:17:09 defect. Preserved Branch ejection fraction and normal wallthickening.I was present for the stress procedure.Pharmacologi siva stress myocardial perfusion imaging report Type: Technetium 99 labeled Myoview rest/stress single isotope SPECTimaging with Ragadenoson pharmacological stress and gated SPECT imaging. Indication: dyspnea Clinical history: hypertension, ESRD on dialysis Procedure: Pharmacological stress test was performed with a bolus dose of 0.4 mg ofRagadenoson. Gated myocardial perfusion imaging was performed at restfollowing the injection of 14.9 millicuries of technetium labeled Myoviewand post stress following the injection of 41.2 millicuries of technetiumlabeled tetrofosmin. Findings: The overall quality of the study was good. Stress EKG revealed no inducible ischemia, reported separately. SPECT images demonstrate a small and mild basal inferolateral segment fixedperfusion defect. Gated SPECT images demonstrate normal wall motion and myocardialthickening. Stress Values: ?EDV = 133 mL; ESV = 53 mL; EF = 60%.Rest Values: ?EDV = 144 mL; ESV = 65 mL; EF = 55%. [facility], Radiant Results Inft User - 03/14/2020 5:18 PM CSTPharmacological stress myocardial perfusion imaging reportType: Technetium 99 labeled Myoview rest/stress single isotope SPECTimaging with Ragadenoson pharmacological stress and gated SPECT imaging.Indication: dyspneaClinical history: hypertension, ESRD on dialysis Procedure:Pharmacologi siva stress test was performed with a bolus dose of 0.4 mg ofRagadenoson. Gated myocardial perfusion imaging was performed at restfollowing the injection of 14.9 millicuries of technetium labeled Myoviewand post stress following the injection of 41.2 millicuries of technetiumlabeled tetrofosmin.Findings:T he overall quality of the study was good.Stress EKG revealed no inducible ischemia, reported separately. SPECT images demonstrate a small and mild basal inferolateral segment fixedperfusion defect. Gated SPECT images demonstrate normal wall motion and myocardialthickening.S tress Values: EDV = 133 mL; ESV = 53 mL; EF = 60%.Rest Values: EDV = 144 mL; ESV = 65 mL; EF = 55%.IMPRESSIONImpressi on: No reversible perfusion defect. Preserved ejection fraction and normal wallthickening.I was present for the stress procedure. CT ABDOMEN 2019-12-16 HISTORY: Pretransplant Un iversity of PELVIS W WO 5 evaluation TECHNIQUE: [facility] CONTRAST 13:57:02 Initially noncontrast [facility] enhanced CT scan of the abdomen, pelvisand upper legs up to the knees were obtained. SubsequentlyContrast-e nhanced 64-Multidetector CT angiogram studies ofabdomen/pelvis/lower extremities up to the knees were performed.Subsequently multiple 3-D reformations using MIP processing technique havebeen generated from the 3-D volume data set. FINDINGS: ABDOMINAL ARTERIOGRAM: Extensive arteriosclerosis is noted throughout theaorta, renal arteries and its branches and other major intra-abdominalarterie s. No high-grade strictures detected at the origin of celiac, SMA orIMA arteries. Diffuse moderate disease noted in the left renal artery, lessin the right renal artery. Multiple cystic lesions are seen in bothkidneys. No gross pathology in the liver, spleen, pancreas. Bilateraladrenal gland hypertrophy and short sliding hiatal hernia noted. Mild cardiomegaly, dense mitral annular calcification and faintcalcification in the visualized coronary arteries noted. Normal appendix isvisualized. Moderate diverticulosis of the sigmoid and descending colonnoted without any acute changes of diverticulitis. Irregular shaped 4 cm size umbilical hernia noted containing fat and someadditional fibrosis nonspecific tissue without any complications. PELVIC ARTERIOGRAM: Metallic stents noted in both external iliac arteries.Moderate atherosclerosis noted in internal iliac arteries and theirbranches, mild diffuse atherosclerosis is noted in the common iliacarteries.. RIGHT UPPER LEG ARTERIOGRAM: Extensive atherosclerosis noted with multiplecalcified plaques in the common femoral, superficial femoral, deep femoral,or small and visualized medium arteries in the thigh, popliteal artery andproximal runoff arteries. Multiple strictures are seen in the distalsuperficial femoral arteries, none appear to be high-grade. LEFT UPPER LEG ARTERIOGRAM: Stented atherosclerosis is noted with calcifiedcommon femoral, superficial femoral, deep femoral, popliteal, majorarterial branches in the thigh and runoff circulation. Several stricturesof moderate severity are detected in middle and distal SFA. Incidental note made of prominent Schmorl's nodes in the vertebralendplates of L3, L4, L2, L1 and shallow Schmorl's nodes in some of theother vertebral bodies with mild diffuse sclerosis of the bones, likelysecondary to renal osteodystrophy. CONCLUSIONS: 1. Extensive arteriosclerosis in the abdominal aorta, pelvic and bilateralupper leg arteries with calcifications in the large, medium and small sizearteries.2. Moderate grade strictures are seen in the middle segment of left SFA,slightly less severe strictures are seen in the distal right and left SFAarteries. [facility], Radiant Results Inft User - 12/30/2019 8:58 AM CDTHISTORY: Pretransplant evaluationTECHNIQUE: Initially noncontrast enhanced CT scan of the abdomen, pelvisand upper legs up to the knees were obtained. SubsequentlyContrast-e nhanced 64-Multidetector CT angiogram studies ofabdomen/pelvis/lower extremities up to the knees were performed.Subsequently multiple 3-D reformations using MIP processing technique havebeen generated from the 3-D volume data set.FINDINGS: ABDOMINAL ARTERIOGRAM: Extensive arteriosclerosis is noted throughout theaorta, renal arteries and its branches and other major intra-abdominalarterie s. No high-grade strictures detected at the origin of celiac, SMA orIMA arteries. Diffuse moderate disease noted in the left renal artery, lessin the right renal artery. Multiple cystic lesions are seen in bothkidneys. No gross pathology in the liver, spleen, pancreas. Bilateraladrenal gland hypertrophy and short sliding hiatal hernia noted.Mild cardiomegaly, dense mitral annular calcification and faintcalcification in the visualized coronary arteries noted. Normal appendix isvisualized. Moderate diverticulosis of the sigmoid and descending colonnoted without any acute changes of diverticulitis.Irregul ar shaped 4 cm size umbilical hernia noted containing fat and someadditional fibrosis nonspecific tissue without any complications.PELVIC ARTERIOGRAM: Metallic stents noted in both external iliac arteries.Moderate atherosclerosis noted in internal iliac arteries and theirbranches, mild diffuse atherosclerosis is noted in the common iliacarteries..RIGHT UPPER LEG ARTERIOGRAM: Extensive atherosclerosis noted with multiplecalcified plaques in the common femoral, superficial femoral, deep femoral,or small and visualized medium arteries in the thigh, popliteal artery andproximal runoff arteries. Multiple strictures are seen in the distalsuperficial femoral arteries, none appear to be high-grade.LEFT UPPER LEG ARTERIOGRAM: Stented atherosclerosis is noted with calcifiedcommon femoral, superficial femoral, deep femoral, popliteal, majorarterial branches in the thigh and runoff circulation. Several stricturesof moderate severity are detected in middle and distal SFA.Incidental note made of prominent Schmorl's nodes in the vertebralendplates of L3, L4, L2, L1 and shallow Schmorl's nodes in some of theother vertebral bodies with mild diffuse sclerosis of the bones, likelysecondary to renal osteodystrophy. CONCLUSIONS: 1. Extensive arteriosclerosis in the abdominal aorta, pelvic and bilateralupper leg arteries with calcifications in the large, medium and small sizearteries.2. Moderate grade strictures are seen in the middle segment of left SFA,slightly less severe strictures are seen in the distal right and left SFAarteries. POCT CREATININE 2019-12-30 13:51:00 Test Item Value Reference Range Interpretation Comme nts POCT Creatinine (test code = [id number]) 8.4 mg/dL 0.6-1.3 H Lab Interpretation (test code = 56102-4) Abnormal [facility] 2 [id number] 14:59:37 Upper normal cardiac size with minimal congestion in the central and lowerlungs, slightly less thanin 12/04/2017 study. Fina Mac MD., have reviewed this study and agree with theabove report. XR CHEST 2 VW HISTORY: 43 years-old; Male; transplant evaluation COMPARISON: Chest x-ray 12/04/2017 FINDINGS: The lungs are minimally congested in the central lower regions without anyfocal consol idation. There is no pleural effusion or pneumothorax. Cardiac size is upper normal. No acute osseous structure abnormality. Old fracture deformity in theposterior axillary segment of the right ninth rib noted. [facility], Radiant Results Inft User - 11/10/2018 10:01 AM CDTXR CHEST 2 VWHISTORY: 43 years-old; Male; transplant evaluation COMPARISON: Chest x-ray 12/04/2017FINDINGS: The lungs are minimally congested in the central lower regions without anyfocal consolidation. There is no pleural effusion or pneumothorax.Cardiac size is upper normal.No acute osseous structure abnormality. Old fracture deformity in theposterior axillary segment of the right ninth rib noted.IMPRESSIONUpper normal cardiac size with minimal congestion in the central and lowerlungs, slightly less than in 12/04/2017 study.I, Chris Steen MD., have reviewed this study and agree with theabove report.[facility]
--- NOTE | 2021-02-27 21:16 | RAD REPORT ---
EXAM DESCRIPTION: RAD - Clavicle Right - 02/27/2021 8:58 pm CLINICAL HISTORY: SWELLING COMPARISON: Chest Single View dated 12/17/2020 FINDINGS: No fracture or dislocation is seen. Moderate opacities are seen in both lungs, incompletel y assessed.
--- NOTE | 2021-02-27 22:02 | ER ---
Nurse's Notes [facility] Name: Chase Chacon Jr Age: 45 yrs Sex: Male : 1975 Arrival Date: 02/27/2021 Time: 20:03 Bed 12 Private MD: RANDI MILLARD Diagnosis: Bony prominence right sternoclavicular joint Presentation: 02/27 20:10 Chief complaint: Patient states: Rt upper chest has hard bump x 1 day Denies trauma. da3 Coronavirus screen: Vaccine status: Patient reports being unvaccinated. Ebola Screen: No symptoms or risks identified at this time. Initial Sepsis Screen: Does the patient meet any 2 criteria? No. Patient's initial sepsis screen is negative. Does the patient have a suspected source of infection? No. Patient's initial sepsis screen is negative. Risk Assessment: Do you want to hurt yourself or someone else? Patient reports no desire to harm self or others. Onset of symptoms was February 26, 2021 at 15:00. 20:10 Method Of Arrival: Ambulatory da3 20:10 Acuity: LEON 3 da3 Triage Assessment: 20:13 General: Appears in no apparent distress. comfortable, Behavior is calm, cooperative. da3 Pain: Denies pain. Historical: - Allergies: 20:13 No Known Allergies; da3 - PMHx: 20:13 Hypertensive disorder; kidney failure; hemodialysis; Diabetes mellitus; Cataract; da3 - Immunization history:: Client reports having NOT received the Covid vaccine. - Social history:: Smoking status: Patient denies any tobacco usage or history of. Screenin:51 Abuse screen: Denies threats or abuse. Denies injuries from another. Nutritional lp1 screening: No deficits noted. Tuberculosis screening: No symptoms or risk factors identified. Fall Risk None identified. Assessment: 21:50 General: Appears in no apparent distress. Behavior is calm, cooperative. Pain: Denies lp1 pain. Neuro: Level of Consciousness is awake, alert, obeys commands. Cardiovascular: Patient's skin is warm and dry. Respiratory: Respiratory effort is even, unlabored. GI: No signs and/or symptoms were reported involving the gastrointestinal system. : No signs and/or symptoms were reported regarding the genitourinary system. EENT: No signs and/or symptoms were reported regarding the EENT system. Derm: Skin is pink, warm \T\ dry. Musculoskeletal: Circulation, motion, and sensation intact. bony area noted to right medial collar bone area. 22:17 Reassessment: Patient is alert, oriented x 3, equal unlabored respirations, skin bb warm/dry/pink. provider aware of pt's BP pt has dialysis in the morning and takes BP medication. Pt verbalized understanding of and agrees to plan of care discharge instructions given pt ambulated with steady gait to exit. Vital Signs: 20:10 BP 220 / 107; Pulse 81; Resp 18; Temp 99.0; Pulse Ox 94% on R/A; Weight 86.18 kg; da3 Height 5 ft. 6 in. (167.64 cm); 22:18 BP 219 / 97; Pulse 80; Resp 16 S; Pulse Ox 95% on R/A; bb 20:10 Body Mass Index 30.67 (86.18 kg, 167.64 cm) da3 ED Course: 20:03 Patient arrived in ED. es 20:03 RANDI MILLARD is Private Physician. es 20:13 Triage completed. da3 20:13 Arm band placed on left wrist. da3 20:58 XRAY Clavicle RIGHT In Process Unspecified. EDMS 21:38 Sahara Mondragon, RN is Primary Nurse. lp1 21:39 Nils Sotuh PA is PHCP. jr8 21:39 [place] MD is Attending Physician. jr8 21:51 Patient has correct armband on for positive identification. lp1 22:18 No provider procedures requiring assistance completed. Patient did not have IV access bb during this emergency room visit. Administered Medications: No medications were administered Outcome: 22:01 Discharge ordered by . jr8 22:18 Discharged to home ambulatory. bb 22:18 Condition: stable 22:18 Discharge instructions given to patient, Instructed on discharge instructions, follow up and referral plans. Demonstrated understanding of instructions, follow-up care. 22:19 Patient left the ED. bb Signatures: Dispatcher [employer] EDMS Lydia Ochoa Brenda RN RN bb Sahara Mondragon, RN RN lp1 Nils South PA PA jr8 Jostin Haskins RN JENNIE da3
--- NOTE | 2021-02-27 22:02 | EDPHYS ---
Physician Documentation [facility] [place] Name: Chase Chacon Jr Age: 45 yrs Sex: Male : 1975 Arrival Date: 02/27/2021 Time: 20:03 Bed 12 Private MD: RANDI MILLARD ED Physician [place] HPI: 02/27 21:58 This 45 yrs old Male presents to ER via Ambulatory with complaints of collar jr8 bone prioblem. 21:58 This is a 45-year-old gentleman that came to the emergency room for evaluation of a jr8 clavicular prominence that he had never noticed before in the past. Nontender to palpation and denies any other symptoms at this time.. Historical: - Allergies: 20:13 No Known Allergies; da3 - PMHx: 20:13 Hypertensive disorder; kidney failure; hemodialysis; Diabetes mellitus; Cataract; da3 - Immunization history:: Client reports having NOT received the Covid vaccine. - Social history:: Smoking status: Patient denies any tobacco usage or history of. ROS: 21:58 Eyes: Negative for injury, pain, redness, and discharge, ENT: Negative for injury, jr8 pain, and discharge, Neck: Negative for injury, pain, and swelling, Cardiovascular: Negative for chest pain, palpitations, and edema, Respiratory: Negative for shortness of breath, cough, wheezing, and pleuritic chest pain, Abdomen/GI: Negative for abdominal pain, nausea, vomiting, diarrhea, and constipation, Back: Negative for injury and pain, MS/Extremity: Negative for injury and deformity, Skin: Negative for injury, rash, and discoloration, Neuro: Negative for headache, weakness, numbness, tingling, and seizure. Exam: 21:58 Constitutional: This is a well developed, well nourished patient who is awake, alert, jr8 and in no acute distress. Neck: Trachea midline, no thyromegaly or masses palpated, and no cervical lymphadenopathy. Supple, full range of motion without nuchal rigidity, or vertebral point tenderness. No Meningismus. Cardiovascular: Regular rate and rhythm with a normal S1 and S2. No gallops, murmurs, or rubs. Normal PMI, no JVD. No pulse deficits. Respiratory: Lungs have equal breath sounds bilaterally, clear to auscultation and percussion. No rales, rhonchi or wheezes noted. No increased work of breathing, no retractions or nasal flaring. Skin: Warm, dry with normal turgor. Normal color with no rashes, no lesions, and no evidence of cellulitis. MS/ Extremity: Pulses equal, no cyanosis. Neurovascular intact. Full, normal range of motion. Neuro: Awake and alert, GCS 15, oriented to person, place, time, and situation. Cranial nerves II-XII grossly intact. Motor strength 5/5 in all extremities. Sensory grossly intact. 21:58 Chest/axilla: Inspection: Bony prominence noted over the sternoclavicular region of the right side of the chest wall. No other abnormalities palpated, Palpation: is normal, no crepitus, no tenderness, Lymph nodes: lymphadenopathy is not appreciated. Vital Signs: 20:10 BP 220 / 107; Pulse 81; Resp 18; Temp 99.0; Pulse Ox 94% on R/A; Weight 86.18 kg; da3 Height 5 ft. 6 in. (167.64 cm); 22:18 BP 219 / 97; Pulse 80; Resp 16 S; Pulse Ox 95% on R/A; bb 20:10 Body Mass Index 30.67 (86.18 kg, 167.64 cm) da3 MDM: 21:39 Patient medically screened. jr8 21:58 Data reviewed: vital signs, nurses notes, radiologic studies, plain films. Data jr8 interpreted: Pulse oximetry: on room air is 94 %. Interpretation: acceptable. Counseling: I had a detailed discussion with the patient and/or guardian regarding: the historical points, exam findings, and any diagnostic results supporting the discharge/admit diagnosis, radiology results, the need for outpatient follow up, a family practitioner, to return to the emergency department if symptoms worsen or persist or if there are any questions or concerns that arise at home. ED course: Discussed with patient that his chest x-ray did not show any acute abnormalities. This appears to be a bony prominence of the right sternoclavicular region. Would follow-up with his PCP for further evaluation but otherwise nothing emergently needs to be done with this process at this time.. 02/27 20:17 Order name: XRAY Clavicle RIGHT; Complete Time: 21:39 bb Administered Medications: No medications were administered Disposition: 22:46 Co-signature as Attending Physician, [place] MD I agree with the assessment and ralph plan of care. Disposition Summary: 02/27/21 22:01 Discharge Ordered Location: Home jr8 Problem: new jr8 Symptoms: are unchanged jr8 Condition: Stable jr8 Diagnosis - Bony prominence right sternoclavicular joint jr8 Followup: jr8 - With: Private Physician - When: 2 - 3 days - Reason: Recheck today's complaints, Continuance of care, Re-evaluation by your physician Forms: - Medication Reconciliation Form jr8 - Thank You Letter jr8 - Antibiotic Education jr8 - Prescription Opioid Use jr8 Signatures: Dispatcher [employer] EDMS [place] MD MD cha Roszak, Josh, PA PA jr8 Jostin Haskins, RN RN da3
[2021-02-27 23:13] VITALS: TEMP 99
[2021-02-27 23:15] VITALS: BP 219/97; O2SAT 95
== END 2021-02-27 22:19 | disposition home or self-care (01) ==
LOC: ER 19:59
DX: M25.811 Other specified joint disorders, right shoulder (principal); N19 Unspecified kidney failure; Z99.2 Dependence on renal dialysis
CPT/HCPCS: 99283

== ENCOUNTER 2021-05-26 10:16 | Emergency (ER) | payer OTHER ==
--- OUTSIDE RECORDS SUMMARY | 2021-05-26 10:19 | XMS REPORT | Continuity of Care Document ---
:1975 Author Organization [facility] t Address [address] [place] [address] [address]. [address] [place] [address] Care Team Providers Name Role Phone Jennifer James Primary Care Physician Ho SAINI, Sendil K.H. Attending Clinician HO K.H. Attending Clinician Unavailable Doctor Unassigned, Name Attending Clinician Unavailable Oscar SAINI, A Attending Clinician Navi SAINI, K N Attending Clinician Payers Payer Name Policy Type Policy Number Effective Date Expiration Date S ource Problems Condition Condition Condition Status Onset Resolution Last Treating Co mments Source Name Details Category Date Date Treatment Clinician Date Obesity Obesity Disease Active Univers (BMI (BMI 5-09 ity of 30-39.9) 30-39.9) 00:00: [address] Branch Hypertensi Hypertensi Disease Active U nivers on on 03-17 ity of 00:: [address] Cataract Cataract Disease Active Overview: Un gregg 03-17 Formattin ity of 00:00: g of this [place] note Medical might be Branch different from the original. fixed bilateral ly DM DM Disease Active Univers (diabetes (diabetes 03-17 ity of mellitus) mellitus) [place] Nephropath Nephropath Disease Active U nivers y y ity of [facility] [place] [facility] IBS IBS Disease Active Univers (irritable (irritable it y of bowel bowel [place] syndrome) syndrome) [facility] siva Branch 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 ity of [facility] [place] [facility] ESRD (end ESRD (end Disease Active Uni vers stage stage ity of renal renal [place] disease) disease) Medica l on on Branch dialysis dialysis 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 hyroidism [place] of renal of renal Medica l origin origin Branch Retinopath Retinopath Disease Active U nivers y y ity of [facility] [place] [facility] Allergies, Adverse Reactions, Alerts Allergy Allergy Status Severity Reaction(s) Onset Inactive Treating Comm ents Source Name Type Date Date Clinician PROMETHA DRUG Active Low Anxiety Univers ZINE HCL INGREDI 7 ity of 00:00: [place] [address] [place] [address] Prometha Propensi Active Anxiety "jumpy" Univ ers zine Hcl ty to 10-08 ity of adverse 00:00: [place] reaction Medical s Branch Social History Social Habit Start Date Stop Date Quantity Comments Source History SDOH University o f Alcohol Frequency [facility] edical Branch History SDOH University o f Alcohol Std [place] [facility] Drinks Branch History SDOH University o f Alcohol Binge [facility] [place] Exposure to Not sure [facility] SARS-CoV-2 [facility] (event) [place] Alcohol intake 2020-02-28 2020-02-28 Ex-drinker University of 00:00:00 00:00:00 (finding) [facility] [place] [facility] Tobacco use and 2016-10-08 2016-10-08 Never used Universit y of exposure 00:00:00 00:00:00 [facility] [place] [facility] Alcohol Comment 2016-10-08 2016-10-08 quit 4-5 years Unive rsity of 00:00:00 00:00:00 ago [facility] [place] [facility] Sex Ass[birth year] At [birth year] Universit y of 00:00:00 00:00:00 [facility] [place] [facility] Smoking Status Start Date Stop Date Source Never smoker [facility] Medications Ordered Filled Start Stop Current Ordering Indication Dosage Frequency Signature Comments Components Source Medication Medication Date Date Medication? Clinician (SIG) Name Name ALPRAZolam Yes .25mg Take 0.25 U nivers (XANAX) 1-13 mg by ity of 0.25 mg 09:13: mouth 2 [place] tablet 17 (two) Medical times Branch daily. Insulin 2022-0 Yes 20U inject 20 Unive rs Lispro, 1-13 Units ity of Human, 09:13: under the [place] (HUMALOG) 17 skin 2 Medical 100 unit/mL (two) Branch cartridge times daily. NIFEdipine 2022-0 Yes 90mg Take 90 mg U nivers CC 90 mg SR 1-13 by mouth 2 it y of tablet 09:13: (two) [place] [id number] times Medical daily. Branch Insulin 2022-0 Yes 25U inject 25 Unive rs Glargine 1-13 Units ity of (BASAGLAR 09:13: under the [place] as KWIKPEN 17 skin. Medical U-100 Branch INSULIN) 100 unit/mL (3 mL) injection amLODIPine 2022-0 Yes 10mg Take 10 mg U nivers 10 mg 1-13 by mouth ity of tablet 09:13: daily. [address] Branch aspirin 81 2022-0 Yes 81mg Take 81 mg U nivers mg EC 1-13 by mouth ity of tablet 09:13: daily. [address] Branch sevelamer 2022-0 Yes 800mg Take 800 Uni vers (RENVELA) 1-13 mg by ity of 800 mg 09:13: mouth 3 [place] tablet 17 (three) Medical times Branch daily with meals. ALPRAZolam 2-0 Yes .25mg Take 0.25 U nivers (XANAX) 1-13 mg by ity of 0.25 mg 09:13: mouth 2 [place] tablet 17 (two) Medical times Branch daily. Insulin 2022-0 Yes 20U inject 20 Unive rs Lispro, 1-13 Units ity of Human, 09:13: under the [place] (HUMALOG) 17 skin 2 Medical 100 unit/mL (two) Branch cartridge times daily. NIFEdipine 2022-0 Yes 90mg Take 90 mg U nivers CC 90 mg SR 1-13 by mouth 2 it y of tablet 09:13: (two) [place] [address] times Medical daily. Branch Insulin 2022-0 Yes 25U inject 25 Unive rs Glargine 1-13 Units ity of (BASAGLAR 09:13: under the [place] as KWIKPEN 17 skin. Medical U-100 Branch INSULIN) 100 unit/mL (3 mL) injection amLODIPine 2022-0 Yes 10mg Take 10 mg U nivers 10 mg 1-13 by mouth ity of tablet 09:13: daily. [address] aspirin 81 2021-0 Yes 81mg Take 81 mg U nivers mg EC 1-13 by mouth ity of tablet 09:13: daily. [address] sevelamer 2021-0 Yes 800mg Take 800 Uni vers (RENVELA) 1-13 mg by ity of 800 mg 09:13: mouth 3 [place] tablet 17 (three) Medical times Branch daily with meals. ALPRAZolam 2021-0 Yes .25mg Take 0.25 U nivers (XANAX) 1-13 mg by ity of 0.25 mg 09:13: mouth 2 [place] tablet 17 (two) Medical times Branch daily. Insulin 2021-0 Yes 20U inject 20 Unive rs Lispro, 1-13 Units ity of Human, 09:13: under the [place] (HUMALOG) 17 skin 2 Medical 100 unit/mL (two) Branch cartridge times daily. NIFEdipine 2021-0 Yes 90mg Take 90 mg U nivers CC 90 mg SR 1-13 by mouth 2 it y of tablet 09:13: (two) [place] 17 times Medical daily. Branch Insulin 2021-0 Yes 25U inject 25 Unive rs Glargine 1-13 Units ity of (BASAGLAR 09:13: under the [facility] as KWIKPEN 17 skin. Medical U-100 Branch INSULIN) 100 unit/mL (3 mL) injection amLODIPine 2021-0 Yes 10mg Take 10 mg U nivers 10 mg 1-13 by mouth ity of tablet 09:13: daily. [address] aspirin 81 2021-0 Yes 81mg Take 81 mg U nivers mg EC 1-13 by mouth ity of tablet 09:13: daily. [address] sevelamer 2021-0 Yes 800mg Take 800 Uni vers (RENVELA) 1-13 mg by ity of 800 mg 09:13: mouth 3 [place] tablet 17 (three) Medical times Branch daily with meals. sevelamer 2021-0 2- No 2400mg Take 2,400 Univers 800 mg 1-13 01-13 mg by ity of tablet 09:13: 00:00 mouth 3 [place] 15 :00 (three) Medical times Branch daily with meals. sevelamer 2021-0 2022- No 2400mg Take 2,400 Univers 800 mg -13 -13 mg by ity of tablet 09:13: 00:00 mouth 3 [place] 15 :00 (three) Medical times Branch daily with meals. atorvastati 2018-03 Yes [id number] 40mg Take 1 Univers n 40 mg 1-19 tablet by ity of tablet 00:00: mouth at [place] 00 bedtime. Medical Branch atorvastati 2018-03 Yes [id number] 40mg Take 1 Univers n 40 mg 1-19 tablet by ity of tablet 00:00: mouth at [place] 00 bedtime. Medical Branch atorvastati 2018-03 Yes [id number] 40mg Take 1 Univers n 40 mg 1-19 tablet by ity of tablet 00:00: mouth at [place] 00 bedtime. Medical Branch tiZANidine Yes Univers 2 mg tablet 4-26 ity of 00:00: [place] 00 Medical Branch tiZANidine Yes Univers 2 mg tablet 4-26 ity of 00:00: [place] 00 Medical [place] tiZANidine Yes Univers 2 mg tablet 4-26 ity of 00:00: [place] 00 [facility] Immunizations Ordered Filled Immunization Date Status Comments [facility] e Immunization Name Name Influenza Virus 2020-01-16 Completed Universit y of Vaccine 00:00:00 [facility] [place] [facility] Influenza Virus 2020-01-16 Completed Universit y of Vaccine 00:00:00 [facility] [place] [facility] Influenza Virus 2020-01-16 Completed Universit y of Vaccine 00:00:00 [facility] [place] [facility] Influenza Virus 2016-11-27 Completed Universit y of Vaccine 00:00:00 [facility] [place] [facility] Influenza Virus 2016-11-27 Completed Universit y of Vaccine 00:00:00 [facility] [place] [facility] Influenza Virus 2016-11-27 Completed Universit y of Vaccine 00:00:00 [facility] [place] [facility] Pneumococcal 13 2015-05-12 Completed Universit y of Conjugate, PCV13 00:00:00 [facility] dical (Prevnar 13) Branch Pneumococcal 13 2015-05-12 Completed Universit y of Conjugate, PCV13 00:00:00 [facility] dical (Prevnar 13) Branch Pneumococcal 13 2015-05-12 Completed Universit y of Conjugate, PCV13 00:00:00 [facility] dical (Prevnar 13) [place] PPD (TB) 2015-04-03 Completed University of 00:00:00 [facility] [place] [facility] PPD (TB) 2015-04-03 Completed University of 00:00:00 [facility] [place] [facility] PPD (TB) 2015-04-03 Completed University of 00:00:00 [facility] [place] [facility] Influenza Virus 2014-12-05 Completed Universit y of Vaccine 00:00:00 [facility] [place] [facility] Influenza Virus 2014-12-05 Completed Universit y of Vaccine 00:00:00 [facility] [place] [facility] Influenza Virus 2014-12-05 Completed Universit y of Vaccine 00:00:00 [facility] [place] [facility] PPD (TB) 2014-04-13 Completed University of 00:00:00 [facility] [place] [facility] PPD (TB) 2014-04-13 Completed University of 00:00:00 [facility] [place] [facility] PPD (TB) 2014-04-13 Completed University of 00:00:00 [facility] [place] [facility] Influenza Virus 2013-11-15 Completed Universit y of Vaccine 00:00:00 [facility] [place] [facility] Influenza Virus 2013-11-15 Completed Universit y of Vaccine 00:00:00 [facility] [place] [facility] Influenza Virus 2013-11-15 Completed Universit y of Vaccine 00:00:00 [facility] [place] [facility] PPD (TB) 2013-09-08 Completed University of 00:00:00 [facility] [place] [facility] PPD (TB) 2013-09-08 Completed University of 00:00:00 [facility] [place] [facility] PPD (TB) 2013-09-08 Completed University of 00:00:00 [facility] [place] [facility] Hep B, Adol or Pedi 2012-12-28 Completed Unive rsity of Dosage 00:00:00 [facility] [place] [facility] Hep B, Adol or Pedi 2012-12-28 Completed Unive rsity of Dosage 00:00:00 [facility] [place] [facility] Hep B, Adol or Pedi 2012-12-28 Completed Unive rsity of Dosage 00:00:00 [facility] [place] [facility] Influenza Virus 2012-11-20 Completed Universit y of Vaccine 00:00:00 [facility] [place] [facility] Influenza Virus 2012-11-20 Completed Universit y of Vaccine 00:00:00 [facility] [place] [facility] Influenza Virus 2012-11-20 Completed Universit y of Vaccine 00:00:00 [facility] [place] [facility] Hep B, Adol or Pedi 2012-08-26 Completed Unive rsity of Dosage 00:00:00 [facility] [place] [facility] Hep B, Adol or Pedi 2012-08-26 Completed Unive rsity of Dosage 00:00:00 [facility] [place] [facility] Hep B, Adol or Pedi 2012-08-26 Completed Unive rsity of Dosage 00:00:00 [facility] [place] [facility] Hep B, Adol or Pedi 2012-07-27 Completed Unive rsity of Dosage 00:00:00 [facility] [place] [facility] Hep B, Adol or Pedi 2012-07-27 Completed Unive rsity of Dosage 00:00:00 [facility] [place] [facility] Hep B, Adol or Pedi 2012-07-27 Completed Unive rsity of Dosage 00:00:00 [facility] [place] [facility] Influenza Virus 2012-07-08 Completed Universit y of Vaccine 00:00:00 [facility] [place] [facility] Influenza Virus 2012-07-08 Completed Universit y of Vaccine 00:00:00 [facility] [place] [facility] Influenza Virus 2012-07-08 Completed Universit y of Vaccine 00:00:00 [facility] [place] [facility] Hep B, Adol or Pedi 2012-06-19 Completed Unive rsity of Dosage 00:00:00 [facility] [place] [facility] Pneumococcal 13 2012-06-19 Completed Universit y of Conjugate, PCV13 00:00:00 [facility] dical (Prevnar 13) Branch Hep B, Adol or Pedi 2012-06-19 Completed Unive rsity of Dosage 00:00:00 [facility] [place] [facility] Pneumococcal 13 2012-06-19 Completed Universit y of Conjugate, PCV13 00:00:00 [facility] dical (Prevnar 13) Branch Hep B, Adol or Pedi 2012-06-19 Completed Unive rsity of Dosage 00:00:00 [facility] [place] [facility] Pneumococcal 13 2012-06-19 Completed Universit y of Conjugate, PCV13 00:00:00 [facility] dical (Prevnar 13) Branch PPD (TB) 2012-05-30 Completed University of 00:00:00 [facility] [place] [facility] PPD (TB) 2012-05-30 Completed University 00:00:00 [facility] [place] [facility] PPD (TB) 2012-05-30 Completed University of 00:00:00 [facility] [place] [facility] Vital Signs Vital Name Observation Time Observation Value Comments Source Systolic blood 2021-03-29 15:21:00 141 mm[Hg] Univer sity of pressure [facility] [place] [facility] Diastolic blood 2021-03-29 15:21:00 74 mm[Hg] Unive rsity of pressure [facility] [place] [facility] Heart rate 2021-03-29 15:21:00 72 /min Universi ty of [facility] [place] [facility] Respiratory rate 2021-03-29 15:17:00 22 /min [facility] Body height 2021-03-29 15:17:00 167.6 cm [facility] Body weight 2021-03-29 15:17:00 89.268 kg [facility] BMI 2021-03-29 15:17:00 31.76 kg/m2 [facility] Oxygen saturation in 2021-03-29 15:17:00 94 /min [facility] Arterial blood by [facility] Pulse oximetry [place] Procedures Procedure Date / Time Performing Clinician Source Performed [facility]URANCE [employer]RESPONDENCE 2021-02-28 06:01:00 Doctor Fernie, [facility] [place] [facility] Encounters Start End Encounter Admission Attending Care Care Encounter Source Date/Time Date/Time Type Type Clinicians Facility Department ID 2018-06-22 Inpatient [facility] [id number] [facility] H 07:53:49 2018-06-22 Outpatient [facility] [id number] HH 07:53:48 2021-03-29 2021-03-29 Office Ho [facility] [id number] Univers 09:00:00 09:42:55 Visit Mariposa CRESPO [id number] ity [id number] [facility] [id number] [place] [id number] [facility] 2021-03-29 2021-03-29 Outpatient R HO [facility] [id number] Univers 09:00:00 09:42:55 SENDKAYLA ity [facility] 2021-02-28 2021-02-28 Orders Doctor [place] [id number] [id number] Univers 00:00:00 00:00:00 Only Unassigned, JACQUE [id number] ity of [place] [facility] [id number] [place] [id number] [place] [address] Branch 2020-05-16 2020-05-16 Telephone Oscar [facility] [id number] 00:00:00 00:00:00 Lauren Bobo MULTISPEC [id number] [facility]AL[facility] [id number] CENTER [id number] [facility] 2020-05-16 2020-05-16 Telephone [facility] [id number] 00:00:00 00:00:00 Lauren Bobo MULTISPEC [id number] IALTY [id number] [place] [id number] [facility] 2020-05-15 2020-05-15 Telephone [facility] [id number] 00:00:00 00:00:00 Izzy santana MULTISPEC [id number] IALTY [id number] [place] [id number] [facility] 2020-05-15 2020-05-15 [facility] [id number] 00:00:00 00:00:00 Izzy santana MULTISPEC [id number] IALTY [id number] [place] [id number] [facility] 2020-05-12 2020-05-12 Abstract [facility] [id number] 00:00:00 00:00:00 Lauren Bobo MULTISPEC [id number] IALTY [id number] [place] [id number] [facility] 2020-05-12 2020-05-12 Committee [facility] [id number] 00:00:00 00:00:00 Review Lauren Bobo MULTISPEC [id number] IAL[place] [id number] [place] [id number] [facility] 2020-04-18 2020-04-18 Orders Doctor [place] [id number] 00:00:00 00:00:00 Only Unassigned, JACQUE [id number] [place] [facility] [id number] 2020-02-28 2020-02-28 [facility] [id number] 12:46:09 13:47:51 Visit Mariposa Crespo [id number] [place] [id number] [facility] [id number] [facility] Building Results This patient has no known results.
[2021-05-26] MEDS ORDERED: PROMETHAZINE INJ 25 MG/ML AMP ONE ×2 (11:11→15:11)
[2021-05-26 11:23] LABS: Absolute Lymphocytes (CBC) 0.5 K/uL (0.7-4.9); Lymphocytes % 5.7 % (15.3-44.8); MPV 8.3 fL (7.6-11.3); RBC Red Blood Cell Count 3.85 M/uL (4.33-5.43)
[2021-05-26 11:42] LABS: Albumin 3.6 g/dL (3.4-5.0); Bilirubin Direct 0.4 mg/dL (0-0.2); Bilirubin Total 1.1 mg/dL (0.2-1.0); Potassium 4.3 mmol/L (3.5-5.1); Protein, Total 8.5 g/dL (6.4-8.2)
[2021-05-26 12:36] LABS: SARS-COV-2 RT PCR NEGATIVE (NEGATIVE)
[2021-05-26] MEDS ORDERED: MORPHINE 2 MG/ML SYR ONE (15:11)
--- NOTE | 2021-05-26 16:58 | ER ---
Nurse's Notes [facility] Name: Chase Chacon Jr Age: 46 yrs Sex: Male : 1975 Arrival Date: 05/26/2021 Time: 10:19 Bed 11 Private MD: RANDI MILLARD Diagnosis: Gastroparesis Presentation: 05/26 10:28 Chief complaint: Patient states: Coughing, chest tightness, nausea and vomiting that ww started evening. Coronavirus screen: Vaccine status: Patient reports being unvaccinated. Client denies travel out of the [place] in the last 14 days. Ebola Screen: Patient denies travel to an Ebola-affected area in the 21 days before illness onset. Initial Sepsis Screen: Does the patient meet any 2 criteria? No. Patient's initial sepsis screen is negative. Does the patient have a suspected source of infection? No. Patient's initial sepsis screen is negative. Risk Assessment: Do you want to hurt yourself or someone else? Patient reports no desire to harm self or others. Onset of symptoms is unknown. 10:28 Method Of Arrival: Ambulatory ww 10:28 Acuity: LEON 3 ww Triage Assessment: 10:29 General: Appears uncomfortable, Behavior is cooperative. Pain: Denies pain. EENT: ww Reports pain in uvula, left aspect of posterior pharynx and right aspect of posterior pharynx. Neuro: Level of Consciousness is awake, alert, obeys commands, Oriented to person, place, time, situation, Speech is normal. Cardiovascular: Patient's skin is warm and dry. Respiratory: Airway is patent Respiratory effort is even, unlabored, Respiratory pattern is regular, symmetrical. GI: Reports nausea, vomiting. Historical: - Allergies: 10:29 No Known Allergies; ww - PMHx: 10:29 Cataract; diabetes mellitus; hemodialysis; kidney failure; Hypertensive disorder; ww - PSHx: 11:25 Left arm dialysis fistula; aa5 - Immunization history:: Adult Immunizations not up to date. - Social history:: Smoking status: Patient denies any tobacco usage or history of. Screenin:00 Abuse screen: Denies threats or abuse. Nutritional screening: No deficits noted. aa5 Tuberculosis screening: No symptoms or risk factors identified. Fall Risk None identified. Assessment: 10:50 General: Appears comfortable, Behavior is calm, cooperative. Pain: Denies pain. Neuro: aa5 Level of Consciousness is awake, alert, obeys commands, Oriented to person, place, time, situation. Cardiovascular: Heart tones S1 S2 present Rhythm is regular Dialysis shunt: in the left arm, with palpable thrill, with auscultated bruit, with no erythema, with no edema, no bleeding noted. Respiratory: Reports cough that is non-productive, Airway is patent Respiratory effort is even, unlabored, Respiratory pattern is regular, symmetrical, Denies shortness of breath. GI: Abdomen is round Bowel sounds present X 4 quads. Abd is soft and non tender X 4 quads. Reports nausea, vomiting. : No signs and/or symptoms were reported regarding the genitourinary system. EENT: No signs and/or symptoms were reported regarding the EENT system. Derm: Skin is dry, Skin is normal, Skin temperature is warm. Musculoskeletal: Range of motion: intact in all extremities. 11:20 Reassessment: Patient is alert, oriented x 3, equal unlabored respirations, skin aa5 warm/dry/pink. Pt notified of wait time for lab results. . 12:30 Reassessment: Pt resting in bed with eyes closed, respirations are even and relaxed. aa5 Reports nausea has improved. . 13:55 Reassessment: Pt resting in bed with eyes closed, easy to awaken to verbal stimuli, aa5 equal and unlabored respirations, skin is pink/warm/dry. Denies any complaints at this time. Denies nausea/ vomiting. 15:15 Reassessment: Pt given extra warm blankets for comfort. Resting in bed with eyes aa5 closed, respirations even and unlabored. . Vital Signs: 10:28 BP 229 / 103; Pulse 93; Resp 17; Temp 99.0; Pulse Ox 92% on R/A; Weight 86.18 kg; ww Height 5 ft. 6 in. (167.64 cm); 11:20 BP 205 / 109; Pulse 92; Resp 18 S; Pulse Ox 87% on R/A; aa5 11:20 Pulse Ox 96% on 3 lpm NC; aa5 12:30 BP 204 / 110; Pulse 88; Resp 16 S; Pulse Ox 98% on 3 lpm NC; aa5 13:55 BP 206 / 105; Pulse 89; Resp 18 S; Temp 99.2(O); Pulse Ox 96% on 3 lpm NC; aa5 15:10 BP 206 / 93; Pulse 88; Resp 18 S; Pulse Ox 99% on 3 lpm NC; aa5 10:28 Body Mass Index 30.67 (86.18 kg, 167.64 cm) ED Course: 10:19 Patient arrived in ED. as 10: RANDI MILLARD is Private Physician. as 10: Triage completed. ww 10: Arm band placed on right wrist. ww 10:32 Refugio Bobby NP is PHCP. pm1 10:32 Sunny Lake MD is Attending Physician. pm1 10:50 Patient has correct armband on for positive identification. Bed in low position. Call aa5 light in reach. Side rails up X2. Adult w/ patient. Pulse ox on. NIBP on. 11:18 Initial lab(s) drawn, by ED staff, sent to lab. Inserted saline lock: 20 gauge in right aa5 antecubital area, using aseptic technique. Blood collected. completed by MAIK Ramos. 11:21 Gwendolyn Foster, RN is Primary Nurse. aa5 13:37 No provider procedures requiring assistance completed. aa5 17:37 IV discontinued, bleeding controlled, No redness/swelling at site. Pressure dressing aa5 applied. Administered Medications: 11:20 Drug: Phenergan (promethazine) 12.5 mg Route: IVP; Site: right antecubital; aa5 11:40 Follow up: Response: No adverse reaction aa5 15:13 Drug: Phenergan (promethazine) 12.5 mg Route: IVP; Site: right forearm; aa5 15:19 Follow up: Response: No adverse reaction aa5 15:13 Drug: morphine 2 mg Route: IVP; Site: right forearm; aa5 15:19 Follow up: Response: No adverse reaction aa5 Outcome: 16:58 Discharge ordered by MD. pm1 17:37 Discharged to home aa5 17:37 Condition: stable 17:37 Discharge instructions given to patient, Instructed on discharge instructions, follow up and referral plans. medication usage, safety practices, Demonstrated understanding of instructions, follow-up care, medications, Prescriptions given X 1. 17:38 Patient left the ED. aa5 Signatures: Enedina Swan Audri, RN RN aa5 Refugio Bobby, FLEECE TIER FLEECE TIER pm1 Kaela Heard RN RN ww Corrections: (The following items were deleted from the chart) 10:29 PSHx: None; joanna aa5 15:15 13:55 Temp 99.2F Oral; aa5 aa5
--- NOTE | 2021-05-26 16:58 | EDPHYS ---
Physician Documentation [facility] Name: Chase Chacon Jr Age: 46 yrs Sex: Male : 1975 Arrival Date: 05/26/2021 Time: :19 Bed 11 Private MD: RANDI MILLARD ED Physician Sunny Lake HPI: 05/26 10:49 This 46 yrs old Male presents to ER via Ambulatory with complaints of Cough, pm1 Vomiting. 10:49 The patient presents with abdominal pain in the epigastric area. Onset: The pm1 symptoms/episode began/occurred 2 day(s) ago. The symptoms do not radiate. Associated signs and symptoms: Pertinent positives: nausea and vomiting, Cough, Pertinent negatives: chest pain, diarrhea, fever, shortness of breath. The symptoms are described as achy. Modifying factors: The symptoms are alleviated by nothing, the symptoms are aggravated by food. Severity of pain: in the emergency department the pain is unchanged. The patient has experienced similar episodes in the past, multiple times, and the symptoms today are exactly the same, to previous Gastroparesis. The patient has not recently seen a physician. Patient reports onset of nausea and vomiting with cough onset , feeling similar to his gastroparesis which she is experienced on multiple occasions. Patient missed dialysis treatment on Friday. Dialysis Friday. Arrange for dialysis treatment today be performed on Friday was still not feeling well today and presented to the ER. Historical: - Allergies: 10:29 No Known Allergies; ww - PMHx: 10:29 Cataract; diabetes mellitus; hemodialysis; kidney failure; Hypertensive disorder; ww - PSHx: 11:25 Left arm dialysis fistula; aa5 - Immunization history:: Adult Immunizations not up to date. - Social history:: Smoking status: Patient denies any tobacco usage or history of. ROS: 10:49 Constitutional: Negative for fever, chills, and weight loss, Cardiovascular: Negative pm1 for chest pain, palpitations, and edema. 10:49 MS/Extremity: Negative for injury and deformity, Skin: Negative for injury, rash, and discoloration, Neuro: Negative for headache, weakness, numbness, tingling, and seizure. 10:49 Respiratory: Positive for cough, Negative for shortness of breath. 10:49 Abdomen/GI: Positive for abdominal pain, nausea, vomiting, and diarrhea. 10:49 All other systems are negative. Exam: 10:49 Constitutional: This is a well developed, well nourished patient who is awake, alert, pm1 and in no acute distress. Head/Face: Normocephalic, atraumatic. 10:49 Back: No spinal tenderness. No costovertebral tenderness. Full range of motion. Skin: Warm, dry with normal turgor. Normal color with no rashes, no lesions, and no evidence of cellulitis. MS/ Extremity: Pulses equal, no cyanosis. Neurovascular intact. Full, normal range of motion. 10:49 Cardiovascular: Exam negative for acute changes, Rate: normal, Rhythm: regular, Pulses: no pulse deficits are appreciated, Heart sounds: normal. 10:49 Respiratory: Exam negative for acute changes, respiratory distress, shortness of breath, Breath sounds: are clear throughout. 10:49 Abdomen/GI: Inspection: abdomen appears normal, Palpation: abdomen is soft and non-tender, in all quadrants. 10:49 Neuro: Exam negative for acute changes, Orientation: is normal, Mentation: is normal, Motor: is normal, moves all fours. Vital Signs: 10:28 BP 229 / 103; Pulse 93; Resp 17; Temp 99.0; Pulse Ox 92% on R/A; Weight 86.18 kg; ww Height 5 ft. 6 in. (167.64 cm); 11:20 BP 205 / 109; Pulse 92; Resp 18 S; Pulse Ox 87% on R/A; aa5 11:20 Pulse Ox 96% on 3 lpm NC; aa5 12:30 BP 204 / 110; Pulse 88; Resp 16 S; Pulse Ox 98% on 3 lpm NC; aa5 13:55 BP 206 / 105; Pulse 89; Resp 18 S; Temp 99.2(O); Pulse Ox 96% on 3 lpm NC; aa5 15:10 BP 206 / 93; Pulse 88; Resp 18 S; Pulse Ox 99% on 3 lpm NC; aa5 10:28 Body Mass Index 30.67 (86.18 kg, 167.64 cm) MDM: 10:36 Patient medically screened. [facility] 16:15 Data reviewed: vital signs. pm1 16:19 ED course: Patient reports improvement in his nausea and vomiting and would like to try pm1 drinking some fluids. Will PO challenge. 16:57 Counseling: I had a detailed discussion with the patient and/or guardian regarding: the pm1 historical points, exam findings, and any diagnostic results supporting the discharge/admit diagnosis, lab results, radiology results, the need for outpatient follow up, to return to the emergency department if symptoms worsen or persist or if there are any questions or concerns that arise at home. 05/26 10:47 Order name: Basic Metabolic Panel; Complete Time: 12:10 pm1 05/26 10:47 Order name: CBC with Diff; Complete Time: 12:10 pm1 05/26 10:47 Order name: Hepatic Function; Complete Time: 12:10 pm1 05/26 10:47 Order name: Lipase; Complete Time: 12:10 pm1 05/26 10:48 Order name: COVID-19/FLU A+B (Document "Date of Onset" if Symptomatic); Complete Time: pm1 13:10 05/26 10:47 Order name: IV Saline Lock; Complete Time: 11:21 pm1 05/26 10:47 Order name: Labs collected and sent; Complete Time: 11:21 pm1 Administered Medications: 11:20 Drug: Phenergan (promethazine) 12.5 mg Route: IVP; Site: right antecubital; aa5 11:40 Follow up: Response: No adverse reaction aa5 15:13 Drug: Phenergan (promethazine) 12.5 mg Route: IVP; Site: right forearm; aa5 15:19 Follow up: Response: No adverse reaction aa5 15:13 Drug: morphine 2 mg Route: IVP; Site: right forearm; aa5 15:19 Follow up: Response: No adverse reaction aa5 Disposition: 05/27 18:27 Co-signature as Attending Physician, Sunny Lake MD I agree with the assessment and ralph plan of care. Disposition Summary: 05/26/21 16:58 Discharge Ordered Location: Home pm1 Problem: new pm1 Symptoms: have improved pm1 Condition: Stable pm1 Diagnosis - Gastroparesis pm1 Followup: pm1 - With: Emergency Department - When: As needed - Reason: Worsening of condition Followup: pm1 - With: Private Physician - When: 2 - 3 days - Reason: Recheck today's complaints, Continuance of care, Re-evaluation by your physician Discharge Instructions: - Discharge Summary Sheet pm1 - Gastroparesis pm1 Forms: - Medication Reconciliation Form pm1 - Thank You Letter pm1 - Antibiotic Education pm1 - Prescription Opioid Use pm1 Prescriptions: - promethazine 25 mg Rectal suppository - insert 1 suppository by RECTAL route every 6 hours As needed; 10 suppository; pm1 Refills: 0, Product Selection Permitted - promethazine 25 mg Oral Tablet - take 1 tablet by ORAL route every 6 hours As needed; 20 tablet; Refills: 0, pm1 Product Selection Permitted Signatures: Dispatcher [employer] EDSunny Stanford MD MD cha Calderon, Audri RN RN aa5 Refugio Bobby NP [employer] pm1 Kaela Heard RN RN ww Corrections: (The following items were deleted from the chart) 05/26 11:25 10:29 PSHx: None; ojanna aa5
[2021-05-26 17:48] VITALS: TEMP 99.2
[2021-05-26 17:49] VITALS: BP 206/93; O2SAT 99
== END 2021-05-26 17:38 | disposition home or self-care (01) ==
LOC: ER 10:16
DX: K31.84 Gastroparesis (principal); E11.43 Type 2 diabetes mellitus with diabetic autonomic (poly)neuropathy; R05.9 Cough, unspecified; I12.0 Hypertensive chronic kidney disease with stage 5 chronic kidney disease or end stage renal disease; N18.6 End stage renal disease; Z99.2 Dependence on renal dialysis; Z20.822 Contact with and (suspected) exposure to COVID-19
CPT/HCPCS: 85025; 80048; 36415; 80076; 83690; 0240U; 99284; J2550 ×2; J2270

== ENCOUNTER 2021-06-06 17:34 | Emergency (ER) | payer OTHER ==
--- OUTSIDE RECORDS SUMMARY | 2021-06-06 17:36 | XMS REPORT | Continuity of Care Document ---
:[address] [facility] t Address [address] [place] [address] Dr. Leon [address] [place] [address] Care Team Providers Name Role Phone Jennifer [...] (BMI 5-09 ity of 30-39.9) 30-39.9) 00:00: [address] Branch Hypertensi Hypertensi Disease Active U nivers on on 03-17 ity of 00:: [address] Cataract Cataract Disease Active Overview: Un gregg 03-17 Formattin ity of 00:00: g of this [place] note Medical might be Branch different from the original. fixed bilateral ly DM DM Disease Active Univers (diabetes (diabetes 03-17 ity of mellitus) mellitus) [place] Nephropath Nephropath Disease Active U nivers y y ity of [facility] IBS IBS Disease Active Univers (irritable (irritable it y of bowel bowel [place] syndrome) syndrome) [facility] siva Branch 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 ity of [facility] ESRD (end ESRD (end Disease Active Uni vers stage stage ity of renal renal [place] disease) disease) Medica l on on Branch dialysis dialysis 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 hyroidism [place] renal of renal Medica l origin origin Branch Retinopath Retinopath Disease Active U nivers y y ity of [facility] Allergies, Adverse Reactions, Alerts Allergy Allergy Status Severity Reaction(s) Onset Inactive Treating Comm ents Source Name Type Date Date Clinician PROMETHA DRUG Active Low Anxiety Univers ZINE HCL INGREDI 7 ity of 00:00: [place] [address] [place] [address] Prometha Propensi Active Anxiety "jumpy" Univ ers zine Hcl ty to 10-08 ity of adverse 00:00: [place] reaction Medical s Branch Social History Social Habit Start Date Stop Date Quantity Comments Source History SDOH University o f Alcohol Frequency [facility] edical Branch History SDOH University o f Alcohol Std [place] Medical Drinks Branch History SDOH University o f Alcohol Binge [facility] [place] Exposure to Not sure [facility] SARS-CoV-2 [facility] (event) [place] Alcohol intake 2020-02-28 2020-02-28 Ex-drinker University of 00:00:00 00:00:00 (finding) [facility] Tobacco use and 2016-10-08 2016-10-08 Never used Universit y of exposure 00:00:00 00:00:00 [facility] Alcohol Comment 2016-10-08 2016-10-08 quit 4-5 years Unive rsity of 00:00:00 00:00:00 ago [facility] Sex [birth year] Universit y of 00:00:00 00:00:00 [facility] Smoking Status Start Date Stop Date Source Never smoker [facility] Medications Ordered Filled Start Stop [...] 2 it y of tablet 09:13: (two) [place] [address] times Medical daily. Branch Insulin 2022-0 Yes 25U inject 25 Unive rs Glargine 1-13 Units ity of (BASAGLAR 09:13: under the Paulie as KWIKPEN 17 skin. Medical U-100 Branch INSULIN) 100 unit/mL (3 mL) injection amLODIPine 2022-0 Yes 10mg Take 10 mg U nivers 10 mg 1-13 by mouth ity of tablet 09:13: daily. [address] Branch aspirin 81 2022-0 Yes 81mg Take 81 mg U nivers mg EC 1-13 by mouth ity of tablet 09:13: daily. [address] Branch sevelamer 2022-0 Yes 800mg Take 800 Uni vers (RENVELA) 1-13 mg by ity of 800 mg 09:13: mouth 3 [place] tablet 17 (three) Medical times Branch daily with meals. ALPRAZolam 2-0 Yes .25mg Take 0.25 U nivers (XANAX) 1-13 mg by ity of 0.25 mg 09:13: mouth 2 [place] tablet 17 (two) Medical times Branch daily. Insulin 2022-0 Yes 20U inject 20 Unive rs Lispro, 1-13 Units ity of Human, 09:13: under the [place] (HUMALOG) 17 skin 2 Medical 100 unit/mL (two) Branch cartridge times daily. NIFEdipine 2022-0 Yes 90mg Take 90 mg U nivers CC 90 mg SR 1-13 by mouth 2 it y of tablet 09:13: (two) [place] [address] times Medical daily. Branch Insulin 2022-0 Yes 25U inject 25 Unive rs Glargine 1-13 Units ity of (BASAGLAR 09:13: under the [place] as KWIKPEN 17 skin. Medical U-100 Branch INSULIN) 100 unit/mL (3 mL) injection amLODIPine 2022-0 Yes 10mg Take 10 mg U nivers 10 mg 1-13 by mouth ity of tablet 09:13: daily. [address] aspirin 81 2021-0 Yes 81mg Take 81 mg U nivers mg EC 1-13 by mouth ity of tablet 09:13: daily. [address] sevelamer 2021-0 Yes 800mg Take 800 Uni vers (RENVELA) 1-13 mg by ity of 800 mg 09:13: mouth 3 [place] tablet 17 (three) Medical times Branch daily with meals. ALPRAZolam 2021-0 Yes .25mg Take 0.25 U nivers (XANAX) 1-13 mg by ity of 0.25 mg 09:13: mouth 2 [place] tablet 17 (two) Medical times Branch daily. Insulin 2021-0 Yes 20U inject 20 Unive rs Lispro, 1-13 Units ity of Human, 09:13: under the [place] (HUMALOG) 17 skin 2 Medical 100 unit/mL (two) Branch cartridge times daily. NIFEdipine 2021-0 Yes 90mg Take 90 mg U nivers CC 90 mg SR 1-13 by mouth 2 it y of tablet 09:13: (two) [place] 17 times Medical daily. Branch Insulin 2021-0 Yes 25U inject 25 Unive rs Glargine 1-13 Units ity of (BASAGLAR 09:13: under the [facility] as KWIKPEN 17 skin. Medical U-100 Branch INSULIN) 100 unit/mL (3 mL) injection amLODIPine 2021-0 Yes 10mg Take 10 mg U nivers 10 mg 1-13 by mouth ity of tablet 09:13: daily. [address] aspirin 81 2021-0 Yes 81mg Take 81 mg U nivers mg EC 1-13 by mouth ity of tablet 09:13: daily. [address] sevelamer 2021-0 Yes 800mg Take 800 Uni vers (RENVELA) 1-13 mg by ity of 800 mg 09:13: mouth 3 [place] tablet 17 (three) Medical times Branch daily with meals. sevelamer 2021-0 2- No 2400mg Take 2,400 Univers 800 mg 1-13 01-13 mg by ity of tablet 09:13: 00:00 mouth 3 [place] 15 :00 (three) Medical times Branch daily with meals. sevelamer 2021-0 2022- No 2400mg Take 2,400 Univers 800 mg -13 -13 mg by ity of tablet 09:13: 00:00 mouth 3 [place] 15 :00 (three) Medical times Branch daily with meals. atorvastati 2018-03 Yes [id number] 40mg Take 1 Univers n 40 mg 1-19 tablet by ity of tablet 00:00: mouth at [place] 00 bedtime. Medical Branch atorvastati 2018-03 Yes [id number] 40mg Take 1 Univers n 40 mg 1-19 tablet by ity of tablet 00:00: mouth at [place] 00 bedtime. Medical Branch atorvastati 2018-03 Yes [id number] 40mg Take 1 Univers n 40 mg 1-19 tablet by ity of tablet 00:00: mouth at [place] 00 bedtime. Medical Branch tiZANidine Yes Univers 2 mg tablet 4-26 ity of 00:00: [place] 00 Medical Branch tiZANidine Yes Univers 2 mg tablet 4-26 ity of 00:00: [place] 00 Medical [place] tiZANidine Yes Univers 2 mg tablet 4-26 ity of 00:00: [place] 00 [facility] Immunizations Ordered Filled Immunization Date Status Comments [facility] Immunization Name Name Influenza Virus 2020-01-16 Completed Universit y of Vaccine 00:00:00 [facility] Influenza Virus 2020-01-16 Completed Universit y of Vaccine 00:00:00 [facility] Influenza Virus 2020-01-16 Completed Universit y of Vaccine 00:00:00 [facility] Influenza Virus 2016-11-27 Completed Universit y of Vaccine 00:00:00 [facility] Influenza Virus 2016-11-27 Completed Universit y of Vaccine 00:00:00 [facility] Influenza Virus 2016-11-27 Completed Universit y of Vaccine 00:00:00 [facility] Pneumococcal 13 2015-05-12 Completed Universit y of Conjugate, PCV13 00:00:00 [facility] dical (Prevnar 13) Branch Pneumococcal 13 2015-05-12 Completed Universit y of Conjugate, PCV13 00:00:00 [facility] dical (Prevnar 13) Branch Pneumococcal 13 2015-05-12 Completed Universit y of Conjugate, PCV13 00:00:00 [facility] dical (Prevnar 13) [place] PPD (TB) 2015-04-03 Completed University of 00:00:00 [facility] PPD (TB) 2015-04-03 Completed University of 00:00:00 [facility] PPD (TB) 2015-04-03 Completed University of 00:00:00 [facility] Influenza Virus 2014-12-05 Completed Universit y of Vaccine 00:00:00 [facility] Influenza Virus 2014-12-05 Completed Universit y of Vaccine 00:00:00 [facility] Influenza Virus 2014-12-05 Completed Universit y of Vaccine 00:00:00 [facility] PPD (TB) 2014-04-13 Completed University of 00:00:00 [facility] PPD (TB) 2014-04-13 Completed University of 00:00:00 [facility] PPD (TB) 2014-04-13 Completed University of 00:00:00 [facility] Influenza Virus 2013-11-15 Completed Universit y of Vaccine 00:00:00 [facility] Influenza Virus 2013-11-15 Completed Universit y of Vaccine 00:00:00 [facility] Influenza Virus 2013-11-15 Completed Universit y of Vaccine 00:00:00 [facility] PPD (TB) 2013-09-08 Completed University of 00:00:00 [facility] PPD (TB) 2013-09-08 Completed University of 00:00:00 [facility] PPD (TB) 2013-09-08 Completed University of 00:00:00 [facility] Hep B, Adol or Pedi 2012-12-28 Completed Unive rsity of Dosage 00:00:00 [facility] Hep B, Adol or Pedi 2012-12-28 Completed Unive rsity of Dosage 00:00:00 [facility] Hep B, Adol or Pedi 2012-12-28 Completed Unive rsity of Dosage 00:00:00 [facility] Influenza Virus 2012-11-20 Completed Universit y of Vaccine 00:00:00 [facility] Influenza Virus 2012-11-20 Completed Universit y of Vaccine 00:00:00 [facility] Influenza Virus 2012-11-20 Completed Universit y of Vaccine 00:00:00 [facility] Hep B, Adol or Pedi 2012-08-26 Completed Unive rsity of Dosage 00:00:00 [facility] Hep B, Adol or Pedi 2012-08-26 Completed Unive rsity of Dosage 00:00:00 [facility] Hep B, Adol or Pedi 2012-08-26 Completed Unive rsity of Dosage 00:00:00 [facility] Hep B, Adol or Pedi 2012-07-27 Completed Unive rsity of Dosage 00:00:00 [facility] Hep B, Adol or Pedi 2012-07-27 Completed Unive rsity of Dosage 00:00:00 [facility] Hep B, Adol or Pedi 2012-07-27 Completed Unive rsity of Dosage 00:00:00 [facility] Influenza Virus 2012-07-08 Completed Universit y of Vaccine 00:00:00 [facility] Influenza Virus 2012-07-08 Completed Universit y of Vaccine 00:00:00 [facility] Influenza Virus 2012-07-08 Completed Universit y of Vaccine 00:00:00 [facility] Hep B, Adol or Pedi 2012-06-19 Completed Unive rsity of Dosage 00:00:00 [facility] Pneumococcal 13 2012-06-19 Completed Universit y of Conjugate, PCV13 00:00:00 [facility] dical (Prevnar 13) Branch Hep B, Adol or Pedi 2012-06-19 Completed Unive rsity of Dosage 00:00:00 [facility] Pneumococcal 13 2012-06-19 Completed Universit y of Conjugate, PCV13 00:00:00 [facility] dical (Prevnar 13) Branch Hep B, Adol or Pedi 2012-06-19 Completed Unive rsity of Dosage 00:00:00 [facility] Pneumococcal 13 2012-06-19 Completed Universit y of Conjugate, PCV13 00:00:00 [facility] dical (Prevnar 13) Branch PPD (TB) 2012-05-30 Completed University of 00:00:00 [facility] PPD (TB) 2012-05-30 Completed University 00:00:00 [facility] PPD (TB) 2012-05-30 Completed University of 00:00:00 [facility] Vital Signs Vital Name Observation Time Observation Value Comments Source Systolic blood 2021-03-29 15:21:00 141 mm[Hg] Univer sity of pressure [facility] Diastolic blood 2021-03-29 15:21:00 74 mm[Hg] Unive rsity of pressure [facility] Heart rate 2021-03-29 15:21:00 72 /min Universi ty of [facility] Respiratory rate 2021-03-29 15:17:00 22 /min [facility] Body height 2021-03-29 15:17:00 167.6 cm [facility] Body weight 2021-03-29 15:17:00 89.268 kg [facility] BMI 2021-03-29 15:17:00 31.76 kg/m2 [facility] Oxygen saturation in 2021-03-29 15:17:00 94 /min [facility] Arterial blood by [facility] Pulse oximetry [place] Procedures Procedure Date / Time Performing Clinician Source Performed [facility] [employer] 2021-02-28 06:01:00 Doctor Fernie, [facility] Bastian [facility] Encounters Start End Encounter Admission Attending Care Care Encounter Source Date/Time Date/Time Type Type Clinicians Facility Department ID 2018-06-22 Inpatient [facility] [id number] [facility] 07:53:49 2018-06-22 Outpatient [facility] [id number] HH 07:53:48 2021-03-29 2021-03-29 Office Ho [facility] [id number] Univers 09:00:00 09:42:55 Visit Mariposa CRESPO [id number] ity [facility] [id number] [facility] [id number] [place] [id number] [facility] 2021-03-29 2021-03-29 Outpatient R HO [facility] [id number] Univers 09:00:00 09:42:55 SENDKAYLA ity [facility] [place] [facility] 2021-02-28 2021-02-28 Orders Doctor WHITLOCK [id number] [id number] Univers 00:00:00 00:00:00 Only Unassigned, JCAQUE [id number] ity of Bastian [facility] [id number] Paul[place] as [id number] [place] [id number] Branch 2020-05-16 2020-05-16 Telephone Oscar [facility] [id number] 00:00:00 00:00:00 Lauren Bobo MULTISPEC [id number] IALTY [id number] [facility] [id number] [facility] 2020-05-16 2020-05-16 Telephone [facility] [id number] 00:00:00 00:00:00 Lauren Bobo MULTISPEC [id number] IALTY [id number] [place] [id number] [facility] 2020-05-15 2020-05-15 Telephone [facility] [id number] 00:00:00 00:00:00 Izzy santana MULTISPEC [id number] IALTY [id number] [place] [id number] [facility] 2020-05-15 2020-05-15 [facility] [id number] 00:00:00 00:00:00 Izzy santana MULTISPEC [id number] IALTY [id number] [place] [id number] [facility] 2020-05-12 2020-05-12 Abstract [facility] [id number] 00:00:00 00:00:00 Lauren Bobo MULTISPEC [id number] IALTY [id number] [place] [id number] [facility] 2020-05-12 2020-05-12 Committee [facility] [id number] 00:00:00 00:00:00 Review Lauren Bobo MULTISPEC [id number] IALTY [id number] [place] [id number] [facility] 2020-04-18 2020-04-18 Orders Doctor WHITLOCK [id number] 00:00:00 00:00:00 Only Unassigned, JACQUE [id number] Bastian [facility] [id number] 2020-02-28 2020-02-28 [facility] 1.2.840.114 [id number] 12:46:09 13:47:51 Visit Mariposa Crespo [id number] [place] [id number] [facility] [phone] [facility] Building Results This patient has no known results.
[2021-06-06 19:31] LABS: Absolute Lymphocytes (CBC) 0.8 K/uL (0.7-4.9); Hematocrit 31.5 % (39.6-49.0); Lymphocytes % 14.2 % (15.3-44.8); MPV 7.7 fL (7.6-11.3); RBC Red Blood Cell Count 3.61 M/uL (4.33-5.43)
[2021-06-06 20:32] LABS: Albumin 2.9 g/dL (3.4-5.0); Bilirubin Total 0.6 mg/dL (0.2-1.0); Protein, Total 7.8 g/dL (6.4-8.2)
--- NOTE | 2021-06-06 20:54 | ER ---
Nurse's Notes [facility] Name: Chase Chacon Jr Age: 46 yrs Sex: Male : 1975 Arrival Date: 06/06/2021 Time: 17:34 Bed 8 Private MD: RANDI MILLARD Diagnosis: Vomiting;Gastroparesis Presentation: 06/06 17:47 Chief complaint: Patient states: "My stomach is acting up again, I keep throwing up." ab2 Pt c/o throat pain. Coronavirus screen: Vaccine status: Patient reports being unvaccinated. Client denies travel out of the [place] in the last 14 days. At this time, the client does not indicate any symptoms associated with coronavirus-19. Ebola Screen: Patient negative for fever greater than or equal to 101.5 degrees Fahrenheit, and additional compatible Ebola Virus Disease symptoms Patient denies exposure to infectious person. Patient denies travel to an Ebola-affected area in the 21 days before illness onset. No symptoms or risks identified at this time. Initial Sepsis Screen:. Initial Sepsis Screen: Does the patient meet any 2 criteria? No. Patient's initial sepsis screen is negative. Does the patient have a suspected source of infection? No. Patient's initial sepsis screen is negative. Risk Assessment: Do you want to hurt yourself or someone else? Patient reports no desire to harm self or others. Onset of symptoms is unknown. 17:47 Method Of Arrival: Ambulatory ab2 17:47 Acuity: LEON 3 ab2 Triage Assessment: 17:50 General: Appears in no apparent distress. uncomfortable, Behavior is calm, cooperative, ab2 appropriate for age. Pain: Complains of pain in abdomen. GI: Reports lower abdominal pain, upper abdominal pain, nausea, vomiting. Historical: - Allergies: 17:50 No Known Allergies; ab2 - PMHx: 17:50 Cataract; diabetes mellitus; hemodialysis; Hypertensive disorder; kidney failure; ab2 - PSHx: 17:50 Left arm dialysis fistula; ab2 - Immunization history:: Adult Immunizations up to date. - Social history:: Smoking status: Patient denies any tobacco usage or history of. Screenin:56 Abuse screen: Denies threats or abuse. Denies injuries from another. Nutritional lg3 screening: No deficits noted. Tuberculosis screening: No symptoms or risk factors identified. Fall Risk None identified. Assessment: 21:57 GI: Bowel sounds present X 4 quads. Abd is soft X 4 quads Abdomen is tender to lg3 palpation. Vital Signs: 17:47 BP 159 / 78; Pulse 80; Resp 17; Temp 98.6(TE); Pulse Ox 95% on R/A; Weight 85.28 kg; ab2 Height 5 ft. 6 in. (167.64 cm); Pain 8/10; 20:53 BP 162 / 84; Pulse 84; Resp 16; Pulse Ox 96% on R/A; lg3 21:30 BP 153 / 69; Pulse 89; Resp 17 S; Pulse Ox 97% on R/A; lg3 17:47 Body Mass Index 30.34 (85.28 kg, 167.64 cm) ab2 ED Course: 17:34 Patient arrived in ED. am2 17:34 RANDI MILLARD is Private Physician. am2 17:49 Triage completed. ab2 17:50 Arm band placed on left wrist. ab2 17:51 Violeta Perez, JENNIE is Primary Nurse. jg9 17:53 Patient placed in an exam room, on a stretcher. ss 17:57 Nils South PA is PHCP. jr8 17:57 Michael Mackey MD is Attending Physician. jr8 17:57 Inserted saline lock: 18 gauge in right forearm, using aseptic technique. Blood jg9 collected. 20:52 RANDI MILLARD is Referral Physician. jr8 21:56 No provider procedures requiring assistance completed. IV discontinued, intact, lg3 bleeding controlled, No redness/swelling at site. Pressure dressing applied. 21:57 Patient has correct armband on for positive identification. Bed in low position. Call lg3 light in reach. Side rails up X 1. Administered Medications: 20:59 Drug: Phenergan (promethazine) 25 mg Route: IVP; Site: right forearm; lg3 20:59 Follow up: Response: No adverse reaction lg3 21:55 Drug: Benadryl (diphenhydrAMINE) 25 mg Route: IVP; Site: right forearm; lg3 21:56 Follow up: Response: No adverse reaction lg3 21:56 Drug: Reglan (metoCLOPramide) 10 mg Route: IVP; Site: right forearm; lg3 21:56 Follow up: Response: No adverse reaction lg3 Outcome: 20:53 Discharge ordered by MD. ngo 21:56 Discharged to home ambulatory. lg3 21:56 Condition: stable 21:56 Discharge instructions given to patient, Instructed on discharge instructions, follow up and referral plans. 21:57 Patient left the ED. lg3 Signatures: Leanne Clement RN RN Nils South PA PA jr8 Alicia Daniel Lacie, RN RN lg3 Violeta Perez RN RN jg9 Paulino Sue
--- NOTE | 2021-06-06 20:54 | EDPHYS ---
Physician Documentation [facility] Name: Chase Chacon Jr Age: 46 yrs Sex: Male : 1975 Arrival Date: 06/06/2021 Time: 17:34 Bed 8 Private MD: RANDI MILLARD ED Physician Michael Mackey HPI: 06/06 20:51 This 46 yrs old Male presents to ER via Ambulatory with complaints of Vomiting.jr8 20:51 Onset: The symptoms/episode began/occurred acutely, today. Modifying factors: The jr8 symptoms are alleviated by nothing, the symptoms are aggravated by food. Severity of pain: At its worst the pain was mild in the emergency department the pain has resolved. The patient has experienced similar episodes in the past, a few times. The patient has not recently seen a physician. Patient stated that he has a history of gastroparesis. Every once while requires IV antiemetics to help with it. Was given some at dialysis today but continues to have intermittent vomiting. Denies any abdominal pain at this time. Was able to complete dialysis session and denies any other symptoms at this time.. Historical: - Allergies: 17:50 No Known Allergies; ab2 - PMHx: 17:50 Cataract; diabetes mellitus; hemodialysis; Hypertensive disorder; kidney failure; ab2 - PSHx: 17:50 Left arm dialysis fistula; ab2 - Immunization history:: Adult Immunizations up to date. - Social history:: Smoking status: Patient denies any tobacco usage or history of. ROS: 20:51 Eyes: Negative for injury, pain, redness, and discharge, ENT: Negative for injury, jr8 pain, and discharge, Neck: Negative for injury, pain, and swelling, Cardiovascular: Negative for chest pain, palpitations, and edema, Respiratory: Negative for shortness of breath, cough, wheezing, and pleuritic chest pain, Back: Negative for injury and pain, MS/Extremity: Negative for injury and deformity, Skin: Negative for injury, rash, and discoloration, Neuro: Negative for headache, weakness, numbness, tingling, and seizure. 20:51 Abdomen/GI: Positive for nausea, vomiting, Negative for abdominal pain. Exam: 20:51 Constitutional: This is a well developed, well nourished patient who is awake, alert, jr8 and in no acute distress. Cardiovascular: Regular rate and rhythm with a normal S1 and S2. No gallops, murmurs, or rubs. Normal PMI, no JVD. No pulse deficits. Respiratory: Lungs have equal breath sounds bilaterally, clear to auscultation and percussion. No rales, rhonchi or wheezes noted. No increased work of breathing, no retractions or nasal flaring. Abdomen/GI: Soft, non-tender, with normal bowel sounds. No distension or tympany. No guarding or rebound. No evidence of tenderness throughout. Back: No spinal tenderness. No costovertebral tenderness. Full range of motion. Skin: Warm, dry with normal turgor. Normal color with no rashes, no lesions, and no evidence of cellulitis. MS/ Extremity: Pulses equal, no cyanosis. Neurovascular intact. Full, normal range of motion. Neuro: Awake and alert, GCS 15, oriented to person, place, time, and situation. Cranial nerves II-XII grossly intact. Motor strength 5/5 in all extremities. Sensory grossly intact. Cerebellar exam normal. Normal gait. Vital Signs: 17:47 BP 159 / 78; Pulse 80; Resp 17; Temp 98.6(TE); Pulse Ox 95% on R/A; Weight 85.28 kg; ab2 Height 5 ft. 6 in. (167.64 cm); Pain 8/10; 20:53 BP 162 / 84; Pulse 84; Resp 16; Pulse Ox 96% on R/A; lg3 21:30 BP 153 / 69; Pulse 89; Resp 17 S; Pulse Ox 97% on R/A; lg3 17:47 Body Mass Index 30.34 (85.28 kg, 167.64 cm) ab2 MDM: 17:57 Patient medically screened. jr8 20:51 Data reviewed: vital signs, nurses notes, lab test result(s), and as a result, I will [facility] discharge patient. Data interpreted: Pulse oximetry: on room air is 95 %. Interpretation: normal. Counseling: I had a detailed discussion with the patient and/or guardian regarding: the historical points, exam findings, and any diagnostic results supporting the discharge/admit diagnosis, lab results, the need for outpatient follow up, a family practitioner, a project internship, to return to the emergency department if symptoms worsen or persist or if there are any questions or concerns that arise at home. Response to treatment: the patient's symptoms have markedly improved after treatment. 06/06 17:57 Order name: CBC with Diff; Complete Time: 20:53 06/06 17:57 Order name: CMP; Complete Time: 20:53 jg9 06/06 17:57 Order name: Lipase; Complete Time: 20:53 9 06/06 18:06 Order name: Glucose, Ancillary Testing; Complete Time: 18:55 EDMS 06/06 17:57 Order name: IV Saline Lock; Complete Time: 18:02 g06/06 17:57 Order name: Labs collected and sent; Complete Time: 18:02 g Administered Medications: 20:59 Drug: Phenergan (promethazine) 25 mg Route: IVP; Site: right forearm; lg3 20:59 Follow up: Response: No adverse reaction lg3 21:55 Drug: Benadryl (diphenhydrAMINE) 25 mg Route: IVP; Site: right forearm; lg3 21:56 Follow up: Response: No adverse reaction lg3 21:56 Drug: Reglan (metoCLOPramide) 10 mg Route: IVP; Site: right forearm; lg3 21:56 Follow up: Response: No adverse reaction lg3 Disposition Summary: 06/06/21 20:53 Discharge Ordered Location: Home jr8 Problem: new jr8 Symptoms: have improved jr8 Condition: Stable jr8 Diagnosis - Vomiting jr8 - Gastroparesis jr8 Followup: jr8 - With: RANDI MILLARD - When: 2 - 3 days - Reason: Recheck today's complaints, Continuance of care, Re-evaluation by your physician Discharge Instructions: - Discharge Summary Sheet jr8 - Vomiting, Adult jr8 - Gastroparesis jr8 Forms: - Medication Reconciliation Form jr8 - Thank You Letter jr8 - Antibiotic Education jr8 - Prescription Opioid Use jr8 Addendum: 06/08/2021 06:57 Co-signature as Attending Physician, Michael Mackey MD. r n Signatures: Dispatcher [employer] [facility] Michael Mackey MD MD rn Smirch, Shelby, RN RN ss Roszak, Josh, PA PA jr8 Meghana Wu RN RN lg3 Violeta Perez RN RN jg9 Bleininger, Paulino ab2
[2021-06-06] MEDS ORDERED: PROMETHAZINE INJ 25 MG/ML AMP ONE (20:56)
[2021-06-06] MEDS ORDERED: METOCLOPRAMIDE 10 MG/2mL INJ ONE (21:52)
[2021-06-06] MEDS ORDERED: DIPHENHYDRAMINE 50 MG/ML VIAL ONE (21:52)
[2021-06-06 22:38] VITALS: TEMP 98.6
[2021-06-06 22:41] VITALS: BP 153/69; O2SAT 97
== END 2021-06-06 21:57 | disposition home or self-care (01) ==
LOC: ER 17:34
DX: E11.43 Type 2 diabetes mellitus with diabetic autonomic (poly)neuropathy (principal); K31.84 Gastroparesis; I10 Essential (primary) hypertension; N19 Unspecified kidney failure; Z99.2 Dependence on renal dialysis
CPT/HCPCS: 85025; 36415; 82947; 83690; 80053; 96375; 96374; 99283; J2765; J2550; J1200

== ENCOUNTER 2021-07-15 19:13 | Inpatient (IN) | payer OTHER ==
--- OUTSIDE RECORDS SUMMARY | 2021-07-15 19:17 | XMS REPORT | Continuity of Care Document ---
:1975 [address] [facility] t Address [address] [place] [address] [address] [place] [address] Care Team Providers Name Role Phone Jennifer James Primary Care Physician Ho SAINI, Sendil K.H. Attending Clinician HO K.H. Attending Clinician Unavailable Doctor Unassigned, Name Attending Clinician Unavailable Oscar SAINI, A Attending Clinician Navi SAINI, K N Attending Clinician Payers Payer Name Policy Type Policy Number Effective Date Expiration Date S ource $20 F [id number] 2009 00:00:00 Problems Condition Condition Condition Status Onset Resolution Last Treating Co mments Source Name Details Category Date Date Treatment Clinician Date Obesity Obesity Disease Active Univers (BMI (BMI 5-09 ity of 30-39.9) 30-39.9) 00:00: [place] [address] Medical Branch Hypertensi Hypertensi Disease Active U nivers on on 03-17 ity of 00:: [place] [address] Medical Branch Cataract Cataract Disease Active Overview: Un gregg 03-17 Formattin ity of 00:00: g of this [place] note Medical might be Branch different from the original. 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 [place] of renal of renal Medica l origin origin Branch Retinopath Retinopath Disease Active U nivers y y ity of [facility] Allergies, Adverse Reactions, Alerts Allergy Allergy Status Severity Reaction(s) Onset Inactive Treating Comm ents Source Name Type Date Date Clinician PROMETHA DRUG Active Low Anxiety Univers ZINE HCL INGREDI 7 ity of 00:00: [place] [address] [place] [address] Prometha Propensi Active Anxiety "jumpy" Univ ers zine Hcl ty to 10-08 ity of adverse 00:00: [place] reaction Medical s [place] Social History Social Habit Start Date Stop Date Quantity Comments Source History SDOH University o f Alcohol Frequency [facility] edical Branch History SDWA University o f Alcohol Std [place] Medical Drinks Branch History [facility] University o f Alcohol Binge [place] Medic al Branch Exposure to Not sure [facility] SARS-CoV-2 [facility] (event) [place] Alcohol intake 2020-02-28 2020-02-28 Ex-drinker University of 00:00:00 00:00:00 (finding) [facility] Tobacco use and 2016-10-08 2016-10-08 Never used Universit y of exposure 00:00:00 00:00:00 [facility] Alcohol Comment 2016-10-08 2016-10-08 quit 4-5 years Unive rsity of 00:00:00 00:00:00 ago [facility] Sex Ass[birth year] At [birth year] Universit y of 00:00:00 00:00:00 [facility] Smoking Status Start Date Stop Date Source Never smoker [facility] Medications Ordered Filled Start [...] 2 it y of tablet 09:13: (two) [place] 17 times Medical daily. Branch Insulin 2021-0 Yes 25U inject 25 Unive rs Glargine 1-13 Units ity of (BASAGLAR 09:13: under the [place] as KWIKPEN 17 skin. Medical U-100 Branch INSULIN) 100 unit/mL (3 mL) injection amLODIPine 2021-0 Yes 10mg Take 10 mg U nivers 10 mg 1-13 by mouth ity of tablet 09:13: daily. [address] aspirin 81 2021-0 Yes 81mg Take 81 mg U nivers mg EC 1-13 by mouth ity of tablet 09:13: daily. [address] Branch sevelamer 2021-0 Yes 800mg Take 800 Uni vers (RENVELA) 1-13 mg by ity of 800 mg 09:13: mouth 3 [place] tablet 17 (three) Medical times Branch daily [...] 2 it y of tablet 09:13: (two) [place] 17 times Medical daily. Branch Insulin 2-0 Yes 25U inject 25 Unive rs Glargine 1-13 Units ity of (BASAGLAR 09:13: under the [place] as KWIKPEN 17 skin. Medical U-100 Branch INSULIN) 100 unit/mL (3 mL) injection amLODIPine 2021-0 Yes 10mg Take 10 mg U nivers 10 mg 1-13 by mouth ity of tablet 09:13: daily. [address] aspirin 81 2021-0 Yes 81mg Take 81 mg U nivers mg EC 1-13 by mouth ity of tablet 09:13: daily. [address] Branch sevelamer 2021-0 Yes 800mg Take 800 Uni vers (RENVELA) 1-13 mg by ity of 800 mg 09:13: mouth 3 [place] tablet 17 (three) Medical times Branch daily with meals. ALPRAZolam 2021-0 Yes .25mg Take 0.25 U nivers (XANAX) 1-13 mg by ity of 0.25 mg 09:13: mouth 2 [place] tablet 17 (two) Medical times Branch daily. Insulin 2021-0 Yes 20U inject 20 Unive rs Lispro, 1-13 Units ity of Human, 09:13: under the [place] (HUMALOG) 17 skin 2 Medical 100 unit/mL (two) Branch cartridge times daily. NIFEdipine 2021-0 Yes 90mg Take 90 mg U nivers CC 90 mg SR 1-13 by mouth 2 it y of tablet 09:13: (two) [place] 17 times Medical daily. Branch Insulin 2021-0 Yes 25U inject 25 Unive rs Glargine 1-13 Units ity of (BASAGLAR 09:13: under the [place] as KWIKPEN 17 skin. Medical U-100 Branch INSULIN) 100 unit/mL (3 mL) injection amLODIPine 2021-0 Yes 10mg Take 10 mg U nivers 10 mg 1-13 by mouth ity of tablet 09:13: daily. [address] aspirin 81 2021-0 Yes 81mg Take 81 mg U nivers mg EC 1-13 by mouth ity of tablet 09:13: daily. [address] sevelamer 2021-0 Yes 800mg Take 800 Uni vers (RENVELA) 1-13 mg by ity of 800 mg 09:13: mouth 3 [place] tablet 17 (three) Medical times Branch daily with meals. sevelamer 2021-0 2022- No 2400mg Take 2,400 Univers 800 mg 1-13 01-13 mg by ity of tablet 09:13: 00:00 mouth 3 [place] 15 :00 (three) Medical times Branch daily with meals. sevelamer 2021-0 202- No 2400mg Take 2,400 Univers 800 mg 13 -13 mg by ity of tablet 09:13: 00:00 mouth 3 [place] 15 :00 (three) Medical times [place] daily with meals. atorvastati 2018-03 Yes [id number] 40mg Take 1 Univers n 40 mg 1-19 tablet by ity of tablet 00:00: mouth at [place] 00 bedtime. Medical Branch atorvastati 2018-03 Yes [id number] 40mg Take 1 Univers n 40 mg 1-19 tablet by ity of tablet 00:00: mouth at [place] 00 bedtime. Medical Branch atorvastati 2018-03 Yes [id number] 40mg Take 1 Univers n 40 mg 1-19 tablet by ity of tablet 00:00: mouth at [place] 00 bedtime. Medical Branch tiZANidine Yes Univers 2 mg tablet 4-26 ity of 00:00: [place] 00 Medical [place] tiZANidine Yes Univers 2 mg tablet 4-26 ity of 00:00: [place] 00 [facility] tiZANidine Yes Univers 2 mg tablet 4-26 ity of 00:00: [place] 00 [facility] Immunizations Ordered Filled Immunization Date Status Comments [facility] e Immunization Name Name Influenza Virus 2020-01-16 Completed Universit y of Vaccine 00:00:00 [facility] Influenza Virus 2020-01-16 Completed Universit y of Vaccine 00:00:00 [facility] Influenza Virus 2020-01-16 Completed Universit y of Vaccine 00:00:00 [facility] Influenza Virus 2016-11-27 Completed Universit y of Vaccine 00:00:00 [facility] Influenza Virus 2016-11-27 Completed Universit y of Vaccine 00:00:00 [facility] Influenza Virus 2016-11-27 Completed Universit y of Vaccine 00:00:00 [facility] Pneumococcal 13 2015-05-12 Completed Universit y of Conjugate, PCV13 00:00:00 [facility] dical (Prevnar 13) Branch Pneumococcal 13 2015-05-12 Completed Universit y of Conjugate, PCV13 00:00:00 [facility] dical (Prevnar 13) Branch Pneumococcal 13 2015-05-12 Completed Universit y of Conjugate, PCV13 00:00:00 [facility] dical (Prevnar 13) Branch PPD (TB) 2015-04-03 Completed University of 00:00:00 [facility] PPD (TB) 2015-04-03 Completed University of 00:00:00 [facility] PPD (TB) 2015-04-03 Completed University of 00:00:00 [facility] Influenza Virus 2014-12-05 Completed Universit y of Vaccine 00:00:00 [facility] Influenza Virus 2014-12-05 Completed Universit y of Vaccine 00:00:00 [facility] Influenza Virus 2014-12-05 Completed Universit y of Vaccine 00:00:00 [facility] PPD (TB) 2014-04-13 Completed University of 00:00:00 [facility] PPD (TB) 2014-04-13 Completed University of 00:00:00 [facility] PPD (TB) 2014-04-13 Completed University of 00:00:00 [facility] Influenza Virus 2013-11-15 Completed Universit y of Vaccine 00:00:00 [facility] Influenza Virus 2013-11-15 Completed Universit y of Vaccine 00:00:00 [facility] Influenza Virus 2013-11-15 Completed Universit y of Vaccine 00:00:00 [facility] PPD (TB) 2013-09-08 Completed University of 00:00:00 [facility] PPD (TB) 2013-09-08 Completed University of 00:00:00 [facility] PPD (TB) 2013-09-08 Completed University of 00:00:00 [facility] Hep B, Adol or Pedi 2012-12-28 Completed Unive rsity of Dosage 00:00:00 [facility] Hep B, Adol or Pedi 2012-12-28 Completed Unive rsity of Dosage 00:00:00 [facility] Hep B, Adol or Pedi 2012-12-28 Completed Unive rsity of Dosage 00:00:00 [facility] Influenza Virus 2012-11-20 Completed Universit y of Vaccine 00:00:00 [facility] Influenza Virus 2012-11-20 Completed Universit y of Vaccine 00:00:00 [facility] Influenza Virus 2012-11-20 Completed Universit y of Vaccine 00:00:00 [facility] Hep B, Adol or Pedi 2012-08-26 Completed Unive rsity of Dosage 00:00:00 [facility] Hep B, Adol or Pedi 2012-08-26 Completed Unive rsity of Dosage 00:00:00 [facility] Hep B, Adol or Pedi 2012-08-26 Completed Unive rsity of Dosage 00:00:00 [facility] Hep B, Adol or Pedi 2012-07-27 Completed Unive rsity of Dosage 00:00:00 [facility] Hep B, Adol or Pedi 2012-07-27 Completed Unive rsity of Dosage 00:00:00 [facility] Hep B, Adol or Pedi 2012-07-27 Completed Unive rsity of Dosage 00:00:00 [facility] Influenza Virus 2012-07-08 Completed Universit y of Vaccine 00:00:00 [facility] Influenza Virus 2012-07-08 Completed Universit y of Vaccine 00:00:00 [facility] Influenza Virus 2012-07-08 Completed Universit y of Vaccine 00:00:00 [facility] Hep B, Adol or Pedi 2012-06-19 Completed Unive rsity of Dosage 00:00:00 [facility] Pneumococcal 13 2012-06-19 Completed Universit y of Conjugate, PCV13 00:00:00 [facility] dical (Prevnar 13) Branch Hep B, Adol or Pedi 2012-06-19 Completed Unive rsity of Dosage 00:00:00 [facility] Pneumococcal 13 2012-06-19 Completed Universit y of Conjugate, PCV13 00:00:00 [facility] dical (Prevnar 13) Branch Hep B, Adol or Pedi 2012-06-19 Completed Unive rsity of Dosage 00:00:00 [facility] Pneumococcal 13 2012-06-19 Completed Universit y of Conjugate, PCV13 00:00:00 [facility] dical (Prevnar 13) Branch PPD (TB) 2012-05-30 Completed University of 00:00:00 [facility] PPD (TB) 2012-05-30 Completed University of 00:00:00 [facility] PPD (TB) 2012-05-30 Completed University of 00:00:00 [facility] Vital Signs Vital Name Observation Time Observation Value Comments Source Systolic blood 2021-03-29 15:21:00 141 mm[Hg] Univer sity of pressure [facility] Diastolic blood 2021-03-29 15:21:00 74 mm[Hg] Unive rsity of pressure [facility] Heart rate 2021-03-29 15:21:00 72 /min [facility] Respiratory rate 2021-03-29 15:17:00 22 /min [facility] Body height 2021-03-29 15:17:00 167.6 cm [facility] Body weight 2021-03-29 15:17:00 89.268 kg [facility] BMI 2021-03-29 15:17:00 31.76 kg/m2 [facility] Oxygen saturation in 2021-03-29 15:17:00 94 /min [facility] Arterial blood by [facility] [place] Pulse oximetry [place] Procedures Procedure Date / Time Performing Clinician Source Performed [facility] [employer] 2021-02-28 06:01:00 Doctor Fernie, [facility] [place] [facility] Encounters Start End Encounter Admission Attending Care Care Encounter Source Date/Time Date/Time Type Type Clinicians Facility Department ID 2021-06-09 Outpatient [facility] [id number] [place] 09:39:30 [facility] 2018-06-22 Inpatient [facility] [id number] H H 07:53:49 2018-06-22 [id number] MH HH 07:53:48 2021-03-29 2021-03-29 Office Ho [facility] [id number] [facility] 09:00:00 09:42:55 Visit Mariposa CRESPO [id number] ity [facility] [id number] [place] [facility] [phone] [facility] 2021-03-29 2021-03-29 Outpatient R HO NMALAN [facility] [id number] [facility] 09:00:00 09:42:55 SENDIL ity [facility] 2021-02-28 2021-02-28 Orders Doctor WHITLOCK [id number] Univers 00:00:00 00:00:00 Only UnassJACQUE hidalgo [id number] ity of [place] [facility] [id number] [place] [id number] [place] [address] Branch 2020-05-16 2020-05-16 Telephone Oscar NMALAN [id number] 00:00:00 00:00:00 Aguilar A MULTISPEC [id number] IALTY [id number] [phone] AND [facility] 2020-05-16 2020-05-16 Telephone [facility] [id number] 00:00:00 00:00:00 Agiular A MULTISPEC [id number] IALTY [id number] [id number] [facility] 2020-05-15 2020-05-15 Telephone [facility] [id number] 00:00:00 00:00:00 Izzy santana MULTISPEC [id number] IALTY [id number] [id number] AND [facility] 2020-05-15 2020-05-15 Abstract [facility] [id number] 00:00:00 00:00:00 Izzy santana MULTISPEC [id number] IALTY [id number] [id number] AND [facility] 2020-05-12 2020-05-12 Committee [facility] [id number] 00:00:00 00:00:00 Review Aguilar A MULTISPEC [id number] IALTY [id number] [id number] AND [place] [facility] 2020-05-12 2020-05-12 Abstract [facility] [id number] 00:00:00 00:00:00 Aguilar A MULTISPEC [id number] IALTY [id number] [id number] AND [place] [facility] 2020-04-18 2020-04-18 Dai [facility] [id number] 00:00:00 00:00:00 Only Unassigned, JACQUE [id number] [place] [facility] [id number] 2020-02-28 2020-02-28 Office Ho [facility] [id number] 12:46:09 13:47:51 Visit Mariposa Crespo [id number] [place] [id number] Profess[facility] [phone] [facility] Building Results This patient has no known results.
[2021-07-15 20:06] LABS: Absolute Lymphocytes (CBC) 0.7 K/uL (0.7-4.9); Hematocrit 30.4 % (39.6-49.0); Lymphocytes % 17.8 % (15.3-44.8); MPV 7.9 fL (7.6-11.3); RBC Red Blood Cell Count 3.41 M/uL (4.33-5.43)
[2021-07-15 20:09] LABS: Protime INR 1.13
[2021-07-15 20:39] LABS: Albumin 3.7 g/dL (3.4-5.0); Bilirubin Direct 0.5 mg/dL (0-0.2); Bilirubin Total 1.2 mg/dL (0.2-1.0); Magnesium 2.5 mg/dL (1.8-2.4); Potassium 5.5 mmol/L (3.5-5.1); Protein, Total 8.2 g/dL (6.4-8.2); Troponin High Sensitivity 48.2 pg/mL (<58.9)
--- NOTE | 2021-07-15 20:43 | RAD REPORT ---
EXAM DESCRIPTION: RAD - Chest Single View - 07/15/2021 8:01 pm CLINICAL HISTORY: DYSPNEA Chest pain. COMPARISON: Chest Pa And Lat (2 Views) dated 05/30/2021; Chest Single View dated 12/17/2020; Chest Sin gle View dated 03/29/2020; Chest Single View dated 09/29/2019 FINDINGS: Portable technique limits examination quality. Moderate bilateral pulmonary opacities likely pulmonary edema. Heart is mildly prominent. No displace d fractures. IMPRESSION: Moderate CHF versus volume overload.
[2021-07-15 20:48] LABS: Anisocytosis 1+; Blood Morphology Comment NOTED (NOT SEEN); Platelet Estimate DECR; Poikilocytosis 2+; White Blood Cell Scan OK (OK)
--- NOTE | 2021-07-15 21:09 | EDPHYS ---
Physician Documentation [facility] Name: Chase Chacon Jr Age: 46 yrs Sex: Male : 1975 Arrival Date: 07/15/2021 Time: 19:18 Bed 6 Private MD: ED Physician Sunny Lake HPI: 07/15 19:53 This 46 yrs old Male presents to ER via Ambulatory with complaints of ralph Breathing Difficulty, Anxiety, Fluid Overload. 19:53 The patient has shortness of breath at rest, with light activity. Onset: The ralph symptoms/episode began/occurred 1 day(s) ago. Duration: The symptoms are continuous, and are steadily getting worse. The patient's shortness of breath is aggravated by supine position, walking. Associated signs and symptoms: Pertinent positives: non-productive cough. Severity of symptoms: At their worst the symptoms were mild in the emergency department the symptoms are unchanged. The patient has not experienced similar symptoms in the past. Historical: - Allergies: 19:28 No Known Allergies; ab2 - Home Meds: 22:05 sevelamer carbonate 800 mg oral tab 3 tabs 3 times per day [Active]; telmisartan 40 mg al4 oral tab 1 tab once daily [Active]; hydralazine 10 mg Oral tab 1 tab as needed [Active]; Nifedipine ER Oral 90 mg daily [Active]; promethazine 12.5 mg Oral tab 1 tab as needed [Active]; pantoprazole 40mg oral 1 tab once daily [Active]; ropinirole 4 mg oral tab 1 tab nightly [Active]; tizanidine 4 mg oral tab 1 tab nightly [Active]; alprazolam 1 mg oral tab 1 tab daily [Active]; - PMHx: 19:28 Cataract; diabetes mellitus; hemodialysis; Hypertensive disorder; kidney failure; ab2 - PSHx: 19:28 Left arm dialysis fistula; ab2 - Immunization history:: Adult Immunizations up to date. - Social history:: Smoking status: Patient denies any tobacco usage or history of. - Family history:: not pertinent. ROS: 19:53 Constitutional: Negative for fever, chills, and weight loss, Eyes: Negative for injury, ralph pain, redness, and discharge, ENT: Negative for injury, pain, and discharge, Neck: Negative for injury, pain, and swelling, Cardiovascular: Negative for chest pain, palpitations, and edema, Abdomen/GI: Negative for abdominal pain, nausea, vomiting, diarrhea, and constipation, Back: Negative for injury and pain, : Negative for injury, bleeding, discharge, and swelling, Skin: Negative for injury, rash, and discoloration, Neuro: Negative for headache, weakness, numbness, tingling, and seizure, Psych: Negative for depression, anxiety, suicide ideation, homicidal ideation, and hallucinations, Allergy/Immunology: Negative for hives, rash, and allergies, Endocrine: Negative for neck swelling, polydipsia, polyuria, polyphagia, and marked weight changes. 19:53 Respiratory: Positive for shortness of breath. 19:53 MS/extremity: Positive for swelling, of the right leg and left leg. Exam: 19:53 Constitutional: This is a well developed, well nourished patient who is awake, alert, ralph and in no acute distress. Head/Face: Normocephalic, atraumatic. Eyes: Pupils equal round and reactive to light, extra-ocular motions intact. Lids and lashes normal. Conjunctiva and sclera are non-icteric and not injected. Cornea within normal limits. Periorbital areas with no swelling, redness, or edema. ENT: Nares patent. No nasal discharge, no septal abnormalities noted. Tympanic membranes are normal and external auditory canals are clear. Oropharynx with no redness, swelling, or masses, exudates, or evidence of obstruction, uvula midline. Mucous membranes moist. Neck: Trachea midline, no thyromegaly or masses palpated, and no cervical lymphadenopathy. Supple, full range of motion without nuchal rigidity, or vertebral point tenderness. No Meningismus. Chest/axilla: Normal chest wall appearance and motion. Nontender with no deformity. No lesions are appreciated. Respiratory: Lungs have equal breath sounds bilaterally, clear to auscultation and percussion. No rales, rhonchi or wheezes noted. No increased work of breathing, no retractions or nasal flaring. Abdomen/GI: Soft, non-tender, with normal bowel sounds. No distension or tympany. No guarding or rebound. No evidence of tenderness throughout. Back: No spinal tenderness. No costovertebral tenderness. Full range of motion. Male : Normal genitalia with no discharge or lesions. Skin: Warm, dry with normal turgor. Normal color with no rashes, no lesions, and no evidence of cellulitis. Neuro: Awake and alert, GCS 15, oriented to person, place, time, and situation. Cranial nerves II-XII grossly intact. Motor strength 5/5 in all extremities. Sensory grossly intact. Cerebellar exam normal. Normal gait. Psych: Awake, alert, with orientation to person, place and time. Behavior, mood, and affect are within normal limits. 19:53 Cardiovascular: Rate: normal, Rhythm: regular, Pulses: Pulses are 4+ in bilateral radial, brachial, femoral, popliteal, posterior tibial and and dorsalis pedis arteries.. Heart sounds: normal, Edema: 3+ edema to level of left midcalf and right midcalf, JVD: is noted bilaterally, to the angle of the jaw. 19:53 ECG was reviewed by the Attending Physician. 21:18 peaked t waves ralph Vital Signs: 19:25 BP 218 / 108; Pulse 76; Resp 17; Temp 98.7; Pulse Ox 92% on R/A; Weight 83.91 kg; ab2 Height 5 ft. 6 in. (167.64 cm); Pain 0/10; 19:30 BP 222 / 110; Pulse 74; Resp 20; Pulse Ox 99% on 2 lpm NC; al4 20:30 BP 202 / 89; Pulse 71; Resp 20; Pulse Ox 97% on R/A; al4 21:00 BP 206 / 104; Pulse 65; Resp 19; Pulse Ox 100% on 2 lpm NC; al4 21:54 BP 207 / 105; Pulse 61; Resp 20; Pulse Ox 100% on R/A; al4 22:00 BP 215 / 106; Pulse 63; Resp 19 S; Pulse Ox 100% on R/A; al4 22:19 BP 199 / 86; Pulse 70; Resp 20; Pulse Ox 100% on R/A; al4 23:00 BP 189 / 76; Pulse 84; Resp 19; Pulse Ox 92% on R/A; al4 19:25 Body Mass Index 29.86 (83.91 kg, 167.64 cm) ab2 MDM: 19:33 Patient medically screened. ralph 19:57 Differential diagnosis: Anxiety Reaction CHF exacerbation, Chronic Obstructive ralph Pulmonary Disease pneumonia, pulmonary edema, reactive airway disease, Sepsis. Antibiotic administration: Not indicated. The patient's [place] Deep Vein Thrombosis Score was calculated as follows: Total Score: 0-2 Pts- Low Risk. The patient's pulmonary embolism risk score was calculated as follows: Total Score: 0-2 points. This patient was found to be at low risk for a pulmonary embolism by using the Well's assessment criteria. Immunization status:. Data reviewed: vital signs, nurses notes, lab test result(s), EKG, radiologic studies, plain films. Data interpreted: monitoring engineer: rate is 76 beats/min, rhythm is regular, Pulse oximetry: on room air is 92 %. Test interpretation: by ED physician or midlevel provider: ECG, plain radiologic studies. Counseling: I had a detailed discussion with the patient and/or guardian regarding: the historical points, exam findings, and any diagnostic results supporting the discharge/admit diagnosis, lab results, radiology results, the need for outpatient follow up. 07/15 19:34 Order name: Basic Metabolic Panel; Complete Time: 20:44 [facility] 07/15 19:34 Order name: CBC with Diff; Complete Time: 21:06 [facility] 07/15 19:34 Order name: LFT's; Complete Time: 20:44 [facility] 07/15 19:34 Order name: Magnesium; Complete Time: 20:44 [facility] 07/15 19:34 Order name: NT PRO-BNP; Complete Time: 20:44 [facility] 07/15 19:34 Order name: PT-INR; Complete Time: 20:44 [facility] 07/15 19:34 Order name: Troponin HS; Complete Time: 20:44 [facility] 07/15 19:34 Order name: XRAY Chest (1 view); Complete Time: 20:44 [facility] 07/15 19:34 Order name: SARS-COV-2 RT PCR (Document "Date of Onset" if Symptomatic); Complete Time: [facility] 21:58 07/15 20:49 Order name: CBC Smear Scan; Complete Time: 21:06 [facility] 07/15 21:43 Order name: Glucose, Ancillary Testing; Complete Time: 21:58 [facility] 07/15 23:19 Order name: Glucose, Ancillary Testing [facility] 07/15 19:34 Order name: EKG; Complete Time: 19:34 [facility] 07/15 19:34 Order name: Cardiac monitoring; Complete Time: 20:00 [facility] 07/15 19:34 Order name: EKG - Nurse/Tech; Complete Time: 21:10 [facility] 07/15 19:34 Order name: IV Saline Lock; Complete Time: 20:02 [facility] 07/15 19:34 Order name: Labs collected and sent; Complete Time: 20:02 [facility] 07/15 19:34 Order name: O2 Per Protocol; Complete Time: 19:38 [facility] 07/15 19:34 Order name: O2 Sat Monitoring; Complete Time: 19:38 [facility] EC:53 Rate is 70 beats/min. Rhythm is regular. QRS [place] is Normal. [place] interval is normal. QRS ralph interval is normal. QT interval is normal. No Q waves. T waves are Normal. No ST changes noted. Clinical impression: NSR w/ Non-specific ST/T Changes and No evidence of ischemia. Interpreted by me. Reviewed by me. Administered Medications: 21:36 Drug: Zofran (Ondansetron) 4 mg Route: IVP; Site: right antecubital; al4 23:36 Follow up: Response: No adverse reaction as6 21:39 Drug: morphine 2 mg Route: IVP; Site: right antecubital; al4 23:36 Follow up: Response: No adverse reaction; RASS: Alert and Calm (0) as6 21:41 Drug: Insulin Regular Human 10 units {Co-Signature: as6 (Delon Hawk RN).} Route: al4 IVP; Site: right antecubital; 23:37 Follow up: Response: No adverse reaction as6 21:54 Drug: Lasix (furosemide) 100 mg Route: IVP; Infused Over: 2 mins; Site: right al4 antecubital; 23:37 Follow up: Response: No adverse reaction as6 22:02 Drug: Albuterol - atroVENT (ipratropium) (3:1) (2.5 mg - 0.5 mg) 3 ml Route: Nebulizer; al4 23:37 Follow up: Response: No adverse reaction as6 22:04 Drug: Nitro-Bid (nitroglycerin) Ointment 2 % 1 inches Route: Transdermal; Site: al4 anterior chest wall; 23:36 Follow up: Response: No adverse reaction as6 22:24 Drug: HydrALAZINE 25 mg Route: PO; al4 23:37 Follow up: Response: No adverse reaction as6 22:27 Drug: Kayexalate (polystyrene) 45 grams Route: PO; al4 23:37 Follow up: Response: No adverse reaction as6 Disposition Summary: 07/15/21 21:08 Hospitalization Ordered Hospitalization Status: Observation ralph Provider: Gregory Mackey cha Location: Telemetry/MedSurg (observation) ralph Condition: Fair ralph Problem: new ralph Symptoms: have improved ralph Bed/Room Type: Standard ralph Room Assignment: 229(07/15/21 22:08) cg Diagnosis - Dyspnea ralph - Systolic (congestive) heart failure - /volume overload ralph - Essential (primary) hypertension ralph - Hyperkalemia ralph - Anemia, unspecified ralph - Type 1 diabetes mellitus with hyperglycemia ralph Forms: - Medication Reconciliation Form ralph - SBAR form ralph Signatures: Dispatcher [employer] EDSunny Stanford MD MD cha Attema, Lee, DRY HOUSE OPERATOR-C DRY HOUSE OPERATOR-Cla1 Lina Lawrence RN RN cg Paulino Adams al4 Paulino Sue2 Delon Hawk RN as6 Delon Hawk RN as6 Corrections: (The following items were deleted from the chart) 22:08 21:08 ralph cg
--- NOTE | 2021-07-15 21:09 | ER ---
Nurse's Notes [facility] Name: Chase Chacon Jr Age: 46 yrs Sex: Male : 1975 Arrival Date: 07/15/2021 Time: 19:18 Bed 6 Private MD: Diagnosis: Dyspnea;Systolic (congestive) heart failure-/volume overload;Essential (primary) hypertension;Hyperkalemia;Anemia, unspecified;Type 1 diabetes mellitus with hyperglycemia Presentation: 07/15 19:25 Chief complaint: Patient states: "I have dialysis MWF and im fluid overloaded in my ab2 stomach and it needs drained." Pt c/o SOB and abdominal swelling. Coronavirus screen: Vaccine status: Patient reports being unvaccinated. Client denies travel out of the [place] in the last 14 days. At this time, the client does not indicate any symptoms associated with coronavirus-19. Ebola Screen: Patient negative for fever greater than or equal to 101.5 degrees Fahrenheit, and additional compatible Ebola Virus Disease symptoms Patient denies exposure to infectious person. Patient denies travel to an Ebola-affected area in the 21 days before illness onset. No symptoms or risks identified at this time. Initial Sepsis Screen: Does the patient meet any 2 criteria? No. Patient's initial sepsis screen is negative. Does the patient have a suspected source of infection? No. Patient's initial sepsis screen is negative. Risk Assessment: Do you want to hurt yourself or someone else? Patient reports no desire to harm self or others. Onset of symptoms is unknown. 19:25 Method Of Arrival: Ambulatory ab2 19:25 Acuity: LEON 2 ab2 Triage Assessment: 19:28 General: Appears in no apparent distress. uncomfortable, Behavior is calm, cooperative, ab2 appropriate for age. Pain: Denies pain. EENT: No deficits noted. No signs and/or symptoms were reported regarding the EENT system. Neuro: No deficits noted. Level of Consciousness is awake, alert, obeys commands, Oriented to person, place, time, situation, Appropriate for age Patient Coordinator Front Desk are equal bilaterally Moves all extremities. Gait is steady, Speech is normal. Cardiovascular: Reports shortness of breath. Respiratory: Reports shortness of breath Onset: The symptoms/episode began/occurred at an unknown time. the patient has mild shortness of breath. GI: Reports bloating. Historical: - Allergies: 19:28 No Known Allergies; ab2 - Home Meds: 22:05 sevelamer carbonate 800 mg oral tab 3 tabs 3 times per day [Active]; telmisartan 40 mg al4 oral tab 1 tab once daily [Active]; hydralazine 10 mg Oral tab 1 tab as needed [Active]; Nifedipine ER Oral 90 mg daily [Active]; promethazine 12.5 mg Oral tab 1 tab as needed [Active]; pantoprazole 40mg oral 1 tab once daily [Active]; ropinirole 4 mg oral tab 1 tab nightly [Active]; tizanidine 4 mg oral tab 1 tab nightly [Active]; alprazolam 1 mg oral tab 1 tab daily [Active]; - PMHx: 19:28 Cataract; diabetes mellitus; hemodialysis; Hypertensive disorder; kidney failure; ab2 - PSHx: 19:28 Left arm dialysis fistula; ab2 - Immunization history:: Adult Immunizations up to date. - Social history:: Smoking status: Patient denies any tobacco usage or history of. - Family history:: not pertinent. Screenin:16 Abuse screen: Denies threats or abuse. Nutritional screening: No deficits noted. al4 Tuberculosis screening: No symptoms or risk factors identified. Fall Risk No fall in past 12 months (0 pts). IV access (20 points). Ambulatory Aid- None/Bed Rest/Nurse Assist (0 pts). Gait- Normal/Bed Rest/Wheelchair (0 pts) Mental Status- Oriented to own ability (0 pts). Total Cerda Fall Scale indicates No Risk (0-24 pts). Assessment: 20:00 Reassessment: Patient appears in no apparent distress at this time. patient is alert al4 and oriented. patient ambulatory. . 21:35 General: Appears in no apparent distress. uncomfortable, Behavior is calm, cooperative. al4 Neuro: Level of Consciousness is awake, alert, obeys commands, Oriented to person, place, time, situation. Cardiovascular: Patient's skin is warm and dry. Edema is 2+ to left midcalf, left ankle, right midcalf and right ankle. Respiratory: Airway is patent Respiratory effort is unlabored, Respiratory pattern is regular, Breath sounds are clear bilaterally. GI: Abdomen is distended, Abd is non tender X 4 quads. : Reports "I dont make urine". Musculoskeletal: Circulation, motion, and sensation intact. 21:35 Cardiovascular: Rhythm is regular. al4 22:37 Reassessment: Patient appears in no apparent distress at this time. Patient is alert, al4 oriented x 3, equal unlabored respirations, skin warm/dry/pink. 23:08 Reassessment: Patient appears in no apparent distress at this time. Patient is alert, al4 oriented x 3, equal unlabored respirations, skin warm/dry/pink. Vital Signs: 19:25 BP 218 / 108; Pulse 76; Resp 17; Temp 98.7; Pulse Ox 92% on R/A; Weight 83.91 kg; ab2 Height 5 ft. 6 in. (167.64 cm); Pain 0/10; 19:30 BP 222 / 110; Pulse 74; Resp 20; Pulse Ox 99% on 2 lpm NC; al4 20:30 BP 202 / 89; Pulse 71; Resp 20; Pulse Ox 97% on R/A; al4 21:00 BP 206 / 104; Pulse 65; Resp 19; Pulse Ox 100% on 2 lpm NC; al4 21:54 BP 207 / 105; Pulse 61; Resp 20; Pulse Ox 100% on R/A; al4 22:00 BP 215 / 106; Pulse 63; Resp 19 S; Pulse Ox 100% on R/A; al4 22:19 BP 199 / 86; Pulse 70; Resp 20; Pulse Ox 100% on R/A; al4 23:00 BP 189 / 76; Pulse 84; Resp 19; Pulse Ox 92% on R/A; al4 19:25 Body Mass Index 29.86 (83.91 kg, 167.64 cm) ab2 ED Course: 19:18 Patient arrived in ED. bp1 19:27 Triage completed. ab2 19:28 Arm band placed on right wrist. ab2 19:32 Delon Hawk RN is Primary Nurse. as6 19:33 Sunny Lake MD is Attending Physician. [facility] 20:03 XRAY Chest (1 view) In Process Unspecified. EDMS 21:00 Inserted saline lock: 20 gauge in right antecubital area, using aseptic technique. al4 ,using aseptic technique. by ERT Berto Blood collected. 21:07 Gregory Mackey MD is Hospitalizing Provider. ralph 22:16 Patient has correct armband on for positive identification. al4 23:35 No provider procedures requiring assistance completed. Patient admitted, IV remains in as6 place. Administered Medications: 21:36 Drug: Zofran (Ondansetron) 4 mg Route: IVP; Site: right antecubital; al4 23:36 Follow up: Response: No adverse reaction as6 21:39 Drug: morphine 2 mg Route: IVP; Site: right antecubital; al4 23:36 Follow up: Response: No adverse reaction; RASS: Alert and Calm (0) as6 21:41 Drug: Insulin Regular Human 10 units {Co-Signature: as6 (Delon Hawk RN).} Route: al4 IVP; Site: right antecubital; 23:37 Follow up: Response: No adverse reaction as6 21:54 Drug: Lasix (furosemide) 100 mg Route: IVP; Infused Over: 2 mins; Site: right al4 antecubital; 23:37 Follow up: Response: No adverse reaction as6 22:02 Drug: Albuterol - atroVENT (ipratropium) (3:1) (2.5 mg - 0.5 mg) 3 ml Route: Nebulizer; al4 23:37 Follow up: Response: No adverse reaction as6 22:04 Drug: Nitro-Bid (nitroglycerin) Ointment 2 % 1 inches Route: Transdermal; Site: al4 anterior chest wall; 23:36 Follow up: Response: No adverse reaction as6 22:24 Drug: HydrALAZINE 25 mg Route: PO; al4 23:37 Follow up: Response: No adverse reaction as6 22:27 Drug: Kayexalate (polystyrene) 45 grams Route: PO; al4 23:37 Follow up: Response: No adverse reaction as6 Outcome: 21:08 Decision to Hospitalize by Provider. ralph 23:35 Admitted to Med/surg accompanied by tech, via wheelchair, room 229, with oxygen, with as6 chart, Report called to María SCHNEIDER 23:35 Condition: stable 23:35 Instructed on the need for admit. 23:37 Patient left the ED. as6 Signatures: Dispatcher [employer] Sunny Kumar MD MD cha Paniauga, Brittany bp1 Slawson, Ashby, RN RN as6 Paulino Adams al4 Paulino Sue ab2 Deoln Hawk RN as6 Corrections: (The following items were deleted from the chart) 19:29 19:25 BP 218 / 108; Pulse 76bpm; Resp 17bpm; Pulse Ox 94% RA; Temp 98.7F; 83.91 kg; ab2 Height 5 ft. 6 in.; BMI: 29.8; Pain 0/10; ab2 22:19 21:35 Respiratory: Airway is patent Respiratory effort is unlabored, Respiratory al4 pattern is regular, al4 23:11 22:19 BP 199 / 86; Pulse 70bpm; Resp 18bpm; Pulse Ox 100% RA; al4 al4
[2021-07-15] MEDS ORDERED: NITROGLYCERIN 1 GM PKT TD ONE (21:17)
[2021-07-15] MEDS ORDERED: MORPHINE 2 MG/ML SYR ONE (21:19)
[2021-07-15] MEDS ORDERED: ONDANSETRON 4 MG/2 ML VIAL ONE (21:19)
[2021-07-15] MEDS ORDERED: FUROSEMIDE 100 MG/10 ML VIAL IV ONE (21:19)
[2021-07-15] MEDS ORDERED: ALBUTEROL 2.5 MG/3 ML NEB SOL ONE (21:28)
[2021-07-15] MEDS ORDERED: SOD POLYSTYREN SUL 15 GM/60 ML UCUP ONE (21:30)
[2021-07-15] MEDS ORDERED: INSULIN -REGULAR HUMAN 50 UNIT/0.5 ML ML ONE (21:30)
[2021-07-15] MEDS ORDERED: IPRATROPIUM BROM 0.5MG/2.5ML ONE (21:30)
--- NOTE | 2021-07-15 22:21 | P.HP ---
Certification for Inpatient Patient admitted to: Observation With expected LOS: <2 Midnights Patient will require the following post-hospital care: None Practitioner: I am a practitioner with admitting privileges, knowledge of patient current condition, hospital course, and medical plan of care. Services: Services provided to patient in accordance with Admission requirements found in Title 42 Section 412.3 of the Code of Federal Regulations Patient History Date of Service: 07/15/21 Primary Care Provider: NephrologyDr. Mccoy Reason for admission: Volume overload, hyperkalemia History of Present Illness: 46-year-old male patient with history of ESRD on HD MWF, diabetes type 2insulin-dependent and hypertension presents the emergency department for shortness of breath, edema. Patient reports over the course of the last 1 to 2 weeks he has noticed has had increased base level edema, dyspnea even after dialysis. He has been attempting to schedule additional chair time but has been unsuccessful. Patient is reporting orthopnea, paroxysmal nocturnal dyspnea, shortness of breath at rest. His labs in the ER were significant for mild hyperkalemia which was treated in the ER as well as normocytic anemia and hyperglycemia. ED provider wishes to admit for further evaluation and management of volume overload, hyperkalemia. Allergies No Known Allergies Allergy (Verified 01/15/21 14:01) Home Medications: ALPRAZolam [Alprazolam] 1 mg PO DAILYPRN PRN 09/29/19 Atorvastatin Calcium 40 mg PO BEDTIME 09/29/19 Insulin Aspart [Novolog Penfill] 20 unit SQ TIDWM 09/29/19 Sevelamer Carbonate [Renvela*] 3 tab PO TIDWM 09/29/19 Dextrose [Glucose] 4 gm PO PRN PRN #30 tab.chew 03/29/20 Carvedilol [Coreg] 25 mg PO BID 01/15/21 Hydralazine [Apresoline] 10 mg PO QIDP PRN 01/15/21 Insulin Glargine,Hum.rec.anlog [Basaglar Kwikpen U-100] 24 unit SQ BEDTIME 01/15/21 Nifedipine [Nifedipine ER] 30 mg PO DAILY 01/15/21 Promethazine HCl 12.5 mg PO BIDP PRN 01/15/21 Ropinirole HCl 4 mg PO DAILYPRN PRN 01/15/21 Telmisartan [Micardis] 40 mg PO BEDTIME 01/15/21 Tizanidine HCl [Zanaflex] 4 mg PO DAILYPRN PRN 01/15/21 - Past Medical/Surgical History Diabetic: Yes -: Diabetes mellitus type 2, insulin dependent -: Hypertension -: GERD -: Diabetic gastroparesis -: End stage renal disease on hemodialysis -: Cataract surgery -: Laser for Retinal Detachment -: HD fistula surgery Psychosocial/ Personal History: Patient is . He has no children. - Family History Father -: Diabetes, Kidney disease - Social History Smoking Status: Never smoker Alcohol use: Yes CD- Drugs: No Caffeine use: No Place of Residence: Home Review of Systems 10-point ROS is otherwise unremarkable Respiratory: Shortness of Breath, SOB with Excertion, As per HPI Cardiovascular: Paroxysmal Noc. Dyspnea, As per HPI Physical Examination - Physical Exam General: Alert, In no apparent distress, Oriented x3 HEENT: Atraumatic, PERRLA, Mucous membr. moist/pink, EOMI, Sclerae nonicteric Neck: Supple, 2+ carotid pulse no bruit, No LAD, Without JVD or thyroid abnormality Respiratory: Diminished, Crackles/rales Cardiovascular: Regular rate/rhythm, Normal S1 S2, Edema (Nonpitting edema bilateral lower extremities) Capillary refill: <2 Seconds Gastrointestinal: Normal bowel sounds, No tenderness Musculoskeletal: No tenderness Integumentary: No rashes Neurological: Normal speech, Normal strength at 5/5 x4 extr, Normal tone, Normal affect - Studies Laboratory Data (last 24 hrs) 07/15/21 19:56: PT 12.5, INR 1.13 07/15/21 19:56: WBC 3.9 L, Hgb 10.0 L, Hct 30.4 L, Plt Count 88 L 07/15/21 19:56: Sodium 133 L, Potassium 5.5 H, BUN 83 H, Creatinine 9.84 H*, Glucose 379 H, Magnesium 2.5 H, Total Bilirubin 1.2 H, AST 20, ALT 25, Alkaline Phosphatase 99 Assessment and Plan - Plan Assessment: ESRD on HD with hypervolemia, hyperkalemia Diabetes mellitus type 2insulin-dependent with hyperglycemia Hypertension Normocytic anemia Plan: ESRD on HD with hypervolemia, hyperkalemia: Patient is compliant with his current dialysis regimen has not missed any sessions, will need to have dialysis during hospitalization nephrology has been consulted. Appreciate further input from nephrology if patient would benefit with additional sessions. Will provide supportive treatment this evening for dyspnea, hyperkalemia which was treated in the emergency department. Diabetes mellitus type 2insulin-dependent with hyperglycemia: ACH S Accu-Chek, sliding scale insulin. Patient reports that he takes sliding scale at home no long-acting. Hypertension: Continue home medications once verified. Normocytic anemia: Suspect anemia of chronic disease, monitor hemoglobin. DVT PPX: Heparin Code status: Full Discharge Plan: Home Plan to discharge in: 24 Hours - Advance Directives Does patient have a Living Will: No Does patient have a Durable POA for Healthcare: No - Code Status/Comfort Care Code Status Assessed: Yes (Full code) Critical Care: No Time Spent Managing Pts Care (In Minutes): 55
[2021-07-15] MEDS ORDERED: HYDRALAZINE HCL 25 MG TABLET ONE (22:25)
[2021-07-16] MEDS ORDERED: HYDRALAZINE HCL 20 MG/ML VIAL IV PRN (01:15)
[2021-07-16] MEDS ORDERED: HYDROCODONE/APAP 5/325 MG TAB PO PRN (01:15)
[2021-07-16] MEDS ORDERED: ALPRAZOLAM 1 MG TABLET PO PRN (01:34)
[2021-07-16] MEDS ORDERED: HYDRALAZINE HCL 10 MG TABLET PO PRN (01:34)
[2021-07-16 05:59] LABS: Absolute Lymphocytes (CBC) 0.8 K/uL (0.7-4.9); Hematocrit 28.1 % (39.6-49.0); Lymphocytes % 21.8 % (15.3-44.8); MPV 8.2 fL (7.6-11.3)
[2021-07-16 06:26] LABS: Albumin 3.3 g/dL (3.4-5.0); Bilirubin Total 0.9 mg/dL (0.2-1.0); Potassium 5.5 mmol/L (3.5-5.1); Protein, Total 7.5 g/dL (6.4-8.2)
--- NOTE | 2021-07-16 06:44 | P.PN ---
Date of Service: 07/16/21 Subjective: has not had HD yet symptoms unchanged denies new / worsening symptoms ROS: 10 point ROS as noted above, otherwise negative Physical exam GEN: Alert, oriented, NAD HEENT: Normal conjunctiva, sclera anicteric CV: Regular rate and rhythm, +b/l lower extremity edema Pulm: Nonlabored at rest, diminished bilaterally, mild crackles, on 2L NC ABD: Soft, nontender, nondistended Neuro: Normal speech, normal affect Problem List ESRD on HD with hypervolemia, hyperkalemia Diabetes mellitus type 2insulin-dependent with hyperglycemia Hypertension Anemia chronic disease oxygen supplementation as needed Nephrology consult encounter for hemodialysis Patient with significant hypertension, would benefit from dialysis, restarted home medications, as needed medications ordered at continue home meds Code: full Dispo: home, ~2 days Time Spent Managing Pts Care (In Minutes): 35
[2021-07-16 06:54] LABS: Blood Morphology Comment NOTED (NOT SEEN); White Blood Cell Scan OK (OK)
[2021-07-16 06:55] LABS: Anisocytosis 2+; Macrocytosis 2+; Platelet Estimate DECR; Platelets, Giant FEW
[2021-07-16] MEDS: NIFEDIPINE XL 90 MG TABLET PO SCH (08:21)
[2021-07-16] MEDS: PANTOPRAZOLE 40MG TABLET PO SCH (08:23)
[2021-07-16] MEDS: SEVELAMER CARBONATE 800 MG TABLET PO SCH ×3 (08:23→17:00)
[2021-07-16] MEDS: INSULIN -REGULAR HUMAN 50 UNIT/0.5 ML ML SQ SCH ×4 (08:23→20:44)
[2021-07-16] MEDS: HEPARIN 5000 UNIT/ML 1 ML VIAL SQ SCH ×3 (08:24→20:57)
[2021-07-16] MEDS ORDERED: NIFEDIPINE XL 30 MG TABLET PO SCH (09:00)
[2021-07-16] MEDS ORDERED: MANNITOL 25% 12.5 GM/50 ML VIAL IV PRN (10:09)
[2021-07-16] MEDS ORDERED: NA CHLORIDE 0.9% 1,000 ML IV PRN (10:09)
--- NOTE | 2021-07-16 10:15 | P.CNS ---
Date of Consult: 07/16/21 Reason for Consult: ESRD Requesting Physician: Gregory Mackey Primary Care Provider: NephrologyDr. Mccoy Chief Complaint: Volume overload, hyperkalemia History of Present Illness: 46-year-old male patient with history of ESRD on HD MWF, diabetes type 2insulin-dependent and hypertension presents the emergency department for shortness of breath, edema. Patient reports over the course of the last 1 to 2 weeks he has noticed has had increased base level edema, dyspnea even after dialysis. He has been attempting to schedule additional chair time but has been unsuccessful. Patient is reporting orthopnea, paroxysmal nocturnal dyspnea, shortness of breath at rest. His labs in the ER were significant for mild hyperkalemia which was treated in the ER as well as normocytic anemia and hyperglycemia. ED provider wishes to admit for further evaluation and management of volume overload, hyperkalemia. 19:53 This 46 yrs old Male presents to ER via Ambulatory with complaints of ralph Breathing Difficulty, Anxiety, Fluid Overload. 19:53 The patient has shortness of breath at rest, with light activity. Onset: The ralph symptoms/episode began/occurred 1 day(s) ago. Duration: The symptoms are continuous, and are steadily getting worse. The patient's shortness of breath is aggravated by supine position, walking. Associated signs and symptoms: Pertinent positives: non-productive cough. Severity of symptoms: At their worst the symptoms were mild in the emergency department the symptoms are unchanged. The patient has not experienced similar symptoms in the past. Allergies No Known Allergies Allergy (Verified 01/15/21 14:01) Home medications list reviewed: Yes Home Medications: ALPRAZolam [Alprazolam] 1 mg PO DAILYPRN PRN 09/29/19 Atorvastatin Calcium 40 mg PO BEDTIME 09/29/19 Insulin Aspart [Novolog Penfill] 20 unit SQ TIDWM 09/29/19 Sevelamer Carbonate [Renvela*] 3 tab PO TIDWM 09/29/19 Hydralazine [Apresoline] 10 mg PO Q8HP PRN 01/15/21 Nifedipine [Nifedipine ER] 90 mg PO DAILY 01/15/21 Promethazine HCl 12.5 mg PO Q4HP PRN 01/15/21 Ropinirole HCl 4 mg PO BEDTIME 01/15/21 Telmisartan [Micardis] 40 mg PO BEDTIME 01/15/21 Tizanidine HCl [Zanaflex] 4 mg PO BEDTIME 01/15/21 Pantoprazole [Protonix Tab*] 40 mg PO DAILY 07/15/21 - Past Medical/Surgical History Diabetic: Yes -: Diabetes mellitus type 2, insulin dependent -: Hypertension -: GERD -: Diabetic gastroparesis -: End stage renal disease on HD/ Dr. Mccoy -: Cataract surgery -: Laser for Retinal Detachment -: HD fistula surgery Psychosocial/ Personal History: Patient is . He has no children. - Family History Father Medical History: Diabetes, Kidney disease - Social History Smoking Status: Unknown if ever smoked Alcohol use: Yes CD- Drugs: No Caffeine use: No Place of Residence: Home Review of Systems 10-point ROS is otherwise unremarkable General: Malaise Respiratory: SOB with Excertion Cardiovascular: Edema Neurological: Weakness Physical Examination Temp Pulse Resp BP Pulse Ox 97.1 F 78 18 217/91 H 95 07/16/21 08:00 07/16/21 08:21 07/16/21 08:00 07/16/21 08:21 07/16/21 08:00 General: Oriented x3, Cooperative HEENT: Atraumatic Neck: Supple, JVD distended Respiratory: Diminished Cardiovascular: Regular rate/rhythm, Edema Gastrointestinal: Soft and benign, Non-distended Musculoskeletal: No clubbing, No contractures Integumentary: No rashes, No cyanosis Neurological: Normal speech Laboratory Data (last 24 hrs) 07/16/21 05:28: Sodium 133 L, Potassium 5.5 H, BUN 88 H, Creatinine 10.10 H*, Glucose 271 H, Total Bilirubin 0.9, AST 17, ALT 22, Alkaline Phosphatase 89 07/16/21 05:28: WBC 3.7 L, Hgb 9.2 L, Hct 28.1 L, Plt Count 93 L 07/15/21 19:56: PT 12.5, INR 1.13 07/15/21 19:56: WBC 3.9 L, Hgb 10.0 L, Hct 30.4 L, Plt Count 88 L 07/15/21 19:56: Sodium 133 L, Potassium 5.5 H, BUN 83 H, Creatinine 9.84 H*, Glucose 379 H, Magnesium 2.5 H, Total Bilirubin 1.2 H, AST 20, ALT 25, Alkaline Phosphatase 99 Imagings Data: EXAM DESCRIPTION: RAD - Chest Single View - 07/15/2021 8:01 pm CLINICAL HISTORY: DYSPNEA Chest pain. COMPARISON: Chest Pa And Lat (2 Views) dated 05/30/2021; Chest Single View dated 12/17/2020; Chest Single View dated 03/29/2020; Chest Single View dated 09/29/2019 FINDINGS: Portable technique limits examination quality. Moderate bilateral pulmonary opacities likely pulmonary edema. Heart is mildly prominent. No displaced fractures. IMPRESSION: Moderate CHF versus volume overload. Conclusions/Impression: ESRD -Acute HD Hyponatremia Hyperkalemia -Acute HD HTN with CKD/ CHF -Continue Valsartan -Continue Nifedipine Diastolic CHF, A/C -Acute HD with UF -Continue Valsartan -Start CoQ10 DM II with CKD -RISS Anemia in CKD Pancytopenia -Start Retacrit CKD MBD -Start Renvela -Start Vitamin D Thank you kindly for the consultation.
[2021-07-16] MEDS ORDERED: ALBUMIN HUMAN 25% 50 ML IV SCH (11:00)
[2021-07-16] MEDS: ONDANSETRON 4 MG/2 ML VIAL IV PRN (14:05)
[2021-07-16] MEDS ORDERED: EPOETIN ALFA 10,000 UNIT/ML VIAL SQ SCH (20:00)
[2021-07-16] MEDS: DOCUSATE NA 100 MG CAP PO SCH (20:57)
[2021-07-16] MEDS ORDERED: ROPINIROLE HCL 1 MG TAB PO SCH (21:00)
[2021-07-16] MEDS ORDERED: TIZANIDINE 4 MG TABLET PO SCH (21:00)
[2021-07-16] MEDS ORDERED: ATORVASTATIN 40 MG TAB PO SCH (21:00)
[2021-07-16] MEDS ORDERED: VALSARTAN 80 MG TAB PO SCH (21:00)
[2021-07-16] MEDS ORDERED: LOPERAMIDE HCL 2 MG CAPSULE PO STA (21:02)
[2021-07-16 21:57] VITALS: O2SAT 92
[2021-07-17 05:27] VITALS: BMI 31.4
[2021-07-17 05:46] LABS: Absolute Lymphocytes (CBC) 0.5 K/uL (0.7-4.9); Hematocrit 28.7 % (39.6-49.0); Lymphocytes % 16.2 % (15.3-44.8); RBC Red Blood Cell Count 3.21 M/uL (4.33-5.43)
[2021-07-17 06:20] LABS: Albumin 3.2 g/dL (3.4-5.0); Potassium 4.3 mmol/L (3.5-5.1); Protein, Total 7.5 g/dL (6.4-8.2)
[2021-07-17] MEDS ORDERED: CALCITROL 0.25 MCG CAP PO SCH (09:00)
[2021-07-17] MEDS ORDERED: VITAMIN D 5,000 UNIT CAP PO SCH (09:00)
[2021-07-17] MEDS ORDERED: COENZYME Q10- 200 MG CAP PO SCH (09:00)
[2021-07-17] MEDS ORDERED: MULTIVITAMINS,THERAPEUT 1 TAB PO SCH (09:00)
[2021-07-17] MEDS: INSULIN -REGULAR HUMAN 50 UNIT/0.5 ML ML SQ SCH ×3 (09:42→17:22)
[2021-07-17] MEDS: DOCUSATE NA 100 MG CAP PO SCH (09:43)
[2021-07-17] MEDS: SEVELAMER CARBONATE 800 MG TABLET PO SCH ×3 (09:44→17:23)
[2021-07-17] MEDS: PANTOPRAZOLE 40MG TABLET PO SCH (09:44)
[2021-07-17] MEDS: NIFEDIPINE XL 90 MG TABLET PO SCH (09:44)
[2021-07-17] MEDS: HEPARIN 5000 UNIT/ML 1 ML VIAL SQ SCH (09:46)
[2021-07-17] MEDS: ONDANSETRON 4 MG/2 ML VIAL IV PRN (09:46)
--- NOTE | 2021-07-17 15:47 | P.PN ---
Date of Service: 07/17/21 Vital Signs Temp Pulse Resp BP Pulse Ox 97.2 F 81 18 124/70 90 L 07/17/21 12:00 07/17/21 12:00 07/17/21 12:00 07/17/21 12:00 07/17/21 12:00 Medications Hydrocodone Bitart/Acetaminophen (Hydrocodone/Apap 5/325 Mg Tab) 1 tab PO Q6H PRN PRN Reason: Pain scale 5-7 (Moderate) Alprazolam (Alprazolam 1 Mg Tablet) 1 mg PO DAILYPRN PRN PRN Reason: restless leg Atorvastatin Calcium (Atorvastatin 40 Mg Tab) 40 mg PO BEDTIME [facility] Last Admin: 07/16/21 20:56 Dose: 40 mg Documented by: Calcitriol (Calcitrol 0.25 Mcg Cap) 0.5 mcg PO DAILY [facility] Last Admin: 07/17/21 09:43 Dose: 0.5 mcg Documented by: Cholecalciferol (Vitamin D 5,000 Unit Cap) 5,000 unit PO DAILY [facility] Last Admin: 07/17/21 09:44 Dose: 5,000 unit Documented by: Coenzyme Q10 (Coenzyme Q10- 200 Mg Cap) 200 mg PO DAILY [facility] Last Admin: 07/17/21 09:43 Dose: 200 mg Documented by: Docusate Sodium (Docusate Na 100 Mg Cap) 100 mg PO BID [facility] Last Admin: 07/17/21 09:43 Dose: 100 mg Documented by: Epoetin Cyrus (Epoetin Cyrus 10,000 Unit/Ml Vial) 10,000 unit SQ M,W,F [facility] Last Admin: 07/16/21 20:57 Dose: 10,000 unit Documented by: Heparin Sodium (Porcine) (Heparin 5000 Unit/Ml 1 Ml Vial) 5,000 unit SQ Q12HR [facility] Last Admin: 07/17/21 09:46 Dose: 5,000 unit Documented by: Heparin Sodium (Porcine) (Heparin 1,000 Unit/Ml Vial) 6,000 unit IV EVERY HD PRN PRN Reason: AFTER EACH Hydralazine HCl (Hydralazine Hcl 20 Mg/Ml Vial) 10 mg IV Q6HP PRN PRN Reason: Titrate to SBP (MUST DEFINE) Last Admin: 07/16/21 11:21 Dose: 10 mg Documented by: Hydralazine HCl (Hydralazine Hcl 10 Mg Tablet) 10 mg PO Q8HP PRN PRN Reason: blood pressure over 160 Albumin Human (Albumin 25%) 50 mls @ 100 mls/hr IV EVERY HD [facility] Insulin Human Regular (Insulin -Regular Human 50 Unit/0.5 Ml Ml) 0 unit SQ ACHS [facility]; Protocol Last Admin: 07/17/21 09:42 Dose: 5 unit Documented by: Mannitol (Mannitol 25% 12.5 Gm/50 Ml Vial) 12.5 gm IV EVERY HD PRN PRN Reason: Titrate to SBP (MUST DEFINE) Nifedipine (Nifedipine Xl 90 Mg Tablet) 90 mg PO DAILY [facility] Last Admin: 07/17/21 09:44 Dose: 90 mg Documented by: Ondansetron HCl (Ondansetron 4 Mg/2 Ml Vial) 4 mg IV Q6HP PRN PRN Reason: NAUSEA / VOMITING Last Admin: 07/17/21 09:46 Dose: 4 mg Documented by: Pantoprazole Sodium (Pantoprazole 40mg Tablet) 40 mg PO DAILY [facility]; Protocol Last Admin: 07/17/21 09:44 Dose: 40 mg Documented by: Ropinirole HCl (Ropinirole Hcl 1 Mg Tab) 4 mg PO BEDTIME [facility] Last Admin: 07/16/21 20:56 Dose: 4 mg Documented by: Sevelamer Carbonate (Sevelamer Carbonate 800 Mg Tablet) 2,400 mg PO TIDWM [facility] Last Admin: 07/17/21 09:44 Dose: 2,400 mg Documented by: Sodium Chloride (Flush Normal Saline 10 Ml) 10 ml IV BID [facility] Last Admin: 07/16/21 20:56 Dose: 10 ml Documented by: Tizanidine HCl (Tizanidine 4 Mg Tablet) 4 mg PO BEDTIME [facility] Last Admin: 07/16/21 20:56 Dose: 4 mg Documented by: Valsartan (Valsartan 80 Mg Tab) 80 mg PO BEDTIME [facility] Last Admin: 07/16/21 20:56 Dose: 80 mg Documented by: Vitamin B Complex/Vit C/Folic Acid (Multivitamins,Therapeut 1 Tab) 1 tab PO DAILY [facility] Last Admin: 07/17/21 09:43 Dose: 1 tab Documented by: Assessment/ Plan: Nephrology Dyspnea improving No chest pain Good appetite No acute events overnight Vitals, medications, blood work and imaging reviewed in the chart. General: Oriented x3, Cooperative HEENT: Atraumatic Neck: Supple Respiratory: CTA Cardiovascular: Regular rate/rhythm, Edema Gastrointestinal: Soft and benign, Non-distended Musculoskeletal: No clubbing, No contractures Integumentary: No rashes, No cyanosis Neurological: Normal speech Laboratory Data (last 24 hrs) 07/16/21 05:28: Sodium 133 L, Potassium 5.5 H, BUN 88 H, Creatinine 10.10 H*, Glucose 271 H, Total Bilirubin 0.9, AST 17, ALT 22, Alkaline Phosphatase 89 07/16/21 05:28: WBC 3.7 L, Hgb 9.2 L, Hct 28.1 L, Plt Count 93 L 07/15/21 19:56: PT 12.5, INR 1.13 07/15/21 19:56: WBC 3.9 L, Hgb 10.0 L, Hct 30.4 L, Plt Count 88 L 07/15/21 19:56: Sodium 133 L, Potassium 5.5 H, BUN 83 H, Creatinine 9.84 H*, Glucose 379 H, Magnesium 2.5 H, Total Bilirubin 1.2 H, AST 20, ALT 25, Alkaline Phosphatase 99 Imagings Data: EXAM DESCRIPTION: RAD - Chest Single View - 07/15/2021 8:01 pm CLINICAL HISTORY: DYSPNEA Chest pain. COMPARISON: Chest Pa And Lat (2 Views) dated 05/30/2021; Chest Single View dated 12/17/2020; Chest Single View dated 03/29/2020; Chest Single View dated 09/29/2019 FINDINGS: Portable technique limits examination quality. Moderate bilateral pulmonary opacities likely pulmonary edema. Heart is mildly prominent. No displaced fractures. IMPRESSION: Moderate CHF versus volume overload. Conclusions/Impression: ESRD -Acute HD again today -Seen and examined on HD Hyponatremia Hyperkalemia -Acute HD HTN with CKD/ CHF -Continue Valsartan -Continue Nifedipine Diastolic CHF, A/C -Acute HD with UF -Continue Valsartan -Start CoQ10 DM II with CKD -RISS Anemia in CKD Pancytopenia -TIW Retacrit CKD MBD -Continue Renvela -Continue Vitamin D
[2021-07-17 16:47] VITALS: BP 124/53; TEMP 97
--- NOTE | 2021-07-17 18:07 | P.DS ---
Admission Date: 07/16/21 Discharge Date: 07/17/21 Primary Care Provider: NephrologyDr. Mccoy Disposition: ROUTINE DISCHARGE Discharge Condition: FAIR Reason for Admission: Volume overload, hyperkalemia Consultations: Nephrology-Dr. Mccoy Brief History of Present Illness: 46-year-old male patient with history of ESRD on HD MWF, diabetes type 2insulin-dependent and hypertension presented to the emergency department for shortness of breath, edema. Patient reports over the course of the last 1 to 2 weeks he has noticed has had increased edema, dyspnea even after dialysis. He has been attempting to schedule additional chair time but has been unsuccessful. Patient reported orthopnea, paroxysmal nocturnal dyspnea, shortness of breath at rest. His labs in the ER were significant for mild hyperkalemia. Chest x- ray demonstrated volume overload. Patient admitted for further evaluation and management of volume overload, hyperkalemia. Hospital Course: Diagnosis ESRD on HD with hypervolemia, hyperkalemia Diabetes mellitus type 2insulin-dependent with hyperglycemia Hypertension Anemia chronic disease Patient admitted to the medical floor and nephrology consulted for hemodialysis. Patient underwent [id number] dialysis with improvement in the edema. Blood sugar managed with insulin sliding scale. Blood pressure initially elevated but improved with hemodialysis. Nephrology cleared patient for discharge today. Vital Signs/Physical Exam: Temp Pulse Resp BP Pulse Ox 97.0 F 86 18 124/53 L 91 07/17/21 16:00 07/17/21 17:36 07/17/21 17:36 07/17/21 16:00 07/17/21 17:36 General: Alert, In no apparent distress HEENT: Mucous membr. moist/pink Neck: JVD not distended Respiratory: Clear to auscultation bilaterally, Normal air movement Cardiovascular: Regular rate/rhythm, Normal S1 S2, Edema (Bilateral lower extremities) Gastrointestinal: Soft and benign, Non-distended, No tenderness Musculoskeletal: Swelling (Bilateral legs) Integumentary: No cyanosis Neurological: Normal strength at 5/5 x4 extr Laboratory Data at Discharge: WBC 3.3 K/uL (4.3-10.9) L 07/17/21 05:39 Hgb 9.3 g/dL (13.6-17.9) L 07/17/21 05:39 Hct 28.7 % (39.6-49.0) L 07/17/21 05:39 Plt Count 98 K/uL (152-406) L 07/17/21 05:39 PT 12.5 SECONDS (9.5-12.5) 07/15/21 19:56 INR 1.13 07/15/21 19:56 Sodium 136 mmol/L (136-145) 07/17/21 05:39 Potassium 4.3 mmol/L (3.5-5.1) 07/17/21 05:39 BUN 55 mg/dL (7-18) H D 07/17/21 05:39 Creatinine 7.82 mg/dL (0.55-1.3) H* D 07/17/21 05:39 Glucose 241 mg/dL (74-106) H 07/17/21 05:39 Magnesium 2.5 mg/dL (1.8-2.4) H 07/15/21 19:56 Total Bilirubin 1.0 mg/dL (0.2-1.0) 07/17/21 05:39 AST 17 U/L (15-37) 07/17/21 05:39 ALT 24 U/L (12-78) 07/17/21 05:39 Alkaline Phosphatase 87 U/L (45-117) 07/17/21 05:39 Home Medications: ALPRAZolam [Alprazolam] 1 mg PO DAILYPRN PRN 09/29/19 Atorvastatin Calcium 40 mg PO BEDTIME 09/29/19 Insulin Aspart [Novolog Penfill] 20 unit SQ TIDWM 09/29/19 Sevelamer Carbonate [Renvela*] 3 tab PO TIDWM 09/29/19 Hydralazine [Apresoline*] 10 mg PO Q8HP PRN 01/15/21 Nifedipine [Nifedipine ER] 90 mg PO DAILY 01/15/21 Promethazine HCl 12.5 mg PO Q4HP PRN 01/15/21 Ropinirole HCl 4 mg PO BEDTIME 01/15/21 Telmisartan [Micardis] 40 mg PO BEDTIME 01/15/21 Tizanidine HCl [Zanaflex] 4 mg PO BEDTIME 01/15/21 Pantoprazole [Protonix Tab*] 40 mg PO DAILY 07/15/21 Calcitrol [Rocaltrol*] 0.5 mcg PO DAILY #60 cap 07/17/21 Cholecalciferol (Vitamin D3) [Vitamin D 5,000 IU Cap*] 5,000 unit PO DAILY #30 cap 07/17/21 Docusate [Colace Cap*] 100 mg PO BID #60 cap 07/17/21 Epoetin [Retacrit] 10,000 unit SQ M,W,F vial 07/17/21 Heparin [Heparin 1,000 units/mL *] 6,000 unit IV EVERY HD PRN vial 07/17/21 Mannitol 25% [Mannitol*] 12.5 gm IV EVERY HD PRN vial 07/17/21 Ubidecarenone [Coenzyme Q10*] 200 mg PO DAILY #30 cap 07/17/21 New Medications: Ubidecarenone [Coenzyme Q10*] 200 mg PO DAILY #30 cap Docusate [Colace Cap*] 100 mg PO BID #60 cap Calcitrol [Rocaltrol*] 0.5 mcg PO DAILY #60 cap Cholecalciferol (Vitamin D3) [Vitamin D 5,000 IU Cap*] 5,000 unit PO DAILY #30 cap Diet: ADA (Renal) Activity: Ad chandrika Followup: Rojas Mccoy DO [ACTIVE - CAN ADMIT] - 1-2 Weeks Unknown,U [Primary Care Provider] - Time spent managing pt's care (in minutes): 35
== END 2021-07-17 19:30 | disposition home or self-care (01) | DRG 682 ==
LOC: ER 19:13 → ERHOLD 22:13 → 2ND 22:57 → OBSVTOIN 07-16 09:56
PROVIDERS: ADMIT Hospitalist; ATTEND Hospitalist
PROC: 5A1D70Z Performance of Urinary Filtration, Intermittent, Less than 6 Hours Per Day (ICD-10-PCS; principal; 2021-07-16)
PROC: 5A1D70Z Performance of Urinary Filtration, Intermittent, Less than 6 Hours Per Day (ICD-10-PCS; 2021-07-17)
DX: I12.0 Hypertensive chronic kidney disease with stage 5 chronic kidney disease or end stage renal disease (principal); N18.6 End stage renal disease; E87.1 Hypo-osmolality and hyponatremia; E87.5 Hyperkalemia; E11.22 Type 2 diabetes mellitus with diabetic chronic kidney disease; E87.70 Fluid overload, unspecified; D63.8 Anemia in other chronic diseases classified elsewhere; E11.65 Type 2 diabetes mellitus with hyperglycemia; Z99.2 Dependence on renal dialysis; Z20.822 Contact with and (suspected) exposure to COVID-19
CPT/HCPCS: 36415; 71045; 80048; 80053; 80076; 82947; 83735; 83880; 84484; 85025; 85610; 90935; 93005; 94640; 96374; 96375; 99285; G0378; J0360; J1644; J1815; J2250; J2270; J2405; U0003

== ENCOUNTER 2021-10-15 12:17 | Emergency (ER) | payer OTHER ==
--- OUTSIDE RECORDS SUMMARY | 2021-10-15 12:33 | XMS REPORT | Continuity of Care Document ---
:1975 Author Organization [facility] t Address [address] [place] [address] Dr. Leon [address] [place] [address] Care Team Providers Name Role Phone Jennifer James Primary Care Physician Ho SAINI, Sendalis K.H. Attending Clinician GUS TEAGUE K.H. Attending Clinician Unavailable Doctor Unassigned, [place] Attending Clinician Unavailable Oscar SAINI, Lauren Bobo Attending Clinician Navi SAINI, Izzy Roque Attending Clinician [phone] Payers Payer Name Policy Type Policy Number Effective Date Expiration Date S ource $20 F [id number] 2009 00:00:00 Problems Condition Condition Condition Status Onset Resolution Last Treating Co mments Source Name Details Category Date Date Treatment Clinician Date Obesity Obesity Disease Active Univers (BMI (BMI 5-09 ity of 30-39.9) 30-39.9) 00:00: [place] [address] Medical Branch Hypertensi Hypertensi Disease Active U nivers on on 03-17 ity of 00:00: [place] [address] Medical Branch Cataract Cataract Disease Active Overview: Un gregg 03-17 Formattin ity of 00:00: g of this note Medical might be Branch different from the original. fixed bilateral ly DM DM Disease Active Univers (diabetes (diabetes 03-17 ity of mellitus) mellitus[place] Nephropath Nephropath Disease Active U nivers y y ity of [facility] IBS IBS Disease Active Univers (irritable (irritable it y of bowel bowel [place] syndrome) syndrome) Medi siva Branch 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 ity of [facility] [place] [place] ESRD (end ESRD (end Disease Active Uni vers stage stage ity of renal renal [place] disease) disease) Medica l on on Branch dialysis dialysis 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 hyroidism [place] renal of renal Medica l origin origin Branch Retinopath Retinopath Disease Active U nivers y y ity of [facility] [place] [place] Allergies, Adverse Reactions, Alerts Allergy Allergy Status Severity Reaction(s) Onset Inactive Treating Comm ents Source Name Type Date Date Clinician PROMETHA DRUG Active Low Anxiety Univers ZINE HCL INGREDI 7- ity of 00:00: [place] [address] [place] [address] Prometha Propensi Active Anxiety "jumpy" Univ ers zine Hcl ty to 7 ity of adverse 00:00: [place] reaction Medical s Branch Social History Social Habit Start Date Stop Date Quantity Comments Source History SDOH University o f Alcohol Frequency [facility] edical Branch History SDOH University o f Alcohol Std [place] Medical Drinks Branch History SDRI University o f Alcohol Binge [place] Medic al Branch Exposure to Not sure [facility] SARS-CoV-2 [facility] (event) [place] Alcohol intake 2020-02-28 2020-02-28 Ex-drinker University of 00:00:00 00:00:00 (finding) [facility] Tobacco use and 2016-10-08 2016-10-08 Never used Universit y of exposure 00:00:00 00:00:[address] [facility] Alcohol Comment 2016-10-08 2016-10-08 quit 4-5 years Unive rsity of 00:00:00 00:00:[address] [facility] [place] Sex Ass[birth year] At [birth year] Universit y of 00:00:00 00:00:[address] [facility] Smoking Status Start Date Stop Date Source Never smoker [facility] Medications Ordered Filled Start Stop Current [...] unit/mL (two) Branch cartridge times daily. NIFEdipine 202-0 Yes 90mg Take 90 mg U nivers [...] by mouth ity of tablet 09:13: daily. [address] Branch aspirin 81 2021-0 Yes 81mg Take 81 mg U nivers mg EC 1-13 by mouth ity of tablet 09:13: daily. [address] Branch sevelamer 2021-0 Yes 800mg Take [...] unit/mL (two) Branch cartridge times daily. NIFEdipine 2-0 Yes 90mg Take 90 mg U nivers [...] by mouth ity of tablet 09:13: daily. [address] aspirin 81 2021-0 Yes 81mg Take 81 mg U nivers mg EC 1-13 by mouth ity of tablet 09:13: daily. [address] sevelamer 2021-0 Yes 800mg Take 800 Uni vers (RENVELA) 1-13 mg by ity of 800 mg 09:13: mouth 3 [place] tablet 17 (three) Medical times Branch daily with meals. ALPRAZolam 2021-0 Yes .25mg Take 0.25 U nivers (XANAX) 1-13 mg by ity of 0.25 mg 09:13: mouth 2 [place] tablet 17 (two) Medical times Branch daily. Insulin 2021-0 Yes 20U inject 20 Unive rs Lispro, 1-13 Units ity of Human, 09:13: under the [place] (HUMALOG) 17 skin 2 Medical 100 unit/mL (two) Branch cartridge times daily. NIFEdipine 2021-0 Yes 90mg Take 90 mg U nivers CC 90 mg SR 1-13 by mouth 2 it y of tablet 09:13: (two) [place] 17 times Medical daily. Branch Insulin 2021-0 Yes 25U inject 25 Unive rs Glargine 1-13 Units ity of (BASAGLAR 09:13: under the [place] as KWIKPEN 17 skin. Medical U-100 Branch INSULIN) 100 unit/mL (3 mL) injection amLODIPine 2021-0 Yes 10mg Take 10 mg U nivers 10 mg 1-13 by mouth ity of tablet 09:13: daily. [address] aspirin 81 2021-0 Yes 81mg Take 81 mg U nivers mg EC 1-13 by mouth ity of tablet 09:13: daily. [address] sevelamer 2021-0 Yes 800mg Take 800 Uni vers (RENVELA) 1-13 mg by ity of 800 mg 09:13: mouth 3 [place] tablet 17 (three) Medical times Branch daily with meals. sevelamer 2021-0 2022- No 2400mg Take 2,400 Univers 800 mg 1-13 01-13 mg by ity of tablet 09:13: 00:00 mouth 3 [place] 15 :00 (three) Medical times [place] daily with meals. sevelamer 2021-0 2022- No 2400mg Take 2,400 Univers 800 mg -13 01-13 mg by ity of tablet 09:13: 00:00 mouth 3 [place] 15 :00 (three) Medical times [place] daily with meals. atorvastati 2018-03 Yes [id number] 40mg Take 1 Univers n 40 mg 1-19 tablet by ity of tablet 00:00: mouth at [place] [address] bedtime. Medical Branch atorvastati 2018-03 Yes [id number] 40mg Take 1 Univers n 40 mg 1-19 tablet by ity of tablet 00:00: mouth at [place] [address] bedtime. Medical Branch atorvastati 2018-03 Yes [id number] 40mg Take 1 Univers n 40 mg 1-19 tablet by ity of tablet 00:00: mouth at [place] [address] bedtime. [facility] Branch tiZANidine Yes Univers 2 mg tablet 4-26 ity of 00:00: [place] 00 [facility] tiZANidine Yes Univers 2 mg tablet 4-26 ity of 00:00: [place] 00 [facility] tiZANidine 0 Yes Univers 2 mg tablet 4-26 ity of 00:00: [place] 00 [facility] Immunizations Ordered Filled Immunization Date Status Comments [facility] e Immunization Name Name Influenza Virus 2020-01-16 Completed Universit y of Vaccine 00:00:[address] [facility] Influenza Virus 2020-01-16 Completed Universit y of Vaccine 00:00:[address] [facility] Influenza Virus 2020-01-16 Completed Universit y of Vaccine 00:00:[address] [facility] Influenza Virus 2016-11-27 Completed Universit y of Vaccine 00:00:[address] [facility] Influenza Virus 2016-11-27 Completed Universit y of Vaccine 00:00:[address] [facility] Influenza Virus 2016-11-27 Completed Universit y of Vaccine 00:00:[address] [facility] Pneumococcal 13 2015-05-12 Completed Universit y of Conjugate, PCV13 00:00:00 [facility] dical (Prevnar 13) Branch Pneumococcal 13 2015-05-12 Completed Universit y of Conjugate, PCV13 00:00:00 [facility] dical (Prevnar 13) Branch Pneumococcal 13 2015-05-12 Completed Universit y of Conjugate, PCV13 00:00:00 [place] [facility] 2015-04-03 Completed University of 00:00:[address] [facility] [place] PPD (TB) 2015-04-03 Completed University of 00:00:[address] [facility] PPD (TB) 2015-04-03 Completed University of 00:00:[address] [facility] [place] Influenza Virus 2014-12-05 Completed Universit y of Vaccine 00:00:[address] [facility] Influenza Virus 2014-12-05 Completed Universit y of Vaccine 00:00:[address] [facility] Influenza Virus 2014-12-05 Completed Universit y of Vaccine 00:00:[address] [facility] [place] PPD (TB) 2014-04-13 Completed University of 00:00:[address] [facility] [place] PPD (TB) 2014-04-13 Completed University of 00:00:[address] [facility] [place] PPD (TB) 2014-04-13 Completed University of 00:00:[address] [facility] [place] Influenza Virus 2013-11-15 Completed Universit y of Vaccine 00:00:[address] [facility] [place] Influenza Virus 2013-11-15 Completed Universit y of Vaccine 00:00:[address] [facility] Influenza Virus 2013-11-15 Completed Universit y of Vaccine 00:00:[address] [facility] [place] PPD (TB) 2013-09-08 Completed University of 00:00:[address] [facility] PPD (TB) 2013-09-08 Completed University of 00:00:[address] [facility] [place] PPD (TB) 2013-09-08 Completed University of 00:00:[address] [facility] Hep B, Adol or Pedi 2012-12-28 Completed Unive rsity of Dosage 00:00:[address] [facility] Hep B, Adol or Pedi 2012-12-28 Completed Unive rsity of Dosage 00:00:[address] [facility] Hep B, Adol or Pedi 2012-12-28 Completed Unive rsity of Dosage 00:00:[address] [facility] [place] Influenza Virus 2012-11-20 Completed Universit y of Vaccine 00:00:[address] [facility] [place] Influenza Virus 2012-11-20 Completed Universit y of Vaccine 00:00:[address] [facility] [place] Influenza Virus 2012-11-20 Completed Universit y of Vaccine 00:00:[address] [facility] Hep B, Adol or Pedi 2012-08-26 Completed Unive rsity of Dosage 00:00:[address] [facility] Hep B, Adol or Pedi 2012-08-26 Completed Unive rsity of Dosage 00:00:[address] [facility] Hep B, Adol or Pedi 2012-08-26 Completed Unive rsity of Dosage 00:00:[address] [facility] [place] Hep B, Adol or Pedi 2012-07-27 Completed Unive rsity of Dosage 00:00:[address] [facility] [place] Hep B, Adol or Pedi 2012-07-27 Completed Unive rsity of Dosage 00:00:[address] [facility] Hep B, Adol or Pedi 2012-07-27 Completed Unive rsity of Dosage 00:00:[address] [facility] [place] Influenza Virus 2012-07-08 Completed Universit y of Vaccine 00:00:[address] [facility] Influenza Virus 2012-07-08 Completed Universit y of Vaccine 00:00:[address] [facility] [place] Influenza Virus 2012-07-08 Completed Universit y of Vaccine 00:00:[address] [facility] Hep B, Adol or Pedi 2012-06-19 Completed Unive rsity of Dosage 00:00:[address] [facility] [place] Pneumococcal 13 2012-06-19 Completed Universit y of Conjugate, PCV13 00:00:00 [facility] dical (Prevnar 13) Branch Hep B, Adol or Pedi 2012-06-19 Completed Unive rsity of Dosage 00:00:[address] [facility] Pneumococcal 13 2012-06-19 Completed Universit y of Conjugate, PCV13 00:00:00 [facility] dical (Prevnar 13) Branch Hep B, Adol or Pedi 2012-06-19 Completed Unive rsity of Dosage 00:00:[address] [facility] [place] Pneumococcal 13 2012-06-19 Completed Universit y of Conjugate, PCV13 00:00:00 [facility] dical (Prevnar 13) Branch PPD (TB) 2012-05-30 Completed University 00:00:[address] [facility] [place] PPD (TB) 2012-05-30 Completed University 00:00:[address] [facility] [place] PPD (TB) 2012-05-30 Completed University of 00:00:[address] [facility] [place] Vital Signs Vital Name Observation Time Observation Value Comments Source Systolic blood 2021-03-29 15:21:00 141 mm[Hg] Univer sity of pressure [facility] [place] Diastolic blood 2021-03-29 15:21:00 74 mm[Hg] Unive rsity of pressure [facility] [place] Heart rate 2021-03-29 15:21:00 72 /min [facility] Respiratory rate 2021-03-29 15:17:00 22 /[facility] Body height 2021-03-29 15:17:00 167.6 cm [facility] Body weight 2021-03-29 15:17:00 89.268 kg [facility] BMI 2021-03-29 15:17:00 31.76 kg/m2 [facility] Oxygen saturation in 2021-03-29 15:17:00 94 /min [facility] Arterial blood by [facility] Pulse oximetry [place] Procedures Procedure Date / Time Performing Clinician Source Performed INSURANCE CORRESPONDENCE 2021-02-28 06:01:00 Doctor Fernie, [facility] [place] [facility] Encounters Start End Encounter Admission Attending Care Care Encounter Source Date/Time Date/Time Type Type Clinicians Facility Department ID 2021-06-09 Outpatient [facility] [id number] [place] 09:39:30 [facility] 2018-06-22 Inpatient [facility] [id number] [facility] 07:53:49 2018-06-22 Outpatient [facility] [id number] [facility] 07:53:48 2021-03-29 2021-03-29 Office Ho [facility] [id number] Univers 09:00:00 09:42:55 Visit Gus CRESPO [id number] ity [facility] [id number] [place] [phone] [place] [id number] [facility] 2021-03-29 2021-03-29 Outpatient R HO [facility] [id number] Univers 09:00:00 09:42:[address] [facility] [place] [place] 2021-02-28 2021-02-28 Orders Doctor WHITLOCK [id number] Univers 00:00:00 00:00:00 Only Unassigned, JACQUE [id number] ity of [place] [facility] [id number] [place] as [id number] [facility] 009 Branch 2020-05-16 2020-05-16 [facility] [id number] 00:00:00 00:00:00 Aguilar A MULTISPEC [id number] IALTY [id number] [id number] [facility] 2020-05-16 2020-05-16 Telephone [facility] [id number] 00:00:00 00:00:00 Aguilar A MULTISPEC [id number] IALTY [id number] [id number] [facility] 2020-05-15 2020-05-15 [facility] [id number] 00:00:00 00:00:00 Izzy santana MULTISPEC [id number] IALTY [id number] [place] [id number] [facility] 2020-05-15 2020-05-15 Abstract [facility] [id number] 00:00:00 00:00:00 Izzy santana MULTISPEC [id number] IALTY [id number] [place] [id number] [facility] 2020-05-12 2020-05-12 Committee [facility] [id number] 00:00:00 00:00:00 Review Aguilar A MULTISPEC [id number] IALTY [id number] [place] [id number] [facility] 2020-05-12 2020-05-12 Abstract [facility] [id number] 00:00:00 00:00:00 Aguilar A MULTISPEC [id number] IALTY [id number] [place] [id number] [facility] 2020-04-18 2020-04-18 Dai WH[place]LOCK [id number] 00:00:00 00:00:00 Only Unassigned, JACQUE [id number] [place] [facility] [id number] 2020-02-28 2020-02-28 Office Ho [facility] [id number] 12:46:09 13:47:51 Visit Gus Crespo [id number] [place] [id number] [facility] [phone] [place] [address] Building Results This patient has no known results.
--- NOTE | 2021-10-15 13:11 | RAD REPORT ---
EXAM DESCRIPTION: RAD - Chest Single View - 10/15/2021 1:04 pm CLINICAL HISTORY: COUGH Chest pain. COMPARISON: Chest Single View dated 07/15/2021; Chest Pa And Lat (2 Views) dated 05/30/2021; Chest Sing le View dated 12/17/2020; Chest Single View dated 03/29/2020 FINDINGS: Portable technique limits examination quality. Interstitial markings are mildly prominent which may indicate a viral infection were or mild intersti tial pulmonary edema. The heart is upper limit of normal in size. No displaced fractures.
[2021-10-15] MEDS ORDERED: PROMETHAZINE INJ 25 MG/ML AMP ONE (14:16)
[2021-10-15 16:22] VITALS: BP 112/60; TEMP 97.9; O2SAT 99
--- NOTE | 2021-10-17 09:33 | EDPHYS ---
Physician Documentation [facility] Name: Chase Chacon Jr Age: 46 yrs Sex: Male : 1975 Arrival Date: 10/15/2021 Time: 12:19 Bed 11 Private MD: RANDI MILLARD ED Physician Michael Mackey HPI: 10/15 15:20 This 46 yrs old Male presents to ER via Ambulatory with complaints of rn Nausea/Vomiting, Cough, Doesn't Feel Right. 15:20 The patient presents to the emergency department with nausea, vomiting. Onset: The rn symptoms/episode began/occurred 3 day(s) ago. Possible causes: unknown. The symptoms are aggravated by nothing. The symptoms are alleviated by nothing. Associated signs and symptoms: Pertinent positives: nausea, vomiting, Pertinent negatives: fever, GI bleeding. Severity of symptoms: At their worst the symptoms were mild in the emergency department the symptoms are unchanged. The patient has experienced similar episodes in the past. The patient has not recently seen a physician. Pt reports developed mild nonproductive cough 2-3 days ago, with generalized malaise and fatigue. No fever. No chest pain or abd pain. + hx of gastroparesis and states that is acting up as well. No sob.. Historical: - Home Meds: 12:41 alprazolam 1 mg Oral tab 1 tab daily [Active]; hydralazine 10 mg Oral tab 1 tab as andrade needed [Active]; Nifedipine ER Oral 90 mg daily [Active]; pantoprazole 40mg Oral 1 tab once daily [Active]; promethazine 12.5 mg Oral tab 1 tab as needed [Active]; ropinirole 4 mg Oral tab 1 tab nightly [Active]; sevelamer carbonate 800 mg Oral tab 3 tabs 3 times per day [Active]; telmisartan 40 mg Oral tab 1 tab once daily [Active]; tizanidine 4 mg Oral tab 1 tab nightly [Active]; - PMHx: 12:41 Cataract; diabetes mellitus; hemodialysis; Hypertensive disorder; kidney failure; andrade - PSHx: 12:41 Left arm dialysis fistula; andrade - Immunization history:: Adult Immunizations up to date. - Social history:: Smoking status: Patient denies any tobacco usage or history of. - Family history:: not pertinent. - Hospitalizations: : No recent hospitalization is reported. ROS: 15:20 Constitutional: Negative for fever, chills, and weight loss, Eyes: Negative for injury, rn pain, redness, and discharge, Neck: Negative for injury, pain, and swelling, Cardiovascular: Negative for chest pain, palpitations, and edema, Respiratory: Negative for shortness of breath, wheezing, and pleuritic chest pain, Abdomen/GI: Negative for abdominal pain, diarrhea, and constipation, Back: Negative for injury and pain, MS/Extremity: Negative for injury and deformity, Skin: Negative for injury, rash, and discoloration, Neuro: Negative for headache, numbness, tingling, and seizure. Exam: 15:20 Constitutional: This is a well developed, well nourished patient who is awake, alert, rn and in no acute distress. Ambulatory to room without difficulty or assistance. Head/Face: Normocephalic, atraumatic. Eyes: Periorbital areas with no swelling, redness, or edema. Cardiovascular: Regular rate and rhythm. No pulse deficits. Respiratory: No increased work of breathing, no retractions or nasal flaring. Abdomen/GI: Soft, non-tender Skin: Warm, dry MS/ Extremity: Pulses equal, no cyanosis Neuro: Awake and alert, GCS 15 Vital Signs: 12:39 BP 117 / 63; Pulse 72; Resp 17; Temp 97.8(T); Pulse Ox 97% on R/A; Weight 82 kg; Height andrade 5 ft. 6 in. (167.64 cm); 15:53 BP 112 / 60; Pulse 64; Resp 18; Temp 97.9; Pulse Ox 99% on R/A; ph 12:39 Body Mass Index 29.18 (82.00 kg, 167.64 cm) andrade MDM: 12:23 Patient medically screened. rn 15:20 Differential diagnosis: viral gastroenteritis, gastroenteritis, gastroparesis, COVID, rn Flu. Data reviewed: vital signs, nurses notes, lab test result(s), radiologic studies, plain films, and as a result, I will discharge patient. Counseling: I had a detailed discussion with the patient and/or guardian regarding: the historical points, exam findings, and any diagnostic results supporting the discharge/admit diagnosis, lab results, radiology results, the need for outpatient follow up, to return to the emergency department if symptoms worsen or persist or if there are any questions or concerns that arise at home. Special discussion: I discussed with the patient/guardian in detail that at this point there is no indication for admission to the hospital. It is understood, however, that if the symptoms persist or worsen the patient needs to return immediately for re-evaluation. Based on the history and exam findings, there is no indication for further emergent testing or inpatient evaluation. I discussed with the patient/guardian the need to see the primary care provider for further evaluation of the symptoms. ED course: Pt with mild COVID symptoms, non-productive cough, no pneumonia on CXR, no oxygen requirement. Will dc home with pcp and nephrology f/u.. 10/15 12:24 Order name: SARS-COV-2 RT PCR (Document "Date of Onset" if Symptomatic); Complete Time: rn 13:47 10/15 12:24 Order name: Flu; Complete Time: 13:47 rn 10/15 12:24 Order name: XRAY Chest (1 view); Complete Time: 13:47 rn 10/15 13:48 Order name: IV Start; Complete Time: 14:22 rn Administered Medications: 14:20 Drug: Phenergan (promethazine) 12.5 mg Route: IVP; Site: right forearm; ph 15:53 Follow up: Response: No adverse reaction; Nausea is decreased ph Disposition Summary: 10/15/21 15:25 Discharge Ordered Location: Home rn Problem: new rn Symptoms: have improved rn Condition: Stable rn Diagnosis - SARS-associated coronavirus as the cause of diseases classified elsewhere rn - Vomiting rn - End stage renal disease rn Followup: rn - With: Private Physician - When: As needed - Reason: Recheck today's complaints, Re-evaluation by your physician Discharge Instructions: - Discharge Summary Sheet rn - COVID-19 rn - Viral Illness, Adult rn - Prevent the Spread of COVID-19 if You Are Sick - [facility] rn Forms: - Medication Reconciliation Form rn - Thank You Letter rn - Antibiotic government operations consultant - Prescription Opioid Use rn Signatures: Dispatcher [employer] Michael Torres MD MD rn Hall, Patricia, RN RN ph Au-Ilana Lu RN RN andrade
--- NOTE | 2021-10-17 09:33 | ER ---
Nurse's Notes [facility] Name: Chase Chacon Jr Age: 46 yrs Sex: Male : 1975 Arrival Date: 10/15/2021 Time: 12:19 Bed 11 Private MD: RANDI MILLARD Diagnosis: SARS-associated coronavirus as the cause of diseases classified elsewhere;Vomiting;End stage renal disease Presentation: 10/15 12:39 Chief complaint: Patient states: cough , congestion, N/V. Coronavirus screen: Vaccine andrade status: Patient reports being unvaccinated. Ebola Screen: Patient denies travel to an Ebola-affected area in the 21 days before illness onset. Initial Sepsis Screen: Does the patient meet any 2 criteria? No. Patient's initial sepsis screen is negative. Does the patient have a suspected source of infection? No. Patient's initial sepsis screen is negative. Risk Assessment: Do you want to hurt yourself or someone else? Patient reports no desire to harm self or others. Onset of symptoms was October 12, 2021. 12:39 Method Of Arrival: Ambulatory andrade 12:39 Acuity: LEON 3 andrade Historical: - Home Meds: 12:41 alprazolam 1 mg Oral tab 1 tab daily [Active]; hydralazine 10 mg Oral tab 1 tab as andrade needed [Active]; Nifedipine ER Oral 90 mg daily [Active]; pantoprazole 40mg Oral 1 tab once daily [Active]; promethazine 12.5 mg Oral tab 1 tab as needed [Active]; ropinirole 4 mg Oral tab 1 tab nightly [Active]; sevelamer carbonate 800 mg Oral tab 3 tabs 3 times per day [Active]; telmisartan 40 mg Oral tab 1 tab once daily [Active]; tizanidine 4 mg Oral tab 1 tab nightly [Active]; - PMHx: 12:41 Cataract; diabetes mellitus; hemodialysis; Hypertensive disorder; kidney failure; andrade - PSHx: 12:41 Left arm dialysis fistula; andrade - Immunization history:: Adult Immunizations up to date. - Social history:: Smoking status: Patient denies any tobacco usage or history of. - Family history:: not pertinent. - Hospitalizations: : No recent hospitalization is reported. Screenin:56 Abuse screen: Denies threats or abuse. Denies injuries from another. Nutritional ph screening: No deficits noted. Tuberculosis screening: No symptoms or risk factors identified. Fall Risk None identified. Assessment: 13:45 Reassessment: Reassessment: ERP at bedside to speak w/ pt about +covid result, pt then ph began actively vomiting and is requesting Phenergan, provider offered PO medication but pt states that it only works IV. 13:56 General: Appears in no apparent distress. Behavior is cooperative, appropriate for age. ph Pain: Complains of pain in abdomen, after vomiting. Neuro: Level of Consciousness is awake, alert, obeys commands, Oriented to person, place, time, situation. Cardiovascular: Capillary refill < 3 seconds in bilateral fingers Patient's skin is warm and dry. Respiratory: Reports cough that is Airway is patent Respiratory effort is even, unlabored, Denies shortness of breath. GI: Abdomen is non-distended, Reports nausea, vomiting. Derm: Skin is pink, warm \\T\\ dry. Musculoskeletal: Circulation, motion, and sensation intact. Range of motion: intact in all extremities. Vital Signs: 12:39 BP 117 / 63; Pulse 72; Resp 17; Temp 97.8(T); Pulse Ox 97% on R/A; Weight 82 kg; Height andrade 5 ft. 6 in. (167.64 cm); 15:53 BP 112 / 60; Pulse 64; Resp 18; Temp 97.9; Pulse Ox 99% on R/A; ph 12:39 Body Mass Index 29.18 (82.00 kg, 167.64 cm) andrade ED Course: 12:19 Patient arrived in ED. am2 12:19 RANDI MILLARD is Private Physician. am2 12:23 Michael Mackey MD is Attending Physician. rn 12:41 Triage completed. andrade 12:43 SARS-COV-2 RT PCR (Document "Date of Onset" if Symptomatic) Sent. andrade 12:43 Flu Sent. andrade 13:07 XRAY Chest (1 view) In Process Unspecified. EDMS 13:54 Essie Canales, RN is Primary Nurse. ph 13:56 Arm band placed on Patient placed in an exam room, on a stretcher. ph 13:56 Patient has correct armband on for positive identification. Bed in low position. Call ph light in reach. Side rails up X 1. Door closed. Noise minimized. 15:53 No provider procedures requiring assistance completed. IV discontinued, intact, ph bleeding controlled, No redness/swelling at site. Pressure dressing applied. Administered Medications: 14:20 Drug: Phenergan (promethazine) 12.5 mg Route: IVP; Site: right forearm; ph 15:53 Follow up: Response: No adverse reaction; Nausea is decreased ph Medication: 13:56 VIS not applicable for this client. ph Outcome: 15:25 Discharge ordered by . rn 15:53 Discharged to home ambulatory. ph 15:53 Condition: good 15:53 Discharge instructions given to patient, Instructed on discharge instructions, follow up and referral plans. Demonstrated understanding of instructions, follow-up care. 15:53 Patient left the ED. ph Signatures: Dispatcher [employer] EDMS Michael Mackey MD MD rn Hall, Patricia, RN RN ph Moreno, Amanda am2 Au-StagerIlana RN RN ha Corrections: (The following items were deleted from the chart) 13:56 13:54 Reassessment: ph ph
== END 2021-10-15 15:53 | disposition home or self-care (01) ==
LOC: ER 12:17
DX: U07.1 COVID-19 (principal); E11.22 Type 2 diabetes mellitus with diabetic chronic kidney disease; I12.0 Hypertensive chronic kidney disease with stage 5 chronic kidney disease or end stage renal disease; N18.6 End stage renal disease; Z99.2 Dependence on renal dialysis; K31.84 Gastroparesis
CPT/HCPCS: 87804 ×2; 71045; U0003; J2550; 96374; 99283

== ENCOUNTER 2021-11-14 14:50 | Emergency (ER) | payer OTHER ==
--- OUTSIDE RECORDS SUMMARY | 2021-11-14 14:54 | XMS REPORT | Continuity of Care Document ---
:1975 Author Organization [facility] t Address [address] [place] [address] [address]. [address] [place] [address] Care Team Providers Name Role Phone Maria EstherdrewMariselan Primary Care Physician Ho SAINI, Sendil K.H. Attending Clinician GUS TEAGUE K.H. Attending Clinician Unavailable Doctor Unassigned, [place] Attending Clinician Unavailable Oscar SAINI, Lauren Bobo Attending Clinician Izzy Mcelroy MD Attending Clinician [phone] Payers Payer Name Policy Type Policy Number Effective Date Expiration Date S zacheryce $20 F [id number] 2009 00:00:00 Problems Condition Condition Condition Status Onset Resolution Last Treating Co mments Source Name Details Category Date Date Treatment Clinician Date Obesity Obesity Disease Active Univers (BMI (BMI 5-09 ity of 30-39.9) 30-39.9) 00:00: [address] ESRD (end ESRD (end Disease Active [facility] renal 00:00: Medical disease) disease) 00 Center on on dialysis dialysis Pre-transp Pre-transp Disease Active [facility] 10-02 Noel evaluation evaluation 00:00: [place] for Center chronic chronic kidney kidney disease disease Type 2 Type [address] [facility] diabetes diabetes 10-02 [facility] mellitus mellitus 00:00: Medica l 00 Center Hypertensi Hypertensi Disease Active [facility] ve renal ve renal 10-02 [facility] disease disease 00:00: Medical 00 Center Hypertensi Hypertensi Disease Active U nivers on on 03-17 ity of 00:00: [place] [facility] Cataract Cataract Disease Active Overview: Un gregg 03-17 Formattin ity of 00:00: g of this [place] note Medical might be Branch different from the original. 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 hyroidism [place] renal of renal Medica l origin origin Branch Retinopath Retinopath Disease Active U nivers y y ity of [facility] Allergies, Adverse Reactions, Alerts Allergy Allergy Status Severity Reaction(s) Onset Inactive Treating Comm ents Source Name Type Date Date Clinician Prommarisaa Propensi Active [facility] zine ty to 6 [facility] adverse 00:00: Medical reaction 00 [place] s PROMETHA DRUG Active Low Anxiety Univers ZINE HCL INGREDI 7- ity of 00:00: [place] [address] Medical Branch Prometha Propensi Active Anxiety "jumpy" Univ ers zine Hcl ty to 7-25 ity of adverse 00:00: [place] reaction 00 Medical s Branch Social History Social Habit Start Date Stop Date Quantity Comments Source History SDRI University o f Alcohol Frequency [facility] edical Branch History [facility] University o f Alcohol Std [place] [facility] Drinks Branch History [facility] o f Alcohol Binge [place] [facility] al Branch Exposure to Not sure University of SARS-CoV-2 [place] [facility] (event) Branch Alcohol intake 2020-02-28 2020-02-28 Ex-drinker University of 00:00:00 00:00:00 (finding) [facility] Tobacco use and 2016-10-08 2016-10-08 Never used Universit y of exposure 00:00:00 00:00:00 [facility] Alcohol Comment 2016-10-08 2016-10-08 quit 4-5 years Unive rsity of 00:00:00 00:00:00 ago [facility] Sex Ass[birth year] At [birth year] JESENIA Mishra 00:00:00 00:00:00 [facility] Center Smoking Status Start Date Stop Date Source Never smoker [facility] Medications Ordered Filled Start Stop Current Ordering Indication Dosage Frequency Signature Comments Components Source Medication Medication Date Date Medication? Clinician (SIG) Name Name ALPRAZolam Yes .25mg Take 0.25 U nivers (XANAX) 1-13 mg by ity of 0.25 mg 09:13: mouth 2 [place] tablet 17 (two) Medical times Branch daily. Insulin Yes 20U inject 20 Unive rs Lispro, 1-13 Units ity of Human, 09:13: under the [place] (HUMALOG) 17 skin 2 Medical 100 unit/mL (two) Branch cartridge times daily. NIFEdipine Yes 90mg Take 90 mg U nivers CC 90 mg SR 1-13 by mouth 2 it y of tablet 09:13: (two) [place] 17 times [facility] daily. Branch Insulin Yes 25U inject 25 Unive rs Glargine 1-13 Units ity of (BASAGLAR 09:13: under the [place] as KWIKPEN 17 skin. Medical U-100 Branch INSULIN) 100 unit/mL (3 mL) injection amLODIPine Yes 10mg Take 10 mg U nivers 10 mg 1-13 by mouth ity of tablet 09:13: daily. [address] aspirin 81 2021-0 Yes 81mg Take 81 mg U nivers mg EC 1-13 by mouth ity of tablet 09:13: daily. [address] sevelamer 0 Yes 800mg Take 800 Uni vers (RENVELA) 1-13 mg by ity of 800 mg 09:13: mouth 3 [place] tablet 17 (three) Medical times [place] daily with meals. ALPRAZolam 0 Yes .25mg Take 0.25 U nivers (XANAX) [...] by mouth ity of tablet 09:13: daily. [address] Branch aspirin 81 2021-0 Yes 81mg Take 81 mg U nivers mg EC 1-13 by mouth ity of tablet 09:13: daily. [address] Branch sevelamer 2021-0 Yes 800mg Take 800 Uni vers (RENVELA) 1-13 mg by ity of 800 mg 09:13: mouth 3 [place] tablet 17 (three) Medical times Branch daily with meals. ALPRAZolam 2021-0 Yes .25mg Take 0.25 U nivers (XANAX) 1-13 mg by ity of 0.25 mg 09:13: mouth 2 [place] tablet 17 (two) Medical times Branch daily. Insulin 2022-0 Yes 20U inject 20 Unive rs Lispro, 1-13 Units ity of Human, 09:13: under the [place] (HUMALOG) 17 skin 2 Medical 100 unit/mL (two) Branch cartridge times daily. NIFEdipine 2022-0 Yes 90mg Take 90 mg U nivers CC 90 mg SR 1-13 by mouth 2 it y of tablet 09:13: (two) [place] 17 times Medical daily. Branch Insulin 2-0 Yes 25U inject 25 Unive rs Glargine 1-13 Units ity of (BASAGLAR 09:13: under the [place] as KWIKPEN 17 skin. Medical U-100 Branch INSULIN) 100 unit/mL (3 mL) injection amLODIPine 202-0 Yes 10mg Take 10 mg U nivers 10 mg 1-13 by mouth ity of tablet 09:13: daily. [address] Branch aspirin 81 0 Yes 81mg Take 81 mg U nivers mg EC 1-13 by mouth ity of tablet 09:13: daily. [address] Branch sevelamer Yes 800mg Take 800 Uni vers (RENVELA) 1-13 mg by ity of 800 mg 09:13: mouth 3 [place] tablet 17 (three) Medical times Branch daily with meals. sevelamer 2021- No 2400mg Take 2,400 Univers 800 mg 1-13 01-13 mg by ity of tablet 09:13: 00:00 mouth 3 [place] 15 :00 (three) Medical times Branch daily with meals. sevelamer 2021- No 2400mg Take 2,400 Univers 800 mg -13 01-13 mg by ity of tablet 09:13: 00:00 mouth 3 [place] 15 :00 (three) Medical times Branch daily with meals. atorvastati 2018-03 Yes [id number] 40mg Take 1 Univers n 40 mg 1-19 tablet by ity of tablet 00:00: mouth at [place] [address] bedtime. Medical Branch atorvastati 2018-03 Yes [id number] 40mg Take 1 Univers n 40 mg 1-19 tablet by ity of tablet 00:00: mouth at [place] [address] bedtime. Medical Branch atorvastati 2018-03 Yes [id number] 40mg Take 1 Univers n 40 mg 1-19 tablet by ity of tablet 00:00: mouth at [place] [address] bedtime. Medical Branch tiZANidine Yes Univers 2 mg tablet 4-26 ity of 00:00: [place] 00 Medical Branch tiZANidine Yes Univers 2 mg tablet 4-26 ity of 00:00: [place] 00 Medical Branch tiZANidine Yes Univers 2 mg tablet 4-26 ity of 00:00: [place] 00 Medical Branch Immunizations Ordered Filled Immunization Date Status Comments [facility] e Immunization Name Name Influenza Virus 2020-01-16 Completed Universit y of Vaccine 00:00:00 [facility] Influenza Virus 2020-01-16 Completed Universit y of Vaccine 00:00:00 [facility] Influenza Virus 2020-01-16 Completed Universit y of Vaccine 00:00:00 [facility] Influenza Virus 2016-11-27 Completed Universit y of Vaccine 00:00:00 [facility] Influenza Virus 2016-11-27 Completed Universit y of Vaccine 00:00:00 [facility] Influenza Virus 2016-11-27 Completed Universit y of Vaccine 00:00:00 [facility] Pneumococcal 13 2015-05-12 Completed Universit y of Conjugate, PCV13 00:00:00 [facility] dical (Prevnar 13) Branch Pneumococcal 13 2015-05-12 Completed Universit y of Conjugate, PCV13 00:00:00 [facility] dical (Prevnar 13) Branch Pneumococcal 13 2015-05-12 Completed Universit y of Conjugate, PCV13 00:00:00 [facility] dical (Prevnar 13) Branch PPD (TB) 2015-04-03 Completed University of 00:00:00 [facility] PPD (TB) 2015-04-03 Completed University of 00:00:00 [facility] PPD (TB) 2015-04-03 Completed University of 00:00:00 [facility] Influenza Virus 2014-12-05 Completed Universit y of Vaccine 00:00:00 [facility] Influenza Virus 2014-12-05 Completed Universit y of Vaccine 00:00:00 [facility] Influenza Virus 2014-12-05 Completed Universit y of Vaccine 00:00:00 [facility] PPD (TB) 2014-04-13 Completed University of 00:00:00 [facility] PPD (TB) 2014-04-13 Completed University of 00:00:00 [facility] PPD (TB) 2014-04-13 Completed University of 00:00:00 [facility] Influenza Virus 2013-11-15 Completed Universit y of Vaccine 00:00:00 [facility] Influenza Virus 2013-11-15 Completed Universit y of Vaccine 00:00:00 [facility] Influenza Virus 2013-11-15 Completed Universit y of Vaccine 00:00:00 [facility] PPD (TB) 2013-09-08 Completed University of 00:00:00 [facility] PPD (TB) 2013-09-08 Completed University of 00:00:00 [facility] PPD (TB) 2013-09-08 Completed University of 00:00:00 [facility] Hep B, Adol or Pedi 2012-12-28 Completed Unive rsity of Dosage 00:00:00 [place] [facility] Hep B, Adol or Pedi 2012-12-28 Completed Unive rsity of Dosage 00:00:00 [facility] Hep B, Adol or Pedi 2012-12-28 Completed Unive rsity of Dosage 00:00:00 [facility] Influenza Virus 2012-11-20 Completed Universit y of Vaccine 00:00:00 [facility] Influenza Virus 2012-11-20 Completed Universit y of Vaccine 00:00:00 [facility] Influenza Virus 2012-11-20 Completed Universit y of Vaccine 00:00:00 [facility] Branch Hep B, Adol or Pedi 2012-08-26 Completed Unive rsity of Dosage 00:00:00 [facility] Hep B, Adol or Pedi 2012-08-26 Completed Unive rsity of Dosage 00:00:00 [facility] Branch Hep B, Adol or Pedi 2012-08-26 Completed Unive rsity of Dosage 00:00:00 [facility] Hep B, Adol or Pedi 2012-07-27 Completed Unive rsity of Dosage 00:00:00 [facility] Branch Hep B, Adol or Pedi 2012-07-27 Completed Unive rsity of Dosage 00:00:00 [facility] Hep B, Adol or Pedi 2012-07-27 Completed Unive rsity of Dosage 00:00:00 [facility] Influenza Virus 2012-07-08 Completed Universit y of Vaccine 00:00:00 [facility] Influenza Virus 2012-07-08 Completed Universit y of Vaccine 00:00:00 [facility] Influenza Virus 2012-07-08 Completed Universit y of Vaccine 00:00:00 [facility] Branch Hep B, Adol or Pedi 2012-06-19 Completed Unive rsity of Dosage 00:00:00 [facility] Pneumococcal 13 2012-06-19 Completed Universit y of Conjugate, PCV13 00:00:00 [place] Me dical (Prevnar 13) Branch Hep B, Adol or Pedi 2012-06-19 Completed Unive rsity of Dosage 00:00:00 [facility] Pneumococcal 13 2012-06-19 Completed Universit y of Conjugate, PCV13 00:00:00 [place] Me dical (Prevnar 13) Branch Hep B, Adol or Pedi 2012-06-19 Completed Unive rsity of Dosage 00:00:00 [facility] Pneumococcal 13 2012-06-19 Completed Universit y of Conjugate, PCV13 00:00:00 [facility] dical (Prevnar 13) [place] PPD (TB) 2012-05-30 Completed University 00:00:00 [facility] PPD (TB) 2012-05-30 Completed University 00:00:00 [facility] PPD (TB) 2012-05-30 Completed [facility] 00:00:00 [facility] Vital Signs Vital Name Observation Time Observation Value Comments Source Systolic blood 2021-03-29 15:21:00 141 mm[Hg] Univer sity of pressure [facility] Diastolic blood 2021-03-29 15:21:00 74 mm[Hg] Unive rsity of [facility] Heart rate 2021-03-29 15:21:00 72 /min [facility] Respiratory rate 2021-03-29 15:17:00 22 /min [facility] Body height 2021-03-29 15:17:00 167.6 cm [facility] Body weight 2021-03-29 15:17:00 89.268 kg [facility] BMI 2021-03-29 15:17:00 31.76 kg/m2 [facility] Oxygen saturation in 2021-03-29 15:17:00 94 /min [facility] Arterial blood by [facility] Pulse oximetry Branch Procedures Procedure Date / Time Performing Clinician Source Performed [employer] [employer] 2021-02-28 06:01:00 Doctor Unassigned, [facility] [place] [facility] Encounters Start End Encounter Admission Attending Care Care Encounter Source Date/Time Date/Time Type Type Clinicians Facility Department ID 2021-06-09 Outpatient [facility] [id number] [place] 09:39:30 [facility] 2018-06-22 Inpatient [facility] [id number] [facility] H 07:53:49 2018-06-22 Outpatient [facility] [id number] HH 07:53:48 2021-03-29 2021-03-29 Office LEELA Teague [id number] Univers 09:00:00 09:42:55 Visit Gus CRESPO [id number] Ale[place] [id number] Kendal DIAZ [id number] [place] N[place] 059 [facility] 2021-03-29 2021-03-29 Outpatient R HO, [facility] [id number] Univers 09:00:00 09:42:55 SENDIL ity of [facility] 2021-02-28 2021-02-28 Orders Doctor KAMLESH [id number] Univers 00:00:00 00:00:00 Only Unassigned, JACQUE [id number] [facility] [id number] Paulie as [id number] [address] 2020-05-16 2020-05-16 Telephone [facility] [id number] 00:00:00 00:00:00 Lauren Bobo MULTISPEC [id number] IALTY [id number] [place] [id number] [facility] 2020-05-16 2020-05-16 Telephone [facility] [id number] 00:00:00 00:00:00 Lauren Bobo MULTISPEC [id number] IALTY [id number] [place] [id number] [facility] 2020-05-15 2020-05-15 Telephone [facility] [id number] 00:00:00 00:00:00 Izzy santana MULTISPEC [id number] IALTY [id number] [place] [id number] [facility] 2020-05-15 2020-05-15 [facility] [id number] 00:00:00 00:00:00 Izzy santana MULTISPEC [id number] IALTY [id number] [place] [id number] [facility] 2020-05-12 2020-05-12 Committee [facility] [id number] 00:00:00 00:00:00 Review Lauren Bobo MULTISPEC [id number] DAFNE [id number] [place] [id number] AND D[facility] 2020-05-12 2020-05-12 Abstract Oscar [facility] [id number] 00:00:00 00:00:00 Lauren Bobo MULTISPEC [id number] MIKARLIE [id number] [place] [id number] [facility] D[facility] 2020-04-18 2020-04-18 Orders Doctor KAMLESH [id number] 00:00:00 00:00:00 Only Unassigned, JACQUE [id number] [place] [facility] [id number] [id number] 2020-02-28 2020-02-28 Office Ho [facility] [id number] 12:46:09 13:47:51 Visit Gus Crespo [id number] Therese [id number] Christin [id number] nal 059 Building Results This patient has no known results.
[2021-11-14 16:00] LABS: Absolute Lymphocytes (CBC) 0.7 K/uL (0.7-4.9); Hematocrit 25.1 % (39.6-49.0); Lymphocytes % 17.8 % (15.3-44.8); MCV 92.1 fL (80-100); MPV 8.1 fL (7.6-11.3); RBC Red Blood Cell Count 2.73 M/uL (4.33-5.43)
[2021-11-14] MEDS ORDERED: MORPHINE 4 MG/ML SYR ONE (16:04)
[2021-11-14] MEDS ORDERED: ONDANSETRON 4 MG/2 ML VIAL ONE (16:05)
[2021-11-14 16:25] LABS: Albumin 3.3 g/dL (3.4-5.0); Magnesium 2.2 mg/dL (1.8-2.4); Potassium 4.1 mmol/L (3.5-5.1); Protein, Total 7.9 g/dL (6.4-8.2)
[2021-11-14] MEDS ORDERED: INSULIN -REGULAR HUMAN 50 UNIT/0.5 ML ML ONE (17:01)
--- NOTE | 2021-11-14 17:27 | RAD REPORT ---
EXAM DESCRIPTION: CT - Abdomen Pelvis Wo Contrast - 11/14/2021 5:15 pm CLINICAL HISTORY: Abdominal pain /rectal pain COMPARISON: 2020 TECHNIQUE: Computed axial tomography of the abdomen and pelvis was obtained. IV and oral contrast we re not requested. All CT scans are performed using dose optimization technique as appropriate and may include automated exposure control or mA/KV adjustment according to patient size. FINDINGS: The evaluation of solid organs, vessels and bowel is limited secondary to the lack of con trast administration. The liver, spleen, pancreas, and adrenals appear grossly normal. Bilateral renal cysts. No hydronephrosis. Small umbilical hernia. Diffuse edema subcutaneous tissues. Small amount ascites. No evidence of diverticulitis. Prominent vascular calcifications. Cholelithiasis. Thickened gallbladder wall IMPRESSION: Cholelithiasis. Thickened gallbladder wall may be related to hypoalbuminemia. Cholecysti tis can also result this appearance and should be correlated clinically Small amount ascites with diffuse edema the subcutaneous tissues.
[2021-11-14] MEDS ORDERED: DICYCLOMINE HCL 20 MG/2 ML AMP IM ONE (17:50)
[2021-11-14 18:12] LABS: Anisocytosis 1+; Blood Morphology Comment NOTED (NOT SEEN); Platelet Estimate DECR; White Blood Cell Scan OK (OK)
--- NOTE | 2021-11-14 18:49 | ER ---
Nurse's Notes [facility] Name: Chase Chacon Jr Age: 46 yrs Sex: Male : 1975 Arrival Date: 11/14/2021 Time: 14:53 Bed 7 Private MD: RANDI MILLARD Diagnosis: Diarrhea, unspecified;Anal fissure, unspecified Presentation: 11/14 14:59 Chief complaint: Patient states: Diarrhea that mistry started 3 days ago (11/11).reports tp1 weakness. denies vomiting, chills. PT had dialysis today, removed 2 kg. PT reports leaving dialysis early due to restless legs. CO sharp, burning, continuous pain in the rectum that radiates to the back. rated pain /. Coronavirus screen: Vaccine status: Patient reports being unvaccinated. Ebola Screen: Patient negative for fever greater than or equal to 101.5 degrees Fahrenheit, and additional compatible Ebola Virus Disease symptoms Patient denies exposure to infectious person. Patient denies travel to an Ebola-affected area in the 21 days before illness onset. Initial Sepsis Screen: Does the patient meet any 2 criteria? No. Patient's initial sepsis screen is negative. Does the patient have a suspected source of infection? No. Patient's initial sepsis screen is negative. Risk Assessment: Do you want to hurt yourself or someone else? Patient reports no desire to harm self or others. Onset of symptoms was November 11, 2021. 14:59 Method Of Arrival: Ambulatory tp1 14:59 Acuity: LEON 3 tp1 Triage Assessment: 15:04 General: Appears in no apparent distress. uncomfortable, Behavior is anxious. Pain: tp1 Complains of pain in rectum. GI: Reports diarrhea, Patient currently denies nausea, vomiting. Historical: - Allergies: 15:04 No Known Allergies; tp1 - Home Meds: 15:04 alprazolam 1 mg Oral tab 1 tab daily [Active]; hydralazine 10 mg Oral tab 1 tab as tp1 needed [Active]; Nifedipine ER Oral 90 mg daily [Active]; pantoprazole 40mg Oral 1 tab once daily [Active]; promethazine 12.5 mg Oral tab 1 tab as needed [Active]; ropinirole 4 mg Oral tab 1 tab nightly [Active]; sevelamer carbonate 800 mg Oral tab 3 tabs 3 times per day [Active]; telmisartan 40 mg Oral tab 1 tab once daily [Active]; tizanidine 4 mg Oral tab 1 tab nightly [Active]; - PMHx: 15:04 Cataract; diabetes mellitus; hemodialysis; Hypertensive disorder; kidney failure; tp1 - PSHx: 15:04 Left arm dialysis fistula; tp1 - Immunization history:: Client reports having NOT received the Covid vaccine. - Social history:: Smoking status: Patient denies any tobacco usage or history of. Screenin:27 Abuse screen: Denies threats or abuse. Nutritional screening: No deficits noted. tw2 Tuberculosis screening: No symptoms or risk factors identified. Fall Risk None identified. Assessment: 15:44 Reassessment: provider at bedside at this time. tw2 16:35 Reassessment: Patient appears in no apparent distress at this time. Patient and/or tw2 family updated on plan of care and expected duration. Pain level reassessed. Patient is alert, oriented x 3, equal unlabored respirations, skin warm/dry/pink. 18:04 Reassessment: pt drinking PO diet sprite and water at this time. no c/o nauseousness. tw2 provider notified. 18:08 Reassessment: Patient appears in no apparent distress at this time. Patient and/or tw2 family updated on plan of care and expected duration. Pain level reassessed. Patient is alert, oriented x 3, equal unlabored respirations, skin warm/dry/pink. Patient states feeling better. Patient states symptoms have improved. Vital Signs: 14:59 BP 194 / 83; Pulse 78; Resp 16; Temp 98.1; Pulse Ox 96% on R/A; Weight 81.65 kg; Height tp1 5 ft. 6 in. (167.64 cm); 16:35 BP 149 / 70; Pulse 65; Resp 17; Pulse Ox 95% on R/A; tw2 18:08 BP 189 / 78; Pulse 66; Resp 17; Pulse Ox 98% on R/A; tw2 18:55 BP 176 / 67; Pulse 67; Resp 17; Pulse Ox 99% ; Pain 0/10; jh6 14:59 Body Mass Index 29.05 (81.65 kg, 167.64 cm) tp1 ED Course: 14:53 Patient arrived in ED. mr 14:53 RANDI MILLARD is Private Physician. mr 14:55 Sunny Truong PA is PHCP. cp 14:55 Jermaine Grimes DO is Attending Physician. cp 15:03 Triage completed. tp1 15:04 Arm band placed on. tp1 15:12 Bed in low position. Call light in reach. tw2 15:27 Hafsa Hinojosa, RN is Primary Nurse. tw2 15:43 Inserted saline lock: 20 gauge in right forearm, using aseptic technique. Blood tw2 collected. 17:18 CT Abd/Pelvis - Without Contrast In Process Unspecified. EDMS 17:59 CDIFF Sent. tw2 18:56 Patient did not have IV access during this emergency room visit. IV discontinued, jh6 intact, bleeding controlled, No redness/swelling at site. Pressure dressing applied. 18:56 No provider procedures requiring assistance completed. jh6 Administered Medications: 15:56 Drug: Zofran (Ondansetron) 4 mg Route: IVP; Site: right forearm; hb 16:55 Follow up: Response: No adverse reaction tw2 15:57 Drug: morphine 4 mg Route: IVP; Infused Over: 4 mins; Site: right forearm; hb 16:56 Follow up: Response: No adverse reaction; RASS: Alert and Calm (0) tw2 16:55 Drug: Insulin Regular Human 10 units {Co-Signature: tw2 (Hafsa Hinojosa RN).} Route: IVP; 6 Site: right forearm; 17:47 Follow up: Response: No adverse reaction tw2 17:45 Drug: Bentyl (dicyclomine) 20 mg Route: IM; Site: right gluteus; tw2 Medication: 15:36 VIS not applicable for this client. tw2 Outcome: 18:48 Discharge ordered by MD. cp 18:56 Discharged to home ambulatory. jh6 18:56 Condition: good 18:56 Discharge instructions given to patient, Instructed on discharge instructions, follow up and referral plans. Demonstrated understanding of instructions, follow-up care, medications, Prescriptions given X 3. 18:57 Patient left the ED. 6 Signatures: Dispatcher [employer] EDAL Rachel Dailey mr Sunny Truong PA PA cp Ilana Benjamin RN RN Hafsa Hinojosa RN RN tw2 Violeta Carranza RN RN jh6 Lizbeth Amaya RN RN tp1 Hafsa Hinojosa RN tw2
--- NOTE | 2021-11-14 18:49 | EDPHYS ---
Physician Documentation [facility] Name: Chase Chacon Jr Age: 46 yrs Sex: Male : 1975 Arrival Date: 11/14/2021 Time: 14:53 Bed 7 Private MD: RANDI MILLARD ED Physician Jermaine Grimes HPI: 11/14 15:35 This 46 yrs old Male presents to ER via Ambulatory with complaints of Rectal cp Pain, Abdominal Pain. 15:35 The patient presents with abdominal pain that is diffuse. cp 15:35 Onset: The symptoms/episode began/occurred today. The patient presents to the emergency cp department with pain in the rectal area, that is moderate. Onset: The symptoms/episode began/occurred today. Associated signs and symptoms: Pertinent positives: diarrhea times 3 days, noticed small amount red blood in stool today, Pertinent negatives: chest pain, constipation, fever, palpitations, testicular pain. The symptoms are described as burning. Severity of pain: in the emergency department the pain is unchanged despite home interventions. Patient reports history of hemorrhoids. Has seen DR Larios in the past and had colonoscopy. Historical: - Allergies: 15:04 No Known Allergies; tp1 - Home Meds: 15:04 alprazolam 1 mg Oral tab 1 tab daily [Active]; hydralazine 10 mg Oral tab 1 tab as tp1 needed [Active]; Nifedipine ER Oral 90 mg daily [Active]; pantoprazole 40mg Oral 1 tab once daily [Active]; promethazine 12.5 mg Oral tab 1 tab as needed [Active]; ropinirole 4 mg Oral tab 1 tab nightly [Active]; sevelamer carbonate 800 mg Oral tab 3 tabs 3 times per day [Active]; telmisartan 40 mg Oral tab 1 tab once daily [Active]; tizanidine 4 mg Oral tab 1 tab nightly [Active]; - PMHx: 15:04 Cataract; diabetes mellitus; hemodialysis; Hypertensive disorder; kidney failure; tp1 - PSHx: 15:04 Left arm dialysis fistula; tp1 - Immunization history:: Client reports having NOT received the Covid vaccine. - Social history:: Smoking status: Patient denies any tobacco usage or history of. ROS: 15:40 Constitutional: Negative for body aches, chills, fever. cp 15:40 Eyes: Negative for injury, pain, redness, and discharge. cp 15:40 ENT: Negative for drainage from ear(s), ear pain, sore throat, difficulty swallowing, difficulty handling secretions. 15:40 Cardiovascular: Negative for chest pain, palpitations. 15:40 Respiratory: Negative for cough, shortness of breath, wheezing. 15:40 Abdomen/GI: Positive for abdominal pain, nausea, diarrhea, rectal pain, blood in stool, Negative for vomiting, constipation. 15:40 : Negative for urinary symptoms, flank pain, testicular pain 15:40 Neuro: Negative for altered mental status, dizziness, headache, syncope, weakness. 15:40 All other systems are negative. Exam: 15:45 Constitutional: The patient appears in no acute distress, alert, awake, non-toxic, well cp developed, well nourished, uncomfortable. 15:45 Head/Face: Normocephalic, atraumatic. cp 15:45 Eyes: Periorbital structures: appear normal, Conjunctiva: normal, no exudate, no injection, Sclera: no appreciated abnormality, Lids and lashes: appear normal, bilaterally. 15:45 ENT: External ear(s): are unremarkable, Nose: is normal, Mouth: Lips: moist, Oral mucosa: pink and intact, moist, Posterior pharynx: Airway: no evidence of obstruction, patent. 15:45 Neck: ROM/movement: is normal, is supple, without pain, no range of motions limitations. 15:45 Chest/axilla: Inspection: normal. 15:45 Cardiovascular: Rate: normal, Rhythm: regular, Edema: is not appreciated, JVD: is not appreciated. 15:45 Respiratory: the patient does not display signs of respiratory distress, Respirations: normal, no use of accessory muscles, no retractions, labored breathing, is not present, Breath sounds: are clear throughout, no decreased breath sounds, no stridor, no wheezing. 15:45 Abdomen/GI: Inspection: abdomen appears normal, Bowel sounds: active, all quadrants, Palpation: soft, in all quadrants, mild abdominal tenderness, in all quadrants, rebound tenderness, is not appreciated, involuntary guarding, is not appreciated, Rectal exam: rectal tone normal, Stool: brown, guaiac positive, hemorrhoid(s), external, with pain, without thrombosis, tenderness, that is moderate, multiple small fissures with scant bleeding noted. 15:45 Back: CVA tenderness, is absent. 15:45 Neuro: Orientation: to person, place \T\ time. Mentation: is normal. Vital Signs: 14:59 BP 194 / 83; Pulse 78; Resp 16; Temp 98.1; Pulse Ox 96% on R/A; Weight 81.65 kg; Height tp1 5 ft. 6 in. (167.64 cm); 16:35 BP 149 / 70; Pulse 65; Resp 17; Pulse Ox 95% on R/A; tw2 18:08 BP 189 / 78; Pulse 66; Resp 17; Pulse Ox 98% on R/A; tw2 18:55 BP 176 / 67; Pulse 67; Resp 17; Pulse Ox 99% ; Pain 0/10; jh6 14:59 Body Mass Index 29.05 (81.65 kg, 167.64 cm) tp1 MDM: 15:14 Patient medically screened. cp 16:00 Differential diagnosis: hemorrhoids, fissure, abscess, pilonidal cyst, bowel cp obstruction, diverticulitis, gastritis, pancreatitis, fecal impaction. 18:48 Data reviewed: vital signs, nurses notes, lab test result(s), radiologic studies, CT cp scan. 18:48 Counseling: I had a detailed discussion with the patient and/or guardian regarding: the cp historical points, exam findings, and any diagnostic results supporting the discharge/admit diagnosis, lab results, radiology results, the need for outpatient follow up, a psychological anthropologist, to return to the emergency department if symptoms worsen or persist or if there are any questions or concerns that arise at home. Response to treatment: the patient's symptoms have markedly improved after treatment, and as a result, I will discharge patient. Special discussion: Based on the patient's Hx, exam, and Dx evaluation, there is no indication for emergent surgery or inpatient Tx. It is understood by the patient/guardian that if the Sx's persist or worsen they need to return immediately for re-evaluation. 11/14 15:31 Order name: CBC with Diff; Complete Time: 18:17 cp 11/14 16:24 Interpretation: Normal except: WBC 4.20; RBC 2.73; HGB 8.2; HCT 25.1; PLT 71; RDW 21.5. cp 11/14 15:31 Order name: CMP; Complete Time: 16:29 cp 11/14 17:30 Interpretation: Normal except: GLUC 298; BUN 30; CRE 5.35; GFR 13; ALB 3.3; GLOB 4.6; cp A/G 0.7; AST 10. 11/14 15:31 Order name: Lipase; Complete Time: 16:29 cp 11/14 15:31 Order name: Magnesium; Complete Time: 16:29 cp 11/14 16:37 Order name: Ova And Parasites cp 11/14 16:37 Order name: Rotavirus Antigen cp 11/14 16:29 Order name: CT Abd/Pelvis - Without Contrast; Complete Time: 17:29 cp 11/14 16:37 Order name: Stool Culture cp 11/14 18:12 Order name: CBC Smear Scan; Complete Time: 18:17 EDMS 11/14 15:31 Order name: IV Saline Lock; Complete Time: 15:43 cp 11/14 15:31 Order name: Labs collected and sent; Complete Time: 15:43 cp 11/14 17:31 Order name: PO challenge; Complete Time: 18:04 cp Administered Medications: 15:56 Drug: Zofran (Ondansetron) 4 mg Route: IVP; Site: right forearm; hb 16:55 Follow up: Response: No adverse reaction tw2 15:57 Drug: morphine 4 mg Route: IVP; Infused Over: 4 mins; Site: right forearm; hb 16:56 Follow up: Response: No adverse reaction; RASS: Alert and Calm (0) tw2 16:55 Drug: Insulin Regular Human 10 units {Co-Signature: tw2 (Hafsa Hinojosa RN).} Route: IVP; jh6 Site: right forearm; 17:47 Follow up: Response: No adverse reaction tw2 17:45 Drug: Bentyl (dicyclomine) 20 mg Route: IM; Site: right gluteus; tw2 Disposition Summary: 11/14/21 18:48 Discharge Ordered Location: Home cp Problem: new cp Symptoms: have improved cp Condition: Stable cp Diagnosis - Diarrhea, unspecified cp - Anal fissure, unspecified cp Followup: cp - With: Private Physician - When: 1 - 2 days - Reason: Recheck today's complaints Discharge Instructions: - Discharge Summary Sheet cp - Anal Fissure, Adult cp - Food Choices to Help Relieve Diarrhea, Adult cp - Diarrhea, Adult cp Forms: - Medication Reconciliation Form cp - Thank You Letter cp - Antibiotic Education cp - Prescription Opioid Use cp Prescriptions: - Anusol-HC 25 mg Rectal Suppository - insert 1 suppository by RECTAL route every 12 hours As needed; 20 suppository; cp Refills: 0, Product Selection Permitted - Zofran 4 mg Oral Tablet - take 1 tablet by ORAL route every 12 hours As needed; 20 tablet; Refills: 0, cp Product Selection Permitted - dicyclomine 20 mg Oral Tablet - take 1 tablet by ORAL route 4 times per day; 30 tablet; Refills: 0, Product cp Selection Permitted Addendum: 11/15/2021 19:52 Co-signature as Attending Physician, Jermaine LAWRENCE was immediately available on-site m s3 in the Emergency Department for consultation in the care of the patient. . Signatures: Dispatcher [employer] EDMS Sunny Truong PA PA cp Ilana Benjamin RN RN Hafsa Hinojosa RN RN tw2 Jermaine Grimes DO DO ms3 Violeta Carranza RN RN jh6 Lizbeth Amaya RN RN tp1 Hafsa Hinojosa RN tw2 Corrections: (The following items were deleted from the chart) 11/14 17:30 16:29 Normal except: GLUC 298; BUN 30; CRE 5.35; GFR 13; ALB 3.3; GLOB 4.6; A/G 0.7. cp cp
[2021-11-14 19:02] VITALS: TEMP 98.1
[2021-11-14 19:08] VITALS: BP 176/67; O2SAT 99
== END 2021-11-14 18:57 | disposition home or self-care (01) ==
LOC: ER 14:50
DX: R19.7 Diarrhea, unspecified (principal); K60.2 Anal fissure, unspecified; E11.22 Type 2 diabetes mellitus with diabetic chronic kidney disease; N18.6 End stage renal disease; Z99.2 Dependence on renal dialysis
CPT/HCPCS: 87045; 85025; 36415; 83735; 87177; 87046; 87209; 83690; 80053; 87425; 74176; J0500; J1815; J2405

== ENCOUNTER 2021-11-19 12:53 | Emergency (ER) | payer OTHER ==
--- OUTSIDE RECORDS SUMMARY | 2021-11-19 12:57 | XMS REPORT | Continuity of Care Document ---
:1975 Author Organization [facility] t Address [address] [place] [address] Dr. Leon [phone] Care Team Providers Name Role Phone FREEMAN TORI Primary Care Physician Unavailable GUS TEAGUE Attending Clinician Unavailable Ho SAINI, Gus Luque Attending Clinician Doctor Unassigned, [place] Attending Clinician Unavailable Lauren Moore MD Attending Clinician Izzy Mcelroy MD Attending Clinician [phone] Payers Payer Name Policy Type Policy Number Effective Date Expiration Date S ource $20 F [id number] 2009 00:00:00 Problems Condition Condition Condition Status Onset Resolution Last Treating Co mments Source Name Details Category Date Date Treatment Clinician Date Obesity Obesity Disease Active Univers (BMI (BMI 5-09 ity of 30-39.9) 30-39.9) 00:00: [address] Branch ESRD (end ESRD (end Disease Active [facility] 7-19 [facility] renal renal 00:00: Medical disease) disease) 00 Center on on dialysis dialysis Pre-transp Pre-transp Disease Active [facility] 10-02 Noel evaluation evaluation 00:00: Fl dical for for 00 Center chronic chronic [...] Formattin ity of 00:00: g of this [place] note Medical might be Branch different from the original. fixed bilateral ly DM DM Disease Active Univers (diabetes (diabetes 03-17 ity of mellitus) mellitus) [place] Nephropath Nephropath Disease Active U nivers y y ity of [facility] IBS IBS Disease Active Univers (irritable (irritable it y of bowel bowel [place] syndrome) syndrome) [facility] siva Branch 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 ity of [facility] 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 hy[place] of renal Medica l origin origin Branch Retinopath Retinopath Disease Active U nivers y y ity of [facility] Allergies, Adverse Reactions, Alerts Allergy Allergy Status Severity Reaction(s) Onset Inactive Treating Comm ents Source Name Type Date Date Clinician Prometha Propensi Active [facility]12 [facility] adverse 00:[facility]: Medical reaction 00 Center s PROMETHA DRUG Active Low Anxiety Univers ZINE HCL INGREDI 7- ity of 00:00: [place] [facility] Prometha Propensi Active Anxiety "jumpy" Univ ers zine Hcl ty to 7-25 ity of adverse 00:00: [place] reaction 00 Medical s Branch Social History Social Habit Start Date Stop Date Quantity Comments Source History SDOH University o f Alcohol Std [place] Medical Drinks Branch History SDPA University o f Alcohol Binge [place] [facility] al Branch Exposure to Not sure University of SARS-CoV-2 [place] Medical (event) Branch History [facility] University o f Alcohol Frequency [facility] edical Branch Alcohol intake 2020-02-28 2020-02-28 Ex-drinker University of 00:00:00 00:00:00 (finding) [facility] Tobacco use and 2016-10-08 2016-10-08 Never used Universit y of exposure 00:00:00 00:00:00 [facility] Alcohol Comment 2016-10-08 2016-10-08 quit 4-5 years Unive rsity of 00:00:00 00:00:00 ago [facility] Sex Assigned At [birth year] JESENIA Mishra [...] ity of 0.25 mg 09:13: mouth 2 [place] tablet 17 (two) Medical times Branch daily. Insulin Yes 20U inject 20 Unive rs Lispro, 1-13 Units ity of Human, 09:13: under the [place] (HUMALOG) 17 skin 2 Medical 100 unit/mL (two) Branch cartridge times daily. NIFEdipine Yes 90mg Take 90 mg U nivers CC 90 mg SR 1-13 by mouth 2 it y of tablet 09:13: (two) [place] 17 times Medical daily. Branch Insulin Yes 25U inject 25 Unive rs Glargine 1-13 Units ity of (BASAGLAR 09:13: under the [place] as KWIKPEN 17 skin. Medical U-100 Branch INSULIN) 100 unit/mL (3 mL) injection amLODIPine Yes 10mg Take 10 mg U nivers 10 mg 1-13 by mouth ity of tablet 09:13: daily. [address] aspirin 81 0 Yes 81mg Take 81 mg U nivers mg EC 1-13 by mouth ity of tablet 09:13: daily. [address] sevelamer Yes 800mg Take 800 Uni vers (RENVELA) 1-13 mg by ity of 800 mg 09:13: mouth 3 [place] tablet 17 (three) Medical times Branch daily with meals. ALPRAZolam Yes .25mg Take 0.25 U nivers [...] by mouth ity of tablet 09:13: daily. [address] Branch aspirin 81 2021-0 Yes 81mg Take 81 mg U nivers mg EC 1-13 by mouth ity of tablet 09:13: daily. [address] Branch sevelamer 2-0 Yes 800mg Take 800 Uni vers (RENVELA) 1-13 mg by ity of 800 mg 09:13: mouth 3 [place] tablet 17 (three) Medical times Branch daily with meals. ALPRAZolam 2021-0 Yes .25mg Take 0.25 U nivers (XANAX) 1-13 mg by ity of 0.25 mg 09:13: mouth 2 [place] tablet 17 (two) Medical times Branch daily. Insulin 2022-0 Yes 20U inject 20 Unive rs Lispro, 1-13 Units ity of Human, 09:13: under the [place] (HUMALOG) 17 skin 2 Medical 100 unit/mL (two) Branch cartridge times daily. NIFEdipine 2022-0 Yes 90mg Take 90 mg U nivers CC 90 mg SR 1-13 by mouth 2 it y of tablet 09:13: (two) [place] [id number] times Medical daily. Branch Insulin 2022-0 Yes 25U inject 25 Unive rs Glargine 1-13 Units ity of (BASAGLAR 09:13: under the [place] as KWIKPEN 17 skin. Medical U-100 Branch INSULIN) 100 unit/mL (3 mL) injection amLODIPine 2022-0 Yes 10mg Take 10 mg U nivers 10 mg 1-13 by mouth ity of tablet 09:13: daily. [address] aspirin 81 0 Yes 81mg Take 81 mg U nivers mg EC -13 by mouth ity of tablet 09:13: daily. [address] Branch sevelamer Yes 800mg Take 800 Uni vers (RENVELA) 1-13 mg by ity of 800 mg 09:13: mouth 3 [place] tablet 17 (three) Medical times Branch daily with meals. sevelamer 2021- No 2400mg Take 2,400 Univers 800 mg 1-13 01-13 mg by ity of tablet 09:13: 00:00 mouth 3 [place] 15 :00 (three) Medical times Branch daily with meals. sevelamer 2021- No 2400mg Take 2,400 Univers 800 mg -13 01-13 mg by ity of tablet 09:13: 00:00 mouth 3 [place] 15 :00 (three) Medical times [place] daily with meals. atorvastati 2018-03 Yes [id number] 40mg Take 1 Univers n 40 mg 1-19 tablet by ity of tablet 00:00: mouth at [place] [address] bedtime. Medical Branch atorvastati 2018-03 Yes [id number] 40mg Take 1 Univers n 40 mg 1-19 tablet by ity of tablet 00:00: mouth at [place] 00 bedtime. Medical Branch atorvastati 2018-03 Yes [id number] 40mg Take 1 Univers n 40 mg 1-19 tablet by ity of tablet 00:00: mouth at [place] [address] bedtime. Medical Branch tiZANidine Yes Univers 2 mg tablet 4-26 ity of 00:00: [place] 00 Medical Branch tiZANidine 0 Yes Univers 2 mg tablet 4-26 ity of 00:00: [place] 00 Medical [place] tiZANidine 2019-0 Yes Univers 2 mg tablet 4-26 ity of 00:00: [place] 00 [facility] Branch Immunizations Ordered Filled Immunization Date Status Comments [facility] e Immunization Name Name Influenza Virus 2020-01-16 Completed Universit y of Vaccine 00:00:00 [facility] Influenza Virus 2020-01-16 Completed Universit y of Vaccine 00:00:00 [facility] Influenza Virus 2020-01-16 Completed Universit y of Vaccine 00:00:00 [facility] Influenza Virus 2016-11-27 Completed Universit y of Vaccine 00:00:00 [facility] Influenza Virus 2016-11-27 Completed Universit y of Vaccine 00:00:00 [facility] Influenza Virus 2016-11-27 Completed Universit y of Vaccine 00:00:00 [facility] Pneumococcal 13 2015-05-12 Completed Universit y of Conjugate, PCV13 00:00:00 [facility] dical (Prevnar 13) Branch Pneumococcal 13 2015-05-12 Completed Universit y of Conjugate, PCV13 00:00:00 [facility] dical (Prevnar 13) Branch Pneumococcal 13 2015-05-12 Completed Universit y of Conjugate, PCV13 00:00:00 [facility] dical (Prevnar 13) Branch PPD (TB) 2015-04-03 Completed University of 00:00:00 [facility] PPD (TB) 2015-04-03 Completed University of 00:00:00 [facility] PPD (TB) 2015-04-03 Completed University of 00:00:00 [facility] Influenza Virus 2014-12-05 Completed Universit y of Vaccine 00:00:00 [facility] Influenza Virus 2014-12-05 Completed Universit y of Vaccine 00:00:00 [facility] Influenza Virus 2014-12-05 Completed Universit y of Vaccine 00:00:00 [facility] PPD (TB) 2014-04-13 Completed University of 00:00:00 [facility] PPD (TB) 2014-04-13 Completed University of 00:00:00 [facility] PPD (TB) 2014-04-13 Completed University of 00:00:00 [facility] Influenza Virus 2013-11-15 Completed Universit y of Vaccine 00:00:00 [facility] Influenza Virus 2013-11-15 Completed Universit y of Vaccine 00:00:00 [facility] Influenza Virus 2013-11-15 Completed Universit y of Vaccine 00:00:00 [facility] PPD (TB) 2013-09-08 Completed University of 00:00:00 [facility] PPD (TB) 2013-09-08 Completed University of 00:00:00 [facility] PPD (TB) 2013-09-08 Completed University of 00:00:00 [facility] Hep B, Adol or Pedi 2012-12-28 Completed Unive rsity of Dosage 00:00:00 [facility] Hep B, Adol or Pedi 2012-12-28 Completed Unive rsity of Dosage 00:00:00 [facility] Hep B, Adol or Pedi 2012-12-28 Completed Unive rsity of Dosage 00:00:00 [facility] Influenza Virus 2012-11-20 Completed Universit y of Vaccine 00:00:00 [facility] Influenza Virus 2012-11-20 Completed Universit y of Vaccine 00:00:00 [facility] Influenza Virus 2012-11-20 Completed Universit y of Vaccine 00:00:00 [facility] Branch Hep B, Adol or Pedi 2012-08-26 Completed Unive rsity of Dosage 00:00:00 [facility] Branch Hep B, Adol or Pedi 2012-08-26 Completed Unive rsity of Dosage 00:00:00 [facility] Branch Hep B, Adol or Pedi 2012-08-26 Completed Unive rsity of Dosage 00:00:00 [facility] Hep B, Adol or Pedi 2012-07-27 Completed Unive rsity of Dosage 00:00:00 [facility] Branch Hep B, Adol or Pedi 2012-07-27 Completed Unive rsity of Dosage 00:00:00 [facility] Hep B, Adol or Pedi 2012-07-27 Completed Unive rsity of Dosage 00:00:00 [facility] Influenza Virus 2012-07-08 Completed Universit y of Vaccine 00:00:00 [facility] Influenza Virus 2012-07-08 Completed Universit y of Vaccine 00:00:00 [facility] Influenza Virus 2012-07-08 Completed Universit y of Vaccine 00:00:00 [facility] Hep B, Adol or Pedi 2012-06-19 Completed Unive rsity of Dosage 00:00:00 [facility] Pneumococcal 13 2012-06-19 Completed Universit y of Conjugate, PCV13 00:00:00 [place] Me dical (Prevnar 13) Branch Hep B, Adol or Pedi 2012-06-19 Completed Unive rsity of Dosage 00:00:00 [facility] Pneumococcal 13 2012-06-19 Completed Universit y of Conjugate, PCV13 00:00:00 [place] Me dical (Prevnar 13) Branch Hep B, Adol or Pedi 2012-06-19 Completed Unive rsity of Dosage 00:00:00 [facility] Pneumococcal 13 2012-06-19 Completed Universit y of Conjugate, PCV13 00:00:00 [facility] dical (Prevnar 13) [place] PPD (TB) 2012-05-30 Completed [facility] 00:00:00 [facility] PPD (TB) 2012-05-30 Completed [facility] 00:00:00 [facility] PPD (TB) 2012-05-30 Completed [facility] 00:00:00 [facility] Vital Signs Vital Name Observation Time Observation Value Comments Source Systolic blood 2021-03-29 15:21:00 141 mm[Hg] Univer sity of pressure [facility] Diastolic blood 2021-03-29 15:21:00 74 mm[Hg] Unive rsity of pressure [facility] Heart rate 2021-03-29 15:21:00 72 /min [facility] Respiratory rate 2021-03-29 15:17:00 22 /min Univ ersity [facility] Body height 2021-03-29 15:17:00 167.6 cm [facility] Body weight 2021-03-29 15:17:00 89.268 kg [facility] BMI 2021-03-29 15:17:00 31.76 kg/m2 [facility] Oxygen saturation in 2021-03-29 15:17:00 94 /min [facility] Arterial blood by [facility] Pulse oximetry [place] Procedures Procedure Date / Time Performing Clinician Source Performed INSURANCE CORRESPONDENCE 2021-02-28 06:01:00 Doctor Unassigned, [facility] [place] [facility] Encounters Start End Encounter Admission Attending Care Care Encounter Source Date/Time Date/Time Type Type Clinicians Facility Department ID 2021-06-09 Outpatient [facility] [id number] [place] 09:39:30 [facility] 2018-06-22 Inpatient [facility] [id number] [facility] H 07:53:49 2018-06-22 Outpatient [facility] [id number] [facility] 07:53:48 2021-12-10 2021-12-10 Outpatient [facility]A [facility] [id number] [facility] 13:30:00 13:30:00 SENDIL [id number] ity [facility] 2021-03-29 2021-03-29 Office Ho KYALAN [id number] Univers 09:00:00 09:42:55 Visit Sendil Ene GARDUNO [id number] ity of [place] [id number] Kendal lima PROFESSIO [id number] [address] 2021-03-29 2021-03-29 Outpatient R HO, [facility] [id number] Univers 09:00:00 09:42:55 SENDIL ity of [facility] 2021-02-28 2021-02-28 Orders Doctor KAMLESH [id number] Univers 00:00:00 00:00:00 Only Unassigned, JACQUE [id number] ity of [place] [facility] [id number] Paulie as [id number] [address] 2020-05-16 2020-05-16 Telephone [facility] [id number] 00:00:00 00:00:00 Lauren Bobo MULTISPEC [id number] IALTY [id number] [place] [id number] [facility] 2020-05-16 2020-05-16 Telephone [facility] [id number] 00:00:00 00:00:00 Lauren A MULTISPEC [id number] IALTY [id number] [place] [id number] [facility] 2020-05-15 2020-05-15 Telephone [facility] [id number] 00:00:00 00:00:00 Izzy santana MULTISPEC [id number] IALTY [id number] [place] [id number] [facility] 2020-05-15 2020-05-15 Abstract [facility] [id number] 00:00:00 00:00:00 Izzy santana N MULTISPEC [id number] IALTY [id number] [place] [id number] [facility] 2020-05-12 2020-05-12 Abstract [facility] [id number] 00:00:00 00:00:00 Lauren Bobo MULTISPEC [id number] [facility] [id number] [place] [id number] [facility] 2020-05-12 2020-05-12 Committee [facility] [id number] 00:00:00 00:00:00 Review Lauren Bobo MULTISPEC [id number] [place] [id number] [place] [id number] [facility] 2020-04-18 2020-04-18 Orders Doctor KAMLESH [id number] 00:00:00 00:00:00 Only Unassigned, JACQUE [id number] [place] [facility] [id number] 2020-02-28 2020-02-28 Office [facility] [id number] 12:46:09 13:47:51 Visit Gus Garduno [id number] [place] [id number] Christin [id number] [facility] 059 Building Results This patient has no known results.
[2021-11-19 14:30] LABS: Absolute Lymphocytes (CBC) 0.8 K/uL (0.7-4.9); Hematocrit 25.4 % (39.6-49.0); Lymphocytes % 17.3 % (15.3-44.8); MCV 91.7 fL (80-100); MPV 8.6 fL (7.6-11.3); RBC Red Blood Cell Count 2.77 M/uL (4.33-5.43)
[2021-11-19 14:48] LABS: Albumin 3.3 g/dL (3.4-5.0); Bilirubin Total 0.8 mg/dL (0.2-1.0); Protein, Total 7.6 g/dL (6.4-8.2)
[2021-11-19] MEDS ORDERED: PROMETHAZINE INJ 25 MG/ML AMP ONE (14:52)
[2021-11-19] MEDS ORDERED: FAMOTIDINE 20 MG/2 ML VIAL IV ONE (14:52)
[2021-11-19] MEDS ORDERED: NA CHLORIDE 0.9% 1,000 ML ONE (14:53)
[2021-11-19 15:07] LABS: Platelet Estimate DECR; White Blood Cell Scan OK (OK)
[2021-11-19 15:08] LABS: Anisocytosis 1+; Blood Morphology Comment NOTED (NOT SEEN)
[2021-11-19] MEDS ORDERED: ALPRAZOLAM 1 MG TABLET ONE (16:42)
--- NOTE | 2021-11-19 17:19 | ER ---
Nurse's Notes [facility] Name: Chase Chacon Jr Age: 46 yrs Sex: Male : 1975 Arrival Date: 11/19/2021 Time: 12:56 Bed 15 Private MD: RANDI MILLARD Diagnosis: Vomiting;Dehydration Presentation: 11/19 13:03 Chief complaint: Patient states: Nausea and vomiting started last night, scheduled for bm7 dialysis today but could not go. Some diarrhea, has gastroparesis. Coronavirus screen: Client denies travel out of the [place] in the last 14 days. At this time, the client does not indicate any symptoms associated with coronavirus-19. Ebola Screen: No symptoms or risks identified at this time. Initial Sepsis Screen: Does the patient meet any 2 criteria? No. Patient's initial sepsis screen is negative. Does the patient have a suspected source of infection? No. Patient's initial sepsis screen is negative. Risk Assessment: Do you want to hurt yourself or someone else? Patient reports no desire to harm self or others. Onset of symptoms was November 19, 2021. 13:03 Method Of Arrival: Ambulatory bm7 13:03 Acuity: LEON 3 bm7 Triage Assessment: 13:06 General: Appears in no apparent distress. uncomfortable, Behavior is calm, cooperative, bm7 appropriate for age. Pain: Denies pain. GI: Reports diarrhea, nausea, vomiting. Historical: - Allergies: 16:56 No Known Allergies; jl7 - Home Meds: 13:06 alprazolam 1 mg Oral tab 1 tab daily [Active]; hydralazine 10 mg Oral tab 1 tab as bm7 needed [Active]; Nifedipine ER Oral 90 mg daily [Active]; promethazine 12.5 mg Oral tab 1 tab as needed [Active]; pantoprazole 40mg Oral 1 tab once daily [Active]; sevelamer carbonate 800 mg Oral tab 3 tabs 3 times per day [Active]; ropinirole 4 mg Oral tab 1 tab nightly [Active]; telmisartan 40 mg Oral tab 1 tab once daily [Active]; tizanidine 4 mg Oral tab 1 tab nightly [Active]; - PMHx: 13:06 Cataract; diabetes mellitus; hemodialysis; Hypertensive disorder; kidney failure; bm7 - PSHx: 13:06 Left arm dialysis fistula; bm7 - Immunization history:: Adult Immunizations unknown, Client reports having NOT received the Covid vaccine. - Social history:: Smoking status: Patient denies any tobacco usage or history of. Screenin:35 Abuse screen: Denies threats or abuse. Nutritional screening: No deficits noted. kr3 Tuberculosis screening: No symptoms or risk factors identified. Fall Risk IV access (20 points). Total Cerda Fall Scale indicates No Risk (0-24 pts). Assessment: 13:25 General: Appears in no apparent distress. uncomfortable, Behavior is calm, cooperative. kr3 14:20 Reassessment: No changes from previously documented assessment. Patient and/or family kr3 updated on plan of care and expected duration. Pain level reassessed. 17:36 GI: Bowel sounds present X 4 quads. Abd is soft and non tender X 4 quads. kr3 Vital Signs: 13:03 BP 115 / 42; Pulse 77; Resp 16; Temp 97.6; Pulse Ox 93% ; Weight 81.65 kg; Height 5 ft. bm7 6 in. (167.64 cm); Pain 0/10; 14:00 BP 115 / 54; Pulse 73; Resp 16; Pulse Ox 98% on R/A; kr3 15:00 BP 118 / 79; Pulse 82; Resp 16; Pulse Ox 98% on R/A; kr3 16:11 BP 123 / 67; Pulse 81; Resp 16; Pulse Ox 98% on R/A; kr3 17:33 BP 118 / 46; Pulse 78; Resp 16; Pulse Ox 98% on R/A; kr3 13:03 Body Mass Index 29.05 (81.65 kg, 167.64 cm) bm7 ED Course: 12:56 Patient arrived in ED. mr 12:56 RANDI MILLARD is Private Physician. mr 13:03 Babak Henriquez MD is Attending Physician. kdr 13:06 Triage completed. bm7 13:06 Arm band placed on right wrist. Patient notified of wait time. bm7 13:08 Patient placed in waiting room. bm7 13:54 CBC with Diff Sent. bm7 13:55 Labs ordered per protocol. Drawn by ED staff. bm7 13:55 CMP Sent. bm7 13:55 Lipase Sent. bm7 13:56 Initial lab(s) drawn, by ED staff, sent to lab. Inserted saline lock: 20 gauge in right bm7 antecubital area, using aseptic technique. Blood collected. 14:28 Hanna Holland, RN is Primary Nurse. kr3 17:36 No provider procedures requiring assistance completed. IV discontinued, intact, kr3 bleeding controlled, No redness/swelling at site. Pressure dressing applied. 17:37 Bed in low position. Call light in reach. Side rails up X 1. kr3 Administered Medications: 15:06 Drug: Phenergan (promethazine) 25 mg Route: IVP; Site: right antecubital; kr3 15:40 Follow up: Response: No adverse reaction kr3 15:06 Drug: Pepcid (famotidine) 20 mg Route: IVP; Site: right antecubital; kr3 15:39 Follow up: Response: No adverse reaction kr3 15:06 Drug: NS 0.9% 1000 ml Route: IV; Rate: 1 bolus; Site: right antecubital; kr3 17:34 Follow up: Response: No adverse reaction; IV Status: Completed infusion; IV Intake: kr3 1000ml 16:36 Drug: ALPRAZolam Tablet 1 mg Route: PO; kr3 17:34 Follow up: Response: No adverse reaction kr3 Medication: 17:38 VIS not applicable for this client. kr3 Intake: 17:34 IV: 1000ml; Total: 1000ml. kr3 Outcome: 17:19 Discharge ordered by . kdr 17:37 Discharged to home ambulatory. kr3 17:37 Condition: stable 17:37 Discharge instructions given to patient, Instructed on discharge instructions, follow up and referral plans. Demonstrated understanding of instructions, follow-up care, medications, Prescriptions given X 1. 17:38 Patient left the ED. kr3 Signatures: Babak Henriquez MD MD kdr Rivera, Mary Jj Saba RN RN [id number] Josselin Calloway RN RN 7 Hanna Holland, JENNIE RN kr3 Corrections: (The following items were deleted from the chart) 16:08 16:08 General: Appears in no apparent distress. uncomfortable, kr3 kr3 16:10 16:09 BP 115 / 54; Pulse 73bpm; Resp 16bpm; Pulse Ox 98% RA; kr3 kr3
--- NOTE | 2021-11-19 17:19 | EDPHYS ---
Physician Documentation [facility] Name: Chase Chacon Jr Age: 46 yrs Sex: Male : 1975 Arrival Date: 11/19/2021 Time: 12:56 Bed 15 Private MD: RANDI MILLARD ED Physician Babak Henriquez HPI: 11/19 14:43 This 46 yrs old Male presents to ER via Ambulatory with complaints of kdr Abdominal Pain, Vomiting. 14:43 The patient presents to the emergency department with nausea, that is mild, that is kdr moderate. Onset: The symptoms/episode began/occurred suddenly, 2 day(s) ago. Possible causes: Patient has a history of gastroparesis. He states that he feels like his gastroparesis is acting up. 14:45 Severity of symptoms: At their worst the symptoms were moderate severe in the emergency kdr department the symptoms are unchanged. The patient has experienced similar episodes in the past, multiple times. The patient has not recently seen a physician. Historical: - Allergies: 16:56 No Known Allergies; jl7 - Home Meds: 13:06 alprazolam 1 mg Oral tab 1 tab daily [Active]; hydralazine 10 mg Oral tab 1 tab as bm7 needed [Active]; Nifedipine ER Oral 90 mg daily [Active]; promethazine 12.5 mg Oral tab 1 tab as needed [Active]; pantoprazole 40mg Oral 1 tab once daily [Active]; sevelamer carbonate 800 mg Oral tab 3 tabs 3 times per day [Active]; ropinirole 4 mg Oral tab 1 tab nightly [Active]; telmisartan 40 mg Oral tab 1 tab once daily [Active]; tizanidine 4 mg Oral tab 1 tab nightly [Active]; - PMHx: 13:06 Cataract; diabetes mellitus; hemodialysis; Hypertensive disorder; kidney failure; bm7 - PSHx: 13:06 Left arm dialysis fistula; bm7 - Immunization history:: Adult Immunizations unknown, Client reports having NOT received the Covid vaccine. - Social history:: Smoking status: Patient denies any tobacco usage or history of. ROS: 14:45 Constitutional: Negative for fever, chills, and weight loss, Eyes: Negative for injury, kdr pain, redness, and discharge, ENT: Negative for injury, pain, and discharge, Neck: Negative for injury, pain, and swelling, Cardiovascular: Negative for chest pain, palpitations, and edema, Respiratory: Negative for shortness of breath, cough, wheezing, and pleuritic chest pain, Back: Negative for injury and pain, : Negative for injury, bleeding, discharge, and swelling, MS/Extremity: Negative for injury and deformity, Skin: Negative for injury, rash, and discoloration, Neuro: Negative for headache, weakness, numbness, tingling, and seizure activity. 14:45 Abdomen/GI: Positive for nausea and vomiting, abdominal cramps. Exam: 14:45 Constitutional: This is a well developed, well nourished patient who is awake, alert, kdr and in no acute distress. Head/Face: Normocephalic, atraumatic. Eyes: Pupils equal round and reactive to light, extra-ocular motions intact. Lids and lashes normal. Conjunctiva and sclera are non-icteric and not injected. Cornea within normal limits. Periorbital areas with no swelling, redness, or edema. Neck: Trachea midline, no thyromegaly or masses palpated, and no cervical lymphadenopathy. Supple, full range of motion without nuchal rigidity, or vertebral point tenderness. No Meningismus. Chest/axilla: Normal chest wall appearance and motion. Nontender with no deformity. No lesions are appreciated. Cardiovascular: Regular rate and rhythm with a normal S1 and S2. No gallops, murmurs, or rubs. Normal PMI, no JVD. No pulse deficits. Respiratory: Lungs have equal breath sounds bilaterally, clear to auscultation and percussion. No rales, rhonchi or wheezes noted. No increased work of breathing, no retractions or nasal flaring. Abdomen/GI: Soft, non-tender, with normal bowel sounds. No distension or tympany. No guarding or rebound. No evidence of tenderness throughout. Back: No spinal tenderness. No costovertebral tenderness. Full range of motion. Skin: Warm, dry with normal turgor. Normal color with no rashes, no lesions, and no evidence of cellulitis. MS/ Extremity: Pulses equal, no cyanosis. Neurovascular intact. Full, normal range of motion. Neuro: Awake and alert, GCS 15, oriented to person, place, time, and situation. Cranial nerves II-XII grossly intact. Motor strength 5/5 in all extremities. Sensory grossly intact. Cerebellar exam normal. Normal gait. Psych: Awake, alert, with orientation to person, place and time. Behavior, mood, and affect are within normal limits. Vital Signs: 13:03 BP 115 / 42; Pulse 77; Resp 16; Temp 97.6; Pulse Ox 93% ; Weight 81.65 kg; Height 5 ft. bm7 6 in. (167.64 cm); Pain 0/10; 14:00 BP 115 / 54; Pulse 73; Resp 16; Pulse Ox 98% on R/A; kr3 15:00 BP 118 / 79; Pulse 82; Resp 16; Pulse Ox 98% on R/A; kr3 16:11 BP 123 / 67; Pulse 81; Resp 16; Pulse Ox 98% on R/A; kr3 17:33 BP 118 / 46; Pulse 78; Resp 16; Pulse Ox 98% on R/A; kr3 13:03 Body Mass Index 29.05 (81.65 kg, 167.64 cm) bm7 MDM: 17:17 Data reviewed: vital signs, nurses notes. Counseling: I had a detailed discussion with kdr the patient and/or guardian regarding: the historical points, exam findings, and any diagnostic results supporting the discharge/admit diagnosis, lab results, radiology results, The patient is to get to dialysis tomorrow. ED course: I have attempted to contact Dr. Mccoy and left 3 messages at this point. I spoke with Dr. Heredia and discussed the case specifically the anion gap. Since the patient is not acidotic and the rest of the labs are not insignificant. The patient can be safely discharged to home for dialysis tomorrow.. 17:19 Patient medically screened. kdr 11/19 13:04 Order name: CBC with Diff; Complete Time: 15:49 kdr 11/19 13:04 Order name: CMP; Complete Time: 15:05 kdr 11/19 13:04 Order name: Lipase; Complete Time: 15:05 kdr 11/19 14:40 Order name: CBC Smear Scan; Complete Time: 15:49 EDMS 11/19 13:04 Order name: IV Saline Lock; Complete Time: 13:54 kdr 11/19 13:04 Order name: Labs collected and sent; Complete Time: 13:54 kdr Administered Medications: 15:06 Drug: Phenergan (promethazine) 25 mg Route: IVP; Site: right antecubital; kr3 15:40 Follow up: Response: No adverse reaction kr3 15:06 Drug: Pepcid (famotidine) 20 mg Route: IVP; Site: right antecubital; kr3 15:39 Follow up: Response: No adverse reaction kr3 15:06 Drug: NS 0.9% 1000 ml Route: IV; Rate: 1 bolus; Site: right antecubital; kr3 17:34 Follow up: Response: No adverse reaction; IV Status: Completed infusion; IV Intake: kr3 1000ml 16:36 Drug: ALPRAZolam Tablet 1 mg Route: PO; kr3 17:34 Follow up: Response: No adverse reaction kr3 Disposition Summary: 11/19/21 17:19 Discharge Ordered Location: Home kdr Problem: an acute exacerbation kdr Symptoms: have improved kdr Condition: Stable kdr Diagnosis - Vomiting kdr - Dehydration kdr Followup: kdr - With: Private Physician - When: 1 - 2 days - Reason: If symptoms return, Further diagnostic work-up, Recheck today's complaints, Continuance of care, Re-evaluation by your physician Discharge Instructions: - Discharge Summary Sheet kdr - Dehydration, Adult kdr - Nausea and Vomiting, Adult, [id number] kdr Forms: - Medication Reconciliation Form kdr - Thank You Letter kdr - Work release form eb Prescriptions: - promethazine 25 mg Oral Tablet - take 1 tablet by ORAL route every 6 hours As needed; 20 tablet; Refills: 0, kdr Product Selection Permitted Signatures: Dispatcher [employer] Babak Dc MD MD kdr Jj Saba RN RN jl7 Josselin Calloway, RN RN bm7 Hanna Holland, RN RN kr3
[2021-11-19 19:58] VITALS: TEMP 97.6
[2021-11-19 20:01] VITALS: O2SAT 98
[2021-11-19 20:09] VITALS: BP 118/46
== END 2021-11-19 17:38 | disposition home or self-care (01) ==
LOC: ER 12:53
DX: R11.10 Vomiting, unspecified (principal); E86.0 Dehydration; E11.22 Type 2 diabetes mellitus with diabetic chronic kidney disease; N18.6 End stage renal disease; Z99.2 Dependence on renal dialysis
CPT/HCPCS: 96361; 85025; 36415; 83690; 80053; 96375; 96374; 99284; J2550; J7030

== ENCOUNTER 2021-12-12 03:04 | Emergency (ER) | payer OTHER ==
--- OUTSIDE RECORDS SUMMARY | 2021-12-12 03:08 | XMS REPORT | Continuity of Care Document ---
:1975 Author Organization [facility] t Address [address] [place] [address] Dr. [address]. [address] [place] [address] Care Team Providers Name Role Phone FREEMAN TORI Primary Care Physician Unavailable GUS TEAGUE K.HMena Attending Clinician Unavailable IRVIN CRUZ Attending Clinician Unavailable IRVIN CRUZ Attending Clinician Unavailable Ho SAINI, Gus K.HMena Attending Clinician Doctor Unassigned, [place] Attending Clinician Unavailable Oscar SAINI, Lauren Bobo Attending Clinician Navi SAINI, Izzy Roque Attending Clinician [phone] Payers Payer Name Policy Type Policy Number Effective Date Expiration Date S ource $20 F [id number] 2009 00:00:00 MEDICARE PART A \\T\\ [id number] 2012 B 00:00:00 COMMERCIAL [id number] 2016 NON-CONTRACT 00:00:00 GENERIC Problems Condition Condition Condition Status Onset Resolution Last Treating Co mments Source Name Details Category Date Date Treatment Clinician Date Obesity Obesity Disease Active Univers (BMI (BMI 5-09 ity of 30-39.9) 30-39.9) 00:00: [address] ESRD (end ESRD (end Disease Active [facility] 00:[facility]: Medical disease) disease) 00 Center on on dialysis dialysis Pre-transp Pre-transp Disease Active [facility]02 [facility] evaluation evaluation 00:00: Me dical for for [...] nivers on on 03-17 ity of 00:00: [place] [address] Medical Branch Cataract Cataract Disease Active Overview: Un gregg 03-17 Formattin ity of 00:00: g of this [place] note Medical might be Branch different from the original. 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 [place] renal of renal Medica l origin origin Branch Retinopath Retinopath Disease Active U nivers y y ity of [place] [facility] Allergies, Adverse Reactions, Alerts Allergy Allergy Status Severity Reaction(s) Onset Inactive Treating Comm ents Source Name Type Date Date Clinician Prometha Propensi Active [facility] 09[facility]12 [facility] adverse 00:00: Medical reaction 00 Center s PROMETHA DRUG Active Low Anxiety Univers ZINE HCL INGREDI 10-08 ity of 00:00: [place] 00 Medical Branch Prometha Propensi Active Anxiety "jumpy" Univ ers zine Hcl ty to 10-08 ity of adverse 00:00: [place] reaction 00 Medical s Branch Social History Social Habit Start Date Stop Date Quantity Comments Source History SDOH University o f Alcohol Frequency [facility] edical Branch History [facility] University o f Alcohol Std [place] Medical Drinks Branch History SDOH University o f Alcohol Binge [place] Medic al Branch Exposure to Not sure University of SARS-CoV-2 [facility] (event) Branch Alcohol intake 2020-02-28 2020-02-28 Ex-drinker University of 00:00:00 00:00:00 (finding) [place] [facility] Tobacco use and 2016-10-08 2016-10-08 Never used Universit y of exposure 00:00:00 00:00:00 [facility] Alcohol Comment 2016-10-08 2016-10-08 quit 4-5 years Unive rsity of 00:00:00 00:00:00 ago [place] [facility] Sex Assigned At [address] [address] [facility] k[facility] 00:00:00 00:00:00 Medical Center Smoking Status Start Date Stop Date Source Never smoker [facility] Medications Ordered Filled Start Stop Current [...] Units ity of Human, 09:13: under the [place] (HUMALOG) 17 skin 2 Medical 100 unit/mL (two) Branch cartridge times daily. NIFEdipine Yes 90mg Take 90 mg U nivers CC 90 mg SR 1-13 by mouth 2 it y of tablet 09:13: (two) [place] 17 times Medical daily. Branch Insulin Yes 25U inject 25 Unive rs Glargine 1-13 Units ity of (BASAGLAR 09:13: under the [place] as KWIKPEN 17 skin. Medical U-100 Branch INSULIN) 100 unit/mL (3 mL) injection amLODIPine Yes 10mg Take 10 mg U nivers 10 mg 1-13 by mouth ity of tablet 09:13: daily. [address] aspirin 81 Yes 81mg Take 81 mg U nivers mg EC 1-13 by mouth ity of tablet 09:13: daily. [address] sevelamer Yes 800mg Take 800 Uni vers (RENVELA) 1-13 mg by ity of 800 mg 09:13: mouth 3 [place] tablet 17 (three) Medical times Branch daily with meals. ALPRAZolam 2022-0 Yes .25mg Take 0.25 U nivers (XANAX) 1-13 mg by ity of 0.25 mg 09:13: mouth 2 [place] tablet 17 (two) Medical times Branch daily. Insulin 202-0 Yes 20U inject 20 Unive rs Lispro, 1-13 Units ity of Human, 09:13: under the [place] (HUMALOG) 17 skin 2 Medical 100 unit/mL (two) Branch cartridge times daily. NIFEdipine 2021-0 Yes 90mg Take 90 mg U nivers CC 90 mg SR 1-13 by mouth 2 it y of tablet 09:13: (two) [place] [id number] times Medical daily. Branch Insulin 2021-0 Yes 25U inject 25 Unive rs Glargine 1-13 Units ity of (BASAGLAR 09:13: under the [place] as KWIKPEN 17 skin. Medical U-100 Branch INSULIN) 100 unit/mL (3 mL) injection amLODIPine 2021-0 Yes 10mg Take 10 mg U nivers 10 mg 1-13 by mouth ity of tablet 09:13: daily. [address] Branch aspirin 81 2021-0 Yes 81mg Take 81 mg U nivers mg EC 1-13 by mouth ity of tablet 09:13: daily. [address] Branch sevelamer 2021-0 Yes 800mg Take 800 Uni vers (RENVELA) 1-13 mg by ity of 800 mg 09:13: mouth 3 [place] tablet 17 (three) Medical times Branch daily with meals. ALPRAZolam 202-0 Yes .25mg Take 0.25 U nivers (XANAX) 1-13 mg by ity of 0.25 mg 09:13: mouth 2 [place] tablet 17 (two) Medical times Branch daily. [...] [place] 17 times Medical daily. Branch Insulin Yes 25U inject 25 Unive rs Glargine 1-13 Units ity of (BASAGLAR 09:13: under the [place] as KWIKPEN 17 skin. Medical U-100 Branch INSULIN) 100 unit/mL (3 mL) injection amLODIPine Yes 10mg Take 10 mg U nivers 10 mg -13 by mouth ity of tablet 09:13: daily. [address] Branch aspirin 81 Yes 81mg Take 81 mg U nivers mg EC -13 by mouth ity of tablet 09:13: daily. [address] Branch sevelamer Yes 800mg Take 800 Uni vers (RENVELA) 1-13 mg by ity of 800 mg 09:13: mouth 3 [place] tablet 17 (three) Medical times Branch daily with meals. sevelamer 2021- No 2400mg Take 2,400 Univers 800 mg 1-13 01-13 mg by ity of tablet 09:13: 00:00 mouth 3 [place] 15 :00 (three) Medical times Branch daily with meals. sevelamer 2021- No 2400mg Take 2,400 Univers 800 mg 1-13 01-13 mg by ity of tablet 09:13: 00:00 mouth 3 [place] 15 :00 (three) Medical times Branch daily with meals. atorvastati 2018-03 Yes [id number] 40mg Take 1 Univers n 40 mg 1-19 tablet by ity of tablet 00:00: mouth at [place] [address] bedtime. Medical Branch atorvastati 2018-03 Yes [id number] 40mg Take 1 Univers n 40 mg 1-19 tablet by ity of tablet 00:00: mouth at [place] [address] bedtime. Medical Branch atorvastati 2018-03 Yes [id number] 40mg Take 1 Univers n 40 mg 1-19 tablet by ity of tablet 00:00: mouth at [place] [address] bedtime. Medical Branch tiZANidine Yes Univers 2 mg tablet 4-26 ity of 00:00: [place] 00 Medical Branch tiZANidine Yes Univers 2 mg tablet 4-26 ity of 00:00: [place] tiZANidine Yes Univers 2 mg tablet 4-26 ity of 00:00: [place] 00 [facility] Branch Immunizations Ordered Filled Immunization Date Status Comments Sour e Immunization Name Name Influenza Virus 2020-01-16 Completed Universit y of Vaccine 00:00:00 [place] [facility] Influenza Virus 2020-01-16 Completed Universit y of Vaccine 00:00:00 [place] [facility] Influenza Virus 2020-01-16 Completed Universit y of Vaccine 00:00:00 [place] [facility] Influenza Virus 2016-11-27 Completed Universit y of Vaccine 00:00:00 [place] [facility] Influenza Virus 2016-11-27 Completed Universit y of Vaccine 00:00:00 [place] [facility] Influenza Virus 2016-11-27 Completed Universit y of Vaccine 00:00:00 [place] [facility] Pneumococcal 13 2015-05-12 Completed Universit y of Conjugate, PCV13 00:00:00 [facility] dical (Prevnar 13) Branch Pneumococcal 13 2015-05-12 Completed Universit y of Conjugate, PCV13 00:00:00 [facility] dical (Prevnar 13) Branch Pneumococcal 13 2015-05-12 Completed Universit y of Conjugate, PCV13 00:00:00 [facility] dical (Prevnar 13) Branch PPD (TB) 2015-04-03 Completed University of 00:00:00 [place] [facility] PPD (TB) 2015-04-03 Completed University of 00:00:00 [place] [facility] PPD (TB) 2015-04-03 Completed University of 00:00:00 [place] [facility] Influenza Virus 2014-12-05 Completed Universit y of Vaccine 00:00:00 [place] [facility] Influenza Virus 2014-12-05 Completed Universit y of Vaccine 00:00:00 [place] [facility] Influenza Virus 2014-12-05 Completed Universit y of Vaccine 00:00:00 [place] [facility] PPD (TB) 2014-04-13 Completed University of 00:00:00 [place] [facility] PPD (TB) 2014-04-13 Completed University of 00:00:00 [place] [facility] PPD (TB) 2014-04-13 Completed University of 00:00:00 [place] [facility] Influenza Virus 2013-11-15 Completed Universit y of Vaccine 00:00:00 [place] [facility] Influenza Virus 2013-11-15 Completed Universit y of Vaccine 00:00:00 [place] [facility] Influenza Virus 2013-11-15 Completed Universit y of Vaccine 00:00:00 [place] [facility] PPD (TB) 2013-09-08 Completed University of 00:00:00 [place] [facility] PPD (TB) 2013-09-08 Completed University of 00:00:00 [place] [facility] PPD (TB) 2013-09-08 Completed University of 00:00:00 [place] [facility] Hep B, Adol or Pedi 2012-12-28 Completed Unive rsity of Dosage 00:00:00 [place] [facility] Hep B, Adol or Pedi 2012-12-28 Completed Unive rsity of Dosage 00:00:00 [facility] Hep B, Adol or Pedi 2012-12-28 Completed Unive rsity of Dosage 00:00:00 [facility] Influenza Virus 2012-11-20 Completed Universit y of Vaccine 00:00:00 [facility] Influenza Virus 2012-11-20 Completed Universit y of Vaccine 00:00:00 [place] [facility] Influenza Virus 2012-11-20 Completed Universit y of Vaccine 00:00:00 [facility] Hep B, Adol or Pedi 2012-08-26 Completed Unive rsity of Dosage 00:00:00 [facility] Hep B, Adol or Pedi 2012-08-26 Completed Unive rsity of Dosage 00:00:00 [facility] Hep B, Adol or Pedi 2012-08-26 Completed Unive rsity of Dosage 00:00:00 [place] [facility] Hep B, Adol or Pedi 2012-07-27 Completed Unive rsity of Dosage 00:00:00 [place] [facility] Hep B, Adol or Pedi 2012-07-27 Completed Unive rsity of Dosage 00:00:00 [place] [facility] Hep B, Adol or Pedi 2012-07-27 Completed Unive rsity of Dosage 00:00:00 [place] [facility] Influenza Virus 2012-07-08 Completed Universit y of Vaccine 00:00:00 [place] [facility] Influenza Virus 2012-07-08 Completed Universit y of Vaccine 00:00:00 [place] [facility] Influenza Virus 2012-07-08 Completed Universit y of Vaccine 00:00:00 [place] [facility] Hep B, Adol or Pedi 2012-06-19 Completed Unive rsity of Dosage 00:00:00 [place] [facility] Pneumococcal 13 2012-06-19 Completed Universit y of Conjugate, PCV13 00:00:00 [facility] [place] [facility] (Prevnar 13) Branch Hep B, Adol or Pedi 2012-06-19 Completed Unive rsity of Dosage 00:00:00 [place] [facility] Pneumococcal 13 2012-06-19 Completed Universit y of Conjugate, PCV13 00:00:00 [facility] dical (Prevnar 13) Branch Hep B, Adol or Pedi 2012-06-19 Completed Unive rsity of Dosage 00:00:00 [place] [facility] Pneumococcal 13 2012-06-19 Completed Universit y of Conjugate, PCV13 00:00:00 [facility] dical (Prevnar 13) Branch PPD (TB) 2012-05-30 Completed University 00:00:00 [place] [facility] PPD (TB) 2012-05-30 Completed University 00:00:00 [place] [facility] PPD (TB) 2012-05-30 Completed University 00:00:00 [place] [facility] Vital Signs Vital Name Observation Time Observation Value Comments Source Systolic blood 2021-03-29 15:21:00 141 mm[Hg] Univer sity of pressure [facility] Diastolic blood 2021-03-29 15:21:00 74 mm[Hg] Unive rsity of pressure [facility] Heart rate 2021-03-29 15:21:00 72 /min [facility] Oxygen saturation in 2021-03-29 15:17:00 94 /min [facility] Arterial blood by [facility] Pulse oximetry [place] Respiratory rate 2021-03-29 15:17:00 22 /min [facility] Body height 2021-03-29 15:17:00 167.6 cm [facility] Body weight 2021-03-29 15:17:00 89.268 kg [facility] BMI 2021-03-29 15:17:00 31.76 kg/m2 [facility] Procedures Procedure Date / Time Performing Clinician Source Performed INSURANCE CORRESPONDENCE 2021-02-28 06:01:00 Doctor Unassigned, [facility] [place] [facility] Encounters Start End Encounter Admission Attending Care Care Encounter Source Date/Time Date/Time Type Type Clinicians Facility Department ID 2021-06-09 Outpatient [facility] [id number] [place] 09:39:30 [facility] 2018-06-22 Inpatient [facility] [id number] H 07:53:49 2018-06-22 Outpatient [facility] [id number] HH 07:53:48 2021-12-10 2021-12-10 [facility] [id number] Univers 13:30:00 14:14:02 SENDIL ity [facility] 2021-12-10 2021-12-10 [facility] [id number] Univers 13:30:00 13:30:00 SENDIL [id number] ity [facility] 2021-03-29 2021-03-29 [facility] [id number] Univers 09:00:00 09:42:55 Visit Sendil Ene CRESPO [id number] ity [facility] [id number] [facility] PROFESS [id number] [address] 2021-03-29 2021-03-29 [facility] [id number] Univers 09:00:00 09:42:55 SENDIL ity [facility] 2021-02-28 2021-02-28 Orders Doctor KAMLESH [id number] Univers 00:00:00 00:00:00 Only Unassigned, JACQUE [id number] ity of [place] [facility] [id number] [place] as [id number] [address] 2020-05-16 2020-05-16 Telephone [facility] [id number] 00:00:00 00:00:00 Lauren Bobo MULTISPEC [id number] IALTY [id number] [place] [id number] [facility] 2020-05-16 2020-05-16 Telephone [facility] [id number] 00:00:00 00:00:00 [place] A MULTISPEC [id number] IALTY [id number] [place] [id number] [facility] 2020-05-15 2020-05-15 [facility] [id number] 00:00:00 00:00:00 Izzy santana MULTISPEC [id number] IALTY [id number] [place] [id number] [facility] 2020-05-15 2020-05-15 Abstract Perla [facility] [id number] 00:00:00 00:00:00 Izzy santana MULTISPEC [id number] IALTY [id number] [place] [id number] [facility] 2020-05-12 2020-05-12 Abstract [facility] [id number] 00:00:00 00:00:00 Lauren Bobo MULTISPEC [id number] IALTY [id number] [place] [id number] [facility] 2020-05-12 2020-05-12 Committee [facility] [id number] 00:00:00 00:00:00 Review Aguilar A MULTISPEC [id number] IALTY [id number] [place] [id number] [facility] 2020-04-18 2020-04-18 Orders Doctor KAMLESH [id number] 00:00:00 00:00:00 Only Unassigned, JACQUE [id number] [place] [facility] [id number] 2020-02-28 2020-02-28 [facility] [id number] 12:46:09 13:47:51 Visit Gus Crespo [id number] [place] [id number] Christ[place] [phone] [facility] 059 Building Results This patient has no known results.
--- NOTE | 2021-12-12 04:25 | ER ---
Nurse's Notes [facility] Name: Chase Chacon Jr Age: 46 yrs Sex: Male : 1975 Arrival Date: 12/12/2021 Time: 03:07 Bed 19 Private MD: Diagnosis: Other hemorrhoids Presentation: 12/12 03:38 Chief complaint: Patient states: hemorrhoid pain began yesterday increasing in pain kl unable to sit down. Coronavirus screen: Vaccine status: Patient reports receiving the 2nd dose of the covid vaccine. Ebola Screen: Patient negative for fever greater than or equal to 101.5 degrees Fahrenheit, and additional compatible Ebola Virus Disease symptoms. Initial Sepsis Screen: Does the patient meet any 2 criteria? No. Patient's initial sepsis screen is negative. Does the patient have a suspected source of infection? No. Patient's initial sepsis screen is negative. Risk Assessment: Do you want to hurt yourself or someone else? Patient reports no desire to harm self or others. Note pt has dialysis M-W-F went yesterday due to missing Friday. 03:38 Method Of Arrival: Ambulatory kl 03:38 Acuity: LEON 4 kl 04:36 Onset of symptoms was December 11, 2021. kl Historical: - Allergies: 03:41 No Known Allergies; kl - Home Meds: 03:41 alprazolam 1 mg Oral tab 1 tab daily [Active]; hydralazine 10 mg Oral tab 1 tab as kl needed [Active]; Nifedipine ER Oral 90 mg daily [Active]; pantoprazole 40mg Oral 1 tab once daily [Active]; promethazine 12.5 mg Oral tab 1 tab as needed [Active]; ropinirole 4 mg Oral tab 1 tab nightly [Active]; sevelamer carbonate 800 mg Oral tab 3 tabs 3 times per day [Active]; telmisartan 40 mg Oral tab 1 tab once daily [Active]; tizanidine 4 mg Oral tab 1 tab nightly [Active]; - PMHx: 03:41 Cataract; diabetes mellitus; hemodialysis; Hypertensive disorder; kidney failure; kl - PSHx: 03:41 Left arm dialysis fistula; kl - Immunization history:: Adult Immunizations up to date. - Social history:: Smoking status: Patient denies any tobacco usage or history of. Screenin:43 Abuse screen: Denies threats or abuse. Nutritional screening: No deficits noted. Tuberculosis screening: No symptoms or risk factors identified. Fall Risk None identified. Assessment: 03:42 General: Appears uncomfortable, well groomed, well developed, Behavior is calm, kl cooperative. Pain: Complains of pain in rectum Pain currently is 10 out of 10 on a pain scale. Neuro: No deficits noted. Cardiovascular: No deficits noted. Respiratory: No deficits noted. GI: No deficits noted. No signs and/or symptoms were reported involving the gastrointestinal system. : No deficits noted. No signs and/or symptoms were reported regarding the genitourinary system. EENT: No deficits noted. No signs and/or symptoms were reported regarding the EENT system. Vital Signs: 03:38 BP 190 / 90; Pulse 77; Resp 18; Temp 98.2(O); Pulse Ox 98% ; Pain 10/10; kl 03:38 Weight 82.6 kg; Height 5 ft. 6 in. (167.64 cm); Pain 10/10; kl 04:35 BP 175 / 85; Pulse 70; Resp 18; Pulse Ox 98% on R/A; kl 03:38 Body Mass Index 29.39 (82.60 kg, 167.64 cm) ED Course: 03:07 Patient arrived in ED. ja2 03:32 Elodia Chavez MD is Attending Physician. sp3 03:41 Triage completed. kl 04:23 Kal Swan MD is Referral Physician. sp3 04:35 Patient has correct armband on for positive identification. kl 04:35 No provider procedures requiring assistance completed. Patient did not have IV access during this emergency room visit. Administered Medications: 04:34 Drug: HYDROcodone-acetaminophen 5 mg-325 mg 2 tabs Route: PO; kl 04:35 Follow up: Response: No adverse reaction kl Medication: 04:35 VIS not applicable for this client. Outcome: 04:24 Discharge ordered by . sp3 04:36 Discharged to home ambulatory, with family. kl 04:36 Condition: stable 04:36 Discharge instructions given to patient, Instructed on discharge instructions, follow up and referral plans. Demonstrated understanding of instructions, follow-up care. 04:37 Patient left the ED. Signatures: Krystal Milton RN RN Elodia Chavez MD MD sp3 Alla Otero2 Corrections: (The following items were deleted from the chart) 03:42 03:41 Allergies: NKA; kl kl
--- NOTE | 2021-12-12 04:25 | EDPHYS ---
Physician Documentation [facility] Name: Chase Chacon Jr Age: 46 yrs Sex: Male : 1975 Arrival Date: 12/12/2021 Time: 03:07 Bed 19 Private MD: ED Physician Elodia Chavez HPI: 12/12 04:19 This 46 yrs old Male presents to ER via Ambulatory with complaints of Rectal sp3 Pain. 04:19 46-year-old male with a history of hypertension, diabetes, end-stage renal disease on sp3 dialysis presents with chief complaint rectal pain and hemorrhoid which has been bothering him for over 2 weeks now. Patient has a GI specialist which she has been attempting to call but was on able to reach. He states that he wants to see surgery to get them removed. There is no current bleeding other than mild blood when he wipes after bowel movements. He denies any abdominal pain, vomiting, diarrhea, fever, rash, any other symptoms on ROS. Patient is ambulatory without difficulty.. Historical: - Allergies: 03:41 No Known Allergies; kl - Home Meds: 03:41 alprazolam 1 mg Oral tab 1 tab daily [Active]; hydralazine 10 mg Oral tab 1 tab as kl needed [Active]; Nifedipine ER Oral 90 mg daily [Active]; pantoprazole 40mg Oral 1 tab once daily [Active]; promethazine 12.5 mg Oral tab 1 tab as needed [Active]; ropinirole 4 mg Oral tab 1 tab nightly [Active]; sevelamer carbonate 800 mg Oral tab 3 tabs 3 times per day [Active]; telmisartan 40 mg Oral tab 1 tab once daily [Active]; tizanidine 4 mg Oral tab 1 tab nightly [Active]; - PMHx: 03:41 Cataract; diabetes mellitus; hemodialysis; Hypertensive disorder; kidney failure; kl - PSHx: 03:41 Left arm dialysis fistula; kl - Immunization history:: Adult Immunizations up to date. - Social history:: Smoking status: Patient denies any tobacco usage or history of. ROS: 04:21 Constitutional: Negative for fever, chills, and weight loss, Eyes: Negative for injury, sp3 pain, redness, and discharge, ENT: Negative for injury, pain, and discharge, Neck: Negative for injury, pain, and swelling, Cardiovascular: Negative for chest pain, palpitations, and edema, Respiratory: Negative for shortness of breath, cough, wheezing, and pleuritic chest pain, Back: Negative for injury and pain, MS/Extremity: Negative for injury and deformity, Skin: Negative for injury, rash, and discoloration, Neuro: Negative for headache, weakness, numbness, tingling, and seizure, Psych: Negative for depression, anxiety, suicide ideation, homicidal ideation, and hallucinations, Allergy/Immunology: Negative for hives, rash, and allergies, Endocrine: Negative for neck swelling, polydipsia, polyuria, polyphagia, and marked weight changes. 04:21 All other systems are negative. Exam: 04:21 Constitutional: This is a well developed, well nourished patient who is awake, alert, sp3 and in no acute distress. Head/Face: Normocephalic, atraumatic. Neck: Trachea midline, no thyromegaly or masses palpated, and no cervical lymphadenopathy. Supple, full range of motion without nuchal rigidity, or vertebral point tenderness. No Meningismus. Chest/axilla: Normal chest wall appearance and motion. Nontender with no deformity. No lesions are appreciated. Cardiovascular: Regular rate and rhythm with a normal S1 and S2. No gallops, murmurs, or rubs. Normal PMI, no JVD. No pulse deficits. Respiratory: Lungs have equal breath sounds bilaterally, clear to auscultation and percussion. No rales, rhonchi or wheezes noted. No increased work of breathing, no retractions or nasal flaring. Abdomen/GI: Soft, non-tender, with normal bowel sounds. No distension or tympany. No guarding or rebound. No evidence of tenderness throughout. Back: No spinal tenderness. No costovertebral tenderness. Full range of motion. Skin: Warm, dry with normal turgor. Normal color with no rashes, no lesions, and no evidence of cellulitis. Neuro: Awake and alert, GCS 15, oriented to person, place, time, and situation. Cranial nerves II-XII grossly intact. Motor strength 5/5 in all extremities. Sensory grossly intact. Cerebellar exam normal. Normal gait. Psych: Awake, alert, with orientation to person, place and time. Behavior, mood, and affect are within normal limits. 04:21 : Nonthrombosed hemorrhoid is present without active bleeding.. Vital Signs: 03:38 BP 190 / 90; Pulse 77; Resp 18; Temp 98.2(O); Pulse Ox 98% ; Pain 10/10; kl 03:38 Weight 82.6 kg; Height 5 ft. 6 in. (167.64 cm); Pain 10/10; kl 04:35 BP 175 / 85; Pulse 70; Resp 18; Pulse Ox 98% on R/A; kl 03:38 Body Mass Index 29.39 (82.60 kg, 167.64 cm) kl MDM: 04:19 Patient medically screened. sp3 Administered Medications: 04:34 Drug: HYDROcodone-acetaminophen 5 mg-325 mg 2 tabs Route: PO; kl 04:35 Follow up: Response: No adverse reaction kl Disposition Summary: 12/12/21 04:24 Discharge Ordered Location: Home sp3 Condition: Stable sp3 Diagnosis - Other hemorrhoids sp3 Followup: sp3 - With: Kal Swan MD - When: Upon discharge from the Emergency Department - Reason: Further diagnostic work-up Discharge Instructions: - Discharge Summary Sheet sp3 - High-Fiber Diet sp3 - Hemorrhoids sp3 - Surgical Procedures for Hemorrhoids sp3 Forms: - Medication Reconciliation Form sp3 - Thank You Letter sp3 - Antibiotic Education sp3 - Prescription Opioid Use sp3 Signatures: Krystal Milton RN RN Elodia Moctezuma MD MD sp3 Corrections: (The following items were deleted from the chart) 03:42 03:41 Allergies: NKA; kl kl
[2021-12-12] MEDS ORDERED: HYDROCODONE/APAP 5/325 MG TAB ONE (04:31)
[2021-12-14 05:07] VITALS: TEMP 98.2; O2SAT 98
[2021-12-14 05:08] VITALS: BP 175/85
== END 2021-12-12 04:37 | disposition home or self-care (01) ==
LOC: ER 03:04
DX: K64.8 Other hemorrhoids (principal)
CPT/HCPCS: 99283

== ENCOUNTER 2022-03-18 06:26 | Inpatient (IN) | payer OTHER ==
--- OUTSIDE RECORDS SUMMARY | 2022-03-18 06:31 | XMS REPORT | Continuity of Care Document ---
:1975 Author Organization [facility] t Address [address] [place] [address] [address]. [address] [place] [address] Care Team Providers Name Role Phone FREEMAN TORI Primary Care Physician Unavailable GUS TEAGUE.HMena Attending Clinician Unavailable ELISE RG Attending Clinician Unavailable ELISE RG Attending Clinician Unavailable DORI NORIEGA Attending Clinician Unavailable Elise Rg MD Attending Clinician Gus Teague MDHMena Attending Clinician Doctor Unassigned, [place] Attending Clinician Unavailable Lauren Zelaya MD Attending Clinician Izzy Mcelroy MD Attending Clinician 1, [facility] Cardio Fac Room Attending Clinician Unavailable Pc, Adc Echo Room 1 - Attending Clinician Unavailable Sarah Lewis MD Attending Clinician Vtc-Lab Attending Clinician Unavailable LAUREN ZELAYA Attending Clinician Unavailable Payers Payer Name Policy Type Policy Number Effective Date Expiration Date S ource MEDICARE PART A \\T\\ [id number] 2012 B 00:00:00 COMMERCIAL [id number] 2016 NON-CONTRACT 00:00:00 GENERIC Problems Condition Condition Condition Status Onset Resolution Last Treating Co mments Source Name Details Category Date Date Treatment Clinician Date Obesity Obesity Disease Active Univers (BMI (BMI 5-09 ity of 30-39.9) 30-39.9) 00:00: [address] Branch ESRD (end ESRD (end Disease Active [facility] 00:[facility]: Medical disease) disease) 00 Center on on dialysis dialysis Pre-transp Pre-transp Disease Active [facility] 10-02 [facility] evaluation evaluation 00:00: Me dical for for [...] nivers on on 03-17 ity of 00:00: [place] [facility] Branch Cataract Cataract Disease Active Overview: Un gregg 03-17 Formattin ity of 00:00: g of this [place] note Medical might be Branch different from the original. 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[place] renal of renal Medica l origin origin Branch Retinopath Retinopath Disease Active U nivers y y ity of [facility] Allergies, Adverse Reactions, Alerts Allergy Allergy Status Severity Reaction(s) Onset Inactive Treating Comm ents Source Name Type Date Date Clinician Prometha Propensi Active [facility] 09[facility]12 [facility] adverse 00:[facility]: Medical reaction 00 Center s PROMETHA DRUG Active Low Anxiety Univers ZINE HCL INGREDI 10-08 ity of 00:00: [place] [address] Medical Branch Prometha Propensi Active Anxiety "jumpy" Univ ers zine Hcl ty to 10-08 ity of adverse 00:00: [place] reaction 00 Medical s Branch Social History Social Habit Start Date Stop Date Quantity Comments Source History SDOH University o f Alcohol Frequency [place] M ed[facility] Branch History SDNY University o f Alcohol Std [place] Medical Drinks Branch History SDNY University o f Alcohol Binge [place] Medic al Branch Exposure to 2021-12-09 2021-12-19 Not sure [facility] SARS-CoV-2 00:00:00 13:32:00 [place] [facility] (event) Branch Alcohol intake 2020-02-28 2020-02-28 Ex-drinker University of 00:00:00 00:00:00 (finding) [facility] Tobacco use and 2016-10-08 2016-10-08 Smokeless tobacco Un iversity of exposure 00:00:00 00:00:00 non-user [facility] Alcohol Comment 2016-10-08 2016-10-08 quit 4-5 years Unive rsity of 00:00:00 00:00:00 ago [facility] Sex Assigned At [address] [facility] [address] [facility] 00:00:00 00:00:00 [facility] Center Smoking Status Start Date Stop Date Source Never smoked tobacco [facility] Medications Ordered Filled Start Stop Current Ordering Indication Dosage Frequency Signature Comments Components Source Medication Medication Date Date Medication? Clinician (SIG) Name Name ALPRAZolam Yes .25mg Take 0.25 U nivers (XANAX) 9-26 mg by ity of 0.25 mg 14:03: mouth 2 [place] tablet 53 (two) Medical times Branch daily. ALPRAZolam Yes .25mg Take 0.25 U nivers (XANAX) 9-26 mg by ity of 0.25 mg 14:03: mouth 2 [place] tablet 53 (two) Medical times Branch daily. ALPRAZolam Yes .25mg Take 0.25 U nivers (XANAX) 9-26 mg by ity of 0.25 mg 14:03: mouth 2 [place] tablet 53 (two) Medical times Branch daily. ALPRAZolam Yes .25mg Take 0.25 U nivers (XANAX) 9-26 mg by ity of 0.25 mg 14:03: mouth 2 [place] tablet 53 (two) Medical times Branch daily. Insulin 2-0 Yes 25U inject 25 Unive rs Glargine 9-26 Units ity of (BASAGLAR 14:03: under the [place] as KWIKPEN 48 skin. Medical U-100 Branch INSULIN) 100 unit/mL (3 mL) injection Insulin 2-0 Yes 25U inject 25 Unive rs Glargine 9-26 Units ity of (BASAGLAR 14:03: under the [place] as KWIKPEN 48 skin. Medical U-100 Branch INSULIN) 100 unit/mL (3 mL) injection Insulin 2-0 Yes 25U inject 25 Unive rs Glargine 9-26 Units ity of (BASAGLAR 14:03: under the [place] as KWIKPEN 48 skin. Medical U-100 Branch INSULIN) 100 unit/mL (3 mL) injection Insulin 2021-0 Yes 25U inject 25 Unive rs Glargine 9-26 Units ity of (BASAGLAR 14:03: under the [place] KWIKPEN 48 skin. Medical U-100 Branch INSULIN) 100 unit/mL (3 mL) injection NIFEdipine 2021-0 Yes 90mg Take 90 mg U nivers CC 90 mg SR 9-26 by mouth 2 it y of tablet 14:03: (two) [place] 42 times Medical daily. Branch NIFEdipine 2-0 Yes 90mg Take 90 mg U nivers CC 90 mg SR 9-26 by mouth 2 it y of tablet 14:03: (two) [place] 42 times Medical daily. Branch NIFEdipine 2-0 Yes 90mg Take 90 mg U nivers CC 90 mg SR 9-26 by mouth 2 it y of tablet 14:03: (two) [place] 42 times Medical daily. Branch NIFEdipine 2022-0 Yes 90mg Take 90 mg U nivers CC 90 mg SR 9-26 by mouth 2 it y of tablet 14:03: (two) [place] 42 times Medical daily. Branch amLODIPine 2022-0 Yes 10mg Take 10 mg U nivers 10 mg 9-26 by mouth ity of tablet 14:03: daily. [address] amLODIPine 2022-0 Yes 10mg Take 10 mg U nivers 10 mg 9-26 by mouth ity of tablet 14:03: daily. [address] amLODIPine 2022-0 Yes 10mg Take 10 mg U nivers 10 mg 9-26 by mouth ity of tablet 14:03: daily. [address] Branch amLODIPine 2021-0 Yes 10mg Take 10 mg U nivers 10 mg 9-26 by mouth ity of tablet 14:03: daily. [address] aspirin 81 2021-0 Yes 81mg Take 81 mg U nivers mg EC 9-26 by mouth ity of tablet 14:02: daily. [address] aspirin 81 2021-0 Yes 81mg Take 81 mg U nivers mg EC 9-26 by mouth ity of tablet 14:02: daily. [address] aspirin 81 2021-0 Yes 81mg Take 81 mg U nivers mg EC 9-26 by mouth ity of tablet 14:02: daily. [address] aspirin 81 2021-0 Yes 81mg Take 81 mg U nivers mg EC 9-26 by mouth ity of tablet 14:02: daily. [address] Branch sevelamer 2021-0 Yes 800mg Take 800 Uni vers (RENVELA) 9-26 mg by ity of 800 mg 14:01: mouth 3 [place] tablet 56 (three) Medical times Branch daily with meals. sevelamer 2021-0 Yes 800mg Take 800 Uni vers (RENVELA) 9-26 mg by ity of 800 mg 14:01: mouth 3 [place] tablet 56 (three) Medical times Branch daily with meals. sevelamer 2021-0 Yes 800mg Take 800 Uni vers (RENVELA) 9-26 mg by ity of 800 mg 14:01: mouth 3 [place] tablet 56 (three) Medical times Branch daily with meals. sevelamer 2021-0 Yes 800mg Take 800 Uni vers (RENVELA) 9-26 mg by ity of 800 mg 14:01: mouth 3 [place] tablet 56 (three) Medical times Branch daily with meals. [...] 2 it y of tablet 09:13: (two) [place] [address] times Medical daily. Branch Insulin 2021-0 Yes 25U inject 25 Unive rs Glargine 1-13 Units ity of (BASAGLAR 09:13: under the [place] as KWIKPEN 17 skin. Medical U-100 Branch INSULIN) 100 unit/mL (3 mL) injection amLODIPine 2021-0 Yes 10mg Take 10 mg U nivers 10 mg 1-13 by mouth ity of tablet 09:13: daily. [address] aspirin 81 2021-0 Yes 81mg Take 81 mg U nivers mg EC 1-13 by mouth ity of tablet 09:13: daily. [address] sevelamer 2021-0 Yes 800mg Take 800 Uni vers (RENVELA) 1-13 mg by ity of 800 mg 09:13: mouth 3 [place] tablet 17 (three) Medical times [place] daily with meals. ALPRAZolam 2021-0 Yes .25mg Take 0.25 U nivers (XANAX) 1-13 mg by ity of 0.25 mg 09:13: mouth 2 [place] tablet 17 (two) Medical times Branch daily. Insulin 2021-0 Yes 20U inject 20 Unive rs Lispro, 1-13 Units ity of Human, 09:13: under the [place] (HUMALOG) 17 skin 2 Medical 100 unit/mL (two) Branch cartridge times daily. NIFEdipine 2021-0 Yes 90mg Take 90 mg U nivers CC 90 mg SR 1-13 by mouth 2 it y of tablet 09:13: (two) [address] Medical daily. Branch Insulin 2021-0 Yes 25U inject 25 Unive rs Glargine 1-13 Units ity of (BASAGLAR 09:13: under the [place] as KWIKPEN 17 skin. Medical U-100 Branch INSULIN) 100 unit/mL (3 mL) injection amLODIPine 2-0 Yes 10mg Take 10 mg U nivers 10 mg 1-13 by mouth ity of tablet 09:13: daily. [address] aspirin 81 2-0 Yes 81mg Take 81 mg U nivers mg EC 1-13 by mouth ity of tablet 09:13: daily. [address] sevelamer 2022-0 Yes 800mg Take 800 Uni vers (RENVELA) 1-13 mg by ity of 800 mg 09:13: mouth 3 [place] tablet 17 (three) Medical times Branch daily with meals. ALPRAZolam 2022-0 Yes .25mg Take 0.25 U nivers (XANAX) 1-13 mg by ity of 0.25 mg 09:13: mouth 2 [place] tablet 17 (two) Medical times Branch daily. Insulin 2021-0 Yes 20U inject 20 Unive rs Lispro, 1-13 Units ity of Human, 09:13: under the [place] (HUMALOG) 17 skin 2 Medical 100 unit/mL [...] by mouth ity of tablet 09:13: daily. [address] Branch aspirin 81 2-0 Yes 81mg Take 81 mg U nivers mg EC 1-13 by mouth ity of tablet 09:13: daily. [address] Branch sevelamer 2021-0 Yes 800mg Take 800 Uni vers (RENVELA) 1-13 mg by ity of 800 mg 09:13: mouth 3 [place] tablet 17 (three) Medical times Branch daily with meals. Insulin 202-0 Yes 20U inject 20 Unive rs Lispro, 1-13 Units ity of Human, 09:13: under the [place] (HUMALOG) 17 skin 2 Medical 100 unit/mL (two) Branch cartridge times daily. Insulin 2022-0 Yes 20U inject 20 Unive rs Lispro, 1-13 Units ity of Human, 09:13: under the [place] (HUMALOG) 17 skin 2 Medical 100 unit/mL (two) Branch cartridge times daily. Insulin 2022-0 Yes 20U inject 20 Unive rs Lispro, 1-13 Units ity of Human, 09:13: under the [place] (HUMALOG) 17 skin 2 Medical 100 unit/mL (two) Branch cartridge times daily. Insulin Yes 20U inject 20 Unive rs Lispro, 1-13 Units ity of Human, 09:13: under the [place] (HUMALOG) 17 skin 2 Medical 100 unit/mL (two) Branch cartridge times daily. sevelamer 202- No 2400mg Take 2,400 Univers 800 mg -13 01-13 mg by ity of tablet 09:13: 00:00 mouth 3 [place] 15 :00 (three) Medical times Branch daily with meals. sevelamer 2021- No 2400mg Take 2,400 Univers 800 mg -13 01-13 mg by ity of tablet 09:13: 00:00 mouth 3 [place] 15 :00 (three) Medical times Branch daily with meals. atorvastati 2018-03 Yes [id number] 40mg Take 1 Univers n 40 mg 1-19 tablet by ity of tablet 00:00: mouth at [place] [address] bedtime. Medical Branch atorvastati 2018-03 Yes [id number] 40mg Take 1 Univers n 40 mg 1-19 tablet by ity of tablet 00:00: mouth at [place] [address] bedtime. Medical Branch atorvastati 2018-03 Yes [id number] 40mg Take 1 Univers n 40 mg 1-19 tablet by ity of tablet 00:00: mouth at [place] [address] bedtime. Medical Branch atorvastati 2018-03 Yes [id number] 40mg Take 1 Univers n 40 mg 1-19 tablet by ity of tablet 00:00: mouth at [place] [address] bedtime. Medical Branch atorvastati 2018-03 Yes [id number] 40mg Take 1 Univers n 40 mg 1-19 tablet by ity of tablet 00:00: mouth at [place] [address] bedtime. Medical Branch atorvastati 2018-03 Yes [id number] 40mg Take 1 Univers n 40 mg 1-19 tablet by ity of tablet 00:00: mouth at [place] [address] bedtime. Medical Branch atorvastati 2018-03 Yes [id number] 40mg Take 1 Univers n 40 mg 1-19 tablet by ity of tablet 00:00: mouth at [place] [address] bedtime. Medical Branch tiZANidine Yes Univers 2 mg tablet 4-26 ity of 00:00: [place] 00 Medical Branch tiZANidine 2019-0 Yes Univers 2 mg tablet 4-26 ity of 00:00: [place] 00 Medical Branch tiZANidine 2019-0 Yes Univers 2 mg tablet 4-26 ity of 00:00: [place] 00 Medical Branch tiZANidine 2019-0 Yes Univers 2 mg tablet 4-26 ity of 00:00: [place] 00 Medical Branch tiZANidine 2019-0 Yes Univers 2 mg tablet 4-26 ity of 00:00: [place] 00 Medical Branch tiZANidine 2019-0 Yes Univers 2 mg tablet 4-26 ity of 00:00: [place] 00 Medical Branch tiZANidine 2019-0 Yes Univers 2 mg tablet 4-26 ity of 00:00: [place] 00 Medical Branch Immunizations Ordered Filled Immunization Date Status Comments [facility] e Immunization Name Name Influenza Virus 2021-12-03 Completed Universit y of Vaccine 00:00:00 [facility] Influenza Virus 2021-12-03 Completed Universit y of Vaccine 00:00:00 [facility] Influenza Virus 2021-12-03 Completed Universit y of Vaccine 00:00:00 [facility] Influenza Virus 2021-12-03 Completed Universit y of Vaccine 00:00:00 [facility] Influenza Virus 2020-01-16 Completed Universit y of Vaccine 00:00:00 [facility] Influenza Virus 2020-01-16 Completed Universit y of Vaccine 00:00:00 [facility] Influenza Virus 2020-01-16 Completed Universit y of Vaccine 00:00:00 [facility] Influenza Virus 2020-01-16 Completed Universit y of Vaccine 00:00:00 [facility] Influenza Virus 2020-01-16 Completed Universit y of Vaccine 00:00:00 [facility] Influenza Virus 2020-01-16 Completed Universit y of Vaccine 00:00:00 [facility] Influenza Virus 2020-01-16 Completed Universit y of Vaccine 00:00:00 [facility] Influenza Virus 2016-11-27 Completed Universit y of Vaccine 00:00:00 [facility] Influenza Virus 2016-11-27 Completed Universit y of Vaccine 00:00:00 [facility] Influenza Virus 2016-11-27 Completed Universit y of Vaccine 00:00:00 [facility] Influenza Virus 2016-11-27 Completed Universit y of Vaccine 00:00:00 [facility] Influenza Virus 2016-11-27 Completed Universit y of Vaccine 00:00:00 [facility] Influenza Virus 2016-11-27 Completed Universit y of Vaccine 00:00:00 [facility] Influenza Virus 2016-11-27 Completed Universit y of Vaccine 00:00:00 [facility] Pneumococcal 13 2015-05-12 Completed Universit y of Conjugate, PCV13 00:00:00 [place] Me dical (Prevnar 13) Branch Pneumococcal 13 2015-05-12 Completed Universit y of Conjugate, PCV13 00:00:00 [place] Me dical (Prevnar 13) Branch Pneumococcal 13 2015-05-12 Completed Universit y of Conjugate, PCV13 00:00:00 [place] Me dical (Prevnar 13) Branch Pneumococcal 13 2015-05-12 Completed Universit y of Conjugate, PCV13 00:00:00 [place] Me dical (Prevnar 13) Branch Pneumococcal 13 2015-05-12 Completed Universit y of Conjugate, PCV13 00:00:00 [place] Me dical (Prevnar 13) Branch Pneumococcal 13 2015-05-12 Completed Universit y of Conjugate, PCV13 00:00:00 [place] Me dical (Prevnar 13) Branch Pneumococcal 13 2015-05-12 Completed Universit y of Conjugate, PCV13 00:00:00 [facility] dical (Prevnar 13) Branch PPD (TB) 2015-04-03 Completed University of 00:00:00 [facility] PPD (TB) 2015-04-03 Completed University of 00:00:00 [facility] PPD (TB) 2015-04-03 Completed University of 00:00:00 [facility] PPD (TB) 2015-04-03 Completed University of 00:00:00 [facility] PPD (TB) 2015-04-03 Completed University of 00:00:00 [facility] PPD (TB) 2015-04-03 Completed University of 00:00:00 [facility] PPD (TB) 2015-04-03 Completed University of 00:00:00 [facility] Influenza Virus 2014-12-05 Completed Universit y of Vaccine 00:00:00 [facility] Influenza Virus 2014-12-05 Completed Universit y of Vaccine 00:00:00 [facility] Influenza Virus 2014-12-05 Completed Universit y of Vaccine 00:00:00 [facility] Influenza Virus 2014-12-05 Completed Universit y of Vaccine 00:00:00 [facility] Influenza Virus 2014-12-05 Completed Universit y of Vaccine 00:00:00 [facility] Influenza Virus 2014-12-05 Completed Universit y of Vaccine 00:00:00 [facility] Influenza Virus 2014-12-05 Completed Universit y of Vaccine 00:00:00 [facility] PPD (TB) 2014-04-13 Completed University of 00:00:00 [facility] PPD (TB) 2014-04-13 Completed University of 00:00:00 [facility] PPD (TB) 2014-04-13 Completed University of 00:00:00 [facility] PPD (TB) 2014-04-13 Completed University of 00:00:00 [facility] PPD (TB) 2014-04-13 Completed University of 00:00:00 [facility] PPD (TB) 2014-04-13 Completed University of 00:00:00 [facility] PPD (TB) 2014-04-13 Completed University of 00:00:00 [facility] Influenza Virus 2013-11-15 Completed Universit y of Vaccine 00:00:00 [facility] Influenza Virus 2013-11-15 Completed Universit y of Vaccine 00:00:00 [facility] Influenza Virus 2013-11-15 Completed Universit y of Vaccine 00:00:00 [facility] Influenza Virus 2013-11-15 Completed Universit y of Vaccine 00:00:00 [facility] Influenza Virus 2013-11-15 Completed Universit y of Vaccine 00:00:00 [facility] Influenza Virus 2013-11-15 Completed Universit y of Vaccine 00:00:00 [facility] Influenza Virus 2013-11-15 Completed Universit y of Vaccine 00:00:00 [facility] PPD (TB) 2013-09-08 Completed University of 00:00:00 [facility] PPD (TB) 2013-09-08 Completed University of 00:00:00 [facility] PPD (TB) 2013-09-08 Completed University of 00:00:00 [facility] PPD (TB) 2013-09-08 Completed University of 00:00:00 [facility] PPD (TB) 2013-09-08 Completed University of 00:00:00 [facility] PPD (TB) 2013-09-08 Completed University of 00:00:00 [facility] PPD (TB) 2013-09-08 Completed University of 00:00:00 [facility] Hep B, Adol or Pedi 2012-12-28 Completed Unive rsity of Dosage 00:00:00 [place] [facility] Branch Hep B, Adol or Pedi 2012-12-28 Completed Unive rsity of Dosage 00:00:00 [place] [facility] Hep B, Adol or Pedi 2012-12-28 Completed Unive rsity of Dosage 00:00:00 [place] [facility] Hep B, Adol or Pedi 2012-12-28 Completed Unive rsity of Dosage 00:00:00 [facility] Hep B, Adol or Pedi 2012-12-28 Completed Unive rsity of Dosage 00:00:00 [place] [facility] Hep B, Adol or Pedi 2012-12-28 Completed Unive rsity of Dosage 00:00:00 [place] [facility] Branch Hep B, Adol or Pedi 2012-12-28 Completed Unive rsity of Dosage 00:00:00 [facility] Influenza Virus 2012-11-20 Completed Universit y of Vaccine 00:00:00 [facility] Influenza Virus 2012-11-20 Completed Universit y of Vaccine 00:00:00 [facility] Influenza Virus 2012-11-20 Completed Universit y of Vaccine 00:00:00 [facility] Influenza Virus 2012-11-20 Completed Universit y of Vaccine 00:00:00 [facility] Influenza Virus 2012-11-20 Completed Universit y of Vaccine 00:00:00 [facility] Influenza Virus 2012-11-20 Completed Universit y of Vaccine 00:00:00 [facility] Influenza Virus 2012-11-20 Completed Universit y of Vaccine 00:00:00 [place] [facility] Hep B, Adol or Pedi 2012-08-26 Completed Unive rsity of Dosage 00:00:00 [facility] Hep B, Adol or Pedi 2012-08-26 Completed Unive rsity of Dosage 00:00:00 [facility] Hep B, Adol or Pedi 2012-08-26 Completed Unive rsity of Dosage 00:00:00 [facility] Hep B, Adol or Pedi 2012-08-26 Completed Unive rsity of Dosage 00:00:00 [place] [facility] Hep B, Adol or Pedi 2012-08-26 Completed Unive rsity of Dosage 00:00:00 [place] [facility] Hep B, Adol or Pedi 2012-08-26 Completed Unive rsity of Dosage 00:00:00 [facility] Hep B, Adol or Pedi 2012-08-26 Completed Unive rsity of Dosage 00:00:00 [facility] Hep B, Adol or Pedi 2012-07-27 Completed Unive rsity of Dosage 00:00:00 [facility] Hep B, Adol or Pedi 2012-07-27 Completed Unive rsity of Dosage 00:00:00 [facility] Hep B, Adol or Pedi 2012-07-27 Completed Unive rsity of Dosage 00:00:00 [facility] Hep B, Adol or Pedi 2012-07-27 Completed Unive rsity of Dosage 00:00:00 [facility] Hep B, Adol or Pedi 2012-07-27 Completed Unive rsity of Dosage 00:00:00 [facility] Hep B, Adol or Pedi 2012-07-27 Completed Unive rsity of Dosage 00:00:00 [facility] Hep B, Adol or Pedi 2012-07-27 Completed Unive rsity of Dosage 00:00:00 [facility] Influenza Virus 2012-07-08 Completed Universit y of Vaccine 00:00:00 [facility] Influenza Virus 2012-07-08 Completed Universit y of Vaccine 00:00:00 [facility] Influenza Virus 2012-07-08 Completed Universit y of Vaccine 00:00:00 [facility] Influenza Virus 2012-07-08 Completed Universit y of Vaccine 00:00:00 [facility] Influenza Virus 2012-07-08 Completed Universit y of Vaccine 00:00:00 [facility] Influenza Virus 2012-07-08 Completed Universit y of Vaccine 00:00:00 [facility] Influenza Virus 2012-07-08 Completed Universit y of Vaccine 00:00:00 [facility] Hep B, Adol or Pedi 2012-06-19 Completed Unive rsity of Dosage 00:00:00 [facility] Pneumococcal 13 2012-06-19 Completed Universit y of Conjugate, PCV13 00:00:00 [facility] dical (Prevnar 13) Branch Hep B, Adol or Pedi 2012-06-19 Completed Unive rsity of Dosage 00:00:00 [facility] Pneumococcal 13 2012-06-19 Completed Universit y of Conjugate, PCV13 00:00:00 [facility] dical (Prevnar 13) Branch Hep B, Adol or Pedi 2012-06-19 Completed Unive rsity of Dosage 00:00:00 [facility] Pneumococcal 13 2012-06-19 Completed Universit y of Conjugate, PCV13 00:00:00 [facility] dical (Prevnar 13) Branch Hep B, Adol or Pedi 2012-06-19 Completed Unive rsity of Dosage 00:00:00 [facility] Pneumococcal 13 2012-06-19 Completed Universit y of Conjugate, PCV13 00:00:00 [facility] dical (Prevnar 13) Branch Hep B, Adol or Pedi 2012-06-19 Completed Unive rsity of Dosage 00:00:00 [facility] Pneumococcal 13 2012-06-19 Completed Universit y of Conjugate, PCV13 00:00:00 [facility] dical (Prevnar 13) Branch Hep B, Adol or Pedi 2012-06-19 Completed Unive rsity of Dosage 00:00:00 [facility] Pneumococcal 13 2012-06-19 Completed Universit y of Conjugate, PCV13 00:00:00 [facility] dical (Prevnar 13) Branch Hep B, Adol or Pedi 2012-06-19 Completed Unive rsity of Dosage 00:00:00 [facility] Pneumococcal 13 2012-06-19 Completed Universit y of Conjugate, PCV13 00:00:00 [facility] dical (Prevnar 13) Branch PPD (TB) 2012-05-30 Completed University of 00:00:00 [facility] PPD (TB) 2012-05-30 Completed University of 00:00:00 [facility] PPD (TB) 2012-05-30 Completed University of 00:00:00 [facility] PPD (TB) 2012-05-30 Completed University of 00:00:00 [facility] PPD (TB) 2012-05-30 Completed University of 00:00:00 [facility] PPD (TB) 2012-05-30 Completed University of 00:00:00 [facility] PPD (TB) 2012-05-30 Completed University of 00:00:00 [facility] Vital Signs Vital Name Observation Time Observation Value Comments Source Systolic blood 2021-12-19 19:25:00 187 mm[Hg] Univer sity of pressure [facility] Diastolic blood 2021-12-19 19:25:00 93 mm[Hg] Unive rsity of pressure [facility] Heart rate 2021-12-19 19:25:00 77 /min [facility] [place] [facility] Respiratory rate 2021-12-19 19:21:00 19 /min [facility] [place] [facility] Body height 2021-12-19 19:21:00 167.6 cm [facility] [place] [facility] Body weight 2021-12-19 19:21:00 84.641 kg [facility] [place] [facility] BMI 2021-12-19 19:21:00 30.12 kg/m2 [facility] [place] [facility] Oxygen saturation in 2021-12-19 19:21:00 93 /min University of Arterial blood by [facility] Pulse oximetry Branch Systolic blood 2021-12-10 18:42:00 149 mm[Hg] Univer sity of pressure [facility] Diastolic blood 2021-12-10 18:42:00 81 mm[Hg] Unive rsity of pressure [facility] Heart rate 2021-12-10 18:42:00 81 /min [facility] [place] [facility] Oxygen saturation in 2021-12-10 18:42:00 97 /min University of Arterial blood by [facility] Pulse oximetry Branch Body temperature 2021-12-10 18:40:00 36.56 Radha [facility] [place] [facility] Respiratory rate 2021-12-10 18:40:00 18 /min [facility] [place] [facility] Body weight 2021-12-10 18:40:00 87.227 kg [facility] [place] [facility] BMI 2021-12-10 18:40:00 31.04 kg/m2 [facility] [place] [facility] Systolic blood 2021-03-29 15:21:00 141 mm[Hg] Univer sity of pressure [facility] [place] [facility] Diastolic blood 2021-03-29 15:21:00 74 mm[Hg] Unive rsity of pressure [facility] Heart rate 2021-03-29 15:21:00 72 /min [facility] [place] [facility] Respiratory rate 2021-03-29 15:17:00 22 /min [facility] [place] [facility] Body height 2021-03-29 15:17:00 167.6 cm [facility] [place] [facility] Body weight 2021-03-29 15:17:00 89.268 kg [facility] [place] [facility] BMI 2021-03-29 15:17:00 31.76 kg/m2 [facility] [place] [facility] Oxygen saturation in 2021-03-29 15:17:00 94 /min University Arterial blood by [facility] Pulse oximetry Branch Procedures Procedure Date / Time Performing Clinician Source Performed [facility] 2021-02-28 06:01:00 Doctor Unassigned, [facility] Encounters Start End Encounter Admission Attending Care Care Encounter Source Date/Time Date/Time Type Type Clinicians Facility Department ID 2018-06-22 Inpatient [facility] [id number] [facility] 07:53:49 2018-06-22 Outpatient [facility] [id number] [facility] 07:53:48 2022-03-19 2022-03-19 Outpatient R HO [facility] [id number] Univers 10:00:00 10:00:00 SENDIL [facility] 2022-03-02 2022-03-02 Outpatient R ELISE RG [facility] [id number] Univers 20:00:00 20:00:00 ELISE RG [facility] 2022-02-05 2022-02-05 Outpatient R LEANN [facility] [id number] Univers 10:00:00 10:00:00 [facility] 2022-02-04 2022-02-04 Outpatient R LEANN [facility] [id number] Univers 08:40:00 08:40:00 [facility] 2021-12-19 2021-12-19 [facility] [id number] Univers 14:00:00 14:20:00 Visit Elise GARDUNO 350.1.13.10 joyce [facility] 4.2.7.2.[phone] dical NAL 085 Branch [facility] 2021-12-19 2021-12-19 Outpatient R ELISE RG [facility] [id number] Univers 14:00:00 14:00:00 ELISE RG edison [facility] 2021-12-10 2021-12-10 Outpatient R HO [facility] [id number] Univers 13:30:00 14:14:02 SENDIL it [facility] 2021-12-10 2021-12-10 Office [facility] 1.2.840.114 [id number] Univers 13:30:00 14:14:02 Visit Sendil AlexMenaShamikaMena GARDUNO 350.1.13.10 ity of [place] [phone] [place] [address] [facility] 2021-03-29 2021-03-29 Outpatient [facility] [id number] Univers 09:00:00 09:42:55 SENDIL ity [facility] 2021-03-29 2021-03-29 Office [facility] 1.2.840.114 [id number] Univers 09:00:00 09:42:55 Visit Sendnh LovelyMena GARDUNO 350.1.13.10 ity of [place] [id number] [address] 2021-03-29 2021-03-29 Outpatient R [facility] [id number] Univers 09:00:00 09:42:55 SENDIL ity [facility] 2021-03-29 2021-03-29 Orders Doctor WHITLOCK 1.2.840.114 [id number] Univers 00:00:00 00:00:00 Only Unassigned, JACQUE 350.1.13.10 ity of [facility] 4.2.7.2.686 Paulie as [phone] [address] 2021-03-01 2021-03-01 Outpatient R [facility] [id number] Univers 13:00:00 13:00:00 SENDIL ity [facility] 2021-02-28 2021-02-28 Orders Doctor WHITLOCK 1.2.840.114 [id number] Univers 00:00:00 00:00:00 Only Unassigned, JACQUE 350.1.13.10 ity of [facility] 4.2.7.2.686 Paulie as [phone] [address] 2020-05-16 2020-05-16 Telephone [facility] 1.2.840.114 [id number] 00:00:00 00:00:00 Aguilar A MULTISPEC 350.1.13.10 IALTY 4.2.7.2.686 [place] [phone] [address] [place] [facility] 2020-05-16 2020-05-16 Telephone [facility] 1.2.840.114 [id number] 00:00:00 00:00:00 Aguilar A MULTISPEC 350.1.13.10 IALTY 4.2.7.2.686 [place] [phone] [place] [address] [facility] 2020-05-16 2020-05-16 Telephone [facility] 1.2.840.114 [id number] [facility] 00:00:00 00:00:00 Aguilar A MULTISPEC 350.1.13.10 ity of [place]AL[place] 4.2.7.2.686 [facility] s [place] [phone] [facility] AND [address] [facility] 2020-05-16 2020-05-16 Telephone [facility] 1.2.840.114 [id number] [facility] 00:00:00 00:00:00 Aguilar A MULTISPEC 350.1.13.10 ity of [place] 4.2.7.2.686 [facility] s [place] [phone] [facility] AND [address] [facility] 2020-05-15 2020-05-15 Telephone [facility] 1.2.840.114 [id number] 00:00:00 00:00:00 Izzy santana MULTISPEC 350.1.13.10 IALTY 4.2.7.2.686 CENTER [phone] [place] [address] [facility] 2020-05-15 2020-05-15 Abstract Gamilla-Cru [facility] 1.2.840.114 [id number] 00:00:00 00:00:00 Izzy santana MULTISPEC 350.1.13.10 IALTY 4.2.7.2.686 CENTER [id number] [place] [address] [facility] 2020-05-15 2020-05-15 Telephone [facility] 1.2.840.114 [id number] Univers 00:00:00 00:00:00 Izzy santana MULTISPEC 350.1.13.10 ity of IAL[place] 4.2.7.2.686 [facility] [place] [phone] [facility] AND [address] [facility] 2020-05-15 2020-05-15 Abstract [facility] 1.2.840.114 [id number] Univers 00:00:00 00:00:00 Izzy santana MULTISPEC 350.1.13.10 ity of [place] 4.2.7.2.686 [facility] C[facility] [phone] [address] [facility] 2020-05-12 2020-05-12 Abstract [facility] [id number] 00:00:00 00:00:00 Aguilar A MULTISPEC 350.1.13.10 IALTY 4.2.7.2.686 [place] [id number] [place] [address] [facility] 2020-05-12 2020-05-12 Committee [facility] 1.2.840.114 [id number] 00:00:00 00:00:00 Review Aguilar A MULTISPEC 350.1.13.10 IALTY 4.2.7.2.686 [place] [phone] [place] [address] [facility] 2020-05-12 2020-05-12 Committee [facility] 1.2.840.114 [id number] Univers 00:00:00 00:00:00 Review Aguilar A MULTISPEC 350.1.13.10 ity of [place] 4.2.7.2.686 [facility] CENTER [phone] [facility] AND [address] [facility] 2020-05-12 2020-05-12 Abstract [facility] 1.2.909.043 [id number] Univers 00:00:00 00:00:00 Aguilar A MULTISPEC 350.1.13.10 ity of [place] 4.2.7.2.686 [facility] C[facility] [phone] [address] [facility] 2020-04-18 2020-04-18 Orders Doctor KAMLESH 1.2.840.114 [id number] 00:00:00 00:00:00 Only Unassigned, JACQUE 350.1.13.10 [facility] 4.2.7.2.686 [id number] 009 2020-04-18 2020-04-18 Telephone [facility] 1.2.840.114 [id number] Univers 00:00:00 00:00:00 Aguilar A MULTISPEC 350.1.13.10 [place] [phone] [address] [facility] 2020-04-18 2020-04-18 Committee [facility] 1.2.840.114 [id number] Univers 00:00:00 00:00:00 Review Aguilar A MULTISPEC 350.1.13.10 [place] [phone] [address] [facility] 2020-04-18 2020-04-18 Orders Doctor KAMLESH 1.2.840.114 [id number] Univers 00:00:00 00:00:00 Only Unassigned, JACQUE 350.1.13.10 ity of [place] [facility] 4.2.7.2.686 Paulie as [phone] [address] 2020-04-17 2020-04-17 Abstract [facility] 1.2.290.404 [id number] Univers 00:00:00 00:00:00 Aguilar A MULTISPEC 350.1.13.10 [place] [id number] [address] [facility] 2020-04-17 2020-04-17 Abstract [facility] 1.2.581.903 [id number] Univers 00:00:00 00:00:00 Aguilar A MULTISPEC 350.1.13.10 [place] [phone] [address] [facility] 2020-03-28 2020-03-28 [facility]phone [facility] 1.2.840.114 [id number] Univers 00:00:00 00:00:00 Lauren Bobo MULTISPEC 350.1.13.10 [place]2.[place] [id number] [address] [facility] 2020-03-14 2020-03-14 [facility] 1.2.840.114 [id number] Univers 09:14:33 23:59:00 Encounter Sendil Ene Garduno 350.1.13.10 ity of [place] 4.2.7.2.686 [facility] [place] [phone] [address] 2020-03-14 2020-03-14 [facility] 1.2.840.114 [id number] Univers 09:14:13 23:59:00 Encounter Sendil Ene Garduno 350.1.13.10 ity of [place] 4.2.7.2.686 [facility] [place] [phone] [address] 2020-03-14 2020-03-14 [facility] 1.2.840.114 [id number] Univers 09:13:41 09:13:41 Encounter Sendalis Garduno 350.1.13.10 ity of [place] 4.2.7.2.686 [facility] [place] [phone] [address] 2020-03-14 2020-03-14 Outpatient R [facility] [id number] Univers 09:12:26 09:12:26 SENDIL ity of [facility] 2020-03-14 2020-03-14 [facility] 1.2.840.114 [id number] Univers 09:12:26 09:12:26 Encounter Sendalis Garduno 350.1.13.10 ity of [place] 4.2.7.2.686 [facility] [place] [phone] [address] 2020-02-28 2020-02-28 [place] [facility] 1.2.840.114 [id number] 12:46:09 13:47:51 Visit Sendalis Garduno 350.1.13.10 [place] 4.2.7.2.686 Professio [id number] nal [address] [place] [address] 2020-02-28 2020-02-28 Office [facility] 1.2.840.114 [id number] Univers 12:46:09 13:47:51 Visit Sendalis Garduno 350.1.13.10 [place] [facility] [phone] Ct dical nal [address] [place] [address] 2020-02-28 2020-02-28 [facility] [id number] Univers 13:00:00 13:00:00 SENDIL ity [facility] 2020-02-08 2020-02-08 [facility] [id number] Univers 08:00:00 08:00:00 SENDIL ity [facility] 2020-01-14 2020-01-14 [facility] [id number] Univers 09:00:00 09:00:00 SENDIL ity [facility] 2019-12-30 2019-12-30 [facility] 1.2.840.114 [id number] Univers 08:00:00 23:59:00 Encounter Izzy santana 350.1.13.10 [place]2.[place] [id number] [address] 2019-12-30 2019-12-30 Laboratory 1, Adc Cardio Fac Room [facility] 1.2.840.114 [id number] Univers 08:46:43 09:34:19 Only Pc, Adc Echo Room 1 - Cherie 350.1.1 3.10 ity of [place] 4.2.7.2.686 [place] Professio [phone] Ct dical nal [address] [place] [address] 2019-12-30 2019-12-30 Outpatient R [facility] [id number] Univers 09:00:00 09:00:00 ity of [facility] 2019-11-16 2019-11-16 Access Director Vtc-Lab [facility] 1.2.840.114 [id number] Univers 12:37:53 12:52:53 Visit Izzy Mcelroy MULTISPEC 350.1 .13.10 it[place] of [place]2.[place] [phone] [facility] [address] [facility] 2019-11-16 2019-11-16 Office Izzy Mcelroy [facility] 1.2 .840.114 [id number] Univers 10:48:20 11:08:20 Visit Lauren Zelaya MULTISPEC 350.1.13 .10 it[place]2.[place] [phone] [facility] [address] [facility] 2019-11-16 2019-11-16 Outpatient R [facility] [id number] Univers 11:00:00 11:00:00 AGUILAR ity o f [facility] 2019-11-16 2019-11-16 Orders Doctor KAMLESH 1.2.840.114 [id number] Univers 00:00:00 00:00:00 Only Unassigned, JACQUE 350.1.13.10 ity of [place] [facility] 4.2.7.2.686 Paulie as [phone] [place] [address] Branch 2019-11-15 2019-11-15 Abstract [facility] 1.2.181.027 [id number] Univers 00:00:00 00:00:00 Lauren Bobo MULTISPEC 350.1.13.10 it[place] [phone] [facility] [address] [facility] 2019-08-20 2019-08-20 Telephone [facility] 1.2.840.114 [id number] Univers 00:00:00 00:00:00 Aguilar A MULTISPEC 350.1.13.10 [place]2.[place] [phone] [facility] [address] [place] [address] DIABETES CLINIC 2019-06-01 2019-06-01 Letter [facility] 1.2.840.114 [id number] Univers 00:00:00 00:00:00 (Out) Aguilar A MULTISPEC 350.1.13.10 [place]2.[place] [id number] [address] [facility] 2018-11-10 2018-11-10 Hospital [facility] 1.2.248.733 [id number] Univers 09:30:00 23:59:00 Encounter Aguilar A [place] 350.1.13.10 ity of [place] 4.2.7.2.[place] [id number] [facility] [address] [place] 2018-11-10 2018-11-10 Orders Doctor KAMLESH 1.2.840.114 [id number] Univers 00:00:00 00:00:00 Only Unassigned, JACQUE 350.1.13.10 ity of [facility] 4.2.7.2.686 Paulie as [phone] [facility] 009 Branch 2018-11-03 2018-11-03 Telephone [facility] 1.2.840.114 [id number] Univers 00:00:00 00:00:00 Aguilar A Health 350.1.13.10 [place].2.[place] [employer] [phone] Ct dical [address] 2018-11-02 2018-11-02 Committee [facility] 1.2.840.114 [id number] Univers 00:00:00 00:00:00 Review Lauren A MULTISPEC 350.1.13.10 it[place]2.[place] [phone] [address] [facility] 2018-11-02 2018-11-02 Abstract [facility] 1.2.663.309 [id number] Univers 00:00:00 00:00:00 Aguilar A Health 350.1.13.10 [place]7.2.[place] [employer] [phone] Ct dical t Center [address] 2018-11-02 2018-11-02 Abstract [facility] 1.2.537.338 [id number] Univers 00:00:00 00:00:00 Aguilar A Health 350.1.13.10 [place].2.[place] [employer] [phone] Ct dicok t Center [address] 2018-11-02 2018-11-02 Case [facility] 1.2.840.114 [id number] Univers 00:00:00 00:00:00 Management Aguilar A Health 350.1.13.10 [place]7.2.[place] [employer] [phone] Ct dicok t Center [address] Branch 2018-10-28 2018-10-28 Telephone [facility] 1.2.840.114 [id number] Univers 00:00:00 00:00:00 Aguilar A MULTISPEC 350.1.13.10 ity of [place]2.7.2.[place] [id number] Loe paniagua AND DIAZ [address] [facility] 2018-10-28 2018-10-28 Telephone [facility] 1.2.840.114 [id number] Univers 00:00:00 00:00:00 Aguilar A Health 350.1.13.10 [place]7.2.[place] [employer] [phone] Ct dical t Center [address] Branch Results This patient has no known results.
[2022-03-18 07:37] LABS: Absolute Lymphocytes (CBC) 0.9 K/uL (0.7-4.9); Hematocrit 30.8 % (39.6-49.0); Lymphocytes % 14.7 % (15.3-44.8); MCV 88.5 fL (80-100); MPV 7.9 fL (7.6-11.3); RBC Red Blood Cell Count 3.48 M/uL (4.33-5.43)
[2022-03-18 07:45] LABS: Protime INR 1.15
[2022-03-18 07:49] LABS: SARS-CoV-2 Antigen Rapid Res Negative (Negative)
[2022-03-18 07:57] LABS: Albumin 3.1 g/dL (3.4-5.0); Bilirubin Direct 0.4 mg/dL (0-0.2); Bilirubin Total 0.8 mg/dL (0.2-1.0); Magnesium 2.1 mg/dL (1.6-2.4); Potassium 3.6 mmol/L (3.5-5.1); Protein, Total 7.7 g/dL (6.4-8.2); Troponin High Sensitivity 198.4 pg/mL (<58.9)
[2022-03-18 08:35] LABS: Platelet Estimate DECR; White Blood Cell Scan OK (OK)
[2022-03-18 08:36] LABS: Platelets, Giant 1+
[2022-03-18 08:39] LABS: Blood Morphology Comment NOT SEEN (NOT SEEN)
[2022-03-18] MEDS ORDERED: ASPIRIN 81 MG CHEWABLE TABLET ONE (08:51)
--- NOTE | 2022-03-18 09:47 | EDPHYS ---
Physician Documentation [facility] Name: Chase Chacon Jr Age: 46 yrs Sex: Male : 1975 Arrival Date: 03/18/2022 Time: 06:38 Bed 6 Private MD: ED Physician Lexi Azul HPI: 03/18 07:40 This 46 yrs old Male presents to ER via EMS with complaints of near syncope. sd 07:40 46-year-old male with a history of end-stage renal disease on dialysis Friday presents via EMS with chief complaint of near syncopal episode. He reports he was at dialysis and on there for approximately 30 minutes and felt like his blood sugar was dropping. He reports he told the staff this and asked him if he wanted to put his feet up and that is the last thing that he can fully recall. EMS reports that the patient became somewhat combative and pulled himself off of dialysis. He arrives with Coban in place over his AV fistula with the catheter still in place and accessed. No active bleeding noted. EMS report was not received by myself and the day shift nurse did not receive this report either. shift mgr nurse did not report what the patient's BGL or BP was with EMS to her so this is unknown. Pt reports it felt like it has in the past when his BP or BGL dropped. He feels much improved at this time. Denies any associated CP, SOB, fever or recent illness.. Historical: - Allergies: 07:16 No Known Allergies; ha1 - Home Meds: 07:16 alprazolam 1 mg Oral tab 1 tab daily [Active]; hydralazine 10 mg Oral tab 1 tab as ha1 needed [Active]; tizanidine 4 mg Oral tab 1 tab nightly [Active]; - PMHx: 07:16 Cataract; diabetes mellitus; hemodialysis; Hypertensive disorder; kidney failure; ha1 - PSHx: 07:16 Left arm dialysis fistula; ha1 - Immunization history:: Adult Immunizations unknown. - Social history:: Smoking status: unknown. ROS: 07:40 Constitutional: Negative for fever, chills, and weight loss, Eyes: Negative for injury, sd2 pain, redness, and discharge. 07:40 Respiratory: Negative for shortness of breath, cough, wheezing. Abdomen/GI: Negative for abdominal pain, nausea, vomiting, diarrhea. MS/Extremity: Negative for injury and deformity, Skin: Negative for injury, rash, and discoloration, Neuro: Negative for headache, numbness and tingling. 07:40 Cardiovascular: Positive for near syncope, Negative for chest pain, edema, orthopnea. Exam: 07:40 Constitutional: This is a well developed, well nourished patient who is awake, alert, sd2 and in no acute distress. Head/Face: Normocephalic, atraumatic. Eyes: EOMI, normal conjunctiva bilaterally Chest/axilla: Normal chest wall appearance and motion. Nontender with no deformity. Cardiovascular: Regular rate and rhythm with a normal S1 and S2. No gallops, murmurs, or rubs. 2+ distal pulses. Respiratory: Lungs have equal breath sounds bilaterally, clear to auscultation and percussion. No rales, rhonchi or wheezes noted. No increased work of breathing, no retractions or nasal flaring. Abdomen/GI: Soft, non-tender, with normal bowel sounds. No guarding or rebound. No evidence of tenderness throughout. Skin: Warm, dry with normal turgor. Normal color with no rashes, no lesions, and no evidence of cellulitis. MS/ Extremity: Pulses equal, no cyanosis. Neurovascular intact. Full, normal range of motion. Ambulatory without difficulty. AV fistula to LUE with catheter in place and Coban surrounding. No active bleeding. Psych: Awake, alert, with orientation to person, place and time. Behavior, mood, and affect are within normal limits. 07:40 ECG was reviewed by the Attending Physician. NSR, rate 64, no STEMI criteria Vital Signs: 07:05 BP 173 / 93; Pulse 67; Resp 20; Temp 97.9; Pulse Ox 97% ; Weight 80 kg; Height 5 ft. 6 ha1 in. (167.64 cm); 07:49 BP 143 / 82 Supine; Pulse 65; Resp 18; Pulse Ox 96% on R/A; rs5 07:49 BP 162 / 92 Sitting; Pulse 63; Resp 19; Pulse Ox 99% on R/A; rs5 07:49 BP 151 / 84 Standing; Pulse 66; Resp 22; Pulse Ox 99% on R/A; rs5 08:30 BP 150 / 85; Pulse 60; Resp 17; Pulse Ox 97% on R/A; ll1 09:27 BP 160 / 90; Pulse 60; Resp 16; Pulse Ox 96% on R/A; ll1 11:30 BP 189 / 89; Pulse 66; Resp 17; Pulse Ox 96% ; ll1 13:07 BP 190 / 102; Pulse 70; Resp 17; Pulse Ox 95% on R/A; ll1 07:05 Body Mass Index 28.47 (80.00 kg, 167.64 cm) ha1 MDM: 06:44 Patient medically screened. [facility] 07:40 Differential Diagnosis Differential diagnosis includes but is not limited to: sd2 Vasovagal, cardiogenic, arrhythmia, anemia, electrolyte abnormality, ACS, orthostasis, dehydration among others. Data reviewed: vital signs, nurses notes. 09:45 Data reviewed: lab test result(s), EKG, radiologic studies. Counseling: I had a sd2 detailed discussion with the patient and/or guardian regarding: the historical points, exam findings, and any diagnostic results supporting the discharge/admit diagnosis, lab results, radiology results, the need for further work-up and treatment in the hospital. Medical screen evaluation completed. EMTALA emergency medical condition absent. ED course: Labs and imaging reviewed. Trop elevated. ASA given. Possibly due to demand with fluid overload and background of ESRD on dialysis. No hypoxia, respiratory distress or EKG changes. Due to episode today, will admit for observation for further trend of troponins and syncopal workup. Orthostatics negative. . 03/18 06:44 Order name: Basic Metabolic Panel; Complete Time: 08:26 [facility] 03/18 06:44 Order name: CBC with Diff; Complete Time: 08:40 [facility] 03/18 06:44 Order name: LFT's; Complete Time: 08:26 ralph 03/18 06:44 Order name: Magnesium; Complete Time: 08:26 ralph 03/18 06:44 Order name: NT PRO-BNP; Complete Time: 08:26 ralph 03/18 06:44 Order name: PT-INR; Complete Time: 08:26 ralph 03/18 06:44 Order name: Troponin HS; Complete Time: 08:26 ralph 03/18 06:44 Order name: XRAY Chest (1 view) [facility] 03/18 06:44 Order name: EKG; Complete Time: 06:45 [facility] 03/18 06:44 Order name: Lipase; Complete Time: 08:26 [facility] 03/18 06:44 Order name: SARS RAPID; Complete Time: 08:26 [facility] 03/18 07:46 Order name: CBC Smear Scan; Complete Time: 08:40 EDMS 03/18 10:53 Order name: Basic Metabolic Panel EDMS 03/18 06:44 Order name: Cardiac monitoring; Complete Time: 07:15 [facility] 03/18 06:44 Order name: EKG - Nurse/Tech; Complete Time: 07:15 [facility] 03/18 06:44 Order name: IV Saline Lock; Complete Time: 07:32 [facility] 03/18 06:44 Order name: Labs collected and sent; Complete Time: 07:32 [facility] 03/18 06:44 Order name: O2 Per Protocol; Complete Time: 07:15 [facility] 03/18 06:44 Order name: O2 Sat Monitoring; Complete Time: 07:15 [facility] 03/18 07:31 Order name: Orthostatics; Complete Time: 07:49 sd 03/18 12:13 Order name: CONS Physician Consult EDMS Administered Medications: 08:52 Drug: Aspirin Chewable Tablet 324 mg Route: PO; ll1 10:54 Follow up: Response: No adverse reaction ll1 Disposition Summary: 03/18/22 09:47 Hospitalization Ordered Hospitalization Status: Observation sd2 Provider: Dennys Monzon sd2 Condition: Stable sd2 Problem: new sd2 Symptoms: have improved sd2 Bed/Room Type: Gantt sd2 Location: Telemetry/MedSurg (observation)(03/18/22 13:01) dw Room Assignment: 407(03/18/22 13:01) dw Diagnosis - Syncope Near sd2 - Elevated troponin sd2 Forms: - Medication Reconciliation Form sd2 - SBAR form sd2 Signatures: Dispatcher [employer] EDMS Ermelinda Castro RN RN dw Anderson, Corey, MD MD cha Lewis, Lynsay RN RN [id number] Lexi Azul MD MD sd2 Jacquelyn Miller RN RN Sheron Burns RN RN ll4 Corrections: (The following items were deleted from the chart) 12:01 09:47 Telemetry/MedSurg (observation) sd2 ll4 12:01 09:47 sd2 ll4 13:01 12:01 [facility] ER HOLD ll4 dw 13:01 12:01 ERHOLD- ll4 dw
--- NOTE | 2022-03-18 09:47 | ER ---
Nurse's Notes [facility] Name: Chase Chacon Jr Age: 46 yrs Sex: Male : 1975 Arrival Date: 03/18/2022 Time: 06:38 Bed 6 Private MD: Diagnosis: Syncope Near;Elevated troponin Presentation: 03/18 07:05 Chief complaint: EMS states: 46 year old male was at dialysis and had an episode of ha1 near syncope. he became combative and removed his dialysis shunt. bleeding was stopped and at this moment it is wrap with Coban. Coronavirus screen:. Ebola Screen: No symptoms or risks identified at this time. Initial Sepsis Screen: Does the patient meet any 2 criteria? No. Patient's initial sepsis screen is negative. Does the patient have a suspected source of infection? No. Patient's initial sepsis screen is negative. Risk Assessment: Do you want to hurt yourself or someone else? Patient reports no desire to harm self or others. Onset of symptoms was March 18, 2022. 07:05 Method Of Arrival: EMS: [facility] ha1 07:05 Acuity: LEON 3 ha1 Triage Assessment: 06:38 General: Appears comfortable, Behavior is cooperative. Pain: Denies pain. EENT: No ha1 deficits noted. No signs and/or symptoms were reported regarding the EENT system. Neuro: Level of Consciousness is awake, alert, obeys commands, Oriented to person, place, time, situation. Cardiovascular: Denies chest pain, Heart tones S1 S2 present Patient's skin is warm and dry. Respiratory: Airway is patent Trachea midline Respiratory effort is even, unlabored, Respiratory pattern is regular, symmetrical, Breath sounds are clear bilaterally. GI: No signs and/or symptoms were reported involving the gastrointestinal system. Abdomen is flat, non-distended. : No signs and/or symptoms were reported regarding the genitourinary system. Derm: Skin is normal. Musculoskeletal: Circulation, motion, and sensation intact. Range of motion: intact in all extremities. Injury Description: pt. removed dialysis shunt from left arm. bleeding was stopped by EMS and wrapped with Coban. Historical: - Allergies: 07:16 No Known Allergies; ha1 - Home Meds: 07:16 alprazolam 1 mg Oral tab 1 tab daily [Active]; hydralazine 10 mg Oral tab 1 tab as ha1 needed [Active]; tizanidine 4 mg Oral tab 1 tab nightly [Active]; - PMHx: 07:16 Cataract; diabetes mellitus; hemodialysis; Hypertensive disorder; kidney failure; ha1 - PSHx: 07:16 Left arm dialysis fistula; ha1 - Immunization history:: Adult Immunizations unknown. - Social history:: Smoking status: unknown. Screenin:24 Abuse screen: Denies threats or abuse. Denies injuries from another. Nutritional ha1 screening: No deficits noted. Tuberculosis screening: No symptoms or risk factors identified. 07:30 [facility] ED Fall Risk Assessment (Adult) Confusion or Disorientation Yes (5 pts) ll1 Mobility Assist Device Used Yes (1 pt) Score/Fall Risk Level 3 or more points = High Risk Oriented to surroundings, Maintained a safe environment, Educated pt \T\ family on fall prevention, incl call for assistance when getting out of bed, Hourly rounding (assess needs \T\ fall precautionary measures) done. Assessment: 06:38 General: see triage assessment . ha1 07:25 Reassessment: No changes from previously documented assessment. Patient and/or family ll1 updated on plan of care and expected duration. Pain level reassessed. Patient is alert, oriented x 3, equal unlabored respirations, skin warm/dry/pink. 08:50 Reassessment: No changes from previously documented assessment. Patient and/or family ll1 updated on plan of care and expected duration. Pain level reassessed. Patient is alert, oriented x 3, equal unlabored respirations, skin warm/dry/pink. 09:30 Reassessment: No changes from previously documented assessment. Patient and/or family ll1 updated on plan of care and expected duration. Pain level reassessed. Patient is alert, oriented x 3, equal unlabored respirations, skin warm/dry/pink. 10:30 Reassessment: No changes from previously documented assessment. Patient and/or family ll1 updated on plan of care and expected duration. Pain level reassessed. Patient is alert, oriented x 3, equal unlabored respirations, skin warm/dry/pink. 11:30 Reassessment: No changes from previously documented assessment. Patient and/or family ll1 updated on plan of care and expected duration. Pain level reassessed. Patient is alert, oriented x 3, equal unlabored respirations, skin warm/dry/pink. 12:30 Reassessment: No changes from previously documented assessment. Patient and/or family ll1 updated on plan of care and expected duration. Pain level reassessed. Patient is alert, oriented x 3, equal unlabored respirations, skin warm/dry/pink. 13:16 Reassessment: No changes from previously documented assessment. Patient and/or family ll1 updated on plan of care and expected duration. Pain level reassessed. 13:40 Reassessment: No changes from previously documented assessment. Patient and/or family ll1 updated on plan of care and expected duration. Pain level reassessed. Patient is alert, oriented x 3, equal unlabored respirations, skin warm/dry/pink. Vital Signs: 07:05 BP 173 / 93; Pulse 67; Resp 20; Temp 97.9; Pulse Ox 97% ; Weight 80 kg; Height 5 ft. 6 ha1 in. (167.64 cm); 07:49 BP 143 / 82 Supine; Pulse 65; Resp 18; Pulse Ox 96% on R/A; rs5 07:49 BP 162 / 92 Sitting; Pulse 63; Resp 19; Pulse Ox 99% on R/A; rs5 07:49 BP 151 / 84 Standing; Pulse 66; Resp 22; Pulse Ox 99% on R/A; rs5 08:30 BP 150 / 85; Pulse 60; Resp 17; Pulse Ox 97% on R/A; ll1 09:27 BP 160 / 90; Pulse 60; Resp 16; Pulse Ox 96% on R/A; ll1 11:30 BP 189 / 89; Pulse 66; Resp 17; Pulse Ox 96% ; ll1 13:07 BP 190 / 102; Pulse 70; Resp 17; Pulse Ox 95% on R/A; ll1 07:05 Body Mass Index 28.47 (80.00 kg, 167.64 cm) ha1 ED Course: 06:38 Patient arrived in ED. mw2 06:38 Arm band placed on right wrist. ha1 06:38 Patient has correct armband on for positive identification. Placed in gown. Bed in low ha1 position. Call light in reach. Side rails up X 1. 06:42 Sunny Lake MD is Attending Physician. ralph 06:44 Sunny Lake MD is Attending Physician. ralph 07:02 XRAY Chest (1 view) In Process Unspecified. EDMS 07:04 Jacquelyn Miller, RN is Primary Nurse. ha1 07:06 Lexi Azul MD is Attending Physician. sd2 07:15 Triage completed. ha1 07:15 Missed attempt(s): 22 gauge in right forearm. Bleeding controlled, band aid applied, ll1 catheter tip intact. 07:20 Inserted saline lock: 22 gauge in right hand, using aseptic technique. Blood collected. ll1 07:33 SARS RAPID Sent. sp 09:46 Lexi Azul MD is Hospitalizing Provider. sd2 09:46 Dennys Monzon MD is Hospitalizing Provider. sd2 13:08 No provider procedures requiring assistance completed. Patient admitted, IV remains in ll1 place. Administered Medications: 08:52 Drug: Aspirin Chewable Tablet 324 mg Route: PO; ll1 10:54 Follow up: Response: No adverse reaction ll1 Medication: 13:08 VIS not applicable for this client. ll1 Outcome: 09:47 Decision to Hospitalize by Provider. sd2 13:08 Admitted to Med/surg accompanied by tech, via wheelchair, room 407, with chart, Report ll1 called to JENNIE Garcia On 4th 13:08 Condition: stable 13:08 Instructed on the need for admit. 14:04 Patient left the ED. ll1 Signatures: Dispatcher [employer] EDNJ Sunny Lake MD MD cha Pinkerton, Shawna sp Gatti, MyKena mw2 Jacquelyn Milton RN RN 1 Lexi Azul MD MD sd2 Ayala, Heidy, JENNIE RN 1 Nicko Hirsch rs5 Corrections: (The following items were deleted from the chart) 13:16 13:08 Admitted to Med/surg accompanied by tech, via wheelchair, room 407, with chart, ll1 ll1
[2022-03-18] MEDS ORDERED: NA CHLORIDE 0.9% 1,000 ML IV PRN (10:48)
[2022-03-18] MEDS ORDERED: MANNITOL 25% 12.5 GM/50 ML VIAL IV PRN (10:48)
--- NOTE | 2022-03-18 10:57 | P.CNS ---
Date of Consult: 03/18/22 Reason for Consult: ESRD Requesting Physician: Dennys Monzon Chief Complaint: Syncope History of Present Illness: 46 yo HM CKD, DM presented to the ER from dialysis for a severe, persistent syncopal episode 8min after starting dialysis. He is not sure what happened but reports recent episodes of dizziness. 07:40 This 46 yrs old Male presents to ER via EMS with complaints of near syncope. 07:40 46-year-old male with a history of end-stage renal disease on dialysis Friday presents via EMS with chief complaint of near syncopal episode. He reports he was at dialysis and on there for approximately 30 minutes and felt like his blood sugar was dropping. He reports he told the staff this and asked him if he wanted to put his feet up and that is the last thing that he can fully recall. EMS reports that the patient became somewhat combative and pulled himself off of dialysis. He arrives with Coban in place over his AV fistula with the catheter still in place and accessed. No active bleeding noted. EMS report was not received by myself and the day shift nurse did not receive this report either. rn shift mgr nurse did not report what the patient's BGL or BP was with EMS to her so this is unknown. Pt reports it felt like it has in the past when his BP or BGL dropped. He feels much improved at this time. Denies any associated CP, SOB, fever or recent illness. Allergies No Known Allergies Allergy (Verified 12/18/21 10:28) Home medications list reviewed: Yes Home Medications: ALPRAZolam [Alprazolam] 1 mg PO DAILYPRN PRN 09/29/19 Insulin Aspart [Novolog Penfill] 20 unit SQ TIDWM 09/29/19 Sevelamer Carbonate [Renvela*] 3 tab PO TIDWM 09/29/19 Nifedipine [Nifedipine ER] 90 mg PO DAILY 01/15/21 Ropinirole HCl 4 mg PO BEDTIME 01/15/21 Tizanidine HCl [Zanaflex] 4 mg PO BEDTIME 01/15/21 Aspirin [Aspirin EC 81 MG] 81 mg PO DAILY 12/18/21 Dicyclomine [Bentyl] 20 mg PO QID 12/18/21 Insulin Glargine,Hum.rec.anlog [Basaglar Kwikpen U-100] 20 unit SQ BEDTIME 12/18/21 - Past Medical/Surgical History Diabetic: Yes -: Diabetes mellitus type 2, insulin dependent -: Hypertension -: GERD -: Diabetic gastroparesis -: End stage renal disease on HD/ Dr. Mccoy -: Cataract surgery -: Laser for Retinal Detachment -: HD fistula surgery Psychosocial/ Personal History: Patient is . He has no children. - Family History Father Medical History: Diabetes, Kidney disease - Social History Smoking Status: Unknown if ever smoked Alcohol use: Yes CD- Drugs: No Caffeine use: No Review of Systems 10-point ROS is otherwise unremarkable General: Weakness, Malaise Physical Examination General: Alert, Oriented x3, Cooperative HEENT: Atraumatic Neck: Supple Respiratory: Clear to auscultation bilaterally Cardiovascular: Regular rate/rhythm, Edema Gastrointestinal: Soft and benign, Non-distended Musculoskeletal: No clubbing, No contractures Integumentary: No rashes, No cyanosis Neurological: Normal speech Laboratory Data (last 24 hrs) 03/18/22 07:20: PT 12.6 H, INR 1.15 03/18/22 07:20: WBC 6.20, Hgb 10.2 L, Hct 30.8 L, Plt Count 85 L 03/18/22 07:20: Sodium 138, Potassium 3.6, BUN 72 H, Creatinine 9.64 H*, Glucose 90, Magnesium 2.1, Total Bilirubin 0.8, AST 15, ALT 19, Alkaline Phosphatase 132 H, Lipase 502 H Conclusions/Impression: ESRD on HD -Acute HD today HTN with CKD/ CHF -Restart Nifedipine and Losartan Diastolic CHF, chronic -HD with UF today -Low sodium diet DM II with CKD & Polyneuropathy -RISS Anemia in CKD -Retacrit PRN CKD MBD -Start Ergo -Start Renvela Syncopal episode of unclear etiology -Telemetry -Serial troponins Case reviewed with hospitalist team Thank you kindly for the consultation
[2022-03-18] MEDS ORDERED: ALBUMIN HUMAN 25% 50 ML IV SCH (11:00)
[2022-03-18] MEDS ORDERED: ALPRAZOLAM 1 MG TABLET PO PRN (12:12)
[2022-03-18] MEDS ORDERED: HYDRALAZINE HCL 10 MG TABLET PO PRN (12:12)
[2022-03-18] MEDS ORDERED: HYDROCODONE/APAP 5/325 MG TAB PO PRN (12:15)
[2022-03-18] MEDS ORDERED: ACETAMINOPHEN 325 MG TABLET PO PRN (12:15)
[2022-03-18] MEDS ORDERED: ONDANSETRON 4 MG/2 ML VIAL IV PRN (12:24)
--- NOTE | 2022-03-18 12:39 | P.HP ---
Certification for Inpatient Patient admitted to: Observation With expected LOS: <2 Midnights Patient will require the following post-hospital care: None Practitioner: I am a practitioner with admitting privileges, knowledge of patient current condition, hospital course, and medical plan of care. Services: Services provided to patient in accordance with Admission requirements found in Title 42 Section 412.3 of the Code of Federal Regulations <Patrick Hernandez - Last Filed: 03/18/22 21:53> Patient History Date of Service: 03/18/22 Reason for admission: Syncope History of Present Illness: Patient is a 46-year-old male with a past medical history significant for anxiety disorder, ESRD, DM 2, hypertension who presents with complaint of syncope while at dialysis today. Patient reported that during his dialysis session he suddenly started having episodes of lightheadedness and dizziness. Shortly after patient passed out and Patient cannot not remember events that transpired until when he was picked up by EMS before patient regained consciousness. Patient reported that he had a near syncopal experience 8 days ago and had to quickly sit down. Patient denies any other signs or symptoms. Symptoms are aggravated or relieved by nothing. Patient was brought to the hospital for medical evaluation. - Past Medical/Surgical History Diabetic: Yes -: Diabetes mellitus type 2, insulin dependent -: Hypertension -: GERD -: Diabetic gastroparesis -: End stage renal disease on HD/ Dr. Mccoy -: Cataract surgery -: Laser for Retinal Detachment -: HD fistula surgery Psychosocial/ Personal History: Patient is . He has no children. - Family History Father -: Diabetes, Kidney disease - Social History Smoking Status: Unknown if ever smoked Alcohol use: Yes CD- Drugs: No Caffeine use: No Place of Residence: Home <Patrick Hernandez - Last Filed: 03/18/22 21:53> Date of Service: 03/18/22 <Dennys Monzon - Last Filed: 03/18/22 23:50> Allergies No Known Allergies Allergy (Verified 12/18/21 10:28) Home Medications: RX: ALPRAZolam [Alprazolam] 1 mg PO DAILYPRN PRN 09/29/19 RX: Insulin Aspart [Novolog Penfill] 20 unit SQ TIDWM 09/29/19 RX: Sevelamer Carbonate [Renvela*] 3 tab PO TIDWM 09/29/19 RX: Nifedipine [Nifedipine ER] 90 mg PO DAILY 01/15/21 RX: Ropinirole HCl 4 mg PO BEDTIME 01/15/21 RX: Tizanidine HCl [Zanaflex] 4 mg PO BEDTIME 01/15/21 Aspirin [Aspirin EC 81 MG] 81 mg PO DAILY 12/18/21 Dicyclomine [Bentyl] 20 mg PO QID 12/18/21 Insulin Glargine,Hum.rec.anlog [Basaglar Kwikpen U-100] 20 unit SQ BEDTIME 12/18/21 Review of Systems General: Unremarkable Eyes: Unremarkable ENT: Unremarkable Respiratory: Unremarkable Cardiovascular: Light Headedness Gastrointestinal: Unremarkable Genitourinary: Unremarkable Musculoskeletal: Unremarkable Integumentary: Unremarkable Neurological: Other (Dizziness) Lymphatics: Unremarkable <Patrick Hernandez E - Last Filed: 03/18/22 21:53> Physical Examination - Physical Exam General: Alert, In no apparent distress, Oriented x3, Cooperative HEENT: Atraumatic, PERRLA, Mucous membr. moist/pink, EOMI, Sclerae nonicteric Neck: Supple, 2+ carotid pulse no bruit, No LAD, Without JVD or thyroid abnormality Respiratory: Clear to auscultation bilaterally, Normal air movement Cardiovascular: Regular rate/rhythm, Normal S1 S2 Capillary refill: <2 Seconds Gastrointestinal: Normal bowel sounds, Soft and benign, Non-distended, No tenderness Musculoskeletal: No clubbing, No swelling, No tenderness Integumentary: No rashes, No breakdown, No significant lesion Neurological: Normal speech, Normal tone, Normal affect Lymphatics: No axilla or inguinal lymphadenopathy - Studies Laboratory Data (last 24 hrs) 03/18/22 07:20: PT 12.6 H, INR 1.15 03/18/22 07:20: WBC 6.20, Hgb 10.2 L, Hct 30.8 L, Plt Count 85 L 03/18/22 07:20: Sodium 138, Potassium 3.6, BUN 72 H, Creatinine 9.64 H*, Glucose 90, Magnesium 2.1, Total Bilirubin 0.8, AST 15, ALT 19, Alkaline Phosphatase 132 H, Lipase 502 H <Patrick Hernandez E - Last Filed: 03/18/22 21:53> - Studies Laboratory Data (last 24 hrs) 03/18/22 07:20: PT 12.6 H, INR 1.15 03/18/22 07:20: WBC 6.20, Hgb 10.2 L, Hct 30.8 L, Plt Count 85 L 03/18/22 07:20: Sodium 138, Potassium 3.6, BUN 72 H, Creatinine 9.64 H*, Glucose 90, Magnesium 2.1, Total Bilirubin 0.8, AST 15, ALT 19, Alkaline Phosphatase 132 H, Lipase 502 H <Dennys Monzon - Last Filed: 03/18/22 23:50> Assessment and Plan - Plan --Syncope. Echocardiogram pending to assess cardiac structures and functions. Carotid artery Doppler to rule out any carotid artery stenosis. We will get some orthostatic vital signs. Fall precautions. Cardiology consulted. We will await further recommendations from tractor mechanic. Continue supportive care. -- Elevated troponin. We will trend serial troponins--currently elevated. Cardiology on board. Telemetry to monitor for any significant arrhythmia. We will await further recommendations from tractor mechanic --ESRD. Patient on MWF schedule. Nephrology consulted. Further management per junior java developer. --Anemia of chronic disease. H&H stable. We will continue to monitor hemoglobin and transfuse if less than 7.0. --Acute on chronic diastolic CHF exacerbation. Dialysis schedule per junior java developer. --DM2. BS monitoring with sliding scale insulin and Lantus. --Hypertension. Poorly controlled. Continue home medications and hydralazine as needed.. --RLS. Continue Requip. --GERD. Continue protonix --Anxiety disorder. Continue home medications. --Thrombocytopenia. Unclear etiology. Continue supportive care. --DVT prophylaxis with SCDs Discharge Plan: Home Plan to discharge in: 48 Hours - Advance Directives Does patient have a Living Will: No Does patient have a Durable POA for Healthcare: No - Code Status/Comfort Care Code Status Assessed: Yes Physician Review: Patient Assessed, Agree with Above Assessment and Plan Critical Care: No <Patrick Hernandez - Last Filed: 03/18/22 21:53> Physician Review: Patient Assessed, Agree with Above Assessment and Plan <Dennys Monzon - Last Filed: 03/18/22 23:50>
[2022-03-18] MEDS ORDERED: HYDRALAZINE HCL 10 MG TABLET ONE (13:17)
[2022-03-18] MEDS: DICYCLOMINE HCL 10 MG CAP PO SCH ×3 (14:19→19:50)
[2022-03-18 14:35] VITALS: BMI 28.4
[2022-03-18] MEDS: INSULIN -REGULAR HUMAN 50 UNIT/0.5 ML ML SQ SCH ×2 (16:52→21:00)
--- NOTE | 2022-03-18 16:53 | CON ---
Date of Consultation: 03/18/2022 Reason For Consultation: Elevated troponin. History Of Present Illness: A 46-year-old male with end-stage renal disease, history of diabetes, hy pertension, dyslipidemia. He apparently was having dialysis when he became less responsive. He is o n dialysis Friday, Friday, and Saturdays. After 30 minutes to the dialysis, he felt like his bloo d sugar was dropping, but then he became incoherent and he heard people that they were saying that he is blue, but no CPR was initiated. Not sure what was his blood sugar or blood pressure at that time , brought into the emergency room and since he has been in the ER has been stable. Does not have any specific symptoms. Past Medical History: As outlined above in HPI. Medications: Refer to reconciliation sheet for detailed list. Medications were reviewed. Allergies: NO KNOWN DRUG ALLERGIES. Family History: No premature coronary artery disease or cancer. Social History: He does not smoke or drink. Does not use any drugs. Review of Systems: All systems reviewed and they were negative except what mentioned in HPI. Physical Examination: Vital Signs: Reviewed. Head and Neck: Pupils are equal, reactive to light. Intact eye movements. No JVD. No cervical lym phadenopathy. Neck is supple. Thyroid is not enlarged. Lungs: Clear to auscultation bilaterally. No rhonchi, wheezing, or crackles. No accessory muscle u se. Heart: Regular rate and rhythm. No extra sounds. Abdomen: Soft, nontender. Bowel sounds positive. No organomegaly. No masses or hernia. No rigidi ty or rebound. Extremities: Edema bilaterally. No clubbing or cyanosis. Intact pulses. Skin: No rash. Neurologic: Alert, awake, oriented x3. No acute focal deficits appreciated. Investigations: BUN is 72, creatinine 9.6. Troponin is 198, the first set. NT-proBNP was _. Assessment And Recommendations: 1.Near syncope. This could be due to hypotension after dialysis session initiation. Admit to telem etry, monitor for any arrhythmia, and also obtain serial sets of cardiac enzymes and an echocardiogra m in the morning. Further recommendations will follow based on his troponin trend and echo findings. 2.Hypertension. Blood pressure is elevated. Resume home medications and adjust further as needed f or systolic blood pressure less than 150. 3.Elevated troponin. There is no chest pain. The patient has multiple risk factors including diabe hui, end-stage renal disease, hypertension. I recommend an exercise stress test during this hospital stay. /KYLE Voice ID: [id number] Report ID: [id number]
[2022-03-18] MEDS ORDERED: SEVELAMER CARBONATE 800 MG TABLET PO SCH (17:00)
[2022-03-18] MEDS: NIFEDIPINE XL 90 MG TABLET PO SCH (17:34)
[2022-03-18] MEDS: LOSARTAN POTASSIUM 50 MG TABLET PO SCH ×2 (17:35→19:51)
[2022-03-18] MEDS: TIZANIDINE 4 MG TABLET PO SCH (19:51)
[2022-03-18] MEDS ORDERED: VALSARTAN 80 MG TAB PO SCH (21:00)
[2022-03-18] MEDS: INSULIN GLARGINE 100 UNIT/ML SQ SCH (22:29)
[2022-03-19 04:46] LABS: Absolute Lymphocytes (CBC) 0.9 K/uL (0.7-4.9); Lymphocytes % 19.5 % (15.3-44.8); MCV 88.1 fL (80-100); MPV 8.2 fL (7.6-11.3); RBC Red Blood Cell Count 3.29 M/uL (4.33-5.43)
[2022-03-19 06:08] LABS: Potassium 3.7 mmol/L (3.5-5.1)
[2022-03-19] MEDS: PANTOPRAZOLE 40MG TABLET PO SCH (06:30)
[2022-03-19] MEDS: INSULIN -REGULAR HUMAN 50 UNIT/0.5 ML ML SQ SCH ×4 (07:30→21:21)
[2022-03-19] MEDS: SEVELAMER CARBONATE 800 MG TABLET PO SCH ×3 (07:31→14:49)
[2022-03-19] MEDS: DICYCLOMINE HCL 10 MG CAP PO SCH ×5 (07:31→21:20)
--- NOTE | 2022-03-19 08:33 | EKG ---
Test Date: 2022-03-18 Test Time: 07:22:09 [employer] Concierge: GI MEASUREMENT RESULTS: Intervals: Rate: 64 MN: 166 QRSD: 90 QT: 456 QTc: 470 [place]: P: 23 MN: 166 QRS: 177 T: -23 INTERPRETIVE STATEMENTS: Normal sinus rhythm Right axis deviation Nonspecific ST and T wave abnormality Abnormal ECG Compared to ECG 12/18/2021 10:41:47 Right-axis deviation now present Left-axis deviation no longer present Prolonged QT interval no longer present ST (T wave) deviation still present Electronically Signed On 03-19-22 08:31:18 SALES ACCOUNT ASSOCIATE by Jules Yadav
--- NOTE | 2022-03-19 08:43 | RAD REPORT ---
EXAM DESCRIPTION: USCarotid Artery Bilateral03/19/2022 5:24 am CLINICAL HISTORY: syncope COMPARISON: None FINDINGS: The velocity of the right internal carotid artery equals 75 cm/sec. The right ICA/CCA rati o 1 The velocity of the left internal carotid artery equals 87 cm/sec. The left ICA/CCA ratio 1.1 Mild plaque is present within the carotid arteries. The vertebral arteries demonstrate antegrade flow IMPRESSION: Mild plaque within the carotid arteries without evidence of a hemodynamically significan t stenosis NASCET criteria used. Mild 0-49% stenosis Moderate 50-69% stenosis Severe 70-99% stenosis
[2022-03-19] MEDS ORDERED: NIFEDIPINE XL 90 MG TABLET PO SCH (09:00)
[2022-03-19] MEDS ORDERED: DRISDOL (VITAMIN D=ERGOCALCIFEROL) 50000 UNIT CAP PO SCH (09:00)
[2022-03-19] MEDS: NIFEDIPINE XL 90 MG TABLET PO SCH (09:00)
[2022-03-19] MEDS ORDERED: REGADENOSON 0.4 MG/5 ML SYR IV ONE (09:08)
[2022-03-19] MEDS: ASPIRIN 81 MG CHEWABLE TABLET PO SCH (09:56)
[2022-03-19] MEDS: ROPINIROLE HCL 1 MG TAB PO SCH (09:56)
[2022-03-19] MEDS: LOSARTAN POTASSIUM 50 MG TABLET PO SCH ×2 (09:56→21:20)
--- NOTE | 2022-03-19 12:29 | RAD REPORT ---
EXAM DESCRIPTION: NM - Rest Stress Cardiac Imaging - 03/19/2022 11:13 am CLINICAL HISTORY: ELEVATED TROPONIN COMPARISON: 2019 TECHNIQUE: The patient was administered 10.6 mCi of Tc 99m Sestamibi prior to resting SPECT imaging of the heart. The patient was then administered 30. 2 mCi of Tc 99m Sestamibi following exercise or p harmacologic stress. Multiplanar SPECT images were reviewed. FINDINGS: Large area of diminished radiotracer uptake involves the apical, inferior and lateral left ventricular myocardium. This is seen on rest and stress images. Small area of diminished radiotracer uptake involves the septal left ventricular myocardium on stress images. This demonstrates normal uptake on rest images The left ventricular ejection fraction equals 50% IMPRESSION: Large fixed perfusion defects apical, inferior and lateral left ventricle myocardium lik elena infarction. Small reversible perfusion defect septal left ventricular myocardium may indicate stress-induced isch emia
--- NOTE | 2022-03-19 18:06 | P.PN ---
Subjective Date of Service: 03/19/22 Chief Complaint: Syncope No acute events overnight. He has had no recurrent episodes of syncope. His nuclear stress test returned positive for stress-induced ischemia. Currently, he denies any chest pain or shortness of breath. Review of Systems 10-point ROS is otherwise unremarkable Physical Examination - Vital Signs Temperature: 97.9 F Blood Pressure: 144/63 Pulse: 71 Respirations: 16 Pulse Ox (%): 90 - Physical Exam General: Alert, In no apparent distress, Oriented x3 HEENT: Atraumatic, Mucous membr. moist/pink, Sclerae nonicteric Neck: JVD not distended Respiratory: Clear to auscultation bilaterally, Normal air movement Cardiovascular: Regular rate/rhythm, Normal S1 S2, Edema (trace BLE) Gastrointestinal: Soft and benign, Non-distended Musculoskeletal: No clubbing Integumentary: No rashes Neurological: Normal speech, Cranial nerves 3-12 intact, Normal affect Assessment And Plan - Plan # Acute on Chronic Decompensated Diastolic Congestive Heart Failure with Preserved Ejection Fraction # End-Stage Renal Disease on MWF iHD # Anemia and Thrombocytopenia likely secondary to ESRD - Consult Cardiology and spoke with Dr. Pak - recommendations appreciated - Consulted Nephrology and spoke with Dr. Mccoy - recommendations appreciated - Ordered transthoracic echocardiogram - Volume removal to be performed via hemodialysis - Daily weights - Strict I/O - Cardiac diet, 1.5 L fluid restriction, 2 g Na restriction # Suspected Type II Non-ST Segment Elevation Myocardial Infarction (Demand Ischemia) secondary to above - Evaluation thus far: - EKG: reportedly without STEMI criteria, trend - Serial troponin = 198.4 -> 222.6 -> 181.1 - Ordered transthoracic echocardiogram - Consider CT chest angiogram if timing can be arranged with HD - Management plan: - Consult Cardiology and spoke with Dr. Pak - recommendations appreciated - Nuclear stress test = "Large fixed perfusion defects apical, inferior and lateral left ventricle myocardium likely infarction. Small reversible perfusion defect septal left ventricular myocardium may indicate stress-induced ischemia " - Plan for [facility] tomorrow - Continue home aspirin, losartan - Started atorvastatin - Plan to start beta-christian if blood pressure allows # Syncope Differential diagnoses include, but are not limited to, vasovagal syncope, ortho static hypotension, cardiac etiology (i.e. arrhythmia, valvulopathy), and neurogenic etiologies. - Orthostatic vital signs Telemetry - Serial troponin = 198.4 -> 222.6 -> 181.1 - Transthoracic echocardiogram = pending - Noncontrast CT head = pending # Type II Diabetes Mellitus - Continue home insulin glargine + correction scale insulin # Hypertension - Continue home losartan, nifedipine # Generalized Anxiety Disorder - Continue home tizanidine, PRN alprazolam # Restless Leg Syndrome - Continue home ropinirole # Gastroesophageal Reflux Disease - Continue home pantoprazole Dennys Monzon M.D.
--- NOTE | 2022-03-19 18:26 | PN ---
Date of Progress Note: 03/19/2022 Subjective: Seen by bedside, doing clinically well. No chest pain. Review of Systems: No chest pain, shortness of breath, orthopnea, or cough. No nausea, vomiting, or diarrhea. No abdom inal pain. No dysuria, polyuria, or urinary urgency. All other systems reviewed and they are negati ve. Physical Examination: Vital Signs: Reviewed. Head and Neck: Pupils are equal and reactive to light. Intact eye movements. No JVD. No cervical lymphadenopathy. Neck is supple. Thyroid is not enlarged. Lungs: Clear to auscultation bilaterally. No rhonchi, wheezing, or crackles. No accessory muscle u se. Heart: Regular rate and rhythm. No extra sounds. Abdomen: Soft, nontender. Bowel sounds positive. No organomegaly. No masses or hernia. No rigidi ty or rebound. Extremities: No edema, clubbing, or cyanosis. Intact pulses. Skin: No rashes. Neurologic: Alert, awake, and oriented x3. No acute focal deficits appreciated. Investigations: BUN 51, creatinine 7.2. NT-proBNP is 149,519. Assessment/recommendation: 1.Elevated troponin. Stress test was positive for inferolateral ischemia. Keep n.p.o. Plan for co ronary angiogram tomorrow. 2.Near syncope. This could be due to the coronary artery disease when initiated dialysis that could drop his blood pressure significantly. Plan for coronary angiogram tomorrow. 3.End-stage renal disease, on hemodialysis. 4.Hypertension. Blood pressure is acceptable. Continue current management. SR/MODL Voice ID: [id number] Report ID: [id number]
[2022-03-19] MEDS: METOPROLOL TAR 25 MG TAB PO SCH (18:33)
[2022-03-19] MEDS: ATORVASTATIN 40 MG TAB PO SCH (21:20)
[2022-03-19] MEDS: INSULIN GLARGINE 100 UNIT/ML SQ SCH (21:20)
[2022-03-19] MEDS: TIZANIDINE 4 MG TABLET PO SCH (21:20)
--- NOTE | 2022-03-19 22:10 | P.PN ---
Date of Service: 03/19/22 Vital Signs Temp Pulse Resp BP Pulse Ox 97.9 F 71 16 144/63 H 90 L 03/19/22 18:19 03/19/22 18:19 03/19/22 18:19 03/19/22 18:19 03/19/22 18:19 Medications Acetaminophen (Acetaminophen 325 Mg Tablet) 650 mg PO Q6H PRN PRN Reason: TEMP > 100' F Hydrocodone Bitart/Acetaminophen (Hydrocodone/Apap 5/325 Mg Tab) 1 tab PO Q6H PRN PRN Reason: Pain scale 5-7 (Moderate) Alprazolam (Alprazolam 1 Mg Tablet) 1 mg PO DAILYPRN PRN PRN Reason: restless leg Aspirin (Aspirin 81 Mg Chewable Tablet) 81 mg PO DAILY [facility] Last Admin: 03/19/22 09:56 Dose: 81 mg Atorvastatin Calcium (Atorvastatin 40 Mg Tab) 40 mg PO BEDTIME [facility] Last Admin: 03/19/22 21:20 Dose: 40 mg Dicyclomine HCl (Dicyclomine Hcl 10 Mg Cap) 20 mg PO QID [facility] Last Admin: 03/19/22 21:20 Dose: 20 mg Ergocalciferol (Drisdol (Vitamin D=Ergocalciferol) 97376 Unit Cap) 50,000 unit PO Q7D@0900 [facility] Last Admin: 03/19/22 09:00 Dose: Not Given Heparin Sodium (Porcine) (Heparin 1,000 Unit/Ml Vial) 3,000 unit IV EVERY HD PRN PRN Reason: Prevent Lines Clotting Last Admin: 03/18/22 14:57 Dose: 3,000 unit Hydralazine HCl (Hydralazine Hcl 10 Mg Tablet) 10 mg PO Q4HP PRN PRN Reason: blood pressure over 160 Albumin Human (Albumin 25%) 50 mls @ 100 mls/hr IV EVERY HD [facility] Insulin Glargine (Insulin Glargine 100 Unit/Ml) 20 unit SQ BEDTIME [facility] Last Admin: 03/19/22 21:20 Dose: 20 unit Insulin Human Regular (Insulin -Regular Human 50 Unit/0.5 Ml Ml) 0 unit SQ ACHS [facility]; Protocol Last Admin: 03/19/22 21:21 Dose: 4 unit Losartan Potassium (Losartan Potassium 50 Mg Tablet) 50 mg PO BID [facility] Last Admin: 03/19/22 21:20 Dose: 50 mg Mannitol (Mannitol 25% 12.5 Gm/50 Ml Vial) 12.5 gm IV EVERY HD PRN PRN Reason: Titrate to SBP (MUST DEFINE) Metoprolol Tartrate (Metoprolol Tar 25 Mg Tab) 12.5 mg PO BID 6AM 6PM [facility] Last Admin: 03/19/22 18:33 Dose: 12.5 mg Nifedipine (Nifedipine Xl 90 Mg Tablet) 90 mg PO DAILY [facility] Last Admin: 03/19/22 09:00 Dose: Not Given Ondansetron HCl (Ondansetron 4 Mg/2 Ml Vial) 4 mg IV Q6HP PRN PRN Reason: NAUSEA / VOMITING Last Admin: 03/18/22 19:50 Dose: 4 mg Pantoprazole Sodium ([facility] 40mg Tablet) [facility] Last Admin: 03/19/22 06:30 Dose: Not Given Ropinirole HCl (Ropinirole Hcl 1 Mg Tab) 4 mg PO DAILY [facility] Last Admin: 03/19/22 09:56 Dose: 4 mg Sevelamer Carbonate (Sevelamer Carbonate 800 Mg Tablet) 800 mg PO TIDWM [facility] Last Admin: 03/19/22 14:49 Dose: 800 mg Sodium Chloride (Flush Normal Saline 10 Ml) 10 ml IV BID [facility] Last Admin: 03/19/22 21:21 Dose: 10 ml Tizanidine HCl (Tizanidine 4 Mg Tablet) 4 mg PO BEDTIME [facility] Last Admin: 03/19/22 21:20 Dose: 4 mg Lab Results (last 24 hrs) 03/19/22 16:27: POC Glucose 198 H 03/19/22 07:50: POC Glucose 166 H 03/19/22 03:50: Sodium 137, Potassium 3.7, Chloride 100, Carbon Dioxide 27, Anion Gap 13.7, BUN 51 H, Creatinine 7.28 H*, Est GFR (CKD-EPI) 9 L, Glucose 184 H, Calcium 9.3, NT-Pro-B Natriuret Pep 227202 H 03/19/22 03:50: WBC 4.50, RBC 3.29 L, Hgb 9.8 L, Hct 29.0 L, MCV 88.1, MCH 29.8, MCHC 33.8, RDW 19.0 H, Plt Count 86 L, MPV 8.2, Neutrophils % 68.1, Lymphocytes % 19.5, Monocytes % 8.4, Eosinophils % 3.4, Basophils % 0.6, Absolute Neutrophils 3.1, Absolute Lymphocytes 0.9, Absolute Monocytes 0.4, Absolute Eosinophils 0.2, Absolute Basophils 0.0 Assessment/ Plan: Nephrology No dyspnea No chest pain Feeling better No acute events overnight Vitals, medications, blood work and imaging reviewed in the chart. General: Alert, Oriented x3, Cooperative HEENT: Atraumatic Neck: Supple Respiratory: Clear to auscultation bilaterally Cardiovascular: Regular rate/rhythm, Edema Gastrointestinal: Soft and benign, Non-distended Musculoskeletal: No clubbing, No contractures Integumentary: No rashes, No cyanosis Neurological: Normal speech Laboratory Data (last 24 hrs) 03/18/22 07:20: PT 12.6 H, INR 1.15 03/18/22 07:20: WBC 6.20, Hgb 10.2 L, Hct 30.8 L, Plt Count 85 L 03/18/22 07:20: Sodium 138, Potassium 3.6, BUN 72 H, Creatinine 9.64 H*, Glucose 90, Magnesium 2.1, Total Bilirubin 0.8, AST 15, ALT 19, Alkaline Phosphatase 132 H, Lipase 502 H Conclusions/Impression: ESRD on HD -Acute HD today HTN with CKD/ CHF -Continue Nifedipine and Losartan Diastolic CHF, chronic -HD with UF today -Low sodium diet DM II with CKD & Polyneuropathy -RISS Anemia in CKD -Retacrit PRN CKD MBD -Continue Ergo -Continue Renvela Syncopal episode of unclear etiology -Telemetry -Serial troponins -Positive stress test today; plan for cardiac cath tomorrow Case reviewed with Dr. Monzon
[2022-03-20 04:37] LABS: Absolute Lymphocytes (CBC) 0.9 K/uL (0.7-4.9); Hematocrit 30.4 % (39.6-49.0); Lymphocytes % 23.7 % (15.3-44.8); MCV 89.2 fL (80-100); MPV 8.1 fL (7.6-11.3); RBC Red Blood Cell Count 3.41 M/uL (4.33-5.43)
[2022-03-20] MEDS ORDERED: D50W 25 GM/50 ML SYRINGE IV ONE (04:39)
[2022-03-20 04:40] LABS: Phosphorus 4.8 mg/dL (2.5-4.9); Potassium 3.8 mmol/L (3.5-5.1)
[2022-03-20] MEDS ORDERED: D10W 250 ML IV ONE (04:48)
[2022-03-20] MEDS ORDERED: D10W 125 ML IV ONE (05:00)
[2022-03-20] MEDS: PANTOPRAZOLE 40MG TABLET PO SCH (05:14)
[2022-03-20] MEDS: ASPIRIN 81 MG CHEWABLE TABLET PO SCH (05:14)
[2022-03-20] MEDS: LOSARTAN POTASSIUM 50 MG TABLET PO SCH ×2 (05:15→20:46)
[2022-03-20] MEDS: METOPROLOL TAR 25 MG TAB PO SCH ×2 (05:15→17:17)
[2022-03-20] MEDS: NIFEDIPINE XL 90 MG TABLET PO SCH (05:15)
[2022-03-20] MEDS ORDERED: KCL 20 MEQ/100 mL IVPB 20 MEQ/100 ML BAG IV SCH (06:00)
[2022-03-20] MEDS ORDERED: NA CHLORIDE 0.9% 250 ML ONE (06:20)
[2022-03-20] MEDS: DICYCLOMINE HCL 10 MG CAP PO SCH ×4 (07:26→20:45)
[2022-03-20] MEDS: INSULIN -REGULAR HUMAN 50 UNIT/0.5 ML ML SQ SCH ×4 (07:26→20:46)
[2022-03-20] MEDS: SEVELAMER CARBONATE 800 MG TABLET PO SCH ×3 (07:26→17:17)
[2022-03-20] MEDS ORDERED: HEPA 1000U/500MLS 2,000 UNIT/1,000 ML BAG IV ONE (07:28)
[2022-03-20] MEDS ORDERED: HEPARIN 5000 UNIT/ML 1 ML VIAL ONE (07:29)
[2022-03-20] MEDS ORDERED: MIDAZOLAM HCL 2 MG/2 ML INJ ONE (07:29)
[2022-03-20] MEDS ORDERED: FENTANYL CITR 100 MCG/2 ML ONE (07:29)
[2022-03-20] MEDS ORDERED: VERAPAMIL HCL 10 MG/4 ML VIAL IV ONE (07:29)
[2022-03-20] MEDS ORDERED: LIDOCAINE 1% 20 ML MDV ONE (07:29)
[2022-03-20] MEDS ORDERED: HEPARIN 10,000 UNIT/10 ML VIAL IV ONE (07:30)
[2022-03-20] MEDS ORDERED: ATROPINE SULF 1 MG/10 ML SYR IV ONE (07:30)
--- NOTE | 2022-03-20 07:32 | TREADPHA ---
DX: ELEVATED TROPONIN Date of Study: 03/19/2022 Ht: 5' 6 " Wt: 176 lb 0 oz Consulting Physician: LEIGHTON MEDICATIONS: ASPIRIN, COZAAR, DRISDOL, PROCARDIA, REQUIP, NOVOLIN HISTORY: 46 YEAR OLD MALE WITH COMPLAINTS OF CHEST PAIN. HISTORY OF END STAGE RENAL DISEASE, DIABETES MELLITUS, HYPERTENSION. DENIES SMOKING ALCOHOL OR DRUG USE OR PREVIOUS HEART SYMPTOMS. PHYSICIAL EXAMINATION: RESTING B.P.: 130/78 RESTING H.R.: 77 RESTING EKG: NORMAL SINUS RHYTHM, ST DEPRESSION IN INFERIOR LATERAL LEADS PROTOCOL: MYOVIEW CHANGED TO LEXISCAN EXERCISE TIME: 3:30 B.P. AT PEAK STRESS: 125/76 IMPRESSION: PATIENT PLACED ON TREADMILL , PATIENT UNABLE TO TOLERATE EXERCISE, PROCEDURE ABORTED DUE TO FATIGUE. DR. MANZANARES NOTIFIED. STATES TO SWITCH TO LEXISCAN STRESS TEST AT THIS TIME. PATIENT AGREEABLE. NUCLEAR MEDICINE MADE AWARE. LEXISAN INJECTED. CARDIOLITE GIVEN PER PROTOCOL. SEE NUCLEAR MEDICINE REPORT. DENIES CHEST PAIN/ SHORTNESS OF BREATH. NO SUPRAVENTRICULAR TACHYCARDIA, VENTRICULAR TACHYCARDIA. PREMATURE VENTRICULAR COMPLEXES, PREMATURE ATRIAL COMPLEXES NOTED. INFEROLATERAL ST DEPRESSION GREATER THAN 1 mm SUGGESTIVE OF ISCHEMIA.
[2022-03-20] MEDS ORDERED: DEXTROSE 10%-WATER 125 ML IV PRN (08:11)
[2022-03-20] MEDS: ROPINIROLE HCL 1 MG TAB PO SCH (08:54)
[2022-03-20] MEDS ORDERED: D10W 250 ML IV SCH (09:00)
--- NOTE | 2022-03-20 10:47 | OP ---
Date of Procedure: 03/20/2022 Surgeon: ROSE MANZANARES Procedures Performed: 1.Selective coronary angiogram. 2.Left heart catheterization. Indication: Abnormal stress test, elevated troponin. Access: Right femoral artery 6-Montenegrin closed with StarClose. Complications: None. Bleeding: Less than 20 mL. Anesthesia: Total sedation time was 30 minutes. Used fentanyl and Versed. Description Of Procedure: After risks, benefits, and alternatives were explained, the patient agreed to the procedure and signed informed consent. The patient was brought into the cardiac catheterizat ion laboratory, prepped and draped in the usual sterile fashion. Then, I accessed right femoral melita ry using a micropuncture kit, ultrasound guidance and fluoroscopy, and placed a 6-Montenegrin Cataumet she ath and then took a 6-Montenegrin JL4 catheter into the aortic root, engaged the left main, took standard views and exchanged for 6-Montenegrin JR4 catheter and engaged the RCA, took standard views. Then, the ca theter was pushed over the wire into the LV. LVEDP was measured and pullback did not recorded gradie nt. Then, the catheter was removed. Sheath was removed. StarClose was used for closure with good h emostasis. Findings: 1.Left main; large and normal. 2.LAD; proximal, severe, heavily calcified, 80% to 90% stenosis, very ostial and also involves the d iagonal branch takeoff, which is a large branch. Then, the LAD becomes normal, large, wraps around t he apex. Diagonal branches appear to be normal. 3.Left circumflex; moderate-sized vessel with mid 80% and then the OM1 takes off and then after the OM1 takes off, it becomes 90% stenosed. The OM1 in the proximal segments 99% stenosis with LEELEE 1 fl ow. 4.RCA; large and dominant and it is normal. 5.Elevated LVEDP at 28 mmHg. Conclusion: 1.Severe multivessel disease. 2.Elevated LVEDP. Recommendation: Bypass. SR/MODL Voice ID: [id number] Report ID: [id number]
--- NOTE | 2022-03-20 11:20 | PN ---
Date of Progress Note: 03/20/2022 Subjective: Seen by bedside, doing better without any chest pain. Has some shortness of breath. No nausea, vomiting, diarrhea. All other systems reviewed and they were negative. Physical Examination: Vital Signs: Reviewed. Temperature is 97.0, pulse 67, breathing at 18, blood pressure 154/73. General: Pleasant young male, no apparent distress. Head and Neck: Pupils are equal, reactive to light. Intact eye movements. No JVD. No cervical lym phadenopathy. Neck is supple. Thyroid is not enlarged. Lungs: Clear to auscultation bilaterally. No rhonchi, wheezing, or crackles. No accessory muscle u se. Heart: Regular rate and rhythm. No extra sounds. Abdomen: Soft, nontender. Bowel sounds positive. No organomegaly. No masses or hernia. No rigidi ty or rebound. Extremities: No clubbing or cyanosis. Intact pulses. Skin: No rash. Neurologic: Alert, awake, oriented x3. No acute focal deficits appreciated. Investigations: BUN 33, creatinine is 5.97. Coronary angiogram showed severe LAD and left circumfle x disease. Assessment And Recommendations: 1.Severe coronary artery disease with ostial LAD heavily calcified and mid left circ and OM1. Recom mend coronary artery bypass surgery given the fact he is very young and is diabetic. The patient wou ld like to think this option with the family. If the patient refuses bypass surgery, then we will pl an for staged PCI first to the LAD and then to the left circumflex. Meanwhile continue on aspirin. 2.Shortness of breath due to fluid retention. His LVEDP is elevated at 28 mmHg. Discussed Nephrolo gy role of further adjust fluid management through dialysis. 3.Dyslipidemia. Continue statin. SR/MODL Voice ID: [id number] Report ID: [id number]
[2022-03-20] MEDS: HYDRALAZINE HCL 10 MG TABLET PO PRN ×2 (12:00→17:18)
--- NOTE | 2022-03-20 16:15 | P.PN ---
Subjective Date of Service: 03/20/22 Chief Complaint: Syncope No acute events overnight. He underwent a left heart cath, which revealed severe multivessel coronary artery disease. Dr. Pak has recommended transfer to [facility] for CABG vs PCI. Discussed with Mr. Chacon, who was in agreement with transfer. Currently, he denies any chest pain or shortness of breath. Review of Systems 10-point ROS is otherwise unremarkable Cardiovascular: Chest Pain (improved) Physical Examination - Vital Signs Temperature: 97 F Blood Pressure: 176/84 Pulse: 67 Respirations: 16 Pulse Ox (%): 96 Assessment And Plan - Plan - Physical Exam General: Alert, In no apparent distress, Oriented x3 HEENT: Atraumatic, Mucous membr. moist/pink, Sclerae nonicteric Neck: JVD not distended Respiratory: Clear to auscultation bilaterally, Normal air movement Cardiovascular: Regular rate/rhythm, Normal S1 S2, Edema (trace BLE) Gastrointestinal: Soft and benign, Non-distended Musculoskeletal: No clubbing Integumentary: No rashes Neurological: Normal speech, Cranial nerves 3-12 intact, Normal affect # Acute on Chronic Decompensated Diastolic Congestive Heart Failure with Preserved Ejection Fraction # End-Stage Renal Disease on MWF iHD # Anemia and Thrombocytopenia likely secondary to ESRD - Consult Cardiology and spoke with Dr. Pak - recommendations appreciated - Consulted Nephrology and spoke with Dr. Mccoy - recommendations appreciated - Volume removal to be performed via hemodialysis - Daily weights - Strict I/O - Cardiac diet, 1.5 L fluid restriction, 2 g Na restriction # Severe Multi-vessel Coronary Artery Disease complicated by Non-ST Segment Elevation Myocardial Infarction - Evaluation thus far: - EKG: reportedly without STEMI criteria, trend - Serial troponin = 198.4 -> 222.6 -> 181.1 - Management plan: - Consult Cardiology and spoke with Dr. Pak - recommendations appreciated - Nuclear stress test = "Large fixed perfusion defects apical, inferior and lateral left ventricle myocardium likely infarction. Small reversible perfusion defect septal left ventricular myocardium may indicate stress-induced ischemia " - LHC = severe multivessel CAD - Transfer initiated to [facility] - Continue home aspirin, losartan - Continue atorvastatin, metoprolol # Syncope, concern for Cardiac Etiology Differential diagnoses include, but are not limited to, vasovagal syncope, orthostatic hypotension, cardiac etiology (i.e. arrhythmia, valvulopathy), and neurogenic etiologies. - Orthostatic vital signs Telemetry - Serial troponin = 198.4 -> 222.6 -> 181.1 - Transthoracic echocardiogram = pending # Type II Diabetes Mellitus - Continue home insulin glargine + correction scale insulin # Hypertension - Continue home losartan, nifedipine # Generalized Anxiety Disorder - Continue home tizanidine, PRN alprazolam # Restless Leg Syndrome - Continue home ropinirole # Gastroesophageal Reflux Disease - Continue home pantoprazole Dennys Monzon M.D.
[2022-03-20] MEDS: ATORVASTATIN 40 MG TAB PO SCH (20:45)
[2022-03-20] MEDS: TIZANIDINE 4 MG TABLET PO SCH (20:45)
[2022-03-20] MEDS: INSULIN GLARGINE 100 UNIT/ML SQ SCH (20:46)
--- NOTE | 2022-03-20 21:41 | P.PN ---
Date of Service: 03/20/22 Vital Signs Temp Pulse Resp BP Pulse Ox 97.1 F 75 19 131/65 92 03/20/22 20:00 03/20/22 20:00 03/20/22 20:00 03/20/22 20:00 03/20/22 20:00 Medications Acetaminophen (Acetaminophen 325 Mg Tablet) 650 mg PO Q6H PRN PRN Reason: TEMP > 100' F Hydrocodone Bitart/Acetaminophen (Hydrocodone/Apap 5/325 Mg Tab) 1 tab PO Q6H PRN PRN Reason: Pain scale 5-7 (Moderate) Alprazolam (Alprazolam 1 Mg Tablet) 1 mg PO DAILYPRN PRN PRN Reason: restless leg Aspirin (Aspirin 81 Mg Chewable Tablet) 81 mg PO DAILY [facility] Last Admin: 03/20/22 05:14 Dose: 81 mg Atorvastatin Calcium (Atorvastatin 40 Mg Tab) 40 mg PO BEDTIME [facility] Last Admin: 03/20/22 20:45 Dose: 40 mg Dicyclomine HCl (Dicyclomine Hcl 10 Mg Cap) 20 mg PO QID [facility] Last Admin: 03/20/22 20:45 Dose: 20 mg Ergocalciferol (Drisdol (Vitamin D=Ergocalciferol) 99330 Unit Cap) 50,000 unit PO Q7D@0900 [facility] Last Admin: 03/19/22 09:00 Dose: Not Given Heparin Sodium (Porcine) (Heparin 1,000 Unit/Ml Vial) 3,000 unit IV EVERY HD PRN PRN Reason: Prevent Lines Clotting Last Admin: 03/18/22 14:57 Dose: 3,000 unit Hydralazine HCl (Hydralazine Hcl 10 Mg Tablet) 10 mg PO Q4HP PRN PRN Reason: blood pressure over 160 Last Admin: 03/20/22 17:18 Dose: 10 mg Albumin Human (Albumin 25%) 50 mls @ 100 mls/hr IV EVERY HD [facility] Insulin Glargine (Insulin Glargine 100 Unit/Ml) 20 unit SQ BEDTIME [facility] Last Admin: 03/20/22 20:46 Dose: 20 unit Insulin Human Regular (Insulin -Regular Human 50 Unit/0.5 Ml Ml) 0 unit SQ ACHS [facility]; Protocol Last Admin: 03/20/22 20:46 Dose: 2 unit Losartan Potassium (Losartan Potassium 50 Mg Tablet) 50 mg PO BID [facility] Last Admin: 03/20/22 20:46 Dose: 50 mg Mannitol (Mannitol 25% 12.5 Gm/50 Ml Vial) 12.5 gm IV EVERY HD PRN PRN Reason: Titrate to SBP (MUST DEFINE) Metoprolol Tartrate (Metoprolol Tar 25 Mg Tab) 12.5 mg PO BID 6AM 6PM [facility] Last Admin: 03/20/22 17:17 Dose: 12.5 mg Nifedipine (Nifedipine Xl 90 Mg Tablet) 90 mg PO DAILY [facility] Last Admin: 03/20/22 05:15 Dose: 90 mg Ondansetron HCl (Ondansetron 4 Mg/2 Ml Vial) 4 mg IV Q6HP PRN PRN Reason: NAUSEA / VOMITING Last Admin: 03/18/22 19:50 Dose: 4 mg Pantoprazole Sodium ([facility]t) [facility] Protocol Last Admin: 03/20/22 05:14 Dose: 40 mg Ropinirole HCl (Ropinirole Hcl 1 Mg Tab) 4 mg PO DAILY [facility] Last Admin: 03/20/22 08:54 Dose: Not Given Sevelamer Carbonate (Sevelamer Carbonate 800 Mg Tablet) 800 mg PO TIDWM [facility] Last Admin: 03/20/22 17:17 Dose: 800 mg Sodium Chloride (Flush Normal Saline 10 Ml) 10 ml IV BID [facility] Last Admin: 03/20/22 20:46 Dose: 10 ml Tizanidine HCl (Tizanidine 4 Mg Tablet) 4 mg PO BEDTIME [facility] Last Admin: 03/20/22 20:45 Dose: 4 mg Assessment/ Plan: Nephrology No dyspnea No chest pain Feeling better No acute events overnight Vitals, medications, blood work and imaging reviewed in the chart. General: Alert, Oriented x3, Cooperative HEENT: Atraumatic Neck: Supple Respiratory: Clear to auscultation bilaterally Cardiovascular: Regular rate/rhythm, Edema Gastrointestinal: Soft and benign, Non-distended Musculoskeletal: No clubbing, No contractures Integumentary: No rashes, No cyanosis Neurological: Normal speech Laboratory Data (last 24 hrs) 03/18/22 07:20: PT 12.6 H, INR 1.15 03/18/22 07:20: WBC 6.20, Hgb 10.2 L, Hct 30.8 L, Plt Count 85 L 03/18/22 07:20: Sodium 138, Potassium 3.6, BUN 72 H, Creatinine 9.64 H*, Glucose 90, Magnesium 2.1, Total Bilirubin 0.8, AST 15, ALT 19, Alkaline Phosphatase 132 H, Lipase 502 H Conclusions/Impression: ESRD on HD -HD TIW HTN with CKD/ CHF -Continue Nifedipine and Losartan Diastolic CHF, chronic -HD with UF today -Low sodium diet DM II with CKD & Polyneuropathy -RISS Anemia in CKD -Retacrit PRN CKD MBD -Continue Ergo -Continue Renvela Syncopal episode of unclear etiology -Telemetry -Serial troponins -Cath with Multi-vessel CAD; CABG recommended Case reviewed with Dr. Monzon Transfer planned for CABG
[2022-03-21 04:16] LABS: Absolute Lymphocytes (CBC) 0.7 K/uL (0.7-4.9); Lymphocytes % 16.3 % (15.3-44.8); MCV 88.8 fL (80-100); MPV 7.8 fL (7.6-11.3); RBC Red Blood Cell Count 3.38 M/uL (4.33-5.43)
[2022-03-21 04:45] LABS: Potassium 4.3 mmol/L (3.5-5.1)
[2022-03-21] MEDS: PANTOPRAZOLE 40MG TABLET PO SCH (06:05)
[2022-03-21] MEDS: METOPROLOL TAR 25 MG TAB PO SCH ×2 (06:06→16:28)
[2022-03-21] MEDS: INSULIN -REGULAR HUMAN 50 UNIT/0.5 ML ML SQ SCH ×4 (07:30→21:00)
--- NOTE | 2022-03-21 07:36 | ECHO ---
HEIGHT: 5 ft 6 in WEIGHT: 176 lb 0 oz DATE OF STUDY: 03/20/[address]: Patrick Hernandez 2-DIMENSIONAL: YES M.MODE: YES DOPPLER: YES COLOR FLOW: YES TDS: PORTABLE: YES DEFINITY: BUBBLE STUDY: DIAGNOSIS: SYNCOPE CARDIAC HISTORY: CATHERIZATION: YES SURGERY: NO PROSTHETIC VALVE: NO PACEMAKER: NO MEASUREMENTS (cm) DIASTOLIC (NORMALS) SYSTOLIC (NORMALS) IVSd 1.4 (0.6-1.2) LA Diam 3.9 (1.9-4.0) LVEF 57% LVIDd 4.8 (3.5-5.7) LVIDs 3. (2.0-3.5) %FS 30% LVPWd 1.4 (0.6-1.2) Ao Diam 2.3 (2.0-3.7) 2 DIMENSIONAL ASSESSMENT: RIGHT ATRIUM: NORMAL LEFT ATRIUM: ENLARGED RIGHT VENTRICLE: NORMAL LEFT VENTRICLE: LEFT VENTRICULAR HYPERTROPHY (MODERATE) TRICUSPID VALVE: MILD TRICUSPID REGURGITATION MITRAL VALVE: MITRAL ANNULAR CALCIFICATION (SEVERE) PULMONIC VALVE: MILD PULMONIC INSUFFICIENCY AORTIC VALVE: THICKENED, NO AORTIC STENOSIS PERICARDIAL EFFUSION: NONE AORTIC ROOT: NORMAL LEFT VENTRICULAR WALL MOTION: NORMAL DOPPLER/COLOR FLOW: SEE BELOW COMMENTS: 1. NORMAL LEFT VENTRICULAR EJECTION FRACTION 55-60% 2. NORMAL WALL MOTION 3. MILD TRICUSPID REGURGITATION, MILD PULMONIC INSUFFICIENCY 4. SEVERE MITRAL ANNULAR CALCIFICATION WITH MILD MITRAL STENOSIS AND MILD MITRAL REGURGITATION 5. DIASTOLIC DYSFUNCTION 6. ELEVATED FILLING PRESSURE AND RIGHT ATRIAL PRESSURE IS GREATER THAN 20 mmHg 7. LEFT ATRIAL ENLARGEMENT 8. MODERATE CONCENTRIC LEFT VENTRICULAR HYPERTROPHY TECHNOLOGIST: HUMBLE HICKEY
[2022-03-21] MEDS: SEVELAMER CARBONATE 800 MG TABLET PO SCH ×3 (08:23→16:03)
[2022-03-21] MEDS: ASPIRIN 81 MG CHEWABLE TABLET PO SCH (08:23)
[2022-03-21] MEDS: NIFEDIPINE XL 90 MG TABLET PO SCH (08:23)
[2022-03-21] MEDS: ROPINIROLE HCL 1 MG TAB PO SCH (08:23)
[2022-03-21] MEDS: DICYCLOMINE HCL 10 MG CAP PO SCH ×4 (08:24→22:20)
[2022-03-21] MEDS: LOSARTAN POTASSIUM 50 MG TABLET PO SCH ×2 (08:27→22:20)
[2022-03-21] MEDS: HYDRALAZINE HCL 10 MG TABLET PO PRN ×2 (11:25→22:20)
[2022-03-21 16:20] VITALS: BP 198/76; TEMP 97.6
[2022-03-21 16:22] VITALS: O2SAT 94
--- NOTE | 2022-03-21 20:11 | PN ---
Date of Progress Note: 03/21/2022 Subjective: Seen by bedside. No chest pain. Review of Systems: No chest pain, shortness of breath, orthopnea, or cough. No nausea, vomiting, or diarrhea. All othe r systems reviewed and they were negative. Physical Examination: Vital Signs: Reviewed. Head And Neck: Pupils are equal and reactive to light. Intact eye movements. No JVD. No cervical lymphadenopathy. Neck is supple. Thyroid is not enlarged. Lungs: Clear to auscultation bilaterally. No rhonchi, wheezing, or crackles. No accessory muscle u se. Heart: Regular rate and rhythm. No extra sounds. Abdomen: Soft, nontender. Bowel sounds positive. No organomegaly. No masses or hernia. No rigidi ty or rebound. Extremities: No clubbing or cyanosis. Intact pulses. Skin: No rash. Neurologic: Alert, awake, and oriented x3. No acute focal deficits appreciated. Investigation: Labs reviewed. Assessment/recommendation: 1.Severe multivessel coronary artery disease. I await on transfer for coronary artery bypass surger y. 2.Advanced kidney failure. Continue dialysis. The patient's LVEDP during the coronary angiogram was high. I recommend further fluid removal during dialysis. 3.Dyslipidemia. Continue statin. SR/MODL Voice ID: [id number] Report ID: [id number]
--- NOTE | 2022-03-21 20:12 | P.PN ---
Subjective Date of Service: 03/21/22 Chief Complaint: Syncope No acute events overnight. He underwent a left heart cath yesterday, which revealed severe multivessel coronary artery disease. Dr. Pak has recommended transfer to [facility] for CABG vs PCI. Currently pending bed assignment. Review of Systems 10-point ROS is otherwise unremarkable Cardiovascular: Chest Pain Physical Examination - Vital Signs Temperature: 97.6 F Blood Pressure: 198/76 Pulse: 75 Respirations: 16 Pulse Ox (%): 94 Assessment And Plan - Plan - Physical Exam General: Alert, In no apparent distress, Oriented x3 HEENT: Atraumatic, Mucous membr. moist/pink, Sclerae nonicteric Neck: JVD not distended Respiratory: Clear to auscultation bilaterally, Normal air movement Cardiovascular: Regular rate/rhythm, Normal S1 S2, Edema (trace BLE) Gastrointestinal: Soft and benign, Non-distended Musculoskeletal: No clubbing Integumentary: No rashes Neurological: Normal speech, Normal affect # Acute on Chronic Decompensated Diastolic Congestive Heart Failure with Preserved Ejection Fraction # End-Stage Renal Disease on MWF iHD # Anemia and Thrombocytopenia likely secondary to ESRD - Consult Cardiology and spoke with Dr. Pak - recommendations appreciated - Consulted Nephrology and spoke with Dr. Mccoy - recommendations appreciated - Volume removal to be performed via hemodialysis - Daily weights - Strict I/O - Cardiac diet, 1.5 L fluid restriction, 2 g Na restriction # Severe Multi-vessel Coronary Artery Disease complicated by Non-ST Segment Elevation Myocardial Infarction - Evaluation thus far: - EKG: reportedly without STEMI criteria, trend - Serial troponin = 198.4 -> 222.6 -> 181.1 - Management plan: - Consult Cardiology and spoke with Dr. Pak - recommendations appreciated - Nuclear stress test = "Large fixed perfusion defects apical, inferior and lateral left ventricle myocardium likely infarction. Small reversible perfusion defect septal left ventricular myocardium may indicate stress-induced ischemia " - LHC = severe multivessel CAD - Transfer initiated to [facility] - awaiting acceptance - Continue home aspirin, losartan - Continue atorvastatin, metoprolol # Syncope, concern for Cardiac Etiology Differential diagnoses include, but are not limited to, vasovagal syncope, orthostatic hypotension, cardiac etiology (i.e. arrhythmia, valvulopathy), and neurogenic etiologies. - Orthostatic vital signs Telemetry - Serial troponin = 198.4 -> 222.6 -> 181.1 - Transthoracic echocardiogram = "1. normal left ventricular ejection fraction 55-60% 2. normal wall motion 3. mild tricuspid regurgitation, mild pulmonic insufficiency 4. severe mitral annular calcification with mild mitral stenosis and mild mitral regurgitation 5. diastolic dysfunction 6. elevated filling pressure and right atrial pressure is greater than 20 mmhg 7. left atrial enlargement 8. moderate concentric left ventricular hypertrophy" # Type II Diabetes Mellitus - Continue home insulin glargine + correction scale insulin # Hypertension - Continue home losartan, nifedipine # Generalized Anxiety Disorder - Continue home tizanidine, PRN alprazolam # Restless Leg Syndrome - Continue home ropinirole # Gastroesophageal Reflux Disease - Continue home pantoprazole Dennys Monzon M.D.
--- NOTE | 2022-03-21 21:48 | P.DS ---
Admission Date: 03/19/22 Discharge Date: 03/21/22 Disposition: [facility] Discharge Condition: FAIR Reason for Admission: Syncope Procedures: Stress test 03/19/2022 FINDINGS: Large area of diminished radiotracer uptake involves the apical, inferior and lateral left ventricular myocardium. This is seen on rest and stress images. Small area of diminished radiotracer uptake involves the septal left ventricular myocardium on stress images. This demonstrates normal uptake on rest images The left ventricular ejection fraction equals 50% IMPRESSION: Large fixed perfusion defects apical, inferior and lateral left renetta tricle myocardium likely infarction. Small reversible perfusion defect septal left ventricular myocardium may indicate stress-induced ischemia Carotid artery ultrasound 03/19/2022 FINDINGS: The velocity of the right internal carotid artery equals 75 cm/sec. The right ICA/CCA ratio 1 The velocity of the left internal carotid artery equals 87 cm/sec. The left ICA/CCA ratio 1.1 Mild plaque is present within the carotid arteries. The vertebral arteries demonstrate antegrade flow IMPRESSION: Mild plaque within the carotid arteries without evidence of a hemodynamically significant stenosis NASCET criteria used. Mild 0-49% stenosis Moderate 50-69% stenosis Severe 70-99% stenosis Echocardiogram 03/20/2022 COMMENTS: 1. NORMAL LEFT VENTRICULAR EJECTION FRACTION 55-60% 2. NORMAL WALL MOTION 3. MILD TRICUSPID REGURGITATION, MILD PULMONIC INSUFFICIENCY 4. SEVERE MITRAL ANNULAR CALCIFICATION WITH MILD MITRAL STENOSIS AND MILD MITRAL REGURGITATION 5. DIASTOLIC DYSFUNCTION 6. ELEVATED FILLING PRESSURE AND RIGHT ATRIAL PRESSURE IS GREATER THAN 20 mmHg 7. LEFT ATRIAL ENLARGEMENT 8. MODERATE CONCENTRIC LEFT VENTRICULAR HYPERTROPHY Heart cath 03/20/2022 Findings: 1. Left main; large and normal. 2. LAD; proximal, severe, heavily calcified, 80% to 90% stenosis, very ostial and also involves the diagonal branch takeoff, which is a large branch. Then, the LAD becomes normal, large, wraps around the apex. Diagonal branches appear to be normal. 3. Left circumflex; moderate-sized vessel with mid 80% and then the OM1 takes off and then after the OM1 takes off, it becomes 90% stenosed. The OM1 in the proximal segments 99% stenosis with LEELEE 1 flow. 4. RCA; large and dominant and it is normal. 5. Elevated LVEDP at 28 mmHg. OPERATIVE REPORT (Continued) NAME: MARTY BASS JR CC: Dennys Monozn MD; Senthil Pak OPERATIVE REPORT MARTY BASS JR / Report: [id number] Page 2of 2 Conclusion: 1. Severe multivessel disease. 2. Elevated LVEDP. Recommendation: Bypass. Brief History of Present Illness: H&P Patient is a 46-year-old male with a past medical history significant for anxiety disorder, ESRD, DM 2, hypertension who presents with complaint of syncope while at dialysis today. Patient reported that during his dialysis session he suddenly started having episodes of lightheadedness and dizziness. Shortly after patient passed out and Patient cannot not remember events that transpired until when he was picked up by EMS before patient regained consciousness. Patient reported that he had a near syncopal experience 8 days ago and had to quickly sit down. Patient denies any other signs or symptoms. Symptoms are aggravated or relieved by nothing. Patient was brought to the hospital for medical evaluation Hospital Course: # Acute on Chronic Decompensated Diastolic Congestive Heart Failure with Preserved Ejection Fraction # End-Stage Renal Disease on MWF iHD # Anemia and Thrombocytopenia likely secondary to ESRD - Consult Cardiology and spoke with Dr. Pak - recommendations appreciated - Consulted Nephrology and spoke with Dr. Mccoy - recommendations appreciated, last had dialysis evening of 03/21/2022 - Volume removal to be performed via hemodialysis - Daily weights - Strict I/O - Cardiac diet, 1.5 L fluid restriction, 2 g Na restriction # Severe Multi-vessel Coronary Artery Disease complicated by Non-ST Segment Elevation Myocardial Infarction - Evaluation thus far: - EKG: reportedly without STEMI criteria, trend - Serial troponin = 198.4 -> 222.6 -> 181.1 - Management plan: - Consult Cardiology and spoke with Dr. Pak - recommendations appreciated - Nuclear stress test = "Large fixed perfusion defects apical, inferior and lateral left ventricle myocardium likely infarction. Small reversible perfusion defect septal left ventricular myocardium may indicate stress-induced ischemia " - LHC = severe multivessel CAD- Cardiology recommends bypass surgery - Transfer initiated to [facility] - accepted by [facility] hospitalist Dr. Nithin Chaudhry for transfer and further cardiac evaluation/intervention. - Continue home aspirin, losartan - Continue atorvastatin, metoprolol # Syncope, concern for Cardiac Etiology -See above # Type II Diabetes Mellitus - Continue home insulin glargine + correction scale insulin # Hypertension - Continue home losartan, nifedipine # Generalized Anxiety Disorder - Continue home tizanidine, PRN alprazolam # Restless Leg Syndrome - Continue home ropinirole # Gastroesophageal Reflux Disease - Continue home pantoprazole Vital Signs/Physical Exam: Temp Pulse Resp BP Pulse Ox 97.6 F 75 16 198/76 H 94 03/21/22 20:20 03/21/22 20:20 03/21/22 20:20 03/21/22 20:20 03/21/22 20:20 Laboratory Data at Discharge: WBC 4.60 K/uL (4.3-10.9) 03/21/22 03:46 Hgb 10.1 g/dL (13.6-17.9) L 03/21/22 03:46 Hct 30.0 % (39.6-49.0) L 03/21/22 03:46 Plt Count 97 K/uL (152-406) L 03/21/22 03:46 PT 12.6 SECONDS (9.5-12.5) H 03/18/22 07:20 INR 1.15 03/18/22 07:20 Sodium 140 mmol/L (136-145) 03/21/22 03:46 Potassium 4.3 mmol/L (3.5-5.1) D 03/21/22 03:46 BUN 43 mg/dL (7-18) H 03/21/22 03:46 Creatinine 8.13 mg/dL (0.70-1.30) H* 03/21/22 03:46 Glucose 199 mg/dL (74-106) H 03/21/22 03:46 Phosphorus 4.8 mg/dL (2.5-4.9) 03/20/22 03:45 Magnesium 2.1 mg/dL (1.6-2.4) 03/18/22 07:20 Total Bilirubin 0.8 mg/dL (0.2-1.0) 03/18/22 07:20 AST 15 U/L (15-37) 03/18/22 07:20 ALT 19 U/L (16-61) 03/18/22 07:20 Alkaline Phosphatase 132 U/L (45-117) H 03/18/22 07:20 Lipase 502 U/L (73-393) H 03/18/22 07:20 Home Medications: ALPRAZolam [Alprazolam] 1 mg PO DAILYPRN PRN 07/15/20 Insulin Aspart [Novolog Penfill] 20 unit SQ TIDWM 09/29/19 Sevelamer Carbonate [Renvela*] 3 tab PO TIDWM 09/29/19 Nifedipine [Nifedipine ER] 90 mg PO DAILY 01/15/21 Ropinirole HCl 4 mg PO BEDTIME 01/15/21 Tizanidine HCl [Zanaflex] 4 mg PO BEDTIME 01/15/21 Aspirin [Aspirin EC 81 MG] 81 mg PO DAILY 12/18/21 Dicyclomine [Bentyl] 20 mg PO QID 12/18/21 Insulin Glargine,Hum.rec.anlog [Basaglar Kwikpen U-100] 20 unit SQ BEDTIME 12/18/21 Followup: Senthil Pak MD [ACTIVE - CAN ADMIT] - Beverly James PAC [Primary Care Provider] -
--- NOTE | 2022-03-21 22:04 | P.PN ---
Date of Service: 03/21/22 Vital Signs Temp Pulse Resp BP Pulse Ox 97.6 F 75 16 198/76 H 94 03/21/22 20:20 03/21/22 20:20 03/21/22 20:20 03/21/22 20:20 03/21/22 20:20 Medications Acetaminophen (Acetaminophen 325 Mg Tablet) 650 mg PO Q6H PRN PRN Reason: TEMP > 100' F Hydrocodone Bitart/Acetaminophen (Hydrocodone/Apap 5/325 Mg Tab) 1 tab PO Q6H PRN PRN Reason: Pain scale 5-7 (Moderate) Alprazolam (Alprazolam 1 Mg Tablet) 1 mg PO DAILYPRN PRN PRN Reason: restless leg Aspirin (Aspirin 81 Mg Chewable Tablet) 81 mg PO DAILY [facility] Last Admin: 03/21/22 08:23 Dose: 81 mg Atorvastatin Calcium (Atorvastatin 40 Mg Tab) 40 mg PO BEDTIME [facility] Last Admin: 03/20/22 20:45 Dose: 40 mg Dicyclomine HCl (Dicyclomine Hcl 10 Mg Cap) 20 mg PO QID [facility] Last Admin: 03/21/22 16:03 Dose: 20 mg Ergocalciferol (Drisdol (Vitamin D=Ergocalciferol) 08423 Unit Cap) 50,000 unit PO Q7D@0900 [facility] Last Admin: 03/19/22 09:00 Dose: Not Given Heparin Sodium (Porcine) (Heparin 1,000 Unit/Ml Vial) 3,000 unit IV EVERY HD PRN PRN Reason: Prevent Lines Clotting Last Admin: 03/18/22 14:57 Dose: 3,000 unit Hydralazine HCl (Hydralazine Hcl 10 Mg Tablet) 10 mg PO Q4HP PRN PRN Reason: blood pressure over 160 Last Admin: 03/21/22 11:25 Dose: 10 mg Albumin Human (Albumin 25%) 50 mls @ 100 mls/hr IV EVERY HD [facility] Insulin Glargine (Insulin Glargine 100 Unit/Ml) 20 unit SQ BEDTIME [facility] Last Admin: 03/20/22 20:46 Dose: 20 unit Insulin Human Regular (Insulin -Regular Human 50 Unit/0.5 Ml Ml) 0 unit SQ ACHS [facility]; Protocol Last Admin: 03/21/22 16:03 Dose: 2 unit Losartan Potassium (Losartan Potassium 50 Mg Tablet) 50 mg PO BID [facility] Last Admin: 03/21/22 08:27 Dose: 50 mg Mannitol (Mannitol 25% 12.5 Gm/50 Ml Vial) 12.5 gm IV EVERY HD PRN PRN Reason: Titrate to SBP (MUST DEFINE) Metoprolol Tartrate (Metoprolol Tar 25 Mg Tab) 12.5 mg PO BID 6AM 6PM [facility] Last Admin: 03/21/22 16:28 Dose: 12.5 mg Nifedipine (Nifedipine Xl 90 Mg Tablet) 90 mg PO DAILY [facility] Last Admin: 03/21/22 08:23 Dose: 90 mg Ondansetron HCl (Ondansetron 4 Mg/2 Ml Vial) 4 mg IV Q6HP PRN PRN Reason: NAUSEA / VOMITING Last Admin: 03/18/22 19:50 Dose: 4 mg Pantoprazole Sodium ([facility] 40mg [facility]t) [facility] Last Admin: 03/21/22 06:05 Dose: 40 mg Ropinirole HCl (Ropinirole Hcl 1 Mg Tab) 4 mg PO DAILY [facility] Last Admin: 03/21/22 08:23 Dose: 4 mg Sevelamer Carbonate (Sevelamer Carbonate 800 Mg Tablet) 800 mg PO TIDWM [facility] Last Admin: 03/21/22 16:03 Dose: 800 mg Sodium Chloride (Flush Normal Saline 10 Ml) 10 ml IV BID [facility] Last Admin: 03/21/22 08:24 Dose: 10 ml Tizanidine HCl (Tizanidine 4 Mg Tablet) 4 mg PO BEDTIME [facility] Last Admin: 03/20/22 20:45 Dose: 4 mg Assessment/ Plan: Nephrology No dyspnea No chest pain Feeling better No acute events overnight Vitals, medications, blood work and imaging reviewed in the chart. General: Alert, Oriented x3, Cooperative HEENT: Atraumatic Neck: Supple Respiratory: Clear to auscultation bilaterally Cardiovascular: Regular rate/rhythm, Edema Gastrointestinal: Soft and benign, Non-distended Musculoskeletal: No clubbing, No contractures Integumentary: No rashes, No cyanosis Neurological: Normal speech Laboratory Data (last 24 hrs) 03/18/22 07:20: PT 12.6 H, INR 1.15 03/18/22 07:20: WBC 6.20, Hgb 10.2 L, Hct 30.8 L, Plt Count 85 L 03/18/22 07:20: Sodium 138, Potassium 3.6, BUN 72 H, Creatinine 9.64 H*, Glucose 90, Magnesium 2.1, Total Bilirubin 0.8, AST 15, ALT 19, Alkaline Phosphatase 132 H, Lipase 502 H Conclusions/Impression: ESRD on HD -HD TIW HTN with CKD/ CHF -Continue Nifedipine and Losartan Diastolic CHF, chronic -HD with UF today -Low sodium diet DM II with CKD & Polyneuropathy -RISS Anemia in CKD -Retacrit PRN CKD MBD -Continue Ergo -Continue Renvela Syncopal episode of unclear etiology -Telemetry -Serial troponins -Cath with Multi-vessel CAD; CABG recommended Case reviewed with Dr. Monzon Transfer planned for CABG
[2022-03-21] MEDS: ATORVASTATIN 40 MG TAB PO SCH (22:20)
[2022-03-21] MEDS: TIZANIDINE 4 MG TABLET PO SCH (22:20)
[2022-03-21] MEDS: INSULIN GLARGINE 100 UNIT/ML SQ SCH (22:24)
== END 2022-03-21 23:59 | disposition short-term general hospital (02) | DRG 280 ==
LOC: ER 06:26 → ERHOLD 12:09 → 4TH 13:19 → OBSVTOIN 03-19 18:39
PROVIDERS: ADMIT Internal Medicine; ATTEND Internal Medicine
PROC: 5A1D70Z Performance of Urinary Filtration, Intermittent, Less than 6 Hours Per Day (ICD-10-PCS; 2022-03-18)
PROC: 4A023N7 Measurement of Cardiac Sampling and Pressure, Left Heart, Percutaneous Approach (ICD-10-PCS; principal; 2022-03-20)
PROC: B2111ZZ Fluoroscopy of Multiple Coronary Arteries using Low Osmolar Contrast (ICD-10-PCS; 2022-03-20)
DX: I13.2 Hypertensive heart and chronic kidney disease with heart failure and with stage 5 chronic kidney disease, or end stage renal disease (principal); I50.33 Acute on chronic diastolic (congestive) heart failure; I21.A1 Myocardial infarction type 2; N18.6 End stage renal disease; E11.22 Type 2 diabetes mellitus with diabetic chronic kidney disease; E11.42 Type 2 diabetes mellitus with diabetic polyneuropathy; D63.1 Anemia in chronic kidney disease; G25.81 Restless legs syndrome; E78.5 Hyperlipidemia, unspecified; F41.1 Generalized anxiety disorder; D69.6 Thrombocytopenia, unspecified; K21.9 Gastro-esophageal reflux disease without esophagitis; I25.10 Atherosclerotic heart disease of native coronary artery without angina pectoris; R77.8 Other specified abnormalities of plasma proteins; Z99.2 Dependence on renal dialysis; Z95.9 Presence of cardiac and vascular implant and graft, unspecified; Z79.4 Long term (current) use of insulin; Z79.82 Long term (current) use of aspirin; Z79.899 Other long term (current) drug therapy; Z20.822 Contact with and (suspected) exposure to COVID-19
CPT/HCPCS: 36415; 71045; 76937; 78452; 80048; 80076; 82947; 83690; 83735; 83880; 84100; 84484; 85025; 85610; 87811; 90935; 93005; 93017; 93306; 93458; 93880; 99285; A9500; C1893; G0378; J0461; J1644; J1815; J2001; J2250; J2405; J2785; J3010; J3480; J7050; Q9966

== ENCOUNTER 2022-04-23 16:58 | Inpatient (IN) | payer OTHER ==
--- OUTSIDE RECORDS SUMMARY | 2022-04-23 17:11 | XMS REPORT | Continuity of Care Document ---
:1975 Author Organization [facility] t Address [address] [place] [address] Dr. [address]. [address] [place] [address] Care Team Providers Name Role Phone Jennifer James Primary Care Physician MARIPOSA TEAGUE K.HMena Attending Clinician Unavailable Mariposa Teague MD KMenaHMena Attending Clinician Doctor Unassigned, [place] Attending Clinician Unavailable Nithin Chaudhry Attending Clinician Unavailable ELISE RG Attending Clinician Unavailable ELISE RG Attending Clinician Unavailable DORI NORIEGA Attending Clinician Unavailable Elise Rg MD Attending Clinician Erin Zelaya MD Attending Clinician Izzy Mcelroy MD Attending Clinician [phone] 1, Adc Cardio Fac Room Attending Clinician Unavailable Pc, Adc Echo Room 1 - Attending Clinician Unavailable Sarah Lewis MD Attending Clinician Vtc-Lab Attending Clinician Unavailable ERIN ZELAYA Attending Clinician Unavailable Nithin Chaudhry Admitting Clinician Unavailable Payers Payer Name Policy Type Policy Number Effective Date Expiration Date Manuel stubbs MEDICARE PART A \\T\\ [id number] 2012 B 00:00:00 COMMERCIAL [id number] 2016 NON-CONTRACT 00:00:00 GENERIC Problems Condition Condition Condition Status Onset Resolution Last Treating Co mments Source Name Details Category Date Date Treatment Clinician Date Obesity Obesity Disease Active Univers (BMI (BMI 5-09 ity of 30-39.9) 30-39.9) 00:00: [place] [facility] ESRD (end ESRD (end Disease Active [facility]: Medical disease) disease) 00 Center on on dialysis dialysis Pre-transp Pre-transp Disease Active [facility] 10[facility]02 [facility] evaluation evaluation 00:00: Me dical for for [...] nivers on on 03-17 ity of 00:00: [address] Branch Cataract Cataract Disease Active Overview: Un gregg 03-17 Formattin ity of 00:00: g of this [place] note Medical might be Branch different from the original. fixed bilateral ly DM DM Disease Active Univers (diabetes (diabetes 03-17 [place] of mellitus) mellitus[place] Nephropath Nephropath Disease Active U nivers y y ity of 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 Allergies, Adverse Reactions, Alerts Allergy Allergy Status Severity Reaction(s) Onset Inactive Treating Comm ents Source Name Type Date Date Clinician No Known DA Active U [facility] 1-07 Clear Allergie 00:00: Eduardo s 00 [facility] Prometha Propensi Active [facility] 09-12 [facility] adverse 00:00: Medical reaction 00 [facility] PROMETHA DRUG Active Low Anxiety Univers ZINE HCL INGREDI 10-08 ity of 00:00: [place] [address] [place] [address] Prometha Propensi Active Anxiety "jumpy" Univ ers zine Hcl ty to 10-08 ity of adverse 00:00: [place] reaction 00 [facility] DA Active AL AGITATION [facility] zine HCl 5-02 Clear 00:00: Eduardo 00 [facility] ondanset DA Active U PT STATED HE HC A tyler HCl IS 5-02 Clear GETTING,RASH 00:00: Eduardo .AND N/V.HE Regio na TAKES l [facility]NA[facility]YL[facility] Social History Social Habit Start Date Stop Date Quantity Comments Source History [facility] University o f Alcohol Frequency [facility] edical Branch History [facility] University o f Alcohol Std [place] [facility] Drinks Branch History [facility] o f Alcohol Binge [place] Medic al [address] Exposure to 2022-04-01 2022-04-11 Not sure [facility] SARS-CoV-2 00:00:00 09:52:00 [facility] (event) [address] Tobacco use and 2021-12-19 2021-12-19 Smokeless tobacco Un iversity of exposure 00:00:00 00:00:[address] [facility] Alcohol intake 2021-12-19 2021-12-19 Ex-drinker University 00:00:00 00:00:00 (finding) [facility] Alcohol Comment 2016-10-08 2016-10-08 quit 4-5 years Unive rsity of 00:00:00 00:00:[address] [facility] Sex Assigned At [address] [address] Briseida kes 00:00:00 00:00:00 Medical [employer] Smoking Status Start Date Stop Date Source Never smoked tobacco [facility] Medications Ordered Filled Start Stop Current Ordering Indication Dosage Frequency Signature Comments Components Source Medication Medication Date Date Medication? Clinician (SIG) Name Name ALPRAZolam Yes .25mg Take 0.25 U nivers 0.25 mg 1-26 mg by ity of tablet 10:27: mouth 2 [place] [address] (two) Medical times Branch daily. Insulin 2023-0 Yes 20U inject 20 Unive rs Lispro, 1-26 Units ity of Human, 100 10:27: under [place] unit/mL 05 skin 2 Medical cartridge (two) Branch times daily. NIFEdipine 2023-0 Yes 90mg Take 90 mg U nivers CC 90 mg SR 1-26 by mouth 2 it y of tablet 10:27: (two) [place] [address] times Medical daily. Branch Insulin 2023-0 Yes 25U inject 25 Unive rs Glargine 1-26 Units ity of 100 unit/mL 10:27: under the [place] (3 mL) 05 skin. Medical injection Branch amLODIPine 3-0 Yes 10mg Take 10 mg U nivers 10 mg 1-26 by mouth ity of tablet 10:27: daily. [place] [address] Medical Branch aspirin 81 3-0 Yes 81mg Take 81 mg U nivers mg EC 1-26 by mouth ity of tablet 10:27: daily. [place] [address] Medical Branch sevelamer 3-0 Yes 800mg Take 800 Uni vers 800 mg 1-26 mg by ity of tablet 10:27: mouth 3 [place] [address] (three) Medical times Branch daily with meals. ALPRAZolam 3-0 Yes .25mg Take 0.25 U nivers 0.25 mg 1-26 mg by ity of tablet 10:27: mouth 2 [place] [address] (two) Medical times Branch daily. Insulin 2023-0 Yes 20U inject 20 Unive rs Lispro, 1-26 Units ity of Human, 100 10:27: [place] the [place] unit/mL 05 skin 2 Medical cartridge (two) Branch times daily. NIFEdipine 2023-0 Yes 90mg Take 90 mg U nivers CC 90 mg SR 1-26 by mouth 2 it y of tablet 10:27: (two) [place] [address] times Medical daily. Branch Insulin 2023-0 Yes 25U inject 25 Unive rs Glargine 1-26 Units ity of 100 unit/mL 10:27: under the [place] (3 mL) 05 skin. Medical injection Branch amLODIPine 2023-0 Yes 10mg Take 10 mg U nivers 10 mg 1-26 by mouth ity of tablet 10:27: daily. [place] 05 Medical Branch aspirin 81 3-0 Yes 81mg Take 81 mg U nivers mg EC 1-26 by mouth ity of tablet 10:27: daily. [address] Branch sevelamer 2023-0 Yes 800mg Take 800 Uni vers 800 mg 1-26 mg by ity of tablet 10:27: mouth 3 [place] [address] (three) Medical times Branch daily with meals. ALPRAZolam 2023-0 Yes .25mg Take 0.25 U nivers 0.25 mg 1-26 mg by ity of tablet 10:27: mouth 2 [place] [address] (two) Medical times Branch daily. Insulin 2023-0 Yes 20U inject 20 Unive rs Lispro, 1-26 Units ity of Human, 100 10:27: [place] the [place] unit/mL 05 skin 2 Medical cartridge (two) Branch times daily. NIFEdipine 3-0 Yes 90mg Take 90 mg U nivers CC 90 mg SR 1-26 by mouth 2 it y of tablet 10:27: (two) [place] [address] times Medical daily. Branch Insulin 3-0 Yes 25U inject 25 Unive rs Glargine 1-26 Units ity of 100 unit/mL 10:27: under the [place] (3 mL) 05 skin. Medical injection Branch amLODIPine 2022-0 Yes 10mg Take 10 mg U nivers 10 mg 1-26 by mouth ity of tablet 10:27: daily. [address] aspirin 81 3-0 Yes 81mg Take 81 mg U nivers mg EC 1-26 by mouth ity of tablet 10:27: daily. [address] sevelamer 3-0 Yes 800mg Take 800 Uni vers 800 mg 1-26 mg by ity of tablet 10:27: mouth 3 [place] [address] (three) Medical times Branch daily with meals. ALPRAZolam 2023-0 Yes .25mg Take 0.25 U nivers 0.25 mg 1-26 mg by ity of tablet 10:27: mouth 2 [place] [address] (two) Medical times Branch daily. Insulin 2023-0 Yes 20U inject 20 Unive rs Lispro, 1-26 Units ity of Human, 100 10:27: [place] unit/mL 05 skin 2 Medical cartridge (two) Branch times daily. NIFEdipine 2023-0 Yes 90mg Take 90 mg U nivers CC 90 mg SR 1-26 by mouth 2 it y of tablet 10:27: (two) [place] [address] times Medical daily. Branch Insulin 2023-0 Yes 25U inject 25 Unive rs Glargine 1-26 Units ity of 100 unit/mL 10:27: under the [place] (3 mL) 05 skin. Medical injection Branch amLODIPine 2022-0 Yes 10mg Take 10 mg U nivers 10 mg 1-26 by mouth ity of tablet 10:27: daily. [place] [address] Medical Branch aspirin 81 2022-0 Yes 81mg Take 81 mg U nivers mg EC 1-26 by mouth ity of tablet 10:27: daily. [place] [address] Medical Branch sevelamer 2022-0 Yes 800mg Take 800 Uni vers 800 mg 1-26 mg by ity of tablet 10:27: mouth 3 [place] [address] (three) Medical times Branch daily with meals. ALPRAZolam 2022-0 Yes .25mg Take 0.25 U nivers 0.25 mg 1-26 mg by ity of tablet 10:27: mouth 2 [place] [address] (two) Medical times Branch daily. Insulin 2022-0 Yes 20U inject 20 Unive rs Lispro, 1-26 Units ity of Human, 100 10:27: [place] the [place] unit/mL 05 skin 2 Medical cartridge (two) Branch times daily. NIFEdipine 2022-0 Yes 90mg Take 90 mg U nivers CC 90 mg SR - by mouth 2 it y of tablet 10:27: (two) [place] [address] times Medical daily. Branch Insulin 3-0 Yes 25U inject 25 Unive rs Glargine 1-26 Units ity of 100 unit/mL 10:27: under the [place] (3 mL) 05 skin. Medical injection Branch amLODIPine 2022-0 Yes 10mg Take 10 mg U nivers 10 mg 1-26 by mouth ity of tablet 10:27: daily. [place] [address] Medical Branch aspirin 81 3-0 Yes 81mg Take 81 mg U nivers mg EC 1-26 by mouth ity of tablet 10:27: daily. [place] [address] Medical Branch sevelamer 3-0 Yes 800mg Take 800 Uni vers 800 mg 1-26 mg by ity of tablet 10:27: mouth 3 [place] [address] (three) Medical times Branch daily with meals. ALPRAZolam 2023-0 Yes .25mg Take 0.25 U nivers 0.25 mg 1-26 mg by ity of tablet 10:27: mouth 2 [place] [address] (two) Medical times Branch daily. Insulin 2023-0 Yes 20U inject 20 Unive rs Lispro, 1-26 Units ity of Human, 100 10:27: [place] the [place] unit/mL 05 skin 2 Medical cartridge (two) Branch times daily. NIFEdipine 2023-0 Yes 90mg Take 90 mg U nivers CC 90 mg SR 1-26 by mouth 2 it y of tablet 10:27: (two) [place] times Medical daily. Branch Insulin 2023-0 Yes 25U inject 25 Unive rs Glargine 1-26 Units ity of 100 unit/mL 10:27: under the [place] (3 mL) 05 skin. Medical injection Branch amLODIPine 3-0 Yes 10mg Take 10 mg U nivers 10 mg 1-26 by mouth ity of tablet 10:27: daily. [place] [address] Medical Branch aspirin 81 2023-0 Yes 81mg Take 81 mg U nivers mg EC -26 by mouth ity of tablet 10:27: daily. [place] [address] Medical Branch sevelamer 3-0 Yes 800mg Take 800 Uni vers 800 mg 1-26 mg by ity of tablet 10:27: mouth 3 [place] [address] (three) Medical times Branch daily with meals. ALPRAZolam 3-0 Yes .25mg Take 0.25 U nivers 0.25 mg 1-26 mg by ity of tablet 10:27: mouth 2 [place] [address] (two) Medical times Branch daily. Insulin 2023-0 Yes 20U inject 20 Unive rs Lispro, 1-26 Units ity of Human, 100 10:27: under the [place] unit/mL 05 skin 2 Medical cartridge (two) Branch times daily. NIFEdipine 2023-0 Yes 90mg Take 90 mg U nivers CC 90 mg SR 1-26 by mouth 2 it y of tablet 10:27: (two) [place] [address] times Medical daily. Branch Insulin 2023-0 Yes 25U inject 25 Unive rs Glargine 1-26 Units ity of 100 unit/mL 10:27: under the [place] (3 mL) 05 skin. Medical injection Branch amLODIPine 2023-0 Yes 10mg Take 10 mg U nivers 10 mg 1-26 by mouth ity of tablet 10:27: daily. [address] Branch aspirin 81 3-0 Yes 81mg Take 81 mg U nivers mg EC 1-26 by mouth ity of tablet 10:27: daily. [address] Branch sevelamer 2023-0 Yes 800mg Take 800 Uni vers 800 mg 1-26 mg by ity of tablet 10:27: mouth 3 [place] [address] (three) Medical times Branch daily with meals. ALPRAZolam 2023-0 Yes .25mg Take 0.25 U nivers 0.25 mg 1-26 mg by ity of tablet 10:27: mouth 2 [place] [address] (two) Medical times Branch daily. Insulin 2023-0 Yes 20U inject 20 Unive rs Lispro, 1-26 Units ity of Human, 100 10:27: under the [place] unit/mL 05 skin 2 Medical cartridge (two) Branch times daily. NIFEdipine 2023-0 Yes 90mg Take 90 mg U nivers CC 90 mg SR 1-26 by mouth 2 it y of tablet 10:27: (two) [place] [address] times Medical daily. Branch Insulin 3-0 Yes 25U inject 25 Unive rs Glargine 1-26 Units ity of 100 unit/mL 10:27: under the [place] (3 mL) 05 skin. Medical injection Branch amLODIPine 3-0 Yes 10mg Take 10 mg U nivers 10 mg 1-26 by mouth ity of tablet 10:27: daily. [address] aspirin 81 3-0 Yes 81mg Take 81 mg U nivers mg EC 1-26 by mouth ity of tablet 10:27: daily. [address] Branch sevelamer 3-0 Yes 800mg Take 800 Uni vers 800 mg 1-26 mg by ity of tablet 10:27: mouth 3 [place] [address] (three) Medical times Branch daily with meals. ALPRAZolam 2023-0 Yes .25mg Take 0.25 U nivers 0.25 mg 1-26 mg by ity of tablet 10:27: mouth 2 [place] [address] (two) Medical times Branch daily. Insulin 2023-0 Yes 20U inject 20 Unive rs Lispro, 1-26 Units ity of Human, 100 10:27: under the [place] unit/mL 05 skin 2 Medical cartridge (two) Branch times daily. NIFEdipine 2023-0 Yes 90mg Take 90 mg U nivers CC 90 mg SR 1-26 by mouth 2 it y of tablet 10:27: (two) [place] [address] times Medical daily. Branch Insulin 3-0 Yes 25U inject 25 Unive rs Glargine 1-26 Units ity of 100 unit/mL 10:27: under the [place] (3 mL) 05 skin. Medical injection Branch amLODIPine 2022-0 Yes 10mg Take 10 mg U nivers 10 mg 1-26 by mouth ity of tablet 10:27: daily. [place] [address] Medical Branch aspirin 81 2022-0 Yes 81mg Take 81 mg U nivers mg EC 1-26 by mouth ity of tablet 10:27: daily. [place] [address] Medical Branch sevelamer 2022-0 Yes 800mg Take 800 Uni vers 800 mg 1-26 mg by ity of tablet 10:27: mouth 3 [place] [address] (three) Medical times Branch daily with meals. ALPRAZolam 2022-0 Yes .25mg Take 0.25 U nivers 0.25 mg 1-26 mg by ity of tablet 10:27: mouth 2 [place] [address] (two) Medical times Branch daily. Insulin 2022-0 Yes 20U inject 20 Unive rs Lispro, 1-26 Units ity of Human, 100 10:27: under the [place] unit/mL 05 skin 2 Medical cartridge (two) Branch times daily. NIFEdipine 2022-0 Yes 90mg Take 90 mg U nivers CC 90 mg SR -26 by mouth 2 it y of tablet 10:27: (two) [place] [address] times Medical daily. Branch Insulin 2022-0 Yes 25U inject 25 Unive rs Glargine 1-26 Units ity of 100 unit/mL 10:27: under the [place] (3 mL) 05 skin. Medical injection Branch amLODIPine 2022-0 Yes 10mg Take 10 mg U nivers 10 mg 1-26 by mouth ity of tablet 10:27: daily. [place] [address] Medical Branch aspirin 81 2022-0 Yes 81mg Take 81 mg U nivers mg EC 1-26 by mouth ity of tablet 10:27: daily. [place] [address] Medical Branch sevelamer 2022-0 Yes 800mg Take 800 Uni vers 800 mg 1-26 mg by ity of tablet 10:27: mouth 3 [place] [address] (three) Medical times Branch daily with meals. ALPRAZolam 2022-0 Yes .25mg Take 0.25 U nivers (XANAX) 9-26 mg by ity of 0.25 mg 14:03: mouth 2 [place] tablet 53 (two) Medical times Branch daily. ALPRAZolam 2022-0 Yes .25mg Take 0.25 U nivers (XANAX) 9-26 mg by ity of 0.25 mg 14:03: mouth 2 [place] tablet 53 (two) Medical times Branch daily. ALPRAZolam 2022-0 Yes .25mg Take 0.25 U nivers (XANAX) 9-26 mg by ity of 0.25 mg 14:03: mouth 2 [place] tablet 53 (two) Medical times Branch daily. ALPRAZolam 2022-0 Yes .25mg Take 0.25 U nivers (XANAX) 9-26 mg by ity of 0.25 mg 14:03: mouth 2 [place] tablet 53 (two) Medical times Branch daily. ALPRAZolam 2022-0 Yes .25mg Take 0.25 U nivers (XANAX) 9-26 mg by ity of 0.25 mg 14:03: mouth 2 [place] tablet 53 (two) Medical times Branch daily. Insulin 202-0 Yes 25U inject 25 Unive rs Glargine 9-26 Units ity of (BASAGLAR 14:03: under the [place] KWIKPEN 48 skin. Medical U-100 Branch INSULIN) 100 unit/mL (3 mL) injection Insulin 2021-0 Yes 25U inject 25 Unive rs Glargine 9-26 Units ity of (BASAGLAR 14:03: under the [place] KWIKPEN 48 skin. Medical U-100 Branch INSULIN) 100 unit/mL (3 mL) injection Insulin 2022-0 Yes 25U inject 25 Unive rs Glargine 9-26 Units ity of (BASAGLAR 14:03: under the [place] KWIKPEN 48 skin. Medical U-100 Branch INSULIN) 100 unit/mL (3 mL) injection Insulin 2022-0 Yes 25U inject 25 Unive [...] 2 it y of tablet 14:03: (two) [place] 42 times Medical daily. Branch NIFEdipine 2-0 Yes 90mg Take 90 mg U nivers CC 90 mg SR 9-26 by mouth 2 it y of tablet 14:03: (two) [place] 42 times Medical daily. Branch NIFEdipine 2-0 Yes 90mg Take 90 mg U nivers CC 90 mg SR 9-26 by mouth 2 it y of tablet 14:03: (two) [place] 42 times Medical daily. Branch NIFEdipine 2-0 Yes 90mg Take 90 mg U nivers CC 90 mg SR 9-26 by mouth 2 it y of tablet 14:03: (two) [place] 42 times Medical daily. Branch NIFEdipine 2-0 Yes 90mg Take 90 mg U nivers CC 90 mg SR 9-26 by mouth 2 it y of tablet 14:03: (two) [place] 42 times Medical daily. Branch amLODIPine 2021-0 Yes 10mg Take 10 mg U nivers 10 mg 9-26 by mouth ity of tablet 14:03: daily. [address] amLODIPine 2021-0 Yes 10mg Take 10 mg U nivers 10 mg 9-26 by mouth ity of tablet 14:03: daily. [address] amLODIPine 2-0 Yes 10mg Take 10 mg U nivers 10 mg 9-26 by mouth ity of tablet 14:03: daily. [address] amLODIPine 2-0 Yes 10mg Take 10 mg U nivers 10 mg 9-26 by mouth ity of tablet 14:03: daily. [address] amLODIPine 2-0 Yes 10mg Take 10 mg U nivers 10 mg 9-26 by mouth ity of tablet 14:03: daily. [address] aspirin 81 2-0 Yes 81mg Take 81 mg U nivers mg EC 9-26 by mouth ity of tablet 14:02: daily. [address] aspirin 81 2-0 Yes 81mg Take 81 mg U nivers mg EC 9-26 by mouth ity of tablet 14:02: daily. [place] [address] Medical Branch aspirin 81 2-0 Yes 81mg Take 81 mg U nivers mg EC 9-26 by mouth ity of tablet 14:02: daily. [place] [address] Medical Branch aspirin 81 2022-0 Yes 81mg Take 81 mg U nivers mg EC 9-26 by mouth ity of tablet 14:02: daily. [place] [address] Medical Branch aspirin 81 2022-0 Yes 81mg Take 81 mg U nivers mg EC 9-26 by mouth ity of tablet 14:02: daily. [place] [address] Medical Branch sevelamer 2022-0 Yes 800mg Take 800 Uni vers (RENVELA) 9-26 mg by ity of 800 mg 14:01: mouth 3 [place] tablet 56 (three) Medical times Branch daily with meals. sevelamer 2022-0 Yes 800mg Take 800 Uni vers (RENVELA) 9-26 mg by ity of 800 mg 14:01: mouth 3 [place] tablet 56 (three) Medical times Branch daily with meals. sevelamer 2022-0 Yes 800mg Take 800 Uni vers (RENVELA) 9-26 mg by ity of 800 mg 14:01: mouth 3 [place] tablet 56 (three) Medical times Branch daily with meals. sevelamer 2022-0 Yes 800mg Take 800 Uni vers (RENVELA) 9-26 mg by ity of 800 mg 14:01: mouth 3 [place] tablet 56 (three) Medical times Branch daily with meals. sevelamer 2022-0 Yes 800mg Take 800 Uni [...] Units ity of Human, 09:13: under the [place] (HUMALOG) 17 skin 2 Medical 100 unit/mL [...] by mouth ity of tablet 09:13: daily. [address] aspirin 81 2021-0 Yes 81mg Take 81 mg U nivers mg EC 1-13 by mouth ity of tablet 09:13: daily. [address] sevelamer 2021-0 Yes 800mg Take 800 Uni vers (RENVELA) 1-13 mg by ity of 800 mg 09:13: mouth 3 [place] tablet 17 (three) Medical times [address] daily with meals. ALPRAZolam 2021-0 Yes .25mg Take 0.25 U nivers (XANAX) 1-13 mg by ity of 0.25 mg 09:13: mouth 2 [place] tablet 17 (two) Medical times [address] daily. Insulin 2021-0 Yes 20U inject 20 Unive rs Lispro, 1-13 Units ity of Human, 09:13: under the [place] (HUMALOG) 17 skin 2 Medical 100 unit/mL (two) Branch cartridge times daily. NIFEdipine 2021-0 Yes 90mg Take 90 mg U nivers CC 90 mg SR 1-13 by mouth 2 it y of tablet 09:13: (two) [address] Medical daily. Branch Insulin 2021-0 Yes 25U inject 25 Unive rs Glargine 1-13 Units ity of (BASAGLAR 09:13: under the [place] 17 skin. Medical U-100 Branch INSULIN) 100 unit/mL (3 mL) injection amLODIPine 2021-0 Yes 10mg Take 10 mg U nivers 10 mg 1-13 by mouth ity of tablet 09:13: daily. [address] aspirin 81 2021-0 Yes 81mg Take 81 mg U nivers mg EC 1-13 by mouth ity of tablet 09:13: daily. [address] sevelamer 2021-0 Yes 800mg Take 800 Uni vers (RENVELA) 1-13 mg by ity of 800 mg 09:13: mouth 3 [place] tablet 17 (three) Medical times Branch daily with meals. ALPRAZolam 202-0 Yes .25mg Take 0.25 U nivers (XANAX) 1-13 mg by ity of 0.25 mg 09:13: mouth 2 [place] tablet 17 (two) Medical times Branch daily. Insulin 2021-0 Yes 20U inject 20 Unive rs Lispro, 1-13 Units ity of Human, 09:13: under the [place] (HUMALOG) 17 skin 2 Medical 100 unit/mL (two) Branch cartridge times daily. NIFEdipine 202-0 Yes 90mg Take 90 mg U nivers CC 90 mg SR 1-13 by mouth 2 it y of tablet 09:13: (two) [place] 17 times Medical daily. Branch Insulin 2021-0 Yes 25U inject 25 Unive rs Glargine 1-13 Units ity of (BASAGLAR 09:13: under the [place] 17 skin. Medical U-100 Branch INSULIN) 100 unit/mL (3 mL) injection amLODIPine 2021-0 Yes 10mg Take 10 mg U nivers 10 mg 1-13 by mouth ity of tablet 09:13: daily. [address] Branch aspirin 81 2021-0 Yes 81mg Take 81 mg U nivers mg EC 1-13 by mouth ity of tablet 09:13: daily. [address] Branch sevelamer 2021-0 Yes 800mg Take 800 Uni vers (RENVELA) 1-13 mg by ity of 800 mg 09:13: mouth 3 [place] tablet 17 (three) Medical times Branch daily with meals. Insulin 2021-0 Yes 20U inject 20 Unive rs Lispro, 1-13 Units ity of Human, 09:13: under the [place] (HUMALOG) 17 skin 2 Medical 100 unit/mL (two) Branch cartridge times daily. Insulin 2022-0 Yes 20U inject 20 Unive rs Lispro, 1-13 Units ity of Human, 09:13: under the [place] (HUMALOG) 17 skin 2 Medical 100 unit/mL (two) Branch cartridge times daily. Insulin 2022-0 Yes 20U inject 20 Unive rs Lispro, 1-13 Units ity of Human, 09:13: under the [place] (HUMALOG) 17 skin 2 Medical 100 unit/mL (two) Branch cartridge times daily. Insulin 2022-0 Yes 20U inject 20 Unive rs Lispro, 1-13 Units ity of Human, 09:13: under the [place] (HUMALOG) 17 skin 2 Medical 100 unit/mL (two) Branch cartridge times daily. Insulin Yes 20U inject 20 Unive rs Lispro, 1-13 Units ity of Human, 09:13: under the [place] (HUMALOG) 17 skin 2 Medical 100 unit/mL (two) Branch cartridge times daily. sevelamer 2021- No 2400mg Take 2,400 Univers 800 mg -13 01-13 mg by ity of tablet 09:13: 00:00 mouth 3 [place] 15 :00 (three) Medical times Branch daily with meals. sevelamer 2021- No 2400mg Take 2,400 Univers 800 mg 13 01-13 mg by ity of tablet 09:13: 00:00 mouth 3 [place] 15 :00 (three) Medical times Branch daily with meals. atorvastati 2018-03 Yes [id number] 40mg Take 1 Univers n 40 mg 1-19 tablet by ity of tablet 00:00: mouth at [place] [address] bedtime. Medical Branch atorvastati 2018-03 Yes [id number] 40mg Take 1 Univers n 40 mg 1-19 tablet by ity of tablet 00:00: mouth at [place] [address] bedtime. Medical Branch atorvastati 2018-03 Yes [id number] 40mg Take 1 Univers n 40 mg 1-19 tablet by ity of tablet 00:00: mouth at [place] [address] bedtime. Medical Branch atorvastati 2018-03 Yes [id number] 40mg Take 1 Univers n 40 mg 1-19 tablet by ity of tablet 00:00: mouth at [place] [address] bedtime. Medical Branch atorvastati 2018-03 Yes [id number] 40mg Take 1 Univers n 40 mg 1-19 tablet by ity of tablet 00:00: mouth at [place] [address] bedtime. Medical Branch atorvastati 2018-03 Yes [id number] 40mg Take 1 Univers n 40 mg 1-19 tablet by ity of tablet 00:00: mouth at [place] [address] bedtime. Medical Branch atorvastati 2018-03 Yes [id number] 40mg Take 1 Univers n 40 mg 1-19 tablet by ity of tablet 00:00: mouth at [place] [address] bedtime. Medical Branch atorvastati 2018-03 Yes [id number] 40mg Take 1 Univers n 40 mg 1-19 tablet by ity of tablet 00:00: mouth at [place] 00 bedtime. Medical Branch atorvastati 2018-03 Yes [id number] 40mg Take 1 Univers n 40 mg 1-19 tablet by ity of tablet 00:00: mouth at [place] [address] bedtime. Medical Branch atorvastati 2018-03 Yes [id number] 40mg Take 1 Univers n 40 mg 1-19 tablet by ity of tablet 00:00: mouth at [place] 00 bedtime. Medical Branch atorvastati 2018-03 Yes [id number] 40mg Take 1 Univers n 40 mg 1-19 tablet by ity of tablet 00:00: mouth at [place] [address] bedtime. Medical Branch atorvastati 2018-03 Yes [id number] 40mg Take 1 [facility] 40 mg 1-19 tablet by [facility] of tablet 00:00: mouth at [place] [address] bedtime. [facility] atorvastati 2018-03 Yes [id number] 40mg Take 1 [facility] 40 mg 1-19 tablet by [facility] of tablet 00:00: mouth at [place] [address] bedtime. [facility] atorvastati 2018-03 Yes [id number] 40mg Take 1 [facility] 40 mg 1-19 tablet by [facility] of tablet 00:00: mouth at [place] [address] bedtime. [facility] atorvastati 2018-03 Yes [id number] 40mg Take 1 [facility] 40 mg 1-19 tablet by [facility] of tablet 00:00: mouth at [place] [address] bedtime. [facility] atorvastati 2018-03 Yes [id number] 40mg Take 1 [facility] 40 mg 1-19 tablet by [facility] of tablet 00:00: mouth at [place] [address] bedtime. [facility] atorvastati 2018-03 Yes [id number] 40mg Take 1 [facility] 40 mg 1-19 tablet by [facility] of tablet 00:00: mouth at [place] [address] bedtime. [facility] atorvastati 2018-03 Yes [id number] 40mg Take 1 [facility] 40 mg 1-19 tablet by [facility]y of tablet 00:00: mouth at [place] [address] bedtime. [facility] tiZANidine Yes [facility] 2 mg tablet 4-26 ity of 00:00: [place] 00 [facility] tiZANidine Yes [facility] 2 mg tablet 4-26 ity of 00:00: [place] 00 [facility] tiZANidine 2019-0 Yes [facility] 2 mg tablet 4-26 ity of 00:00: [place] [facility] tiZANidine 2019-0 Yes [facility] 2 mg tablet 4-26 ity of 00:00: [place] [facility] tiZANidine 2019-0 Yes [facility] 2 mg tablet 4-26 ity of 00:00: [place] [facility] tiZANidine 2019-0 Yes [facility] 2 mg tablet 4-26 ity of 00:00: [place] [facility] tiZANidine 2019-0 Yes [facility] 2 mg tablet 4-26 ity of 00:00: [place] [facility] tiZANidine 2019-0 Yes [facility] 2 mg tablet 4-26 ity of 00:00: [place] [facility] tiZANidine 2019-0 Yes [facility] 2 mg tablet 4-26 ity of 00:00: [place] [facility] tiZANidine 2019-0 Yes [facility] 2 mg tablet 4-26 ity of 00:00: [place] [facility] tiZANidine 2019-0 Yes [facility] 2 mg tablet 4-26 ity of 00:00: [place] [facility] tiZANidine 2019-0 Yes [facility] 2 mg tablet 4-26 ity of 00:00: [place] [facility] tiZANidine 2019-0 Yes [facility] 2 mg tablet 4-26 ity of 00:00: [place] [facility] tiZANidine 2019-0 Yes [facility] 2 mg tablet 4-26 ity of 00:00: [place] [facility] tiZANidine 2019-0 Yes [facility] 2 mg tablet 4-26 ity of 00:00: [place] [facility] tiZANidine 2019-0 Yes [facility] 2 mg tablet 4-26 ity of 00:00: [place] [facility] tiZANidine 2019-0 Yes [facility] 2 mg tablet 4-26 ity of 00:00: [place] [address] [facility] Branch tiZANidine 2019-0 Yes [facility] 2 mg tablet 4-26 ity of 00:00: [place] [address] [facility] Immunizations Ordered Filled Immunization Date Status Comments Sour e Immunization Name Name Influenza Virus 2021-12-03 Completed [facility]it [facility] Vaccine 00:00:00 [facility] Influenza Virus 2021-12-03 Completed [facility] of Vaccine 00:00:00 [facility] Influenza Virus 2021-12-03 Completed [facility] of Vaccine 00[facility]00:00 [facility] Influenza Virus 2021-12-03 Completed [facility] of Vaccine 00:00:00 [facility] Influenza Virus 2021-12-03 Completed [facility] of Vaccine 00:00:00 [facility] Influenza Virus 2021-12-03 Completed [facility] of Vaccine 00:00:00 [facility] Influenza Virus 2021-12-03 Completed [facility] y of Vaccine 00:00:00 [facility] Influenza Virus 2021-12-03 Completed [facility] y of Vaccine 00:00:00 [facility] Influenza Virus 2021-12-03 Completed [facility] y of Vaccine 00:00:00 [facility] Influenza Virus 2021-12-03 Completed [facility] of Vaccine 00:00:00 [facility] Influenza Virus 2021-12-03 Completed [facility] y of Vaccine 00:00:00 [facility] Influenza Virus 2021-12-03 Completed [facility] y of Vaccine 00:00:00 [facility] Influenza Virus 2021-12-03 Completed [facility] y of Vaccine 00:00:00 [facility] Influenza Virus 2021-12-03 Completed [facility] y of Vaccine 00:00:00 [facility] Influenza Virus 2021-12-03 Completed [facility] y of Vaccine 00:00:00 [facility] Influenza Virus 2020-01-16 Completed [facility] y of Vaccine 00:00:00 [facility] Influenza Virus 2020-01-16 Completed [facility] y of Vaccine 00:00:00 [facility] Influenza Virus 2020-01-16 Completed [facility] y of Vaccine 00:00:00 [facility] Influenza Virus 2020-01-16 Completed [facility] y of Vaccine 00:00:00 [facility] Influenza Virus 2020-01-16 Completed [facility] y of Vaccine 00:00:00 [facility] Influenza Virus 2020-01-16 Completed [facility] y of Vaccine 00:00:00 [facility] Influenza Virus 2020-01-16 Completed [facility] y of Vaccine 00:00:00 [facility] Influenza Virus 2020-01-16 Completed [facility] y of Vaccine 00:00:00 [facility] Influenza Virus 2020-01-16 Completed [facility] y of Vaccine 00:00:00 [facility] Influenza Virus 2020-01-16 Completed [facility] y of Vaccine 00:00:00 [facility] Influenza Virus 2020-01-16 Completed [facility] y of Vaccine 00:00:00 [facility] Influenza Virus 2020-01-16 Completed [facility] y of Vaccine 00:00:00 [facility] Influenza Virus 2020-01-16 Completed [facility] y of Vaccine 00:00:00 [facility] Influenza Virus 2020-01-16 Completed [facility] y of Vaccine 00:00:00 [facility] Influenza Virus 2020-01-16 Completed [facility] y of Vaccine 00:00:00 [facility] Influenza Virus 2020-01-16 Completed [facility] y of Vaccine 00:00:00 [facility] Influenza Virus 2020-01-16 Completed [facility] y of Vaccine 00:00:00 [facility] Influenza Virus 2020-01-16 Completed [facility] y of Vaccine 00:00:00 [facility] Influenza Virus 2016-11-27 Completed [facility] y of Vaccine 00:00:00 [facility] Influenza Virus 2016-11-27 Completed [facility] y of Vaccine 00:00:00 [facility] Influenza Virus 2016-11-27 Completed [facility] y of Vaccine 00:00:00 [facility] Influenza Virus 2016-11-27 Completed [facility] y of Vaccine 00:00:00 [facility] Influenza Virus 2016-11-27 Completed [facility] y of Vaccine 00:00:00 [facility] Influenza Virus 2016-11-27 Completed [facility] y of Vaccine 00:00:00 [facility] Influenza Virus 2016-11-27 Completed [facility] y of Vaccine 00:00:00 [facility] Influenza Virus 2016-11-27 Completed [facility] y of Vaccine 00:00:00 [facility] Influenza Virus 2016-11-27 Completed [facility] y of Vaccine 00:00:00 [facility] Influenza Virus 2016-11-27 Completed [facility] y of Vaccine 00:00:00 [facility] Influenza Virus 2016-11-27 Completed [facility] y of Vaccine 00:00:00 [facility] Influenza Virus 2016-11-27 Completed [facility] y of Vaccine 00:00:00 [facility] Influenza Virus 2016-11-27 Completed [facility] y of Vaccine 00:00:00 [facility] Influenza Virus 2016-11-27 Completed [facility] y of Vaccine 00:00:00 [facility] Influenza Virus 2016-11-27 Completed [facility] y of Vaccine 00:00:00 [facility] Influenza Virus 2016-11-27 Completed [facility] y of Vaccine 00:00:00 [facility] Influenza Virus 2016-11-27 Completed [facility] y of Vaccine 00:00:00 [facility] Influenza Virus 2016-11-27 Completed [facility] y of Vaccine 00:00:00 [facility] Pneumococcal 13 2015-05-12 Completed Universit y [...] y of Conjugate, PCV13 00:00:00 [facility] dical (Prevnar 13) Branch Pneumococcal 13 2015-05-12 Completed Universit y of Conjugate, PCV13 00:00:00 [facility] dical (Prevnar 13) Branch PPD (TB) 2015-04-03 Completed [facility] of 00:00:00 [facility] PPD (TB) 2015-04-03 Completed [facility] of 00:00:00 [facility] PPD (TB) 2015-04-03 Completed [facility] of 00:00:00 [facility] PPD (TB) 2015-04-03 Completed [facility] of 00:00:00 [facility] PPD (TB) 2015-04-03 Completed [facility] of 00[facility]00:00 [facility] PPD (TB) 2015-04-03 Completed [facility] of 00:00:00 [facility] PPD (TB) 2015-04-03 Completed [facility] of 00:00:00 [facility] PPD (TB) 2015-04-03 Completed [facility] of 00:00:00 [facility] PPD (TB) 2015-04-03 Completed [facility] of 00:00:00 [facility] PPD (TB) 2015-04-03 Completed [facility] of 00[facility]00:00 [facility] PPD (TB) 2015-04-03 Completed [facility] of 00:00:00 [facility] PPD (TB) 2015-04-03 Completed [facility] of 00:00:00 [facility] PPD (TB) 2015-04-03 Completed [facility] of 00:00:00 [facility] PPD (TB) 2015-04-03 Completed [facility] of 00:00:00 [facility] PPD (TB) 2015-04-03 Completed [facility] of 00:00:00 [facility] PPD (TB) 2015-04-03 Completed [facility] of 00:00:00 [facility] PPD (TB) 2015-04-03 Completed [facility] of 00:00:00 [facility] PPD (TB) 2015-04-03 Completed [facility] of 00:00:00 [facility] Influenza Virus 2014-12-05 Completed [facility] y of Vaccine 00:00:00 [facility] Influenza Virus 2014-12-05 Completed [facility] y of Vaccine 00:00:00 [facility] Influenza Virus 2014-12-05 Completed [facility] y of Vaccine 00:00:00 [facility] Influenza Virus 2014-12-05 Completed [facility] y of Vaccine 00:00:00 [facility] Influenza Virus 2014-12-05 Completed [facility] y of Vaccine 00:00:00 [facility] Influenza Virus 2014-12-05 Completed [facility] y of Vaccine 00:00:00 [facility] Influenza Virus 2014-12-05 Completed [facility] y of Vaccine 00:00:00 [facility] Influenza Virus 2014-12-05 Completed [facility] y of Vaccine 00:00:00 [facility] Influenza Virus 2014-12-05 Completed [facility] y of Vaccine 00:00:00 [facility] Influenza Virus 2014-12-05 Completed [facility] y of Vaccine 00:00:00 [facility] Influenza Virus 2014-12-05 Completed [facility] y of Vaccine 00:00:00 [facility] Influenza Virus 2014-12-05 Completed [facility] y of Vaccine 00:00:00 [facility] Influenza Virus 2014-12-05 Completed [facility] y of Vaccine 00:00:00 [facility] Influenza Virus 2014-12-05 Completed [facility] y of Vaccine 00:00:00 [facility] Influenza Virus 2014-12-05 Completed [facility] y of Vaccine 00:00:00 [facility] Influenza Virus 2014-12-05 Completed [facility] y of Vaccine 00:00:00 [facility] Influenza Virus 2014-12-05 Completed [facility] y of Vaccine 00:00:00 [facility] Influenza Virus 2014-12-05 Completed [facility] y of Vaccine 00:00:00 [facility] PPD (TB) 2014-04-13 Completed [facility] 00:00:00 [facility] PPD (TB) 2014-04-13 Completed [facility] of 00:00:00 [facility] PPD (TB) 2014-04-13 Completed [facility] of 00:00:00 [facility] PPD (TB) 2014-04-13 Completed [facility] of 00:00:00 [facility] PPD (TB) 2014-04-13 Completed [facility] of 00:00:00 [facility] PPD (TB) 2014-04-13 Completed [facility] of 00:00:00 [facility] PPD (TB) 2014-04-13 Completed [facility] of 00:00:00 [facility] PPD (TB) 2014-04-13 Completed [facility] of 00:00:00 [facility] PPD (TB) 2014-04-13 Completed [facility] of 00:00:00 [facility] PPD (TB) 2014-04-13 Completed [facility] of 00:00:00 [facility] PPD (TB) 2014-04-13 Completed [facility] of 00:00:00 [facility] PPD (TB) 2014-04-13 Completed [facility] of 00:00:00 [facility] PPD (TB) 2014-04-13 Completed [facility] of 00:00:00 [facility] PPD (TB) 2014-04-13 Completed [facility] of 00:00:00 [facility] PPD (TB) 2014-04-13 Completed [facility] 00:00:00 [facility] PPD (TB) 2014-04-13 Completed [facility] of 00:00:00 [facility] PPD (TB) 2014-04-13 Completed [facility] of 00:00:00 [facility] PPD (TB) 2014-04-13 Completed [facility] 00:00:00 [facility] Influenza Virus 2013-11-15 Completed [facility] y of Vaccine 00:00:00 [facility] Influenza Virus 2013-11-15 Completed [facility] y of Vaccine 00:00:00 [facility] Influenza Virus 2013-11-15 Completed [facility] y of Vaccine 00:00:00 [facility] Influenza Virus 2013-11-15 Completed [facility] y of Vaccine 00:00:00 [facility] Influenza Virus 2013-11-15 Completed [facility] y of Vaccine 00:00:00 [facility] Influenza Virus 2013-11-15 Completed [facility] y of Vaccine 00:00:00 [facility] Influenza Virus 2013-11-15 Completed [facility] y of Vaccine 00:00:00 [facility] Influenza Virus 2013-11-15 Completed [facility] y of Vaccine 00:00:00 [facility] Influenza Virus 2013-11-15 Completed [facility] y of Vaccine 00:00:00 [facility] Influenza Virus 2013-11-15 Completed [facility] y of Vaccine 00:00:00 [facility] Influenza Virus 2013-11-15 Completed [facility] y of Vaccine 00:00:00 [facility] Influenza Virus 2013-11-15 Completed [facility] y of Vaccine 00:00:00 [facility] Influenza Virus 2013-11-15 Completed [facility] y of Vaccine 00:00:00 [facility] Influenza Virus 2013-11-15 Completed [facility] y of Vaccine 00:00:00 [facility] Influenza Virus 2013-11-15 Completed [facility] y of Vaccine 00:00:00 [facility] Influenza Virus 2013-11-15 Completed [facility] y of Vaccine 00:00:00 [facility] Influenza Virus 2013-11-15 Completed [facility] y of Vaccine 00:00:00 [facility] Influenza Virus 2013-11-15 Completed [facility] y of Vaccine 00:00:00 [facility] PPD (TB) 2013-09-08 Completed [facility] 00:00:00 [facility] PPD (TB) 2013-09-08 Completed [facility] 00:00:00 [facility] PPD (TB) 2013-09-08 Completed [facility] 00:00:00 [facility] PPD (TB) 2013-09-08 Completed [facility] 00:00:00 [facility] PPD (TB) 2013-09-08 Completed [facility] 00:00:00 [facility] PPD (TB) 2013-09-08 Completed [facility] 00:00:00 [facility] PPD (TB) 2013-09-08 Completed [facility] 00:00:00 [facility] PPD (TB) 2013-09-08 Completed [facility] 00:00:00 [facility] PPD (TB) 2013-09-08 Completed [facility] of 00:00:00 [facility] PPD (TB) 2013-09-08 Completed [facility] of 00:00:00 [facility] PPD (TB) 2013-09-08 Completed [facility] of 00:00:00 [facility] PPD (TB) 2013-09-08 Completed [facility] 00:00:00 [facility] PPD (TB) 2013-09-08 Completed [facility] of 00:00:00 [facility] PPD (TB) 2013-09-08 Completed [facility] 00:00:00 [facility] PPD (TB) 2013-09-08 Completed [facility] of 00:00:00 [facility] PPD (TB) 2013-09-08 Completed [facility] of 00:00:00 [facility] PPD (TB) 2013-09-08 Completed [facility] of 00:00:00 [facility] PPD (TB) 2013-09-08 Completed [facility] 00:00:00 [facility] Hep B, Adol or Pedi 2012-12-28 Completed Unive rsity of Dosage 00:00:00 [facility] Hep B, Adol or Pedi 2012-12-28 Completed Unive rsity of Dosage 00:00:00 [facility] Hep B, Adol or Pedi 2012-12-28 Completed Unive rsity of Dosage 00:00:00 [facility] Hep B, Adol or Pedi 2012-12-28 [...] 2012-12-28 Completed Unive rsity of Dosage 00:00:00 [facility] Influenza Virus 2012-11-20 Completed [facility] y of Vaccine 00:00:00 [facility] Influenza Virus 2012-11-20 Completed [facility] y of Vaccine 00:00:00 [facility] Influenza Virus 2012-11-20 Completed [facility] y of Vaccine 00:00:00 [facility] Influenza Virus 2012-11-20 Completed [facility] y of Vaccine 00:00:00 [facility] Influenza Virus 2012-11-20 Completed [facility] y of Vaccine 00:00:00 [facility] Influenza Virus 2012-11-20 Completed [facility] y of Vaccine 00:00:00 [facility] Influenza Virus 2012-11-20 Completed [facility] y of Vaccine 00:00:00 [facility] Influenza Virus 2012-11-20 Completed [facility] y of Vaccine 00:00:00 [facility] Influenza Virus 2012-11-20 Completed [facility] y of Vaccine 00:00:00 [facility] Influenza Virus 2012-11-20 Completed [facility] y of Vaccine 00:00:00 [facility] Influenza Virus 2012-11-20 Completed [facility] y of Vaccine 00:00:00 [facility] Influenza Virus 2012-11-20 Completed [facility] y of Vaccine 00:00:00 [facility] Influenza Virus 2012-11-20 Completed [facility] y of Vaccine 00:00:00 [facility] Influenza Virus 2012-11-20 Completed [facility] y of Vaccine 00:00:00 [facility] Influenza Virus 2012-11-20 Completed [facility] y of Vaccine 00:00:00 [facility] Influenza Virus 2012-11-20 Completed [facility] y of Vaccine 00:00:00 [facility] Influenza Virus 2012-11-20 Completed [facility] y of Vaccine 00:00:00 [facility] Influenza Virus 2012-11-20 Completed [facility] Vaccine 00:00:00 [facility] Hep B, Adol or Pedi 2012-08-26 Completed Unive rsity of Dosage 00:00:00 [facility] Hep B, Adol or Pedi 2012-08-26 Completed Unive rsity of Dosage 00:00:00 [facility] Hep B, Adol or Pedi 2012-08-26 Completed Unive rsity of Dosage 00:00:00 [facility] Hep B, Adol or Pedi 2012-08-26 Completed Unive rsity of Dosage 00:00:00 [facility] Hep B, Adol or Pedi 2012-08-26 Completed Unive rsity of Dosage 00:00:00 [facility] Hep B, Adol or Pedi 2012-08-26 Completed Unive rsity of Dosage 00:00:00 [facility] Hep B, Adol or Pedi 2012-08-26 Completed Unive rsity of Dosage 00:00:00 [facility] Hep B, Adol or Pedi 2012-08-26 [...] 2012-07-27 Completed Unive rsity of Dosage 00:00:00 [place] [facility] Hep B, Adol or Pedi 2012-07-27 Completed Unive rsity of Dosage 00:00:00 [place] [facility] Hep B, Adol or Pedi 2012-07-27 Completed Unive rsity of Dosage 00:00:00 [place] [facility] Hep B, Adol or Pedi 2012-07-27 Completed Unive rsity of Dosage 00:00:00 [place] [facility] Hep B, Adol or Pedi 2012-07-27 Completed Unive rsity of Dosage 00:00:00 [place] [facility] Hep B, Adol or Pedi 2012-07-27 Completed Unive rsity of Dosage 00:00:00 [place] [facility] Hep B, Adol or Pedi 2012-07-27 Completed Unive rsity of Dosage 00:00:00 [place] [facility] Hep B, Adol or Pedi 2012-07-27 Completed Unive rsity of Dosage 00:00:00 [place] [facility] Hep B, Adol or Pedi 2012-07-27 Completed Unive rsity of Dosage 00:00:00 [place] [facility] Hep B, Adol or Pedi 2012-07-27 Completed Unive rsity of Dosage 00:00:00 [place] [facility] Hep B, Adol or Pedi 2012-07-27 Completed [facility]ive rs[facility] of Dosage 00:00:00 [facility] Influenza Virus 2012-07-08 Completed [facility] Vaccine 00:00:00 [facility] Influenza Virus 2012-07-08 Completed [facility] y of Vaccine 00:00:00 [facility] Influenza Virus 2012-07-08 Completed [facility] y of Vaccine 00:00:00 [facility] Influenza Virus 2012-07-08 Completed [facility] of Vaccine 00:00:00 [facility] Influenza Virus 2012-07-08 Completed [facility] y of Vaccine 00:00:00 [facility] Influenza Virus 2012-07-08 Completed [facility] y of Vaccine 00:00:00 [facility] Influenza Virus 2012-07-08 Completed [facility] y of Vaccine 00:00:00 [facility] Influenza Virus 2012-07-08 Completed [facility] of Vaccine 00:00:00 [facility] Influenza Virus 2012-07-08 Completed [facility] y of Vaccine 00:00:00 [facility] Influenza Virus 2012-07-08 Completed [facility] y of Vaccine 00:00:00 [facility] Influenza Virus 2012-07-08 Completed [facility] y of Vaccine 00:00:00 [facility] Influenza Virus 2012-07-08 Completed [facility] y of Vaccine 00:00:00 [facility] Influenza Virus 2012-07-08 Completed [facility] y of Vaccine 00:00:00 [facility] Influenza Virus 2012-07-08 Completed [facility] y of Vaccine 00:00:00 [facility] Influenza Virus 2012-07-08 Completed [facility] y of Vaccine 00:00:00 [facility] Influenza Virus 2012-07-08 Completed [facility] y of Vaccine 00:00:00 [facility] Influenza Virus 2012-07-08 Completed [facility] y of Vaccine 00:00:00 [facility] Influenza Virus 2012-07-08 Completed [facility] Vaccine 00:00:00 [facility] Hep B, Adol or Pedi 2012-06-19 Completed [facility]ive rs[facility] of Dosage 00:00:00 [facility] Pneumococcal 13 2012-06-19 Completed Universit y of Conjugate, PCV13 00:00:00 [facility] dical (Prevnar 13) Branch Hep B, Adol or Pedi 2012-06-19 Completed [facility]ive rsity of Dosage 00:00:00 [facility] Pneumococcal 13 2012-06-19 Completed [facility] y of Conjugate, PCV13 00:00:00 [facility] dical (Prevnar 13) Branch Hep B, Adol or Pedi 2012-06-19 Completed Unive rsity of Dosage 00:00:00 [facility] Pneumococcal 13 2012-06-19 Completed [facility] y of Conjugate, PCV13 00:00:00 [facility] dical (Prevnar 13) Branch Hep B, Adol or Pedi 2012-06-19 Completed [facility]ive rs[facility] of Dosage 00:00:00 [facility] Pneumococcal 13 2012-06-19 Completed [facility] y of Conjugate, PCV13 00:00:00 [place] [facility] (Prevnar 13) [facility] Hep B, Adol or Pedi 2012-06-19 Completed [facility]ive rsity of Dosage 00:00:00 [facility] Pneumococcal 13 2012-06-19 Completed [facility] y of Conjugate, PCV13 00:00:00 [facility] dical (Prevnar 13) Branch Hep B, Adol or Pedi 2012-06-19 Completed [facility]ive rs[facility] of Dosage 00:00:00 [facility] Pneumococcal 13 2012-06-19 Completed [facility] of Conjugate, PCV13 00:00:00 [place] [facility] (Prevnar 13) [facility] Hep B, Adol or Pedi 2012-06-19 Completed [facility]ive rs[facility] of Dosage 00:00:00 [facility] Pneumococcal 13 2012-06-19 Completed [facility] of Conjugate, PCV13 00:00:00 [place] [facility] (Prevnar 13) [facility] Hep B, Adol or Pedi 2012-06-19 Completed Unive rsity of Dosage 00:00:00 [facility] Pneumococcal 13 2012-06-19 Completed Universit y of Conjugate, PCV13 00:00:00 [place] [facility] (Prevnar 13) Branch Hep B, Adol or Pedi 2012-06-19 Completed Unive rsity of Dosage 00:00:00 [facility] Pneumococcal 13 2012-06-19 Completed Universit y of Conjugate, PCV13 00:00:00 [facility] dical (Prevnar 13) Branch Hep B, Adol or Pedi 2012-06-19 Completed Unive rsity of Dosage 00:00:00 [facility] Pneumococcal 13 2012-06-19 Completed Universit y of Conjugate, PCV13 00:00:00 [place] [facility] (Prevnar 13) Branch Hep B, Adol or Pedi 2012-06-19 Completed Unive rsity of Dosage 00:00:00 [facility] Pneumococcal 13 2012-06-19 Completed Universit y of Conjugate, PCV13 00:00:00 [facility] dical (Prevnar 13) Branch Hep B, Adol or Pedi 2012-06-19 Completed Unive rsity of Dosage 00:00:00 [facility] Pneumococcal 13 2012-06-19 Completed Universit y of Conjugate, PCV13 00:00:00 [place] [facility] (Prevnar 13) Branch Hep B, Adol or Pedi 2012-06-19 Completed Unive rsity of Dosage 00:00:00 [facility] Pneumococcal 13 2012-06-19 Completed Universit y of Conjugate, PCV13 00:00:00 [place] [facility] (Prevnar 13) Branch Hep B, Adol or Pedi 2012-06-19 Completed Unive rsity of Dosage 00:00:00 [facility] Pneumococcal 13 2012-06-19 Completed Universit y of Conjugate, PCV13 00:00:00 [place] [facility] (Prevnar 13) Branch Hep B, Adol or Pedi 2012-06-19 Completed Unive rsity of Dosage 00:00:00 [facility] Pneumococcal 13 2012-06-19 Completed Universit y of Conjugate, PCV13 00:00:00 [facility] dical (Prevnar 13) Branch Hep B, Adol or Pedi 2012-06-19 Completed Unive rsity of Dosage 00:00:00 [facility] Pneumococcal 13 2012-06-19 Completed Universit y of Conjugate, PCV13 00:00:00 [facility] dical (Prevnar 13) Branch Hep B, Adol or Pedi 2012-06-19 Completed Unive rsity of Dosage 00:00:00 [facility] Pneumococcal 13 2012-06-19 Completed Universit y of Conjugate, PCV13 00:00:00 [facility] dical (Prevnar 13) Branch Hep B, Adol or Pedi 2012-06-19 Completed Unive rsity of Dosage 00:00:00 [facility] Pneumococcal 13 2012-06-19 Completed Universit y of Conjugate, PCV13 00:00:00 [facility] dical (Prevnar 13) Branch PPD (TB) 2012-05-30 Completed University of 00:00:00 [facility] PPD (TB) 2012-05-30 Completed University of 00:00:00 [facility] PPD (TB) 2012-05-30 Completed University of 00:00:00 [facility] PPD (TB) 2012-05-30 Completed University of 00:00:00 [facility] PPD (TB) 2012-05-30 Completed University of 00:00:00 [facility] PPD (TB) 2012-05-30 Completed University of 00:00:00 [facility] PPD (TB) 2012-05-30 Completed University of 00:00:00 [facility] PPD (TB) 2012-05-30 Completed University of 00:00:00 [facility] PPD (TB) 2012-05-30 Completed University of 00:00:00 [facility] PPD (TB) 2012-05-30 Completed University of 00:00:00 [facility] PPD (TB) 2012-05-30 Completed University of 00:00:00 [facility] PPD (TB) 2012-05-30 Completed University of 00:00:00 [facility] PPD (TB) 2012-05-30 Completed University of 00:00:00 [facility] PPD (TB) 2012-05-30 Completed University of 00:00:00 [facility] PPD (TB) 2012-05-30 Completed University of 00:00:00 [facility] PPD (TB) 2012-05-30 Completed University of 00:00:00 [facility] PPD (TB) 2012-05-30 Completed University of 00:00:00 [facility] PPD (TB) 2012-05-30 Completed University of 00:00:00 [facility] Vital Signs Vital Name Observation Time Observation Value Comments Source Systolic blood 2022-04-11 16:32:00 179 mm[Hg] Univer sity of pressure [facility] Diastolic blood 2022-04-11 16:32:00 84 mm[Hg] Unive rsity of pressure [facility] Heart rate 2022-04-11 16:32:00 71 /min Universi ty of [facility] Oxygen saturation in 2022-04-11 16:32:00 93 /min University Arterial blood by [facility] Pulse oximetry Branch Body temperature 2022-04-11 16:30:00 37.11 Radha [address] [facility] Body height 2022-04-11 16:30:00 167.[address] [facility] Body weight 2022-04-11 16:30:00 84[address] [facility] BMI 2022-04-11 16:30:00 30.05 kg/m2 Universi ty of [facility] Systolic blood 2021-12-19 19:25:00 187 mm[Hg] Univer sity of pressure [facility] Diastolic blood 2021-12-19 19:25:00 93 mm[Hg] Unive rsity of pressure [facility] Heart rate 2021-12-19 19:25:00 77 /min Universi ty of [facility] Respiratory rate 2021-12-19 19:21:00 19 /min Univ ersity of [facility] Body height 2021-12-19 19:21:00 167.[address] [facility] Body weight 2021-12-19 19:21:00 84[address] [facility] BMI 2021-12-19 19:21:00 30.12 kg/m2 Universi ty of [facility] Oxygen saturation in 2021-12-19 19:21:00 93 /min University of Arterial blood by [facility] Pulse oximetry Branch Systolic blood 2021-12-10 18:42:00 149 mm[Hg] Univer sity of pressure [facility] Diastolic blood 2021-12-10 18:42:00 81 mm[Hg] Unive rsity of pressure [facility] Heart rate 2021-12-10 18:42:00 81 /min Universi ty of [facility] Oxygen saturation in 2021-12-10 18:42:00 97 /min University of Arterial blood by [facility] Pulse oximetry Branch Body temperature 2021-12-10 18:40:00 36.56 Rdaha [facility] Respiratory rate 2021-12-10 18:40:00 18 /min [facility] Body weight 2021-12-10 18:40:00 87.227 kg Universi ty of [place] [facility] [address] BMI 2021-12-10 18:40:00 31.04 kg/m2 Universi ty of [place] [facility] [address] Systolic blood 2021-03-29 15:21:00 141 mm[Hg] Univer sity of pressure [facility] Diastolic blood 2021-03-29 15:21:00 74 mm[Hg] Unive rsity of pressure [facility] Heart rate 2021-03-29 15:21:00 72 /min Universi ty of [place] [facility] [address] Respiratory rate 2021-03-29 15:17:00 22 /min [facility] Body height 2021-03-29 15:17:00 167.6 cm Universi ty of [place] [facility] [address] Body weight 2021-03-29 15:17:00 89.268 kg Universi ty of [place] [facility] [address] BMI 2021-03-29 15:17:00 31.76 kg/m2 [facility]i ty [facility] [place] [facility] Oxygen saturation in 2021-03-29 15:17:00 94 /min University of Arterial blood by [facility] Pulse oximetry Branch Procedures Procedure Date / Time Performing Clinician Source Performed HB ECG ROUTINE & RHYTHM 2022-04-11 16:22:03 Mariposa Teague [facility] ASSIGNMENT OF BENEFITS 2022-04-11 15:53:16 Doctor Unassigned, Un [facility] [place] [facility] [id number] 2022-04-04 00:00:00 AMIAI [facility] [id number] 2022-04-03 00:00:00 AMIAI [facility] EXTERNAL PROVIDER - ADC 2022-03-28 06:01:00 Doctor UnassAlethea hidalgo [facility] CARDIOLOGY [place] [facility] [id number] 2022-03-25 00:00:00 CHAAB.01 [facility] [id number] 2022-03-25 00:00:00 CHAAB.01 [facility] [id number] 2022-03-25 00:00:00 CHAAB.01 [facility] [id number] 2022-03-25 00:00:00 CHAAB.01 [facility] [id number] 2022-03-25 00:00:00 CHAAB.01 [facility] [id number] 2022-03-25 00:00:00 CHAAB.01 [facility] [id number] 2022-03-25 00:00:00 CHAAB.01 [facility] [id number] 2022-03-25 00:00:00 CHAAB.01 [facility] [id number] 2022-03-25 00:00:00 CHAAB.01 [facility] [id number] 2022-03-25 00:00:00 CHAAB.01 [facility] [id number] 2022-03-25 00:00:00 HYDSH [facility] [id number] 2022-03-25 00:00:00 HYDSH [facility] [id number] 2022-03-25 00:00:00 AMIAI [facility] [id number] 2022-03-23 00:00:00 AMIAI [facility] INSURANCE CORRESPONDENCE 2021-02-28 06:01:00 Doctor Fernie [facility] [place] [facility] Encounters Start End Encounter Admission Attending Care Care Encounter Source Date/Time Date/Time Type Type Clinicians Facility Department ID 2018-06-22 Inpatient [facility] [id number] [facility] 07:53:49 2018-06-22 Outpatient [facility] [id number] [facility] 07:53:48 2022-06-06 2022-06-06 [facility] [id number] Univers 15:30:00 15:30:00 SENDIL ity [facility] 2022-06-04 2022-06-04 [facility] [id number] Univers 09:00:00 09:00:00 SENDIL ity [facility] 2022-04-15 2022-04-15 [facility] [id number] Univers 00:00:00 00:00:00 Sendil Ene GARDUNO 350.1.13.10 ity [facility] [place] [id number] Id dic[address] 2022-04-12 2022-04-12 [facility] 1..[id number] [id number] Univers 00:00:00 00:00:00 Sendil Ene GARDUNO 350.1.13.10 ity [facility] [place] [id number] Id dic[address] 2022-04-11 2022-04-11 Out[facility] [id number] Univers 10:00:00 10:49:26 SENDIL ity [facility] 2022-04-11 2022-04-11 [facility] 1.2.840.114 [id number] Univers 10:00:00 10:49:26 Visit Sendil Ene GARDUNO 350.1.13.10 ity [facility] [place] [id number] Id dicpr NAL [address] [place] [address] 2022-04-11 2022-04-11 Orders Doctor KAMLESH 1.2.840.114 [id number] Univers 00:00:00 00:00:00 Only Unassigned, JACQUE 350.1.13.10 ity of [place] [facility] 4.2.7.2.686 Paulie as [id number] [address] 2022-03-22 2022-04-04 Inpatient UR Nithin Chaudhry [facility] [id number] [facility] 01:30:00 19:14:00 36 [facility] 2022-03-28 2022-03-28 Orders Doctor KAMLESH 1.2.840.114 [id number] Univers 00:00:00 00:00:00 Only Unassigned, JACQUE 350.1.13.10 ity of [facility] 4.2.7.2.686 Paulie as [id number] [place] [address] Branch 2022-03-26 2022-03-26 Outpatient R HO [facility] [id number] Univers 09:00:00 09:00:00 SENDIL [facility] 2022-03-19 2022-03-19 [facility] [id number] Univers 10:00:00 10:00:00 SENDIL [facility] 2022-03-02 2022-03-02 Out[facility] [id number] Univers 20:00:00 20:00:00 IFARH [facility] 2022-02-05 2022-02-05 [facility] [id number] Univers 10:00:00 10:00:00 [facility] 2022-02-04 2022-02-04 [facility] [id number] Univers 08:40:00 08:40:00 [facility] 2021-12-19 2021-12-19 Office [facility] [id number] Univers 14:00:00 14:20:00 Visit Elise GARDUNO 350.1.13.10 ity [facility] 4.2.7.2.686 Kendal DIAZ [id number] Id dic[address] 2021-12-19 2021-12-19 Outpatient R ELISE RG [facility] [id number] Univers 14:00:00 14:00:00 ELISE RG [facility] 2021-12-10 2021-12-10 Outpatient [facility] [id number] Univers 13:30:00 14:14:02 SENDIL ity [facility] 2021-12-10 2021-12-10 [facility] 1.2.840.114 [id number] Univers 13:30:00 14:14:02 Visit Sendil Ene GARDUNO 350.1.13.10 ity of [place] [id number] [address] 2021-03-29 2021-03-29 Outpatient R [facility] [id number] Univers 09:00:00 09:42:55 SENDIL ity [facility] 2021-03-29 2021-03-29 [facility] 1.2.840.114 [id number] Univers 09:00:00 09:42:55 Visit Sendil Ene GARDUNO 350..13.10 ity of [place] [id number] Id dicpr NAL [address] [place] [address] 2021-03-29 2021-03-29 Outpatient R [facility] [id number] Univers 09:00:00 09:42:55 SENDIL ity [facility] 2021-03-29 2021-03-29 Orders Doctor KAMLESH 1.2.840.114 [id number] Univers 00:00:00 00:00:00 Only Unassigned, JACQUE 350.1.13.10 ity of [place] [facility] 4.2.7.2.686 Paulie as [id number] [address] 2021-03-01 2021-03-01 Outpatient R [facility] [id number] Univers 13:00:00 13:00:00 SENDIL ity [facility] 2021-02-28 2021-02-28 Orders Doctor KAMLESH 1.2.840.114 [id number] Univers 00:00:00 00:00:00 Only Unassigned, JACQUE 350.1.13.10 ity of [place] [facility] 4.2.7.2.686 Paulie as [id number] [facility] 009 Branch 2020-05-16 2020-05-16 Telephone [facility] 1.2.840.114 [id number] 00:00:00 00:00:00 Aguilar A MULTISPEC 350.1.13.10 IALTY 4.2.7.2.686 [place] [id number] [place] [address] [facility] 2020-05-16 2020-05-16 Telephone [facility] 1.2.840.114 [id number] 00:00:00 00:00:00 Aguilar A MULTISPEC 350.1.13.10 IALTY 4.2.7.2.686 [place] [id number] [place] [address] [facility] 2020-05-16 2020-05-16 Telephone [facility] 1.2.840.114 [id number] [facility] 00:00:00 00:00:00 Aguilar A MULTISPEC 350.1.13.10 ity of [place] [id number] [facility] [place] [address] Branch [facility] 2020-05-16 2020-05-16 Telephone [facility] 1.2.840.114 [id number] [facility] 00:00:00 00:00:00 Aguilar A MULTISPEC 350.1.13.10 ity of IALTY 4.2.7.2.686 [facility] [id number] [facility] [place] [address] Branch [facility] 2020-05-15 2020-05-15 Telephone [facility] 1.2.840.114 [id number] 00:00:00 00:00:00 Izzy santana MULTISPEC 350.1.13.10 IALTY 4.2.7.2.686 CENTER [id number] [place] [address] [facility] 2020-05-15 2020-05-15 Abstract Gamilla-Cru [facility] 1.2.840.114 [id number] 00:00:00 00:00:00 doIzzy N MULTISPEC 350.1.13.10 IALTY 4.2.7.2.686 CENTER [id number] AND [facility] 2020-05-15 2020-05-15 Telephone [facility] 1.2.840.114 [id number] Univers 00:00:00 00:00:00 Izzy santana MULTISPEC 350.1.13.10 ity of IALTY 4.2.7.2.686 [facility] [place] [id number] [facility] [place] [address] Branch [facility] 2020-05-15 2020-05-15 Abstract [facility] 1.2.840.114 [id number] Univers 00:00:00 00:00:00 Izzy santana MULTISPEC 350.1.13.10 ity of IALTY 4.2.7.2.686 [facility] [place] [id number] [facility] [place] [address] Branch [facility] 2020-05-12 2020-05-12 Abstract [facility] [id number] 00:00:00 00:00:00 Aguilar A MULTISPEC 350.1.13.10 IALTY 4.2.7.2.686 CENTER [id number] [facility] 2020-05-12 2020-05-12 Committee [facility] 1.2.840.114 [id number] 00:00:00 00:00:00 Review Aguilar A MULTISPEC 350.1.13.10 IALTY 4.2.7.2.686 [place] [id number] [place] [address] [facility] 2020-05-12 2020-05-12 Committee [facility] 1.2.840.114 [id number] Univers 00:00:00 00:00:00 Review Aguilar A MULTISPEC 350.1.13.10 ity of IALTY 4.2.7.2.[address] [facility] [place] [id number] [facility] [place] [address] Branch [facility] 2020-05-12 2020-05-12 Abstract [facility] [id number] Univers 00:00:00 00:00:00 Aguilar A MULTISPEC 350.1.13.10 ity [place] [id number] [address] [facility] 2020-04-18 2020-04-18 Orders Doctor KAMLESH 1.2.840.114 [id number] 00:00:00 00:00:00 Only Unassigned, JACQUE 350.1.13.10 [place] [facility] 4.2.7.2.686 [id number] 009 2020-04-18 2020-04-18 Telephone [facility] 1.2.840.114 [id number] Univers 00:00:00 00:00:00 Erin Bobo MULTISPEC 350.1.13.10 it[place] [id number] [address] [facility] 2020-04-18 2020-04-18 Committee [facility] 1.2.840.114 [id number] Univers 00:00:00 00:00:00 Review Erin Bobo MULTISPEC 350.1.13.10 ity [place] [id number] [address] [facility] 2020-04-18 2020-04-18 Orders Doctor KAMLESH 1.2.840.114 [id number] Univers 00:00:00 00:00:00 Only Unassigned, JACQUE 350.1.13.10 ity of [place] [facility] 4.2.7.2.686 Paulie as [phone] [facility] 009 Branch 2020-04-17 2020-04-17 Abstract [facility] 1.2.887.472 [id number] Univers 00:00:00 00:00:00 Erin A MULTISPEC 350.1.13.10 ity of IALTY 4.2.7.2.686 [facility] [id number] [address] [facility] 2020-04-17 2020-04-17 Abstract [facility] 1.2.942.274 [id number] Univers 00:00:00 00:00:00 Aguilar A MULTISPEC 350.1.13.10 it[place] [id number] [address] [facility] 2020-03-28 2020-03-28 Telephone [facility] 1.2.840.114 [id number] Univers 00:00:00 00:00:00 Erin Bobo MULTISPEC 350.1.13.10 ity [place] [id number] [address] [facility] 2020-03-14 2020-03-14 [facility] 1.2.840.114 [id number] Univers 09:14:33 23:59:00 Encounter Mariposa Garduno 350.1.13.10 ity [place] [id number] [address] 2020-03-14 2020-03-14 [facility] 1.2.840.114 [id number] Univers 09:14:13 23:59:00 Encounter Mariposa Garduno 350.1.13.10 ity of [place] 4.2.7.2.686 [facility] [place] [id number] [address] 2020-03-14 2020-03-14 [facility] 1.2.840.114 [id number] Univers 09:13:41 09:13:41 Encounter Mariposa Garduno 350.1.13.10 ity [place] [id number] [address] 2020-03-14 2020-03-14 Outpatient R [facility] [id number] Univers 09:12:26 09:12:[address] [facility] 2020-03-14 2020-03-14 [facility] 1.2.840.114 [id number] Univers 09:12:26 09:12:26 Encounter Mariposa Garduno 350.1.13.10 ity of [place] [id number] [facility] [address] 2020-02-28 2020-02-28 Office [facility] 1.2.840.114 [id number] 12:46:09 13:47:51 Visit Sendalis Garduno 350.1.13.10 [place] 4.2.7.2.686 Professio [id number] nal 9 [facility] 2020-02-28 2020-02-28 Office [facility] 1.2.840.114 [id number] Univers 12:46:09 13:47:51 Visit Sendalis Garduno 350.1.13.10 ity of [place] 4.2.7.2.686 [facility] Professio [id number] Id dical nal 9 [facility] 2020-02-28 2020-02-28 Outpatient [facility] [id number] Univers 13:00:00 13:00:00 SENDIL ity [facility] 2020-02-08 2020-02-08 Outpatient [facility] [id number] Univers 08:00:00 08:00:00 SENDIL ity [facility] 2020-01-14 2020-01-14 Outpatient [facility] [id number] Univers 09:00:00 09:00:00 SENDIL ity [facility] 2019-12-30 2019-12-30 [facility] 1.2.840.114 [id number] Univers 08:00:00 23:59:00 Encounter Izzy santana 350.1.13.10 ity of [place] 4.2.7.2.686 [facility] [id number] [facility] [address] 2019-12-30 2019-12-30 Laboratory 1, Adc Cardio Fac Room [facility] 1.2.840.114 [id number] Univers 08:46:43 09:34:19 Only Pc, Adc Echo Room 1 - Cherie 350.1.1 3.10 ity of [place] 4.2.7.2.686 [place] Professio [id number] Id dical nal 059 [facility] 2019-12-30 2019-12-30 Outpatient R [facility] [id number] Univers 09:00:00 09:00:[address] [facility] 2019-11-16 2019-11-16 [employer] Moc-Lab [facility] 1.2.840.114 [id number] Univers 12:37:53 12:52:53 Visit Izzy McelroyPEC 350.1 .13.10 ity of IALTY 4.2.7.2.686 [facility] [id number] [address] DIABETES CLINIC 2019-11-16 2019-11-16 Office Izzy Mcelroy [facility] 1.2 .840.114 [id number] Univers 10:48:20 11:08:20 Visit Erin Zelaya MULTISPEC 350.1.13 .10 ity of IALTY 4.2.7.2.686 [facility] [id number] [address] [facility]ETES [facility]INIC 2019-11-16 2019-11-16 [facility] [id number] Univers 11:00:00 11:00:00 ERIN ity o f [facility] 2019-11-16 2019-11-16 Orders Doctor KAMLESH 1.2.840.114 [id number] Univers 00:00:00 00:00:00 Only Unassigned, JACQUE 350.1.13.10 ity of [place] [facility] 4.2.7.2.686 Paulie as [id number] [address] 2019-11-15 2019-11-15 Abstract [facility] 1.2.128.520 [id number] Univers 00:00:00 00:00:00 Erin oBbo MULTISPEC 350.1.13.10 ity of IALTY 4.2.7.2.686 [facility] [place] [id number] [address] [facility]ES CLINIC 2019-08-20 2019-08-20 Telephone [facility] 1.2.840.114 [id number] Univers 00:00:00 00:00:00 Erin Bobo MULTISPEC 350.1.13.10 [id number] [id number] [address] [facility] 2019-06-01 2019-06-01 Letter [facility] [id number] Univers 00:00:00 00:00:00 (Out) Erin A MULTISPEC 350.1.13.10 ity of [place] [id number] [facility] [place] [id number] [address] [facility] 2018-11-10 2018-11-10 [facility] [id number] Univers 09:30:00 23:59:00 Encounter Aguilar A [place] 350.1.13.10 ity of [place] [id number] [facility] [place] [id number] [facility] [address] 2018-11-10 2018-11-10 Orders Doctor KAMLESH [id number] Univers 00:00:00 00:00:00 Only Unassigned, JACQUE 350.1.13.10 ity of [place] [facility] 4.2.7.2.686 Paulie [id number] [facility] [address] 2018-11-03 2018-11-03 Telephone [facility] 1.2.840.114 [id number] Univers 00:00:00 00:00:00 [facility] 350.1.13.10 ity of [place] 4.2.7.2.686 [facility] [phone] Id dical t [facility] [address] 2018-11-02 2018-11-02 Committee [facility] 1.2.840.114 [id number] Univers 00:00:00 00:00:00 Review Erin A MULTISPEC 350.1.13.10 ity of [place] 4.2.7.2.686 [facility] [place] [phone] [address] DI[facility]IC 2018-11-02 2018-11-02 Abstract [facility] [id number] Univers 00:00:00 00:00:00 [facility] 350.1.13.10 [place]7.2.[place] [id number] Id dicpr t [facility] [address] 2018-11-02 2018-11-02 Abstract [facility] [id number] Univers 00:00:00 00:00:00 Erin [facility] 350.1.13.10 [place]2.7.2.[place] [phone] [facility] [address] 2018-11-02 2018-11-02 Case [facility] 1.2.840.114 [id number] Univers 00:00:00 00:00:00 Management Erin [facility] 350.1.13.10 [place]2.7.2.686 [place] [phone] [facility] [address] 2018-10-28 2018-10-28 Telephone [facility] 1.2.840.114 [id number] Univers 00:00:00 00:00:00 Erin Bobo MULTISPEC 350.1.13.10 [place]2.686 [place] [id number] Leo Brumfield [address] DIABETES CLINIC 2018-10-28 2018-10-28 Telephone [facility] 1.2.840.114 [id number] Univers 00:00:00 00:00:00 Erin [facility] 350.1.13.10 [place]7.2.[place] [id number] [facility] [address] Results Test Description Test Time Test Comments Results Result Comments Source GLUCOSE BEDSIDE 2022-04-04 15:14:00 Test Item Value Reference Range Interpretation Comme nts GLUCOSE BEDSIDE (test code = 95 MG/DL 70-110 N Performed by certified 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 [facility] COVID 19 Asymptomatic IH [id number] 11:55:00 Test Item Value Reference Range Interpretation Comments COVID 19 Asymptomatic Negative Negative A nega tive result is IH AG (test code = presumpti ve and should COVNONPUIAG) be confirmedwit h an FDA authorized mole cular assay, if neces elsa forpatient nette gilliam.A positive result does not rule out co-inf ections withother patho gens.This test detects todd th viable (live) and non-viable,SARS -CoV, and SARS-CoV-2. Hui t performance dep ends on theamount of vi becki (antigen) in th e sample.This hui t has not been FDA cleare d or approved; the t est hasbeen authori zed by FDA under an Em ergency Use Authorizati on(EUA) for use by labo ratories certified under the CLIA thatmeet the requirements to perform moderate, high or waivedcomplexit y tests. GLUCOSE [id number] 10:56:00 Test Item Value Reference Range Interpretation Comments GLUCOSE BEDSIDE (test 182 MG/DL 70-110 H [facility] med by certified code = GLUBED) 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 [facility] BASIC METABOLIC [id number] 03:44:00 Test Item Value Reference Range Interpretation Comments SODIUM (test code = 136 mEq/L 134-147 N NA) POTASSIUM (test code 4.4 mEq/L 3.4-5.0 N = K) CHLORIDE (test code 98 mEq/L 100-108 L = CL) CARBON DIOXIDE (test 27 mEq/l 21-33 N code = CO2) ANION GAP (test code 16 0-20 N = GAP) GLUCOSE (test code = 336 mg/dL 70-110 H GLU) BLOOD UREA NITROGEN 35 mg/dL 7-18 H (test code = BUN) GLOMERULAR 12.2 95-105 L The Glomerular FILTRATION RATE Filtration R ate is a (test code = GFR) calculated parameterbased on serum Creatinine, pat ient age and sex. GFR va luesless than 60 mL/min/ 1.73 square meters a re indicative ofCh ronic Kidney Disease. Values less than 15 mL/min/1.73squa re meters indicate Kidney failure. The calculation forGFR is based on the CKD-EPI (2020) calculat ion. This formulais race indifferent and is the recommended for piero for GFRby the [facility] on for Adults.The GFR will not calculate if th e sex is unknown or if thepatient's ag e is <18 years. CREATININE (test 5.5 mg/dL 0.6-1.3 H code = CREAT) CALCIUM (test code = 9.5 mg/dL 8.0-10.5 N CA) [id number] 03:44:00 Test Item Value Reference Range Interpretation Comments MAGNESIUM (test code = MAG) 2.24 mg/dL 1.80-2.40 N CBC W/AUTO [id number] 03:25:00 Test Item Value Reference Range Interpretation Comments WHITE BLOOD CELL (test code = 7.3 x10 3/uL 4.5-11.0 N WBC) RED BLOOD CELL (test code = 3.03 x10 6/uL 4.00-5.60 L RBC) HEMOGLOBIN (test code = HGB) 8.8 g/dL 12.5-16.9 L HEMATOCRIT (test code = HCT) 27.5 % 37.5-50.7 L MEAN CELL VOLUME (test code = 90.8 fL 81.0-99.0 N MCV) MEAN CELL HGB (test code = MCH) 29.0 pg 27.0-33.0 N MEAN CELL HGB CONCETRATION 32.0 g/dL 33.0-37.0 L (test code = MCHC) RED CELL DISTRIBUTION WIDTH CV 18.3 % 11.5-14.5 H (test code = RDW) RED CELL DISTRIBUTION WIDTH SD 53.5 fL 37.0-54.0 N (test code = RDW-SD) PLATELET COUNT (test code = 205 x10 3/uL 150-400 N PLT) MEAN PLATELET VOLUME (test code 9.4 fL 7.0-9.0 H = MPV) NEUTROPHIL % (test code = NT%) 75.8 % 56.0-77.0 N IMMATURE GRANULOCYTE % (test 0.3 % 0.0-2.0 N code = IG%) LYMPHOCYTE % (test code = LY%) 12.4 % 14.0-32.0 L MONOCYTE % (test code = MO%) 8.7 % 4.8-9.0 N EOSINOPHIL % (test code = EO%) 2.5 % 0.3-3.7 N BASOPHIL % (test code = BA%) 0.3 % 0.0-2.0 N NUCLEATED RBC % (test code = 0.0 % 0-0 N NRBC%) NEUTROPHIL # (test code = NT#) 5.51 x10 3/uL 2.0-7.6 N IMMATURE GRANULOCYTE # (test 0.02 x10 3/uL 0.00-0.03 N code = IG#) LYMPHOCYTE # (test code = LY#) 0.90 x10 3/uL 1.0-3.8 L MONOCYTE # (test code = MO#) 0.63 x10 3/uL 0.1-0.8 N EOSINOPHIL # (test code = EO#) 0.18 x10 3/uL 0.0-0.2 N BASOPHIL # (test code = BA#) 0.02 x10 3/uL 0.0-0.2 N NUCLEATED RBC # (test code = 0.00 x10 3/uL 0.0-0.1 N NRBC#) MANUAL DIFF REQUIRED (test code NO = MDIFF) - XR CHEST 1 [id number] 00:00:00 [facility] : 1975 Sex: M FAX: Bill Arteaga MD [phone] [place]: St: [facility] FAX: Rey Ferrer MD [phone] FAX: Nithin Rowan MD [phone] Name: MARTY BASS [facility] : 1975 Age/S: 46/M [address] [place] [address] Blvd Unit #: [id number] Loc: G.2208 [place] [address] Phys: Rey Hinojosa MD Acct: [id number] Dis Date: Status:ADM IN PHONE #: [phone] Exam Date: 04/04/2022 0505 FAX #: [phone] Reason: DAILY WHILE IN CVICU EXAMS: CPT CODE: [id number] XR CHEST 1 V 06022 PROCEDURE INFORMATION: Exam: XR Chest Exam date and time: 04/04/2022 5:03 AM Age: 46 years old Clinical indication: Other: Daily while in cvicu TECHNIQUE: Imaging protocol: Radiologic exam of the chest. Views: 1 view. COMPARISON: CR XR CHEST 1V 04/02/2022 5:10 AM FINDINGS: Lungs: Grossly stable diffuse bilateral airspace opacities and left lower lobe airspace consolidation. Pleural spaces: No pleural effusion. No pneumothorax. Heart/Mediastinum: Unchanged enlargement of the cardiomediastinal silhouette. Bones/joints: Intact median sternotomy wires. IMPRESSION: 1. Grossly stable diffuse bilateral airspace opacities and left lower lobe airspace consolidation. Differential includes pulmonary edema versus pneumonia. 2. Cardiomegaly. at 0754 Reported and signed by: Checo Hendricks M.D. 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 [facility] GLUCOSE [id number] 15:27:00 Test Item Value Reference Range Interpretation Comments GLUCOSE BEDSIDE (test 157 MG/DL 70-110 H Perfor med by certified code = GLUBED) 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 [facility] GLUCOSE [id number] 10:43:00 Test Item Value Reference Range Interpretation Comments GLUCOSE BEDSIDE (test 265 MG/DL 70-110 H Perfor med by certified code = GLUBED) 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 [facility] GLUCOSE [id number] 07:22:00 Test Item Value Reference Range Interpretation Comments GLUCOSE BEDSIDE (test 365 MG/DL 70-110 H Perfor med by certified code = GLUBED) 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 [facility] BASIC METABOLIC [id number] 02:59:00 Test Item Value Reference Range Interpretation Comments SODIUM (test code = 135 mEq/L 134-147 N NA) POTASSIUM (test code 4.7 mEq/L 3.4-5.0 N = K) CHLORIDE (test code 98 mEq/L 100-108 L = CL) CARBON DIOXIDE (test 22 mEq/l 21-33 N code = CO2) ANION GAP (test code 20 0-20 N = GAP) GLUCOSE (test code = 299 mg/dL 70-110 H GLU) BLOOD UREA NITROGEN 56 mg/dL 7-18 H (test code = BUN) GLOMERULAR 9.2 95-105 L The Glomerular FILTRATION RATE Filtration R ate is a (test code = GFR) calculated parameterbased on serum Creatinine, pat ient age and sex. GFR va luesless than 60 mL/min/ 1.73 square meters a re indicative ofCh ronic Kidney Disease. Values less than 15 mL/min/1.73squa re meters indicate Kidney failure. The calculation forGFR is based on the CKD-EPI (2020) calculat ion. This formulais race indifferent and is the recommended for piero for GFRby the [facility] on for Adults.The GFR will not calculate if th e sex is unknown or if thepatient's ag e is <18 years. CREATININE (test 7.0 mg/dL 0.6-1.3 H code = CREAT) CALCIUM (test code = 8.9 mg/dL 8.0-10.5 N CA) [id number] 02:59:00 Test Item Value Reference Range Interpretation Comments MAGNESIUM (test code = MAG) 2.33 mg/dL 1.80-2.40 N CBC W/AUTO [id number] 02:45:00 Test Item Value Reference Range Interpretation Comments WHITE BLOOD CELL (test code = 6.5 x10 3/uL 4.5-11.0 N WBC) RED BLOOD CELL (test code = 2.76 x10 6/uL 4.00-5.60 L RBC) HEMOGLOBIN (test code = HGB) 8.1 g/dL 12.5-16.9 L HEMATOCRIT (test code = HCT) 24.9 % 37.5-50.7 L MEAN CELL VOLUME (test code = 90.2 fL 81.0-99.0 N MCV) MEAN CELL HGB (test code = MCH) 29.3 pg 27.0-33.0 N MEAN CELL HGB CONCETRATION 32.5 g/dL 33.0-37.0 L (test code = MCHC) RED CELL DISTRIBUTION WIDTH CV 17.6 % 11.5-14.5 H (test code = RDW) RED CELL DISTRIBUTION WIDTH SD 53.3 fL 37.0-54.0 N (test code = RDW-SD) PLATELET COUNT (test code = 193 x10 3/uL 150-400 N PLT) MEAN PLATELET VOLUME (test code 9.3 fL 7.0-9.0 H = MPV) NEUTROPHIL % (test code = NT%) 70.0 % 56.0-77.0 N IMMATURE GRANULOCYTE % (test 0.3 % 0.0-2.0 N code = IG%) LYMPHOCYTE % (test code = LY%) 15.3 % 14.0-32.0 N MONOCYTE % (test code = MO%) 10.6 % 4.8-9.0 H EOSINOPHIL % (test code = EO%) 3.5 % 0.3-3.7 N BASOPHIL % (test code = BA%) 0.3 % 0.0-2.0 N NUCLEATED RBC % (test code = 0.0 % 0-0 N NRBC%) NEUTROPHIL # (test code = NT#) 4.58 x10 3/uL 2.0-7.6 N IMMATURE GRANULOCYTE # (test 0.02 x10 3/uL 0.00-0.03 N code = IG#) LYMPHOCYTE # (test code = LY#) 1.00 x10 3/uL 1.0-3.8 N MONOCYTE # (test code = MO#) 0.69 x10 3/uL 0.1-0.8 N EOSINOPHIL # (test code = EO#) 0.23 x10 3/uL 0.0-0.2 H BASOPHIL # (test code = BA#) 0.02 x10 3/uL 0.0-0.2 N NUCLEATED RBC # (test code = 0.00 x10 3/uL 0.0-0.1 N NRBC#) MANUAL DIFF REQUIRED (test code NO = MDIFF) GLUCOSE [id number] 20:43:00 Test Item Value Reference Range Interpretation Comments GLUCOSE BEDSIDE (test 224 MG/DL 70-110 H Perfor med by certified code = GLUBED) 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 [facility] [id number] 20:18:00 Test Item Value Reference Range Interpretation Comments PREALBUMIN (test code = PREALB) 10.5 mg/dL 16.0-40.0 L GLUCOSE [id number] 16:37:00 Test Item Value Reference Range Interpretation Comments GLUCOSE BEDSIDE (test 239 MG/DL 70-110 H Perfor med by certified code = GLUBED) 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 [facility] GLUCOSE [id number] 11:59:00 Test Item Value Reference Range Interpretation Comments GLUCOSE BEDSIDE (test 179 MG/DL 70-110 H Perfor med by certified code = GLUBED) 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 [facility] GLUCOSE [id number] 07:34:00 Test Item Value Reference Range Interpretation Comments GLUCOSE BEDSIDE (test 205 MG/DL 70-110 H Perfor med by certified code = GLUBED) 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 [facility] BASIC METABOLIC [id number] 03:58:00 Test Item Value Reference Range Interpretation Comments SODIUM (test code = 134 mEq/L 134-147 N NA) POTASSIUM (test code 4.6 mEq/L 3.4-5.0 = K) CHLORIDE (test code 102 mEq/L 100-108 N = CL) CARBON DIOXIDE (test 24 mEq/l 21-33 N code = CO2) ANION GAP (test code 13 0-20 N = GAP) GLUCOSE (test code = 213 mg/dL 70-110 H GLU) BLOOD UREA NITROGEN 47 mg/dL 7-18 H (test code = BUN) GLOMERULAR 11.5 95-105 L The Glomerular FILTRATION RATE Filtration R ate is a (test code = GFR) calculated parameterbased on serum Creatinine, pat ient age and sex. GFR va luesless than 60 mL/min/ 1.73 square meters a re indicative ofCh ronic Kidney Disease. Values less than 15 mL/min/1.73squa re meters indicate Kidney failure. The calculation forGFR is based on the CKD-EPI (2020) calculat ion. This formulais race indifferent and is the recommended for piero for GFRby the [facility] on for Adults.The GFR will not calculate if th e sex is unknown or if thepatient's ag e is <18 years. CREATININE (test 5.8 mg/dL 0.6-1.3 H code = CREAT) CALCIUM (test code = 9.3 mg/dL 8.0-10.5 N CA) [id number] 03:58:00 Test Item Value Reference Range Interpretation Comments MAGNESIUM (test code = MAG) 2.22 mg/dL 1.80-2.40 N CBC W/AUTO [id number] 03:43:00 Test Item Value Reference Range Interpretation Comments WHITE BLOOD CELL (test code = 8.5 x10 3/uL 4.5-11.0 N WBC) RED BLOOD CELL (test code = 3.05 x10 6/uL 4.00-5.60 L RBC) HEMOGLOBIN (test code = HGB) 8.9 g/dL 12.5-16.9 L HEMATOCRIT (test code = HCT) 27.4 % 37.5-50.7 L MEAN CELL VOLUME (test code = 89.8 fL 81.0-99.0 N MCV) MEAN CELL HGB (test code = MCH) 29.2 pg 27.0-33.0 N MEAN CELL HGB CONCETRATION 32.5 g/dL 33.0-37.0 L (test code = MCHC) RED CELL DISTRIBUTION WIDTH CV 17.2 % 11.5-14.5 H (test code = RDW) RED CELL DISTRIBUTION WIDTH SD 52.5 fL 37.0-54.0 N (test code = RDW-SD) PLATELET COUNT (test code = 226 x10 3/uL 150-400 N PLT) MEAN PLATELET VOLUME (test code 10.0 fL 7.0-9.0 H = MPV) NEUTROPHIL % (test code = NT%) 76.3 % 56.0-77.0 N IMMATURE GRANULOCYTE % (test 0.2 % 0.0-2.0 N code = IG%) LYMPHOCYTE % (test code = LY%) 13.2 % 14.0-32.0 L MONOCYTE % (test code = MO%) 7.4 % 4.8-9.0 N EOSINOPHIL % (test code = EO%) 2.7 % 0.3-3.7 N BASOPHIL % (test code = BA%) 0.2 % 0.0-2.0 N NUCLEATED RBC % (test code = 0.0 % 0-0 N NRBC%) NEUTROPHIL # (test code = NT#) 6.45 x10 3/uL 2.0-7.6 N IMMATURE GRANULOCYTE # (test 0.02 x10 3/uL 0.00-0.03 N code = IG#) LYMPHOCYTE # (test code = LY#) 1.12 x10 3/uL 1.0-3.8 N MONOCYTE # (test code = MO#) 0.63 x10 3/uL 0.1-0.8 N EOSINOPHIL # (test code = EO#) 0.23 x10 3/uL 0.0-0.2 H BASOPHIL # (test code = BA#) 0.02 x10 3/uL 0.0-0.2 N NUCLEATED RBC # (test code = 0.00 x10 3/uL 0.0-0.1 N NRBC#) MANUAL DIFF REQUIRED (test code NO = MDIFF) - [facility] VEIN [id number] 00:00:00 [facility] : 1975 Sex: M Name: MARTY BASS [facility] [place] : 1975 Age/S: 46 / M [address] [place] [address] Unit #: [id number] Loc: [place] [address] Phys: Violeta Marinelli RIMA Acct: [id number] Dis Date: Status: ADM IN PHONE #: [phone] Exam Date: 04/02/2022 1532 FAX #: [phone] Reason: R/O DVT EXAMS: CPT CODE: [id number] DUP VEIN JOE [id number] PROCEDURE INFORMATION: Exam: US Duplex Lower Extremity Veins, Bilateral Exam date and time: 04/02/2022 2:58 PM Age: 46 years old Clinical indication: Screening exam; Additional info: R/O dvt TECHNIQUE: Imaging protocol: Real-time duplex ultrasound of the bilateral extremities with 2-D leavitt scale, color Doppler flow and spectral waveform analysis including responses to compression and other maneuvers (when performed) with image documentation. Complete exam focused on the lower extremity veins. COMPARISON: US DUP VEIN JOE 03/23/2022 4:13 PM FINDINGS: Right deep veins: Unremarkable. The common femoral, femoral, proximal profunda femoral and popliteal veins are patent without thrombus. Normal Doppler waveforms. Normal compressibility and/or augmentation response. Right superficial veins: Saphenofemoral junction is patent without thrombus. Left deep veins: Unremarkable. The common femoral, femoral, proximal profunda femoral and popliteal veins are patent without thrombus. Normal Doppler waveforms. Normal compressibility and/or augmentation response. Left superficial veins: Saphenofemoral junction is patent without thrombus. Soft tissues: Unremarkable. IMPRESSION: No evidence of deep vein thrombosis. at 1550 Reported and signed by: Yue Chavez M.D. CC: Bill Yeager MD; Violeta Das; Nithin Chaudhry MD Technologist: Queenie Abreu RDMS(Jihan)(BR) Trnscb Date/Time: 04/02/2022 (1550) [email or web address] Orig Print D/T: S: 04/02/2022 (4070) Probe: PAGE 1 Signed Report- XR CHEST 1 V 2022-04-02 00:00:00 [facility]ARTY [facility]ASS : 1975 Sex: M FAX: Bill Arteaga MD [phone] [place]: St: ADM FAX: Rey Ferrer MD [phone] FAX: Nithin Rowan MD [phone] Name: MARTY BASS [facility] Yogi Eduardo : 1975 Age/S: 46/M [address] [place] [address] Unit #: [id number] Loc: G.2208 [place] [address] Phys: Rey Hinojosa MD Acct: [id number] Dis Date: Status:ADM IN PHONE #: [phone] Exam Date: 04/02/2022510 FAX #: [phone] Reason: DAILY WHILE IN CVICU EXAMS: CPT CODE: [id number] XR CHEST 1 V 82859 PROCEDURE INFORMATION: Exam: XR Chest Exam date and time: 04/02/2022 5:10 AM Age: 46 years old Clinical indication: Other: Cardiac surgery post op; Additional info: Daily while in cvicu TECHNIQUE: Imaging protocol: Radiologic exam of the chest. Views: 1 view. COMPARISON: CR XR CHEST 1V 03/31/2022 6:10 AM FINDINGS: Tubes, catheters and devices: Removal of right neck dialysis catheter. Surgical clips overlie the mediastinum. Lungs: Moderate degree bilateral perihilar and basilar interstitial alveolar pulmonary edema versus infiltrates, pneumonia withinthe lungs. The pulmonary opacities are most prominent within the lower left lung. Progression of left-sided lower lung opacities is demonstrated. Pleural spaces: Unremarkable. No pleural effusion. No pneumothorax. Heart/Mediastinum: Cardiac silhouette appears moderately enlarged. Diaphragm: Elevation of the left hemidiaphragm is demonstrated. Bones/joints: Sternotomy wires, hardware is demonstrated. IMPRESSION: 1. Moderate enlarged cardiac silhouette. 2. Moderate pulmonary edema versus infiltrates, pneumonia. Progression of opacities within left lower chest. at 0800 Reported and signed by: Aguilar Farris M.D. 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 [facility] GLUCOSE [id number] 17:20:00 Test Item Value Reference Range Interpretation Comments GLUCOSE BEDSIDE (test 175 MG/DL 70-110 H Perfor med by certified code = GLUBED) 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 [facility] BASIC METABOLIC [id number] 15:37:00 Test Item Value Reference Range Interpretation Comments SODIUM (test code = 136 mEq/L 134-147 N NA) POTASSIUM (test code 3.7 mEq/L 3.4-5.0 = K) CHLORIDE (test code 103 mEq/L 100-108 N = CL) CARBON DIOXIDE (test 23 mEq/l 21-33 code = CO2) ANION GAP (test code 14 0-20 N = GAP) GLUCOSE (test code = 193 mg/dL 70-110 H GLU) BLOOD UREA NITROGEN 40 mg/dL 7-18 H (test code = BUN) GLOMERULAR 14.4 95-105 L The Glomerular FILTRATION RATE Filtration R ate is a (test code = GFR) calculated parameterbased on serum Creatinine, pat ient age and sex. GFR va luesless than 60 mL/min/ 1.73 square meters a re indicative ofCh ronic Kidney Disease. Values less than 15 mL/min/1.73squa re meters indicate Kidney failure. The calculation forGFR is based on the CKD-EPI (2020) calculat ion. This formulais race indifferent and is the recommended for piero for GFRby the [facility] for Adults.The GFR will not calculate if th e sex is unknown or if thepatient's ag e is <18 years. 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 [facility] BASIC METABOLIC [id number] 03:29:00 Test Item Value Reference Range Interpretation Comments SODIUM (test code = 135 mEq/L 134-147 N NA) POTASSIUM (test code 5.2 mEq/L 3.4-5.0 H = K) CHLORIDE (test code 108 mEq/L 100-108 N = CL) CARBON DIOXIDE (test 17 mEq/l 21-33 L code = CO2) ANION GAP (test code 15 0-20 N = GAP) GLUCOSE (test code = 123 mg/dL 70-110 H GLU) BLOOD UREA NITROGEN 64 mg/dL 7-18 H (test code = BUN) GLOMERULAR 8.6 95-105 L The Glomerular FILTRATION RATE Filtration R ate is a (test code = GFR) calculated parameterbased on serum Creatinine, pat ient age and sex. GFR va luesless than 60 mL/min/ 1.73 square meters a re indicative ofCh ronic Kidney Disease. Values less than 15 mL/min/1.73squa re meters indicate Kidney failure. The calculation forGFR is based on the CKD-EPI (2020) calculat ion. This formulais race indifferent and is the recommended for piero for GFRby the [facility] on for Adults.The GFR will not calculate if th e sex is unknown or if thepatient's ag e is <18 years. CREATININE (test 7.4 mg/dL 0.6-1.3 H code = CREAT) CALCIUM (test code = 8.9 mg/dL 8.0-10.5 N CA) [id number] 03:29:00 Test Item Value Reference Range Interpretation Comments MAGNESIUM (test code = MAG) 2.34 mg/dL 1.80-2.40 N CBC W/AUTO [id number] 03:04:00 Test Item Value Reference Range Interpretation Comments WHITE BLOOD CELL (test code = 7.8 x10 3/uL 4.5-11.0 N WBC) RED BLOOD CELL (test code = 2.71 x10 6/uL 4.00-5.60 L RBC) HEMOGLOBIN (test code = HGB) 7.8 g/dL 12.5-16.9 L HEMATOCRIT (test code = HCT) 25.0 % 37.5-50.7 L MEAN CELL VOLUME (test code = 92.3 fL 81.0-99.0 N MCV) MEAN CELL HGB (test code = MCH) 28.8 pg 27.0-33.0 N MEAN CELL HGB CONCETRATION 31.2 g/dL 33.0-37.0 L (test code = MCHC) RED CELL DISTRIBUTION WIDTH CV 16.9 % 11.5-14.5 H (test code = RDW) RED CELL DISTRIBUTION WIDTH SD 54.8 fL 37.0-54.0 H (test code = RDW-SD) PLATELET COUNT (test code = 184 x10 3/uL 150-400 N PLT) MEAN PLATELET VOLUME (test code 10.3 fL 7.0-9.0 H = MPV) NEUTROPHIL % (test code = NT%) 69.1 % 56.0-77.0 N IMMATURE GRANULOCYTE % (test 0.5 % 0.0-2.0 N code = IG%) LYMPHOCYTE % (test code = LY%) 16.6 % 14.0-32.0 N MONOCYTE % (test code = MO%) 9.8 % 4.8-9.0 H EOSINOPHIL % (test code = EO%) 3.7 % 0.3-3.7 N BASOPHIL % (test code = BA%) 0.3 % 0.0-2.0 N NUCLEATED RBC % (test code = 0.3 % 0-0 H NRBC%) NEUTROPHIL # (test code = NT#) 5.39 x10 3/uL 2.0-7.6 N IMMATURE GRANULOCYTE # (test 0.04 x10 3/uL 0.00-0.03 H code = IG#) LYMPHOCYTE # (test code = LY#) 1.29 x10 3/uL 1.0-3.8 N MONOCYTE # (test code = MO#) 0.76 x10 3/uL 0.1-0.8 N EOSINOPHIL # (test code = EO#) 0.29 x10 3/uL 0.0-0.2 H BASOPHIL # (test code = BA#) 0.02 x10 3/uL 0.0-0.2 N NUCLEATED RBC # (test code = 0.02 x10 3/uL 0.0-0.1 N NRBC#) MANUAL DIFF REQUIRED (test code NO = MDIFF) GLUCOSE [id number] 00:22:00 Test Item Value Reference Range Interpretation Comments GLUCOSE BEDSIDE (test 148 MG/DL 70-110 H Perfor med by certified code = GLUBED) 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 [facility] GLUCOSE [id number] 21:02:00 Test Item Value Reference Range Interpretation Comments GLUCOSE BEDSIDE (test 130 MG/DL 70-110 H Perfor med by certified code = GLUBED) 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 [facility] [facility] GLUCOSE [id number] 16:06:00 Test Item Value Reference Range Interpretation Comments GLUCOSE BEDSIDE (test 123 MG/DL 70-110 H Perfor med by certified code = GLUBED) 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 [facility] GLUCOSE [id number] 11:48:00 Test Item Value Reference Range Interpretation Comments GLUCOSE BEDSIDE (test 184 MG/DL 70-110 H Perfor med by certified code = GLUBED) 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 [facility] GLUCOSE [id number] 08:25:00 Test Item Value Reference Range Interpretation Comments GLUCOSE BEDSIDE (test 207 MG/DL 70-110 H Perfor med by certified code = GLUBED) 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 [facility] BASIC METABOLIC [id number] 04:05:00 Test Item Value Reference Range Interpretation Comments SODIUM (test code = 136 mEq/L 134-147 N NA) POTASSIUM (test code 4.5 mEq/L 3.4-5.0 N = K) CHLORIDE (test code 108 mEq/L 100-108 N = CL) CARBON DIOXIDE (test 20 mEq/l 21-33 L code = CO2) ANION GAP (test code 12 0-20 N = GAP) GLUCOSE (test code = 100 mg/dL 70-110 GLU) BLOOD UREA NITROGEN 63 mg/dL 7-18 H (test code = BUN) GLOMERULAR 10.0 95-105 L The Glomerular FILTRATION RATE Filtration R ate is a (test code = GFR) calculated parameterbased on serum Creatinine, pat ient age and sex. GFR va luesless than 60 mL/min/ 1.73 square meters a re indicative ofCh ronic Kidney Disease. Values less than 15 mL/min/1.73squa re meters indicate Kidney failure. The calculation forGFR is based on the CKD-EPI (2020) calculat ion. This formulais race indifferent and is the recommended for piero for GFRby the Natio nal Kidney Foundati on for Adults.The GFR will not calculate if th e sex is unknown or if thepatient's ag e is <18 years. CREATININE (test 6.5 mg/dL 0.6-1.3 H code = CREAT) CALCIUM (test code = 9.1 mg/dL 8.0-10.5 N CA) [id number] 04:05:00 Test Item Value Reference Range Interpretation Comments MAGNESIUM (test code = MAG) 2.19 mg/dL 1.80-2.40 N CBC W/AUTO [id number] 03:55:00 Test Item Value Reference Range Interpretation Comments WHITE BLOOD CELL (test code = 6.6 x10 3/uL 4.5-11.0 N WBC) RED BLOOD CELL (test code = 2.48 x10 6/uL 4.00-5.60 L RBC) HEMOGLOBIN (test code = HGB) 7.3 g/dL 12.5-16.9 L HEMATOCRIT (test code = HCT) 22.4 % 37.5-50.7 L MEAN CELL VOLUME (test code = 90.3 fL 81.0-99.0 N MCV) MEAN CELL HGB (test code = MCH) 29.4 pg 27.0-33.0 N MEAN CELL HGB CONCETRATION 32.6 g/dL 33.0-37.0 L (test code = MCHC) RED CELL DISTRIBUTION WIDTH CV 16.7 % 11.5-14.5 H (test code = RDW) RED CELL DISTRIBUTION WIDTH SD 54.0 fL 37.0-54.0 N (test code = RDW-SD) PLATELET COUNT (test code = 164 x10 3/uL 150-400 N PLT) MEAN PLATELET VOLUME (test code 10.1 fL 7.0-9.0 H = MPV) NEUTROPHIL % (test code = NT%) 63.6 % 56.0-77.0 N IMMATURE GRANULOCYTE % (test 0.3 % 0.0-2.0 N code = IG%) LYMPHOCYTE % (test code = LY%) 18.7 % 14.0-32.0 N MONOCYTE % (test code = MO%) 12.1 % 4.8-9.0 H EOSINOPHIL % (test code = EO%) 5.0 % 0.3-3.7 H BASOPHIL % (test code = BA%) 0.3 % 0.0-2.0 N NUCLEATED RBC % (test code = 0.3 % 0-0 H NRBC%) NEUTROPHIL # (test code = NT#) 4.19 x10 3/uL 2.0-7.6 N IMMATURE GRANULOCYTE # (test 0.02 x10 3/uL 0.00-0.03 N code = IG#) LYMPHOCYTE # (test code = LY#) 1.23 x10 3/uL 1.0-3.8 N MONOCYTE # (test code = MO#) 0.80 x10 3/uL 0.1-0.8 N EOSINOPHIL # (test code = EO#) 0.33 x10 3/uL 0.0-0.2 H BASOPHIL # (test code = BA#) 0.02 x10 3/uL 0.0-0.2 N NUCLEATED RBC # (test code = 0.02 x10 3/uL 0.0-0.1 N NRBC#) MANUAL DIFF REQUIRED (test code NO = MDIFF) POC ARTERIAL BLOOD [id number] 03:51:00 Test Item Value Reference Range Interpretation Comments POC ARTERIAL BLOOD GAS PH (test 7.400 7.35-7.45 N code = POCPHA) POC ARTERIAL BLOOD GAS PCO2 31.0 mmHg 35.0-45 L (test code = [id number]) POC TCO2 ARTERIAL (test code = 20.3 POCTCO2) POC ARTERIAL BLOOD GAS PO2 (test 76.2 mmHg 80-100.0 L code = HTOJT7T) POC HCO3 ARTERIAL (test code = 19.3 MMOL/L 22.0-26.0 L [id number]) POC BASE EXCESS (test code = -5.6 MMOL/L -4.0-4.0 L POCBEA) POC O2 SATURATION (test code = 95.5 % 90-100 N POCO2S) FIO2 (test code = FIO2A) 24 % PaO2/FiO2 (test code = [id number]) 317.50 mm/Hg ABG DELIVERY (test code = [place]UST[place]) Cannula ABG TEMPERATURE (test code = 98 F TEMPA) ABG SITE (test code = SITEA) Art Line BASIC METABOLIC [id number] 03:51:00 Test Item Value Reference Range Interpretation Comments SODIUM (test code = NA/ABG) 136 mmol/L 134-147 N POTASSIUM (test code = K/ABG) 4.4 mmol/L 3.4-5.0 N CHLORIDE (test code = CL/ABG) 106 mmol/L 100-108 N CREATININE ABG (test code = 6.2 mg/dL 0.8-1.3 H CREAABG) POC IONIZED CALCIUM (test code = 1.23 MMOL/L 1.12-1.32 N POCCA) POC GLUCOSE (test code = POCGLU) 97 MG/DL 70-110 N HEMOGLOBIN [id number] 03:51:00 Test Item Value Reference Range Interpretation Comments HEMOGLOBIN ABG (test code = HGB/ABG) 7.3 G/DL 12.5-16.9 L [id number] 03:51:00 Test Item Value Reference Range Interpretation Comments HEMATOCRIT (test code = HCT/ABG) 22 % 37.5-50.7 L POC LACTIC [id number] 03:51:00 Test Item Value Reference Range Interpretation Comments POC LACTIC ACID (test code = 0.6 mmol/l 0.9-1.7 L POCLAC) GLUCOSE [id number] 00:13:00 Test Item Value Reference Range Interpretation Comments GLUCOSE BEDSIDE (test 102 MG/DL 70-110 [facility] med by certified code = GLUBED) 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 [facility] - XR CHEST 1 [id number] 00:00:00 [facility] 1975 Sex: M FAX: Nash Yin [phone] [place]: St: ADM FAX: Nithin Rowan MD [phone] Name: KALIMARTY GUIDO [facility] : 1975 Age/S: 46/M [address] [place] [address] Unit #: [id number] Loc: G.2208 [place] [address] Phys: Nash eKmp MD Acct: [id number] Dis Date: Status: ADM IN PHONE #: [phone] Exam Date: 03/31/2022 0646 FAX #: [phone] Reason: Cardiac Surgery Post Op EXAMS: CPT CODE: [id number] XR CHEST 1 V 16268 PROCEDURE INFORMATION: Exam: XR Chest Exam date and time: 03/31/2022 6:10 AM Age: 46 years old Clinical indication: Other: Cardiac surgery post op TECHNIQUE: Imaging protocol: Radiologic exam of the chest. Views: 1 view. COMPARISON: CR XR CHEST 1V 03/30/2022 6:18 AM FINDINGS: Tubes,catheters and devices: Right IJ catheter sheath remains in place. Lungs: Bilateral lung opacities have mildly improved. Pleural spaces: Small left pleural effusion, stable. Tiny left apical pneumothorax is stable. Heart/Mediastinum: Stable enlarged heart size. Vasculature: Atherosclerotic calcifications. Bones/joints: Stable. Median sternotomy wires. IMPRESSION: Mildly improved lung opacities. Otherwise, stable exam. at 0657 Reported and signed by: Roger Nixon M.D. CC: Nash Kemp MD; Nithin Chaudhry MD Technologist: Broderick Natoin; RT Kayleigh(R) Trnscrd Date/Time/By: 03/31/2022 (0657) : By: [email or web address] Orig Print D/T: S:03/31/2022 (0658) PAGE 1 Signed ReportGLUCOSE [id number] 19:02:00 Test Item Value Reference Range Interpretation Comments GLUCOSE BEDSIDE (test 129 MG/DL 70-110 H Perfor med by certified code = GLUBED) 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 [facility] GLUCOSE [id number] 07:39:00 Test Item Value Reference Range Interpretation Comments GLUCOSE BEDSIDE (test 125 MG/DL 70-110 H Perfor med by certified code = GLUBED) 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 [facility] POC ARTERIAL BLOOD [id number] 05:30:00 Test Item Value Reference Range Interpretation Comments POC ARTERIAL BLOOD GAS PH (test 7.359 7.35-7.45 N code = POCPHA) POC ARTERIAL BLOOD GAS PCO2 37.2 mmHg 35.0-45 N (test code = IGOCXK6B) POC TCO2 ARTERIAL (test code = 22.1 POCTCO2) POC ARTERIAL BLOOD GAS PO2 (test 66.2 mmHg 80-100.0 L code = DRPUF3Y) POC HCO3 ARTERIAL (test code = 21.0 MMOL/L 22.0-26.0 L QPULRY3N) POC BASE EXCESS (test code = -4.5 MMOL/L -4.0-4.0 L POCBEA) POC O2 SATURATION (test code = 92.2 % 90-100 N POCO2S) FIO2 (test code = FIO2A) 24 % PaO2/FiO2 (test code = [id number]) 275.83 mm/Hg ABG DELIVERY (test code = AUSTIN) Cannula ABG TEMPERATURE (test code = 98.4 F TEMPA) ABG SITE (test code = SITEA) Art Line BASIC METABOLIC [id number] 05:30:00 Test Item Value Reference Range Interpretation Comments SODIUM (test code = NA/ABG) 137 mmol/L 134-147 N POTASSIUM (test code = K/ABG) 4.4 mmol/L 3.4-5.0 N CHLORIDE (test code = CL/ABG) 106 mmol/L 100-108 N CREATININE ABG (test code = 5.0 mg/dL 0.8-1.3 H CREAABG) POC IONIZED CALCIUM (test code = 1.31 MMOL/L 1.12-1.32 N POCCA) POC GLUCOSE (test code = POCGLU) 176 MG/DL 70-110 H HEMOGLOBIN [id number] 05:30:00 Test Item Value Reference Range Interpretation Comments HEMOGLOBIN ABG (test code = HGB/ABG) 8.0 G/DL 12.5-16.9 L [id number] 05:30:00 Test Item Value Reference Range Interpretation Comments HEMATOCRIT (test code = HCT/ABG) 23 % 37.5-50.7 L POC LACTIC [id number] 05:30:00 Test Item Value Reference Range Interpretation Comments POC LACTIC ACID (test code = 0.8 mmol/l 0.9-1.7 L POCLAC) BASIC METABOLIC [id number] 03:47:00 Test Item Value Reference Range Interpretation Comments SODIUM (test code = 138 mEq/L 134-147 N NA) POTASSIUM (test code 4.6 mEq/L 3.4-5.0 N = K) CHLORIDE (test code 107 mEq/L 100-108 N = CL) CARBON DIOXIDE (test 23 mEq/l 21-33 N code = CO2) ANION GAP (test code 13 0-20 N = GAP) GLUCOSE (test code = 168 mg/dL 70-110 H GLU) BLOOD UREA NITROGEN 46 mg/dL 7-18 H (test code = BUN) GLOMERULAR 13.7 95-105 L The Glomerular FILTRATION RATE Filtration R ate is a (test code = GFR) calculated parameterbased on serum Creatinine, pat ient age and sex. GFR va luesless than 60 mL/min/ 1.73 square meters a re indicative ofCh ronic Kidney Disease. Values less than 15 mL/min/1.73squa re meters indicate Kidney failure. The calculation forGFR is based on the CKD-EPI (2020) calculat ion. This formulais race indifferent and is the recommended for piero for GFRby the Nat nal Kidney Foundati on for Adults.The GFR will not calculate if th e sex is unknown or if thepatient's ag e is <18 years. CREATININE (test 5.0 mg/dL 0.6-1.3 H code = CREAT) CALCIUM (test code = 9.0 mg/dL 8.0-10.5 N CA) [id number] 03:47:00 Test Item Value Reference Range Interpretation Comments MAGNESIUM (test code = MAG) 2.05 mg/dL 1.80-2.40 N CBC W/AUTO [id number] 03:32:00 Test Item Value Reference Range Interpretation Comments WHITE BLOOD CELL (test code = 9.7 x10 3/uL 4.5-11.0 N WBC) RED BLOOD CELL (test code = 2.63 x10 6/uL 4.00-5.60 L RBC) HEMOGLOBIN (test code = HGB) 7.7 g/dL 12.5-16.9 L HEMATOCRIT (test code = HCT) 23.6 % 37.5-50.7 L MEAN CELL VOLUME (test code = 89.7 fL 81.0-99.0 N MCV) MEAN CELL HGB (test code = MCH) 29.3 pg 27.0-33.0 N MEAN CELL HGB CONCETRATION 32.6 g/dL 33.0-37.0 L (test code = MCHC) RED CELL DISTRIBUTION WIDTH CV 17.0 % 11.5-14.5 H (test code = RDW) RED CELL DISTRIBUTION WIDTH SD 54.6 fL 37.0-54.0 H (test code = RDW-SD) PLATELET COUNT (test code = 197 x10 3/uL 150-400 N PLT) MEAN PLATELET VOLUME (test code 10.8 fL 7.0-9.0 H = MPV) NEUTROPHIL % (test code = NT%) 73.3 % 56.0-77.0 N IMMATURE GRANULOCYTE % (test 0.4 % 0.0-2.0 N code = IG%) LYMPHOCYTE % (test code = LY%) 12.2 % 14.0-32.0 L MONOCYTE % (test code = MO%) 10.5 % 4.8-9.0 H EOSINOPHIL % (test code = EO%) 3.3 % 0.3-3.7 N BASOPHIL % (test code = BA%) 0.3 % 0.0-2.0 N NUCLEATED RBC % (test code = 0.2 % 0-0 H NRBC%) NEUTROPHIL # (test code = NT#) 7.09 x10 3/uL 2.0-7.6 N IMMATURE GRANULOCYTE # (test 0.04 x10 3/uL 0.00-0.03 H code = IG#) LYMPHOCYTE # (test code = LY#) 1.18 x10 3/uL 1.0-3.8 N MONOCYTE # (test code = MO#) 1.02 x10 3/uL 0.1-0.8 H EOSINOPHIL # (test code = EO#) 0.32 x10 3/uL 0.0-0.2 H BASOPHIL # (test code = BA#) 0.03 x10 3/uL 0.0-0.2 N NUCLEATED RBC # (test code = 0.02 x10 3/uL 0.0-0.1 N NRBC#) MANUAL DIFF REQUIRED (test code NO = MDIFF) GLUCOSE [id number] 00:26:00 Test Item Value Reference Range Interpretation Comments GLUCOSE BEDSIDE (test 131 MG/DL 70-110 H Perfor med by certified code = GLUBED) 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 [facility] GLUCOSE [id number] 00:24:00 Test Item Value Reference Range Interpretation Comments GLUCOSE BEDSIDE (test 89 MG/DL 70-110 N Perfor med by certified code = GLUBED) 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 [facility] - XR CHEST 1 [id number] 00:00:00 [facility] 1975 Sex: M FAX: Nash Yin [phone] [place]: St: ADM FAX: Nithin Rowan MD [phone] Name: MARTY BASS [facility] Yogi Eduardo : 1975 Age/S: 46/M [address] [place] [address] Unit #: [id number] Loc: G.[address] [place] [address] Phys: Nash Kemp MD Acct: [id number] Dis Date: Status: ADM IN PHONE #: [phone] Exam Date: 03/30/202232 FAX #: [phone] Reason: Cardiac Surgery Post Op EXAMS: CPT CODE: [id number] XR CHEST 1 V 22504 PROCEDURE INFORMATION: Exam: XR Chest Exam date and time: 03/30/2022 6:18 AM Age: 46 years old Clinical indication: Other: Cardiac surgery post op TECHNIQUE: Imaging protocol: Radiologic exam of the chest. Views: 1 view. COMPARISON: 1. CR XR CHEST 1V 03/29/2022 5:20 AM 2. CR XR C HEST 1V 03/28/2022 5:33 AM FINDINGS: Tubes, catheters and devices: Mediastinal and left thoracostomydrains have been removed. Right IJ Dallas-Shiva catheter sheath in place. Lungs: Indistinct interstitial opacities bilateral. Decreased airspace opacities in the mid and lower lung zones. The left hemidiaphragm remains partially obscured. The right remains sharp. Pleural spaces: Small residual apical pneumothorax with separation less than 1 cm, decreased. Decreased left pleural effusion. No gross right pleural effusion. Heart/Mediastinum: Moderate prominence of the cardiomediastinal silhouette is stable. Bones/joints: Sternotomy wires are intact. IMPRESSION: 1. Improved aeration with decreased airspace opacities suggesting resolving edema and or atelectasis. 2. Improved aeration left base with decreased left pleural effusion. Decreased small left pneumothorax. 3. Stable postoperative cardiomediastinal silhouette. at 0852 Reported and signed by: Abimael Aburto M.D. CC: Nash Kemp MD; Nithin Chaudhry MD Technologist: Broderick Nation; RT Kayleigh(R) Trnscrd Date/Time/By: 03/30/2022 (0852) : By: SadiaKWL Orig Print D/T: S: 03/30/2022 (0852) PAGE 1 Signed ReportBASIC METABOLIC PANEL 2022-03-29 21:37:00 Test Item Value Reference Range Interpretation Comments SODIUM (test code = 136 mEq/L 134-147 N NA) POTASSIUM (test code 5.0 mEq/L 3.4-5.0 = K) CHLORIDE (test code 105 mEq/L 100-108 N = CL) CARBON DIOXIDE (test 21 mEq/l 21-33 N code = CO2) ANION GAP (test code 15 0-20 N = GAP) GLUCOSE (test code = 285 mg/dL 70-110 H GLU) BLOOD UREA NITROGEN 44 mg/dL 7-18 H (test code = BUN) GLOMERULAR 15.2 95-105 L The Glomerular FILTRATION RATE Filtration R ate is a (test code = GFR) calculated parameterbased on serum Creatinine, pat ient age and sex. GFR va luesless than 60 mL/min/ 1.73 square meters a re indicative ofCh ronic Kidney Disease. Values less than 15 mL/min/1.73squa re meters indicate Kidney failure. The calculation forGFR is based on the CKD-EPI (2020) calculat ion. This formulais race indifferent and is the recommended for piero for GFRby the Natio nal Kidney Foundati on for Adults.The GFR will not calculate if th e sex is unknown or if thepatient's ag e is <18 years. CREATININE (test 4.6 mg/dL 0.6-1.3 H code = CREAT) CALCIUM (test code = 9.1 mg/dL 8.0-10.5 N CA) [id number] 21:37:00 Test Item Value Reference Range Interpretation Comments PHOSPHOROUS (test code = PHOS) 3.9 MG/DL 2.5-4.9 [id number] 21:37:00 Test Item Value Reference Range Interpretation Comments MAGNESIUM (test code = MAG) 2.02 mg/dL 1.80-2.40 N CALCIUM [id number] 21:37:00 Test Item Value Reference Range Interpretation Comments CALCIUM IONIZED (test code = JULIO) 1.23 MMOL/L 1.09-1.30 N BASIC METABOLIC [id number] 16:21:00 Test Item Value Reference Range Interpretation Comments SODIUM (test code = 138 mEq/L 134-147 N NA) POTASSIUM (test code 4.1 mEq/L 3.4-5.0 N = K) CHLORIDE (test code 108 mEq/L 100-108 N = CL) CARBON DIOXIDE (test 23 mEq/l 21-33 N code = CO2) ANION GAP (test code 11 0-20 N = GAP) GLUCOSE (test code = 199 mg/dL 70-110 H GLU) BLOOD UREA NITROGEN 38 mg/dL 7-18 H (test code = BUN) GLOMERULAR 17.4 95-105 L The Glomerular FILTRATION RATE Filtration R ate is a (test code = GFR) calculated parameterbased on serum Creatinine, pat ient age and sex. GFR va luesless than 60 mL/min/ 1.73 square meters a re indicative ofCh ronic Kidney Disease. Values less than 15 mL/min/1.73squa re meters indicate Kidney failure. The calculation forGFR is based on the CKD-EPI (2020) calculat ion. This formulais race indifferent and is the recommended for piero for GFRby the [facility]ati on for Adults.The GFR will not calculate if th e sex is unknown or if thepatient's ag e is <18 years. CREATININE (test 4.1 mg/dL 0.6-1.3 H code = CREAT) CALCIUM (test code = 9.1 mg/dL 8.0-10.5 N CA) [id number] 16:21:00 Test Item Value Reference Range Interpretation Comments PHOSPHOROUS (test code = PHOS) 2.9 MG/DL 2.5-4.9 N [id number] 16:21:00 Test Item Value Reference Range Interpretation Comments MAGNESIUM (test code = MAG) 1.97 mg/dL 1.80-2.40 N CALCIUM [id number] 16:21:00 Test Item Value Reference Range Interpretation Comments CALCIUM IONIZED (test code = JULIO) 1.26 MMOL/L 1.09-1.30 N GLUCOSE [id number] 15:53:00 Test Item Value Reference Range Interpretation Comments GLUCOSE BEDSIDE (test 162 MG/DL 70-110 H Perfor med by certified code = GLUBED) 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 [facility] GLUCOSE [id number] 13:02:00 Test Item Value Reference Range Interpretation Comments GLUCOSE BEDSIDE (test 174 MG/DL 70-110 H Perfor med by certified code = GLUBED) 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 [facility] GLUCOSE [id number] 10:34:00 Test Item Value Reference Range Interpretation Comments GLUCOSE BEDSIDE (test 125 MG/DL 70-110 H Perfor med by certified code = GLUBED) 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 [facility] BASIC METABOLIC [id number] 10:25:00 Test Item Value Reference Range Interpretation Comments SODIUM (test code = 138 mEq/L 134-147 N NA) POTASSIUM (test code 4.2 mEq/L 3.4-5.0 N = K) CHLORIDE (test code 107 mEq/L 100-108 N = CL) CARBON DIOXIDE (test 21 mEq/l 21-33 N code = CO2) ANION GAP (test code 15 0-20 N = GAP) GLUCOSE (test code = 127 mg/dL 70-110 H GLU) BLOOD UREA NITROGEN 36 mg/dL 7-18 H (test code = BUN) GLOMERULAR 15.6 95-105 L The Glomerular FILTRATION RATE Filtration R ate is a (test code = GFR) calculated parameterbased on serum Creatinine, pat ient age and sex. GFR va luesless than 60 mL/min/ 1.73 square meters a re indicative ofCh ronic Kidney Disease. Values less than 15 mL/min/1.73squa re meters indicate Kidney failure. The calculation forGFR is based on the CKD-EPI (2020) calculat ion. This formulais race indifferent and is the recommended for piero for GFRby the [facility] Kidney Foundati on for Adults.The GFR will not calculate if th e sex is unknown or if thepatient's ag e is <18 years. CREATININE (test 4.5 mg/dL 0.6-1.3 H code = CREAT) CALCIUM (test code = 9.1 mg/dL 8.0-10.5 N CA) [id number] 10:25:00 Test Item Value Reference Range Interpretation Comments PHOSPHOROUS (test code = PHOS) 3.1 MG/DL 2.5-4.9 N [id number] 10:25:00 Test Item Value Reference Range Interpretation Comments MAGNESIUM (test code = MAG) 2.06 mg/dL 1.80-2.40 N CALCIUM [id number] 10:25:00 Test Item Value Reference Range Interpretation Comments CALCIUM IONIZED (test code = JULIO) 1.25 MMOL/L 1.09-1.30 N CBC W/AUTO [id number] 09:54:00 Test Item Value Reference Range Interpretation Comments WHITE BLOOD CELL (test code = 8.9 x10 3/uL 4.5-11.0 N WBC) RED BLOOD CELL (test code = 2.55 x10 6/uL 4.00-5.60 L RBC) HEMOGLOBIN (test code = HGB) 7.3 g/dL 12.5-16.9 L HEMATOCRIT (test code = HCT) 22.9 % 37.5-50.7 L MEAN CELL VOLUME (test code = 89.8 fL 81.0-99.0 N MCV) MEAN CELL HGB (test code = MCH) 28.6 pg 27.0-33.0 N MEAN CELL HGB CONCETRATION 31.9 g/dL 33.0-37.0 L (test code = MCHC) RED CELL DISTRIBUTION WIDTH CV 17.2 % 11.5-14.5 H (test code = RDW) RED CELL DISTRIBUTION WIDTH SD 55.8 fL 37.0-54.0 H (test code = RDW-SD) PLATELET COUNT (test code = 138 x10 3/uL 150-400 L PLT) MEAN PLATELET VOLUME (test code 11.4 fL 7.0-9.0 H = MPV) NEUTROPHIL % (test code = NT%) 79.3 % 56.0-77.0 H IMMATURE GRANULOCYTE % (test 0.3 % 0.0-2.0 N code = IG%) LYMPHOCYTE % (test code = LY%) 9.6 % 14.0-32.0 L MONOCYTE % (test code = MO%) 8.2 % 4.8-9.0 N EOSINOPHIL % (test code = EO%) 2.5 % 0.3-3.7 N BASOPHIL % (test code = BA%) 0.1 % 0.0-2.0 N NUCLEATED RBC % (test code = 0.0 % 0-0 N NRBC%) NEUTROPHIL # (test code = NT#) 7.06 x10 3/uL 2.0-7.6 N IMMATURE GRANULOCYTE # (test 0.03 x10 3/uL 0.00-0.03 N code = IG#) LYMPHOCYTE # (test code = LY#) 0.85 x10 3/uL 1.0-3.8 L MONOCYTE # (test code = MO#) 0.73 x10 3/uL 0.1-0.8 N EOSINOPHIL # (test code = EO#) 0.22 x10 3/uL 0.0-0.2 H BASOPHIL # (test code = BA#) 0.01 x10 3/uL 0.0-0.2 N NUCLEATED RBC # (test code = 0.00 x10 3/uL 0.0-0.1 N NRBC#) MANUAL DIFF REQUIRED (test code NO = MDIFF) GLUCOSE [id number] 05:57:00 Test Item Value Reference Range Interpretation Comments GLUCOSE BEDSIDE (test 105 MG/DL 70-110 N Perfor med by certified code = GLUBED) 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 [facility] GLUCOSE [id number] 04:54:00 Test Item Value Reference Range Interpretation Comments GLUCOSE BEDSIDE (test 92 MG/DL 70-110 N Perfor med by certified code = GLUBED) 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 [facility] BASIC METABOLIC [id number] 03:33:00 Test Item Value Reference Range Interpretation Comments SODIUM (test code = 139 mEq/L 134-147 N NA) POTASSIUM (test code 4.6 mEq/L 3.4-5.0 N = K) CHLORIDE (test code 105 mEq/L 100-108 N = CL) CARBON DIOXIDE (test 24 mEq/l 21-33 N code = CO2) ANION GAP (test code 14 0-20 N = GAP) GLUCOSE (test code = 66 mg/dL 70-110 L GLU) BLOOD UREA NITROGEN 42 mg/dL 7-18 H (test code = BUN) GLOMERULAR 12.8 95-105 L The Glomerular FILTRATION RATE Filtration R ate is a (test code = GFR) calculated parameterbased on serum Creatinine, pat ient age and sex. GFR va luesless than 60 mL/min/ 1.73 square meters a re indicative ofCh ronic Kidney Disease. Values less than 15 mL/min/1.73squa re meters indicate Kidney failure. The calculation forGFR is based on the CKD-EPI (2020) calculat ion. This formulais race indifferent and is the recommended for piero for GFRby the Natio n[facility] Kidney Foundati on for Adults.The GFR will not calculate if th e sex is unknown or if thepatient's ag e is <18 years. CREATININE (test 5.3 mg/dL 0.6-1.3 H code = CREAT) CALCIUM (test code = 9.2 mg/dL 8.0-10.5 N CA) HEPATIC FUNCTION [id number] 03:33:00 Test Item Value Reference Range Interpretation Comments TOTAL PROTEIN (test code = PROT) 6.4 g/dL 6.4-8.2 N ALBUMIN (test code = ALB) 2.90 g/dL 3.4-5.0 L BILIRUBIN TOTAL (test code = 0.50 mg/dL 0.0-1.0 N BILT) BILIRUBIN DIRECT (test code = 0.30 MG/DL 0.0-0.30 N BILD) SGOT/AST (test code = AST) 18 IUnit/L 15-37 N SGPT/ALT (test code = ALT) < 7 IUnit/L 30-65 L ALKALINE PHOSPHATASE TOTAL (test 133 IUnit/L 20-125 H code = ALKP) BILIRUBIN INDIRECT (test code = 0.20 MG/DL BILIND) [id number] 03:33:00 Test Item Value Reference Range Interpretation Comments PHOSPHOROUS (test code = PHOS) 3.8 MG/DL 2.5-4.9 N [id number] 03:33:00 Test Item Value Reference Range Interpretation Comments MAGNESIUM (test code = MAG) 2.25 mg/dL 1.80-2.40 N CALCIUM [id number] 03:33:00 Test Item Value Reference Range Interpretation Comments CALCIUM IONIZED (test code = JULIO) 1.25 MMOL/L 1.09-1.30 N GLUCOSE [id number] 03:32:00 Test Item Value Reference Range Interpretation Comments GLUCOSE BEDSIDE (test 113 MG/DL 70-110 H Perfor med by certified code = GLUBED) 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 [facility] POC ARTERIAL BLOOD [id number] 03:23:00 Test Item Value Reference Range Interpretation Comments POC ARTERIAL BLOOD GAS PH (test 7.347 7.35-7.45 L code = POCPHA) POC ARTERIAL BLOOD GAS PCO2 43.7 mmHg 35.0-45 N (test code = [id number]) POC TCO2 ARTERIAL (test code = 25.4 POCTCO2) POC ARTERIAL BLOOD GAS PO2 (test 107.0 mmHg 80-100.0 H code = DOPHB1Y) POC HCO3 ARTERIAL (test code = 24.0 MMOL/L 22.0-26.0 N [id number]) POC BASE EXCESS (test code = -1.7 MMOL/L -4.0-4.0 N POCBEA) POC O2 SATURATION (test code = 97.9 % 90-100 N POCO2S) FIO2 (test code = FIO2A) 44 % PaO2/FiO2 (test code = [id number]) 243.18 mm/Hg ABG DELIVERY (test code = [place]) Cannula ABG TEMPERATURE (test code = 98 F TEMPA) ABG SITE (test code = SITEA) Art Line BASIC METABOLIC [id number] 03:23:00 Test Item Value Reference Range Interpretation Comments SODIUM (test code = NA/ABG) 137 mmol/L 134-147 N POTASSIUM (test code = K/ABG) 4.4 mmol/L 3.4-5.0 N CHLORIDE (test code = CL/ABG) 104 mmol/L 100-108 N CREATININE ABG (test code = 5.2 mg/dL 0.8-1.3 H CREAABG) POC IONIZED CALCIUM (test code = 1.32 MMOL/L 1.12-1.32 N POCCA) POC GLUCOSE (test code = POCGLU) 63 MG/DL 70-110 L HEMOGLOBIN [id number] 03:23:00 Test Item Value Reference Range Interpretation Comments HEMOGLOBIN ABG (test code = HGB/ABG) 7.6 G/DL 12.5-16.9 L [id number] 03:23:00 Test Item Value Reference Range Interpretation Comments HEMATOCRIT (test code = HCT/ABG) 22 % 37.5-50.7 L POC LACTIC [id number] 03:23:00 Test Item Value Reference Range Interpretation Comments POC LACTIC ACID (test code = 0.6 mmol/l 0.9-1.7 L POCLAC) GLUCOSE [id number] 03:03:00 Test Item Value Reference Range Interpretation Comments GLUCOSE BEDSIDE (test 61 MG/DL 70-110 L Perfor med by certified code = GLUBED) 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 [facility] CBC W/AUTO [id number] 02:59:00 Test Item Value Reference Range Interpretation Comments WHITE BLOOD CELL (test code = 9.8 x10 3/uL 4.5-11.0 N WBC) RED BLOOD CELL (test code = 2.59 x10 6/uL 4.00-5.60 L RBC) HEMOGLOBIN (test code = HGB) 7.3 g/dL 12.5-16.9 L HEMATOCRIT (test code = HCT) 23.1 % 37.5-50.7 L MEAN CELL VOLUME (test code = 89.2 fL 81.0-99.0 N MCV) MEAN CELL HGB (test code = MCH) 28.2 pg 27.0-33.0 N MEAN CELL HGB CONCETRATION 31.6 g/dL 33.0-37.0 L (test code = MCHC) RED CELL DISTRIBUTION WIDTH CV 17.2 % 11.5-14.5 H (test code = RDW) RED CELL DISTRIBUTION WIDTH SD 55.8 fL 37.0-54.0 H (test code = RDW-SD) PLATELET COUNT (test code = 142 x10 3/uL 150-400 L PLT) MEAN PLATELET VOLUME (test code 11.0 fL 7.0-9.0 H = MPV) NEUTROPHIL % (test code = NT%) 76.9 % 56.0-77.0 N IMMATURE GRANULOCYTE % (test 0.3 % 0.0-2.0 N code = IG%) LYMPHOCYTE % (test code = LY%) 10.4 % 14.0-32.0 L MONOCYTE % (test code = MO%) 9.2 % 4.8-9.0 H EOSINOPHIL % (test code = EO%) 3.0 % 0.3-3.7 N BASOPHIL % (test code = BA%) 0.2 % 0.0-2.0 N NUCLEATED RBC % (test code = 0.0 % 0-0 N NRBC%) NEUTROPHIL # (test code = NT#) 7.53 x10 3/uL 2.0-7.6 N IMMATURE GRANULOCYTE # (test 0.03 x10 3/uL 0.00-0.03 N code = IG#) LYMPHOCYTE # (test code = LY#) 1.02 x10 3/uL 1.0-3.8 N MONOCYTE # (test code = MO#) 0.90 x10 3/uL 0.1-0.8 H EOSINOPHIL # (test code = EO#) 0.29 x10 3/uL 0.0-0.2 H BASOPHIL # (test code = BA#) 0.02 x10 3/uL 0.0-0.2 N NUCLEATED RBC # (test code = 0.00 x10 3/uL 0.0-0.1 N NRBC#) MANUAL DIFF REQUIRED (test code NO = MDIFF) - XR CHEST 1 [id number] 00:00:00 [facility] 1975 Sex: M FAX: Nash Yin [phone] Barrett: St: ADM FAX: Bill Arteaga MD [phone] FAX: Nithin Rowan MD [phone] Name: MARTY BASS [facility] [place] : 1975 Age/S: 46/M [address] [place] [address] Unit #: [id number] Loc: [address] [address] Phys: Nash Kemp MD Acct: [id number] Dis Date: Status: ADM IN PHONE #: [phone] Exam Date: 03/29/2022623 FAX #: [phone] Reason: Cardiac Surgery Post Op EXAMS: CPT CODE: [id number] XR CHEST 1 V [id number] PROCEDURE INFORMATION: Exam: XR Chest Exam date and time: 03/29/2022 5:20 AM Age: 46 years old Clinical indication: Other: Cardiac surgery postop TECHNIQUE: Imaging protocol: Radiologic exam of the chest. Views: 1 view. COMPARISON: CR XR CHEST 1V 03/28/2022 5:33 AM FINDINGS: Tubes, catheters and devices: Stable lines and tubes. Lungs: Bilateral lung opacities have mildly increased. Pleural spaces: Mild increased size of left pneumothorax which probably involves less than 10% volume. Stable left chest tube. Question small left pleural effusion. Heart/Mediastinum: The enlarged heart size is stable. Bones/joints: Stable. IMPRESSION: 1. Mild increased size of left pneumothorax which probably involves less than 10% volume. Stable left chest tube. 2. Mildly worsening lung opacities. at 0762 Reported and signed by: Roger Nixon M.D. CC: Nash Kemp MD; Bill Yeager MD; Nithin Chaudhry MD Technologist: RT Dariusz(R) Trnhird Date/Time/By: 03/29/2022 (0732) : By: [email or web address] Orig Print D/T: S: 03/29/2022 (0794) PAGE 1 Signed ReportPO ARTERIAL BLOOD [id number] 21:59:00 Test Item Value Reference Range Interpretation Comments POC ARTERIAL BLOOD GAS PH (test 7.342 7.35-7.45 L code = POCPHA) POC ARTERIAL BLOOD GAS PCO2 39.1 mmHg 35.0-45 N (test code = [id number]) POC TCO2 ARTERIAL (test code = 22.6 POCTCO2) POC ARTERIAL BLOOD GAS PO2 (test 84.5 mmHg 80-100.0 N code = AEQOR0B) POC HCO3 ARTERIAL (test code = 21.4 MMOL/L 22.0-26.0 L [id number]) POC BASE EXCESS (test code = -4.5 MMOL/L -4.0-4.0 L POCBEA) POC O2 SATURATION (test code = 96.1 % 90-100 N POCO2S) FIO2 (test code = FIO2A) 44 % PaO2/FiO2 (test code = [id number]) 192.04 mm/Hg ABG DELIVERY (test code = [place]) Cannula ABG TEMPERATURE (test code = 97.4 F TEMPA) ABG SITE (test code = SITEA) Art Line BASIC METABOLIC [id number] 21:59:00 Test Item Value Reference Range Interpretation Comments SODIUM (test code = NA/ABG) 135 mmol/L 134-147 N POTASSIUM (test code = K/ABG) 4.6 mmol/L 3.4-5.0 N CHLORIDE (test code = CL/ABG) 105 mmol/L 100-108 N CREATININE ABG (test code = 5.9 mg/dL 0.8-1.3 H CREAABG) POC IONIZED CALCIUM (test code = 1.32 MMOL/L 1.12-1.32 N POCCA) POC GLUCOSE (test code = POCGLU) 124 MG/DL 70-110 H HEMOGLOBIN [id number] 21:59:00 Test Item Value Reference Range Interpretation Comments HEMOGLOBIN ABG (test code = HGB/ABG) 8.3 G/DL 12.5-16.9 L [id number] 21:59:00 Test Item Value Reference Range Interpretation Comments HEMATOCRIT (test code = HCT/ABG) 24 % 37.5-50.7 L POC LACTIC [id number] 21:59:00 Test Item Value Reference Range Interpretation Comments POC LACTIC ACID (test code = 1.3 mmol/l 0.9-1.7 N POCLAC) BASIC METABOLIC [id number] 21:15:00 Test Item Value Reference Range Interpretation Comments SODIUM (test code = 137 mEq/L 134-147 N NA) POTASSIUM (test code 4.7 mEq/L 3.4-5.0 N = K) CHLORIDE (test code 106 mEq/L 100-108 N = CL) CARBON DIOXIDE (test 22 mEq/l 21-33 N code = CO2) ANION GAP (test code 14 0-20 N = GAP) GLUCOSE (test code = 119 mg/dL 70-110 H GLU) BLOOD UREA NITROGEN 46 mg/dL 7-18 H (test code = BUN) GLOMERULAR 11.5 95-105 L The Glomerular FILTRATION RATE Filtration R ate is a (test code = GFR) calculated parameterbased on serum Creatinine, pat ient age and sex. GFR va luesless than 60 mL/min/ 1.73 square meters a re indicative ofCh ronic Kidney Disease. Values less than 15 mL/min/1.73squa re meters indicate Kidney failure. The calculation forGFR is based on the CKD-EPI (2020) calculat ion. This formulais race indifferent and is the recommended for piero for GFRby the [facility] for Ad[facility].The GFR will not calculate if th e sex is unknown or if thepatient's ag e is <18 years. CREATININE (test 5.8 mg/dL 0.6-1.3 H code = CREAT) CALCIUM (test code = 9.0 mg/dL 8.0-10.5 N CA) [id number] 21:15:00 Test Item Value Reference Range Interpretation Comments PHOSPHOROUS (test code = PHOS) 3.8 MG/DL 2.5-4.9 N [id number] 21:15:00 Test Item Value Reference Range Interpretation Comments MAGNESIUM (test code = MAG) 2.41 mg/dL 1.80-2.40 H CALCIUM [id number] 21:15:00 Test Item Value Reference Range Interpretation Comments CALCIUM IONIZED (test code = JULIO) 1.23 MMOL/L 1.09-1.30 N GLUCOSE [id number] 16:15:00 Test Item Value Reference Range Interpretation Comments GLUCOSE BEDSIDE (test 257 MG/DL 70-110 H Perfor med by certified code = GLUBED) 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 [facility] HEMOGLOBIN [id number] 16:09:00 Test Item Value Reference Range Interpretation Comments HEMOGLOBIN ABG (test code = HGB/ABG) 7.6 G/DL 12.5-16.9 L [id number] 16:09:00 Test Item Value Reference Range Interpretation Comments HEMATOCRIT (test code = HCT/ABG) 22 % 37.5-50.7 L POC LACTIC [id number] 16:09:00 Test Item Value Reference Range Interpretation Comments POC LACTIC ACID (test code = 0.7 mmol/l 0.9-1.7 L POCLAC) POC ARTERIAL BLOOD [id number] 16:09:00 Test Item Value Reference Range Interpretation Comments POC ARTERIAL BLOOD GAS PH (test 7.314 7.35-7.45 L code = POCPHA) POC ARTERIAL BLOOD GAS PCO2 (test 36.6 mmHg 35.0-45 N code = YOUOTU6H) POC TCO2 ARTERIAL (test code = 19.7 POCTCO2) POC ARTERIAL BLOOD GAS PO2 (test 147.2 mmHg 80-100.0 H code = MNOVB8F) POC HCO3 ARTERIAL (test code = 18.6 MMOL/L 22.0-26.0 L [id number]) POC BASE EXCESS (test code = -7.6 MMOL/L -4.0-4.0 L POCBEA) POC O2 SATURATION (test code = 99.1 % 90-100 N POCO2S) ABG DELIVERY (test code = [place]) Cannula ABG SITE (test code = SITEA) Art Line ROXY'S TEST (test code = ALLENS) N/A BASIC METABOLIC [id number] 16:09:00 Test Item Value Reference Range Interpretation Comments SODIUM (test code = NA/ABG) 132 mmol/L 134-147 L POTASSIUM (test code = K/ABG) 5.2 mmol/L 3.4-5.0 H CHLORIDE (test code = CL/ABG) 105 mmol/L 100-108 N CREATININE ABG (test code = 6.5 mg/dL 0.8-1.3 H CREAABG) POC IONIZED CALCIUM (test code = 1.31 MMOL/L 1.12-1.32 N POCCA) POC GLUCOSE (test code = POCGLU) 281 MG/DL 70-110 H BASIC METABOLIC [id number] 14:46:00 Test Item Value Reference Range Interpretation Comments SODIUM (test code = 134 mEq/L 134-147 N NA) POTASSIUM (test code 5.0 mEq/L 3.4-5.0 N = K) CHLORIDE (test code 104 mEq/L 100-108 N = CL) CARBON DIOXIDE (test 20 mEq/l 21-33 L code = CO2) ANION GAP (test code 15 0-20 N = GAP) GLUCOSE (test code = 244 mg/dL 70-110 H GLU) BLOOD UREA NITROGEN 44 mg/dL 7-18 H (test code = BUN) GLOMERULAR 10.4 95-105 L The Glomerular FILTRATION RATE Filtration R ate is a (test code = GFR) calculated parameterbased on serum Creatinine, pat ient age and sex. GFR va luesless than 60 mL/min/ 1.73 square meters a re indicative ofCh ronic Kidney Disease. Values less than 15 mL/min/1.73squa re meters indicate Kidney failure. The calculation forGFR is based on the CKD-EPI (2020) calculat ion. This formulais race indifferent and is the recommended for piero for GFRby the [facility] for Ad[facility].The GFR will not calculate if th e sex is unknown or if thepatient's ag e is <18 years. CREATININE (test 6.3 mg/dL 0.6-1.3 H code = CREAT) CALCIUM (test code = 9.1 mg/dL 8.0-10.5 N CA) POC ARTERIAL BLOOD [id number] 12:25:00 Test Item Value Reference Range Interpretation Comments POC ARTERIAL BLOOD GAS PH (test 7.343 7.35-7.45 L code = POCPHA) POC ARTERIAL BLOOD GAS PCO2 (test 41.5 mmHg 35.0-45 N code = AGTCYK1U) POC TCO2 ARTERIAL (test code = 23.8 POCTCO2) POC ARTERIAL BLOOD GAS PO2 (test 217.8 mmHg 80-100.0 HH code = YHYFB3U) POC HCO3 ARTERIAL (test code = 22.5 MMOL/L 22.0-26.0 N [id number]) POC BASE EXCESS (test code = -3.2 MMOL/L -4.0-4.0 N POCBEA) POC O2 SATURATION (test code = 99.7 % 90-100 N POCO2S) ABG DELIVERY (test code = [place]) Cannula ABG SITE (test code = SITEA) Art Line BASIC METABOLIC [id number] 12:25:00 Test Item Value Reference Range Interpretation Comments SODIUM (test code = NA/ABG) 135 mmol/L 134-147 N POTASSIUM (test code = K/ABG) 5.0 mmol/L 3.4-5.0 N CHLORIDE (test code = CL/ABG) 104 mmol/L 100-108 N CREATININE ABG (test code = 7.1 mg/dL 0.8-1.3 H CREAABG) POC IONIZED CALCIUM (test code = 1.28 MMOL/L 1.12-1.32 N POCCA) POC GLUCOSE (test code = POCGLU) 159 MG/DL 70-110 H HEMOGLOBIN [id number] 12:25:00 Test Item Value Reference Range Interpretation Comments HEMOGLOBIN ABG (test code = 14.4 G/DL 12.5-16.9 N HGB/ABG) [id number] 12:25:00 Test Item Value Reference Range Interpretation Comments HEMATOCRIT (test code = HCT/ABG) 42 % 37.5-50.7 N POC LACTIC [id number] 12:25:00 Test Item Value Reference Range Interpretation Comments POC LACTIC ACID (test code = 0.4 mmol/l 0.9-1.7 L POCLAC) GLUCOSE [id number] 12:18:00 Test Item Value Reference Range Interpretation Comments GLUCOSE BEDSIDE (test 160 MG/DL 70-110 H Perfor med by certified code = GLUBED) 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 [facility] GLUCOSE [id number] 08:56:00 Test Item Value Reference Range Interpretation Comments GLUCOSE BEDSIDE (test 107 MG/DL 70-110 N Perfor med by certified code = GLUBED) 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 [facility] GLUCOSE [id number] 06:05:00 Test Item Value Reference Range Interpretation Comments GLUCOSE BEDSIDE (test 234 MG/DL 70-110 H Perfor med by certified code = GLUBED) 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 [facility] BASIC METABOLIC [id number] 04:15:00 Test Item Value Reference Range Interpretation Comments SODIUM (test code = 135 mEq/L 134-147 N NA) POTASSIUM (test code 4.9 mEq/L 3.4-5.0 N = K) CHLORIDE (test code 104 mEq/L 100-108 N = CL) CARBON DIOXIDE (test 22 mEq/l 21-33 N code = CO2) ANION GAP (test code 13 0-20 N = GAP) GLUCOSE (test code = 296 mg/dL 70-110 H GLU) BLOOD UREA NITROGEN 40 mg/dL 7-18 H (test code = BUN) GLOMERULAR 11.7 95-105 L The Glomerular FILTRATION RATE Filtration R ate is a (test code = GFR) calculated parameterbased on serum Creatinine, pat ient age and sex. GFR va luesless than 60 mL/min/ 1.73 square meters a re indicative ofCh ronic Kidney Disease. Values less than 15 mL/min/1.73squa re meters indicate Kidney failure. The calculation forGFR is based on the CKD-EPI (2020) calculat ion. This formulais race indifferent and is the recommended for piero for GFRby the [facility] for Ad[facility].The GFR will not calculate if th e sex is unknown or if thepatient's ag e is <18 years. CREATININE (test 5.7 mg/dL 0.6-1.3 H code = CREAT) CALCIUM (test code = 9.2 mg/dL 8.0-10.5 N CA) COMMENTS: POD #1HEPATIC FUNCTION [id number] 04:15:00 Test Item Value Reference Range Interpretation Comments TOTAL PROTEIN (test code = PROT) 6.2 g/dL 6.4-8.2 L ALBUMIN (test code = ALB) 2.90 g/dL 3.4-5.0 L BILIRUBIN TOTAL (test code = 0.50 mg/dL 0.0-1.0 N BILT) BILIRUBIN DIRECT (test code = 0.30 MG/DL 0.0-0.30 N BILD) BILIRUBIN INDIRECT (test code = 0.20 MG/DL BILIND) SGOT/AST (test code = AST) 16 IUnit/L 15-37 N SGPT/ALT (test code = ALT) < 7 IUnit/L 30-65 L ALKALINE PHOSPHATASE TOTAL (test 124 IUnit/L 20-125 code = ALKP) COMMENTS: POD #[id number] 04:15:00 Test Item Value Reference Range Interpretation Comments MAGNESIUM (test code = MAG) 2.48 mg/dL 1.80-2.40 H COMMENTS: POD #1CBC W/AUTO [id number] 03:57:00 Test Item Value Reference Range Interpretation Comments WHITE BLOOD CELL (test code = 11.1 x10 3/uL 4.5-11.0 H WBC) RED BLOOD CELL (test code = 2.68 x10 6/uL 4.00-5.60 L RBC) HEMOGLOBIN (test code = HGB) 7.8 g/dL 12.5-16.9 L HEMATOCRIT (test code = HCT) 24.1 % 37.5-50.7 L MEAN CELL VOLUME (test code = 89.9 fL 81.0-99.0 N MCV) MEAN CELL HGB (test code = MCH) 29.1 pg 27.0-33.0 N MEAN CELL HGB CONCETRATION 32.4 g/dL 33.0-37.0 L (test code = MCHC) RED CELL DISTRIBUTION WIDTH CV 17.9 % 11.5-14.5 H (test code = RDW) RED CELL DISTRIBUTION WIDTH SD 58.4 fL 37.0-54.0 H (test code = RDW-SD) PLATELET COUNT (test code = 149 x10 3/uL 150-400 L PLT) MEAN PLATELET VOLUME (test code 10.5 fL 7.0-9.0 H = MPV) NEUTROPHIL % (test code = NT%) 75.9 % 56.0-77.0 N IMMATURE GRANULOCYTE % (test 0.4 % 0.0-2.0 N code = IG%) LYMPHOCYTE % (test code = LY%) 12.8 % 14.0-32.0 L MONOCYTE % (test code = MO%) 9.4 % 4.8-9.0 H EOSINOPHIL % (test code = EO%) 1.4 % 0.3-3.7 N BASOPHIL % (test code = BA%) 0.1 % 0.0-2.0 N NUCLEATED RBC % (test code = 0.0 % 0-0 N NRBC%) NEUTROPHIL # (test code = NT#) 8.40 x10 3/uL 2.0-7.6 H IMMATURE GRANULOCYTE # (test 0.04 x10 3/uL 0.00-0.03 H code = IG#) LYMPHOCYTE # (test code = LY#) 1.41 x10 3/uL 1.0-3.8 N MONOCYTE # (test code = MO#) 1.04 x10 3/uL 0.1-0.8 H EOSINOPHIL # (test code = EO#) 0.15 x10 3/uL 0.0-0.2 N BASOPHIL # (test code = BA#) 0.01 x10 3/uL 0.0-0.2 N NUCLEATED RBC # (test code = 0.00 x10 3/uL 0.0-0.1 N NRBC#) MANUAL DIFF REQUIRED (test code NO = MDIFF) POC ARTERIAL BLOOD [id number] 03:39:00 Test Item Value Reference Range Interpretation Comments POC ARTERIAL BLOOD GAS PH (test 7.371 7.35-7.45 N code = POCPHA) POC ARTERIAL BLOOD GAS PCO2 (test 39.0 mmHg 35.0-45 N code = ZKVZBU5H) POC TCO2 ARTERIAL (test code = 23.9 POCTCO2) POC ARTERIAL BLOOD GAS PO2 (test 67.6 mmHg 80-100.0 L code = SFVAX8V) POC HCO3 ARTERIAL (test code = 22.7 MMOL/L 22.0-26.0 N UHSIHG0Z) POC BASE EXCESS (test code = -2.7 MMOL/L -4.0-4.0 N POCBEA) POC O2 SATURATION (test code = 93.0 % 90-100 N POCO2S) ABG DELIVERY (test code = [place]) Cannula ABG TEMPERATURE (test code = 98 F TEMPA) ABG SITE (test code = SITEA) Art Line ROXY'S TEST (test code = ALLENS) N/A BASIC METABOLIC [id number] 03:39:00 Test Item Value Reference Range Interpretation Comments SODIUM (test code = NA/ABG) 134 mmol/L 134-147 N POTASSIUM (test code = K/ABG) 4.8 mmol/L 3.4-5.0 N CHLORIDE (test code = CL/ABG) 101 mmol/L 100-108 N CREATININE ABG (test code = 5.7 mg/dL 0.8-1.3 H CREAABG) POC IONIZED CALCIUM (test code = 1.27 MMOL/L 1.12-1.32 N POCCA) POC GLUCOSE (test code = POCGLU) 308 MG/DL 70-110 H HEMOGLOBIN [id number] 03:39:00 Test Item Value Reference Range Interpretation Comments HEMOGLOBIN ABG (test code = HGB/ABG) 8.0 G/DL 12.5-16.9 L [id number] 03:39:00 Test Item Value Reference Range Interpretation Comments HEMATOCRIT (test code = HCT/ABG) 24 % 37.5-50.7 L POC LACTIC [id number] 03:39:00 Test Item Value Reference Range Interpretation Comments POC LACTIC ACID (test code = 1.1 mmol/l 0.9-1.7 N POCLAC) GLUCOSE [id number] 02:42:00 Test Item Value Reference Range Interpretation Comments GLUCOSE BEDSIDE (test 271 MG/DL 70-110 H Perfor med by certified code = GLUBED) 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 [facility] - XR CHEST 1 [id number] 00:00[facility]00 [facility] 1975 Sex: M FAX: Nash Yin [phone] Barrett: St: ADM FAX: Bill Arteaga MD [phone] FAX: Nithin Rowan MD [phone] Name: MARTY BASS [facility] [place] : 1975 Age/S: 46/M [address] [place] [address] Unit #: [id number] Loc: [address] [place] [address] Phys: Nash Kemp MD Acct: [id number] Dis Date: Status: ADM IN PHONE #: [phone] Exam Date: 03/28/2022714 FAX #: [phone] Reason: Cardiac Surgery Post Op EXAMS: CPT CODE: [id number] XR CHEST 1 V [id number] PROCEDURE INFORMATION: Exam: XR Chest Exam date and time: 03/28/2022 5:33 AM Age: 46 years old Clinical indication: Other: Cardiac surgery post op TECHNIQUE: Imaging protocol: Radiologic exam of the chest. Views: 1 view. COMPARISON: CR XR CHEST 1V 03/27/2022 5:17 AM FINDINGS: Tubes, catheters and devices: Support lines and tubes unchanged and in appropriate position. Lungs: Bilateral lung opacities have slightly increased in the right lung base. Pleural spaces: No pneumothorax. Questionable left pleural effusion. Heart/Mediastinum: The heart size is stable. There are multiple median sternotomy wires and surgical clips suggesting prior CABG. Bones/joints: Stable. IMPRESSION: Slightly increased opacities in the right lung base. at 0745 Reported and signed by: Baltazar Benjamin M.D. CC: Nash Kemp MD; Bill Yeager MD; Nithin Chaudhry MD Technologist: Broder[employer] [place] Trnscrd Tim e/Time/By: 03/28/2022 (0745) : By: [email or web address] Orig Print D/T: S: 03/28/2022 (8456) PAGE 1 Signed ReportBASIC METABOLIC [id number] 22:19:00 Test Item Value Reference Range Interpretation Comments SODIUM (test code = 136 mEq/L 134-147 N NA) POTASSIUM (test code 5.1 mEq/L 3.4-5.0 H = K) CHLORIDE (test code 103 mEq/L 100-108 N = CL) CARBON DIOXIDE (test 25 mEq/l 21-33 N code = CO2) ANION GAP (test code 13 0-20 N = GAP) GLUCOSE (test code = 201 mg/dL 70-110 H GLU) BLOOD UREA NITROGEN 31 mg/dL 7-18 H (test code = BUN) GLOMERULAR 13.1 95-105 L The Glomerular FILTRATION RATE Filtration R ate is a (test code = GFR) calculated parameterbased on serum Creatinine, pat ient age and sex. GFR va luesless than 60 mL/min/ 1.73 square meters a re indicative ofCh ronic Kidney Disease. Values less than 15 mL/min/1.73squa re meters indicate Kidney failure. The calculation forGFR is based on the CKD-EPI (2020) calculat ion. This formulais race indifferent and is the recommended for piero for GFRby the [facility].The GFR will not calculate if th e sex is unknown or if thepatient's ag e is <18 years. CREATININE (test 5.2 mg/dL 0.6-1.3 H code = CREAT) CALCIUM (test code = 9.0 mg/dL 8.0-10.5 N CA) [id number] 22:19:00 Test Item Value Reference Range Interpretation Comments MAGNESIUM (test code = MAG) 2.51 mg/dL 1.80-2.40 H CBC W/AUTO [id number] 22:08:00 Test Item Value Reference Range Interpretation Comments WHITE BLOOD CELL (test code = 12.5 x10 3/uL 4.5-11.0 H WBC) RED BLOOD CELL (test code = 2.57 x10 6/uL 4.00-5.60 L RBC) HEMOGLOBIN (test code = HGB) 7.4 g/dL 12.5-16.9 L HEMATOCRIT (test code = HCT) 23.1 % 37.5-50.7 L MEAN CELL VOLUME (test code = 89.9 fL 81.0-99.0 MCV) MEAN CELL HGB (test code = MCH) 28.8 pg 27.0-33.0 N MEAN CELL HGB CONCETRATION 32.0 g/dL 33.0-37.0 L (test code = MCHC) RED CELL DISTRIBUTION WIDTH CV 17.6 % 11.5-14.5 H (test code = RDW) RED CELL DISTRIBUTION WIDTH SD 58.0 fL 37.0-54.0 H (test code = RDW-SD) PLATELET COUNT (test code = 142 x10 3/uL 150-400 L PLT) MEAN PLATELET VOLUME (test code 10.4 fL 7.0-9.0 H = MPV) NEUTROPHIL % (test code = NT%) 78.6 % 56.0-77.0 H IMMATURE GRANULOCYTE % (test 0.4 % 0.0-2.0 N code = IG%) LYMPHOCYTE % (test code = LY%) 9.1 % 14.0-32.0 L MONOCYTE % (test code = MO%) 10.5 % 4.8-9.0 H EOSINOPHIL % (test code = EO%) 1.2 % 0.3-3.7 N BASOPHIL % (test code = BA%) 0.2 % 0.0-2.0 N NUCLEATED RBC % (test code = 0.0 % 0-0 N NRBC%) NEUTROPHIL # (test code = NT#) 9.82 x10 3/uL 2.0-7.6 H IMMATURE GRANULOCYTE # (test 0.05 x10 3/uL 0.00-0.03 H code = IG#) LYMPHOCYTE # (test code = LY#) 1.14 x10 3/uL 1.0-3.8 N MONOCYTE # (test code = MO#) 1.31 x10 3/uL 0.1-0.8 H EOSINOPHIL # (test code = EO#) 0.15 x10 3/uL 0.0-0.2 N BASOPHIL # (test code = BA#) 0.02 x10 3/uL 0.0-0.2 N NUCLEATED RBC # (test code = 0.00 x10 3/uL 0.0-0.1 N NRBC#) MANUAL DIFF REQUIRED (test code NO = MDIFF) POC ARTERIAL BLOOD [id number] 21:49:00 Test Item Value Reference Range Interpretation Comments POC ARTERIAL BLOOD GAS PH (test 7.381 7.35-7.45 N code = POCPHA) POC ARTERIAL BLOOD GAS PCO2 (test 42.6 mmHg 35.0-45 N code = [id number]) POC TCO2 ARTERIAL (test code = 26.7 POCTCO2) POC ARTERIAL BLOOD GAS PO2 (test 181.0 mmHg 80-100.0 H code = [id number]) POC HCO3 ARTERIAL (test code = 25.4 MMOL/L 22.0-26.0 N [id number]) POC BASE EXCESS (test code = 0.2 MMOL/L -4.0-4.0 N POCBEA) POC O2 SATURATION (test code = 99.6 % 90-100 N POCO2S) ABG DELIVERY (test code = [place]) Cannula ABG TEMPERATURE (test code = 98 F TEMPA) ABG SITE (test code = SITEA) Art Line ROXY'S TEST (test code = [place]) N/A BASIC METABOLIC [id number] 21:49:00 Test Item Value Reference Range Interpretation Comments SODIUM (test code = NA/ABG) 134 mmol/L 134-147 N POTASSIUM (test code = K/ABG) 5.0 mmol/L 3.4-5.0 N CHLORIDE (test code = CL/ABG) 102 mmol/L 100-108 N CREATININE ABG (test code = 5.2 mg/dL 0.8-1.3 H CREAABG) POC IONIZED CALCIUM (test code = 1.27 MMOL/L 1.12-1.32 N POCCA) POC GLUCOSE (test code = POCGLU) 197 MG/DL 70-110 H HEMOGLOBIN [id number] 21:49:00 Test Item Value Reference Range Interpretation Comments HEMOGLOBIN ABG (test code = HGB/ABG) 9.9 G/DL 12.5-16.9 L [id number] 21:49:00 Test Item Value Reference Range Interpretation Comments HEMATOCRIT (test code = HCT/ABG) 29 % 37.5-50.7 L POC LACTIC [id number] 21:49:00 Test Item Value Reference Range Interpretation Comments POC LACTIC ACID (test code = 0.8 mmol/l 0.9-1.7 L POCLAC) BASIC METABOLIC [id number] 17:25:00 Test Item Value Reference Range Interpretation Comments SODIUM (test code = 136 mEq/L 134-147 N NA) POTASSIUM (test code 4.8 mEq/L 3.4-5.0 N = K) CHLORIDE (test code 103 mEq/L 100-108 N = CL) CARBON DIOXIDE (test 25 mEq/l 21-33 N code = CO2) ANION GAP (test code 13 0-20 N = GAP) GLUCOSE (test code = 211 mg/dL 70-110 H GLU) BLOOD UREA NITROGEN 24 mg/dL 7-18 H (test code = BUN) GLOMERULAR 16.0 95-105 L The Glomerular FILTRATION RATE Filtration R ate is a (test code = GFR) calculated parameterbased on serum Creatinine, pat ient age and sex. GFR va luesless than 60 mL/min/ 1.73 square meters a re indicative ofCh ronic Kidney Disease. Values less than 15 mL/min/1.73squa re meters indicate Kidney failure. The calculation forGFR is based on the CKD-EPI (2020) calculat ion. This formulais race indifferent and is the recommended for piero for GFRby the [facility] for Ad[facility].The GFR will not calculate if th e sex is unknown or if thepatient's ag e is <18 years. CREATININE (test 4.4 mg/dL 0.6-1.3 H code = CREAT) CALCIUM (test code = 8.8 mg/dL 8.0-10.5 N CA) POC ARTERIAL BLOOD [id number] 17:00:00 Test Item Value Reference Range Interpretation Comments POC ARTERIAL BLOOD GAS PH (test 7.384 7.35-7.45 N code = POCPHA) POC ARTERIAL BLOOD GAS PCO2 (test 41.4 mmHg 35.0-45 N code = [id number]) POC TCO2 ARTERIAL (test code = 26.1 POCTCO2) POC ARTERIAL BLOOD GAS PO2 (test 223.3 mmHg 80-100.0 HH code = [id number]) POC HCO3 ARTERIAL (test code = 24.8 MMOL/L 22.0-26.0 N [id number]) POC BASE EXCESS (test code = -0.4 MMOL/L -4.0-4.0 N POCBEA) POC O2 SATURATION (test code = 99.8 % 90-100 N POCO2S) ABG DELIVERY (test code = [place]) [facility] ABG TEMPERATURE (test code = 98 F TEMPA) ABG SITE (test code = SITEA) Art Line BASIC METABOLIC [id number] 17:00:00 Test Item Value Reference Range Interpretation Comments SODIUM (test code = NA/ABG) 137 mmol/L 134-147 N POTASSIUM (test code = K/ABG) 4.7 mmol/L 3.4-5.0 N CHLORIDE (test code = CL/ABG) 103 mmol/L 100-108 N CREATININE ABG (test code = 4.2 mg/dL 0.8-1.3 H CREAABG) POC IONIZED CALCIUM (test code = 1.28 MMOL/L 1.12-1.32 N POCCA) POC GLUCOSE (test code = POCGLU) 203 MG/DL 70-110 H HEMOGLOBIN [id number] 17:00:00 Test Item Value Reference Range Interpretation Comments HEMOGLOBIN ABG (test code = HGB/ABG) 7.1 G/DL 12.5-16.9 L [id number] 17:00:00 Test Item Value Reference Range Interpretation Comments HEMATOCRIT (test code = HCT/ABG) 21 % 37.5-50.7 L POC LACTIC [id number] 17:00:00 Test Item Value Reference Range Interpretation Comments POC LACTIC ACID (test code = 0.8 mmol/l 0.9-1.7 L POCLAC) GLUCOSE [id number] 12:51:00 Test Item Value Reference Range Interpretation Comments GLUCOSE BEDSIDE (test 208 MG/DL 70-110 H Perfor med by certified code = GLUBED) 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 [facility] BASIC METABOLIC [id number] 11:45:00 Test Item Value Reference Range Interpretation Comments SODIUM (test code = 136 mEq/L 134-147 N NA) POTASSIUM (test code 5.1 mEq/L 3.4-5.0 H = K) CHLORIDE (test code 104 mEq/L 100-108 N = CL) CARBON DIOXIDE (test 26 mEq/l 21-33 N code = CO2) ANION GAP (test code 11 0-20 N = GAP) GLUCOSE (test code = 251 mg/dL 70-110 H GLU) BLOOD UREA NITROGEN 21 mg/dL 7-18 H (test code = BUN) GLOMERULAR 19.1 95-105 L The Glomerular FILTRATION RATE Filtration R ate is a (test code = GFR) calculated parameterbased on serum Creatinine, pat ient age and sex. GFR va luesless than 60 mL/min/ 1.73 square meters a re indicative ofCh ronic Kidney Disease. Values less than 15 mL/min/1.73squa re meters indicate Kidney failure. The calculation forGFR is based on the CKD-EPI (2020) calculat ion. This formulais race indifferent and is the recommended for piero for GFRby the [facility] Ad[facility].The GFR will not calculate if th e sex is unknown or if thepatient's ag e is <18 years. CREATININE (test 3.8 mg/dL 0.6-1.3 H code = CREAT) CALCIUM (test code = 8.8 mg/dL 8.0-10.5 N CA) CBC W/AUTO [id number] 11:31:00 Test Item Value Reference Range Interpretation Comments WHITE BLOOD CELL (test 12.2 x10 3/uL 4.5-11.0 H code = WBC) RED BLOOD CELL (test 2.06 x10 6/uL 4.00-5.60 L code = RBC) HEMOGLOBIN (test code 6.0 g/dL 12.5-16.9 LL Critic al result = HGB) called to MARGARITA CARBAJAL RN by DOMRE at 113 0 03/27/22Nurse kristie stein back resut and tech confirmed it's correct? Y ES HEMATOCRIT (test code 19.2 % 37.5-50.7 L = HCT) MEAN CELL VOLUME (test 93.2 fL 81.0-99.0 N code = MCV) MEAN CELL HGB (test 29.1 pg 27.0-33.0 N code = MCH) MEAN CELL HGB 31.3 g/dL 33.0-37.0 L CONCETRATION (test code = MCHC) RED CELL DISTRIBUTION 17.2 % 11.5-14.5 H WIDTH CV (test code = RDW) RED CELL DISTRIBUTION 58.6 fL 37.0-54.0 H WIDTH SD (test code = RDW-SD) PLATELET COUNT (test 141 x10 3/uL 150-400 L code = PLT) MEAN PLATELET VOLUME 10.3 fL 7.0-9.0 H (test code = MPV) NEUTROPHIL % (test 81.7 % 56.0-77.0 H code = NT%) IMMATURE GRANULOCYTE % 0.5 % 0.0-2.0 N (test code = IG%) LYMPHOCYTE % (test 7.5 % 14.0-32.0 L code = LY%) MONOCYTE % (test code 9.2 % 4.8-9.0 H = MO%) EOSINOPHIL % (test 1.0 % 0.3-3.7 N code = EO%) BASOPHIL % (test code 0.1 % 0.0-2.0 N = BA%) NUCLEATED RBC % (test 0.0 % 0-0 N code = NRBC%) NEUTROPHIL # (test 9.97 x10 3/uL 2.0-7.6 H code = NT#) IMMATURE GRANULOCYTE # 0.06 x10 3/uL 0.00-0.03 H (test code = IG#) LYMPHOCYTE # (test 0.91 x10 3/uL 1.0-3.8 L code = LY#) MONOCYTE # (test code 1.12 x10 3/uL 0.1-0.8 H = MO#) EOSINOPHIL # (test 0.12 x10 3/uL 0.0-0.2 N code = EO#) BASOPHIL # (test code 0.01 x10 3/uL 0.0-0.2 N = BA#) NUCLEATED RBC # (test 0.00 x10 3/uL 0.0-0.1 N code = NRBC#) MANUAL DIFF REQUIRED NO (test code = MDIFF) [id number] 11:26:00 Test Item Value Reference Range Interpretation Comments SURGICAL (test code = SR) R UN DATE: 03/27/22 [place] - LAB PAGE 1 RUN TIME: 1126 Specimen Inquiry RUN USER: INTERFACE P ATIENT: MARTY BASS LOC: KIRTI U #: [id number] AGE/SX: 46/M ROOM: [facility] RE03/22/22REG DR: Bill Yeager MD : 77 BED: 1 DIS: STATUS: ADM IN TLOC: SPEC #: [id number] RECD: 03/26/22 STATUS: [place] REQ #: [id number] ISAIAH: 03/25/22- [facility] DR: Nash Kemp MD ENTERED: 03/26/22 SP TYPE: SURGICAL OTHR DR: Self Referred Cami Deutsch MD, Aisha MD Chaugle, Abdul Hannan MD Hyder, Shahistha MD Kaul, Kuldip K MD Raslan, Saleem MD Vu, Philip M MDORDERED: 12123, ANATOMIC SPEC COPIES TO: Self Referred Cami Deutsch MD [address] [place] [address] Chata Rowe MD [address] [place] [address] Nash Kemp MD [address] [place] [address] [address] [place] [address] Brown Brooks MD, Kuldip K MD [address] [facility] [address] [place] [address] Senthil Pak MD [address] [facility] [address] [place] [address] Nithin Chaudhry MD [address] [place] [address] CONTINUED ON NEXT PAGE R UN DATE: 03/27/22 [place] - LAB PAGE 2 RUN TIME: 1126 Specimen Inquiry RUN USER: INTERFACE S PEC #: [id number] PATIENT: MARTY BASS #[id number] (Continued) PROCEDURES: 77515 (03/27/22-111) TISSUES: A. ATRIUM - APPENDAGE CLINICAL HISTORY SAME FINAL DIAGNOSIS Left atrial appendage, segment: Hypertrophic changes and moderate intimal thickening; mildchronic inflammation. GROSS DESCRIPTION Received in formalin and designated left atrial appendage is 1 segment of pink-carlton tissuemeasuring 3.5 cm in largest dimension. Sections are submitted. Technical component performed at [facility],[address] [place] [address], [place] [address] Unless gross only, the diagnosis is based upon microscopic examination.Immunohistochemistr y: This test was developed and its performance characteristicsdetermined by this laboratory. It has not been approved nor does it need approvalby the [place] FDA. Appropriate positive and negative controls are reviewed and judgedto be acceptable. This laboratory is certified under the Clinical Laboratory ImprovementAmendments (CLIA-88) as qualified to perform high complexity clinical laboratory testing. CLINICAL INFORMATION CAD -- Signed SIGNATURE ON FILE Latisha Jordan 03/27/22 1126 END OF REPORT POC ARTERIAL BLOOD [id number] 11:15:00 Test Item Value Reference Range Interpretation Comments POC ARTERIAL BLOOD GAS PH (test 7.382 7.35-7.45 N code = POCPHA) POC ARTERIAL BLOOD GAS PCO2 (test 38.5 mmHg 35.0-45 N code = [id number]) POC TCO2 ARTERIAL (test code = 24.3 POCTCO2) POC ARTERIAL BLOOD GAS PO2 (test 63.9 mmHg 80-100.0 L code = [id number]) POC HCO3 ARTERIAL (test code = 23.1 MMOL/L 22.0-26.0 N [id number]) POC BASE EXCESS (test code = -2.2 MMOL/L -4.0-4.0 N POCBEA) POC O2 SATURATION (test code = 92.5 % 90-100 N POCO2S) ABG DELIVERY (test code = [place]) [facility] ABG TEMPERATURE (test code = 97.4 F TEMPA) ABG SITE (test code = SITEA) Art Line BASIC METABOLIC [id number] 11:15:00 Test Item Value Reference Range Interpretation Comments SODIUM (test code = NA/ABG) 135 mmol/L 134-147 N POTASSIUM (test code = K/ABG) 4.9 mmol/L 3.4-5.0 N CHLORIDE (test code = CL/ABG) 103 mmol/L 100-108 N CREATININE ABG (test code = 3.5 mg/dL 0.8-1.3 H CREAABG) POC IONIZED CALCIUM (test code = 1.30 MMOL/L 1.12-1.32 N POCCA) POC GLUCOSE (test code = POCGLU) 257 MG/DL 70-110 H HEMOGLOBIN [id number] 11:15:00 Test Item Value Reference Range Interpretation Comments HEMOGLOBIN ABG (test code = HGB/ABG) 5.8 G/DL 12.5-16.9 L [id number] 11:15:00 Test Item Value Reference Range Interpretation Comments HEMATOCRIT (test code = HCT/ABG) 17 % 37.5-50.7 L POC LACTIC [id number] 11:15:00 Test Item Value Reference Range Interpretation Comments POC LACTIC ACID (test code = 1.5 mmol/l 0.9-1.7 N POCLAC) GLUCOSE [id number] 08:58:00 Test Item Value Reference Range Interpretation Comments GLUCOSE BEDSIDE (test 96 MG/DL 70-110 N [facility] med by certified code = GLUBED) 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 Y ES HEMATOCRIT (test code 19.5 % 37.5-50.7 L = HCT) MEAN CELL VOLUME (test 95.1 fL 81.0-99.0 N code = MCV) MEAN CELL HGB (test 29.8 pg 27.0-33.0 N code = MCH) MEAN CELL HGB 31.3 g/dL 33.0-37.0 L CONCETRATION (test code = MCHC) RED CELL DISTRIBUTION 17.2 % 11.5-14.5 H WIDTH CV (test code = RDW) RED CELL DISTRIBUTION 60.0 fL 37.0-54.0 H WIDTH SD (test code = RDW-SD) PLATELET COUNT (test 133 x10 3/uL 150-400 L code = PLT) MEAN PLATELET VOLUME 10.8 fL 7.0-9.0 H (test code = MPV) NEUTROPHIL % (test 82.5 % 56.0-77.0 H code = NT%) IMMATURE GRANULOCYTE % 0.6 % 0.0-2.0 N (test code = IG%) LYMPHOCYTE % (test 6.7 % 14.0-32.0 L code = LY%) MONOCYTE % (test code 8.9 % 4.8-9.0 N = MO%) EOSINOPHIL % (test 1.1 % 0.3-3.7 N code = EO%) BASOPHIL % (test code 0.2 % 0.0-2.0 N = BA%) NUCLEATED RBC % (test 0.0 % 0-0 N code = NRBC%) NEUTROPHIL # (test 8.99 x10 3/uL 2.0-7.6 H code = NT#) IMMATURE GRANULOCYTE # 0.06 x10 3/uL 0.00-0.03 H (test code = IG#) LYMPHOCYTE # (test 0.73 x10 3/uL 1.0-3.8 L code = LY#) MONOCYTE # (test code 0.97 x10 3/uL 0.1-0.8 H = MO#) EOSINOPHIL # (test 0.12 x10 3/uL 0.0-0.2 N code = EO#) BASOPHIL # (test code 0.02 x10 3/uL 0.0-0.2 N = BA#) NUCLEATED RBC # (test 0.00 x10 3/uL 0.0-0.1 N code = NRBC#) MANUAL DIFF REQUIRED NO (test code = MDIFF) HEPATIC FUNCTION [id number] 06:47:00 Test Item Value Reference Range Interpretation Comments TOTAL PROTEIN (test code = PROT) 5.8 g/dL 6.4-8.2 L ALBUMIN (test code = ALB) 3.00 g/dL 3.4-5.0 L BILIRUBIN TOTAL (test code = 0.60 mg/dL 0.0-1.0 N BILT) BILIRUBIN DIRECT (test code = 0.30 MG/DL 0.0-0.30 N BILD) BILIRUBIN INDIRECT (test code = 0.30 MG/DL BILIND) SGOT/AST (test code = AST) 20 IUnit/L 15-37 N SGPT/ALT (test code = ALT) < 7 IUnit/L 30-65 L ALKALINE PHOSPHATASE TOTAL (test 81 IUnit/L 20-125 N code = ALKP) COMMENTS: POD #[id number] 06:47:00 Test Item Value Reference Range Interpretation Comments MAGNESIUM (test code = MAG) 2.25 mg/dL 1.80-2.40 N COMMENTS: POD #1BASIC METABOLIC [id number] 06:45:00 Test Item Value Reference Range Interpretation Comments SODIUM (test code = 138 mEq/L 134-147 N NA) POTASSIUM (test code 4.6 mEq/L 3.4-5.0 N = K) CHLORIDE (test code 105 mEq/L 100-108 N = CL) CARBON DIOXIDE (test 25 mEq/l 21-33 N code = CO2) ANION GAP (test code 12 0-20 N = GAP) GLUCOSE (test code = 135 mg/dL 70-110 H GLU) BLOOD UREA NITROGEN 17 mg/dL 7-18 N (test code = BUN) GLOMERULAR 22.6 95-105 L The Glomerular FILTRATION RATE Filtration R ate is a (test code = GFR) calculated parameterbased on serum Creatinine, pat ient age and sex. GFR va luesless than 60 mL/min/ 1.73 square meters a re indicative ofCh ronic Kidney Disease. Values less than 15 mL/min/1.73squa re meters indicate Kidney failure. The calculation forGFR is based on the CKD-EPI (2020) calculat ion. This formulais race indifferent and is the recommended for piero for GFRby the [facility] for Adults.The GFR will not calculate if th e sex is unknown or if thepatient's ag e is <18 years. CREATININE (test 3.3 mg/dL 0.6-1.3 H code = CREAT) CALCIUM (test code = 9.3 mg/dL 8.0-10.5 N CA) [id number] 06:45:00 Test Item Value Reference Range Interpretation Comments PHOSPHOROUS (test code = PHOS) 3.9 MG/DL 2.5-4.9 N [id number] 06:45:00 Test Item Value Reference Range Interpretation Comments MAGNESIUM (test code = MAG) 2.23 mg/dL 1.80-2.40 N CALCIUM [id number] 06:45:00 Test Item Value Reference Range Interpretation Comments CALCIUM IONIZED (test code = JULIO) 1.27 MMOL/L 1.09-1.30 N POC ARTERIAL BLOOD [id number] 06:35:00 Test Item Value Reference Range Interpretation Comments POC ARTERIAL BLOOD GAS PH (test 7.361 7.35-7.45 N code = POCPHA) POC ARTERIAL BLOOD GAS PCO2 (test 43.0 mmHg 35.0-45 N code = [id number]) POC TCO2 ARTERIAL (test code = 25.6 POCTCO2) POC ARTERIAL BLOOD GAS PO2 (test 111.7 mmHg 80-100.0 H code = LFSTM3J) POC HCO3 ARTERIAL (test code = 24.3 MMOL/L 22.0-26.0 N [id number]) POC BASE EXCESS (test code = -1.1 MMOL/L -4.0-4.0 N POCBEA) POC O2 SATURATION (test code = 98.2 % 90-100 N POCO2S) ABG DELIVERY (test code = [place]) Cannula ABG SITE (test code = SITEA) Art Line BASIC METABOLIC [id number] 06:35:00 Test Item Value Reference Range Interpretation Comments SODIUM (test code = NA/ABG) 136 mmol/L 134-147 N POTASSIUM (test code = K/ABG) 4.5 mmol/L 3.4-5.0 N CHLORIDE (test code = CL/ABG) 104 mmol/L 100-108 N CREATININE ABG (test code = 3.3 mg/dL 0.8-1.3 H CREAABG) POC IONIZED CALCIUM (test code = 1.34 MMOL/L 1.12-1.32 H POCCA) POC GLUCOSE (test code = POCGLU) 136 MG/DL 70-110 H HEMOGLOBIN [id number] 06:35:00 Test Item Value Reference Range Interpretation Comments HEMOGLOBIN ABG (test code = HGB/ABG) 7.0 G/DL 12.5-16.9 L [id number] 06:35:00 Test Item Value Reference Range Interpretation Comments HEMATOCRIT (test code = HCT/ABG) 21 % 37.5-50.7 L POC LACTIC [id number] 06:35:00 Test Item Value Reference Range Interpretation Comments POC LACTIC ACID (test code = 1.2 mmol/l 0.9-1.7 N POCLAC) GLUCOSE [id number] 05:11:00 Test Item Value Reference Range Interpretation Comments GLUCOSE BEDSIDE (test 92 MG/DL 70-110 N Perfor med by certified code = GLUBED) 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 [facility] GLUCOSE [id number] 02:15:00 Test Item Value Reference Range Interpretation Comments GLUCOSE BEDSIDE (test 110 MG/DL 70-110 N Perfor med by certified code = GLUBED) 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 [facility] BASIC METABOLIC [id number] 01:07:00 Test Item Value Reference Range Interpretation Comments SODIUM (test code = 139 mEq/L 134-147 N NA) POTASSIUM (test code 4.3 mEq/L 3.4-5.0 N = K) CHLORIDE (test code 105 mEq/L 100-108 N = CL) CARBON DIOXIDE (test 27 mEq/l 21-33 N code = CO2) ANION GAP (test code 11 0-20 N = GAP) GLUCOSE (test code = 110 mg/dL 70-110 N GLU) BLOOD UREA NITROGEN 17 mg/dL 7-18 N (test code = BUN) GLOMERULAR 22.6 95-105 L The Glomerular FILTRATION RATE Filtration R ate is a (test code = GFR) calculated parameterbased on serum Creatinine, pat ient age and sex. GFR va luesless than 60 mL/min/ 1.73 square meters a re indicative ofCh ronic Kidney Disease. Values less than 15 mL/min/1.73squa re meters indicate Kidney failure. The calculation forGFR is based on the CKD-EPI (2020) calculat ion. This formulais race indifferent and is the recommended for piero for GFRby the [facility] for Adults.The GFR will not calculate if th e sex is unknown or if thepatient's ag e is <18 years. CREATININE (test 3.3 mg/dL 0.6-1.3 H code = CREAT) CALCIUM (test code = 9.5 mg/dL 8.0-10.5 N CA) [id number] 01:07:00 Test Item Value Reference Range Interpretation Comments PHOSPHOROUS (test code = PHOS) 3.2 MG/DL 2.5-4.9 N [id number] 01:07:00 Test Item Value Reference Range Interpretation Comments MAGNESIUM (test code = MAG) 2.11 mg/dL 1.80-2.40 N CALCIUM [id number] 01:07:00 Test Item Value Reference Range Interpretation Comments CALCIUM IONIZED (test code = JULIO) 1.28 MMOL/L 1.09-1.30 N POC ARTERIAL BLOOD [id number] 00:40:00 Test Item Value Reference Range Interpretation Comments POC ARTERIAL BLOOD GAS PH (test 7.427 7.35-7.45 N code = POCPHA) POC ARTERIAL BLOOD GAS PCO2 (test 39.0 mmHg 35.0-45 N code = [id number]) POC TCO2 ARTERIAL (test code = 26.9 POCTCO2) POC ARTERIAL BLOOD GAS PO2 (test 122.5 mmHg 80-100.0 H code = FYSDS3T) POC HCO3 ARTERIAL (test code = 25.7 MMOL/L 22.0-26.0 N [id number]) POC BASE EXCESS (test code = 1.3 MMOL/L -4.0-4.0 N POCBEA) POC O2 SATURATION (test code = 98.8 % 90-100 N POCO2S) ABG DELIVERY (test code = [place]) Cannula ABG TEMPERATURE (test code = 98.8 F TEMPA) ABG SITE (test code = SITEA) Art Line BASIC METABOLIC [id number] 00:40:00 Test Item Value Reference Range Interpretation Comments SODIUM (test code = NA/ABG) 138 mmol/L 134-147 N POTASSIUM (test code = K/ABG) 4.2 mmol/L 3.4-5.0 N CHLORIDE (test code = CL/ABG) 101 mmol/L 100-108 N CREATININE ABG (test code = 3.6 mg/dL 0.8-1.3 H CREAABG) POC IONIZED CALCIUM (test code = 1.38 MMOL/L 1.12-1.32 H POCCA) POC GLUCOSE (test code = POCGLU) 114 MG/DL 70-110 H HEMOGLOBIN [id number] 00:40:00 Test Item Value Reference Range Interpretation Comments HEMOGLOBIN ABG (test code = HGB/ABG) 6.9 G/DL 12.5-16.9 L [id number] 00:40:00 Test Item Value Reference Range Interpretation Comments HEMATOCRIT (test code = HCT/ABG) 20 % 37.5-50.7 L POC LACTIC [id number] 00:40:00 Test Item Value Reference Range Interpretation Comments POC LACTIC ACID (test code = 1.2 mmol/l 0.9-1.7 N POCLAC) - XR CHEST 1 [id number] 00:00:00 [facility] 1975 Sex: M FAX: Nash Yin [phone] [place]: St: [facility] FAX: Bill Arteaga MD [phone] FAX: Nithin Rowan MD [phone] Name: MARTY BASS [facility] : 1975 Age/S: 46/M [address] [place] [address] Unit #: [id number] Loc: G.2208 [place] [address] Phys: Nash Kemp MD Acct: [id number] Dis Date: Status: ADM IN PHONE #: [phone] Exam Date: 03/27/2022 0645 FAX #: [phone] Reason: Cardiac Surgery Post Op EXAMS: CPT CODE: [id number] XR CHEST 1 V [id number] PROCEDURE INFORMATION: Exam: XR Chest Examdate and time: 03/27/2022 5:17 AM Age: 46 years old Clinical indication: Other: Cardiac surgery post op TECHNIQUE: Imaging protocol: Radiologic exam of the chest. Views: 1 view. COMPARISON: CR XR CHEST 1V 03/26/2022 5:10 AM FINDINGS: Tubes, catheters and devices: Stable lines and tubes. Lungs: The bilateral lung opacities are grossly stable. Pleural spaces: Small left pleural effusion could be present. Small left pneumothorax involves less than 10% volume. Heart/Mediastinum: The enlarged heart size is stable. Bones/joints: Stable. Median sternotomy wires. IMPRESSION: 1. Small left pneumothorax involves less than 10% volume. Stable left chest tube. 2. Grossly stable lung opacities. ElectronicallySigned by Jae Nixon on 03/27/2022 at 0737 Reported and signed by: Roger Nixon M.D. CC: Nash Kemp MD; Bill Yeager MD; Nithin Chaudhry MD Technologist: Kelly Barrientos RT(R) TrnscrdDate/Time/By: 03/27/2022 (0737) : By: [email or web address] Orig Print D/T: S: 03/27/2022 (0737) PAGE 1 Signed ReportGLUCOSE [id number] 23:40:00 Test Item Value Reference Range Interpretation Comments GLUCOSE BEDSIDE (test 113 MG/DL 70-110 H Perfor med by certified code = GLUBED) 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 [facility] GLUCOSE [id number] 20:25:00 Test Item Value Reference Range Interpretation Comments GLUCOSE BEDSIDE (test 161 MG/DL 70-110 H Perfor med by certified code = GLUBED) 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 [facility] BASIC METABOLIC [id number] 18:48:00 Test Item Value Reference Range Interpretation Comments SODIUM (test code = 139 mEq/L 134-147 N NA) POTASSIUM (test code 4.6 mEq/L 3.4-5.0 N = K) CHLORIDE (test code 105 mEq/L 100-108 N = CL) CARBON DIOXIDE (test 26 mEq/l 21-33 N code = CO2) ANION GAP (test code 12 0-20 N = GAP) GLUCOSE (test code = 127 mg/dL 70-110 H GLU) BLOOD UREA NITROGEN 18 mg/dL 7-18 N (test code = BUN) GLOMERULAR 21.0 95-105 L The Glomerular FILTRATION RATE Filtration R ate is a (test code = GFR) calculated parameterbased on serum Creatinine, pat ient age and sex. GFR va luesless than 60 mL/min/ 1.73 square meters a re indicative ofCh ronic Kidney Disease. Values less than 15 mL/min/1.73squa re meters indicate Kidney failure. The calculation forGFR is based on the CKD-EPI (2020) calculat ion. This formulais race indifferent and is the recommended for piero for GFRby the [facility] for Ad[facility].The GFR will not calculate if th e sex is unknown or if thepatient's ag e is <18 years. CREATININE (test 3.5 mg/dL 0.6-1.3 H code = CREAT) CALCIUM (test code = 9.3 mg/dL 8.0-10.5 N CA) [id number] 18:48:00 Test Item Value Reference Range Interpretation Comments PHOSPHOROUS (test code = PHOS) 3.4 MG/DL 2.5-4.9 N [id number] 18:48:00 Test Item Value Reference Range Interpretation Comments MAGNESIUM (test code = MAG) 2.30 mg/dL 1.80-2.40 N CALCIUM [id number] 18:48:00 Test Item Value Reference Range Interpretation Comments CALCIUM IONIZED (test code = JULIO) 1.29 MMOL/L 1.09-1.30 N POC ARTERIAL BLOOD [id number] 18:30:00 Test Item Value Reference Range Interpretation Comments POC ARTERIAL BLOOD GAS PH (test 7.410 7.35-7.45 N code = POCPHA) POC ARTERIAL BLOOD GAS PCO2 (test 39.7 mmHg 35.0-45 N code = [id number]) POC TCO2 ARTERIAL (test code = 26.4 POCTCO2) POC ARTERIAL BLOOD GAS PO2 (test 164.0 mmHg 80-100.0 H code = [id number]) POC HCO3 ARTERIAL (test code = 25.2 MMOL/L 22.0-26.0 N [id number]) POC BASE EXCESS (test code = 0.5 MMOL/L -4.0-4.0 N POCBEA) POC O2 SATURATION (test code = 99.5 % 90-100 N POCO2S) ABG DELIVERY (test code = [place]) HFNC ABG TEMPERATURE (test code = 98.6 F TEMPA) ABG SITE (test code = SITEA) Art Line BASIC METABOLIC [id number] 18:30:00 Test Item Value Reference Range Interpretation Comments SODIUM (test code = NA/ABG) 138 mmol/L 134-147 N POTASSIUM (test code = K/ABG) 4.5 mmol/L 3.4-5.0 N CHLORIDE (test code = CL/ABG) 104 mmol/L 100-108 N CREATININE ABG (test code = 3.2 mg/dL 0.8-1.3 H CREAABG) POC IONIZED CALCIUM (test code = 1.36 MMOL/L 1.12-1.32 H POCCA) POC GLUCOSE (test code = POCGLU) 127 MG/DL 70-110 H HEMOGLOBIN [id number] 18:30:00 Test Item Value Reference Range Interpretation Comments HEMOGLOBIN ABG (test code = HGB/ABG) 6.7 G/DL 12.5-16.9 L [id number] 18:30:00 Test Item Value Reference Range Interpretation Comments HEMATOCRIT (test code = HCT/ABG) 20 % 37.5-50.7 L POC LACTIC [id number] 18:30:00 Test Item Value Reference Range Interpretation Comments POC LACTIC ACID (test code = 1.6 mmol/l 0.9-1.7 N POCLAC) GLUCOSE [id number] 16:38:00 Test Item Value Reference Range Interpretation Comments GLUCOSE BEDSIDE (test 101 MG/DL 70-110 N [facility] med by certified code = GLUBED) 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 [facility] BASIC METABOLIC [id number] 14:38:00 Test Item Value Reference Range Interpretation Comments SODIUM (test code = 139 mEq/L 134-147 N NA) POTASSIUM (test code 4.6 mEq/L 3.4-5.0 N = K) CHLORIDE (test code 106 mEq/L 100-108 N = CL) CARBON DIOXIDE (test 24 mEq/l 21-33 N code = CO2) ANION GAP (test code 14 0-20 N = GAP) GLUCOSE (test code = 143 mg/dL 70-110 H GLU) BLOOD UREA NITROGEN 19 mg/dL 7-18 H (test code = BUN) GLOMERULAR 17.9 95-105 L The Glomerular FILTRATION RATE Filtration R ate is a (test code = GFR) calculated parameterbased on serum Creatinine, pat ient age and sex. GFR va luesless than 60 mL/min/ 1.73 square meters a re indicative ofCh ronic Kidney Disease. Values less than 15 mL/min/1.73squa re meters indicate Kidney failure. The calculation forGFR is based on the CKD-EPI (2020) calculat ion. This formulais race indifferent and is the recommended for piero for GFRby the Natio nal Kidney Foundati on for Adults.The GFR will not calculate if th e sex is unknown or if thepatient's ag e is <18 years. CREATININE (test 4.0 mg/dL 0.6-1.3 H code = CREAT) CALCIUM (test code = 9.5 mg/dL 8.0-10.5 N CA) [id number] 14:38:00 Test Item Value Reference Range Interpretation Comments PHOSPHOROUS (test code = PHOS) 3.5 MG/DL 2.5-4.9 N [id number] 14:38:00 Test Item Value Reference Range Interpretation Comments MAGNESIUM (test code = MAG) 2.14 mg/dL 1.80-2.40 N CALCIUM [id number] 14:38:00 Test Item Value Reference Range Interpretation Comments CALCIUM IONIZED (test code = JULIO) 1.28 MMOL/L 1.09-1.30 N GLUCOSE [id number] 14:19:00 Test Item Value Reference Range Interpretation Comments GLUCOSE BEDSIDE (test 135 MG/DL 70-110 H Perfor med by certified code = GLUBED) 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 [facility] POC ARTERIAL BLOOD [id number] 11:23:00 Test Item Value Reference Range Interpretation Comments POC ARTERIAL BLOOD GAS PH (test 7.386 7.35-7.45 N code = POCPHA) POC ARTERIAL BLOOD GAS PCO2 (test 38.8 mmHg 35.0-45 N code = SCZJRP1N) POC TCO2 ARTERIAL (test code = 24.5 POCTCO2) POC ARTERIAL BLOOD GAS PO2 (test 232.0 mmHg 80-100.0 HH code = SWPFV0F) POC HCO3 ARTERIAL (test code = 23.3 MMOL/L 22.0-26.0 N [id number]) POC BASE EXCESS (test code = -1.7 MMOL/L -4.0-4.0 N POCBEA) POC O2 SATURATION (test code = 99.8 % 90-100 N POCO2S) ABG DELIVERY (test code = [place]) Cannula ABG SITE (test code = SITEA) Art Line BASIC METABOLIC [id number] 11:23:00 Test Item Value Reference Range Interpretation Comments SODIUM (test code = NA/ABG) 137 mmol/L 134-147 N POTASSIUM (test code = K/ABG) 4.4 mmol/L 3.4-5.0 N CHLORIDE (test code = CL/ABG) 104 mmol/L 100-108 N CREATININE ABG (test code = 3.7 mg/dL 0.8-1.3 H CREAABG) POC IONIZED CALCIUM (test code = 1.31 MMOL/L 1.12-1.32 N POCCA) POC GLUCOSE (test code = POCGLU) 130 MG/DL 70-110 H HEMOGLOBIN [id number] 11:23:00 Test Item Value Reference Range Interpretation Comments HEMOGLOBIN ABG (test code = HGB/ABG) 6.9 G/DL 12.5-16.9 L [id number] 11:23:00 Test Item Value Reference Range Interpretation Comments HEMATOCRIT (test code = HCT/ABG) 20 % 37.5-50.7 L POC LACTIC [id number] 11:23:00 Test Item Value Reference Range Interpretation Comments POC LACTIC ACID (test code = 1.2 mmol/l 0.9-1.7 N POCLAC) GLUCOSE [id number] 11:10:00 Test Item Value Reference Range Interpretation Comments GLUCOSE BEDSIDE (test 105 MG/DL 70-110 N Perfor med by certified code = GLUBED) 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 [facility] GLUCOSE [id number] 09:31:00 Test Item Value Reference Range Interpretation Comments GLUCOSE BEDSIDE (test 80 MG/DL 70-110 N Perfor med by certified code = GLUBED) 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 [facility] AB HEPATITIS B [id number] 09:13:00 Test Item Value Reference Range Interpretation Comments AB HEPATITIS B 437.5 mIU/mL See_Comment Status of Im munity SURFACE (test code = Anti-HB s Level HBSAB) --- I nconsi stent with Immu nity 0.0 - 9.9Consis tent with Immunity >9.9Performed A t: HD [facility] [address] [id number] Richard Ogden MD Ph:[phone] [Automated mess age] The system mana.bo generated this result transmitted ref erence range: Immunity >9.9. The reference r akhil was not used to interpret this result as normal/abnor mal. ACUTE HEPATITIS [id number] 09:13:00 Test Item Value Reference Range Interpretation Comments AB HEPATITIS A IGM (test NON REACTIVE INDEX NON REACT. code = HAVMAB) AG HEPATITIS B SURFACE NON REACTIVE INDEX NonReactive (test code = HBSAG) AB HEPATITIS B CORE IGM NON REACTIVE INDEX NON REACT. (test code = HBCMAB) AB HEPATITIS C (test code NON REACTIVE INDEX NON REACT. = HCVAB) POC ARTERIAL BLOOD [id number] 06:50:00 Test Item Value Reference Range Interpretation Comments POC ARTERIAL BLOOD GAS PH (test 7.369 7.35-7.45 N code = POCPHA) POC ARTERIAL BLOOD GAS PCO2 (test 44.6 mmHg 35.0-45 N code = [id number]) POC TCO2 ARTERIAL (test code = 27.2 POCTCO2) POC ARTERIAL BLOOD GAS PO2 (test 199.8 mmHg 80-100.0 H code = WPAAW4R) POC HCO3 ARTERIAL (test code = 25.8 MMOL/L 22.0-26.0 N [id number]) POC BASE EXCESS (test code = 0.4 MMOL/L -4.0-4.0 N POCBEA) POC O2 SATURATION (test code = 99.7 % 90-100 N POCO2S) ABG DELIVERY (test code = [place]) Cannula ABG TEMPERATURE (test code = 97.9 F TEMPA) ABG SITE (test code = SITEA) Art Line BASIC METABOLIC [id number] 06:50:00 Test Item Value Reference Range Interpretation Comments SODIUM (test code = NA/ABG) 139 mmol/L 134-147 N POTASSIUM (test code = K/ABG) 4.4 mmol/L 3.4-5.0 N CHLORIDE (test code = CL/ABG) 105 mmol/L 100-108 N CREATININE ABG (test code = 4.6 mg/dL 0.8-1.3 H CREAABG) POC IONIZED CALCIUM (test code = 1.40 MMOL/L 1.12-1.32 H POCCA) POC GLUCOSE (test code = POCGLU) 125 MG/DL 70-110 H HEMOGLOBIN [id number] 06:50:00 Test Item Value Reference Range Interpretation Comments HEMOGLOBIN ABG (test code = HGB/ABG) 6.7 G/DL 12.5-16.9 L [id number] 06:50:00 Test Item Value Reference Range Interpretation Comments HEMATOCRIT (test code = HCT/ABG) 20 % 37.5-50.7 L POC LACTIC [id number] 06:50:00 Test Item Value Reference Range Interpretation Comments POC LACTIC ACID (test code = 0.8 mmol/l 0.9-1.7 L POCLAC) BASIC METABOLIC [id number] 05:02:00 Test Item Value Reference Range Interpretation Comments SODIUM (test code = 140 mEq/L 134-147 N NA) POTASSIUM (test code 4.8 mEq/L 3.4-5.0 N = K) CHLORIDE (test code 107 mEq/L 100-108 N = CL) CARBON DIOXIDE (test 24 mEq/l 21-33 N code = CO2) ANION GAP (test code 14 0-20 N = GAP) GLUCOSE (test code = 118 mg/dL 70-110 H GLU) BLOOD UREA NITROGEN 23 mg/dL 7-18 H (test code = BUN) GLOMERULAR 14.4 95-105 L The Glomerular FILTRATION RATE Filtration R ate is a (test code = GFR) calculated parameterbased on serum Creatinine, pat ient age and sex. GFR va luesless than 60 mL/min/ 1.73 square meters a re indicative ofCh ronic Kidney Disease. Values less than 15 mL/min/1.73squa re meters indicate Kidney failure. The calculation forGFR is based on the CKD-EPI (2020) calculat ion. This formulais race indifferent and is the recommended for piero for GFRby the Natio nal Kidney Foundati on for Adults.The GFR will not calculate if th e sex is unknown or if thepatient's ag e is <18 years. CREATININE (test 4.8 mg/dL 0.6-1.3 H code = CREAT) CALCIUM (test code = 9.6 mg/dL 8.0-10.5 N CA) COMMENTS: POD #1COMMENTS: For monitoring while on sevelamerHEPATIC FUNCTION [id number] 05:02:00 Test Item Value Reference Range Interpretation Comments TOTAL PROTEIN (test code = PROT) 5.6 g/dL 6.4-8.2 L ALBUMIN (test code = ALB) 3.20 g/dL 3.4-5.0 L BILIRUBIN TOTAL (test code = 0.60 mg/dL 0.0-1.0 N BILT) BILIRUBIN DIRECT (test code = 0.40 MG/DL 0.0-0.30 H BILD) BILIRUBIN INDIRECT (test code = 0.20 MG/DL BILIND) SGOT/AST (test code = AST) 20 IUnit/L 15-37 SGPT/ALT (test code = ALT) < 7 IUnit/L 30-65 L ALKALINE PHOSPHATASE TOTAL (test 72 IUnit/L 20-125 N code = ALKP) COMMENTS: POD #1COMMENTS: For monitoring while on [id number] 05:02:00 Test Item Value Reference Range Interpretation Comments PHOSPHOROUS (test code = PHOS) 3.5 MG/DL 2.5-4.9 N COMMENTS: POD #1COMMENTS: For monitoring while on [id number] 05:02:00 Test Item Value Reference Range Interpretation Comments MAGNESIUM (test code = MAG) 2.21 mg/dL 1.80-2.40 N COMMENTS: POD #1COMMENTS: For monitoring while on sevelamerGLUCOSE BEDSIDE 2022-03-26 04:50:00 Test Item Value Reference Range Interpretation Comments GLUCOSE BEDSIDE (test 100 MG/DL 70-110 N Perfor med by certified code = GLUBED) 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 [facility] CBC W/AUTO [id number] 04:43:00 Test Item Value Reference Range Interpretation Comments WHITE BLOOD CELL (test code = 14.3 x10 3/uL 4.5-11.0 H WBC) RED BLOOD CELL (test code = 2.41 x10 6/uL 4.00-5.60 L RBC) HEMOGLOBIN (test code = HGB) 7.1 g/dL 12.5-16.9 L HEMATOCRIT (test code = HCT) 22.3 % 37.5-50.7 L MEAN CELL VOLUME (test code = 92.5 fL 81.0-99.0 N MCV) MEAN CELL HGB (test code = 29.5 pg 27.0-33.0 N MCH) MEAN CELL HGB CONCETRATION 31.8 g/dL 33.0-37.0 L (test code = MCHC) RED CELL DISTRIBUTION WIDTH CV 17.0 % 11.5-14.5 H (test code = RDW) RED CELL DISTRIBUTION WIDTH SD 58.3 fL 37.0-54.0 H (test code = RDW-SD) PLATELET COUNT (test code = 119 x10 3/uL 150-400 L PLT) MEAN PLATELET VOLUME (test 10.4 fL 7.0-9.0 H code = MPV) NEUTROPHIL % (test code = NT%) 82.5 % 56.0-77.0 H IMMATURE GRANULOCYTE % (test 0.3 % 0.0-2.0 N code = IG%) LYMPHOCYTE % (test code = LY%) 8.2 % 14.0-32.0 L MONOCYTE % (test code = MO%) 8.5 % 4.8-9.0 N EOSINOPHIL % (test code = EO%) 0.4 % 0.3-3.7 N BASOPHIL % (test code = BA%) 0.1 % 0.0-2.0 N NUCLEATED RBC % (test code = 0.0 % 0-0 N NRBC%) NEUTROPHIL # (test code = NT#) 11.78 x10 3/uL 2.0-7.6 H IMMATURE GRANULOCYTE # (test 0.04 x10 3/uL 0.00-0.03 H code = IG#) LYMPHOCYTE # (test code = LY#) 1.17 x10 3/uL 1.0-3.8 N MONOCYTE # (test code = MO#) 1.22 x10 3/uL 0.1-0.8 H EOSINOPHIL # (test code = EO#) 0.05 x10 3/uL 0.0-0.2 N BASOPHIL # (test code = BA#) 0.02 x10 3/uL 0.0-0.2 N NUCLEATED RBC # (test code = 0.00 x10 3/uL 0.0-0.1 N NRBC#) MANUAL DIFF REQUIRED (test NO code = MDIFF) GLUCOSE [id number] 03:10:00 Test Item Value Reference Range Interpretation Comments GLUCOSE BEDSIDE (test 87 MG/DL 70-110 N [facility] med by certified code = GLUBED) 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 [facility] POC ARTERIAL BLOOD [id number] 03:08:00 Test Item Value Reference Range Interpretation Comments POC ARTERIAL BLOOD GAS PH (test 7.392 7.35-7.45 N code = POCPHA) POC ARTERIAL BLOOD GAS PCO2 (test 38.1 mmHg 35.0-45 N code = BCYIAJ3O) POC TCO2 ARTERIAL (test code = 24.6 POCTCO2) POC ARTERIAL BLOOD GAS PO2 (test 65.1 mmHg 80-100.0 L code = HZCFI5B) POC HCO3 ARTERIAL (test code = 23.4 MMOL/L 22.0-26.0 N [id number]) POC BASE EXCESS (test code = -1.8 MMOL/L -4.0-4.0 N POCBEA) POC O2 SATURATION (test code = 93.1 % 90-100 N POCO2S) ABG DELIVERY (test code = [place]) Cannula ABG TEMPERATURE (test code = 97.2 F TEMPA) ABG SITE (test code = SITEA) Art Line BASIC METABOLIC [id number] 03:08:00 Test Item Value Reference Range Interpretation Comments SODIUM (test code = NA/ABG) 138 mmol/L 134-147 N POTASSIUM (test code = K/ABG) 4.5 mmol/L 3.4-5.0 N CHLORIDE (test code = CL/ABG) 106 mmol/L 100-108 N CREATININE ABG (test code = 4.8 mg/dL 0.8-1.3 H CREAABG) POC IONIZED CALCIUM (test code = 1.32 MMOL/L 1.12-1.32 N POCCA) POC GLUCOSE (test code = POCGLU) 88 MG/DL 70-110 N HEMOGLOBIN [id number] 03:08:00 Test Item Value Reference Range Interpretation Comments HEMOGLOBIN ABG (test code = HGB/ABG) 7.1 G/DL 12.5-16.9 L [id number] 03:08:00 Test Item Value Reference Range Interpretation Comments HEMATOCRIT (test code = HCT/ABG) 21 % 37.5-50.7 L POC LACTIC [id number] 03:08:00 Test Item Value Reference Range Interpretation Comments POC LACTIC ACID (test code = 1.4 mmol/l 0.9-1.7 N POCLAC) POC IONIZED [id number] 01:20:00 Test Item Value Reference Range Interpretation Comments POC IONIZED CALCIUM (test code = 1.27 MMOL/L 1.12-1.32 N POCCA) HGB [id number] 01:13:00 Test Item Value Reference Range Interpretation Comments HEMOGLOBIN (test code = HGB) 6.9 g/dL 12.5-16.9 L HEMATOCRIT (test code = HCT) 21.7 % 37.5-50.7 L BASIC METABOLIC [id number] 00:53:00 Test Item Value Reference Range Interpretation Comments SODIUM (test code = 141 mEq/L 134-147 N NA) POTASSIUM (test code 4.9 mEq/L 3.4-5.0 N = K) CHLORIDE (test code 108 mEq/L 100-108 N = CL) CARBON DIOXIDE (test 25 mEq/l 21-33 N code = CO2) ANION GAP (test code 13 0-20 N = GAP) GLUCOSE (test code = 125 mg/dL 70-110 H GLU) BLOOD UREA NITROGEN 26 mg/dL 7-18 H (test code = BUN) GLOMERULAR 12.8 95-105 L The Glomerular FILTRATION RATE Filtration R ate is a (test code = GFR) calculated parameterbased on serum Creatinine, pat ient age and sex. GFR va luesless than 60 mL/min/ 1.73 square meters a re indicative ofCh ronic Kidney Disease. Values less than 15 mL/min/1.73squa re meters indicate Kidney failure. The calculation forGFR is based on the CKD-EPI (2020) calculat ion. This formulais race indifferent and is the recommended for piero for GFRby the Natio nal Kidney Foundati on for Adults.The GFR will not calculate if th e sex is unknown or if thepatient's ag e is <18 years. CREATININE (test 5.3 mg/dL 0.6-1.3 H code = CREAT) CALCIUM (test code = 9.1 mg/dL 8.0-10.5 N CA) [id number] 00:53:00 Test Item Value Reference Range Interpretation Comments PHOSPHOROUS (test code = PHOS) 3.3 MG/DL 2.5-4.9 N [id number] 00:53:00 Test Item Value Reference Range Interpretation Comments MAGNESIUM (test code = MAG) 2.08 mg/dL 1.80-2.40 N POC ARTERIAL BLOOD [id number] 00:33:00 Test Item Value Reference Range Interpretation Comments POC ARTERIAL BLOOD GAS PH (test 7.392 7.35-7.45 N code = POCPHA) POC ARTERIAL BLOOD GAS PCO2 (test 40.7 mmHg 35.0-45 N code = IAXBJM1J) POC TCO2 ARTERIAL (test code = 26.1 POCTCO2) POC ARTERIAL BLOOD GAS PO2 (test 62.3 mmHg 80-100.0 L code = YYNZZ9A) POC HCO3 ARTERIAL (test code = 24.8 MMOL/L 22.0-26.0 N [id number]) POC BASE EXCESS (test code = -0.2 MMOL/L -4.0-4.0 N POCBEA) POC O2 SATURATION (test code = 91.7 % 90-100 N POCO2S) ABG DELIVERY (test code = [place]) Cannula ABG TEMPERATURE (test code = 97.9 F TEMPA) ABG SITE (test code = SITEA) Art Line BASIC METABOLIC [id number] 00:33:00 Test Item Value Reference Range Interpretation Comments SODIUM (test code = NA/ABG) 138 mmol/L 134-147 N POTASSIUM (test code = K/ABG) 4.7 mmol/L 3.4-5.0 N CHLORIDE (test code = CL/ABG) 106 mmol/L 100-108 N CREATININE ABG (test code = 6.1 mg/dL 0.8-1.3 H CREAABG) POC IONIZED CALCIUM (test code = 1.34 MMOL/L 1.12-1.32 H POCCA) POC GLUCOSE (test code = POCGLU) 125 MG/DL 70-110 H HEMOGLOBIN [id number] 00:33:00 Test Item Value Reference Range Interpretation Comments HEMOGLOBIN ABG (test code = HGB/ABG) 7.3 G/DL 12.5-16.9 L [id number] 00:33:00 Test Item Value Reference Range Interpretation Comments HEMATOCRIT (test code = HCT/ABG) 21 % 37.5-50.7 L POC LACTIC [id number] 00:33:00 Test Item Value Reference Range Interpretation Comments POC LACTIC ACID (test code = 1.2 mmol/l 0.9-1.7 N POCLAC) - XR CHEST 1 [id number] 00:00:00 [facility] 1975 Sex: M FAX: Nash Yin [phone] [place]: St: ADM FAX: Bill Arteaga MD [phone] FAX: Nithin Rowan MD [phone] Name: MARTY BASS [facility] Yogi Eduardo : 1975 Age/S: 46/M [address] [place] [address] Unit #: [id number] Loc: [address] [place] [address] Phys: Nash Kemp MD Acct: [id number] Dis Date: Status: ADM IN PHONE #: [phone] Exam Date: 03/26/2022627 FAX #: [phone] Reason: Cardiac Surgery Post Op EXAMS: CPT CODE: [id number] XR CHEST 1 V 26856 PROCEDURE INFORMATION: Exam: XR Chest Examdate and time: 03/26/2022 5:10 AM Age: 46 years old Clinical indication: Other: Cardiac surgery post op TECHNIQUE: Imaging protocol: Radiologic exam of the chest. Views: 1 view. COMPARISON: CR XR CHEST 1V 03/25/2022 3:39 PM FINDINGS: Tubes, catheters and devices: Removal of the ET tube. Other lines and tubes are stable. Lungs: Bilateral lung opacities are again noted, slightly improved in the right infrahilar region. Pleural spaces: Question small left pleural effusion. No pneumothorax. Heart/Mediastinum: The enlarged heart size is stable. Bones/joints: Stable. Median sternotomy wires. IMPRESSION: 1.Mildly improved right infrahilar opacities. 2. Removal of the ET tube. at 0751 Reported and signed by: Roger Nixon M.D. CC: Pavan Garcia MD; Bill Yeager MD; Nithin Chaudhry MD Technologist: RT Dariusz(R) Trnscrd Date/Time/By: 03/26/2022 (0751) : By: [email or web address] Orig Print D/T: S: 03/26/2022 (0751) PAGE 1 Signed ReportGLUCOSE [id number] 23:16:00 Test Item Value Reference Range Interpretation Comments GLUCOSE BEDSIDE (test 133 MG/DL 70-110 H Perfor med by certified code = GLUBED) 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 [facility] POC ARTERIAL BLOOD [id number] 21:00:00 Test Item Value Reference Range Interpretation Comments POC ARTERIAL BLOOD GAS PH (test 7.334 7.35-7.45 L code = POCPHA) POC ARTERIAL BLOOD GAS PCO2 (test 43.4 mmHg 35.0-45 N code = [id number]) POC TCO2 ARTERIAL (test code = 24.7 POCTCO2) POC ARTERIAL BLOOD GAS PO2 (test 55.5 mmHg 80-100.0 L code = PDMDH4W) POC HCO3 ARTERIAL (test code = 23.4 MMOL/L 22.0-26.0 N [id number]) POC BASE EXCESS (test code = -2.7 MMOL/L -4.0-4.0 N POCBEA) POC O2 SATURATION (test code = 87.8 % 90-100 L POCO2S) ABG DELIVERY (test code = [place]) Cannula ABG TEMPERATURE (test code = 97 F TEMPA) ABG SITE (test code = SITEA) Art Line BASIC METABOLIC [id number] 21:00:00 Test Item Value Reference Range Interpretation Comments SODIUM (test code = NA/ABG) 139 mmol/L 134-147 N POTASSIUM (test code = K/ABG) 5.1 mmol/L 3.4-5.0 H CHLORIDE (test code = CL/ABG) 108 mmol/L 100-108 N CREATININE ABG (test code = 6.6 mg/dL 0.8-1.3 H CREAABG) POC IONIZED CALCIUM (test code = 1.26 MMOL/L 1.12-1.32 N POCCA) POC GLUCOSE (test code = POCGLU) 214 MG/DL 70-110 H HEMOGLOBIN [id number] 21:00:00 Test Item Value Reference Range Interpretation Comments HEMOGLOBIN ABG (test code = HGB/ABG) 8.1 G/DL 12.5-16.9 L [id number] 21:00:00 Test Item Value Reference Range Interpretation Comments HEMATOCRIT (test code = HCT/ABG) 24 % 37.5-50.7 L POC LACTIC [id number] 21:00:00 Test Item Value Reference Range Interpretation Comments POC LACTIC ACID (test code = 2.0 mmol/l 0.9-1.7 H POCLAC) GLUCOSE [id number] 20:57:00 Test Item Value Reference Range Interpretation Comments GLUCOSE BEDSIDE (test 192 MG/DL 70-110 H Perfor med by certified code = GLUBED) 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 [facility] CBC W/AUTO [id number] 20:09:00 Test Item Value Reference Range Interpretation Comments WHITE BLOOD CELL (test code = 18.2 x10 3/uL 4.5-11.0 H WBC) RED BLOOD CELL (test code = 2.72 x10 6/uL 4.00-5.60 L RBC) HEMOGLOBIN (test code = HGB) 7.9 g/dL 12.5-16.9 L HEMATOCRIT (test code = HCT) 25.3 % 37.5-50.7 L MEAN CELL VOLUME (test code = 93.0 fL 81.0-99.0 N MCV) MEAN CELL HGB (test code = 29.0 pg 27.0-33.0 N MCH) MEAN CELL HGB CONCETRATION 31.2 g/dL 33.0-37.0 L (test code = MCHC) RED CELL DISTRIBUTION WIDTH CV 17.1 % 11.5-14.5 H (test code = RDW) RED CELL DISTRIBUTION WIDTH SD 57.4 fL 37.0-54.0 H (test code = RDW-SD) PLATELET COUNT (test code = 140 x10 3/uL 150-400 L PLT) MEAN PLATELET VOLUME (test 10.7 fL 7.0-9.0 H code = MPV) NEUTROPHIL % (test code = NT%) 85.3 % 56.0-77.0 H IMMATURE GRANULOCYTE % (test 0.4 % 0.0-2.0 N code = IG%) LYMPHOCYTE % (test code = LY%) 6.1 % 14.0-32.0 L MONOCYTE % (test code = MO%) 7.6 % 4.8-9.0 N EOSINOPHIL % (test code = EO%) 0.5 % 0.3-3.7 N BASOPHIL % (test code = BA%) 0.1 % 0.0-2.0 N NUCLEATED RBC % (test code = 0.0 % 0-0 N NRBC%) NEUTROPHIL # (test code = NT#) 15.54 x10 3/uL 2.0-7.6 H IMMATURE GRANULOCYTE # (test 0.07 x10 3/uL 0.00-0.03 H code = IG#) LYMPHOCYTE # (test code = LY#) 1.11 x10 3/uL 1.0-3.8 N MONOCYTE # (test code = MO#) 1.39 x10 3/uL 0.1-0.8 H EOSINOPHIL # (test code = EO#) 0.10 x10 3/uL 0.0-0.2 N BASOPHIL # (test code = BA#) 0.02 x10 3/uL 0.0-0.2 N NUCLEATED RBC # (test code = 0.00 x10 3/uL 0.0-0.1 N NRBC#) MANUAL DIFF REQUIRED (test NO code = MDIFF) POC ARTERIAL BLOOD [id number] 18:38:00 Test Item Value Reference Range Interpretation Comments POC ARTERIAL BLOOD GAS PH (test 7.420 7.35-7.45 N code = POCPHA) POC ARTERIAL BLOOD GAS PCO2 37.0 mmHg 35.0-45 N (test code = LOFVGQ3C) POC TCO2 ARTERIAL (test code = 25.1 POCTCO2) POC ARTERIAL BLOOD GAS PO2 (test 305.3 mmHg 80-100.0 HH code = PQMOA6S) POC HCO3 ARTERIAL (test code = 24.0 MMOL/L 22.0-26.0 N [id number]) POC BASE EXCESS (test code = -0.5 MMOL/L -4.0-4.0 N POCBEA) POC O2 SATURATION (test code = 99.9 % 90-100 N POCO2S) FIO2 (test code = FIO2A) 70 % PaO2/FiO2 (test code = [id number]) 436.14 mm/Hg ABG DELIVERY (test code = [place]) Adult Vent ABG VENT MODE (test code = AC MODEA) ABG SITE (test code = SITEA) Art Line ROXY'S TEST (test code = N/A ALLENS) BASIC METABOLIC [id number] 18:38:00 Test Item Value Reference Range Interpretation Comments SODIUM (test code = NA/ABG) 140 mmol/L 134-147 N POTASSIUM (test code = K/ABG) 5.2 mmol/L 3.4-5.0 H CHLORIDE (test code = CL/ABG) 107 mmol/L 100-108 N CREATININE ABG (test code = 7.9 mg/dL 0.8-1.3 H CREAABG) POC IONIZED CALCIUM (test code = 1.21 MMOL/L 1.12-1.32 N POCCA) POC GLUCOSE (test code = POCGLU) 86 MG/DL 70-110 N HEMOGLOBIN [id number] 18:38:00 Test Item Value Reference Range Interpretation Comments HEMOGLOBIN ABG (test code = HGB/ABG) 7.7 G/DL 12.5-16.9 L [id number] 18:38:00 Test Item Value Reference Range Interpretation Comments HEMATOCRIT (test code = HCT/ABG) 23 % 37.5-50.7 L POC LACTIC [id number] 18:38:00 Test Item Value Reference Range Interpretation Comments POC LACTIC ACID (test code = 0.4 mmol/l 0.9-1.7 L POCLAC) BASIC METABOLIC [id number] 18:29:00 Test Item Value Reference Range Interpretation Comments SODIUM (test code = 142 mEq/L 134-147 N NA) POTASSIUM (test code 5.4 mEq/L 3.4-5.0 H = K) CHLORIDE (test code 110 mEq/L 100-108 H = CL) CARBON DIOXIDE (test 24 mEq/l 21-33 N code = CO2) ANION GAP (test code 13 0-20 N = GAP) GLUCOSE (test code = 97 mg/dL 70-110 GLU) BLOOD UREA NITROGEN 31 mg/dL 7-18 H (test code = BUN) GLOMERULAR 9.2 95-105 L The Glomerular FILTRATION RATE Filtration R ate is a (test code = GFR) calculated parameterbased on serum Creatinine, pat ient age and sex. GFR va luesless than 60 mL/min/ 1.73 square meters a re indicative ofCh ronic Kidney Disease. Values less than 15 mL/min/1.73squa re meters indicate Kidney failure. The calculation forGFR is based on the CKD-EPI (2020) calculat ion. This formulais race indifferent and is the recommended for piero for GFRby the [facility] n[facility] Found[facility] on for Adults.The GFR will not calculate if th e sex is unknown or if thepatient's ag e is <18 years. CREATININE (test 7.0 mg/dL 0.6-1.3 H code = CREAT) CALCIUM (test code = 9.0 mg/dL 8.0-10.5 N CA) [id number] 18:29:00 Test Item Value Reference Range Interpretation Comments MAGNESIUM (test code = MAG) 2.42 mg/dL 1.80-2.40 H B-TYPE NATRIURETIC [id number] 18:22:00 Test Item Value Reference Range Interpretation Comments B-TYPE NATRIURETIC PEPTIDE (test 898.0 PG/ML 0-100 H code = BNP) GLUCOSE [id number] 17:23:00 Test Item Value Reference Range Interpretation Comments GLUCOSE BEDSIDE (test 75 MG/DL 70-110 N Perfor med by certified code = GLUBED) 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 [facility] GLUCOSE [id number] 16:44:00 Test Item Value Reference Range Interpretation Comments GLUCOSE BEDSIDE (test 96 MG/DL 70-110 N Perfor med by certified code = GLUBED) 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 [facility] GLUCOSE [id number] 15:42:00 Test Item Value Reference Range Interpretation Comments GLUCOSE BEDSIDE (test 113 MG/DL 70-110 H Perfor med by certified code = GLUBED) 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 [facility] BASIC METABOLIC [id number] 15:28:00 Test Item Value Reference Range Interpretation Comments SODIUM (test code = 142 mEq/L 134-147 N NA) POTASSIUM (test code 5.2 mEq/L 3.4-5.0 H = K) CHLORIDE (test code 109 mEq/L 100-108 H = CL) CARBON DIOXIDE (test 25 mEq/l 21-33 N code = CO2) ANION GAP (test code 13 0-20 N = GAP) GLUCOSE (test code = 194 mg/dL 70-110 H GLU) BLOOD UREA NITROGEN 32 mg/dL 7-18 H (test code = BUN) GLOMERULAR 9.2 95-105 L The Glomerular FILTRATION RATE Filtration R ate is a (test code = GFR) calculated parameterbased on serum Creatinine, pat ient age and sex. GFR va luesless than 60 mL/min/ 1.73 square meters a re indicative ofCh ronic Kidney Disease. Values less than 15 mL/min/1.73squa re meters indicate Kidney failure. The calculation forGFR is based on the CKD-EPI (2020) calculat ion. This formulais race indifferent and is the recommended for piero for GFRby the [facility] for Adults.The GFR will not calculate if th e sex is unknown or if thepatient's ag e is <18 years. CREATININE (test 7.0 mg/dL 0.6-1.3 H code = CREAT) CALCIUM (test code = 8.6 mg/dL 8.0-10.5 N CA) COMMENTS: On [id number] 15:28:00 Test Item Value Reference Range Interpretation Comments MAGNESIUM (test code = MAG) 2.38 mg/dL 1.80-2.40 N COMMENTS: On arrivalLACTIC [id number] 15:20:00 Test Item Value Reference Range Interpretation Comments LACTIC ACID (test code = LACT) 2.0 mmol/L 0.4-1.9 H PROTHROMBIN [id number] 15:20:00 Test Item Value Reference Range Interpretation Comments PROTHROMBIN TIME 16.1 SECONDS 9.3-12.9 H PATIENT (test code = PTP) INTERNATIONAL NORMAL 1.4 0.8-1.2 H TARGET INR BY RATIO (test code = INDICATIO N Indication INR) INR1. Prophylax is of venous thrombos is 2.0 - 3.0 (orthoped ic surgery), Proph ylaxis of venous throm bosis (other than hig h-risk surgery), Treat ment of Deep Vein Thrombosis/Pulm onary Embolism, Preve ntion of systemic emb olism - Tissue heart va lves, Acute Myocardia l Infarction (to prevent systemic emboli sm), Valvular heart disease, Atrial Fibrillation, Bileaflet mecha nical valve in aortic position.2. Mec hanical prosthetic valv es (high risk), 2. 5 - 3.5 Presence of Lup us Anticoagulant o r Antiphospholipi d Antibodies, Pre vention of systemic emb olism - Acute Myocardia l Infarction (to prevent recurrent infar ct). COMMENTS: On arrivalTHROMBOPLASTIN TIME [id number] 15:20:00 Test Item Value Reference Range Interpretation Comments THROMBOPLASTIN TIME 31.3 Seconds 25.0-39.5 N Therape utic Range: PARTIAL (test code = 50.4 - 88.3 Seconds PTT) Effective 06/30/2018 COMMENTS: [facility] [id number] 15:13:00 Test Item Value Reference Range Interpretation Comments WHITE BLOOD CELL (test code = 14.1 x10 3/uL 4.5-11.0 H WBC) RED BLOOD CELL (test code = 2.94 x10 6/uL 4.00-5.60 L RBC) HEMOGLOBIN (test code = HGB) 8.5 g/dL 12.5-16.9 L HEMATOCRIT (test code = HCT) 27.1 % 37.5-50.7 L MEAN CELL VOLUME (test code = 92.2 fL 81.0-99.0 N MCV) MEAN CELL HGB (test code = 28.9 pg 27.0-33.0 N MCH) MEAN CELL HGB CONCETRATION 31.4 g/dL 33.0-37.0 L (test code = MCHC) RED CELL DISTRIBUTION WIDTH CV 17.1 % 11.5-14.5 H (test code = RDW) RED CELL DISTRIBUTION WIDTH SD 57.1 fL 37.0-54.0 H (test code = RDW-SD) PLATELET COUNT (test code = 119 x10 3/uL 150-400 L PLT) MEAN PLATELET VOLUME (test 11.1 fL 7.0-9.0 H code = MPV) NEUTROPHIL % (test code = NT%) 85.3 % 56.0-77.0 H IMMATURE GRANULOCYTE % (test 0.4 % 0.0-2.0 N code = IG%) LYMPHOCYTE % (test code = LY%) 9.6 % 14.0-32.0 L MONOCYTE % (test code = MO%) 2.7 % 4.8-9.0 L EOSINOPHIL % (test code = EO%) 1.9 % 0.3-3.7 N BASOPHIL % (test code = BA%) 0.1 % 0.0-2.0 N NUCLEATED RBC % (test code = 0.0 % 0-0 N NRBC%) NEUTROPHIL # (test code = NT#) 12.04 x10 3/uL 2.0-7.6 H IMMATURE GRANULOCYTE # (test 0.06 x10 3/uL 0.00-0.03 H code = IG#) LYMPHOCYTE # (test code = LY#) 1.35 x10 3/uL 1.0-3.8 N MONOCYTE # (test code = MO#) 0.38 x10 3/uL 0.1-0.8 N EOSINOPHIL # (test code = EO#) 0.27 x10 3/uL 0.0-0.2 H BASOPHIL # (test code = BA#) 0.02 x10 3/uL 0.0-0.2 N NUCLEATED RBC # (test code = 0.00 x10 3/uL 0.0-0.1 N NRBC#) MANUAL DIFF REQUIRED (test NO code = MDIFF) [facility] [id number] 14:56:00 Test Item Value Reference Range Interpretation Comments POC ARTERIAL BLOOD GAS PH (test 7.322 7.35-7.45 L code = POCPHA) POC ARTERIAL BLOOD GAS PCO2 (test 48.5 mmHg 35.0-45 H code = BXJPQK0G) POC TCO2 ARTERIAL (test code = 26.6 POCTCO2) POC ARTERIAL BLOOD GAS PO2 (test 98.9 mmHg 80-100.0 N code = BAUTR8V) POC HCO3 ARTERIAL (test code = 25.1 MMOL/L 22.0-26.0 N [id number]) POC BASE EXCESS (test code = -1.0 MMOL/L -4.0-4.0 N POCBEA) POC O2 SATURATION (test code = 97.0 % 90-100 N POCO2S) FIO2 (test code = FIO2A) 100 % PaO2/FiO2 (test code = [id number]) 98.90 mm/Hg ABG DELIVERY (test code = [place]) Adult Vent ABG VENT MODE (test code = MODEA) AC ABG VENT RESP RATE (test code = 16 /MIN RRA) ABG TIDAL VOLUME (test code = 500 ml TVA) ABG PEEP (test code = PEEPA) 5 cmH2O ABG SITE (test code = SITEA) Art Line BASIC METABOLIC [id number] 14:56:00 Test Item Value Reference Range Interpretation Comments SODIUM (test code = NA/ABG) 139 mmol/L 134-147 N POTASSIUM (test code = K/ABG) 5.0 mmol/L 3.4-5.0 N CHLORIDE (test code = CL/ABG) 107 mmol/L 100-108 N CREATININE ABG (test code = 7.6 mg/dL 0.8-1.3 H CREAABG) POC IONIZED CALCIUM (test code = 1.33 MMOL/L 1.12-1.32 H POCCA) POC GLUCOSE (test code = POCGLU) 201 MG/DL 70-110 H HEMOGLOBIN [id number] 14:56:00 Test Item Value Reference Range Interpretation Comments HEMOGLOBIN ABG (test code = HGB/ABG) 8.2 G/DL 12.5-16.9 L [id number] 14:56:00 Test Item Value Reference Range Interpretation Comments HEMATOCRIT (test code = HCT/ABG) 24 % 37.5-50.7 L POC LACTIC [id number] 14:56:00 Test Item Value Reference Range Interpretation Comments POC LACTIC ACID (test code = 1.9 mmol/l 0.9-1.7 H POCLAC) POC ARTERIAL BLOOD [id number] 14:12:00 Test Item Value Reference Range Interpretation Comments POC ARTERIAL BLOOD GAS PH (test 7.397 7.35-7.45 N code = POCPHA) POC ARTERIAL BLOOD GAS PCO2 (test 38.4 mmHg 35.0-45 N code = BGHDOT9C) POC TCO2 ARTERIAL (test code = 24.8 POCTCO2) POC ARTERIAL BLOOD GAS PO2 (test 499.7 mmHg 80-100.0 HH code = WTTCO5Q) POC HCO3 ARTERIAL (test code = 23.6 MMOL/L 22.0-26.0 N [id number]) POC BASE EXCESS (test code = -1.1 MMOL/L -4.0-4.0 N POCBEA) POC O2 SATURATION (test code = 100.0 % 90-100 N POCO2S) BASIC METABOLIC [id number] 14:12:00 Test Item Value Reference Range Interpretation Comments SODIUM (test code = NA/ABG) 140 mmol/L 134-147 N POTASSIUM (test code = K/ABG) 7.1 mmol/L 3.4-5.0 HH CHLORIDE (test code = CL/ABG) 110 mmol/L 100-108 H CREATININE ABG (test code = 6.5 mg/dL 0.8-1.3 H CREAABG) POC IONIZED CALCIUM (test code = 1.30 MMOL/L 1.12-1.32 N POCCA) POC GLUCOSE (test code = POCGLU) 208 MG/DL 70-110 H HEMOGLOBIN [id number] 14:12:00 Test Item Value Reference Range Interpretation Comments HEMOGLOBIN ABG (test code = HGB/ABG) 8.2 G/DL 12.5-16.9 L [id number] 14:12:00 Test Item Value Reference Range Interpretation Comments HEMATOCRIT (test code = HCT/ABG) 24 % 37.5-50.7 L POC LACTIC [id number] 14:12:00 Test Item Value Reference Range Interpretation Comments POC LACTIC ACID (test code = 3.0 mmol/l 0.9-1.7 H POCLAC) [id number] 14:00:00 Test Item Value Reference Range Interpretation Comments ACT-ISTAT (test code 137 SEC 74-137 N Perform ed by certified = ACTI) 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 [facility] [id number] 13:17:00 Test Item Value Reference Range Interpretation Comments ACT-ISTAT (test code 576 SEC 74-137 H Perform ed by certified = ACTI) 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 [facility] POC ARTERIAL BLOOD [id number] 13:04:00 Test Item Value Reference Range Interpretation Comments POC ARTERIAL BLOOD GAS PH (test 7.431 7.35-7.45 N code = POCPHA) POC ARTERIAL BLOOD GAS PCO2 (test 40.3 mmHg 35.0-45 N code = DAYKYU9P) POC TCO2 ARTERIAL (test code = 28.0 POCTCO2) POC ARTERIAL BLOOD GAS PO2 (test 339.1 mmHg 80-100.0 HH code = NPPXU7B) POC HCO3 ARTERIAL (test code = 26.8 MMOL/L 22.0-26.0 H [id number]) POC BASE EXCESS (test code = 2.3 MMOL/L -4.0-4.0 N POCBEA) POC O2 SATURATION (test code = 99.9 % 90-100 N POCO2S) BASIC METABOLIC [id number] 13:04:00 Test Item Value Reference Range Interpretation Comments SODIUM (test code = NA/ABG) 139 mmol/L 134-147 N POTASSIUM (test code = K/ABG) 6.6 mmol/L 3.4-5.0 HH CHLORIDE (test code = CL/ABG) 106 mmol/L 100-108 N CREATININE ABG (test code = 7.8 mg/dL 0.8-1.3 H CREAABG) POC IONIZED CALCIUM (test code = 1.17 MMOL/L 1.12-1.32 N POCCA) POC GLUCOSE (test code = POCGLU) 169 MG/DL 70-110 H HEMOGLOBIN [id number] 13:04:00 Test Item Value Reference Range Interpretation Comments HEMOGLOBIN ABG (test code = HGB/ABG) 8.9 G/DL 12.5-16.9 L [id number] 13:04:00 Test Item Value Reference Range Interpretation Comments HEMATOCRIT (test code = HCT/ABG) 26 % 37.5-50.7 L POC LACTIC [id number] 13:04:00 Test Item Value Reference Range Interpretation Comments POC LACTIC ACID (test code = 2.0 mmol/l 0.9-1.7 H POCLAC) [id number] 12:53:00 Test Item Value Reference Range Interpretation Comments ACT-ISTAT (test code 997 SEC 74-137 H Perform ed by certified = ACTI) 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 [facility] [id number] 12:53:00 Test Item Value Reference Range Interpretation Comments ACT-ISTAT (test code 690 SEC 74-137 H Perform ed by certified = ACTI) 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 [facility] POC ARTERIAL BLOOD [id number] 12:35:00 Test Item Value Reference Range Interpretation Comments POC ARTERIAL BLOOD GAS PH (test 7.507 7.35-7.45 HH code = POCPHA) POC ARTERIAL BLOOD GAS PCO2 (test 34.5 mmHg 35.0-45 L code = AUATNP4N) POC TCO2 ARTERIAL (test code = 28.4 POCTCO2) POC ARTERIAL BLOOD GAS PO2 (test 565.7 mmHg 80-100.0 HH code = PMVRR4O) POC HCO3 ARTERIAL (test code = 27.4 MMOL/L 22.0-26.0 H [id number]) POC BASE EXCESS (test code = 4.0 MMOL/L -4.0-4.0 N POCBEA) POC O2 SATURATION (test code = 100.0 % 90-100 N POCO2S) BASIC METABOLIC [id number] 12:35:00 Test Item Value Reference Range Interpretation Comments SODIUM (test code = NA/ABG) 139 mmol/L 134-147 N POTASSIUM (test code = K/ABG) 6.1 mmol/L 3.4-5.0 HH CHLORIDE (test code = CL/ABG) 104 mmol/L 100-108 N CREATININE ABG (test code = 7.4 mg/dL 0.8-1.3 H CREAABG) POC IONIZED CALCIUM (test code = 1.11 MMOL/L 1.12-1.32 L POCCA) POC GLUCOSE (test code = POCGLU) 127 MG/DL 70-110 H HEMOGLOBIN [id number] 12:35:00 Test Item Value Reference Range Interpretation Comments HEMOGLOBIN ABG (test code = HGB/ABG) 6.4 G/DL 12.5-16.9 L [id number] 12:35:00 Test Item Value Reference Range Interpretation Comments HEMATOCRIT (test code = HCT/ABG) 19 % 37.5-50.7 L POC LACTIC [id number] 12:35:00 Test Item Value Reference Range Interpretation Comments POC LACTIC ACID (test code = 1.7 mmol/l 0.9-1.7 N POCLAC) POC ARTERIAL BLOOD [id number] 12:17:00 Test Item Value Reference Range Interpretation Comments POC ARTERIAL BLOOD GAS PH (test 7.369 7.35-7.45 N code = POCPHA) POC ARTERIAL BLOOD GAS PCO2 (test 47.7 mmHg 35.0-45 H code = HFTXYE0I) POC TCO2 ARTERIAL (test code = 29.0 POCTCO2) POC ARTERIAL BLOOD GAS PO2 (test 189.0 mmHg 80-100.0 H code = HRAZW7U) POC HCO3 ARTERIAL (test code = 27.5 MMOL/L 22.0-26.0 H [id number]) POC BASE EXCESS (test code = 1.8 MMOL/L -4.0-4.0 N POCBEA) POC O2 SATURATION (test code = 99.6 % 90-100 N POCO2S) BASIC METABOLIC [id number] 12:17:00 Test Item Value Reference Range Interpretation Comments SODIUM (test code = NA/ABG) 140 mmol/L 134-147 N POTASSIUM (test code = K/ABG) 4.5 mmol/L 3.4-5.0 N CHLORIDE (test code = CL/ABG) 106 mmol/L 100-108 N CREATININE ABG (test code = 7.8 mg/dL 0.8-1.3 H CREAABG) POC IONIZED CALCIUM (test code = 1.24 MMOL/L 1.12-1.32 N POCCA) POC GLUCOSE (test code = POCGLU) 135 MG/DL 70-110 H HEMOGLOBIN [id number] 12:17:00 Test Item Value Reference Range Interpretation Comments HEMOGLOBIN ABG (test code = HGB/ABG) 9.3 G/DL 12.5-16.9 L [id number] 12:17:00 Test Item Value Reference Range Interpretation Comments HEMATOCRIT (test code = HCT/ABG) 27 % 37.5-50.7 L POC LACTIC [id number] 12:17:00 Test Item Value Reference Range Interpretation Comments POC LACTIC ACID (test code = 0.5 mmol/l 0.9-1.7 L POCLAC) POC ARTERIAL BLOOD [id number] 10:47:00 Test Item Value Reference Range Interpretation Comments POC ARTERIAL BLOOD GAS PH (test 7.441 7.35-7.45 N code = POCPHA) POC ARTERIAL BLOOD GAS PCO2 (test 33.6 mmHg 35.0-45 L code = CWBWDD1J) POC TCO2 ARTERIAL (test code = 23.9 POCTCO2) POC ARTERIAL BLOOD GAS PO2 (test 367.8 mmHg 80-100.0 HH code = WLCWY5P) POC HCO3 ARTERIAL (test code = 22.9 MMOL/L 22.0-26.0 N [id number]) POC BASE EXCESS (test code = -0.9 MMOL/L -4.0-4.0 N POCBEA) POC O2 SATURATION (test code = 100.0 % 90-100 N POCO2S) BASIC METABOLIC [id number] 10:47:00 Test Item Value Reference Range Interpretation Comments SODIUM (test code = NA/ABG) 141 mmol/L 134-147 N POTASSIUM (test code = K/ABG) 4.3 mmol/L 3.4-5.0 N CHLORIDE (test code = CL/ABG) 107 mmol/L 100-108 N CREATININE ABG (test code = 6.8 mg/dL 0.8-1.3 H CREAABG) POC IONIZED CALCIUM (test code = 1.20 MMOL/L 1.12-1.32 N POCCA) POC GLUCOSE (test code = POCGLU) 122 MG/DL 70-110 H HEMOGLOBIN [id number] 10:47:00 Test Item Value Reference Range Interpretation Comments HEMOGLOBIN ABG (test code = 10.4 G/DL 12.5-16.9 L HGB/ABG) [id number] 10:47:00 Test Item Value Reference Range Interpretation Comments HEMATOCRIT (test code = HCT/ABG) 31 % 37.5-50.7 L POC LACTIC [id number] 10:47:00 Test Item Value Reference Range Interpretation Comments POC LACTIC ACID (test code = 0.5 mmol/l 0.9-1.7 L POCLAC) GLUCOSE [id number] 06:59:00 Test Item Value Reference Range Interpretation Comments GLUCOSE BEDSIDE (test 143 MG/DL 70-110 H Perfor med by certified code = GLUBED) 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 [facility] GLUCOSE [id number] 05:29:00 Test Item Value Reference Range Interpretation Comments GLUCOSE BEDSIDE (test 122 MG/DL 70-110 H Perfor med by certified code = GLUBED) 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 [facility] GLUCOSE [id number] 04:45:00 Test Item Value Reference Range Interpretation Comments GLUCOSE BEDSIDE (test 56 MG/DL 70-110 L Perfor med by certified code = GLUBED) 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 [facility] COMPREHENSIVE METABOLIC [id number] 04:30:00 Test Item Value Reference Range Interpretation Comments SODIUM (test code = 140 mEq/L 134-147 N NA) POTASSIUM (test code 5.3 mEq/L 3.4-5.0 H = K) CHLORIDE (test code 102 mEq/L 100-108 N = CL) CARBON DIOXIDE (test 27 mEq/l 21-33 N code = CO2) ANION GAP (test code 16 0-20 N = GAP) GLUCOSE (test code = 69 mg/dL 70-110 L GLU) BLOOD UREA NITROGEN 44 mg/dL 7-18 H (test code = BUN) GLOMERULAR 6.6 95-105 L The Glomerular FILTRATION RATE Filtration R ate is a (test code = GFR) calculated parameterbased on serum Creatinin e, patient age and sex. GFR valuesless than 60 mL/min/1.73 squ are meters are dash cative ofChronic Kidne y Disease. Values less than 15 mL/min/1.73squa re meters indicate Kidney failure. The calculation for GFR is based on the CK D-EPI (2020) calculat ion. This formulais race indifferent and is the recommended for piero for GFRby the [facility].The GFR will not calculate i f the sex is unknown or if thepatient's ag e is <18 years. CREATININE (test 9.2 mg/dL 0.6-1.3 H code = CREAT) TOTAL PROTEIN (test 6.8 g/dL 6.4-8.2 N code = PROT) ALBUMIN (test code = 3.10 g/dL 3.4-5.0 L ALB) CALCIUM (test code = 9.6 mg/dL 8.0-10.5 N CA) BILIRUBIN TOTAL 0.60 mg/dL 0.0-1.0 N (test code = BILT) SGOT/AST (test code < 8 IUnit/L 15-37 L = AST) SGPT/ALT (test code < 7 IUnit/L 30-65 L = ALT) ALKALINE PHOSPHATASE 112 IUnit/L 20-125 N TOTAL (test code = ALKP) CBC W/AUTO [id number] 04:26:00 Test Item Value Reference Range Interpretation Comments WHITE BLOOD CELL (test code = 5.9 x10 3/uL 4.5-11.0 N WBC) RED BLOOD CELL (test code = 3.49 x10 6/uL 4.00-5.60 L RBC) HEMOGLOBIN (test code = HGB) 9.9 g/dL 12.5-16.9 L HEMATOCRIT (test code = HCT) 31.9 % 37.5-50.7 L MEAN CELL VOLUME (test code = 91.4 fL 81.0-99.0 N MCV) MEAN CELL HGB (test code = MCH) 28.4 pg 27.0-33.0 N MEAN CELL HGB CONCETRATION 31.0 g/dL 33.0-37.0 L (test code = MCHC) RED CELL DISTRIBUTION WIDTH CV 17.0 % 11.5-14.5 H (test code = RDW) RED CELL DISTRIBUTION WIDTH SD 57.4 fL 37.0-54.0 H (test code = RDW-SD) PLATELET COUNT (test code = 147 x10 3/uL 150-400 L PLT) MEAN PLATELET VOLUME (test code 10.1 fL 7.0-9.0 H = MPV) NEUTROPHIL % (test code = NT%) 65.1 % 56.0-77.0 N IMMATURE GRANULOCYTE % (test 0.3 % 0.0-2.0 N code = IG%) LYMPHOCYTE % (test code = LY%) 18.2 % 14.0-32.0 N MONOCYTE % (test code = MO%) 11.7 % 4.8-9.0 H EOSINOPHIL % (test code = EO%) 4.4 % 0.3-3.7 H BASOPHIL % (test code = BA%) 0.3 % 0.0-2.0 N NUCLEATED RBC % (test code = 0.0 % 0-0 N NRBC%) NEUTROPHIL # (test code = NT#) 3.83 x10 3/uL 2.0-7.6 N IMMATURE GRANULOCYTE # (test 0.02 x10 3/uL 0.00-0.03 N code = IG#) LYMPHOCYTE # (test code = LY#) 1.07 x10 3/uL 1.0-3.8 N MONOCYTE # (test code = MO#) 0.69 x10 3/uL 0.1-0.8 N EOSINOPHIL # (test code = EO#) 0.26 x10 3/uL 0.0-0.2 H BASOPHIL # (test code = BA#) 0.02 x10 3/uL 0.0-0.2 N NUCLEATED RBC # (test code = 0.00 x10 3/uL 0.0-0.1 N NRBC#) MANUAL DIFF REQUIRED (test code NO = MDIFF) PROTHROMBIN [id number] 04:19:00 Test Item Value Reference Range Interpretation Comments PROTHROMBIN TIME 13.3 SECONDS 9.3-12.9 H PATIENT (test code = PTP) INTERNATIONAL NORMAL 1.2 0.8-1.2 N TARGET INR BY RATIO (test code = INDICATIO N Indication INR) INR1. Prophylax is of venous thrombos is 2.0 - 3.0 (orthoped ic surgery), Proph ylaxis of venous throm bosis (other than hig h-risk surgery), Treat ment of Deep Vein Thrombosis/Pulm onary Embolism, Preve ntion of systemic emb olism - Tissue heart va lves, Acute Myocardia l Infarction (to prevent systemic emboli sm), Valvular heart disease, Atrial Fibrillation, Bileaflet mecha nical valve in aortic position.2. Mec hanical prosthetic valv es (high risk), 2. 5 - 3.5 Presence of Lup us Anticoagulant o r Antiphospholipi d Antibodies, Pre vention of systemic emb olism - Acute Myocardia l Infarction (to prevent recurrent infar ct). THROMBOPLASTIN TIME [id number] 04:19:00 Test Item Value Reference Range Interpretation Comments THROMBOPLASTIN TIME 38.7 Seconds 25.0-39.5 N Therape utic Range: PARTIAL (test code = 50.4 - 88.3 Seconds PTT) Effective 06/30/2018 - XR CHEST 1 [id number] 00:00:00 [facility] : 1975 Sex: M FAX: Nash Yin [phone] [place]: St: ADM FAX: Bill Arteaga MD [phone] FAX: Nithin Rowan MD [phone] Name: MARTY BASS [facility] Yogi Eduardo : 1975 Age/S: 46/M [address] [place] [address] Unit #: [id number] Loc: [id number] [place] [address] Phys: Nash Kemp MD Acct: [id number] Dis Date: Status: ADM IN PHONE #: [phone] Exam Date: 03/25/2022 1620 FAX #: [phone] Reason: Cardiac Surgery Post Op EXAMS: CPT CODE: [id number] XR CHEST 1 V [id number] PROCEDURE INFORMATION: Exam: XR Chest Exam date and time: 03/25/2022 3:39 PM Age: 46 years old Clinical indication: Screening exam; Other screening; Patient HX: Cardiac surgery post op TECHNIQUE: Imaging protocol: Radiologic exam of the chest. Views: 1 view. COMPARISON: CT CHEST W/O CONTRAST 03/23/2022 3:52 PM FINDINGS: Tubes, catheters and devices: Patient intubated, tip of endotracheal tube 4.8 cm above rajan. Tip of right IJ venous catheterin the proximal SVC. Mediastinal drain and left chest tubes are noted. Lungs: Mildly decreased lung volume with bilateral perihilar and lower lobe opacities, worse in the left retrocardiac lung. Pleural spaces: No significant effusions or pneumothorax. Heart/Mediastinum: The heart size is normal. Bones/joints: Interval post sternotomy changes. IMPRESSION: 1. Interval postoperative changes of sternotomy and life support line placement as above. 2. Bilateral lung opacities worse in the left retrocardiac lung may represent edema or atelectasis. Pneumonia in differential in appropriate clinical setting. 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 [facility] GLUCOSE [id number] 17:01:00 Test Item Value Reference Range Interpretation Comments GLUCOSE BEDSIDE (test 265 MG/DL 70-110 H Perfor med by certified code = GLUBED) 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 [facility] B-TYPE NATRIURETIC [id number] 13:33:00 Test Item Value Reference Range Interpretation Comments B-TYPE NATRIURETIC PEPTIDE (test 1313.0 PG/ML 0-100 H code = BNP) GLUCOSE [id number] 12:28:00 Test Item Value Reference Range Interpretation Comments GLUCOSE BEDSIDE (test 63 MG/DL 70-110 L Perfor med by certified code = GLUBED) 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 [facility] BASIC METABOLIC [id number] 08:08:00 Test Item Value Reference Range Interpretation Comments SODIUM (test code = 137 mEq/L 134-147 N NA) POTASSIUM (test code 4.7 mEq/L 3.4-5.0 N = K) CHLORIDE (test code 100 mEq/L 100-108 N = CL) CARBON DIOXIDE (test 26 mEq/l 21-33 N code = CO2) ANION GAP (test code 16 0-20 N = GAP) GLUCOSE (test code = 338 mg/dL 70-110 H GLU) BLOOD UREA NITROGEN 32 mg/dL 7-18 H (test code = BUN) GLOMERULAR 8.0 95-105 L The Glomerular FILTRATION RATE Filtration R ate is a (test code = GFR) calculated parameterbased on serum Creatinine, pat ient age and sex. GFR va luesless than 60 mL/min/ 1.73 square meters a re indicative ofCh ronic Kidney Disease. Values less than 15 mL/min/1.73squa re meters indicate Kidney failure. The calculation forGFR is based on the CKD-EPI (2020) calculat ion. This formulais race indifferent and is the recommended for piero for GFRby the Natio nal Kidney Foundati on for Adults.The GFR will not calculate if th e sex is unknown or if thepatient's ag e is <18 years. 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 [facility] CBC W/AUTO [id number] 07:37:00 Test Item Value Reference Range Interpretation Comments WHITE BLOOD CELL (test code = 5.0 x10 3/uL 4.5-11.0 N WBC) RED BLOOD CELL (test code = 3.47 x10 6/uL 4.00-5.60 L RBC) HEMOGLOBIN (test code = HGB) 10.0 g/dL 12.5-16.9 L HEMATOCRIT (test code = HCT) 31.6 % 37.5-50.7 L MEAN CELL VOLUME (test code = 91.1 fL 81.0-99.0 N MCV) MEAN CELL HGB (test code = MCH) 28.8 pg 27.0-33.0 N MEAN CELL HGB CONCETRATION 31.6 g/dL 33.0-37.0 L (test code = MCHC) RED CELL DISTRIBUTION WIDTH CV 17.1 % 11.5-14.5 H (test code = RDW) RED CELL DISTRIBUTION WIDTH SD 56.9 fL 37.0-54.0 H (test code = RDW-SD) PLATELET COUNT (test code = 128 x10 3/uL 150-400 L PLT) MEAN PLATELET VOLUME (test code 10.4 fL 7.0-9.0 H = MPV) NEUTROPHIL % (test code = NT%) 62.9 % 56.0-77.0 N IMMATURE GRANULOCYTE % (test 0.2 % 0.0-2.0 N code = IG%) LYMPHOCYTE % (test code = LY%) 19.2 % 14.0-32.0 N MONOCYTE % (test code = MO%) 12.9 % 4.8-9.0 H EOSINOPHIL % (test code = EO%) 4.6 % 0.3-3.7 H BASOPHIL % (test code = BA%) 0.2 % 0.0-2.0 N NUCLEATED RBC % (test code = 0.0 % 0-0 N NRBC%) NEUTROPHIL # (test code = NT#) 3.11 x10 3/uL 2.0-7.6 N IMMATURE GRANULOCYTE # (test 0.01 x10 3/uL 0.00-0.03 N code = IG#) LYMPHOCYTE # (test code = LY#) 0.95 x10 3/uL 1.0-3.8 L MONOCYTE # (test code = MO#) 0.64 x10 3/uL 0.1-0.8 N EOSINOPHIL # (test code = EO#) 0.23 x10 3/uL 0.0-0.2 H BASOPHIL # (test code = BA#) 0.01 x10 3/uL 0.0-0.2 N NUCLEATED RBC # (test code = 0.00 x10 3/uL 0.0-0.1 N NRBC#) MANUAL DIFF REQUIRED (test code NO = MDIFF) PROTHROMBIN [id number] 06:34:00 Test Item Value Reference Range Interpretation Comments PROTHROMBIN TIME 13.5 SECONDS 9.3-12.9 H PATIENT (test code = PTP) INTERNATIONAL NORMAL 1.2 0.8-1.2 N TARGET INR BY RATIO (test code = INDICATIO N Indication INR) INR1. Prophylax is of venous thrombos is 2.0 - 3.0 (orthoped ic surgery), Proph ylaxis of venous throm bosis (other than hig h-risk surgery), Treat ment of Deep Vein Thrombosis/Pulm onary Embolism, Preve ntion of systemic emb olism - Tissue heart va lves, Acute Myocardia l Infarction (to prevent systemic emboli sm), Valvular heart disease, Atrial Fibrillation, Bileaflet mecha nical valve in aortic position.2. Mec hanical prosthetic valv es (high risk), 2. 5 - 3.5 Presence of Lup us Anticoagulant o r Antiphospholipi d Antibodies, Pre vention of systemic emb olism - Acute Myocardia l Infarction (to prevent recurrent infar ct). COVID 19 Asymptomatic IH [id number] 04:39:00 Test Item Value Reference Range Interpretation Comments COVID 19 Asymptomatic Negative Negative A nega tive result is IH AG (test code = presumpti ve and should COVNONPUIAG) be confirmedwit h an FDA authorized mole cular assay, if neces elsa forpatient nette tawana.A positive result does not rule out co-inf ections withother patho gens.This test detects todd th viable (live) and non-viable,SARS -CoV, and SARS-CoV-2. Hui t performance dep ends on theamount of vi becki (antigen) in th e sample.This hui t has not been FDA cleare d or approved; the t est hasbeen authori zed by FDA under an Em ergency Use Authorizati on(EUA) for use by labo ratories certified under the CLIA thatmeet the requirements to perform moderate, high or waivedcomplexit y tests. - US RETROPERITONEAL [id number] 00:00:00 [facility] 1975 Sex: M Name:MARTY BASS [facility] : 1975 Age/S: 46 / M [address] [place] [address] Unit #: [id number] Loc: [place] [address] Phys: Bill Yeager MD Acct: [id number] Dis Date: Status: ADM IN PHONE #: [phone] Exam Date: 03/24/2022 1129 FAX #: [phone] Reason: possible renal cysts EXAMS: CPT CODE: [id number] US RETROPERITONEAL COM [id number] PROCEDURE INFORMATION: Exam: US Retroperitoneal; Complete; Kidneys and Bladder Exam date and time: 03/24/2022 10:37 AM Age: 46 years old Clinical indication: Abnormal findings; Abnormal radiologic finding of the abdomen; Radiologic exam and body structure: CT chest, renal cysts; Additional info: Possible renal cysts TECHNIQUE: Imaging protocol: Real-time ultrasound of the retroperitoneum with image documentation. Complete exam focused on the kidneys and bladder. COMPARISON: CT CHEST W/O CONTRAST 03/23/2022 3:52 PM FINDINGS: Right kidney: Right kidney 10.4 cm. Echogenic parenchyma with renal cortical thinning. No hydronephrosis. Multiple simple cysts requiringno further follow-up. Left kidney: Left kidney 9.4 cm. Echogenic parenchyma with renal cortical thickening. No hydronephrosis. Multiple simple cyst requiring no further follow-up. Urinary bladder: Unremarkable. IMPRESSION: 1. Medical renal disease. 2. Cholelithiasis. at 1231 Reported and signed by: Nba Webber M.D. CC: Jarett Yeager MD; Nithin Chaudhry MD Technologist: Sophia Almaguer RDMS(AB)(OB) Trnscb Date/Time: 03/24/2022 (1231) [email or web address] Orig Print D/T: S: 03/24/2022 (1231) Probe: PAGE 1 Signed Report- [facility] VEIN [id number] 00:00:00 [facility] 1975 Sex: M Name:MARTY BASS [facility] : 1975 Age/S: 46 / M [address] [place] [address] Bl Unit #: [id number] Loc: [place] [address] Phys: Daisha Lucas Acct: [id number] Dis Date: Status: ADM IN PHONE #: [phone] Exam Date: 03/23/2022 1630 FAX #: [phone] Reason: Bilateral vein mapping EXAMS: CPT CODE: [id number] DUP VEIN JOE [id number] PROCEDURE INFORMATION: Exam: US Duplex Lower Extremity Veins; Vein mapping Exam date and time: 03/23/2022 4:13 PM Age: 46 years old Clinical indication: Screening exam; L vein mapping; Additional info: Bilateral vein mapping TECHNIQUE: Imaging protocol: Real-time duplex ultrasound of the Lower Extremities with 2-D leavitt scale, color Doppler flow and spectral waveform analysis with image documentation. Complete exam focused on the bilateral lower extremity veins forvein mapping. COMPARISON: No relevant prior studies available. FINDINGS: Right superficial veins: Normal compressibility. Greater saphenous vein is patent. Right greater saphenous vein-upper thigh: 18mm Right greater saphenous vein-mid thigh: 13 mm Right greater saphenous vein-lower thigh: 17 mm Right greater saphenous vein-upper le mm Right greater saphenous vein-mid le mm Right greater saphenous vein-lower le mm Left superficial veins: Normal compressibility. Greater saphenous vein is patent. Left greater saphenous vein-upper thigh: 57 mm Left greater saphenous vein-mid thigh: 29mm Left greater saphenous vein-lower thigh: 27 mm Left greater saphenous vein-upper le mm Left greater saphenous vein-mid le mm Left greater saphenous vein-lower le mm Soft tissues: Unremarkable. IMPRESSION: Greater saphenous vein is patent. Vein mapping as described. Electronically S igned by Jae Randall on 03/24/2022 at 0123 Reported and signed by: Tacho Randall M.D. CC: Bill Yeager MD; Daisha TREVINO; Nithin Chaudhry MD Technologist: Asha Murcia RDMS(AB) Trnscb Date/Time: 03/24/2022 (122) [id number] Orig Print D/T: S: 03/24/2022 (012) Probe: PAGE 1 Signed Report- CT CHEST W/O [id number] 00:00:00 [facility] : 1975 Sex: M Name:MARTY BASS [facility] Yogi Eduardo : 1975 Age/S: 46 / M [address] [place] [address] Blvd Unit #: [id number] Loc: [place] [address] Phys: Daisha Lucas Acct: [id number] Dis Date: Status: ADM IN PHONE #: [phone] Exam Date: 03/23/2022 1633 FAX #: [phone] Reason: CABG workup EXAMS: CPT CODE: [id number] CT CHEST W/O CONTRAST [id number] PROCEDURE INFORMATION: Exam: CT Chest Without Contrast; Diagnosti c Exam date and time: 03/23/2022 3:52 PM Age: 46 years old Clinical indication: Screening exam; Pre-operative exam; Cardiovascular screening; Additional info: Cabg workup TECHNIQUE: Imaging protocol: Diagnostic computed tomography of the chest without contrast. Radiation optimization: All CT scans at this facility use at least one of these dose optimization techniques: automated exposure control; mA and/or kV adjustment per patient size (includes targeted exams where dose is matched to clinical indication); or iterative reconstruction. COMPARISON: No relevant prior studies available. FINDINGS: Lungs:Ground-glass infiltrate in the left upper lobe on series measures 9.5 mm secondary to pneumonitis, atelectasis, less likely focus of pneumonia. Recommend CT Chest at 6-12 months to confirm persistence of the nodule, then CT Chest at 3 years and 5 years. (Reference: Santiago). Pleural spaces: Unremarkable. No pneumothorax. No pleural effusion. Heart: Cardiomegaly with coronary artery calcifications. Lymph nodes: Unremarkable. No enlarged lymph nodes. Vasculature: Unremarkable. No aortic aneurysm. Kidneys and ureters: Multiple renal cystic lesions incompletely evaluated on this exam. This can beassessed on a nonemergent ultrasound. Stomach and bowel: Dilated esophagus secondary to dysmotility or reflux. Bones/joints: Unremarkable. No acute fracture. Soft tissues: Gynecomastia. IMPRESSION: 1. G round-glass infiltrate in the left upper lobe on series measures 9.5 mm secondary to pneumonitis, atelectasis, less likely focus of pneumonia. Recommend CT Chest at 6-12 months to confirm persistence of the nodule, then CT Chest at 3 years and 5 years. (Reference: Santiago). 2. Cardiomegaly with coronary artery calcifications. 3. Gynecomastia. 4. Dilated esophagus secondary to dysmotility or reflux. 5. Multiple renal cystic lesions incompletely evaluated on this exam. This can be assessed on a nonemergent ultrasound. COMMENTS: PAGE 1 Signed Report (CONTINUED) Name: MARTY BASS [facility] Yogi Eduardo : 1975 Age/S: 46 / M [address] [place] [address] Unit #: [id number] Loc: [place] [address] Phys: Daisha Lucas Acct: [id number] Dis Date: Status: ADM IN PHONE #: [phone] Exam Date: 03/23/2022 1633 FAX #: [phone] Reason: CABG workup EXAMS: CPT CODE: [id number] CT CHEST W/O CONTRAST 03841 (Continued) Consistent with the [employer]'s Incidental Findings Committee white paper (J Am Isaiah Radiol 2018): Any incidental renal lesion less than 1 cm or classified as too small to characterize, or any incidental cystic renal lesion characterized as simple-appearing, is likely benign. No follow-up imaging is recommended for these lesions per consensus recommendations based on imaging criteria. REFERENCES: Santiago Wick, et al. Guidelines for Management of Incidental Pulmonary Nodules Detected on CT Images: From the Fleischner Society 2017. Radiology. 2017;284(1):228-243. at 0905 Reported and signed by: Nba Webber M.D. 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 [facility] GLUCOSE [id number] 17:54:00 Test Item Value Reference Range Interpretation Comments GLUCOSE BEDSIDE (test 84 MG/DL 70-110 N Perfor med by certified code = GLUBED) 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 [facility] GLUCOSE [id number] 14:19:00 Test Item Value Reference Range Interpretation Comments GLUCOSE BEDSIDE (test 98 MG/DL 70-110 N Perfor med by certified code = GLUBED) 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 [facility] GLUCOSE [id number] 14:19:00 Test Item Value Reference Range Interpretation Comments GLUCOSE BEDSIDE (test 34 MG/DL 70-110 L Perfor med by certified code = GLUBED) 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 [facility] GLUCOSE [id number] 08:28:00 Test Item Value Reference Range Interpretation Comments GLUCOSE BEDSIDE (test 232 MG/DL 70-110 H Perfor med by certified code = GLUBED) 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 [facility] BASIC METABOLIC [id number] 05:32:00 Test Item Value Reference Range Interpretation Comments SODIUM (test code = 136 mEq/L 134-147 N NA) POTASSIUM (test code 4.9 mEq/L 3.4-5.0 N = K) CHLORIDE (test code 100 mEq/L 100-108 N = CL) CARBON DIOXIDE (test 23 mEq/l 21-33 N code = CO2) ANION GAP (test code 18 0-20 N = GAP) GLUCOSE (test code = 295 mg/dL 70-110 H GLU) BLOOD UREA NITROGEN 31 mg/dL 7-18 H (test code = BUN) GLOMERULAR 7.6 95-105 L The Glomerular FILTRATION RATE Filtration R ate is a (test code = GFR) calculated parameterbased on serum Creatinine, pat ient age and sex. GFR va luesless than 60 mL/min/ 1.73 square meters a re indicative ofCh ronic Kidney Disease. Values less than 15 mL/min/1.73squa re meters indicate Kidney failure. The calculation forGFR is based on the CKD-EPI (2020) calculat ion. This formulais race indifferent and is the recommended for piero for GFRby the [facility] on for Adults.The GFR will not calculate if th e sex is unknown or if thepatient's ag e is <18 years. CREATININE (test 8.2 mg/dL 0.6-1.3 H code = CREAT) CALCIUM (test code = 9.8 mg/dL 8.0-10.5 N CA) CBC W/AUTO [id number] 04:58:00 Test Item Value Reference Range Interpretation Comments WHITE BLOOD CELL (test code = 5.6 x10 3/uL 4.5-11.0 N WBC) RED BLOOD CELL (test code = 3.56 x10 6/uL 4.00-5.60 L RBC) HEMOGLOBIN (test code = HGB) 10.4 g/dL 12.5-16.9 L HEMATOCRIT (test code = HCT) 32.3 % 37.5-50.7 L MEAN CELL VOLUME (test code = 90.7 fL 81.0-99.0 N MCV) MEAN CELL HGB (test code = MCH) 29.2 pg 27.0-33.0 N MEAN CELL HGB CONCETRATION 32.2 g/dL 33.0-37.0 L (test code = MCHC) RED CELL DISTRIBUTION WIDTH CV 17.3 % 11.5-14.5 H (test code = RDW) RED CELL DISTRIBUTION WIDTH SD 57.1 fL 37.0-54.0 H (test code = RDW-SD) PLATELET COUNT (test code = 125 x10 3/uL 150-400 L PLT) MEAN PLATELET VOLUME (test code 10.7 fL 7.0-9.0 H = MPV) NEUTROPHIL % (test code = NT%) 68.8 % 56.0-77.0 N IMMATURE GRANULOCYTE % (test 0.4 % 0.0-2.0 N code = IG%) LYMPHOCYTE % (test code = LY%) 16.9 % 14.0-32.0 N MONOCYTE % (test code = MO%) 10.5 % 4.8-9.0 H EOSINOPHIL % (test code = EO%) 3.2 % 0.3-3.7 N BASOPHIL % (test code = BA%) 0.2 % 0.0-2.0 N NUCLEATED RBC % (test code = 0.0 % 0-0 N NRBC%) NEUTROPHIL # (test code = NT#) 3.88 x10 3/uL 2.0-7.6 N IMMATURE GRANULOCYTE # (test 0.02 x10 3/uL 0.00-0.03 N code = IG#) LYMPHOCYTE # (test code = LY#) 0.95 x10 3/uL 1.0-3.8 L MONOCYTE # (test code = MO#) 0.59 x10 3/uL 0.1-0.8 N EOSINOPHIL # (test code = EO#) 0.18 x10 3/uL 0.0-0.2 N BASOPHIL # (test code = BA#) 0.01 x10 3/uL 0.0-0.2 N NUCLEATED RBC # (test code = 0.00 x10 3/uL 0.0-0.1 N NRBC#) MANUAL DIFF REQUIRED (test code NO = MDIFF) GLUCOSE [id number] 20:19:00 Test Item Value Reference Range Interpretation Comments GLUCOSE BEDSIDE (test 200 MG/DL 70-110 H Perfor med by certified code = GLUBED) 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 [facility] GLUCOSE [id number] 17:15:00 Test Item Value Reference Range Interpretation Comments GLUCOSE BEDSIDE (test 160 MG/DL 70-110 H Perfor med by certified code = GLUBED) 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 [facility] GLUCOSE [id number] 12:22:00 Test Item Value Reference Range Interpretation Comments GLUCOSE BEDSIDE (test 217 MG/DL 70-110 H Perfor med by certified code = GLUBED) 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 [facility] [id number] 09:14:00 Test Item Value Reference Range Interpretation Comments HGBA1C% (test code = HGBA1C%) 10.0 %A1C 4.8-6.0 H GLUCOSE [id number] 08:43:00 Test Item Value Reference Range Interpretation Comments GLUCOSE BEDSIDE (test 131 MG/DL 70-110 H Perfor med by certified code = GLUBED) 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 [facility] BASIC METABOLIC [id number] 08:19:00 Test Item Value Reference Range Interpretation Comments SODIUM (test code = 139 mEq/L 134-147 N NA) POTASSIUM (test code 4.2 mEq/L 3.4-5.0 N = K) CHLORIDE (test code 101 mEq/L 100-108 N = CL) CARBON DIOXIDE (test 28 mEq/l 21-33 N code = CO2) ANION GAP (test code 15 0-20 N = GAP) GLUCOSE (test code = 190 mg/dL 70-110 H GLU) BLOOD UREA NITROGEN 27 mg/dL 7-18 H (test code = BUN) GLOMERULAR 10.2 95-105 L The Glomerular FILTRATION RATE Filtration R ate is a (test code = GFR) calculated parameterbased on serum Creatinine, pat ient age and sex. GFR va luesless than 60 mL/min/ 1.73 square meters a re indicative ofCh ronic Kidney Disease. Values less than 15 mL/min/1.73squa re meters indicate Kidney failure. The calculation forGFR is based on the CKD-EPI (2020) calculat ion. This formulais race indifferent and is the recommended for piero for GFRby the [facility] on for Adults.The GFR will not calculate if th e sex is unknown or if thepatient's ag e is <18 years. CREATININE (test 6.4 mg/dL 0.6-1.3 H code = CREAT) CALCIUM (test code = 9.3 mg/dL 8.0-10.5 N CA) LIPID PROFILE (CORONARY RISK)2022-03-22 08:19:00 Test Item Value Reference Range Interpretation Comments TRIGLYCERIDES (test 66 mg/dL 40-150 N code = TRIG) CHOLESTEROL (test 101 mg/dL <200 code = CHOL) CHOLESTEROL/HDL 2.84 RATIO 3.43-4.97 L RISK ASSOCIA KASSANDRA WITH RATIO (test code = CHOL/HDL RATIOS: RISK CHOLHDL) MALE FEMALE1/2 AVERAGE 3.43 3.27AVERAG E 4.97 4.442X AVERAGE 9.55 7.053X AVERAGE 23.39 11.04 NOTE THAT THE REFERENCE VALUE IS RELATEDTO RISK LEVELS RECOMMENDED BY THE NATL.HEART, MALIA G, AND BLOOD INST. HDL CHOLESTEROL 35.6 mg/dL 32-72 N (test code = HDL) LIPOPROTEIN LDL 52.6 mg/dL 0-100 N <100 OPTIMAL 100-129 (test code = LDL) NEAR OPTIM AL/ABOVE [id number] 89 HIGH>IN=971 MICHAEL Y HIGH*Guidelines provided by the National [facility] terol EducationProa Adult Treatment Panel III TSH REFLEX TO [id number] 08:19:00 Test Item Value Reference Range Interpretation Comments TSH REFLEX TO FT4 (test code = 1.80 IU/mL 0.42-5.47 N TSHREFLEX) TOTAL IRON BINDING [id number] 08:12:00 Test Item Value Reference Range Interpretation Comments SERUM IRON (test code = IRON) 35 mcg/dL 35-150 N TOTAL IRON BINDING CAPACITY (test 214 mcg/dL 260-445 L code = TIBC) UIBC (test code = UIBC) 179 mcg/dL IRON SATURATION (test code = 16.4 % 14-34 N FESAT) VITAMIN [id number] 08:12:00 Test Item Value Reference Range Interpretation Comments VITAMIN B12 (test code = VITB12) 876 pg/mL 193-986 N FOLIC [id number] 08:12:00 Test Item Value Reference Range Interpretation Comments FOLIC ACID (test code = FOL) 7.4 ng/mL 3.1-17.5 N [id number] 08:12:00 Test Item Value Reference Range Interpretation Comments FERRITIN (test code = GOPI) 926.5 ng/mL 23.9-336.2 H CBC W/O [id number] 07:49:00 Test Item Value Reference Range Interpretation Comments WHITE BLOOD CELL (test code = 4.4 x10 3/uL 4.5-11.0 L WBC) RED BLOOD CELL (test code = 3.61 x10 6/uL 4.00-5.60 L RBC) HEMOGLOBIN (test code = HGB) 10.5 g/dL 12.5-16.9 L HEMATOCRIT (test code = HCT) 32.2 % 37.5-50.7 L MEAN CELL VOLUME (test code = 89.2 fL 81.0-99.0 N MCV) MEAN CELL HGB (test code = MCH) 29.1 pg 27.0-33.0 N MEAN CELL HGB CONCETRATION 32.6 g/dL 33.0-37.0 L (test code = MCHC) RED CELL DISTRIBUTION WIDTH CV 17.3 % 11.5-14.5 H (test code = RDW) RED CELL DISTRIBUTION WIDTH SD 56.1 fL 37.0-54.0 H (test code = RDW-SD) PLATELET COUNT (test code = 113 x10 3/uL 150-400 L PLT) MEAN PLATELET VOLUME (test code 10.7 fL 7.0-9.0 H = MPV)
--- NOTE | 2022-04-23 18:07 | RAD REPORT ---
EXAM DESCRIPTION: US - Extremity Venous Uni Ltd - 04/23/2022 6:00 pm CLINICAL HISTORY: PAIN Leg swelling and edema. COMPARISON: Upper Lower Extrem Art Multi dated 11/09/2021 FINDINGS: Right lower extremity venous system was interrogated with Doppler technique. Normal flow, compressibility and augmentation was noted. There is no DVT present. IMPRESSION: No evidence of right lower extremity deep venous thrombosis.
--- NOTE | 2022-04-23 18:17 | RAD REPORT ---
EXAM DESCRIPTION: US - Extremity Nonvascular Limited - 04/23/2022 6:00 pm CLINICAL HISTORY: c/o abscess Pain and swelling COMPARISON: No comparisons TECHNIQUE: Real-time sonographic evaluation of the area of interest was performed. FINDINGS: Complex fluid collection is seen beneath the skin at the area of interest/ incision site. This is most likely a subcutaneous abscess. The collection measures approximately 3.7 x 2.7 x 1.5 cm.
[2022-04-23 18:44] LABS: Absolute Lymphocytes (CBC) 0.9 K/uL (0.7-4.9); Hematocrit 25.1 % (39.6-49.0); Lymphocytes % 14.5 % (15.3-44.8); MCV 90.2 fL (80-100); MPV 7.5 fL (7.6-11.3); RBC Red Blood Cell Count 2.79 M/uL (4.33-5.43)
[2022-04-23 18:56] LABS: Potassium 4.5 mmol/L (3.5-5.1)
--- NOTE | 2022-04-23 20:32 | ER ---
Nurse's Notes [facility] Name: Chase Chacon Jr Age: 46 yrs Sex: Male : 1975 Arrival Date: 04/23/2022 Time: 17:00 Bed 6 Private MD: Diagnosis: Cutaneous abscess of right lower limb Presentation: 04/23 17:10 Chief complaint: Patient states: Patient c/o pain to right leg - knee to foot. Pt ld1 reports heart bypass on 03/25/2022. C/O pain, infected site where they took vein out of right lower leg X 2 weeks. Coronavirus screen: At this time, the client does not indicate any symptoms associated with coronavirus-19. Ebola Screen: No symptoms or risks identified at this time. Initial Sepsis Screen: Does the patient meet any 2 criteria? No. Patient's initial sepsis screen is negative. Does the patient have a suspected source of infection? No. Patient's initial sepsis screen is negative. Risk Assessment: Do you want to hurt yourself or someone else? Patient reports no desire to harm self or others. Onset of symptoms was April 23, 2022. 17:10 Method Of Arrival: Wheelchair ld1 17:10 Acuity: LEON 3 ld1 Triage Assessment: 17:14 General: Appears in no apparent distress. uncomfortable, Behavior is calm, cooperative, ld1 appropriate for age. Pain: Complains of pain in right knowles, anterior aspect of right ankle and dorsum of right foot Pain does not radiate. Pain currently is 10 out of 10 on a pain scale. Quality of pain is described as throbbing. EENT: No signs and/or symptoms were reported regarding the EENT system. Neuro: Level of Consciousness is awake, alert, obeys commands, Oriented to person, place, time, situation. Cardiovascular: Capillary refill < 3 seconds Patient's skin is warm and dry. Respiratory: Airway is patent Respiratory effort is even, unlabored. GI: Abdomen is round non-distended. : No signs and/or symptoms were reported regarding the genitourinary system. Derm: No signs and/or symptoms reported regarding the dermatologic system. Musculoskeletal: No signs and/or symptoms reported regarding the musculoskeletal system. Historical: - Allergies: 17:16 No Known Allergies; ld1 - PMHx: 17:14 Cataract; Hypertensive disorder; kidney failure; hemodialysis; diabetes mellitus; ld1 - PSHx: 17:14 Left arm dialysis fistula; Heart bypass; ld1 - Immunization history:: Adult Immunizations up to date, Client reports receiving the 2nd dose of the Covid vaccine. - Social history:: Smoking status: Patient denies any tobacco usage or history of. Patient/guardian denies using alcohol. Screenin:[address] [facility] ED Fall Risk Assessment (Adult) History of falling in the last 3 months, tw5 including since admission Yes- single mechanical fall (1 pt). Abuse screen: Denies threats or abuse. Denies injuries from another. Nutritional screening: No deficits noted. Tuberculosis screening: No symptoms or risk factors identified. Assessment: 19:42 General: Patient was provided wound care information and answered his questions tw5 regarding the wound on his leg "Were they took a vein for my heart during my CABG" Patients main concern is "It just started randomly hurting today, it it hasn't been hurting until now. The Tylenol #3 aren't working anymore.". Neuro: Level of Consciousness is awake, alert, obeys commands, Oriented to person, place, time, Appropriate for age. 20:52 Reassessment: Patient appears in no apparent distress at this time. No changes from tw5 previously documented assessment. Patient and/or family updated on plan of care and expected duration. Pain level reassessed. Patient is alert, oriented x 3, equal unlabored respirations, skin warm/dry/pink. General:. 21:52 General: Appears in no apparent distress. Behavior is calm, cooperative, appropriate tw5 for age. Pain: Pain currently is 3 out of 10 on a pain scale. 23:13 Reassessment: Attempted to call report to admitting nurse. mb9 Vital Signs: 17:10 BP 125 / 47; Pulse 76; Resp 18; Temp 97.9(O); Pulse Ox 97% on R/A; ld1 17:16 Weight 81.65 kg; Height 5 ft. 6 in. (167.64 cm); Pain 10/10; ld1 20:52 BP 121 / 83; Pulse 68; Resp 18; Pulse Ox 93% on R/A; Pain 7/10; tw5 21:52 BP 136 / 71; Pulse 71; Resp 18; Pulse Ox 92% ; Pain 3/10; tw5 23:15 BP 122 / 73; Pulse 83; Resp 18; Pulse Ox 95% ; mb9 17:16 Body Mass Index 29.05 (81.65 kg, 167.64 cm) ld1 ED Course: 17:00 Patient arrived in ED. am2 17:10 [facility] Fer[facility]C [facility] kb 17:10 Elodia Chavez MD is Attending Physician. kb 17:14 Triage completed. ld1 17:14 Arm band placed on right wrist. ld1 18:02 US Extremity Venous Unilateral Ltd In Process Unspecified. EDMS 18:02 US Extrmty Nonvasular Limited In Process Unspecified. EDMS 19:41 Lizbeth Heard is Primary Nurse. tw5 19:42 Patient has correct armband on for positive identification. Placed in gown. Bed in low tw5 position. Call light in reach. Client placed on continuous cardiac and pulse oximetry monitoring. NIBP monitoring applied. 19:42 No provider procedures requiring assistance completed. tw5 20:31 Dino Jordan is Hospitalizing Provider. kb 20:49 SARS RAPID Sent. tw5 20:49 Blood Culture Adult (2) Sent. tw5 23:29 Patient admitted, IV remains in place. mb9 Administered Medications: 20:52 Drug: Zosyn (piperacillin-tazobactam) 3.375 grams Route: IVPB; Infused Over: 60 mins; tw5 Site: right forearm; 21:55 Follow up: Response: No adverse reaction; IV Status: Completed infusion; IV Intake: tw5 100ml 20:52 Drug: Moore (HYDROcodone-acetaminophen) 10 mg-325 mg 1 tabs Route: PO; tw5 21:55 Follow up: Response: No adverse reaction; Pain is decreased; RASS: Drowsy (-1) tw5 Medication: 19:42 VIS not applicable for this client. tw5 Intake: 21:55 IV: 100ml; Total: 100ml. tw5 Outcome: 20:32 Decision to Hospitalize by Provider. kb 23:29 Admitted to Med/surg accompanied by tech, via wheelchair, room 230, with chart. mb9 23:29 Condition: stable 23:29 Instructed on the need for admit. 23:29 Patient left the ED. mb9 Signatures: Dispatcher [employer] EDAL Meghna Ferrer FNP-C FNP-Ckb Alicia Daniel am2 Nell Hanson, RN RN ld1 Lizbeth Heard tw5 Rachel Leyva RN RN mb9
--- NOTE | 2022-04-23 20:32 | EDPHYS ---
Physician Documentation [facility] Name: Chase Chacon Jr Age: 46 yrs Sex: Male : 1975 Arrival Date: 04/23/2022 Time: 17:00 Bed 6 Private MD: ED Physician Eloida Chavez HPI: 04/23 22:30 This 46 yrs old Male presents to ER via Wheelchair with complaints of Leg kb Pain, Wound Check. 22:30 the patient presents with a swollen area of the right knowles. Description: draining, kb erythematous, swollen, warm. Onset: The symptoms/episode began/occurred 1 month(s) ago. Possible cause(s): surgical incision. Associated signs and symptoms: Pertinent positives: drainage, erythema, swelling. Modifying factors: the symptoms are alleviated by nothing, the symptoms are aggravated by pressure, touching. Severity of symptoms: At their worst the symptoms were moderate, in the emergency department the symptoms are unchanged. The patient has not experienced similar symptoms in the past. The patient has been recently seen by a physician:. Pt reports he had a triple bypass one month ago and the incision that was made to right lower leg to harvest the vessel has continued to drain since the surgery. States it has become more pain and swollen. Was seen by surgeon that did not do anything, then seen by user experience architect that put him on a 7 day course of antibiotics (unknown name). States redness, swelling and pain have gotten worse even after antibiotic completion. . Historical: - Allergies: 17:16 No Known Allergies; ld1 - PMHx: 17:14 Cataract; Hypertensive disorder; kidney failure; hemodialysis; diabetes mellitus; ld1 - PSHx: 17:14 Left arm dialysis fistula; Heart bypass; ld1 - Immunization history:: Adult Immunizations up to date, Client reports receiving the 2nd dose of the Covid vaccine. - Social history:: Smoking status: Patient denies any tobacco usage or history of. Patient/guardian denies using alcohol. ROS: 22:29 Constitutional: Negative for fever, chills, and weight loss. kb 22:29 Skin: Positive for abscess, cellulitis, erythema, swelling, of the right knowles. 22:29 All other systems are negative. Exam: 22:29 Constitutional: This is a well developed, well nourished patient who is awake, alert, kb and in no acute distress. Head/Face: Normocephalic, atraumatic. ENT: Moist Mucous membranes Cardiovascular: Regular rate and rhythm with a normal S1 and S2. No gallops, murmurs, or rubs. No pulse deficits. Respiratory: Respirations even and unlabored. No increased work of breathing. Talking in full sentences Abdomen/GI: Soft, non-tender. No distention MS/ Extremity: Pulses equal, no cyanosis. Neurovascular intact. Full, normal range of motion. Neuro: Awake and alert, GCS 15, oriented to person, place, time, and situation. Moves all extremities. Normal gait. Psych: Awake, alert, with orientation to person, place and time. Behavior, mood, and affect are within normal limits. 22:29 Skin: surgical incision with erythema, swelling and tenderness to right lower leg. Vital Signs: 17:10 BP 125 / 47; Pulse 76; Resp 18; Temp 97.9(O); Pulse Ox 97% on R/A; ld1 17:16 Weight 81.65 kg; Height 5 ft. 6 in. (167.64 cm); Pain 10/10; ld1 20:52 BP 121 / 83; Pulse 68; Resp 18; Pulse Ox 93% on R/A; Pain 7/10; tw5 21:52 BP 136 / 71; Pulse 71; Resp 18; Pulse Ox 92% ; Pain 3/10; tw5 23:15 BP 122 / 73; Pulse 83; Resp 18; Pulse Ox 95% ; mb9 17:16 Body Mass Index 29.05 (81.65 kg, 167.64 cm) ld1 MDM: 17:18 Patient medically screened. kb 20:28 Data reviewed: vital signs, nurses notes. kb 20:31 Management of patient was discussed with the following: Hospitalist: Rani TREVINO accepts kb pt for admission. Esthetician Permanent Makeup Artist: Dr Valente consulted. Wants pt NPO after midnight, will take to OR tomorrow. 22:28 Differential diagnosis: cellulitis, abscess. Counseling: I had a detailed discussion kb with the patient and/or guardian regarding: the historical points, exam findings, and any diagnostic results supporting the discharge/admit diagnosis, lab results, radiology results, the need for further work-up and treatment in the hospital. 04/23 17:19 Order name: CBC with Diff; Complete Time: 18:49 kb 04/23 17:19 Order name: Basic Metabolic Panel; Complete Time: 19:06 kb 04/23 17:19 Order name: Blood Culture Adult (2) kb 04/23 17:19 Order name: US Extremity Venous Unilateral Ltd; Complete Time: 18:13 kb 04/23 17:19 Order name: US Extrmty Nonvasular Limited; Complete Time: 18:19 kb 04/23 20:34 Order name: SARS RAPID; Complete Time: 21:04 as6 04/23 17:19 Order name: IV Start; Complete Time: 18:35 kb Administered Medications: 20:52 Drug: Zosyn (piperacillin-tazobactam) 3.375 grams Route: IVPB; Infused Over: 60 mins; tw5 Site: right forearm; 21:55 Follow up: Response: No adverse reaction; IV Status: Completed infusion; IV Intake: tw5 100ml 20:52 Drug: Bradford (HYDROcodone-acetaminophen) 10 mg-325 mg 1 tabs Route: PO; tw5 21:55 Follow up: Response: No adverse reaction; Pain is decreased; RASS: Drowsy (-1) tw5 Disposition Summary: 04/23/22 20:32 Hospitalization Ordered Hospitalization Status: Observation kb Provider: Dino Jordan Location: Telemetry/MedSurg (observation) kb Condition: Stable kb Problem: new kb Symptoms: are unchanged kb Bed/Room Type: Standard Room Assignment: 230(04/23/22 22:53) cg Diagnosis - Cutaneous abscess of right lower limb kb Forms: - Medication Reconciliation Form kb - SBAR form kb Signatures: Dispatcher [employer] Meghna Arreola FNP-C FNP-Lina iCsneros, RN RN cg Nell Hanson RN RN Lizbeth Gramajo tw5 Corrections: (The following items were deleted from the chart) 22:52 20:32 kb cg 22:53 22:52 430 cg cg
--- NOTE | 2022-04-23 20:45 | P.HP ---
Certification for Inpatient Patient admitted to: Inpatient With expected LOS: <2 Midnights Patient will require the following post-hospital care: None Practitioner: I am a practitioner with admitting privileges, knowledge of patient current condition, hospital course, and medical plan of care. Services: Services provided to patient in accordance with Admission requirements found in Title 42 Section 412.3 of the Code of Federal Regulations Patient History Date of Service: 04/23/22 Reason for admission: Subcutanous Abscess History of Present Illness: Patient is a 46-year-old male with past medical history significant for anxiety disorder, ESRD, insulin dependent type 2 diabetes, hypertension, and CAD s/p CABG who presented to the emergency department with complaints of right lower extremity swelling and pain. Patient recently had a CABG at an outside facility in which they harvested a vessel from his RLE. He reports it got infected afterwards and was prescribed a 7 day course of antibiotics. States that it has not improved. Ultrasound showed "Complex fluid collection is seen beneath the skin at the area of interest/ incision site. This is most likely a subcutaneous abscess. The collection measures approximately 3.7 x 2.7 x 1[address] Valente was contacted and plans to take patient to the OR tomorrow. He was started on zosyn in the emergency department. Labs without significant abnormalities. Patient is admitted for further management. Allergies No Known Allergies Allergy (Verified 12/18/21 10:28) Home medications list reviewed: Yes Home Medications: ALPRAZolam [Alprazolam] 1 mg PO DAILYPRN PRN 09/29/19 Insulin Aspart [Novolog Penfill] 20 unit SQ TIDWM 09/29/19 Sevelamer Carbonate [Renvela*] 3 tab PO TIDWM 09/29/19 Nifedipine [Nifedipine ER] 90 mg PO DAILY 01/15/21 Ropinirole HCl 4 mg PO BEDTIME 01/15/21 Tizanidine HCl [Zanaflex] 4 mg PO BEDTIME 01/15/21 Aspirin [Aspirin EC 81 MG] 81 mg PO DAILY 12/18/21 Dicyclomine [Bentyl] 20 mg PO QID 12/18/21 Insulin Glargine,Hum.rec.anlog [Basaglar Kwikpen U-100] 20 unit SQ BEDTIME 12/18/21 - Past Medical/Surgical History Diabetic: Yes -: Diabetes mellitus type 2, insulin dependent -: Hypertension -: GERD -: Diabetic gastroparesis -: End stage renal disease on HD/ Dr. Mccoy -: IBS -: CAD s/p CABG -: Cataract surgery -: Laser for Retinal Detachment -: HD fistula surgery -: CABG Psychosocial/ Personal History: Patient is . He has no children. - Family History Father -: Diabetes, Kidney disease - Social History Smoking Status: Never smoker Alcohol use: Yes CD- Drugs: No Caffeine use: No Place of Residence: Home Review of Systems Musculoskeletal: Leg Pain Physical Examination - Vital Signs Temperature: 97.9 F Blood Pressure: 121/83 Pulse: 98 Respirations: 18 Pulse Ox (%): 93 - Physical Exam General: Alert, In no apparent distress HEENT: Atraumatic, EOMI, Sclerae nonicteric Neck: Supple, 2+ carotid pulse no bruit Respiratory: Clear to auscultation bilaterally, Normal air movement Cardiovascular: Regular rate/rhythm, Normal S1 S2 Gastrointestinal: Normal bowel sounds, No tenderness Musculoskeletal: No tenderness Integumentary: Tenderness/swelling, Erythema, Warmth (RLE) Neurological: Normal speech, Normal strength at 5/5 x4 extr, Normal affect - Studies Laboratory Data (last 24 hrs) 04/23/22 18:20: Sodium 134 L, Potassium 4.5, BUN 97 H, Creatinine 10.10 H*, Glucose 295 H 04/23/22 18:20: WBC 6.00, Hgb 8.3 L, Hct 25.1 L, Plt Count 169 Assessment and Plan - Problems (Diagnosis) (1) Subcutaneous abscess Current Visit: Yes Status: Acute Qualifiers: Site of cutaneous abscess: extremity Site of cutaneous abscess of extremity: lower extremity Laterality: right Qualified Code(s): L02.415 - Cutaneous abscess of right lower limb (2) CAD (coronary artery disease) Current Visit: Yes Status: Chronic Qualifiers: Coronary Disease-Associated Artery/Lesion type: bypass graft [place] vs. transplanted heart: [place] heart Associated angina: without angina Qualified Code(s): I25.810 - Atherosclerosis of coronary artery bypass graft(s) without angina pectoris (3) CHF (congestive heart failure) Current Visit: Yes Status: Chronic Qualifiers: Heart failure type: diastolic Heart failure chronicity: chronic Qualified Code(s): I50.32 - Chronic diastolic (congestive) heart failure (4) Diabetes mellitus Current Visit: Yes Status: Chronic Qualifiers: Diabetes mellitus type: type 2 Diabetes mellitus terminal superintendent insulin use: with skilled nursing use Diabetes mellitus complication status: with hyperglycemia Qualified Code(s): E11.65 - Type 2 diabetes mellitus with hyperglycemia; Z79.4 - exterminator termite (current) use of insulin (5) ESRD (end stage renal disease) on dialysis Current Visit: Yes Status: Chronic (6) HTN (hypertension) Current Visit: Yes Status: Chronic Qualifiers: Hypertension type: primary hypertension Qualified Code(s): I10 - Essential (primary) hypertension - Plan Patient is admitted for further management of subcutaenous abscess of RLE. NPO at midnight. Dr. Valente taking patient to OR tomorrow for I&D. Continue zosyn. No concerns for sepsis at this time. Dr. Mccoy consulted for HD. Glucose monitoring and control with sliding scale and home long acting once confirmed. Hemoglobin low at 8.3. Will type and screen and transfuse if < 7. Monitor and replete electrolytes per protocol. Reconcile and continue home medications. Discharge Plan: Home Plan to discharge in: 48 Hours - Advance Directives Does patient have a Living Will: No Does patient have a Durable POA for Healthcare: No - Code Status/Comfort Care Code Status Assessed: Yes Code Status: Full Code Physician Review: Patient Assessed, Agree with Above Assessment and Plan Critical Care: No Time Spent Managing Pts Care (In Minutes): 50
[2022-04-23] MEDS ORDERED: HYDROCODONE/APAP 10/325 TAB ONE (20:48)
[2022-04-23] MEDS ORDERED: PIPERACIL/TAZO 3.375 GM VIAL IV ONE (20:48)
[2022-04-23] MEDS ORDERED: NA CHLORIDE 0.9% 100 ML ONE (20:48)
[2022-04-23 21:03] LABS: SARS-CoV-2 Antigen Rapid Res Negative (Negative)
[2022-04-23] MEDS ORDERED: ONDANSETRON 4 MG/2 ML VIAL IV PRN (23:28)
[2022-04-23] MEDS ORDERED: MORPHINE 2 MG/ML SYR IV PRN (23:28)
[2022-04-23] MEDS ORDERED: ACETAMINOPHEN 500 MG TAB PO PRN (23:28)
[2022-04-24 03:44] LABS: Absolute Lymphocytes (CBC) 0.4 K/uL (0.7-4.9); Hematocrit 23.4 % (39.6-49.0); Lymphocytes % 5.1 % (15.3-44.8); MPV 7.7 fL (7.6-11.3)
[2022-04-24 04:13] LABS: Magnesium 2.1 mg/dL (1.6-2.4); Phosphorus 6.3 mg/dL (2.5-4.9); Potassium 5.1 mmol/L (3.5-5.1); Thyroid Stimulating Hormone 2.35 uIU/mL (0.358-3.740)
[2022-04-24] MEDS: INSULIN -REGULAR HUMAN 50 UNIT/0.5 ML ML SQ SCH ×5 (06:00→21:45)
[2022-04-24] MEDS: PIPER TAZO 2.25 GM in NA CHLORIDE 0.9% 50 ML IV SCH ×2 (08:29→21:51)
--- NOTE | 2022-04-24 10:25 | P.CNS ---
Date of Consult: 04/24/22 Reason for Consult: ESRD, missed dialysis, azotemia Requesting Physician: Alessandra Mosley Chief Complaint: Subcutanous Abscess History of Present Illness: Patient is a 46-year-old male with past medical history significant for insulin dependent type 2 diabetes, chronic hypertension, ESRD on iHD MWF at [facility] via Lt UE AVF and CAD s/p recent CABG at [facility] ED who presented to the emergency department with complaints of worsening right lower extremity swelling, hardening of the skin, pain and drainage at site of saphenous venectomy. Patient recently had a CABG at an outside facility in which they harvested a vessel from his RLE. U/s of the soft tissue at site shows possible SC abcess while venous doppler shows no evidence of DVT. Pt has been placed on Abx. Pt missed HD Mon and reports last HD on Fri. Allergies No Known Allergies Allergy (Verified 12/18/21 10:28) Home Medications: Nifedipine [Nifedipine ER] 90 mg PO DAILY 01/15/21 Aspirin [Aspirin EC 81 MG] 81 mg PO DAILY 12/18/21 Dicyclomine [Bentyl] 20 mg PO TID 12/18/21 Amitriptyline [Elavil*] 1 tab PO BEDTIME 04/24/22 Atorvastatin Calcium 1 tab PO BEDTIME 04/24/22 Dicyclomine [Bentyl*] 1 cap PO TID 04/24/22 Docusate Sodium 1 cap PO BID 04/24/22 Hydralazine [Apresoline*] 1 tab PO Q8HP PRN 04/24/22 Pantoprazole [Protonix Tab*] 1 tab PO DAILY 04/24/22 Telmisartan 40 mg PO BEDTIME 04/24/22 - Past Medical/Surgical History Diabetic: Yes -: Diabetes mellitus type 2, insulin dependent -: Hypertension -: GERD -: Diabetic gastroparesis -: End stage renal disease on HD/ Dr. Mccoy -: IBS -: CAD s/p CABG -: Cataract surgery -: Laser for Retinal Detachment -: HD fistula surgery -: CABG Psychosocial/ Personal History: Patient is . He has no children. - Family History Father Medical History: Diabetes, Kidney disease - Social History Smoking Status: Unknown if ever smoked Alcohol use: Yes CD- Drugs: No Caffeine use: Yes Place of Residence: Home Review of Systems General: Malaise Eyes: Unremarkable ENT: Unremarkable Respiratory: Shortness of Breath Cardiovascular: Unremarkable Gastrointestinal: Unremarkable Genitourinary: Unremarkable Musculoskeletal: Leg Pain Integumentary: As per HPI Neurological: Unremarkable Physical Examination Temp Pulse Resp BP Pulse Ox 98.3 F 79 18 110/61 98 04/24/22 08:00 04/24/22 08:00 04/24/22 08:00 04/24/22 08:00 04/24/22 08:00 General: Alert, In no apparent distress, Oriented x3 HEENT: Atraumatic, Normocephalic, Other (NC present) Neck: Supple Respiratory: Clear to auscultation bilaterally, Normal air movement Cardiovascular: Regular rate/rhythm, Normal S1 S2, Other (Sternotomy site healed well) Gastrointestinal: Soft and benign, Non-distended, No tenderness Musculoskeletal: Other (Rt calf tight, swollen, tender to exam, site of venotomy noted. Lt UE AVF with thrill and bruit) Integumentary: Other (Erythema across posteromedial knowles, saphenous venotomy wound noted along with a blister and scan below that site) Neurological: Normal speech, Normal affect Laboratory Data (last 24 hrs) 04/23/22 18:20: Sodium 134 L, Potassium 4.5, BUN 97 H, Creatinine 10.10 H*, Glucose 295 H 04/23/22 18:20: WBC 6.00, Hgb 8.3 L, Hct 25.1 L, Plt Count 169 Conclusions/Impression: A/P) 1. ESRD 2nd to chronic conditions. Marked azotemia with missed HD, will plan to dialyze today for metab clearance and UF as tolerated, see orders for details. 2. Metab acidosis, hyperphosphatemia 2nd to renal failure -will address with HD 3. Volume overload related to missed HD -will target UF of 2.5-3L as tolerated. 4. BP range acceptable although can be labile at times. Home BP meds not seen o rdered, f/u post HD BP and resume as appropriate 5. Post saphenous venectomy Rt leg cellulitis +/- SC abscess, cont Abx, I&D per surgery. 6. Dose meds for reduced CrCl 7. Worsened chronic anemia due to CKD/inflammation post CABG, monitor for transfusion needs, dose Retacrit on HD today. Colin Mayorga MD, AMADEO
[2022-04-24] MEDS ORDERED: VANCOMYCIN 1 GM in NA CHLORIDE 0.9% 250 ML IVPB SCH (11:00)
--- NOTE | 2022-04-24 11:39 | P.CNS ---
Chief Complaint: Subcutanous Abscess History of Present Illness: Patient is a 46-year-old male with past medical history significant for anxiety disorder, ESRD, insulin dependent type 2 diabetes, hypertension, and CAD s/p CABG who presented to the emergency department with complaints of right lower extremity swelling and pain. Patient recently had a CABG at an outside facility in which they harvested a vessel from his RLE. He reports it got infected afterwards and was prescribed a 7 day course of antibiotics. States that it has not improved. Ultrasound showed "Complex fluid collection is seen beneath the skin at the area of interest/ incision site. This is most likely a subcutaneous abscess. The collection measures approximately 3.7 x 2.7 x 1.[address] Valente was contacted and plans to take patient to the OR tomorrow. He was started on zosyn in the emergency department. Labs without significant abnormalities. Patient is admitted for further management ID has been consulted for IV antibiotics recommendations and management for right leg abscess Allergies No Known Allergies Allergy (Verified 12/18/21 10:28) Home Medications: Nifedipine [Nifedipine ER] 90 mg PO DAILY 01/15/21 Aspirin [Aspirin EC 81 MG] 81 mg PO DAILY 12/18/21 Dicyclomine [Bentyl] 20 mg PO TID 12/18/21 Amitriptyline [Elavil*] 1 tab PO BEDTIME 04/24/22 Atorvastatin Calcium 1 tab PO BEDTIME 04/24/22 Dicyclomine [Bentyl*] 1 cap PO TID 04/24/22 Docusate Sodium 1 cap PO BID 04/24/22 Hydralazine [Apresoline*] 1 tab PO Q8HP PRN 04/24/22 Pantoprazole [Protonix Tab*] 1 tab PO DAILY 04/24/22 Telmisartan 40 mg PO BEDTIME 04/24/22 - Past Medical/Surgical History Diabetic: Yes -: Diabetes mellitus type 2, insulin dependent -: Hypertension -: GERD -: Diabetic gastroparesis -: End stage renal disease on HD/ Dr. Mccoy -: IBS -: CAD s/p CABG -: Cataract surgery -: Laser for Retinal Detachment -: HD fistula surgery -: CABG Psychosocial/ Personal History: Patient is . He has no children. - Family History Father Medical History: Diabetes, Kidney disease - Social History Smoking Status: Unknown if ever smoked Alcohol use: Yes CD- Drugs: No Caffeine use: Yes Place of Residence: Home Review of Systems 10-point ROS is otherwise unremarkable Gastrointestinal: Nausea Integumentary: Other (right leg postsurgical wound) Physical Examination Temp Pulse Resp BP Pulse Ox 98.3 F 79 18 110/61 98 04/24/22 08:00 04/24/22 08:00 04/24/22 08:00 04/24/22 08:00 04/24/22 08:00 General: Alert, In no apparent distress, Oriented x3 Neck: Supple Respiratory: Clear to auscultation bilaterally, Other (on 2.5 L NC) Cardiovascular: Normal S1 S2, Edema (right leg 2+ edema) Gastrointestinal: Normal bowel sounds Musculoskeletal: Swelling (right leg 2+ edema), Erythema (right leg postsurgical wound), Warmth (right leg postsurgical wound) Integumentary: Tenderness/swelling (right leg postsurgical wound), Erythema (right leg postsurgical wound), Warmth (right leg postsurgical wound), Venous stasis ulcer Neurological: Normal speech, Normal tone, Normal affect Urinary: Dialysis catheter, Other (left arm HD nimo) Laboratory Data (last 24 hrs) 04/23/22 18:20: Sodium 134 L, Potassium 4.5, BUN 97 H, Creatinine 10.10 H*, Glucose 295 H 04/23/22 18:20: WBC 6.00, Hgb 8.3 L, Hct 25.1 L, Plt Count 169 - Problems (1) Subcutaneous abscess Current Visit: Yes Status: Acute Plan: Cultures: 04/23 BC: Pending Antibiotics: On IV Zosyn (04/23- ) and Vancomycin (04/24- ) Recommendations: Continue IV Zosyn and Vancomycin ID will recommend antibiotics drug of choice when cultures are available Wound care: Use Betadine to clean the wound and covered with Mepilex daily and when soiled Qualifiers: Site of cutaneous abscess: extremity Site of cutaneous abscess of extremity: lower extremity Laterality: right Qualified Code(s): L02.415 - Cutaneous abscess of right lower limb Conclusions/Impression: - Subcutaneous abscess: On IV Zosyn and Vancomycin - Stasis dermatitis - Diabetes mellitus type 2 - Anemia of chronic disease - Hypertension - CHF - GERD - Diabetic gastroparesis - End stage renal disease on HD: Nephrology onboard - IBS - CAD s/p CABG - Cataract surgery - Laser for Retinal Detachment - HD fistula surgery - CABG ID will monitor the patient closely for signs of infection with fever and WBC trends Case has been discussed with Mya Arriaga Thank you Dr. Jordan for consultation
[2022-04-24] MEDS ORDERED: EPOETIN ALFA 10,000 UNIT/ML VIAL IV ONE (12:00)
--- NOTE | 2022-04-24 12:03 | RAD REPORT ---
EXAM DESCRIPTION: RAD - Chest Single View - 04/24/2022 11:56 am CLINICAL HISTORY: oxygen needs Chest pain. COMPARISON: <Comparisons> FINDINGS: Portable technique limits examination quality. Mild patchy opacity is seen in the left base with a small left pleural effusion, likely representing developing infiltrate/ pneumonia. Mild interstitial pulmonary edema pattern is also present. The hear t is moderately enlarged with sternotomy wires present. IMPRESSION: Mild left base pneumonia pattern is suspected superimposed on CHF.
--- NOTE | 2022-04-24 12:48 | P.PN ---
Subjective Date of Service: 04/24/22 Chief Complaint: Subcutanous Abscess Patient complaining of pain in the right leg. He has had no fever. Physical Examination - Vital Signs Temperature: 98.1 F Blood Pressure: 104/56 Pulse: 62 Respirations: 17 Pulse Ox (%): 97 - Studies Laboratory Data (last 24 hrs) 04/23/22 18:20: Sodium 134 L, Potassium 4.5, BUN 97 H, Creatinine 10.10 H*, Glucose 295 H 04/23/22 18:20: WBC 6.00, Hgb 8.3 L, Hct 25.1 L, Plt Count 169 Assessment And Plan - Current Problems (Diagnosis) (1) Subcutaneous abscess Current Visit: Yes Status: Acute Qualifiers: Site of cutaneous abscess: extremity Site of cutaneous abscess of extremity: lower extremity Laterality: right Qualified Code(s): L02.415 - Cutaneous abscess of right lower limb (2) CAD (coronary artery disease) Current Visit: Yes Status: Chronic Qualifiers: Coronary Disease-Associated Artery/Lesion type: bypass graft [place] vs. 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: with [facility] use Diabetes mellitus complication status: with hyperglycemia Qualified Code(s): E11.65 - Type 2 diabetes mellitus with hyperglycemia; Z79.4 - [facility] (current) use of insulin (4) ESRD (end stage renal disease) on dialysis Current Visit: Yes Status: Chronic (5) HTN (hypertension) Current Visit: Yes Status: Chronic Qualifiers: Hypertension type: primary hypertension Qualified Code(s): I10 - Essential (primary) hypertension - Plan Physical Exam General: Alert, In no apparent distress Neck: No elevated JVD Respiratory: Clear to auscultation bilaterally, Normal air movement Cardiovascular: Regular rate/rhythm, Normal S1 S2 Gastrointestinal: Normal bowel sounds, No tenderness Musculoskeletal: No tenderness Integumentary: Tenderness, swelling/induration erythema surrounding 2 healing wounds on the medial aspect of the right leg. Neurological: Normal speech, Normal strength at 5/5 x4 extr, Normal affect. Plan: Ultrasound of the right leg is showing complex fluid collection beneath the skin at the incision site indicating subcutaneous abscess. IV antibiotics-Zosyn and Vanco. General surgery-Dr. Valente consulted to evaluate for possible I&D. Routine hemodialysis per nephrology. Pain management as needed. Patient with anemia of chronic kidney disease. Monitor CBC and transfuse as needed for hemoglobin less than 7. Continue home medications for coronary artery disease. Hold antihypertensives today given soft blood pressure readings.
[2022-04-24] MEDS ORDERED: FENTANYL CITR 100 MCG/2 ML IV PRN (12:50)
[2022-04-24] MEDS: DICYCLOMINE HCL 10 MG CAP PO SCH ×2 (14:18→21:51)
[2022-04-24] MEDS ORDERED: NA CHLORIDE 0.9% 500 ML ONE (15:33)
[2022-04-24] MEDS ORDERED: propofoL 200 MG/20 ML VIAL IV ONE (17:14)
[2022-04-24] MEDS ORDERED: LIDOCAINE 2% MPF 5 ML VIAL ONE (17:14)
[2022-04-24] MEDS ORDERED: FENTANYL CITR 100 MCG/2 ML ONE (17:15)
[2022-04-24] MEDS ORDERED: ONDANSETRON 4 MG/2 ML VIAL ONE (17:15)
--- NOTE | 2022-04-24 17:25 | P.CNS ---
Date of Consult: 04/24/22 PC: I was asked to see this 46-year-old male regards to a abscess on his right leg. HPC: Patient had undergone cardiac bypass, the vein site on his right leg shows a fluid collection and apparently is infected in the right upper part of his right leg. PSHx: Coronary artery bypass 6 weeks ago PMHx: Diabetic, dialysis Social Hx: No known allergies Sys R: States he has been doing well until he developed this pain about a week ago. Contacted his cardiac surgeon who put him on antibiotics. O/E: Awake alert stable, uncomfortable HEENT: Negative Chest: Air entry equal bilaterally Abd: Negative [place]: Surgical incisions on his right leg. At the upper most 1 on his right lower leg on the medial aspect has an area of scab formation with some fluctuance underneath Data: Ultrasound shows fluid collection Impression: Abscess in venous graft site right lower leg Plan: I will taken the operating room to open this up and drain it for him. He will be able to follow-up with us on discharge at the wound care center.
[2022-04-24] MEDS ORDERED: GLYCOPYRROLATE 0.2 MG/ML SYR ONE (17:33)
--- NOTE | 2022-04-24 17:47 | P.OP ---
Preoperative diagnosis: Abscess of the right lower leg Postoperative diagnosis: The same Primary procedure: Incision, drainage, and surgical debridement of surgical wound Anesthesia: General Estimated blood loss: Less than 10 cc Specimen: None was Operative Technique: The patient brought the operating room and placed supine on the table. After the induction of adequate general anesthesia, the area of the right leg was prepped with a Betadine solution, he was draped in the usual aseptic manner. Attention was turned towards the right lower leg. On the medial surface where the patient apparently had a previous vein graft taken from, this incision was opened. Underneath we found a area of purulent material as well as some necrotic fat old suture and part of a thrombosed vein. The vein was grasped w ith a hemostat the redundant portion was excised using a Metzenbaum scissors as well as the old suture that was there this was freshly tied with a surgical tie of silk the wound was then sharp debrided with an 11 blade, and a cutting surgical curette back to clean viable tissue. Necrotic fat was removed. The area was then packed with quarter inch iodoform gauze. Attention was turned towards this wound just inferiorly. The superficial portion showed some excessive crusting and bleeding. This was taken back down to the skin level itself. No abscess was seen in this area. It was dressed superficially was just some Xeroform gauze. 4 x 4's and a Kerlix roll was then applied to the leg. At the end of the procedure he was stable and sent to the recovery room. Complications: None Transferred to: Recovery Room Condition: Good
[2022-04-24] MEDS ORDERED: MORPHINE 4 MG/ML SYR ONE (18:24)
[2022-04-24] MEDS ORDERED: ATORVASTATIN 40 MG TAB PO SCH (21:00)
[2022-04-24] MEDS ORDERED: AMITRIPTYLINE 50 MG TAB PO SCH (21:00)
[2022-04-24] MEDS: DOCUSATE NA 100 MG CAP PO SCH (21:51)
[2022-04-25 03:42] LABS: Absolute Lymphocytes (CBC) 0.9 K/uL (0.7-4.9); Hematocrit 23.7 % (39.6-49.0); MCV 90.6 fL (80-100); MPV 7.9 fL (7.6-11.3); RBC Red Blood Cell Count 2.62 M/uL (4.33-5.43)
[2022-04-25 04:28] LABS: Potassium 5.9 mmol/L (3.5-5.1)
[2022-04-25 05:39] VITALS: BP 152/80; TEMP 98.9
[2022-04-25 06:22] VITALS: BMI 31.9
[2022-04-25] MEDS: INSULIN -REGULAR HUMAN 50 UNIT/0.5 ML ML SQ SCH ×2 (07:30→11:30)
[2022-04-25] MEDS ORDERED: HYDROCODONE/APAP 5/325 MG TAB PO PRN (07:59)
--- NOTE | 2022-04-25 08:33 | P.PN ---
Subjective Date of Service: 04/25/22 Chief Complaint: Subcutanous Abscess Patient lying in bed with family member at the bedside. No major events upon examination. Right leg I&D dressing in place with serosanguanious drainage seen. Physical Examination - Vital Signs Temperature: 98.9 F Blood Pressure: 152/80 Pulse: 78 Respirations: 16 Pulse Ox (%): 92 - Physical Exam General: Alert, In no apparent distress, Oriented x3 Respiratory: Clear to auscultation bilaterally Cardiovascular: Normal S1 S2, Edema (right leg 2+ edema) Gastrointestinal: Normal bowel sounds Musculoskeletal: Swelling (right leg 2+ edema), Erythema (Right lower extremity cellulitis s/p I&D, day 1), Other (Right lower extremity cellulitis s/p I&D, day 1) Integumentary: Tenderness/swelling (right leg 2+ edema), Erythema (Right lower extremity cellulitis s/p I&D, day 1), Venous stasis ulcer Neurological: Normal speech, Normal tone, Sensation intact, Normal affect Urinary: Other (left arm HD graft) - Studies Acetaminophen (Acetaminophen 500 Mg Tab) 500 mg PO Q4HP PRN PRN Reason: Pain scale 2-4 (Mild) Last Admin: 04/24/22 06:17 Dose: 500 mg Hydrocodone Bitart/Acetaminophen (Hydrocodone/Apap 5/325 Mg Tab) 1 tab PO Q4H PRN PRN Reason: Pain scale 5-7 (Moderate) Amitriptyline HCl (Amitriptyline 50 Mg Tab) 50 mg PO BEDTIME [facility] Last Admin: 04/24/22 21:00 Dose: 50 mg Atorvastatin Calcium (Atorvastatin 40 Mg Tab) 40 mg PO BEDTIME [facility] Last Admin: 04/24/22 21:52 Dose: 40 mg Dicyclomine HCl (Dicyclomine Hcl 10 Mg Cap) 10 mg PO TID [facility] Last Admin: 04/24/22 21:51 Dose: 10 mg Docusate Sodium (Docusate Na 100 Mg Cap) 100 mg PO BID [facility] Last Admin: 04/24/22 21:51 Dose: 100 mg Fentanyl Citrate (Fentanyl Citr 100 Mcg/2 Ml) 25 mcg IV Q4H PRN PRN Reason: Pain scale 8-10 (Severe) Heparin Sodium (Porcine) (Heparin 1,000 Unit/Ml Vial) 2,000 unit IV EVERY HD PRN PRN Reason: PrevenT Lines Clotting Piperacillin Sod/Tazobactam (Sod 2.25 gm/ Sodium Chloride) 50 mls @ 100 mls/hr IV Q12H [facility]; Protocol Last Admin: 04/24/22 21:51 Dose: 50 mls Vancomycin HCl 1 gm/ Sodium (Chloride) 250 mls @ 250 mls/hr IVPB AFTER EACH DIALYSIS [facility]; Protocol Insulin Human Regular (Insulin -Regular Human 50 Unit/0.5 Ml Ml) 0 unit SQ ACHS [facility]; Protocol Last Admin: 04/25/22 07:30 Dose: Not Given Ondansetron HCl (Ondansetron 4 Mg/2 Ml Vial) 4 mg IV Q6HP PRN PRN Reason: NAUSEA / VOMITING Last Admin: 04/24/22 02:55 Dose: 4 mg Pantoprazole Sodium (Pantoprazole 40mg Tablet) 40 mg PO DAILY [facility]; Protocol Sodium Chloride (Flush Normal Saline 10 Ml) 10 ml IV BID [facility] Last Admin: 04/24/22 21:00 Dose: 10 ml Microbiology Data (last 24 hrs): Microbiology 04/23/22 18:45 Blood - Blood Aerobic Blood Culture - Preliminary No growth in 24 hours. 04/23/22 18:45 Blood - Blood Anaerobic Blood Culture - Preliminary No growth in 24 hours. 04/23/22 18:20 Blood - Blood Aerobic Blood Culture - Preliminary No growth in 24 hours. 04/23/22 18:20 Blood - Blood Anaerobic Blood Culture - Preliminary No growth in 24 hours. Assessment And Plan - Current Problems (Diagnosis) (1) Right leg cellulitis Current Visit: Yes Status: Acute Plan: Cultures: 04/23 BC x 2: Negative @24 hrs Antibiotics: On IV Zosyn (04/23- ) and Vancomycin (04/24- ) Recommendations: Continue IV Vancomycin (04/24- ) STOP IV Zosyn and SWITCH to Cefepime Need IV antibiotics for total of 2 weeks duration Wound care: Apply iodosorb ointment and covered with surgical dressing and secure with Kerlix Dr. Cartagena performed Incision, drainage, and surgical debridement of surgical wound on 04/24 with no abscess found - Plan - Subcutaneous abscess: Need IV antibiotics for total of 2 weeks duration. I&D performed on 04/24 - Stasis dermatitis - Diabetes mellitus type 2 - Anemia of chronic disease - Hypertension - CHF - GERD - Diabetic gastroparesis - End stage renal disease on HD: Nephrology onboard - IBS - CAD s/p CABG - Cataract surgery - Laser for Retinal Detachment - HD fistula surgery - CABG ID will monitor the patient closely for signs of infection with fever and WBC trends Case has been discussed with Dr. Gonzales N Physician Review: Patient Assessed, Agree with Above Assessment and Plan
[2022-04-25] MEDS: DICYCLOMINE HCL 10 MG CAP PO SCH (08:37)
[2022-04-25] MEDS: DOCUSATE NA 100 MG CAP PO SCH (08:37)
[2022-04-25] MEDS: PIPER TAZO 2.25 GM in NA CHLORIDE 0.9% 50 ML IV SCH (08:39)
[2022-04-25] MEDS ORDERED: PANTOPRAZOLE 40MG TABLET PO SCH (09:00)
[2022-04-25 09:46] VITALS: O2SAT 91
[2022-04-25] MEDS ORDERED: levoFLOXacin 750 MG TAB PO ONE (13:31)
--- NOTE | 2022-04-25 13:34 | P.DS ---
Admission Date: 04/23/22 Discharge Date: 04/25/22 Disposition: ROUTINE DISCHARGE Discharge Condition: FAIR Reason for Admission: Subcutanous Abscess - Problems (1) Subcutaneous abscess Current Visit: Yes Status: Acute Qualifiers: Site of cutaneous abscess: extremity Site of cutaneous abscess of extremity: lower extremity Laterality: right Qualified Code(s): L02.415 - Cutaneous abscess of right lower limb (2) CAD (coronary artery disease) Current Visit: Yes Status: Chronic Qualifiers: Coronary Disease-Associated Artery/Lesion type: bypass graft [place] vs. transplanted heart: [place] heart Associated angina: without angina Qualified Code(s): I25.810 - Atherosclerosis of coronary artery bypass graft(s) without angina pectoris (3) Diabetes mellitus Current Visit: Yes Status: Chronic Qualifiers: Diabetes mellitus type: type 2 Diabetes mellitus senior living insulin use: with senior living use Diabetes mellitus complication status: with hyperglycemia Qualified Code(s): E11.65 - Type 2 diabetes mellitus with hyperglycemia; Z79.4 - [facility] (current) use of insulin (4) ESRD (end stage renal disease) on dialysis Current Visit: Yes Status: Chronic (5) HTN (hypertension) Current Visit: Yes Status: Chronic Qualifiers: Hypertension type: primary hypertension Qualified Code(s): I10 - Essential (primary) hypertension Brief History of Present Illness: Patient is a 46-year-old male with past medical history significant for anxiety disorder, ESRD, insulin dependent type 2 diabetes, hypertension, and CAD s/p CABG who presented to the emergency department with complaints of right lower extremity swelling and pain. Patient had a CABG at an outside facility in which they harvested a vessel from his RLE 1 month ago. He reports it got infected afterwards and was prescribed a 7 day course of antibiotics. States that it dii not improve. Ultrasound showed "Complex fluid collection beneath the skin at the area of interest/ incision site. This is most likely a subcutaneous abscess. Surgery Dr. Valente was contacted and OR for debridement. He was started on zosyn in the emergency department and admitted for further management. Hospital Course: Patient admitted to the medical floor and treated with iv antibiotics-Zosyn and Vanco. General surgery-Dr. Valente consulted who performed incision and drainage. Patient was seen by nephrology and he underwent routine hemodialysis. Infectious disease was consulted who recommended IV vancomycin with dialysis outpatient. Dr. Valente is okay with discharge for him to follow-up at the wound care clinic next week. Wound was packed and dressed. Dr. Valente plans to continue wound care at the wound care center and recommended to keep the packing on until follow-up. Patient was prescribed Levaquin and Flagyl. Patient has anemia of chronic kidney disease which was stable during the hospital stay. Continued home medications for coronary artery disease. Other medications include antihypertensives resumed on discharge. Vital Signs/Physical Exam: Temp Pulse Resp BP Pulse Ox 98.9 F 78 16 152/80 H 92 04/25/22 10:02 04/25/22 10:02 04/25/22 10:02 04/25/22 10:02 04/25/22 10:02 General: Alert, In no apparent distress, Oriented x3 HEENT: Mucous membr. moist/pink Neck: Supple, JVD not distended Respiratory: Clear to auscultation bilaterally, Normal air movement Cardiovascular: Regular rate/rhythm, Normal S1 S2 Gastrointestinal: Soft and benign, Non-distended Neurological: Normal strength at 5/5 x4 extr Laboratory Data at Discharge: WBC 5.60 K/uL (4.3-10.9) 04/25/22 03:03 Hgb 7.8 g/dL (13.6-17.9) L 04/25/22 03:03 Hct 23.7 % (39.6-49.0) L 04/25/22 03:03 Plt Count 144 K/uL (152-406) L 04/25/22 03:03 Sodium 132 mmol/L (136-145) L 04/25/22 03:03 Potassium 5.9 mmol/L (3.5-5.1) H* D 04/25/22 03:03 BUN 100 mg/dL (7-18) H 04/25/22 03:03 Creatinine 11.80 mg/dL (0.70-1.30) H* 04/25/22 03:03 Glucose 212 mg/dL (74-106) H 04/25/22 03:03 Phosphorus 6.3 mg/dL (2.5-4.9) H 04/24/22 02:48 Magnesium 2.1 mg/dL (1.6-2.4) 04/24/22 02:48 Triglycerides 39 mg/dL (<150) 04/24/22 02:48 Cholesterol 98 mg/dL (<200) 04/24/22 02:48 HDL Cholesterol 51 mg/dL (40-60) 04/24/22 02:48 Cholesterol/HDL Ratio 1.92 04/24/22 02:48 Home Medications: Nifedipine [Nifedipine ER] 90 mg PO DAILY 01/15/21 Aspirin [Aspirin EC 81 MG] 81 mg PO DAILY 12/18/21 Dicyclomine [Bentyl*] 20 mg PO TID 12/18/21 Amitriptyline [Elavil*] 1 tab PO BEDTIME 04/24/22 Atorvastatin Calcium 1 tab PO BEDTIME 04/24/22 Dicyclomine [Bentyl*] 1 cap PO TID 04/24/22 Docusate Sodium 1 cap PO BID 04/24/22 Hydralazine [Apresoline*] 1 tab PO Q8HP PRN 04/24/22 Pantoprazole [Protonix Tab*] 1 tab PO DAILY 04/24/22 Telmisartan 40 mg PO BEDTIME 04/24/22 Heparin [Heparin 1,000 units/mL *] 2,000 unit IV EVERY HD PRN vial 04/25/22 Hydrocodone 5/APAP 325 [[place] 5/325*] 1 tab PO Q4H PRN #20 tab 04/25/22 levoFLOXacin [Levaquin] 250 mg PO DAILY #13 tab 04/25/22 metroNIDAZOLE [Flagyl] 500 mg PO Q8H #42 tab 04/25/22 New Medications: metroNIDAZOLE [Flagyl] 500 mg PO Q8H #42 tab levoFLOXacin [Levaquin] 250 mg PO DAILY #13 tab Hydrocodone 5/APAP 325 [[place] 5/325*] 1 tab PO Q4H PRN #20 tab PRN Reason: Pain Scale 5-7 (Moderate) Diet: Renal Activity: Ad chandrika Followup: NONE,NONE [Primary Care Provider] - Jimmy Valente MD [ACTIVE - CAN ADMIT] - (Please follow-up at the wound care center next week.) Time spent managing pt's care (in minutes): 33
--- NOTE | 2022-04-25 19:42 | P.PN ---
Date of Service: 04/25/22 Vital Signs Temp Pulse Resp BP Pulse Ox 98.9 F 78 16 152/80 H 92 04/25/22 10:02 04/25/22 10:02 04/25/22 10:02 04/25/22 10:02 04/25/22 10:02 Microbiology Results 04/23/22 18:45 Blood - Blood Aerobic Blood Culture - Preliminary No growth in 24 hours. 04/23/22 18:45 Blood - Blood Anaerobic Blood Culture - Preliminary No growth in 24 hours. 04/23/22 18:20 Blood - Blood Aerobic Blood Culture - Preliminary No growth in 24 hours. 04/23/22 18:20 Blood - Blood Anaerobic Blood Culture - Preliminary No growth in 24 hours. Assessment/ Plan: Nephrology No dyspnea No chest pain No acute events overnight Vitals, medications, blood work and imaging reviewed in the chart. NAD. NCAT. MMM. Neck supple. Normal respiratory effort. RRR. Abd ND. No C/C/E. No rash. AAO. Normal speech. ESRD on HD -Acute HD as ordered -Seen and examined on HD Diastolic CHF, A/C -HD with UF -Low sodium diet Anemia in CKD -Retacrit prn
== END 2022-04-25 16:00 | disposition home or self-care (01) | DRG 856 ==
LOC: ER 16:58 → ERHOLD 20:34 → 2ND 23:20
PROVIDERS: ADMIT Internal Medicine; ATTEND Internal Medicine
PROC: 0JBN0ZZ Excision of Right Lower Leg Subcutaneous Tissue and Fascia, Open Approach (ICD-10-PCS; principal; 2022-04-24 15:00)
PROC: 5A1D70Z Performance of Urinary Filtration, Intermittent, Less than 6 Hours Per Day (ICD-10-PCS; 2022-04-25)
DX: T81.41XA Infection following a procedure, superficial incisional surgical site, initial encounter (principal); I50.33 Acute on chronic diastolic (congestive) heart failure; N18.6 End stage renal disease; L02.415 Cutaneous abscess of right lower limb; I13.2 Hypertensive heart and chronic kidney disease with heart failure and with stage 5 chronic kidney disease, or end stage renal disease; I25.810 Atherosclerosis of coronary artery bypass graft(s) without angina pectoris; E87.20 Acidosis, unspecified; L03.115 Cellulitis of right lower limb; E11.22 Type 2 diabetes mellitus with diabetic chronic kidney disease; E11.65 Type 2 diabetes mellitus with hyperglycemia; D63.8 Anemia in other chronic diseases classified elsewhere; K58.9 Irritable bowel syndrome, unspecified; L30.9 Dermatitis, unspecified; D63.1 Anemia in chronic kidney disease; K21.9 Gastro-esophageal reflux disease without esophagitis; E83.39 Other disorders of phosphorus metabolism; Z99.2 Dependence on renal dialysis; Z95.1 Presence of aortocoronary bypass graft; Z95.9 Presence of cardiac and vascular implant and graft, unspecified; Z63.5 Disruption of family by separation and divorce; Z79.4 Long term (current) use of insulin; Z91.15 Patient's noncompliance with renal dialysis; Z79.82 Long term (current) use of aspirin; Z79.899 Other long term (current) drug therapy; Z20.822 Contact with and (suspected) exposure to COVID-19
CPT/HCPCS: 36415; 71045; 76882; 80048; 80061; 82947; 83036; 83735; 84100; 84443; 85025; 86850; 86900; 86901; 87040; 87811; 90935; 93971; 96365; 99285; J1644; J1815; J2001; J2250; J2270; J2405; J2543; J2704; J3010; J7040

== ENCOUNTER 2023-01-20 23:45 | Emergency (ER) | payer OTHER ==
--- OUTSIDE RECORDS SUMMARY | 2023-01-21 00:04 | XMS REPORT | Continuity of Care Document ---
:1975 Author Organization [facility] t Address [address] [facility] [address] [place] [id number] Care Team Providers Name Role Phone Jennifer James Primary Care Physician LEONARD GOVEA Attending Clinician Unavailable HO, MARIPOSA K.HMena Attending Clinician Unavailable Ho SAINI, Mariposa K.H. Attending Clinician Pob, Adc Lab Main Attending Clinician Unavailable Melina SCHNEIDER, Noé Bobo Attending Clinician Unavailable JAC BORGES Attending Clinician Unavailable JAC BORGES Attending Clinician Unavailable Javon Gooden MD Attending Clinician Kaela Gallegos DO Attending Clinician Jose R Delgado MD Attending Clinician Nelson Blackburn MD Attending Clinician Bjorn Michelle MD Attending Clinician BJORN MICHELLE Attending Clinician Unavailable KRISTY DECKER Attending Clinician Unavailable Victorino SAINI, Juan Carlos Attending Clinician Kristy Decker MD Attending Clinician Juliette Turk MD Attending Clinician Kristy Argueta MD Attending Clinician KRISTY ARGUETA Attending Clinician Unavailable Doctor Unassigned, [place] Attending Clinician Unavailable Nithin Chaudhry Attending Clinician Unavailable ELISE RG Attending Clinician Unavailable ELISE RG Attending Clinician Unavailable DORI NORIEGA Attending Clinician Unavailable Elise Rg MD Attending Clinician Erin Zelaya MD Attending Clinician Navi SAINI, Izzy Roque Attending Clinician [phone], [facility] Cardio Fac Room Attending Clinician Unavailable Pc, Adc Echo Room 1 - Attending Clinician Unavailable Sarah Lewis MD Attending Clinician Vtc-Lab Attending Clinician Unavailable ERIN ZELAYA Attending Clinician Unavailable JOSE R DELGADO Admitting Clinician Unavailable Jose R Delgado MD Admitting Clinician JULIETTE TURK Admitting Clinician Unavailable Juliette Turk MD Admitting Clinician Bjorn Michelle MD Admitting Clinician MARIPOSA TEAGUE Admitting Clinician Unavailable Nithin Chaudhry Admitting Clinician Unavailable Payers Payer Name Policy Type Policy Number Effective Date Expiration Date S ource MEDICARE PART A \\T\\ [id number] 2012 B 00:00:00 COMMERCIAL [id number] 2016 NON-CONTRACT 00:00:00 GENERIC [employer] AND [id number] 2016 [employer] INS[employer] CO 00:00:00 Problems Condition Condition Condition Status Onset Resolution Last Treating Co mments Source Name Details Category Date Date Treatment Clinician Date NSTEMI NSTEMI Disease Active Univers (non-ST (non-ST 8-15 ity of elevated elevated 00:00: [place] myocardial myocardial 00 Me dical infarction infarction Br anch ) ) Coronary Coronary Disease Active Overview: Un gregg artery artery 6-26 Formattin ity of disease disease 00:00: g of this [place] involving involving 00 note Medi siva [place] might be Branch artery of artery of different transplant transplant from the ed heart ed heart original. without without Added angina angina automatic pectoris pectoris ally from request for surgery [id number] S/P CABG S/P CABG Disease Active Overview: Un gregg (coronary (coronary 6-26 Formattin i ty of artery artery 00:00: g of this [place] bypass bypass 00 note Medical graft) graft) might be Branch different from the original. Added automatic ally from request for surgery [id number] Pulmonary Pulmonary Disease Active Overview: Univers hypertensi hypertensi 6-26 Formattin ity of on on 00:00: g of this [place] 00 note Medical might be Branch different from the original. Added automatic ally from request for surgery [id number] Dyslipidem Dyslipidem Disease Active Overview : Univers ia ia 6-26 Formattin ity of 00:00: g of this [place] 00 note Medical might be Branch different from the original. Added automatic ally from request for surgery [id number] PAF PAF Disease Active Overview: Univer s (paroxysma (paroxysma 6-26 Formattin ity of l atrial l atrial 00:00: g of this [place] as fibrillati fibrillati 00 note Me dical on) on) might be Branch different from the original. Added automatic ally from request for surgery [id number] SHORT SHORT Disease Active Overview: Univer s (dyspnea (dyspnea 6-26 Formattin ity of on on 00:00: g of this [place] exertion) exertion) 00 note Medi siva might be Branch different from the original. Added automatic ally from request for surgery [id number] Nonobstruc Nonobstruc Disease Active Overview : Univers tive tive 6-26 Formattin ity of atheroscle atheroscle 00:00: g of this [place] rosis of rosis of 00 note Medica l coronary coronary might be Bran ch artery artery different from the original. Added automatic ally from request for surgery [id number] Essential Essential Disease Active Uni vers hypertensi hypertensi 6-20 it y of on on 00:00: [place] [address] Medical Branch Obesity Obesity Disease Active Univers (BMI (BMI 5-09 ity of 30-39.9) 30-39.9) 00:00: [address] Branch ESRD (end ESRD (end Disease [facility]re [facility] stage stage nce 10[facility]02 [facility] renal renal 00:00: Medical disease) disease) 00 Center on on dialysis dialysis Type 2 Type [address] [facility] diabetes diabetes nce 10-02 [facility] mellitus mellitus 00:00: Medica l 00 Center Pre-transp Pre-transp Disease Active C [facility] lant lant 10-02 [facility] evaluation evaluation 00:00: [place] dical for for 00 Center chronic chronic kidney kidney disease disease Hypertensi Hypertensi Disease Active C [facility] ve renal ve renal 10-02 [facility] disease disease 00:00: Medical 00 Center Hypertensi Hypertensi Disease Active U nivers on on 03-17 ity of 00:00: [address] Branch Cataract Cataract Disease Active Overview: Un gregg 03-17 Formattin ity of 00:00: g of this [place] note Medical might be Branch different from the original. fixed bilateral ly DM DM Disease Active Univers (diabetes (diabetes 03-17 ity of mellitus) mellitus) [place] Nephropath Nephropath Disease Active U nivers y y ity of [facility] IBS IBS Disease Active Univers (irritable (irritable it y of bowel bowel [place] syndrome) syndrome) 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 [place] of renal of renal Medica l origin origin Branch Retinopath Retinopath Disease Active U nivers y y ity [facility] Allergies, Adverse Reactions, Alerts Allergy Allergy Status Severity Reaction(s) Onset Inactive Treating Comm ents Source Name Type Date Date Clinician No Known DA Active U [facility] - Clear Allergie 00:00: [place] s 00 [facility] Prometha Propensi Active [facility] zine ty to 6-29 [facility] adverse 00:00: Medical reaction 00 Center s PROMETHA DRUG Active Low Anxiety Univers ZINE HCL INGREDI 10-08 ity of 00:00: [place] 00 Medical Branch Prometha Propensi Active Anxiety "jumpy" Univ ers zine Hcl ty to 10-08 ity of adverse 00:00: [place] reaction 00 [facility] s Branch prometha DA Active PR AGITATION [facility] zine HCl 5-02 Clear 00:00: [place] 00 [facility] ondanset DA Active U PT STATED HE HC A tyler HCl IS 5-02 Clear GETTING,RASH 00:00: [place] .AND N/V.HE Regio na TAKES l BENADRYL. Medical Center Social History Social Habit Start Date Stop Date Quantity Comments Source History SDMO University o f Alcohol Frequency [facility] edical Branch History [facility] University o f Alcohol Std Drinks [facility] History [facility] o f Alcohol Binge [facility] [place] [facility] [place] Gender identity Universit y of [facility] Sexual orientation Univer sit of [facility] Alcohol intake 2022-11-12 2022-11-12 Ex-drinker University 00:00:00 00:00:00 (finding) [facility] Exposure to 2022-07-28 2022-08-07 Not sure [facility] SARS-CoV-2 (event) 00:00:00 07:53:00 [facility] History of Social 2022-04-11 2022-04-11 Univers ity of function 00:00:00 00:00:00 [facility] Tobacco use and 2021-12-19 2021-12-19 Smokeless Universit y of exposure 00:00:00 00:00:00 tobacco non-user [facility] Alcohol Comment 2016-10-08 2016-10-08 quit 4-5 years Unive rsity of 00:00:00 00:00:00 ago [facility] Sex Assigned At [address] [facility] 00:00:00 00:00:00 [facility] Center Smoking Status Start Date Stop Date Source Never smoked tobacco [facility] Medications Ordered Filled Start Stop Current Ordering Indication Dosage Frequency Signature Comments Components Source Medication Medication Date Date Medication? Clinician (SIG) Name Name telmisartan 2022-03 Yes 80mg Take 1 Univ ers 80 mg 0-31 tablet by ity of tablet 10:23: mouth in [place] [address] the Medical morning. Branch telmisartan 2022-03 Yes 80mg Take 1 Univ ers 80 mg 0-31 tablet by ity of tablet 10:23: mouth in [place] [address] the Medical morning. Branch telmisartan 2022-03 Yes 80mg Take 1 Univ ers 80 mg 0-31 tablet by ity of tablet 10:23: mouth in [place] 29 the Medical morning. Branch telmisartan 2022-03 Yes 80mg Take 1 Univ ers 80 mg 0-31 tablet by ity of tablet 10:23: mouth in [place] 29 the Medical morning. Branch aspirin 81 2022-03 Yes 81mg Take 1 Unive rs mg EC 0-31 tablet by ity of tablet 10:22: mouth in [place] [address] the Medical morning. Branch aspirin 81 2022-03 Yes 81mg Take 1 Unive rs mg EC 0-31 tablet by ity of tablet 10:22: mouth in [place] [address] the Medical morning. Branch aspirin 81 2022-03 Yes 81mg Take 1 Unive rs mg EC 0-31 tablet by ity of tablet 10:22: mouth in [place] [address] the Medical morning. Branch aspirin 81 2022-03 Yes 81mg Take 1 Unive rs mg EC 0-31 tablet by ity of tablet 10:22: mouth in [place] [address] the Medical morning. Branch hydrALAZINE 2022-03 Yes 10mg Take 1 Univ ers 10 mg 0-31 tablet by ity of tablet 10:13: mouth as [place] 55 needed for Medical BP and/or Branch HR Goals determined by provider. hydrALAZINE 2022-03 Yes 10mg Take 1 Univ ers 10 mg 0-31 tablet by ity of tablet 10:13: mouth as [place] 55 needed for Medical BP and/or Branch HR Goals determined by provider. hydrALAZINE 2022-03 Yes 10mg Take 1 Univ ers 10 mg 0-31 tablet by ity of tablet 10:13: mouth as [place] 55 needed for Medical BP and/or Branch HR Goals determined by provider. hydrALAZINE 2022-03 Yes 10mg Take 1 Univ ers 10 mg 0-31 tablet by ity of tablet 10:13: mouth as [place] 55 needed for Medical BP and/or Branch HR Goals determined by provider. atenoloL 25 2022-03 Yes 25mg Take 1 Univ ers mg tablet 0-31 tablet by ity o f 10:13: mouth in [place] [address] the Medical morning. Branch atenoloL 2022-03 Yes 25mg Take 1 Univ ers mg tablet 0-31 tablet by ity o f 10:13: mouth in [place] [address] the Medical morning. Branch atenoloL 2022-03 Yes 25mg Take 1 Univ ers mg tablet 0-31 tablet by ity o f 10:13: mouth in [place] [address] the Medical morning. Branch atenoloL 2022-03 Yes 25mg Take 1 Univ ers mg tablet 0-31 tablet by ity o f 10:13: mouth in [place] [address] the Medical morning. Branch evolocumab 2022-03 Yes [id number] 140mg inject 1 Univers (REPATHA 0-31 mL under ity of SURECLICK) 00:00: the skin [place] 140 mg/mL 00 every 2 Medical PnIj (two) Branch weeks. evolocumab 2022-03 Yes [id number] 140mg inject 1 Univers (REPATHA 0-31 mL under ity of SURECLICK) 00:00: the skin [place] 140 mg/mL 00 every 2 Medical PnIj (two) Branch weeks. evolocumab 2022-03 Yes [id number] 140mg inject 1 Univers (REPATHA 0-31 mL under ity of SURECLICK) 00:00: the skin [place] 140 mg/mL 00 every 2 Medical PnIj (two) Branch weeks. evolocumab 2022-03 Yes [id number] 140mg inject 1 Univers (REPATHA 0-31 mL under ity of SURECLICK) 00:00: the skin [place] 140 mg/mL 00 every 2 Medical PnIj (two) Branch weeks. atenoloL Yes 25mg Take 1 Univ ers mg tablet 8-29 tablet by ity o f 11:13: mouth in [place] [address] the Medical morning. Branch atenoloL Yes 25mg Take 1 Univ ers mg tablet 8-29 tablet by ity o f 11:13: mouth in [place] [address] the Medical morning. Branch atenoloL Yes 25mg Take 1 Univ ers mg tablet 8-29 tablet by ity o f 11:13: mouth in [place] [address] the Medical morning. Branch atenoloL 25 2022-0 Yes 25mg Take 1 Univ ers mg tablet 8-29 tablet by ity o f 11:13: mouth in [place] [address] the Medical morning. Branch atenoloL 25 2022-0 Yes 25mg Take 1 Univ ers mg tablet 8-29 tablet by ity o f 11:13: mouth in [place] [address] the Medical morning. Branch ticagrelor 3-0 Yes [id number] 90mg Take 1 U nivers 90 mg 8-29 tablet by ity of tablet 00:00: mouth in [place] the Medical morning Branch and 1 tablet in the evening. ezetimibe 2023-0 Yes [id number] 10mg Take 1 Un gregg 10 mg 8-29 tablet by ity of tablet 00:00: mouth in [place] the Medical morning. Branch ticagrelor 3-0 Yes [id number] 90mg Take 1 U nivers 90 mg 8-29 tablet by ity of tablet 00:00: mouth in [place] the Medical morning Branch and 1 tablet in the evening. ezetimibe 2023-0 Yes [id number] 10mg Take 1 Un gregg 10 mg 8-29 tablet by ity of tablet 00:00: mouth in [place] the Medical morning. Branch ticagrelor 3-0 Yes [id number] 90mg Take 1 U nivers 90 mg 8-29 tablet by ity of tablet 00:00: mouth in [place] the Medical morning Branch and 1 tablet in the evening. ezetimibe 2023-0 Yes [id number] 10mg Take 1 Un gregg 10 mg 8-29 tablet by ity of tablet 00:00: mouth in [place] the Medical morning. Branch ticagrelor 3-0 Yes [id number] 90mg Take 1 U nivers 90 mg 8-29 tablet by ity of tablet 00:00: mouth in [place] the Medical morning Branch and 1 tablet in the evening. ezetimibe 2023-0 Yes [id number] 10mg Take 1 Un gregg 10 mg 8-29 tablet by ity of tablet 00:00: mouth in [place] the Medical morning. Branch ticagrelor 2023-0 Yes [id number] 90mg Take 1 U nivers 90 mg 8-29 tablet by ity of tablet 00:00: mouth in [place] 00 the Medical morning Branch and 1 tablet in the evening. ezetimibe 2023-0 Yes [id number] 10mg Take 1 Un gregg 10 mg 8-29 tablet by ity of tablet 00:00: mouth in [place] the Medical morning. Branch ticagrelor 2023-0 Yes [id number] 90mg Take 1 U nivers 90 mg 8-29 tablet by ity of tablet 00:00: mouth in [place] the Medical morning Branch and 1 tablet in the evening. ezetimibe 2023-0 Yes [id number] 10mg Take 1 Un gregg 10 mg 8-29 tablet by ity of tablet 00:00: mouth in [place] 00 the Medical morning. Branch ticagrelor 3-0 Yes [id number] 90mg Take 1 U nivers 90 mg 8-29 tablet by ity of tablet 00:00: mouth in [place] the Medical morning Branch and 1 tablet in the evening. ezetimibe 3-0 Yes [id number] 10mg Take 1 Un gregg 10 mg 8-29 tablet by ity of tablet 00:00: mouth in [place] the Medical morning. Branch ticagrelor 3-0 Yes [id number] 90mg Take 1 U nivers 90 mg 8-29 tablet by ity of tablet 00:00: mouth in [place] the Medical morning Branch and 1 tablet in the evening. ezetimibe 3-0 Yes [id number] 10mg Take 1 Un gregg 10 mg 8-29 tablet by ity of tablet 00:00: mouth in [place] the Medical morning. Branch ticagrelor 3-0 Yes [id number] 90mg Take 1 U nivers 90 mg 8-29 tablet by ity of tablet 00:00: mouth in [place] the Medical morning Branch and 1 tablet in the evening. ezetimibe 3-0 Yes [id number] 10mg Take 1 Un gregg 10 mg 8-29 tablet by ity of tablet 00:00: mouth in [place] the Medical morning. Branch aspirin 81 2022-0 2022- Yes [id number] 81mg Take 1 Univers mg chewable 8-18 -18 tablet by it y of tablet 00:00: 04:59 mouth in [place] 00 :00 the Medical morning Branch for 30 days. NIFEdipine 3-0 2022- Yes [id number] 90mg Take 1 Univers ER 90 mg 8-18 -18 tablet by ity o f tablet 00:00: 04:59 mouth in [place] 00 :00 the Medical morning Branch for 30 days. losartan 50 2022-0 2022- Yes [id number] 50mg Take 1 Univers mg tablet 8-18 -18 tablet by ity of 00:00: 04:59 mouth in [place] 00 :00 the Medical morning Branch for 30 days. aspirin 81 2022-0 2022- Yes [id number] 81mg Take 1 Univers mg chewable 8-18 -18 tablet by it y of tablet 00:00: 04:59 mouth in [place] 00 :00 the Medical morning Branch for 30 days. NIFEdipine 2022-0 2022- Yes [id number] 90mg Take 1 Univers ER 90 mg 8-02 12-18 tablet by ity o f tablet 00:00: 04:59 mouth in [place] 00 :00 the Medical morning Branch for 30 days. losartan 50 2022-0 2022- Yes [id number] 50mg Take 1 Univers mg tablet 8-18 tablet by ity of 00:00: 04:59 mouth in [place] 00 :00 the Medical morning Branch for 30 days. aspirin 81 2022-0 2022- Yes [id number] 81mg Take 1 Univers mg chewable 8-02 12-18 tablet by it y of tablet 00:00: 04:59 mouth in [place] 00 :00 the Medical morning Branch for 30 days. NIFEdipine 2022-0 2022- Yes [id number] 90mg Take 1 Univers ER 90 mg 8-02 12-18 tablet by ity o f tablet 00:00: 04:59 mouth in [place] 00 :00 the Medical morning Branch for 30 days. losartan 50 2022-0 2022- Yes [id number] 50mg Take 1 Univers mg tablet 8-18 -18 tablet by ity of 00:00: 04:59 mouth in [place] 00 :00 the Medical morning Branch for 30 days. aspirin 81 2022-0 2022- Yes [id number] 81mg Take 1 Univers mg chewable 8-18 -18 tablet by it y of tablet 00:00: 04:59 mouth in [place] 00 :00 the Medical morning Branch for 30 days. NIFEdipine 2022-0 2022- Yes [id number] 90mg Take 1 Univers ER 90 mg 8-18 -18 tablet by ity o f tablet 00:00: 04:59 mouth in [place] 00 :00 the [facility] morning Branch for 30 days. losartan 50 2023-0 2023- Yes [id number] 50mg Take 1 Univers mg tablet 8-18 09-18 tablet by ity of 00:00: 04:59 mouth in [place] 00 :00 the [facility] morning Branch for 30 days. ALPRAZolam 2022-0 Yes .25mg Take 1 Univ ers 0.25 mg 8-17 tablet by ity of tablet 17:30: mouth in [place] [address] the [facility] morning Branch and 1 tablet in the evening. Insulin 3-0 Yes 20U inject 20 Unive rs Lispro, 8-17 Units ity of Human, 100 17:30: under the [place] unit/mL 29 skin in Medical cartridge the Branch morning and 20 Units in the evening. Insulin 2022-0 Yes 25U inject 25 Unive rs Glargine 8-17 Units ity of 100 unit/mL 17:30: under the [place] (3 mL) 29 skin. Medical injection Branch sevelamer 2022-0 Yes 800mg Take 1 Unive rs 800 mg 8-17 tablet by ity of tablet 17:30: mouth in [place] [address] the [facility] and 1 tablet at noon and 1 tablet in the evening. Take with meals. hydrALAZINE 2022-0 Yes 10mg Take 1 Univ ers 10 mg 8-17 tablet by ity of tablet 17:30: mouth as [place] [address] needed for Medical BP and/or Branch HR Goals determined by provider. atenoloL 25 2022-0 Yes 25mg Take 1 Univ ers mg tablet 8-17 tablet by ity o f 17:30: mouth in [place] [address] the Medical morning. Branch ALPRAZolam 2022-0 Yes .25mg Take 1 Univ ers 0.25 mg 8-17 tablet by ity of tablet 17:30: mouth in [place] [address] the [facility] morning Branch and 1 tablet in the evening. Insulin 2023-0 Yes 20U inject 20 Unive rs Lispro, 8-17 Units ity of Human, 100 17:30: under the [place] unit/mL 29 skin in Medical cartridge the Branch morning and 20 Units in the evening. Insulin 2023-0 Yes 25U inject 25 Unive rs Glargine 8-17 Units ity of 100 unit/mL 17:30: under the [place] (3 mL) 29 skin. Medical injection Branch sevelamer 2023-0 Yes 800mg Take 1 Unive rs 800 mg 8-17 tablet by ity of tablet 17:30: mouth in [place] [address] the Medical morning Branch and 1 tablet at noon and 1 tablet in the evening. Take with meals. hydrALAZINE 3-0 Yes 10mg Take 1 Univ ers 10 mg 8-17 tablet by ity of tablet 17:30: mouth as [place] [address] needed for Medical BP and/or Branch HR Goals determined by provider. atenoloL 25 3-0 Yes 25mg Take 1 Univ ers mg tablet 8-17 tablet by ity o f 17:30: mouth in [place] [address] the Medical morning. Branch ALPRAZolam 2022-0 Yes .25mg Take 1 Univ ers 0.25 mg 8-17 tablet by ity of tablet 17:30: mouth in [place] [address] the Medical morning Branch and 1 tablet in the evening. Insulin 2022-0 Yes 20U inject 20 Unive rs Lispro, 8-17 Units ity of Human, 100 17:30: under the [place] unit/mL 29 skin in Medical cartridge the Branch morning and 20 Units in the evening. Insulin 3-0 Yes 25U inject 25 Unive rs Glargine 8-17 Units ity of 100 unit/mL 17:30: under the [place] (3 mL) 29 skin. Medical injection Branch sevelamer 3-0 Yes 800mg Take 1 Unive rs 800 mg 8-17 tablet by ity of tablet 17:30: mouth in [place] [address] the Medical morning Branch and 1 tablet at noon and 1 tablet in the evening. Take with meals. hydrALAZINE 3-0 Yes 10mg Take 1 Univ ers 10 mg 8-17 tablet by ity of tablet 17:30: mouth as [place] [address] needed for Medical BP and/or Branch HR Goals determined by provider. ALPRAZolam 2023-0 Yes .25mg Take 1 Univ ers 0.25 mg 8-17 tablet by ity of tablet 17:30: mouth in [place] [address] the Medical morning Branch and 1 tablet in the evening. Insulin 2023-0 Yes 20U inject 20 Unive rs Lispro, 8-17 Units ity of Human, 100 17:30: under the [place] unit/mL 29 skin in Medical cartridge the Branch morning and 20 Units in the evening. Insulin 2023-0 Yes 25U inject 25 Unive rs Glargine 8-17 Units ity of 100 unit/mL 17:30: under the [place] (3 mL) 29 skin. Medical injection Branch sevelamer 2023-0 Yes 800mg Take 1 Unive rs 800 mg 8-17 tablet by ity of tablet 17:30: mouth in [place] [address] the Medical morning Branch and 1 tablet at noon and 1 tablet in the evening. Take with meals. hydrALAZINE 2023-0 Yes 10mg Take 1 Univ ers 10 mg 8-17 tablet by ity of tablet 17:30: mouth as [place] [address] needed for Medical BP and/or Branch HR Goals determined by provider. ALPRAZolam 2023-0 Yes .25mg Take 1 Univ ers 0.25 mg 8-17 tablet by ity of tablet 17:30: mouth in [place] [address] the Medical morning Branch and 1 tablet in the evening. Insulin 2023-0 Yes 20U inject 20 Unive rs Lispro, 8-17 Units ity of Human, 100 17:30: under the [place] unit/mL 29 skin in Medical cartridge the Branch morning and 20 Units in the evening. Insulin 2023-0 Yes 25U inject 25 Unive rs Glargine 8-17 Units ity of 100 unit/mL 17:30: under the [place] (3 mL) 29 skin. Medical injection Branch sevelamer 2023-0 Yes 800mg Take 1 Unive rs 800 mg 8-17 tablet by ity of tablet 17:30: mouth in [place] [address] the Medical morning Branch and 1 tablet at noon and 1 tablet in the evening. Take with meals. hydrALAZINE 2023-0 Yes 10mg Take 1 Univ ers 10 mg 8-17 tablet by ity of tablet 17:30: mouth as [place] [address] needed for Medical BP and/or Branch HR Goals determined by provider. ALPRAZolam 2023-0 Yes .25mg Take 1 Univ ers 0.25 mg 8-17 tablet by ity of tablet 17:30: mouth in [place] [address] the Medical morning Branch and 1 tablet in the evening. Insulin 2023-0 Yes 20U inject 20 Unive rs Lispro, 8-17 Units ity of Human, 100 17:30: under the [place] unit/mL 29 skin in Medical cartridge the Branch morning and 20 Units in the evening. Insulin 2023-0 Yes 25U inject 25 Unive rs Glargine 8-17 Units ity of 100 unit/mL 17:30: under the [place] (3 mL) 29 skin. Medical injection Branch sevelamer 2023-0 Yes 800mg Take 1 Unive rs 800 mg 8-17 tablet by ity of tablet 17:30: mouth in [place] [address] the Medical morning Branch and 1 tablet at noon and 1 tablet in the evening. Take with meals. hydrALAZINE 2023-0 Yes 10mg Take 1 Univ ers 10 mg 8-17 tablet by ity of tablet 17:30: mouth as [place] [address] needed for Medical BP and/or Branch HR Goals determined by provider. ALPRAZolam 2023-0 Yes .25mg Take 1 Univ ers 0.25 mg 8-17 tablet by ity of tablet 17:30: mouth in [place] [address] the Medical morning Branch and 1 tablet in the evening. Insulin 2022-0 Yes 20U inject 20 Unive rs Lispro, 8-17 Units ity of Human, 100 17:30: under the [place] unit/mL 29 skin in Medical cartridge the Branch morning and 20 Units in the evening. Insulin 2023-0 Yes 25U inject 25 Unive rs Glargine 8-17 Units ity of 100 unit/mL 17:30: under the [place] (3 mL) 29 skin. Medical injection Branch sevelamer 2022-0 Yes 800mg Take 1 Unive rs 800 mg 8-17 tablet by ity of tablet 17:30: mouth in [place] [address] the Medical morning Branch and 1 tablet at noon and 1 tablet in the evening. Take with meals. hydrALAZINE 3-0 Yes 10mg Take 1 Univ ers 10 mg 8-17 tablet by ity of tablet 17:30: mouth as [place] [address] needed for Medical BP and/or Branch HR Goals determined by provider. ALPRAZolam 2023-0 Yes .25mg Take 1 Univ ers 0.25 mg 8-17 tablet by ity of tablet 17:30: mouth in [place] [address] the Medical morning Branch and 1 tablet in the evening. Insulin 2023-0 Yes 20U inject 20 Unive rs Lispro, 8-17 Units ity of Human, 100 17:30: under the [place] unit/mL 29 skin in Medical cartridge the Branch morning and 20 Units in the evening. Insulin 2023-0 Yes 25U inject 25 Unive rs Glargine 8-17 Units ity of 100 unit/mL 17:30: under the [place] (3 mL) 29 skin. Medical injection Branch sevelamer 2023-0 Yes 800mg Take 1 Unive rs 800 mg 8-17 tablet by ity of tablet 17:30: mouth in [place] [address] the Medical morning Branch and 1 tablet at noon and 1 tablet in the evening. Take with meals. ALPRAZolam 2023-0 Yes .25mg Take 1 Univ ers 0.25 mg 8-17 tablet by ity of tablet 17:30: mouth in [place] [address] the Medical morning Branch and 1 tablet in the evening. Insulin 2023-0 Yes 20U inject 20 Unive rs Lispro, 8-17 Units ity of Human, 100 17:30: under the [place] unit/mL 29 skin in Medical cartridge the Branch morning and 20 Units in the evening. Insulin 2023-0 Yes 25U inject 25 Unive rs Glargine 8-17 Units ity of 100 unit/mL 17:30: under the [place] (3 mL) 29 skin. Medical injection Branch sevelamer 2023-0 Yes 800mg Take 1 Unive rs 800 mg 8-17 tablet by ity of tablet 17:30: mouth in [place] [address] the Medical morning Branch and 1 tablet at noon and 1 tablet in the evening. Take with meals. ALPRAZolam 2023-0 Yes .25mg Take 1 Univ ers 0.25 mg 8-17 tablet by ity of tablet 17:30: mouth in [place] [address] the [facility] morning Branch and 1 tablet in the evening. Insulin 2023-0 Yes 20U inject 20 Unive rs Lispro, 8-17 Units ity of Human, 100 17:30: under the [place] unit/mL 29 skin in Medical cartridge the Branch morning and 20 Units in the evening. Insulin 2023-0 Yes 25U inject 25 Unive rs Glargine 8-17 Units ity of 100 unit/mL 17:30: under the [place] (3 mL) 29 skin. Medical injection Branch sevelamer 2023-0 Yes 800mg Take 1 Unive rs 800 mg 8-17 tablet by ity of tablet 17:30: mouth in [place] [address] the [facility] morning Branch and 1 tablet at noon and 1 tablet in the evening. Take with meals. ALPRAZolam 0 Yes .25mg Take 1 Univ ers 0.25 mg 8-17 tablet by ity of tablet 17:30: mouth in [place] [address] the [facility] morning Branch and 1 tablet in the evening. Insulin 2022-0 Yes 20U inject 20 Unive rs Lispro, 8-17 Units ity of Human, 100 17:30: under the [place] unit/mL 29 skin in Medical cartridge the [place] morning and 20 Units in the evening. Insulin 2022-0 Yes 25U inject 25 Unive rs Glargine 8-17 Units ity of 100 unit/mL 17:30: under the [place] (3 mL) 29 skin. Medical injection Branch sevelamer 0 Yes 800mg Take 1 Unive rs 800 mg 8-17 tablet by ity of tablet 17:30: mouth in [place] [address] the [facility] morning Branch and 1 tablet at noon and 1 tablet in the evening. Take with meals. aspirin 81 2022-0 3- No 81mg Take 1 Univ ers mg EC 8-17 08-17 tablet by ity of tablet 15:13: 00:00 mouth in [place] 29 :00 the Medical morning. Branch telmisartan 2022-0 3- No 40mg Take 1 Uni vers 40 mg 8-17 08-17 tablet by ity of tablet 15:13: 00:00 mouth in [place] 29 :00 the Medical morning. Branch ticagrelor 2022-0 Yes [id number] 90mg 90 mg, U nivers (BRILINTA) 8-17 Oral, BID, ity of tablet 90 01:00: First dose [place] mg 00 on [facility] 10/30/22 at [place] 1999, Until Discontinu ed, Routine ticagrelor 2022-0 Yes [id number] 90mg 90 mg, U nivers (BRILINTA) 8-17 Oral, BID, ity of tablet 90 01:00: First dose [place] mg 00 on [facility] 10/30/22 at [place] 1999, Until Discontinu ed, Routine atorvastati 2022-0 Yes [id number] 80mg Take 1 Univers n 80 mg 8-17 tablet by ity of tablet 00:00: mouth at [place] [address] bedtime. [facility] atorvastati 2022-0 Yes [id number] 80mg Take 1 Univers n 80 mg 8-17 tablet by ity of tablet 00:00: mouth at [place] 00 bedtime. Medical Branch atorvastati 2022-0 Yes [id number] 80mg Take 1 Univers n 80 mg 8-17 tablet by ity of tablet 00:00: mouth at [place] 00 bedtime. Medical Branch atorvastati 2022-0 Yes [id number] 80mg Take 1 Univers n 80 mg 8-17 tablet by ity of tablet 00:00: mouth at [place] 00 bedtime. Medical Branch atorvastati 2022-0 Yes [id number] 80mg Take 1 Univers n 80 mg 8-17 tablet by ity of tablet 00:00: mouth at [place] 00 bedtime. Medical Branch atorvastati 2022-0 Yes [id number] 80mg Take 1 Univers n 80 mg 8-17 tablet by ity of tablet 00:00: mouth at [place] 00 bedtime. Medical Branch atorvastati 2022-0 Yes [id number] 80mg Take 1 Univers n 80 mg 8-17 tablet by ity of tablet 00:00: mouth at [place] 00 bedtime. Medical Branch atorvastati 0 Yes [id number] 80mg Take 1 Univers n 80 mg 8-17 tablet by ity of tablet 00:00: mouth at [place] 00 bedtime. Medical Branch atorvastati 0 Yes [id number] 80mg Take 1 Univers n 80 mg 8-17 tablet by ity of tablet 00:00: mouth at [place] 00 bedtime. Medical Branch atorvastati 2022-0 Yes [id number] 80mg Take 1 Univers n 80 mg 8-17 tablet by ity of tablet 00:00: mouth at [place] 00 bedtime. Medical Branch atorvastati 2022-0 Yes [id number] 80mg Take 1 Univers n 80 mg 8-17 tablet by ity of tablet 00:00: mouth at [place] 00 bedtime. Medical Branch ticagrelor 2022-0 2022- Yes [id number] 90mg Take 1 Univers 90 mg 8-17 - tablet by ity of tablet 00:00: 04:59 mouth in [place] 00 :00 the Medical morning Branch and 1 tablet in the evening. Do all this for 30 days. ticagrelor 2022-0 2022- Yes [id number] 90mg Take 1 Univers 90 mg 8-17 -17 tablet by ity of tablet 00:00: 04:59 mouth in [place] 00 :00 the [facility] morning Branch and 1 tablet in the evening. Do all this for 30 days. ticagrelor 2022- No [id number] 90mg Take 1 Univers 90 mg 10-31 tablet by ity of tablet 00:00: 00:00 mouth in [place] 00 :00 the [facility] Branch and 1 tablet in the evening. Do all this for 30 days. ticagrelor 2022-0 2022- No [id number] 90mg Take 1 Univers 90 mg 10-31 tablet by ity of tablet 00:00: 00:00 mouth in [place] 00 :00 the [facility] Branch and 1 tablet in the evening. Do all this for 30 days. ticagrelor 2022- No ONCE INTRA Univers (BRILINTA) 10-30 PROCEDURE, it y of tablet 17:44: 17:46 Starting [place] 41 :16 on Fri Medical 10/30/22 at Branch 1244, Until Fri10/30/22 at 1246, Routine, CV Intraproce dure iopamidol 2022- No ONCE INTRA U nivers (ISOVUE 10-30 PROCEDURE, ity o f 370-500 mL) 17:39: 17:46 Starting [place] injection 13 :16 on Fri Medical 10/30/22 at Branch 1239, Until Fri10/30/22 at 1246, Routine, CV Intraproce dure nitroglycer 2022- No ONCE INTRA Univers in (TRIDIL) 10-30 PROCEDURE, i ty of 2 mg in 10 17:35: 17:46 Starting [place] mL D5W for 34 :16 on Fri Medical Cardiac 10/30/22 at Branch Cath 1235, Until Fri10/30/22 at 1246, Routine, CV Intraproce dure heparin 2022- No ONCE INTRA Uni vers 1,000 10-30 PROCEDURE, ity of unit/mL 16:12: 17:46 Starting [place] injection 23 :16 on Fri Medical 10/30/22 at Branch 1112, Until Fri10/30/22 at 1246, Routine, CV Intraproce dure lidocaine 2022- No ONCE INTRA U nivers 1% (PF) 10-30 PROCEDURE, ity o f (XYLOCAINE) 15:48: 17:46 Starting [place] injection 32 :16 on Fri [facility] 10/30/22 at Branch 1048, Until Fri10/30/22 at 1246, Routine, CV Intraproce dure midazolam 2022-0 2022- No ONCE INTRA U nivers (VERSED) 10-30 PROCEDURE, ity of injection 15:48: 17:46 Starting [place] 12 :16 on Fri [facility] 10/30/22 at Branch 1048, Until Fri10/30/22 at 1246, Routine, CV Intraproce dure FENTanyl PF 2022-0 2022- No ONCE INTRA Univers (SUBLIMAZE 10-30 PROCEDURE, it y of (PF)) 15:47: 17:46 Starting [place] injection 59 :16 on Fri [facility] 10/30/22 at Branch 1047, Until Fri10/30/22 at 1246, Routine, CV Intraproce dure losartan 0 Yes 50mg 50 mg, Univers (COZAAR) 10-30 Oral, ity of tablet 50 14:00: DAILY, [place] mg 00 First dose Medical on Fri [place] 10/30/22 at 0900, Until Discontinu ed NIFEdipine 0 Yes 90mg 90 mg, Unive rs ER tablet 10-30 Oral, ity of 90 mg 14:00: DAILY, [place] 00 First dose Medical on Fri [place] 10/30/22 at 0900, Until Discontinu ed, Routine atenoloL 2022-0 Yes 25mg 25 mg, Univers (TENORMIN) 10-30 Oral, ity of tablet 25 14:00: DAILY, [place] mg 00 First dose Medical on [facility] 10/30/22 at 0900, Until Discontinu ed, Routine pantoprazol 2022-0 Yes 40mg 40 mg, Univ ers e 816 Oral, ity of (PROTONIX) 14:00: DAILY, [place] EC tablet 00 First dose Medi siva 40 mg on [facility] 10/30/22 at 0900, Until Discontinu ed, Routine aspirin 2022-0 Yes 81mg 81 mg, Univers chewable 10-30 Oral, ity of tablet 81 14:00: DAILY, [place] mg 00 First dose Medical on [facility] 10/30/22 at 0900, Until Discontinu ed, Routine losartan 0 Yes 50mg 50 mg, Univers (COZAAR) 8-16 Oral, ity of tablet 50 14:00: DAILY, [place] mg 00 First dose Medical on Fri [place] 10/30/22 at 0900, Until Discontinu ed NIFEdipine 0 Yes 90mg 90 mg, Unive rs ER tablet 16 Oral, ity of 90 mg 14:00: DAILY, [place] 00 First dose Medical on Fri [place] 10/30/22 at 0900, Until Discontinu ed, Routine atenoloL 0 Yes 25mg 25 mg, Univers (TENORMIN) 816 Oral, ity of tablet 25 14:00: DAILY, [place] mg 00 First dose Medical on Fri [place] 10/30/22 at 0900, Until Discontinu ed, Routine pantoprazol 0 Yes 40mg 40 mg, Univ ers e 8-16 Oral, ity of (PROTONIX) 14:00: DAILY, [place] EC tablet 00 First dose Medi siva 40 mg on Fri [place] 10/30/22 at 0900, Until Discontinu ed, Routine aspirin 0 Yes 81mg 81 mg, Univers chewable 16 Oral, ity of tablet 81 14:00: DAILY, [place] mg 00 First dose Medical on Fri [place] 10/30/22 at 0900, Until Discontinu ed, Routine clopidogreL 2022-0 2022- No 75mg 75 mg, Uni vers (PLAVIX) 75 16 -16 Oral, ity of mg tablet 14:00: 18:33 DAILY, [place] 75 mg 00 :02 First dose Medical on Fri [place] 10/30/22 at 0900, Until Discontinu ed, Routine sevelamer 2022-0 Yes 800mg 800 mg, Univ ers (RENVELA) 8-16 Oral, TID ity o f tablet 800 13:00: MEALS, [place] mg 00 First dose Medical on Fri [place] 10/30/22 at 0800, Until Discontinu ed, Routine sevelamer 2022-0 Yes 800mg 800 mg, Univ ers (RENVELA) 8-16 Oral, TID ity o f tablet 800 13:00: MEALS, [place] mg 00 First dose Medical on Fri [place] 10/30/22 at 0800, Until Discontinu ed, Routine insulin 2023-0 Yes 20U 20 Units, Unive rs lispro 8-16 Subcutaneo ity of (human) 12:30: us, TIDACPauliea s (HumaLOG 00 First dose Medic al U-100) on Fri Branch injection 10/30/22 at 20 Units 0730, Until Discontinu ed insulin 2022-0 Yes 20U 20 Units, Unive rs lispro 8-16 Subcutaneo ity of (human) 12:30: us, TIDAC, [place] (HumaLOG 00 First dose Medic al U-100) on Fri Branch injection 10/30/22 at 20 Units 0730, Until Discontinu ed atorvastati 3-0 Yes 80mg 80 mg, Univ ers n (LIPITOR) 8-16 Oral, QHS, it y of tablet 80 06:45: First dose [place] mg 00 on Fri Medical 10/30/22 at Branch 0145, Until Discontinu ed, Routine atorvastati 2022-0 Yes 80mg 80 mg, Univ ers n (LIPITOR) 8-16 Oral, QHS, it y of tablet 80 06:45: First dose [place] mg 00 on Fri Medical 10/30/22 at Branch 0145, Until Discontinu ed, Routine tiZANidine 3-0 Yes 2mg 2 mg, Univer s (ZANAFLEX) 8-16 Oral, ity of tablet 2 mg 06:33: Q6HPRN, [place] 27 Starting Medical on Fri Branch 10/30/22 at 0133, Until Discontinu ed, Routine, Muscle Spasms tiZANidine 2023-0 Yes 2mg 2 mg, Univer s (ZANAFLEX) 8-16 Oral, ity of tablet 2 mg 06:33: Q6HPRN, [place] 27 Starting Medical on Fri Branch 10/30/22 at 0133, Until Discontinu ed, Routine, Muscle Spasms amitriptyli 2023-0 Yes 50mg 50 mg, Univ ers ne (ELAVIL) 8-16 Oral, ity of tablet 50 06:31: QHSPRN, [place] mg 57 Starting Medical on Fri Branch 10/30/22 at 0131, Until Discontinu ed, Routine, Insomnia amitriptyli 3-0 Yes 50mg 50 mg, Univ ers ne (ELAVIL) 8-16 Oral, ity of tablet 50 06:31: QHSPRN, [place] mg 57 Starting Medical on Fri10/30/22 at 0131, Until Discontinu ed, Routine, Insomnia ALPRAZolam Yes 1mg 1 mg, Univer s (XANAX) 10-30 Oral, ity of tablet 1 mg 06:31: QHSPRN, [place] 45 Starting Medical on Fri10/30/22 at 0131, Until Discontinu ed, Routine, Anxiety ALPRAZolam Yes 1mg 1 mg, Univer s (XANAX) 10-30 Oral, ity of tablet 1 mg 06:31: QHSPRN, [place] 45 Starting Medical on Fri10/30/22 at 0131, Until Discontinu ed, Routine, Anxiety proMETHazin Yes 12.5mg 12.5 mg, Univers e 10-30 IV ity of (PHENERGAN) 06:29: Piggyback, [place] 12.5 mg in 36 at 200 Medical NS 50 mL IV mL/hr Branch piggyback Administer (CNR) over 15 Minutes, Q4HPRN, Starting on Fri10/30/22 at 0129, Until Discontinu ed, Routine, Nausea and Vomiting (N/V), N/V unresponsi ve to Ondansetro n, N/V unresponsi ve to oral antiemetic s proMETHazin Yes 12.5mg 12.5 mg, Univers e 10-30 IV ity of (PHENERGAN) 06:29: Piggyback, [place] 12.5 mg in 36 at 200 Medical NS 50 mL IV mL/hr Branch piggyback Administer (CNR) over 15 Minutes, Q4HPRN, Starting on Fri10/30/22 at 0129, Until Discontinu ed, Routine, Nausea and Vomiting (N/V), N/V unresponsi ve to Ondansetro n, N/V unresponsi ve to oral antiemetic s Sliding Yes Subcutaneo Univ ers Scale 10-30 us, TID ity of Insulin - 02:30: MEALS+HS, [place] Lispro 00 First dose Medical (HumaLOG) on Fri10/29/22 at 2130, Until Discontinu ed, Routine Sliding Yes Subcutaneo Univ ers Scale 10-30 us, TID ity of Insulin - 02:30: MEALS+HS, [place] Lispro 00 First dose Medical (HumaLOG) on Fri [place] 10/29/22 at 2130, Until Discontinu ed, Routine glucagon Yes 1mg 1 mg, Univers (GLUCAGEN 10-30 Intramuscu ity of DIAGNOSTIC 02:24: lar, PRN, [place] KIT) 03 Starting Medical injection 1 on [facility] 10/29/22 at 2123, Until Discontinu ed, AKIL, Blood Glucose < or = 70 mg/dL and patient is NPO, unable to swallow or has mental changes. dextrose 50 0 Yes 25mL 25 mL, Univ ers % in water 10-30 Slow IV ity of (D50W) 02:24: Push, PRN, [place] injection 03 Starting Medica l 25 mL on Fri [place] 10/29/22 at 2123, Until Discontinu ed, AKIL, Blood Glucose < or = 70 mg/dL and patient is NPO, unable to swallow or has mental status changes. glucagon Yes 1mg 1 mg, Univers (GLUCAGEN 10-30 Intramuscu ity of DIAGNOSTIC 02:24: lar, PRN, [place] KIT) 03 Starting Medical injection 1 on [facility] 10/29/22 at 2123, Until Discontinu ed, AKIL, Blood Glucose < or = 70 mg/dL and patient is NPO, unable to swallow or has mental changes. dextrose 50 0 Yes 25mL 25 mL, Univ ers % in water 10-30 Slow IV ity of (D50W) 02:24: Push, PRN, [place] injection 03 Starting Medica l 25 mL on [facility] 10/29/22 at 2123, Until Discontinu ed, AKIL, Blood Glucose < or = 70 mg/dL and patient is NPO, unable to swallow or has mental status changes. nitroglycer Yes .4mg 0.4 mg, Uni vers in 10-30 Sublingual ity of (NITROSTAT) 02:22: , Q5MIN [place] sublingual 44 PRN, Medical tablet 0.4 Starting Branc h mg on Fri10/29/22 at 2121, Until Discontinu ed, Routine, Chest pain nitroglycer 2022-0 Yes .4mg 0.4 mg, Uni vers in 10-30 Sublingual ity of (NITROSTAT) 02:22: , Q5MIN [place] sublingual 44 PRN, Medical tablet 0.4 Starting Branc h mg on Fri10/29/22 at 2121, Until Discontinu ed, Routine, Chest pain ondansetron 2022-0 Yes 4mg 4 mg, Slow Univers (ZOFRAN 8-16 IV Push, ity of (PF)) 02:22: Q6HPRN, [place] injection 4 14 Starting Medi siva mg on [facility] 10/29/22 at 2121, Until Discontinu ed, Routine, Nausea and Vomiting (N/V) ondansetron 2022-0 Yes 4mg 4 mg, Slow Univers (ZOFRAN 8-16 IV Push, ity of (PF)) 02:22: Q6HPRN, [place] injection 4 14 Starting Medi siva mg on [facility] 10/29/22 at 2121, Until Discontinu ed, Routine, Nausea and Vomiting (N/V) morpHINE (4 2022-0 2022- Yes 4mg 4 mg, Slow Univers mg/mL) 10-30 IV Push, ity of injection 4 02:22: 02:21 Q4HPRN, [place] mg 13 :13 Starting Medical on Fri10/29/22 at 2121, Until Fri10/30/22 at 2120, Routine, Pain (scale 7-10) acetaminoph 2022-0 2022- Yes 1{tbl} 1 tablet, Univers en-codeine 10-30 Oral, ity of (TYLENOL 02:22: [facility] [place] [facility] 300-30 11 :11 Starting Medic al mg tablet 1 on [facility] tablet 10/29/22 at 2121, Until [place] 10/31/22 at 2120, Routine, Pain (scale 4-6) acetaminoph 2022-0 2022- Yes 1{tbl} 1 tablet, Univers en-codeine 10-30 Oral, ity of (TYLENOL 02:22: [facility] [place] [facility] 300-30 11 :11 Starting Medic al mg tablet 1 on [facility] tablet 10/29/22 at 2121, Until [place] 10/31/22 at 2120, Routine, Pain (scale 4-6) acetaminoph 3-0 Yes 650mg 650 mg, Un gregg en 8-16 Oral, ity of (TYLENOL) 02:22: [address] [place] [address] tablet 650 10 Starting Medic al mg on [facility] Branch 10/29/22 at 2121, Until Discontinu ed, Routine, Pain (scale 1-3) acetaminoph 3-0 Yes 650mg 650 mg, Un gregg en 8-16 Oral, ity of (TYLENOL) 02:22: Q6[place], [place] tablet 650 10 Starting Medic al mg on [facility] Branch 10/29/22 at 2121, Until Discontinu ed, Routine, Pain (scale 1-3) ALPRAZolam 2022-0 Yes .25mg Take 1 Univ ers 0.25 mg 8-16 tablet by ity of tablet 01:33: mouth in [place] [address] the Medical morning Branch and 1 tablet in the evening. Insulin 2022-0 Yes 20U inject 20 Unive rs Lispro, 8-16 Units ity of Human, 100 01:33: under the [place] unit/mL 54 skin in Medical cartridge the Branch morning and 20 Units in the evening. Insulin 3-0 Yes 25U inject 25 Unive rs Glargine 8-16 Units ity of 100 unit/mL 01:33: under the [place] (3 mL) 54 skin. Medical injection Branch aspirin 81 3-0 Yes 81mg Take 1 Unive rs mg EC 8-16 tablet by ity of tablet 01:33: mouth in [place] [address] the Medical morning. Branch sevelamer 3-0 Yes 800mg Take 1 Unive rs 800 mg 8-16 tablet by ity of tablet 01:33: mouth in [place] [address] the Medical morning Branch and 1 tablet at noon and 1 tablet in the evening. Take with meals. hydrALAZINE 3-0 Yes 10mg Take 1 Univ ers 10 mg 8-16 tablet by ity of tablet 01:33: mouth as [place] [address] needed for Medical BP and/or Branch HR Goals determined by provider. telmisartan 3-0 Yes 40mg Take 1 Univ ers 40 mg 8-16 tablet by ity of tablet 01:33: mouth in [place] [address] the Medical morning. Branch atenoloL 25 2022-0 Yes 25mg Take 1 Univ ers mg tablet 8-16 tablet by ity o f 01:33: mouth in [place] [address] the Medical morning. Branch ALPRAZolam 2022-0 Yes .25mg Take 1 Univ ers 0.25 mg 8-16 tablet by ity of tablet 01:33: mouth in [place] [address] the Medical morning Branch and 1 tablet in the evening. Insulin 2022-0 Yes 20U inject 20 Unive rs Lispro, 8-16 Units ity of Human, 100 01:33: under the [place] unit/mL 54 skin in Medical cartridge the Branch morning and 20 Units in the evening. Insulin 3-0 Yes 25U inject 25 Unive rs Glargine 8-16 Units ity of 100 unit/mL 01:33: under the [place] (3 mL) 54 skin. Medical injection Branch aspirin 81 2022-0 Yes 81mg Take 1 Unive rs mg EC 8-16 tablet by ity of tablet 01:33: mouth in [place] [address] the Medical morning. Branch sevelamer 2022-0 Yes 800mg Take 1 Unive rs 800 mg 8-16 tablet by ity of tablet 01:33: mouth in [place] [address] the Medical morning Branch and 1 tablet at noon and 1 tablet in the evening. Take with meals. hydrALAZINE 2022-0 Yes 10mg Take 1 Univ ers 10 mg 8-16 tablet by ity of tablet 01:33: mouth as [place] [address] needed for Medical BP and/or Branch HR Goals determined by provider. telmisartan 2022-0 Yes 40mg Take 1 Univ ers 40 mg 8-16 tablet by ity of tablet 01:33: mouth in [place] [address] the Medical morning. Branch atenoloL 25 2022-0 Yes 25mg Take 1 Univ ers mg tablet 8-16 tablet by ity o f 01:33: mouth in [place] [address] the Medical morning. Branch ALPRAZolam 2022-0 Yes .25mg Take 1 Univ ers 0.25 mg 8-16 tablet by ity of tablet 01:33: mouth in [place] [address] the Medical morning Branch and 1 tablet in the evening. Insulin 2022-0 Yes 20U inject 20 Unive rs Lispro, 8-16 Units ity of Human, 100 01:33: under the [place] unit/mL 54 skin in Medical cartridge the Branch morning and 20 Units in the evening. Insulin 2023-0 Yes 25U inject 25 Unive rs Glargine 8-16 Units ity of 100 unit/mL 01:33: under the [place] (3 mL) 54 skin. Medical injection Branch aspirin 81 3-0 Yes 81mg Take 1 Unive rs mg EC 8-16 tablet by ity of tablet 01:33: mouth in [place] [address] the Medical morning. Branch sevelamer 2023-0 Yes 800mg Take 1 Unive rs 800 mg 8-16 tablet by ity of tablet 01:33: mouth in [place] [address] the Medical morning Branch and 1 tablet at noon and 1 tablet in the evening. Take with meals. hydrALAZINE 3-0 Yes 10mg Take 1 Univ ers 10 mg 8-16 tablet by ity of tablet 01:33: mouth as [place] [address] needed for Medical BP and/or Branch HR Goals determined by provider. telmisartan 3-0 Yes 40mg Take 1 Univ ers 40 mg 8-16 tablet by ity of tablet 01:33: mouth in [place] [address] the Medical morning. Branch atenoloL 25 3-0 Yes 25mg Take 1 Univ ers mg tablet 8-16 tablet by ity o f 01:33: mouth in [place] [address] the Medical morning. Branch ALPRAZolam 3-0 Yes .25mg Take 1 Univ ers 0.25 mg 8-16 tablet by ity of tablet 01:33: mouth in [place] [address] the Medical morning Branch and 1 tablet in the evening. Insulin 2023-0 Yes 20U inject 20 Unive rs Lispro, 8-16 Units ity of Human, 100 01:33: under the [place] unit/mL 54 skin in Medical cartridge the Branch morning and 20 Units in the evening. Insulin 2023-0 Yes 25U inject 25 Unive rs Glargine 8-16 Units ity of 100 unit/mL 01:33: under the [place] (3 mL) 54 skin. Medical injection Branch aspirin 81 3-0 Yes 81mg Take 1 Unive rs mg EC 8-16 tablet by ity of tablet 01:33: mouth in [place] [address] the Medical morning. Branch sevelamer 2023-0 Yes 800mg Take 1 Unive rs 800 mg 8-16 tablet by ity of tablet 01:33: mouth in [place] [address] the Medical morning Branch and 1 tablet at noon and 1 tablet in the evening. Take with meals. hydrALAZINE 2023-0 Yes 10mg Take 1 Univ ers 10 mg 8-16 tablet by ity of tablet 01:33: mouth as [place] [address] needed for Medical BP and/or Branch HR Goals determined by provider. telmisartan 2023-0 Yes 40mg Take 1 Univ ers 40 mg 8-16 tablet by ity of tablet 01:33: mouth in [place] [address] the Medical morning. Branch atenoloL 25 3-0 Yes 25mg Take 1 Univ ers mg tablet 8-16 tablet by ity o f 01:33: mouth in [place] [address] the Medical morning. Branch ALPRAZolam 3-0 Yes .25mg Take 1 Univ ers 0.25 mg 8-16 tablet by ity of tablet 01:33: mouth in [place] [address] the Medical morning Branch and 1 tablet in the evening. Insulin 3-0 Yes 20U inject 20 Unive rs Lispro, 8-16 Units ity of Human, 100 01:33: under the [place] unit/mL 54 skin in Medical cartridge the Branch morning and 20 Units in the evening. Insulin 2023-0 Yes 25U inject 25 Unive rs Glargine 8-16 Units ity of 100 unit/mL 01:33: under the [place] (3 mL) 54 skin. Medical injection Branch aspirin 81 2023-0 Yes 81mg Take 1 Unive rs mg EC 8-16 tablet by ity of tablet 01:33: mouth in [place] [address] the Medical morning. Branch sevelamer 2023-0 Yes 800mg Take 1 Unive rs 800 mg 8-16 tablet by ity of tablet 01:33: mouth in [place] [address] the Medical morning Branch and 1 tablet at noon and 1 tablet in the evening. Take with meals. hydrALAZINE 2023-0 Yes 10mg Take 1 Univ ers 10 mg 8-16 tablet by ity of tablet 01:33: mouth as [place] [address] needed for Medical BP and/or Branch HR Goals determined by provider. telmisartan 2023-0 Yes 40mg Take 1 Univ ers 40 mg 8-16 tablet by ity of tablet 01:33: mouth in [place] 54 the Medical morning. Branch atenoloL 25 Yes 25mg Take 1 Univ ers mg tablet 816 tablet by ity o f 01:33: mouth in [place] 54 the Medical morning. Branch insulin 2022- No 12U 12 Units, Univ ers regular 10-30 IV Push, ity of human 00:15: 23:33 ONCE, 1 [place] (HUMULIN R) 00 :00 dose, On Medi siva injection [facility] 12 Units 10/29/22 at 1915, AKIL
In dication for insulin: Hyperglyce ellen NaCl 0.9% 2022- No 1000mL at 999 Uni vers (NS) bolus 10-29 mL/hr, ity of infusion 23:30: 00:48 1,000 mL, [place] as 1,000 mL 00 :00 IV Medical Infusion, [place] ONCE, 1 dose, On Tu 10/29/22 at 1830, STAT haloperidol 2022- No 2.5mg 2.5 mg, U nivers lactate 10-29 Intravenou ity o f (HALDOL) 22:15: 22:08 [place], ONCE, 1 [place] 00 :00 dose, On Medica l 2.5 mg [facility] 10/29/22 at 1715, STAT aspirin 2022- No 324mg 324 mg, Unive rs chewable 10-29 Oral, ity of tablet 324 21:09: 21:10 ONCE, 1 [place] mg 00 :00 dose, On Medical Tue [place] 10/29/22 at 1615, AKIL HEPARIN 2022- No 4000U 4,000 Univers SODIUM 10-29 Units, IV ity of (PORCINE) 19:45: 20:46 Push, [place] 1,000 00 :00 ONCE, 1 Medical UNIT/ML dose, On Branch BOLUS [facility] ORDER SET 10/29/22 at 1445, AKIL heparin 2022- No 0U/h 0-2,750 Univer s 25,000 10-29 08-16 Units/hr ity of Units/250 19:41: 18:33 (0[place]27.5 [place] mL 45 :12 mL/hr), IV Medical (Premixed Infusion, [facility] h Bag) in TITRATE, 0.45 % NS Parameters in Admin. Instr., Starting on Fri10/29/22 at 1441
In itiate dosing:&nb sp; & nbsp;&nbsp ; -Patient 83 kg or under: 1,000 Units/hr (Calculate d dose at 12 units/kg/h r) &n bsp; &nbs p; -Patient over 83 k,000 units/hr&n bsp;DO NOT Exceed the MAXIMUM 1,000 units/hr for initiation of heparin drip.&nbsp ; CAU TION - If LMWH given in ER, AVOID bolus and start next dose/drip 12 hrs after ER dosage.&nb sp; M ust program rate using programmab le infusion pump.&nbsp ; Aysha ck with the ordering provider first prior to any administra tion should the patient be on existing/a dditional anticoagul ant therapy. Rang e, Dosing and Testing: &nbs p;FOR [facility], AND [facility] ONLY &nbs p; - aPTT < 35: & nbsp;Bolus 5000 units, increase rate 300 units/hr&n bsp; - aPTT 35-44:&nbs p; Bonifacio aby 3000 units, increase rate 200 units/hr&n bsp; - aPTT 45-54:&nbs p; In crease rate 100 units/hr&n bsp; - aPTT 55-85:&nbs p; NO CHANGE&nbs p; - aPTT 86-95:&nbs p; De crease rate 100 units/hr&n bsp; - aPTT 96-120:&nb sp; H old 30 minutes, decrease rate 150 units/hr&n bsp; - aPTT > 120: Hold 60 minutes, decrease rate 200 units/hr&n bsp; Check aPTT 6 hours after initiation , then Q6H after every change, aPTT Q12H once therapeuti c levels are reached.&n bsp; &nbs p; __ &n bsp;FOR [facility] ONLY - aPTT < 40: & nbsp;Bolus 5000 units, increase rate 300 units/hr&n bsp; - aPTT 40-49:&amp ;nbsp;&nbs p;Bolus 3000 units, increase rate 200 units/hr&n bsp; - aPTT 50-59:&nbs p; In crease rate 100 units/hr&n bsp; - aPTT 60-85:&nbs p; NO CHANGE&nbs p; - aPTT 86-95:&nbs p; De crease rate 100 units/hr&n bsp; - aPTT 96-120:&nb sp; H old 30 minutes, decrease rate 150 units/hr&n bsp; - aPTT > 120: Hold 60 minutes, decrease rate 200 units/hr&n bsp; Check aPTT 6 hours after initiation , then Q6H after every change, aPTT Q12H once therapeuti c levels are reached.&n bsp; DO NOT ADJUST INITIAL BOLUS OR INITIAL INFUSION RATE.
proMETHazin 2022-0 2022- No 25mg 25 mg, IV Univers e 10-29 Piggyback, ity of (PHENERGAN) 18:15: 21:02 ONCE, 1 [place] 25 mg in 00 :00 dose, On Medical NaCl 0.9% Tue Branch (NS) 50 mL 10/29/22 at IV 1315, AKIL piggyback ondansetron 3-0 2022- No 4mg 4 mg, Slow Univers (ZOFRAN 10-29 IV Push, ity of (PF)) 17:30: 17:30 ONCE, 1 [place] injection 4 00 :00 dose, On Medi siva mg e Branch 10/29/22 at 1230, AKIL tc 2023-0 2022- No [id number] 15.9mCi 15.9 Univ ers 99m-tetrofo 10-29 millicurie i ty of smin 14:00: 13:57 , [place] (MYOVIEW) 00 :00 Intravenou Medi siva injection s, ONCE, 1 Bran ch 15.9 dose, On millicurie 10/29/22 at 0900, Routine rOPINIRole 2023-0 Yes 4mg Take 1 Unive rs 4 mg tablet 8-14 tablet by ity of 00:00: mouth [place] 00 every 24 Medical (twenty-fo Branch ur) hours as needed for Other. Restless leg syndrome rOPINIRole 2023-0 Yes 4mg Take 1 Unive rs 4 mg tablet 8-14 tablet by ity of 00:00: mouth [place] 00 every 24 Medical (twenty-fo Branch ur) hours as needed for Other. Restless leg syndrome rOPINIRole 2023-0 Yes 4mg Take 1 Unive rs 4 mg tablet 8-14 tablet by ity of 00:00: mouth [place] 00 every 24 Medical (twenty-fo Branch ur) hours as needed for Other. Restless leg syndrome rOPINIRole 2023-0 Yes 4mg Take 1 Unive rs 4 mg tablet 8-14 tablet by ity of 00:00: mouth [place] 00 every 24 Medical (twenty-fo Branch ur) hours as needed for Other. Restless leg syndrome rOPINIRole 2023-0 Yes 4mg Take 1 Unive rs 4 mg tablet 8-14 tablet by ity of 00:00: mouth [place] 00 every 24 Medical (twenty-fo Branch ur) hours as needed for Other. Restless leg syndrome rOPINIRole 2023-0 Yes 4mg Take 1 Unive rs 4 mg tablet 8-14 tablet by ity of 00:00: mouth [place] 00 every 24 Medical (twenty-fo Branch ur) hours as needed for Other. Restless leg syndrome rOPINIRole 2023-0 Yes 4mg Take 1 Unive rs 4 mg tablet 8-14 tablet by ity of 00:00: mouth [place] 00 every 24 Medical (twenty-fo Branch ur) hours as needed for Other. Restless leg syndrome rOPINIRole 2023-0 Yes 4mg Take 1 Unive rs 4 mg tablet 8-14 tablet by ity of 00:00: mouth [place] 00 every 24 Medical (twenty-fo Branch ur) hours as needed for Other. Restless leg syndrome rOPINIRole 2023-0 Yes 4mg Take 1 Unive rs 4 mg tablet 8-14 tablet by ity of 00:00: mouth [place] 00 every 24 Medical (twenty-fo Branch ur) hours as needed for Other. Restless leg syndrome rOPINIRole 2023-0 Yes 4mg Take 1 Unive rs 4 mg tablet 8-14 tablet by ity of 00:00: mouth [place] 00 every 24 Medical (twenty-fo Branch ur) hours as needed for Other. Restless leg syndrome rOPINIRole 2023-0 Yes 4mg Take 1 Unive rs 4 mg tablet 8-14 tablet by ity of 00:00: mouth [place] 00 every 24 Medical (twenty-fo Branch ur) hours as needed for Other. Restless leg syndrome rOPINIRole 2023-0 Yes 4mg Take 1 Unive rs 4 mg tablet 8-14 tablet by ity of 00:00: mouth [place] 00 every 24 Medical (twenty-fo Branch ur) hours as needed for Other. Restless leg syndrome rOPINIRole 2023-0 Yes 4mg Take 1 Unive rs 4 mg tablet 8-14 tablet by ity of 00:00: mouth [place] 00 every 24 Medical (twenty-fo Branch ur) hours as needed for Other. Restless leg syndrome rOPINIRole 2023-0 Yes 4mg Take 1 Unive rs 4 mg tablet 8-14 tablet by ity of 00:00: mouth [place] 00 every 24 Medical (twenty-fo Branch ur) hours as needed for Other. Restless leg syndrome aspirin 81 2023-0 Yes 81mg Take 1 Unive rs mg EC 7-20 tablet by ity of tablet 13:00: mouth in [place] 37 the Medical morning. Branch aspirin 81 2023-0 Yes 81mg Take 1 Unive rs mg EC 7-20 tablet by ity of tablet 13:00: mouth in [place] 37 the Medical morning. Branch aspirin 81 2023-0 Yes 81mg Take 1 Unive rs mg EC 7-20 tablet by ity of tablet 13:00: mouth in [place] [address] the Medical morning. Branch aspirin 81 2023-0 Yes 81mg Take 1 Unive rs mg EC 7-20 tablet by ity of tablet 13:00: mouth in [place] [address] the Medical morning. Branch telmisartan 2023-0 Yes 40mg Take 1 Univ ers 40 mg 7-20 tablet by ity of tablet 13:00: mouth in [place] [address] the Medical morning. Branch telmisartan 2023-0 Yes 40mg Take 1 Univ ers 40 mg 7-20 tablet by ity of tablet 13:00: mouth in [place] [address] the Medical morning. Branch telmisartan 2023-0 Yes 40mg Take 1 Univ ers 40 mg 7-20 tablet by ity of tablet 13:00: mouth in [place] [address] the Medical morning. Branch telmisartan 2023-0 Yes 40mg Take 1 Univ ers 40 mg 7-20 tablet by ity of tablet 13:00: mouth in [place] [address] the Medical morning. Branch hydrALAZINE 2023-0 Yes 10mg Take 1 Univ ers 10 mg 7-20 tablet by ity of tablet 13:00: mouth as [place] 30 needed for Medical BP and/or Branch HR Goals determined by provider. hydrALAZINE 2023-0 Yes 10mg Take 1 Univ ers 10 mg 7-20 tablet by ity of tablet 13:00: mouth as [place] 30 needed for Medical BP and/or Branch HR Goals determined by provider. hydrALAZINE 2023-0 Yes 10mg Take 1 Univ ers 10 mg 7-20 tablet by ity of tablet 13:00: mouth as [place] 30 needed for Medical BP and/or Branch HR Goals determined by provider. hydrALAZINE 2023-0 Yes 10mg Take 1 Univ ers 10 mg 7-20 tablet by ity of tablet 13:00: mouth as [place] 30 needed for Medical BP and/or Branch HR Goals determined by provider. atenoloL 25 2023-0 Yes 25mg Take 1 Univ ers mg tablet 7-20 tablet by ity o f 13:00: mouth in [place] [address] the Medical morning. Branch atenoloL 25 2023-0 Yes 25mg Take 1 Univ ers mg tablet 7-20 tablet by ity o f 13:00: mouth in [place] [address] the Medical morning. Branch atenoloL 25 3-0 Yes 25mg Take 1 Univ ers mg tablet 7-20 tablet by ity o f 13:00: mouth in [place] [address] the Medical morning. Branch clopidogreL 2023-0 Yes [id number] 75mg Take 1 Univers 75 mg 7-20 tablet by ity of tablet 00:00: mouth in [place] 00 the Medical morning. Branch clopidogreL 2023-0 Yes [id number] 75mg Take 1 Univers 75 mg 7-20 tablet by ity of tablet 00:00: mouth in [place] 00 the Medical morning. Branch clopidogreL 2023-0 Yes [id number] 75mg Take 1 Univers 75 mg 7-20 tablet by ity of tablet 00:00: mouth in [place] 00 the Medical morning. Branch clopidogreL 2023-0 Yes [id number] 75mg Take 1 Univers 75 mg 7-20 tablet by ity of tablet 00:00: mouth in [place] 00 the Medical morning. Branch clopidogreL 2023-0 Yes [id number] 75mg Take 1 Univers 75 mg 7-20 tablet by ity of tablet 00:00: mouth in [place] the Medical morning. Branch clopidogreL 3-0 Yes [id number] 75mg Take 1 Univers 75 mg 7-20 tablet by ity of tablet 00:00: mouth in [place] 00 the Medical morning. Branch clopidogreL 2023-0 2023- No [id number] 75mg Take 1 Univers 75 mg 7-20 08-17 tablet by ity of tablet 00:00: 00:00 mouth in [place] 00 :00 the Medical morning. Branch clopidogreL 2023-0 Yes [id number] 75mg Take 1 Univers 75 mg 7-13 tablet by ity of tablet 00:00: mouth in [place] 00 the Medical morning. Branch clopidogreL 2023-0 Yes [id number] 75mg Take 1 Univers 75 mg 7-13 tablet by ity of tablet 00:00: mouth in [place] 00 the Medical morning. Branch clopidogreL 2023-0 Yes [id number] 75mg Take 1 Univers 75 mg 7-13 tablet by ity of tablet 00:00: mouth in [place] 00 the Medical morning. Branch clopidogreL 2023-0 Yes [id number] 75mg Take 1 Univers 75 mg 7-13 tablet by ity of tablet 00:00: mouth in [place] 00 the Medical morning. Branch clopidogreL 2023-0 Yes [id number] 75mg Take 1 Univers 75 mg 7-13 tablet by ity of tablet 00:00: mouth in [place] 00 the Medical morning. Branch clopidogreL 2022-0 2022- No [id number] 75mg Take 1 Univers 75 mg 7-13 07-20 tablet by ity of tablet 00:00: 00:00 mouth in [place] 00 :00 the Medical morning. Branch heparin 0 Yes [id number] 2000U PRN - SEE Univers 1,000 7-12 INSTRUCTIO ity of unit/mL 16:39: NS, [place] injection 26 Starting Medica l 2,000 Units on Fri09/25/22 at 1139, Until Discontinu ed, Routine
For Priming of Ports:&nbs p; &n bsp; After initial saline flush, prime each port with heparin according to the priming volume listed on each catheter port for catheter lock.
ALPRAZolam 0 Yes .25mg Take 1 Univ ers 0.25 mg 7-12 tablet by ity of tablet 15:42: mouth in [place] [address] the Medical morning Branch and 1 tablet in the evening. Insulin 0 Yes 20U inject 20 Unive rs Lispro, 7-12 Units ity of Human, 100 15:42: under the [place] unit/mL 50 skin in Medical cartridge the Branch morning and 20 Units in the evening. Insulin 0 Yes 25U inject 25 Unive rs Glargine 7-12 Units ity of 100 unit/mL 15:42: under the [place] (3 mL) 50 skin. Medical injection Branch aspirin 81 2022-0 Yes 81mg Take 1 Unive rs mg EC 7-12 tablet by ity of tablet 15:42: mouth in [place] [address] the Medical morning. Branch sevelamer 2022-0 Yes 800mg Take 1 Unive rs 800 mg 7-12 tablet by ity of tablet 15:42: mouth in [place] [address] the Medical morning Branch and 1 tablet at noon and 1 tablet in the evening. Take with meals. hydrALAZINE 0 Yes 10mg Take 1 Univ ers 10 mg 7-12 tablet by ity of tablet 15:42: mouth as [place] [address] needed for Medical BP and/or Branch HR Goals determined by provider. telmisartan 2022-0 Yes 40mg Take 1 Univ ers 40 mg 7-12 tablet by ity of tablet 15:42: mouth in [place] [address] the Medical morning. Branch atenoloL 25 2022-0 Yes 25mg Take 1 Univ ers mg tablet 7-12 tablet by ity o f 15:42: mouth in [place] [address] the Medical morning. Branch ALPRAZolam 2022-0 Yes .25mg Take 1 Univ ers 0.25 mg 7-12 tablet by ity of tablet 15:42: mouth in [place] [address] the Medical morning Branch and 1 tablet in the evening. Insulin 2022-0 Yes 20U inject 20 Unive rs Lispro, 7-12 Units ity of Human, 100 15:42: under the [place] unit/mL 50 skin in Medical cartridge the Branch morning and 20 Units in the evening. Insulin 2022-0 Yes 25U inject 25 Unive rs Glargine 7-12 Units ity of 100 unit/mL 15:42: under the [place] (3 mL) 50 skin. Medical injection Branch aspirin 81 2022-0 Yes 81mg Take 1 Unive rs mg EC 7-12 tablet by ity of tablet 15:42: mouth in [place] [address] the Medical morning. Branch sevelamer 2022-0 Yes 800mg Take 1 Unive rs 800 mg 7-12 tablet by ity of tablet 15:42: mouth in [place] [address] the Medical morning Branch and 1 tablet at noon and 1 tablet in the evening. Take with meals. hydrALAZINE 2022-0 Yes 10mg Take 1 Univ ers 10 mg 7-12 tablet by ity of tablet 15:42: mouth as [place] [address] needed for Medical BP and/or Branch HR Goals determined by provider. telmisartan 2022-0 Yes 40mg Take 1 Univ ers 40 mg 7-12 tablet by ity of tablet 15:42: mouth in [place] [address] the Medical morning. Branch atenoloL 25 2022-0 Yes 25mg Take 1 Univ ers mg tablet 7-12 tablet by ity o f 15:42: mouth in [place] [address] the Medical morning. Branch ALPRAZolam 2022-0 Yes .25mg Take 1 Univ ers 0.25 mg 7-12 tablet by ity of tablet 15:42: mouth in [place] [address] the Medical morning Branch and 1 tablet in the evening. Insulin 2022-0 Yes 20U inject 20 Unive rs Lispro, 7-12 Units ity of Human, 100 15:42: under the [place] unit/mL 50 skin in Medical cartridge the Branch morning and 20 Units in the evening. Insulin 2023-0 Yes 25U inject 25 Unive rs Glargine 7-12 Units ity of 100 unit/mL 15:42: under the [place] (3 mL) 50 skin. Medical injection Branch aspirin 81 2023-0 Yes 81mg Take 1 Unive rs mg EC 7-12 tablet by ity of tablet 15:42: mouth in [place] [address] the Medical morning. Branch sevelamer 2023-0 Yes 800mg Take 1 Unive rs 800 mg 7-12 tablet by ity of tablet 15:42: mouth in [place] [address] the Medical morning Branch and 1 tablet at noon and 1 tablet in the evening. Take with meals. hydrALAZINE 2023-0 Yes 10mg Take 1 Univ ers 10 mg 7-12 tablet by ity of tablet 15:42: mouth as [place] [address] needed for Medical BP and/or Branch HR Goals determined by provider. telmisartan 2023-0 Yes 40mg Take 1 Univ ers 40 mg 7-12 tablet by ity of tablet 15:42: mouth in [place] [address] the Medical morning. Branch ALPRAZolam 2023-0 Yes .25mg Take 1 Univ ers 0.25 mg 7-12 tablet by ity of tablet 15:42: mouth in [place] [address] the Medical morning Branch and 1 tablet in the evening. Insulin 2023-0 Yes 20U inject 20 Unive rs Lispro, 7-12 Units ity of Human, 100 15:42: under the [place] unit/mL 50 skin in Medical cartridge the Branch morning and 20 Units in the evening. Insulin 2023-0 Yes 25U inject 25 Unive rs Glargine 7-12 Units ity of 100 unit/mL 15:42: under the [place] (3 mL) 50 skin. Medical injection Branch sevelamer 2023-0 Yes 800mg Take 1 Unive rs 800 mg 7-12 tablet by ity of tablet 15:42: mouth in [place] [address] the Medical morning Branch and 1 tablet at noon and 1 tablet in the evening. Take with meals. ALPRAZolam 2023-0 Yes .25mg Take 1 Univ ers 0.25 mg 7-12 tablet by ity of tablet 15:42: mouth in [address] and 1 tablet in the evening. Insulin 2023-0 Yes 20U inject 20 Unive rs Lispro, 7-12 Units ity of Human, 100 15:42: under the [place] unit/mL 50 skin in Medical [facility] the [place] morning and 20 Units in the evening. Insulin 2023-0 Yes 25U inject 25 Unive rs Glargine 7-12 Units ity of 100 unit/mL 15:42: under the [place] (3 mL) 50 skin. Medical injection Branch sevelamer 2023-0 Yes 800mg Take 1 Unive rs 800 mg 7-12 tablet by ity of tablet 15:42: mouth in [address] and 1 tablet at noon and 1 tablet in the evening. Take with meals. ALPRAZolam 2023-0 Yes .25mg Take 1 Univ ers 0.25 mg 7-12 tablet by ity of tablet 15:42: mouth in [address] and 1 tablet in the evening. Insulin 2023-0 Yes 20U inject 20 Unive rs Lispro, 7-12 Units ity of Human, 100 15:42: under the [place] unit/mL 50 skin in [facility] the [place] morning and 20 Units in the evening. Insulin 2023-0 Yes 25U inject 25 Unive rs Glargine 7-12 Units ity of 100 unit/mL 15:42: under the [place] (3 mL) 50 skin. Medical injection Branch sevelamer 2023-0 Yes 800mg Take 1 Unive rs 800 mg 7-12 tablet by ity of tablet 15:42: mouth in [address] and 1 tablet at noon and 1 tablet in the evening. Take with meals. ALPRAZolam 2023-0 Yes .25mg Take 1 Univ ers 0.25 mg 7-12 tablet by ity of tablet 15:42: mouth in [address] and 1 tablet in the evening. Insulin 2023-0 Yes 20U inject 20 Unive rs Lispro, 7-12 Units ity of Human, 100 15:42: under the [place] unit/mL 50 skin in [facility] the [place] morning and 20 Units in the evening. Insulin 2023-0 Yes 25U inject 25 Unive rs Glargine 7-12 Units ity of 100 unit/mL 15:42: under the [place] (3 mL) 50 skin. Medical injection Branch sevelamer 3-0 Yes 800mg Take 1 Unive rs 800 mg 7-12 tablet by ity of tablet 15:42: mouth in [place] [address] the Medical morning Branch and 1 tablet at noon and 1 tablet in the evening. Take with meals. docusate 3-0 Yes 100mg 100 mg, Unive rs (COLACE) 7-12 Oral, ity of capsule 100 14:00: DAILY, [place] mg 00 First dose Medical on Fri09/25/22 at 0900, Until Discontinu ed, Routine NIFEdipine 2022-0 Yes 90mg 90 mg, Unive rs ER tablet 7-12 Oral, ity of 90 mg 14:00: DAILY, First dose Medical on Fri [place] 09/25/22 at 0900, Until Discontinu ed, Routine atenoloL 2022-0 Yes 25mg 25 mg, Univers (TENORMIN) 7-12 Oral, ity of tablet 25 14:00: DAILY, [place] mg 00 First dose Medical on Fri09/25/22 at 0900, Until Discontinu ed, Routine clopidogreL 2022-0 Yes 75mg 75 mg, Univ ers (PLAVIX) 75 7-12 Oral, ity of mg tablet 14:00: DAILY, [place] 75 mg 00 First dose Medical on Fri [place] 09/25/22 at 0900, Until Discontinu ed, Routine, CV Recovery to Floor
F aculty member approving Restricted medication : BJORN MICHELLE aspirin 2022-0 Yes 81mg 81 mg, Univers chewable 7-12 Oral, ity of tablet 81 14:00: DAILY, [place] mg 00 First dose Medical on Fri [place] 09/25/22 at 0900, Until Discontinu ed, Routine, CV Recovery to Floor docusate 2022-0 Yes 100mg 100 mg, Unive rs (COLACE) 7-12 Oral, ity of capsule 100 14:00: DAILY, [place] mg 00 First dose Medical on Fri [place] 09/25/22 at 0900, Until Discontinu ed, Routine NIFEdipine 3-0 Yes 90mg 90 mg, Unive rs ER tablet 7-12 Oral, ity of 90 mg 14:00: DAILY, 00 First dose Medical on Fri09/25/22 at 0900, Until Discontinu ed, Routine atenoloL 2022-0 Yes 25mg 25 mg, Univers (TENORMIN) 7-12 Oral, ity of tablet 25 14:00: DAILY, [place] mg 00 First dose Medical on Fri [place] 09/25/22 at 0900, Until Discontinu ed, Routine clopidogreL 2022-0 Yes 75mg 75 mg, Univ ers (PLAVIX) 75 7-12 Oral, ity of mg tablet 14:00: DAILY, [place] 75 mg 00 First dose Medical on Fri [place] 09/25/22 at 0900, Until Discontinu ed, Routine, CV Recovery to Floor
F aculty member approving Restricted medication : LEISACLYDEBJORN LIDADAWSON aspirin 2022-0 Yes 81mg 81 mg, Univers chewable 7-12 Oral, ity of tablet 81 14:00: DAILY, [place] mg 00 First dose Medical on [facility] 09/25/22 at 0900, Until Discontinu ed, Routine, CV Recovery to Floor ALPRAZolam 2022-0 Yes .25mg Take 1 Univ ers 0.25 mg 7-12 tablet by ity of tablet 13:02: mouth in [place] [address] the Medical morning Branch and 1 tablet in the evening. Insulin 2022-0 Yes 20U inject 20 Unive rs Lispro, 7-12 Units ity of Human, 100 13:02: under the [place] unit/mL 54 skin in Medical cartridge the Branch morning and 20 Units in the evening. Insulin 2023-0 Yes 25U inject 25 Unive rs Glargine 7-12 Units ity of 100 unit/mL 13:02: under the [place] (3 mL) 54 skin. Medical injection Branch aspirin 81 2023-0 Yes 81mg Take 1 Unive rs mg EC 7-12 tablet by ity of tablet 13:02: mouth in [place] [address] the Medical morning. Branch sevelamer 2023-0 Yes 800mg Take 1 Unive rs 800 mg 7-12 tablet by ity of tablet 13:02: mouth in [place] [address] the Medical morning Branch and 1 tablet at noon and 1 tablet in the evening. Take with meals. hydrALAZINE 2022-0 Yes 10mg Take 1 Univ ers 10 mg 7-12 tablet by ity of tablet 13:02: mouth as [place] [address] needed for Medical BP and/or Branch HR Goals determined by provider. telmisartan Yes 40mg Take 1 Univ ers 40 mg 7-12 tablet by ity of tablet 13:02: mouth in [place] 54 the Medical morning. Branch atenoloL 25 0 Yes 25mg Take 1 Univ ers mg tablet 7-12 tablet by ity o f 13:02: mouth in [place] 54 the Medical morning. Branch heparin 0 Yes 5000U 5,000 Univers (porcine) 7-12 Units, ity of injection 01:00: [place] 5,000 Units 00 us, Q12H, Med ical First dose Branch on [facility] 09/24/22 at 2000, Until Discontinu ed, Routine heparin 2022- Yes 5000U 5,000 Univers (porcine) 7-12 Units, ity of injection 01:00: Subcut[place]o [place] 5,000 Units 00 us, Q12H, Med ical First dose Branch on [facility] 09/24/22 at 2000, Until Discontinu ed, Routine sevelamer 0 Yes 800mg 800 mg, Univ ers (RENVELA) 09-24 Oral, TID ity o f tablet 800 22:00: MEALS, [place] mg 00 First dose Medical on [facility] 09/24/22 at 1700, Until Discontinu ed, Routine sevelamer 0 Yes 800mg 800 mg, Univ ers (RENVELA) 09-24 Oral, TID ity o f tablet 800 22:00: MEALS, [place] mg 00 First dose Medical on [facility] 09/24/22 at 1700, Until Discontinu ed, Routine clopidogreL 2022- No 600mg 600 mg, U nivers (PLAVIX) 09-2412 Oral, ity of 300 mg 22:00: 03:10 ONCE, 1 [place] tablet 600 00 :00 dose, On Medic al mg [facility] 09/24/22 at 1700, Routine, CV Recovery to Floor
F aculty member approving Restricted medication : BJORN MICHELLE ALPRAZolam 0 Yes .25mg 0.25 mg, Un gregg (XANAX) 09-24 Oral, ity of tablet 0.25 20:00: BIDPRN, [place] mg 53 Starting Medical on [facility] 09/24/22 at 1500, Until Discontinu ed, Routine, Anxiety ALPRAZolam 0 Yes .25mg 0.25 mg, Un gregg (XANAX) 09-24 Oral, ity of tablet 0.25 20:00: BIDPRN, [place] mg 53 Starting Medical on [facility] 09/24/22 at 1500, Until Discontinu ed, Routine, Anxiety ondansetron 2022-0 Yes 4mg 4 mg, Slow Univers (ZOFRAN 11 IV Push, ity of (PF)) 19:58: Q6HPRN, [place] injection 4 30 Starting Medi siva mg on [facility] 09/24/22 at 1458, Until Discontinu ed, Routine, Nausea and Vomiting (N/V) ondansetron 2022-0 Yes 4mg 4 mg, Slow Univers (ZOFRAN 711 IV Push, ity of (PF)) 19:58: Q6HPRN, [place] injection 4 30 Starting Medi siva mg on [facility] 09/24/22 at 1458, Until Discontinu ed, Routine, Nausea and Vomiting (N/V) morpHINE (2 2022- No 4mg 4 mg, Slow Univers mg/mL) 09-2412 IV Push, ity of injection 4 19:57: 19:56 Q4HPRN, [place] mg 10 :10 Starting Medical on [facility] 09/24/22 at 1457, Until Fri09/25/22 at 1456, Routine, Pain (scale 7-10) HYDROcodone 2022-0 2022- No 1{tbl} 1 tablet, Univers -acetaminop 09-24 Oral, ity of hen (NORCO 19:57: 19:56 Q6HPRN, [place] 5) 5-325 mg 05 :05 Starting Medi siva tablet 1 on [facility] tablet 09/24/22 at 1457, Until [place] 09/26/22 at 1456, Routine, Pain (scale 4-6) HYDROcodone 2022-0 2022- No 1{tbl} 1 tablet, Univers -acetaminop 09-24 Oral, ity of hen (NORCO 19:57: 19:56 Q6HPRN, [place] 5) 5-325 mg 05 :05 Starting Medi siva tablet 1 on [facility] Branch tablet 09/24/22 at 1457, Until [place] 09/26/22 at 1456, Routine, Pain (scale 4-6) acetaminoph Yes 650mg 650 mg, Un gregg en 09-24 Oral, ity of (TYLENOL) 19:56: Q6HPRN, [place] tablet 650 59 Starting Medic al mg on [facility] Branch 09/24/22 at 1456, Until Discontinu ed, Routine, Pain (scale 1-3) acetaminoph 2022-0 Yes 650mg 650 mg, Un gregg en 09-24 Oral, ity of (TYLENOL) 19:56: Q6HPRN, [place] tablet 650 59 Starting Medic al mg on [facility] Branch 09/24/22 at 1456, Until Discontinu ed, Routine, Pain (scale 1-3) sulfur 2022- No [id number] 5mL 5 mL, Univ ers hexafluorid 09-2411 Intravenou i ty of e microsphr 16:30: 16:17 s, ONCE, 1 [place] (LUMASON) 00 :00 dose, On Medica l injection 5 [facility] mL 09/24/22 at 1130, Routine
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 aspirin 81 2022-0 Yes 81mg Take 1 Unive rs mg EC 7-11 tablet by ity of tablet 14:59: mouth in [place] [address] the Medical morning. Branch sevelamer 2022-0 Yes 800mg Take 1 Unive rs 800 mg 7-11 tablet by ity of tablet 14:59: mouth in [place] [address] the [facility] Branch and 1 tablet at noon and 1 tablet in the evening. Take with meals. atenoloL 25 2022-0 Yes 25mg Take 1 Univ ers mg tablet 7-11 tablet by ity o f 14:59: mouth in [place] [address] the Medical morning. Branch ALPRAZolam 2022-0 Yes .25mg Take 1 Univ ers 0.25 mg 7-11 tablet by ity of tablet 14:59: mouth in [address] Branch and 1 tablet in the evening. aspirin 81 2022-0 Yes 81mg Take 1 Unive rs mg EC 7-11 tablet by ity of tablet 14:59: mouth in [place] [address] the [facility]. Branch sevelamer 2022-0 Yes 800mg Take 1 Unive rs 800 mg 7-11 tablet by ity of tablet 14:59: mouth in [address] and 1 tablet at noon and 1 tablet in the evening. Take with meals. atenoloL 25 2022-0 Yes 25mg Take 1 Univ ers mg tablet 7-11 tablet by ity o f 14:59: mouth in [place] [address] [facility]. Branch iopamidol 2022- No ONCE INTRA U nivers (ISOVUE 09-24 PROCEDURE, ity o f 370-500 mL) 13:56: 14:14 [place] injection 00 :58 on [facility] 09/24/22 at Branch 0856, Until [facility] 09/24/22 at 0914, Routine, CV Intraproce dure ticagrelor 2022- No ONCE INTRA Univers (BRILINTA) 09-24 PROCEDURE, it y of tablet 13:31: 14:09 Starting [place] 22 :46 on [facility] 09/24/22 at Branch 0831, Until 09/24/22 at 0909, Routine, CV Intraproce dure heparin 2022- No ONCE INTRA Uni vers 1,000 09-24 PROCEDURE, ity of unit/mL 13:26: 14:09 Starting [place] injection 56 :46 on [facility] 09/24/22 at Branch 0826, Until 09/24/22 at 0909, Routine, CV Intraproce dure lidocaine 2022-2022- No ONCE INTRA U nivers 1% (PF) 09-24 PROCEDURE, ity o f (XYLOCAINE) 12:56: 14:09 Starting [place] injection 39 :46 on [facility] 09/24/22 at Branch 0756, Until [facility] 09/24/22 at 0909, Routine, CV Intraproce dure FENTanyl PF 2022- No ONCE INTRA Univers (SUBLIMAZE 09-24 PROCEDURE, it y of (PF)) 12:50: 14:09 Starting [place] injection 00 :46 on [facility] 09/24/22 at Branch 0750, Until [facility] 09/24/22 at 0909, Routine, CV Intraproce dure midazolam 2022- No ONCE INTRA U nivers (VERSED) 09-24 PROCEDURE, ity of injection 12:50: 14:09 Starting [place] 00 :46 on [facility] 09/24/22 at Branch 0750, Until [facility] 09/24/22 at 0909, Routine, CV Intraproce dure aspirin 2022-0 2022- No [id number] 81mg 81 mg, Un gregg chewable 09-24 Oral, ity of tablet 81 12:30: 12:34 ONCE, 1 [place] mg 00 :[place] dose, On [facility] 09/24/22 at 0730, Routine aspirin 2022-0 2022- No [id number] 81mg 81 mg, Un gregg chewable 09-24 Oral, ity of tablet 81 12:30: 12:34 ONCE, 1 [place] mg 00 :00 dose, On [facility] 09/24/22 at 0730, Routine dextrose Yes [id number] 250mL 250 mL, IV Univers 10% (D10W) 09-24 Infusion, ity of bolus 12:07: PRN - SEE [place] infusion 30 INSTRUCTIO Medic al 250 mL NS, Branch Administer over 60 Minutes, Other, If blood glucose is < or = 70 mg/dL and patient is unable to swallow or has mental status changes, Starting on [facility] 09/24/22 at 0707
If blood glucose is < or = 70 mg/dL and patient is unable to swallow or has mental status changes (Give glucagon order if patient needs fluid restrictio n): IF IV access available: Dextrose 10%. 1. 125 mL (? bag) of D10W IV infusion - equivalent to 12.5 g dextrose 2. Blood glucose - draw blood glucose 15 minutes after D10W Administra tion. 3. If blood glucose is < 80 mg/dL, repeat.
dextrose Yes [id number] 250mL 250 mL, IV Univers 10% (D10W) 7-11 Infusion, ity of bolus 12:07: PRN - SEE [place] infusion 30 INSTRUCTIO Medic al 250 mL NS, Branch Administer over 60 Minutes, Other, If blood glucose is < or = 70 mg/dL and patient is unable to swallow or has mental status changes, Starting on Fri09/24/22 at 0707
If blood glucose is < or = 70 mg/dL and patient is unable to swallow or has mental status changes (Give glucagon order if patient needs fluid restrictio n): IF IV access available: Dextrose 10%. 1. 125 mL (? bag) of D10W IV infusion - equivalent to 12.5 g dextrose 2. Blood glucose - draw blood glucose 15 minutes after D10W Administra tion. 3. If blood glucose is < 80 mg/dL, repeat.
D10W 10 % Yes at 20-40 Univ ers IV infusion 7-11 mL/hr, IV ity of 12:00: Infusion, [place] 19 TITRATE, Medical Starting Branch on Fri09/24/22 at 0700, Until Discontinu ed, Routine, CV Preprocedu re D10W 10 % Yes at 20-40 Univ ers IV infusion 7-11 mL/hr, IV ity of 12:00: Infusion, [place] 19 TITRATE, Medical Starting Branch on Fri09/24/22 at 0700, Until Discontinu ed, Routine, CV Preprocedu re Insulin Yes 20U inject 20 Unive rs Lispro, 7-11 Units ity of Human, 100 06:57: under the [place] unit/mL 43 skin in Medical cartridge the Branch morning and 20 Units in the evening. Insulin Yes 25U inject 25 Unive rs Glargine 7-11 Units ity of 100 unit/mL 06:57: under the [place] (3 mL) 43 skin. Medical injection Branch hydrALAZINE Yes 10mg Take 1 Univ ers 10 mg 7-11 tablet by ity of tablet 06:57: mouth as [place] [address] needed for Medical BP and/or Branch HR Goals determined by provider. telmisartan 2022-0 Yes 40mg Take 1 Univ ers 40 mg 7-11 tablet by ity of tablet 06:57: mouth in [place] the Medical morning. Branch Insulin 2022-0 Yes 20U inject 20 Unive rs Lispro, 7-11 Units ity of Human, 100 06:57: under the [place] unit/mL 43 skin in Medical cartridge the Branch morning and 20 Units in the evening. Insulin 2022-0 Yes 25U inject 25 Unive rs Glargine 7-11 Units ity of 100 unit/mL 06:57: under the [place] (3 mL) 43 skin. Medical injection Branch hydrALAZINE 2022-0 Yes 10mg Take 1 Univ ers 10 mg 7-11 tablet by ity of tablet 06:57: mouth as [place] [address] needed for Medical BP and/or Branch HR Goals determined by provider. telmisartan 2022-0 Yes 40mg Take 1 Univ ers 40 mg 7-11 tablet by ity of tablet 06:57: mouth in [place] 43 the Medical morning. Branch NITROGLYCER 0 Yes [id number] DISSOLVE Univers IN 0.4 mg 6-21 ONE TABLET ity of sublingual 00:00: UNDER THE [place] tablet 00 TONGUE Medical EVERY 5 Branch MINUTES NEEDED FOR CHEST PAIN. DO NOT EXCEED A TOTAL OF 3 DOSES IN 15 MINUTES NITROGLYCER 2022-0 Yes [id number] DISSOLVE Univers IN 0.4 mg 6-21 ONE TABLET ity of sublingual 00:00: UNDER THE [place] tablet 00 TONGUE Medical EVERY 5 Branch MINUTES NEEDED FOR CHEST PAIN. DO NOT EXCEED A TOTAL OF 3 DOSES IN 15 MINUTES NITROGLYCER 2022-0 Yes [id number] DISSOLVE Univers IN 0.4 mg 6-21 ONE TABLET ity of sublingual 00:00: UNDER THE [place] tablet 00 TONGUE Medical EVERY 5 Branch MINUTES NEEDED FOR CHEST PAIN. DO NOT EXCEED A TOTAL OF 3 DOSES IN 15 MINUTES NITROGLYCER 2022-0 Yes [id number] DISSOLVE Univers IN 0.4 mg 6-21 ONE TABLET ity of sublingual 00:00: UNDER THE [place] tablet 00 TONGUE Medical EVERY 5 Branch MINUTES NEEDED FOR CHEST PAIN. DO NOT EXCEED A TOTAL OF 3 DOSES IN 15 MINUTES NITROGLYCER 2022-0 Yes [id number] DISSOLVE Univers IN 0.4 mg 6-21 ONE TABLET ity of sublingual 00:00: UNDER THE [place] tablet 00 TONGUE Medical EVERY 5 Branch MINUTES NEEDED FOR CHEST PAIN. DO NOT EXCEED A TOTAL OF 3 DOSES IN 15 MINUTES NITROGLYCER 2022-0 Yes [id number] DISSOLVE Univers IN 0.4 mg 6-21 ONE TABLET ity of sublingual 00:00: UNDER THE [place] tablet 00 TONGUE Medical EVERY 5 Branch MINUTES NEEDED FOR CHEST PAIN. DO NOT EXCEED A TOTAL OF 3 DOSES IN 15 MINUTES NITROGLYCER 2022-0 Yes [id number] DISSOLVE Univers IN 0.4 mg 6-21 ONE TABLET ity of sublingual 00:00: UNDER THE [place] tablet 00 TONGUE Medical EVERY 5 Branch MINUTES NEEDED FOR CHEST PAIN. DO NOT EXCEED A TOTAL OF 3 DOSES IN 15 MINUTES NITROGLYCER 2022-0 Yes [id number] DISSOLVE Univers IN 0.4 mg 6-21 ONE TABLET ity of sublingual 00:00: UNDER THE [place] tablet 00 TONGUE Medical EVERY 5 Branch MINUTES NEEDED FOR CHEST PAIN. DO NOT EXCEED A TOTAL OF 3 DOSES IN 15 MINUTES NITROGLYCER 2022-0 Yes [id number] DISSOLVE Univers IN 0.4 mg 6-21 ONE TABLET ity of sublingual 00:00: UNDER THE [place] tablet 00 TONGUE Medical EVERY 5 Branch MINUTES NEEDED FOR CHEST PAIN. DO NOT EXCEED A TOTAL OF 3 DOSES IN 15 MINUTES NITROGLYCER 2022-0 Yes [id number] DISSOLVE Univers IN 0.4 mg 6-21 ONE TABLET ity of sublingual 00:00: UNDER THE [place] tablet 00 TONGUE Medical EVERY 5 Branch MINUTES NEEDED FOR CHEST PAIN. DO NOT EXCEED A TOTAL OF 3 DOSES IN 15 MINUTES NITROGLYCER 2022-0 Yes [id number] DISSOLVE Univers IN 0.4 mg 6-21 ONE TABLET ity of sublingual 00:00: UNDER THE [place] tablet 00 TONGUE Medical EVERY 5 Branch MINUTES NEEDED FOR CHEST PAIN. DO NOT EXCEED A TOTAL OF 3 DOSES IN 15 MINUTES NITROGLYCER 3-0 Yes [id number] DISSOLVE Univers IN 0.4 mg 6-21 ONE TABLET ity of sublingual 00:00: UNDER THE [place] tablet 00 TONGUE Medical EVERY 5 Branch MINUTES NEEDED FOR CHEST PAIN. DO NOT EXCEED A TOTAL OF 3 DOSES IN 15 MINUTES NITROGLYCER 3-0 Yes [id number] DISSOLVE Univers IN 0.4 mg 6-21 ONE TABLET ity of sublingual 00:00: UNDER THE [place] tablet 00 TONGUE Medical EVERY 5 Branch MINUTES NEEDED FOR CHEST PAIN. DO NOT EXCEED A TOTAL OF 3 DOSES IN 15 MINUTES NITROGLYCER 2022-0 Yes [id number] DISSOLVE Univers IN 0.4 mg 6-21 ONE TABLET ity of sublingual 00:00: UNDER THE [place] tablet 00 TONGUE Medical EVERY 5 Branch MINUTES NEEDED FOR CHEST PAIN. DO NOT EXCEED A TOTAL OF 3 DOSES IN 15 MINUTES NITROGLYCER 2022-0 Yes [id number] DISSOLVE Univers IN 0.4 mg 6-21 ONE TABLET ity of sublingual 00:00: UNDER THE [place] tablet 00 TONGUE Medical EVERY 5 Branch MINUTES NEEDED FOR CHEST PAIN. DO NOT EXCEED A TOTAL OF 3 DOSES IN 15 MINUTES NITROGLYCER 2022-0 Yes [id number] DISSOLVE Univers IN 0.4 mg 6-21 ONE TABLET ity of sublingual 00:00: UNDER THE [place] tablet 00 TONGUE Medical EVERY 5 Branch MINUTES NEEDED FOR CHEST PAIN. DO NOT EXCEED A TOTAL OF 3 DOSES IN 15 MINUTES NITROGLYCER 2022-0 Yes [id number] DISSOLVE Univers IN 0.4 mg 6-21 ONE TABLET ity of sublingual 00:00: UNDER THE [place] tablet 00 TONGUE Medical EVERY 5 Branch MINUTES NEEDED FOR CHEST PAIN. DO NOT EXCEED A TOTAL OF 3 DOSES IN 15 MINUTES NITROGLYCER 2022-0 Yes [id number] DISSOLVE Univers IN 0.4 mg 6-21 ONE TABLET ity of sublingual 00:00: UNDER THE [place] tablet 00 TONGUE Medical EVERY 5 Branch MINUTES NEEDED FOR CHEST PAIN. DO NOT EXCEED A TOTAL OF 3 DOSES IN 15 MINUTES NITROGLYCER 2022-0 Yes [id number] DISSOLVE Univers IN 0.4 mg 6-21 ONE TABLET ity of sublingual 00:00: UNDER THE [place] tablet 00 TONGUE Medical EVERY 5 Branch MINUTES NEEDED FOR CHEST PAIN. DO NOT EXCEED A TOTAL OF 3 DOSES IN 15 MINUTES NITROGLYCER 2022-0 Yes [id number] DISSOLVE Univers IN 0.4 mg 6-21 ONE TABLET ity of sublingual 00:00: UNDER THE [place] tablet 00 TONGUE Medical EVERY 5 Branch MINUTES NEEDED FOR CHEST PAIN. DO NOT EXCEED A TOTAL OF 3 DOSES IN 15 MINUTES NITROGLYCER 2022-0 Yes [id number] DISSOLVE Univers IN 0.4 mg 6-21 ONE TABLET ity of sublingual 00:00: UNDER THE [place] tablet 00 TONGUE Medical EVERY 5 Branch MINUTES NEEDED FOR CHEST PAIN. DO NOT EXCEED A TOTAL OF 3 DOSES IN 15 MINUTES NITROGLYCER 3-0 Yes [id number] DISSOLVE Univers IN 0.4 mg 6-21 ONE TABLET ity of sublingual 00:00: UNDER THE [place] tablet 00 TONGUE Medical EVERY 5 Branch MINUTES NEEDED FOR CHEST PAIN. DO NOT EXCEED A TOTAL OF 3 DOSES IN 15 MINUTES NITROGLYCER 3-0 Yes [id number] DISSOLVE Univers IN 0.4 mg 6-21 ONE TABLET ity of sublingual 00:00: UNDER THE [place] tablet 00 TONGUE Medical EVERY 5 Branch MINUTES NEEDED FOR CHEST PAIN. DO NOT EXCEED A TOTAL OF 3 DOSES IN 15 MINUTES NITROGLYCER 3-0 Yes [id number] DISSOLVE Univers IN 0.4 mg 6-21 ONE TABLET ity of sublingual 00:00: UNDER THE [place] tablet 00 TONGUE Medical EVERY 5 Branch MINUTES NEEDED FOR CHEST PAIN. DO NOT EXCEED A TOTAL OF 3 DOSES IN 15 MINUTES NITROGLYCER 2022-0 Yes [id number] DISSOLVE Univers IN 0.4 mg 6-21 ONE TABLET ity of sublingual 00:00: UNDER THE [place] tablet 00 TONGUE Medical EVERY 5 Branch MINUTES NEEDED FOR CHEST PAIN. DO NOT EXCEED A TOTAL OF 3 DOSES IN 15 MINUTES NITROGLYCER 2022-0 Yes [id number] DISSOLVE Univers IN 0.4 mg 6-21 ONE TABLET ity of sublingual 00:00: UNDER THE [place] tablet 00 TONGUE Medical EVERY 5 Branch MINUTES NEEDED FOR CHEST PAIN. DO NOT EXCEED A TOTAL OF 3 DOSES IN 15 MINUTES NITROGLYCER 2022-0 Yes [id number] DISSOLVE Univers IN 0.4 mg 6-21 ONE TABLET ity of sublingual 00:00: UNDER THE [place] tablet 00 TONGUE Medical EVERY 5 Branch MINUTES NEEDED FOR CHEST PAIN. DO NOT EXCEED A TOTAL OF 3 DOSES IN 15 MINUTES ALPRAZolam 2022-0 Yes .25mg Take 1 Univ ers 0.25 mg 6-15 tablet by ity of tablet 14:15: mouth in [place] 10 the Medical morning Branch and 1 tablet in the evening. aspirin 81 3-0 Yes 81mg Take 1 Unive rs mg EC 6-15 tablet by ity of tablet 14:15: mouth in [place] 10 the Medical morning. Branch hydrALAZINE 2023-0 Yes 10mg Take 1 Univ ers 10 mg 6-15 tablet by ity of tablet 14:15: mouth as [place] 10 needed for Medical BP and/or Branch HR Goals determined by provider. telmisartan 2023-0 Yes 40mg Take 1 Univ ers 40 mg 6-15 tablet by ity of tablet 14:15: mouth in [place] 10 the Medical morning. Branch ALPRAZolam 2023-0 Yes .25mg Take 1 Univ ers 0.25 mg 6-15 tablet by ity of tablet 14:15: mouth in [place] 10 the Medical morning Branch and 1 tablet in the evening. aspirin 81 2023-0 Yes 81mg Take 1 Unive rs mg EC 6-15 tablet by ity of tablet 14:15: mouth in [place] 10 the Medical morning. Branch hydrALAZINE 2023-0 Yes 10mg Take 1 Univ ers 10 mg 6-15 tablet by ity of tablet 14:15: mouth as [place] 10 needed for Medical BP and/or Branch HR Goals determined by provider. telmisartan 2023-0 Yes 40mg Take 1 Univ ers 40 mg 6-15 tablet by ity of tablet 14:15: mouth in [place] 10 the Medical morning. Branch ALPRAZolam 2023-0 Yes .25mg Take 1 Univ ers 0.25 mg 6-15 tablet by ity of tablet 14:15: mouth in [place] 10 the Medical morning Branch and 1 tablet in the evening. aspirin 81 2023-0 Yes 81mg Take 1 Unive rs mg EC 6-15 tablet by ity of tablet 14:15: mouth in [place] 10 the Medical morning. Branch hydrALAZINE 2023-0 Yes 10mg Take 1 Univ ers 10 mg 6-15 tablet by ity of tablet 14:15: mouth as [place] 10 needed for Medical BP and/or Branch HR Goals determined by provider. telmisartan 2023-0 Yes 40mg Take 1 Univ ers 40 mg 6-15 tablet by ity of tablet 14:15: mouth in [place] 10 the Medical morning. Branch ALPRAZolam 2023-0 Yes .25mg Take 1 Univ ers 0.25 mg 6-15 tablet by ity of tablet 14:15: mouth in [place] 10 the Medical morning Branch and 1 tablet in the evening. aspirin 81 2023-0 Yes 81mg Take 1 Unive rs mg EC 6-15 tablet by ity of tablet 14:15: mouth in [place] 10 the Medical morning. Branch hydrALAZINE 2023-0 Yes 10mg Take 1 Univ ers 10 mg 6-15 tablet by ity of tablet 14:15: mouth as [place] 10 needed for Medical BP and/or Branch HR Goals determined by provider. telmisartan 2023-0 Yes 40mg Take 1 Univ ers 40 mg 6-15 tablet by ity of tablet 14:15: mouth in [place] 10 the Medical morning. Branch ALPRAZolam 2023-0 Yes .25mg Take 1 Univ ers 0.25 mg 6-15 tablet by ity of tablet 14:15: mouth in [place] 10 the Medical morning Branch and 1 tablet in the evening. aspirin 81 2023-0 Yes 81mg Take 1 Unive rs mg EC 6-15 tablet by ity of tablet 14:15: mouth in [place] 10 the Medical morning. Branch hydrALAZINE 2023-0 Yes 10mg Take 1 Univ ers 10 mg 6-15 tablet by ity of tablet 14:15: mouth as [place] 10 needed for Medical BP and/or Branch HR Goals determined by provider. telmisartan 2023-0 Yes 40mg Take 1 Univ ers 40 mg 6-15 tablet by ity of tablet 14:15: mouth in [place] [address] the Medical morning. Branch ALPRAZolam 2023-0 Yes .25mg Take 1 Univ ers 0.25 mg 6-15 tablet by ity of tablet 14:15: mouth in [place] [address] the Medical morning Branch and 1 tablet in the evening. aspirin 81 2023-0 Yes 81mg Take 1 Unive rs mg EC 6-15 tablet by ity of tablet 14:15: mouth in [place] 10 the Medical morning. Branch hydrALAZINE 2023-0 Yes 10mg Take 1 Univ ers 10 mg 6-15 tablet by ity of tablet 14:15: mouth as [place] 10 needed for Medical BP and/or Branch HR Goals determined by provider. telmisartan 2023-0 Yes 40mg Take 1 Univ ers 40 mg 6-15 tablet by ity of tablet 14:15: mouth in [place] 10 the Medical morning. Branch ALPRAZolam 2023-0 Yes .25mg Take 1 Univ ers 0.25 mg 6-15 tablet by ity of tablet 14:15: mouth in [place] 10 the Medical morning Branch and 1 tablet in the evening. aspirin 81 2023-0 Yes 81mg Take 1 Unive rs mg EC 6-15 tablet by ity of tablet 14:15: mouth in [place] 10 the Medical morning. Branch hydrALAZINE 2023-0 Yes 10mg Take 1 Univ ers 10 mg 6-15 tablet by ity of tablet 14:15: mouth as [place] 10 needed for Medical BP and/or Branch HR Goals determined by provider. telmisartan 2023-0 Yes 40mg Take 1 Univ ers 40 mg 6-15 tablet by ity of tablet 14:15: mouth in [place] 10 the Medical morning. Branch ALPRAZolam 2023-0 Yes .25mg Take 1 Univ ers 0.25 mg 6-15 tablet by ity of tablet 14:15: mouth in [place] 10 the Medical morning Branch and 1 tablet in the evening. aspirin 81 2023-0 Yes 81mg Take 1 Unive rs mg EC 6-15 tablet by ity of tablet 14:15: mouth in [place] 10 the Medical morning. Branch hydrALAZINE 2023-0 Yes 10mg Take 1 Univ ers 10 mg 6-15 tablet by ity of tablet 14:15: mouth as [place] 10 needed for Medical BP and/or Branch HR Goals determined by provider. telmisartan 2023-0 Yes 40mg Take 1 Univ ers 40 mg 6-15 tablet by ity of tablet 14:15: mouth in [place] 10 the Medical morning. Branch ALPRAZolam 2023-0 Yes .25mg Take 1 Univ ers 0.25 mg 6-15 tablet by ity of tablet 14:15: mouth in [place] 10 the Medical morning Branch and 1 tablet in the evening. aspirin 81 2023-0 Yes 81mg Take 1 Unive rs mg EC 6-15 tablet by ity of tablet 14:15: mouth in [place] 10 the Medical morning. Branch hydrALAZINE 2023-0 Yes 10mg Take 1 Univ ers 10 mg 6-15 tablet by ity of tablet 14:15: mouth as [place] 10 needed for Medical BP and/or Branch HR Goals determined by provider. telmisartan 2023-0 Yes 40mg Take 1 Univ ers 40 mg 6-15 tablet by ity of tablet 14:15: mouth in [place] 10 the Medical morning. Branch hydrALAZINE 2023-0 Yes 10mg Take 1 Univ ers 10 mg 4-19 tablet by ity of tablet 13:50: mouth as [place] 33 needed for Medical BP and/or Branch HR Goals determined by provider. hydrALAZINE 2023-0 Yes 10mg Take 1 Univ ers 10 mg 4-19 tablet by ity of tablet 13:50: mouth as [place] 33 needed for Medical BP and/or Branch HR Goals determined by provider. hydrALAZINE 2023-0 Yes 10mg Take 1 Univ ers 10 mg 4-19 tablet by ity of tablet 13:50: mouth as [place] 33 needed for Medical BP and/or Branch HR Goals determined by provider. hydrALAZINE 2023-0 Yes 10mg Take 1 Univ ers 10 mg 4-19 tablet by ity of tablet 13:50: mouth as [place] 33 needed for Medical BP and/or Branch HR Goals determined by provider. hydrALAZINE 2023-0 Yes 10mg Take 1 Univ ers 10 mg 4-19 tablet by ity of tablet 13:50: mouth as [place] 33 needed for Medical BP and/or Branch HR Goals determined by provider. hydrALAZINE 2023-0 Yes 10mg Take 1 Univ ers 10 mg 4-19 tablet by ity of tablet 13:50: mouth as [place] 33 needed for Medical BP and/or Branch HR Goals determined by provider. hydrALAZINE 2023-0 Yes 10mg Take 1 Univ ers 10 mg 4-19 tablet by ity of tablet 13:50: mouth as [place] 33 needed for Medical BP and/or Branch HR Goals determined by provider. hydrALAZINE 2023-0 Yes 10mg Take 1 Univ ers 10 mg 4-19 tablet by ity of tablet 13:50: mouth as [place] 33 needed for Medical BP and/or Branch HR Goals determined by provider. hydrALAZINE 2023-0 Yes 10mg Take 1 Univ ers 10 mg 4-19 tablet by ity of tablet 13:50: mouth as [place] 33 needed for Medical BP and/or Branch HR Goals determined by provider. hydrALAZINE 2023-0 Yes 10mg Take 1 Univ ers 10 mg 4-19 tablet by ity of tablet 13:50: mouth as [place] 33 needed for Medical BP and/or Branch HR Goals determined by provider. hydrALAZINE 2023-0 Yes 10mg Take 1 Univ ers 10 mg 4-19 tablet by ity of tablet 13:50: mouth as [place] 33 needed for Medical BP and/or Branch HR Goals determined by provider. aspirin 81 2023-0 Yes 81mg Take 81 mg U nivers mg EC 4-19 by mouth ity of tablet 13:47: daily. [address] Branch aspirin 81 2023-0 Yes 81mg Take 81 mg U nivers mg EC 4-19 by mouth ity of tablet 13:47: daily. [address] Branch aspirin 81 2023-0 Yes 81mg Take 81 mg U nivers mg EC 4-19 by mouth ity of tablet 13:47: daily. [address] Branch aspirin 81 2023-0 Yes 81mg Take 81 mg U nivers mg EC 4-19 by mouth ity of tablet 13:47: daily. [address] Branch aspirin 81 2023-0 Yes 81mg Take 81 mg U nivers mg EC 4-19 by mouth ity of tablet 13:47: daily. [address] Branch aspirin 81 2023-0 Yes 81mg Take 81 mg U nivers mg EC 4-19 by mouth ity of tablet 13:47: daily. [address] aspirin 81 3-0 Yes 81mg Take 81 mg U nivers mg EC 4-19 by mouth ity of tablet 13:47: daily. [address] Branch aspirin 81 3-0 Yes 81mg Take 81 mg U nivers mg EC 4-19 by mouth ity of tablet 13:47: daily. [address] Branch aspirin 81 2023-0 Yes 81mg Take 81 mg U nivers mg EC 4-19 by mouth ity of tablet 13:47: daily. [address] aspirin 81 3-0 Yes 81mg Take 81 mg U nivers mg EC 4-19 by mouth ity of tablet 13:47: daily. [address] Branch aspirin 81 3-0 Yes 81mg Take 81 mg U nivers mg EC 4-19 by mouth ity of tablet 13:47: daily. [address] Branch telmisartan 3-0 Yes 40mg Take 1 Univ ers 40 mg 4-19 tablet by ity of tablet 13:47: mouth in [place] [address] the Medical morning. Branch telmisartan 2023-0 Yes 40mg Take 1 Univ ers 40 mg 4-19 tablet by ity of tablet 13:47: mouth in [place] [address] the Medical morning. Branch telmisartan 2023-0 Yes 40mg Take 1 Univ ers 40 mg 4-19 tablet by ity of tablet 13:47: mouth in [place] [address] the Medical morning. Branch telmisartan 3-0 Yes 40mg Take 1 Univ ers 40 mg 4-19 tablet by ity of tablet 13:47: mouth in [place] [address] the Medical morning. Branch telmisartan 2023-0 Yes 40mg Take 1 Univ ers 40 mg 4-19 tablet by ity of tablet 13:47: mouth in [place] [address] the Medical morning. Branch telmisartan 2023-0 Yes 40mg Take 1 Univ ers 40 mg 4-19 tablet by ity of tablet 13:47: mouth in [place] [address] the Medical morning. Branch telmisartan 3-0 Yes 40mg Take 1 Univ ers 40 mg 4-19 tablet by ity of tablet 13:47: mouth in [place] [address] the Medical morning. Branch telmisartan 3-0 Yes 40mg Take 1 Univ ers 40 mg 4-19 tablet by ity of tablet 13:47: mouth in [place] [address] the Medical morning. Branch telmisartan 3-0 Yes 40mg Take 1 Univ ers 40 mg 4-19 tablet by ity of tablet 13:47: mouth in [place] [address] the Medical morning. Branch telmisartan 3-0 Yes 40mg Take 1 Univ ers 40 mg 4-19 tablet by ity of tablet 13:47: mouth in [place] [address] the Medical morning. Branch telmisartan 3-0 Yes 40mg Take 1 Univ ers 40 mg 4-19 tablet by ity of tablet 13:47: mouth in [place] [address] the Medical morning. Branch atorvastati 2022-0 Yes [id number] 80mg Take 1 Univers n 80 mg 4-19 tablet by ity of tablet 00:00: mouth at [place] [address] bedtime. Medical Branch metoprolol 3-0 Yes [id number] 25mg Take 1 Univers succinate 4-19 tablet by ity o f XL 25 mg 24 00:00: mouth in [place] hr tablet 00 the Medical morning Branch and 1 tablet in the evening. nitroglycer 3-[id number] 1 Univers in 0.4 mg 4-19 tablet ity of sublingual 00:00: under the [place] tablet 00 tongue Medical every 5 Branch (five) minutes as needed for Chest pain for up to 30 doses. atorvastati 2022-0 Yes [id number] 80mg Take 1 Univers n 80 mg 4-19 tablet by ity of tablet 00:00: mouth at [place] 00 bedtime. Medical Branch metoprolol 2022-0 Yes [id number] 25mg Take 1 Univers succinate 4-19 tablet by ity o f XL 25 mg 24 00:00: mouth in [place] hr tablet 00 the Medical morning Branch and 1 tablet in the evening. nitroglycer 2022-[id number] 1 [facility] in 0.4 mg 4-19 tablet ity of sublingual 00:00: under the [place] tablet 00 tongue Medical every 5 Branch (five) minutes as needed for Chest pain for up to 30 doses. atorvastati 2022-0 Yes [id number] 80mg Take 1 [facility] n 80 mg 4-19 tablet by ity of tablet 00:00: mouth at [place] 00 bedtime. Medical Branch metoprolol 2022-0 Yes [id number] 25mg Take 1 [facility] succinate 4-19 tablet by ity o f XL 25 mg 24 00:00: mouth in [place] hr tablet 00 the Medical morning Branch and 1 tablet in the evening. nitroglycer 2022-[id number] 1 [facility] in 0.4 mg 4-19 tablet ity of sublingual 00:00: under the [place] tablet 00 tongue Medical every 5 Branch (five) minutes as needed for Chest pain for up to 30 doses. atorvastati 2022-0 Yes [id number] 80mg Take 1 [facility] n 80 mg 4-19 tablet by ity of tablet 00:00: mouth at [place] 00 bedtime. Medical Branch metoprolol 2022-0 Yes [id number] 25mg Take 1 [facility] succinate 4-19 tablet by ity o f XL 25 mg 24 00:00: mouth in [place] hr tablet 00 the Medical morning Branch and 1 tablet in the evening. nitroglycer 2022-[id number] 1 [facility] in 0.4 mg 4-19 tablet ity of sublingual 00:00: under the [place] tablet 00 tongue Medical every 5 Branch (five) minutes as needed for Chest pain for up to 30 doses. atorvastati 2022-0 Yes [id number] 80mg Take 1 [facility] n 80 mg 4-19 tablet by ity of tablet 00:00: mouth at [place] 00 bedtime. Medical Branch metoprolol 2022-0 Yes [id number] 25mg Take 1 [facility] succinate 4-19 tablet by ity o f XL 25 mg 24 00:00: mouth in [place] hr tablet 00 the Medical morning Branch and 1 tablet in the evening. nitroglycer 2022-[id number] 1 [facility] in 0.4 mg 4-19 tablet ity of sublingual 00:00: under the [place] tablet 00 tongue Medical every 5 Branch (five) minutes as needed for Chest pain for up to 30 doses. atorvastati 2022-0 Yes [id number] 80mg Take 1 [facility] n 80 mg 4-19 tablet by ity of tablet 00:00: mouth at [place] 00 bedtime. Medical Branch metoprolol 2022-0 Yes [id number] 25mg Take 1 [facility] succinate 4-19 tablet by ity o f XL 25 mg 24 00:00: mouth in [place] hr tablet 00 the Medical morning Branch and 1 tablet in the evening. nitroglycer 2022-[id number] 1 [facility] in 0.4 mg 4-19 tablet ity of sublingual 00:00: under the [place] tablet 00 tongue Medical every 5 Branch (five) minutes as needed for Chest pain for up to 30 doses. atorvastati 2022-0 Yes [id number] 80mg Take 1 [facility] n 80 mg 4-19 tablet by ity of tablet 00:00: mouth at [place] 00 bedtime. Medical Branch metoprolol 2022-0 Yes [id number] 25mg Take 1 [facility] succinate 4-19 tablet by ity o f XL 25 mg 24 00:00: mouth in [place] hr tablet 00 the Medical morning Branch and 1 tablet in the evening. nitroglycer 3-[id number] 1 [facility] in 0.4 mg 4-19 tablet ity of sublingual 00:00: under the [place] tablet 00 tongue Medical every 5 Branch (five) minutes as needed for Chest pain for up to 30 doses. atorvastati 2022-0 Yes [id number] 80mg Take 1 [facility] n 80 mg 4-19 tablet by ity of tablet 00:00: mouth at [place] 00 bedtime. Medical Branch metoprolol 2022-0 Yes [id number] 25mg Take 1 [facility] succinate 4-19 tablet by ity o f XL 25 mg 24 00:00: mouth in [place] hr tablet 00 the Medical morning Branch and 1 tablet in the evening. nitroglycer 2022-[id number] 1 [facility] in 0.4 mg 4-19 tablet ity of sublingual 00:00: under the [place] tablet 00 tongue Medical every 5 Branch (five) minutes as needed for Chest pain for up to 30 doses. atorvastati 2022-0 Yes [id number] 80mg Take 1 [facility] n 80 mg 4-19 tablet by ity of tablet 00:00: mouth at [place] 00 bedtime. Medical Branch metoprolol 2022-0 Yes [id number] 25mg Take 1 [facility] succinate 4-19 tablet by ity o f XL 25 mg 24 00:00: mouth in [place] hr tablet 00 the Medical morning Branch and 1 tablet in the evening. nitroglycer 2022-[id number] 1 [facility] in 0.4 mg 4-19 tablet ity of sublingual 00:00: under the [place] tablet 00 tongue Medical every 5 Branch (five) minutes as needed for Chest pain for up to 30 doses. atorvastati 2022-0 Yes [id number] 80mg Take 1 [facility] n 80 mg 4-19 tablet by ity of tablet 00:00: mouth at [place] 00 bedtime. Medical Branch metoprolol 2022-0 Yes [id number] 25mg Take 1 [facility] succinate 4-19 tablet by ity o f XL 25 mg 24 00:00: mouth in [place] hr tablet 00 the Medical morning Branch and 1 tablet in the evening. nitroglycer 2022-[id number] 1 [facility] in 0.4 mg 4-19 tablet ity of sublingual 00:00: under the [place] tablet 00 tongue Medical every 5 Branch (five) minutes as needed for Chest pain for up to 30 doses. atorvastati 2022-0 Yes [id number] 80mg Take 1 [facility] n 80 mg 4-19 tablet by ity of tablet 00:00: mouth at [place] 00 bedtime. Medical Branch nitroglycer 2022-[id number] 1 [facility] in 0.4 mg 4-19 tablet ity of sublingual 00:00: under the [place] tablet 00 tongue Medical every 5 Branch (five) minutes as needed for Chest pain for up to 30 doses. atorvastati 2022-0 Yes [id number] 80mg Take 1 [facility] n 80 mg 4-19 tablet by ity of tablet 00:00: mouth at [place] 00 bedtime. Medical Branch nitroglycer 2022-[id number] 1 [facility] in 0.4 mg 4-19 tablet ity of sublingual 00:00: under the [place] tablet 00 tongue Medical every 5 Branch (five) minutes as needed for Chest pain for up to 30 doses. atorvastati 2022-0 Yes [id number] 80mg Take 1 [facility] n 80 mg 4-19 tablet by ity of tablet 00:00: mouth at [place] 00 bedtime. Medical Branch nitroglycer 2022-[id number] 1 [facility] in 0.4 mg 4-19 tablet ity of sublingual 00:00: under the [place] tablet 00 tongue Medical every 5 Branch (five) minutes as needed for Chest pain for up to 30 doses. atorvastati 2022-0 Yes [id number] 80mg Take 1 [facility] n 80 mg 4-19 tablet by ity of tablet 00:00: mouth at [place] 00 bedtime. Medical Branch nitroglycer 2022-[id number] 1 [facility] in 0.4 mg 4-19 tablet ity of sublingual 00:00: under the [place] tablet 00 tongue Medical every 5 Branch (five) minutes as needed for Chest pain for up to 30 doses. atorvastati 2022-0 Yes [id number] 80mg Take 1 [facility] n 80 mg 4-19 tablet by ity of tablet 00:00: mouth at [place] 00 bedtime. Medical Branch nitroglycer 2022-[id number] 1 [facility] in 0.4 mg 4-19 tablet ity of sublingual 00:00: under the [place] tablet 00 tongue Medical every 5 Branch (five) minutes as needed for Chest pain for up to 30 doses. atorvastati 2022-0 Yes [id number] 80mg Take 1 [facility] n 80 mg 4-19 tablet by ity of tablet 00:00: mouth at [place] 00 bedtime. Medical Branch nitroglycer 2023-[id number] 1 [facility] in 0.4 mg 4-19 tablet ity of sublingual 00:00: under the [place] tablet 00 tongue Medical every 5 Branch (five) minutes as needed for Chest pain for up to 30 doses. atorvastati 2022-0 Yes [id number] 80mg Take 1 [facility] n 80 mg 4-19 tablet by ity of tablet 00:00: mouth at [place] [address] bedtime. Medical Branch atorvastati 2022-0 Yes [id number] 80mg Take 1 [facility] n 80 mg 4-19 tablet by ity of tablet 00:00: mouth at [place] [address] bedtime. Medical Branch atorvastati 0 Yes [id number] 80mg Take 1 [facility] n 80 mg 4-19 tablet by ity of tablet 00:00: mouth at [place] [address] bedtime. Medical Branch atorvastati 0 Yes [id number] 80mg Take 1 [facility] n 80 mg 4-19 tablet by ity of tablet 00:00: mouth at [place] [address] bedtime. Medical Branch atorvastati 0 Yes [id number] 80mg Take 1 [facility] n 80 mg 4-19 tablet by ity of tablet 00:00: mouth at [place] [address] bedtime. Medical Branch atorvastati 0 Yes [id number] 80mg Take 1 [facility] n 80 mg 4-19 tablet by ity of tablet 00:00: mouth at [place] [address] bedtime. Medical Branch atorvastati 0 Yes [id number] 80mg Take 1 [facility] n 80 mg 4-19 tablet by ity of tablet 00:00: mouth at [place] [address] bedtime. Medical Branch atorvastati 2022-0 Yes [id number] 80mg Take 1 [facility] n 80 mg 4-19 tablet by ity of tablet 00:00: mouth at [place] [address] bedtime. Medical Branch atorvastati 0 Yes [id number] 80mg Take 1 [facility] n 80 mg 4-19 tablet by ity of tablet 00:00: mouth at [place] [address] bedtime. Medical Branch atorvastati 0 Yes [id number] 80mg Take 1 [facility] n 80 mg 4-19 tablet by ity of tablet 00:00: mouth at [place] [address] bedtime. Medical Branch atorvastati 0 Yes [id number] 80mg Take 1 [facility] n 80 mg 4-19 tablet by ity of tablet 00:00: mouth at [place] [address] bedtime. Medical Branch atorvastati 0 Yes [id number] 80mg Take 1 [facility] n 80 mg 4-19 tablet by ity of tablet 00:00: mouth at [place] [address] bedtime. Medical Branch atorvastati 0 Yes [id number] 80mg Take 1 [facility] n 80 mg 4-19 tablet by ity of tablet 00:00: mouth at [place] [address] bedtime. Medical Branch atorvastati 0 Yes [id number] 80mg Take 1 [facility] n 80 mg 4-19 tablet by ity of tablet 00:00: mouth at [place] [address] bedtime. Medical Branch atorvastati Yes [id number] 80mg Take 1 [facility] n 80 mg 4-19 tablet by ity of tablet 00:00: mouth at [place] [address] bedtime. Medical Branch atorvastati Yes [id number] 80mg Take 1 [facility] n 80 mg 4-19 tablet by ity of tablet 00:00: mouth at [place] [address] bedtime. Medical Branch atorvastati Yes [id number] 80mg Take 1 [facility] n 80 mg 4-19 tablet by ity of tablet 00:00: mouth at [place] [address] bedtime. Medical Branch atorvastati Yes [id number] 80mg Take 1 [facility] n 80 mg 4-19 tablet by ity of tablet 00:00: mouth at [place] [address] bedtime. Medical Branch atorvastati Yes [id number] 80mg Take 1 [facility] n 80 mg 4-19 tablet by ity of tablet 00:00: mouth at [place] [address] bedtime. Medical Branch atorvastati 2022- No [id number] 80mg Take 1 [facility] n 80 mg 4-19 08-17 tablet by ity of tablet 00:00: 00:00 mouth at [place] 00 :00 bedtime. Medical Branch nitroglycer 2022- No [id number] .4mg Place 1 [facility] in 0.4 mg 4-19 06-21 tablet ity of sublingual 00:00: 00:00 under the [place] tablet 00 :00 tongue Medical every 5 Branch (five) minutes as needed for Chest pain for up to 30 doses. nitroglycer 3- No [id number] .4mg Place 1 [facility] in 0.4 mg 07-03- tablet ity of sublingual 00:00: 00:00 under the [place] tablet 00 :00 [facility] Medical every 5 Branch (five) minutes as needed for Chest pain for up to 30 doses. metoprolol 2022-0 2022- No [id number] 25mg Take 1 [facility] succinate 07-03- tablet by ity of XL 25 mg 24 00:00: 00:00 mouth in [place] hr tablet 00 :00 the Medical morning Branch and 1 tablet in the evening. amLODIPine 3-0 2022- No 10mg Take 10 mg [facility] 10 mg 3-29 -29 by mouth ity of tablet 09:17: 00:00 daily. [place] 35 :00 Medical Branch telmisartan 2023-0 Yes 40mg Take 1 [facility] ers 40 mg 3-29 tablet by ity of tablet 09:13: mouth in [place] [address] the Medical morning. Branch telmisartan 2023-0 Yes 40mg Take 1 [facility] ers 40 mg 3-29 tablet by ity of tablet 09:13: mouth in [place] [address] the Medical morning. Branch telmisartan 2023-0 Yes 40mg Take 1 [facility] ers 40 mg 3-29 tablet by ity of tablet 09:13: mouth in [place] [address] the Medical morning. Branch telmisartan 2023-0 Yes 40mg Take 1 [facility] ers 40 mg 3-29 tablet by ity of tablet 09:13: mouth in [place] [address] the Medical morning. Branch telmisartan 2023-0 Yes 40mg Take 1 [facility] ers 40 mg 3-29 tablet by ity of tablet 09:13: mouth in [place] [address] the Medical morning. Branch hydrALAZINE 2023-0 Yes 10mg Take 1 [facility] ers 10 mg 3-29 tablet by ity of tablet 09:13: mouth as [place] 13 needed for Medical BP and/or Branch HR Goals determined by provider. hydrALAZINE 2023-0 Yes 10mg Take 1 [facility] ers 10 mg 3-29 tablet by ity of tablet 09:13: mouth as [place] 13 needed for Medical BP and/or Branch HR Goals determined by provider. hydrALAZINE 2023-0 Yes 10mg Take 1 [facility] ers 10 mg 3-29 tablet by ity of tablet 09:13: mouth as [place] 13 needed for Medical BP and/or Branch HR Goals determined by provider. hydrALAZINE 2023-0 Yes 10mg Take 1 [facility] ers 10 mg 3-29 tablet by ity of tablet 09:13: mouth as [place] 13 needed for Medical BP and/or Branch HR Goals determined by provider. hydrALAZINE 2023-0 Yes 10mg Take 1 [facility] ers 10 mg 3-29 tablet by ity of tablet 09:13: mouth as [place] 13 needed for Medical BP and/or Branch HR Goals determined by provider. NIFEdipine 2023-0 2023- No 90mg Take 90 mg [facility] CC 90 mg SR 3-29 -29 by mouth 2 i ty of tablet 09:11: 00:00 (two) [place] 41 :00 times Medical daily. Branch NIFEdipine 2023-0 Yes 90mg Take 1 Un[facility] rs ER 90 mg 3-29 tablet by ity of tablet 00:00: mouth in [place] 00 the Medical morning. Branch NIFEdipine 2023-0 Yes 90mg Take 1 Unive rs ER 90 mg 3-29 tablet by ity of tablet 00:00: mouth in [place] 00 the Medical morning. Branch NIFEdipine 2023-0 Yes 90mg Take 1 Un[facility] rs ER 90 mg 3-29 tablet by ity of tablet 00:00: mouth in [place] 00 the Medical morning. Branch NIFEdipine 2023-0 Yes 90mg Take 1 [facility] rs ER 90 mg 3-29 tablet by ity of tablet 00:00: mouth in [place] 00 the Medical morning. Branch NIFEdipine 2023-0 Yes 90mg Take 1 [facility] rs ER 90 mg 3-29 tablet by ity of tablet 00:00: mouth in [place] 00 the Medical morning. Branch NIFEdipine 2023-0 Yes 90mg Take 1 Un[facility] rs ER 90 mg 3-29 tablet by ity of tablet 00:00: mouth in [place] 00 the Medical morning. Branch NIFEdipine 2023-0 Yes 90mg Take 1 Un[facility] rs ER 90 mg 3-29 tablet by ity of tablet 00:00: mouth in [place] 00 the Medical morning. Branch NIFEdipine 2023-0 Yes 90mg Take 1 Un[facility] rs ER 90 mg 3-29 tablet by ity of tablet 00:00: mouth in [place] 00 the Medical morning. Branch NIFEdipine 2023-0 Yes 90mg Take 1 Unive rs ER 90 mg 3-29 tablet by ity of tablet 00:00: mouth in [place] the Medical morning. Branch NIFEdipine 2023-0 Yes 90mg Take 1 Un[facility] rs ER 90 mg 3-29 tablet by ity of tablet 00:00: mouth in [place] the Medical morning. Branch NIFEdipine 2023-0 Yes 90mg Take 1 Un[facility] rs ER 90 mg 3-29 tablet by ity of tablet 00:00: mouth in [place] the Medical morning. Branch NIFEdipine 2023-0 Yes 90mg Take 1 Unive rs ER 90 mg 3-29 tablet by ity of tablet 00:00: mouth in [place] the Medical morning. Branch NIFEdipine 2023-0 Yes 90mg Take 1 Unive rs ER 90 mg 3-29 tablet by ity of tablet 00:00: mouth in [place] the Medical morning. Branch NIFEdipine 2023-0 Yes 90mg Take 1 Unive rs ER 90 mg 3-29 tablet by ity of tablet 00:00: mouth in [place] the Medical morning. Branch NIFEdipine 2023-0 Yes 90mg Take 1 Unive rs ER 90 mg 3-29 tablet by ity of tablet 00:00: mouth in [place] the Medical morning. Branch NIFEdipine 2023-0 Yes 90mg Take 1 Unive rs ER 90 mg 3-29 tablet by ity of tablet 00:00: mouth in [place] the Medical morning. Branch NIFEdipine 2023-0 Yes 90mg Take 1 [facility]ive rs ER 90 mg 3-29 tablet by ity of tablet 00:00: mouth in [place] the Medical morning. Branch NIFEdipine 2023-0 Yes 90mg Take 1 Unive rs ER 90 mg 3-29 tablet by ity of tablet 00:00: mouth in [place] the Medical morning. Branch NIFEdipine 2023-0 Yes 90mg Take 1 [facility] rs ER 90 mg 3-29 tablet by ity of tablet 00:00: mouth in [place] the Medical morning. Branch NIFEdipine 2023-0 Yes 90mg Take 1 [facility] rs ER 90 mg 3-29 tablet by ity of tablet 00:00: mouth in [place] the Medical morning. Branch NIFEdipine 2023-0 Yes 90mg Take 1 Unive rs ER 90 mg 3-29 tablet by ity of tablet 00:00: mouth in [place] the Medical morning. Branch NIFEdipine 2023-0 Yes 90mg Take 1 Unive rs ER 90 mg 3-29 tablet by ity of tablet 00:00: mouth in [place] the Medical morning. Branch NIFEdipine 2023-0 Yes 90mg Take 1 Unive rs ER 90 mg 3-29 tablet by ity of tablet 00:00: mouth in [place] the Medical morning. Branch NIFEdipine 2023-0 Yes 90mg Take 1 Unive rs ER 90 mg 3-29 tablet by ity of tablet 00:00: mouth in [place] the Medical morning. Branch NIFEdipine 2023-0 Yes 90mg Take 1 Unive rs ER 90 mg 3-29 tablet by ity of tablet 00:00: mouth in [place] the Medical morning. Branch NIFEdipine 2023-0 Yes 90mg Take 1 Unive rs ER 90 mg 3-29 tablet by ity of tablet 00:00: mouth in [place] the Medical morning. Branch NIFEdipine 2023-0 Yes 90mg Take 1 Unive rs ER 90 mg 3-29 tablet by ity of tablet 00:00: mouth in [place] the Medical morning. Branch NIFEdipine 2023-0 Yes 90mg Take 1 Unive rs ER 90 mg 3-29 tablet by ity of tablet 00:00: mouth in [place] the Medical morning. Branch NIFEdipine 2023-0 Yes 90mg Take 1 Unive rs ER 90 mg 3-29 tablet by ity of tablet 00:00: mouth in [place] the Medical morning. Branch NIFEdipine 2023-0 Yes 90mg Take 1 Unive rs ER 90 mg 3-29 tablet by ity of tablet 00:00: mouth in [place] the Medical morning. Branch NIFEdipine 2023-0 Yes 90mg Take 1 Unive rs ER 90 mg 3-29 tablet by ity of tablet 00:00: mouth in [place] the Medical morning. Branch NIFEdipine 2023-0 Yes 90mg Take 1 Unive rs ER 90 mg 3-29 tablet by ity of tablet 00:00: mouth in [place] the Medical morning. Branch NIFEdipine 2023-0 Yes 90mg Take 1 Unive rs ER 90 mg 3-29 tablet by ity of tablet 00:00: mouth in [place] the Medical morning. Branch NIFEdipine 2023-0 Yes 90mg Take 1 Unive rs ER 90 mg 3-29 tablet by ity of tablet 00:00: mouth in [place] 00 the Medical morning. Branch NIFEdipine 2023-0 Yes 90mg Take 1 Unive rs ER 90 mg 3-29 tablet by ity of tablet 00:00: mouth in [place] 00 the Medical morning. Branch NIFEdipine 2023-0 Yes 90mg Take 1 Unive rs ER 90 mg 3-29 tablet by ity of tablet 00:00: mouth in [place] 00 the Medical morning. Branch NIFEdipine 2023-0 Yes 90mg Take 1 Unive rs ER 90 mg 3-29 tablet by ity of tablet 00:00: mouth in [place] 00 the Medical morning. Branch NIFEdipine 2023-0 Yes 90mg Take 1 Unive rs ER 90 mg 3-29 tablet by ity of tablet 00:00: mouth in [place] 00 the Medical morning. Branch NIFEdipine 2023-0 Yes 90mg Take 1 Unive rs ER 90 mg 3-29 tablet by ity of tablet 00:00: mouth in [place] 00 the Medical morning. Branch NIFEdipine 2023-0 Yes 90mg Take 1 Unive rs ER 90 mg 3-29 tablet by ity of tablet 00:00: mouth in [place] 00 the Medical morning. Branch NIFEdipine 2023-0 2023- No 90mg Take 1 Univ ers ER 90 mg 3-29 08-17 tablet by ity o f tablet 00:00: 00:00 mouth in [place] 00 :00 the Medical morning. Branch amitriptyli 2023-0 Yes 50mg Take 1 Univ ers ne 50 mg 2-08 tablet by ity of tablet 00:00: mouth at [place] 00 bedtime as Medical needed for Branch Insomnia. amitriptyli 2023-0 Yes 50mg Take 1 Univ ers ne 50 mg 2-08 tablet by ity of tablet 00:00: mouth at [place] 00 bedtime as Medical needed for Branch Insomnia. amitriptyli 2023-0 Yes 50mg Take 1 Univ ers ne 50 mg 2-08 tablet by ity of tablet 00:00: mouth at [place] 00 bedtime as Medical needed for Branch Insomnia. amitriptyli 2023-0 Yes 50mg Take 1 Univ ers ne 50 mg 2-08 tablet by ity of tablet 00:00: mouth at [place] 00 bedtime as Medical needed for Branch Insomnia. amitriptyli 2023-0 Yes 50mg Take 1 Univ ers ne 50 mg 2-08 tablet by ity of tablet 00:00: mouth at [place] 00 bedtime as Medical needed for Branch Insomnia. amitriptyli 2023-0 Yes 50mg Take 1 Univ ers ne 50 mg 2-08 tablet by ity of tablet 00:00: mouth at [place] 00 bedtime as Medical needed for Branch Insomnia. amitriptyli 2023-0 Yes 50mg Take 1 Univ ers ne 50 mg 2-08 tablet by ity of tablet 00:00: mouth at [place] 00 bedtime as Medical needed for Branch Insomnia. amitriptyli 2023-0 Yes 50mg Take 1 Univ ers ne 50 mg 2-08 tablet by ity of tablet 00:00: mouth at [place] 00 bedtime as Medical needed for Branch Insomnia. amitriptyli 2023-0 Yes 50mg Take 1 Univ ers ne 50 mg 2-08 tablet by ity of tablet 00:00: mouth at [place] 00 bedtime as Medical needed for Branch Insomnia. amitriptyli 2023-0 Yes 50mg Take 1 Univ ers ne 50 mg 2-08 tablet by ity of tablet 00:00: mouth at [place] 00 bedtime as Medical needed for Branch Insomnia. amitriptyli 2023-0 Yes 50mg Take 1 Univ ers ne 50 mg 2-08 tablet by ity of tablet 00:00: mouth at [place] 00 bedtime as Medical needed for Branch Insomnia. amitriptyli 2023-0 Yes 50mg Take 1 Univ ers ne 50 mg 2-08 tablet by ity of tablet 00:00: mouth at [place] 00 bedtime as Medical needed for Branch Insomnia. amitriptyli 2023-0 Yes 50mg Take 1 Univ ers ne 50 mg 2-08 tablet by ity of tablet 00:00: mouth at [place] 00 bedtime as Medical needed for Branch Insomnia. amitriptyli 2023-0 Yes 50mg Take 1 Univ ers ne 50 mg 2-08 tablet by ity of tablet 00:00: mouth at [place] 00 bedtime as Medical needed for Branch Insomnia. ALPRAZolam 2023-0 Yes .25mg Take 0.25 U nivers 0.25 mg 1-26 mg by ity of tablet 10:27: mouth 2 [place] 05 (two) Medical times Branch daily. Insulin 2023-0 Yes 20U inject 20 Unive rs Lispro, 1-26 Units ity of Human, 100 10:27: under the [place] unit/mL 05 skin 2 Medical cartridge (two) Branch times daily. NIFEdipine 2023-0 Yes 90mg Take 90 mg U nivers CC 90 mg SR -26 by mouth 2 it y of tablet 10:27: (two) [place] 05 times Medical daily. Branch Insulin 2023-0 Yes 25U inject 25 Unive rs Glargine 1-26 Units ity of 100 unit/mL 10:27: under the [place] (3 mL) 05 skin. Medical injection Branch amLODIPine 3-0 Yes 10mg Take 10 mg U nivers 10 mg 1-26 by mouth ity of tablet 10:27: daily. [place] [address] Medical Branch aspirin 81 3-0 Yes 81mg Take 81 mg U nivers mg EC 1-26 by mouth ity of tablet 10:27: daily. [place] [address] Medical Branch sevelamer 3-0 Yes 800mg Take 800 Uni vers 800 mg 1-26 mg by ity of tablet 10:27: mouth 3 [place] [address] (three) Medical times Branch daily with meals. ALPRAZolam 3-0 Yes .25mg Take 0.25 U nivers 0.25 mg 1-26 mg by ity of tablet 10:27: mouth 2 [place] [address] (two) Medical times Branch daily. Insulin 2022-0 Yes 20U inject 20 Unive rs Lispro, 1-26 Units ity of Human, 100 10:27: under the [place] unit/mL 05 skin 2 Medical cartridge (two) Branch times daily. NIFEdipine 2022-0 Yes 90mg Take 90 mg U nivers CC 90 mg SR 1-26 by mouth 2 it y of tablet 10:27: (two) [place] [address] times Medical daily. Branch Insulin 3-0 Yes 25U inject 25 Unive rs Glargine 1-26 Units ity of 100 unit/mL 10:27: under the [place] (3 mL) 05 skin. Medical injection Branch amLODIPine 3-0 Yes 10mg Take 10 mg U nivers 10 mg 1-26 by mouth ity of tablet 10:27: daily. [place] [address] Medical Branch aspirin 81 3-0 Yes 81mg Take 81 mg U nivers mg EC 1-26 by mouth ity of tablet 10:27: daily. [place] [address] Medical Branch sevelamer 2023-0 Yes 800mg Take 800 Uni vers 800 mg 1-26 mg by ity of tablet 10:27: mouth 3 [place] [address] (three) Medical times Branch daily with meals. ALPRAZolam 2023-0 Yes .25mg Take 0.25 U nivers 0.25 mg 1-26 mg by ity of tablet 10:27: mouth 2 [place] [address] (two) Medical times Branch daily. Insulin 2023-0 Yes 20U inject 20 Unive rs Lispro, 1-26 Units ity of Human, 100 10:27: under the [place] unit/mL 05 skin 2 Medical cartridge (two) Branch times daily. NIFEdipine 2023-0 Yes 90mg Take 90 mg U nivers CC 90 mg SR 1-26 by mouth 2 it y of tablet 10:27: (two) [place] [address] times Medical daily. Branch Insulin 2023-0 Yes 25U inject 25 Unive rs Glargine 1-26 Units ity of 100 unit/mL 10:27: under the [place] (3 mL) 05 skin. Medical injection Branch amLODIPine 2023-0 Yes 10mg Take 10 mg U nivers 10 mg 1-26 by mouth ity of tablet 10:27: daily. [place] [address] Medical Branch aspirin 81 2023-0 Yes 81mg Take 81 mg U nivers mg EC 1-26 by mouth ity of tablet 10:27: daily. [place] [address] Medical Branch sevelamer 3-0 Yes 800mg Take 800 Uni vers 800 mg 1-26 mg by ity of tablet 10:27: mouth 3 [place] [address] (three) Medical times Branch daily with meals. ALPRAZolam 2023-0 Yes .25mg Take 0.25 U nivers 0.25 mg 1-26 mg by ity of tablet 10:27: mouth 2 [place] [address] (two) Medical times Branch daily. Insulin 2023-0 Yes 20U inject 20 Unive rs Lispro, 1-26 Units ity of Human, 100 10:27: under the [place] unit/mL 05 skin 2 Medical cartridge (two) Branch times daily. NIFEdipine 2023-0 Yes 90mg Take 90 mg U nivers CC 90 mg SR 1-26 by mouth 2 it y of tablet 10:27: (two) [place] [address] times Medical daily. Branch Insulin 2023-0 Yes 25U inject 25 Unive rs Glargine 1-26 Units ity of 100 unit/mL 10:27: under the [place] (3 mL) 05 skin. Medical injection Branch amLODIPine 2023-0 Yes 10mg Take 10 mg U nivers 10 mg 1-26 by mouth ity of tablet 10:27: daily. [place] 05 Medical Branch aspirin 81 2023-0 Yes 81mg Take 81 mg U nivers mg EC 1-26 by mouth ity of tablet 10:27: daily. [address] Branch sevelamer 2023-0 Yes 800mg Take 800 Uni vers 800 mg 1-26 mg by ity of tablet 10:27: mouth 3 [place] [address] (three) Medical times Branch daily with meals. ALPRAZolam 2023-0 Yes .25mg Take 0.25 U nivers 0.25 mg 1-26 mg by ity of tablet 10:27: mouth 2 [place] [address] (two) Medical times Branch daily. Insulin 2023-0 Yes 20U inject 20 Unive rs Lispro, 1-26 Units ity of Human, 100 10:27: under the [place] unit/mL 05 skin 2 Medical cartridge (two) Branch times daily. NIFEdipine 3-0 Yes 90mg Take 90 mg U nivers CC 90 mg SR 1-26 by mouth 2 it y of tablet 10:27: (two) [place] [address] times Medical daily. Branch Insulin 3-0 Yes 25U inject 25 Unive rs Glargine 1-26 Units ity of 100 unit/mL 10:27: under the [place] (3 mL) 05 skin. Medical injection Branch amLODIPine 2022-0 Yes 10mg Take 10 mg U nivers 10 mg 1-26 by mouth ity of tablet 10:27: daily. [address] aspirin 81 3-0 Yes 81mg Take 81 mg U nivers mg EC 1-26 by mouth ity of tablet 10:27: daily. [address] sevelamer 3-0 Yes 800mg Take 800 Uni vers 800 mg 1-26 mg by ity of tablet 10:27: mouth 3 [place] [address] (three) Medical times Branch daily with meals. ALPRAZolam 2023-0 Yes .25mg Take 0.25 U nivers 0.25 mg 1-26 mg by ity of tablet 10:27: mouth 2 [place] [address] (two) Medical times Branch daily. Insulin 2023-0 Yes 20U inject 20 Unive rs Lispro, 1-26 Units ity of Human, 100 10:27: under the [place] unit/mL 05 skin 2 Medical cartridge (two) Branch times daily. NIFEdipine 2023-0 Yes 90mg Take 90 mg U nivers CC 90 mg SR 1-26 by mouth 2 it y of tablet 10:27: (two) [place] [address] times Medical daily. Branch Insulin 2023-0 Yes 25U inject 25 Unive rs Glargine 1-26 Units ity of 100 unit/mL 10:27: under the [place] (3 mL) 05 skin. Medical injection Branch amLODIPine 3-0 Yes 10mg Take 10 mg U nivers 10 mg 1-26 by mouth ity of tablet 10:27: daily. [place] [address] Medical Branch aspirin 81 3-0 Yes 81mg Take 81 mg U nivers mg EC 1-26 by mouth ity of tablet 10:27: daily. [place] [address] Medical Branch sevelamer 3-0 Yes 800mg Take 800 Uni vers 800 mg 1-26 mg by ity of tablet 10:27: mouth 3 [place] [address] (three) Medical times Branch daily with meals. ALPRAZolam 3-0 Yes .25mg Take 0.25 U nivers 0.25 mg 1-26 mg by ity of tablet 10:27: mouth 2 [place] [address] (two) Medical times Branch daily. Insulin 2022-0 Yes 20U inject 20 Unive rs Lispro, 1-26 Units ity of Human, 100 10:27: under the [place] unit/mL 05 skin 2 Medical cartridge (two) Branch times daily. NIFEdipine 2022-0 Yes 90mg Take 90 mg U nivers CC 90 mg SR 1- by mouth 2 it y of tablet 10:27: (two) [place] [address] times Medical daily. Branch Insulin 3-0 Yes 25U inject 25 Unive rs Glargine 1-26 Units ity of 100 unit/mL 10:27: under the [place] (3 mL) 05 skin. Medical injection Branch amLODIPine 3-0 Yes 10mg Take 10 mg U nivers 10 mg 1-26 by mouth ity of tablet 10:27: daily. [place] [address] Medical Branch aspirin 81 3-0 Yes 81mg Take 81 mg U nivers mg EC 1-26 by mouth ity of tablet 10:27: daily. [place] [address] Medical Branch sevelamer 2023-0 Yes 800mg Take 800 Uni vers 800 mg 1-26 mg by ity of tablet 10:27: mouth 3 [place] [address] (three) Medical times Branch daily with meals. ALPRAZolam 2023-0 Yes .25mg Take 0.25 U nivers 0.25 mg 1-26 mg by ity of tablet 10:27: mouth 2 [place] [address] (two) Medical times Branch daily. Insulin 2023-0 [...] by mouth ity of tablet 10:27: daily. [place] [address] Medical Branch aspirin 81 2023-0 Yes 81mg Take 81 mg U nivers mg EC - by mouth ity of tablet 10:27: daily. [place] [address] Medical Branch sevelamer 3-0 Yes 800mg Take 800 Uni vers 800 mg 1-26 mg by ity of tablet 10:27: mouth 3 [place] [address] (three) Medical times Branch daily with meals. ALPRAZolam 3-0 Yes .25mg Take 0.25 U nivers 0.25 mg 1-26 mg by ity of tablet 10:27: mouth 2 [place] [address] (two) Medical times Branch daily. Insulin 2023-0 Yes 20U inject 20 Unive rs Lispro, 1-26 Units ity of Human, 100 10:27: under the [place] unit/mL 05 skin 2 Medical cartridge (two) Branch times daily. NIFEdipine 2023-0 Yes 90mg Take 90 mg U nivers CC 90 mg SR 1-26 by mouth 2 it y of tablet 10:27: (two) [place] [address] times Medical daily. Branch Insulin 2023-0 Yes 25U inject 25 Unive rs Glargine 1-26 Units ity of 100 unit/mL 10:27: under the [place] (3 mL) 05 skin. Medical injection Branch amLODIPine 2023-0 Yes 10mg Take 10 mg U nivers 10 mg 1-26 by mouth ity of tablet 10:27: daily. [address] Branch aspirin 81 3-0 Yes 81mg Take 81 mg U nivers mg EC 1-26 by mouth ity of tablet 10:27: daily. [address] Branch sevelamer 2023-0 Yes 800mg Take 800 Uni vers 800 mg 1-26 mg by ity of tablet 10:27: mouth 3 [place] [address] (three) Medical times Branch daily with meals. ALPRAZolam 2023-0 Yes .25mg Take 0.25 U nivers 0.25 mg 1-26 mg by ity of tablet 10:27: mouth 2 [place] [address] (two) Medical times Branch daily. Insulin 2023-0 Yes 20U inject 20 Unive rs Lispro, 1-26 Units ity of Human, 100 10:27: under the [place] unit/mL 05 skin 2 Medical cartridge (two) Branch times daily. NIFEdipine 3-0 Yes 90mg Take 90 mg U nivers CC 90 mg SR 1-26 by mouth 2 it y of tablet 10:27: (two) [place] [address] times Medical daily. Branch Insulin 3-0 Yes 25U inject 25 Unive rs Glargine 1-26 Units ity of 100 unit/mL 10:27: under the [place] (3 mL) 05 skin. Medical injection Branch amLODIPine 3-0 Yes 10mg Take 10 mg U nivers 10 mg 1-26 by mouth ity of tablet 10:27: daily. [address] aspirin 81 3-0 Yes 81mg Take 81 mg U nivers mg EC 1-26 by mouth ity of tablet 10:27: daily. [address] Branch sevelamer 3-0 Yes 800mg Take 800 Uni vers 800 mg 1-26 mg by ity of tablet 10:27: mouth 3 [place] [address] (three) Medical times Branch daily with meals. ALPRAZolam 2023-0 Yes .25mg Take 0.25 U nivers 0.25 mg 1-26 mg by ity of tablet 10:27: mouth 2 [place] [address] (two) Medical times Branch daily. Insulin 2023-0 Yes 20U inject 20 Unive rs Lispro, 1-26 Units ity of Human, 100 10:27: under the [place] unit/mL 05 skin 2 Medical cartridge (two) Branch times daily. NIFEdipine 2023-0 Yes 90mg Take 90 mg U nivers CC 90 mg SR 1-26 by mouth 2 it y of tablet 10:27: (two) [place] [address] times Medical daily. Branch Insulin 2023-0 Yes 25U inject 25 Unive rs Glargine 1-26 Units ity of 100 unit/mL 10:27: under the [place] (3 mL) 05 skin. Medical injection Branch amLODIPine 3-0 Yes 10mg Take 10 mg U nivers 10 mg 1-26 by mouth ity of tablet 10:27: daily. [place] [address] Medical Branch aspirin 81 2022-0 Yes 81mg Take 81 mg U nivers mg EC 1-26 by mouth ity of tablet 10:27: daily. [place] [address] Medical Branch sevelamer 3-0 Yes 800mg Take 800 Uni vers 800 mg 1-26 mg by ity of tablet 10:27: mouth 3 [place] [address] (three) Medical times Branch daily with meals. ALPRAZolam 2022-0 Yes .25mg Take 0.25 U nivers 0.25 mg 1-26 mg by ity of tablet 10:27: mouth 2 [place] [address] (two) Medical times Branch daily. Insulin 2022-0 Yes 20U inject 20 Unive rs Lispro, 1-26 Units ity of Human, 100 10:27: under the [place] unit/mL 05 skin 2 Medical [facility] (two) Branch times daily. NIFEdipine 2022-0 Yes 90mg Take 90 mg U nivers CC 90 mg SR -26 by mouth 2 it y of tablet 10:27: (two) [place] [address] times Medical daily. Branch Insulin 3-0 Yes 25U inject 25 Unive rs Glargine 1-26 Units ity of 100 unit/mL 10:27: under the [place] (3 mL) 05 skin. Medical injection Branch amLODIPine 2022-0 Yes 10mg Take 10 mg U nivers 10 mg 1-26 by mouth ity of tablet 10:27: daily. [place] [address] Medical Branch aspirin 81 3-0 Yes 81mg Take 81 mg U nivers mg EC 1-26 by mouth ity of tablet 10:27: daily. [place] [address] Medical Branch sevelamer 3-0 Yes 800mg Take 800 Uni vers 800 mg 1-26 mg by ity of tablet 10:27: mouth 3 [place] [address] (three) Medical times Branch daily with meals. ALPRAZolam 2023-0 Yes .25mg Take 0.25 U nivers 0.25 mg 1-26 mg by ity of tablet 10:27: mouth 2 [place] [address] (two) Medical times Branch daily. Insulin 2023-0 Yes 20U inject 20 Unive rs Lispro, 1-26 Units ity of Human, 100 10:27: under the [place] unit/mL 05 skin 2 Medical cartridge (two) Branch times daily. NIFEdipine 2023-0 Yes 90mg Take 90 mg U nivers CC 90 mg SR 1-26 by mouth 2 it y of tablet 10:27: (two) [place] 05 times Medical daily. Branch Insulin 2023-0 Yes 25U inject 25 Unive rs Glargine 1-26 Units ity of 100 unit/mL 10:27: under the [place] (3 mL) 05 skin. Medical injection Branch amLODIPine 3-0 Yes 10mg Take 10 mg U nivers 10 mg 1-26 by mouth ity of tablet 10:27: daily. [place] [address] Medical Branch aspirin 81 2023-0 Yes 81mg Take 81 mg U nivers mg EC -26 by mouth ity of tablet 10:27: daily. [place] [address] Medical Branch sevelamer 3-0 Yes 800mg Take 800 Uni vers 800 mg 1-26 mg by ity of tablet 10:27: mouth 3 [place] [address] (three) Medical times Branch daily with meals. ALPRAZolam 2023-0 Yes .25mg Take 0.25 U nivers 0.25 mg 1-26 mg by ity of tablet 10:27: mouth 2 [place] [address] (two) Medical times Branch daily. Insulin 2023-0 Yes 20U inject 20 Unive rs Lispro, 1-26 Units ity of Human, 100 10:27: under the [place] unit/mL 05 skin 2 Medical cartridge (two) Branch times daily. NIFEdipine 2023-0 Yes 90mg Take 90 mg U nivers CC 90 mg SR 1-26 by mouth 2 it y of tablet 10:27: (two) [place] [address] times Medical daily. Branch Insulin 2023-0 Yes 25U inject 25 Unive rs Glargine 1-26 Units ity of 100 unit/mL 10:27: under the [place] (3 mL) 05 skin. Medical injection Branch amLODIPine 2023-0 Yes 10mg Take 10 mg U nivers 10 mg 1-26 by mouth ity of tablet 10:27: daily. [address] Branch aspirin 81 3-0 Yes 81mg Take 81 mg U nivers mg EC 1-26 by mouth ity of tablet 10:27: daily. [address] Branch sevelamer 2023-0 Yes 800mg Take 800 Uni vers 800 mg 1-26 mg by ity of tablet 10:27: mouth 3 [place] [address] (three) Medical times Branch daily with meals. ALPRAZolam 3-0 Yes .25mg Take 0.25 U nivers 0.25 mg 1-26 mg by ity of tablet 10:27: mouth 2 [place] [address] (two) Medical times Branch daily. Insulin 3-0 Yes 20U inject 20 Unive rs Lispro, 1-26 Units ity of Human, 100 10:27: under the [place] unit/mL 05 skin 2 Medical cartridge (two) Branch times daily. NIFEdipine 2022-0 Yes 90mg Take 90 mg U nivers CC 90 mg SR -26 by mouth 2 it y of tablet 10:27: (two) [place] [address] times Medical daily. Branch Insulin 3-0 Yes 25U inject 25 Unive rs Glargine 1-26 Units ity of 100 unit/mL 10:27: under the [place] (3 mL) 05 skin. Medical injection Branch amLODIPine 2022-0 Yes 10mg Take 10 mg U nivers 10 mg 1-26 by mouth ity of tablet 10:27: daily. [address] aspirin 81 3-0 Yes 81mg Take 81 mg U nivers mg EC 1-26 by mouth ity of tablet 10:27: daily. [address] Branch sevelamer 3-0 Yes 800mg Take 800 Uni vers 800 mg 1-26 mg by ity of tablet 10:27: mouth 3 [place] [address] (three) Medical times Branch daily with meals. ALPRAZolam 2023-0 Yes .25mg Take 0.25 U nivers 0.25 mg 1-26 mg by ity of tablet 10:27: mouth 2 [place] [address] (two) Medical times Branch daily. Insulin 2023-0 Yes 20U inject 20 Unive rs Lispro, 1-26 Units ity of Human, 100 10:27: under the [place] unit/mL 05 skin 2 Medical cartridge (two) Branch times daily. NIFEdipine 2023-0 Yes 90mg Take 90 mg U nivers CC 90 mg SR 1-26 by mouth 2 it y of tablet 10:27: (two) [place] [address] times Medical daily. Branch Insulin 2022-0 Yes 25U inject 25 Unive rs Glargine 1-26 Units ity of 100 unit/mL 10:27: under the [place] (3 mL) 05 skin. Medical injection Branch amLODIPine 2022-0 Yes 10mg Take 10 mg U nivers 10 mg 1-26 by mouth ity of tablet 10:27: daily. [place] [address] Medical Branch aspirin 81 2022-0 Yes 81mg Take 81 mg U nivers mg EC 1-26 by mouth ity of tablet 10:27: daily. [place] [address] Medical Branch sevelamer 3-0 Yes 800mg Take 800 Uni vers 800 mg 1-26 mg by ity of tablet 10:27: mouth 3 [place] [address] (three) Medical times Branch daily with meals. ALPRAZolam 3-0 Yes .25mg Take 0.25 U nivers 0.25 mg 1-26 mg by ity of tablet 10:27: mouth 2 [place] [address] (two) Medical times Branch daily. Insulin 2022-0 Yes 20U inject 20 Unive rs Lispro, 1-26 Units ity of Human, 100 10:27: under the [place] unit/mL 05 skin 2 Medical cartridge (two) Branch times daily. Insulin 3-0 Yes 25U inject 25 Unive rs Glargine 1-26 Units ity of 100 unit/mL 10:27: under the [place] (3 mL) 05 skin. Medical injection Branch aspirin 81 2022-0 Yes 81mg Take 81 mg U nivers mg EC 1-26 by mouth ity of tablet 10:27: daily. [place] [address] Medical Branch sevelamer 3-0 Yes 800mg Take 800 Uni vers 800 mg 1-26 mg by ity of tablet 10:27: mouth 3 [place] [address] (three) Medical times Branch daily with meals. ALPRAZolam 2023-0 Yes .25mg Take 0.25 U nivers 0.25 mg 1-26 mg by ity of tablet 10:27: mouth 2 [place] [address] (two) Medical times Branch daily. Insulin 2023-0 Yes 20U inject 20 Unive rs Lispro, 1-26 Units ity of Human, 100 10:27: under the [place] unit/mL 05 skin 2 Medical cartridge (two) Branch times daily. Insulin 2023-0 Yes 25U inject 25 Unive rs Glargine 1-26 Units ity of 100 unit/mL 10:27: under the [place] (3 mL) 05 skin. Medical injection Branch aspirin 81 2022-0 Yes 81mg Take 81 mg U nivers mg EC 1-26 by mouth ity of tablet 10:27: daily. [place] [address] Medical Branch sevelamer 3-0 Yes 800mg Take 800 Uni vers 800 mg 1-26 mg by ity of tablet 10:27: mouth 3 [place] [address] (three) Medical times Branch daily with meals. ALPRAZolam 3-0 Yes .25mg Take 0.25 U nivers 0.25 mg 1-26 mg by ity of tablet 10:27: mouth 2 [place] [address] (two) Medical times Branch daily. Insulin 3-0 Yes 20U inject 20 Unive rs Lispro, 1-26 Units ity of Human, 100 10:27: under the [place] unit/mL 05 skin 2 Medical cartridge (two) Branch times daily. Insulin 3-0 Yes 25U inject 25 Unive rs Glargine 1-26 Units ity of 100 unit/mL 10:27: under the [place] (3 mL) 05 skin. Medical injection Branch aspirin 81 3-0 Yes 81mg Take 81 mg U nivers mg EC 1-26 by mouth ity of tablet 10:27: daily. [place] [address] Medical Branch sevelamer 3-0 Yes 800mg Take 800 Uni vers 800 mg 1-26 mg by ity of tablet 10:27: mouth 3 [place] [address] (three) Medical times Branch daily with meals. ALPRAZolam 2023-0 Yes .25mg Take 0.25 U nivers 0.25 mg 1-26 mg by ity of tablet 10:27: mouth 2 [place] [address] (two) Medical times Branch daily. Insulin 2023-0 Yes 20U inject 20 Unive rs Lispro, 1-26 Units ity of Human, 100 10:27: under the [place] unit/mL 05 skin 2 Medical cartridge (two) Branch times daily. Insulin 2023-0 Yes 25U inject 25 Unive rs Glargine 1-26 Units ity of 100 unit/mL 10:27: under the [place] (3 mL) 05 skin. Medical injection Branch aspirin 81 3-0 Yes 81mg Take 81 mg U nivers mg EC 1-26 by mouth ity of tablet 10:27: daily. [place] [address] Medical Branch sevelamer 2023-0 Yes 800mg Take 800 Uni vers 800 mg 1-26 mg by ity of tablet 10:27: mouth 3 [place] [address] (three) Medical times Branch daily with meals. ALPRAZolam 2023-0 Yes .25mg Take 0.25 U nivers 0.25 mg 1-26 mg by ity of tablet 10:27: mouth 2 [place] [address] (two) Medical times Branch daily. Insulin 2023-0 Yes 20U inject 20 Unive rs Lispro, 1-26 Units ity of Human, 100 10:27: under the [place] unit/mL 05 skin 2 Medical cartridge (two) Branch times daily. Insulin 2023-0 Yes 25U inject 25 Unive rs Glargine 1-26 Units ity of 100 unit/mL 10:27: under the [place] (3 mL) 05 skin. Medical injection Branch aspirin 81 3-0 Yes 81mg Take 81 mg U nivers mg EC 1-26 by mouth ity of tablet 10:27: daily. [place] [address] Medical Branch sevelamer 3-0 Yes 800mg Take 800 Uni vers 800 mg 1-26 mg by ity of tablet 10:27: mouth 3 [place] [address] (three) Medical times Branch daily with meals. ALPRAZolam 2023-0 Yes .25mg Take 0.25 U nivers 0.25 mg 1-26 mg by ity of tablet 10:27: mouth 2 [place] [address] (two) Medical times Branch daily. Insulin 2023-0 Yes 20U inject 20 Unive rs Lispro, 1-26 Units ity of Human, 100 10:27: under the [place] unit/mL 05 skin 2 Medical cartridge (two) Branch times daily. Insulin 2023-0 Yes 25U inject 25 Unive rs Glargine 1-26 Units ity of 100 unit/mL 10:27: under the [place] (3 mL) 05 skin. Medical injection Branch aspirin 81 2023-0 Yes 81mg Take 81 mg U nivers mg EC 1-26 by mouth ity of tablet 10:27: daily. [place] [address] Medical Branch sevelamer 2023-0 Yes 800mg Take 800 Uni vers 800 mg 1-26 mg by ity of tablet 10:27: mouth 3 [place] [address] (three) Medical times Branch daily with meals. ALPRAZolam 2023-0 Yes .25mg Take 0.25 U nivers 0.25 mg 1-26 mg by ity of tablet 10:27: mouth 2 [place] [address] (two) Medical times Branch daily. Insulin 2023-0 Yes 20U inject 20 Unive rs Lispro, 1-26 Units ity of Human, 100 10:27: under the [place] unit/mL 05 skin 2 Medical cartridge (two) Branch times daily. Insulin 2023-0 Yes 25U inject 25 Unive rs Glargine 1-26 Units ity of 100 unit/mL 10:27: under the [place] (3 mL) 05 skin. Medical injection Branch sevelamer 2023-0 Yes 800mg Take 800 Uni vers 800 mg 1-26 mg by ity of tablet 10:27: mouth 3 [place] [address] (three) Medical times Branch daily with meals. ALPRAZolam 2023-0 Yes .25mg Take 0.25 U nivers 0.25 mg 1-26 mg by ity of tablet 10:27: mouth 2 [place] [address] (two) Medical times Branch daily. Insulin 2023-0 Yes 20U inject 20 Unive rs Lispro, 1-26 Units ity of Human, 100 10:27: under the [place] unit/mL 05 skin 2 Medical cartridge (two) Branch times daily. Insulin 2023-0 Yes 25U inject 25 Unive rs Glargine 1-26 Units ity of 100 unit/mL 10:27: under the [place] (3 mL) 05 skin. Medical injection Branch sevelamer 2023-0 Yes 800mg Take 800 Uni vers 800 mg 1-26 mg by ity of tablet 10:27: mouth 3 [place] [address] (three) Medical times Branch daily with meals. ALPRAZolam 2023-0 Yes .25mg Take 0.25 U nivers 0.25 mg 1-26 mg by ity of tablet 10:27: mouth 2 [place] [address] (two) Medical times Branch daily. Insulin 2023-0 Yes 20U inject 20 Unive rs Lispro, 1-26 Units ity of Human, 100 10:27: under the [place] unit/mL 05 skin 2 Medical cartridge (two) Branch times daily. Insulin 2023-0 Yes 25U inject 25 Unive rs Glargine 1-26 Units ity of 100 unit/mL 10:27: under the [place] (3 mL) 05 skin. Medical injection Branch sevelamer 2023-0 Yes 800mg Take 800 Uni vers 800 mg 1-26 mg by ity of tablet 10:27: mouth 3 [place] (three) Medical times Branch daily with meals. ALPRAZolam 2023-0 Yes .25mg Take 0.25 U nivers 0.25 mg 1-26 mg by ity of tablet 10:27: mouth 2 (two) Medical times Branch daily. Insulin 2023-0 Yes 20U inject 20 Unive rs Lispro, 1-26 Units ity of Human, 100 10:27: under the [place] unit/mL 05 skin 2 Medical cartridge (two) Branch times daily. Insulin 2023-0 Yes 25U inject 25 Unive rs Glargine 1-26 Units ity of 100 unit/mL 10:27: under the [place] (3 mL) 05 skin. Medical injection Branch sevelamer 2023-0 Yes 800mg Take 800 Uni vers 800 mg 1-26 mg by ity of tablet 10:27: mouth 3 [place] [address] (three) Medical times Branch daily with meals. ALPRAZolam 2023-0 Yes .25mg Take 0.25 U nivers 0.25 mg 1-26 mg by ity of tablet 10:27: mouth 2 [place] (two) Medical times Branch daily. Insulin 2023-0 Yes 20U inject 20 Unive rs Lispro, 1-26 Units ity of Human, 100 10:27: under the [place] unit/mL 05 skin 2 Medical cartridge (two) Branch times daily. Insulin 2023-0 Yes 25U inject 25 Unive rs Glargine 1-26 Units ity of 100 unit/mL 10:27: under the [place] (3 mL) 05 skin. Medical injection Branch sevelamer 2023-0 Yes 800mg Take 800 Uni vers 800 mg 1-26 mg by ity of tablet 10:27: mouth 3 [place] (three) Medical times Branch daily with meals. ALPRAZolam 2023-0 Yes .25mg Take 0.25 U nivers 0.25 mg 1-26 mg by ity of tablet 10:27: mouth 2 (two) Medical times Branch daily. Insulin 2023-0 Yes 20U inject 20 Unive rs Lispro, 1-26 Units ity of Human, 100 10:27: under the [place] unit/mL 05 skin 2 Medical cartridge (two) Branch times daily. Insulin 2023-0 Yes 25U inject 25 Unive rs Glargine 1-26 Units ity of 100 unit/mL 10:27: under the [place] (3 mL) 05 skin. Medical injection Branch sevelamer 2023-0 Yes 800mg Take 800 Uni vers 800 mg 1-26 mg by ity of tablet 10:27: mouth 3 (three) Medical times Branch daily with meals. ALPRAZolam 2023-0 Yes .25mg Take 0.25 U nivers 0.25 mg 1-26 mg by ity of tablet 10:27: mouth 2 (two) Medical times Branch daily. Insulin 2023-0 Yes 20U inject 20 Unive rs Lispro, 1-26 Units ity of Human, 100 10:27: under the [place] unit/mL 05 skin 2 Medical cartridge (two) Branch times daily. Insulin 2023-0 Yes 25U inject 25 Unive rs Glargine 1-26 Units ity of 100 unit/mL 10:27: under the [place] (3 mL) 05 skin. Medical injection Branch sevelamer 2023-0 Yes 800mg Take 800 Uni vers 800 mg 1-26 mg by ity of tablet 10:27: mouth 3 [place] [address] (three) Medical times Branch daily with meals. ALPRAZolam 2023-0 Yes .25mg Take 0.25 U nivers 0.25 mg 1-26 mg by ity of tablet 10:27: mouth 2 [place] [address] (two) Medical times Branch daily. Insulin 2023-0 Yes 20U inject 20 Unive rs Lispro, 1-26 Units ity of Human, 100 10:27: under the [place] unit/mL 05 skin 2 Medical cartridge (two) Branch times daily. Insulin 2023-0 Yes 25U inject 25 Unive rs Glargine 1-26 Units ity of 100 unit/mL 10:27: under the [place] (3 mL) 05 skin. Medical injection Branch sevelamer 2023-0 Yes 800mg Take 800 Uni vers 800 mg 1-26 mg by ity of tablet 10:27: mouth 3 [place] [address] (three) Medical times Branch daily with meals. ALPRAZolam 2023-0 Yes .25mg Take 0.25 U nivers 0.25 mg 1-26 mg by ity of tablet 10:27: mouth 2 (two) Medical times Branch daily. Insulin 2023-0 Yes 20U inject 20 Unive rs Lispro, 1-26 Units ity of Human, 100 10:27: under the [place] unit/mL 05 skin 2 Medical cartridge (two) Branch times daily. Insulin 2023-0 Yes 25U inject 25 Unive rs Glargine 1-26 Units ity of 100 unit/mL 10:27: under the [place] (3 mL) 05 skin. Medical injection Branch sevelamer 2023-0 Yes 800mg Take 800 Uni vers 800 mg 1-26 mg by ity of tablet 10:27: mouth 3 [place] [address] (three) Medical times Branch daily with meals. ALPRAZolam 2023-0 Yes .25mg Take 0.25 U nivers 0.25 mg 1-26 mg by ity of tablet 10:27: mouth 2 [place] [address] (two) Medical times Branch daily. Insulin 2023-0 Yes 20U inject 20 Unive rs Lispro, 1-26 Units ity of Human, 100 10:27: under the [place] unit/mL 05 skin 2 Medical cartridge (two) Branch times daily. Insulin 2023-0 Yes 25U inject 25 Unive rs Glargine 1-26 Units ity of 100 unit/mL 10:27: under the [place] (3 mL) 05 skin. Medical injection Branch sevelamer 2023-0 Yes 800mg Take 800 Uni vers 800 mg 1-26 mg by ity of tablet 10:27: mouth 3 [place] [address] (three) Medical times Branch daily with meals. ALPRAZolam 2023-0 Yes .25mg Take 0.25 U nivers 0.25 mg 1-26 mg by ity of tablet 10:27: mouth 2 [place] (two) Medical times Branch daily. Insulin 2023-0 Yes 20U inject 20 Unive rs Lispro, 1-26 Units ity of Human, 100 10:27: under the [place] unit/mL 05 skin 2 Medical cartridge (two) Branch times daily. Insulin 2023-0 Yes 25U inject 25 Unive rs Glargine 1-26 Units ity of 100 unit/mL 10:27: under the [place] (3 mL) 05 skin. Medical injection Branch sevelamer 2023-0 Yes 800mg Take 800 Uni vers 800 mg 1-26 mg by ity of tablet 10:27: mouth 3 [place] (three) Medical times Branch daily with meals. Insulin 2023-0 Yes 20U inject 20 Unive rs Lispro, 1-26 Units ity of Human, 100 10:27: under the [place] unit/mL 05 skin 2 Medical cartridge (two) Branch times daily. Insulin 2023-0 Yes 25U inject 25 Unive rs Glargine 1-26 Units ity of 100 unit/mL 10:27: under the [place] (3 mL) 05 skin. Medical injection Branch sevelamer 3-0 Yes 800mg Take 800 Uni vers 800 mg 1-26 mg by ity of tablet 10:27: mouth 3 [place] [address] (three) Medical times Branch daily with meals. Insulin 3-0 Yes 20U inject 20 Unive rs Lispro, 1-26 Units ity of Human, 100 10:27: under the [place] unit/mL 05 skin 2 Medical cartridge (two) Branch times daily. Insulin 2023-0 Yes 25U inject 25 Unive rs Glargine 1-26 Units ity of 100 unit/mL 10:27: under the [place] (3 mL) 05 skin. Medical injection Branch sevelamer 3-0 Yes 800mg Take 800 Uni vers 800 mg 1-26 mg by ity of tablet 10:27: mouth 3 [place] [address] (three) Medical times Branch daily with meals. Insulin 2023-0 Yes 20U inject 20 Unive rs Lispro, 1-26 Units ity of Human, 100 10:27: under the [place] unit/mL 05 skin 2 Medical cartridge (two) Branch times daily. Insulin 2023-0 Yes 25U inject 25 Unive rs Glargine 1-26 Units ity of 100 unit/mL 10:27: under the [place] (3 mL) 05 skin. Medical injection Branch sevelamer 2023-0 Yes 800mg Take 800 Uni vers 800 mg 1-26 mg by ity of tablet 10:27: mouth 3 (three) Medical times Branch daily with meals. Insulin 2023-0 Yes 20U inject 20 Unive rs Lispro, 1-26 Units ity of Human, 100 10:27: under the [place] unit/mL 05 skin 2 Medical cartridge (two) Branch times daily. Insulin 2023-0 Yes 25U inject 25 Unive rs Glargine 1-26 Units ity of 100 unit/mL 10:27: under the [place] (3 mL) 05 skin. Medical injection Branch sevelamer 2023-0 Yes 800mg Take 800 Uni vers 800 mg 1-26 mg by ity of tablet 10:27: mouth 3 (three) Medical times Branch daily with meals. Insulin 2023-0 Yes 20U inject 20 Unive rs Lispro, 1-26 Units ity of Human, 100 10:27: under the [place] unit/mL 05 skin 2 Medical cartridge (two) Branch times daily. Insulin 2023-0 Yes 25U inject 25 Unive rs Glargine 1-26 Units ity of 100 unit/mL 10:27: under the [place] (3 mL) 05 skin. Medical injection Branch sevelamer 3-0 Yes 800mg Take 800 Uni vers 800 mg 1-26 mg by ity of tablet 10:27: mouth 3 (three) Medical times Branch daily with meals. Insulin 2023-0 Yes 20U inject 20 Unive rs Lispro, 1-26 Units ity of Human, 100 10:27: under the [place] unit/mL 05 skin 2 Medical cartridge (two) Branch times daily. Insulin 2023-0 Yes 25U inject 25 Unive rs Glargine 1-26 Units ity of 100 unit/mL 10:27: under the [place] (3 mL) 05 skin. Medical injection Branch sevelamer 2023-0 Yes 800mg Take 800 Uni vers 800 mg 1-26 mg by ity of tablet 10:27: mouth 3 (three) Medical times Branch daily with meals. Insulin 2023-0 Yes 20U inject 20 Unive rs Lispro, 1-26 Units ity of Human, 100 10:27: under the [place] unit/mL 05 skin 2 Medical cartridge (two) Branch times daily. Insulin 2023-0 Yes 25U inject 25 Unive rs Glargine 1-26 Units ity of 100 unit/mL 10:27: under the [place] (3 mL) 05 skin. Medical injection Branch sevelamer 2023-0 Yes 800mg Take 800 Uni vers 800 mg 1-26 mg by ity of tablet 10:27: mouth 3 [place] 05 (three) Medical times Branch daily with meals. Insulin 2023-0 Yes 20U inject 20 Unive rs Lispro, 1-26 Units ity of Human, 100 10:27: under the [place] unit/mL 05 skin 2 Medical cartridge (two) Branch times daily. Insulin 2023-0 Yes 25U inject 25 Unive rs Glargine 1-26 Units ity of 100 unit/mL 10:27: under the [place] (3 mL) 05 skin. Medical injection Branch sevelamer 2023-0 Yes 800mg Take 800 Uni vers 800 mg 1-26 mg by ity of tablet 10:27: mouth 3 (three) Medical times Branch daily with meals. Insulin 2023-0 Yes 20U inject 20 Unive rs Lispro, 1-26 Units ity of Human, 100 10:27: under the [place] unit/mL 05 skin 2 Medical cartridge (two) Branch times daily. Insulin 2023-0 Yes 25U inject 25 Unive rs Glargine 1-26 Units ity of 100 unit/mL 10:27: under the [place] (3 mL) 05 skin. Medical injection Branch sevelamer 2023-0 Yes 800mg Take 800 Uni vers 800 mg 1-26 mg by ity of tablet 10:27: mouth 3 [place] 05 (three) Medical times Branch daily with meals. [...] INSULIN) 100 unit/mL (3 mL) injection NIFEdipine 2022-0 Yes 90mg Take 90 mg U nivers CC 90 mg SR 9-26 by mouth 2 it y of tablet 14:03: (two) [place] 42 times Medical daily. Branch NIFEdipine 2022-0 Yes 90mg Take 90 mg U nivers CC 90 mg SR 9-26 by mouth 2 it y of tablet 14:03: (two) [place] 42 times Medical daily. Branch NIFEdipine 2021-0 Yes 90mg Take 90 mg U nivers CC 90 mg SR 9-26 by mouth 2 it y of tablet 14:03: (two) [place] 42 times Medical daily. Branch NIFEdipine 2-0 Yes 90mg Take 90 mg U nivers CC 90 mg SR 9-26 by mouth 2 it y of tablet 14:03: (two) [place] 42 times Medical daily. Branch NIFEdipine 2021-0 Yes 90mg Take 90 mg U nivers CC 90 mg SR 9-26 by mouth 2 it y of tablet 14:03: (two) [place] 42 times Medical daily. Branch amLODIPine 2021-0 Yes 10mg Take 10 mg U nivers 10 mg 9-26 by mouth ity of tablet 14:03: daily. [address] amLODIPine 2021-0 Yes 10mg Take 10 mg U nivers 10 mg 9-26 by mouth ity of tablet 14:03: daily. [address] amLODIPine 2021-0 Yes 10mg Take 10 mg U nivers 10 mg 9-26 by mouth ity of tablet 14:03: daily. [address] amLODIPine 2021-0 Yes 10mg Take 10 mg U nivers 10 mg 9-26 by mouth ity of tablet 14:03: daily. [address] amLODIPine 2021-0 Yes 10mg Take 10 mg U nivers 10 mg 9-26 by mouth ity of tablet 14:03: daily. [address] aspirin 81 2021-0 Yes 81mg Take 81 mg U nivers mg EC 9-26 by mouth ity of tablet 14:02: daily. [address] aspirin 81 2-0 Yes 81mg Take 81 mg U nivers mg EC 9-26 by mouth ity of tablet 14:02: daily. [address] aspirin 81 2-0 Yes 81mg Take 81 mg U nivers mg EC 9-26 by mouth ity of tablet 14:02: daily. [address] aspirin 81 2-0 Yes 81mg Take 81 mg U nivers mg EC 9-26 by mouth ity of tablet 14:02: daily. [address] aspirin 81 2-0 Yes 81mg Take 81 mg U nivers mg EC 9-26 by mouth ity of tablet 14:02: daily. [place] 00 Medical Branch sevelamer 2022-0 Yes 800mg Take [...] ity of 800 mg 14:01: mouth 3 [place] tablet 56 (three) Medical times Branch daily [...] Units ity of (BASAGLAR 09:13: under the [facility] as KWIKPEN 17 skin. Medical U-100 Branch INSULIN) 100 unit/mL (3 mL) injection amLODIPine 2021-0 Yes 10mg Take 10 mg U nivers 10 mg 1-13 by mouth ity of tablet 09:13: daily. [place] [address] Medical Branch aspirin 81 2022-0 Yes 81mg Take 81 mg U nivers mg EC 1-13 by mouth ity of tablet 09:13: daily. [address] Branch sevelamer 2021-0 Yes 800mg Take [...] 2 it y of tablet 09:13: (two) [place] [address] times Medical daily. Branch Insulin 2021-0 Yes 25U inject 25 Unive rs Glargine 1-13 Units ity of (BASAGLAR 09:13: under the [place] as KWIKPEN 17 skin. Medical U-100 Branch INSULIN) 100 unit/mL (3 mL) injection amLODIPine 2021-0 Yes 10mg Take 10 mg U nivers 10 mg 1-13 by mouth ity of tablet 09:13: daily. [address] Branch aspirin 81 2-0 Yes 81mg Take 81 mg U nivers mg EC 1-13 by mouth ity of tablet 09:13: daily. [address] sevelamer 2021-0 Yes 800mg Take 800 [...] mouth ity of tablet 09:13: daily. [address] Branch aspirin 81 2021-0 Yes 81mg Take 81 mg U nivers mg EC 1-13 by mouth ity of tablet 09:13: daily. [address] Branch sevelamer 2021-0 Yes 800mg Take 800 Uni vers (RENVELA) 1-13 mg by ity of 800 mg 09:13: mouth 3 [place] tablet 17 (three) Medical times Branch daily with meals. Insulin 2021-0 Yes 20U inject 20 Unive rs Lispro, 1-13 Units ity of Human, 09:13: under the [place] (CipherMaxALOG) 17 skin 2 Medical 100 unit/mL (two) Branch cartridge times daily. Insulin 2021-0 Yes 20U inject 20 Unive rs Lispro, 1-13 Units ity of Human, 09:13: under the [place] ([employer]MaxALOG) 17 skin 2 Medical 100 unit/mL (two) Branch cartridge times daily. Insulin 2021-0 Yes 20U inject 20 Unive rs Lispro, 1-13 Units ity of Human, 09:13: under the [place] ([employer]ipherMaxALOG) 17 skin 2 Medical 100 unit/mL (two) Branch cartridge times daily. Insulin 2021-0 Yes 20U inject 20 Unive rs Lispro, 1-13 Units ity of Human, 09:13: under the [place] ([employer]) 17 skin 2 Medical 100 unit/mL (two) Branch cartridge times daily. Insulin 2021-0 Yes 20U inject 20 Unive rs Lispro, 1-13 Units ity of Human, 09:13: under the [place] (CipherMaxALOG) 17 skin 2 Medical 100 unit/mL (two) Branch cartridge times daily. sevelamer 202-0 2022- No 2400mg Take 2,400 Univers 800 mg 1-13 01-13 mg by ity of tablet 09:13: 00:00 mouth 3 [place] 15 :00 (three) Medical times Branch daily with meals. sevelamer 2021-0 202- No 2400mg Take 2,400 Univers 800 mg -13 01-13 mg by ity of tablet 09:13: 00:00 mouth 3 [place] 15 :00 (three) Medical times Branch daily with meals. atorvastati 2018-03 Yes [id number] 40mg Take 1 Univers n 40 mg 1-19 tablet by ity of tablet 00:00: mouth at [place] 00 bedtime. Medical Branch atorvastati 2018-03 Yes [id number] 40mg Take 1 Univers n 40 mg 1-19 tablet by ity of tablet 00:00: mouth at [place] 00 bedtime. Medical Branch atorvastati 2018-03 Yes [id number] 40mg Take 1 Univers n 40 mg 1-19 tablet by ity of tablet 00:00: mouth at [place] 00 bedtime. Medical Branch atorvastati 2018-03 Yes [id number] 40mg Take 1 Univers n 40 mg 1-19 tablet by ity of tablet 00:00: mouth at [place] 00 bedtime. Medical Branch atorvastati 2018-03 Yes [id number] 40mg Take 1 Univers n 40 mg 1-19 tablet by ity of tablet 00:00: mouth at [place] 00 bedtime. Medical Branch atorvastati 2018-03 Yes [id number] 40mg Take 1 Univers n 40 mg 1-19 tablet by ity of tablet 00:00: mouth at [place] [address] bedtime. Medical Branch atorvastati 2018-03 Yes [id number] 40mg Take 1 Univers n 40 mg 1-19 tablet by ity of tablet 00:00: mouth at [place] 00 bedtime. Medical Branch atorvastati 2018-03 Yes [id number] 40mg Take 1 Univers n 40 mg 1-19 tablet by ity of tablet 00:00: mouth at [place] 00 bedtime. Medical Branch atorvastati 2018-03 Yes [id number] 40mg Take 1 Univers n 40 mg 1-19 tablet by ity of tablet 00:00: mouth at [place] 00 bedtime. Medical Branch atorvastati 2018-03 Yes [id number] 40mg Take 1 Univers n 40 mg 1-19 tablet by ity of tablet 00:00: mouth at [place] 00 bedtime. Medical Branch atorvastati 2018-03 Yes [id number] 40mg Take 1 Univers n 40 mg 1-19 tablet by ity of tablet 00:00: mouth at [place] 00 bedtime. [facility] Yes [id number] 40mg Take 1 Univers n 40 mg 1-19 tablet by ity of tablet 00:00: mouth at [place] 00 bedtime. [facility] Yes [id number] 40mg Take 1 Univers n 40 mg 1-19 tablet by ity of tablet 00:00: mouth at [place] 00 [facility]. [facility] Yes [id number] 40mg Take 1 Univers n 40 mg 1-19 tablet by ity of tablet 00:00: mouth at [place] 00 bedtime. [facility] Yes [id number] 40mg Take 1 Univers n 40 mg 1-19 tablet by ity of tablet 00:00: mouth at [place] 00 bedtime. [facility] Yes [id number] 40mg Take 1 Univers n 40 mg 1-19 tablet by ity of tablet 00:00: mouth at [place] 00 [facility]time. [facility] Yes [id number] 40mg Take 1 Univers n 40 mg 1-19 tablet by ity of tablet 00:00: mouth at [place] 00 bedtime. [facility] Yes [id number] 40mg Take 1 Univers n 40 mg 1-19 tablet by ity of tablet 00:00: mouth at [place] 00 bedtime. Medical Branch atorvasta 2018-03 Yes [id number] 40mg Take 1 Univers n 40 mg 1-19 tablet by ity of tablet 00:00: mouth at [place] 00 bedtime. Medical Branch atorvasta 2018-03 Yes [id number] 40mg Take 1 Univers n 40 mg 1-19 tablet by ity of tablet 00:00: mouth at [place] 00 bedtime. Medical Branch atorvasta 2018-03 Yes [id number] 40mg Take 1 Univers n 40 mg 1-19 tablet by ity of tablet 00:00: mouth at [place] 00 bedtime. Medical Branch atorvasta 2018-03 Yes [id number] 40mg Take 1 Univers n 40 mg 1-19 tablet by ity of tablet 00:00: mouth at [place] 00 bedtime. Medical Branch atorvasta 2018-03 Yes [id number] 40mg Take 1 Univers n 40 mg 1-19 tablet by ity of tablet 00:00: mouth at [place] 00 bedtime. Medical Branch atorvasta 2018-03 Yes [id number] 40mg Take 1 Univers n 40 mg 1-19 tablet by ity of tablet 00:00: mouth at [place] 00 bedtime. Medical Branch atorvasta 2018-03 Yes [id number] 40mg Take 1 Univers n 40 mg 1-19 tablet by ity of tablet 00:00: mouth at [place] 00 bedtime. Medical Branch atorvasta 2018-03 Yes [id number] 40mg Take 1 Univers n 40 mg 1-19 tablet by ity of tablet 00:00: mouth at [place] 00 bedtime. Medical Branch atorvasta 2018-03 Yes [id number] 40mg Take 1 Univers n 40 mg 1-19 tablet by ity of tablet 00:00: mouth at [place] 00 bedtime. Medical Branch atorvasta 2018-03 Yes [id number] 40mg Take 1 Univers n 40 mg 1-19 tablet by ity of tablet 00:00: mouth at [place] 00 bedtime. Medical Branch atorvasta 2018-03 Yes [id number] 40mg Take 1 Univers n 40 mg 1-19 tablet by ity of tablet 00:00: mouth at [place] 00 bedtime. Medical Branch atorvasta 2018-03 Yes [id number] 40mg Take 1 Univers n 40 mg 1-19 tablet by ity of tablet 00:00: mouth at [place] 00 bedtime. Medical Branch atorvasta 2018-03- No [id number] 40mg Take 1 Univers n 40 mg 1-19 04-19 tablet by ity of tablet 00:00: 00:00 mouth at [place] 00 :00 bedtime. Medical Branch atorvasta 2018-03- No [id number] 40mg Take 1 Univers n 40 mg 1-19 04-19 tablet by ity of tablet 00:00: 00:00 mouth at [place] 00 :00 bedtime. Medical Branch atorvasta 2018-03- No [id number] 40mg Take 1 Univers n 40 mg 1-19 04-19 tablet by ity of tablet 00:00: 00:00 mouth at [place] 00 :00 bedtime. Medical Branch tiZANidine Yes Univers 2 mg tablet 4-26 ity of 00:00: [place] 00 Medical Branch tiZANidine Yes Univers 2 mg tablet 4-26 ity of 00:00: [place] Medical Branch tiZANidine 2019-0 Yes Univers 2 mg tablet 4-26 ity of 00:00: [place] [address] Medical Branch tiZANidine 2019-0 Yes Univers 2 mg tablet 4-26 ity of 00:00: [place] [address] Medical Branch tiZANidine 2019-0 Yes Univers 2 mg tablet 4-26 ity of 00:00: [place] Medical Branch tiZANidine 2019-0 Yes Univers 2 mg tablet 4-26 ity of 00:00: [place] [address] Medical Branch tiZANidine 2019-0 Yes Univers 2 mg tablet 4-26 ity of 00:00: [place] [address] Medical Branch tiZANidine 2019-0 Yes Univers 2 mg tablet 4-26 ity of 00:00: [place] [address] Medical Branch tiZANidine 2019-0 Yes Univers 2 mg tablet 4-26 ity of 00:00: [place] [address] Medical Branch tiZANidine 2019-0 Yes Univers 2 mg tablet 4-26 ity of 00:00: [place] [address] Medical Branch tiZANidine 2019-0 Yes Univers 2 mg tablet 4-26 ity of 00:00: [place] [address] Medical Branch tiZANidine 2019-0 Yes Univers 2 mg tablet 4-26 ity of 00:00: [place] [address] Medical Branch tiZANidine 2019-0 Yes Univers 2 mg tablet 4-26 ity of 00:00: [place] [address] Medical Branch tiZANidine 2019-0 Yes Univers 2 mg tablet 4-26 ity of 00:00: [place] [address] Medical Branch tiZANidine 2019-0 Yes Univers 2 mg tablet 4-26 ity of 00:00: [place] [address] Medical Branch tiZANidine 2019-0 Yes Univers 2 mg tablet 4-26 ity of 00:00: [place] [address] Medical Branch tiZANidine 2019-0 Yes Univers 2 mg tablet 4-26 ity of 00:00: [place] [address] Medical Branch tiZANidine 2019-0 Yes Univers 2 mg tablet 4-26 ity of 00:00: [place] [address] Medical Branch tiZANidine 2019-0 Yes Univers 2 mg tablet 4-26 ity of 00:00: [place] [address] Medical Branch tiZANidine 2019-0 Yes Univers 2 mg tablet 4-26 ity of 00:00: [place] [address] Medical Branch tiZANidine 2019-0 Yes Univers 2 mg tablet 4-26 ity of 00:00: [place] [address] Medical Branch tiZANidine 2019-0 Yes Univers 2 mg tablet 4-26 ity of 00:00: [place] [address] Medical Branch tiZANidine 2019-0 Yes Univers 2 mg tablet 4-26 ity of 00:00: [place] [address] Medical Branch tiZANidine 2019-0 Yes Univers 2 mg tablet 4-26 ity of 00:00: [place] [address] Medical Branch tiZANidine 2019-0 Yes Univers 2 mg tablet 4-26 ity of 00:00: [place] [address] Medical Branch tiZANidine 2019-0 Yes Univers 2 mg tablet 4-26 ity of 00:00: [place] [address] Medical Branch tiZANidine 2019-0 Yes Univers 2 mg tablet 4-26 ity of 00:00: [place] [address] Medical Branch tiZANidine 2019-0 Yes Univers 2 mg tablet 4-26 ity of 00:00: [place] [address] Medical Branch tiZANidine 2019-0 Yes Univers 2 mg tablet 4-26 ity of 00:00: [place] [address] Medical Branch tiZANidine 2019-0 Yes Univers 2 mg tablet 4-26 ity of 00:00: [place] [address] Medical Branch tiZANidine 2019-0 Yes Univers 2 mg tablet 4-26 ity of 00:00: [place] [address] Medical Branch tiZANidine 2019-0 Yes Univers 2 mg tablet 4-26 ity of 00:00: [place] [address] Medical Branch tiZANidine 2019-0 Yes Univers 2 mg tablet 4-26 ity of 00:00: [place] [address] Medical Branch tiZANidine 2019-0 Yes Univers 2 mg tablet 4-26 ity of 00:00: [place] [address] Medical Branch tiZANidine 2019-0 Yes Univers 2 mg tablet 4-26 ity of 00:00: [place] [address] Medical Branch tiZANidine 2019-0 Yes Univers 2 mg tablet 4-26 ity of 00:00: [place] [address] Medical Branch tiZANidine 2019-0 Yes Univers 2 mg tablet 4-26 ity of 00:00: [place] [address] Medical Branch tiZANidine 2019-0 Yes Univers 2 mg tablet 4-26 ity of 00:00: [place] [address] Medical Branch tiZANidine 2019-0 Yes Univers 2 mg tablet 4-26 ity of 00:00: [place] [address] Medical Branch tiZANidine 2019-0 Yes Univers 2 mg tablet 4-26 ity of 00:00: [place] [address] Medical Branch tiZANidine 2019-0 Yes Univers 2 mg tablet 4-26 ity of 00:00: [place] [address] Medical Branch tiZANidine 2019-0 Yes Univers 2 mg tablet 4-26 ity of 00:00: [place] Medical Branch tiZANidine 2019-0 Yes Univers 2 mg tablet 4-26 ity of 00:00: [place] [address] Medical Branch tiZANidine 2019-0 Yes Univers 2 mg tablet 4-26 ity of 00:00: [place] [address] Medical Branch tiZANidine 2019-0 Yes Univers 2 mg tablet 4-26 ity of 00:00: [place] [address] Medical Branch tiZANidine 2019-0 Yes Univers 2 mg tablet 4-26 ity of 00:00: [place] [address] Medical Branch tiZANidine 2019-0 Yes Univers 2 mg tablet 4-26 ity of 00:00: [place] [address] Medical Branch tiZANidine 2019-0 Yes Univers 2 mg tablet 4-26 ity of 00:00: [place] [address] Medical Branch tiZANidine 2019-0 Yes Univers 2 mg tablet 4-26 ity of 00:00: [place] [address] Medical Branch tiZANidine 2019-0 Yes Univers 2 mg tablet 4-26 ity of 00:00: [place] [address] Medical Branch tiZANidine 2019-0 Yes Univers 2 mg tablet 4-26 ity of 00:00: [place] [address] Medical Branch tiZANidine 2019-0 Yes Univers 2 mg tablet 4-26 ity of 00:00: [place] [address] Medical Branch tiZANidine 2019-0 Yes Univers 2 mg tablet 4-26 ity of 00:00: [place] [address] Medical Branch tiZANidine 2019-0 Yes Univers 2 mg tablet 4-26 ity of 00:00: [place] [address] Medical Branch tiZANidine 2019-0 Yes Univers 2 mg tablet 4-26 ity of 00:00: [place] [address] Medical Branch tiZANidine 2019-0 Yes Univers 2 mg tablet 4-26 ity of 00:00: [place] [address] Medical Branch tiZANidine 2019-0 Yes Univers 2 mg tablet 4-26 ity of 00:00: [place] [address] Medical Branch tiZANidine 2019-0 Yes Univers 2 mg tablet 4-26 ity of 00:00: [place] [address] Medical Branch tiZANidine 2019-0 Yes Univers 2 mg tablet 4-26 ity of 00:00: [place] [address] Medical Branch tiZANidine 2019-0 Yes Univers 2 mg tablet 4-26 ity of 00:00: [place] Medical Branch tiZANidine 2019-0 Yes Univers 2 mg tablet 4-26 ity of 00:00: [place] [facility] Branch tiZANidine 2019-0 Yes Univers 2 mg tablet 4-26 ity of 00:00: [place] [facility] tiZANidine 2019-0 Yes Univers 2 mg tablet 4-26 ity of 00:00: [place] [facility] Branch tiZANidine 2019-0 Yes Univers 2 mg tablet 4-26 ity of 00:00: [place] [facility] Branch tiZANidine 2019-0 Yes Univers 2 mg tablet 4-26 ity of 00:00: [place] [facility] Branch tiZANidine 2019-0 Yes Univers 2 mg tablet 4-26 ity of 00:00: [place] [facility] tiZANidine 2019-0 Yes Univers 2 mg tablet 4-26 ity of 00:00: [place] [facility] Branch tiZANidine 2019-0 Yes Univers 2 mg tablet 4-26 ity of 00:00: [place] [address] Medical Branch tiZANidine 2019-0 Yes Univers 2 mg tablet 4-26 ity of 00:00: [place] [facility] tiZANidine 2019-0 Yes Univers 2 mg tablet 4-26 ity of 00:00: [place] [facility] tiZANidine 2019-0 Yes Univers 2 mg tablet 4-26 ity of 00:00: [place] [facility] tiZANidine 2019-0 Yes Univers 2 mg tablet 4-26 ity of 00:00: [place] [facility] tiZANidine 2019-0 Yes Univers 2 mg tablet 4-26 ity of 00:00: [place] [facility] Branch tiZANidine 2019-0 Yes Univers 2 mg tablet 4-26 ity of 00:00: [place] [address] Medical Branch tiZANidine 2019-0 Yes Univers 2 mg tablet 4-26 ity of 00:00: [place] [address] Medical Branch tiZANidine 2019-0 Yes Univers 2 mg tablet 4-26 ity of 00:00: [address] Immunizations Ordered Filled Date Status Comments Source Immunization Name Immunization Name Influenza Virus 2021-12-03 Completed Universit y of Vaccine 00:00:00 [facility] Influenza Virus 2021-12-03 Completed Universit y of Vaccine 00:00:00 [facility] Influenza Virus 2021-12-03 Completed Universit y of Vaccine 00:00:00 [facility] Influenza Virus 2021-12-03 Completed Universit y of Vaccine 00:00:00 [facility] Influenza Virus 2021-12-03 Completed Universit y of Vaccine 00:00:00 [facility] Influenza Virus 2021-12-03 Completed Universit y of Vaccine 00:00:00 [facility] Influenza Virus 2021-12-03 Completed Universit y of Vaccine 00:00:00 [facility] Influenza Virus 2021-12-03 Completed Universit y of Vaccine 00:00:00 [facility] Influenza Virus 2021-12-03 Completed Universit y of Vaccine 00:00:00 [facility] Influenza Virus 2021-12-03 Completed Universit y of Vaccine 00:00:00 [facility] Influenza Virus 2021-12-03 Completed Universit y of Vaccine 00:00:00 [facility] Influenza Virus 2021-12-03 Completed Universit y of Vaccine 00:00:00 [facility] Influenza Virus 2021-12-03 Completed Universit y of Vaccine 00:00:00 [facility] Influenza Virus 2021-12-03 Completed Universit y of Vaccine 00:00:00 [facility] Influenza Virus 2021-12-03 Completed Universit y of Vaccine 00:00:00 [facility] Influenza Virus 2021-12-03 Completed Universit y of Vaccine 00:00:00 [facility] Influenza Virus 2021-12-03 Completed Universit y of Vaccine 00:00:00 [facility] Influenza Virus 2021-12-03 Completed Universit y of Vaccine 00:00:00 [facility] Influenza Virus 2021-12-03 Completed Universit y of Vaccine 00:00:00 [facility] Influenza Virus 2021-12-03 Completed Universit y of Vaccine 00:00:00 [facility] Influenza Virus 2021-12-03 Completed Universit y of Vaccine 00:00:00 [facility] Influenza Virus 2021-12-03 Completed Universit y of Vaccine 00:00:00 [facility] Branch Influenza Virus 2021-12-03 Completed Universit y of Vaccine 00:00:00 [facility] Branch Influenza Virus 2021-12-03 Completed Universit y of Vaccine 00:00:00 [facility] Branch Influenza Virus 2021-12-03 Completed Universit y of Vaccine 00:00:00 [facility] Influenza Virus 2021-12-03 Completed Universit y of Vaccine 00:00:00 [facility] Branch Influenza Virus 2021-12-03 Completed Universit y of Vaccine 00:00:00 [facility] Branch Influenza Virus 2021-12-03 Completed Universit y of Vaccine 00:00:00 [facility] Branch Influenza Virus 2021-12-03 Completed Universit y of Vaccine 00:00:00 [facility] Branch Influenza Virus 2021-12-03 Completed Universit y of Vaccine 00:00:00 [place] [facility] Branch Influenza Virus 2021-12-03 Completed Universit y of Vaccine 00:00:00 [facility] Branch Influenza Virus 2021-12-03 Completed Universit y of Vaccine 00:00:00 [facility] Branch Influenza Virus 2021-12-03 Completed Universit y of Vaccine 00:00:00 [facility] Branch Influenza Virus 2021-12-03 Completed Universit y of Vaccine 00:00:00 [facility] Branch Influenza Virus 2021-12-03 Completed Universit y of Vaccine 00:00:00 [facility] Branch Influenza Virus 2021-12-03 Completed Universit y of Vaccine 00:00:00 [facility] Branch Influenza Virus 2021-12-03 Completed Universit y of Vaccine 00:00:00 [facility] Branch Influenza Virus 2021-12-03 Completed Universit y of Vaccine 00:00:00 [facility] Branch Influenza Virus 2021-12-03 Completed Universit y of Vaccine 00:00:00 [facility] Branch Influenza Virus 2021-12-03 Completed Universit y of Vaccine 00:00:00 [facility] Branch Influenza Virus 2021-12-03 Completed Universit y of Vaccine 00:00:00 [facility] Branch Influenza Virus 2021-12-03 Completed Universit y of Vaccine 00:00:00 [facility] Branch Influenza Virus 2021-12-03 Completed Universit y of Vaccine 00:00:00 [facility] Branch Influenza Virus 2021-12-03 Completed Universit y of Vaccine 00:00:00 [place] [facility] [facility] Influenza Virus 2021-12-03 Completed [facility] Vaccine 00:00:00 [facility] Influenza Virus 2021-12-03 Completed [facility] Vaccine 00:00:00 [facility] Influenza Virus 2021-12-03 Completed [facility] Vaccine 00:00:00 [facility] Influenza Virus 2021-12-03 Completed [facility] Vaccine 00:00:00 [facility] Influenza Virus 2021-12-03 Completed [facility] Vaccine 00:00:00 [facility] Influenza Virus 2021-12-03 Completed [facility] Vaccine 00:00:00 [facility] Influenza Virus 2021-12-03 Completed [facility] Vaccine 00:00:00 [facility] Influenza Virus 2021-12-03 Completed [facility] Vaccine 00:00:00 [facility] Influenza Virus 2021-12-03 Completed [facility] of Vaccine 00:00:00 [facility] Influenza Virus 2021-12-03 Completed [facility] Vaccine 00:00:00 [facility] Influenza Virus 2021-12-03 Completed [facility] Vaccine 00:00:00 [facility] Influenza Virus 2021-12-03 Completed [facility] Vaccine 00:00:00 [facility] Influenza Virus 2021-12-03 Completed [facility] Vaccine 00:00:00 [facility] Influenza Virus 2021-12-03 Completed [facility] Vaccine 00:00:00 [facility] Influenza Virus 2021-12-03 Completed [facility] Vaccine 00:00:00 [facility] Influenza Virus 2021-12-03 Completed [facility] Vaccine 00:00:00 [facility] Influenza Virus 2021-12-03 Completed [facility] Vaccine 00:00:00 [facility] Influenza Virus 2021-12-03 Completed [facility] Vaccine 00:00:00 [facility] Influenza Virus 2021-12-03 Completed [facility] Vaccine 00:00:00 [facility] Influenza Virus 2021-12-03 Completed [facility] Vaccine 00:00:00 [facility] Influenza Virus 2021-12-03 Completed [facility] Vaccine 00:00:00 [facility] Influenza Virus 2021-12-03 Completed [facility] Vaccine 00:00:00 [facility] Influenza Virus 2020-01-16 Completed [facility] Vaccine 00:00:00 [facility] Influenza Virus 2020-01-16 Completed [facility] Vaccine 00:00:00 [facility] Influenza Virus 2020-01-16 Completed [facility] Vaccine 00:00:00 [facility] Influenza Virus 2020-01-16 Completed [facility] Vaccine 00:00:00 [facility] Influenza Virus 2020-01-16 Completed [facility] Vaccine 00:00:00 [facility] Influenza Virus 2020-01-16 Completed [facility] Vaccine 00:00:00 [facility] Influenza Virus 2020-01-16 Completed [facility] Vaccine 00:00:00 [facility] Influenza Virus 2020-01-16 Completed [facility] Vaccine 00:00:00 [facility] Influenza Virus 2020-01-16 Completed [facility] Vaccine 00:00:00 [facility] Influenza Virus 2020-01-16 Completed [facility] Vaccine 00:00:00 [facility] Influenza Virus 2020-01-16 Completed [facility] Vaccine 00:00:00 [facility] Influenza Virus 2020-01-16 Completed [facility] Vaccine 00:00:00 [facility] Influenza Virus 2020-01-16 Completed [facility] Vaccine 00:00:00 [facility] Influenza Virus 2020-01-16 Completed [facility] Vaccine 00:00:00 [facility] Influenza Virus 2020-01-16 Completed [facility] Vaccine 00:00:00 [facility] Influenza Virus 2020-01-16 Completed [facility] Vaccine 00:00:00 [facility] Influenza Virus 2020-01-16 Completed [facility] Vaccine 00:00:00 [facility] Influenza Virus 2020-01-16 Completed [facility] Vaccine 00:00:00 [facility] Influenza Virus 2020-01-16 Completed [facility] Vaccine 00:00:00 [facility] Influenza Virus 2020-01-16 Completed [facility] Vaccine 00:00:00 [facility] Influenza Virus 2020-01-16 Completed [facility] Vaccine 00:00:00 [facility] Influenza Virus 2020-01-16 Completed [facility] Vaccine 00:00:00 [facility] Influenza Virus 2020-01-16 Completed [facility] Vaccine 00:00:00 [facility] Influenza Virus 2020-01-16 Completed [facility] Vaccine 00:00:00 [facility] Influenza Virus 2020-01-16 Completed [facility] Vaccine 00:00:00 [facility] Influenza Virus 2020-01-16 Completed [facility] Vaccine 00:00:00 [facility] Influenza Virus 2020-01-16 Completed [facility] Vaccine 00:00:00 [facility] Influenza Virus 2020-01-16 Completed [facility] Vaccine 00:00:00 [facility] Influenza Virus 2020-01-16 Completed [facility] Vaccine 00:00:00 [facility] Influenza Virus 2020-01-16 Completed [facility] Vaccine 00:00:00 [facility] Influenza Virus 2020-01-16 Completed [facility] Vaccine 00:00:00 [facility] Influenza Virus 2020-01-16 Completed [facility] Vaccine 00:00:00 [facility] Influenza Virus 2020-01-16 Completed [facility] Vaccine 00:00:00 [facility] Influenza Virus 2020-01-16 Completed [facility] Vaccine 00:00:00 [facility] Influenza Virus 2020-01-16 Completed [facility] Vaccine 00:00:00 [facility] Influenza Virus 2020-01-16 Completed [facility] Vaccine 00:00:00 [facility] Influenza Virus 2020-01-16 Completed [facility] Vaccine 00:00:00 [facility] Influenza Virus 2020-01-16 Completed [facility] Vaccine 00:00:00 [facility] Influenza Virus 2020-01-16 Completed [facility] Vaccine 00:00:00 [facility] Influenza Virus 2020-01-16 Completed [facility] Vaccine 00:00:00 [facility] Influenza Virus 2020-01-16 Completed [facility] Vaccine 00:00:00 [facility] Influenza Virus 2020-01-16 Completed [facility] Vaccine 00:00:00 [facility] Influenza Virus 2020-01-16 Completed [facility] Vaccine 00:00:00 [facility] Influenza Virus 2020-01-16 Completed [facility] Vaccine 00:00:00 [facility] Influenza Virus 2020-01-16 Completed [facility] Vaccine 00:00:00 [facility] Influenza Virus 2020-01-16 Completed [facility] Vaccine 00:00:00 [facility] Influenza Virus 2020-01-16 Completed [facility] Vaccine 00:00:00 [facility] Influenza Virus 2020-01-16 Completed [facility] Vaccine 00:00:00 [facility] Influenza Virus 2020-01-16 Completed [facility] Vaccine 00:00:00 [facility] Influenza Virus 2020-01-16 Completed [facility] Vaccine 00:00:00 [facility] Influenza Virus 2020-01-16 Completed [facility] Vaccine 00:00:00 [facility] Influenza Virus 2020-01-16 Completed [facility] Vaccine 00:00:00 [facility] Influenza Virus 2020-01-16 Completed [facility] Vaccine 00:00:00 [facility] Influenza Virus 2020-01-16 Completed [facility] Vaccine 00:00:00 [facility] Influenza Virus 2020-01-16 Completed [facility] Vaccine 00:00:00 [facility] Influenza Virus 2020-01-16 Completed [facility] Vaccine 00:00:00 [facility] Influenza Virus 2020-01-16 Completed [facility] Vaccine 00:00:00 [facility] Influenza Virus 2020-01-16 Completed [facility] Vaccine 00:00:00 [facility] Influenza Virus 2020-01-16 Completed [facility] Vaccine 00:00:00 [facility] Influenza Virus 2020-01-16 Completed [facility] Vaccine 00:00:00 [facility] Influenza Virus 2020-01-16 Completed [facility] Vaccine 00:00:00 [facility] Influenza Virus 2020-01-16 Completed [facility] Vaccine 00:00:00 [facility] Influenza Virus 2020-01-16 Completed [facility] Vaccine 00:00:00 [facility] Influenza Virus 2020-01-16 Completed [facility] Vaccine 00:00:00 [facility] Influenza Virus 2020-01-16 Completed [facility] Vaccine 00:00:00 [facility] Influenza Virus 2020-01-16 Completed [facility] Vaccine 00:00:00 [facility] Influenza Virus 2020-01-16 Completed [facility] Vaccine 00:00:00 [facility] Influenza Virus 2020-01-16 Completed [facility] Vaccine 00:00:00 [facility] Influenza Virus 2020-01-16 Completed [facility] Vaccine 00:00:00 [facility] Influenza Virus 2016-11-27 Completed [facility] Vaccine 00:00:00 [facility] Influenza Virus 2016-11-27 Completed [facility] Vaccine 00:00:00 [facility] Influenza Virus 2016-11-27 Completed [facility] Vaccine 00:00:00 [facility] Influenza Virus 2016-11-27 Completed [facility] Vaccine 00:00:00 [facility] Influenza Virus 2016-11-27 Completed [facility] Vaccine 00:00:00 [facility] Influenza Virus 2016-11-27 Completed [facility] Vaccine 00:00:00 [facility] Influenza Virus 2016-11-27 Completed [facility] Vaccine 00:00:00 [facility] Influenza Virus 2016-11-27 Completed [facility] Vaccine 00:00:00 [facility] Influenza Virus 2016-11-27 Completed [facility] Vaccine 00:00:00 [facility] Influenza Virus 2016-11-27 Completed [facility] Vaccine 00:00:00 [facility] Influenza Virus 2016-11-27 Completed [facility] Vaccine 00:00:00 [facility] Influenza Virus 2016-11-27 Completed [facility] Vaccine 00:00:00 [facility] Influenza Virus 2016-11-27 Completed [facility] Vaccine 00:00:00 [facility] Influenza Virus 2016-11-27 Completed [facility] Vaccine 00:00:00 [facility] Influenza Virus 2016-11-27 Completed [facility] Vaccine 00:00:00 [facility] Influenza Virus 2016-11-27 Completed [facility] Vaccine 00:00:00 [facility] Influenza Virus 2016-11-27 Completed [facility] Vaccine 00:00:00 [facility] Influenza Virus 2016-11-27 Completed [facility] Vaccine 00:00:00 [facility] Influenza Virus 2016-11-27 Completed [facility] Vaccine 00:00:00 [facility] Influenza Virus 2016-11-27 Completed [facility] Vaccine 00:00:00 [facility] Influenza Virus 2016-11-27 Completed [facility] Vaccine 00:00:00 [facility] Influenza Virus 2016-11-27 Completed [facility] Vaccine 00:00:00 [facility] Influenza Virus 2016-11-27 Completed [facility] Vaccine 00:00:00 [facility] Influenza Virus 2016-11-27 Completed [facility] Vaccine 00:00:00 [facility] Influenza Virus 2016-11-27 Completed [facility] Vaccine 00:00:00 [facility] Influenza Virus 2016-11-27 Completed [facility] Vaccine 00:00:00 [facility] Influenza Virus 2016-11-27 Completed [facility] Vaccine 00:00:00 [facility] Influenza Virus 2016-11-27 Completed [facility] Vaccine 00:00:00 [facility] Influenza Virus 2016-11-27 Completed [facility] Vaccine 00:00:00 [facility] Influenza Virus 2016-11-27 Completed [facility] Vaccine 00:00:00 [facility] Influenza Virus 2016-11-27 Completed [facility] Vaccine 00:00:00 [facility] Influenza Virus 2016-11-27 Completed [facility] Vaccine 00:00:00 [facility] Influenza Virus 2016-11-27 Completed [facility] Vaccine 00:00:00 [facility] Influenza Virus 2016-11-27 Completed [facility] Vaccine 00:00:00 [facility] Influenza Virus 2016-11-27 Completed [facility] Vaccine 00:00:00 [facility] Influenza Virus 2016-11-27 Completed [facility] Vaccine 00:00:00 [facility] Influenza Virus 2016-11-27 Completed [facility] Vaccine 00:00:00 [facility] Influenza Virus 2016-11-27 Completed [facility] Vaccine 00:00:00 [facility] Influenza Virus 2016-11-27 Completed [facility] Vaccine 00:00:00 [facility] Influenza Virus 2016-11-27 Completed [facility] Vaccine 00:00:00 [facility] Influenza Virus 2016-11-27 Completed [facility] Vaccine 00:00:00 [facility] Influenza Virus 2016-11-27 Completed [facility] Vaccine 00:00:00 [facility] Influenza Virus 2016-11-27 Completed [facility] Vaccine 00:00:00 [facility] Influenza Virus 2016-11-27 Completed [facility] Vaccine 00:00:00 [facility] Influenza Virus 2016-11-27 Completed [facility] Vaccine 00:00:00 [facility] Influenza Virus 2016-11-27 Completed [facility] Vaccine 00:00:00 [facility] Influenza Virus 2016-11-27 Completed [facility] Vaccine 00:00:00 [facility] Influenza Virus 2016-11-27 Completed [facility] Vaccine 00:00:00 [facility] Influenza Virus 2016-11-27 Completed [facility] Vaccine 00:00:00 [facility] Influenza Virus 2016-11-27 Completed [facility] Vaccine 00:00:00 [facility] Influenza Virus 2016-11-27 Completed [facility] Vaccine 00:00:00 [facility] Influenza Virus 2016-11-27 Completed [facility] Vaccine 00:00:00 [facility] Influenza Virus 2016-11-27 Completed [facility] Vaccine 00:00:00 [facility] Influenza Virus 2016-11-27 Completed [facility] Vaccine 00:00:00 [facility] Influenza Virus 2016-11-27 Completed [facility] Vaccine 00:00:00 [facility] Influenza Virus 2016-11-27 Completed [facility] Vaccine 00:00:00 [facility] Influenza Virus 2016-11-27 Completed [facility] Vaccine 00:00:00 [facility] Influenza Virus 2016-11-27 Completed [facility] Vaccine 00:00:00 [facility] Influenza Virus 2016-11-27 Completed [facility] Vaccine 00:00:00 [facility] Influenza Virus 2016-11-27 Completed [facility] Vaccine 00:00:00 [facility] Influenza Virus 2016-11-27 Completed [facility] Vaccine 00:00:00 [facility] Influenza Virus 2016-11-27 Completed [facility] Vaccine 00:00:00 [facility] Influenza Virus 2016-11-27 Completed [facility] Vaccine 00:00:00 [facility] Influenza Virus 2016-11-27 Completed [facility] Vaccine 00:00:00 [facility] Influenza Virus 2016-11-27 Completed [facility] Vaccine 00:00:00 [facility] Influenza Virus 2016-11-27 Completed [facility] Vaccine 00:00:00 [facility] Influenza Virus 2016-11-27 Completed [facility] Vaccine 00:00:00 [facility] Influenza Virus 2016-11-27 Completed [facility] Vaccine 00:00:00 [facility] Influenza Virus 2016-11-27 Completed [facility] Vaccine 00:00:00 [facility] Pneumococcal 13 2015-05-12 Completed [facility] y [...] Completed [facility] of Conjugate, PCV13 00:00:00 [facility]Pre[facility]ar [facility] PPD (TB) 2015-04-03 Completed [facility] 00:00:00 [facility] PPD (TB) 2015-04-03 Completed [facility] 00:00:00 [facility] PPD (TB) 2015-04-03 Completed [facility] 00:00:00 [facility] PPD (TB) 2015-04-03 Completed [facility] 00:00:00 [facility] PPD (TB) 2015-04-03 Completed [facility] 00:00:00 [facility] PPD (TB) 2015-04-03 Completed [facility] 00:00:00 [facility] PPD (TB) 2015-04-03 Completed [facility] 00:00:00 [facility] PPD (TB) 2015-04-03 Completed [facility] 00:00:00 [facility] PPD (TB) 2015-04-03 Completed [facility] 00:00:00 [facility] PPD (TB) 2015-04-03 Completed [facility] 00:00:00 [facility] PPD (TB) 2015-04-03 Completed [facility] 00:00:00 [facility] PPD (TB) 2015-04-03 Completed [facility] 00:00:00 [facility] PPD (TB) 2015-04-03 Completed [facility] 00:00:00 [facility] PPD (TB) 2015-04-03 Completed [facility] 00:00:00 [facility] PPD (TB) 2015-04-03 Completed [facility] 00:00:00 [facility] PPD (TB) 2015-04-03 Completed [facility] 00:00:00 [facility] PPD (TB) 2015-04-03 Completed [facility] 00:00:00 [facility] PPD (TB) 2015-04-03 Completed [facility] 00:00:00 [facility] PPD (TB) 2015-04-03 Completed [facility] 00:00:00 [facility] PPD (TB) 2015-04-03 Completed [facility] 00:00:00 [facility] PPD (TB) 2015-04-03 Completed [facility] 00:00:00 [facility] PPD (TB) 2015-04-03 Completed [facility] 00:00:00 [facility] PPD (TB) 2015-04-03 Completed [facility] 00:00:00 [facility] PPD (TB) 2015-04-03 Completed [facility] 00:00:00 [facility] PPD (TB) 2015-04-03 Completed [facility] 00:00:00 [facility] PPD (TB) 2015-04-03 Completed [facility] 00:00:00 [facility] PPD (TB) 2015-04-03 Completed [facility] 00:00:00 [facility] PPD (TB) 2015-04-03 Completed [facility] 00:00:00 [facility] PPD (TB) 2015-04-03 Completed [facility] 00:00:00 [facility] PPD (TB) 2015-04-03 Completed [facility] 00:00:00 [facility] PPD (TB) 2015-04-03 Completed [facility] 00:00:00 [facility] PPD (TB) 2015-04-03 Completed [facility] 00:00:00 [facility] PPD (TB) 2015-04-03 Completed [facility] 00:00:00 [facility] PPD (TB) 2015-04-03 Completed [facility] 00:00:00 [facility] PPD (TB) 2015-04-03 Completed [facility] 00:00:00 [facility] PPD (TB) 2015-04-03 Completed [facility] 00:00:00 [facility] PPD (TB) 2015-04-03 Completed [facility] 00:00:00 [facility] PPD (TB) 2015-04-03 Completed [facility] 00:00:00 [facility] PPD (TB) 2015-04-03 Completed [facility] 00:00:00 [facility] PPD (TB) 2015-04-03 Completed [facility] 00:00:00 [facility] PPD (TB) 2015-04-03 Completed [facility] 00:00:00 [facility] PPD (TB) 2015-04-03 Completed [facility] 00:00:00 [facility] PPD (TB) 2015-04-03 Completed [facility] 00:00:00 [facility] PPD (TB) 2015-04-03 Completed [facility] 00:00:00 [facility] PPD (TB) 2015-04-03 Completed [facility] 00:00:00 [facility] PPD (TB) 2015-04-03 Completed [facility] 00:00:00 [facility] PPD (TB) 2015-04-03 Completed [facility] 00:00:00 [facility] PPD (TB) 2015-04-03 Completed [facility] 00:00:00 [facility] PPD (TB) 2015-04-03 Completed [facility] 00:00:00 [facility] PPD (TB) 2015-04-03 Completed [facility] 00:00:00 [facility] PPD (TB) 2015-04-03 Completed [facility] 00:00:00 [facility] PPD (TB) 2015-04-03 Completed [facility] 00:00:00 [facility] PPD (TB) 2015-04-03 Completed [facility] 00:00:00 [facility] PPD (TB) 2015-04-03 Completed [facility] 00:00:00 [facility] PPD (TB) 2015-04-03 Completed [facility] 00:00:00 [facility] PPD (TB) 2015-04-03 Completed [facility] 00:00:00 [facility] PPD (TB) 2015-04-03 Completed [facility] 00:00:00 [facility] PPD (TB) 2015-04-03 Completed [facility] 00:00:00 [facility] PPD (TB) 2015-04-03 Completed [facility] 00:00:00 [facility] PPD (TB) 2015-04-03 Completed [facility] 00:00:00 [facility] PPD (TB) 2015-04-03 Completed [facility] 00:00:00 [facility] PPD (TB) 2015-04-03 Completed [facility] 00:00:00 [facility] PPD (TB) 2015-04-03 Completed [facility] 00:00:00 [facility] PPD (TB) 2015-04-03 Completed [facility] 00:00:00 [facility] PPD (TB) 2015-04-03 Completed [facility] 00:00:00 [facility] PPD (TB) 2015-04-03 Completed [facility] 00:00:00 [facility] PPD (TB) 2015-04-03 Completed [facility] 00:00:00 [facility] PPD (TB) 2015-04-03 Completed [facility] 00:00:00 [facility] PPD (TB) 2015-04-03 Completed [facility] 00:00:00 [facility] Influenza Virus 2014-12-05 Completed [facility] Vaccine 00:00:00 [facility] Influenza Virus 2014-12-05 Completed [facility] Vaccine 00:00:00 [facility] Influenza Virus 2014-12-05 Completed [facility] Vaccine 00:00:00 [facility] Influenza Virus 2014-12-05 Completed [facility] Vaccine 00:00:00 [facility] Influenza Virus 2014-12-05 Completed [facility] Vaccine 00:00:00 [facility] Influenza Virus 2014-12-05 Completed [facility] Vaccine 00:00:00 [facility] Influenza Virus 2014-12-05 Completed [facility] Vaccine 00:00:00 [facility] Influenza Virus 2014-12-05 Completed [facility] Vaccine 00:00:00 [facility] Influenza Virus 2014-12-05 Completed [facility] Vaccine 00:00:00 [facility] Influenza Virus 2014-12-05 Completed [facility] Vaccine 00:00:00 [facility] Influenza Virus 2014-12-05 Completed [facility] Vaccine 00:00:00 [facility] Influenza Virus 2014-12-05 Completed [facility] Vaccine 00:00:00 [facility] Influenza Virus 2014-12-05 Completed [facility] Vaccine 00:00:00 [facility] Influenza Virus 2014-12-05 Completed [facility] Vaccine 00:00:00 [facility] Influenza Virus 2014-12-05 Completed [facility] Vaccine 00:00:00 [facility] Influenza Virus 2014-12-05 Completed [facility] Vaccine 00:00:00 [facility] Influenza Virus 2014-12-05 Completed [facility] Vaccine 00:00:00 [facility] Influenza Virus 2014-12-05 Completed [facility] Vaccine 00:00:00 [facility] Influenza Virus 2014-12-05 Completed [facility] Vaccine 00:00:00 [facility] Influenza Virus 2014-12-05 Completed [facility]ine 00:00:00 [facility] Influenza Virus 2014-12-05 Completed [facility] Vaccine 00:00:00 [facility] Influenza Virus 2014-12-05 Completed [facility] Vaccine 00:00:00 [facility] Influenza Virus 2014-12-05 Completed [facility] Vaccine 00:00:00 [facility] Influenza Virus 2014-12-05 Completed [facility] Vaccine 00:00:00 [facility] Influenza Virus 2014-12-05 Completed [facility] Vaccine 00:00:00 [facility] Influenza Virus 2014-12-05 Completed [facility] Vaccine 00:00:00 [facility] Influenza Virus 2014-12-05 Completed [facility] Vaccine 00:00:00 [facility] Influenza Virus 2014-12-05 Completed [facility] Vaccine 00:00:00 [facility] Influenza Virus 2014-12-05 Completed [facility] Vaccine 00:00:00 [facility] Influenza Virus 2014-12-05 Completed [facility] Vaccine 00:00:00 [facility] Influenza Virus 2014-12-05 Completed [facility] Vaccine 00:00:00 [facility] Influenza Virus 2014-12-05 Completed [facility] Vaccine 00:00:00 [facility] Influenza Virus 2014-12-05 Completed [facility] Vaccine 00:00:00 [facility] Influenza Virus 2014-12-05 Completed [facility] Vaccine 00:00:00 [facility] Influenza Virus 2014-12-05 Completed [facility] Vaccine 00:00:00 [facility] Influenza Virus 2014-12-05 Completed [facility] Vaccine 00:00:00 [facility] Influenza Virus 2014-12-05 Completed [facility] Vaccine 00:00:00 [facility] Influenza Virus 2014-12-05 Completed [facility] Vaccine 00:00:00 [facility] Influenza Virus 2014-12-05 Completed [facility] Vaccine 00:00:00 [facility] Influenza Virus 2014-12-05 Completed [facility] Vaccine 00:00:00 [facility] Influenza Virus 2014-12-05 Completed [facility] Vaccine 00:00:00 [facility] Influenza Virus 2014-12-05 Completed [facility] Vaccine 00:00:00 [facility] Influenza Virus 2014-12-05 Completed [facility] Vaccine 00:00:00 [facility] Influenza Virus 2014-12-05 Completed [facility] Vaccine 00:00:00 [facility] Influenza Virus 2014-12-05 Completed [facility] Vaccine 00:00:00 [facility] Influenza Virus 2014-12-05 Completed [facility] Vaccine 00:00:00 [facility] Influenza Virus 2014-12-05 Completed [facility] Vaccine 00:00:00 [facility] Influenza Virus 2014-12-05 Completed [facility] Vaccine 00:00:00 [facility] Influenza Virus 2014-12-05 Completed [facility] Vaccine 00:00:00 [facility] Influenza Virus 2014-12-05 Completed [facility] Vaccine 00:00:00 [facility] Influenza Virus 2014-12-05 Completed [facility] Vaccine 00:00:00 [facility] Influenza Virus 2014-12-05 Completed [facility] Vaccine 00:00:00 [facility] Influenza Virus 2014-12-05 Completed [facility] Vaccine 00:00:00 [facility] Influenza Virus 2014-12-05 Completed [facility] Vaccine 00:00:00 [facility] Influenza Virus 2014-12-05 Completed [facility] Vaccine 00:00:00 [facility] Influenza Virus 2014-12-05 Completed [facility] Vaccine 00:00:00 [facility] Influenza Virus 2014-12-05 Completed [facility] Vaccine 00:00:00 [facility] Influenza Virus 2014-12-05 Completed [facility] Vaccine 00:00:00 [facility] Influenza Virus 2014-12-05 Completed [facility] Vaccine 00:00:00 [facility] Influenza Virus 2014-12-05 Completed [facility] Vaccine 00:00:00 [facility] Influenza Virus 2014-12-05 Completed [facility] Vaccine 00:00:00 [facility] Influenza Virus 2014-12-05 Completed [facility] Vaccine 00:00:00 [facility] Influenza Virus 2014-12-05 Completed [facility] Vaccine 00:00:00 [facility] Influenza Virus 2014-12-05 Completed [facility] Vaccine 00:00:00 [facility] Influenza Virus 2014-12-05 Completed [facility] Vaccine 00:00:00 [facility] Influenza Virus 2014-12-05 Completed [facility] Vaccine 00:00:00 [facility] Influenza Virus 2014-12-05 Completed [facility] Vaccine 00:00:00 [facility] Influenza Virus 2014-12-05 Completed [facility] Vaccine 00:00:00 [facility] Influenza Virus 2014-12-05 Completed [facility] Vaccine 00:00:00 [facility] PPD (TB) 2014-04-13 Completed [facility] 00:00:00 [facility] PPD (TB) 2014-04-13 Completed [facility] 00:00:00 [facility] PPD (TB) 2014-04-13 Completed [facility] 00:00:00 [facility] PPD (TB) 2014-04-13 Completed [facility] 00:00:00 [facility] PPD (TB) 2014-04-13 Completed [facility] 00:00:00 [facility] PPD (TB) 2014-04-13 Completed [facility] 00:00:00 [facility] PPD (TB) 2014-04-13 Completed [facility] 00:00:00 [facility] PPD (TB) 2014-04-13 Completed [facility] 00:00:00 [facility] PPD (TB) 2014-04-13 Completed [facility] 00:00:00 [facility] PPD (TB) 2014-04-13 Completed [facility] 00:00:00 [facility] PPD (TB) 2014-04-13 Completed [facility] 00:00:00 [facility] PPD (TB) 2014-04-13 Completed [facility] 00:00:00 [facility] PPD (TB) 2014-04-13 Completed [facility] 00:00:00 [facility] PPD (TB) 2014-04-13 Completed [facility] 00[facility]00:00 [facility] PPD (TB) 2014-04-13 Completed [facility] 00:00:00 [facility] PPD (TB) 2014-04-13 Completed [facility] 00:00:00 [facility] PPD (TB) 2014-04-13 Completed [facility] 00:00:00 [facility] PPD (TB) 2014-04-13 Completed [facility] 00:00:00 [facility] PPD (TB) 2014-04-13 Completed [facility] 00:00:00 [facility] PPD (TB) 2014-04-13 Completed [facility] 00:00:00 [facility] PPD (TB) 2014-04-13 Completed [facility] 00:00:00 [facility] PPD (TB) 2014-04-13 Completed [facility] 00:00:00 [facility] PPD (TB) 2014-04-13 Completed [facility] 00:00:00 [facility] PPD (TB) 2014-04-13 Completed [facility] 00:00:00 [facility] PPD (TB) 2014-04-13 Completed [facility] 00:00:00 [facility] PPD (TB) 2014-04-13 Completed [facility] 00:00:00 [facility] PPD (TB) 2014-04-13 Completed [facility] 00:00:00 [facility] PPD (TB) 2014-04-13 Completed [facility] 00:00:00 [facility] PPD (TB) 2014-04-13 Completed [facility] 00:00:00 [facility] PPD (TB) 2014-04-13 Completed [facility] 00:00:00 [facility] PPD (TB) 2014-04-13 Completed [facility] 00:00:00 [facility] PPD (TB) 2014-04-13 Completed [facility] 00:00:00 [facility] PPD (TB) 2014-04-13 Completed [facility] 00:00:00 [facility] PPD (TB) 2014-04-13 Completed [facility] 00:00:00 [facility] PPD (TB) 2014-04-13 Completed [facility] 00:00:00 [facility] PPD (TB) 2014-04-13 Completed [facility] 00:00:00 [facility] PPD (TB) 2014-04-13 Completed [facility] 00:00:00 [facility] PPD (TB) 2014-04-13 Completed [facility] 00:00:00 [facility] PPD (TB) 2014-04-13 Completed [facility] 00:00:00 [facility] PPD (TB) 2014-04-13 Completed [facility] 00:00:00 [facility] PPD (TB) 2014-04-13 Completed [facility] 00:00:00 [facility] PPD (TB) 2014-04-13 Completed [facility] 00:00:00 [facility] PPD (TB) 2014-04-13 Completed [facility] 00:00:00 [facility] PPD (TB) 2014-04-13 Completed [facility] 00:00:00 [facility] PPD (TB) 2014-04-13 Completed [facility] 00:00:00 [facility] PPD (TB) 2014-04-13 Completed [facility] 00:00:00 [facility] PPD (TB) 2014-04-13 Completed [facility] 00:00:00 [facility] PPD (TB) 2014-04-13 Completed [facility] 00:00:00 [facility] PPD (TB) 2014-04-13 Completed [facility] 00:00:00 [facility] PPD (TB) 2014-04-13 Completed [facility] 00:00:00 [facility] PPD (TB) 2014-04-13 Completed [facility] 00:00:00 [facility] PPD (TB) 2014-04-13 Completed [facility] 00:00:00 [facility] PPD (TB) 2014-04-13 Completed [facility] 00:00:00 [facility] PPD (TB) 2014-04-13 Completed [facility] 00:00:00 [facility] PPD (TB) 2014-04-13 Completed [facility] 00:00:00 [facility] PPD (TB) 2014-04-13 Completed [facility] 00:00:00 [facility] PPD (TB) 2014-04-13 Completed [facility] 00:00:00 [facility] PPD (TB) 2014-04-13 Completed [facility] 00:00:00 [facility] PPD (TB) 2014-04-13 Completed [facility] 00:00:00 [facility] PPD (TB) 2014-04-13 Completed [facility] 00:00:00 [facility] PPD (TB) 2014-04-13 Completed [facility] 00:00:00 [facility] PPD (TB) 2014-04-13 Completed [facility] 00:00:00 [facility] PPD (TB) 2014-04-13 Completed [facility] 00:00:00 [facility] PPD (TB) 2014-04-13 Completed [facility] 00:00:00 [facility] PPD (TB) 2014-04-13 Completed [facility] 00:00:00 [facility] PPD (TB) 2014-04-13 Completed [facility] 00:00:00 [facility] PPD (TB) 2014-04-13 Completed [facility] 00:00:00 [facility] PPD (TB) 2014-04-13 Completed [facility] 00:00:00 [facility] PPD (TB) 2014-04-13 Completed [facility] 00:00:00 [facility] Influenza Virus 2013-11-15 Completed [facility] Vaccine 00:00:00 [facility] Influenza Virus 2013-11-15 Completed [facility] Vaccine 00:00:00 [facility] Influenza Virus 2013-11-15 Completed [facility] Vaccine 00:00:00 [facility] Influenza Virus 2013-11-15 Completed [facility] Vaccine 00:00:00 [facility] Influenza Virus 2013-11-15 Completed [facility] Vaccine 00:00:00 [facility] Influenza Virus 2013-11-15 Completed [facility] Vaccine 00:00:00 [facility] Influenza Virus 2013-11-15 Completed [facility] Vaccine 00:00:00 [facility] Influenza Virus 2013-11-15 Completed [facility] Vaccine 00:00:00 [facility] Influenza Virus 2013-11-15 Completed [facility] Vaccine 00:00:00 [facility] Influenza Virus 2013-11-15 Completed [facility] Vaccine 00:00:00 [facility] Influenza Virus 2013-11-15 Completed [facility] Vaccine 00:00:00 [facility] Influenza Virus 2013-11-15 Completed [facility] Vaccine 00:00:00 [facility] Influenza Virus 2013-11-15 Completed [facility] Vaccine 00:00:00 [facility] Influenza Virus 2013-11-15 Completed [facility] Vaccine 00:00:00 [facility] Influenza Virus 2013-11-15 Completed [facility] Vaccine 00:00:00 [facility] Influenza Virus 2013-11-15 Completed [facility] Vaccine 00:00:00 [facility] Influenza Virus 2013-11-15 Completed [facility] Vaccine 00:00:00 [facility] Influenza Virus 2013-11-15 Completed [facility] Vaccine 00:00:00 [facility] Influenza Virus 2013-11-15 Completed [facility] Vaccine 00:00:00 [facility] Influenza Virus 2013-11-15 Completed [facility] Vaccine 00:00:00 [facility] Influenza Virus 2013-11-15 Completed [facility] Vaccine 00:00:00 [facility] Influenza Virus 2013-11-15 Completed [facility] Vaccine 00:00:00 [facility] Influenza Virus 2013-11-15 Completed [facility] Vaccine 00:00:00 [facility] Influenza Virus 2013-11-15 Completed [facility] Vaccine 00:00:00 [facility] Influenza Virus 2013-11-15 Completed [facility] Vaccine 00:00:00 [facility] Influenza Virus 2013-11-15 Completed [facility] Vaccine 00:00:00 [facility] Influenza Virus 2013-11-15 Completed [facility] Vaccine 00:00:00 [facility] Influenza Virus 2013-11-15 Completed [facility] Vaccine 00:00:00 [facility] Influenza Virus 2013-11-15 Completed [facility] Vaccine 00:00:00 [facility] Influenza Virus 2013-11-15 Completed [facility] Vaccine 00:00:00 [facility] Influenza Virus 2013-11-15 Completed [facility] Vaccine 00:00:00 [facility] Influenza Virus 2013-11-15 Completed [facility] Vaccine 00:00:00 [facility] Influenza Virus 2013-11-15 Completed [facility] Vaccine 00:00:00 [facility] Influenza Virus 2013-11-15 Completed [facility] Vaccine 00:00:00 [facility] Influenza Virus 2013-11-15 Completed [facility] Vaccine 00:00:00 [facility] Influenza Virus 2013-11-15 Completed [facility] Vaccine 00:00:00 [facility] Influenza Virus 2013-11-15 Completed [facility] Vaccine 00:00:00 [facility] Influenza Virus 2013-11-15 Completed [facility] Vaccine 00:00:00 [facility] Influenza Virus 2013-11-15 Completed [facility] Vaccine 00:00:00 [facility] Influenza Virus 2013-11-15 Completed [facility] Vaccine 00:00:00 [facility] Influenza Virus 2013-11-15 Completed [facility] Vaccine 00:00:00 [facility] Influenza Virus 2013-11-15 Completed [facility] Vaccine 00:00:00 [facility] Influenza Virus 2013-11-15 Completed [facility] Vaccine 00:00:00 [facility] Influenza Virus 2013-11-15 Completed [facility] Vaccine 00:00:00 [facility] Influenza Virus 2013-11-15 Completed [facility] Vaccine 00:00:00 [facility] Influenza Virus 2013-11-15 Completed [facility] Vaccine 00:00:00 [facility] Influenza Virus 2013-11-15 Completed [facility] Vaccine 00:00:00 [facility] Influenza Virus 2013-11-15 Completed [facility] Vaccine 00:00:00 [facility] Influenza Virus 2013-11-15 Completed [facility] Vaccine 00:00:00 [facility] Influenza Virus 2013-11-15 Completed [facility] Vaccine 00:00:00 [facility] Influenza Virus 2013-11-15 Completed [facility] Vaccine 00:00:00 [facility] Influenza Virus 2013-11-15 Completed [facility] Vaccine 00:00:00 [facility] Influenza Virus 2013-11-15 Completed [facility] Vaccine 00:00:00 [facility] Influenza Virus 2013-11-15 Completed [facility] Vaccine 00:00:00 [facility] Influenza Virus 2013-11-15 Completed [facility] Vaccine 00:00:00 [facility] Influenza Virus 2013-11-15 Completed [facility] Vaccine 00:00:00 [facility] Influenza Virus 2013-11-15 Completed [facility] Vaccine 00:00:00 [facility] Influenza Virus 2013-11-15 Completed [facility] Vaccine 00:00:00 [facility] Influenza Virus 2013-11-15 Completed [facility] Vaccine 00:00:00 [facility] Influenza Virus 2013-11-15 Completed [facility] Vaccine 00:00:00 [facility] Influenza Virus 2013-11-15 Completed [facility] Vaccine 00:00:00 [facility] Influenza Virus 2013-11-15 Completed [facility] Vaccine 00:00:00 [facility] Influenza Virus 2013-11-15 Completed [facility] Vaccine 00:00:00 [facility] Influenza Virus 2013-11-15 Completed [facility] Vaccine 00:00:00 [facility] Influenza Virus 2013-11-15 Completed [facility] Vaccine 00:00:00 [facility] Influenza Virus 2013-11-15 Completed [facility] Vaccine 00:00:00 [facility] Influenza Virus 2013-11-15 Completed [facility] Vaccine 00:00:00 [facility] Influenza Virus 2013-11-15 Completed [facility] Vaccine 00:00:00 [facility] Influenza Virus 2013-11-15 Completed [facility] Vaccine 00:00:00 [facility] PPD (TB) 2013-09-08 Completed [facility] 00:00:00 [facility] PPD (TB) 2013-09-08 Completed [facility] 00:00:00 [facility] PPD (TB) 2013-09-08 Completed [facility] 00:00:00 [facility] PPD (TB) 2013-09-08 Completed [facility] 00:00:00 [facility] PPD (TB) 2013-09-08 Completed [facility] 00:00:00 [facility] PPD (TB) 2013-09-08 Completed [facility] 00:00:00 [facility] PPD (TB) 2013-09-08 Completed [facility] 00:00:00 [facility] PPD (TB) 2013-09-08 Completed [facility] 00:00:00 [facility] PPD (TB) 2013-09-08 Completed [facility] 00:00:00 [facility] PPD (TB) 2013-09-08 Completed [facility] 00:00:00 [facility] PPD (TB) 2013-09-08 Completed [facility] 00:00:00 [facility] PPD (TB) 2013-09-08 Completed [facility] 00:00:00 [facility] PPD (TB) 2013-09-08 Completed [facility] 00:00:00 [facility] PPD (TB) 2013-09-08 Completed [facility] 00:00:00 [facility] PPD (TB) 2013-09-08 Completed [facility] 00:00:00 [facility] PPD (TB) 2013-09-08 Completed [facility] 00:00:00 [facility] PPD (TB) 2013-09-08 Completed [facility] 00:00:00 [facility] PPD (TB) 2013-09-08 Completed [facility] 00:00:00 [facility] PPD (TB) 2013-09-08 Completed [facility] 00:00:00 [facility] PPD (TB) 2013-09-08 Completed [facility] 00:00:00 [facility] PPD (TB) 2013-09-08 Completed [facility] 00:00:00 [facility] PPD (TB) 2013-09-08 Completed [facility] 00:00:00 [facility] PPD (TB) 2013-09-08 Completed [facility] 00:00:00 [facility] PPD (TB) 2013-09-08 Completed [facility] 00:00:00 [facility] PPD (TB) 2013-09-08 Completed [facility] 00:00:00 [facility] PPD (TB) 2013-09-08 Completed [facility] 00:00:00 [facility] PPD (TB) 2013-09-08 Completed [facility] 00:00:00 [facility] PPD (TB) 2013-09-08 Completed [facility] 00:00:00 [facility] PPD (TB) 2013-09-08 Completed [facility] 00:00:00 [facility] PPD (TB) 2013-09-08 Completed [facility] 00:00:00 [facility] PPD (TB) 2013-09-08 Completed [facility] 00:00:00 [facility] PPD (TB) 2013-09-08 Completed [facility] 00:00:00 [facility] PPD (TB) 2013-09-08 Completed [facility] 00:00:00 [facility] PPD (TB) 2013-09-08 Completed [facility] 00:00:00 [facility] PPD (TB) 2013-09-08 Completed [facility] 00:00:00 [facility] PPD (TB) 2013-09-08 Completed [facility] 00:00:00 [facility] PPD (TB) 2013-09-08 Completed [facility] 00:00:00 [facility] PPD (TB) 2013-09-08 Completed [facility] 00:00:00 [facility] PPD (TB) 2013-09-08 Completed [facility] 00:00:00 [facility] PPD (TB) 2013-09-08 Completed [facility] 00:00:00 [facility] PPD (TB) 2013-09-08 Completed [facility] 00:00:00 [facility] PPD (TB) 2013-09-08 Completed [facility] 00:00:00 [facility] PPD (TB) 2013-09-08 Completed [facility] 00:00:00 [facility] PPD (TB) 2013-09-08 Completed [facility] 00:00:00 [facility] PPD (TB) 2013-09-08 Completed [facility] 00:00:00 [facility] PPD (TB) 2013-09-08 Completed [facility] 00:00:00 [facility] PPD (TB) 2013-09-08 Completed [facility] 00:00:00 [facility] PPD (TB) 2013-09-08 Completed [facility] 00:00:00 [facility] PPD (TB) 2013-09-08 Completed [facility] 00:00:00 [facility] PPD (TB) 2013-09-08 Completed [facility] 00:00:00 [facility] PPD (TB) 2013-09-08 Completed [facility] 00:00:00 [facility] PPD (TB) 2013-09-08 Completed [facility] 00:00:00 [facility] PPD (TB) 2013-09-08 Completed [facility] 00:00:00 [facility] PPD (TB) 2013-09-08 Completed [facility] 00:00:00 [facility] PPD (TB) 2013-09-08 Completed [facility] 00:00:00 [facility] PPD (TB) 2013-09-08 Completed [facility] 00:00:00 [facility] PPD (TB) 2013-09-08 Completed [facility] 00:00:00 [facility] PPD (TB) 2013-09-08 Completed [facility] 00:00:00 [facility] PPD (TB) 2013-09-08 Completed [facility] 00:00:00 [facility] PPD (TB) 2013-09-08 Completed [facility] 00:00:00 [facility] PPD (TB) 2013-09-08 Completed [facility] 00:00:00 [facility] PPD (TB) 2013-09-08 Completed [facility] 00:00:00 [facility] PPD (TB) 2013-09-08 Completed [facility] 00:00:00 [facility] PPD (TB) 2013-09-08 Completed [facility] 00:00:00 [facility] PPD (TB) 2013-09-08 Completed [facility] 00:00:00 [facility] PPD (TB) 2013-09-08 Completed [facility] 00:00:00 [facility] PPD (TB) 2013-09-08 Completed [facility] 00:00:00 [facility] PPD (TB) 2013-09-08 Completed [facility] 00:00:00 [facility] PPD (TB) 2013-09-08 Completed [facility] 00:00:00 [facility] Hep B, Adol or Pedi 2012-12-28 [...] 2012-12-28 Completed [facility] Dosage 00:00:00 [facility] Hep B, Adol or Pedi 2012-12-28 Completed [facility] Dosage 00:00:00 [facility] Influenza Virus 2012-11-20 Completed [facility] Vaccine 00:00:00 [facility] Influenza Virus 2012-11-20 Completed [facility] Vaccine 00:00:00 [facility] Influenza Virus 2012-11-20 Completed [facility] Vaccine 00:00:00 [facility] Influenza Virus 2012-11-20 Completed [facility] Vaccine 00:00:00 [facility] Influenza Virus 2012-11-20 Completed [facility] Vaccine 00:00:00 [facility] Influenza Virus 2012-11-20 Completed [facility] Vaccine 00:00:00 [facility] Influenza Virus 2012-11-20 Completed [facility] Vaccine 00:00:00 [facility] Influenza Virus 2012-11-20 Completed [facility] Vaccine 00:00:00 [facility] Influenza Virus 2012-11-20 Completed [facility] Vaccine 00:00:00 [facility] Influenza Virus 2012-11-20 Completed [facility] Vaccine 00:00:00 [facility] Influenza Virus 2012-11-20 Completed [facility] Vaccine 00:00:00 [facility] Influenza Virus 2012-11-20 Completed [facility] Vaccine 00:00:00 [facility] Influenza Virus 2012-11-20 Completed [facility] Vaccine 00:00:00 [facility] Influenza Virus 2012-11-20 Completed [facility] Vaccine 00:00:00 [facility] Influenza Virus 2012-11-20 Completed [facility] Vaccine 00:00:00 [facility] Influenza Virus 2012-11-20 Completed [facility] Vaccine 00:00:00 [facility] Influenza Virus 2012-11-20 Completed [facility] Vaccine 00:00:00 [facility] Influenza Virus 2012-11-20 Completed [facility] Vaccine 00:00:00 [facility] Influenza Virus 2012-11-20 Completed [facility] Vaccine 00:00:00 [facility] Influenza Virus 2012-11-20 Completed [facility] Vaccine 00:00:00 [facility] Influenza Virus 2012-11-20 Completed [facility] Vaccine 00:00:00 [facility] Influenza Virus 2012-11-20 Completed [facility] Vaccine 00:00:00 [facility] Influenza Virus 2012-11-20 Completed [facility] Vaccine 00:00:00 [facility] Influenza Virus 2012-11-20 Completed [facility] Vaccine 00:00:00 [facility] Influenza Virus 2012-11-20 Completed [facility] Vaccine 00:00:00 [facility] Influenza Virus 2012-11-20 Completed [facility] Vaccine 00:00:00 [facility] Influenza Virus 2012-11-20 Completed [facility] Vaccine 00:00:00 [facility] Influenza Virus 2012-11-20 Completed [facility] Vaccine 00:00:00 [facility] Influenza Virus 2012-11-20 Completed [facility] Vaccine 00:00:00 [facility] Influenza Virus 2012-11-20 Completed [facility] Vaccine 00:00:00 [facility] Influenza Virus 2012-11-20 Completed [facility] Vaccine 00:00:00 [facility] Influenza Virus 2012-11-20 Completed [facility] Vaccine 00:00:00 [facility] Influenza Virus 2012-11-20 Completed [facility] Vaccine 00:00:00 [facility] Influenza Virus 2012-11-20 Completed [facility] Vaccine 00:00:00 [facility] Influenza Virus 2012-11-20 Completed [facility] Vaccine 00:00:00 [facility] Influenza Virus 2012-11-20 Completed [facility] Vaccine 00:00:00 [facility] Influenza Virus 2012-11-20 Completed [facility] Vaccine 00:00:00 [facility] Influenza Virus 2012-11-20 Completed [facility] Vaccine 00:00:00 [facility] Influenza Virus 2012-11-20 Completed [facility] Vaccine 00:00:00 [facility] Influenza Virus 2012-11-20 Completed [facility] Vaccine 00:00:00 [facility] Influenza Virus 2012-11-20 Completed [facility] Vaccine 00:00:00 [facility] Influenza Virus 2012-11-20 Completed [facility] Vaccine 00:00:00 [facility] Influenza Virus 2012-11-20 Completed [facility] Vaccine 00:00:00 [facility] Influenza Virus 2012-11-20 Completed [facility] Vaccine 00:00:00 [facility] Influenza Virus 2012-11-20 Completed [facility] Vaccine 00:00:00 [facility] Influenza Virus 2012-11-20 Completed [facility] Vaccine 00:00:00 [facility] Influenza Virus 2012-11-20 Completed [facility] Vaccine 00:00:00 [facility] Influenza Virus 2012-11-20 Completed [facility] Vaccine 00:00:00 [facility] Influenza Virus 2012-11-20 Completed [facility] Vaccine 00:00:00 [facility] Influenza Virus 2012-11-20 Completed [facility] Vaccine 00:00:00 [facility] Influenza Virus 2012-11-20 Completed [facility] Vaccine 00:00:00 [facility] Influenza Virus 2012-11-20 Completed [facility] Vaccine 00:00:00 [facility] Influenza Virus 2012-11-20 Completed [facility] Vaccine 00:00:00 [facility] Influenza Virus 2012-11-20 Completed [facility] Vaccine 00:00:00 [facility] Influenza Virus 2012-11-20 Completed [facility] Vaccine 00:00:00 [facility] Influenza Virus 2012-11-20 Completed [facility] Vaccine 00:00:00 [facility] Influenza Virus 2012-11-20 Completed [facility] Vaccine 00:00:00 [facility] Influenza Virus 2012-11-20 Completed [facility] Vaccine 00:00:00 [facility] Influenza Virus 2012-11-20 Completed [facility] Vaccine 00:00:00 [facility] Influenza Virus 2012-11-20 Completed [facility] Vaccine 00:00:00 [facility] Influenza Virus 2012-11-20 Completed [facility] Vaccine 00:00:00 [facility] Influenza Virus 2012-11-20 Completed [facility] Vaccine 00:00:00 [facility] Influenza Virus 2012-11-20 Completed [facility] Vaccine 00:00:00 [facility] Influenza Virus 2012-11-20 Completed [facility] Vaccine 00:00:00 [facility] Influenza Virus 2012-11-20 Completed [facility] Vaccine 00:00:00 [facility] Influenza Virus 2012-11-20 Completed [facility] Vaccine 00:00:00 [facility] Influenza Virus 2012-11-20 Completed [facility] Vaccine 00:00:00 [facility] Influenza Virus 2012-11-20 Completed [facility] Vaccine 00:00:00 [facility] Influenza Virus 2012-11-20 Completed [facility] Vaccine 00:00:00 [facility] Hep B, Adol or Pedi 2012-08-26 Completed [facility] Dosage 00:00:00 [facility] Hep B, Adol or Pedi 2012-08-26 Completed [facility] Dosage 00:00:00 [facility] Hep B, Adol or Pedi 2012-08-26 Completed [facility] Dosage 00:00:00 [facility] Hep B, Adol or Pedi 2012-08-26 Completed [facility] Dosage 00:00:00 [facility] Hep B, Adol or Pedi 2012-08-26 [...] 2012-07-27 Completed [facility] Dosage 00:00:00 [facility] Hep B, Adol or Pedi 2012-07-27 Completed [facility] Dosage 00:00:00 [facility] Hep B, Adol or Pedi 2012-07-27 Completed [facility] Dosage 00:00:00 [facility] Hep B, Adol or Pedi 2012-07-27 Completed [facility] Dosage 00:00:00 [facility] Hep B, Adol or Pedi 2012-07-27 Completed [facility] Dosage 00:00:00 [facility] Hep B, Adol or Pedi 2012-07-27 Completed [facility] Dosage 00:00:00 [facility] Hep B, Adol or Pedi 2012-07-27 Completed [facility] Dosage 00:00:00 [facility] Hep B, Adol or Pedi 2012-07-27 Completed [facility] Dosage 00:00:00 [facility] Hep B, Adol or Pedi 2012-07-27 Completed [facility] Dosage 00:00:00 [facility] Influenza Virus 2012-07-08 Completed [facility] Vaccine 00:00:00 [facility] Influenza Virus 2012-07-08 Completed [facility] Vaccine 00:00:00 [facility] Influenza Virus 2012-07-08 Completed [facility] Vaccine 00:00:00 [facility] Influenza Virus 2012-07-08 Completed [facility] Vaccine 00:00:00 [facility] Influenza Virus 2012-07-08 Completed [facility] Vaccine 00:00:00 [facility] Influenza Virus 2012-07-08 Completed [facility] Vaccine 00:00:00 [facility] Influenza Virus 2012-07-08 Completed [facility] Vaccine 00:00:00 [facility] Influenza Virus 2012-07-08 Completed [facility] Vaccine 00:00:00 [facility] Influenza Virus 2012-07-08 Completed [facility] Vaccine 00:00:00 [facility] Influenza Virus 2012-07-08 Completed [facility] Vaccine 00:00:00 [facility] Influenza Virus 2012-07-08 Completed [facility] Vaccine 00:00:00 [facility] Influenza Virus 2012-07-08 Completed [facility] Vaccine 00:00:00 [facility] Influenza Virus 2012-07-08 Completed [facility] Vaccine 00:00:00 [facility] Influenza Virus 2012-07-08 Completed [facility] Vaccine 00:00:00 [facility] Influenza Virus 2012-07-08 Completed [facility] Vaccine 00:00:00 [facility] Influenza Virus 2012-07-08 Completed [facility] Vaccine 00:00:00 [facility] Influenza Virus 2012-07-08 Completed [facility] Vaccine 00:00:00 [facility] Influenza Virus 2012-07-08 Completed [facility] Vaccine 00:00:00 [facility] Influenza Virus 2012-07-08 Completed [facility] Vaccine 00:00:00 [facility] Influenza Virus 2012-07-08 Completed [facility] Vaccine 00:00:00 [facility] Influenza Virus 2012-07-08 Completed [facility] Vaccine 00:00:00 [facility] Influenza Virus 2012-07-08 Completed [facility] Vaccine 00:00:00 [facility] Influenza Virus 2012-07-08 Completed [facility] Vaccine 00:00:00 [facility] Influenza Virus 2012-07-08 Completed [facility] Vaccine 00:00:00 [facility] Influenza Virus 2012-07-08 Completed [facility] Vaccine 00:00:00 [facility] Influenza Virus 2012-07-08 Completed [facility] Vaccine 00:00:00 [facility] Influenza Virus 2012-07-08 Completed [facility] Vaccine 00:00:00 [facility] Influenza Virus 2012-07-08 Completed [facility] Vaccine 00:00:00 [facility] Influenza Virus 2012-07-08 Completed [facility] Vaccine 00:00:00 [facility] Influenza Virus 2012-07-08 Completed [facility] Vaccine 00:00:00 [facility] Influenza Virus 2012-07-08 Completed [facility] Vaccine 00:00:00 [facility] Influenza Virus 2012-07-08 Completed [facility] Vaccine 00:00:00 [facility] Influenza Virus 2012-07-08 Completed [facility] Vaccine 00:00:00 [facility] Influenza Virus 2012-07-08 Completed [facility] Vaccine 00:00:00 [facility] Influenza Virus 2012-07-08 Completed [facility] Vaccine 00:00:00 [facility] Influenza Virus 2012-07-08 Completed [facility] Vaccine 00:00:00 [facility] Influenza Virus 2012-07-08 Completed [facility] Vaccine 00:00:00 [facility] Influenza Virus 2012-07-08 Completed [facility] Vaccine 00:00:00 [facility] Influenza Virus 2012-07-08 Completed [facility] Vaccine 00:00:00 [facility] Influenza Virus 2012-07-08 Completed [facility] Vaccine 00:00:00 [facility] Influenza Virus 2012-07-08 Completed [facility] Vaccine 00:00:00 [facility] Influenza Virus 2012-07-08 Completed [facility] Vaccine 00:00:00 [facility] Influenza Virus 2012-07-08 Completed [facility] Vaccine 00:00:00 [facility] Influenza Virus 2012-07-08 Completed [facility] Vaccine 00:00:00 [facility] Influenza Virus 2012-07-08 Completed [facility] Vaccine 00:00:00 [facility] Influenza Virus 2012-07-08 Completed [facility] Vaccine 00:00:00 [facility] Influenza Virus 2012-07-08 Completed [facility] Vaccine 00:00:00 [facility] Influenza Virus 2012-07-08 Completed [facility] Vaccine 00:00:00 [facility] Influenza Virus 2012-07-08 Completed [facility] Vaccine 00:00:00 [facility] Influenza Virus 2012-07-08 Completed [facility] Vaccine 00:00:00 [facility] Influenza Virus 2012-07-08 Completed [facility] Vaccine 00:00:00 [facility] Influenza Virus 2012-07-08 Completed [facility] Vaccine 00:00:00 [facility] Influenza Virus 2012-07-08 Completed [facility] Vaccine 00:00:00 [facility] Influenza Virus 2012-07-08 Completed [facility] Vaccine 00:00:00 [facility] Influenza Virus 2012-07-08 Completed [facility] Vaccine 00:00:00 [facility] Influenza Virus 2012-07-08 Completed [facility] Vaccine 00:00:00 [facility] Influenza Virus 2012-07-08 Completed [facility] Vaccine 00:00:00 [facility] Influenza Virus 2012-07-08 Completed [facility] Vaccine 00:00:00 [facility] Influenza Virus 2012-07-08 Completed [facility] Vaccine 00:00:00 [facility] Influenza Virus 2012-07-08 Completed [facility] Vaccine 00:00:00 [facility] Influenza Virus 2012-07-08 Completed [facility] Vaccine 00:00:00 [facility] Influenza Virus 2012-07-08 Completed [facility] Vaccine 00:00:00 [facility] Influenza Virus 2012-07-08 Completed [facility] Vaccine 00:00:00 [facility] Influenza Virus 2012-07-08 Completed [facility] Vaccine 00:00:00 [facility] Influenza Virus 2012-07-08 Completed [facility] Vaccine 00:00:00 [facility] Influenza Virus 2012-07-08 Completed [facility] Vaccine 00:00:00 [facility] Influenza Virus 2012-07-08 Completed [facility] Vaccine 00:00:00 [facility] Influenza Virus 2012-07-08 Completed [facility] Vaccine 00:00:00 [facility] Influenza Virus 2012-07-08 Completed [facility] Vaccine 00:00:00 [facility] Hep B, Adol or Pedi 2012-06-19 Completed [facility] Dosage 00:00:00 [facility] Pneumococcal 13 2012-06-19 Completed [facility] Conjugate, PCV13 00:00:00 [facility] (Prevnar 13) [facility] Hep B, Adol or Pedi 2012-06-19 Completed [facility] Dosage 00:00:00 [facility] Pneumococcal 13 2012-06-19 Completed [facility] Conjugate, PCV13 00:00:00 [facility] (Prevnar 13) [facility] Hep B, Adol or Pedi 2012-06-19 Completed [facility] Dosage 00:00:00 [facility] Pneumococcal 13 2012-06-19 Completed [facility] Conjugate, PCV13 00:00:00 [facility] (Prevnar 13) [facility] Hep B, Adol or Pedi 2012-06-19 Completed [facility] Dosage 00:00:00 [facility] Pneumococcal 13 2012-06-19 Completed [facility] Conjugate, PCV13 00:00:00 [facility] ([facility] Hep B, Adol or Pedi 2012-06-19 Completed [facility] Dosage 00:00:00 [facility] Pneumococcal 13 2012-06-19 Completed [facility] Conjugate, PCV13 00:00:00 [facility] (Prevnar 13) [facility] Hep B, Adol or Pedi 2012-06-19 Completed [facility] Dosage 00:00:00 [facility] Pneumococcal 13 2012-06-19 Completed [facility] Conjugate, PCV13 00:00:00 [facility] (Pre[facility]ar 13) [facility] Hep B, Adol or Pedi 2012-06-19 Completed [facility] Dosage 00:00:00 [facility] Pneumococcal 13 2012-06-19 Completed [facility] Conjugate, PCV13 00:00:00 [facility] (Pre[facility]ar 13) [facility] Hep B, Adol or Pedi 2012-06-19 Completed [facility] Dosage 00:00:00 [facility] Pneumococcal 13 2012-06-19 Completed [facility] Conjugate, PCV13 00:00:00 [facility] (Prevnar 13) [facility] Hep B, Adol or Pedi 2012-06-19 Completed [facility] Dosage 00:00:00 [facility] Pneumococcal 13 2012-06-19 Completed [facility] Conjugate, PCV13 00:00:00 [facility] (Prevnar 13) [facility] Hep B, Adol or Pedi 2012-06-19 Completed [facility] Dosage 00:00:00 [facility] Pneumococcal 13 2012-06-19 Completed [facility] Conjugate, PCV13 00:00:00 [facility] (Prevnar 13) [facility] Hep B, Adol or Pedi 2012-06-19 Completed [facility] Dosage 00:00:00 [facility] Pneumococcal 13 2012-06-19 Completed [facility] Conjugate, PCV13 00:00:00 [facility] (Pre[facility]ar [facility] Hep B, Adol or Pedi 2012-06-19 Completed [facility] Dosage 00:00:00 [facility] Pneumococcal 13 2012-06-19 Completed [facility] Conjugate, PCV13 00:00:00 [facility] (Prevnar 13) [facility] Hep B, Adol or Pedi 2012-06-19 Completed [facility] Dosage 00:00:00 [facility] Pneumococcal 13 2012-06-19 Completed [facility] Conjugate, PCV13 00:00:00 [facility] (Prevnar 13) [facility] Hep B, Adol or Pedi 2012-06-19 Completed [facility] Dosage 00:00:00 [facility] Pneumococcal 13 2012-06-19 Completed [facility] Conjugate, PCV13 00:00:00 [facility] (Pre[facility]ar 13[facility] Hep B, Adol or Pedi 2012-06-19 Completed [facility] Dosage 00:00:00 [facility] Pneumococcal 13 2012-06-19 Completed [facility] Conjugate, PCV13 00:00:00 [facility] (Prevnar 13) [facility] Hep B, Adol or Pedi 2012-06-19 Completed [facility] Dosage 00:00:00 [facility] Pneumococcal 13 2012-06-19 Completed [facility] Conjugate, PCV13 00:00:00 [facility] (Prevnar 13) [facility] Hep B, Adol or Pedi 2012-06-19 Completed [facility] Dosage 00:00:00 [facility] Pneumococcal 13 2012-06-19 Completed [facility] Conjugate, PCV13 00:00:00 [facility] (Prevnar 13) [facility] Hep B, Adol or Pedi 2012-06-19 Completed [facility] Dosage 00:00:00 [facility] Pneumococcal 13 2012-06-19 Completed [facility] Conjugate, PCV13 00:00:00 [facility] (Prevnar 13) [facility] Hep B, Adol or Pedi 2012-06-19 Completed [facility] Dosage 00:00:00 [facility] Pneumococcal 13 2012-06-19 Completed [facility] Conjugate, PCV13 00:00:00 [facility] (Prevnar 13) [facility] Hep B, Adol or Pedi 2012-06-19 Completed [facility] Dosage 00:00:00 [facility] Pneumococcal 13 2012-06-19 Completed [facility] Conjugate, PCV13 00:00:00 [facility] (Prevnar 13) [facility] Hep B, Adol or Pedi 2012-06-19 Completed [facility] Dosage 00:00:00 [facility] Pneumococcal 13 2012-06-19 Completed [facility] Conjugate, PCV13 00:00:00 [facility] (Prevnar 13) [facility] Hep B, Adol or Pedi 2012-06-19 Completed [facility] Dosage 00:00:00 [facility] Pneumococcal 13 2012-06-19 Completed [facility] Conjugate, PCV13 00:00:00 [facility] (Prevnar 13) [facility] Hep B, Adol or Pedi 2012-06-19 Completed [facility] Dosage 00:00:00 [facility] Pneumococcal 13 2012-06-19 Completed [facility] Conjugate, PCV13 00:00:00 [facility]Pre[facility] Hep B, Adol or Pedi 2012-06-19 Completed [facility] Dosage 00:00:00 [facility] Pneumococcal 13 2012-06-19 Completed [facility] Conjugate, PCV13 00:00:00 [facility] (Prevnar 13) [facility] Hep B, Adol or Pedi 2012-06-19 Completed [facility] Dosage 00:00:00 [facility] Pneumococcal 13 2012-06-19 Completed [facility] Conjugate, PCV13 00:00:00 [facility] (Prevnar 13) [facility] Hep B, Adol or Pedi 2012-06-19 Completed [facility] Dosage 00:00:00 [facility] Pneumococcal 13 2012-06-19 Completed [facility] Conjugate, PCV13 00:00:00 [facility] (Prevnar 13) [facility] Hep B, Adol or Pedi 2012-06-19 Completed [facility] Dosage 00:00:00 [facility] Pneumococcal 13 2012-06-19 Completed [facility] Conjugate, PCV13 00:00:00 [facility] (Prevnar 13) [facility] Hep B, Adol or Pedi 2012-06-19 Completed [facility] Dosage 00:00:00 [facility] Pneumococcal 13 2012-06-19 Completed [facility] Conjugate, PCV13 00:00:00 [facility] (Prevnar 13) [facility] Hep B, Adol or Pedi 2012-06-19 Completed [facility] Dosage 00:00:00 [facility] Pneumococcal 13 2012-06-19 Completed [facility] Conjugate, PCV13 00:00:00 [facility] (Prevnar 13) [facility] Hep B, Adol or Pedi 2012-06-19 Completed [facility] Dosage 00:00:00 [facility] Pneumococcal 13 2012-06-19 Completed [facility] Conjugate, PCV13 00:00:00 [facility] (Prevnar 13) [facility] Hep B, Adol or Pedi 2012-06-19 Completed [facility] Dosage 00:00:00 [facility] Pneumococcal 13 2012-06-19 Completed [facility] Conjugate, PCV13 00:00:00 [facility] (Prevnar [facility] Hep B, Adol or Pedi 2012-06-19 Completed [facility] Dosage 00:00:00 [facility] Pneumococcal 13 2012-06-19 Completed [facility] Conjugate, PCV13 00:00:00 [facility] (Prevnar 13) [facility] Hep B, Adol or Pedi 2012-06-19 Completed [facility] Dosage 00:00:00 [facility] Pneumococcal 13 2012-06-19 Completed [facility] Conjugate, PCV13 00:00:00 [facility] (Prevnar 13) [facility] Hep B, Adol or Pedi 2012-06-19 Completed [facility] Dosage 00:00:00 [facility] Pneumococcal 13 2012-06-19 Completed [facility] Conjugate, PCV13 00:00:00 [facility] (Prevnar 13) [facility] Hep B, Adol or Pedi 2012-06-19 Completed [facility] Dosage 00:00:00 [facility] Pneumococcal 13 2012-06-19 Completed [facility] Conjugate, PCV13 00:00:00 [facility] (Prevnar 13) [facility] Hep B, Adol or Pedi 2012-06-19 Completed [facility] Dosage 00:00:00 [facility] Pneumococcal 13 2012-06-19 Completed [facility] Conjugate, PCV13 00:00:00 [facility] (Prevnar 13) [facility] Hep B, Adol or Pedi 2012-06-19 Completed [facility] Dosage 00:00:00 [facility] Pneumococcal 13 2012-06-19 Completed [facility] Conjugate, PCV13 00:00:00 [facility] (Prevnar 13) [facility] Hep B, Adol or Pedi 2012-06-19 Completed [facility] Dosage 00:00:00 [facility] Pneumococcal 13 2012-06-19 Completed [facility] Conjugate, PCV13 00:00:00 [facility] (Prevnar 13) Branch Hep B, Adol or Pedi 2012-06-19 Completed [facility]ive [facility] of Dosage 00:00:00 [facility] Pneumococcal 13 2012-06-19 Completed [facility] of Conjugate, PCV13 00:00:00 [facility] (Prevnar 13) Branch Hep B, Adol or Pedi 2012-06-19 Completed [facility] of Dosage 00:00:00 [facility] Pneumococcal 13 2012-06-19 Completed [facility] Conjugate, PCV13 00:00:00 [facility] (Prevnar 13) [facility] Hep B, Adol or Pedi 2012-06-19 Completed [facility] of Dosage 00:00:00 [facility] Pneumococcal 13 2012-06-19 Completed [facility] of Conjugate, PCV13 00:00:00 [facility] (Prevnar 13) Branch Hep B, Adol or Pedi 2012-06-19 Completed [facility] of Dosage 00:00:00 [facility] Pneumococcal 13 2012-06-19 Completed [facility] of Conjugate, PCV13 00:00:00 [facility] (Prevnar 13) Branch Hep B, Adol or Pedi 2012-06-19 Completed [facility] of Dosage 00:00:00 [facility] Pneumococcal 13 2012-06-19 Completed [facility] of Conjugate, PCV13 00:00:00 [facility] (Prevnar 13) Branch Hep B, Adol or Pedi 2012-06-19 Completed [facility] of Dosage 00:00:00 [facility] Pneumococcal 13 2012-06-19 Completed [facility] Conjugate, PCV13 00:00:00 [facility] (Prevnar 13) Branch Hep B, Adol or Pedi 2012-06-19 Completed [facility] of Dosage 00:00:00 [facility] Pneumococcal 13 2012-06-19 Completed [facility] of Conjugate, PCV13 00:00:00 [facility] (Prevnar 13) Branch Hep B, Adol or Pedi 2012-06-19 Completed [facility] of Dosage 00:00:00 [facility] Pneumococcal 13 2012-06-19 Completed [facility] of Conjugate, PCV13 00:00:00 [facility] (Prevnar 13) Branch Hep B, Adol or Pedi 2012-06-19 Completed [facility] of Dosage 00:00:00 [facility] Pneumococcal 13 2012-06-19 Completed [facility] of Conjugate, PCV13 00:00:00 [facility] (Prevnar 13) Branch Hep B, Adol or Pedi 2012-06-19 Completed [facility] of Dosage 00:00:00 [facility] Pneumococcal 13 2012-06-19 Completed [facility] Conjugate, PCV13 00:00:00 [facility] ([facility]) [facility] Hep B, Adol or Pedi 2012-06-19 Completed [facility] of Dosage 00:00:00 [facility] Pneumococcal 13 2012-06-19 Completed [facility] Conjugate, PCV13 00:00:00 [facility] (Prevnar 13) Branch Hep B, Adol or Pedi 2012-06-19 Completed [facility] of Dosage 00:00:00 [facility] Pneumococcal 13 2012-06-19 Completed [facility] of Conjugate, PCV13 00:00:00 [facility] (Prevnar 13) Branch Hep B, Adol or Pedi 2012-06-19 Completed [facility] of Dosage 00:00:00 [facility] Pneumococcal 13 2012-06-19 Completed [facility] Conjugate, PCV13 00:00:00 [facility] (Prevnar 13) Branch Hep B, Adol or Pedi 2012-06-19 Completed [facility] of Dosage 00:00:00 [facility] Pneumococcal 13 2012-06-19 Completed [facility] of Conjugate, PCV13 00:00:00 [facility] (Prevnar 13) Branch Hep B, Adol or Pedi 2012-06-19 Completed [facility] of Dosage 00:00:00 [facility] Pneumococcal 13 2012-06-19 Completed [facility] of Conjugate, PCV13 00:00:00 [facility] (Prevnar 13) Branch Hep B, Adol or Pedi 2012-06-19 Completed [facility] of Dosage 00:00:00 [facility] Pneumococcal 13 2012-06-19 Completed [facility] of Conjugate, PCV13 00:00:00 [facility] (Prevnar 13) Branch Hep B, Adol or Pedi 2012-06-19 Completed [facility] of Dosage 00:00:00 [facility] Pneumococcal 13 2012-06-19 Completed [facility] Conjugate, PCV13 00:00:00 [facility] (Prevnar 13) Branch Hep B, Adol or Pedi 2012-06-19 Completed [facility] of Dosage 00:00:00 [facility] Pneumococcal 13 2012-06-19 Completed [facility] of Conjugate, PCV13 00:00:00 [facility] (Prevnar 13) Branch Hep B, Adol or Pedi 2012-06-19 Completed [facility] of Dosage 00:00:00 [facility] Pneumococcal 13 2012-06-19 Completed [facility] Conjugate, PCV13 00:00:00 [facility] (Prevnar 13) [facility] Hep B, Adol or Pedi 2012-06-19 Completed [facility] of Dosage 00:00:00 [facility] Pneumococcal 13 2012-06-19 Completed [facility] Conjugate, PCV13 00:00:00 [facility] (Prevnar 13) [facility] Hep B, Adol or Pedi 2012-06-19 Completed [facility] of Dosage 00:00:00 [facility] Pneumococcal 13 2012-06-19 Completed [facility] Conjugate, PCV13 00:00:00 [facility] (Prevnar 13) [facility] Hep B, Adol or Pedi 2012-06-19 Completed [facility] of Dosage 00:00:00 [facility] Pneumococcal 13 2012-06-19 Completed [facility] Conjugate, PCV13 00:00:00 [facility] (Prevnar 13) [facility] Hep B, Adol or Pedi 2012-06-19 Completed [facility] of Dosage 00:00:00 [facility] Pneumococcal 13 2012-06-19 Completed [facility] of Conjugate, PCV13 00:00:00 [facility] (Prevnar 13) [facility] Hep B, Adol or Pedi 2012-06-19 Completed [facility] of Dosage 00:00:00 [facility] Pneumococcal 13 2012-06-19 Completed [facility] of Conjugate, PCV13 00:00:00 [facility] (Prevnar 13) Branch Hep B, Adol or Pedi 2012-06-19 Completed [facility] of Dosage 00:00:00 [facility] Pneumococcal 13 2012-06-19 Completed [facility] Conjugate, PCV13 00:00:00 [facility] (Prevnar 13) [facility] Hep B, Adol or Pedi 2012-06-19 Completed [facility] of Dosage 00:00:00 [facility] Pneumococcal 13 2012-06-19 Completed [facility] Conjugate, PCV13 00:00:00 [facility] (Prevnar 13) [facility] Hep B, Adol or Pedi 2012-06-19 Completed [facility] of Dosage 00:00:00 [facility] Pneumococcal 13 2012-06-19 Completed [facility] Conjugate, PCV13 00:00:00 [facility] (Prevnar 13) Branch Hep B, Adol or Pedi 2012-06-19 Completed [facility]ive [facility] of Dosage 00:00:00 [facility] Pneumococcal 13 2012-06-19 Completed [facility] of Conjugate, PCV13 00:00:00 [facility] (Prevnar 13) Branch Hep B, Adol or Pedi 2012-06-19 Completed [facility] of Dosage 00:00:00 [facility] Pneumococcal 13 2012-06-19 Completed [facility] of Conjugate, PCV13 00:00:00 [facility] (Prevnar 13) Branch Hep B, Adol or Pedi 2012-06-19 Completed [facility] of Dosage 00:00:00 [facility] Pneumococcal 13 2012-06-19 Completed [facility] of Conjugate, PCV13 00:00:00 [facility] (Prevnar 13) Branch Hep B, Adol or Pedi 2012-06-19 Completed [facility]ive [facility] of Dosage 00:00:00 [facility] Pneumococcal 13 2012-06-19 Completed [facility] of Conjugate, PCV13 00:00:00 [facility] (Prevnar 13) Branch PPD (TB) 2012-05-30 Completed University of 00:00:00 [facility] PPD (TB) 2012-05-30 Completed University of 00:00:00 [facility] PPD (TB) 2012-05-30 Completed University of 00:00:00 [facility] PPD (TB) 2012-05-30 Completed University of 00:00:00 [facility] PPD (TB) 2012-05-30 Completed University of 00:00:00 [facility] PPD (TB) 2012-05-30 Completed University of 00:00:00 [facility] PPD (TB) 2012-05-30 Completed [facility] of 00:00:00 [facility] PPD (TB) 2012-05-30 Completed University of 00:00:00 [facility] PPD (TB) 2012-05-30 Completed University of 00:00:00 [facility] PPD (TB) 2012-05-30 Completed [facility] of 00:00:00 [facility] PPD (TB) 2012-05-30 Completed University of 00:00:00 [facility] PPD (TB) 2012-05-30 Completed University of 00:00:00 [facility] PPD (TB) 2012-05-30 Completed University of 00:00:00 [facility] PPD (TB) 2012-05-30 Completed University of 00:00:00 [facility] PPD (TB) 2012-05-30 Completed University of 00:00:00 [facility] PPD (TB) 2012-05-30 Completed University of 00:00:00 [facility] PPD (TB) 2012-05-30 Completed University of 00:00:00 [facility] PPD (TB) 2012-05-30 Completed [facility] of 00:00:00 [facility] PPD (TB) 2012-05-30 Completed University of 00:00:00 [facility] PPD (TB) 2012-05-30 Completed University of 00:00:00 [facility] PPD (TB) 2012-05-30 Completed University of 00:00:00 [facility] PPD (TB) 2012-05-30 Completed University of 00:00:00 [facility] PPD (TB) 2012-05-30 Completed [facility] of 00:00:00 [facility] PPD (TB) 2012-05-30 Completed University of 00:00:00 [facility] PPD (TB) 2012-05-30 Completed University of 00:00:00 [facility] PPD (TB) 2012-05-30 Completed [facility] of 00:00:00 [facility] PPD (TB) 2012-05-30 Completed University of 00:00:00 [facility] PPD (TB) 2012-05-30 Completed [facility] of 00:00:00 [facility] PPD (TB) 2012-05-30 Completed University of 00:00:00 [facility] PPD (TB) 2012-05-30 Completed University of 00:00:00 [facility] PPD (TB) 2012-05-30 Completed University of 00:00:00 [facility] PPD (TB) 2012-05-30 Completed University of 00:00:00 [facility] PPD (TB) 2012-05-30 Completed [facility] of 00:00:00 [facility] PPD (TB) 2012-05-30 Completed University of 00:00:00 [facility] PPD (TB) 2012-05-30 Completed University of 00:00:00 [facility] PPD (TB) 2012-05-30 Completed University of 00:00:00 [facility] PPD (TB) 2012-05-30 Completed [facility] of 00:00:00 [facility] PPD (TB) 2012-05-30 Completed University of 00:00:00 [facility] PPD (TB) 2012-05-30 Completed [facility] of 00:00:00 [facility] PPD (TB) 2012-05-30 Completed [facility] of 00:00:00 [facility] PPD (TB) 2012-05-30 Completed [facility] of 00:00:00 [facility] PPD (TB) 2012-05-30 Completed [facility] of 00:00:00 [facility] PPD (TB) 2012-05-30 Completed [facility] of 00:00:00 [facility] PPD (TB) 2012-05-30 Completed University of 00:00:00 [facility] PPD (TB) 2012-05-30 Completed University of 00:00:00 [facility] PPD (TB) 2012-05-30 Completed University of 00:00:00 [facility] PPD (TB) 2012-05-30 Completed [facility] of 00:00:00 [facility] PPD (TB) 2012-05-30 Completed [facility] of 00:00:00 [facility] PPD (TB) 2012-05-30 Completed [facility] of 00:00:00 [facility] PPD (TB) 2012-05-30 Completed [facility] of 00:00:00 [facility] PPD (TB) 2012-05-30 Completed [facility] of 00:00:00 [facility] PPD (TB) 2012-05-30 Completed [facility] of 00:00:00 [facility] PPD (TB) 2012-05-30 Completed [facility] of 00:00:00 [facility] PPD (TB) 2012-05-30 Completed [facility] of 00:00:00 [facility] PPD (TB) 2012-05-30 Completed [facility] of 00:00:00 [facility] PPD (TB) 2012-05-30 Completed [facility] of 00:00:00 [facility] PPD (TB) 2012-05-30 Completed University of 00:00:00 [facility] PPD (TB) 2012-05-30 Completed [facility] of 00:00:00 [facility] PPD (TB) 2012-05-30 Completed [facility] of 00:00:00 [facility] PPD (TB) 2012-05-30 Completed [facility] of 00:00:00 [facility] PPD (TB) 2012-05-30 Completed [facility] of 00:00:00 [facility] PPD (TB) 2012-05-30 Completed [facility] of 00:00:00 [facility] PPD (TB) 2012-05-30 Completed [facility] of 00:00:00 [facility] PPD (TB) 2012-05-30 Completed [facility] of 00:00:00 [facility] PPD (TB) 2012-05-30 Completed [facility] of 00:00:00 [facility] PPD (TB) 2012-05-30 Completed [facility] of 00:00:00 [facility] PPD (TB) 2012-05-30 Completed [facility] of 00:00:00 [facility] PPD (TB) 2012-05-30 Completed [facility] of 00:00:00 [facility] PPD (TB) 2012-05-30 Completed [facility] of 00:00:00 [facility] Hep B, Adol or Pedi Unknown Completed [facility]ive [facility]ity of Dosage [facility] Hep B, Adol or Pedi Unknown Completed [facility] of Dosage [facility] Hep B, Adol or Pedi Unknown Completed [facility] of Dosage [facility] Hep B, Adol or Pedi Unknown Completed [facility]ive [facility]ity of Dosage [facility] Influenza Virus Unknown Completed [facility]it y of Vaccine [facility] Influenza Virus Unknown Completed [facility] of Vaccine [facility] Influenza Virus Unknown Completed [facility] Vaccine [facility] Influenza Virus Unknown Completed [facility] Vaccine [facility] Pneumococcal 13 Unknown Completed [facility] of Conjugate, PCV13 [facility] (Prevnar 13) Branch PPD (TB) Unknown Completed [facility] PPD (TB) Unknown Completed [facility] PPD (TB) Unknown Completed [facility] PPD (TB) Unknown Completed [facility] Influenza Virus Unknown Completed [facility] Pneumococcal 13 Unknown Completed [facility] of Conjugate, PCV13 [facility] (Prevnar 13) Branch Influenza Virus Unknown Completed [facility] Vaccine [facility] Influenza Virus Unknown Completed [facility] of Vaccine [facility] Hep B, Adol or Pedi Unknown Completed [facility] of Dosage [facility] Hep B, Adol or Pedi Unknown Completed [facility] of Dosage [facility] Hep B, Adol or Pedi Unknown Completed [facility] of Dosage [facility] Hep B, Adol or Pedi Unknown Completed [facility] of Dosage [facility] Influenza Virus Unknown Completed [facility] Vaccine [facility] Influenza Virus Unknown Completed [facility] Vaccine [facility] Influenza Virus Unknown Completed [facility] Vacc[facility] Influenza Virus Unknown Completed [facility] Vaccine [facility] Pneumococcal 13 Unknown Completed [facility] of Conjugate, PCV13 [facility] (Prevnar 13) Branch PPD (TB) Unknown Completed [facility] PPD (TB) Unknown Completed [facility] PPD (TB) Unknown Completed [facility] PPD (TB) Unknown Completed [facility] Influenza Virus Unknown Completed [facility] Pneumococcal 13 Unknown Completed [facility] of Conjugate, PCV13 [facility] (Prevnar 13) Branch Influenza Virus Unknown Completed [facility] Influenza Virus Unknown Completed [facility] of Vaccine [facility] Hep B, Adol or Pedi Unknown Completed [facility] rsity of Dosage [facility] Hep B, Adol or Pedi Unknown Completed [facility] of Dosage [facility] Hep B, Adol or Pedi Unknown Completed [facility] of Dosage [facility] Hep B, Adol or Pedi Unknown Completed [facility] Influenza Virus Unknown Completed [facility] of Vaccine [facility] Influenza Virus Unknown Completed [facility] Influenza Virus Unknown Completed [facility] Influenza Virus Unknown Completed [facility] Pneumococcal 13 Unknown Completed [facility] of Conjugate, PCV13 [facility] (Prevnar 13) Branch PPD (TB) Unknown Completed [facility] PPD (TB) Unknown Completed [facility] PPD (TB) Unknown Completed [facility] PPD (TB) Unknown Completed [facility] Influenza Virus Unknown Completed [facility] Pneumococcal 13 Unknown Completed [facility] of Conjugate, PCV13 [facility] (Prevnar 13) Branch Influenza Virus Unknown Completed [facility] Vaccine [facility] Influenza Virus Unknown Completed [facility] Vaccine [facility] Hep B, Adol or Pedi Unknown Completed [facility]ity of Dosage [facility] Hep B, Adol or Pedi Unknown Completed [facility] of Dosage [facility] Hep B, Adol or Pedi Unknown Completed [facility] of Dosage [facility] Hep B, Adol or Pedi Unknown Completed [facility] of Dosage [facility] Influenza Virus Unknown Completed [facility] of Vaccine [facility] Influenza Virus Unknown Completed [facility] [place] Influenza Virus Unknown Completed [facility] Vaccine [facility] Influenza Virus Unknown Completed [facility] Pneumococcal 13 Unknown Completed [facility] of Conjugate, PCV13 [facility] (Prevnar 13) Branch PPD (TB) Unknown Completed [facility] PPD (TB) Unknown Completed [facility] PPD (TB) Unknown Completed [facility] PPD (TB) Unknown Completed [facility] Influenza Virus Unknown Completed [facility] Pneumococcal 13 Unknown Completed [facility] of Conjugate, PCV13 [facility] (Prevnar 13) [place] Influenza Virus Unknown Completed [facility] Influenza Virus Unknown Completed [facility] of Vaccine [facility] Hep B, Adol or Pedi Unknown Completed [facility]ity of Dosage [facility] Hep B, Adol or Pedi Unknown Completed [facility]ity of Dosage [facility] Hep B, Adol or Pedi Unknown Completed [facility] of Dosage [facility] Hep B, Adol or Pedi Unknown Completed [facility] of [facility] Influenza Virus Unknown Completed [facility] Influenza Virus Unknown Completed [facility] Influenza Virus Unknown Completed [facility] Influenza Virus Unknown Completed [facility] Pneumococcal 13 Unknown Completed [facility] of Conjugate, PCV13 [facility] (Prevnar 13) [place] PPD (TB) Unknown Completed [facility] PPD (TB) Unknown Completed [facility] PPD (TB) Unknown Completed [facility] PPD (TB) Unknown Completed [facility] Influenza Virus Unknown Completed [facility] Pneumococcal 13 Unknown Completed [facility] of Conjugate, PCV13 [facility] (Prevnar 13) Branch Influenza Virus Unknown Completed [facility] Influenza Virus Unknown Completed [facility] Hep B, Adol or Pedi Unknown Completed [facility]ity of Dosage [facility] Hep B, Adol or Pedi Unknown Completed [facility] of Dosage [facility] Hep B, Adol or Pedi Unknown Completed [facility] of Dosage [facility] Hep B, Adol or Pedi Unknown Completed [facility] of Dosage [facility] Influenza Virus Unknown Completed [facility] of Vaccine [facility] Influenza Virus Unknown Completed [facility] Vaccine [facility] Influenza Virus Unknown Completed [facility] Vaccine [facility] Influenza Virus Unknown Completed [facility] Pneumococcal 13 Unknown Completed [facility] of Conjugate, PCV13 [facility] (Prevnar 13) [place] PPD (TB) Unknown Completed [facility] PPD (TB) Unknown Completed [facility] PPD (TB) Unknown Completed [facility] PPD (TB) Unknown Completed [facility] Influenza Virus Unknown Completed [facility] Pneumococcal 13 Unknown Completed [facility] of Conjugate, PCV13 [facility] (Prevnar 13) [place] Influenza Virus Unknown Completed [facility] Influenza Virus Unknown Completed [facility] Vaccine [facility] Hep B, Adol or Pedi Unknown Completed [facility] rsity of Dosage [facility] Hep B, Adol or Pedi Unknown Completed [facility]ity of Dosage [facility] Hep B, Adol or Pedi Unknown Completed [facility]ity of Dosage [facility] Hep B, Adol or Pedi Unknown Completed [facility]ity of Dosage [facility] Influenza Virus Unknown Completed [facility] Influenza Virus Unknown Completed [facility] Influenza Virus Unknown Completed [facility] Influenza Virus Unknown Completed [facility] Pneumococcal 13 Unknown Completed [facility] of Conjugate, PCV13 [facility] (Prevnar 13) [place] PPD (TB) Unknown Completed [facility] PPD (TB) Unknown Completed [facility] PPD (TB) Unknown Completed [facility] PPD (TB) Unknown Completed [facility] Influenza Virus Unknown Completed [facility] Pneumococcal 13 Unknown Completed [facility] of Conjugate, PCV13 [facility] (Prevnar 13) [place] Influenza Virus Unknown Completed [facility] Influenza Virus Unknown Completed [facility] Vital Signs Vital Name Observation Time Observation Value Comments Source Systolic blood 2023-01-14 15:10:00 190 mm[Hg] Univer sity of pressure [facility] Diastolic blood 2023-01-14 15:10:00 77 mm[Hg] Unive rsity of [facility] Heart rate 2023-01-14 15:10:00 59 /min [facility] acute hospital Body height 2023-01-14 15:10:00 167.6 cm General acute hospital Body weight 2023-01-14 15:10:00 83.054 kg [facility] BMI 2023-01-14 15:10:00 29.55 kg/m2 [facility] Oxygen saturation in 2023-01-14 15:10:00 94 /min [facility] of Arterial blood by [facility] Pulse oximetry Branch Systolic blood 2022-11-12 15:40:00 164 mm[Hg] Univer sity of pressure [facility] Diastolic blood 2022-11-12 15:40:00 90 mm[Hg] Unive rsity of pressure [facility] Heart rate 2022-11-12 15:40:00 71 /min [facility] Oxygen saturation in 2022-11-12 15:40:00 96 /min [facility] of Arterial blood by [facility] Pulse oximetry Branch Respiratory rate 2022-11-12 15:36:00 18 /min Univ ersity of [facility] Body height 2022-11-12 15:36:00 167.6 cm [facility] Body weight 2022-11-12 15:36:00 87.181 kg [facility] BMI 2022-11-12 15:36:00 31.02 kg/m2 [facility] Systolic blood 2022-10-31 18:10:00 170 mm[Hg] [facility] Diastolic blood 2022-10-31 18:10:00 82 mm[Hg] [facility] Heart rate 2022-10-31 18:10:00 71 /min [facility] Body temperature 2022-10-31 18:10:00 37 Radha [facility] Respiratory rate 2022-10-31 18:10:00 20 /min [facility] Oxygen saturation in 2022-10-31 18:10:00 90 /min University of Arterial blood by [facility] Pulse oximetry Branch Body weight 2022-10-31 17:04:00 84.5 kg [facility] BMI 2022-10-31 17:04:00 30.07 kg/m2 [facility] Body height 2022-10-30 15:38:31 167.6 cm [facility] Systolic blood 2022-10-30 15:38:31 138 mm[Hg] [facility] Diastolic blood 2022-10-30 15:38:31 69 mm[Hg] [facility] Respiratory rate 2022-10-30 15:38:31 20 /min [facility] Body height 2022-10-30 15:38:31 167.6 cm [facility] Body weight 2022-10-30 15:38:31 85.276 kg [facility] BMI 2022-10-30 15:38:31 30.34 kg/m2 [facility] Oxygen saturation in 2022-10-30 15:38:31 92 /min [facility]ial blood by [place] [employer] Pulse oximetry Branch Heart rate 2022-10-30 15:15:00 63 /min [facility] Body temperature 2022-10-30 13:18:00 36.56 Radha [facility] Systolic blood 2022-10-03 15:02:00 147 mm[Hg] [facility] Diastolic blood 2022-10-03 15:02:00 75 mm[Hg] [facility] Heart rate 2022-10-03 15:02:00 75 /min [facility] Oxygen saturation in 2022-10-03 15:02:00 93 /min [facility] blood by [place] [employer] Pulse oximetry Branch Body temperature 2022-10-03 15:01:00 36.39 Radha [facility] Respiratory rate 2022-10-03 15:01:00 17 /min [facility] Body height 2022-10-03 15:01:00 167.6 cm [facility] Body weight 2022-10-03 15:01:00 85.594 kg [facility] BMI 2022-10-03 15:01:00 30.46 kg/m2 [facility] Systolic blood 2022-09-25 16:16:00 185 mm[Hg] [facility] Diastolic blood 2022-09-25 16:16:00 90 mm[Hg] [facility] Heart rate 2022-09-25 16:16:00 60 /min [facility] Body temperature 2022-09-25 16:16:00 36.17 Radha [facility] Respiratory rate 2022-09-25 16:16:00 18 /min [facility] Oxygen saturation in 2022-09-25 16:16:00 90 /min [facility] blood by [place] [employer] Pulse oximetry Branch Body height 2022-09-24 11:40:00 167.6 cm [facility] Body weight 2022-09-24 11:40:00 83.462 kg [facility] BMI 2022-09-24 11:40:00 29.70 kg/m2 [facility] Systolic blood 2022-09-24 15:00:00 122 mm[Hg] [facility] Diastolic blood 2022-09-24 15:00:00 63 mm[Hg] [facility] Heart rate 2022-09-24 15:00:00 48 /min [facility] Respiratory rate 2022-09-24 15:00:00 18 /min [facility] Oxygen saturation in 2022-09-24 15:00:00 96 /min [facility] by [place] [employer] Pulse oximetry Branch Body temperature 2022-09-24 14:10:00 36.56 Radha [facility] Body height 2022-09-24 11:40:00 167.6 cm [facility] Body weight 2022-09-24 11:40:00 83.462 kg [facility] BMI 2022-09-24 11:40:00 29.70 kg/m2 [facility] Systolic blood 2022-09-03 20:29:00 175 mm[Hg] [facility] Diastolic blood 2022-09-03 20:29:00 89 mm[Hg] [facility] Heart rate 2022-09-03 20:29:00 74 /min [facility] Oxygen saturation in 2022-09-03 20:29:00 94 /min [facility] Arterial blood by [facility] siva Pulse oximetry Branch Body temperature 2022-09-03 20:28:00 37.11 Radha [facility] Body height 2022-09-03 20:28:00 167.6 cm [facility] Body weight 2022-09-03 20:28:00 83.825 kg [facility] BMI 2022-09-03 20:28:00 29.83 kg/m2 [facility] Systolic blood 2022-07-03 18:28:00 203 mm[Hg] [facility] Diastolic blood 2022-07-03 18:28:00 88 mm[Hg] Unive rsity of pressure [facility] Branch Heart rate 2022-07-03 18:28:00 75 /min [facility] Body height 2022-07-03 18:28:00 167.6 cm [facility] Body weight 2022-07-03 18:28:00 84.142 kg [facility] BMI 2022-07-03 18:28:00 29.94 kg/m2 [facility] Oxygen saturation in 2022-07-03 18:28:00 95 /min [facility] Arterial blood by [facility] siva Pulse oximetry Branch Systolic blood 2022-04-11 16:32:00 179 mm[Hg] [facility] Diastolic blood 2022-04-11 16:32:00 84 mm[Hg] Unive rsity of pressure [facility] Heart rate 2022-04-11 16:32:00 71 /min [facility] Oxygen saturation in 2022-04-11 16:32:00 93 /min [facility]ial blood by [place] [employer] Pulse oximetry Branch Body temperature 2022-04-11 16:30:00 37.11 Radha [facility] Body height 2022-04-11 16:30:00 167.6 cm [facility] Body weight 2022-04-11 16:30:00 84.46 kg [facility] BMI 2022-04-11 16:30:00 30.05 kg/m2 [facility] Systolic blood 2021-12-19 19:25:00 187 mm[Hg] [facility] Diastolic blood 2021-12-19 19:25:00 93 mm[Hg] [facility] Heart rate 2021-12-19 19:25:00 77 /min [facility] Respiratory rate 2021-12-19 19:21:00 19 /min [facility] Body height 2021-12-19 19:21:00 167.6 cm [facility] Body weight 2021-12-19 19:21:00 84.641 kg [facility] BMI 2021-12-19 19:21:00 30.12 kg/m2 [facility] Oxygen saturation in 2021-12-19 19:21:00 93 /min [facility] Arterial blood by [facility] Pulse oximetry Branch Systolic blood 2021-12-10 18:42:00 149 mm[Hg] [facility] Diastolic blood 2021-12-10 18:42:00 81 mm[Hg] [facility] Heart rate 2021-12-10 18:42:00 81 /min [facility] Oxygen saturation in 2021-12-10 18:42:00 97 /min [facility] Arterial blood by [facility] Pulse oximetry Branch Body temperature 2021-12-10 18:40:00 36.56 Radha [facility] Respiratory rate 2021-12-10 18:40:00 18 /min [facility] Body weight 2021-12-10 18:40:00 87.227 kg [facility] BMI 2021-12-10 18:40:00 31.04 kg/m2 [facility] Systolic blood 2021-03-29 15:21:00 141 mm[Hg] [facility] Diastolic blood 2021-03-29 15:21:00 74 mm[Hg] [facility] Heart rate 2021-03-29 15:21:00 72 /min [facility] Respiratory rate 2021-03-29 15:17:00 22 /min [facility] Body height 2021-03-29 15:17:00 167.6 cm [facility] Body weight 2021-03-29 15:17:00 89.268 kg General acute hospital BMI 2021-03-29 15:17:00 31.76 kg/m2 General acute hospital Oxygen saturation in 2021-03-29 15:17:00 94 /min [facility][note 3] blood by [facility] Pulse oximetry Branch Procedures Procedure Date / Time Performing Clinician Source Performed POCT GLUCOSE (AUTOMATED) 2022-10-31 18:11:00 [facility] 2022-10-31 14:21:00 Jose R Delgado [facility] BASIC METABOLIC PANEL (NA, 2022-10-31 09:05:00 Elton Gibson [facility] K, CL, CO2, GLUCOSE, BUN, Medica l Branch CREATININE, CA) POCT GLUCOSE (AUTOMATED) 2022-10-31 01:40:00 Jose R Delgado Rahel [facility] POCT GLUCOSE (AUTOMATED) 2022-10-31 01:40:00 [facility] PO[facility]SE (AUTOMATED) 2022-10-30 22:48:00 [facility] POCT GLUCOSE (AUTOMATED) 2022-10-30 22:48:00 Jose R Delgado [facility] POCT GLUCOSE (AUTOMATED) 2022-10-30 21:28:00 [facility]R [facility] POCT GLUCOSE (AUTOMATED) 2022-10-30 21:28:00 Jose R Delgado [facility] CARDIAC CATHETERIZATION 2022-10-30 17:41:56 Erin Rajput [facility] CARDIAC CATHETERIZATION 2022-10-30 17:41:56 Erin aRjput [facility] CARDIAC CATHETERIZATION 2022-10-30 17:41:56 Erin Rajput [facility] CARDIAC CATHETERIZATION 2022-10-30 17:41:56 Erin Rajput [facility] CARDIAC CATHETERIZATION 2022-10-30 17:41:56 Raja, [facility] CARDIAC CATHETERIZATION 2022-10-30 17:41:56 Atiya [facility] POCT ACT LOW RANGE 2022-10-30 17:05:00 Jose R Delgado [facility] POCT ACT LOW RANGE 2022-10-30 16:14:00 Jose R Delgado [facility] CATH PROCEDURE LOG 2022-10-30 15:48:25 Atiya [facility] CATH PROCEDURE LOG 2022-10-30 15:48:25 Atiya [facility] POCT GLUCOSE (AUTOMATED) 2022-10-30 13:19:00 Jose R Delgado [facility] POCT GLUCOSE (AUTOMATED) 2022-10-30 13:19:00 Jose R Delgado [facility] ACTIVATED PARTIAL THRMPLAS 2022-10-30 10:34:00 Angelica Gallegos [facility] ACTIVATED PARTIAL THRMPLAS 2022-10-30 10:34:00 Angelica Gallegos [facility] TROPONIN I 2022-10-30 09:05:00 Jose R Delgado [facility] LIPID PANEL ([id number])(TOTAL 2022-10-30 09:05:00 Jose R Delgado [facility] CHOLESTEROL Medical [place] TRIGLYCERIDES, HDL) TROPONIN I 2022-10-30 09:05:00 Jose R Delgado [facility] LIPID PANEL ([id number])(TOTAL 2022-10-30 09:05:00 Jose R Delgado [facility] CHOLESTEROL, Medical Branch TRIGLYCERIDES, HDL) HB ECG ROUTINE & RHYTHM 2022-10-30 04:52:54 Jose R Delgado [facility] ACTIVATED PARTIAL THRMPLAS 2022-10-30 03:58:00 Angelica Gallegos [facility] ACTIVATED PARTIAL THRMPLAS 2022-10-30 03:58:00 Angelica Gallegos [facility] TROPONIN I 2022-10-30 02:59:00 [facility] 2022-10-30 02:59:00 [facility] o f [facility] POCT GLUCOSE (AUTOMATED) 2022-10-30 02:38:00 Jose R Delgado [facility] POCT GLUCOSE (AUTOMATED) 2022-10-30 02:38:00 Jose R Delgado [facility] POCT GLUCOSE (AUTOMATED) 2022-10-29 23:15:00 Kaela Gallegos [facility] POCT GLUCOSE (AUTOMATED) 2022-10-29 23:15:00 Rosy [facility] TROPONIN I 2022-10-29 21:15:00 Kaela Gallegos [facility] THYROID STIMULATING 2022-10-29 21:15:00 [facility] TROPONIN I 2022-10-29 21:15:00 Kaela Gallegos [facility] THYROID STIMULATING 2022-10-29 21:15:00 [facility] PROTHROMBIN TIME / INR 2022-10-29 19:51:00 Kaela Gallegos Un [facility] ACTIVATED PARTIAL THRMPLAS 2022-10-29 19:51:00 Angelica Gallegos [facility] PROTHROMBIN TIME / INR 2022-10-29 19:51:00 Kaela Gallegos [facility] ACTIVATED PARTIAL THRMPLAS 2022-10-29 19:51:00 Angelica Gallegos [facility] HB ECG ROUTINE & RHYTHM 2022-10-29 19:37:45 Kaela Gallegos [facility] HB ECG ROUTINE & RHYTHM 2022-10-29 19:37:45 Kaela Gallegos [facility] ASSIGNMENT OF BENEFITS 2022-10-29 18:40:29 [facility] ASSIGNMENT OF BENEFITS 2022-10-29 18:40:29 Doctor Unassigned, Un [facility] [place] [facility] LIPASE 2022-10-29 17:30:00 Kaela Gallegos [facility] TROPONIN I 2022-10-29 17:30:00 Kaela Gallegos [facility] [place] COMP. METABOLIC PANEL 2022-10-29 17:30:00 Kaela Gallegos [facility] ([id number]) Medical Branch CBC WITH DIFF 2022-10-29 17:30:00 Kaela Gallegos [facility] [place] GLYCOSYLATED HEMOGLOBIN 2022-10-29 17:30:00 Jose R Delgado [facility] (A1C) Medical Branch COVID-19 (ID NOW RAPID 2022-10-29 17:30:00 Kaela Gallegos [facility] TESTING) Medical Branch LAB ONLY COVID 2022-10-29 17:30:00 Kaela Gallegos [facility] INTERPRETATION Medical Branch LIPASE 2022-10-29 17:30:00 Kaela Gallegos [facility] TROPONIN I 2022-10-29 17:30:00 Kaela Gallegos [facility] COMP. METABOLIC PANEL 2022-10-29 17:30:00 Kaela Gallegos [facility] ([id number]) Medical Branch CBC WITH DIFF 2022-10-29 17:30:00 Kaela Gallegos [facility] GLYCOSYLATED HEMOGLOBIN 2022-10-29 17:30:00 Jose R Delgado [facility] (A1C) Medical Branch COVID-19 (ID NOW RAPID 2022-10-29 17:30:00 Kaela Gallegos [facility] TESTING) Medical Branch LAB ONLY COVID 2022-10-29 17:30:00 Kaela Gallegos [facility] INTERPRETATION Medical Branch NOTICE OF PRIVACY 2022-10-29 16:26:40 Doctor Unassigned, [facility] PRACTICES [place] [facility] NOTICE OF PRIVACY 2022-10-29 16:26:40 Doctor Unassigned, [facility] PRACTICES [place] [facility] CONSENT/REFUSAL FOR 2022-10-29 16:22:55 Doctor Unassigned, [facility] DIAGNOSIS AND TREATMENT [place] [facility] CONSENT/REFUSAL FOR 2022-10-29 16:22:55 Doctor Unassigned, [facility] DIAGNOSIS AND TREATMENT [place] [facility] [place] BASIC METABOLIC PANEL (NA, 2022-09-25 10:44:00 RosieDesirae hogan [facility] K, CL, CO2, GLUCOSE, BUN, Medica l Branch CREATININE, CA) CBC WITH DIFF 2022-09-25 10:44:00 Rosie [facility] o f [facility] POCT GLUCOSE (AUTOMATED) 2022-09-24 16:46:00 Bjorn Michelle [facility] POCT GLUCOSE (AUTOMATED) 2022-09-24 16:46:00 Bjorn Michelle [facility] TRANSTHORACIC ECHO (TTE) 2022-09-24 16:17:54 Mariposa Teague [facility] COMPLETE W/ CONTRAST Medical Bra [facility] POCT ACT LOW RANGE 2022-09-24 15:37:00 Bjorn Michelle [facility] POCT GLUCOSE (AUTOMATED) 2022-09-24 14:20:00 Bjorn Michelle [facility] POCT GLUCOSE (AUTOMATED) 2022-09-24 14:20:00 Bjorn Michelle [facility] CARDIAC CATHETERIZATION 2022-09-24 13:56:00 Mariposa Teague [facility] CARDIAC CATHETERIZATION 2022-09-24 13:56:00 Mariposa Teague [facility] CARDIAC CATHETERIZATION 2022-09-24 13:56:00 Mariposa Teague [facility] CARDIAC CATHETERIZATION 2022-09-24 13:56:00 Mariposa Teague [facility] POCT ACT LOW RANGE 2022-09-24 13:49:00 Bjorn Michelle [facility] CATH PROCEDURE LOG 2022-09-24 12:56:21 Mariposa Teague [facility] CATH PROCEDURE LOG 2022-09-24 12:56:21 Mariposa Teague [facility] POCT GLUCOSE (AUTOMATED) 2022-09-24 12:30:00 Bjorn Michelle [facility] POCT GLUCOSE (AUTOMATED) 2022-09-24 12:30:00 Bjorn Michelle [facility] POCT GLUCOSE (AUTOMATED) 2022-09-24 11:58:00 Bjorn Michelle [facility] POCT GLUCOSE (AUTOMATED) 2022-09-24 11:58:00 Bjorn Michelle [facility] POCT GLUCOSE (AUTOMATED) 2022-09-24 11:40:00 Bjorn Michelle [facility] POCT GLUCOSE (AUTOMATED) 2022-09-24 11:40:00 Bjorn Michelle [facility] PROTHROMBIN TIME / INR 2022-09-12 17:16:00 Mariposa Teague [facility] ACTIVATED PARTIAL THRMPLAS 2022-09-12 17:16:00 Mariposa Teague [facility] PHYSICIAN ORDERS 2022-08-30 05:01:00 Doctor Unassigned, [facility] [place] [facility] EXTERNAL PROVIDER - ADC 2022-08-01 05:01:00 Doctor Unassigned, [facility] CARDIOLOGY [place] [facility] PATIENT FINANCIAL 2022-06-11 13:07:52 Doctor Unassigned, [facility] POLICY [place] [facility] EXTERNAL PROVIDER - ADC 2022-06-03 05:01:00 Doctor Unassigned, [facility] REFERRAL [place] [facility] HB ECG ROUTINE & RHYTHM 2022-04-11 16:22:03 Mariposa Teague [facility] ASSIGNMENT OF BENEFITS 2022-04-11 15:53:16 [facility] [place] [facility] [id number] 2022-04-04 00:00:00 AMIAI [facility] [id number] 2022-04-03 00:00:00 AMIAI [facility] EXTERNAL PROVIDER - ADC 2022-03-28 06:01:00 Doctor Unassigned, [facility] CARDIOLOGY [place] [facility] [id number] 2022-03-25 00:00:00 CHAAB.01 [facility] [id number] 2022-03-25 00:00:00 CHAAB.01 [facility] [id number] 2022-03-25 00:00:00 CHAAB.01 [facility] [id number] 2022-03-25 00:00:00 CHAAB.01 [facility] [id number] 2022-03-25 00:00:00 CHAAB.01 [facility] [id number] 2022-03-25 00:00:00 CHAAB.01 [facility] [id number] 2022-03-25 00:00:00 CHAAB.01 [facility] [id number] 2022-03-25 00:00:00 CHAAB.01 [facility] [id number] 2022-03-25 00:00:00 CHAAB.01 [facility] [id number] 2022-03-25 00:00:00 CHAAB.01 [facility] [id number] 2022-03-25 00:00:00 HYDSH [facility] [id number] 2022-03-25 00:00:00 HYDSH [facility] [id number] 2022-03-25 00:00:00 AMIAI [facility] [id number] 2022-03-23 00:00:00 AMIAI [facility] INSURANCE CORRESPONDENCE 2021-02-28 06:01:00 Doctor Unassigned, [facility] Encounters Start End Encounter Admission Attending Care Care Encounter Source Date/Time Date/Time Type Type Clinicians Facility Department ID 2018-06-22 Inpatient [facility] [id number] [facility] 07:53:49 2018-06-22 Outpatient [facility] [id number] [facility] 07:53:48 2023-09-04 2023-09-04 [id number] Univers 13:00:00 13:00:00 LEONARD cook [facility] 2023-01-15 2023-01-15 Telephone Ho [facility] [id number] [facility] 00:00:00 00:00:00 Sendalis GARDUNO [id number] [place] of [id number] [id number] [place] dical NAL 059 [facility] 2023-01-14 2023-01-14 Outpatient R HO [facility] [id number] Univers 10:00:00 10:32:39 SENDIL ity [facility] 2023-01-14 2023-01-14 [facility] [id number] Univers 10:00:00 10:32:39 Visit Mariposa GARDUNO [id number] [place] [id number] T[place] dical NAL 059 [facility] 2023-01-08 2023-01-08 [facility] [id number] Univers 00:00:00 00:00:00 Mariposa GARDUNO [id number] [place] [id number] Tx dical NAL 059 [facility] 2023-01-07 2023-01-07 Technical Support Internship Valery, Adc Lab Main [facility] 1.2.8 [id number] Univers 11:30:00 11:45:00 Visit Mariposa Teague 350.1.13. 10 [facility] [id number] [id number] T[place] dical NAL 353 [facility] 2023-01-07 2023-01-07 Outpatient R HO [facility] [id number] Univers 11:30:00 11:30:00 SENDIL ity [facility] 2022-11-12 2022-11-12 Outpatient R [facility] [id number] Univers 10:30:00 12:04:19 SENDIL ity [facility] 2022-11-12 2022-11-12 [facility] [id number] Univers 10:30:00 12:04:19 Visit Mariposa GARDUNO 350.1.13.10 [place] [id number] [facility] 059 Branch [facility] 2022-11-01 2022-11-01 Transition BILL Summers [id number] Univers 00:00:00 00:00:00 of Care Noé HSUY 350.1.13.10 [place] [id number] [facility] 403 Branch 2022-10-29 2022-10-31 Inpatient X JAC BORGES [facility] SAMANTHA 10 [id number] Univers 11:35:00 17:00:00 JAC BORGES ity of [facility] 2022-10-29 2022-10-31 [facility] Javon Gooden [facility] 1.2.840.1 [id number] Univers 11:35:00 17:00:00 Encounter Jose MartinmarioladrewKaela [facility] 350.1.13. 10 ity of Jose R Delgado [place] 4.2.7.2.686 [facility] [id number] [facility] 110 Branch ([facility]) 2022-10-30 2022-10-30 Surgery Nelson Blackburn [facility] 1.2.840.114 [id number] Univers 11:04:00 12:04:00 HEALTH 350.1.13.10 it [place] of [place] [id number] [facility] 840 Branch ([facility]) 2022-10-29 2022-10-29 [facility] 1.2.840.114 [id number] Univers 08:12:20 11:34:00 Encounter BjornPyle 350.1.13.10 ity of [place] [id number] [facility] 805 Branch 2022-10-29 2022-10-29 [facility] 1.2.840.114 [id number] Univers 08:12:06 11:34:00 Encounter Bjorn LAUREEN 350.1.13.10 ity of [place] 4.2.7.2.686 [facility] [id number] [facility] 805 [place] 2022-10-29 2022-10-29 [facility] 1.2.840.114 [id number] Univers 08:11:53 08:11:53 Encounter Bjorn [place] 350.1.13.10 ity of [place] 4.2.7.2.686 [facility] [id number] [facility] 805 [place] 2022-10-29 2022-10-29 Outpatient R [facility] [id number] Univers 08:11:41 08:11:41 BJORN ity [facility] 2022-10-29 2022-10-29 [facility] 1.2.840.114 [id number] Univers 08:11:41 08:11:41 Encounter Bjorn ANGLEAMEENA 350.1.13.10 ity of [facility] 4.2.7.2.686 [facility] [id number] [place] [id number] [place] 2022-10-10 2022-10-10 Outpatient R [facility] [id number] Univers 00:00:00 00:00:00 BJORN ity [facility] [facility] 2022-10-03 2022-10-03 [facility] [id number] Univers 13:45:00 13:45:00 LEONARD ity [facility] 2022-10-03 2022-10-03 Outpatient R [facility] [id number] Univers 10:00:00 10:26:49 SENDIL ity [facility] 2022-10-03 2022-10-03 [facility] 1.2.840.114 [id number] Univers 10:00:00 10:26:49 Visit Mariposa GARDUNO 350.1.13.10 ity of [place] 4.2.7.2.686 [facility] PROFESSIO [phone] Tx dical [facility] 059 [facility] 2022-09-26 2022-09-26 Telephone [facility] 1.2.799.667 [id number] Univers 00:00:00 00:00:00 Mariposa GARDUNO 350.1.13.10 ity [facility] [place] [phone] [place] 830219 [facility] 2022-09-24 2022-09-25 Outpatient R JERONIMO [facility] [id number] Univers 06:25:00 15:42:00 KRISTY ity of [facility] 2022-09-24 2022-09-25 Hospital LeisagaBjorn santana [facility] 1.2. 840.114 [id number] Univers 06:25:00 15:42:00 Encounter VictorinoJuan Carlos [facility] 350.1.13 .10 ity of Kristy Decker [place] 4.2.7.2.686 [facility] FRASER [id number] [address] ([facility]) 2022-09-25 2022-09-25 Refill [facility] 1.2.840.114 [id number] Univers 00:00:00 00:00:00 Mariposa GARDUNO 350.1.13.10 it[place] [id number] [address] 2022-09-24 2022-09-24 [facility] Mariposa Teague [facility] 1.2.8 40.114 [id number] Univers 07:14:43 23:59:00 Encounter Gamamax Bjorn [facility] HEALTH 350.1.1 3.10 ity of [place] [id number] [place] 415012 [place] ([facility]) 2022-09-24 2022-09-24 [facility] 1.2.840.114 [id number] Univers 07:35:00 10:05:00 [facility] HEALTH 350.1.13.10 it y of [place] [phone] [address] ([facility]) 2022-09-18 2022-09-18 [facility]phone [facility] 1.2.782.867 [id number] Univers 00:00:00 00:00:00 Mariposa GARDUNO 350.1.13.10 ity of [facility] 4.2.7.2.[place] [id number] Tx dical NAL 059 [facility] 2022-09-12 2022-09-12 Technical Support Internship Valery, Stan Lab Main [facility] 1.2.8 40.114 [id number] Univers 11:45:00 12:00:00 Visit Kristy Argueta 350.1.13.10 ity of [place] 4.[place].7.2.[place] [id number] Tx dicma NAL 353 [facility] 2022-09-12 2022-09-12 Outpatient R [facility] [id number] Univers 11:45:00 11:45:00 KRISTY cook [facility] 2022-09-04 2022-09-04 [facility] 1.2.840.114 [id number] Univers 00:00:00 00:00:00 Mariposa GARDUNO 350.1.13.10 ity of [place].7.2.[place] [id number] [place] 830219 [facility] 2022-09-03 2022-09-03 Outpatient R [facility] [id number] Univers 15:30:00 15:56:19 MARIPOSA cook [facility] 2022-09-03 2022-09-03 Office [facility] 1.2.840.114 [id number] Univers 15:30:00 15:56:19 Visit Mariposa GARDUNO 350.1.13.10 ity of [place] 4.[place].7.2.[place] [id number] Tx dicma NAL 059 [facility] 2022-08-30 2022-08-30 Orders Doctor WHITLOCK 1.2.840.114 [id number] Univers 00:00:00 00:00:00 Only Unassigned, JACQUE 350.1.13.10 ity of [place] [facility] 4.2.7.2.686 Paulie as [id number] [address] 2022-08-29 2022-08-29 Outpatient R XUAN [facility] [id number] Univers 14:30:00 14:30:00 LEONARD ity [facility] 2022-08-29 2022-08-29 [facility] 1.2.066.422 [id number] Univers 00:00:00 00:00:00 Sendil Ene GARDUNO 350.1.13.10 ity of [facility] 4.2.7.[place] [id number] [address] 2022-08-19 2022-08-19 [facility]phone [facility] 1.2.189.212 [id number] Univers 00:00:00 00:00:00 Sendalis GARDUNO 350.1.13.10 ity of [facility] 4.2.7.[place] [id number] [address] 2022-08-13 2022-08-13 Telephone [facility] 1.2.241.055 [id number] Univers 00:00:00 00:00:00 Mariposa GARDUNO 350.1.13.10 ity of [facility] 4.2.7.2.[place] [id number] [address] 2022-08-07 2022-08-07 Outpatient R HO [facility] [id number] Univers 07:53:54 07:53:54 SENDIL ity [facility] 2022-08-01 2022-08-01 Orders Doctor WHITLOCK 1.2.840.114 [id number] Univers 00:00:00 00:00:00 Only Unassigned, JACQUE 350.1.13.10 ity of [place] [facility] 4.2.7.2.686 Paulie as [id number] [address] 2022-07-18 2022-07-18 Telephone [facility] 1.2.080.703 [id number] [id number] Univers 00:00:00 00:00:00 Sendil Ene GARDUNO 350.1.13.10 ity of [place] [phone] [address] 2022-07-05 2022-07-05 Telephone [facility] 1.2.031.893 [id number] [id number] Univers 00:00:00 00:00:00 Sendil Ene GARDUNO 350.1.13.10 ity of [place] 4.[place] [id number] [address] 2022-07-04 2022-07-04 Outpatient R [facility] [id number] Univers 15:16:48 23:59:00 SENDIL ity of [facility] 2022-07-04 2022-07-04 [facility] 1..045.705 6251 84352 [facility] 00:00:00 00:00:00 Sendil Ene GARDUNO 350.1.13.10 ity of [facility] 4.2.7.2.[place] [id number] [address] 2022-07-03 2022-07-03 Outpatient R [facility] [id number] Univers 13:30:00 13:58:22 SENDIL ity of [facility] 2022-07-03 2022-07-03 Office [facility] 1..840.114 [id number] Univers 13:30:00 13:58:22 Visit Sendil Ene GARDUNO 350.1.13.10 ity of [place] 4.[place].7.2.[place] [phone] [address] 2022-06-20 2022-06-20 Telephone [facility] 1.2.737.459 [id number] Univers 00:00:00 00:00:00 Sendil Ene GARDUNO 350.1.13.10 ity of [place] [id number] Tx dical NAL 059 [facility] 2022-06-20 2022-06-20 Telephone [facility] 1.2.002.678 [id number] Univers 00:00:00 00:00:00 Sendalis GARDUNO 350.1.13.10 ity of [facility] 4.2.7.2.[place] [id number] [address] 2022-06-19 2022-06-19 Telephone [facility] 1.2.255.509 [id number] Univers 00:00:00 00:00:00 Sendalis GARDUNO 350.1.13.10 ity of [place] 4.2.7.2.[place] [id number] [address] 2022-06-18 2022-06-18 Outpatient R HO [facility] [id number] Univers 14:00:00 23:59:00 SENDIL itedison [facility] 2022-06-13 2022-06-13 Outpatient R HO [facility] [id number] Univers 08:00:00 08:00:00 [facility] 2022-06-13 2022-06-13 [facility] 1.2.108.644 [id number] Univers 00:00:00 00:00:00 Mariposa GARDUNO 350.1.13.10 ity of [place] 4.2.7.2.[place] [id number] [facility] 059 [facility] 2022-06-11 2022-06-11 Technical Support Internship Valery, Adc Lab Main [facility] 1.2.8 40.114 [id number] Univers 08:30:00 08:45:00 Visit Mariposa Teague 350.1.13. 10 ity of [facility] 4.2.7.2.[place] [id number] [facility] 353 [facility] 2022-06-11 2022-06-11 Outpatient R [facility] [id number] Univers 08:30:00 08:30:00 SENDIL ity of [facility] 2022-06-11 2022-06-11 Orders Doctor KAMLESH 1.2.840.114 [id number] Univers 00:00:00 00:00:00 Only Unassigned, JACQUE 350.1.13.10 ity of [place] [facility] 4.2.7.2.686 Paulie as [phone] [address] 2022-06-11 2022-06-11 Telephone [facility] 1.2.608.977 [id number] Univers 00:00:00 00:00:00 Sendil Ene GARDUNO 350.1.13.10 ity of [facility] 4.2.7.2.[place] [id number] Tx dical NAL 059 [facility] 2022-06-06 2022-06-06 Outpatient R [facility] [id number] Univers 15:30:00 15:30:00 SENDIL ity [facility] 2022-06-04 2022-06-04 Outpatient R [facility] [id number] Univers 09:00:00 09:00:00 SENDIL ity of [facility] 2022-06-03 2022-06-03 Orders Doctor KAMLESH 1.2.840.114 [id number] Univers 00:00:00 00:00:00 Only Unassigned, JACQUE 350.1.13.10 ity of [place] [facility] 4.2.7.2.686 Paulie as [id number] [address] 2022-05-28 2022-05-28 Telephone [facility] 1.2.449.874 [id number] [id number] Univers 00:00:00 00:00:00 Sendil Ene GARDUNO 350.1.13.10 ity of [facility] 4.2.7.2.[place] [phone] Tx dical NAL 059 [facility] 2022-04-15 2022-04-15 Telephone [facility] 1.2.033.533 [id number] Univers 00:00:00 00:00:00 Sendil Ene GARDUNO 350.1.13.10 ity of [facility] 4.2.7.2.[place] [id number] Tx dical NAL [address] [place] [address] 2022-04-12 2022-04-12 Telephone Ho [facility] 1.2.896.621 [id number] Univers 00:00:00 00:00:00 Sendil Ene GARDUNO 350.1.13.10 ity of [place] 4.2.7.2.[place] [id number] Tx dicma NAL [address] [place] [address] 2022-04-11 2022-04-11 Outpatient R HO [facility] [id number] Univers 10:00:00 10:49:26 SENDIL ity of [facility] 2022-04-11 2022-04-11 Office Ho [facility] 1.2.840.114 [id number] Univers 10:00:00 10:49:26 Visit Sendalis GARDUNO 350.1.13.10 ity of [place].2.[place] [id number] Tx dicma NAL [address] [place] [address] 2022-04-11 2022-04-11 Orders Doctor KAMLESH 1.2.840.114 [id number] Univers 00:00:00 00:00:00 Only Unassigned, JACQUE 350.1.13.10 ity of [place] [facility] 4.2.7.2.686 Paulie as [id number] [address] 2022-03-22 2022-04-04 Inpatient UR Nithin Chaudhry [facility] [id number] [facility] 01:30:00 19:14:00 36 [facility] 2022-03-28 2022-03-28 Orders Doctor KAMLESH 1.2.840.114 [id number] Univers 00:00:00 00:00:00 Only Unassigned, JACQUE 350.1.13.10 ity of [place] [facility] 4.2.7.2.686 Paulie as [phone] [address] 2022-03-26 2022-03-26 Outpatient R HO [facility] [id number] Univers 09:00:00 09:00:00 SENDIL ity [facility] 2022-03-19 2022-03-19 Outpatient R HO [facility] [id number] Univers 10:00:00 10:00:00 SENDIL joyce [facility] 2022-03-02 2022-03-02 Outpatient R DORYSELISE GARCIA [facility] [id number] Univers 20:00:00 20:00:00 WILLIAM RGILAlin cook [facility] 2022-02-05 2022-02-05 Outpatient R LEANN [facility] [id number] Univers 10:00:00 10:00:00 DORI cook [facility] 2022-02-04 2022-02-04 Outpatient R LEANN [facility] [id number] Univers 08:40:00 08:40:00 DORI cook [facility] 2021-12-19 2021-12-19 Office [facility] 1.2.659.862 [id number] Univers 14:00:00 14:20:00 Visit Elise GARDUNO 350.1.13.10 ity [facility] [place]2.7.2.[place] [id number] Tx dical NAL 085 [facility] 2021-12-19 2021-12-19 Outpatient R IFRAHWILLIAMILAlin [facility] [id number] Univers 14:00:00 14:00:00 DORYSWILLIAM GARCIAILAlin edison [facility] 2021-12-10 2021-12-10 Outpatient R HO [facility] [id number] Univers 13:30:00 14:14:02 SENDIL itedison [facility] 2021-12-10 2021-12-10 Office [facility] 1.2.840.114 [id number] Univers 13:30:00 14:14:02 Visit Mariposa GARDUNO 350.1.13.10 ity [facility] [place]2.7.2.[place] [id number] Tx dical NAL 059 [facility] 2021-03-29 2021-03-29 Outpatient R [facility] [id number] Univers 09:00:00 09:42:55 SENDIL ity [facility] 2021-03-29 2021-03-29 Office [facility] 1.2.840.114 [id number] Univers 09:00:00 09:42:55 Visit Sendil AlexMenaShamikaMena GARDUNO 350.1.13.10 ity of [place] 4.2.7.2.[place] [phone] [place] dic[place] 666189 [facility] 2021-03-29 2021-03-29 Outpatient R [facility] [id number] Univers 09:00:00 09:42:55 SENDIL ity [facility] 2021-03-29 2021-03-29 Orders Doctor KAMLESH 1.2.840.114 [id number] Univers 00:00:00 00:00:00 Only Unassigned, JACQUE 350.1.13.10 ity of [place] [facility] 4.2.7.2.686 Paulie as [phone] [place] [address] [place] 2021-03-01 2021-03-01 Outpatient R HO [facility] [id number] Univers 13:00:00 13:00:00 SENDIL ity of [facility] 2021-02-28 2021-02-28 Orders Doctor KAMLESH 1.2.840.114 [id number] Univers 00:00:00 00:00:00 Only Unassigned, JACQUE 350.1.13.10 ity of [place] [facility] 4.2.7.2.686 Paulie as [phone] [place] [address] [address] 2020-05-16 2020-05-16 Telephone [facility] 1.2.840.114 [id number] 00:00:00 00:00:00 Erin Bobo MULTISPEC 350.1.13.10 [place] 4.2.7.2.686 [place] [id number] [facility] 2020-05-16 2020-05-16 Telephone [facility] 1.2.840.114 [id number] Univers 00:00:00 00:00:00 Erin A MULTISPEC 350.1.13.10 [place] of [place] [id number] [facility] AND [address] [facility] 2020-05-16 2020-05-16 Telephone [facility] 1.2.840.114 [id number] Univers 00:00:00 00:00:00 Khan A MULTISPEC 350.1.13.10 ity of IAL[place] 4.2.7.2.686 [facility] [id number] [address] [facility] 2020-05-16 2020-05-16 Telephone [facility] 1.2.840.114 [id number] 00:00:00 00:00:00 Khan A MULTISPEC 350.1.13.10 IAL[place] 4.2.7.2.686 [place] [id number] [place] [address] [facility] 2020-05-15 2020-05-15 Telephone Gamilla-Cru [facility] 1.2.840.114 [id number] 00:00:00 00:00:00 Izzy santana N MULTISPEC 350.1.13.10 IAL[place] 4.2.7.2.686 [place] [id number] [place] [address] [facility] 2020-05-15 2020-05-15 Abstract Gamilla[facility]Cru [facility] 1.2.840.114 [id number] 00:00:00 00:00:00 Izzy santana N MULTISPEC 350.1.13.10 IAL[place] 4.2.7.2.686 [place] [id number] [place] [address] [facility] 2020-05-15 2020-05-15 Telephone [facility] 1.2.840.114 [id number] [facility] 00:00:00 00:00:00 doIzzy N MULTISPEC 350.1.13.10 ity of IAL[place] 4.2.7.2.686 [facility] [place] [id number] [address] [facility] 2020-05-15 2020-05-15 Abstract [facility] 1.2.840.114 8 [id number] [facility] 00:00:00 00:00:00 do, Izzy K N MULTISPEC 350.1.13.10 ity of I[place] 4.2.7.2.686 [facility] [place] [id number] [address] [facility] 2020-05-12 2020-05-12 Abstract [facility] 1.2.853.257 [id number] 2059 00:00:00 00:00:00 Khan A MULTISPEC 350.1.13.10 IAL[place] 4.2.7.2.686 [place] [id number] [place] [address] [facility] 2020-05-12 2020-05-12 Committee [facility] 1.2.840.114 [id number] 00:00:00 00:00:00 Review Khan A MULTISPEC 350.1.13.10 I[place] 4.2.7.2.686 [place] [id number] [place] [address] [facility] 2020-05-12 2020-05-12 Committee [facility] 1.2.840.114 [id number] [facility] 00:00:00 00:00:00 Review Khan A MULTISPEC 350.1.13.10 ity of [place] 4.2.7.2.686 [facility] [place] [id number] [address] [facility] 2020-05-12 2020-05-12 Abstract [facility] 1.2.276.756 [id number] 2059 Univers 00:00:00 00:00:00 Khan A MULTISPEC 350.1.13.10 ity of [place] 4.2.7.2.686 [facility] [place] [id number] [address] [facility] 2020-04-18 2020-04-18 Orders Doctor KAMLESH 1.2.840.114 [id number] 00:00:00 00:00:00 Only Unassigned, JACQUE 350.1.13.10 [place] [facility] 4.2.7.2.686 [id number] 009 2020-04-18 2020-04-18 Telephone [facility] 1.2.840.114 [id number] Univers 00:00:00 00:00:00 Khan A MULTISPEC 350.1.13.10 it[place] [id number] [address] [facility] 2020-04-18 2020-04-18 Committee [facility] 1.2.840.114 [id number] [id number] Univers 00:00:00 00:00:00 Review Khan A MULTISPEC 350.1.13.10 it[place] of [place] [id number] [address] [facility] 2020-04-18 2020-04-18 Orders Doctor KAMLESH 1.2.840.114 [id number] Univers 00:00:00 00:00:00 Only Unassigned, JACQUE 350.1.13.10 ity of [place] [facility] 4.2.7.2.686 Paulie as [id number] [address] 2020-04-17 2020-04-17 Abstract [facility] 1.2.689.133 [id number] [id number] Univers 00:00:00 00:00:00 Khan A MULTISPEC 350.1.13.10 it[place] [id number] [address] [facility] 2020-04-17 2020-04-17 Abstract [facility] 1.2.635.623 [id number] [id number] Univers 00:00:00 00:00:00 Khan A MULTISPEC 350.1.13.10 it[place] of [place] [id number] [address] [facility] 2020-03-28 2020-03-28 Telephone [facility] 1.2.840.114 [id number] Univers 00:00:00 00:00:00 Khan A MULTISPEC 350.1.13.10 it[place] of [place] [id number] [address] [facility] 2020-03-14 2020-03-14 [facility] 1.2.840.114 [id number] Univers 09:14:33 23:59:00 Encounter Sendil AlexMenaShamikaMena Garduno 350.1.13.10 ity of [place] 4.2.7.2.686 [facility] [id number] [address] 2020-03-14 2020-03-14 [facility] 1.2.840.114 [id number] Univers 09:14:13 23:59:00 Encounter Sendil AlexMenaShamikaMena Garduno 350.1.13.10 ity of [place] 4.2.7.2.686 [facility] [id number] [address] 2020-03-14 2020-03-14 [facility] 1.2.840.[id number] [place] [address] Univers 09:13:41 09:13:41 Encounter Sendalis PanShamikaMena Gard[place] 350.1.13.10 ity of [place] 4.2.7.[address] [place] [phone] 2020-03-14 2020-03-14 Outpatient R [facility] [id number] Univers 09:12:26 09:12:26 SENDIL ity of [facility] 2020-03-14 2020-03-14 [facility] 1.2.840.114 [id number] [facility] 09:12:26 09:12:26 Encounter Sendalis Garduno 350.1.13.10 ity of [place] 4.2.7.2.686 [facility] [id number] [address] 2020-02-28 2020-02-28 [facility] 1.2.840.114 [id number] 12:46:09 13:47:51 Visit Sendalis Garduno 350.1.13.10 [place] 4.2.7.2.686 Professio [id number] nal 059 [facility] 2020-02-28 2020-02-28 Office [facility] 1.2.840.114 [id number] Univers 12:46:09 13:47:51 Visit Sendil Ene Garduno 350.1.13.10 ity of [place] 4.2.7.2.686 [facility] [id number] Tx dical nal 059 [facility] 2020-02-28 2020-02-28 Outpatient R [facility] [id number] Univers 13:00:00 13:00:00 SENDIL ity of [facility] 2020-02-08 2020-02-08 Outpatient R [facility] [id number] Univers 08:00:00 08:00:00 SENDIL ity of [facility] 2020-01-14 2020-01-14 Outpatient R [facility] [id number] Univers 09:00:00 09:00:00 SENDIL ity of [facility] 2019-12-30 2019-12-30 [facility] 1.2.840.114 [id number] Univers 08:00:00 23:59:00 Encounter Izzy santana 350.1.13.10 ity of [place] 4.2.7.2.686 [facility] [id number] [facility] [address] [place] 2019-12-30 2019-12-30 Laboratory 1, Adc Cardio Fac Room [facility] 1.2.840.114 [id number] Univers 08:46:43 09:34:19 Only Pc, Adc Echo Room 1 - [place] 350.1.1 3.10 ity of [place] 4.2.7.2.686 [facility] [phone] Tx dical nal 059 [facility] 2019-12-30 2019-12-30 Outpatient R [facility] [id number] Univers 09:00:00 09:00:00 ity of [facility] 2019-11-16 2019-11-16 Technical Support Internship Vtc-Lab [facility] 1.2.840.114 [id number] Univers 12:37:53 12:52:53 Visit Izzy Mcelroy MULTISGABE 350.1 .13.10 ity of [place] 4.2.7.2.686 [facility] [place] [id number] [facility] [place] [address] [place] [facility] 2019-11-16 2019-11-16 Office Izzy Mcelroy [facility] 1.2 .840.114 [id number] Univers 10:48:20 11:08:20 Visit Gisel Zelayamad Jihan MULTISPEC 350.1.13 .10 [place] [phone] [facility] [address] [place] [facility] 2019-11-16 2019-11-16 [facility]patient [facility] [id number] Univers 11:00:00 11:00:00 KHAN ity o f [facility] 2019-11-16 2019-11-16 Orders Doctor KAMLESH 1.2.840.114 [id number] Univers 00:00:00 00:00:00 Only Unassigned, JACQUE 350.1.13.10 ity of [place] [facility] 4.2.7.2.686 Paulie as [phone] [address] 2019-11-15 2019-11-15 Abstract [facility] 1.2.848.172 [id number] Univers 00:00:00 00:00:00 Khan A MULTISPEC 350.1.13.10 [place] [id number] [address] [facility] 2019-08-20 2019-08-20 Telephone [facility] 1.2.840.114 [id number] Univers 00:00:00 00:00:00 Khan A MULTISPEC 350.1.13.10 [place] [phone] [address] [facility] 2019-06-01 2019-06-01 Letter [facility] 1.2.840.114 [id number] Univers 00:00:00 00:00:00 (Out) Khan Jihan MULTISPEC 350.1.13.10 [place] [id number] [address] [facility] 2018-11-10 2018-11-10 [facility] 1.2.330.877 [id number] Univers 09:30:00 23:59:00 Encounter Erin Bobo [place] 350.1.13.10 [place] [phone] [facility] [address] 2018-11-10 2018-11-10 Orders Doctor KAMLESH 1.2.840.114 [id number] Univers 00:00:00 00:00:00 Only Unassigned, JACQUE 350.1.13.10 ity of [place] [facility] 4.2.7.2.686 Paulie as [phone] [facility] [address] 2018-11-03 2018-11-03 Telephone [facility] 1.2.840.114 [id number] Univers 00:00:00 00:00:00 Erin Bobo Health 350.1.13.10 [place] [employer] [phone] [place] [facility] [address] 2018-11-02 2018-11-02 Committee [facility] 1.2.840.114 [id number] Univers 00:00:00 00:00:00 Review Erin Bobo MULTISPEC 350.1.13.10 [place] [phone] [facility] AND [place] [address] [facility] 2018-11-02 2018-11-02 Abstract [facility] [facility] [id number] Univers 00:00:00 00:00:00 [facility] 350.1.13.10 [facility] [id number] [place] dical [place] Center [address] 2018-11-02 2018-11-02 Abstract [facility] [id number] Univers 00:00:00 00:00:00 [facility] 350.1.13.10 [facility] [place] [phone] [place] dicma [place] Center [address] 2018-11-02 2018-11-02 Case [facility] [id number] Univers 00:00:00 00:00:00 Management [facility] 350.1.13.10 [place] [id number] [address] 2018-10-28 2018-10-28 Telephone [facility] [id number] Univers 00:00:00 00:00:00 [facility] 350.1.13.10 [place] [id number] [facility] AND [address] DIABETES CLINIC 2018-10-28 2018-10-28 Telephone [facility] 1.2.840.114 [id number] Univers 00:00:00 00:00:00 [facility] 350.1.13.10 [place] [phone] [address] Results Test Description Test Time Test Comments Results Result Comments Source POCT GLUCOSE (AUTOMATED) 2022-10-31 18:20:19 Test Item Value Reference Range Interpretation Comme nts POCT GLU (test code = 0571535372) 192 mg/dL 70-110 H Lab Interpretation (test code = 05154-2) Abnormal [facility] GLUCOSE (AUTOMATED)2022-10-31 14:22:25 Test Item Value Reference Range Interpretation Comments POCT GLU (test code = 9463450884) 132 mg/dL 70-110 H Lab Interpretation (test code = Abnormal 13037-4) [facility] ACT LOW [id number] 11:44:28 Test Item Value Reference Range Interpretation Comments ACTLR (test code = 366 See_Comment H [Automat ed message] 0297775806) The system [employer] generated this result transmitted ref erence range: 89 - 169 Seconds. The reference range was not used to int erpret this result as normal/abnormal . Lab Interpretation (test Abnormal code = 22089-8) [facility] ACT LOW [id number] 11:44:28 Test Item Value Reference Range Interpretation Comments ACTLR (test code = 390 See_Comment H [Automat ed message] [id number]) The system [employer] generated this result transmitted ref erence range: 89 - 169 Seconds. The reference range was not used to int erpret this result as normal/abnormal . Lab Interpretation (test Abnormal code = 98829-2) [facility] GLUCOSE (AUTOMATED)2022-10-31 01:41:20 Test Item Value Reference Range Interpretation Comments POCT GLU (test code = 1962878491) 156 mg/dL 70-110 H Lab Interpretation (test code = Abnormal 16895-8) [facility] GLUCOSE (AUTOMATED)2022-10-31 01:41:20 Test Item Value Reference Range Interpretation Comments POCT GLU (test code = 0075944453) 156 mg/dL 70-110 H Lab Interpretation (test code = Abnormal 83676-3) [facility] GLUCOSE (AUTOMATED)2022-10-30 22:49:26 Test Item Value Reference Range Interpretation Comments POCT GLU (test code = 1859291526) 215 mg/dL 70-110 H Lab Interpretation (test code = Abnormal 45227-5) [facility] GLUCOSE (AUTOMATED)2022-10-30 22:49:26 Test Item Value Reference Range Interpretation Comments POCT GLU (test code = 1996141573) 215 mg/dL 70-110 H Lab Interpretation (test code = Abnormal 67123-2) [facility] GLUCOSE (AUTOMATED)2022-10-30 21:38:37 Test Item Value Reference Range Interpretation Comments POCT GLU (test code = 1353090888) 215 mg/dL 70-110 H Lab Interpretation (test code = Abnormal 40233-1) [facility] GLUCOSE (AUTOMATED)2022-10-30 21:38:37 Test Item Value Reference Range Interpretation Comments POCT GLU (test code = 8498668244) 215 mg/dL 70-110 H Lab Interpretation (test code = Abnormal 65291-9) [facility] GLUCOSE (AUTOMATED)2022-10-30 14:00:06 Test Item Value Reference Range Interpretation Comments POCT GLU (test code = 3051122374) 188 mg/dL 70-110 H Lab Interpretation (test code = Abnormal 63820-5) [facility] GLUCOSE (AUTOMATED)2022-10-30 14:00:06 Test Item Value Reference Range Interpretation Comments POCT GLU (test code = 5272612970) 188 mg/dL 70-110 H Lab Interpretation (test code = Abnormal 47134-9) [facility] (for use with Heparin Infusion)2022-10-30 10:55:41 Test Item Value Reference Range Interpretation Comments APTT Patient (test code 82 See_Comment H [Au tomated message] = 3173-2) The system [employer] generated this result transmitted ref erence range: 26 - 36 Seconds. The reference range was not used to int erpret this result as normal/abnormal . Lab Interpretation (test Abnormal code = 36610-3) [facility] (for use with Heparin Infusion)2022-10-30 10:55:41 Test Item Value Reference Range Interpretation Comments APTT Patient (test code 82 See_Comment H [Au tomated message] = 3173-2) The system [employer] generated this result transmitted ref erence range: 26 - 36 Seconds. The reference range was not used to int erpret this result as normal/abnormal . Lab Interpretation (test Abnormal code = 01480-6) [facility] [id number] 09:41:03 Test Item Value Reference Range Interpretation Comments TROPONIN I (test code = 4.100 ng/mL <=0.034 H 5590004356) ALECIA (test code = ALECIA) Reference (Normal) Range (defined by the 99th percentile reference limit): <= 0.034 ng/mL Note: Cardiac troponin begins to rise 3-4 hours after the onset of ischemia. Repeat in 4-6 hours if the sample was drawn within 3-4 hours of the onset of the symptom and found normal. Diagnosis of myocardial injury is made with acute changes in cTn concentrations with at least one serial sample above the 99th percentile upper reference limit (URL), taken together with the patient's clinical presentation. Biotin has been reported to cause a negative bias, interpret results relative to patient's use of biotin. Lab Interpretation Abnormal (test code = 01360-3) [facility] [id number] 09:41:03 Test Item Value Reference Range Interpretation Comments TROPONIN I (test code = 4.100 ng/mL <=0.034 H 9662803085) ALECIA (test code = ALECIA) Reference (Normal) Range (defined by the 99th percentile reference limit): <= 0.034 ng/mL Note: Cardiac troponin begins to rise 3-4 hours after the onset of ischemia. Repeat in 4-6 hours if the sample was drawn within 3-4 hours of the onset of the symptom and found normal. Diagnosis of myocardial injury is made with acute changes in cTn concentrations with at least one serial sample above the 99th percentile upper reference limit (URL), taken together with the patient's clinical presentation. Biotin has been reported to cause a negative bias, interpret results relative to patient's use of biotin. Lab Interpretation Abnormal (test code = 74129-6) [facility], [facility]lycerides, HDL[facility]2022-10-30 09:34:02 Test Item Value Reference Range Interpretation Comments CHOL (test code = 7138932380) 122 mg/dL 120-200 HDL (test code = 9867327058) 41 mg/dL >=40 HDLC RATIO (test code = 6835615780) 3.0 <=5.0 TRIG (test code = 0906848231) 59 mg/dL 30-170 LDL CHOL (test code = 60496-2) 69 mg/dL <=160 VLDL (test code = 0935686556) 12 mg/dL 5-60 Lab Interpretation (test code = Normal 32187-2) [facility] Cholesterol, Triglycerides, HDL)2022-10-30 09:34:02 Test Item Value Reference Range Interpretation Comments CHOL (test code = 3990300580) 122 mg/dL 120-200 HDL (test code = 4764964503) 41 mg/dL >=40 HDLC RATIO (test code = 6055284573) 3.0 <=5.0 TRIG (test code = 5017693697) 59 mg/dL 30-170 LDL CHOL (test code = 83079-5) 69 mg/dL <=160 VLDL (test code = 8402694582) 12 mg/dL 5-60 Lab Interpretation (test code = Normal 59032-3) [facility]2022-10-30 04:24:06 Test Item Value Reference Range Interpretation Comments APTT Patient (test code 53 See_Comment H [Au tomated message] = 4013-2) The system [employer] generated this result transmitted ref erence range: 26 - 36 Seconds. The reference range was not used to int erpret this result as normal/abnormal . Lab Interpretation (test Abnormal code = 59831-1) [facility]2022-10-30 04:24:06 Test Item Value Reference Range Interpretation Comments APTT Patient (test code 53 See_Comment H [Au tomated message] = 3173-2) The system [employer] generated this result transmitted ref erence range: 26 - 36 Seconds. The reference range was not used to int erpret this result as normal/abnormal . Lab Interpretation (test Abnormal code = 72344-6) [facility] [id number] 03:35:01 Test Item Value Reference Range Interpretation Comments TROPONIN I (test code = 2.400 ng/mL <=0.034 H 5915010335) ALECIA (test code = ALECIA) Reference (Normal) Range (defined by the 99th percentile reference limit): <= 0.034 ng/mL Note: Cardiac troponin begins to rise 3-4 hours after the onset of ischemia. Repeat in 4-6 hours if the sample was drawn within 3-4 hours of the onset of the symptom and found normal. Diagnosis of myocardial injury is made with acute changes in cTn concentrations with at least one serial sample above the 99th percentile upper reference limit (URL), taken together with the patient's clinical presentation. Biotin has been reported to cause a negative bias, interpret results relative to patient's use of biotin. Lab Interpretation Abnormal (test code = 54269-8) [facility] [id number] 03:35:01 Test Item Value Reference Range Interpretation Comments TROPONIN I (test code = 2.400 ng/mL <=0.034 H 1638912705) ALECIA (test code = ALECIA) Reference (Normal) Range (defined by the 99th percentile reference limit): <= 0.034 ng/mL Note: Cardiac troponin begins to rise 3-4 hours after the onset of ischemia. Repeat in 4-6 hours if the sample was drawn within 3-4 hours of the onset of the symptom and found normal. Diagnosis of myocardial injury is made with acute changes in cTn concentrations with at least one serial sample above the 99th percentile upper reference limit (URL), taken together with the patient's clinical presentation. Biotin has been reported to cause a negative bias, interpret results relative to patient's use of biotin. Lab Interpretation Abnormal (test code = 98505-5) [facility]22-10-30 03:14:19 Test Item Value Reference Range Interpretation Comments TSH (test code = 2.01 See_Comment Biotin has been 0291276640) reported to cau se a negative bias, interpret resul ts relative to pat ient's use of biotin. [Automated mess age] The system [employer] generated this result transmitted ref erence range: 0.45 - 4 .70 mIU/L. The refe rence range was not u sed to interpret this result as normal/abnor mal. Lab Interpretation (test Normal code = 16771-7) [facility]22-10-30 03:14:19 Test Item Value Reference Range Interpretation Comments TSH (test code = 2.01 See_Comment Biotin has been 0771379749) reported to cau se a negative bias, interpret resul ts relative to pat ient's use of biotin. [Automated mess age] The system [employer] generated this result transmitted ref erence range: 0.45 - 4 .70 mIU/L. The refe rence range was not u sed to interpret this result as normal/abnor mal. Lab Interpretation (test Normal code = 23892-0) [facility]2022-[facility]-30 02:49:44 Test Item Value Reference Range Interpretation Comments HGB A1C (test code = 10.1 % 4.0-5.7 H 4548-4) ALECIA (test code = ALECIA) Reference RangesNormal: <5.7%Prediabetes: 5.7 - 6.4%Diabetes: > 6.5% Lab Interpretation (test Abnormal code = 13217-1) [facility]2022-10-30 02:49:44 Test Item Value Reference Range Interpretation Comments HGB A1C (test code = 10.1 % 4.0-5.7 H 4548-4) ALECIA (test code = ALECIA) Reference RangesNormal: <5.7%Prediabetes: 5.7 - 6.4%Diabetes: > 6.5% Lab Interpretation (test Abnormal code = 38804-1) [facility] GLUCOSE (AUTOMATED)2022-10-30 02:39:14 Test Item Value Reference Range Interpretation Comments POCT GLU (test code = 3202324253) 183 mg/dL 70-110 H Lab Interpretation (test code = Abnormal 10547-0) [facility] GLUCOSE (AUTOMATED)2022-10-30 02:39:14 Test Item Value Reference Range Interpretation Comments POCT GLU (test code = 4686059037) 183 mg/dL 70-110 H Lab Interpretation (test code = Abnormal 72618-2) [facility] GLUCOSE (AUTOMATED)2022-10-29 23:16:27 Test Item Value Reference Range Interpretation Comments POCT GLU (test code = 5344695507) 349 mg/dL 70-110 H Lab Interpretation (test code = Abnormal 67383-4) [facility] GLUCOSE (AUTOMATED)2022-10-29 23:16:27 Test Item Value Reference Range Interpretation Comments POCT GLU (test code = 2991018369) 349 mg/dL 70-110 H Lab Interpretation (test code = Abnormal 40976-0) [facility] [id number] 22:26:41 Test Item Value Reference Range Interpretation Comments TROPONIN I (test code = 0.852 ng/mL <=0.034 H 1323000782) ALECIA (test code = ALECIA) Reference (Normal) Range (defined by the 99th percentile reference limit): <= 0.034 ng/mL Note: Cardiac troponin begins to rise 3-4 hours after the onset of ischemia. Repeat in 4-6 hours if the sample was drawn within 3-4 hours of the onset of the symptom and found normal. Diagnosis of myocardial injury is made with acute changes in cTn concentrations with at least one serial sample above the 99th percentile upper reference limit (URL), taken together with the patient's clinical presentation. Biotin has been reported to cause a negative bias, interpret results relative to patient's use of biotin. Lab Interpretation Abnormal (test code = 33603-5) [facility] [id number] 22:26:41 Test Item Value Reference Range Interpretation Comments TROPONIN I (test code = 0.852 ng/mL <=0.034 H 5163691723) ALECIA (test code = ALECIA) Reference (Normal) Range (defined by the 99th percentile reference limit): <= 0.034 ng/mL Note: Cardiac troponin begins to rise 3-4 hours after the onset of ischemia. Repeat in 4-6 hours if the sample was drawn within 3-4 hours of the onset of the symptom and found normal. Diagnosis of myocardial injury is made with acute changes in cTn concentrations with at least one serial sample above the 99th percentile upper reference limit (URL), taken together with the patient's clinical presentation. Biotin has been reported to cause a negative bias, interpret results relative to patient's use of biotin. Lab Interpretation Abnormal (test code = 77450-9) [facility] [id number] 18:53:12 Test Item Value Reference Range Interpretation Comments TROPONIN I (test code = 1.130 ng/mL <=0.034 H 5576673869) ALECIA (test code = ALECIA) Reference (Normal) Range (defined by the 99th percentile reference limit): <= 0.034 ng/mL Note: Cardiac troponin begins to rise 3-4 hours after the onset of ischemia. Repeat in 4-6 hours if the sample was drawn within 3-4 hours of the onset of the symptom and found normal. Diagnosis of myocardial injury is made with acute changes in cTn concentrations with at least one serial sample above the 99th percentile upper reference limit (URL), taken together with the patient's clinical presentation. Biotin has been reported to cause a negative bias, interpret results relative to patient's use of biotin. Lab Interpretation Abnormal (test code = 83457-1) [facility] [id number] 18:53:12 Test Item Value Reference Range Interpretation Comments TROPONIN I (test code = 1.130 ng/mL <=0.034 H 1029069420) ALECIA (test code = ALECIA) Reference (Normal) Range (defined by the 99th percentile reference limit): <= 0.034 ng/mL Note: Cardiac troponin begins to rise 3-4 hours after the onset of ischemia. Repeat in 4-6 hours if the sample was drawn within 3-4 hours of the onset of the symptom and found normal. Diagnosis of myocardial injury is made with acute changes in cTn concentrations with at least one serial sample above the 99th percentile upper reference limit (URL), taken together with the patient's clinical presentation. Biotin has been reported to cause a negative bias, interpret results relative to patient's use of biotin. Lab Interpretation Abnormal (test code = 35442-7) [facility] WITH [id number] 18:41:11 Test Item Value Reference Range Interpretation Comments WBC (test code = 6.26 See_Comment [Automated 6690-2) message] The sy stem which generated this result transmitted reference range : 4.20 - 10.70 10*3/?L. The reference range was not used to interpret this result as normal/abnormal . RBC (test code = 3.41 See_Comment L [Automated 789-8) message] The sy stem which generated this result transmitted reference range : 4.26 - 5.52 10*6/?L. The reference range was not used to interpret this result as normal/abnormal . HGB (test code = 10.6 g/dL 12.2-16.4 L 718-7) HCT (test code = 32.2 % 38.4-49.3 L 4544-3) MCV (test code = 94.4 fL 81.7-95.6 787-2) MCH (test code = 31.1 pg 26.1-32.7 785-6) MCHC (test code = 32.9 g/dL 31.2-35.0 786-4) RDW-SD (test code = 55.8 fL 38.5-51.6 H 29732-6) RDW-CV (test code = 16.0 % 12.1-15.4 H 788-0) PLT (test code = 85 See_Comment L [Automated 777-3) message] The sy stem which generated this result transmitted reference range : 150 - 328 10*3/ ?L. The reference r akhil was not used to interpret this result as normal/abnormal . MPV (test code = 10.5 fL 9.8-13.0 13235-7) IPF % (test code = 5.8 % 1.2-10.7 Platelet count 1160801984) measured by fluorescence method. NRBC/100 WBC (test 0.0 See_Comment [Automat ed code = 6690486950) message] The system which generated this result transmitted reference range : 0.0 - 10.0 /100 WBCs. The refer ence range was not u sed to interpret th is result as normal/abnormal . NRBC x10^3 (test code See_Comment [Auto mated = 3154687162) message] The s ystem which generated this result transmitted reference range : 10*3/?L. The reference range was not used to interpret this result as normal/abnormal . GRAN MAT (NEUT) % 75.1 % (test code = 770-8) IMM GRAN % (test code 0.30 % = 6951696323) LYMPH % (test code = 12.6 % 736-9) MONO % (test code = 9.6 % 5905-5) EOS % (test code = 2.1 % 713-8) BASO % (test code = 0.3 % 706-2) GRAN MAT x10^3(ANC) 4.70 10*3/uL 1.99-6.95 (test code = 0214345380) IMM GRAN x10^3 (test 0.00-0.06 code = 8047842564) LYMPH x10^3 (test code 0.79 10*3/uL 1.09-3.23 L = 731-0) MONO x10^3 (test code 0.60 10*3/uL 0.36-1.02 = 742-7) EOS x10^3 (test code = 0.13 10*3/uL 0.06-0.53 711-2) BASO x10^3 (test code 0.01-0.09 = 704-7) ELLIPTO/OVAL (test 2+ See_Comment A [Automat ed code = 74230-6) message] The system which generated this result transmitted reference range : (none). The reference range was not used to interpret this result as normal/abnormal . SCHISTOCYTES (test 1+ A code = 800-3) SPHEROCYTES (test code 1+ A = 802-9) Lab Interpretation Abnormal (test code = 81035-6) [facility] WITH [id number] 18:41:11 Test Item Value Reference Range Interpretation Comments WBC (test code = 6.26 See_Comment [Automated 6690-2) message] The sy stem which generated this result transmitted reference range : 4.20 - 10.70 10*3/?L. The reference range was not used to interpret this result as normal/abnormal . RBC (test code = 3.41 See_Comment L [Automated 789-8) message] The sy stem which generated this result transmitted reference range : 4.26 - 5.52 10*6/?L. The reference range was not used to interpret this result as normal/abnormal . HGB (test code = 10.6 g/dL 12.2-16.4 L 718-7) HCT (test code = 32.2 % 38.4-49.3 L 4544-3) MCV (test code = 94.4 fL 81.7-95.6 787-2) MCH (test code = 31.1 pg 26.1-32.7 785-6) MCHC (test code = 32.9 g/dL 31.2-35.0 786-4) RDW-SD (test code = 55.8 fL 38.5-51.6 H 55363-8) RDW-CV (test code = 16.0 % 12.1-15.4 H 788-0) PLT (test code = 85 See_Comment L [Automated 777-3) message] The sy stem which generated this result transmitted reference range : 150 - 328 10*3/ ?L. The reference r akhil was not used to interpret this result as normal/abnormal . MPV (test code = 10.5 fL 9.8-13.0 96615-8) IPF % (test code = 5.8 % 1.2-10.7 Platelet count 6391313857) measured by fluorescence method. NRBC/100 WBC (test 0.0 See_Comment [Automat ed code = 1751591064) message] The system which generated this result transmitted reference range : 0.0 - 10.0 /100 WBCs. The refer ence range was not u sed to interpret th is result as normal/abnormal . NRBC x10^3 (test code See_Comment [Auto mated = 3292945324) message] The s ystem which generated this result transmitted reference range : 10*3/?L. The reference range was not used to interpret this result as normal/abnormal . GRAN MAT (NEUT) % 75.1 % (test code = 770-8) IMM GRAN % (test code 0.30 % = 6057191619) LYMPH % (test code = 12.6 % 736-9) MONO % (test code = 9.6 % 5905-5) EOS % (test code = 2.1 % 713-8) BASO % (test code = 0.3 % 706-2) GRAN MAT x10^3(ANC) 4.70 10*3/uL 1.99-6.95 (test code = 9828750286) IMM GRAN x10^3 (test 0.00-0.06 code = 9549038890) LYMPH x10^3 (test code 0.79 10*3/uL 1.09-3.23 L = 731-0) MONO x10^3 (test code 0.60 10*3/uL 0.36-1.02 = 742-7) EOS x10^3 (test code = 0.13 10*3/uL 0.06-0.53 711-2) BASO x10^3 (test code 0.01-0.09 = 704-7) ELLIPTO/OVAL (test 2+ See_Comment A [Automat ed code = 80915-1) message] The system which generated this result transmitted reference range : (none). The reference range was not used to interpret this result as normal/abnormal . SCHISTOCYTES (test 1+ A code = 800-3) SPHEROCYTES (test code 1+ A = 802-9) Lab Interpretation Abnormal (test code = 16396-2) [facility]63966[facility]-29 18:12:41 Test Item Value Reference Range Interpretation Comments NA (test code = 137 mmol/L 135-145 3921024973) K (test code = 3.7 mmol/L 3.5-5.0 0588461412) CL (test code = 94 mmol/L 98-108 L 0045485797) CO2 TOTAL (test code = 25 mmol/L 23-31 4526785969) AGAP (test code = 18 2-16 H 4790073953) BUN (test code = 40 mg/dL 7-23 H 0784823845) GLUCOSE (test code = 336 mg/dL 70-110 H 3418521195) CREATININE (test code = 6.45 mg/dL 0.60-1.25 H 4850507104) TOTAL BILI (test code = 1.5 mg/dL 0.1-1.1 H 6796428636) CALCIUM (test code = 9.9 mg/dL 8.6-10.6 3410567791) T PROTEIN (test code = 8.8 g/dL 6.3-8.2 H 7863271940) ALBUMIN (test code = 4.5 g/dL 3.5-5.0 0328859563) ALK PHOS (test code = 153 U/L 34-122 H 1581514191) ALTv (test code = 15 U/L 5-50 2-6) AST(SGOT) (test code = 21 U/L 13-40 7560140672) eGFR (test code = 9.4 mL/min/1.73m2 1646307859) ALECIA (test code = ALECIA) Association of Glomerular Filtration Rate (GFR) and Staging of Kidney Disease* + --+ --+ ------+| GFR (mL/min/1.73 m2) ?| With Kidney Damage ?| ?Without Kidney Damage+ --------+ --------+ +| ?>90 ?| ?Stage one ?| ? Normal ?+ ---+ ---+ -------+| ?60-89 ?| ?Stage two ?| ? Decreased GFR ? + --+ --+ ------+| ?30-59 ?| ?Stage three ?| ? Stage three ? + --+ --+ ------+| ?15-29 ?| ?Stage four ? | ? Stage four ?+ ---+ ---+ -------+| ?<15 (or dialysis) ? ?| ?Stage five ? | ? Stage five ?+ ---+ ---+ -------+ *Each stage assumes the associated GFR level has been in effect for at least three months. ?Stages 1 to 5, with or without kidney disease, indicate chronic kidney disease. Notes: Determination of stages one and two (with eGFR >59mL/min/1.73 m2) requires estimation of kidney damage for at least three months as defined by structural or functional abnormalities of the kidney, manifested by either:Pathological abnormalities or Markers of kidney damage (including abnormalities in the composition of the blood or urine or abnormalities in imaging tests). Lab Interpretation Abnormal (test code = 31923-3) [facility]. METABOLIC PANEL ([id number])2022-10-29 18:12:41 Test Item Value Reference Range Interpretation Comments NA (test code = 137 mmol/L 135-145 0715905965) K (test code = 3.7 mmol/L 3.5-5.0 7506963470) CL (test code = 94 mmol/L 98-108 L 8452773064) CO2 TOTAL (test code = 25 mmol/L 23-31 8711554796) AGAP (test code = 18 2-16 H 7409947452) BUN (test code = 40 mg/dL 7-23 H 8928140908) GLUCOSE (test code = 336 mg/dL 70-110 H 3783154642) CREATININE (test code = 6.45 mg/dL 0.60-1.25 H 9950538885) TOTAL BILI (test code = 1.5 mg/dL 0.1-1.1 H 9001352540) CALCIUM (test code = 9.9 mg/dL 8.6-10.6 1475083824) T PROTEIN (test code = 8.8 g/dL 6.3-8.2 H 3152908075) ALBUMIN (test code = 4.5 g/dL 3.5-5.0 0995319131) ALK PHOS (test code = 153 U/L 34-122 H 2231592313) ALTv (test code = 15 U/L 5-50 2-6) AST(SGOT) (test code = 21 U/L 13-40 2146527179) eGFR (test code = 9.4 mL/min/1.73m2 7397839575) ALECIA (test code = ALECIA) Association of Glomerular Filtration Rate (GFR) and Staging of Kidney Disease* + --+ --+ ------+| GFR (mL/min/1.73 m2) ?| With Kidney Damage ?| ?Without Kidney Damage+ --------+ --------+ +| ?>90 ?| ?Stage one ?| ? Normal ?+ ---+ ---+ -------+| ?60-89 ?| ?Stage two ?| ? Decreased GFR ? + --+ --+ ------+| ?30-59 ?| ?Stage three ?| ? Stage three ? + --+ --+ ------+| ?15-29 ?| ?Stage four ? | ? Stage four ?+ ---+ ---+ -------+| ?<15 (or dialysis) ? ?| ?Stage five ? | ? Stage five ?+ ---+ ---+ -------+ *Each stage assumes the associated GFR level has been in effect for at least three months. ?Stages 1 to 5, with or without kidney disease, indicate chronic kidney disease. Notes: Determination of stages one and two (with eGFR >59mL/min/1.73 m2) requires estimation of kidney damage for at least three months as defined by structural or functional abnormalities of the kidney, manifested by either:Pathological abnormalities or Markers of kidney damage (including abnormalities in the composition of the blood or urine or abnormalities in imaging tests). Lab Interpretation Abnormal (test code = 48871-0) [facility] Test Item Value Reference Range Interpretation Comments LIPASE (test code = 3932599795) 423 U/L 0-220 H Lab Interpretation (test code = Abnormal 36852-3) [facility]:12[facility]05 Test Item Value Reference Range Interpretation Comments LIPASE (test code = 1045836342) 423 U/L 0-220 H Lab Interpretation (test code = Abnormal 32947-8) [facility] ACT LOW [id number] 16:30:23 Test Item Value Reference Range Interpretation Comments ACTLR (test code = 320 See_Comment H [Automat ed message] 9744950181) The system [employer] generated this result transmitted ref erence range: 89 - 169 Seconds. The reference range was not used to int erpret this result as normal/abnormal . Lab Interpretation (test Abnormal code = 13963-8) [facility] ACT LOW [id number] 15:20:36 Test Item Value Reference Range Interpretation Comments ACTLR (test code = 175 See_Comment H [Automat ed message] 8274463622) The system [employer] generated this result transmitted ref erence range: 89 - 169 Seconds. The reference range was not used to int erpret this result as normal/abnormal . Lab Interpretation (test Abnormal code = 63167-3) [facility] WITH [id number] 11:37:45 Test Item Value Reference Range Interpretation Comments WBC (test code = 4.88 See_Comment [Automated 6690-2) message] The sy stem which generated this result transmitted reference range : 4.20 - 10.70 10*3/?L. The reference range was not used to interpret this result as normal/abnormal . RBC (test code = 3.40 See_Comment L [Automated 789-8) message] The sy stem which generated this result transmitted reference range : 4.26 - 5.52 10*6/?L. The reference range was not used to interpret this result as normal/abnormal . HGB (test code = 10.1 g/dL 12.2-16.4 L 718-7) HCT (test code = 30.9 % 38.4-49.3 L 4544-3) MCV (test code = 90.9 fL 81.7-95.6 787-2) MCH (test code = 29.7 pg 26.1-32.7 785-6) MCHC (test code = 32.7 g/dL 31.2-35.0 786-4) RDW-SD (test code = 56.2 fL 38.5-51.6 H 49907-7) RDW-CV (test code = 17.2 % 12.1-15.4 H 788-0) PLT (test code = 90 See_Comment L [Automated 777-3) message] The sy stem which generated this result transmitted reference range : 150 - 328 10*3/ ?L. The reference r akhil was not used to interpret this result as normal/abnormal . MPV (test code = 10.3 fL 9.8-13.0 74211-1) IPF % (test code = 5.7 % 1.2-10.7 Platelet count 9825729833) measured by fluorescence method. NRBC/100 WBC (test 0.0 See_Comment [Automat ed code = 6747764014) message] The system which generated this result transmitted reference range : 0.0 - 10.0 /100 WBCs. The refer ence range was not u sed to interpret th is result as normal/abnormal . NRBC x10^3 (test code See_Comment [Auto mated = 3083273901) message] The s ystem which generated this result transmitted reference range : 10*3/?L. The reference range was not used to interpret this result as normal/abnormal . GRAN MAT (NEUT) % 65.5 % (test code = 770-8) IMM GRAN % (test code 0.20 % = 9075814224) LYMPH % (test code = 19.7 % 736-9) MONO % (test code = 10.9 % 5905-5) EOS % (test code = 3.3 % 713-8) BASO % (test code = 0.4 % 706-2) GRAN MAT x10^3(ANC) 3.20 10*3/uL 1.99-6.95 (test code = 5242756997) IMM GRAN x10^3 (test 0.00-0.06 code = 7789834955) LYMPH x10^3 (test code 0.96 10*3/uL 1.09-3.23 L = 731-0) MONO x10^3 (test code 0.53 10*3/uL 0.36-1.02 = 742-7) EOS x10^3 (test code = 0.16 10*3/uL 0.06-0.53 711-2) BASO x10^3 (test code 0.01-0.09 = 704-7) PLT ESTIMATE (test Decreased Normal A code = 9317-9) Lab Interpretation Abnormal (test code = 92721-0) [facility] METABOLIC PANEL (NA, K, CL, CO2, GLUCOSE, BUN, CREATININE, CA)2022-09-25 11:06:35 Test Item Value Reference Range Interpretation Comments NA (test code = 135 mmol/L 135-145 8115508485) K (test code = 3.5 mmol/L 3.5-5.0 6736227686) CL (test code = 95 mmol/L 98-108 L 2701296336) CO2 TOTAL (test code = 26 mmol/L 23-31 4638923120) AGAP (test code = 14 2-16 5042600661) BUN (test code = 33 mg/dL 7-23 H 6087286627) GLUCOSE (test code = 181 mg/dL 70-110 H 2982988061) CREATININE (test code = 6.61 mg/dL 0.60-1.25 H 9466810461) CALCIUM (test code = 8.8 mg/dL 8.6-10.6 8858785628) eGFR (test code = 9.1 mL/min/1.73m2 7244640058) ALECIA (test code = ALECIA) Association of Glomerular Filtration Rate (GFR) and Staging of Kidney Disease* + --+ --+ ------+| GFR (mL/min/1.73 m2) ?| With Kidney Damage ?| ?Without Kidney Damage+ --------+ --------+ +| ?>90 ?| ?Stage one ?| ? Normal ?+ ---+ ---+ -------+| ?60-89 ?| ?Stage two ?| ? Decreased GFR ? + --+ --+ ------+| ?30-59 ?| ?Stage three ?| ? Stage three ? + --+ --+ ------+| ?15-29 ?| ?Stage four ? | ? Stage four ?+ ---+ ---+ -------+| ?<15 (or dialysis) ? ?| ?Stage five ? | ? Stage five ?+ ---+ ---+ -------+ *Each stage assumes the associated GFR level has been in effect for at least three months. ?Stages 1 to 5, with or without kidney disease, indicate chronic kidney disease. Notes: Determination of stages one and two (with eGFR >59mL/min/1.73 m2) requires estimation of kidney damage for at least three months as defined by structural or functional abnormalities of the kidney, manifested by either:Pathological abnormalities or Markers of kidney damage (including abnormalities in the composition of the blood or urine or abnormalities in imaging tests). Lab Interpretation Abnormal (test code = 51791-0) [facility] 22:01:54 Test Item Value Reference Interpretation Comments Range Height (test code = 66 in 0325052067) Weight (test code = 184 lbs 2170512601) Systolic BP (test code 120 mmHg = 7263053146) Diastolic BP (test 62 mmHg code = 2785600429) Heart Rate (test code 48 bpm = 6124016886) LVOT stroke volume 73.50 cm3 (test code = 9968917644) EF(Teich) (test code = 50.50 % 3261152092) LVIDD (test code = 4.10 cm 0824837948) LVIDS (test code = 3.10 cm 8598206638) Left Ventricular End 36.7 mL Systolic Volume by Teichholz Method (test code = 4138328) Left Ventricular End 74.2 mL Diastolic Volume by Teichholz Method (test code = 3850208) IVS (test code = 1.77 cm 8648750877) LVPWD (test code = 1.85 cm 6286491529) LVOT diameter (test 1.89 cm code = 6278911530) LVOT area (test code = 2.80 cm2 9672130954) FS (test code = 25 % 9096647775) MV Peak E Marilee (test 151.6 cm/s code = 1731756812) MV Peak A Marilee (test 38.5 cm/s code = 8680603119) E/A ratio (test code = 3.90 ratio 0693707701) E wave decelartion 0.27 s time (test code = 2567376943) LVOT peak marilee (test 113.4 cm/s code = 9004813638) LVOT mn grad (test 1.8 mmHg code = 3655300412) LA size (test code = 4.2 cm 8671481647) Aortic valve mean 126.4 cm/s velocity (test code = 1482272695) Ao peak marilee (test code 235.7 cm/s = 5418348972) Ao VTI (test code = 50.5 cm 9660971053) AV LVOT peak gradient 5.1 mmHg (test code = 1447960173) LVOT peak VTI (test 26.2 cm code = 5097095776) AV area by cont VTI 1.5 cm2 (test code = 8135563025) AV area peak marilee (test 1.4 cm2 code = 4006818692) ACS (test code = 1.56 cm 2728454299) LV V1 mean (test code 56.70 cm/s = 4415440279) Ao max PG (test code = 22.20 mm[Hg] 9745382004) MV mean gradient (test 2.26 mmHg code = 2512087797) MV peak gradient (test 8.9 mmHg code = 4092134891) MV pk marilee (test code = 149.0 cm/s 7307464499) MV valve area by 1.56 cm2 continuity eq (test code = 2582376464) MV VTI (test code = 47.2 cm 5078566344) MV dec slope (test 556.30 cm/s2 code = 9609186680) MV V2 mean (test code 63.60 cm/s = 4379938757) TR Peak Marilee (test code 274.7 cm/s = 2615496014) Triscuspid Valve 30.3 mmHg Regurgitation Peak Gradient (test code = 2911997363) PV PEAK VELOCITY (test 80.6 cm/s code = 5097156428) PV peak gradient (test 2.6 mmHg code = 7274734029) Ao root diam (test 3.10 cm code = 1870853492) AV peak gradient (test 22.2 mmHg code = 7153462137) AV valve area (test 1.45 cm2 code = 3177591161) AV mean gradient (test 8.0 mmHg code = 9307551514) Aortic root (test code 3.1 cm = 0803839927) Ao root annulus (test 3.1 cm code = 1476793153) PW (test code = 1.85 cm 0.6-1.1 6746008328) EF - 2D (test code = 50.50 % 29174507) Interventricular 1.77 cm Septum Diastolic Thickness by 2D (test code = 0151205) BSA (test code = 1.93 m2 6487849132) LAV(MOD-sp4) (test 123.10 mL code = 1062712527) LA Volume Index (BP) 49.5 mL/m2 (test code = 7396686586) LA volume (BP) (test 95.6 mL code = 7443788495) LAV(MOD-sp2) (test 77.50 mL code = 8702366504) Radiology Study observation (narrative) (test code = 26184-8) ALECIA (test code = ALECIA) ?Left?Ventricle: Severely increased wall thickness. Severe septal thickening. Severely increased ventricular mass. There is severe concentric hypertrophy. LVMI 19 g/m2. Septal flattening in diastole consistent with right ventricular volume overload. . No regional wall motion abnormalities. Estimated EF is 55 - 60%. There is grade 3 diastolic dysfunction. Elevated left ventricular filling pressure. ?Left?Atrium: Left atrium is severely dilated. Left atrium volume index is 49.5 mL/m2. ?Right?Ventricle: Right ventricle is dilated. Mildly increased wall thickness. Low normal systolic function. Left VentricleSeverely increased wall thickness. Severe septal thickening. Severely increased ventricular mass. There is severe concentric hypertrophy. LVMI 19 g/m2. Septal flattening in diastole consistent with right ventricular volume overload. . No regional wall motion abnormalities. Estimated EF is 55 - 60%. There is grade 3 diastolic dysfunction. Elevated left ventricular filling pressure.Right VentricleRight ventricle is dilated. Mildly increased wall thickness. Low normal systolic function.Left AtriumLeft atrium is severely dilated. Left atrium volume index is 49.5 mL/m2.Right AtriumRight atrium is dilated.IVC/SVCIVC diameter is greater than 21 mm and decreases less than 50% during inspiration; therefore the estimated right atrial pressure is elevated (~15 mmHg).Mitral ValveModerately calcified leaflets. Mild transvalvular regurgitation. No stenosis.Tricuspid ValveMild transvalvular regurgitation. Right ventricular systolic pressure is 40-45 mmHg. No stenosis.Aortic ValveModerately thickened cusps. Mild annular calcification. Mild transvalvular regurgitation. Consistent with mild aortic stenosis.Pulmonic ValveValve structure is normal. Mild transvalvular regurgitation. No stenosis.Ascending AortaAtherosclerosis of the sinus of Valsalva.PericardiumNo pericardial effusion.Study DetailsStudy quality was adequate. A complete echocardiogram was performed using 2D, color flow Doppler and spectral Doppler. The apical, parasternal, subcostal and suprasternal views were obtained. 5 mL of Lumason ultrasound enhancing agent used. Patient exhibited sinus bradycardia. Technical difficulties due to patient's heart rhythm and patient's body habitus. [facility] GLUCOSE (AUTOMATED)2022-09-24 16:47:05 Test Item Value Reference Range Interpretation Comments POCT GLU (test code = 8452062389) 133 mg/dL 70-110 H Lab Interpretation (test code = Abnormal 79275-7) [facility] GLUCOSE (AUTOMATED)2022-09-24 16:47:05 Test Item Value Reference Range Interpretation Comments POCT GLU (test code = 3547574027) 133 mg/dL 70-110 H Lab Interpretation (test code = Abnormal 03509-4) [facility] GLUCOSE (AUTOMATED)2022-09-24 14:21:22 Test Item Value Reference Range Interpretation Comments POCT GLU (test code = 2391595647) 111 mg/dL 70-110 H Lab Interpretation (test code = Abnormal 66938-1) [facility] GLUCOSE (AUTOMATED)2022-09-24 14:21:22 Test Item Value Reference Range Interpretation Comments POCT GLU (test code = 4711921547) 111 mg/dL 70-110 H Lab Interpretation (test code = Abnormal 65552-2) [facility] GLUCOSE (AUTOMATED)2022-09-24 12:31:49 Test Item Value Reference Range Interpretation Comments POCT GLU (test code = 3713754781) 197 mg/dL 70-110 H Lab Interpretation (test code = Abnormal 81785-8) [facility] GLUCOSE (AUTOMATED)2022-09-24 12:31:49 Test Item Value Reference Range Interpretation Comments POCT GLU (test code = 2607983789) 197 mg/dL 70-110 H Lab Interpretation (test code = Abnormal 32347-6) [facility] GLUCOSE (AUTOMATED)2022-09-24 11:59:04 Test Item Value Reference Range Interpretation Comments POCT GLU (test code = 4278598537) 50 mg/dL 70-110 LL Lab Interpretation (test code = Abnormal 46687-9) [facility] GLUCOSE (AUTOMATED)2022-09-24 11:59:04 Test Item Value Reference Range Interpretation Comments POCT GLU (test code = 7066247662) 50 mg/dL 70-110 LL Lab Interpretation (test code = Abnormal 94339-1) [facility] GLUCOSE (AUTOMATED)2022-09-24 11:42:25 Test Item Value Reference Range Interpretation Comments POCT GLU (test code = 43 mg/dL 70-110 LL Notifi ed Provider 6272581762) Lab Interpretation (test Abnormal code = 22415-8) [facility] GLUCOSE (AUTOMATED)2022-09-24 11:42:25 Test Item Value Reference Range Interpretation Comments POCT GLU (test code = 43 mg/dL 70-110 LL Notifi ed Provider 6516031139) Lab Interpretation (test Abnormal code = 72082-6) [facility] 17:43:32 Test Item Value Reference Range Interpretation Comments APTT Patient (test 30 See_Comment [Automat ed code = 3173-2) message] The system which generated this result transmitted reference range : 23 - 38 Seconds . The reference range was not used to interpr et this result as normal/abnormal . ALECIA (test code = ALECIA) The [facility] patient population mean normal value for aPTT is 30 seconds. Lab Interpretation Normal (test code = 05062-7) [facility] CenterPROTHROMBIN TIME / [id number] 17:41:29 Test Item Value Reference Range Interpretation Comments PROTIME PATIENT (test 14.9 See_Comment H [Auto mated message] code = 5964-2) The system wh ich generated this result transmitted ref erence range: 12.0 - 1 4.7 Seconds. The reference range was not used to int erpret this result as normal/abnormal . INR (test code = 6301-6) 1.2 Nor mal INR <1.1; Warfarin Therap eutic range 2.0 to 3. 0 or 2.5 to 3.5, dep ending upon the indica tions. 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 CREATININE (test 5.5 mg/dL 0.6-1.3 H code = CREAT) CALCIUM (test code = 9.5 mg/dL 8.0-10.5 N CA) [id number] 03:44:00 Test Item Value Reference Range Interpretation Comments MAGNESIUM (test code = MAG) 2.24 mg/dL 1.80-2.40 N CBC W/AUTO [id number] 03:25:00 Test Item Value Reference Range Interpretation [...] NO = MDIFF) - XR CHEST 1 [id number] [facility]:00[facility] 1975 Sex: M FAX: Bill Arteaga MD [phone] [place]: St: ADM FAX: Rey Ferrer MD [phone] FAX: Nithin Rowan MD [phone] Name: MARTY BASS [facility] : 1975 Age/S: 46/M [address] [place] [address] Unit #: [id number] Loc: [address] [address] Phys: Rey Hinojosa MD Acct: [id number] Dis Date: Status: ADM IN PHONE #: [phone] Exam Date: 04/04/2022 0501 FAX #: [phone] Reason: DAILY WHILE IN CVICU EXAMS: CPT CODE: [id number] XR CHEST 1 V 29854 PROCEDURE INFORMATION: Exam: XR Chest Exam date andtime: 04/04/2022 5:03 AM Age: 46 years old Clinical indication: Other: Daily while in cvicu TECHNIQUE: Imaging protocol: Radiologic exam of the chest. Views: 1 view. COMPARISON: CR XR CHEST 1V 35:10 AM FINDINGS: Lungs: Grossly stable diffuse bilateral [...] Rey Hinojosa MD; Nithin Chaudhry MD Technologist: RT Orestes(R) Trnscrd Date/Time/By: 04/04/2022 (0754) : By: [email or web address] Orig Print D/T: S: 04/04/2022 (0754) PAGE 1 Signed ReportGLUCOSE [id number] 20:34:00 Test Item Value Reference Range Interpretation Comments GLUCOSE BEDSIDE (test 231 MG/DL 70-110 H Perfor med by certified code = GLUBED) 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 [facility] GLUCOSE [id number] 15:27:00 Test Item Value Reference Range Interpretation Comments GLUCOSE BEDSIDE (test 157 MG/DL 70-110 H Perfor med by certified code = GLUBED) 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 [facility] GLUCOSE [id number] 10:43:00 Test Item Value Reference Range Interpretation Comments GLUCOSE BEDSIDE (test 265 MG/DL 70-110 H Perfor med by certified code = GLUBED) 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 [facility] GLUCOSE [id number] 07:22:00 Test Item Value Reference Range Interpretation Comments GLUCOSE BEDSIDE (test 365 MG/DL 70-110 H Perfor med by certified code = GLUBED) 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 [facility] BASIC METABOLIC [id number] 02:59:00 Test Item Value Reference Range Interpretation [...] the recommended for piero for GFRby the [facility] Kidney Foundati on for Adults.The GFR will not calculate if th e sex is unknown or if thepatient's ag e is <18 years. CREATININE (test 7.0 mg/dL 0.6-1.3 H code = CREAT) CALCIUM (test code = 8.9 mg/dL 8.0-10.5 N CA) [id number] 02:59:00 Test Item Value Reference Range Interpretation Comments MAGNESIUM (test code = MAG) 2.33 mg/dL 1.80-2.40 N CBC W/AUTO [id number] 02:45:00 Test Item Value Reference Range Interpretation [...] REQUIRED (test code NO = MDIFF) GLUCOSE [id number] 20:43:00 Test Item Value Reference Range Interpretation Comments GLUCOSE BEDSIDE (test 224 MG/DL 70-110 H Perfor med by certified code = GLUBED) 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 [facility] [id number] 20:18:00 Test Item Value Reference Range Interpretation Comments PREALBUMIN (test code = PREALB) 10.5 mg/dL 16.0-40.0 L GLUCOSE [id number] 16:37:00 Test Item Value Reference Range Interpretation Comments GLUCOSE BEDSIDE (test 239 MG/DL 70-110 H Perfor med by certified code = GLUBED) 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 [facility] GLUCOSE [id number] 11:59:00 Test Item Value Reference Range Interpretation Comments GLUCOSE BEDSIDE (test 179 MG/DL 70-110 H Perfor med by certified code = GLUBED) 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 [facility] GLUCOSE [id number] 07:34:00 Test Item Value Reference Range Interpretation Comments GLUCOSE BEDSIDE (test 205 MG/DL 70-110 H Perfor med by certified code = GLUBED) 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 [facility] BASIC METABOLIC [id number] 03:58:00 Test Item Value Reference Range Interpretation [...] code = 9.3 mg/dL 8.0-10.5 N CA) [id number] 03:58:00 Test Item Value Reference Range Interpretation Comments MAGNESIUM (test code = MAG) 2.22 mg/dL 1.80-2.40 N CBC W/AUTO [id number] 03:43:00 Test Item Value Reference Range Interpretation [...] REQUIRED (test code NO = MDIFF) - DUP VEIN [id number] 00:00:00 [facility] 1975 Sex: M Name:MARTY BASS [facility] : 1975 Age/S: 46 / M [address] [place] [address] Bl Unit #: [id number] Loc: [place] [address] Phys: Violeta Marinelli [facility] Acct: [id number] Dis Date: Status: ADM INPHONE #: [phone] Exam Date: 04/02/2022 1532 FAX #: [phone] Reason: R/O DVT EXAMS: CPT CODE: [id number] DUP VEIN SEB 60404 PROCEDURE INFORMATION: Exam: US Duplex Lower Extremity VeinsDavid Exam date and time: 04/02/2022 2:58 PM Age: 46 years old Clinical indication: Screening exam; Additional info: R/O dvt TECHNIQUE: Imaging protocol: Real-time duplex ultrasound of the bilateral extremities with 2-D leavitt scale, color Doppler flow and spectral waveform analysis including responses to compression and other maneuvers (when performed) with image documentation. Complete exam focused on thelower extremity veins. COMPARISON: US DUP VEIN SEB 03/23/2022 4:13 PM FINDINGS: Right deep veins: Unremarkable. The common femoral, femoral, proximal profunda femoral and popliteal veins are patent without thrombus. Normal Doppler waveforms. Normal compressibility and/or augmentation response. Right superficial veins: Saphenofemoral junction is patent without thrombus. Left deep veins: Unremarkable. The common femoral, femoral, proximal profunda femoral and popliteal veins are patent without thrombus.Normal Doppler waveforms. Normal compressibility and/or augmentation response. Left superficial veins: Saphenofemoral junction is patent without thrombus. Soft tissues: Unremarkable. IMPRESSION: No evidence of deep vein thrombosis. Electronically Signed by Jae Chavez on 3at 1550 Reported and signed by: Yue Chavez M.D. CC: Bill Yeager MD; Violeta calle; Nithin Chaudhry MD Technologist: Queenie Arbeu RDMS(Jihan)(BR) Trnscb Date/Time: 04/02/2022 (1550) SadiaMR72 Orig Print D/T: S: 04/02/2022 (0510) Probe: PAGE 1 Signed Report- XR CHEST 1 [id number] 00:00:00 [facility] 1975 Sex: M FAX: Bill Arteaga MD [phone] [place]: St: [facility] FAX: Rey Ferrer MD [phone] FAX: Nithin Rowan MD [phone] Name: MARTY BASS [facility] : 1975 Age/S: 46/M [address] [place] [address] Unit #: [id number] Loc: G.[address] [place] [address] Phys: Rey Hinojosa MD Acct: [id number] Dis Date: Status:ADM IN PHONE #: [phone] Exam Date: 04/02/2022510 FAX #: [phone] Reason: DAILY WHILE IN CVICU EXAMS: CPT CODE: [id number] XR CHEST 1 V 14440 PROCEDURE INFORMATION: Exam: XR Chest Exam date and time: 04/02/2022 5:10 AM Age: 46 years old Clinical indication: Other: Cardiac surgery post op; Additional info: Daily while in cvicu TECHNIQUE: Imaging protocol: Radiologic exam of the chest. Views:1 view. COMPARISON: CR XR CHEST 1V 03/31/2022 6:10 AM FINDINGS: Tubes, catheters and devices: Removalof right neck dialysis catheter. Surgical clips overlie the mediastinum. Lungs: Moderate degree bilateral perihilar and basilar interstitial alveolar pulmonary edema versus infiltrates, pneumonia within the lungs. The pulmonary opacities are most prominent within the lower left lung. Progression of left-sided lower lung opacities is demonstrated. Pleural spaces: Unremarkable. No pleural effusion. Nopneumothorax. Heart/Mediastinum: Cardiac silhouette appears moderately enlarged. Diaphragm: Elevation of the left hemidiaphragm is demonstrated. Bones/joints: Sternotomy wires, hardware is demonstrated. IMPRESSION: 1. Moderate enlarged cardiac silhouette. 2. Moderate pulmonary edema versus infiltrates, pneumonia. Progression of opacities within left lower chest. at 0800 Reported and signed by: Kristy Farris M.D. CC: Bill Yeager MD; Rey Hinojosa MD; Nithin Chaudhry MD Technologist: Kelly Barrientos, RT(R) Trnscrd Date/Time/By: 04/02/2022 (08) : By: [email or web address] Orig Print D/T: S: 04/02/2022 (0800) PAGE 1 Signed ReportGLUCOSE [id number] 20:46:00 Test Item Value Reference Range Interpretation Comments GLUCOSE BEDSIDE (test 189 MG/DL 70-110 H Perfor med by certified code = GLUBED) 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 [facility] GLUCOSE [id number] 17:20:00 Test Item Value Reference Range Interpretation Comments GLUCOSE BEDSIDE (test 175 MG/DL 70-110 H Perfor med by certified code = GLUBED) 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 [facility] BASIC METABOLIC [id number] 15:37:00 Test Item Value Reference Range Interpretation [...] code = 9.5 mg/dL 8.0-10.5 N CA) [id number] 15:37:00 Test Item Value Reference Range Interpretation Comments MAGNESIUM (test code = MAG) 2.15 mg/dL 1.80-2.40 N GLUCOSE [id number] 07:56:00 Test Item Value Reference Range Interpretation Comments GLUCOSE BEDSIDE (test 103 MG/DL 70-110 N Perfor med by certified code = GLUBED) 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 [facility] BASIC METABOLIC [id number] 03:29:00 Test Item Value Reference Range Interpretation [...] code = 8.9 mg/dL 8.0-10.5 N CA) [id number] 03:29:00 Test Item Value Reference Range Interpretation Comments MAGNESIUM (test code = MAG) 2.34 mg/dL 1.80-2.40 N CBC W/AUTO [id number] 03:04:00 Test Item Value Reference Range Interpretation [...] REQUIRED (test code NO = MDIFF) GLUCOSE [id number] 00:22:00 Test Item Value Reference Range Interpretation Comments GLUCOSE BEDSIDE (test 148 MG/DL 70-110 H Perfor med by certified code = GLUBED) 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 [facility] GLUCOSE [id number] 21:02:00 Test Item Value Reference Range Interpretation Comments GLUCOSE BEDSIDE (test 130 MG/DL 70-110 H Perfor med by certified code = GLUBED) 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 [facility] GLUCOSE [id number] 16:06:00 Test Item Value Reference Range Interpretation Comments GLUCOSE BEDSIDE (test 123 MG/DL 70-110 H Perfor med by certified code = GLUBED) 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 [facility] GLUCOSE [id number] 11:48:00 Test Item Value Reference Range Interpretation Comments GLUCOSE BEDSIDE (test 184 MG/DL 70-110 H Perfor med by certified code = GLUBED) 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 [facility] GLUCOSE [id number] 08:25:00 Test Item Value Reference Range Interpretation Comments GLUCOSE BEDSIDE (test 207 MG/DL 70-110 H Perfor med by certified code = GLUBED) 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 [facility] BASIC METABOLIC [id number] 04:05:00 Test Item Value Reference Range Interpretation [...] code = 9.1 mg/dL 8.0-10.5 N CA) [id number] 04:05:00 Test Item Value Reference Range Interpretation Comments MAGNESIUM (test code = MAG) 2.19 mg/dL 1.80-2.40 N CBC W/AUTO [id number] 03:55:00 Test Item Value Reference Range Interpretation [...] code NO = MDIFF) POC ARTERIAL BLOOD [id number] 03:51:00 Test Item Value Reference Range Interpretation Comments POC ARTERIAL BLOOD GAS PH (test 7.400 7.35-7.45 N code = POCPHA) POC ARTERIAL BLOOD GAS PCO2 31.0 mmHg 35.0-45 L (test code = TNRANQ1N) POC TCO2 ARTERIAL (test code = 20.3 POCTCO2) POC ARTERIAL BLOOD GAS PO2 (test 76.2 mmHg 80-100.0 L code = DMENY1T) POC HCO3 ARTERIAL (test code = 19.3 MMOL/L 22.0-26.0 L JUHEJJ2R) POC BASE EXCESS (test code = -5.6 MMOL/L -4.0-4.0 L POCBEA) POC O2 SATURATION (test code = 95.5 % 90-100 N POCO2S) FIO2 (test code = FIO2A) 24 % PaO2/FiO2 (test code = OXZ7ISU1) 317.50 mm/Hg ABG DELIVERY (test code = AUSTIN) Cannula ABG TEMPERATURE (test code = 98 F TEMPA) ABG SITE (test code = SITEA) Art Line BASIC METABOLIC [id number] 03:51:00 Test Item Value Reference Range Interpretation [...] = POCGLU) 97 MG/DL 70-110 N HEMOGLOBIN [id number] 03:51:00 Test Item Value Reference Range Interpretation Comments HEMOGLOBIN ABG (test code = HGB/ABG) 7.3 G/DL 12.5-16.9 L [id number] 03:51:00 Test Item Value Reference Range Interpretation Comments HEMATOCRIT (test code = HCT/ABG) 22 % 37.5-50.7 L POC LACTIC [id number] 03:51:00 Test Item Value Reference Range Interpretation Comments POC LACTIC ACID (test code = 0.6 mmol/l 0.9-1.7 L POCLAC) GLUCOSE [id number] 00:13:00 Test Item Value Reference Range Interpretation Comments GLUCOSE BEDSIDE (test 102 MG/DL 70-110 N Perfor med by certified code = GLUBED) 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 [facility] - XR CHEST 1 [id number] 00:00:00 [facility] YOGI HARROGATEName: MARTY BASS : 1975 Sex: M FAX: Nash Yin [phone] [place]: St: ADM FAX: Nithin Rowan MD [phone] Name: MARTY BASS [facility] : 1975 Age/S: 46/M [address] [place] [address] Unit #: [id number] Loc: G.2208 [place] [address] Phys: Nash Kemp MD Acct: [id number] Dis Date: Status: ADM IN PHONE #: [phone] Exam Date: 03/31/202246 FAX #: [phone] Reason: Cardiac Surgery Post Op EXAMS: CPT CODE: [id number] XR CHEST 1 V 11824 PROCEDURE INFORMATION: Exam: XR Chest Exam date and time: 03/31/2022 6:10 AM Age: 46 years old Clinical indication: Other: Cardiac surgery post op TECHNIQUE: Imaging protocol: Radiologic exam of the chest. Views: 1 view. COMPARISON: CR XR CHEST 1V 03/30/2022 6:18 AM FINDINGS: Tubes, catheters and devices: Right IJ catheter sheath remains [...] Kemp MD; Nithin Chaudhry MD Technologist: Broderick morejon; RT Kayleigh(Elana) Trnscrd Date/Time/By: 03/31/2022 (0657) : By: [email or web address] Orig Print D/T: S: 03/31/2022 (0658) PAGE 1 Signed ReportGLUCOSE [id number] 19:02:00 Test Item Value Reference Range Interpretation Comments GLUCOSE BEDSIDE (test 129 MG/DL 70-110 H Perfor med by certified code = GLUBED) 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 [facility] GLUCOSE [id number] 07:39:00 Test Item Value Reference Range Interpretation Comments GLUCOSE BEDSIDE (test 125 MG/DL 70-110 H Perfor med by certified code = GLUBED) 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 [facility] POC ARTERIAL BLOOD [id number] 05:30:00 Test Item Value Reference Range Interpretation Comments POC ARTERIAL BLOOD GAS PH (test 7.359 7.35-7.45 N code = POCPHA) POC ARTERIAL BLOOD GAS PCO2 37.2 mmHg 35.0-45 N (test code = [id number]) POC TCO2 ARTERIAL (test code = 22.1 POCTCO2) POC ARTERIAL BLOOD GAS PO2 (test 66.2 mmHg 80-100.0 L code = UQCIK7C) POC HCO3 ARTERIAL (test code = 21.0 MMOL/L 22.0-26.0 L UZOCJH9N) POC BASE EXCESS (test code = -4.5 MMOL/L -4.0-4.0 L POCBEA) POC O2 SATURATION (test code = 92.2 % 90-100 N POCO2S) FIO2 (test code = FIO2A) 24 % PaO2/FiO2 (test code = USI0IEC5) 275.83 mm/Hg ABG DELIVERY (test code = AUSTIN) Cannula ABG TEMPERATURE (test code = 98.4 F TEMPA) ABG SITE (test code = SITEA) Art Line BASIC METABOLIC [id number] 05:30:00 Test Item Value Reference Range Interpretation [...] = POCGLU) 176 MG/DL 70-110 H HEMOGLOBIN [id number] 05:30:00 Test Item Value Reference Range Interpretation Comments HEMOGLOBIN ABG (test code = HGB/ABG) 8.0 G/DL 12.5-16.9 L [id number] 05:30:00 Test Item Value Reference Range Interpretation Comments HEMATOCRIT (test code = HCT/ABG) 23 % 37.5-50.7 L POC LACTIC [id number] 05:30:00 Test Item Value Reference Range Interpretation Comments POC LACTIC ACID (test code = 0.8 mmol/l 0.9-1.7 L POCLAC) BASIC METABOLIC [id number] 03:47:00 Test Item Value Reference Range Interpretation [...] code = 9.0 mg/dL 8.0-10.5 N CA) [id number] 03:47:00 Test Item Value Reference Range Interpretation Comments MAGNESIUM (test code = MAG) 2.05 mg/dL 1.80-2.40 N CBC W/AUTO [id number] 03:32:00 Test Item Value Reference Range Interpretation [...] REQUIRED (test code NO = MDIFF) GLUCOSE [id number] 00:26:00 Test Item Value Reference Range Interpretation Comments GLUCOSE BEDSIDE (test 131 MG/DL 70-110 H Perfor med by certified code = GLUBED) 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 [facility] GLUCOSE [id number] 00:24:00 Test Item Value Reference Range Interpretation Comments GLUCOSE BEDSIDE (test 89 MG/DL 70-110 N Perfor med by certified code = GLUBED) 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 [facility] - XR CHEST 1 [id number] 00:00:00 [facility] : 1975 Sex: M FAX: Nash Yin [phone] [place]: St: ADM FAX: Nithin Rowan MD [phone] Name: MARTY BASS [facility] [place] : 1975 Age/S: 46/M [address] [place] [address] Unit #: [id number] Loc: G.2208 [place] [address] Phys: Nash Kemp MD Acct: [id number] Dis Date: Status: ADM IN PHONE #: [phone] Exam Date: 03/30/202232 FAX #: [phone] Reason: Cardiac Surgery Post Op EXAMS: CPT CODE: [id number] XR CHEST 1 V 63252 PROCEDURE INFORMATION: Exam: XR Chest Exam date and time: 03/30/2022 6:18 AM Age: 46 years old Clinical indication: Other: Cardiac surgery post op TECHNIQUE: Imaging protocol: Radiologic exam of the chest. Views: 1 view. COMPARISON: 1. CR XR CHEST 1V 03/29/2022 5:20 AM 2. CR XR CHEST 1V 03/28/2022 5:33 AM FINDINGS: Tubes, catheters and devices: Mediastinal and left thoracostomy drains have been removed. Right IJ Bellwood-Shiva catheter sheath in place. Lungs: Indistinct interstitial [...] atelectasis. 2. Improved aeration left base with decreasedleft pleural effusion. Decreased small left pneumothorax. 3. Stable postoperative cardiomediastinal s ilhouette. at 0852 Reportedand signed by: Abimael Aburto M.D. CC: Nash Kemp MD; Nithin Chaudhry MD Technologist: Broderick Nation; Umu Maldonado, RT(R) Trnscrd Date/Time/By: 03/30/2022 (0852) : By: Юлия Orig Print D/T: S: 03/30/2022 (0877) PAGE 1 Signed ReportBASIC METABOLIC [id number] 21:37:00 Test Item Value Reference Range Interpretation [...] code = 9.1 mg/dL 8.0-10.5 N CA) [id number] 21:37:00 Test Item Value Reference Range Interpretation Comments PHOSPHOROUS (test code = PHOS) 3.9 MG/DL 2.5-4.9 [id number] 21:37:00 Test Item Value Reference Range Interpretation Comments MAGNESIUM (test code = MAG) 2.02 mg/dL 1.80-2.40 N CALCIUM [id number] 21:37:00 Test Item Value Reference Range Interpretation Comments CALCIUM IONIZED (test code = JULIO) 1.23 MMOL/L 1.09-1.30 N BASIC METABOLIC [id number] 16:21:00 Test Item Value Reference Range Interpretation [...] the recommended for piero for GFRby the [facility] Kidney Foundati on for Adults.The GFR will not calculate if th e sex is unknown or if thepatient's ag e is <18 years. CREATININE (test 4.1 mg/dL 0.6-1.3 H code = CREAT) CALCIUM (test code = 9.1 mg/dL 8.0-10.5 N CA) [id number] 16:21:00 Test Item Value Reference Range Interpretation Comments PHOSPHOROUS (test code = PHOS) 2.9 MG/DL 2.5-4.9 N [id number] 16:21:00 Test Item Value Reference Range Interpretation Comments MAGNESIUM (test code = MAG) 1.97 mg/dL 1.80-2.40 N CALCIUM [id number] 16:21:00 Test Item Value Reference Range Interpretation Comments CALCIUM IONIZED (test code = JULIO) 1.26 MMOL/L 1.09-1.30 N GLUCOSE [id number] 15:53:00 Test Item Value Reference Range Interpretation Comments GLUCOSE BEDSIDE (test 162 MG/DL 70-110 H Perfor med by certified code = GLUBED) 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 [facility] GLUCOSE [id number] 13:02:00 Test Item Value Reference Range Interpretation Comments GLUCOSE BEDSIDE (test 174 MG/DL 70-110 H Perfor med by certified code = GLUBED) 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 [facility] GLUCOSE [id number] 10:34:00 Test Item Value Reference Range Interpretation Comments GLUCOSE BEDSIDE (test 125 MG/DL 70-110 H Perfor med by certified code = GLUBED) 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 [facility] BASIC METABOLIC [id number] 10:25:00 Test Item Value Reference Range Interpretation [...] code = 9.1 mg/dL 8.0-10.5 N CA) [id number] 10:25:00 Test Item Value Reference Range Interpretation Comments PHOSPHOROUS (test code = PHOS) 3.1 MG/DL 2.5-4.9 N [id number] 10:25:00 Test Item Value Reference Range Interpretation Comments MAGNESIUM (test code = MAG) 2.06 mg/dL 1.80-2.40 N CALCIUM [id number] 10:25:00 Test Item Value Reference Range Interpretation Comments CALCIUM IONIZED (test code = JULIO) 1.25 MMOL/L 1.09-1.30 N CBC W/AUTO [id number] 09:54:00 Test Item Value Reference Range Interpretation [...] REQUIRED (test code NO = MDIFF) GLUCOSE [id number] 05:57:00 Test Item Value Reference Range Interpretation Comments GLUCOSE BEDSIDE (test 105 MG/DL 70-110 N Perfor med by certified code = GLUBED) 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 [facility] GLUCOSE [id number] 04:54:00 Test Item Value Reference Range Interpretation Comments GLUCOSE BEDSIDE (test 92 MG/DL 70-110 N Perfor med by certified code = GLUBED) 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 [facility] BASIC METABOLIC [id number] 03:33:00 Test Item Value Reference Range Interpretation [...] 9.2 mg/dL 8.0-10.5 N CA) HEPATIC FUNCTION [id number] 03:33:00 Test Item Value Reference Range Interpretation [...] INDIRECT (test code = 0.20 MG/DL BILIND) [id number] 03:33:00 Test Item Value Reference Range Interpretation Comments PHOSPHOROUS (test code = PHOS) 3.8 MG/DL 2.5-4.9 N [id number] 03:33:00 Test Item Value Reference Range Interpretation Comments MAGNESIUM (test code = MAG) 2.25 mg/dL 1.80-2.40 N CALCIUM [id number] 03:33:00 Test Item Value Reference Range Interpretation Comments CALCIUM IONIZED (test code = JULIO) 1.25 MMOL/L 1.09-1.30 N GLUCOSE [id number] 03:32:00 Test Item Value Reference Range Interpretation Comments GLUCOSE BEDSIDE (test 113 MG/DL 70-110 H [facility] med by certified code = GLUBED) 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 [facility] POC ARTERIAL BLOOD [id number] 03:23:00 Test Item Value Reference Range Interpretation Comments POC ARTERIAL BLOOD GAS PH (test 7.347 7.35-7.45 L code = POCPHA) POC ARTERIAL BLOOD GAS PCO2 43.7 mmHg 35.0-45 N (test code = AQXWUM4K) POC TCO2 ARTERIAL (test code = 25.4 POCTCO2) POC ARTERIAL BLOOD GAS PO2 (test 107.0 mmHg 80-100.0 H code = DIEBV9N) POC HCO3 ARTERIAL (test code = 24.0 MMOL/L 22.0-26.0 N PCAWPE6N) POC BASE EXCESS (test code = -1.7 MMOL/L -4.0-4.0 N POCBEA) POC O2 SATURATION (test code = 97.9 % 90-100 N POCO2S) FIO2 (test code = FIO2A) 44 % PaO2/FiO2 (test code = [id number]) 243.18 mm/Hg ABG DELIVERY (test code = AUSTIN) Cannula ABG TEMPERATURE (test code = 98 F TEMPA) ABG SITE (test code = SITEA) Art Line BASIC METABOLIC [id number] 03:23:00 Test Item Value Reference Range Interpretation [...] = POCGLU) 63 MG/DL 70-110 L HEMOGLOBIN [id number] 03:23:00 Test Item Value Reference Range Interpretation Comments HEMOGLOBIN ABG (test code = HGB/ABG) 7.6 G/DL 12.5-16.9 L [id number] 03:23:00 Test Item Value Reference Range Interpretation Comments HEMATOCRIT (test code = HCT/ABG) 22 % 37.5-50.7 L POC LACTIC [id number] 03:23:00 Test Item Value Reference Range Interpretation Comments POC LACTIC ACID (test code = 0.6 mmol/l 0.9-1.7 L POCLAC) GLUCOSE [id number] 03:03:00 Test Item Value Reference Range Interpretation Comments GLUCOSE BEDSIDE (test 61 MG/DL 70-110 L Perfor med by certified code = GLUBED) 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 [facility] CBC W/AUTO [id number] 02:59:00 Test Item Value Reference Range Interpretation [...] NO = MDIFF) - XR CHEST 1 [id number] 00:00:00 [facility] : 1975 Sex: M FAX: Nash Yin [phone] [place]: [address] St: ADM FAX: Bill Arteaga MD [phone] FAX: Nithin Rowan MD [phone] Name: MARTY BASS [facility] [place] : 1975 Age/S: 46/M [address] [place] [address] Unit #: [id number] Loc: [address] [place] [address] Phys: Nash Kemp MD Acct: [id number] Dis Date: Status: ADM IN PHONE #: [phone] Exam Date: 03/29/2022623 FAX #: [phone] Reason: Cardiac Surgery Post Op EXAMS: CPT CODE: [id number] XR CHEST 1 V [id number] PROCEDURE INFORMATION: Exam: XR Chest Exam date [...] tube. 2. Mildly worsening lung opacities. at 2083 Reported and signed by: Roger Nixon M.D. CC: Nash Kemp MD; Bill Yeager MD; Nithin Chaudhry MD Technologist: Dash Love RT(R) Trnscrd Date/Time/By: 03/29/2022 (0757) : By: [email or web address] Orig Print D/T: S: 03/29/2022 (1614) PAGE 1 Signed ReportPOC ARTERIAL BLOOD [id number] 21:59:00 Test Item Value Reference Range Interpretation Comments POC ARTERIAL BLOOD GAS PH (test 7.342 7.35-7.45 L code = POCPHA) POC ARTERIAL BLOOD GAS PCO2 39.1 mmHg 35.0-45 N (test code = QOYIVR6R) POC TCO2 ARTERIAL (test code = 22.6 POCTCO2) POC ARTERIAL BLOOD GAS PO2 (test 84.5 mmHg 80-100.0 N code = YYRSL9H) POC HCO3 ARTERIAL (test code = 21.4 MMOL/L 22.0-26.0 L HEFRPA1L) POC BASE EXCESS (test code = -4.5 MMOL/L -4.0-4.0 L POCBEA) POC O2 SATURATION (test code = 96.1 % 90-100 N POCO2S) FIO2 (test code = FIO2A) 44 % PaO2/FiO2 (test code = [id number]) 192.04 mm/Hg ABG DELIVERY (test code = AUSTIN) Cannula ABG TEMPERATURE (test code = 97.4 F TEMPA) ABG SITE (test code = SITEA) Art Line BASIC METABOLIC [id number] 21:59:00 Test Item Value Reference Range Interpretation [...] = POCGLU) 124 MG/DL 70-110 H HEMOGLOBIN [id number] 21:59:00 Test Item Value Reference Range Interpretation Comments HEMOGLOBIN ABG (test code = HGB/ABG) 8.3 G/DL 12.5-16.9 L [id number] 21:59:00 Test Item Value Reference Range Interpretation Comments HEMATOCRIT (test code = HCT/ABG) 24 % 37.5-50.7 L POC LACTIC [id number] 21:59:00 Test Item Value Reference Range Interpretation Comments POC LACTIC ACID (test code = 1.3 mmol/l 0.9-1.7 N POCLAC) BASIC METABOLIC [id number] 21:15:00 Test Item Value Reference Range Interpretation [...] the recommended for piero for GFRby the [facility] Kid[facility] Foundati on for Adults.The GFR will not calculate if th e sex is unknown or if thepatient's ag e is <18 years. CREATININE (test 5.8 mg/dL 0.6-1.3 H code = CREAT) CALCIUM (test code = 9.0 mg/dL 8.0-10.5 N CA) [id number] 21:15:00 Test Item Value Reference Range Interpretation Comments PHOSPHOROUS (test code = PHOS) 3.8 MG/DL 2.5-4.9 N [id number] 21:15:00 Test Item Value Reference Range Interpretation Comments MAGNESIUM (test code = MAG) 2.41 mg/dL 1.80-2.40 H CALCIUM [id number] 21:15:00 Test Item Value Reference Range Interpretation Comments CALCIUM IONIZED (test code = JULIO) 1.23 MMOL/L 1.09-1.30 N GLUCOSE [id number] 16:15:00 Test Item Value Reference Range Interpretation Comments GLUCOSE BEDSIDE (test 257 MG/DL 70-110 H Perfor med by certified code = GLUBED) 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 [facility] POC ARTERIAL BLOOD [id number] 16:09:00 Test Item Value Reference Range Interpretation Comments POC ARTERIAL BLOOD GAS PH (test 7.314 7.35-7.45 L code = POCPHA) POC ARTERIAL BLOOD GAS PCO2 (test 36.6 mmHg 35.0-45 N code = AWZKDL9N) POC TCO2 ARTERIAL (test code = 19.7 POCTCO2) POC ARTERIAL BLOOD GAS PO2 (test 147.2 mmHg 80-100.0 H code = TBOKB0Z) POC HCO3 ARTERIAL (test code = 18.6 MMOL/L 22.0-26.0 L OZXGDP0B) POC BASE EXCESS (test code = -7.6 MMOL/L -4.0-4.0 L POCBEA) POC O2 SATURATION (test code = 99.1 % 90-100 N POCO2S) ABG DELIVERY (test code = AUSTIN) Cannula ABG SITE (test code = SITEA) Art Line ROXY'S TEST (test code = ALLENS) N/A BASIC METABOLIC [id number] 16:09:00 Test Item Value Reference Range Interpretation [...] code = POCGLU) 281 MG/DL 70-110 H HEMOGLOBIN [id number] 16:09:00 Test Item Value Reference Range Interpretation Comments HEMOGLOBIN ABG (test code = HGB/ABG) 7.6 G/DL 12.5-16.9 L [id number] 16:09:00 Test Item Value Reference Range Interpretation Comments HEMATOCRIT (test code = HCT/ABG) 22 % 37.5-50.7 L POC LACTIC [id number] 16:09:00 Test Item Value Reference Range Interpretation Comments POC LACTIC ACID (test code = 0.7 mmol/l 0.9-1.7 L POCLAC) BASIC METABOLIC [id number] 14:46:00 Test Item Value Reference Range Interpretation [...] the recommended for piero for GFRby the [facility] Kidney Foundati on for Adults.The GFR will not calculate if th e sex is unknown or if thepatient's ag e is <18 years. CREATININE (test 6.3 mg/dL 0.6-1.3 H code = CREAT) CALCIUM (test code = 9.1 mg/dL 8.0-10.5 N CA) POC ARTERIAL BLOOD [id number] 12:25:00 Test Item Value Reference Range Interpretation Comments POC ARTERIAL BLOOD GAS PH (test 7.343 7.35-7.45 L code = POCPHA) POC ARTERIAL BLOOD GAS PCO2 (test 41.5 mmHg 35.0-45 N code = BMAKAT3E) POC TCO2 ARTERIAL (test code = 23.8 POCTCO2) POC ARTERIAL BLOOD GAS PO2 (test 217.8 mmHg 80-100.0 HH code = DAZWN3N) POC HCO3 ARTERIAL (test code = 22.5 MMOL/L 22.0-26.0 N TYQAQY1I) POC BASE EXCESS (test code = -3.2 MMOL/L -4.0-4.0 N POCBEA) POC O2 SATURATION (test code = 99.7 % 90-100 N POCO2S) ABG DELIVERY (test code = AUSTIN) Cannula ABG SITE (test code = SITEA) Art Line BASIC METABOLIC [id number] 12:25:00 Test Item Value Reference Range Interpretation [...] = POCGLU) 159 MG/DL 70-110 H HEMOGLOBIN [id number] 12:25:00 Test Item Value Reference Range Interpretation Comments HEMOGLOBIN ABG (test code = 14.4 G/DL 12.5-16.9 N HGB/ABG) [id number] 12:25:00 Test Item Value Reference Range Interpretation Comments HEMATOCRIT (test code = HCT/ABG) 42 % 37.5-50.7 N POC LACTIC [id number] 12:25:00 Test Item Value Reference Range Interpretation Comments POC LACTIC ACID (test code = 0.4 mmol/l 0.9-1.7 L POCLAC) GLUCOSE [id number] 12:18:00 Test Item Value Reference Range Interpretation Comments GLUCOSE BEDSIDE (test 160 MG/DL 70-110 H Perfor med by certified code = GLUBED) 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 [facility] GLUCOSE [id number] 08:56:00 Test Item Value Reference Range Interpretation Comments GLUCOSE BEDSIDE (test 107 MG/DL 70-110 N Perfor med by certified code = GLUBED) 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 [facility] GLUCOSE [id number] 06:05:00 Test Item Value Reference Range Interpretation Comments GLUCOSE BEDSIDE (test 234 MG/DL 70-110 H Perfor med by certified code = GLUBED) 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 [facility] BASIC METABOLIC [id number] 04:15:00 Test Item Value Reference Range Interpretation [...] 8.0-10.5 N CA) COMMENTS: POD #1HEPATIC FUNCTION [id number] 04:15:00 Test Item Value Reference Range Interpretation [...] IUnit/L 20-125 code = ALKP) COMMENTS: POD #[id number] 04:15:00 Test Item Value Reference Range Interpretation Comments MAGNESIUM (test code = MAG) 2.48 mg/dL 1.80-2.40 H COMMENTS: POD #1CBC W/AUTO [id number] 03:57:00 Test Item Value Reference Range Interpretation [...] code NO = MDIFF) POC ARTERIAL BLOOD [id number] 03:39:00 Test Item Value Reference Range Interpretation Comments POC ARTERIAL BLOOD GAS PH (test 7.371 7.35-7.45 N code = POCPHA) POC ARTERIAL BLOOD GAS PCO2 (test 39.0 mmHg 35.0-45 N code = [id number]) POC TCO2 ARTERIAL (test code = 23.9 POCTCO2) POC ARTERIAL BLOOD GAS PO2 (test 67.6 mmHg 80-100.0 L code = EIBQT1V) POC HCO3 ARTERIAL (test code = 22.7 MMOL/L 22.0-26.0 N [id number]) POC BASE EXCESS (test code = -2.7 MMOL/L -4.0-4.0 N POCBEA) POC O2 SATURATION (test code = 93.0 % 90-100 N POCO2S) ABG DELIVERY (test code = AUST[place]) Cannula ABG TEMPERATURE (test code = 98 F TEMPA) ABG SITE (test code = SITEA) Art Line ROXY'S TEST (test code = ALLENS) N/A BASIC METABOLIC [id number] 03:39:00 Test Item Value Reference Range Interpretation [...] = POCGLU) 308 MG/DL 70-110 H HEMOGLOBIN [id number] 03:39:00 Test Item Value Reference Range Interpretation Comments HEMOGLOBIN ABG (test code = HGB/ABG) 8.0 G/DL 12.5-16.9 L [id number] 03:39:00 Test Item Value Reference Range Interpretation Comments HEMATOCRIT (test code = HCT/ABG) 24 % 37.5-50.7 L POC LACTIC [id number] 03:39:00 Test Item Value Reference Range Interpretation Comments POC LACTIC ACID (test code = 1.1 mmol/l 0.9-1.7 N POCLAC) GLUCOSE [id number] 02:42:00 Test Item Value Reference Range Interpretation Comments GLUCOSE BEDSIDE (test 271 MG/DL 70-110 H Perfor med by certified code = GLUBED) 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 [facility] - XR CHEST 1 [id number] 00:00:00 [facility] 1975 Sex: M FAX: Nash Yin [phone] [place]: St: ADM FAX: Bill Arteaga MD [phone] FAX: Nithin Rowan MD [phone] Name: KALIMARTY [facility] : 1975 Age/S: 46/M [address] [place] [address] Unit #: [id number] Loc: G.2208 [place] [address] Phys: Nash Kemp MD Acct: [id number] Dis Date: Status: ADM IN PHONE #: [phone] Exam Date: 03/28/2022714 FAX #: [phone] Reason: Cardiac Surgery Post Op EXAMS: CPT CODE: [id number] XR CHEST 1 V 23585 PROCEDURE INFORMATION: Exam: XR Chest Exam date and time: 03/28/2022 5:33 AM Age: 46 years old Clinical indication: Other: Cardiac surgery postop TECHNIQUE: Imaging protocol: Radiologic exam of the chest. Views: 1 view. COMPARISON: CR XR [id number] 03/27/2022 5:17 AM FINDINGS: Tubes, catheters and [...] increased opacities in the right lung base. Electronical ly Signed by Jae Benjamin on 03/28/2022 at 0745 Reported and signed by: Baltazar Benjamin M.D. CC: Nash Kemp MD; Bill Yeager MD; Nithin Chaudhry MD Technologist: [place] [employer] Date/Time/By: 03/28/2022 (0745) : By: [email or web address] Orig Print D/T: S: 03/28/2022 (0745) PAGE 1 Signed ReportBASIC METABOLIC [id number] 22:19:00 Test Item Value Reference Range Interpretation [...] code = 9.0 mg/dL 8.0-10.5 N CA) [id number] 22:19:00 Test Item Value Reference Range Interpretation Comments MAGNESIUM (test code = MAG) 2.51 mg/dL 1.80-2.40 H CBC W/AUTO [id number] 22:08:00 Test Item Value Reference Range Interpretation [...] code NO = MDIFF) POC ARTERIAL BLOOD [id number] 21:49:00 Test Item Value Reference Range Interpretation Comments POC ARTERIAL BLOOD GAS PH (test 7.381 7.35-7.45 N code = POCPHA) POC ARTERIAL BLOOD GAS PCO2 (test 42.6 mmHg 35.0-45 N code = UMKMEL1R) POC TCO2 ARTERIAL (test code = 26.7 POCTCO2) POC ARTERIAL BLOOD GAS PO2 (test 181.0 mmHg 80-100.0 H code = JMYIL6S) POC HCO3 ARTERIAL (test code = 25.4 MMOL/L 22.0-26.0 N UTOCLR9Z) POC BASE EXCESS (test code = 0.2 MMOL/L -4.0-4.0 N POCBEA) POC O2 SATURATION (test code = 99.6 % 90-100 N POCO2S) ABG DELIVERY (test code = AUSTIN) Cannula ABG TEMPERATURE (test code = 98 F TEMPA) ABG SITE (test code = SITEA) Art Line ROXY'S TEST (test code = ALLENS) N/A BASIC METABOLIC [id number] 21:49:00 Test Item Value Reference Range Interpretation [...] = POCGLU) 197 MG/DL 70-110 H HEMOGLOBIN [id number] 21:49:00 Test Item Value Reference Range Interpretation Comments HEMOGLOBIN ABG (test code = HGB/ABG) 9.9 G/DL 12.5-16.9 L [id number] 21:49:00 Test Item Value Reference Range Interpretation Comments HEMATOCRIT (test code = HCT/ABG) 29 % 37.5-50.7 L POC LACTIC [id number] 21:49:00 Test Item Value Reference Range Interpretation Comments POC LACTIC ACID (test code = 0.8 mmol/l 0.9-1.7 L POCLAC) BASIC METABOLIC [id number] 17:25:00 Test Item Value Reference Range Interpretation [...] mg/dL 8.0-10.5 N CA) POC ARTERIAL BLOOD [id number] 17:00:00 Test Item Value Reference Range Interpretation Comments POC ARTERIAL BLOOD GAS PH (test 7.384 7.35-7.45 N code = POCPHA) POC ARTERIAL BLOOD GAS PCO2 (test 41.4 mmHg 35.0-45 N code = HUDRSU4D) POC TCO2 ARTERIAL (test code = 26.1 POCTCO2) POC ARTERIAL BLOOD GAS PO2 (test 223.3 mmHg 80-100.0 HH code = JVQOY0C) POC HCO3 ARTERIAL (test code = 24.8 MMOL/L 22.0-26.0 N IRZGKQ5I) POC BASE EXCESS (test code = -0.4 MMOL/L -4.0-4.0 N POCBEA) POC O2 SATURATION (test code = 99.8 % 90-100 N POCO2S) ABG DELIVERY (test code = AUSTIN) HFNC ABG TEMPERATURE (test code = 98 F TEMPA) ABG SITE (test code = SITEA) Art Line BASIC METABOLIC [id number] 17:00:00 Test Item Value Reference Range Interpretation [...] = POCGLU) 203 MG/DL 70-110 H HEMOGLOBIN [id number] 17:00:00 Test Item Value Reference Range Interpretation Comments HEMOGLOBIN ABG (test code = HGB/ABG) 7.1 G/DL 12.5-16.9 L [id number] 17:00:00 Test Item Value Reference Range Interpretation Comments HEMATOCRIT (test code = HCT/ABG) 21 % 37.5-50.7 L POC LACTIC [id number] 17:00:00 Test Item Value Reference Range Interpretation Comments POC LACTIC ACID (test code = 0.8 mmol/l 0.9-1.7 L POCLAC) GLUCOSE [id number] 12:51:00 Test Item Value Reference Range Interpretation Comments GLUCOSE BEDSIDE (test 208 MG/DL 70-110 H [facility] med by certified code = GLUBED) 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 [facility] BASIC METABOLIC [id number] 11:45:00 Test Item Value Reference Range Interpretation [...] 8.8 mg/dL 8.0-10.5 N CA) CBC W/AUTO [id number] 11:31:00 Test Item Value Reference Range Interpretation Comments WHITE BLOOD CELL (test 12.2 x10 3/uL 4.5-11.0 H code = WBC) RED BLOOD CELL (test 2.06 x10 6/uL 4.00-5.60 L code = RBC) HEMOGLOBIN (test code 6.0 g/dL 12.5-16.9 LL Critic al result = HGB) called to MARGARITA CARBAJAL RN by DOMRE at 113 0 03/27/22Nmari stein back resut and tech confirmed it's [...] DIFF REQUIRED NO (test code = MDIFF) [id number] 11:26:00 Test Item Value Reference Range Interpretation Comments SURGICAL (test code = SR) R UN DATE: 03/27/22 [facility] PAGE 1 RUN TIME: 1126 Specimen Inquiry RUN USER: INTERFACE Mat ATIENT: MARTY BASS LOC: KIRTI U #: [id number] AGE/SX: 46/M ROOM: [facility] RE03/22/22REG DR: Bill Yeager MD : 77 BED: 1 DIS: STATUS: ADM IN TLOC: SPEC #: [id number] RECD: 03/26/22 STATUS: [place] REQ #: [id number] ISAIAH: 03/25/22 DR: Nash Kemp MD ENTERED: 03/26/22 SP TYPE: SURGICAL OTHR DR: Self Referred Cami Deutsch MD, Aisha MD Chaugle, Abdul Hannan MD Hyder, Shahistha MD Kaul, Kuldip K MD Raslan, Saleem MD Vu, Philip M MDORDERED: 93445, ANATOMIC SPEC COPIES TO: Self Referred Cami Deutsch MD [address] [place] [address] Chata Rowe MD [address] [place] [id number] Nash Kemp MD [address] [facility] [place] [id number] Brown Brooks MD, Kuldip K MD [address] [place], [place] [id number] Senthil Pak MD [address] [place] [address] Nithin Chaudhry MD [address] [place] [address] CONTINUED ON NEXT PAGE R UN DATE: 03/27/22 [facility] PAGE 2 RUN TIME: 1126 Specimen Inquiry RUN USER: INTERFACE S PEC #: [id number] PATIENT: MARTY BASS #[id number] (Continued) PROCEDURES: 40427 (03/27/22-111) TISSUES: A. ATRIUM - APPENDAGE CLINICAL HISTORY SAME FINAL DIAGNOSIS Left atrial appendage, segment: Hypertrophic changes and moderate intimal thickening; mildchronic inflammation. GROSS DESCRIPTION Received in formalin and designated left atrial appendage is 1 segment of pink-carlton tissuemeasuring 3.5 cm in largest dimension. Sections are submitted. Technical component performed at [facility],[address] [place] [address], [place] [address] Unless gross only, the diagnosis is based [...] 1126 END OF REPORT POC ARTERIAL BLOOD [id number] 11:15:00 Test Item Value Reference Range Interpretation Comments POC ARTERIAL BLOOD GAS PH (test 7.382 7.35-7.45 N code = POCPHA) POC ARTERIAL BLOOD GAS PCO2 (test 38.5 mmHg 35.0-45 N code = QIJRUH0A) POC TCO2 ARTERIAL (test code = 24.3 POCTCO2) POC ARTERIAL BLOOD GAS PO2 (test 63.9 mmHg 80-100.0 L code = LFPIP7U) POC HCO3 ARTERIAL (test code = 23.1 MMOL/L 22.0-26.0 N EFNODM3X) POC BASE EXCESS (test code = -2.2 MMOL/L -4.0-4.0 N POCBEA) POC O2 SATURATION (test code = 92.5 % 90-100 N POCO2S) ABG DELIVERY (test code = AUSTIN) HFNC ABG TEMPERATURE (test code = 97.4 F TEMPA) ABG SITE (test code = SITEA) Art Line BASIC METABOLIC [id number] 11:15:00 Test Item Value Reference Range Interpretation [...] = POCGLU) 257 MG/DL 70-110 H HEMOGLOBIN [id number] 11:15:00 Test Item Value Reference Range Interpretation Comments HEMOGLOBIN ABG (test code = HGB/ABG) 5.8 G/DL 12.5-16.9 L [id number] 11:15:00 Test Item Value Reference Range Interpretation Comments HEMATOCRIT (test code = HCT/ABG) 17 % 37.5-50.7 L POC LACTIC [id number] 11:15:00 Test Item Value Reference Range Interpretation Comments POC LACTIC ACID (test code = 1.5 mmol/l 0.9-1.7 N POCLAC) GLUCOSE [id number] 08:58:00 Test Item Value Reference Range Interpretation Comments GLUCOSE BEDSIDE (test 96 MG/DL 70-110 N [facility] med by certified code = GLUBED) 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 [facility] CBC W/AUTO [id number] 08:22:00 Test Item Value Reference Range Interpretation Comments WHITE BLOOD CELL (test 10.9 x10 3/uL 4.5-11.0 N code = WBC) RED BLOOD CELL (test 2.05 x10 6/uL 4.00-5.60 L code = RBC) HEMOGLOBIN (test code 6.1 g/dL 12.5-16.9 LL Critic al result = HGB) called to CASTOR LUTZ RN by G.LAB.RE at 082 1 03/27/22Nmari stein back resut and tech confirmed it's [...] NO (test code = MDIFF) HEPATIC FUNCTION [id number] 06:47:00 Test Item Value Reference Range Interpretation [...] 20-125 N code = ALKP) COMMENTS: POD #[id number] 06:47:00 Test Item Value Reference Range Interpretation Comments MAGNESIUM (test code = MAG) 2.25 mg/dL 1.80-2.40 N COMMENTS: POD #1BASIC METABOLIC [id number] 06:45:00 Test Item Value Reference Range Interpretation [...] code = 9.3 mg/dL 8.0-10.5 N CA) [id number] 06:45:00 Test Item Value Reference Range Interpretation Comments PHOSPHOROUS (test code = PHOS) 3.9 MG/DL 2.5-4.9 N [id number] 06:45:00 Test Item Value Reference Range Interpretation Comments MAGNESIUM (test code = MAG) 2.23 mg/dL 1.80-2.40 N CALCIUM [id number] 06:45:00 Test Item Value Reference Range Interpretation Comments CALCIUM IONIZED (test code = JULIO) 1.27 MMOL/L 1.09-1.30 N POC ARTERIAL BLOOD [id number] 06:35:00 Test Item Value Reference Range Interpretation Comments POC ARTERIAL BLOOD GAS PH (test 7.361 7.35-7.45 N code = POCPHA) POC ARTERIAL BLOOD GAS PCO2 (test 43.0 mmHg 35.0-45 N code = ICNFFY7U) POC TCO2 ARTERIAL (test code = 25.6 POCTCO2) POC ARTERIAL BLOOD GAS PO2 (test 111.7 mmHg 80-100.0 H code = RPEXQ7K) POC HCO3 ARTERIAL (test code = 24.3 MMOL/L 22.0-26.0 N POKFKG2E) POC BASE EXCESS (test code = -1.1 MMOL/L -4.0-4.0 N POCBEA) POC O2 SATURATION (test code = 98.2 % 90-100 N POCO2S) ABG DELIVERY (test code = AUSTIN) Cannula ABG SITE (test code = SITEA) Art Line BASIC METABOLIC [id number] 06:35:00 Test Item Value Reference Range Interpretation [...] = POCGLU) 136 MG/DL 70-110 H HEMOGLOBIN [id number] 06:35:00 Test Item Value Reference Range Interpretation Comments HEMOGLOBIN ABG (test code = HGB/ABG) 7.0 G/DL 12.5-16.9 L [id number] 06:35:00 Test Item Value Reference Range Interpretation Comments HEMATOCRIT (test code = HCT/ABG) 21 % 37.5-50.7 L POC LACTIC [id number] 06:35:00 Test Item Value Reference Range Interpretation Comments POC LACTIC ACID (test code = 1.2 mmol/l 0.9-1.7 N POCLAC) GLUCOSE [id number] 05:11:00 Test Item Value Reference Range Interpretation Comments GLUCOSE BEDSIDE (test 92 MG/DL 70-110 N Perfor med by certified code = GLUBED) 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 CREATININE (test 3.3 mg/dL 0.6-1.3 H code = CREAT) CALCIUM (test code = 9.5 mg/dL 8.0-10.5 N CA) [id number] 01:07:00 Test Item Value Reference Range Interpretation Comments PHOSPHOROUS (test code = PHOS) 3.2 MG/DL 2.5-4.9 N [id number] 01:07:00 Test Item Value Reference Range Interpretation Comments MAGNESIUM (test code = MAG) 2.11 mg/dL 1.80-2.40 N CALCIUM [id number] 01:07:00 Test Item Value Reference Range Interpretation Comments CALCIUM IONIZED (test code = JULIO) 1.28 MMOL/L 1.09-1.30 N POC ARTERIAL BLOOD [id number] 00:40:00 Test Item Value Reference Range Interpretation Comments POC ARTERIAL BLOOD GAS PH (test 7.427 7.35-7.45 N code = POCPHA) POC ARTERIAL BLOOD GAS PCO2 (test 39.0 mmHg 35.0-45 N code = CQPYXQ1D) POC TCO2 ARTERIAL (test code = 26.9 POCTCO2) POC ARTERIAL BLOOD GAS PO2 (test 122.5 mmHg 80-100.0 H code = QOIJQ4F) POC HCO3 ARTERIAL (test code = 25.7 MMOL/L 22.0-26.0 N LPFSBT3M) POC BASE EXCESS (test code = 1.3 MMOL/L -4.0-4.0 N POCBEA) POC O2 SATURATION (test code = 98.8 % 90-100 N POCO2S) ABG DELIVERY (test code = AUST[place]) Cannula ABG TEMPERATURE (test code = 98.8 F TEMPA) ABG SITE (test code = SITEA) Art Line BASIC METABOLIC [id number] 00:40:00 Test Item Value Reference Range Interpretation [...] = POCGLU) 114 MG/DL 70-110 H HEMOGLOBIN [id number] 00:40:00 Test Item Value Reference Range Interpretation Comments HEMOGLOBIN ABG (test code = HGB/ABG) 6.9 G/DL 12.5-16.9 L [id number] 00:40:00 Test Item Value Reference Range Interpretation Comments HEMATOCRIT (test code = HCT/ABG) 20 % 37.5-50.7 L POC LACTIC [id number] 00:40:00 Test Item Value Reference Range Interpretation Comments POC LACTIC ACID (test code = 1.2 mmol/l 0.9-1.7 N POCLAC) - XR CHEST 1 [id number] 00:00:00 [facility] 1975 Sex: M FAX: Nash Yin [phone] [place]: St: ADM FAX: Bill Arteaga MD [phone] FAX: Nithin Rowan MD [phone] Name: KALIMARTY [facility] : 1975 Age/S: 46/M [address] [place] [address] Unit #: [id number] Loc: G.2208 [place] [address] Phys: Nash Kemp MD Acct: [id number] Dis Date: Status: ADM IN PHONE #: [phone] Exam Date: 03/27/2022 0645 FAX #: [phone] Reason: Cardiac Surgery Post Op EXAMS: CPT CODE: [id number] XR CHEST 1 V 48627 PROCEDURE INFORMATION: Exam: XR Chest Exam date and time: 03/27/2022 5:17 AM Age: 46 years old Clinical indication: Other: Cardiac surgery post op TECHNIQUE: Imaging protocol: Radiologic exam of the chest. Views: 1 view. COMPARISON: CR XR CHEST 1V 03/26/2022 5:10 AM FINDINGS: Tubes, catheters and devices: Stable lines and tubes. Lungs: The bilateral lung opacities are grossly stable. Pleural spaces: Small left pleural effusion could be present.Small left pneumothorax involves less than 10% volume. Heart/Mediastinum: The enlarged heart size is stable. Bones/joints: Stable. Median sternotomy wires. IMPRESSION: 1. Small left pneumothorax involves less than 10% volume. Stable left chest tube. 2. Grossly stable lung opacities. ElectronicallySigned by Jae Nixon on 03/27/2022 at 0737 Reported and signed by: Roger Nixon M.D. 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 CREATININE (test 3.5 mg/dL 0.6-1.3 H code = CREAT) CALCIUM (test code = 9.3 mg/dL 8.0-10.5 N CA) [id number] 18:48:00 Test Item Value Reference Range Interpretation Comments PHOSPHOROUS (test code = PHOS) 3.4 MG/DL 2.5-4.9 N [id number] 18:48:00 Test Item Value Reference Range Interpretation Comments MAGNESIUM (test code = MAG) 2.30 mg/dL 1.80-2.40 N CALCIUM [id number] 18:48:00 Test Item Value Reference Range Interpretation Comments CALCIUM IONIZED (test code = JULIO) 1.29 MMOL/L 1.09-1.30 N POC ARTERIAL BLOOD [id number] 18:30:00 Test Item Value Reference Range Interpretation Comments POC ARTERIAL BLOOD GAS PH (test 7.410 7.35-7.45 N code = POCPHA) POC ARTERIAL BLOOD GAS PCO2 (test 39.7 mmHg 35.0-45 N code = BWPLBM0P) POC TCO2 ARTERIAL (test code = 26.4 POCTCO2) POC ARTERIAL BLOOD GAS PO2 (test 164.0 mmHg 80-100.0 H code = AWRPX2I) POC HCO3 ARTERIAL (test code = 25.2 MMOL/L 22.0-26.0 N ZKHUQT4M) POC BASE EXCESS (test code = 0.5 MMOL/L -4.0-4.0 N POCBEA) POC O2 SATURATION (test code = 99.5 % 90-100 N POCO2S) ABG DELIVERY (test code = AUSTIN) HFNC ABG TEMPERATURE (test code = 98.6 F TEMPA) ABG SITE (test code = SITEA) Art Line BASIC METABOLIC [id number] 18:30:00 Test Item Value Reference Range Interpretation [...] = POCGLU) 127 MG/DL 70-110 H HEMOGLOBIN [id number] 18:30:00 Test Item Value Reference Range Interpretation Comments HEMOGLOBIN ABG (test code = HGB/ABG) 6.7 G/DL 12.5-16.9 L [id number] 18:30:00 Test Item Value Reference Range Interpretation Comments HEMATOCRIT (test code = HCT/ABG) 20 % 37.5-50.7 L POC LACTIC [id number] 18:30:00 Test Item Value Reference Range Interpretation Comments POC LACTIC ACID (test code = 1.6 mmol/l 0.9-1.7 N POCLAC) GLUCOSE [id number] 16:38:00 Test Item Value Reference Range Interpretation Comments GLUCOSE BEDSIDE (test 101 MG/DL 70-110 N Perfor med by certified code = GLUBED) 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 [facility] BASIC METABOLIC [id number] 14:38:00 Test Item Value Reference Range Interpretation [...] code = 9.5 mg/dL 8.0-10.5 N CA) [id number] 14:38:00 Test Item Value Reference Range Interpretation Comments PHOSPHOROUS (test code = PHOS) 3.5 MG/DL 2.5-4.9 N [id number] 14:38:00 Test Item Value Reference Range Interpretation Comments MAGNESIUM (test code = MAG) 2.14 mg/dL 1.80-2.40 N CALCIUM [id number] 14:38:00 Test Item Value Reference Range Interpretation Comments CALCIUM IONIZED (test code = JULIO) 1.28 MMOL/L 1.09-1.30 N GLUCOSE [id number] 14:19:00 Test Item Value Reference Range Interpretation Comments GLUCOSE BEDSIDE (test 135 MG/DL 70-110 H Perfor med by certified code = GLUBED) 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 [facility] POC ARTERIAL BLOOD [id number] 11:23:00 Test Item Value Reference Range Interpretation Comments POC ARTERIAL BLOOD GAS PH (test 7.386 7.35-7.45 N code = POCPHA) POC ARTERIAL BLOOD GAS PCO2 (test 38.8 mmHg 35.0-45 N code = JTFGMG1G) POC TCO2 ARTERIAL (test code = 24.5 POCTCO2) POC ARTERIAL BLOOD GAS PO2 (test 232.0 mmHg 80-100.0 HH code = OEBGA3W) POC HCO3 ARTERIAL (test code = 23.3 MMOL/L 22.0-26.0 N BWBJML4N) POC BASE EXCESS (test code = -1.7 MMOL/L -4.0-4.0 N POCBEA) POC O2 SATURATION (test code = 99.8 % 90-100 N POCO2S) ABG DELIVERY (test code = AUSTIN) Cannula ABG SITE (test code = SITEA) Art Line BASIC METABOLIC [id number] 11:23:00 Test Item Value Reference Range Interpretation [...] = POCGLU) 130 MG/DL 70-110 H HEMOGLOBIN [id number] 11:23:00 Test Item Value Reference Range Interpretation Comments HEMOGLOBIN ABG (test code = HGB/ABG) 6.9 G/DL 12.5-16.9 L [id number] 11:23:00 Test Item Value Reference Range Interpretation Comments HEMATOCRIT (test code = HCT/ABG) 20 % 37.5-50.7 L POC LACTIC [id number] 11:23:00 Test Item Value Reference Range Interpretation Comments POC LACTIC ACID (test code = 1.2 mmol/l 0.9-1.7 N POCLAC) GLUCOSE [id number] 11:10:00 Test Item Value Reference Range Interpretation Comments GLUCOSE BEDSIDE (test 105 MG/DL 70-110 N Perfor med by certified code = GLUBED) 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 code = HAVMAB) AG HEPATITIS B SURFACE NON REACTIVE INDEX NonReactive (test code = HBSAG) AB HEPATITIS B CORE IGM NON REACTIVE INDEX NON REACT. (test code = HBCMAB) AB HEPATITIS C (test code NON REACTIVE INDEX NON REACT. = HCVAB) AB HEPATITIS B [id number] 09:13:00 Test Item Value Reference Range Interpretation Comments AB HEPATITIS B 437.5 mIU/mL See_Comment Status of Im munity SURFACE (test code = Anti-HB s Level HBSAB) --- I nconsi stent with Immu nity 0.0 - 9.9Consis tent with Immunity >9.9Performed A t: HD [facility] [address] [id number] Richard Ogden MD Ph:[phone] [Automated mess age] The system [employer] generated this result transmitted ref erence range: Immunity >9.9. The reference r akhil was not used to interpret this result as normal/abnor mal. POC ARTERIAL BLOOD [id number] 06:50:00 Test Item Value Reference Range Interpretation Comments POC ARTERIAL BLOOD GAS PH (test 7.369 7.35-7.45 N code = POCPHA) POC ARTERIAL BLOOD GAS PCO2 (test 44.6 mmHg 35.0-45 N code = [id number]) POC TCO2 ARTERIAL (test code = 27.2 POCTCO2) POC ARTERIAL BLOOD GAS PO2 (test 199.8 mmHg 80-100.0 H code = [id number]) POC HCO3 ARTERIAL (test code = 25.8 MMOL/L 22.0-26.0 N [id number]) POC BASE EXCESS (test code = 0.4 MMOL/L -4.0-4.0 N POCBEA) POC O2 SATURATION (test code = 99.7 % 90-100 N POCO2S) ABG DELIVERY (test code = [place]) Cannula ABG TEMPERATURE (test code = 97.9 F TEMPA) ABG SITE (test code = SITEA) Art Line BASIC METABOLIC [id number] 06:50:00 Test Item Value Reference Range Interpretation [...] = POCGLU) 125 MG/DL 70-110 H HEMOGLOBIN [id number] 06:50:00 Test Item Value Reference Range Interpretation Comments HEMOGLOBIN ABG (test code = HGB/ABG) 6.7 G/DL 12.5-16.9 L [id number] 06:50:00 Test Item Value Reference Range Interpretation Comments HEMATOCRIT (test code = HCT/ABG) 20 % 37.5-50.7 L POC LACTIC [id number] 06:50:00 Test Item Value Reference Range Interpretation Comments POC LACTIC ACID (test code = 0.8 mmol/l 0.9-1.7 L POCLAC) BASIC METABOLIC [id number] 05:02:00 Test Item Value Reference Range Interpretation [...] the recommended for piero for GFRby the [facility] for Adults.The GFR will not calculate if th e sex is unknown or if thepatient's ag e is <18 years. CREATININE (test 4.8 mg/dL 0.6-1.3 H code = CREAT) CALCIUM (test code = 9.6 mg/dL 8.0-10.5 N CA) COMMENTS: POD #1COMMENTS: For monitoring while on sevelamerHEPATIC FUNCTION [id number] 05:02:00 Test Item Value Reference Range Interpretation [...] COMMENTS: POD #1COMMENTS: For monitoring while on [id number] 05:02:00 Test Item Value Reference Range Interpretation Comments PHOSPHOROUS (test code = PHOS) 3.5 MG/DL 2.5-4.9 N COMMENTS: POD #1COMMENTS: For monitoring while on [id number] 05:02:00 Test Item Value Reference Range Interpretation Comments MAGNESIUM (test code = MAG) 2.21 mg/dL 1.80-2.40 N COMMENTS: POD #1COMMENTS: For monitoring while on sevelamerGLUCOSE BEDSIDE 2022-03-26 04:50:00 Test Item Value Reference Range Interpretation Comments GLUCOSE BEDSIDE (test 100 MG/DL 70-110 N Perfor med by certified code = GLUBED) 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 [facility] CBC W/AUTO [id number] 04:43:00 Test Item Value Reference Range Interpretation [...] REQUIRED (test NO code = MDIFF) GLUCOSE [id number] 03:10:00 Test Item Value Reference Range Interpretation Comments GLUCOSE BEDSIDE (test 87 MG/DL 70-110 N Perfor med by certified code = GLUBED) 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 [facility] POC ARTERIAL BLOOD [id number] 03:08:00 Test Item Value Reference Range Interpretation Comments POC ARTERIAL BLOOD GAS PH (test 7.392 7.35-7.45 N code = POCPHA) POC ARTERIAL BLOOD GAS PCO2 (test 38.1 mmHg 35.0-45 N code = HIJWIH5Y) POC TCO2 ARTERIAL (test code = 24.6 POCTCO2) POC ARTERIAL BLOOD GAS PO2 (test 65.1 mmHg 80-100.0 L code = CIPKU2S) POC HCO3 ARTERIAL (test code = 23.4 MMOL/L 22.0-26.0 N KVCKYH1E) POC BASE EXCESS (test code = -1.8 MMOL/L -4.0-4.0 N POCBEA) POC O2 SATURATION (test code = 93.1 % 90-100 N POCO2S) ABG DELIVERY (test code = AUSTIN) Cannula ABG TEMPERATURE (test code = 97.2 F TEMPA) ABG SITE (test code = SITEA) Art Line BASIC METABOLIC [id number] 03:08:00 Test Item Value Reference Range Interpretation [...] = POCGLU) 88 MG/DL 70-110 N HEMOGLOBIN [id number] 03:08:00 Test Item Value Reference Range Interpretation Comments HEMOGLOBIN ABG (test code = HGB/ABG) 7.1 G/DL 12.5-16.9 L [id number] 03:08:00 Test Item Value Reference Range Interpretation Comments HEMATOCRIT (test code = HCT/ABG) 21 % 37.5-50.7 L POC LACTIC [id number] 03:08:00 Test Item Value Reference Range Interpretation Comments POC LACTIC ACID (test code = 1.4 mmol/l 0.9-1.7 N POCLAC) POC IONIZED [id number] 01:20:00 Test Item Value Reference Range Interpretation Comments POC IONIZED CALCIUM (test code = 1.27 MMOL/L 1.12-1.32 N POCCA) HGB [id number] 01:13:00 Test Item Value Reference Range Interpretation Comments HEMOGLOBIN (test code = HGB) 6.9 g/dL 12.5-16.9 L HEMATOCRIT (test code = HCT) 21.7 % 37.5-50.7 L BASIC METABOLIC [id number] 00:53:00 Test Item Value Reference Range Interpretation [...] the recommended for piero for GFRby the [facility] for Adults.The GFR will not calculate if th e sex is unknown or if thepatient's ag e is <18 years. CREATININE (test 5.3 mg/dL 0.6-1.3 H code = CREAT) CALCIUM (test code = 9.1 mg/dL 8.0-10.5 N CA) [id number] 00:53:00 Test Item Value Reference Range Interpretation Comments PHOSPHOROUS (test code = PHOS) 3.3 MG/DL 2.5-4.9 N [id number] 00:53:00 Test Item Value Reference Range Interpretation Comments MAGNESIUM (test code = MAG) 2.08 mg/dL 1.80-2.40 N POC ARTERIAL BLOOD [id number] 00:33:00 Test Item Value Reference Range Interpretation Comments POC ARTERIAL BLOOD GAS PH (test 7.392 7.35-7.45 N code = POCPHA) POC ARTERIAL BLOOD GAS PCO2 (test 40.7 mmHg 35.0-45 N code = TIKVFU9K) POC TCO2 ARTERIAL (test code = 26.1 POCTCO2) POC ARTERIAL BLOOD GAS PO2 (test 62.3 mmHg 80-100.0 L code = FNPTF8J) POC HCO3 ARTERIAL (test code = 24.8 MMOL/L 22.0-26.0 N [id number]) POC BASE EXCESS (test code = -0.2 MMOL/L -4.0-4.0 N POCBEA) POC O2 SATURATION (test code = 91.7 % 90-100 N POCO2S) ABG DELIVERY (test code = AUSTIN) Cannula ABG TEMPERATURE (test code = 97.9 F TEMPA) ABG SITE (test code = SITEA) Art Line BASIC METABOLIC [id number] 00:33:00 Test Item Value Reference Range Interpretation [...] = POCGLU) 125 MG/DL 70-110 H HEMOGLOBIN [id number] 00:33:00 Test Item Value Reference Range Interpretation Comments HEMOGLOBIN ABG (test code = HGB/ABG) 7.3 G/DL 12.5-16.9 L [id number] 00:33:00 Test Item Value Reference Range Interpretation Comments HEMATOCRIT (test code = HCT/ABG) 21 % 37.5-50.7 L POC LACTIC [id number] 00:33:00 Test Item Value Reference Range Interpretation Comments POC LACTIC ACID (test code = 1.2 mmol/l 0.9-1.7 N POCLAC) - XR CHEST 1 [id number] 00:00:00 [facility] 1975 Sex: M FAX: Nash Yin [phone] [place]: St: ADM FAX: Bill Arteaga MD [phone] FAX: Nithin Rowan MD [phone] Name: KANE BASSS [facility] : 1975 Age/S: 46/M [address] [place] [address] Unit #: [id number] Loc: G.[address] [place] [address] Phys: Nash Kemp MD Acct: [id number] Dis Date: Status: ADM IN PHONE #: [phone] Exam Date: 03/26/2022627 FAX #: [phone] Reason: Cardiac Surg divine Post Op EXAMS: CPT CODE: [id number] XR CHEST 1 V 01150 PROCEDURE INFORMATION: Exam: XR Chest Exam date and time: 03/26/2022 5:10 AM Age: 46 years old Clinical indication: Other: Cardiac surgery postop TECHNIQUE: Imaging protocol: Radiologic exam of the chest. Views: 1 view. COMPARISON: CR XR CHEST 1V 03/25/2022 3:39 PM FINDINGS: Tubes, catheters and devices: Removal of the ET tube. Other lines andtubes are stable. Lungs: Bilateral lung opacities are again noted, slightly improved in the right infrahilar region. Pleural spaces: Question small left pleural effusion. No pneumothorax. Heart/Mediastinum: The enlarged heart size is stable. Bones/joints: Stable. Median sternotomy wires. IMPRESSION: 1. Mildly improved right infrahilar opacities. 2. Removal of the ET tube. at 0751 Reported and signed by: Roger Nixon M.D. 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 [facility] POC ARTERIAL BLOOD [id number] 21:00:00 Test Item Value Reference Range Interpretation Comments POC ARTERIAL BLOOD GAS PH (test 7.334 7.35-7.45 L code = POCPHA) POC ARTERIAL BLOOD GAS PCO2 (test 43.4 mmHg 35.0-45 N code = LPLOFB1W) POC TCO2 ARTERIAL (test code = 24.7 POCTCO2) POC ARTERIAL BLOOD GAS PO2 (test 55.5 mmHg 80-100.0 L code = KBDQR4X) POC HCO3 ARTERIAL (test code = 23.4 MMOL/L 22.0-26.0 N DNSLCI5D) POC BASE EXCESS (test code = -2.7 MMOL/L -4.0-4.0 N POCBEA) POC O2 SATURATION (test code = 87.8 % 90-100 L POCO2S) ABG DELIVERY (test code = AUSTIN) Cannula ABG TEMPERATURE (test code = 97 F TEMPA) ABG SITE (test code = SITEA) Art Line BASIC METABOLIC [id number] 21:00:00 Test Item Value Reference Range Interpretation [...] = POCGLU) 214 MG/DL 70-110 H HEMOGLOBIN [id number] 21:00:00 Test Item Value Reference Range Interpretation Comments HEMOGLOBIN ABG (test code = HGB/ABG) 8.1 G/DL 12.5-16.9 L [id number] 21:00:00 Test Item Value Reference Range Interpretation Comments HEMATOCRIT (test code = HCT/ABG) 24 % 37.5-50.7 L POC LACTIC [id number] 21:00:00 Test Item Value Reference Range Interpretation Comments POC LACTIC ACID (test code = 2.0 mmol/l 0.9-1.7 H POCLAC) GLUCOSE [id number] 20:57:00 Test Item Value Reference Range Interpretation Comments GLUCOSE BEDSIDE (test 192 MG/DL 70-110 H Perfor med by certified code = GLUBED) 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 [facility] CBC W/AUTO [id number] 20:09:00 Test Item Value Reference Range Interpretation [...] NO code = MDIFF) POC ARTERIAL BLOOD [id number] 18:38:00 Test Item Value Reference Range Interpretation Comments POC ARTERIAL BLOOD GAS PH (test 7.420 7.35-7.45 N code = POCPHA) POC ARTERIAL BLOOD GAS PCO2 37.0 mmHg 35.0-45 N (test code = PDIIMR4U) POC TCO2 ARTERIAL (test code = 25.1 POCTCO2) POC ARTERIAL BLOOD GAS PO2 (test 305.3 mmHg 80-100.0 HH code = UEOEP2Q) POC HCO3 ARTERIAL (test code = 24.0 MMOL/L 22.0-26.0 N DZMPBC6L) POC BASE EXCESS (test code = -0.5 MMOL/L -4.0-4.0 N POCBEA) POC O2 SATURATION (test code = 99.9 % 90-100 N POCO2S) FIO2 (test code = FIO2A) 70 % PaO2/FiO2 (test code = [id number]) 436.14 mm/Hg ABG DELIVERY (test code = AUSTIN) Adult Vent ABG VENT MODE (test code = AC MODEA) ABG SITE (test code = SITEA) Art Line ROXY'S TEST (test code = N/A ALLENS) BASIC METABOLIC [id number] 18:38:00 Test Item Value Reference Range Interpretation [...] = POCGLU) 86 MG/DL 70-110 N HEMOGLOBIN [id number] 18:38:00 Test Item Value Reference Range Interpretation Comments HEMOGLOBIN ABG (test code = HGB/ABG) 7.7 G/DL 12.5-16.9 L [id number] 18:38:00 Test Item Value Reference Range Interpretation Comments HEMATOCRIT (test code = HCT/ABG) 23 % 37.5-50.7 L POC LACTIC [id number] 18:38:00 Test Item Value Reference Range Interpretation Comments POC LACTIC ACID (test code = 0.4 mmol/l 0.9-1.7 L POCLAC) BASIC METABOLIC [id number] 18:29:00 Test Item Value Reference Range Interpretation [...] code = 9.0 mg/dL 8.0-10.5 N CA) [id number] 18:29:00 Test Item Value Reference Range Interpretation Comments MAGNESIUM (test code = MAG) 2.42 mg/dL 1.80-2.40 H B-TYPE NATRIURETIC [id number] 18:22:00 Test Item Value Reference Range Interpretation Comments B-TYPE NATRIURETIC PEPTIDE (test 898.0 PG/ML 0-100 H code = BNP) GLUCOSE [id number] 17:23:00 Test Item Value Reference Range Interpretation Comments GLUCOSE BEDSIDE (test 75 MG/DL 70-110 N Perfor med by certified code = GLUBED) 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 [facility] GLUCOSE [id number] 16:44:00 Test Item Value Reference Range Interpretation Comments GLUCOSE BEDSIDE (test 96 MG/DL 70-110 N Perfor med by certified code = GLUBED) 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 CREATININE (test 7.0 mg/dL 0.6-1.3 H code = CREAT) CALCIUM (test code = 8.6 mg/dL 8.0-10.5 N CA) COMMENTS: On [id number] 15:28:00 Test Item Value Reference Range Interpretation Comments MAGNESIUM (test code = MAG) 2.38 mg/dL 1.80-2.40 N COMMENTS: On arrivalLACTIC [id number] 15:20:00 Test Item Value Reference Range Interpretation Comments LACTIC ACID (test code = LACT) 2.0 mmol/L 0.4-1.9 H PROTHROMBIN [id number] 15:20:00 Test Item Value Reference Range Interpretation [...] recurrent infar ct). COMMENTS: On arrivalTHROMBOPLASTIN TIME [id number] 15:20:00 Test Item Value Reference Range Interpretation Comments THROMBOPLASTIN TIME 31.3 Seconds 25.0-39.5 N Therape utic Range: PARTIAL (test code = 50.4 - 88.3 Seconds PTT) Effective 06/30/2018 COMMENTS: On arrivalCBC W/AUTO [id number] 15:13:00 Test Item Value Reference Range Interpretation [...] (test NO code = MDIFF) COMMENTS: [facility] [id number] 14:56:00 Test Item Value Reference Range Interpretation Comments POC ARTERIAL BLOOD GAS PH (test 7.322 7.35-7.45 L code = POCPHA) POC ARTERIAL BLOOD GAS PCO2 (test 48.5 mmHg 35.0-45 H code = ATIUYE2Q) POC TCO2 ARTERIAL (test code = 26.6 POCTCO2) POC ARTERIAL BLOOD GAS PO2 (test 98.9 mmHg 80-100.0 N code = HNZXK8J) POC HCO3 ARTERIAL (test code = 25.1 MMOL/L 22.0-26.0 N WKZTHQ3X) POC BASE EXCESS (test code = -1.0 MMOL/L -4.0-4.0 N POCBEA) POC O2 SATURATION (test code = 97.0 % 90-100 N POCO2S) FIO2 (test code = FIO2A) 100 % PaO2/FiO2 (test code = OMJ3FUZ0) 98.90 mm/Hg ABG DELIVERY (test code = AUSTIN) Adult Vent ABG VENT MODE (test code = MODEA) AC ABG VENT RESP RATE (test code = 16 /MIN RRA) ABG TIDAL VOLUME (test code = 500 ml TVA) ABG PEEP (test code = PEEPA) 5 cmH2O ABG SITE (test code = SITEA) Art Line BASIC METABOLIC [id number] 14:56:00 Test Item Value Reference Range Interpretation [...] = POCGLU) 201 MG/DL 70-110 H HEMOGLOBIN [id number] 14:56:00 Test Item Value Reference Range Interpretation Comments HEMOGLOBIN ABG (test code = HGB/ABG) 8.2 G/DL 12.5-16.9 L [id number] 14:56:00 Test Item Value Reference Range Interpretation Comments HEMATOCRIT (test code = HCT/ABG) 24 % 37.5-50.7 L POC LACTIC [id number] 14:56:00 Test Item Value Reference Range Interpretation Comments POC LACTIC ACID (test code = 1.9 mmol/l 0.9-1.7 H POCLAC) POC ARTERIAL BLOOD [id number] 14:12:00 Test Item Value Reference Range Interpretation Comments POC ARTERIAL BLOOD GAS PH (test 7.397 7.35-7.45 N code = POCPHA) POC ARTERIAL BLOOD GAS PCO2 (test 38.4 mmHg 35.0-45 N code = VMIPTM9Q) POC TCO2 ARTERIAL (test code = 24.8 POCTCO2) POC ARTERIAL BLOOD GAS PO2 (test 499.7 mmHg 80-100.0 HH code = SUSWA4O) POC HCO3 ARTERIAL (test code = 23.6 MMOL/L 22.0-26.0 N RABIJJ7E) POC BASE EXCESS (test code = -1.1 MMOL/L -4.0-4.0 N POCBEA) POC O2 SATURATION (test code = 100.0 % 90-100 N POCO2S) BASIC METABOLIC [id number] 14:12:00 Test Item Value Reference Range Interpretation [...] = POCGLU) 208 MG/DL 70-110 H HEMOGLOBIN [id number] 14:12:00 Test Item Value Reference Range Interpretation Comments HEMOGLOBIN ABG (test code = HGB/ABG) 8.2 G/DL 12.5-16.9 L [id number] 14:12:00 Test Item Value Reference Range Interpretation Comments HEMATOCRIT (test code = HCT/ABG) 24 % 37.5-50.7 L POC LACTIC [id number] 14:12:00 Test Item Value Reference Range Interpretation Comments POC LACTIC ACID (test code = 3.0 mmol/l 0.9-1.7 H POCLAC) [id number] 14:00:00 Test Item Value Reference Range Interpretation Comments ACT-ISTAT (test code 137 SEC 74-137 N Perform ed by certified = ACTI) 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 [facility] [id number] 13:17:00 Test Item Value Reference Range Interpretation Comments ACT-ISTAT (test code 576 SEC 74-137 H Perform ed by certified = ACTI) 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 [facility] POC ARTERIAL BLOOD [id number] 13:04:00 Test Item Value Reference Range Interpretation Comments POC ARTERIAL BLOOD GAS PH (test 7.431 7.35-7.45 N code = POCPHA) POC ARTERIAL BLOOD GAS PCO2 (test 40.3 mmHg 35.0-45 N code = OMZALV2B) POC TCO2 ARTERIAL (test code = 28.0 POCTCO2) POC ARTERIAL BLOOD GAS PO2 (test 339.1 mmHg 80-100.0 HH code = WIGAZ2R) POC HCO3 ARTERIAL (test code = 26.8 MMOL/L 22.0-26.0 H FRDFUT1I) POC BASE EXCESS (test code = 2.3 MMOL/L -4.0-4.0 N POCBEA) POC O2 SATURATION (test code = 99.9 % 90-100 N POCO2S) BASIC METABOLIC [id number] 13:04:00 Test Item Value Reference Range Interpretation [...] = POCGLU) 169 MG/DL 70-110 H HEMOGLOBIN [id number] 13:04:00 Test Item Value Reference Range Interpretation Comments HEMOGLOBIN ABG (test code = HGB/ABG) 8.9 G/DL 12.5-16.9 L [id number] 13:04:00 Test Item Value Reference Range Interpretation Comments HEMATOCRIT (test code = HCT/ABG) 26 % 37.5-50.7 L POC LACTIC [id number] 13:04:00 Test Item Value Reference Range Interpretation Comments POC LACTIC ACID (test code = 2.0 mmol/l 0.9-1.7 H POCLAC) [id number] 12:53:00 Test Item Value Reference Range Interpretation Comments ACT-ISTAT (test code 997 SEC 74-137 H Perform ed by certified = ACTI) 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 [facility] [id number] 12:53:00 Test Item Value Reference Range Interpretation Comments ACT-ISTAT (test code 690 SEC 74-137 H Perform ed by certified = ACTI) 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 [facility] POC ARTERIAL BLOOD [id number] 12:35:00 Test Item Value Reference Range Interpretation Comments POC ARTERIAL BLOOD GAS PH (test 7.507 7.35-7.45 HH code = POCPHA) POC ARTERIAL BLOOD GAS PCO2 (test 34.5 mmHg 35.0-45 L code = NJFPPY9J) POC TCO2 ARTERIAL (test code = 28.4 POCTCO2) POC ARTERIAL BLOOD GAS PO2 (test 565.7 mmHg 80-100.0 HH code = APTVA0A) POC HCO3 ARTERIAL (test code = 27.4 MMOL/L 22.0-26.0 H LTONHN1W) POC BASE EXCESS (test code = 4.0 MMOL/L -4.0-4.0 N POCBEA) POC O2 SATURATION (test code = 100.0 % 90-100 N POCO2S) BASIC METABOLIC [id number] 12:35:00 Test Item Value Reference Range Interpretation [...] = POCGLU) 127 MG/DL 70-110 H HEMOGLOBIN [id number] 12:35:00 Test Item Value Reference Range Interpretation Comments HEMOGLOBIN ABG (test code = HGB/ABG) 6.4 G/DL 12.5-16.9 L [id number] 12:35:00 Test Item Value Reference Range Interpretation Comments HEMATOCRIT (test code = HCT/ABG) 19 % 37.5-50.7 L POC LACTIC [id number] 12:35:00 Test Item Value Reference Range Interpretation Comments POC LACTIC ACID (test code = 1.7 mmol/l 0.9-1.7 N POCLAC) POC ARTERIAL BLOOD [id number] 12:17:00 Test Item Value Reference Range Interpretation Comments POC ARTERIAL BLOOD GAS PH (test 7.369 7.35-7.45 N code = POCPHA) POC ARTERIAL BLOOD GAS PCO2 (test 47.7 mmHg 35.0-45 H code = CCGNTX7Y) POC TCO2 ARTERIAL (test code = 29.0 POCTCO2) POC ARTERIAL BLOOD GAS PO2 (test 189.0 mmHg 80-100.0 H code = POECD9Q) POC HCO3 ARTERIAL (test code = 27.5 MMOL/L 22.0-26.0 H KZZCDK6L) POC BASE EXCESS (test code = 1.8 MMOL/L -4.0-4.0 N POCBEA) POC O2 SATURATION (test code = 99.6 % 90-100 N POCO2S) BASIC METABOLIC [id number] 12:17:00 Test Item Value Reference Range Interpretation [...] = POCGLU) 135 MG/DL 70-110 H HEMOGLOBIN [id number] 12:17:00 Test Item Value Reference Range Interpretation Comments HEMOGLOBIN ABG (test code = HGB/ABG) 9.3 G/DL 12.5-16.9 L [id number] 12:17:00 Test Item Value Reference Range Interpretation Comments HEMATOCRIT (test code = HCT/ABG) 27 % 37.5-50.7 L POC LACTIC [id number] 12:17:00 Test Item Value Reference Range Interpretation Comments POC LACTIC ACID (test code = 0.5 mmol/l 0.9-1.7 L POCLAC) POC ARTERIAL BLOOD [id number] 10:47:00 Test Item Value Reference Range Interpretation Comments POC ARTERIAL BLOOD GAS PH (test 7.441 7.35-7.45 N code = POCPHA) POC ARTERIAL BLOOD GAS PCO2 (test 33.6 mmHg 35.0-45 L code = NBEOAG3C) POC TCO2 ARTERIAL (test code = 23.9 POCTCO2) POC ARTERIAL BLOOD GAS PO2 (test 367.8 mmHg 80-100.0 HH code = LXGDJ5N) POC HCO3 ARTERIAL (test code = 22.9 MMOL/L 22.0-26.0 N NLVVKT1E) POC BASE EXCESS (test code = -0.9 MMOL/L -4.0-4.0 N POCBEA) POC O2 SATURATION (test code = 100.0 % 90-100 N POCO2S) BASIC METABOLIC [id number] 10:47:00 Test Item Value Reference Range Interpretation [...] = POCGLU) 122 MG/DL 70-110 H HEMOGLOBIN [id number] 10:47:00 Test Item Value Reference Range Interpretation Comments HEMOGLOBIN ABG (test code = 10.4 G/DL 12.5-16.9 L HGB/ABG) [id number] 10:47:00 Test Item Value Reference Range Interpretation Comments HEMATOCRIT (test code = HCT/ABG) 31 % 37.5-50.7 L POC LACTIC [id number] 10:47:00 Test Item Value Reference Range Interpretation Comments POC LACTIC ACID (test code = 0.5 mmol/l 0.9-1.7 L POCLAC) GLUCOSE [id number] 06:59:00 Test Item Value Reference Range Interpretation Comments GLUCOSE BEDSIDE (test 143 MG/DL 70-110 H Perfor med by certified code = GLUBED) 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 [facility] GLUCOSE [id number] 05:29:00 Test Item Value Reference Range Interpretation Comments GLUCOSE BEDSIDE (test 122 MG/DL 70-110 H Perfor med by certified code = GLUBED) 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 [facility] GLUCOSE [id number] 04:45:00 Test Item Value Reference Range Interpretation Comments GLUCOSE BEDSIDE (test 56 MG/DL 70-110 L Perfor med by certified code = GLUBED) 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 THROMBOPLASTIN TIME [id number] 04:19:00 Test Item Value Reference Range Interpretation Comments THROMBOPLASTIN TIME 38.7 Seconds 25.0-39.5 N Therape utic Range: PARTIAL (test code = 50.4 - 88.3 Seconds PTT) Effective 06/30/2018 - XR CHEST 1 [id number] 00:00[facility]00 [facility] 1975 Sex: M FAX: Nash Yin [phone] [place]: St: ADM FAX: Bill Arteaga MD [phone] FAX: Nithin Rowan MD [phone] Name: KALIKANES [facility] : 1975 Age/S: 46/M [address] [place] [address] Unit #: [id number] Loc: [address] [place] [address] Phys: Nash Kemp MD Acct: [id number] Dis Date: Status: ADM IN PHONE #: [phone] Exam Date: 03/25/2022 1620 FAX #: [phone] Reason: Cardiac Surgery Post Op EXAMS: CPT CODE: [id number] XR CHEST 1 V 55089 PROCEDURE INFORMATION: Exam: XR Chest Examdate and time: 03/25/2022 3:39 PM Age: 46 years old Clinical indication: Screening exam; Other screening; Patient HX: Cardiac surgery post op TECHNIQUE: Imaging protocol: Radiologic exam of the chest. Views: 1 view. COMPARISON: CT CHEST W/O CONTRAST 03/23/2022 3:52 PM FINDINGS: Tubes, catheters and devices: Patient intubated, tip of endotracheal tube 4.8 cm above rajan. Tip of right IJ venous catheter in the proximal SVC. Mediastinal drain and left [...] in differential in appropriate clinical setting. at 1730 Reported and signed by: Germán Lee M.D. 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 [facility] B-TYPE NATRIURETIC [id number] 13:33:00 Test Item Value Reference Range Interpretation Comments B-TYPE NATRIURETIC PEPTIDE (test 1313.0 PG/ML 0-100 H code = BNP) GLUCOSE [id number] 12:28:00 Test Item Value Reference Range Interpretation Comments GLUCOSE BEDSIDE (test 63 MG/DL 70-110 L Perfor med by certified code = GLUBED) 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 COVID 19 Asymptomatic IH [id number] 04:39:00 Test Item Value Reference Range Interpretation Comments COVID 19 Asymptomatic Negative Negative A nega tive result is IH AG (test code = presumpti ve and should COVNONPUIAG) be confirmedwit h an FDA authorized mole cular assay, if neces elsa forpatient nette gement.A positive result does not rule out co-inf ections withother patho gens.This test detects bonifacio th viable (live) and non-viable,SARS -CoV, and SARS-CoV-2. Hui t performance dep ends on theamount of vi becki (antigen) in th e sample.This hui t has not been FDA cleare d or approved; the t est hasbeen authori roger by FDA under an Em ergency Use Authorizati on(EUA) for use by labo ratories certified under the CLIA thatmeet the requirements to perform moderate, high or waivedcomplexit y tests. - US RETROPERITONEAL [id number] 00:00:00 [facility] 1975 Sex: M Name:MARTY BASS [facility] : 1975 Age/S: 46 / M [address] [place] [address] Bl Unit #: [id number] Loc: [place] [address] Phys: Bill Yeager MD Acct: [id number] Dis Date: Status: ADM IN PHONE #: [phone] Exam Date: 03/24/2022 1128 FAX #: [phone] Reason: possible renal cysts EXAMS: CPT CODE: [id number] US RETROPERITONEAL [facility] 17859 PROCEDURE INFORMATION: Exam: US Retroperitoneal; Complete; Kidneys and Bladder Exam date and time: 03/24/2022 10:37 AM Age: 46 years old Clinical indication: Abnormal findings; Abnormal radiologic finding of the abdomen; Radiologic exam and body structure: CTchest, renal cysts; Additional info: Possible renal cysts TECHNIQUE: Imaging protocol: Real-time ultrasound of the retroperitoneum with image documentation. Complete exam focused on the kidneys and bladder. COMPARISON: CT CHEST W/O CONTRAST 03/23/2022 3:52 PM FINDINGS: Right kidney: Right kidney 10.4 cm. Echogenic parenchyma with renal cortical thinning. No hydronephrosis. Multiple simple cysts requiring no further follow-up. Left kidney: Left kidney 9.4 cm. Echogenic parenchyma with renal cortical thickening. No hydronephrosis. Multiple simple cyst requiring no further follow-up. Urinary bladder: Unremarkable. IMPRESSION: 1. Medical renal disease. 2. Cholelithiasis. at 1231 Reported and signed by: Nba Webber M.D. CC: Bill Yeager MD; Nithin Chaudhry MD Technologist: Sophia Almaguer RDMS(AB)(OB) Trnscb Date/Time: 03/24/2022 (1231) [email or web address] Orig Print D/T: S: 03/24/2022 (1231) Probe: PAGE 1 Signed Report- DUP VEIN [id number] 00:00:00 [facility] 1975 Sex: M Name:MARTY BASS [facility] : 1975 Age/S: 46 / M [address] [place] [address] Unit #: [id number] Loc: [facility] [place] [address] Phys: Daisha Lucas Acct: [id number] Dis Date: Status: ADM IN PHONE #: [phone] Exam Date: 03/23/2022 1630 FAX #: [phone] Reason: Bilateral vein mapping EXAMS: CPT CODE: [id number] DUP VEIN SEB 64748 PROCEDURE INFORMATION: Exam: US Duplex Lower Extremity [...] is patent. Right greater saphenous vein-upper thigh: 18 mm Right greater saphenous vein-mid thigh: 13 mm Right greater saphenous vein-lower thigh: 17 mm Right greater saphenous vein-upper le mm Right greater saphenous vein-mid le mm Right greater saphenous vein-lower le mm Left superficial veins: Normal compressibility. Greater saphenous veinis patent. Left greater saphenous vein-upper thigh: 57 [...] Technologist: Asha Murcia RDMS(AB) Trnscb Date/Time: 03/24/2022 (0123) [email or web address] Orig Print D/T: S: 03/24/2022 (0124) Probe: PAGE 1 Signed Report- CT CHEST W/O [id number] 00:00:00 [facility] 1975 Sex: M Name:MARTY BASS [facility] : 1975 Age/S: 46 / M [address] [place] [address] Unit #: [id number] Loc: [place] [address] Phys: Daisha Lucas BELINDA Acct: [id number] Dis Date: Status: ADM IN PHONE #: [phone] Exam Date: 03/23/2022 1633 FAX #: [phone] Reason: CABG workup EXAMS: CPT CODE: [id number] CT CHEST W/O CONTRAST 22690 PROCEDURE INFORMATION: Exam: CT Chest Without Contrast; Diagnost ic Exam date and time: 03/23/2022 3:52 PM [...] COMPARISON: No relevant prior studies available. FINDINGS: Lungs: Ground-glass infiltrate in the left upper lobe on [...] can be assessed on a nonemergent ultrasound. Stomach and bowel: Dilated esophagus secondary to dysmotilityor reflux. Bones/joints: Unremarkable. No acute fracture. Soft tissues: Gynecomastia. IMPRESSION: 1. Ground-glass infiltrate in the left upper lobe on [...] on this exam. This can be assessed nithin nonemergent ultrasound. COMMENTS: PAGE 1 Signed Report (CONTINUED) Name: MARTY BASS [facility] : 1975 Age/S: 46 / M [address] [place] [address] Blvd Unit #: [id number] Loc: [place] [address] Phys: Daisha Lucas Acct: [id number] Dis Date: Status: ADM IN PHONE #: [phone] Exam Date: 03/23/2022 1633 FAX #: [phone] Reason: CABG workup EXAMS: CPT CODE: [id number] CT CHEST W/O CONTR AST 54582 (Continued) Consistent with the [employer]'s Incidental Findings Committee white paper (J Am Isaiah Radiol 2018): Any incidental renal lesion less than 1 cm or classified as too small to characterize, or any incidental cystic renal lesion characterized as simple- appearing, is likely benign. No follow-up imaging is recommended for these lesions per consensus recommendations based on imaging criteria. REFERENCES: Santiago Wick, et al. Guidelines for Management of Incidental Pulmonary Nodules Detected on CT Images: From the Fleischner Society 2017. Radiology. 2017;284(1):228-243. at 0905 Reported and signed by: Nba Webber M.D. 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 [facility] GLUCOSE [id number] 17:54:00 Test Item Value Reference Range Interpretation Comments GLUCOSE BEDSIDE (test 84 MG/DL 70-110 N Perfor med by certified code = GLUBED) 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 [facility] GLUCOSE [id number] 14:19:00 Test Item Value Reference Range Interpretation Comments GLUCOSE BEDSIDE (test 98 MG/DL 70-110 N Perfor med by certified code = GLUBED) 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 [facility] GLUCOSE [id number] 14:19:00 Test Item Value Reference Range Interpretation Comments GLUCOSE BEDSIDE (test 34 MG/DL 70-110 L Perfor med by certified code = GLUBED) 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 [facility] GLUCOSE [id number] 08:28:00 Test Item Value Reference Range Interpretation Comments GLUCOSE BEDSIDE (test 232 MG/DL 70-110 H Perfor med by certified code = GLUBED) 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 [facility] BASIC METABOLIC [id number] 05:32:00 Test Item Value Reference Range Interpretation [...] 9.8 mg/dL 8.0-10.5 N CA) CBC W/AUTO [id number] 04:58:00 Test Item Value Reference Range Interpretation [...] REQUIRED (test code NO = MDIFF) GLUCOSE [id number] 20:19:00 Test Item Value Reference Range Interpretation Comments GLUCOSE BEDSIDE (test 200 MG/DL 70-110 H Perfor med by certified code = GLUBED) 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 [facility] GLUCOSE [id number] 17:15:00 Test Item Value Reference Range Interpretation Comments GLUCOSE BEDSIDE (test 160 MG/DL 70-110 H Perfor med by certified code = GLUBED) 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 [facility] GLUCOSE [id number] 12:22:00 Test Item Value Reference Range Interpretation Comments GLUCOSE BEDSIDE (test 217 MG/DL 70-110 H Perfor med by certified code = GLUBED) 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 [facility] [id number]%2022-03-22 09:14:00 Test Item Value Reference Range Interpretation Comments HGBA1C% (test code = HGBA1C%) 10.0 %A1C 4.8-6.0 H GLUCOSE [id number] 08:43:00 Test Item Value Reference Range Interpretation Comments GLUCOSE BEDSIDE (test 131 MG/DL 70-110 H Perfor med by certified code = GLUBED) 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 [facility] BASIC METABOLIC [id number] 08:19:00 Test Item Value Reference Range Interpretation [...] (test code = LDL) NEAR OPTIM AL/ABOVE [id number] HIGH>MB=046 MICHAEL Y HIGH*Guidelines provided by the National Choles terol EducationProgra m Adult Treatment Panel III TSH REFLEX TO [id number] 08:19:00 Test Item Value Reference Range Interpretation Comments TSH REFLEX TO FT4 (test code = 1.80 IU/mL 0.42-5.47 N TSHREFLEX) FOLIC [id number] 08:12:00 Test Item Value Reference Range Interpretation Comments FOLIC ACID (test code = FOL) 7.4 ng/mL 3.1-17.5 N [id number] 08:12:00 Test Item Value Reference Range Interpretation Comments FERRITIN (test code = GOPI) 926.5 ng/mL 23.9-336.2 H TOTAL IRON BINDING [id number] 08:12:00 Test Item Value Reference Range Interpretation Comments SERUM IRON (test code = IRON) 35 mcg/dL 35-150 N TOTAL IRON BINDING CAPACITY (test 214 mcg/dL 260-445 L code = TIBC) UIBC (test code = UIBC) 179 mcg/dL IRON SATURATION (test code = 16.4 % 14-34 N FESAT) VITAMIN [id number] 08:12:00 Test Item Value Reference Range Interpretation Comments VITAMIN B12 (test code = VITB12) 876 pg/mL 193-986 N CBC W/O [id number] 07:49:00 Test Item Value Reference Range Interpretation [...] code 10.7 fL 7.0-9.0 H = MPV) Consult Notes Date/Time Note Provider Source 2022-10-30 10:34:17 [id number]:34:17Associated Order(s): [facility] CONSULT CARDIOLOGY Cardiology Consult NoteDate of Service: 10/30/2022 10:34Time: 10:34 AMService: Cardiology Complaint: Nausea/vomitingReason for admission: NSTEMIReason for consult: NSTEMI -----Assessment:Marty Bass is a 47 year old male with PMHx of NSTEMI, CAD s/p CABG (03/2022) and RCA ISR s/p AZUCENA (09/2022), HTN, ESRD on HD, History of Perioperative (CABG) atrial fibrillation, Pulmonary hypertension, T2DM admitted with:NSTEMICAD s/p CABG (03/2022) and RCA ISR s/p AZUCENA (09/2022)HTNESRD on HDChronic HFpEFThrombocytopeniaHistory of Perioperative (CABG) atrial fibrillationPulmonary [id number]- Patient presents with symptoms of nausea and vomiting following a nuclear stress. It is concerning for NSTEMI, given the troponin elevation. Patient remains chest pain free at this time, hemodynamically stable on exam with troponin trending up to 4.1. ECG with NSR and no ischemic changes. Given patient's presentation and history of CAD we will continue with the ACS protocol and ischaemic guided therapy.Recommendations:Keep n.p.o. for left heart catheterization todayContinue Aspirin 81 mg daily, clopidogrel 75 mg daily and heparin infusion until LHCContinue atorvastatin 80 mg daily, losartan 50 mg daily, Nifedipine 90 mg and Atenolol 25 mg dailyContinue aggressive management of medical co-morbidities including ESRD and T2DM ---History of Present Illness:Marty Bass Jr. is a 47 year old male with PMHx of NSTEMI, CAD s/p CABG (03/2022) and RCA ISR s/p AZUCENA (09/2022), HTN, ESRD on HD, History of Perioperative (CABG) atrial fibrillation, Pulmonary hypertension, T2DM admitted to [facility] as a referral from [place] for management of NSTEMI.Patient presented to [facility] for stress test. During his stress test patient had several episodes of nausea and vomiting and abdominal discomfort. Labs showed an initial troponin elevation and so he was transferred to [facility] for NSTEMI management.On arrival to the hospital patient was noted to have an elevated troponin which peaked at 4.10, elevated lipase at 423, normal sodium 137, potassium 3.7, hemoglobin 10.6, platelet 85. Initial EKG showed normal sinus rhythm with no ischemic changes.At this time patient denies any chest pain or shortness of breath. He confirms that few days prior to his stress test he has been experiencing abdominal discomfort, nausea and vomiting due to his gastroparesis. However symptoms got worse during his stress test. All through he denies having any chest pain, palpitations, sweating/diaphoresis.ROS:Negative, or as otherwise stated in HPIPast Medical History: Diagnosis Date Anemia Anxiety Cataract 2010 fixed bilaterally Dialysis patient DM (diabetes mellitus) 1992 ESRD (end stage renal disease) on dialysis Gastroparesis GERD (gastroesophageal reflux disease) Hypertension 2014 IBS (irritable bowel syndrome) Nephropathy NSTEMI (non-ST elevated myocardial infarction) 10/29/2022 Retinopathy Secondary hyperparathyroidism of renal origin Past Surgical History: Procedure Laterality Date ARTERIOVENOUS FISTULA CREATION 2012 EYE SURGERY Family History Problem Relation Age of Onset Diabetes Mother Hypertension Mother Diabetes Father Hypertension Father dialysis Diabetes Sister No Significant Medical Problems Brother No Significant Medical Problems Brother Social History Socioeconomic History Marital status: Single Tobacco Use Smoking status: Never Smokeless tobacco: Never Vaping Use Vaping Use: Never used Substance and Sexual Activity Alcohol use: Not Currently Comment: quit 4-5 years ago Drug use: No Sexual activity: Not Currently Social Determinants of Health Financial Resource Strain: Low Risk (09/24/2022) Overall Financial Resource Strain (CARDIA) Difficulty of Paying Living Expenses: Not hard at all Food Insecurity: No Food Insecurity (09/24/2022) Hunger Vital Sign Worried About Running Out of Food in the Last Year: Never true Ran Out of Food in the Last Year: Never true Transportation Needs: No Transportation Needs (09/24/2022) PRAPARE - Transportation Lack of Transportation (Medical): No Lack of Transportation (Non-Medical): No Housing Stability: Unknown (09/24/2022) Housing Stability Vital Sign Unable to Pay for Housing in the Last Year: No Unstable Housing in the Last Year: No Allergies Allergen Reactions Phenergan [Promethazine Hcl] Anxiety "jumpy" Prior to Admission medications Medication Sig Start Date End Date Taking? Authorizing Provider amitriptyline 50 mg tablet Take 1 tablet by mouth at bedtime as needed for Insomnia. 04/24/22 Yes Doctor Unassigned, [place] clopidogreL 75 mg tablet Take 1 tablet by mouth in the morning. 10/03/22 Yes Mariposa Teague MD atenoloL 25 mg tablet Take 1 tablet by mouth in the morning. Yes Doctor Unassigned, [place] NITROGLYCERIN 0.4 mg sublingual tablet DISSOLVE ONE TABLET UNDER THE TONGUE EVERY 5 MINUTES NEEDED FOR CHEST PAIN. DO NOT EXCEED A TOTAL OF 3 DOSES IN 15 MINUTES 09/04/22 Yes Mariposa Teague MD atorvastatin 80 mg tablet Take 1 tablet by mouth at bedtime. 07/03/22 Yes Mariposa Teague MD hydrALAZINE 10 mg tablet Take 1 tablet by mouth as needed for BP and/or HR Goals determined by provider. Yes Doctor Unassigned, [place] NIFEdipine ER 90 mg tablet Take 1 tablet by mouth in the morning. 06/12/22 Yes Mariposa Teague MD telmisartan 40 mg tablet Take 1 tablet by mouth in the morning. Yes Doctor Unassigned, [place] sevelamer 800 mg tablet Take 1 tablet by mouth in the morning and 1 tablet at noon and 1 tablet in the evening. Take with meals. Yes Doctor Unassigned, [place] aspirin 81 mg EC tablet Take 1 tablet by mouth in the morning. Yes Doctor Unassigned, [place] tiZANidine 2 mg tablet 07/10/18 Yes Doctor Unassigned, [place] Insulin Glargine 100 unit/mL (3 mL) injection inject 25 Units under the skin. Yes Doctor Unassigned, [place] ALPRAZolam 0.25 mg tablet Take 1 tablet by mouth in the morning and 1 tablet in the evening. Yes Doctor Unassigned, [place] Insulin Lispro, Human, 100 unit/mL cartridge inject 20 Units under the skin in the morning and 20 Units in the evening. Yes Doctor Unassigned, [place] rOPINIRole 4 mg tablet Take 1 tablet by mouth every 24 (twenty-four) hours as needed for Other. Restless leg syndrome 10/28/22 Doctor Unassigned, [place] Current Facility-Administered Medications: ALPRAZolam (XANAX) tablet 1 mg, 1 mg, Oral, QHSPRN, Jose R Delgado MD amitriptyline (ELAVIL) tablet 50 mg, 50 mg, Oral, QHSPRN, Jose R Delgado MD atenoloL (TENORMIN) tablet 25 mg, 25 mg, Oral, DAILY, Jose R Delgado MD, 25 mg at 10/30/22 09 atorvastatin (LIPITOR) tablet 80 mg, 80 mg, Oral, QHS, Jose R Delgado MD, 80 mg at 10/30/22 0157 clopidogreL (PLAVIX) 75 mg tablet 75 mg, 75 mg, Oral, DAILY, Jose R Delgado MD, 75 mg at 10/30/22 0913 heparin 1,000 unit/mL injection 3,000 Units, 3,000 Units, Slow IV Push, DIALYSIS ONCE - PT ROOM FOLLOWED BY heparin 1,000 unit/mL injection 3,000 Units, 3,000 Units, Slow IV Push, DIALYSIS ONCE - PT ROOM, Cabrera Gibson MD insulin lispro (human) (HumaLOG U-100) injection 20 Units, 20 Units, Subcutaneous, TIDAC, Jose R Delgado MD losartan (COZAAR) tablet 50 mg, 50 mg, Oral, DAILY, Jose R Delgado MD, 50 mg at 10/30/22912 NIFEdipine ER tablet 90 mg, 90 mg, Oral, DAILY, Jose R Delgado MD, 90 mg at 10/30/22912 proMETHazine (PHENERGAN) 12.5 mg in NS 50 mL IV piggyback (CNR), 12.5 mg, IV Piggyback, Q4HPRN, Jose R Delgado MD sevelamer (RENVELA) tablet 800 mg, 800 mg, Oral, TID MEALS, Jose R Delgado MD, 800 mg at 10/30/22912 tiZANidine (ZANAFLEX) tablet 2 mg, 2 mg, Oral, Q6HPRN, Jose R Delgado MD acetaminophen (TYLENOL) tablet 650 mg, 650 mg, Oral, Q6HPRN, Jose R Delgado MD acetaminophen-codeine (TYLENOL #3) 300-30 mg tablet 1 tablet, 1 tablet, Oral, Q6HPRN, Jose R Delgado MD aspirin chewable tablet 81 mg, 81 mg, Oral, DAILY, Jose R Delgado MD, 81 mg at 10/30/22912 dextrose 50 % in water (D50W) injection 25 mL, 25 mL, Slow IV Push, PRN, Jose R Delgado MD glucagon (GLUCAGEN DIAGNOSTIC KIT) injection 1 mg, 1 mg, Intramuscular, PRN, Jose R Delgado MD heparin (1,000 unit/mL, 10 mL vial) for Rebolusing, 3,000 Units, Slow IV Push, FOR REBOLUSING, Kaela Gallegos DO heparin 25,000 Units/250 mL (Premixed Bag) in 0.45 % NS, 0-2,750 Units/hr, IV Infusion, TITRATE, Kaela Gallegos DO, Last Rate: 10 mL/hr at 10/30/22617, 1,000 Units/hr at 10/30/22617 morpHINE (4 mg/mL) injection 4 mg, 4 mg, Slow IV Push, Q4HPRN, Jose R Delgado MD nitroglycerin (NITROSTAT) sublingual tablet 0.4 mg, 0.4 mg, Sublingual, Q5MIN PRN, Jose R Delgado MD ondansetron (ZOFRAN (PF)) injection 4 mg, 4 mg, Slow IV Push, Q6HPRN, Jose R Delgado MD pantoprazole (PROTONIX) EC tablet 40 mg, 40 mg, Oral, DAILY, Jose R Delgado MD, 40 mg at 10/30/22 0913 Sliding Scale Insulin - Lispro (HumaLOG), , Subcutaneous, TID MEALS+HS, Jose R Delgado MD, 1 Units at 10/29/22 2201Physical Examination:Temp: [35.8 ?C (96.5 ?F)-36.7 ?C (98 ?F)] Heart Rate (monitor): [63-90] Pulse: [63-90] Resp: [15-19] BP: (113-179)/(62-119) MAP (mmHg): [79-131] Intake/Output Summary (Last 24 hours) at 10/30/2022 1034Last data filed at 10/29/2022 1948Gross per 24 hour Intake 1000 ml Output -- Net 1000 ml General: in no apparent distressHead: Normocephalic, atraumatic, mucous membranes moist, no pallor or cyanosisNeck: supple, no thyromegaly. JVP not elevated.Chest: Effort is unlabored. Auscultation bilaterally clear. No crackles or wheezing noted. Heart: Regular rhythm, S1: normal. S2: normal. No gallops, rubs noted. Grade 3/6 systolic murmur loudest at the aortic area but also audible at the left lower sternal border. Abdomen: no distension or tendernessNeurologic: AAO x 3, No focal neurological deficits, cranial nerves intact, moves all extremities symmetrically.Extremities: No clubbing, cyanosis. Edema: No LE oedema. Radial pulses intact, brachial pulses intact, Psychiatric: appropriate affect, does not appear to be depressed.Skin: no significant lesionsLabs/Imaging/Pathology - Reviewed Labs (last 24 hours):Chemistry CBC LFTs Coags, other 137 94 (L) 40 (H) 336 (H) 6.26 10.6 (L) 85 (L) AST: 21 ALT: 15 PT: 15.1 (H) INR: 1.2 3.7 25 6.45 (H) 32.2 (L) AP: 153 (H) T Seb: 1.5 (H) PTT: 82 (H) eGFR: 9.4 Ca: 9.9 % Wendy: 75.1 Prot: 8.8 (H) Alb: 4.5 Lact: - Procal: - Mg: - PO4: - ANC: 4.70 pBNP: - Trop I: 4.100 (H) EKG: NSR with no ischaemic changesEchocardiography: 09/24/22Left Ventricle Severely increased wall thickness. Severe septal thickening. Severely increased ventricular mass. There is severe concentric hypertrophy. LVMI 19 g/m2. Septal flattening in diastole consistent with right ventricular volume overload. . No regional wall motion abnormalities. Estimated EF is 55 - 60%. There is grade 3 diastolic dysfunction. Elevated left ventricular filling pressure. Right Ventricle Right ventricle is dilated. Mildly increased wall thickness. Low normal systolic function. Left Atrium Left atrium is severely dilated. Left atrium volume index is 49.5 mL/m2. Right Atrium Right atrium is dilated. IVC/SVC IVC diameter is greater than 21 mm and decreases less than 50% during inspiration; therefore the estimated right atrial pressure is elevated (~15 mmHg). Mitral Valve Moderately calcified leaflets. Mild transvalvular regurgitation. No stenosis. Tricuspid Valve Mild transvalvular regurgitation. Right ventricular systolic pressure is 40-45 mmHg. No stenosis. Aortic Valve Moderately thickened cusps. Mild annular calcification. Mild transvalvular regurgitation. Consistent with mild aortic stenosis. Pulmonic Valve Valve structure is normal. Mild transvalvular regurgitation. No stenosis. Ascending Aorta Atherosclerosis of the sinus of Valsalva. Pericardium No pericardial effusion. Interpretation Summary Left Ventricle: Severely increased wall thickness. Severe septal thickening. Severely increased ventricular mass. There is severe concentric hypertrophy. LVMI 19 g/m2. Septal flattening in diastole consistent with right ventricular volume overload. . No regional wall motion abnormalities. Estimated EF is 55 - 60%. There is grade 3 diastolic dysfunction. Elevated left ventricular filling pressure. Left Atrium: Left atrium is severely dilated. Left atrium volume index is 49.5 mL/m2. Right Ventricle: Right ventricle is dilated. Mildly increased wall thickness. Low normal systolic function. Nuclear imagin10/29/22Procedure: Only resting images were obtained. The patient was sent to ER due tovomiting. No stress test performed. Myocardial perfusion imaging wasperformed at rest following the injection of 15.9 millicuries of technetiumlabeled Myoview. Findings: The overall quality of the study was good. No stress EKG obtained. Resting SPECT images demonstrate a moderate sized of moderate intensityinferolateral perfusion defect. No gated SPECT images were obtained. IMPRESSIONImpression: Abnormal resting myocardial perfusion scan.Cardiac Cath: 09/24/22Findings:coronary dominance: rightleft main: NormalLAD: Ostial occludedLCX: proximal mild LI, gives OM1 that is proximal occluded, then mid 90% into OM2 continue with mild LIRCA: Large, dominant, large stent from proximal to mid RCA with focal mid 80% ISR (PCI done with Xience 4.5x12 mm AZUCENA), mid to distal mild LI, distal eccentric 40-50% disease. RPDA/RPLA mild LI Grafts:- LUNSFORD-Diagonal jump to LAD: Patent, supply all LAD, the LUNSFORD gives large side branch that supply chest wall.- SVG-OM1: Patent Findings: RHC Pressures:RA mean 22 mmHgRV 73/8 mmHgPA 74/24 mmHg (mean PA 41 mmHg)PCWP mean 32 mmHgCO 4.7/5.3 L/minCI 2.4/2.7 L/min/m2TPG 9 mmHgPVR 2 Christine Units Impression and Plan:- Significant mid RCA stent ISR, PCI done with Xience 4.5x12 mm AZUCENA.- Large LUNSFORD side branch, recommend MIBI stress test to evaluate demand ischemia in LAD territory and possible LUNSFORD side branch coiling.- significant mid LCX disease, MIBI stress test, if positive then PCI.- Significant elevated filling pressures, need more aggressive diuresis.- ASA 81 mg daily for life.- Brilinta 180 mg po x1 was given in [employer]orer [employer], please give Plavix 600 mg po x1 tonight then continue Plavix 75 mg daily for 12 months.- Continue aggressive medical treatment for CAD.- Findings and plan of care discussed with patient and familyThank you for your consult.This was discussed with Dr. Erin Rajput.Rickey Weiss, MDCardiovascular Medicine FellowUnMemorial Hermann Southwest [facility] ssociated attestation - Erin Rajput MD - 10/30/2022 2:03 PM CDT I reviewed patient's chart, vitals, lab work, current medications and other diagnostic studies. I saw and examined the patient today and agree with the detailed consult note written by Dr. Isis Weiss. I actively participated in the decision-making process. Please see the detailed consult note for additional detailsThanks for allowing us to participate in the care of this patient. Please feel free to call [facility] Cardiology service for any questions. Erin Rajput MD, FACCAssistant ProfessorDivision of Cardiovascular Medicine [facility]. 28863-4Brpodyx [id number], [id number] 78PpfvSifludzlFH0552-93-78J79:03:39Consult [id number] 9|[id number] for patient odyd76831-0Fuqugdc noteLNUT[address] Vu[id number] VFFISJEOJZKPXSCQ9795-97-28A30:03:391.2.840 .021488.1.72.3.15|1.2.840.414050.1.13.104. [id number] 2022-10-30 07:09:39 [id number]:09:39Associated Order(s): [facility] CONSULT NEPHROLOGY [facility] Consult Note10/30/2022 7:10 AMSubjective Admission Date: 10/29/2022 Consult Date: 10/30/22Reason for ConsultESRDRequesting ProviderPatel, Jose R, MDChief ComplaintNSTEMIHistory of Present IllnessMr Marty Bass is a 61-year-old gentleman with a past medical history of CAD s/p CABG (Mar 2022), HFpEF, hypertension, hyperlipidemia, diabetes mellitus type 2, Diabetic gastroparesis, ESRD on HD, irritable bowel syndrome, pulmonary hypertension, SERGIO not on CPAP presents as a transfer from [facility] for NSTEMI. Patient's labs noted normal CBC, CMP significant for a BUN of 40, creatinine 6.45, bilirubin 1.5, troponin 1.13, lipase 4023, alk phos 153, ALT 15, AST 21, COVID-19 test negative. A consult called for the management of ESRD. Past Medical History: Diagnosis Date Anemia Anxiety Cataract 2010 fixed bilaterally Dialysis patient DM (diabetes mellitus) 1992 ESRD (end stage renal disease) on dialysis Gastroparesis GERD (gastroesophageal reflux disease) Hypertension 2014 IBS (irritable bowel syndrome) Nephropathy NSTEMI (non-ST elevated myocardial infarction) 10/29/2022 Retinopathy Secondary hyperparathyroidism of renal origin Past Surgical History: Procedure Laterality Date ARTERIOVENOUS FISTULA CREATION 2012 EYE SURGERY Medications Prior to Admission Medication Sig Dispense Refill Last Dose amitriptyline 50 mg tablet Take 1 tablet by mouth at bedtime as needed for Insomnia. clopidogreL 75 mg tablet Take 1 tablet by mouth in the morning. 30 tablet 12 atenoloL 25 mg tablet Take 1 tablet by mouth in the morning. NITROGLYCERIN 0.4 mg sublingual tablet DISSOLVE ONE TABLET UNDER THE TONGUE EVERY 5 MINUTES NEEDED FOR CHEST PAIN. DO NOT EXCEED A TOTAL OF 3 DOSES IN 15 MINUTES 25 tablet 0 atorvastatin 80 mg tablet Take 1 tablet by mouth at bedtime. 90 tablet 3 hydrALAZINE 10 mg tablet Take 1 tablet by mouth as needed for BP and/or HR Goals determined by provider. NIFEdipine ER 90 mg tablet Take 1 tablet by mouth in the morning. telmisartan 40 mg tablet Take 1 tablet by mouth in the morning. sevelamer 800 mg tablet Take 1 tablet by mouth in the morning and 1 tablet at noon and 1 tablet in the evening. Take with meals. aspirin 81 mg EC tablet Take 1 tablet by mouth in the morning. tiZANidine 2 mg tablet 1 Insulin Glargine 100 unit/mL (3 mL) injection inject 25 Units under the skin. ALPRAZolam 0.25 mg tablet Take 1 tablet by mouth in the morning and 1 tablet in the evening. Insulin Lispro, Human, 100 unit/mL cartridge inject 20 Units under the skin in the morning and 20 Units in the evening. rOPINIRole 4 mg tablet Take 1 tablet by mouth every 24 (twenty-four) hours as needed for Other. Restless leg syndrome Current Facility-Administered Medications Medication Dose Route Frequency Last Rate Last Admin ALPRAZolam (XANAX) tablet 1 mg 1 mg Oral QHSPRN amitriptyline (ELAVIL) tablet 50 mg 50 mg Oral QHSPRN atenoloL (TENORMIN) tablet 25 mg 25 mg Oral DAILY atorvastatin (LIPITOR) tablet 80 mg 80 mg Oral QHS 80 mg at 10/30/22 0157 clopidogreL (PLAVIX) 75 mg tablet 75 mg 75 mg Oral DAILY insulin lispro (human) (HumaLOG U-100) injection 20 Units 20 Units Subcutaneous TIDAC losartan (COZAAR) tablet 50 mg 50 mg Oral DAILY NIFEdipine ER tablet 90 mg 90 mg Oral DAILY proMETHazine (PHENERGAN) 12.5 mg in NS 50 mL IV piggyback (CNR) 12.5 mg IV Piggyback Q4HPRN sevelamer (RENVELA) tablet 800 mg 800 mg Oral TID MEALS tiZANidine (ZANAFLEX) tablet 2 mg 2 mg Oral Q6HPRN acetaminophen (TYLENOL) tablet 650 mg 650 mg Oral Q6HPRN acetaminophen-codeine (TYLENOL #3) 300-30 mg tablet 1 tablet 1 tablet Oral Q6HPRN aspirin chewable tablet 81 mg 81 mg Oral DAILY dextrose 50 % in water (D50W) injection 25 mL 25 mL Slow IV Push PRN glucagon (GLUCAGEN DIAGNOSTIC KIT) injection 1 mg 1 mg Intramuscular PRN heparin (1,000 unit/mL, 10 mL vial) for Rebolusing 3,000 Units Slow IV Push FOR REBOLUSING heparin 25,000 Units/250 mL (Premixed Bag) in 0.45 % NS 0-2,750 Units/hr IV Infusion TITRATE 10 mL/hr at 10/30/22 0618 1,000 Units/hr at 10/30/22 0618 morpHINE (4 mg/mL) injection 4 mg 4 mg Slow IV Push Q4HPRN nitroglycerin (NITROSTAT) sublingual tablet 0.4 mg 0.4 mg Sublingual Q5MIN PRN ondansetron (ZOFRAN (PF)) injection 4 mg 4 mg Slow IV Push Q6HPRN pantoprazole (PROTONIX) EC tablet 40 mg 40 mg Oral DAILY Sliding Scale Insulin - Lispro (HumaLOG) Subcutaneous TID MEALS+HS 1 Units at 10/29/22 2201 Allergies Allergen Reactions Phenergan [Promethazine Hcl] Anxiety "jumpy" Family History Problem Relation Age of Onset Diabetes Mother Hypertension Mother Diabetes Father Hypertension Father dialysis Diabetes Sister No Significant Medical Problems Brother No Significant Medical Problems Brother Social History Socioeconomic History Marital status: Single Spouse name: Not on file Number of children: Not on file Years of education: Not on file Highest education level: Not on file Occupational History Not on file Tobacco Use Smoking status: Never Smokeless tobacco: Never Vaping Use Vaping Use: Never used Substance and Sexual Activity Alcohol use: Not Currently Comment: quit 4-5 years ago Drug use: No Sexual activity: Not Currently Other Topics Concern Not on file Social History Narrative Not on file Social Determinants of Health Financial Resource Strain: Low Risk (09/24/2022) Overall Financial Resource Strain (CARDIA) Difficulty of Paying Living Expenses: Not hard at all Food Insecurity: No Food Insecurity (09/24/2022) Hunger Vital Sign Worried About Running Out of Food in the Last Year: Never true Ran Out of Food in the Last Year: Never true Transportation Needs: No Transportation Needs (09/24/2022) PRAPARE - Transportation Lack of Transportation (Medical): No Lack of Transportation (Non-Medical): No Physical Activity: Not on file Stress: Not on file Social Connections: Not on file Intimate Partner Violence: Not on file Housing Stability: Unknown (09/24/2022) Housing Stability Vital Sign Unable to Pay for Housing in the Last Year: No Number of Places Lived in the Last Year: Not on file Unstable Housing in the Last Year: No Review of SystemsA 12 point ROS was performed and pertinent positives as per HPI. Objective Physical ExamGeneral: Appropriate for age, no acute distress, well-developed and well-nourished. HENT: Head: Normocephalic and atraumatic. Eyes: Conjunctivae and EOM are normal. Pupils are equal, round, and reactive to light. Neck: Neck supple. No jugular venous distentionCardiovascular: Normal rate, rhythm and heart sounds. No gallop, rub or murmur.Chest: NAD Abdominal: Soft. BS are normal. Extremities: Normal range of motion, no edema, tenderness or deformity. Neurological: Alert and oriented. Cranial nerves intact Labs/Radiology/Diagnostics.currCMPNA (mmol/L) Date Value 10/29/2022 137 09/25/2022 135 09/12/2022 138 06/11/2022 138 07/21/2018 145 K (mmol/L) Date Value 10/29/2022 3.7 09/25/2022 3.5 09/12/2022 3.6 06/11/2022 4.5 07/21/2018 4.4 CALCIUM (mg/dL) Date Value 10/29/2022 9.9 09/25/2022 8.8 09/12/2022 9.8 06/11/2022 9.5 07/21/2018 10.6 CL (mmol/L) Date Value 10/29/2022 94 (L) 09/25/2022 95 (L) 09/12/2022 95 (L) 06/11/2022 101 07/21/2018 102 BUN (mg/dL) Date Value 10/29/2022 40 (H) 09/25/2022 33 (H) 09/12/2022 28 (H) 06/11/2022 89 (H) 07/21/2018 40 (H) CREATININE (mg/dL) Date Value 10/29/2022 6.45 (H) 09/25/2022 6.61 (H) 09/12/2022 4.82 (H) 06/11/2022 11.13 (H) 07/21/2018 7.90 (H) GLUCOSE (mg/dL) Date Value 10/29/2022 336 (H) 09/25/2022 181 (H) 09/12/2022 281 (H) 06/11/2022 192 (H) 07/21/2018 90 CO2 TOTAL (mmol/L) Date Value 10/29/2022 25 09/25/2022 26 09/12/2022 30 06/11/2022 17 (L) 07/21/2018 30 ALBUMIN (g/dL) Date Value 10/29/2022 4.5 09/12/2022 4.3 06/11/2022 4.3 07/21/2018 4.3 12/04/2017 4.0 T PROTEIN (g/dL) Date Value 10/29/2022 8.8 (H) 09/12/2022 8.0 06/11/2022 8.3 (H) 07/21/2018 7.9 12/04/2017 7.0 TOTAL BILI (mg/dL) Date Value 10/29/2022 1.5 (H) 09/12/2022 1.4 (H) 06/11/2022 1.1 07/21/2018 0.8 12/04/2017 0.5 BILI UNCON (mg/dL) Date Value 12/04/2017 0.3 BILI CONJ (mg/dL) Date Value 12/04/2017 0.0 ALT(SGPT) (U/L) Date Value 07/21/2018 24 12/04/2017 36 10/08/2016 20 ALTv (U/L) Date Value 10/29/2022 15 09/12/2022 14 06/11/2022 13 AST(SGOT) (U/L) Date Value 10/29/2022 21 09/12/2022 23 06/11/2022 20 07/21/2018 18 12/04/2017 16 ALK PHOS (U/L) Date Value 10/29/2022 153 (H) 09/12/2022 137 (H) 06/11/2022 108 07/21/2018 88 12/04/2017 76 No results found for: "PHOS"CBC withoutdiffWBC (10*3/?L) Date Value 10/29/2022 6.26 09/25/2022 4.88 09/12/2022 4.12 (L) 06/11/2022 4.76 07/21/2018 6.16 HGB (g/dL) Date Value 10/29/2022 10.6 (L) 09/25/2022 10.1 (L) 09/12/2022 10.8 (L) 06/11/2022 10.0 (L) 07/21/2018 8.8 (L) HCT (%) Date Value 10/29/2022 32.2 (L) 09/25/2022 30.9 (L) 09/12/2022 33.6 (L) 06/11/2022 30.7 (L) 07/21/2018 29.2 (L) MCV (fL) Date Value 10/29/2022 94.4 09/25/2022 90.9 09/12/2022 92.3 06/11/2022 89.0 07/21/2018 89.3 PLT (10*3/?L) Date Value 10/29/2022 85 (L) 09/25/2022 90 (L) 09/12/2022 80 (L) 06/11/2022 108 (L) 07/21/2018 169 PROTEIN (no units) Date Value 10/08/2016 500 mg/dL (A) PH (no units) Date Value 10/08/2016 6.0 GLU U QUAL (no units) Date Value 10/08/2016 150 mg/dL (A) KETONES (no units) Date Value 10/08/2016 Negative BILIRUBIN (no units) Date Value 10/08/2016 Negative No results found for: "UBLOOD"No results found for: "UUROBILIN"LEUK SACHIN (no units) Date Value 10/08/2016 Negative NITRITE (no units) Date Value 10/08/2016 Negative SP GRAVITY (no units) Date Value 10/08/2016 1.013 No final results containing an impression from the past 48 hours were found.Problem ListNo problems updated.Impression and SlyeWFJRIM7VRWPNfABKvchkpsd GastroparesisWill arrange his dialysis per his routine schedule which is today..Finally thank you very much for this consult, I will be happy to follow this patient with you. Cabrera Gibson MD [facility] of NephrologyAdjcatawba valley medical [facility] rn ante partum [facility] CENTERCell: [id number] syrgQF1966-08-26W42:52:29Consult noteTXT1.2.840.266545.1.13.104.2.7.2.28633 9|[id number] for patient qnoi42210-4Ohfslkb note[address] Vp[id number] QQTODINGAUAPSVYB6519-71-09V16:52:291.2.840 .939335.1.72.3.15|1.2.840.132827.1.13.104. [id number] History and Physical Notes Date/Time Note Provider Source 2022-10-29 22:36:53 6603-05-27J16:36:53Formatting of this note [facility] is different from the original.AM INTERNAL MEDICINE HISTORY & PHYSICALPCP: Jennifer James Date of Service: 10/29/2022HIEF COMPLAINT: NSTEMIHistory of Present IllnessMr Marty Bass is a 61-year-old gentleman with a past medical history of CAD s/p CABG (Mar 2022), HFpEF, hypertension, hyperlipidemia, diabetes mellitus type 2, Diabetic gastroparesis, ESRD on HD, irritable bowel syndrome, pulmonary hypertension, SERGIO not on CPAP presents as a transfer from [facility] for NSTEMI. Patient was having outpatient stress test where he began to vomit and was sent to the ER for further evaluation. He vomited several times and reported that it is related to his diabetic gastroparesis. He denies any chest pain, shortness of breath, fevers, chills, headaches, abdominal pain. In ED, patient was hypertensive but afebrile and not tachycardic. Routine labs noted normal CBC, CMP significant for a BUN of 40, creatinine 6.45, bilirubin 1.5, troponin 1.13, lipase 4023, alk phos 153, ALT 15, AST 21, COVID-19 test negative. Repeat troponin decreased to 0.852. Cardiology was consulted who recommended transfer to [facility] for further evaluation of of NSTEMI. Received aspirin 325 mg earlier today, he was initiated on heparin drip and transferred to [facility] for further management. PAST MEDICAL HISTORY Past Medical History: Diagnosis Date Anemia Anxiety Cataract 2010 fixed bilaterally Dialysis patient DM (diabetes mellitus) 1992 ESRD (end stage renal disease) on dialysis Gastroparesis GERD (gastroesophageal reflux disease) Hypertension 2014 IBS (irritable bowel syndrome) Nephropathy NSTEMI (non-ST elevated myocardial infarction) 10/29/2022 Retinopathy Secondary hyperparathyroidism of renal origin Past Surgical History: Procedure Laterality Date ARTERIOVENOUS FISTULA CREATION 2012 EYE SURGERY Family History Problem Relation Age of Onset Diabetes Mother Hypertension Mother Diabetes Father Hypertension Father dialysis Diabetes Sister No Significant Medical Problems Brother No Significant Medical Problems Brother ALLERGIESAllergies Allergen Reactions Phenergan [Promethazine Hcl] Anxiety "jumpy" MEDICATIONSNo current facility-administered medications on file prior to encounter. Current Outpatient Medications on File Prior to Encounter Medication Sig Dispense Refill clopidogreL 75 mg tablet Take 1 tablet by mouth in the morning. 30 tablet 12 atenoloL 25 mg tablet Take 1 tablet by mouth in the morning. NITROGLYCERIN 0.4 mg sublingual tablet DISSOLVE ONE TABLET UNDER THE TONGUE EVERY 5 MINUTES NEEDED FOR CHEST PAIN. DO NOT EXCEED A TOTAL OF 3 DOSES IN 15 MINUTES 25 tablet 0 atorvastatin 80 mg tablet Take 1 tablet by mouth at bedtime. 90 tablet 3 hydrALAZINE 10 mg tablet Take 1 tablet by mouth as needed for BP and/or HR Goals determined by provider. NIFEdipine ER 90 mg tablet Take 1 tablet by mouth in the morning. telmisartan 40 mg tablet Take 1 tablet by mouth in the morning. sevelamer 800 mg tablet Take 1 tablet by mouth in the morning and 1 tablet at noon and 1 tablet in the evening. Take with meals. aspirin 81 mg EC tablet Take 1 tablet by mouth in the morning. tiZANidine 2 mg tablet 1 Insulin Glargine 100 unit/mL (3 mL) injection inject 25 Units under the skin. ALPRAZolam 0.25 mg tablet Take 1 tablet by mouth in the morning and 1 tablet in the evening. Insulin Lispro, Human, 100 unit/mL cartridge inject 20 Units under the skin in the morning and 20 Units in the evening. SOCIAL HISTORYSocial History Socioeconomic History Marital status: Single Tobacco Use Smoking status: Never Smokeless tobacco: Never Vaping Use Vaping Use: Never used Substance and Sexual Activity Alcohol use: Not Currently Comment: quit 4-5 years ago Drug use: No Sexual activity: Not Currently Social Determinants of Health Financial Resource Strain: Low Risk (09/24/2022) Overall Financial Resource Strain (CARDIA) Difficulty of Paying Living Expenses: Not hard at all Food Insecurity: No Food Insecurity (09/24/2022) Hunger Vital Sign Worried About Running Out of Food in the Last Year: Never true Ran Out of Food in the Last Year: Never true Transportation Needs: No Transportation Needs (09/24/2022) PRAPARE - Transportation Lack of Transportation (Medical): No Lack of Transportation (Non-Medical): No Housing Stability: Unknown (09/24/2022) Housing Stability Vital Sign Unable to Pay for Housing in the Last Year: No Unstable Housing in the Last Year: No REVIEW OF SYSTEMS(-)=Negative,(+)=Positive General: (-) fever, (-) chills, (-) fatigueSkin: (-) rash, (-) lesionHEENT: (-) headache, (-) nasal discharge, (-) sore throatNeck: (-) pain, (-) difficulty swallowingHeme: (-) bleeding disorderResp: (-) cough, (-) shortness of breath, (-) dyspnea on exertionCardio: (-) chest pain, (-) palpitationsGI: (+) nausea, (+) vomiting, (-) abdominal pain, (-) constipation, (-) melenaGU: (-) dysuria, (-) hematuria, (-) increased frequencyEndo: (+) diabetes, (+) renal insufficiency , (-) thyroid diseaseNeuro: (-) numbness, (-) tingling, (-) weaknessBack: (-) pain, (-)spasmsMSS: (-) muscle pain, (-) joint painPsych: (-) anxiety, (-) depressionPHYSICAL EXAMINATIONVitals: 10/29/22 1700 10/29/22 1830 10/29/22 1900 10/29/22 2106 BP: (!) 168/89 130/89 139/71 113/62 BP Location: Right arm Pulse: 90 70 63 67 Resp: 15 18 16 16 Temp: 36.6 ?C (97.9 ?F) TempSrc: SpO2: 98% 94% 95% 91% Weight: Pain Scale: NumericalGeneral: alert and oriented x 4 ; no apparent distressHEENT: pupils equal, round, reactive to light; extraocular movements intact; oropharynx clear; moist mucous membranes, normocephalic atraumaticNeck: supple, no lymphadenopathy, no bruits, no JVD, full range of motionLungs: clear to auscultation bilaterally, no crackles or wheezesCardio: S1, S2 normal; no murmurs, rubs or gallops, regular rate and rhythmAbdomen: soft; non-tender; non-distended; normoactive bowel soundsExtremities: no clubbing, cyanosis, or edemaSkin: no rashesNeuro: cranial nerves II through XII grossly intact; sensation grossly intact; muscle strength 5 out of 5 in all four extremities, no focal deficitsLABS - reviewed pertinent labs as below:Recent Results (from the past 24 hour(s)) CBC WITH DIFF Collection Time: 10/29/22 12:30 PM Result Value Ref Range WBC 6.26 4.20 - 10.70 10*3/?L RBC 3.41 (L) 4.26 - 5.52 10*6/?L HGB 10.6 (L) 12.2 - 16.4 g/dL HCT 32.2 (L) 38.4 - 49.3 % MCV 94.4 81.7 - 95.6 fL MCH 31.1 26.1 - 32.7 pg MCHC 32.9 31.2 - 35.0 g/dL RDW-SD 55.8 (H) 38.5 - 51.6 fL RDW-CV 16.0 (H) 12.1 - 15.4 % PLT 85 (L) 150 - 328 10*3/?L MPV 10.5 9.8 - 13.0 fL IPF % 5.8 1.2 - 10.7 % NRBC/100 WBC 0.0 0.0 - 10.0 /100 WBCs NRBC x10^3 <0.01 10*3/?L GRAN MAT (NEUT) % 75.1 % IMM GRAN % 0.30 % LYMPH % 12.6 % MONO % 9.6 % EOS % 2.1 % BASO % 0.3 % GRAN MAT x10^3(ANC) 4.70 1.99 - 6.95 10*3/uL IMM GRAN x10^3 <0.03 0.00 - 0.06 10*3/uL LYMPH x10^3 0.79 (L) 1.09 - 3.23 10*3/uL MONO x10^3 0.60 0.36 - 1.02 10*3/uL EOS x10^3 0.13 0.06 - 0.53 10*3/uL BASO x10^3 <0.03 0.01 - 0.09 10*3/uL ELLIPTO/OVAL 2+ (A) (none) SCHISTOCYTES 1+ (A) SPHEROCYTES 1+ (A) COMP. METABOLIC PANEL (92853) Collection Time: 10/29/22 12:30 PM Result Value Ref Range NA 137 135 - 145 mmol/L K 3.7 3.5 - 5.0 mmol/L CL 94 (L) 98 - 108 mmol/L CO2 TOTAL 25 23 - 31 mmol/L AGAP 18 (H) 2 - 16 BUN 40 (H) 7 - 23 mg/dL GLUCOSE 336 (H) 70 - 110 mg/dL CREATININE 6.45 (H) 0.60 - 1.25 mg/dL TOTAL BILI 1.5 (H) 0.1 - 1.1 mg/dL CALCIUM 9.9 8.6 - 10.6 mg/dL T PROTEIN 8.8 (H) 6.3 - 8.2 g/dL ALBUMIN 4.5 3.5 - 5.0 g/dL ALK PHOS 153 (H) 34 - 122 U/L ALTv 15 5 - 50 U/L AST(SGOT) 21 13 - 40 U/L eGFR 9.4 mL/min/1.73m2 COVID-19 (ID NOW TESTING) Collection Time: 10/29/22 12:30 PM Specimen: NASOPHARYNGEAL SWAB Result Value Ref Range SARS-CoV-2 Rapid ID NOW Not Detected Not Detected LIPASE Collection Time: 10/29/22 12:30 PM Result Value Ref Range LIPASE 423 (H) 0 - 220 U/L TROPONIN I Collection Time: 10/29/22 12:30 PM Result Value Ref Range TROPONIN I 1.130 (H) <=0.034 ng/mL Glycosylated Hemoglobin (A1C) Collection Time: 10/29/22 12:30 PM Result Value Ref Range HGB A1C 10.1 (H) 4.0 - 5.7 % Prothrombin Time / INR Collection Time: 10/29/22 2:51 PM Result Value Ref Range PROTIME PATIENT 15.1 (H) 12.0 - 14.7 Seconds INR 1.2 aPTT Collection Time: 10/29/22 2:51 PM Result Value Ref Range APTT Patient 32 23 - 38 Seconds TROPONIN I Collection Time: 10/29/22 4:15 PM Result Value Ref Range TROPONIN I 0.852 (H) <=0.034 ng/mL Thyroid Stimulating Hormone (TSH) Collection Time: 10/29/22 4:15 PM Result Value Ref Range TSH 2.01 0.45 - 4.70 mIU/L POCT GLUCOSE (AUTOMATED) Collection Time: 10/29/22 6:15 PM Result Value Ref Range POCT GLU 349 (H) 70 - 110 mg/dL POCT GLUCOSE (AUTOMATED) Collection Time: 10/29/22 9:38 PM Result Value Ref Range POCT GLU 183 (H) 70 - 110 mg/dL Troponin I Collection Time: 10/29/22 9:59 PM Result Value Ref Range TROPONIN I 2.400 (H) <=0.034 ng/mL IMAGING - reviewed, pertinent results as below: No results found for this visit on 10/29/22.EKG: Normal sinus rhythm, left axis deviation, no ST or T wave changes.ASSESSMENT/PLANAndres Kali Cox is a 47 year old male with PMH as listed above, admitted to the hospital with:# NSTEMI# CAD s/p CABG# Hypertension# HyperlipidemiaMonitor on telemetry for dysrhythmiasCheck serial cardiac enzymesContinue home aspirin, Plavix, atenolol, nifedipine, LipitorHome telmisartan is nonformulary, start equivalent losartanContinue heparin dripCheck lipid profile, TSH, hemoglobin Z5vDqjizviivufdwsBejngvz medicine myocardial perfusion scan resulted today as normal myocardial perfusion with preserved EF and normal wall thickeningCardiology consultation, will maintain n.p.o. after midnight# ESRD on HD (MWF)Consult nephrology for hemodialysisResume home sevelamer# Diabetes mellitus type 2#Diabetic gastroparesisResume home insulinAdd sliding scale insulinStart PPI, prn Phenergan# SERGIO unable to tolerate CPAP, awareFENGI: Renal/diabetic, n.p.o. at midnightDVT ppx: heparin dripGI ppx: ProtonixFULL CODEDiagnosis and work up and finding and current plan was discussed with patient in detail and all question were answered and patient verballized understanding.This note was created using a voice-recognition transcribing system. Incorrect words or phrases may have been missed during proofreading. Please interpret accordingly. Jose R Delgado MD 10/29/2022 22:36 [facility] [address]-2Gckrdwm and physical rsoiDY3248-32-19N90:37:05History and physical noteTXT1.2.840.897150.1.13.104.2.7.2.01568 9|[id number] for patient tcha81759-7Gutobng and physical noteLN[address] Fm[id number] BPXENFQUEKZNMJZG9266-26-79S94:37:051.2.840 .157162.1.72.3.15|1.2.840.016632.1.13.104. [id number] Procedure Notes Date/Time Note Provider Source 2022-10-30 12:53:53 [id number]:53:53Procedure(s IM-INTERVENTI [facility] ): CORONARY ANGIOGRAPHY; LEFT CARDIOLOGY STAFF HEART CATH; CORONARY STENTPre-Procedure Diagnose(s): NSTEMI (non-ST elevated myocardial infarction)Post-Procedure Diagnose(s): NSTEMI (non-ST elevated myocardial infarction) Left Heart Cath/Coronary AngiographyDate of Service: 10/30/2022 12:54 PMFellow: Dr. King: Alexey. Present for the entire procedure Indication/Diagnosis: ACS ([place]/NSTEMI)Consent source: selfConsent type: indications/complications discussed with patient/legal guardian; written consent obtainedTime out completed: yesAseptic technique: ChlorprepLocal Anesthesia: 1% lidocaine without epinephrineSedation: fentanyl 75 mcg, Versed 1 mgAccess site: right femoral arteryClosure Method: Angio-SealSterile dressing: yesComplications: noneProcedures: The patient arrived the laborer shipyard in stable condition. After patient identification/verification, the patient was thereafter transferred onto the laborer shipyard table. After administering sedation, Time Out was done. Using Seldinger technique, the right femoral artery was accessed using a micropuncture kit. The access was upgraded a 6 Fr sheath. A J wire was then used to advance a 5 Fr JL 4.0 catheter to the ascending aorta. The JL 4.0 catheter was then used to cannulate the LM. Selective coronary angiography was done using several views. The JL catheter was then exchanged for a 5 Fr JR 4.0 catheter. A J wire was then used to cross the AV, and the catheter was advanced into the LV, where selective LHC/LVEDP was measuredThe JR 4.0 catheter was then used to cannulate the RCA and selective coronary angiography was done using multiple views . The JR 4.0 catheter was then used to cannulate the SVG to OM, and selective coronary angiography was done. The catheter was thereafter used to cannulate the LM to LAD graft, and selective coronary angiography was done suing multiple views. Diagnostic angiography was indicative of severe mLCx disease and thus a decision was reached to proceed with intervention. Anticoagulation was then administered. The diagnostic catheter was then exchanged for a a 6 FR EB 3.5 Guide catheter. The lesion was crossed using Finecross and wire escalation. A 1.5 Balloon was used to prepare the lesion, and thereafter, a 2.0 Balloon A 2.5 NC was later used , followed by a 2.75 [place] Balloon. A 2.5 x 23 mm Xience Skypoint Rx AZUCENA was then deployed across the lesion. A 3.5 NC was then used to post-dilate the stent. Final angiography was the then done. Findings:Coronary dominance: rightLeft main: Large, patent LAD: Large, proximal REHAB AID D1: Small to medium size, mild LI RI: Medium size, mild LILCX: Large, ectatic, proximal tortuosity with mild LI, mid REHAB AID ( Fine-cross with wire escalation; 1.5, 2.0, 2.0 NC Balloon; 2.75 [place] Balloon; 2.5 NC; 2.5 x 23 mm Xience Skypoint Rx AZUCENA; 3.5 NC; 0% residual stenosis) , mid to distal mild disease OM1: Small OM2: Medium size, proximal REHAB AID. Supplied by SVG OM3: Small RCA: Large, dominant, proximal mild LI, proximal to mid patent , distal mild LI PDA: Small to medium size, mild LI PLB: Medium size, proximal 50-60%, mid to distal mild LI Grafts:LUNSFORD to LAD: PatentSVG to OM: Patent LVEDP: 22 mmHg Right External Iliac angiogram: Patent Post-Procedure Sedation AddendumImmediately prior to start of sedation, the patient was evaluated and there was no change from the pre-procedure evaluation. I was present and directed medical care.The patient underwent moderate sedation for the procedure. The medications administered were recorded in the MAR; oxygenation, ventilation and circulation were monitored continuously and were recorded in the EMR. I evaluated the patient after the procedure.The patient was evaluated immediately as recovering from sedation. Complications: None Impression:Severe [place] disease Patent LUNSFORD to LADPatent SVG to OMPatent p-mRCA stent Severe mLCx disese. REHAB AID. Successful PCI with 2.5 x 23 mm Xience Rx AZUCENA. Plan:Monitor on Telemetry FloorASA 81 mg daily Brilinta 180 mg load given, continue 90 mg BID Aggressive medical managementIf symptoms recur consider FFR/IVUS guided intervention of PL Findings and plan discussed with patient Nelson Blackburn M.D.Interventional Cardiology Pager: [phone] [id number] dure [id number] lable for patient [id number] noteLNIM-INTERVENTIONAL CARDIOLOGY STAFFIM-INTERVENTIONAL CARDIOLOGY STAFF[address] [id number] 07-11-153:[id number]
--- NOTE | 2023-01-21 02:26 | EDPHYS ---
Physician Documentation [facility] Name: Chase Chacon Jr Age: 47 yrs Sex: Male : 1975 Arrival Date: 01/20/2023 Time: 23:45 Bed IW1 Private MD: ED Physician Mitchell Caraballo HPI: 01/21 00:38 This 47 yrs old Male presents to ER via Ambulatory with complaints of kb Constipation, Back Pain. 00:39 Pt reports rectal pain with bowel movements for over a month. States he has been seen kb by Dr Chavez several times, then referred to colorectal surgery who he saw last week and was told everything looked fine. States he is still having pain so he came in tonight. . Historical: - Allergies: 00:12 No Known Allergies; bp - PMHx: 00:12 Cataract; diabetes mellitus; Gastroparesis; hemodialysis; Hypertensive disorder; kidney bp failure; - PSHx: 00:12 heart bypass; Left arm dialysis fistula; bp - Immunization history:: Adult Immunizations up to date. - Social history:: Smoking status: Patient denies any tobacco usage or history of. ROS: 00:38 Constitutional: Negative for fever, chills, and weight loss, kb 00:38 Abdomen/GI: Positive for rectal pain, 00:38 All other systems are negative, Exam: 02:24 Constitutional: This is a well developed, well nourished patient who is awake, alert, kb and in no acute distress. Head/Face: Normocephalic, atraumatic. ENT: Moist Mucous membranes Cardiovascular: Regular rate Respiratory: Respirations even and unlabored. No increased work of breathing. Talking in full sentences Abdomen/GI: Soft, non-tender. No distention Back: No spinal tenderness. No costovertebral tenderness. Full range of motion. Skin: Warm, dry with normal turgor. Normal color. MS/ Extremity: Pulses equal, no cyanosis. Neurovascular intact. Full, normal range of motion. Neuro: Awake and alert, GCS 15, oriented to person, place, time, and situation. Moves all extremities. Normal gait. Vital Signs: 00:11 BP 161 / 82; Pulse 61; Resp 16; Temp 98; Pulse Ox 97% ; bp MDM: 01/20 23:51 Patient medically screened. kb 01/21 00:40 Data reviewed: vital signs, nurses notes. kb 00:40 Differential diagnosis: hemorrhoids, fissure. kb 02:24 ED course: Pt elected to leave prior to being placed in room for rectal exam. . kb Administered Medications: No medications were administered Disposition Summary: 01/21/23 02:25 Discharge Ordered Notes: Location: Home kb Condition: Stable kb Diagnosis - Rectal Pain kb Followup: kb - With: Emergency Department - When: As needed - Reason: Worsening of condition Followup: kb - With: Private Physician - When: 2 - 3 days - Reason: Recheck today's complaints, Continuance of care, Re-evaluation by your physician Forms: - Medication Reconciliation Form kb - Thank You Letter kb - Antibiotic Education kb - Prescription Opioid Use kb - Patient Portal Instructions kb - Leadership Thank You Letter kb Signatures: Meghna Ferrer FNP-C FNP-Surinder Apodaca, RN RN bp
--- NOTE | 2023-01-21 02:26 | ER ---
Nurse's Notes [facility] Name: Chase Chacon Jr Age: 47 yrs Sex: Male : 1975 Arrival Date: 01/20/2023 Time: 23:45 Bed IW1 Private MD: Diagnosis: Rectal Pain Presentation: 01/21 00:11 Chief complaint: Patient states: PAIN WITH BOWEL MOVEMENT, S/S x1 MONTH, SEEN BY GI AND bp DX WITH HEMORRHOIDS. Coronavirus screen: At this time, the client does not indicate any symptoms associated with coronavirus-19. Ebola Screen: No symptoms or risks identified at this time. Initial Sepsis Screen: Does the patient meet any 2 criteria? No. Patient's initial sepsis screen is negative. Does the patient have a suspected source of infection? No. Patient's initial sepsis screen is negative. Risk Assessment: Do you want to hurt yourself or someone else? Patient reports no desire to harm self or others. Onset of symptoms is unknown. 00:11 Method Of Arrival: Ambulatory bp 00:11 Acuity: LEON 3 bp Triage Assessment: 00:12 General: Appears uncomfortable, Behavior is cooperative, appropriate for age, anxious. bp Pain: Complains of pain in buttocks. GI: Reports PAIN WITH DEFECATION. Historical: - Allergies: 00:12 No Known Allergies; bp - PMHx: 00:12 Cataract; diabetes mellitus; Gastroparesis; hemodialysis; Hypertensive disorder; kidney bp failure; - PSHx: 00:12 heart bypass; Left arm dialysis fistula; bp - Immunization history:: Adult Immunizations up to date. - Social history:: Smoking status: Patient denies any tobacco usage or history of. Screenin:37 [facility] ED Fall Risk Assessment (Adult) History of falling in the last 3 months, bp including since admission No falls in past 3 months (0 pts). Abuse screen: Denies threats or abuse. Denies injuries from another. Nutritional screening: No deficits noted. Tuberculosis screening: No symptoms or risk factors identified. Vital Signs: 00:11 BP 161 / 82; Pulse 61; Resp 16; Temp 98; Pulse Ox 97% ; bp ED Course: 01/20 23:50 Patient arrived in ED. gm2 23:51 Meghna Ferrer FNP-C is [facility]. kb 23:51 Mitchell Caraballo MD is Attending Physician. kb 01/21 00:12 Triage completed. bp 00:12 Arm band placed on. bp 02:37 Patient has correct armband on for positive identification. bp 02:37 No provider procedures requiring assistance completed. Patient did not have IV access bp during this emergency room visit. Administered Medications: No medications were administered Outcome: 02:25 Discharge ordered by MD. kb 02:37 Discharged to home ambulatory, bp 02:37 Condition: stable 02:37 Discharge instructions given to patient, Instructed on discharge instructions, follow up and referral plans. Demonstrated understanding of instructions, follow-up care, 02:37 Patient left the ED. bp Signatures: Meghna Ferrer, SCHUYLER RAMÍREZ-Surinder Apodaca, RN RN Caroline Goemz 2
[2023-01-21 03:06] VITALS: BP 161/82; TEMP 98; O2SAT 97
== END 2023-01-21 02:37 | disposition home or self-care (01) ==
LOC: ER 23:45
DX: K62.89 Other specified diseases of anus and rectum (principal)
CPT/HCPCS: 99282

== ENCOUNTER 2023-03-11 06:22 | Day surgery (SDC) | payer OTHER ==
[2023-03-07 13:18] LABS: Protime INR 1.27
[2023-03-07 13:30] LABS: Potassium 3.6 mEq/L (3.5-5.1)
[2023-03-07 14:37] LABS: Absolute Lymphocytes (CBC) 0.8 K/uL (0.7-4.9); Hematocrit 27.8 % (39.6-49.0); Lymphocytes % 18.3 % (15.3-44.8); MCV 94.8 fL (80-100); MPV 7.8 fL (7.6-11.3); Platelets 49 thou/uL (152-406); RBC Red Blood Cell Count 2.93 M/uL (4.33-5.43)
[2023-03-07 16:25] LABS: Platelet Estimate DECR; White Blood Cell Scan OK (OK)
[2023-03-07 16:26] LABS: Blood Morphology Comment NOT SEEN (NOT SEEN)
[2023-03-11] MEDS: NA CHLORIDE 0.9% 500 ML ONE ×2 (06:51→07:33)
[2023-03-11] MEDS ORDERED: propofoL 200 MG/20 ML VIAL IV ONE ×2 (07:24→07:25)
[2023-03-11] MEDS ORDERED: LIDOCAINE 1% MPF 5 ML VIAL ONE (07:24)
[2023-03-11 09:34] VITALS: BP 130/66; TEMP 97; O2SAT 97
== END 2023-03-11 09:30 | disposition home or self-care (01) ==
LOC: OR 06:22
PROVIDERS: ATTEND Internal Medicine Gastroenterology
PROC: 0DBF8ZX Excision of Right Large Intestine, Via Natural or Artificial Opening Endoscopic, Diagnostic (ICD-10-PCS; 2023-03-11)
PROC: 0DB68ZX Excision of Stomach, Via Natural or Artificial Opening Endoscopic, Diagnostic (ICD-10-PCS; 2023-03-11)
PROC: 0DB88ZX Excision of Small Intestine, Via Natural or Artificial Opening Endoscopic, Diagnostic (ICD-10-PCS; 2023-03-11)
PROC: 0DBG8ZX Excision of Left Large Intestine, Via Natural or Artificial Opening Endoscopic, Diagnostic (ICD-10-PCS; principal; 2023-03-11 07:30)
PROC: 0DBP8ZX Excision of Rectum, Via Natural or Artificial Opening Endoscopic, Diagnostic (ICD-10-PCS; 2023-03-11 07:30)
DX: R10.13 Epigastric pain (principal); K92.1 Melena; K21.9 Gastro-esophageal reflux disease without esophagitis; R60.0 Localized edema; K26.9 Duodenal ulcer, unspecified as acute or chronic, without hemorrhage or perforation; R63.0 Anorexia; R11.2 Nausea with vomiting, unspecified; R19.7 Diarrhea, unspecified; R63.4 Abnormal weight loss; K57.30 Diverticulosis of large intestine without perforation or abscess without bleeding; K64.8 Other hemorrhoids; K31.9 Disease of stomach and duodenum, unspecified; K29.50 Unspecified chronic gastritis without bleeding; Z68.28 Body mass index [BMI] 28.0-28.9, adult; K31.89 Other diseases of stomach and duodenum
CPT/HCPCS: 85025; 80048; 36415; 88312; 85610; 82947; 88305; 85730; 45378; 43239; J2704 ×2; J2001; J7040; 88304

== ENCOUNTER 2023-07-01 03:31 | Emergency (ER) | payer OTHER ==
--- NOTE | 2023-07-01 04:06 | ER ---
Nurse's Notes [facility] Name: Chase Chacon Jr Age: 48 yrs Sex: Male : 1975 Arrival Date: 07/01/2023 Time: 03:31 Bed 6 Private MD: Diagnosis: Abrasion of left ear;Bleeding from left ear canal, Cerumen left ear canal Presentation: 06/30 03:50 Chief complaint: Patient states: woke up at 0230 this morning and had blood coming out cm10 of left ear. Pt denies any pain. Coronavirus screen: Client denies travel out of the [place] in the last 14 days. At this time, the client does not indicate any symptoms associated with coronavirus-19. Ebola Screen: Patient denies travel to an Ebola-affected area in the 21 days before illness onset. No symptoms or risks identified at this time. Initial Sepsis Screen: Does the patient meet any 2 criteria? No. Patient's initial sepsis screen is negative. Does the patient have a suspected source of infection? No. Patient's initial sepsis screen is negative. Risk Assessment: Do you want to hurt yourself or someone else? Patient reports no desire to harm self or others. Onset of symptoms was July 01, 2023. 03:50 Method Of Arrival: Ambulatory cm10 03:50 Acuity: LEON 4 cm10 Triage Assessment: 03:52 General: Appears in no apparent distress. comfortable, Behavior is calm, cooperative. cm10 Pain: Denies pain. EENT: Reports ringing in left ear Bloody drainage from left ear. Neuro: No deficits noted. Level of Consciousness is awake, alert, obeys commands, Oriented to person, place, time, situation. Cardiovascular: No deficits noted. Patient's skin is warm and dry. Respiratory: No deficits noted. Airway is patent Respiratory effort is even, unlabored, Respiratory pattern is regular, symmetrical. Musculoskeletal: No deficits noted. Range of motion: intact in all extremities. Historical: - Allergies: 03:51 No Known Allergies; cm10 - PMHx: 03:51 Cataract; diabetes mellitus; Gastroparesis; hemodialysis; Hypertensive disorder; kidney cm10 failure; - PSHx: 03:51 heart bypass; Left arm dialysis fistula; cm10 - Immunization history:: Adult Immunizations up to date. - Infectious Disease History:: Denies. - Social history:: Smoking status: Patient denies any tobacco usage or history of. - Family history:: not pertinent. Screenin:53 [facility] ED Fall Risk Assessment (Adult) History of falling in the last 3 months, cm10 including since admission No falls in past 3 months (0 pts) Confusion or Disorientation No (0 pts) Intoxicated or Sedated No (0 pts) Impaired Gait No (0 pts) Mobility Assist Device Used No (0 pt) Altered Elimination No (0 pt) Score/Fall Risk Level 0 - 2 = Low Risk Oriented to surroundings, Maintained a safe environment, Hourly rounding (assess needs \T\ fall precautionary measures) done. Abuse screen: Denies threats or abuse. Denies injuries from another. Nutritional screening: No deficits noted. Tuberculosis screening: No symptoms or risk factors identified. Vital Signs: 03:50 Weight 88 kg; Height 5 ft. 6 in. ; Pain 0/10; cm10 04:08 BP 186 / 88; Pulse 83; Resp 18; Temp 98.6; Pulse Ox 98% on R/A; Weight 87.54 kg; Height oe 5 ft. 6 in. ; 04:08 Body Mass Index 31.15 (87.54 kg, 167.64 cm) oe 03:50 Pain Scale: Adult cm10 Sadler Coma Score: 07:13 Eye Response: spontaneous(4). Motor Response: obeys commands(6). Verbal Response: sp4 oriented(5). Total: 15. ED Course: 03:35 Patient arrived in ED. gm2 03:51 Triage completed. cm10 03:51 Arm band placed on Patient placed in an exam room, on a stretcher. cm10 03:53 Mitchell Caraballo MD is Attending Physician. sp4 03:53 Patient has correct armband on for positive identification. Bed in low position. Call cm10 light in reach. Provided Education on: ER process and procedures. Cardiac monitoring not applicable on this patient. 04:05 Shobha Bailon MD is Referral Physician. sp4 04:16 No provider procedures requiring assistance completed. Patient did not have IV access rv during this emergency room visit. Administered Medications: No medications were administered Medication: 03:53 VIS not applicable for this client. cm10 Outcome: 04:05 Discharge ordered by . sp4 04:16 Discharged to home ambulatory, rv 04:16 Condition: good 04:16 Discharge instructions given to patient, Instructed on discharge instructions, follow up and referral plans. Demonstrated understanding of instructions, follow-up care, 04:16 Patient left the ED. rv Signatures: Luis Goldstein Ronaldo, RN RN rv Mitchell Caraballo MD MD sp4 Klaudia Swan RN RN cm10 Caroline Falcon 2
--- NOTE | 2023-07-01 04:06 | EDPHYS ---
Physician Documentation [facility] Name: Chase Chacon Jr Age: 48 yrs Sex: Male : 1975 Arrival Date: 07/01/2023 Time: 03:31 Bed 6 Private MD: ED Physician Mitchell Caraballo HPI: 06/30 03:53 This 48 yrs old Male presents to ER via Ambulatory with complaints of Drainage sp4 From Ear, Ear Pain, BLOOD COMING OUT OF EAR. 07:13 48-year-old male presents with acute bleeding from the left ear canal. This started sp4 acutely this morning. Historical: - Allergies: 03:51 No Known Allergies; cm10 - PMHx: 03:51 Cataract; diabetes mellitus; Gastroparesis; hemodialysis; Hypertensive disorder; kidney cm10 failure; - PSHx: 03:51 heart bypass; Left arm dialysis fistula; cm10 - Immunization history:: Adult Immunizations up to date. - Infectious Disease History:: Denies. - Social history:: Smoking status: Patient denies any tobacco usage or history of. - Family history:: not pertinent. ROS: 07:13 Constitutional: Negative for fever, chills, and weight loss, ENT: Negative for injury, sp4 pain, and discharge, positive bleeding from the left ear canal 07:13 All other systems are negative, Exam: 07:13 Constitutional: This is a well developed, well nourished patient who is awake, alert, sp4 and in no acute distress. Head/Face: Normocephalic, atraumatic. Eyes: Pupils equal round and reactive to light, extra-ocular motions intact. Lids and lashes normal. Conjunctiva and sclera are not injected. Cornea within normal limits. Periorbital areas with no swelling, redness, or edema. ENT: Nares patent. No nasal discharge, no septal abnormalities noted. right ear - Tympanic membrane are normal and external auditory canal are clear. Oropharynx with no redness, swelling, or masses, exudates, or evidence of obstruction, uvula midline. Mucous membranes moist. Left ear canal contains mild amount of earwax, there is also bleeding from the roof of the ear canal without significant infection or exudate. Bleeding is self-limited. Neck: Trachea midline, no thyromegaly or masses palpated, and no cervical lymphadenopathy. Supple, full range of motion without nuchal rigidity, or vertebral point tenderness. Chest/axilla: Normal chest wall appearance and motion. Nontender with no deformity. No lesions are appreciated. Cardiovascular: Regular rate and rhythm with a normal S1 and S2. No gallops, murmurs, or rubs. Normal PMI, no JVD. No pulse deficits. Positive left upper arm dialysis fistula Respiratory: Lungs have equal breath sounds bilaterally, clear to auscultation and percussion. No rales, rhonchi or wheezes noted. No increased work of breathing, no retractions or nasal flaring. Abdomen/GI: Soft, with normal bowel sounds. No distension or tympany. No guarding or rebound. No evidence of tenderness throughout. Back: No spinal tenderness. No costovertebral tenderness. Skin: Warm, dry with normal turgor. Normal color with no rashes, no lesions, and no evidence of cellulitis. MS/ Extremity: Pulses equal, no cyanosis. Neurovascular intact. Full, normal range of motion. Neuro: Awake and alert, GCS 15, oriented to person, place, time, and situation. Cranial nerves II-XII grossly intact. Motor strength 5/5 in all extremities. Sensory grossly intact. Psych: Awake, alert, with orientation to person, place and time. Behavior, mood, and affect are within normal limits Vital Signs: 03:50 Weight 88 kg; Height 5 ft. 6 in. ; Pain 0/10; cm10 04:08 BP 186 / 88; Pulse 83; Resp 18; Temp 98.6; Pulse Ox 98% on R/A; Weight 87.54 kg; Height oe 5 ft. 6 in. ; 04:08 Body Mass Index 31.15 (87.54 kg, 167.64 cm) oe 03:50 Pain Scale: Adult cm10 Edward Coma Score: 07:13 Eye Response: spontaneous(4). Motor Response: obeys commands(6). Verbal Response: sp4 oriented(5). Total: 15. MDM: 03:54 Patient medically screened. sp4 07:17 Differential diagnosis: otitis media, otitis externa, ruptured TM, foreign body, acute sp4 otalgia, cerumen impaction. Data reviewed: vital signs, nurses notes, old medical records. ED course: Small amount of blood in the left ear canal at the roof. Probably abrasion or small abscess. No other significant findings. Patient stable for discharge home. Advised no Q-tips in the ear canal. Administered Medications: No medications were administered Disposition Summary: 07/01/23 04:05 Discharge Ordered Notes: Please see Dr. Shobha Bailon for Additional exam Location: Home sp4 Problem: new sp4 Symptoms: have improved sp4 Condition: Stable sp4 Diagnosis - Abrasion of left ear sp4 - Bleeding from left ear canal, Cerumen left ear canal sp4 Followup: sp4 - With: Shobha Bailon MD - When: 7 - 10 days - Reason: Recheck today's complaints Discharge Instructions: - Discharge Summary Sheet sp4 - Medical Screening Exam sp4 Forms: - Patient Portal Instructions sp4 Signatures: Mitchell Caraballo MD MD sp4 Klaudia Swan RN RN cm10
[2023-07-01 10:06] VITALS: BP 186/88; TEMP 98.6; O2SAT 98
== END 2023-07-01 04:16 | disposition home or self-care (01) ==
LOC: ER 03:31
DX: S00.412A Abrasion of left ear, initial encounter (principal); H61.22 Impacted cerumen, left ear
CPT/HCPCS: 99282

== ENCOUNTER 2023-07-30 07:52 | Emergency (ER) | payer OTHER ==
--- NOTE | 2023-07-30 08:23 | RAD REPORT ---
EXAM DESCRIPTION: CT - CTHCSPWOC - 07/30/2023 8:06 am CLINICAL HISTORY: Trauma, head and neck injury. TRAUMA COMPARISON: No comparisons TECHNIQUE: Axial 5 mm thick images of the head were obtained. Axial 2 mm thick images of the cervical spine were obtained with sagittal and coronal reconstruction images generated and reviewed. All CT scans are performed using dose optimization technique as appropriate and may include automated exposure control or mA/KV adjustment according to patient size. FINDINGS: CT HEAD WITHOUT CONTRAST: No acute hemorrhage, hydrocephalus or extra-axial collection is identified.No areas of brain edema or midline shift. The paranasal sinuses and mastoids are clear.The calvarium is intact. 2 cm right frontal scalp hemato ma. CT CERVICAL SPINE WITHOUT CONTRAST: No fracture or subluxation.No prevertebral soft tissues swelling is identified. Prominent atheroscler osis is seen. IMPRESSION: No acute intracranial or cervical spine findings.
--- NOTE | 2023-07-30 08:24 | RAD REPORT ---
EXAM DESCRIPTION: CT - CTFB CLINICAL HISTORY: TRAUMA COMPARISON: No comparisons TECHNIQUE: Axial 2 mm thick images of the face were obtained with sagittal and coronal reconstructio n images. All CT scans are performed using dose optimization technique as appropriate and may include automated exposure control or mA/KV adjustment according to patient size. FINDINGS: No acute facial bone fracture is seen.The mandible is intact. The globes and orbital contents are grossly unremarkable.The paranasal sinuses and mastoids are clear . 2 cm right frontal scalp hematoma. IMPRESSION: Negative for facial bone fracture.
[2023-07-30 08:36] LABS: Absolute Eosinophils 0.2 K/uL (0-0.5); Absolute Lymphocytes (CBC) 1.2 K/uL (0.7-4.9); Absolute Monocytes 0.5 K/uL (0.1-1.3); Absolute Neutrophil 3.7 K/uL (1.8-8.0); Basophils % 0.5 % (0-1.3); Eosinophils % 3.1 % (0-4.4); Hematocrit 25.5 % (39.6-49.0); Hemoglobin 8.4 g/dL (13.6-17.9); Lymphocytes % 21.6 % (15.3-44.8); MCH 29.9 pg (27.0-35.0); MCHC 32.9 g/dL (32.0-36.0); MCV 90.9 fL (80-100); MPV 8.8 fL (7.6-11.3); Monocytes % 8.2 % (3.3-12.3); Neutrophils % 66.6 % (41.7-73.7); Platelets 86 thou/uL (152-406); RBC Red Blood Cell Count 2.81 M/uL (4.33-5.43); Red Cell Distribution Width 18.1 % (12.1-15.2)
--- NOTE | 2023-07-30 09:05 | RAD REPORT ---
EXAM DESCRIPTION: RAD - Chest Single View - 07/30/2023 8:53 am CLINICAL HISTORY: TRAUMA Chest pain. COMPARISON: Chest Single View dated 11/23/2022; Chest Single View dated 06/28/2022; Chest Single View d ated 04/24/2022; Chest Pa And Lat (2 Views) dated 12/18/2021 FINDINGS: Portable technique limits examination quality. Mild bilateral pulmonary opacities suggest pulmonary edema. The heart is moderately enlarged. Sternot jaciel wires. IMPRESSION: Mild to moderate CHF versus volume overload.
[2023-07-30 09:21] LABS: ALT/SGPT 15 U/L (16-61); Albumin 3.3 g/dL (3.4-5.0); Albumin/Globulin Ratio 0.8 (1.1-1.8); Alkaline Phosphatase 160 U/L (45-117); Anion Gap 8.7 mEq/L (5.0-15.0); Anisocytosis 1+; BUN Blood Urea Nitrogen 39 mg/dL (7-18); Bicarbonate 27 mEq/L (21-32); Bilirubin Direct 0.5 mg/dL (0-0.2); Bilirubin Indirect, Calculated 0.4 mg/dL (0.2-0.8); Bilirubin Total 0.9 mg/dL (0.2-1.0); Blood Morphology Comment NOTED (NOT SEEN); Globulin 4.2 g/dL (2.3-3.5); Glomerular Filtration Rate 11 ml/min (=/>90); Glucose Level 133 mg/dL (74-106); Magnesium 1.9 mg/dL (1.6-2.4); NT PRO-BNP 85361 pg/mL (<125); Platelet Estimate DECR; Potassium 3.7 mEq/L (3.5-5.1); Protein, Total 7.5 g/dL (6.4-8.2); Sodium Level 134 mEq/L (136-145); Troponin High Sensitivity 30.4 pg/mL (<58.9); White Blood Cell Scan OK (OK)
[2023-07-30 09:27] LABS: AST/SGOT < 10 U/L (15-37)
--- NOTE | 2023-07-30 09:46 | ER ---
Nurse's Notes [facility] Name: Chase Chacon Jr Age: 48 yrs Sex: Male : 1975 Arrival Date: 07/30/2023 Time: 07:52 Bed 3 Private MD: Diagnosis: Near syncope, scalp hematoma, facial contusion, closed head injury Presentation: 07/29 07:58 Chief complaint: EMS states: patient was at dialysis when he reported a camping feeling ap3 then had a syncopal episode, falling forward onto the floor, hitting his head. patient presents to the ED with a hematoma on his right side of his forehead. patient is A/O X's 4 on arrival. Coronavirus screen: At this time, the client does not indicate any symptoms associated with coronavirus-19. Ebola Screen: No symptoms or risks identified at this time. Initial Sepsis Screen: Does the patient meet any 2 criteria? No. Patient's initial sepsis screen is negative. Does the patient have a suspected source of infection? No. Patient's initial sepsis screen is negative. Risk Assessment: Do you want to hurt yourself or someone else? Patient reports no desire to harm self or others. Onset of symptoms was July 30, 2023. Care prior to arrival: Cervical collar in place. Placed on backboard. Glucose check: 146. 07:58 Method Of Arrival: EMS: [facility] ap3 07:58 Acuity: LEON 2 ap3 08:17 Care prior to arrival: IV initiated. 18 GA, in the right forearm. ap3 Triage Assessment: 08:04 General: Appears in no apparent distress. Behavior is calm, cooperative. Pain: ap3 Complains of pain in forehead Pain currently is 1 out of 10 on a pain scale. Pain began suddenly. Neuro: Level of Consciousness is awake, alert, obeys commands, Oriented to person, place, time, situation, Reports a syncopal episode. Cardiovascular: Patient's skin is warm and dry. Cardiovascular: Dialysis shunt: in the dorsal aspect of left forearm, dialysis port is still accessed at this time. EMS reports that the dialysis nurse informed them they would come to ED to de-access. . Respiratory: Airway is patent Respiratory effort is even, unlabored, Respiratory pattern is regular, symmetrical. Historical: - Allergies: 08:03 No Known Allergies; ap3 - PMHx: 08:03 Cataract; diabetes mellitus; Gastroparesis; hemodialysis; Hypertensive disorder; kidney ap3 failure; - PSHx: 08:03 heart bypass; Left arm dialysis fistula; ap3 - Immunization history:: Client reports having NOT received the Covid vaccine. Flu vaccine is up to date. - Infectious Disease History:: Denies. - Social history:: Smoking status: Patient denies any tobacco usage or history of. Screenin:06 Abuse screen: Denies threats or abuse. Nutritional screening: No deficits noted. ap3 Tuberculosis screening: No symptoms or risk factors identified. Vital Signs: 07:58 BP 129 / 82; Pulse 65; Resp 19; Pulse Ox 95% on R/A; Weight 82 kg; Height 5 ft. 6 in. ; ap3 Pain 1/10; 08:15 BP 137 / 71; Pulse 60; Resp 18; Pulse Ox 97% on R/A; ap3 09:27 BP 128 / 77; Pulse 63; Resp 19; Pulse Ox 96% on R/A; ap3 07:58 Body Mass Index 29.18 (82.00 kg, 167.64 cm) ap3 07:58 Pain Scale: Adult ap3 Edward Coma Score: 08:09 Eye Response: spontaneous(4). Motor Response: obeys commands(6). Verbal Response: ap3 oriented(5). Total: 15. 08:15 Eye Response: spontaneous(4). Motor Response: obeys commands(6). Verbal Response: ap3 oriented(5). Total: 15. 09:27 Eye Response: spontaneous(4). Motor Response: obeys commands(6). Verbal Response: ap3 oriented(5). Total: 15. ED Course: 07:55 Patient arrived in ED. bd 07:57 Elodia Chavez MD is Attending Physician. sp3 08:03 Triage completed. ap3 08:06 CT Head C Spine In Process Unspecified. EDMS 08:06 Facial Bones W/O Con CT In Process Unspecified. EDMS 08:06 Arm band placed on right wrist. ap3 08:06 Patient has correct armband on for positive identification. Bed in low position. Call ap3 light in reach. Side rails up X2. shelter monitor on. Pulse ox on. NIBP on. 08:08 Alicia Diop, RN is Primary Nurse. ap3 08:17 Maintain EMS IV. Dressing intact. Good blood return noted. Site clean \T\ dry. Gauge \T\ ap 3 site: 18g right forearm. 08:17 Initial lab(s) drawn, by me, sent to lab. ap3 08:25 EKG done, by ED staff, reviewed by Elodia Chavez MD. ap3 08:55 XRAY Chest (1 view) In Process Unspecified. EDMS Administered Medications: No medications were administered Outcome: 09:45 Discharge ordered by . sp3 11:30 Patient left the ED. rs5 Signatures: Dispatcher [employer] EDMS Sravani Galaviz Amanda, RN RN ap3 Elodia Chavez MD MD sp3 Nicko Miller, RN RN rs5
--- NOTE | 2023-07-30 09:46 | EDPHYS ---
Physician Documentation [facility] Name: Chase Chacon Jr Age: 48 yrs Sex: Male : 1975 Arrival Date: 07/30/2023 Time: 07:52 Bed 3 Private MD: ED Physician Elodia Chavez HPI: 07/29 08:02 This 48 yrs old Male presents to ER via Unassigned with complaints of fall and sp3 near syncope. 08:02 48-year-old male with a history of diabetes, end-stage renal disease, hypertension and sp3 well-documented medical history in the medical record now presents via EMS for facial injury secondary to a fall incurred while at dialysis, during dialysis after he got up and had a near syncopal event. Patient thinks it might have been due to low blood sugar however blood sugar was within normal limits for EMS. Patient states that he "may have been knocked out" after he fell. Patient has nose and forehead injuries as reported by EMS. Patient endorses headache and facial pain but denies neck pain, chest pain, back pain, shortness of breath, abdominal pain, extremity pain or any other pain or reported injuries. Remainder of ROS negative. Patient still has catheter in his left upper extremity fistula and dialysis nurse from the outside facility dialysis center is coming to remove it.. Historical: - Allergies: 08:03 No Known Allergies; ap3 - PMHx: 08:03 Cataract; diabetes mellitus; Gastroparesis; hemodialysis; Hypertensive disorder; kidney ap3 failure; - PSHx: 08:03 heart bypass; Left arm dialysis fistula; ap3 - Immunization history:: Client reports having NOT received the Covid vaccine. Flu vaccine is up to date. - Infectious Disease History:: Denies. - Social history:: Smoking status: Patient denies any tobacco usage or history of. ROS: 08:04 Constitutional: Negative for fever, chills, and weight loss, Eyes: Negative for injury, sp3 pain, redness, and discharge, Neck: Negative for injury, pain, and swelling, Cardiovascular: Negative for chest pain, palpitations, and edema, Respiratory: Negative for shortness of breath, cough, wheezing, and pleuritic chest pain, Abdomen/GI: Negative for abdominal pain, nausea, vomiting, diarrhea, and constipation, Back: Negative for injury and pain, MS/Extremity: Negative for injury and deformity, Skin: Negative for injury, rash, and discoloration, Neuro: Negative for headache, weakness, numbness, tingling, and seizure, Psych: Negative for depression, anxiety, suicide ideation, homicidal ideation, and hallucinations, Allergy/Immunology: Negative for hives, rash, and allergies, Endocrine: Negative for neck swelling, polydipsia, polyuria, polyphagia, and marked weight changes, Hematologic/Lymphatic: Negative for swollen nodes, abnormal bleeding, and unusual bruising, 08:04 All other systems are negative, Exam: 08:04 Constitutional: This is a well developed, well nourished patient who is awake, alert, sp3 and in no acute distress. Eyes: Pupils equal round and reactive to light, extra-ocular motions intact. Lids and lashes normal. Conjunctiva and sclera are non-icteric and not injected. Cornea within normal limits. Periorbital areas with no swelling, redness, or edema. ENT: Nares patent. No nasal discharge, no septal abnormalities noted. External auditory canals are clear. Oropharynx with no redness, swelling, or masses, exudates, or evidence of obstruction, uvula midline. Mucous membranes moist. Neck: Trachea midline, no thyromegaly or masses palpated, and no cervical lymphadenopathy. Supple, full range of motion without nuchal rigidity, or vertebral point tenderness. No Meningismus. Chest/axilla: Normal chest wall appearance and motion. Nontender with no deformity. No lesions are appreciated. Cardiovascular: Regular rate and rhythm with a normal S1 and S2. No gallops, murmurs, or rubs. Normal PMI, no JVD. No pulse deficits. Respiratory: Lungs have equal breath sounds bilaterally, clear to auscultation and percussion. No rales, rhonchi or wheezes noted. No increased work of breathing, no retractions or nasal flaring. Abdomen/GI: Soft, non-tender, with normal bowel sounds. No distension or tympany. No guarding or rebound. No evidence of tenderness throughout. Back: No spinal tenderness. No costovertebral tenderness. Full range of motion. Skin: Warm, dry with normal turgor. Normal color with no rashes, no lesions, and no evidence of cellulitis. MS/ Extremity: Pulses equal, no cyanosis. Neurovascular intact. Full, normal range of motion. Neuro: Awake and alert, GCS 15, oriented to person, place, time, and situation. Cranial nerves II-XII grossly intact. Motor strength 5/5 in all extremities. Sensory grossly intact. Cerebellar exam normal. Normal gait. Psych: Awake, alert, with orientation to person, place and time. Behavior, mood, and affect are within normal limits. 08:05 Head/face: Patient has large 3 cm diameter hematoma to the forehead just right of sp3 midline above his eyebrow. No ocular injury. Patient does have nasal swelling but no septal hematoma. No periorbital injury noted. Extraocular movements are intact. No midline neck pain. Patient is in a c-collar.. 08:29 ECG was reviewed by the Attending Physician. EKG demonstrates normal sinus rhythm at 68 sp3 bpm with a first-degree AV block with a WI interval of 226 and QTc of 531, slightly leftward axis and normal axis ST segments without evidence of acute ischemia. Vital Signs: 07:58 BP 129 / 82; Pulse 65; Resp 19; Pulse Ox 95% on R/A; Weight 82 kg; Height 5 ft. 6 in. ; ap3 Pain 1/10; 08:15 BP 137 / 71; Pulse 60; Resp 18; Pulse Ox 97% on R/A; ap3 09:27 BP 128 / 77; Pulse 63; Resp 19; Pulse Ox 96% on R/A; ap3 07:58 Body Mass Index 29.18 (82.00 kg, 167.64 cm) ap3 07:58 Pain Scale: Adult ap3 Edward Coma Score: 08:09 Eye Response: spontaneous(4). Motor Response: obeys commands(6). Verbal Response: ap3 oriented(5). Total: 15. 08:15 Eye Response: spontaneous(4). Motor Response: obeys commands(6). Verbal Response: ap3 oriented(5). Total: 15. 09:27 Eye Response: spontaneous(4). Motor Response: obeys commands(6). Verbal Response: ap3 oriented(5). Total: 15. MDM: 07:57 Patient medically screened. sp3 08:05 Data reviewed: vital signs, nurses notes, old medical records, lab test result(s), EKG, sp3 radiologic studies. ED course: 48-year-old male with PMH above now with near syncope and fall with facial injuries. Will obtain CT scan of the head, C-spine and facial bones as well as general labs and EKG and troponin. If workup negative, we will safely discharge patient home and he can coordinate with his dialysis center on his next dialysis treatment. I am not highly suspicious for intracranial hemorrhage given his normal neurological exam however he does have a large hematoma and will need wound care.. 09:44 ED course: I spoke to Dr. Mccoy patient's lift manager. We will be sending him back sp3 to dialysis via ambulance to finish his dialysis as he still has the cannulation in his left upper extremity. Scans are negative for trauma other than the hematoma. Patient is feeling better. We will safely discharge him to complete his dialysis and then subsequently he will be discharged home.. 07/29 08:00 Order name: Basic Metabolic Panel; Complete Time: 09:34 3 07/29 08:00 Order name: CBC with Diff; Complete Time: 09:34 3 07/29 08:01 Order name: LFT's; Complete Time: 09:34 3 07/29 08:01 Order name: Magnesium; Complete Time: 09:34 3 07/29 08:01 Order name: NT PRO-BNP; Complete Time: 09:34 3 07/29 08:01 Order name: Troponin HS; Complete Time: 09:34 3 07/29 08:43 Order name: CBC Smear Scan; Complete Time: 09:34 [facility] 07/29 08:00 Order name: CT Head C Spine; Complete Time: 08:30 3 07/29 08:00 Order name: XRAY Chest (1 view); Complete Time: 09:08 3 07/29 08:00 Order name: Facial Bones W/O Con CT; Complete Time: 08:30 3 07/29 08:01 Order name: EKG; Complete Time: 08:01 3 07/29 08:00 Order name: Labs collected and sent; Complete Time: 08:51 3 07/29 08:01 Order name: Cardiac monitoring; Complete Time: 08:07 3 07/29 08:01 Order name: EKG - Nurse/Tech; Complete Time: 08:25 3 07/29 08:01 Order name: IV Saline Lock; Complete Time: 08:18 3 07/29 08:01 Order name: Labs collected and sent; Complete Time: 08:18 sp3 07/29 08:01 Order name: O2 Sat Monitoring; Complete Time: 08:07 sp3 Administered Medications: No medications were administered Disposition Summary: 07/30/23 09:45 Discharge Ordered Notes: Location: Home sp3 Condition: Stable sp3 Diagnosis - Near syncope, scalp hematoma, facial contusion, closed head injury sp3 Followup: sp3 - With: Private Physician - When: Upon discharge from the Emergency Department - Reason: Continuance of care Discharge Instructions: - Discharge Summary Sheet sp3 - Hematoma sp3 - Dialysis sp3 Forms: - Medication Reconciliation Form sp3 - Antibiotic Education sp3 - Prescription Opioid Use sp3 - Patient Portal Instructions sp3 - Leadership Thank You Letter sp3 Signatures: Dispatcher [employer] EDAlicia Salaazr RN RN ap3 Elodia Chavez MD MD sp3 Corrections: (The following items were deleted from the chart) 08:00 08:00 Chest Single View+RAD.RAD.BRZ ordered. [facility] EDMS 08:01 08:01 Facial Bones W/ MPR+CT.RAD.BRZ ordered. [facility] EDMS 08:04 08:02 48-year-old male with a history of diabetes, end-stage renal disease, sp3 hypertension and well-documented medical history in the medical record now presents via EMS for facial injury secondary to a fall incurred while at dialysis, during dialysis after he got up and had a near syncopal event. Patient thinks it might have been due to low blood sugar however blood sugar was within normal limits for EMS. Patient states that he "may have been knocked out" after he fell. Patient has nose and forehead injuries as reported by EMS. Patient endorses headache and facial pain but denies neck pain, chest pain, back pain, shortness of breath, abdominal pain, extremity pain or any other pain or reported injuries. Remainder of ROS negative.. sp3
[2023-07-30 11:51] VITALS: BP 128/77; O2SAT 96
== END 2023-07-30 11:30 | disposition home or self-care (01) ==
LOC: ER 07:52
DX: S00.03XA Contusion of scalp, initial encounter (principal); S00.83XA Contusion of other part of head, initial encounter; E11.22 Type 2 diabetes mellitus with diabetic chronic kidney disease; I12.0 Hypertensive chronic kidney disease with stage 5 chronic kidney disease or end stage renal disease; N18.6 End stage renal disease; Z99.2 Dependence on renal dialysis; Z95.1 Presence of aortocoronary bypass graft; Z28.310 Unvaccinated for COVID-19
CPT/HCPCS: 36415; 70450; 70486; 71045; 72125; 76377; 80048; 80076; 83735; 83880; 84484; 85025; 93005

== ENCOUNTER 2023-08-18 11:56 | Emergency (ER) | payer OTHER ==
--- NOTE | 2023-08-18 12:21 | RAD REPORT ---
EXAM DESCRIPTION: RAD - Chest Single View - 08/18/2023 12:06 pm CLINICAL HISTORY: COUGH Chest pain. COMPARISON: Chest Single View dated 08/07/2023; Chest Single View dated 07/30/2023; Chest Single View dated 11/23/2022; Chest Single View dated 06/28/2022 FINDINGS: Portable technique limits examination quality. Moderate pulmonary edema is suspected. The heart is moderately enlarged. Changes of a prior CABG are noted. IMPRESSION: Moderate CHF versus volume overload.
[2023-08-18 12:25] LABS: Arterial Blood Carboxyhemoglob 2.3 % (0-1.5); Blood Gas Oxyhemoglobin 89.2 % (94-97); Blood Gas THB 9.4 g/dl (12-18)
[2023-08-18 12:54] LABS: Absolute Lymphocytes (CBC) 0.5 K/uL (0.7-4.9); Absolute Monocytes 0.6 K/uL (0.1-1.3); Absolute Neutrophil 3.2 K/uL (1.8-8.0); Basophils % 0.9 % (0-1.3); Eosinophils % 0.9 % (0-4.4); Hematocrit 27.5 % (39.6-49.0); Hemoglobin 8.9 g/dL (13.6-17.9); Lymphocytes % 11.9 % (15.3-44.8); MCH 30.9 pg (27.0-35.0); MCHC 32.5 g/dL (32.0-36.0); MPV 7.9 fL (7.6-11.3); Monocytes % 14.1 % (3.3-12.3); Neutrophils % 72.2 % (41.7-73.7); Nucleated Red Blood Cells % 0.2 % (0-0); Platelets 109 thou/uL (152-406); RBC Red Blood Cell Count 2.89 M/uL (4.33-5.43)
[2023-08-18 13:04] LABS: PT Prothrombin Time 15.4 SECONDS (9.5-12.5); PTT, Activated Partial Thromb 29.3 SECONDS (24.3-36.9); Protime INR 1.41
[2023-08-18 13:51] LABS: Albumin 3.2 g/dL (3.4-5.0); Albumin/Globulin Ratio 0.8 (1.1-1.8); Alkaline Phosphatase 143 U/L (45-117); Anion Gap 13.7 mEq/L (5.0-15.0); BUN Blood Urea Nitrogen 53 mg/dL (7-18); Bicarbonate 24 mEq/L (21-32); Bilirubin Direct 0.5 mg/dL (0-0.2); Bilirubin Indirect, Calculated 0.5 mg/dL (0.2-0.8); Creatine Phosphokinase 52 U/L (39-308); Glomerular Filtration Rate 8 ml/min (=/>90); Glucose Level 230 mg/dL (74-106); Lipase 38 U/L (13-75); NT PRO-BNP 101652 pg/mL (<125); Potassium 3.7 mEq/L (3.5-5.1); Protein, Total 7.2 g/dL (6.4-8.2); Sodium Level 135 mEq/L (136-145); Troponin High Sensitivity 26.8 pg/mL (<58.9)
[2023-08-18 13:52] LABS: ALT/SGPT < 14 U/L (16-61); AST/SGOT < 10 U/L (15-37)
--- NOTE | 2023-08-18 14:50 | EDPHYS ---
Physician Documentation [facility] Name: Chase Chacon Jr Age: 48 yrs Sex: Male : 1975 Arrival Date: 08/18/2023 Time: 11:56 Bed 18 Private MD: ED Physician Maria Alejandra Werner HPI: 08/17 14:54 This 48 yrs old Male presents to ER via EMS with complaints of Seizure. gb1 12:39 45-year-old male here from dialysis after report of 15 minutes of seizure gb1 activity that only happens when he is at dialysis. Patient did test COVID-positive here a few days ago. He was just getting started with dialysis and did not finish his treatment today yet. Patient denies any chest pain or shortness of breath he denies any fevers but he has been having some chills. He states that as they were getting started with dialysis he felt more weak. He denies any nausea vomiting diarrhea or fevers.. Historical: - Allergies: 11:58 No Known Allergies; bp - PMHx: 11:58 Cataract; diabetes mellitus; Gastroparesis; hemodialysis; Hypertensive disorder; kidney bp failure; - PSHx: 11:58 heart bypass; Left arm dialysis fistula; bp - Immunization history:: Adult Immunizations up to date. - Infectious Disease History:: Denies. - Social history:: Smoking status: Patient denies any tobacco usage or history of. Exam: 12:39 Constitutional: This is a well developed, well nourished patient who is awake, alert, gb1 and in no acute distress. Head/Face: Patient has a 1 inch x 1 inch hematoma over his right periorbital area on the forehead. There is no active bleeding. Eyes: Pupils equal round and reactive to light, extra-ocular motions intact. Lids and lashes normal. Conjunctiva and sclera are non-icteric and not injected. Cornea within normal limits. Periorbital areas with no swelling, redness, or edema. Neck: Trachea midline, no thyromegaly or masses palpated, and no cervical lymphadenopathy. Supple, full range of motion without nuchal rigidity, or vertebral point tenderness. No Meningismus. Chest/axilla: Normal chest wall appearance and motion. Nontender with no deformity. No lesions are appreciated. Cardiovascular: Regular rate and rhythm with a normal S1 and S2. No gallops, murmurs, or rubs. Normal PMI, no JVD. No pulse deficits. Respiratory: Lungs have equal breath sounds bilaterally, clear to auscultation and percussion. No rales, rhonchi or wheezes noted. No increased work of breathing, no retractions or nasal flaring. Abdomen/GI: Soft, non-tender, with normal bowel sounds. No distension or tympany. No guarding or rebound. No evidence of tenderness throughout. Back: No spinal tenderness. No costovertebral tenderness. Full range of motion. MS/ Extremity: Pulses equal, no cyanosis. Neurovascular intact. Full, normal range of motion. Vital Signs: 11:57 BP 164 / 75; Pulse 87; Resp 16; Temp 99.1; Pulse Ox 96% ; bp 12:30 BP 133 / 80; Pulse 71; Resp 16; Pulse Ox 93% on R/A; me1 13:30 BP 142 / 76; Pulse 66; Resp 16; Pulse Ox 92% on R/A; me1 14:30 BP 133 / 80; Pulse 61; Resp 18; Pulse Ox 93% on R/A; me1 Ambridge Coma Score: 11:58 Eye Response: spontaneous(4). Motor Response: obeys commands(6). Verbal Response: bp oriented(5). Total: 15. MDM: 11:57 Patient medically screened. gb1 14:48 Data reviewed: vital signs, nurses notes, lab test result(s), radiologic studies, plain gb1 films. Test considered but Not performed: CT: Patient has a nonfocal neurological exam and at baseline. He is awake and alert and no signs of meningismus or strokelike symptoms.. 14:52 Differential diagnosis: 48-year-old male presents from dialysis after having gb1 questionable "seizure-like activity" for 15 minutes at the start of dialysis. He did not finish dialysis today. He is awake alert and oriented he does have some pulmonary vascular congestion on his chest x-ray but I expect that as he was currently getting dialyzed. He is not an extremis and at this time has normal set of vital signs at time of discharge. He is awake alert oriented with a nonfocal neurological exam I doubt CVA or TIA at this time. He does have residual trauma on his forehead that is not new he has a hematoma after a fall a few weeks. Patient likely has had similar incongruently consider fluid status. During the beginning of hemodialysis as he is also COVID-positive no focal pneumonia identified today. He will be discharged home via transport back to dialysis center to finish dialysis today.. 08/17 11:57 Order name: BMP; Complete Time: 13:56 gb08/17 11:57 Order name: Blood Culture Adult (2) 08/17 11:57 Order name: CBC with Diff; Complete Time: 13:39 08/17 11:57 Order name: CPK; Complete Time: 13:56 08/17 11:57 Order name: D-Dimer; Complete Time: 13:39 08/17 11:57 Order name: Hepatic Function; Complete Time: 13:56 08/17 11:57 Order name: Lipase; Complete Time: 13:56 08/17 11:57 Order name: Magnesium; Complete Time: 13:56 08/17 11:57 Order name: NT PRO-BNP; Complete Time: 13:56 08/17 11:57 Order name: PT-INR; Complete Time: 13:39 08/17 11:57 Order name: Ptt, Activated; Complete Time: 13:39 08/17 11:57 Order name: Troponin HS; Complete Time: 13:56 08/17 11:59 Order name: ABG: need VBG; Complete Time: 13:39 08/17 11:59 Order name: BETA HYDROXYBUTYRATE; Complete Time: 13:39 08/17 11:58 Order name: Chest Single View XRAY; Complete Time: 12:33 08/17 11:57 Order name: Cardiac monitoring; Complete Time: 12:00 08/17 11:57 Order name: EKG - Nurse/Tech; Complete Time: 14:46 08/17 11:57 Order name: IV Saline Lock; Complete Time: 12:37 08/17 11:57 Order name: Labs collected and sent; Complete Time: 12:37 08/17 11:57 Order name: O2 Per Protocol; Complete Time: 12:00 gb08/17 11:57 Order name: O2 Sat Monitoring; Complete Time: 12:00 gb1 Administered Medications: No medications were administered Disposition Summary: 08/18/23 14:50 Discharge Ordered Notes: Location: Home gb1 Condition: Stable gb1 Diagnosis - Altered mental status, unspecified gb1 Followup: gb1 - With: Private Physician - When: - Reason: Recheck today's complaints, Re-evaluation by your physician Discharge Instructions: - Discharge Summary Sheet gb1 - Confusion gb1 Forms: - Medication Reconciliation Form gb1 - Antibiotic Education gb1 - Prescription Opioid Use gb1 - Patient Portal Instructions gb1 - Leadership Thank You Letter gb1 Signatures: Dispatcher [employer] EDSurinder Martin, RN RN bp DebbiMaria Alejandra MD MD gb1 Corrections: (The following items were deleted from the chart) 11:58 11:58 BASIC METABOLIC PANEL+C.LAB.BRZ ordered. EDMS EDMS 11:58 11:58 BLOOD CULTURE*+BA.LAB.BRZ ordered. EDMS EDMS 11:58 11:58 CBC+H.LAB.BRZ ordered. EDMS EDMS 11:58 11:58 D-DIMER+COAG.LAB.BRZ ordered. EDMS EDMS 11:58 11:58 HEPATIC FUNCTION+C.LAB.BRZ ordered. EDMS EDMS 11:58 11:58 LIPASE+C.LAB.BRZ ordered. EDMS EDMS 11:58 11:58 MAGNESIUM+C.LAB.BRZ ordered. EDMS EDMS 11:58 11:58 PROBNP+C.LAB.BRZ ordered. EDMS EDMS 11:58 11:58 PROTIME (+INR)+COAG.LAB.BRZ ordered. EDMS EDMS 11:58 11:58 PTT, ACTIVATED+COAG.LAB.BRZ ordered. EDMS EDMS 11:58 11:58 Troponin High Sensitivity+C.LAB.BRZ ordered. EDMS EDMS 11:59 11:59 Arterial Blood Gas+RC.LAB.BRZ ordered. EDMS EDMS 12:37 11:58 CREATINE PHOSPHOKINASE+C.LAB.BRZ ordered. EDMS EDMS
--- NOTE | 2023-08-18 14:50 | ER ---
Nurse's Notes [facility] Name: Chase Chacon Jr Age: 48 yrs Sex: Male : 1975 Arrival Date: 08/18/2023 Time: 11:56 Bed 18 Private MD: Diagnosis: Altered mental status, unspecified Presentation: 08/17 11:57 Chief complaint: EMS states: SZ AT DIALYSIS, H/O SAME. Coronavirus screen: At this bp time, the client does not indicate any symptoms associated with coronavirus-19. Ebola Screen: No symptoms or risks identified at this time. Initial Sepsis Screen: Does the patient meet any 2 criteria? No. Patient's initial sepsis screen is negative. Does the patient have a suspected source of infection? No. Patient's initial sepsis screen is negative. Risk Assessment: Do you want to hurt yourself or someone else? Patient reports no desire to harm self or others. Onset of symptoms was August 18, 2023 at 11:30. Care prior to arrival: IV initiated. 20 GA, in the right forearm, Glucose check: 281. 11:57 Method Of Arrival: EMS: [facility] bp 11:57 Acuity: LEON 3 bp Triage Assessment: 11:58 General: Appears in no apparent distress. Behavior is calm, cooperative, appropriate bp for age. Pain: Complains of pain in face. Neuro: Reports SEIZURE AT DILAYSIS. Historical: - Allergies: 11:58 No Known Allergies; bp - PMHx: 11:58 Cataract; diabetes mellitus; Gastroparesis; hemodialysis; Hypertensive disorder; kidney bp failure; - PSHx: 11:58 heart bypass; Left arm dialysis fistula; bp - Immunization history:: Adult Immunizations up to date. - Infectious Disease History:: Denies. - Social history:: Smoking status: Patient denies any tobacco usage or history of. Screenin:59 [facility] ED Fall Risk Assessment (Adult) History of falling in the last 3 months, bp including since admission No falls in past 3 months (0 pts). Abuse screen: Denies threats or abuse. Denies injuries from another. Nutritional screening: No deficits noted. Tuberculosis screening: No symptoms or risk factors identified. Assessment: 11:59 General: Appears in no apparent distress. comfortable, Behavior is calm, cooperative, bp appropriate for age. 12:05 General: Appears comfortable, Behavior is calm, cooperative, appropriate for age. Pain: me1 Denies pain. Neuro: Level of Consciousness is awake, alert, obeys commands, Oriented to person, place, time, situation, Appropriate for age. Cardiovascular: Capillary refill < 3 seconds Patient's skin is warm and dry. Respiratory: Airway is patent Respiratory effort is even, unlabored, Respiratory pattern is regular, symmetrical. GI: No signs and/or symptoms were reported involving the gastrointestinal system. : No signs and/or symptoms were reported regarding the genitourinary system. EENT: No signs and/or symptoms were reported regarding the EENT system. Derm: Skin is intact, is healthy with good turgor, Skin is pink, warm \T\ dry. Musculoskeletal: No signs and/or symptoms reported regarding the musculoskeletal system. 12:05 General: Left arm AV fistula still accessed. Clamped. . me1 15:01 General: [facility] and spoke to DES to inform her of patient's me1 discharge and that his AV fistula is still accessed. DES is going to come to the ER to deaccess patient's av fistula. . 16:03 General: DJ with [facility] [employer] at bedside. AV fistula LFA dressing is clean me1 dry and intact. . Vital Signs: 11:57 BP 164 / 75; Pulse 87; Resp 16; Temp 99.1; Pulse Ox 96% ; bp 12:30 BP 133 / 80; Pulse 71; Resp 16; Pulse Ox 93% on R/A; me1 13:30 BP 142 / 76; Pulse 66; Resp 16; Pulse Ox 92% on R/A; me1 14:30 BP 133 / 80; Pulse 61; Resp 18; Pulse Ox 93% on R/A; me1 Edward Coma Score: 11:58 Eye Response: spontaneous(4). Motor Response: obeys commands(6). Verbal Response: bp oriented(5). Total: 15. ED Course: 11:56 Patient arrived in ED. bp 11:57 Maria Alejandra Werner MD is Attending Physician. gb1 11:58 Triage completed. bp 11:58 Arm band placed on. bp 11:59 Patient has correct armband on for positive identification. bp 11:59 Maintain EMS IV. Dressing intact. Good blood return noted. Site clean \T\ dry. Gauge \T\ bp site: 20 R FA. 12:00 Surinder Gagnon, RN is Primary Nurse. bp 12:05 Patient has correct armband on for positive identification. Bed in low position. Call me1 light in reach. Side rails up X 1. Patient has correct armband on for positive identification. Provided Education on: POC. Verbalized understanding. . 12:05 Seizure precautions initiated. me1 12:08 Chest Single View XRAY In Process Unspecified. EDMS 12:32 Initial lab(s) drawn, by me, sent to lab. First set of blood cultures drawn by me, bp Second set of blood cultures drawn. 12:37 BETA HYDROXYBUTYRATE Sent. bp 12:37 BMP Sent. bp 12:37 Blood Culture Adult (2) Sent. bp 12:37 CBC with Diff Sent. bp 12:37 D-Dimer Sent. bp 12:37 Hepatic Function Sent. bp 12:37 Lipase Sent. bp 12:37 Magnesium Sent. bp 12:37 NT PRO-BNP Sent. bp 12:37 PT-INR Sent. bp 12:37 Ptt, Activated Sent. bp 12:37 Troponin HS Sent. bp 15:08 No provider procedures requiring assistance completed. IV discontinued, intact, me1 bleeding controlled, No redness/swelling at site. Pressure dressing applied. 15:48 Primary Nurse role handed off by Surinder Gagnon, JENNIE bp 16:03 Rosana Ackerman, RN is Primary Nurse. me1 Administered Medications: No medications were administered Medication: 11:59 VIS not applicable for this client. bp Outcome: 14:50 Discharge ordered by MD. gb1 16:03 Discharged to home ambulatory, with family, ri1 16:03 Condition: stable 16:03 Discharge instructions given to patient, family, Instructed on discharge instructions, follow up and referral plans. Demonstrated understanding of instructions, follow-up care, 16:05 Patient left the ED. aa5 Signatures: Dispatcher [employer] EDGwendolyn James RN RN aa5 Surinder Gagnon, RN RN bp Rosana Ackerman, JENNIE RN me1 Maria Alejandra Werner MD MD gb1 Corrections: (The following items were deleted from the chart) 12:37 12:37 CREATINE PHOSPHOKINASE+C.LAB.BRZ drawn and sent. bp EDMS
[2023-08-18 16:46] VITALS: BP 133/80; TEMP 99.1; O2SAT 93
== END 2023-08-18 16:05 | disposition home or self-care (01) ==
LOC: ER 11:56
DX: R41.82 Altered mental status, unspecified (principal); E11.22 Type 2 diabetes mellitus with diabetic chronic kidney disease; N18.6 End stage renal disease; Z99.2 Dependence on renal dialysis; Z95.1 Presence of aortocoronary bypass graft
CPT/HCPCS: 36415; 36600; 71045; 80048; 80076; 82010; 82550; 82805; 83690; 83735; 83880; 84484; 85025; 85379; 85610; 85730; 87040; 99284

== ENCOUNTER 2024-02-18 15:02 | Emergency (ER) | payer OTHER ==
[2024-02-18 15:58] LABS: Absolute Eosinophils 0.1 K/uL (0-0.5); Absolute Lymphocytes (CBC) 0.9 K/uL (0.7-4.9); Absolute Monocytes 0.4 K/uL (0.1-1.3); Absolute Neutrophil 3.2 K/uL (1.8-8.0); Basophils % 0.8 % (0-1.3); Eosinophils % 2.8 % (0-4.4); Hemoglobin 10.3 g/dL (13.6-17.9); MCH 32.5 pg (27.0-35.0); MCHC 34.5 g/dL (32.0-36.0); MCV 94.3 fL (80-100); Monocytes % 7.7 % (3.3-12.3); Neutrophils % 69.7 % (41.7-73.7); Nucleated Red Blood Cells % 0.1 % (0-0); Platelets 86 thou/uL (152-406); RBC Red Blood Cell Count 3.18 M/uL (4.33-5.43); Red Cell Distribution Width 16.2 % (12.1-15.2)
[2024-02-18 15:59] LABS: PT Prothrombin Time 13.5 SECONDS (9.4-12.5); Protime INR 1.21
[2024-02-18 16:13] LABS: AST/SGOT 12 U/L (15-37); Albumin 3.5 g/dL (3.4-5.0); Albumin/Globulin Ratio 0.7 (1.1-1.8); Alkaline Phosphatase 119 U/L (45-117); Anion Gap 11.4 mEq/L (5.0-15.0); BUN Blood Urea Nitrogen 29 mg/dL (7-18); Bicarbonate 28 mEq/L (21-32); Bilirubin Total 1.4 mg/dL (0.2-1.0); Glomerular Filtration Rate 16 ml/min (=/>90); Glucose Level 322 mg/dL (74-106); Potassium 3.4 mEq/L (3.5-5.1); Protein, Total 8.5 g/dL (6.4-8.2); Sodium Level 135 mEq/L (136-145)
[2024-02-18 16:14] LABS: ALT/SGPT < 14 U/L (16-61)
[2024-02-18] MEDS ORDERED: TRANEXAMIC ACID 1,000 MG/10 ML VIAL IV ONE (16:26)
[2024-02-18] MEDS ORDERED: NA CHLORIDE 0.9% 100 ML ONE (16:35)
[2024-02-18] MEDS ORDERED: WATER FOR INJ,STERILE 10 ML ONE (16:35)
[2024-02-18] MEDS ORDERED: CEFTRIAXONE 1000 MG/VIAL ONE (17:08)
--- NOTE | 2024-02-18 17:30 | ER ---
Nurse's Notes [facility] Name: Chase Chacon Jr Age: 48 yrs Sex: Male : 1975 Arrival Date: 02/18/2024 Time: 15:02 Bed 10 Private MD: Diagnosis: Dental caries, unspecified-BLEEDING;Dental root caries Presentation: 02/17 15:14 Chief complaint: Patient states: he has been having intermittent bleeding from a left ap3 lower tooth since Friday02/16/24. Coronavirus screen: At this time, the client does not indicate any symptoms associated with coronavirus-19. Ebola Screen: No symptoms or risks identified at this time. Initial Sepsis Screen: Does the patient meet any 2 criteria? No. Patient's initial sepsis screen is negative. Does the patient have a suspected source of infection? No. Patient's initial sepsis screen is negative. Risk Assessment: Do you want to hurt yourself or someone else? Patient reports no desire to harm self or others. Onset of symptoms was February 16, 2024. 15:14 Method Of Arrival: Ambulatory ap3 15:14 Acuity: LEON 4 ap3 Triage Assessment: 15:16 General: Appears in no apparent distress. Behavior is calm, cooperative, appropriate ap3 for age. Pain: Denies pain. EENT: Reports bleeding from left lower tooth. Neuro: Level of Consciousness is awake, alert, obeys commands, Oriented to person, place, time, situation, Appropriate for age. Cardiovascular: Patient's skin is warm and dry. Dialysis shunt: in the dorsal aspect of left forearm. Respiratory: Airway is patent Respiratory effort is even, unlabored, Respiratory pattern is regular, symmetrical. Historical: - Allergies: 15:16 Phenergan; ap3 - PMHx: 15:16 Cataract; diabetes mellitus; Gastroparesis; hemodialysis; Hypertensive disorder; kidney ap3 failure; - PSHx: 15:16 heart bypass; Left arm dialysis fistula; ap3 - Immunization history:: Adult Immunizations up to date. - Infectious Disease History:: Denies. - Social history:: Smoking status: Patient denies any tobacco usage or history of. - Family history:: not pertinent. Screenin:17 Abuse screen: Denies threats or abuse. Nutritional screening: No deficits noted. ap3 Tuberculosis screening: No symptoms or risk factors identified. 15:52 [facility] ED Fall Risk Assessment (Adult) History of falling in the last 3 months, jb4 including since admission No falls in past 3 months (0 pts) Confusion or Disorientation No (0 pts) Intoxicated or Sedated No (0 pts) Impaired Gait No (0 pts) Mobility Assist Device Used No (0 pt) Altered Elimination No (0 pt) Score/Fall Risk Level 0 - 2 = Low Risk Oriented to surroundings, Maintained a safe environment. Assessment: 15:52 General: Appears in no apparent distress. comfortable, Behavior is calm, cooperative, jb4 appropriate for age. Pain: Denies pain. Neuro: Level of Consciousness is awake, alert, obeys commands, Oriented to person, place, time, situation. Cardiovascular: Patient's skin is warm and dry. Respiratory: Airway is patent Respiratory effort is even, unlabored, Respiratory pattern is regular, symmetrical. Derm: Skin is intact, Skin is pink, warm \T\ dry. Musculoskeletal: Circulation, motion, and sensation intact. Range of motion: intact in all extremities. 18:05 Reassessment: Patient appears in no apparent distress at this time. Patient and/or jb4 family updated on plan of care and expected duration. Pain level reassessed. Patient is alert, oriented x 3, equal unlabored respirations, skin warm/dry/pink. Vital Signs: 15:14 BP 164 / 52; Pulse 71; Resp 17; Temp 97.8; Pulse Ox 94% on R/A; Weight 84.8 kg; ap3 [place] Coma Score: 17:28 Eye Response: spontaneous(4). Motor Response: obeys commands(6). Verbal Response: ralph oriented(5). Total: 15. ED Course: 15:05 Patient arrived in ED. ra3 15:16 Triage completed. ap3 15:17 Arm band placed on right wrist. ap3 15:34 Sunny Lake MD is Attending Physician. ralph 15:49 Inserted saline lock: 18 gauge in right forearm, using aseptic technique. jb4 15:49 PT-INR Sent. jb4 15:49 Comprehensive Metabolic Panel Sent. jb4 15:49 CBC with Diff Sent. jb4 15:52 Jimmy Guzman RN is Primary Nurse. jb4 15:52 Patient has correct armband on for positive identification. Bed in low position. Call jb4 light in reach. Side rails up X 1. Provided Education on: plan of care. 17:29 Otis Painting DDS is Referral Physician. [facility] 18:05 No provider procedures requiring assistance completed. IV discontinued, intact, jb4 bleeding controlled, No redness/swelling at site. Pressure dressing applied. Administered Medications: 16:54 Drug: tranexamic acid 10 ml PO once {Note: Pt instructed too swish and spit.} Route: PO;jb4 17:09 Follow up: Response: No adverse reaction; Marked relief of symptoms jb4 16:54 Drug: tranexamic acid 500 mg IV at per protocol once; administer at a rate not to jb4 exceed 100 mg per min Route: IV; Rate: per protocol; Site: right forearm; 18:07 Follow up: Response: No adverse reaction; Marked relief of symptoms; IV Status: jb4 Completed infusion; IV Intake: 100ml 17:15 Drug: Rocephin IV 1 grams IV at per protocol once; Given slow IV push per pharmacy jb4 instructions Route: IV; Rate: per protocol; Site: right forearm; 17:18 Follow up: Response: No adverse reaction; IV Status: Completed infusion; IV Intake: [id number] 17:58 Not Given (Physician Discretion; BGL dropped to 2988): insulin regular human5 units IVP jb4 once 17:58 Drug: Insulin Glargine Sub-Q 25 units Sub-Q once {Co-Signature: ann (Keiry Olea RN).} Route: Sub-Q; Site: right lower abdomen; 18:06 Follow up: Response: Medication administered at discharge. jb4 Medication: 15:52 VIS not applicable for this client. jb4 Intake: 17:18 IV: 10ml; Total: 10ml. jb4 18:07 IV: 100ml; Total: 110ml. jb4 Outcome: 17:29 Discharge ordered by . ralph 18:05 Discharged to home ambulatory, jb4 18:05 Condition: stable 18:05 Discharge instructions given to patient, Instructed on discharge instructions, follow up and referral plans. medication usage, Demonstrated understanding of instructions, follow-up care, medications, Prescriptions given X 1, 18:08 Patient left the ED. jb4 Signatures: Sunny Lake MD MD cha Bryson, James RN RN jb4 Alicia Diop RN RN Phoebe Royal Irene RN iw Corrections: (The following items were deleted from the chart) 17:15 16:54 tranexamic acid 500 mg IV at per protocol in right antecubital jb4 jb4 17:15 17:15 Rocephin IV 1 grams IV at per protocol in right antecubital jb4 jb4
--- NOTE | 2024-02-18 17:30 | EDPHYS ---
Physician Documentation [facility] Name: Chase Chacon Jr Age: 48 yrs Sex: Male : 1975 Arrival Date: 02/18/2024 Time: 15:02 Bed 10 Private MD: EDWINA Physician Sunny Lake HPI: 02/17 16:13 This 48 yrs old Male presents to ER via Ambulatory with complaints of Mouth ralph bleeding. 16:13 The patient presents with bleeding, pain, redness, swelling. The problem is located in ralph the lower left first molar. Onset: The symptoms/episode began/occurred 3 day(s) ago. Duration: The symptoms are continuous, and are unchanged since they started. Modifying factors: The symptoms are alleviated by nothing, the symptoms are aggravated by air. Associated signs and symptoms: The patient has no apparent associated signs or symptoms. Severity of symptoms: At their worst the symptoms were mild, moderate, in the emergency department the symptoms are unchanged. The patient has experienced similar episodes in the past, multiple times. Historical: - Allergies: 15:16 Phenergan; ap3 - PMHx: 15:16 Cataract; diabetes mellitus; Gastroparesis; hemodialysis; Hypertensive disorder; kidney ap3 failure; - PSHx: 15:16 heart bypass; Left arm dialysis fistula; ap3 - Immunization history:: Adult Immunizations up to date. - Infectious Disease History:: Denies. - Social history:: Smoking status: Patient denies any tobacco usage or history of. - Family history:: not pertinent. ROS: 16:13 Constitutional: Negative for fever, chills, and weight loss, Eyes: Negative for injury, ralph pain, redness, and discharge, Neck: Negative for injury, pain, and swelling, Cardiovascular: Negative for chest pain, palpitations, and edema, Respiratory: Negative for shortness of breath, cough, wheezing, and pleuritic chest pain, Abdomen/GI: Negative for abdominal pain, nausea, vomiting, diarrhea, and constipation, Back: Negative for injury and pain, : Negative for injury, bleeding, discharge, and swelling, MS/Extremity: Negative for injury and deformity, Skin: Negative for injury, rash, and discoloration, Neuro: Negative for headache, weakness, numbness, tingling, and seizure, Psych: Negative for depression, anxiety, suicide ideation, homicidal ideation, and hallucinations, Allergy/Immunology: Negative for hives, rash, and allergies, Endocrine: Negative for neck swelling, polydipsia, polyuria, polyphagia, and marked weight changes, Hematologic/Lymphatic: Negative for swollen nodes, abnormal bleeding, and unusual bruising, 16:13 ENT: Positive for dental pain, LEFT 1ST LOWER MOLAR BLEEDING, Exam: 16:16 Constitutional: This is a well developed, well nourished patient who is awake, alert, ralph and in no acute distress. Eyes: Pupils equal round and reactive to light, extra-ocular motions intact. Lids and lashes normal. Conjunctiva and sclera are non-icteric and not injected. Cornea within normal limits. Periorbital areas with no swelling, redness, or edema. ENT: Nares patent. No nasal discharge, no septal abnormalities noted. Tympanic membranes are normal and external auditory canals are clear. Oropharynx with no redness, swelling, or masses, exudates, or evidence of obstruction, uvula midline. Mucous membranes moist. Neck: Trachea midline, no thyromegaly or masses palpated, and no cervical lymphadenopathy. Supple, full range of motion without nuchal rigidity, or vertebral point tenderness. No Meningismus. Chest/axilla: Normal chest wall appearance and motion. Nontender with no deformity. No lesions are appreciated. Cardiovascular: Regular rate and rhythm with a normal S1 and S2. No gallops, murmurs, or rubs. Normal PMI, no JVD. No pulse deficits. Respiratory: Lungs have equal breath sounds bilaterally, clear to auscultation and percussion. No rales, rhonchi or wheezes noted. No increased work of breathing, no retractions or nasal flaring. Abdomen/GI: Soft, non-tender, with normal bowel sounds. No distension or tympany. No guarding or rebound. No evidence of tenderness throughout. Back: No spinal tenderness. No costovertebral tenderness. Full range of motion. Male : Normal genitalia with no discharge or lesions. Skin: Warm, dry with normal turgor. Normal color with no rashes, no lesions, and no evidence of cellulitis. MS/ Extremity: Pulses equal, no cyanosis. Neurovascular intact. Full, normal range of motion., bilateral aka Neuro: Awake and alert, GCS 15, oriented to person, place, time, and situation. Cranial nerves II-XII grossly intact. Motor strength 5/5 in all extremities. Sensory grossly intact. Cerebellar exam normal. Normal gait. Psych: Awake, alert, with orientation to person, place and time. Behavior, mood, and affect are within normal limits. 16:16 Head/face: Noted is swelling, that is mild, of the lower left first molar, BLEEDING AT BASE OF LEFT LOWER 1 ST MOLAR, XTENSIVE DECAY. Vital Signs: 15:14 BP 164 / 52; Pulse 71; Resp 17; Temp 97.8; Pulse Ox 94% on R/A; Weight 84.8 kg; ap3 [place] Coma Score: 17:28 Eye Response: spontaneous(4). Motor Response: obeys commands(6). Verbal Response: ralph oriented(5). Total: 15. MDM: 15:34 Medical Screening Exam initiated ralph 16:16 Differential diagnosis: dental caries, gingivitis, acute necrotizing ulcerative ralph gingivitis, gingivostomatitis. Data reviewed: vital signs, nurses notes, lab test result(s). Consideration of Admission/Observation Escalation of care including admission/observation considered. I considered the following discharge prescriptions or medication management in the emergency department Medications were administered in the Emergency Department. See MAR. Test considered but Not performed: CT: NO CT. Care significantly affected by the following chronic conditions: Diabetes, Hypertension, Chronic Kidney Disease, M,W, F HD. 17:28 ED course: good hemostasis at [place], controlled. [facility] 02/17 15:35 Order name: CBC with Diff [facility] 02/17 15:35 Order name: Comprehensive Metabolic Panel; Complete Time: 17:26 [facility] 02/17 15:35 Order name: PT-INR; Complete Time: 16:07 [facility] 02/17 18:07 Order name: Glucose, Ancillary Testing [facility] 02/17 15:35 Order name: IV Saline Lock; Complete Time: 15:49 ralph Administered Medications: 16:54 Drug: tranexamic acid 10 ml PO once {Note: Pt instructed too swish and spit.} Route: PO;jb4 17:09 Follow up: Response: No adverse reaction; Marked relief of symptoms jb4 16:54 Drug: tranexamic acid 500 mg IV at per protocol once; administer at a rate not to jb4 exceed 100 mg per min Route: IV; Rate: per protocol; Site: right forearm; 18:07 Follow up: Response: No adverse reaction; Marked relief of symptoms; IV Status: jb4 Completed infusion; IV Intake: 100ml 17:15 Drug: Rocephin IV 1 grams IV at per protocol once; Given slow IV push per pharmacy jb4 instructions Route: IV; Rate: per protocol; Site: right forearm; 17:18 Follow up: Response: No adverse reaction; IV Status: Completed infusion; IV Intake: [id number] 17:58 Not Given (Physician Discretion; BGL dropped to 2988): insulin regular human5 units IVP jb4 once 17:58 Drug: Insulin Glargine Sub-Q 25 units Sub-Q once {Co-Signature: iw (Keiry Olea RN).} Route: Sub-Q; Site: right lower abdomen; 18:06 Follow up: Response: Medication administered at discharge. jb4 Disposition Summary: 02/18/24 17:29 Discharge Ordered Notes: Location: Home ralph Problem: new ralph Symptoms: have improved ralph Condition: Stable ralph Diagnosis - Dental caries, unspecified - BLEEDING ralph - Dental root caries ralph Followup: ralph - With: Private Physician - When: 2 - 3 days - Reason: If symptoms return, Recheck today's complaints, Continuance of care, Re-evaluation by your physician Followup: ralph - With: Otis Painting DDS - When: 1 - 2 days - Reason: Recheck today's complaints, Re-evaluation by your physician Discharge Instructions: - Discharge Summary Sheet ralph - Dental Caries, Adult ralph - Dental Pain ralph - Gingivitis ralph - Dialysis ralph - Dental Pain, [id number] ralph - Gingivitis, [id number] ralph - Dental Caries, Adult, [id number] ralph Forms: - Medication Reconciliation Form ralph - Antibiotic Education ralph - Prescription Opioid Use ralph - Patient Portal Instructions [facility] - Leadership Thank You Letter [facility] Prescriptions: - Augmentin 500-125 mg Oral Tablet - take 1 tablet ORAL route every 8 hours for 10 days; 30 tablet; Refills: 0, ralph Product Selection Permitted Signatures: Dispatcher [employer] Sunny Kumar MD MD cha Bryson, James RN RN jb4 Alicia Diop RN RN [email or web address] Keiry Olea RN iw
[2024-02-18] MEDS ORDERED: INSULIN GLARGINE 100 UNIT/ML SQ ONE (17:49)
[2024-02-18] MEDS ORDERED: INSULIN REGULAR (HUMAN) 100 UNIT/ML ONE (17:50)
[2024-02-18 19:44] LABS: Blood Morphology Comment NOT SEEN (NOT SEEN); Platelet Estimate DECR; White Blood Cell Scan OK (OK)
[2024-02-19 01:04] VITALS: BP 164/52; TEMP 97.8; O2SAT 94
== END 2024-02-18 18:08 | disposition home or self-care (01) ==
LOC: ER 15:02
DX: K02.7 Dental root caries (principal); E11.22 Type 2 diabetes mellitus with diabetic chronic kidney disease; N18.6 End stage renal disease; Z99.2 Dependence on renal dialysis
CPT/HCPCS: 96365; 85025; 36415; 85610; 82947; 80053; 96375; 96372; 99284; J0696

== ENCOUNTER 2024-04-04 16:59 | Inpatient (IN) | payer OTHER ==
--- NOTE | 2024-04-04 17:53 | RAD REPORT ---
EXAMINATION: US LEFT LOWER EXTREMITY VENOUS DOPPLER CLINICAL INDICATION: [facility] MAIN leg PAIN Bed Name: 19 N TECHNIQUE: Complete bilateral duplex sonography of the LEFT lower extremity veins was performed. The examination included compression for vein patency, color Doppler imaging and flow augmentation in response to distal compression of the distal external iliac, common femoral, femoral, popliteal, tibi al, and great and small saphenous veins. COMPARISON: No prior exam. FINDINGS: Duplex sonography testing of the veins of the LEFT lower extremity was performed. Color flow imaging shows all veins to be compressible with [id number] color filling. Pulsatile and phasic flow is present within all lower extremity deep and superficial veins examined. IMPRESSION: No evidence of deep venous thrombosis.
[2024-04-04 18:09] LABS: Absolute Eosinophils 0.1 K/uL (0-0.5); Absolute Lymphocytes (CBC) 0.9 K/uL (0.7-4.9); Absolute Monocytes 0.5 K/uL (0.1-1.3); Absolute Neutrophil 5.4 K/uL (1.8-8.0); Basophils % 0.5 % (0-1.3); Eosinophils % 1.9 % (0-4.4); Hematocrit 27.1 % (39.6-49.0); Hemoglobin 9.2 g/dL (13.6-17.9); Lymphocytes % 12.8 % (15.3-44.8); MCH 32.1 pg (27.0-35.0); MCHC 33.8 g/dL (32.0-36.0); MCV 94.9 fL (80-100); MPV 8.4 fL (7.6-11.3); Monocytes % 7.4 % (3.3-12.3); Neutrophils % 77.4 % (41.7-73.7); Nucleated Red Blood Cells % 0.1 % (0-0); Platelets 115 thou/uL (152-406); RBC Red Blood Cell Count 2.86 M/uL (4.33-5.43); Red Cell Distribution Width 16.1 % (12.1-15.2)
[2024-04-04 18:17] LABS: PT Prothrombin Time 14.1 SECONDS (9.4-12.5); Protime INR 1.35
--- NOTE | 2024-04-04 18:32 | RAD REPORT ---
EXAMINATION: ONE VIEW CHEST XR CLINICAL INDICATION: Male, 48 years old.,syncope TECHNIQUE: Frontal chest projection is submitted. Examination is limited by patient positioning and t echnique. COMPARISON: 08/18/2023 FINDINGS: The lungs are grossly clear although suboptimal inspiratory effort somewhat limits evaluation. Centra l interstitial prominence again seen. No pneumothorax or sizable effusion. The heart is again enlarged. Sequelae of CABG and left rhythm monitoring device implantation noted. Mediastinal contours are unchanged. IMPRESSION: Changes of CHF or central congestion, stable.
[2024-04-04 18:46] LABS: ALT/SGPT < 14 U/L (16-61); AST/SGOT 12 U/L (15-37); Albumin 2.8 g/dL (3.4-5.0); Albumin/Globulin Ratio 0.5 (1.1-1.8); Alkaline Phosphatase 116 U/L (45-117); Anion Gap 14.3 mEq/L (5.0-15.0); BUN Blood Urea Nitrogen 35 mg/dL (7-18); Bicarbonate 25 mEq/L (21-32); Bilirubin Direct 0.5 mg/dL (0-0.2); Bilirubin Indirect, Calculated 0.6 mg/dL (0.2-0.8); Bilirubin Total 1.1 mg/dL (0.2-1.0); Globulin 5.3 g/dL (2.3-3.5); Glomerular Filtration Rate 12 ml/min (=/>90); Glucose Level 185 mg/dL (74-106); Magnesium 1.7 mg/dL (1.6-2.4); NT PRO-BNP 94367 pg/mL (<125); Potassium 3.3 mEq/L (3.5-5.1); Protein, Total 8.1 g/dL (6.4-8.2); Sodium Level 133 mEq/L (136-145); Troponin High Sensitivity 41.9 pg/mL (<58.9)
--- NOTE | 2024-04-04 19:08 | EDPHYS ---
Physician Documentation [facility] Name: Chase Chacon Jr Age: 48 yrs Sex: Male : 1975 Arrival Date: 04/04/2024 Time: 16:59 Bed 19 Private MD: ED Physician Sunny aLke HPI: 04/04 17:14 This 48 yrs old Male presents to ER via Unassigned with complaints of Syncope. sb4 17:15 Patient was receiving hemodialysis this afternoon when he states he felt a cramp in his sb4 leg, repositioned, all of a sudden got lightheaded and then had a syncopal episode. I also states that his blood pressure had dropped. EMS brought him here for further evaluation. He states that he feels fine now. Blood pressure has stabilized. States that he received 2 hours of hemodialysis. He went to dialysis 1 day early because of the freeze. Historical: - Allergies: 17:16 Phenergan; kj2 - PMHx: 17:16 Cataract; diabetes mellitus; Gastroparesis; hemodialysis; Hypertensive disorder; kidney kj2 failure; - Immunization history:: Adult Immunizations unknown. - Infectious Disease History:: Denies. - Social history:: Smoking status: Patient denies any tobacco usage or history of. ROS: 17:15 Constitutional: Negative for fever, chills, and weight loss, sb4 17:15 Neuro: Positive for syncope, 17:15 All other systems are negative, Exam: 17:15 Head/Face: Normocephalic, atraumatic. Eyes: Extra-ocular motions intact. Periorbital sb4 areas with no swelling, redness, or edema. ENT: Mucous membranes moist. Cardiovascular: Regular rate and rhythm with a normal S1 and S2. Respiratory: No increased work of breathing, no retractions or nasal flaring. Abdomen/GI: Soft, non-tender, no distension. Skin: Warm, dry with normal turgor. Normal color with no rashes, no lesions, and no evidence of cellulitis. 17:15 Constitutional: The patient appears in no acute distress, alert, awake, pale, Vital Signs: 17:13 BP 142 / 87; Pulse 87; Resp 18; Temp 98; Pulse Ox 100% 2 lpm ; Weight 85 kg; Height 5 kj2 ft. 6 in. ; 17:21 BP 162 / 87; Pulse 83; Resp 22; Temp 98.2; Pulse Ox 95% ; am7 18:15 BP 144 / 82; Pulse 70; Resp 20; Pulse Ox 100% on R/A; kj2 19:15 BP 134 / 74; Pulse 67; Resp 18; Pulse Ox 100% on R/A; kj2 21:05 BP 141 / 72; Pulse 68; Resp 18; Pulse Ox 98% on R/A; kj2 17:13 Body Mass Index 30.25 (85.00 kg, 167.64 cm) kj2 MDM: 17:10 Medical Screening Exam initiated sb4 18:49 Data reviewed: vital signs, nurses notes, EMS record, lab test result(s), EKG, sb4 radiologic studies, and as a result, I will discharge patient. Consideration of Admission/Observation Escalation of care including admission/observation considered. Care significantly affected by the following chronic conditions: Diabetes, Hypertension, Obesity, Chronic Kidney Disease. Counseling: I had a detailed discussion with the patient and/or guardian regarding the historical points, exam findings, and any diagnostic results supporting the discharge/admit diagnosis, the presence of at least one elevated blood pressure reading (>120/80) during this emergency department visit, lab results, radiology results, the need for outpatient follow up, for definitive care, to return to the emergency department if symptoms worsen or persist or if there are any questions or concerns that arise at home. 19:10 ED course: Discussed prior events with designer writer. States that patient was receiving sb4 dialysis and started to receive a leg cramp so they attempted to reposition him but he placed his feet on the ground and began to have a syncopal episode. She states that this has happened several times in the past. However this time, she states that he lost a pulse so they placed him on a backboard and began CPR. They placed him on the AED, which did not advise a shock. She states his pulse came but he was still exhibiting agonal breathing so they continued CPR. When EMS arrived, they told them to stop. EMS did not detect any cardiac arrhythmia . 04/04 17:11 Order name: Basic Metabolic Panel; Complete Time: 18:47 sb4 04/04 17:11 Order name: CBC with Diff; Complete Time: 18:17 sb4 04/04 17:11 Order name: LFT's; Complete Time: 18:47 sb4 04/04 17:11 Order name: Magnesium; Complete Time: 18:47 sb4 04/04 17:11 Order name: NT PRO-BNP; Complete Time: 18:47 sb4 04/04 17:11 Order name: PT-INR; Complete Time: 18:18 sb4 04/04 17:11 Order name: Troponin HS; Complete Time: 18:47 sb4 04/04 21:05 Order name: Urinalysis w/ reflexes EDMS 04/04 21:05 Order name: CBC with Automated Diff EDMS 04/04 21:05 Order name: CBC with Automated Diff; Complete Time: 16:59 EDMS 04/04 21:05 Order name: Comprehensive Metabolic Panel EDMS 04/04 21:05 Order name: Comprehensive Metabolic Panel; Complete Time: 16:59 EDMS 04/04 21:05 Order name: Magnesium EDMS 04/04 21:05 Order name: Magnesium; Complete Time: 16:59 EDMS 04/04 21:05 Order name: Phosphorus EDMS 04/04 21:05 Order name: Phosphorus; Complete Time: 16:59 EDMS 04/04 21:05 Order name: Troponin High Sensitivity EDMS 04/04 21:05 Order name: Troponin High Sensitivity; Complete Time: 00:45 EDMS 04/04 21:05 Order name: Troponin High Sensitivity; Complete Time: 16:59 EDMS 04/04 21:05 Order name: Troponin High Sensitivity; Complete Time: 16:59 EDMS 04/05 02:36 Order name: Glucose, Ancillary Testing; Complete Time: 16:59 EDMS 04/05 07:38 Order name: Glucose, Ancillary Testing; Complete Time: 16:59 EDMS 04/04 17:11 Order name: XRAY Chest (1 view); Complete Time: 18:33 sb4 04/04 17:11 Order name: Extremity Venous Uni Ltd US; Complete Time: 17:54 sb4 04/04 19:30 Order name: Chest For Pe Angio; Complete Time: 21:46 EDMS 04/04 21:05 Order name: CONS Physician Consult EDMS 04/04 17:11 Order name: Cardiac monitoring; Complete Time: 17:24 sb4 04/04 17:11 Order name: EKG - Nurse/Tech; Complete Time: 17:24 sb4 04/04 17:11 Order name: IV Saline Lock; Complete Time: 17:30 sb4 04/04 17:11 Order name: Labs collected and sent; Complete Time: 17:30 sb4 04/04 17:11 Order name: O2 Per Protocol; Complete Time: 17:24 sb4 04/04 17:11 Order name: O2 Sat Monitoring; Complete Time: 17:24 sb4 EC:19 Rate is 80 beats/min. Rhythm is irregular, Junctional rhythm. QRS interval is normal at sb4 96 msec. QT interval is prolonged at 432 msec. Clinical impression: No evidence of ischemia. Interpreted by me. Reviewed by me. Administered Medications: No medications were administered Disposition Summary: 04/04/24 19:08 Hospitalization Ordered Notes: Hospitalization Status: Observation sb4 Provider: Devang Haywood sb4 Condition: Stable sb4 Problem: new sb4 Symptoms: are unchanged sb4 Bed/Room Type: Standard sb4 Location: Telemetry/MedSurg (observation)(04/05/24 07:29) bd Room Assignment: 408(04/05/24 07:29) bd Diagnosis - Syncope sb4 - End stage renal disease sb4 - Chest pain, unspecified sb4 Discharge Instructions: - Discharge Summary Sheet sb4 - Syncope, [id number] sb4 Forms: - Medication Reconciliation Form sb4 - SBAR form sb4 - Leadership Thank You Letter sb4 Addendum: 04/07/2024 07:29 Co-signature as Attending Physician, Sunny Lake MD I agree with the assessment and c andrade plan of care. Signatures: Dispatcher [employer] EDMS Sravani Galaviz Corey, MD MD cha Calcote, Vanessa, RN RN vc1 Alessandra Mosley PA-C PA-C sb4 Dolly Marshall, RN RN kj2 Corrections: (The following items were deleted from the chart) 04/04 17:11 17:11 BASIC METABOLIC PANEL+C.LAB.BRZ ordered. EDMS EDMS 17:11 17:11 CBC+H.LAB.BRZ ordered. EDMS EDMS 17:11 17:11 HEPATIC FUNCTION+C.LAB.BRZ ordered. EDMS EDMS 17:11 17:11 MAGNESIUM+C.LAB.BRZ ordered. EDMS EDMS 17:11 17:11 PROBNP+C.LAB.BRZ ordered. EDMS EDMS 17:11 17:11 PROTIME (+INR)+COAG.LAB.BRZ ordered. EDMS EDMS 17: 17:11 Troponin High Sensitivity+C.LAB.BRZ ordered. EDMS EDMS 17:11 17:11 Chest Single View+RAD.RAD.BRZ ordered. EDMS EDMS 17:11 17:11 Extremity Venous Uni Ltd+US.RAD.BRZ ordered. EDMS EDMS 19:30 19:21 Chest Angio ordered. EDMS EDMS 19:37 18:48 Misc. Order ordered. sb4 sb4 20:54 19:08 Telemetry/MedSurg (observation) sb4 vc1 20:54 19:08 sb4 vc1 20:54 20:54 vc1 vc1 04/05 07:29 04/04 20:54 [facility] ER HOLD vc1 bd 04/05 07:29 04/04 20:54 ERHOLD- vc1 bd
--- NOTE | 2024-04-04 19:08 | ER ---
Nurse's Notes [facility] Name: Chase Chacon Jr Age: 48 yrs Sex: Male : 1975 Arrival Date: 04/04/2024 Time: 16:59 Bed 19 Private MD: Diagnosis: Syncope;End stage renal disease;Chest pain, unspecified Presentation: 04/04 17:13 Chief complaint: EMS states: syncopal episodes. Coronavirus screen: Client denies kj2 travel out of the [place] in the last 14 days. Ebola Screen: No symptoms or risks identified at this time. Initial Sepsis Screen: Does the patient meet any 2 criteria? No. Patient's initial sepsis screen is negative. Does the patient have a suspected source of infection? No. Patient's initial sepsis screen is negative. Risk Assessment: Do you want to hurt yourself or someone else? Patient reports no desire to harm self or others. Onset of symptoms was April 04, 2024. 17:13 Method Of Arrival: EMS: [facility] kj2 17:13 Acuity: LEON 4 kj2 Triage Assessment: 17:18 General: Appears in no apparent distress. Behavior is calm, cooperative. Pain: Denies kj2 pain. Neuro: Level of Consciousness is awake, alert, obeys commands, Oriented to person, place, time, situation, Reports does not remeber. Historical: - Allergies: 17:16 Phenergan; kj2 - PMHx: 17:16 Cataract; diabetes mellitus; Gastroparesis; hemodialysis; Hypertensive disorder; kidney kj2 failure; - Immunization history:: Adult Immunizations unknown. - Infectious Disease History:: Denies. - Social history:: Smoking status: Patient denies any tobacco usage or history of. Screenin:15 [facility] ED Fall Risk Assessment (Adult) History of falling in the last 3 months, kj2 including since admission No falls in past 3 months (0 pts) Confusion or Disorientation No (0 pts) Intoxicated or Sedated No (0 pts) Impaired Gait No (0 pts) Mobility Assist Device Used No (0 pt) Altered Elimination No (0 pt) Score/Fall Risk Level 0 - 2 = Low Risk Maintained a safe environment, Hourly rounding (assess needs \T\ fall precautionary measures) done. Abuse screen: Denies threats or abuse. Denies injuries from another. Nutritional screening: No deficits noted. Tuberculosis screening: No symptoms or risk factors identified. Assessment: 17:15 General: see triage assessment. kj2 17:15 Neuro: Level of Consciousness is awake, alert, obeys commands, Oriented to person, kj2 place, time, situation. 18:15 Reassessment: Patient appears in no apparent distress at this time. Patient and/or kj2 family updated on plan of care and expected duration. Pain level reassessed. Patient is alert, oriented x 3, equal unlabored respirations, skin warm/dry/pink. 19:15 Reassessment: Patient appears in no apparent distress at this time. Patient and/or kj2 family updated on plan of care and expected duration. Pain level reassessed. Patient is alert, oriented x 3, equal unlabored respirations, skin warm/dry/pink. 19:43 Cardiovascular: Rhythm is. kj2 21:05 Reassessment: Patient appears in no apparent distress at this time. Patient and/or kj2 family updated on plan of care and expected duration. Pain level reassessed. Patient is alert, oriented x 3, equal unlabored respirations, skin warm/dry/pink. 04/05 01:40 Reassessment: Critical trop result 98.2 reported to hospitalist. ay Vital Signs: 04/04 17:13 BP 142 / 87; Pulse 87; Resp 18; Temp 98; Pulse Ox 100% 2 lpm ; Weight 85 kg; Height 5 kj2 ft. 6 in. ; 17:21 BP 162 / 87; Pulse 83; Resp 22; Temp 98.2; Pulse Ox 95% ; am7 18:15 BP 144 / 82; Pulse 70; Resp 20; Pulse Ox 100% on R/A; kj2 19:15 BP 134 / 74; Pulse 67; Resp 18; Pulse Ox 100% on R/A; kj2 21:05 BP 141 / 72; Pulse 68; Resp 18; Pulse Ox 98% on R/A; kj2 17:13 Body Mass Index 30.25 (85.00 kg, 167.64 cm) kj2 ED Course: 17:10 Patient arrived in ED. sb4 17:10 Alessandra Mosley [facility]-C [facility]. sb4 17:10 Sunny Lake MD is Attending Physician. sb4 17:12 Rolando, Dolly, RN is Primary Nurse. kj2 17:14 Warm blanket given. Verbal reassurance given. am7 17:15 Patient has correct armband on for positive identification. Provided Education on: call kj2 light. 17:15 Arm band placed on Patient placed in an exam room, on a stretcher. kj2 17:15 EKG done, by ED staff, reviewed by Alessandra Mosley PA-C. am7 17:16 Triage completed. kj2 17:28 No provider procedures requiring assistance completed. Maintain EMS IV. IV Flushed kj2 right antecubital. 17:43 Extremity Venous Uni Ltd US In Process Unspecified. EDMS 18:18 XRAY Chest (1 view) In Process Unspecified. EDMS 19:07 Devang Haywood MD is Hospitalizing Provider. sb4 21:05 Chest For Pe Angio In Process Unspecified. EDMS 21:11 Report given to JENNIE Chaudhary. kj2 Administered Medications: No medications were administered Medication: 17:27 VIS not applicable for this client. kj2 Outcome: 19:08 Decision to Hospitalize by Provider. sb4 04/05 10:09 Patient left the ED. kc6 Signatures: Dispatcher [employer] EDMS Esperanza Bertrand, RN RN Alessandra Rogers PA-C PARoryC sb4 Dolly Marshall, RN RN kj2 Triny Alvarez am7 Mitul Fuentes, RN RN ay
--- NOTE | 2024-04-04 19:29 | P.HP ---
Certification for Inpatient Patient admitted to: Inpatient With expected LOS: >2 Midnights Practitioner: I am a practitioner with admitting privileges, knowledge of patient current condition, hospital course, and medical plan of care. Services: Services provided to patient in accordance with Admission requirements found in Title 42 Section 412.3 of the Code of Federal Regulations Patient History Date of Service: 04/04/24 Reason for admission: Syncope/ Cardiac Arrest History of Present Illness: 48 yrs old Male with past medical history of hypertension, hyperlipidem ia, diabetes, gastroparesis, ESRD on dialysis, cataract, CAD status post CABG who was brought from dialysis center after suffering a syncopal episode. Patient was receiving hemodialysis this afternoon when he states he felt a cramp in his leg, repositioned, all of a sudden got lightheaded and then had a syncopal episode. Also states that his blood pressure had dropped. Patient apparently lost the pulse and had a CPR done at the dialysis center. Patient denies any chest pain. No nausea vomiting or diarrhea. No fever or chills. Patient was assessed in the ER and is admitted for further management Allergies No Known Allergies Allergy (Verified 03/11/23 10:00) Home medications list reviewed: Yes Home Medications: Nifedipine [Nifedipine ER] 90 mg PO DAILY 01/15/21 Aspirin [Aspirin EC 81 MG] 81 mg PO DAILY 12/18/21 Atorvastatin Calcium 1 tab PO BEDTIME 04/24/22 Dicyclomine [Bentyl*] 1 cap PO TID 04/24/22 Hydralazine [Apresoline*] 1 tab PO Q8HP PRN 04/24/22 Telmisartan 40 mg PO BEDTIME 04/24/22 Promethazine Tab [Phenergan] 25 mg PO Q6HP PRN #30 tab 11/26/22 ALPRAZolam [Xanax] 1 mg PO DAILY 03/07/23 Ezetimibe 10 mg PO DAILY 03/07/23 Hyoscyamine Sulfate [Levsin-Sl] 0.125 mg SL Q6H 03/07/23 Insulin Aspart [Novolog Flexpen] 20 unit SQ TID 03/07/23 Ropinirole HCl 4 mg PO BEDTIME 03/07/23 Sevelamer Carbonate [Renvela] 1 tab PO TID 03/07/23 Ticagrelor [Brilinta] 90 mg PO BID 03/07/23 Tizanidine [Zanaflex] 4 mg PO BEDTIME 03/07/23 atenoloL [Tenormin] 25 mg PO BEDTIME 03/07/23 - Past Medical/Surgical History Diabetic: Yes Past Medical History: Reviewed- Non-Contributory -: DM II with Polyneuropathy -: HTN -: GERD -: Diabetic gastroparesis/ IBS -: ESRD on HD (Dr. Mccoy/ Dr. Mayorga) -: Diastolic CHF. Mitral Stenosis. MR. -: CAD s/p CABG Past Surgical History: Reviewed- Non-Contributory -: Cataract surgery -: Laser for Retinal Detachment -: HD fistula surgery -: CABG Psychosocial/ Personal History: Patient is . He has no children. - Family History Father -: Diabetes, Kidney disease - Social History Alcohol use: Yes CD- Drugs: No Caffeine use: Yes Review of Systems 10-point ROS is otherwise unremarkable Physical Examination - Vital Signs Temperature: 97.9 F Blood Pressure: 112/76 Pulse: 78 Respirations: 18 Pulse Ox (%): 94 - Physical Exam General: Alert, In no apparent distress, Oriented x3 HEENT: Atraumatic, Normocephalic Neck: Supple, JVD not distended Respiratory: Clear to auscultation bilaterally, Normal air movement Cardiovascular: Regular rate/rhythm, Normal S1 S2 Capillary refill: <2 Seconds Gastrointestinal: Soft and benign, W/out hepatosplenomegaly Musculoskeletal: No clubbing, No swelling Integumentary: No rashes Neurological: Normal speech, Normal strength at 5/5 x4 extr Lymphatics: No axilla or inguinal lymphadenopathy - Studies Laboratory Data (last 24 hrs) 04/04/24 04/04/24 04/04/24 17:59 17:59 17:59 WBC 7.00 Hgb 9.2 L Hct 27.1 L Plt Count 115 L PT 14.1 H INR 1.35 Sodium 133 L Potassium 3.3 L BUN 35 H Creatinine 5.65 H Glucose 185 H Magnesium 1.7 Total Bilirubin 1.1 H AST 12 L ALT < 14 L Alkaline Phosphatase 116 Assessment and Plan - Plan Syncope Possible cardiac arrest Status post CPR Monitor closely on telemetry Electrolytes monitor and replace accordingly Cardiac enzymes trended CT chest negative for PE History of CAD status post CABG Continue home medications and titrate as needed Hypertension Antihypertensives titrated Continue home medications and titrate as needed Hyperlipidemia Continue statin ESRD on hemodialysis Monitor renal parameters Nephrology consulted Hyponatremia Hypokalemia Electrolytes monitor and replace accordingly Diabetes Insulin sliding scale Accu-Chek before every meal and at bedtime Anemia of chronic disease Monitor H&H closely No overt bleeding at this time GI/DVT prophylaxis Advanced directive full code Discharge Plan: Home Plan to discharge in: 48 Hours - Advance Directives Does patient have a Living Will: No Does patient have a Durable POA for Healthcare: Yes - Code Status/Comfort Care Code Status: Full Code Time Spent Managing Pts Care (In Minutes): 48
[2024-04-04] MEDS ORDERED: ONDANSETRON 4 MG/2 ML VIAL IV PRN (20:56)
[2024-04-04] MEDS: HEPARIN 5000 UNIT/ML 1 ML VIAL SQ SCH (21:00)
--- NOTE | 2024-04-04 21:44 | RAD REPORT ---
EXAM: CT Chest For Pe Angio TECHNIQUE: CT angiogram of the chest was performed following intravenous contrast administration, inc luding sagittal and coronal as well as maximum intensity projection reformats. One or more of the following dose reduction techniques were used: Automated exposure control, adjustment of the mA and k V according to patient size, and iterative reconstruction. Unless otherwise specified, incidental findings do not require dedicated imaging follow-up. INDICATION: [facility] MAIN PE protocol COMPARISON: Chest radiograph of the same day. FINDINGS: LINES/TUBES: None. PULMONARY ARTERIES: Main pulmonary arteries are normal in caliber. No filling defects within the pul monary arteries to suggest pulmonary embolus. LUNGS AND AIRWAYS: Central airways are patent. Subsegmental dependent atelectatic changes with centra l interstitial prominence. PLEURA: No effusion or pneumothorax. HEART AND MEDIASTINUM: The visualized thyroid gland is normal. No mediastinal, hilar, or axillary lym phadenopathy. Heart is unremarkable. No pericardial effusion. SOFT TISSUES AND BONES: Healing left second through sixth rib fractures and right second through eigh th rib fractures. No significant soft tissue finding. UPPER ABDOMEN: Moderate to large ascites seen in the upper abdomen. IMPRESSION: No evidence of acute central pulmonary emboli. Findings suggesting central congestion or CHF. Bilateral healing rib fractures as above. Moderate to large ascites seen in the upper abdomen.
[2024-04-04] MEDS ORDERED: HEPARIN 5000 UNIT/ML 1 ML VIAL ONE (22:39)
[2024-04-05] MEDS ORDERED: PROMETHAZINE 25 MG TABLET PO PRN (01:55)
[2024-04-05] MEDS ORDERED: HYDRALAZINE HCL 10 MG TABLET PO PRN (01:55)
[2024-04-05 02:46] VITALS: BMI 30.2
[2024-04-05 05:15] LABS: Absolute Eosinophils 0.1 K/uL (0-0.5); Absolute Lymphocytes (CBC) 0.9 K/uL (0.7-4.9); Absolute Monocytes 0.4 K/uL (0.1-1.3); Absolute Neutrophil 3.9 K/uL (1.8-8.0); Basophils % 0.8 % (0-1.3); Eosinophils % 1.9 % (0-4.4); Hematocrit 28.5 % (39.6-49.0); Hemoglobin 9.9 g/dL (13.6-17.9); Lymphocytes % 17.6 % (15.3-44.8); MCH 32.9 pg (27.0-35.0); MCHC 34.6 g/dL (32.0-36.0); MPV 8.7 fL (7.6-11.3); Monocytes % 7.3 % (3.3-12.3); Neutrophils % 72.4 % (41.7-73.7); Platelets 117 thou/uL (152-406); Red Cell Distribution Width 16.3 % (12.1-15.2)
[2024-04-05 06:05] LABS: AST/SGOT 15 U/L (15-37); Albumin 3.2 g/dL (3.4-5.0); Albumin/Globulin Ratio 0.9 (1.1-1.8); Alkaline Phosphatase 139 U/L (45-117); Anion Gap 15.9 mEq/L (5.0-15.0); BUN Blood Urea Nitrogen 47 mg/dL (7-18); Bicarbonate 22 mEq/L (21-32); Bilirubin Total 1.3 mg/dL (0.2-1.0); Globulin 3.4 g/dL (2.3-3.5); Glomerular Filtration Rate 52 ml/min (=/>90); Glucose Level 175 mg/dL (74-106); Phosphorus 3.7 mg/dL (2.5-4.9); Potassium 3.9 mEq/L (3.5-5.1); Protein, Total 6.6 g/dL (6.4-8.2); Sodium Level 131 mEq/L (136-145)
[2024-04-05 06:09] LABS: ALT/SGPT < 14 U/L (16-61); Troponin High Sensitivity 71.1 pg/mL (<58.9)
[2024-04-05] MEDS: INSULIN LISPRO 100 UNIT/1 ML SQ SCH (08:00)
[2024-04-05] MEDS: SEVELAMER CARBONATE 800 MG TABLET PO SCH (08:00)
[2024-04-05] MEDS: DICYCLOMINE HCL 10 MG CAP PO SCH (09:00)
[2024-04-05] MEDS: ALPRAZOLAM 1 MG TABLET PO SCH (09:00)
[2024-04-05] MEDS: TICAGRELOR 90 MG TABLET PO SCH (09:00)
[2024-04-05] MEDS: ASPIRIN EC 81 MG TAB PO SCH (09:00)
[2024-04-05] MEDS ORDERED: NIFEDIPINE XL 30 MG TABLET PO SCH (09:00)
[2024-04-05] MEDS ORDERED: INSULIN LISPRO 100 UNIT/1 ML ONE (09:14)
[2024-04-05] MEDS ORDERED: DICYCLOMINE HCL 10 MG CAP ONE (09:55)
[2024-04-05] MEDS ORDERED: TICAGRELOR 90 MG TABLET PO ONE (09:55)
[2024-04-05] MEDS ORDERED: ASPIRIN EC 81 MG TAB PO ONE (09:56)
[2024-04-05] MEDS ORDERED: HEPARIN 5000 UNIT/ML 1 ML VIAL ONE (09:56)
[2024-04-05] MEDS ORDERED: ALPRAZOLAM 1 MG TABLET ONE (09:56)
[2024-04-05] MEDS: EZETIMIBE 10 MG TAB PO SCH (12:22)
[2024-04-05] MEDS: NIFEDIPINE XL 90 MG TABLET PO SCH (12:23)
--- NOTE | 2024-04-05 12:41 | P.CNS ---
Date of Consult: 04/05/24 Chief Complaint: Syncope/ Cardiac Arrest History of Present Illness: Patient with PMH of CAD s/p CABG x 3, ESRD on HD, presented with syncope, questionable cardiac arrest during dialysis, patient story is not very clear, he mention that he had leg cramps during dialysis and when he tried to reposition himself, he passed out and they had to do CPR to bring him back, patient denies chest pain at time of event, report sternal chest pain from pushing on his chest. no other cardiac symptoms. Allergies No Known Allergies Allergy (Verified 03/11/23 10:00) Home medications list reviewed: Yes Home Medications: Nifedipine [Nifedipine ER] 90 mg PO DAILY 01/15/21 Aspirin [Aspirin EC 81 MG] 81 mg PO DAILY 12/18/21 Atorvastatin Calcium 1 tab PO BEDTIME 04/24/22 Dicyclomine [Bentyl*] 1 cap PO TID 04/24/22 Hydralazine [Apresoline*] 1 tab PO Q8HP PRN 04/24/22 Telmisartan 40 mg PO BEDTIME 04/24/22 Promethazine Tab [Phenergan] 25 mg PO Q6HP PRN #30 tab 11/26/22 ALPRAZolam [Xanax] 1 mg PO DAILY 03/07/23 Ezetimibe 10 mg PO DAILY 03/07/23 Hyoscyamine Sulfate [Levsin-Sl] 0.125 mg SL Q6H 03/07/23 Insulin Aspart [Novolog Flexpen] 20 unit SQ TID 03/07/23 Ropinirole HCl 4 mg PO BEDTIME 03/07/23 Sevelamer Carbonate [Renvela] 1 tab PO TID 03/07/23 Ticagrelor [Brilinta] 90 mg PO BID 03/07/23 Tizanidine [Zanaflex] 4 mg PO BEDTIME 03/07/23 atenoloL [Tenormin] 25 mg PO BEDTIME 03/07/23 - Past Medical/Surgical History Diabetic: Yes -: DM II with Polyneuropathy -: HTN -: GERD -: Diabetic gastroparesis/ IBS -: ESRD on HD (Dr. Mccoy/ Dr. Mayorga) -: Diastolic CHF. Mitral Stenosis. MR. -: CAD s/p CABG -: Cataract surgery -: Laser for Retinal Detachment -: HD fistula surgery -: CABG Psychosocial/ Personal History: Patient is . He has no children. - Family History Father Medical History: Diabetes, Kidney disease - Social History Smoking Status: Unknown if ever smoked Alcohol use: Yes CD- Drugs: No Caffeine use: Yes Review of Systems 10-point ROS is otherwise unremarkable Physical Examination Temp Pulse Resp BP Pulse Ox 98.2 F 70 18 134/76 91 04/05/24 08:00 04/05/24 12:23 04/05/24 08:00 04/05/24 08:00 04/05/24 08:00 General: Alert, In no apparent distress HEENT: Atraumatic, PERRLA, Mucous membr. moist/pink, EOMI, Sclerae nonicteric Neck: Supple, 2+ carotid pulse no bruit, No LAD, Without JVD or thyroid abnorma lity Respiratory: Clear to auscultation bilaterally, Normal air movement Cardiovascular: Regular rate/rhythm, Normal S1 S2 Gastrointestinal: Normal bowel sounds, No tenderness Musculoskeletal: No tenderness Integumentary: No rashes Neurological: Normal gait, Normal speech, Normal tone, Normal affect Lymphatics: No axilla or inguinal lymphadenopathy Laboratory Data (last 24 hrs) 04/04/24 04/04/24 04/04/24 17:59 17:59 17:59 WBC 7.00 Hgb 9.2 L Hct 27.1 L Plt Count 115 L PT 14.1 H INR 1.35 Sodium 133 L Potassium 3.3 L BUN 35 H Creatinine 5.65 H Glucose 185 H Magnesium 1.7 Total Bilirubin 1.1 H AST 12 L ALT < 14 L Alkaline Phosphatase 116 - Problems (1) NSTEMI (non-ST elevated myocardial infarction) Current Visit: Yes Status: Acute Plan: Patient denies having active chest pain, he got muscucloskeletal pain probably of pushing down on his chest, cardiac enzymes are mild elevated and trended down which goes against having a cardiac event. continue ASA and Brilinta continue lipitor (2) Syncope Current Visit: Yes Status: Acute Plan: most likely vagal in nature. 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
--- NOTE | 2024-04-05 16:19 | P.CNS ---
Date of Consult: 04/05/24 Reason for Consult: ESRD, syncope Requesting Physician: Emile Haywood Chief Complaint: Syncope/ Cardiac Arrest History of Present Illness: 48 yrs old Male with past medical history of chronic labile hypertension, chronic Type II diabetes, gastroparesis, ESRD on dialysis chronically MWF at [facility] unit, CAD status post CABG within the past two years who was brought from dialysis center after developing an episode it appears on dialysis where he had a syncopal episode. Pt recalls experiencing a leg cramp prior to incident. Unclear if pt truly had lost of pulse or duration of any CPR at the unit. I did attempt to call the unit to get additional information but the RN who took care of pt yesterday was not there. Pt had a similar episode last summer and was transferred to a [facility] hospital where he ultimately made a full recovery but in past months has continued to come in with large inter dialytic weights gains requiring larger volume ultrafiltration on treatments. Patient currently reports some chest soreness from the compression. He denies outright dyspnea. He has been OOB without orthostatic symptoms. Allergies No Known Allergies Allergy (Verified 03/11/23 10:00) Home Medications: Nifedipine [Nifedipine ER] 90 mg PO DAILY 01/15/21 Aspirin [Aspirin EC 81 MG] 81 mg PO DAILY 12/18/21 Atorvastatin Calcium 1 tab PO BEDTIME 04/24/22 Dicyclomine [Bentyl*] 1 cap PO TID 04/24/22 Hydralazine [Apresoline*] 1 tab PO Q8HP PRN 04/24/22 Telmisartan 40 mg PO BEDTIME 04/24/22 Promethazine Tab [Phenergan] 25 mg PO Q6HP PRN #30 tab 11/26/22 ALPRAZolam [Xanax] 1 mg PO DAILY 03/07/23 Ezetimibe 10 mg PO DAILY 03/07/23 Hyoscyamine Sulfate [Levsin-Sl] 0.125 mg SL Q6H 03/07/23 Insulin Aspart [Novolog Flexpen] 20 unit SQ TID 03/07/23 Ropinirole HCl 4 mg PO BEDTIME 03/07/23 Sevelamer Carbonate [Renvela] 1 tab PO TID 03/07/23 Ticagrelor [Brilinta] 90 mg PO BID 03/07/23 Tizanidine [Zanaflex] 4 mg PO BEDTIME 03/07/23 atenoloL [Tenormin] 25 mg PO BEDTIME 03/07/23 - Past Medical/Surgical History Diabetic: Yes -: DM II with Polyneuropathy -: HTN -: GERD -: Diabetic gastroparesis/ IBS -: ESRD on HD (Dr. Mccoy/ Dr. Mayorga) -: Diastolic CHF. Mitral Stenosis. MR. -: CAD s/p CABG -: Cataract surgery -: Laser for Retinal Detachment -: HD fistula surgery -: CABG Psychosocial/ Personal History: Patient is . He has no children. - Family History Father Medical History: Diabetes, Kidney disease - Social History Smoking Status: Unknown if ever smoked Alcohol use: Yes CD- Drugs: No Caffeine use: Yes Review of Systems General: Unremarkable Eyes: Unremarkable ENT: Unremarkable Respiratory: As per HPI Cardiovascular: As per HPI Gastrointestinal: Unremarkable Genitourinary: Unremarkable Musculoskeletal: Other (chest soreness) Integumentary: Unremarkable Neurological: As per HPI Lymphatics: Unremarkable Physical Examination Temp Pulse Resp BP Pulse Ox 98.1 F 70 20 107/66 90 L 04/05/24 12:00 04/05/24 12:23 04/05/24 12:00 04/05/24 12:00 04/05/24 12:00 General: Alert, In no apparent distress, Cooperative HEENT: Atraumatic, Normocephalic Neck: Supple Respiratory: Normal air movement, Other (no rhonchi) Cardiovascular: Other (non tachy, mostly regular, upper chest implanted loop recorded, mild distal edema) Gastrointestinal: No tenderness, Distended, Ascites Musculoskeletal: No contractures Integumentary: No rashes Neurological: Normal speech, Normal tone, Normal affect Laboratory Data (last 24 hrs) 04/04/24 04/04/24 04/04/24 17:59 17:59 17:59 WBC 7.00 Hgb 9.2 L Hct 27.1 L Plt Count 115 L PT 14.1 H INR 1.35 Sodium 133 L Potassium 3.3 L BUN 35 H Creatinine 5.65 H Glucose 185 H Magnesium 1.7 Total Bilirubin 1.1 H AST 12 L ALT < 14 L Alkaline Phosphatase 116 Conclusions/Impression: A/P) 1. ESRD 2nd to chronic conditions on iHD -pt received partial HD yesterday, will review treatment logs, MWF pts had been brought in on Sun due to weather. Labs this AM likely spurious and possibly diluted or other. Repeat renal panel in AM 2. Will place orders for gentle HD tmrw for clearance and UF, see orders for details 3. Syncope, other. Recurrent. Possibly intra dialytic hypotension or fluid shift related, +/- neurocardiogenic syncope, pt reports cramping at the time. Prior such episode last summer, leading to again then possible CPR, initial hypotension/ICU care before full recovery with neg w/u then other than acute on chronic anemia then. Will need to get his loop recorded findings reviewed. History of large IDWG, necessitating larger UF goals, will have to again review UF limits, HD orders 4, Chronic HTN with CKD and heart failure, labile BP -need to clarify home BP regimen, sees Cardiology who also makes changes. Colin Mayorga MD, AMADEO
[2024-04-05] MEDS ORDERED: PNEUMOCOCCAL VACCINE 0.5 ML IMVAC ONE (20:00)
[2024-04-05] MEDS: ROPINIROLE HCL 1 MG TAB PO SCH (20:02)
[2024-04-05] MEDS: ATORVASTATIN 40 MG TAB PO SCH (20:02)
[2024-04-05] MEDS: atenoloL 25 MG TAB PO SCH (20:02)
[2024-04-05] MEDS: LOPERAMIDE HCL 2 MG CAPSULE PO ONE (20:03)
[2024-04-05] MEDS: VALSARTAN 80 MG TAB PO SCH (20:03)
[2024-04-05] MEDS: ACETAMINOPHEN 325 MG TABLET PO PRN (20:08)
[2024-04-05] MEDS ORDERED: ROPINIROLE HCL 1 MG TAB PO SCH (21:00)
[2024-04-05] MEDS ORDERED: TIZANIDINE 4 MG TABLET PO SCH (21:00)
[2024-04-06 06:49] LABS: Absolute Eosinophils 0.2 K/uL (0-0.5); Absolute Lymphocytes (CBC) 0.8 K/uL (0.7-4.9); Absolute Monocytes 0.7 K/uL (0.1-1.3); Absolute Neutrophil 5.2 K/uL (1.8-8.0); Basophils % 0.6 % (0-1.3); Eosinophils % 2.2 % (0-4.4); Hematocrit 24.7 % (39.6-49.0); Hemoglobin 8.6 g/dL (13.6-17.9); MCH 32.5 pg (27.0-35.0); MCHC 34.8 g/dL (32.0-36.0); MCV 93.5 fL (80-100); MPV 8.8 fL (7.6-11.3); Neutrophils % 75.2 % (41.7-73.7); Platelets 112 thou/uL (152-406); RBC Red Blood Cell Count 2.64 M/uL (4.33-5.43); Red Cell Distribution Width 16.1 % (12.1-15.2)
[2024-04-06 07:32] LABS: Albumin 2.8 g/dL (3.4-5.0); Phosphorus 5.2 mg/dL (2.5-4.9)
[2024-04-06] MEDS: NIFEDIPINE XL 60 MG TABLET PO SCH (08:41)
[2024-04-06] MEDS: ALBUMIN HUMAN 25% 100 ML IV ONE (10:44)
[2024-04-06 11:55] LABS: Hepatitis B Surface Ab - Quant > 1000.00 mIU/mL (<8.0); Hepatitis B surface AG Interp. Nonreactive (Nonreactive)
[2024-04-06 11:56] LABS: HBsAG Nonreactive Report Report
[2024-04-06] MEDS: TIZANIDINE 4 MG TABLET PO PRN (23:10)
[2024-04-07] MEDS: MORPHINE 2 MG/ML SYR IV PRN (06:08)
[2024-04-07 09:22] VITALS: TEMP 97.3
[2024-04-07 12:40] VITALS: O2SAT 100
[2024-04-07 13:00] VITALS: BP 98/64
[2024-04-07] MEDS ORDERED: GLUCAGON 1 MG/VIAL IM PRN (16:29)
[2024-04-07] MEDS: D10W 125 ML IV PRN (16:30)
--- NOTE | 2024-04-07 21:32 | P.PN ---
Date of Service: 04/07/24 Vital Signs Temp Pulse Resp BP Pulse Ox 97.3 F 58 16 98/64 93 04/07/24 12:00 04/07/24 12:00 04/07/24 12:00 04/07/24 12:00 04/07/24 12:00 Assessment/ Plan: Nephrology No dyspnea No chest pain Feeling better No acute events overnight Vitals, medications, blood work and imaging reviewed in the chart NAD. MMM. NCAT. Normal Respiratory Effort. S1S2. ND Abd. No C/C/E. No rash. AAO. Normal speech. ESRD on HD MWF -Acute HD today HTN with CKD/ CHF -Continue Atenolol -Continue Nifedipine & Diovan Diastolic CHF, A/C -UF with HD DM II with CKD -NICOLÁS Anemia in CKD -Retacrit prn CKD MBD -Continue Renvela Case reviewed with hospitalist team
[2024-04-08] MEDS ORDERED: INSULIN LISPRO 100 UNIT/1 ML SQ SCH (07:30)
--- NOTE | 2024-04-08 13:06 | EKG ---
Test Date: 2024-04-04 Test Time: 17:08:41 Helpdesk Specialist: AM MEASUREMENT RESULTS: Intervals: Rate: 80 MN: QRSD: 96 QT: 432 QTc: 498 Stanton: P: MN: QRS: -80 T: 94 INTERPRETIVE STATEMENTS: Normal sinus rhythm Left axis deviation Nonspecific ST and T wave abnormality Prolonged QT Abnormal ECG Compared to ECG 08/07/2023 14:15:56 ST (T wave) deviation now present Sinus rhythm no longer present T-wave abnormality no longer present Electronically Signed On 04-08-24 13:01:[address] by Robin Gomez
== END 2024-04-07 19:15 | disposition home or self-care (01) | DRG 280 ==
LOC: ER 16:59 → ERHOLD 20:56 → 4TH 04-05 07:43
PROVIDERS: ADMIT Family Medicine; ATTEND Hospitalist
PROC: 5A1D70Z Performance of Urinary Filtration, Intermittent, Less than 6 Hours Per Day (ICD-10-PCS; principal; 2024-04-05)
DX: I21.4 Non-ST elevation (NSTEMI) myocardial infarction (principal); I50.33 Acute on chronic diastolic (congestive) heart failure; N18.6 End stage renal disease; I13.2 Hypertensive heart and chronic kidney disease with heart failure and with stage 5 chronic kidney disease, or end stage renal disease; E87.1 Hypo-osmolality and hyponatremia; R55 Syncope and collapse; E11.22 Type 2 diabetes mellitus with diabetic chronic kidney disease; E11.42 Type 2 diabetes mellitus with diabetic polyneuropathy; D63.1 Anemia in chronic kidney disease; E87.6 Hypokalemia; E66.9 Obesity, unspecified; E78.5 Hyperlipidemia, unspecified; I25.10 Atherosclerotic heart disease of native coronary artery without angina pectoris; Z99.2 Dependence on renal dialysis; Z88.8 Allergy status to other drugs, medicaments and biological substances; Z68.30 Body mass index [BMI] 30.0-30.9, adult; Z95.1 Presence of aortocoronary bypass graft; Z79.82 Long term (current) use of aspirin; Z79.4 Long term (current) use of insulin; Z79.899 Other long term (current) drug therapy
CPT/HCPCS: 36415; 71045; 71275; 80048; 80053; 80069; 80076; 82947; 83735; 83880; 84100; 84484; 85025; 85610; 86706; 87340; 90935; 93005; 93971; 94760; 99283; J1644; J2270; P9047; Q9967

== ENCOUNTER 2024-07-23 10:38 | Inpatient (IN) | payer OTHER ==
[2024-07-23 11:04] LABS: Absolute Basophils 0.1 K/uL (0-0.5); Absolute Eosinophils 0.2 K/uL (0-0.5); Absolute Lymphocytes (CBC) 1.1 K/uL (0.7-4.9); Absolute Monocytes 0.5 K/uL (0.1-1.3); Absolute Neutrophil 6.5 K/uL (1.8-8.0); Basophils % 0.8 % (0-1.3); Eosinophils % 2.7 % (0-4.4); Hematocrit 31.1 % (39.6-49.0); Hemoglobin 10.6 g/dL (13.6-17.9); Lymphocytes % 13.3 % (15.3-44.8); MCH 30.8 pg (27.0-35.0); MCHC 33.9 g/dL (32.0-36.0); MCV 90.9 fL (80-100); MPV 8.6 fL (7.6-11.3); Monocytes % 6.2 % (3.3-12.3); Nucleated Red Blood Cells % 0.1 % (0-0); Platelets 144 thou/uL (152-406); RBC Red Blood Cell Count 3.42 M/uL (4.33-5.43); Red Cell Distribution Width 16.8 % (12.1-15.2)
[2024-07-23 11:11] LABS: PT Prothrombin Time 13.7 SECONDS (10-13.0); Protime INR 1.21
--- NOTE | 2024-07-23 11:16 | RAD REPORT ---
EXAM: Chest Single View HISTORY: 49 years Male DYSPNEA COMPARISON: 04/04/2024 FINDINGS: LUNGS/PLEURA: Diffuse prominence of the pulmonary interstitium. CARDIAC/MEDIASTINUM: Moderate cardiomegaly. UPPER ABDOMEN: No significant abnormality. BONES: Sternotomy. No acute fracture. LINES/TUBES/OTHER: Loop recorder. IMPRESSION: Findings consistent with pulmonary edema.
[2024-07-23 11:22] LABS: Anion Gap 15.2 mEq/L (5.0-15.0); Potassium 5.2 mEq/L (3.5-5.1); Troponin High Sensitivity 45.5 pg/mL (<58.9)
--- NOTE | 2024-07-23 11:55 | ER ---
Nurse's Notes [facility] Name: Chase Chacon Jr Age: 49 yrs Sex: Male : 1975 Arrival Date: 07/23/2024 Time: 10:38 Bed 3 Private MD: Diagnosis: End stage renal disease;Acute pulmonary edema;Dyspnea Presentation: 07/23 11:06 Chief complaint: Patient states: Toned out to dialysis for pt confused. Dialysis clinic ld1 reports patient walking into dialysis, sitting in chair then slumping over snoring. Pt denies taking medication. Denies pain, not SOB. Coronavirus screen: At this time, the client does not indicate any symptoms associated with coronavirus-19. Ebola Screen: No symptoms or risks identified at this time. Initial Sepsis Screen: Does the patient meet any 2 criteria? No. Patient's initial sepsis screen is negative. Does the patient have a suspected source of infection? No. Patient's initial sepsis screen is negative. Risk Assessment: Do you want to hurt yourself or someone else? Patient reports no desire to harm self or others. Onset of symptoms was July 23, 2024. 11:06 Method Of Arrival: EMS: [facility] ld1 11:06 Acuity: LEON 3 ld1 Triage Assessment: 11:08 General: Appears in no apparent distress. comfortable, Behavior is calm, cooperative. ld1 Pain: Denies pain. EENT: No signs and/or symptoms were reported regarding the EENT system. Neuro: Level of Consciousness is awake, alert, obeys commands, Oriented to person, place, time, situation. Cardiovascular: Capillary refill < 3 seconds Patient's skin is warm and dry. Rhythm is sinus rhythm. Respiratory: Airway is patent Respiratory effort is even, unlabored. GI: Abdomen is round obese. : No signs and/or symptoms were reported regarding the genitourinary system. Derm: No signs and/or symptoms reported regarding the dermatologic system. Musculoskeletal: No signs and/or symptoms reported regarding the musculoskeletal system. Historical: - Allergies: 11:08 Phenergan; ld1 - PMHx: 11:08 Cataract; diabetes mellitus; Gastroparesis; hemodialysis; Hypertensive disorder; kidney ld1 failure; - PSHx: 11:08 heart bypass; Left arm dialysis fistula; ld1 - Immunization history:: Adult Immunizations up to date. - Infectious Disease History:: Denies. - Social history:: Smoking status: Patient denies any tobacco usage or history of. - Family history:: not pertinent. - Hospitalizations: : No recent hospitalization is reported. Screenin:12 [facility] ED Fall Risk Assessment (Adult) History of falling in the last 3 months, ld1 including since admission No falls in past 3 months (0 pts) Confusion or Disorientation No (0 pts) Intoxicated or Sedated No (0 pts) Impaired Gait No (0 pts) Mobility Assist Device Used No (0 pt) Altered Elimination No (0 pt) Score/Fall Risk Level 0 - 2 = Low Risk Oriented to surroundings, Hourly rounding (assess needs \T\ fall precautionary measures) done. Abuse screen: Denies threats or abuse. Denies injuries from another. Nutritional screening: No deficits noted. Tuberculosis screening: No symptoms or risk factors identified. Assessment: 11:12 Reassessment: See triage assessment. ld1 13:17 Reassessment: ADMIT INITIATED. bp 13:56 Reassessment: Patient appears in no apparent distress at this time. No changes from ld1 previously documented assessment. Patient and/or family updated on plan of care and expected duration. Pain level reassessed. 13:56 Reassessment: Pt transported to Dialysis. ld1 19:35 Reassessment: SBAR TUBED TO 2ND FLOOR. jj7 Vital Signs: 11:06 BP 188 / 96; Pulse 64; Resp 22; Temp 98.1(TE); Pulse Ox 94% on R/A; Weight 92.53 kg; ld1 Height 5 ft. 10 in. ; Pain 0/10; 13:16 BP 199 / 56; Pulse 63; Resp 15; Pulse Ox 91% ; bp 13:50 BP 178 / 92; Pulse 66; Resp 18; Pulse Ox 96% on R/A; ld1 11:06 Body Mass Index 29.27 (92.53 kg, 177.8 cm) ld1 11:06 Pain Scale: Adult ld1 ED Course: 10:38 Patient arrived in ED. rn 10:38 Michael Mackey MD is Attending Physician. rn 11:08 Triage completed. ld1 11:08 Arm band placed on right wrist. ld1 11:10 XRAY Chest (1 view) In Process Unspecified. EDMS 11:11 Nell Grimes, RN is Primary Nurse. ld1 11:12 Patient has correct armband on for positive identification. Placed in gown. Bed in low ld1 position. Call light in reach. Side rails up X2. threat monitoring analyst on. Pulse ox on. NIBP on. Door closed. Noise minimized. Warm blanket given. 11:12 No provider procedures requiring assistance completed. Maintain EMS IV. Dressing ld1 intact. Good blood return noted. Site clean \T\ dry. Gauge \T\ site: 20G RW. 11:54 Cecil Peng MD is Hospitalizing Provider. rn 19:35 Patient admitted, IV remains in place. jj7 Administered Medications: No medications were administered Medication: 11:12 VIS not applicable for this client. ld1 Outcome: 11:54 Decision to Hospitalize by Provider. rn 19:35 Admitted to Med/surg accompanied by tech, via wheelchair, room 217, Report called to jj7 TUBED TO 2ND FLOOR. FAX ISN'T WORKING 19:35 Condition: improved 19:51 Patient left the ED. [email or web address] Signatures: Dispatcher [employer] EDMS Michael Mackey MD MD rn Peltier, Brian, RN RN Nell Watson, RN RN ld1 Fredis Jiménez RN RN carol
--- NOTE | 2024-07-23 11:55 | EDPHYS ---
Physician Documentation [facility] Name: Chase Chacon Jr Age: 49 yrs Sex: Male : 1975 Arrival Date: 07/23/2024 Time: 10:38 Bed 3 Private MD: ED Physician Michael Mackey HPI: 07/23 11:51 This 49 yrs old Male presents to ER via EMS with complaints of sob. rn 11:51 The patient has shortness of breath at rest, with light activity. Patient was sent from [facility] pattern [facility] for somnolence and dyspnea. Patient did not receive dialysis today. No fever or chills. Denies chest pain. Patient reports feels like this when he is volume overloaded. Last dialysis was Friday.. Historical: - Allergies: 11:08 Phenergan; ld1 - PMHx: 11:08 Cataract; diabetes mellitus; Gastroparesis; hemodialysis; Hypertensive disorder; kidney ld1 failure; - PSHx: 11:08 heart bypass; Left arm dialysis fistula; ld1 - Immunization history:: Adult Immunizations up to date. - Infectious Disease History:: Denies. - Social history:: Smoking status: Patient denies any tobacco usage or history of. - Family history:: not pertinent. - Hospitalizations: : No recent hospitalization is reported. ROS: 11:51 Constitutional: Negative for fever, chills, and weight loss, Cardiovascular: Negative rn for chest pain but positive for edema Respiratory: Positive for shortness of breath Abdomen/GI: Negative for abdominal pain, nausea, vomiting, diarrhea, and constipation, MS/Extremity: Negative for injury and deformity, Neuro: Positive for feeling sleepy and generalized weakness Exam: 11:51 Constitutional: This is a well developed, well nourished patient who is somnolent but rn awakens easily to voice Head/Face: Normocephalic, atraumatic. ENT: Dry mucous membranes Cardiovascular: Regular rate and rhythm. No pulse deficits. Respiratory: Mild to moderate tachypnea Abdomen/GI: Distended abdomen, nontender MS/ Extremity: Pulses equal, no cyanosis. Neuro: Somnolent, awakens to voice, moves all 4 extremities with equal strength. 13:13 ECG was reviewed by the Attending Physician. rn Vital Signs: 11:06 BP 188 / 96; Pulse 64; Resp 22; Temp 98.1(TE); Pulse Ox 94% on R/A; Weight 92.53 kg; ld1 Height 5 ft. 10 in. ; Pain 0/10; 13:16 BP 199 / 56; Pulse 63; Resp 15; Pulse Ox 91% ; bp 13:50 BP 178 / 92; Pulse 66; Resp 18; Pulse Ox 96% on R/A; ld1 11:06 Body Mass Index 29.27 (92.53 kg, 177.8 cm) ld1 11:06 Pain Scale: Adult ld1 MDM: 10:38 Medical Screening Exam initiated rn 11:53 Differential diagnosis: pulmonary edema, End-stage renal disease, pulmonary edema, rn anasarca, adverse effect of prescription medication. Data reviewed: vital signs, nurses notes, lab test result(s), EKG, radiologic studies, plain films, and as a result, I will admit patient. Consideration of Admission/Observation Patient was admitted/placed on observation. Escalation of care including admission/observation considered. Counseling: I had a detailed discussion with the patient and/or guardian regarding the historical points, exam findings, and any diagnostic results supporting the discharge/admit diagnosis, lab results, radiology results, the need for further work-up and treatment in the hospital. 07/23 10:43 Order name: Basic Metabolic Panel; Complete Time: 11:47 rn 07/23 10:43 Order name: CBC with Diff; Complete Time: 11:17 rn 07/23 10:43 Order name: NT PRO-BNP; Complete Time: 11:47 rn 07/23 10:43 Order name: PT-INR; Complete Time: 11:17 rn 07/23 10:43 Order name: Troponin HS; Complete Time: 11:47 rn 07/23 12:25 Order name: Basic Metabolic Panel EDRI 07/23 12:25 Order name: Basic Metabolic Panel EDRI 07/23 12:25 Order name: Basic Metabolic Panel EDRI 07/23 12:25 Order name: CBC with Automated Diff EDRI 07/23 12:25 Order name: CBC with Automated Diff EDRI 07/23 12:25 Order name: CBC with Automated Diff EDRI 07/23 12:25 Order name: Hemoglobin A1c EDRI 07/23 12:25 Order name: Hemoglobin A1c EDRI 07/23 18:46 Order name: Glucose, Ancillary Testing EDRI 07/23 10:43 Order name: XRAY Chest (1 view); Complete Time: 11:17 rn 07/23 10:43 Order name: Cardiac monitoring; Complete Time: 10:48 rn 07/23 10:43 Order name: EKG - Nurse/Tech; Complete Time: 10:48 rn 07/23 10:43 Order name: IV Saline Lock; Complete Time: 10:48 rn 07/23 10:43 Order name: Labs collected and sent; Complete Time: 11:06 rn 07/23 10:43 Order name: O2 Per Protocol; Complete Time: 10:48 rn 07/23 10:43 Order name: O2 Sat Monitoring; Complete Time: 10:48 rn 07/23 10:44 Order name: Glucose Level; Complete Time: 11:06 rn EC:13 Rate is 57 beats/min. Rhythm is irregular. Extreme Right axis deviation noted. QRS is rn negative in leads I, aVF. KS interval is normal. QRS interval is normal. QT interval is normal. No Q waves. T waves are Normal. No ST changes noted. Clinical impression: Sinus bradycardia. Interpreted by me. Reviewed by me. Administered Medications: No medications were administered Disposition Summary: 07/23/24 11:54 Hospitalization Ordered Notes: Hospitalization Status: Inpatient Admission rn Provider: Cecil Peng rn Condition: Stable rn Problem: new rn Symptoms: are unchanged rn Bed/Room Type: Standard rn Location: Telemetry/MedSurg (Inpatient)(07/23/24 19:15) [facility] Room Assignment: [facility](07/23/24 19:15) [facility] Diagnosis - End stage renal disease rn - Acute pulmonary edema rn - Dyspnea rn Forms: - Medication Reconciliation Form rn - SBAR form rn - Leadership Thank You Letter rn Signatures: Dispatcher [employer] EDMS Michael Mackey MD MD rn Baxter, Heather RN RN Joanna Allen Lauren RN RN [email or web address] Oly Ellis RN RN [email or web address] Kathy Tee [facility] Corrections: (The following items were deleted from the chart) 10:44 10:44 BASIC METABOLIC PANEL+C.LAB.BRZ ordered. EDMS EDMS 10:44 10:44 CBC+H.LAB.BRZ ordered. EDMS EDMS 10:44 10:44 PROBNP+C.LAB.BRZ ordered. EDMS EDMS 10:44 10:44 PROTIME (+INR)+COAG.LAB.BRZ ordered. EDMS EDMS 10:44 10:44 Troponin High Sensitivity+C.LAB.BRZ ordered. EDMS EDMS 10:44 10:44 Chest Single View+RAD.RAD.BRZ ordered. EDMS EDMS 15:40 11:54 Telemetry/MedSurg (Inpatient) rn eb 15:40 11:54 rn eb 15:57 15:40 2- eb hb 16:31 15:40 Intensive Care Unit eb kb3 16:31 15:57 hb kb3 19:15 16:31 [facility] ER HOLD kb3 kmf 19:15 16:31 ERHOLD- kb3 kmf
[2024-07-23] MEDS: ASPIRIN EC 81 MG TAB PO SCH ×2 (12:17→21:24)
[2024-07-23] MEDS ORDERED: HYDRALAZINE HCL 20 MG/ML VIAL IV PRN (12:17)
[2024-07-23] MEDS: INSULIN GLARGINE 100 UNIT/ML SQ SCH (12:17)
[2024-07-23] MEDS: atenoloL 25 MG TAB PO SCH (12:18)
[2024-07-23] MEDS ORDERED: GLUCAGON 1 MG/VIAL IM PRN (12:19)
[2024-07-23] MEDS ORDERED: ONDANSETRON 4 MG/2 ML VIAL IV PRN (12:19)
[2024-07-23] MEDS ORDERED: D10W 125 ML IV PRN (12:19)
--- NOTE | 2024-07-23 12:31 | P.HP ---
Certification for Inpatient With expected LOS: >2 Midnights Patient will require the following post-hospital care: None Practitioner: I am a practitioner with admitting privileges, knowledge of patient current condition, hospital course, and medical plan of care. Services: Services provided to patient in accordance with Admission requirements found in Title 42 Section 412.3 of the Code of Federal Regulations Patient History Date of Service: 07/23/24 Reason for admission: Volume overload, hyperglycemia History of Present Illness: 49-year-old patient with end-stage renal disease on dialysis, he was transferred from the dialysis center because of confusion and hyperglycemia, blood sugars are improving now, confusion is better now as well, he is being admitted because of volume overload. He has chronic shortness of breath but no recent major change. Complaining of chronic lower extremity edema. He missed insulin this morning, blood sugars over 600 dialysis center as per patient, now they are in 300s. He Is taking care of his mom as she had a heart attack recently, he took the insulin last night but as he was rushing to the dialysis this morning and he missed morning dose of insulin. Denies any other acute complaints at this time. No headache or blackouts. No double vision or blurry vision. No cough or sputum production. No chest pain. No nausea or vomiting. No abdominal pain. No constipation or diarrhea. No blood in the urine or stool. No fever. No joint pains. No recent change in the weight. Review of systems: All other 10 point review of systems are negative other than as mentioned above. Allergies and medications: Reviewed, as per med rec EMR. Past medical history: End-stage renal disease on dialysis, chronic anemia, chronic thrombocytopenia, chronic hyponatremia probably related end-stage renal disease, diabetes mellitus type 2, hypertension, gastroparesis, coronary artery disease status post CABG Past surgical history: Cataract surgery, CABG, fistula for dialysis Social history: No smoking or alcohol or drugs Family history: Mom had history of history of IL or CVA Physical examination: Vital signs: Reviewed, as per EMR. General appearance: Alert and comfortable HEENT: Extraocular movements intact, oral mucosa moist. CVS: Normal S1-S2 Lungs: Clear to auscultation bilaterally Abdomen: Soft, bowel sounds present, no tenderness Extremities: 1-2+ bilateral lower extremity edema present, left leg has Almas wrap's COMPUTATIONAL BIOLOGIST: Moves all 4 extremities, no obvious focal deficits, alert, oriented x 3/3 Musculoskeletal: No obvious joint swelling or tenderness Allergies No Known Allergies Allergy (Verified 03/11/23 10:00) Home Medications: Aspirin [Aspirin EC 81 MG] 81 mg PO DAILY 12/18/21 Atorvastatin Calcium 1 tab PO BEDTIME 04/24/22 Dicyclomine [Bentyl*] 1 cap PO TID 04/24/22 Telmisartan 40 mg PO BEDTIME 04/24/22 Promethazine Tab [Phenergan*] 25 mg PO Q6HP PRN #30 tab 11/26/22 ALPRAZolam [Xanax*] 1 mg PO DAILY 03/07/23 Ezetimibe 10 mg PO DAILY 03/07/23 Hyoscyamine Sulfate [Levsin-Sl] 0.125 mg SL Q6H 03/07/23 Insulin Aspart [Novolog Flexpen] 20 unit SQ TID 03/07/23 Ropinirole HCl 4 mg PO BEDTIME 03/07/23 Sevelamer Carbonate [Renvela] 1 tab PO TID 03/07/23 Ticagrelor [Brilinta*] 90 mg PO BID 03/07/23 Tizanidine [Zanaflex*] 4 mg PO BEDTIME 03/07/23 atenoloL [Tenormin] 25 mg PO BEDTIME 03/07/23 - Past Medical/Surgical History Diabetic: Yes -: DM II with Polyneuropathy -: HTN -: GERD -: Diabetic gastroparesis/ IBS -: ESRD on HD (Dr. Mccoy/ Dr. Mayorga) -: Diastolic CHF. Mitral Stenosis. MR. -: CAD s/p CABG -: Cataract surgery -: Laser for Retinal Detachment -: HD fistula surgery -: CABG Psychosocial/ Personal History: Patient is . He has no children. - Family History Father -: Diabetes, Kidney disease - Social History Alcohol use: Yes CD- Drugs: No Caffeine use: Yes Physical Examination - Studies Laboratory Data (last 24 hrs) 07/23/24 07/23/24 07/23/24 10:51 10:51 10:51 WBC 8.40 Hgb 10.6 L Hct 31.1 L Plt Count 144 L PT 13.7 H INR 1.21 Sodium 132 L Potassium 5.2 H BUN 48 H Creatinine 6.52 H Glucose 393 H Assessment and Plan - Plan Assessment and plan: 1. End-stage renal disease with volume overload: Nephrology was consulted, dialysis as per nephrology, monitor volume status closely post dialysis. 2. Hyperkalemia: Mild, Dialysis as per nephrology, hold ARB for now. 3. Chronic anemia secondary to end-stage renal disease: Monitor closely 4. Chronic thrombocytopenia: Monitor closely 5. Chronic hyponatremia: Probably related to end-stage renal disease, monitor closely with dialysis 6. Diabetes mellitus type 2 with hyperglycemia: Start Lantus, continue sliding scale insulin, monitor sugars closely, check A1c, patient tells me that he takes only sliding scale insulin at home, this is probably the reason for hyperglycemia, he may need Lantus to go home depending on A1c. - Diabetic diet for now. 7. Hypertension: Resume atenolol, hold ARB for now due to hyperkalemia, start as needed hydralazine, monitor blood pressure closely with dialysis. 8. Gastroparesis: Supportive care for now. 9. Coronary artery disease status post CABG: Continue aspirin, beta-christian, statin and Brilinta, monitor for any cardiac symptoms. DVT prophylaxis: Heparin CODE STATUS: He would like to be full code. I did discuss all the above plan with the patient, he understands and agrees with the plan. Accounting Consultant Dr. Mayorga was notified about consult. Discharge plan depending on clinical progress post dialysis. - Advance Directives Does patient have a Living Will: No Does patient have a Durable POA for Healthcare: Yes
[2024-07-23] MEDS: INSULIN REGULAR (HUMAN) 100 UNIT/ML SQ SCH (16:30)
[2024-07-23] MEDS: FUROSEMIDE 40 MG/4 ML VIAL IV SCH (17:00)
[2024-07-23] MEDS: HEPARIN 5000 UNIT/ML 1 ML VIAL SQ SCH (17:00)
--- NOTE | 2024-07-23 17:22 | P.CNS ---
Date of Consult: 07/23/24 Reason for Consult: ESRD, missed HD, fluid overload, hypertensive urgency, pulm edema Requesting Physician: Cecil Peng Chief Complaint: Volume overload, hyperglycemia History of Present Illness: 48 yrs old Male with past medical history of chronic labile, malignant hypertension, chronic Type II diabetes/IDDM with hx of hyperglycemia, gastroparesis with intermittent N/V, ESRD on dialysis chronically MWF at [facility] unit, CAD status post CABG within the past two years who was sent from the dialysis unit this afternoon prior to HD due to pt feeling poorly, weak, unsteady and found to have hyperglycemia. Pt reports only taking 5 units Insulin last night, pt reports adjusting based on a sliding scale. On HD, he feels a bit better. He is seen tolerating session. Allergies No Known Allergies Allergy (Verified 03/11/23 10:00) Home Medications: Aspirin [Aspirin EC 81 MG] 81 mg PO DAILY 12/18/21 Atorvastatin Calcium 1 tab PO BEDTIME 04/24/22 Dicyclomine [Bentyl*] 1 cap PO TID 04/24/22 Telmisartan 40 mg PO BEDTIME 04/24/22 Promethazine Tab [Phenergan*] 25 mg PO Q6HP PRN #30 tab 11/26/22 ALPRAZolam [Xanax*] 1 mg PO DAILY 03/07/23 Ezetimibe 10 mg PO DAILY 03/07/23 Hyoscyamine Sulfate [Levsin-Sl] 0.125 mg SL Q6H 03/07/23 Insulin Aspart [Novolog Flexpen] 20 unit SQ TID 03/07/23 Ropinirole HCl 4 mg PO BEDTIME 03/07/23 Sevelamer Carbonate [Renvela] 1 tab PO TID 03/07/23 Ticagrelor [Brilinta*] 90 mg PO BID 03/07/23 Tizanidine [Zanaflex*] 4 mg PO BEDTIME 03/07/23 atenoloL [Tenormin] 25 mg PO BEDTIME 03/07/23 - Past Medical/Surgical History Diabetic: Yes -: DM II with Polyneuropathy -: HTN -: GERD -: Diabetic gastroparesis/ IBS -: ESRD on HD (Dr. Mccoy/ Dr. Mayorga) -: Diastolic CHF. Mitral Stenosis. MR. -: CAD s/p CABG -: Cataract surgery -: Laser for Retinal Detachment -: HD fistula surgery -: CABG Psychosocial/ Personal History: Patient is . He has no children. - Family History Father Medical History: Diabetes, Kidney disease - Social History Smoking Status: Unknown if ever smoked Alcohol use: Yes CD- Drugs: No Caffeine use: Yes Review of Systems General: Weakness Eyes: Unremarkable ENT: Unremarkable Respiratory: Shortness of Breath Cardiovascular: As per HPI Gastrointestinal: As per HPI Genitourinary: Unremarkable Musculoskeletal: Other (Lt lower leg pain, claudication, PAD on recent duplex) Integumentary: Unremarkable Neurological: As per HPI Physical Examination General: In no apparent distress, Cooperative HEENT: Atraumatic, Normocephalic Respiratory: Normal air movement, Other (non tachypnec, not on O2, scattered rales) Cardiovascular: Regular rate/rhythm, Edema, Systolic murmur Gastrointestinal: No tenderness, No guarding, Distended Musculoskeletal: No tenderness, No warmth, Swelling, Other (Lt forearm AVF) Integumentary: No rashes, Other (Lt foot warm, no cyanosis) Neurological: Normal speech, Normal tone, Normal affect Laboratory Data (last 24 hrs) 07/23/24 07/23/24 07/23/24 10:51 10:51 10:51 WBC 8.40 Hgb 10.6 L Hct 31.1 L Plt Count 144 L PT 13.7 H INR 1.21 Sodium 132 L Potassium 5.2 H BUN 48 H Creatinine 6.52 H Glucose 393 H Conclusions/Impression: A/P) 1. ESRD 2nd to chronic conditions on iHD MWF, missed HD earlier today, performing HD this afternoon for clearance and UF, see orders for details 2. Hyperkalemia -will dialyze with low K bath 3. Type II DM with hyperglycemia -non compliant with diet, varying his insulin dosing, clarify insulin regimen, re-educate, will defer to IM 4, Chronic malignant HTN with CKD/ESRD and heart failure -need to clarify home BP regimen, sees Cardiology who also makes changes. F/u post HD BP 5. Chronic diastolic CHF, chronic pulm edema, chronic peripheral edema -often leaves above EDW, will schedule extra tx tmrw for fluid overload Seperate dialysis oversight note: Pt seen on HD, tolerating session, stable vitals, treatment orders & parameters reviewed with wire worker Colin Mayorga MD, FASN
[2024-07-23] MEDS ORDERED: HEPARIN 5000 UNIT/ML 1 ML VIAL ONE (18:40)
[2024-07-23] MEDS ORDERED: FUROSEMIDE 40 MG/4 ML VIAL ONE (18:40)
[2024-07-23] MEDS ORDERED: INSULIN REGULAR (HUMAN) 100 UNIT/ML ONE (18:40)
[2024-07-23] MEDS: ATORVASTATIN 40 MG TAB PO SCH (20:03)
[2024-07-23] MEDS: TICAGRELOR 90 MG TABLET PO SCH (20:04)
[2024-07-24] MEDS: ACETAMINOPHEN 500 MG TAB PO PRN (00:43)
[2024-07-24 06:32] LABS: Absolute Eosinophils 0.2 K/uL (0-0.5); Absolute Monocytes 0.5 K/uL (0.1-1.3); Absolute Neutrophil 3.7 K/uL (1.8-8.0); Basophils % 0.5 % (0-1.3); Eosinophils % 3.2 % (0-4.4); Hematocrit 31.2 % (39.6-49.0); Hemoglobin 10.6 g/dL (13.6-17.9); Lymphocytes % 18.7 % (15.3-44.8); MCH 30.5 pg (27.0-35.0); MCV 89.6 fL (80-100); MPV 8.4 fL (7.6-11.3); Monocytes % 9.1 % (3.3-12.3); Neutrophils % 68.5 % (41.7-73.7); Nucleated Red Blood Cells % 0.1 % (0-0); Platelets 132 thou/uL (152-406); RBC Red Blood Cell Count 3.48 M/uL (4.33-5.43); Red Cell Distribution Width 16.4 % (12.1-15.2)
[2024-07-24 11:36] VITALS: O2SAT 95
[2024-07-24 13:18] VITALS: BMI 38.2
--- NOTE | 2024-07-24 14:01 | P.PN ---
Date of Service: 07/24/24 Subjective Endorses pain over the left leg. States he wants to go home. Discussed with nursing. Denies fevers and chills Review of systems 10 point review of systems otherwise negative Physical examination: Vital signs: Reviewed, as per EMR. General appearance: Alert and comfortable HEENT: Extraocular movements intact, oral mucosa moist. 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, no obvious focal deficits, alert, oriented x 3/3 Musculoskeletal: No obvious joint swelling or tenderness Allergies No Known Allergies Allergy (Verified 03/11/23 10:00) Home Medications: Aspirin [Aspirin EC 81 MG] 81 mg PO DAILY 12/18/21 Atorvastatin Calcium 1 tab PO BEDTIME 04/24/22 Dicyclomine [Bentyl*] 1 cap PO TID 04/24/22 Telmisartan 40 mg PO BEDTIME 04/24/22 Promethazine Tab [Phenergan*] 25 mg PO Q6HP PRN #30 tab 11/26/22 ALPRAZolam [Xanax*] 1 mg PO DAILY 03/07/23 Ezetimibe 10 mg PO DAILY 03/07/23 Hyoscyamine Sulfate [Levsin-Sl] 0.125 mg SL Q6H 03/07/23 Insulin Aspart [Novolog Flexpen] 20 unit SQ TID 03/07/23 Ropinirole HCl 4 mg PO BEDTIME 03/07/23 Sevelamer Carbonate [Renvela] 1 tab PO TID 03/07/23 Ticagrelor [Brilinta*] 90 mg PO BID 03/07/23 Tizanidine [Zanaflex*] 4 mg PO BEDTIME 03/07/23 atenoloL [Tenormin] 25 mg PO BEDTIME 03/07/23 - Past Medical/Surgical History Diabetic: Yes -: DM II with Polyneuropathy -: HTN -: GERD -: Diabetic gastroparesis/ IBS -: ESRD on HD (Dr. Mccoy/ Dr. Mayorga) -: Diastolic CHF. Mitral Stenosis. MR. -: CAD s/p CABG -: Cataract surgery -: Laser for Retinal Detachment -: HD fistula surgery -: CABG Psychosocial/ Personal History: Patient is . He has no children. - Family History Father -: Diabetes, Kidney disease - Social History Alcohol use: Yes CD- Drugs: No Caffeine use: Yes Physical Examination - Studies Laboratory Data (last 24 hrs) 07/23/24 07/23/24 07/23/24 10:51 10:51 10:51 WBC 8.40 Hgb 10.6 L Hct 31.1 L Plt Count 144 L PT 13.7 H INR 1.21 Sodium 132 L Potassium 5.2 H BUN 48 H Creatinine 6.52 H Glucose 393 H Assessment and Plan - Plan Assessment and plan: 1. End-stage renal disease with volume overload: Nephrology was consulted, dialysis as per nephrology. Completed dialysis today. Another session tomorrow 2. Hyperkalemia: Mild, Dialysis as per nephrology, hold ARB for now. 3. Chronic anemia secondary to end-stage renal disease: Monitor closely 4. Chronic thrombocytopenia: Monitor closely 5. Chronic hyponatremia: Probably related to end-stage renal disease, monitor closely with dialysis 6. Diabetes mellitus type 2 with hyperglycemia: Start Lantus, continue sliding scale insulin, monitor sugars closely, check A1c, patient tells me that he takes only sliding scale insulin at home, this is probably the reason for hyperglycemia, he may need Lantus to go home depending on A1c. - Diabetic diet for now. 7. Hypertension: Resume atenolol, hold ARB for now due to hyperkalemia, start as needed hydralazine, monitor blood pressure closely with dialysis. 8. Gastroparesis: Supportive care for now. 9. Coronary artery disease status post CABG: Continue aspirin, beta-christian, statin and Brilinta, monitor for any cardiac symptoms. DVT prophylaxis: Heparin CODE STATUS: He would like to be full code. Discharge after dialysis tomorrow - Advance Directives Does patient have a Living Will: No Does patient have a Durable POA for Healthcare: Yes
--- NOTE | 2024-07-24 15:46 | P.DS ---
Admission Date: 07/23/24 Discharge Date: 07/24/24 Disposition: ROUTINE DISCHARGE Discharge Condition: GOOD Reason for Admission: Volume overload, hyperglycemia Hospital Course: 49-year-old male with a past medical history of ESRD, chronic anemia, malignant hypertension, type 2 diabetes, gastroparesis, CAD with Presented with weakness and hyperglycemia. Upon admission nephrology was consulted and he was taken for emergent dialysis. His clinical condition improved over the course of his stay. He is medically optimized for discharge Vital Signs/Physical Exam: Temp Pulse Resp BP Pulse Ox 97.9 F 74 18 139/63 95 07/24/24 08:00 07/24/24 08:00 07/24/24 08:00 07/24/24 08:00 07/24/24 08:00 General: In no apparent distress HEENT: Normocephalic Neck: Supple Respiratory: Clear to auscultation bilaterally, Normal air movement Cardiovascular: No edema Capillary refill: <2 Seconds Gastrointestinal: Normal bowel sounds, Soft and benign Musculoskeletal: No clubbing, No swelling Integumentary: No rashes Neurological: Normal speech, Normal strength at 5/5 x4 extr Lymphatics: No axilla or inguinal lymphadenopathy Laboratory Data at Discharge: WBC 5.40 thou/uL (4.3-10.9) 07/24/24 05:50 Hgb 10.6 g/dL (13.6-17.9) L 07/24/24 05:50 Hct 31.2 % (39.6-49.0) L 07/24/24 05:50 Plt Count 132 thou/uL (152-406) L 07/24/24 05:50 PT 13.7 SECONDS (10-13.0) H 07/23/24 10:51 INR 1.21 07/23/24 10:51 Sodium 134 mEq/L (136-145) L 07/24/24 05:50 Potassium 4.0 mEq/L (3.5-5.1) D 07/24/24 05:50 BUN 35 mg/dL (7-18) H 07/24/24 05:50 Creatinine 5.17 mg/dL (0.70-1.30) H 07/24/24 05:50 Glucose 144 mg/dL (74-106) H 07/24/24 05:50 Home Medications: Aspirin [Aspirin EC 81 MG] 81 mg PO DAILY 10/04/22 Atorvastatin Calcium 1 tab PO BEDTIME 04/24/22 Dicyclomine [Bentyl*] 1 cap PO TID 04/24/22 Telmisartan 40 mg PO BEDTIME 04/24/22 Promethazine Tab [Phenergan*] 25 mg PO Q6HP PRN #30 tab 11/26/22 ALPRAZolam [Xanax*] 1 mg PO DAILY 03/07/23 Ezetimibe 10 mg PO DAILY 03/07/23 Hyoscyamine Sulfate [Levsin-Sl] 0.125 mg SL Q6H 03/07/23 Insulin Aspart [Novolog Flexpen] 20 unit SQ TID 03/07/23 Ropinirole HCl 4 mg PO BEDTIME 03/07/23 Sevelamer Carbonate [Renvela] 1 tab PO TID 03/07/23 Ticagrelor [Brilinta*] 90 mg PO BID 03/07/23 Tizanidine [Zanaflex*] 4 mg PO BEDTIME 03/07/23 atenoloL [Tenormin] 25 mg PO BEDTIME 03/07/23 Followup: NONE,NONE [Primary Care Provider] -
[2024-07-24 16:24] VITALS: BP 126/68; TEMP 98.3
--- NOTE | 2024-07-26 12:07 | EKG ---
Test Date: 2024-07-23 Test Time: 10:45:28 Tumor Registrar: Alin CEVALLOS MEASUREMENT RESULTS: Intervals: Rate: 57 ID: [id number] QRSD: 94 QT: 518 QTc: 504 [place]: P: 3- ID: [id number] QRS: 196 T: 73 INTERPRETIVE STATEMENTS: Sinus bradycardia with premature atrial complexes Right superior axis deviation Pulmonary disease pattern Incomplete right bundle branch block Right ventricular hypertrophy Prolonged QT Abnormal ECG Compared to ECG 04/04/2024 17:08:41 Atrial premature complex(es) now present Right superior axis now present Incomplete right bundle-branch block now present Right ventricular hypertrophy now present Electronically Signed On 07-26-24 12:05:58 CDT by Robin Gomez
[2024-07-27] MEDS ORDERED: FENTANYL 25 MCG/PATCH TD SCH (09:00)
== END 2024-07-24 16:00 | disposition home or self-care (01) | DRG 640 ==
LOC: ER 10:38 → ERHOLD 12:19 → 2ND 19:36
PROVIDERS: ADMIT Hospitalist; ATTEND Family Medicine
PROC: 5A1D70Z Performance of Urinary Filtration, Intermittent, Less than 6 Hours Per Day (ICD-10-PCS; principal; 2024-07-23)
DX: E87.70 Fluid overload, unspecified (principal); N18.6 End stage renal disease; I13.2 Hypertensive heart and chronic kidney disease with heart failure and with stage 5 chronic kidney disease, or end stage renal disease; I50.32 Chronic diastolic (congestive) heart failure; E11.65 Type 2 diabetes mellitus with hyperglycemia; E87.1 Hypo-osmolality and hyponatremia; E11.22 Type 2 diabetes mellitus with diabetic chronic kidney disease; E11.42 Type 2 diabetes mellitus with diabetic polyneuropathy; E11.43 Type 2 diabetes mellitus with diabetic autonomic (poly)neuropathy; K31.84 Gastroparesis; D63.1 Anemia in chronic kidney disease; E87.5 Hyperkalemia; D69.6 Thrombocytopenia, unspecified; K21.9 Gastro-esophageal reflux disease without esophagitis; I25.10 Atherosclerotic heart disease of native coronary artery without angina pectoris; T38.3X6A Underdosing of insulin and oral hypoglycemic [antidiabetic] drugs, initial encounter; Z79.4 Long term (current) use of insulin; Z95.1 Presence of aortocoronary bypass graft; Z88.8 Allergy status to other drugs, medicaments and biological substances; Z79.82 Long term (current) use of aspirin; Z79.899 Other long term (current) drug therapy; Z91.158 Patient's noncompliance with renal dialysis for other reason; Z91.148 Patient's other noncompliance with medication regimen for other reason
CPT/HCPCS: 36415; 71045; 80048; 82947; 83036; 83880; 84484; 85025; 85610; 90935; 93005; 99285; J1644; J1815; J1938

== ENCOUNTER 2024-08-10 11:18 | Emergency (ER) | payer OTHER ==
[2024-08-10] MEDS ORDERED: HYDROCODONE/APAP 5/325 MG TAB ONE (11:35)
--- NOTE | 2024-08-10 12:41 | RAD REPORT ---
EXAM:Extremity Venous Uni Ltd HISTORY: Left leg pain TECHNIQUE: Sonographic evaluation left lower extremity performed.Grayscale, color and spectral analys is performed on all vessels COMPARISON: March 2024. FINDINGS: Portions of the examination is limited due to the patient's pain. Left common femoral, superficial femoral, greater saphenous, popliteal and posterior tibial veins are compressible and demonstrate augmentation. Doppler demonstrates good flow. 9 mm hypoechoic structure posterior distal left thigh IMPRESSION: No sonographic evidence of deep venous thrombosis involving the left lower extremity. 9 mm hypoechoic structure posterior distal left thigh does not appear to be vascular. It may represen t a small fluid collection and is of doubtful clinical significance. Follow-up ultrasound could be obtained in a few weeks for reevaluation.
--- NOTE | 2024-08-10 12:42 | RAD REPORT ---
EXAM:Lower Extremity Artery Uni Ltd HISTORY: Left leg pain TECHNIQUE: Sonographic evaluation left lower extremity arteries performed.Grayscale, color and spectr al analysis performed on all vessels COMPARISON: None. FINDINGS: Left common femoral and proximal left superficial femoral arterial waveforms are biphasic. Remainder of the left superficial femoral, popliteal, posterior tibial and dorsalis pedis arterial wa veforms are monophasic. Prominent calcifications are present within the vessels. No occlusion noted. IMPRESSION: Moderate left lower extremity arterial disease
--- NOTE | 2024-08-10 13:13 | ER ---
Nurse's Notes [facility] Name: Chase Chacon Jr Age: 49 yrs Sex: Male : 1975 Arrival Date: 08/10/2024 Time: 11:18 Bed 15 Private MD: Diagnosis: Pain in left leg Presentation: 08/10 11:35 Method Of Arrival: Wheelchair ph 11:36 Chief complaint: Patient states: L calf pain that has been ongoing x months. Pt reports ss he had an US at [facility] 2-3 months ago which did not show anything wrong at this time. Coronavirus screen: Client denies travel out of the [place] in the last 14 days. Ebola Screen: Patient denies exposure to infectious person. Patient denies travel to an Ebola-affected area in the 21 days before illness onset. Initial Sepsis Screen: Does the patient meet any 2 criteria? No. Patient's initial sepsis screen is negative. Does the patient have a suspected source of infection? No. Patient's initial sepsis screen is negative. Risk Assessment: Do you want to hurt yourself or someone else? Patient reports no desire to harm self or others. Onset of symptoms is unknown. 11:36 Method Of Arrival: Wheelchair ss 11:36 Acuity: LEON 3 ss Historical: - Allergies: 11:38 Phenergan; ss - PMHx: 11:38 Cataract; diabetes mellitus; Gastroparesis; hemodialysis; Hypertensive disorder; kidney ss failure; - PSHx: 11:38 heart bypass; Left arm dialysis fistula; ss - Immunization history:: Adult Immunizations unknown. - Infectious Disease History:: Denies. - Social history:: Smoking status: unknown. Screenin:34 [facility] ED Fall Risk Assessment (Adult) History of falling in the last 3 months, ph including since admission No falls in past 3 months (0 pts) Confusion or Disorientation No (0 pts) Intoxicated or Sedated No (0 pts) Impaired Gait Yes (1 pt) Mobility Assist Device Used No (0 pt) Altered Elimination No (0 pt) Score/Fall Risk Level 0 - 2 = Low Risk Oriented to surroundings, Maintained a safe environment, Hourly rounding (assess needs \T\ fall precautionary measures) done. Abuse screen: Denies threats or abuse. Denies injuries from another. Nutritional screening: No deficits noted. Tuberculosis screening: No symptoms or risk factors identified. Assessment: 11:45 General: Appears in no apparent distress. Behavior is calm, cooperative. Pain: ph Complains of pain in left leg. Neuro: Level of Consciousness is awake, alert, obeys commands, Oriented to person, place, time, situation. Cardiovascular: Capillary refill < 3 seconds. Respiratory: Airway is patent Respiratory effort is even, unlabored. Derm: Skin is pink, warm \T\ dry. Musculoskeletal: Swelling present in left leg. 11:46 Cardiovascular: Dialysis shunt: in the left arm, with palpable thrill, with auscultated ph bruit, with no erythema, with no edema, no bleeding noted. 12:07 Reassessment: US at bedside. ph 13:34 Reassessment: Patient appears in no apparent distress at this time. Patient and/or ph family updated on plan of care and expected duration. Pain level reassessed. Patient is alert, oriented x 3, equal unlabored respirations, skin warm/dry/pink. Vital Signs: 11:36 BP 139 / 63; Pulse 80; Resp 17; Temp 97.5(TE); Pulse Ox 95% on R/A; Weight 87.5 kg; ss Height 5 ft. 6 in. ; Pain 10/10; 13:34 BP 132 / 64; Pulse 78; Resp 18; Temp 97.8; Pulse Ox 96% on R/A; ph 11:36 Body Mass Index 31.14 (87.50 kg, 167.64 cm) ss 11:36 Pain Scale: Adult ss ED Course: 11:22 Patient arrived in ED. gl 11:23 Jermaine Grimes DO is Attending Physician. ms3 11:29 Essie Canales, RN is Primary Nurse. ph 11:33 Arm band placed on Patient placed in an exam room, on a stretcher. ph 11:35 Patient has correct armband on for positive identification. Bed in low position. Call ph light in reach. Side rails up X 1. Pulse ox on. NIBP on. Door closed. Noise minimized. 11:38 Triage completed. ss 12:20 Extremity Venous Uni Ltd US In Process Unspecified. EDMS 12:20 Lower Extremity Artery Uni Ltd US In Process Unspecified. EDMS 13:12 David Lo MD is Referral Physician. ms3 13:35 No provider procedures requiring assistance completed. Patient did not have IV access ph during this emergency room visit. Administered Medications: 11:45 Drug: HYDROcodone-acetaminophen PO 5 mg-325 mg 1 tabs PO once Route: PO; ph 13:36 Follow up: Response: No adverse reaction ph Medication: 11:45 VIS not applicable for this client. ph Outcome: 13:12 Discharge ordered by . ms3 13:35 Discharged to home via wheelchair, with family, ph 13:35 Condition: good 13:35 Discharge instructions given to patient, Instructed on discharge instructions, follow up and referral plans. medication usage, Demonstrated understanding of instructions, follow-up care, medications, Prescriptions given X 1, 13:36 Patient left the ED. ph Signatures: Dispatcher [employer] EDMS Leanne Hough RN RN Essie Canales RN RN Jermaine Grimes, DO DO ms3 Bozena Ramos, Reg Reg gl
--- NOTE | 2024-08-10 13:13 | EDPHYS ---
Physician Documentation [facility] Name: Chaes Chacon Jr Age: 49 yrs Sex: Male : 1975 Arrival Date: 08/10/2024 Time: 11:18 Bed 15 Private MD: ED Physician Jermaine Grimes HPI: 08/10 11:41 This 49 yrs old Male presents to ER via Wheelchair with complaints of Leg Pain.ms3 11:41 49-year-old male with past medical history of cataracts, diabetes, gastroparesis, ms3 hemodialysis, hypertension, end-stage renal disease with dialysis on Friday presents to the emergency department for left leg pain that has been ongoing for months. Patient denies fevers, chills, nausea, vomiting.. Historical: - Allergies: 11:38 Phenergan; ss - PMHx: 11:38 Cataract; diabetes mellitus; Gastroparesis; hemodialysis; Hypertensive disorder; kidney ss failure; - PSHx: 11:38 heart bypass; Left arm dialysis fistula; ss - Immunization history:: Adult Immunizations unknown. - Infectious Disease History:: Denies. - Social history:: Smoking status: unknown. ROS: 11:41 Constitutional: Negative for fever, and chills. Cardiovascular: Negative for chest ms3 pain, and palpitations. Respiratory: Negative for shortness of breath, cough, wheezing, and pleuritic chest pain, Abdomen/GI: Negative for abdominal pain, nausea, vomiting, diarrhea, and constipation, 11:41 MS/extremity: Positive for Left leg pain, Exam: 11:41 Constitutional: This is a well developed, well nourished patient who is awake, alert, ms3 and in no acute distress. Cardiovascular: Regular rate and rhythm with a normal S1 and S2. No gallops, murmurs, or rubs. Normal PMI, no JVD. No pulse deficits. Respiratory: Lungs have equal breath sounds bilaterally, clear to auscultation and percussion. No rales, rhonchi or wheezes noted. No increased work of breathing, no retractions or nasal flaring. Abdomen/GI: Soft, non-tender, with normal bowel sounds. No distension or tympany. No guarding or rebound. No evidence of tenderness throughout. 11:41 Musculoskeletal/extremity: Extremities: noted in the Left leg: pain, swelling, Vital Signs: 11:36 BP 139 / 63; Pulse 80; Resp 17; Temp 97.5(TE); Pulse Ox 95% on R/A; Weight 87.5 kg; ss Height 5 ft. 6 in. ; Pain 10/10; 13:34 BP 132 / 64; Pulse 78; Resp 18; Temp 97.8; Pulse Ox 96% on R/A; ph 11:36 Body Mass Index 31.14 (87.50 kg, 167.64 cm) ss 11:36 Pain Scale: Adult ss MDM: 11:40 Medical Screening Exam initiated ms3 11:41 Differential diagnosis: Peripheral vascular disease versus DVT. ms3 13:12 Data reviewed: vital signs, nurses notes, radiologic studies, and as a result, I will ms3 discharge patient. I considered the following discharge prescriptions or medication management in the emergency department Medications were administered in the Emergency Department. See MAR. Care significantly affected by the following chronic conditions: Diabetes, Hypertension, Chronic Kidney Disease. Counseling: I had a detailed discussion with the patient and/or guardian regarding the historical points, exam findings, and any diagnostic results supporting the discharge/admit diagnosis, radiology results, the need for outpatient follow up, to return to the emergency department if symptoms worsen or persist or if there are any questions or concerns that arise at home. Special discussion: I discussed with the patient/guardian in detail that at this point there is no indication for admission to the hospital. It is understood, however, that if the symptoms persist or worsen the patient needs to return immediately for re-evaluation. ED course: Discussed moderate peripheral arterial disease in the left lower leg and no DVT in left leg. Patient to follow-up with pain management 2 to 3 days. Patient understands and agrees with plan. All questions were answered. Return precautions discussed include worsening symptoms, or any other concerns. 08/10 11:41 Order name: Extremity Venous abeo US; Complete Time: 13:02 ms3 08/10 11:41 Order name: Lower Extremity Artery abeo US; Complete Time: 13: ms3 Administered Medications: 11:45 Drug: HYDROcodone-acetaminophen PO 5 mg-325 mg 1 tabs PO once Route: PO; ph 13:36 Follow up: Response: No adverse reaction ph Disposition Summary: 08/10/24 13:12 Discharge Ordered Notes: Location: Home ms3 Condition: Stable ms3 Diagnosis - Pain in left leg ms3 Followup: ms3 - With: David Lo MD - When: 2 - 3 days - Reason: Recheck today's complaints Discharge Instructions: - Discharge Summary Sheet ms3 - Musculoskeletal Pain ms3 Forms: - Medication Reconciliation Form ms3 - Antibiotic Education ms3 - Prescription Opioid Use ms3 - Patient Portal Instructions ms3 - Leadership Thank You Letter ms3 Prescriptions: - Tylenol-Codeine #3 300mg-30mg Oral tablet - take 1 tablet ORAL route every 4 hours As needed; 16 tablet; Refills: 0, ms3 Product Selection Permitted Signatures: Dispatcher [employer] Leanne Stafford RN RN Essie Chacon RN RN Jermaine Grimes, DO ms3
[2024-08-10 13:42] VITALS: BP 132/64; TEMP 97.8; O2SAT 96
== END 2024-08-10 13:36 | disposition home or self-care (01) ==
LOC: ER 11:18
DX: M79.605 Pain in left leg (principal); E11.22 Type 2 diabetes mellitus with diabetic chronic kidney disease; I12.0 Hypertensive chronic kidney disease with stage 5 chronic kidney disease or end stage renal disease; N18.6 End stage renal disease; Z99.2 Dependence on renal dialysis; Z95.1 Presence of aortocoronary bypass graft
CPT/HCPCS: 93926; 93971; 99284

== ENCOUNTER 2024-10-31 15:00 | Emergency (ER) | payer OTHER ==
[2024-10-31] MEDS ORDERED: PROMETHAZINE INJ 25 MG/ML AMP ONE (15:33)
--- NOTE | 2024-10-31 16:20 | ER ---
Nurse's Notes [facility] Name: Chase Chacon Jr Age: 49 yrs Sex: Male : 1975 Arrival Date: 10/31/2024 Time: 15:00 Bed 19 Private MD: Diagnosis: Gastroparesis;Nausea Presentation: 10/31 15:13 Chief complaint: Patient states: N/V that began Friday. Pt states, "my gastroparesis is ss acting up.". Coronavirus screen: Client denies travel out of the [place] in the last 14 days. Ebola Screen: Patient denies exposure to infectious person. Patient denies travel to an Ebola-affected area in the 21 days before illness onset. Initial Sepsis Screen: Does the patient meet any 2 criteria? No. Patient's initial sepsis screen is negative. Does the patient have a suspected source of infection? No. Patient's initial sepsis screen is negative. Risk Assessment: Do you want to hurt yourself or someone else? Patient reports no desire to harm self or others. Onset of symptoms was October 29, 2024. 15:13 Method Of Arrival: Wheelchair ss 15:13 Acuity: LEON 3 ss Historical: - Allergies: 15:15 Phenergan; worsens RLS; ss - PMHx: 15:15 Cataract; diabetes mellitus; Gastroparesis; hemodialysis; Hypertensive disorder; kidney ss failure; - PSHx: 15:15 heart bypass; Left arm dialysis fistula; ss - Immunization history:: Adult Immunizations up to date. - Infectious Disease History:: Denies. - Social history:: Smoking status: Patient denies any tobacco usage or history of. Screenin:27 [facility] ED Fall Risk Assessment (Adult) History of falling in the last 3 months, cf3 including since admission No falls in past 3 months (0 pts) Confusion or Disorientation No (0 pts) Intoxicated or Sedated No (0 pts) Impaired Gait No (0 pts) Mobility Assist Device Used No (0 pt) Altered Elimination No (0 pt) Score/Fall Risk Level 0 - 2 = Low Risk Oriented to surroundings, Maintained a safe environment, Assessed \\T\\ reinforced patient's understanding of fall precautions. Abuse screen: Denies threats or abuse. Denies injuries from another. Nutritional screening: No deficits noted. Tuberculosis screening: No symptoms or risk factors identified. Assessment: 15:25 General: Appears ill, Behavior is calm, cooperative. General: Behavior is. Pain: Denies cf3 pain. Pain:. Pain: Denies pain. GI: Pt is actively vomiting clear fluid, Bowel sounds present X 4 quads. Vital Signs: 15:13 BP 148 / 81; Pulse 80; Resp 16; Temp 98.5(O); Pulse Ox 97% on R/A; Weight 88 kg; Height ss 5 ft. 6 in. ; Pain 0/10; 15:27 BP 157 / 53; Pulse 79; Resp 16; Temp 98.1(O); Pulse Ox 98% ; cf3 16:30 BP 155 / 42; Pulse 74; Resp 16; Pulse Ox 100% on 2 lpm NC; cf3 15:13 Body Mass Index 31.31 (88.00 kg, 167.64 cm) ss 15:13 Pain Scale: Adult ss ED Course: 15:04 Patient arrived in ED. al6 15:04 Aless[facility] Mosley [facility]. sb4 15:04 Michael Mackey MD is Attending Physician. sb4 15:15 Triage completed. ss 15:15 Arm band placed on right wrist. ss 15:24 Checo Amaya, JENNIE is Primary Nurse. cf3 15:27 Patient has correct armband on for positive identification. Bed in low position. Call cf3 light in reach. Side rails up X 1. Client placed on continuous cardiac and pulse oximetry monitoring. NIBP monitoring applied. Notified Nurse Practitioner and/or Physician Leak Detector of. Door closed. Noise minimized. Visitors limited. 15:27 No provider procedures requiring assistance completed. cf3 16:19 Adal Braun MD is Referral Physician. sb4 17:01 Patient did not have IV access during this emergency room visit. cf3 Administered Medications: 15:46 Drug: Promethazine IM 25 mg IM once Route: IM; Site: right deltoid; cf3 17:02 Follow up: Response: Marked relief of symptoms cf3 Medication: 15:27 VIS not applicable for this client. cf3 Outcome: 16:19 Discharge ordered by . sb4 17:01 Discharged to home via wheelchair, cf3 17:01 Condition: good 17:01 Condition: improved 17:01 Discharge instructions given to patient, Instructed on discharge instructions, follow up and referral plans. Demonstrated understanding of instructions, follow-up care, 17:03 Patient left the ED. cf3 Signatures: Leanne Hough, RN RN Alessandra Schneider PA-C PAYuliana sb4 Lisa Nguyen Cameron, RN RN cf3
--- NOTE | 2024-10-31 16:20 | EDPHYS ---
Physician Documentation [facility] Name: Chase Chacon Jr Age: 49 yrs Sex: Male : 1975 Arrival Date: 10/31/2024 Time: 15:00 Bed 19 Private MD: ED Physician Michael Mackey HPI: 10/31 16:36 This 49 yrs old Male presents to ER via Wheelchair with complaints of Nausea. sb4 16:36 Patient states that he has been experiencing nausea and vomiting over the past few sb4 days. States that his gastroparesis has flared up. He states that his symptoms are improving, he is able to hold down food and water but is still feeling very nauseated and dry heaving. He states the only thing that helps him is Phenergan but it does make his restless leg syndrome worse. He denies any abdominal pain, constipation, or diarrhea. Historical: - Allergies: 15:15 Phenergan; worsens RLS; ss - PMHx: 15:15 Cataract; diabetes mellitus; Gastroparesis; hemodialysis; Hypertensive disorder; kidney ss failure; - PSHx: 15:15 heart bypass; Left arm dialysis fistula; ss - Immunization history:: Adult Immunizations up to date. - Infectious Disease History:: Denies. - Social history:: Smoking status: Patient denies any tobacco usage or history of. ROS: 16:36 Constitutional: Negative for fever, chills, and weight loss, sb4 16:36 Abdomen/GI: Positive for nausea and vomiting, 16:36 All other systems are negative, Exam: 16:36 Head/Face: Normocephalic, atraumatic. Eyes: Extra-ocular motions intact. Periorbital sb4 areas with no swelling, redness, or edema. ENT: Mucous membranes moist. Respiratory: No increased work of breathing, no retractions or nasal flaring. Abdomen/GI: Soft, non-tender, no distension. Skin: Warm, dry with normal turgor. Normal color with no rashes, no lesions, and no evidence of cellulitis. 16:36 Constitutional: The patient appears alert, awake, unkempt, Vital Signs: 15:13 BP 148 / 81; Pulse 80; Resp 16; Temp 98.5(O); Pulse Ox 97% on R/A; Weight 88 kg; Height ss 5 ft. 6 in. ; Pain 0/10; 15:27 BP 157 / 53; Pulse 79; Resp 16; Temp 98.1(O); Pulse Ox 98% ; cf3 16:30 BP 155 / 42; Pulse 74; Resp 16; Pulse Ox 100% on 2 lpm NC; cf3 15:13 Body Mass Index 31.31 (88.00 kg, 167.64 cm) ss 15:13 Pain Scale: Adult ss MDM: 15:05 Medical Screening Exam initiated sb4 16:36 Data reviewed: vital signs, nurses notes, and as a result, I will discharge patient. sb4 Test considered but Not performed: Labs: Patient is just requesting nausea medication. 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 10/31 15:25 Order name: PO challenge; Complete Time: 16:37 sb4 Administered Medications: 15:46 Drug: Promethazine IM 25 mg IM once Route: IM; Site: right deltoid; cf3 17:02 Follow up: Response: Marked relief of symptoms cf3 Disposition: 17:06 Co-signature as Attending Physician, Michael Mackey MD I reviewed the patient's care rn provided by the Advanced Practice Provider and agree with the diagnosis and treatment plan. Disposition Summary: 10/31/24 16:19 Discharge Ordered Notes: Location: Home sb4 Problem: an acute exacerbation sb4 Symptoms: have improved sb4 Condition: Stable sb4 Diagnosis - Gastroparesis sb4 - Nausea sb4 Followup: sb4 - With: Adal Braun MD - When: As needed - Reason: Recheck today's complaints, Re-evaluation by your physician Discharge Instructions: - Discharge Summary Sheet sb4 - Nausea, Adult sb4 - Gastroparesis sb4 Forms: - Patient Portal Instructions sb4 - Leadership Thank You Letter sb4 Signatures: Michael Mackey MD MD rn Blanchard, Shelby, RN RN ss Brown, Sophia, PA-C PA-C sb4 Checo Amaya RN RN cf3
[2024-10-31 22:05] VITALS: TEMP 98.1
[2024-10-31 22:06] VITALS: BP 155/42; O2SAT 100
== END 2024-10-31 17:03 | disposition home or self-care (01) ==
LOC: ER 15:00
DX: K31.84 Gastroparesis (principal); E11.22 Type 2 diabetes mellitus with diabetic chronic kidney disease; N18.6 End stage renal disease; Z99.2 Dependence on renal dialysis
CPT/HCPCS: 96372; 99284; J2550

== ENCOUNTER 2024-12-04 20:39 | Inpatient (IN) | payer OTHER ==
[2024-12-04] MEDS ORDERED: KETOROLAC 30 MG/ML INJ ONE (21:31)
[2024-12-04] MEDS ORDERED: ACETAMINOPHEN 500 MG TAB ONE (21:31)
[2024-12-04 21:45] LABS: Absolute Lymphocytes (CBC) 0.8 K/uL (0.7-4.9); Hematocrit 27.9 % (39.6-49.0); Hemoglobin 9.0 g/dL (13.6-17.9); MCH 30.0 pg (27.0-35.0); MCHC 32.1 g/dL (32.0-36.0); MCV 93.5 fL (80-100); MPV 8.1 fL (7.6-11.3); Nucleated RBC Absolute Count 0.0 (0-0); Nucleated Red Blood Cells % 0.0 % (0-0); RBC Red Blood Cell Count 2.99 M/uL (4.33-5.43); White Blood Count 5.00 thou/uL (4.3-10.9)
--- NOTE | 2024-12-04 22:13 | RAD REPORT ---
EXAMINATION: ONE VIEW CHEST XR CLINICAL INDICATION: SOB TECHNIQUE: Frontal chest projection is submitted. Examination is limited by patient positioning and t echnique. COMPARISON: 11/10/2024 FINDINGS: Mild/moderate bilateral pulmonary opacities likely pulmonary edema. The heart is moderately enlarged in size. Sternotomy wires. Changes of prior CABG. IMPRESSION: Moderate CHF versus volume overload.
[2024-12-04 22:19] LABS: ALT/SGPT < 14 U/L (16-61); AST/SGOT 15 U/L (15-37); Albumin 2.5 g/dL (3.4-5.0); Albumin/Globulin Ratio 0.5 (1.1-1.8); Alkaline Phosphatase 153 U/L (45-117); Anion Gap 12.8 mEq/L (5.0-15.0); BUN Blood Urea Nitrogen 40 mg/dL (7-18); Bilirubin Indirect, Calculated 0.3 mg/dL (0.2-0.8); Globulin 5.2 g/dL (2.3-3.5); Glucose Level 298 mg/dL (74-106); Potassium 4.8 mEq/L (3.5-5.1); Troponin High Sensitivity 91.0 pg/mL (<58.9)
--- NOTE | 2024-12-04 22:29 | RAD REPORT ---
EXAMINATION: US LEFT LOWER EXTREMITY VENOUS DOPPLER CLINICAL INDICATION: PAIN TECHNIQUE: Complete bilateral duplex sonography of the LEFT lower extremity veins was performed. The examination included compression for vein patency, color Doppler imaging and flow augmentation in response to distal compression of the distal external iliac, common femoral, femoral, popliteal, tibi al, and great and small saphenous veins. COMPARISON: No prior exam. FINDINGS: Duplex sonography testing of the veins of the LEFT lower extremity was performed. Color flow imaging shows all veins to be compressible with [id number] color filling. Pulsatile and phasic flow is present within all lower extremity deep and superficial veins examined. IMPRESSION: There is no deep vein or superficial vein thrombosis.
[2024-12-04 22:30] LABS: NT PRO-BNP > 35000 pg/mL (<125)
--- NOTE | 2024-12-05 00:08 | RAD REPORT ---
EXAM: CT Pelvis With Intravenous Contrast CLINICAL HISTORY: The patient is 49 years old and is Male; JS-RECTAL ABSCESS TECHNIQUE: Axial computed tomography images of the pelvis with intravenous contrast. Sagittal and coronal re formatted images were created and reviewed. This CT exam was performed using one or more of the following dose reduction techniques: automated exposure control, adjustment of the mA and/or kV acc ording to patient size, and/or use of iterative reconstruction technique. COMPARISON: October 04, 2023 FINDINGS: BOWEL: Stool is noted throughout the visualized colon with scattered colonic diverticula. The sma ll bowel is decompressed. No obstruction. No mucosal thickening. APPENDIX: No findings to suggest acute appendicitis. INTRAPERITONEAL SPACE: Large volume ascites is present within the pelvis. No free air. RETROPERITONEAL SPACE: Partially visualized loculated peripherally enhancing fluid collection bryanna ng the right paracolic gutter measuring approximately 4.7 x 2.3 cm on axial image 1 is present. When compared to prior CT, this may represent residual resolving retroperitoneal hematoma. BLADDER: The bladder is decompressed. REPRODUCTIVE: Unremarkable as visualized. BONES/JOINTS: Sclerotic suggesting renal osteodystrophy. SOFT TISSUES: Diffuse body wall edema is present. A fat and fluid containing umbilical hernia i s present. Focal area of air which is outside of the body and confined by a skinfold of the scrotum appreciated on axial images 98 - 100. VASCULATURE: Extensive atherosclerotic plaque throughout the vasculature is present. LYMPH NODES: Unremarkable. No enlarged lymph nodes. IMPRESSION: 1. No evidence to suggest perirectal abscess. 2. Diffuse body wall edema with large volume ascites visualized in the lower pelvis. Electronically signed by: Suzi Monge MD 12/05/2024 12:05 AM [facility] Due to temporary technical issues with the PACS/Alicanto reporting system, reports are being linda d by the in-house radiologist without review as a courtesy to ensure prompt reporting the interpreting radiologist is fully responsible for the content of the report. Transcribed Date/Time: 12/05/2024 12:07 AM
--- NOTE | 2024-12-05 00:50 | EDPHYS ---
Physician Documentation [facility] Name: Chase Chacon Jr Age: 49 yrs Sex: Male : 1975 Arrival Date: 12/04/2024 Time: 20:39 Bed 18 Private MD: ED Physician Juan David Historical: - Allergies: 12/04 21:04 Phenergan; worsens RLS; kb4 - PMHx: 21:04 Cataract; diabetes mellitus; Gastroparesis; hemodialysis; Hypertensive disorder; kidney kb4 failure; - PSHx: 21:04 heart bypass; Left arm dialysis fistula; kb4 - Immunization history:: Adult Immunizations up to date. - Infectious Disease History:: Denies. - Social history:: Smoking status: unknown. Vital Signs: 20:49 BP 140 / 51; Pulse 86; Resp 22; Temp 98.6; Pulse Ox 86% on R/A; Height 5 ft. 6 in. ; kb4 Pain 0/10; 21:04 Weight 100.7 kg; kb4 22:00 BP 144 / 96; Pulse 67; Resp 17; Pulse Ox 95% on R/A; rg5 23:07 BP 140 / 76; Pulse 67; Resp 17; Pulse Ox 96% on R/A; rg5 12/05 01:25 BP 147 / 82; Pulse 61; Resp 18; Pulse Ox 97% on 1 lpm NC; kb4 02:33 BP 147 / 82; Pulse 64; Resp 18; Pulse Ox 95% on 1 lpm NC; kb4 12/04 20:49 Pain Scale: Adult kb4 MDM: 12/04 21:10 Medical Screening Exam initiated tt7 12/05 00:55 ED course: I discussed the case with hospitalist Dr. Haywood who accepts for admission. tt7 12/04 21:23 Order name: Basic Metabolic Panel; Complete Time: 22:31 tt7 12/04 21:23 Order name: CBC with Diff; Complete Time: 22:23 tt7 12/04 21:23 Order name: D-Dimer; Complete Time: 22:23 tt7 12/04 21:23 Order name: LFT's; Complete Time: 22:31 tt7 12/04 21:23 Order name: Troponin HS; Complete Time: 22:31 tt7 12/04 21:23 Order name: BNP; Complete Time: 22:31 tt7 12/05 01:22 Order name: CBC with Automated Diff EDMS 12/05 01:22 Order name: CBC with Automated Diff EDMS 12/05 01:22 Order name: Comprehensive Metabolic Panel EDMS 12/05 01:22 Order name: Comprehensive Metabolic Panel EDMS 12/04 21:23 Order name: XRAY Chest (1 view); Complete Time: 22:23 tt7 12/04 21:23 Order name: US Extremity Venous Unilateral Ltd; Complete Time: 22:31 tt7 12/04 22:23 Order name: CT Pelvis w cont tt7 12/05 01:22 Order name: CONS Physician Consult EDMS 12/04 21:23 Order name: Cardiac monitoring; Complete Time: 21:37 tt7 12/04 21:23 Order name: EKG - Nurse/Tech; Complete Time: 21:37 tt7 12/04 21:23 Order name: IV Saline Lock; Complete Time: 21:37 tt7 12/04 21:23 Order name: Labs collected and sent; Complete Time: 21:37 tt7 12/04 21:23 Order name: O2 Per Protocol; Complete Time: 21:37 tt7 12/04 21:23 Order name: O2 Sat Monitoring; Complete Time: 21:37 tt7 Administered Medications: 12/04 21:36 Drug: Acetaminophen PO 1000 mg PO once Route: PO; rg5 22:48 Follow up: Response: No adverse reaction; Pain is decreased rg5 21:36 Drug: Ketorolac IVP 15 mg IVP once Route: IVP; Site: right forearm; rg5 22:48 Follow up: Response: No adverse reaction; Pain is decreased rg5 12/05 01:05 Drug: hydrOXYzine PO 25 mg PO once Route: PO; kb4 01:26 Follow up: Response: No adverse reaction kb4 Disposition Summary: 12/05/24 00:50 Hospitalization Ordered Notes: Hospitalization Status: Observation tt7 Provider: Devang Haywood tt7 Location: Telemetry/MedSurg (observation) tt7 Condition: Fair tt7 Problem: an acute exacerbation tt7 Symptoms: have improved tt7 Bed/Room Type: Standard tt7 Room Assignment: 221(12/05/24 01:24) kl Diagnosis - Fluid overload tt7 - ANASARCA tt7 - Acute respiratory failure with hypoxia tt7 Forms: - Medication Reconciliation Form tt7 - SBAR form tt7 - Leadership Thank You Letter tt7 Addendum: 12/06/2024 18:46 Addendum: 49-year-old male presents to the emergency department for evaluation of t t7 bilateral leg swelling and discomfort, worse on the left than the right, he has also been complaining of frequent loose stools with burning pain in his rectum with defecation, he has history of end-stage renal disease on hemodialysis and did not attend his dialysis session today due to the diarrhea and pain with defecating. Since this afternoon he has started to get gradually more short of breath and dyspneic on exertion. Addendum: Review of systems Constitutional: denies fever Respiratory: Reports shortness of breath, denies cough Cardiovascular: denies chest pain, palpitations GI: denies abdominal pain, nausea, vomiting Neuro: denies focal weakness Skin: denies rash Constitutional: vital signs reviewed, chronically ill appearing Head: normocephalic, atraumatic Eyes: no conjunctival injection, anicteric sclerae ENMT: mucus membranes moist Neck: trachea midline, no meningismus Respiratory: Slightly increased respiratory effort, no accessory muscle use, mild crackles in bilateral bases, no wheezing or rales Cardiovascular: Regular rate and rhythm, systolic murmur, no rubs, 3+ lower extremity edema, left upper extremity AV fistula with palpable thrill, anasarca present Abdomen: Slightly tense, moderately distended, nontender, no guarding or rebound, negative Nation's sign, no McBurney point tenderness MSK: normal ROM of extremities, no gross deformities Skin: warm, dry, intact, no rash Neuro: alert and oriented with appropriate mental status, normal speech, follows commands, no focal neurologic deficits Psych: appropriate mood and affect Patient with multiple complaints including leg swelling/pain, shortness of breath, and diarrhea with rectal pain, broad workup initiated to assess the patient for lower extremity DVT, pneumonia, pulmonary edema, and perianal/perirectal abscess, patient is quite edematous and has anasarca, he has some crackles in the bases of his lungs, he is intermittently requiring supplemental oxygen to maintain adequate saturations at rest, I believe the patient will require inpatient admission for inpatient hemodialysis, workup results show no evidence of deep vein thrombosis on lower extremity ultrasound, CT abdomen/pelvis does not show any evidence of rectal abscess, patient does have findings of pulmonary edema on chest x-ray, he was admitted to the hospital for hemodialysis to improve his pulmonary edema and fluid overload. 19:00 Co-signature as Attending Physician, Juan David DO. t t7 Signatures: Dispatcher [employer] EDME Krystal Milton RN Ildefonso Lr RN RN rg5 Tiffany Swanson RN RN kb4 Juan David DO DO tt7 Corrections: (The following items were deleted from the chart) 12/04 21:24 21:24 Extremity Venous Uni Ltd+[email or web address] ordered. [facility] 12/05 01:24 00:50 tt7 sophia
--- NOTE | 2024-12-05 00:50 | ER ---
Nurse's Notes [facility] Name: Chase Chacon Jr Age: 49 yrs Sex: Male : 1975 Arrival Date: 12/04/2024 Time: 20:39 Bed 18 Private MD: Diagnosis: Fluid overload;ANASARCA;Acute respiratory failure with hypoxia Presentation: 12/04 20:47 Chief complaint: Patient states: pt states chronic left leg pain, and burning with kb4 defecation. 20:49 Chief complaint: Patient states: dialysis patient, missed today, normally T,TH,S... o2 kb4 86% RA in triage, placed on 4L/NC. Coronavirus screen: At this time, unable to obtain information related to travel outside the [place] Ebola Screen: No symptoms or risks identified at this time. Initial Sepsis Screen: Does the patient meet any 2 criteria? No. Patient's initial sepsis screen is negative. Does the patient have a suspected source of infection? No. Patient's initial sepsis screen is negative. Risk Assessment: Do you want to hurt yourself or someone else? Patient reports no desire to harm self or others. Onset of symptoms was December 04, 2024. 20:49 Method Of Arrival: Ambulatory kb4 20:49 Acuity: LEON 2 kb4 Triage Assessment: 21:04 General: Appears distressed, uncomfortable, Behavior is cooperative, anxious. Pain: kb4 Denies pain. Historical: - Allergies: 21:04 Phenergan; worsens RLS; kb4 - PMHx: 21:04 Cataract; diabetes mellitus; Gastroparesis; hemodialysis; Hypertensive disorder; kidney kb4 failure; - PSHx: 21:04 heart bypass; Left arm dialysis fistula; kb4 - Immunization history:: Adult Immunizations up to date. - Infectious Disease History:: Denies. - Social history:: Smoking status: unknown. Screenin:03 [facility] ED Fall Risk Assessment (Adult) History of falling in the last 3 months, rg5 including since admission No falls in past 3 months (0 pts) Confusion or Disorientation No (0 pts) Intoxicated or Sedated No (0 pts) Impaired Gait Yes (1 pt) Mobility Assist Device Used Yes (1 pt) Altered Elimination Yes (1 pt) Score/Fall Risk Level 3 or more points = High Risk Oriented to surroundings, Maintained a safe environment, Hourly rounding (assess needs \T\ fall precautionary measures) done. Abuse screen: Denies threats or abuse. Denies injuries from another. Nutritional screening: No deficits noted. Tuberculosis screening: No symptoms or risk factors identified. Assessment: 22:03 General: Appears in no apparent distress. uncomfortable, Behavior is appropriate for rg5 age. Pain: Complains of pain in left leg Quality of pain is described as aching. Neuro: Level of Consciousness is awake, alert, obeys commands, Oriented to person, place, time, situation. Cardiovascular: Patient's skin is warm and dry. Respiratory: Airway is patent Trachea midline. GI: Abdomen is round obese. : No signs and/or symptoms were reported regarding the genitourinary system. EENT: No signs and/or symptoms were reported regarding the EENT system. Derm: Skin is fragile, Skin is dry, Skin temperature is warm. Musculoskeletal: Circulation, motion, and sensation intact. Range of motion: intact in all extremities. 23:08 Reassessment: Patient and/or family updated on plan of care and expected duration. Pain rg5 level reassessed. Patient is alert, oriented x 3, equal unlabored respirations, skin warm/dry/pink. Patient states symptoms have improved. 12/05 01:05 Reassessment: Patient and/or family updated on plan of care and expected duration. Pain kb4 level reassessed. Patient is alert, oriented x 3, equal unlabored respirations, skin warm/dry/pink. 01:36 Reassessment: report faxed to 2nd floor charge, family notified. kb4 02:34 Reassessment: Patient and/or family updated on plan of care and expected duration. Pain kb4 level reassessed. Patient is alert, oriented x 3, equal unlabored respirations, skin warm/dry/pink. Vital Signs: 12/04 20:49 BP 140 / 51; Pulse 86; Resp 22; Temp 98.6; Pulse Ox 86% on R/A; Height 5 ft. 6 in. ; kb4 Pain 0/10; 21:04 Weight 100.7 kg; kb4 22:00 BP 144 / 96; Pulse 67; Resp 17; Pulse Ox 95% on R/A; rg5 23:07 BP 140 / 76; Pulse 67; Resp 17; Pulse Ox 96% on R/A; rg5 12/05 01:25 BP 147 / 82; Pulse 61; Resp 18; Pulse Ox 97% on 1 lpm NC; kb4 02:33 BP 147 / 82; Pulse 64; Resp 18; Pulse Ox 95% on 1 lpm NC; kb4 12/04 20:49 Pain Scale: Adult kb4 ED Course: 12/04 20:43 Patient arrived in ED. im 20:53 Ildefonso Magdaleno, RN is Primary Nurse. rg5 21:04 Triage completed. kb4 21:04 Arm band placed on right wrist. kb4 21:08 Juan David DO is Attending Physician. tt7 22:03 Patient has correct armband on for positive identification. Bed in low position. Call rg5 light in reach. Side rails up X 1. Adult w/ patient. Door closed. Noise minimized. Warm blanket given. 22:03 Assist provider with bone marrow aspiration. Inserted saline lock: 20 gauge in right rg5 forearm, using aseptic technique. Blood collected. Flushed with 10 mL NS. 22:07 XRAY Chest (1 view) In Process Unspecified. EDMS 22:26 US Extremity Venous Unilateral Ltd In Process Unspecified. EDMS 23:30 CT Pelvis w cont In Process Unspecified. EDMS 12/05 00:49 Devang Haywood MD is Hospitalizing Provider. tt7 03:03 Provided Education on: need for admission . kb4 03:03 Patient admitted, IV remains in place. kb4 Administered Medications: 12/04 21:36 Drug: Acetaminophen PO 1000 mg PO once Route: PO; rg5 22:48 Follow up: Response: No adverse reaction; Pain is decreased rg5 21:36 Drug: Ketorolac IVP 15 mg IVP once Route: IVP; Site: right forearm; rg5 22:48 Follow up: Response: No adverse reaction; Pain is decreased rg5 12/05 01:05 Drug: hydrOXYzine PO 25 mg PO once Route: PO; kb4 01:26 Follow up: Response: No adverse reaction kb4 Medication: 12/04 22:03 VIS not applicable for this client. rg5 Outcome: 12/05 00:50 Decision to Hospitalize by Provider. tt7 03:02 Admitted to Med/surg accompanied by nurse, via stretcher, with oxygen, kb4 03:02 Condition: stable 03:02 Instructed on the need for admit, 03:03 Patient left the ED. kb4 Signatures: Dispatcher [employer] EDMS Virginie Herrera Rommel, RN RN rg5 Tiffany Swanson RN RN kb4 Juan David, DO DUNCAN tt7
[2024-12-05] MEDS ORDERED: hydrOXYzine HCL 25 MG TAB ONE (00:56)
--- NOTE | 2024-12-05 01:16 | P.HP ---
Certification for Inpatient Patient admitted to: Inpatient With expected LOS: >2 Midnights Practitioner: I am a practitioner with admitting privileges, knowledge of patient current condition, hospital course, and medical plan of care. Services: Services provided to patient in accordance with Admission requirements found in Title 42 Section 412.3 of the Code of Federal Regulations Patient History Date of Service: 12/05/24 Reason for admission: SOB History of Present Illness: 49 yrs old Male with past medical history of hypertension, hyperlipidemia, diabetes, gastroparesis, ESRD on dialysis, cataract, CAD status post CABG who was brought To ER with shortness of breath and generalized weakness. Patient states that he did not go for dialysis last 2 times because o f diarrhea and abdominal discomfort. Denies any chest pain. No fever or chills. No nausea vomiting diarrhea. Patient was assessed in the ER and is admitted for further management of fluid overload. Allergies promethazine [From Phenergan] Adverse Reaction (Unknown, Verified 11/11/24 06:48) worsens RLS Home medications list reviewed: Yes Home Medications: Aspirin [Aspirin EC 81 MG] 81 mg PO DAILY 12/18/21 Atorvastatin Calcium 1 tab PO BEDTIME 04/24/22 Telmisartan 40 mg PO BEDTIME 04/24/22 Promethazine Tab [Phenergan*] 25 mg PO Q6HP PRN #30 tab 11/26/22 ALPRAZolam [Xanax*] 1 mg PO DAILY 03/07/23 Ezetimibe 10 mg PO DAILY 03/07/23 Hyoscyamine Sulfate [Levsin-Sl] 0.125 mg SL Q6H 03/07/23 Insulin Aspart [Novolog Flexpen] 20 unit SQ TID 03/07/23 Ropinirole HCl 4 mg PO BEDTIME 03/07/23 Sevelamer Carbonate [Renvela] 1 tab PO TID 03/07/23 Ticagrelor [Brilinta*] 90 mg PO BID 03/07/23 Tizanidine [Zanaflex*] 4 mg PO BEDTIME 03/07/23 atenoloL [Tenormin] 25 mg PO BEDTIME 03/07/23 Hydrocodone 10/APAP 325 [[place] 10/325] 1 tab PO Q6H PRN #30 tab 11/17/24 - Past Medical/Surgical History Diabetic: Yes Past Medical History: Reviewed- Non-Contributory -: DM II with Polyneuropathy -: HTN -: GERD -: Diabetic gastroparesis/ IBS -: ESRD on HD (Dr. Mccoy/ Dr. Mayorga) -: Diastolic CHF. Mitral Stenosis. MR. -: CAD s/p CABG Past Surgical History: Reviewed- Non-Contributory -: Cataract surgery -: Laser for Retinal Detachment -: HD fistula surgery -: CABG Psychosocial/ Personal History: Patient is . He has no children. - Family History Father -: Diabetes, Kidney disease - Social History Smoking Status: Never smoker Alcohol use: No CD- Drugs: No Caffeine use: No Review of Systems 10-point ROS is otherwise unremarkable Physical Examination - Vital Signs Temperature: 98.6 F Blood Pressure: 140/90 Pulse: 86 Respirations: 20 Pulse Ox (%): 94 - Physical Exam General: Alert, Oriented x3, Mild distress HEENT: Atraumatic, Normocephalic Neck: Supple Respiratory: Normal air movement, Crackles/rales Cardiovascular: Regular rate/rhythm, Normal S1 S2 Capillary refill: <2 Seconds Gastrointestinal: Soft and benign, W/out hepatosplenomegaly Musculoskeletal: No clubbing Integumentary: No rashes Neurological: Other (Alert awake nonfocal) Lymphatics: No axilla or inguinal lymphadenopathy - Studies Laboratory Data (last 24 hrs) 12/04/24 12/04/24 21:30 21:30 WBC 5.00 Hgb 9.0 L Hct 27.9 L Plt Count 174 Sodium 136 Potassium 4.8 BUN 40 H Creatinine 6.21 H Glucose 298 H Total Bilirubin 0.6 AST 15 ALT < 14 L Alkaline Phosphatase 153 H Assessment and Plan - Plan Respiratory distress Acute hypoxic respiratory failure Fluid overload Anasarca Started on aggressive diuresis Monitor closely on telemetry Oxygen supplementation NSTEMI possibly type II Will trend cardiac enzymes Will monitor telemetry Started on aspirin and statin Patient denies any chest pain Cardiology consult if troponin uptrending CAD status post CABG Continue home medications and titrate as needed Hypertension Antihypertensives titrated Continue home medications and titrate as needed Hyperlipidemia Continue statin ESRD on hemodialysis Monitor renal parameters Nephrology consulted Electrolytes monitor and replace accordingly Diabetes Insulin sliding scale Accu-Chek before every meal and at bedtime Anemia of chronic disease Monitor H&H closely No overt bleeding at this time GI/DVT prophylaxis Advanced directive full code Discharge Plan: Home Plan to discharge in: 48 Hours - Advance Directives Does patient have a Living Will: No Does patient have a Durable POA for Healthcare: No - Code Status/Comfort Care Code Status: Full Code Time Spent Managing Pts Care (In Minutes): 49
[2024-12-05] MEDS: ALBUTEROL 2.5 MG/3 ML NEB SOL NEB PRN (08:06)
[2024-12-05] MEDS: ASPIRIN EC 81 MG TAB PO SCH (08:51)
[2024-12-05] MEDS: EZETIMIBE 10 MG TAB PO SCH (08:51)
[2024-12-05] MEDS: HEPARIN 5000 UNIT/ML 1 ML VIAL SQ SCH (08:51)
[2024-12-05] MEDS ORDERED: INSULIN REGULAR (HUMAN) 100 UNIT/ML IV SCH (11:30)
--- NOTE | 2024-12-05 12:04 | P.CNS ---
Date of Consult: 12/05/24 Reason for Consult: ESRD Chief Complaint: SOB History of Present Illness: 49 yrs old Male with past medical history of hypertension, hyperlipidemia, diabetes, gastroparesis, ESRD on dialysis, cataract, CAD status post CABG who was brought To ER with shortness of breath and generalized weakness.. has missed HD for the last 2 session .. admitted for fluid overloaded and HD needed . Allergies promethazine [From Phenergan] Adverse Reaction (Unknown, Verified 11/11/24 06:48) worsens RLS Home Medications: Aspirin [Aspirin EC 81 MG] 81 mg PO DAILY 12/18/21 Atorvastatin Calcium 1 tab PO BEDTIME 04/24/22 Telmisartan 40 mg PO BEDTIME 04/24/22 Promethazine Tab [Phenergan*] 25 mg PO Q6HP PRN #30 tab 11/26/22 ALPRAZolam [Xanax*] 1 mg PO DAILY 03/07/23 Ezetimibe 10 mg PO DAILY 03/07/23 Hyoscyamine Sulfate [Levsin-Sl] 0.125 mg SL Q6H 03/07/23 Insulin Aspart [Novolog Flexpen] 20 unit SQ TID 03/07/23 Ropinirole HCl 4 mg PO BEDTIME 03/07/23 Sevelamer Carbonate [Renvela] 1 tab PO TID 03/07/23 Ticagrelor [Brilinta*] 90 mg PO BID 03/07/23 Tizanidine [Zanaflex*] 4 mg PO BEDTIME 03/07/23 atenoloL [Tenormin] 25 mg PO BEDTIME 03/07/23 Hydrocodone 10/APAP 325 [[place] 10/325] 1 tab PO Q6H PRN #30 tab 11/17/24 - Past Medical/Surgical History Diabetic: Yes -: DM II with Polyneuropathy -: HTN -: GERD -: Diabetic gastroparesis/ IBS -: ESRD on HD (Dr. Mccoy/ Dr. Mayorga) -: Diastolic CHF. Mitral Stenosis. MR. -: CAD s/p CABG -: Cataract surgery -: Laser for Retinal Detachment -: HD fistula surgery -: CABG Psychosocial/ Personal History: Patient is . He has no children. - Family History Father Medical History: Diabetes, Kidney disease - Social History Smoking Status: Unknown if ever smoked Alcohol use: No CD- Drugs: No Caffeine use: No Place of Residence: Home Review of Systems Unremarkable General: Unremarkable Eyes: Unremarkable ENT: Unremarkable Respiratory: Shortness of Breath, SOB with Excertion Cardiovascular: Edema Gastrointestinal: Distention, No Distention Genitourinary: Unremarkable Musculoskeletal: Unremarkable Neurological: Unremarkable Physical Examination Temp Pulse Resp BP Pulse Ox 98.2 F 70 21 H 118/56 L 100 12/05/24 08:00 12/05/24 09:10 12/05/24 09:10 12/05/24 09:10 12/05/24 09:10 General: Alert, Oriented x3 HEENT: Atraumatic Respiratory: Normal air movement, Diminished Cardiovascular: Edema Gastrointestinal: Soft and benign, Distended Neurological: Normal speech Laboratory Data (last 24 hrs) 12/04/24 12/04/24 21:30 21:30 WBC 5.00 Hgb 9.0 L Hct 27.9 L Plt Count 174 Sodium 136 Potassium 4.8 BUN 40 H Creatinine 6.21 H Glucose 298 H Total Bilirubin 0.6 AST 15 ALT < 14 L Alkaline Phosphatase 153 H Conclusions/Impression: ESRD on HD , TTS , missed last 2 session of HD respiratory failure / fluid overloaded plan for HD today for metabolic Quang and UF ascetics anemia of chronic disease : monitor the need for SONY
[2024-12-05] MEDS: INSULIN REGULAR (HUMAN) 100 UNIT/ML IV SCH (12:35)
[2024-12-05] MEDS: ALBUMIN HUMAN 25% 100 ML IV ONE (14:45)
--- NOTE | 2024-12-05 16:17 | P.PN ---
Date of Service: 12/05/24 Subjective Patient with numerous complaints including shortness of breath; also with CP. Physical Examination - Vital Signs Reviewed - Physical Exam General: Alert, Oriented x3, Mild distress Respiratory: basilar crackles/rales Cardiovascular: Regular rate/rhythm, Normal S1 S2 Gastrointestinal: Soft and benign, W/out hepatosplenomegaly Musculoskeletal: muscular atrophy Integumentary: No rashes Neurological: no focal deficits Extremities: no C/C/E Assessment and Plan - Assesment/Plan 1. Respiratory distress secondary to acute hypoxic respiratory failure; HD per Nephrology 2. NSTEMI-possibly Type II HI-CAD status post CABG; monitor troponins. cardiology consulted 3. Hypertension; antihypertensives titrated. Continue home medications and titrate as needed 4. Hyperlipidemia; continue statin 5. ESRD on hemodialysis; monitor renal parameters. Nephrology consulted. 6. Type 2 DM; insulin sliding [id number] before every meal and at bedtime 7. Anemia of chronic kidney disease; monitor H&H closely GI/DVT prophylaxis Advanced directive full code Discharge Plan: Home Plan to discharge in: 48 Hours - Advance Directives Does patient have a Living Will: No Does patient have a Durable POA for Healthcare: No - Code Status/Comfort Care Code Status: Full Code Time Spent Managing Pts Care (In Minutes): 25
[2024-12-05] MEDS: ATORVASTATIN 40 MG TAB PO SCH (20:50)
[2024-12-06] MEDS: ACETAMINOPHEN 325 MG TABLET PO PRN (00:05)
[2024-12-06 05:52] LABS: Absolute Lymphocytes (CBC) 0.7 K/uL (0.7-4.9); Hematocrit 27.8 % (39.6-49.0); Hemoglobin 9.1 g/dL (13.6-17.9); MCH 30.4 pg (27.0-35.0); MCHC 32.7 g/dL (32.0-36.0); MCV 93.0 fL (80-100); MPV 7.7 fL (7.6-11.3); Nucleated RBC Absolute Count 0.0 (0-0); Nucleated Red Blood Cells % 0.1 % (0-0); RBC Red Blood Cell Count 3.00 M/uL (4.33-5.43); White Blood Count 4.60 thou/uL (4.3-10.9)
[2024-12-06 06:12] LABS: ALT/SGPT < 14 U/L (16-61); AST/SGOT 15 U/L (15-37); Albumin 2.7 g/dL (3.4-5.0); Albumin/Globulin Ratio 0.5 (1.1-1.8); Alkaline Phosphatase 160 U/L (45-117); Anion Gap 9.9 mEq/L (5.0-15.0); BUN Blood Urea Nitrogen 39 mg/dL (7-18); Globulin 5.2 g/dL (2.3-3.5); Glucose Level 294 mg/dL (74-106); Potassium 4.9 mEq/L (3.5-5.1)
[2024-12-06] MEDS: TICAGRELOR 90 MG TABLET PO SCH (08:26)
--- NOTE | 2024-12-06 09:41 | P.PN ---
Date of Service: 12/06/24 Vital Signs Temp Pulse Resp BP Pulse Ox 98.0 F 73 16 122/46 L 94 12/06/24 08:00 12/06/24 08:00 12/06/24 08:00 12/06/24 08:00 12/06/24 08:00 Medications Acetaminophen (Acetaminophen 325 Mg Tablet) 650 mg PO Q4HP PRN PRN Reason: Pain scale 2-4 (Mild) Last Admin: 12/06/24 00:05 Dose: 650 mg Albuterol Sulfate (Albuterol 2.5 Mg/3 Ml Neb [place]) 2.5 mg NEB Q6HP PRN PRN Reason: SHORTNESS OF BREATH Last Admin: 12/05/24 19:44 Dose: 2.5 mg Aspirin (Aspirin Ec 81 Mg Tab) 81 mg PO DAILY [facility] Last Admin: 12/06/24 08:26 Dose: 81 mg Atenolol (Atenolol 25 Mg Tab) 25 mg PO BEDTIME [facility] Atorvastatin Calcium (Atorvastatin 40 Mg Tab) 40 mg PO BEDTIME [facility] Last Admin: 12/05/24 20:50 Dose: 40 mg Ezetimibe (Ezetimibe 10 Mg Tab) 10 mg PO DAILY [facility] Last Admin: 12/06/24 08:26 Dose: 10 mg Heparin Sodium (Porcine) (Heparin 5000 Unit/Ml 1 Ml Vial) 5,000 unit SQ Q12HR [facility], [facility]1983 Last Admin: 12/06/24 08:27 Dose: 5,000 unit Home Med (Hyoscyamine Sulfate [Levsin-Sl]) 0.125 mg SL Q6H [facility] Home Med (Ropinirole Hcl [Ropinirole Hcl]) 2 mg PO BEDTIME [facility] Home Med (Telmisartan [Telmisartan]) 40 mg PO BEDTIME [facility]1983 Insulin Human Regular (Insulin Regular (Human) 100 Unit/Ml) 0 unit IV ACHS [facility] Last Admin: 12/06/24 08:30 Dose: 2 unit Ondansetron HCl (Ondansetron 4 Mg/2 Ml Vial) 4 mg IV Q6HP PRN PRN Reason: NAUSEA / VOMITING Promethazine HCl (Promethazine 25 Mg Tablet) 25 mg PO Q12HP PRN PRN Reason: NAUSEA / VOMITING Sevelamer Carbonate (Sevelamer Carbonate 800 Mg Tablet) 800 mg PO TID [facility] Ticagrelor (Ticagrelor 90 Mg Tablet) 90 mg PO BID [facility] Last Admin: 12/06/24 08:26 Dose: 90 mg Tizanidine HCl (Tizanidine 4 Mg Tablet) 4 mg PO BEDTIME [facility] Assessment/ Plan: Nephrology Progress Note No Dyspnea No Chest Pain No Acute Events Overnight He is requesting another HD treatment today for UF Leg Pain Vital Signs, Medications, Blood Work, and Imaging reviewed in the chart NAD. NCAT. MMM. Neck Supple. Normal Respiratory Effort. RRR. Abd ND. No C/C. LE Edema 3+. No Rash. AAO. Normal Speech. EXAMINATION: ONE VIEW CHEST XR CLINICAL INDICATION: SOB TECHNIQUE: Frontal chest projection is submitted. Examination is limited by patient positioning and technique. COMPARISON: 11/10/2024 FINDINGS: Mild/moderate bilateral pulmonary opacities likely pulmonary edema. The heart is moderately enlarged in size. Sternotomy wires. Changes of prior CABG. IMPRESSION: Moderate CHF versus volume overload. Assessment & Plan ESRD on HD TTS -HD TIW -Acute HD today HTN with CKD/ CHF -Continue Atenolol -Continue Telmisartan Diastolic CHF, A/C Peripheral Edema -Low sodium diet -UF with HD DM II with CKD & Polyneuropathy -RISS Anemia in CKD -Retacrit qHD CKD MBD Secondary HyperParathyroidism -Continue Renvela Case reviewed with Dr. Lee
--- NOTE | 2024-12-06 09:51 | P.CNS ---
Date of Consult: 12/06/24 Chief Complaint: SOB History of Present Illness: Patient with PMH of CAD s/p CABG x3, followed by stent, presented with left lower extremity leg pain, asking for more pain medications, also he missed dialysis so presented with swelling of bilateral lower extremities and SHORT, denies chest pain, no palpitations, no syncope. Allergies promethazine [From Phenergan] Adverse Reaction (Unknown, Verified 11/11/24 06:48) worsens RLS Home medications list reviewed: Yes Home Medications: Aspirin [Aspirin EC 81 MG] 81 mg PO DAILY 12/18/21 Atorvastatin Calcium 1 tab PO BEDTIME 04/24/22 Telmisartan 40 mg PO BEDTIME 04/24/22 Promethazine Tab [Phenergan*] 25 mg PO Q6HP PRN #30 tab 11/26/22 ALPRAZolam [Xanax*] 1 mg PO DAILY 03/07/23 Ezetimibe 10 mg PO DAILY 03/07/23 Hyoscyamine Sulfate [Levsin-Sl] 0.125 mg SL Q6H 03/07/23 Insulin Aspart [Novolog Flexpen] 20 unit SQ TID 03/07/23 Ropinirole HCl 4 mg PO BEDTIME 03/07/23 Sevelamer Carbonate [Renvela] 1 tab PO TID 03/07/23 Ticagrelor [Brilinta*] 90 mg PO BID 03/07/23 Tizanidine [Zanaflex*] 4 mg PO BEDTIME 03/07/23 atenoloL [Tenormin] 25 mg PO BEDTIME 03/07/23 Hydrocodone 10/APAP 325 [[place] 10/325] 1 tab PO Q6H PRN #30 tab 11/17/24 - Past Medical/Surgical History Diabetic: Yes -: DM II with Polyneuropathy -: HTN -: GERD -: Diabetic gastroparesis/ IBS -: ESRD on HD (Dr. Mccoy/ Dr. Mayorga) -: Diastolic CHF. Mitral Stenosis. MR. -: CAD s/p CABG -: Cataract surgery -: Laser for Retinal Detachment -: HD fistula surgery -: CABG Psychosocial/ Personal History: Patient is . He has no children. - Family History Father Medical History: Diabetes, Kidney disease - Social History Smoking Status: Unknown if ever smoked Alcohol use: No CD- Drugs: No Caffeine use: No Place of Residence: Home Review of Systems 10-point ROS is otherwise unremarkable Physical Examination Temp Pulse Resp BP Pulse Ox 98.0 F 73 16 122/46 L 94 12/06/24 08:00 12/06/24 08:00 12/06/24 08:00 12/06/24 08:00 12/06/24 08:00 General: Alert, In no apparent distress HEENT: Atraumatic, PERRLA, Mucous membr. moist/pink, EOMI, Sclerae nonicteric Neck: Supple, 2+ carotid pulse no bruit, No LAD, Without JVD or thyroid abnormality Respiratory: Clear to auscultation bilaterally, Normal air movement Cardiovascular: Regular rate/rhythm, Normal S1 S2 Gastrointestinal: Normal bowel sounds, No tenderness Musculoskeletal: No tenderness Integumentary: No rashes Neurological: Normal gait, Normal speech, Normal tone, Normal affect Lymphatics: No axilla or inguinal lymphadenopathy - Problems (1) Chest pain, rule out acute myocardial infarction Current Visit: No Status: Acute Plan: Patient with mild leak in troponin with no significant delta. patient is chest pain free continue ASA 81 mg daily Continue Brilinta 90 mg po BID Continue home dose lipitor and zetia patient to follow up with his gang worker at [facility] (Dr. Crawford) No further inpatient cardiac work up needed Cardiology will sign off, please call with any questions. (2) CHF (congestive heart failure) Current Visit: No Status: Chronic Plan: Patient is dialysis dependant for volume status continue Atenolol 25 mg daily monitor input and output and electrolytes. Qualifiers: Heart failure type: diastolic Heart failure chronicity: chronic Qualified Code(s): I50.32 - Chronic diastolic (congestive) heart failure (3) HTN (hypertension) Current Visit: No Status: Chronic Plan: adjust medications as above. Qualifiers: Hypertension type: primary hypertension Qualified Code(s): I10 - Essential (primary) hypertension
[2024-12-06] MEDS: EPOETIN ALFA-EPBX 10,000 UNIT/ML VIAL SQ ONE (10:00)
--- NOTE | 2024-12-06 16:17 | P.PN ---
Date of Service: 12/06/24 Subjective: Endorsing pain over the left calf to the outer left inferior thigh. His mother is at bedside. He denies any redness, fever, chills. Physical Examination - Vital Signs Reviewed - Physical Exam General: Alert, Oriented x3, Mild distress Respiratory: basilar crackles/rales Cardiovascular: Regular rate/rhythm, Normal S1 S2 Gastrointestinal: Soft and benign, W/out hepatosplenomegaly Musculoskeletal: muscular atrophy Integumentary: No rashes Neurological: no focal deficits Extremities: no C/C/E Assessment and Plan 12/06 - Regulate volume status with HD, per nephrology - Continue aspirin, Brilinta, Lipitor, Zetia, follow-up with his cement mason helper at [facility] (Dr. Crawford) - Lower extremity venous study without evidence of clot, CT scan on 831 with severe swelling likely related to venous stasis or cellulitis - States he had a CTA which did not reveal any significant blockages in the left extremity - Resume home blood pressure medications including telmisartan, atenolol - Now on Requip - Assesment/Plan 1. Respiratory distress secondary to acute hypoxic respiratory failure; HD per Nephrology 2. NSTEMI-possibly Type II ME-CAD status post CABG; monitor troponins. cardiology consulted 3. Hypertension; antihypertensives titrated. Continue home medications and titrate as needed 4. Hyperlipidemia; continue statin 5. ESRD on hemodialysis; monitor renal parameters. Nephrology consulted. 6. Type 2 DM; insulin sliding [id number] before every meal and at bedtime 7. Anemia of chronic kidney disease; monitor H&H closely GI/DVT prophylaxis Advanced directive full code Discharge Plan: Home Plan to discharge in: 48 Hours - Advance Directives Does patient have a Living Will: No Does patient have a Durable POA for Healthcare: No - Code Status/Comfort Care Code Status: Full Code
[2024-12-06] MEDS: ROPINIROLE HCL 1 MG TAB PO SCH (20:59)
[2024-12-06] MEDS: TIZANIDINE 4 MG TABLET PO SCH (21:00)
[2024-12-06] MEDS: TELMISARTAN 40 MG PO SCH (21:00)
[2024-12-06] MEDS ORDERED: HOME MED 1 EA UNK (Ropinirole Hcl [Ropinirole Hcl] 4 MG Tablet) PO SCH (21:00)
[2024-12-06] MEDS: HYOSCYAMINE SULF 0.125 MG TAB SL SCH (23:49)
[2024-12-07] MEDS: LOPERAMIDE HCL 2 MG CAPSULE PO ONE (06:10)
[2024-12-07] MEDS: SEVELAMER CARBONATE 800 MG TABLET PO SCH (09:13)
[2024-12-07 09:36] LABS: Absolute Lymphocytes (CBC) 0.6 K/uL (0.7-4.9); Hematocrit 29.1 % (39.6-49.0); Hemoglobin 9.3 g/dL (13.6-17.9); MCH 29.7 pg (27.0-35.0); MCHC 32.0 g/dL (32.0-36.0); MCV 92.8 fL (80-100); MPV 7.8 fL (7.6-11.3); Nucleated RBC Absolute Count 0.0 (0-0); Nucleated Red Blood Cells % 0.1 % (0-0); RBC Red Blood Cell Count 3.13 M/uL (4.33-5.43); White Blood Count 4.50 thou/uL (4.3-10.9)
[2024-12-07 10:03] LABS: AST/SGOT 14 U/L (15-37); Albumin 2.6 g/dL (3.4-5.0); Albumin/Globulin Ratio 0.5 (1.1-1.8); Alkaline Phosphatase 151 U/L (45-117); Anion Gap 11.4 mEq/L (5.0-15.0); BUN Blood Urea Nitrogen 32 mg/dL (7-18); Globulin 5.2 g/dL (2.3-3.5); Glucose Level 267 mg/dL (74-106); Potassium 4.4 mEq/L (3.5-5.1)
[2024-12-07 10:04] LABS: ALT/SGPT < 14 U/L (16-61)
--- NOTE | 2024-12-07 13:24 | RAD REPORT ---
EXAMINATION: CT LEFT LOWER EXTREMITY WITH CONTRAST CLINICAL INDICATION: Male, 49 years old.[facility] MAIN lower leg Rule out cellulitis /effusion. Pain from swelling TECHNIQUE: CT left lower extremity was performed, following intravenous administration of iodine cont rast, as per department protocol. Axial, sagittal and coronal reconstructions were obtained. One or more of the following dose reduction techniques were used: Automated exposure control, adjustment of the mA and/or kV according to patient size, and/or iterative reconstruction. Unless otherwise specified, incidental findings do not require dedicated imaging follow-up. COMPARISON: No prior exam. FINDINGS: MUSCULOSKELETAL: No acute osseous abnormality. Mild suprapatellar knee joint effusion. No significant degenerative changes or erosions. No suspicious focal osseous lesions. SOFT TISSUES: Diffuse moderate subcutaneous soft tissue edema most pronounced along the anterolateral lower leg. No appreciable discrete fluid collections. VESSELS: Pronounced medial calcifications throughout the medium and small sized vessels severe narrow ing of the tibioperoneal trunk and moderate to advanced multifocal narrowing along the anterior tibial artery. Density of medial calcifications limits evaluation of patency along the distal vessels particularly along the peroneal artery. LYMPH NODES: No lymphadenopathy. ADDITIONAL FINDINGS: None. IMPRESSION: Diffuse subcutaneous soft tissue edema, could relate to cellulitis. No appreciable collections or sof t tissue gas. No suspicious osseous abnormality. Extensive multifocal narrowing of the tibioperoneal trunk and distal branches as above.
[2024-12-07] MEDS: PROMETHAZINE 25 MG TABLET PO PRN (13:51)
--- NOTE | 2024-12-07 15:41 | P.PN ---
Date of Service: 12/07/24 Subjective: His mother is at bedside. He denies any redness, fever, chills. Physical Examination - Vital Signs Reviewed - Physical Exam General: Alert, Oriented x3, Mild distress Respiratory: basilar crackles/rales Cardiovascular: Regular rate/rhythm, Normal S1 S2 Gastrointestinal: Soft and benign, W/out hepatosplenomegaly Musculoskeletal: muscular atrophy Integumentary: No rashes Neurological: no focal deficits Extremities: no C/C/E Assessment and Plan 12/07 - Leg CT with diffuse subcutaneous soft tissue edema related to cellulitis and extensive multifocal narrowing of the tibioperoneal trunk and distal branches as above - Start vancomycin and Rocephin, procalcitonin negative with elevated CRP, will touch base with infectious disease 12/06 - Regulate volume status with HD, per nephrology - Continue aspirin, Brilinta, Lipitor, Zetia, follow-up with his arboreal scientist at [facility] (Dr. Crawford) - Lower extremity venous study without evidence of clot, CT scan on 831 with severe swelling likely related to venous stasis or cellulitis - States he had a CTA which did not reveal any significant blockages in the left extremity - Resume home blood pressure medications including telmisartan, atenolol - Now on Requip - Assesment/Plan 1. Respiratory distress secondary to acute hypoxic respiratory failure; HD per Nephrology 2. NSTEMI-possibly Type II NE-CAD status post CABG; monitor troponins. cardiology consulted 3. Hypertension; antihypertensives titrated. Continue home medications and t itrate as needed 4. Hyperlipidemia; continue statin 5. ESRD on hemodialysis; monitor renal parameters. Nephrology consulted. 6. Type 2 DM; insulin sliding [id number] before every meal and at bedtime 7. Anemia of chronic kidney disease; monitor H&H closely GI/DVT prophylaxis Advanced directive full code Discharge Plan: Home Plan to discharge in: 48 Hours - Advance Directives Does patient have a Living Will: No Does patient have a Durable POA for Healthcare: No - Code Status/Comfort Care Code Status: Full Code
[2024-12-07] MEDS ORDERED: VANCOMYCIN 1 GM in NA CHLORIDE 0.9% 250 ML IVPB SCH (16:00)
[2024-12-07] MEDS: VANCOMYCIN 1.75 GM in NA CHLORIDE 0.9% 500 ML IVPB SCH (16:33)
--- NOTE | 2024-12-07 19:54 | P.PN ---
Date of Service: 12/07/24 Vital Signs Temp Pulse Resp BP Pulse Ox 98.3 F 72 20 121/65 97 12/07/24 16:00 12/07/24 16:00 12/07/24 16:00 12/07/24 16:00 12/07/24 16:00 Medications Acetaminophen (Acetaminophen 325 Mg Tablet) 650 mg PO Q4HP PRN PRN Reason: Pain scale 2-4 (Mild) Last Admin: 12/06/24 00:05 Dose: 650 mg Albuterol Sulfate (Albuterol 2.5 Mg/3 Ml Neb Penelope) 2.5 mg NEB Q6HP PRN PRN Reason: SHORTNESS OF BREATH Last Admin: 12/05/24 19:44 Dose: 2.5 mg Aspirin (Aspirin Ec 81 Mg Tab) 81 mg PO DAILY [facility] Last Admin: 12/07/24 09:14 Dose: 81 mg Atorvastatin Calcium (Atorvastatin 40 Mg Tab) 40 mg PO BEDTIME [facility] Last Admin: 12/06/24 20:59 Dose: 40 mg Ezetimibe (Ezetimibe 10 Mg Tab) 10 mg PO DAILY [facility] Last Admin: 12/07/24 09:13 Dose: 10 mg Heparin Sodium (Porcine) (Heparin 5000 Unit/Ml 1 Ml Vial) 5,000 unit SQ Q12HR [facility] Last Admin: 12/07/24 09:14 Dose: 5,000 unit Hyoscyamine Sulfate (Hyoscyamine Sulf 0.125 Mg Tab) 0.125 mg SL Q6HR [facility] Last Admin: 12/07/24 17:42 Dose: Not Given Ceftriaxone Sodium 2,000 mg/ (Sodium Chloride) 100 mls @ 200 mls/hr IV DAILY [facility]; Protocol Vancomycin HCl 1.75 gm/ Sodium (Chloride) 500 mls @ 250 mls/hr IVPB Q48H [facility] Last Admin: 12/07/24 16:33 Dose: 500 mls Insulin Human Regular (Insulin Regular (Human) 100 Unit/Ml) 0 unit IV ACHS [facility] Last Admin: 12/07/24 16:30 Dose: Not Given Ondansetron HCl (Ondansetron 4 Mg/2 Ml Vial) 4 mg IV Q6HP PRN PRN Reason: NAUSEA / VOMITING Promethazine HCl (Promethazine 25 Mg Tablet) 25 mg PO Q12H PRN PRN Reason: NAUSEA / VOMITING Last Admin: 12/07/24 13:51 Dose: 25 mg Ropinirole HCl (Ropinirole Hcl 1 Mg Tab) 4 mg PO BEDTIME [facility] Last Admin: 12/06/24 20:59 Dose: 4 mg Sevelamer Carbonate (Sevelamer Carbonate 800 Mg Tablet) 800 mg PO TIDWM [facility] Last Admin: 12/07/24 16:33 Dose: 800 mg Ticagrelor (Ticagrelor 90 Mg Tablet) 90 mg PO BID [facility] Last Admin: 12/07/24 09:14 Dose: 90 mg Assessment/ Plan: Nephrology Progress Note No Dyspnea No Chest Pain No Acute Events Overnight Persistent Leg Pain Vital Signs, Medications, Blood Work, and Imaging reviewed in the chart NAD. NCAT. MMM. Neck Supple. Normal Respiratory Effort. RRR. Abd ND. No C/C. LE Edema 2-3+. No Rash. AAO. Normal Speech. EXAMINATION: ONE VIEW CHEST XR CLINICAL INDICATION: SOB TECHNIQUE: Frontal chest projection is submitted. Examination is limited by patient positioning and technique. COMPARISON: 11/10/2024 FINDINGS: Mild/moderate bilateral pulmonary opacities likely pulmonary edema. The heart is moderately enlarged in size. Sternotomy wires. Changes of prior CABG. IMPRESSION: Moderate CHF versus volume overload. Assessment & Plan ESRD on HD TTS -HD TIW -Acute HD today HTN with CKD/ CHF -Continue Atenolol -Continue Telmisartan Diastolic CHF, A/C Peripheral Edema -Low sodium diet -UF with HD DM II with CKD & Polyneuropathy -RISS Anemia in CKD -Retacrit qHD CKD MBD Secondary HyperParathyroidism -Continue Renvela Case reviewed with Dr. Lee
[2024-12-08 07:54] LABS: Absolute Lymphocytes (CBC) 0.8 K/uL (0.7-4.9); Hematocrit 28.9 % (39.6-49.0); Hemoglobin 9.6 g/dL (13.6-17.9); MCH 30.8 pg (27.0-35.0); MCHC 33.4 g/dL (32.0-36.0); MCV 92.3 fL (80-100); MPV 7.1 fL (7.6-11.3); Nucleated RBC Absolute Count 0.0 (0-0); Nucleated Red Blood Cells % 0.1 % (0-0); RBC Red Blood Cell Count 3.13 M/uL (4.33-5.43); White Blood Count 5.20 thou/uL (4.3-10.9)
[2024-12-08 08:15] LABS: ALT/SGPT < 14 U/L (16-61); AST/SGOT < 10 U/L (15-37); Albumin 2.4 g/dL (3.4-5.0); Albumin/Globulin Ratio 0.5 (1.1-1.8); Alkaline Phosphatase 140 U/L (45-117); Anion Gap 13.0 mEq/L (5.0-15.0); BUN Blood Urea Nitrogen 26 mg/dL (7-18); Globulin 5.1 g/dL (2.3-3.5); Glucose Level 217 mg/dL (74-106); Potassium 4.0 mEq/L (3.5-5.1)
[2024-12-08] MEDS: CEFTRIAXONE 2,000 MG in NA CHLORIDE 0.9% 100 ML IV SCH (09:02)
[2024-12-08] MEDS: ONDANSETRON 4 MG/2 ML VIAL IV PRN (09:05)
[2024-12-08] MEDS ORDERED: ALBUTEROL 2.5 MG/3 ML NEB SOL NEB PRN (12:43)
--- NOTE | 2024-12-08 12:44 | P.CNS ---
Date of Consult: 12/08/24 reason for consult: cellulitis HpI;49 yrs old Male with past medical history of hypertension, CHF, diabetes, and ESRD on dialysis was brought To ER with shortness of breath and generalized weakness. He also report left lower extremity pain that started couple of months ago. He report missing his dialysis because of diarrhea. Denies any chest pain, fever, or N/V. Chest xray shows Moderate CHF versus volume overload. CT left lower extremity shows Diffuse subcutaneous soft tissue edema, could relate to cellulitis. No appreciable collections or soft tissue gas. No suspicious osseous abnormality. On examination, no drainage or wounds on left legs but there is tenderness on palpation to anterior thigh with mild swelling and warmth. Pt is on vancomycin and rocephin.WBC WNL. Pt has 4 diarrhea today. will add probiotic - Past Medical/Surgical History Diabetic: Yes Past Medical History: Reviewed- Non-Contributory -: DM II with Polyneuropathy -: HTN -: GERD -: Diabetic gastroparesis/ IBS -: ESRD on HD (Dr. Mccoy/ Dr. Mayorga) -: Diastolic CHF. Mitral Stenosis. MR. -: CAD s/p CABG Past Surgical History: Reviewed- Non-Contributory -: Cataract surgery -: Laser for Retinal Detachment -: HD fistula surgery -: CABG Psychosocial/ Personal History: Patient is . He has no children. - Family History Father -: Diabetes, Kidney disease - Social History Smoking Status: Never smoker Alcohol use: No CD- Drugs: No Caffeine use: No Review of Systems please see hpi Allergies No Known Allergies Allergy (Verified 12/06/24 23:05) Current Medications Acetaminophen (Acetaminophen 325 Mg Tablet) 650 mg PO Q4HP PRN PRN Reason: Pain scale 2-4 (Mild) Last Admin: 12/08/24 05:33 Dose: 650 mg Albuterol Sulfate (Albuterol 2.5 Mg/3 Ml Neb Penelope) 2.5 mg NEB Q6HP PRN PRN Reason: SHORTNESS OF BREATH Last Admin: 12/05/24 19:44 Dose: 2.5 mg Aspirin (Aspirin Ec 81 Mg Tab) 81 mg PO DAILY [facility] Last Admin: 12/08/24 09:02 Dose: 81 mg Atorvastatin Calcium (Atorvastatin 40 Mg Tab) 40 mg PO BEDTIME [facility] Last Admin: 12/07/24 21:02 Dose: 40 mg Ezetimibe (Ezetimibe 10 Mg Tab) 10 mg PO DAILY [facility] Last Admin: 12/08/24 09:02 Dose: 10 mg Hyoscyamine Sulfate (Hyoscyamine Sulf 0.125 Mg Tab) 0.125 mg SL Q6HR [facility] Last Admin: 12/08/24 11:57 Dose: Not Given Ceftriaxone Sodium 2,000 mg/ (Sodium Chloride) 100 mls @ 200 mls/hr IV DAILY [facility]; Protocol Last Admin: 12/08/24 09:02 Dose: 100 mls Vancomycin HCl 1.75 gm/ Sodium (Chloride) 500 mls @ 250 mls/hr IVPB Q48H [facility] Last Admin: 12/07/24 16:33 Dose: 500 mls Insulin Human Regular (Insulin Regular (Human) 100 Unit/Ml) 0 unit IV ACHS [facility] Last Admin: 12/08/24 11:30 Dose: Not Given Lactobacillus Acidoph/Bulgaricus (Lactobacillus/Acidophilus Tab) 1 tab PO BID [facility] Ondansetron HCl (Ondansetron 4 Mg/2 Ml Vial) 4 mg IV Q6HP PRN PRN Reason: NAUSEA / VOMITING Last Admin: 12/08/24 09:05 Dose: 4 mg Promethazine HCl (Promethazine 25 Mg Tablet) 25 mg PO Q12H PRN PRN Reason: NAUSEA / VOMITING Last Admin: 12/07/24 13:51 Dose: 25 mg Ropinirole HCl (Ropinirole Hcl 1 Mg Tab) 4 mg PO BEDTIME [facility] Last Admin: 12/07/24 21:01 Dose: 4 mg Sevelamer Carbonate (Sevelamer Carbonate 800 Mg Tablet) 800 mg PO TIDWM [facility] Last Admin: 12/08/24 11:57 Dose: Not Given Ticagrelor (Ticagrelor 90 Mg Tablet) 90 mg PO BID [facility] Last Admin: 12/08/24 09:02 Dose: 90 mg objective Temp Pulse Resp BP Pulse Ox 97.7 F 74 18 138/66 93 12/08/24 12:00 12/08/24 12:00 12/08/24 12:00 12/08/24 12:00 12/08/24 12:00 - Physical Exam General: Alert, Oriented x3, HEENT: Atraumatic, Normocephalic Neck: Supple Respiratory: 2L NC, basal crackles Cardiovascular: Regular rate/rhythm Capillary refill: <2 Seconds Gastrointestinal: Soft and NT, ND extremity: tenderness and warmth on palpation to right anterior thigh with mild swelling Neurological: respond appropriately to questions assessment and planning Left lower extremity cellulitis CHF DM2 ESRD anemia of chronic disease consider dc vancomycin and rocephin. add ancef. There's no wound or drainage to the site. will continue to monitor for infection with wbc and fever trend Pt has 4 BM charted today. will add probiotic thank you for the consult Dr Lee. case discussed and in agreement with Dr erazo
--- NOTE | 2024-12-08 15:45 | P.PN ---
Date of Service: 12/08/24 Subjective: Resting comfortably. No acute complaints. Vital stable overnight Physical Examination - Vital Signs Reviewed - Physical Exam General: Alert, Oriented x3, Mild distress Respiratory: basilar crackles/rales Cardiovascular: Regular rate/rhythm, Normal S1 S2 Gastrointestinal: Soft and benign, W/out hepatosplenomegaly Musculoskeletal: muscular atrophy Integumentary: No rashes Neurological: no focal deficits Extremities: no C/C/E Assessment and Plan 12/08 - Left leg cellulitis: IV antibiotics switched over to Ancef, probiotics per ID - Continue dialysis per nephrology - Discharge planning - Continue Brilinta, statin, aspirin 12/07 - Leg CT with diffuse subcutaneous soft tissue edema related to cellulitis and extensive multifocal narrowing of the tibioperoneal trunk and distal branches as above - Start vancomycin and Rocephin, procalcitonin negative with elevated CRP, will touch base with infectious disease 12/06 - Regulate volume status with HD, per nephrology - Continue aspirin, Brilinta, Lipitor, Zetia, follow-up with his senior sql dba at [facility] (Dr. Crawford) - Lower extremity venous study without evidence of clot, CT scan on 831 with severe swelling likely related to venous stasis or cellulitis - States he had a CTA which did not reveal any significant blockages in the left extremity - Resume home blood pressure medications including telmisartan, atenolol - Now on Requip - Assesment/Plan 1. Respiratory distress secondary to acute hypoxic respiratory failure; HD per Nephrology 2. NSTEMI-possibly Type II [place]-CAD status post CABG; monitor troponins. cardiology consulted 3. Hypertension; antihypertensives titrated. Continue home medications and titrate as needed 4. Hyperlipidemia; continue statin 5. ESRD on hemodialysis; monitor renal parameters. Nephrology consulted. 6. Type 2 DM; insulin sliding [id number] before every meal and at bedtime 7. Anemia of chronic kidney disease; monitor H&H closely GI/DVT prophylaxis Advanced directive full code Discharge Plan: Home Plan to discharge in: 48 Hours - Advance Directives Does patient have a Living Will: No Does patient have a Durable POA for Healthcare: No - Code Status/Comfort Care Code Status: Full Code
[2024-12-08] MEDS: LACTOBACILLUS/ACIDOPHILUS TAB PO SCH (21:11)
[2024-12-08] MEDS: CEFAZOLIN 1 GM in NA CHLORIDE 0.9% 50 ML IVPB SCH (21:11)
--- NOTE | 2024-12-08 22:13 | P.PN ---
Date of Service: 12/08/24 Vital Signs Temp Pulse Resp BP Pulse Ox 97.8 F 76 19 135/62 92 12/08/24 20:00 12/08/24 20:00 12/08/24 20:00 12/08/24 20:00 12/08/24 20:00 Medications Acetaminophen (Acetaminophen 325 Mg Tablet) 650 mg PO Q4HP PRN PRN Reason: Pain scale 2-4 (Mild) Last Admin: 12/08/24 05:33 Dose: 650 mg Albuterol Sulfate (Albuterol 2.5 Mg/3 Ml Neb Penelope) 2.5 mg NEB [id number] PRN PRN Reason: SHORTNESS OF BREATH Aspirin (Aspirin Ec 81 Mg Tab) 81 mg PO DAILY [facility] Last Admin: 12/08/24 09:02 Dose: 81 mg Atorvastatin Calcium (Atorvastatin 40 Mg Tab) 40 mg PO BEDTIME [facility] Last Admin: 12/08/24 21:11 Dose: 40 mg Ezetimibe (Ezetimibe 10 Mg Tab) 10 mg PO DAILY [facility] Last Admin: 12/08/24 09:02 Dose: 10 mg Hyoscyamine Sulfate (Hyoscyamine Sulf 0.125 Mg Tab) 0.125 mg SL Q6HR [facility] Last Admin: 12/08/24 18:00 Dose: Not Given Cefazolin Sodium 1 gm/ Sodium (Chloride) 50 mls @ 100 mls/hr IVPB Q12HR [facility]; Protocol Last Admin: 12/08/24 21:11 Dose: 50 mls Insulin Human Regular (Insulin Regular (Human) 100 Unit/Ml) 0 unit IV ACHS [facility] Last Admin: 12/08/24 20:05 Dose: Not Given Lactobacillus Acidoph/Bulgaricus (Lactobacillus/Acidophilus Tab) 1 tab PO BID [facility] Last Admin: 12/08/24 21:11 Dose: 1 tab Ondansetron HCl (Ondansetron 4 Mg/2 Ml Vial) 4 mg IV Q6HP PRN PRN Reason: NAUSEA / VOMITING Last Admin: 12/08/24 09:05 Dose: 4 mg Promethazine HCl (Promethazine 25 Mg Tablet) 25 mg PO Q12H PRN PRN Reason: NAUSEA / VOMITING Last Admin: 12/07/24 13:51 Dose: 25 mg Ropinirole HCl (Ropinirole Hcl 1 Mg Tab) 4 mg PO BEDTIME [facility] Last Admin: 12/08/24 21:11 Dose: 4 mg Sevelamer Carbonate (Sevelamer Carbonate 800 Mg Tablet) 800 mg PO TIDWM [facility] Last Admin: 12/08/24 17:00 Dose: Not Given Ticagrelor (Ticagrelor 90 Mg Tablet) 90 mg PO BID [facility] Last Admin: 12/08/24 21:10 Dose: 90 mg Assessment/ Plan: Nephrology Progress Note No Dyspnea No Chest Pain No Acute Events Overnight Persistent Leg Pain Poor appetite Vital Signs, Medications, Blood Work, and Imaging reviewed in the chart NAD. NCAT. MMM. Neck Supple. Normal Respiratory Effort. RRR. Abd ND. No C/C. LE Edema 1-2+. No Rash. AAO. Normal Speech. EXAMINATION: ONE VIEW CHEST XR CLINICAL INDICATION: SOB TECHNIQUE: Frontal chest projection is submitted. Examination is limited by patient positioning and technique. COMPARISON: 11/10/2024 FINDINGS: Mild/moderate bilateral pulmonary opacities likely pulmonary edema. The heart is moderately enlarged in size. Sternotomy wires. Changes of prior CABG. IMPRESSION: Moderate CHF versus volume overload. Assessment & Plan ESRD on HD TTS -HD TIW HTN with CKD/ CHF -Continue Atenolol -Continue Telmisartan Diastolic CHF, A/C Peripheral Edema -Low sodium diet -UF with HD DM II with CKD & Polyneuropathy -RISS Anemia in CKD -Retacrit qHD CKD MBD Secondary HyperParathyroidism -Continue Renvela LLE Cellulitis -Continue Abx Hospitalist note reviewed Case reviewed with Dr. Lee
[2024-12-09 04:08] VITALS: BMI 32.6
[2024-12-09 08:12] LABS: Albumin 2.7 g/dL (3.4-5.0); Anion Gap 11.0 mEq/L (5.0-15.0); BUN Blood Urea Nitrogen 30.0 mg/dL (7-18); Glucose Level 190.0 mg/dL (74-106); Potassium 4.0 mEq/L (3.5-5.1)
[2024-12-09] MEDS: LOPERAMIDE HCL 2 MG CAPSULE PO PRN (08:32)
[2024-12-09 08:39] VITALS: O2SAT 98
--- NOTE | 2024-12-09 16:26 | P.PN ---
Date of Service: 12/09/24 Subjective: Resting comfortably. No acute complaints. Vital stable overnight Physical Examination - Vital Signs Reviewed - Physical Exam General: Alert, Oriented x3, Mild distress Respiratory: basilar crackles/rales Cardiovascular: Regular rate/rhythm, Normal S1 S2 Gastrointestinal: Soft and benign, W/out hepatosplenomegaly Musculoskeletal: muscular atrophy Integumentary: No rashes Neurological: no focal deficits Extremities: no C/C/E Assessment and Plan 12/09 - HD today - Arrange for Ancef to be given after dialysis 3 times a week for 2 weeks, discussed with Dr. Mccoy - Discharge later today if antibiotic arrangements have been set up 12/08 - Left leg cellulitis: IV antibiotics switched over to Ancef, probiotics per ID - Continue dialysis per nephrology - Discharge planning - Continue Brilinta, statin, aspirin 12/07 - Leg CT with diffuse subcutaneous soft tissue edema related to cellulitis and extensive multifocal narrowing of the tibioperoneal trunk and distal branches as above - Start vancomycin and Rocephin, procalcitonin negative with elevated CRP, will touch base with infectious disease 12/06 - Regulate volume status with HD, per nephrology - Continue aspirin, Brilinta, Lipitor, Zetia, follow-up with his contract attorney at [facility] (Dr. Crawford) - Lower extremity venous study without evidence of clot, CT scan on 831 with severe swelling likely related to venous stasis or cellulitis - States he had a CTA which did not reveal any significant blockages in the left extremity - Resume home blood pressure medications including telmisartan, atenolol - Now on Requip - Assesment/Plan 1. Respiratory distress secondary to acute hypoxic respiratory failure; HD per Nephrology 2. NSTEMI-possibly Type II [place]-CAD status post CABG; monitor troponins. cardiology consulted 3. Hypertension; antihypertensives titrated. Continue home medications and titrate as needed 4. Hyperlipidemia; continue statin 5. ESRD on hemodialysis; monitor renal parameters. Nephrology consulted. 6. Type 2 DM; insulin sliding [id number] before every meal and at bedtime 7. Anemia of chronic kidney disease; monitor H&H closely GI/DVT prophylaxis Advanced directive full code Discharge Plan: Home Plan to discharge in: 48 Hours - Advance Directives Does patient have a Living Will: No Does patient have a Durable POA for Healthcare: No - Code Status/Comfort Care Code Status: Full Code
--- NOTE | 2024-12-09 17:27 | P.DS ---
Admission Date: 12/05/24 Discharge Date: 12/10/24 Disposition: ROUTINE DISCHARGE Reason for Admission: SOB Brief History of Present Illness: 49 yrs old Male with past medical history of hypertension, hyperlipidemia, diabetes, gastroparesis, ESRD on dialysis, cataract, CAD status post CABG who was brought To ER with shortness of breath and generalized weakness. Patient states that he did not go for dialysis last 2 times because of diarrhea and abdominal discomfort. Denies any chest pain. No fever or chills. No nausea vomiting diarrhea. Patient was assessed in the ER and is admitted for further management of fluid overload. Upon admission nephrology was consulted and his regular dialysis sessions were reviewed. He shortness of breath improved over the course of his stay. His hospital stay was complicated with leg pain for which CT scan of the leg revealed diffuse subcutaneous soft tissue edema related to cellulitis and extensive multifocal narrowing of the tibioperoneal trunk and distal branches. Infectious disease was consulted and he was started on IV Ancef. He will complete his IV Ancef course with dialysis he is to follow-up with the vascular surgeon to address the peripheral arterial disease. He is medically optimized for discharge Hospital Course: Physical Examination - Vital Signs Reviewed - Physical Exam General: Alert, Oriented x3, Mild distress Respiratory: basilar crackles/rales Cardiovascular: Regular rate/rhythm, Normal S1 S2 Gastrointestinal: Soft and benign, W/out hepatosplenomegaly Musculoskeletal: muscular atrophy Integumentary: No rashes Neurological: no focal deficits Extremities: no C/C/E Assessment and Plan 12/09 - HD today - Arrange for Ancef to be given after dialysis 3 times a week for 2 weeks, discussed with Dr. Mccoy - Discharge later today if antibiotic arrangements have been set up 12/08 - Left leg cellulitis: IV antibiotics switched over to Ancef, probiotics per ID - Continue dialysis per nephrology - Discharge planning - Continue Brilinta, statin, aspirin 12/07 - Leg CT with diffuse subcutaneous soft tissue edema related to cellulitis and extensive multifocal narrowing of the tibioperoneal trunk and distal branches as above - Start vancomycin and Rocephin, procalcitonin negative with elevated CRP, will touch base with infectious disease 12/06 - Regulate volume status with HD, per nephrology - Continue aspirin, Brilinta, Lipitor, Zetia, follow-up with his uc architect at [facility] (Dr. Crawford) - Lower extremity venous study without evidence of clot, CT scan on 831 with severe swelling likely related to venous stasis or cellulitis - States he had a CTA which did not reveal any significant blockages in the left extremity - Resume home blood pressure medications including telmisartan, atenolol - Now on Requip - Assesment/Plan 1. Respiratory distress secondary to acute hypoxic respiratory failure; HD per Nephrology 2. NSTEMI-possibly Type II [place]-CAD status post CABG; monitor troponins. cardiology consulted 3. Hypertension; antihypertensives titrated. Continue home medications and titrate as needed 4. Hyperlipidemia; continue statin 5. ESRD on hemodialysis; monitor renal parameters. Nephrology consulted. 6. Type 2 DM; insulin sliding [id number] before every meal and at bedtime 7. Anemia of chronic kidney disease; monitor H&H closely GI/DVT prophylaxis Advanced directive full code Discharge Plan: Home Plan to discharge in: 48 Hours - Advance Directives Does patient have a Living Will: No Does patient have a Durable POA for Healthcare: No - Code Status/Comfort Care Code Status: Full Code Vital Signs/Physical Exam: Temp Pulse Resp BP Pulse Ox 97.7 F 74 16 141/66 H 90 L 12/09/24 08:00 12/09/24 08:00 12/09/24 08:00 12/09/24 08:00 12/09/24 08:00 Laboratory Data at Discharge: WBC 5.20 thou/uL (4.3-10.9) 12/08/24 07:42 Hgb 9.6 g/dL (13.6-17.9) L 12/08/24 07:42 Hct 28.9 % (39.6-49.0) L 12/08/24 07:42 Plt Count 157 thou/uL (152-406) 12/08/24 07:42 Sodium 137 mEq/L (136-145) 12/09/24 07:45 Potassium 4.0 mEq/L (3.5-5.1) 12/09/24 07:45 BUN 30 mg/dL (7-18) H 12/09/24 07:45 Creatinine 5.94 mg/dL (0.70-1.30) H 12/09/24 07:45 Glucose 190 mg/dL (74-106) H 12/09/24 07:45 Phosphorus 5.5 mg/dL (2.5-4.9) H 12/09/24 07:45 Total Bilirubin 0.8 mg/dL (0.2-1.0) 12/08/24 07:42 AST < 10 U/L (15-37) L 12/08/24 07:42 ALT < 14 U/L (16-61) L 12/08/24 07:42 Alkaline Phosphatase 140 U/L (45-117) H 12/08/24 07:42 Home Medications: Aspirin [Aspirin EC 81 MG] 81 mg PO DAILY 12/18/21 Atorvastatin Calcium 1 tab PO BEDTIME 04/24/22 Promethazine Tab [Phenergan*] 25 mg PO Q6HP PRN #30 tab 11/26/22 ALPRAZolam [Xanax*] 1 mg PO DAILY 03/07/23 Ezetimibe 10 mg PO DAILY 03/07/23 Hyoscyamine Sulfate [Levsin-Sl] 0.125 mg SL Q6H 03/07/23 Insulin Aspart [Novolog Flexpen] 20 unit SQ TID 03/07/23 Ropinirole HCl 4 mg PO BEDTIME PRN 03/07/23 Sevelamer Carbonate [Renvela] 1 tab PO TID 03/07/23 Ticagrelor [Brilinta*] 90 mg PO BID 03/07/23 Hydrocodone 10/APAP 325 [[place] 10/325*] 1 tab PO Q6H PRN #30 tab 11/17/24 Followup: Beverly James, PAC [Primary Care Provider] - 1-2 Weeks
[2024-12-09 17:45] VITALS: BP 127/74; TEMP 98.3
--- NOTE | 2024-12-09 20:10 | P.PN ---
Date of Service: 12/09/24 Vital Signs Temp Pulse Resp BP Pulse Ox 98.3 F 66 20 127/74 98 12/09/24 16:00 12/09/24 16:00 12/09/24 16:00 12/09/24 16:00 12/09/24 16:00 Assessment/ Plan: Nephrology Progress Note No Dyspnea No Chest Pain No Acute Events Overnight Persistent Leg Pain Vital Signs, Medications, Blood Work, and Imaging reviewed in the chart NAD. NCAT. MMM. Neck Supple. Normal Respiratory Effort. RRR. Abd ND. No C/C. LE Edema 1-2+. No Rash. AAO. Normal Speech. EXAMINATION: ONE VIEW CHEST XR CLINICAL INDICATION: SOB TECHNIQUE: Frontal chest projection is submitted. Examination is limited by patient positioning and technique. COMPARISON: 11/10/2024 FINDINGS: Mild/moderate bilateral pulmonary opacities likely pulmonary edema. The heart is moderately enlarged in size. Sternotomy wires. Changes of prior CABG. IMPRESSION: Moderate CHF versus volume overload. Assessment & Plan ESRD on HD TTS -HD TIW -HD today HTN with CKD/ CHF -Continue Atenolol -Continue Telmisartan Diastolic CHF, A/C Peripheral Edema -Low sodium diet -UF with HD DM II with CKD & Polyneuropathy -RISS Anemia in CKD -Retacrit qHD CKD MBD Secondary HyperParathyroidism -Continue Renvela LLE Cellulitis -Continue Abx -Will arrange for Ancef at dialysis Hospitalist note reviewed Case reviewed with Dr. Lee
== END 2024-12-09 18:05 | disposition home or self-care (01) | DRG 640 ==
LOC: ER 20:39 → ERHOLD 12-05 01:16 → 2ND 12-05 02:26
PROVIDERS: ADMIT Family Medicine; ATTEND Family Medicine
PROC: 5A1D70Z Performance of Urinary Filtration, Intermittent, Less than 6 Hours Per Day (ICD-10-PCS; principal; 2024-12-05)
DX: E87.70 Fluid overload, unspecified (principal); I21.A1 Myocardial infarction type 2; J96.01 Acute respiratory failure with hypoxia; N18.6 End stage renal disease; I50.33 Acute on chronic diastolic (congestive) heart failure; I13.2 Hypertensive heart and chronic kidney disease with heart failure and with stage 5 chronic kidney disease, or end stage renal disease; L03.116 Cellulitis of left lower limb; E11.22 Type 2 diabetes mellitus with diabetic chronic kidney disease; E11.42 Type 2 diabetes mellitus with diabetic polyneuropathy; D63.1 Anemia in chronic kidney disease; E78.5 Hyperlipidemia, unspecified; K21.9 Gastro-esophageal reflux disease without esophagitis; I25.10 Atherosclerotic heart disease of native coronary artery without angina pectoris; Z99.2 Dependence on renal dialysis; Z79.4 Long term (current) use of insulin; Z95.1 Presence of aortocoronary bypass graft; Z88.8 Allergy status to other drugs, medicaments and biological substances; Z79.82 Long term (current) use of aspirin; Z79.899 Other long term (current) drug therapy; Z91.158 Patient's noncompliance with renal dialysis for other reason
CPT/HCPCS: 36415; 71045; 72193; 73701; 80048; 80053; 80069; 80076; 82947; 83880; 84145; 84484; 85025; 85379; 86140; 90935; 93005; 93971; 94640; 94760; 96374; 99285; J0690; J0696; J1644; J1815; J1885; J2405; J3373; J7040; J7613; P9047; Q0169; Q5106; Q9967

== ENCOUNTER 2024-12-29 07:57 | Day surgery (SDC) | payer OTHER ==
[2024-12-29 09:10] LABS: PT Prothrombin Time 14.6 SECONDS (10-13.0); PTT, Activated Partial Thromb 33.1 SECONDS (27.2-37.4); Protime INR 1.3
[2024-12-29 09:57] VITALS: BMI 32.5
[2024-12-29] MEDS: ALBUMIN HUMAN 25% 300 ML IV ONE (11:05)
--- NOTE | 2024-12-29 11:19 | RAD REPORT ---
PROCEDURE: Paracentesis Proc Guidance CLINICAL INDICATION: Renal disease with ascites TECHNIQUE: The risks, benefits and alternatives to the procedure explained to the patient and informed consent o btained. The skin and deeper tissues anesthetized with lidocaine. Under sonographic guidance an 8.3 Spanish catheter was advanced into the left lower quadrant. 6.9 L of right fluid removed. Patient experienced no immediate consultation. IMPRESSION: Paracentesis. The fluid is bloody similar to the November 17, [address] Mayorga's nurse Rickey was not ified by me of this finding at 10:30 AM December 29, 2024. The patient was still in the radiology department.
[2024-12-29 11:45] VITALS: BP 142/78; TEMP 97; O2SAT 96
== END 2024-12-29 12:08 | disposition home or self-care (01) ==
LOC: DS 07:57
PROVIDERS: ATTEND Internal Medicine
DX: R18.8 Other ascites (principal); N18.9 Chronic kidney disease, unspecified
CPT/HCPCS: 36415; 49083; 85610; 85730; 96365; P9047